=== PATIENT | female | born 1960 | race African-American/Black ===

== ENCOUNTER → 2020-01-21 15:13 | Outpatient (BNVA) | payer OTHER, SELFPAY | PROVIDERS: PCP Nurse Practitioner Family; Referring Provider Nurse Practitioner Family; Visit Provider Student in an Organized Health Care Education/Training Program | DX: M79.7 Fibromyalgia (principal) | CPT/HCPCS: 99214 ==

== ENCOUNTER 2020-01-24 10:21 | Outpatient (REF) | payer OTHER, SELFPAY ==
[2020-01-24 12:37] LABS: Glucose Urine UA NEG (NEG); Leukocyte Esterase Urine NEG (NEG); Nitrite Urine NEG (NEG); PH 5.5 (5.0-8.0); Specific Gravity - Urine >= 1.030 (1.005-1.025); Urine Blood NEG (NEG); Urine Ketones NEG (NEG); Urine Protein NEG (NEG-TRACE)
[2020-01-24 12:41] LABS: Appearance Urine CLEAR; Color Urine YELLOW
[2020-01-24 12:41] LABS: Basophils Absolute Auto 0.1 X10*3/uL (0.0-0.2); Basophils Percent Auto 1.2 % (0-2); Eosinophils Absolute Auto 0.3 X10*3/uL (0.0-0.4); Eosinophils Percent Auto 5.5 % (0-4); Hematocrit 40.7 % (37-47); Hemoglobin 12.7 g/dl (12.0-16.0); Imm Gran Abs Auto 0.02 X10*3/uL (0.00-0.03); Imm Gran Pct Auto 0.3 % (0.0-0.4); Lymphocytes Absolute Auto 2.4 X10*3/uL (1.2-4.9); Lymphocytes Percent Auto 40.9 % (20-40); MANUAL DIFF FLAG NO; Mean Corpuscular HGB Conc 31.2 g/dl (31.0-35.0); Mean Corpuscular Hemoglobin 30.2 pg (27.0-33.0); Mean Corpuscular Volume 96.9 fL (80-98); Mean Platelet Volume 10.4 fL (9.4-12.3); Monocytes Absolute Auto 0.6 X10*3/uL (0.1-1.2); Monocytes Percent Auto 9.6 % (2-11); Neutrophils Absolute Auto 2.5 X10*3/uL (2.0-8.3); Neutrophils Percent Auto 42.5 % (45-73); Platelet Count 292 X10*3/uL (160-400); Red Cell Distribution Width 14.4 % (11.0-16.0); White Blood Count 5.8 X10*3/uL (4.8-10.8)
[2020-01-24 12:57] LABS: RBC Urine 0 /HPF (0); Squamous Epithelial Cell Urine 1+ /LPF; WBC Urine 0-2 /HPF (0-4)
[2020-01-24 13:06] LABS: Creatinine Urine 106.97 mg/dL; Protein/Creatinine Ratio, Ur 0.09 (<0.2); Total Protein Urine Random 10 mg/dL (<12)
[2020-01-24 13:08] LABS: Creatinine Urine 106.56 mg/dL; Microalbum/Creatinine Ratio Ur 23.4 ug/mg cr; Total Protein Urine Random 10 mg/dL (<12)
[2020-01-24 13:41] LABS: Anion Gap 18 (12-20); Blood Urea Nitrogen 19 mg/dL (9-16); Calcium 9.7 mg/dL (8.4-10.2); Carbon Dioxide 25 mmol/L (22-29); Chloride 102 mmol/L (96-108); Estimated Glomerular Filt Rate 60; Magnesium 1.8 mg/dL (1.6-2.6); Phosphorus 3.4 mg/dL (2.7-4.5); Potassium 4.8 mmol/l (3.3-5.1); Sodium 140 mmol/L (135-145)
[2020-01-24 14:03] LABS: Vitamin D 25-OH Total 45.9 ng/mL (>30)
[2020-01-24 14:45] LABS: Renal w Reflex Lab Use Only Order verified
[2020-01-27 14:56] LABS: Complement C3 211 mg/dL (83-193); IgA 252 mg/dL (47-310); IgG 1105 mg/dL (600-1640); IgM 63 mg/dL (50-300)
[2020-01-27 20:21] LABS: Calcium (PTHI) 10.2 mg/dL (8.6-10.4); PTHI 17 pg/mL (14-64)
[2020-01-28 11:22] LABS: Anti Nuclear Antibody Screen NEGATIVE (NEGATIVE)
[2020-01-28 14:53] LABS: ANA Additional Testing NOT INDICATED
== END 2020-01-24 10:22 | disposition home or self-care (01) ==
LOC: HO.LAB 10:21
PROVIDERS: Visit Provider Internal Medicine Nephrology
DX: E11.22 Type 2 diabetes mellitus with diabetic chronic kidney disease (principal); N18.30 Chronic kidney disease, stage 3 unspecified; E78.5 Hyperlipidemia, unspecified; R94.4 Abnormal results of kidney function studies
CPT/HCPCS: 36415; 80051; 81001; 81003; 81015; 82040; 82043; 82306; 82310; 82565; 82784; 83735; 83970; 84100; 84156; 84520; 85025; 86038; 86039; 86160; 86334

== ENCOUNTER 2020-03-10 16:23 | Outpatient (REF) | payer OTHER, SELFPAY ==
[2020-03-10 16:51] LABS: Basophils Absolute Auto 0.1 X10*3/uL (0.0-0.2); Eosinophils Absolute Auto 0.3 X10*3/uL (0.0-0.4); Eosinophils Percent Auto 4.5 % (0-4); Hematocrit 39.3 % (37-47); Hemoglobin 12.2 g/dl (12.0-16.0); Imm Gran Abs Auto 0.07 X10*3/uL (0.00-0.03); Imm Gran Pct Auto 1.1 % (0.0-0.4); Lymphocytes Absolute Auto 2.6 X10*3/uL (1.2-4.9); Lymphocytes Percent Auto 41.7 % (20-40); MANUAL DIFF FLAG NO; Mean Corpuscular Hemoglobin 30.6 pg (27.0-33.0); Mean Corpuscular Volume 98.5 fL (80-98); Mean Platelet Volume 9.6 fL (9.4-12.3); Monocytes Absolute Auto 0.6 X10*3/uL (0.1-1.2); Monocytes Percent Auto 9.1 % (2-11); Neutrophils Absolute Auto 2.7 X10*3/uL (2.0-8.3); Neutrophils Percent Auto 42.6 % (45-73); Platelet Count 262 X10*3/uL (160-400); Red Blood Count 3.99 X10*6/uL (4.20-5.50); Red Cell Distribution Width 13.9 % (11.0-16.0); White Blood Count 6.3 X10*3/uL (4.8-10.8)
[2020-03-10 16:57] LABS: INTERNATIONAL NORM RATIO 1.1 (0.9-1.1)
[2020-03-10 17:22] LABS: Alanine Aminotransferase 28 U/L (0-31); Albumin Level 4.7 g/dL (3.5-5.0); Alkaline Phosphatase 89 U/L (39-117); Anion Gap 15 (12-20); Aspartate Amino Transferase 33 U/L (5-31); Bilirubin Total 0.3 mg/dL (0.0-1.0); Blood Urea Nitrogen 20 mg/dL (9-16); Calcium 9.4 mg/dL (8.4-10.2); Carbon Dioxide 23 mmol/L (22-29); Chloride 105 mmol/L (96-108); Estimated Glomerular Filt Rate > 60; Glucose Random 96 mg/dL (60-115); Iron 103 mcg/dL (30-160); Percent Iron Saturation 18 % (15-50); Potassium 4.8 mmol/l (3.3-5.1); Sodium 138 mmol/L (135-145); Total Iron Binding Capacity 582 mcg/dL (228-428); Total Protein 7.9 g/dL (6.5-8.0); Unsaturated Iron Binding 479 ug/dL
[2020-03-10 17:48] LABS: Ferritin 73 ng/mL (10-250)
== END 2020-03-10 16:24 | disposition home or self-care (01) ==
LOC: HO.LAB 16:23
PROVIDERS: Visit Provider Internal Medicine Gastroenterology
DX: K75.81 Nonalcoholic steatohepatitis (NASH) (principal)
CPT/HCPCS: 36415; 80053; 82728; 83540; 85025; 85610

== ENCOUNTER → 2020-03-12 08:31 | Outpatient (BNVA) | payer OTHER, SELFPAY | PROVIDERS: Visit Provider Internal Medicine Gastroenterology | DX: K21.9 Gastro-esophageal reflux disease without esophagitis (principal); R13.14 Dysphagia, pharyngoesophageal phase; K58.9 Irritable bowel syndrome, unspecified; K75.81 Nonalcoholic steatohepatitis (NASH); F17.210 Nicotine dependence, cigarettes, uncomplicated; Z86.010 Personal history of colon polyps; Z79.899 Other long term (current) drug therapy; Z79.84 Long term (current) use of oral hypoglycemic drugs | CPT/HCPCS: Q3014 ==

== ENCOUNTER 2020-04-20 07:57 | Outpatient (REF) | payer OTHER, SELFPAY ==
--- NOTE | 2020-04-20 | MM_ITS ---
EXAMINATION: MM SCREENING DIGITAL BREAST TOMOSYNTHESIS, BILATERAL CLINICAL INFORMATION: Screening. Asymptomatic. The lifetime risk of breast cancer based on the Tyrer-Cuzick Model is 5%. COMPARISON: Mammography: 11/22/2018, 11/13/2018, 03/01/2012 TECHNIQUE: Digital breast tomosynthesis is performed in both the craniocaudal and mediolateral oblique views along with computer-aided detection (CAD). Synthesized 2D images are generated from the tomosynthesis. FINDINGS: There are scattered areas of fibroglandular density (ACR BI-RADS breast composition Category b). There are no significant masses, abnormal calcifications, or other abnormalities. Parenchymal pattern similar to prior studies. The axilla are unremarkable. MM/MM tomosynthesis screening BI IMPRESSION: No mammographic evidence of malignancy. ASSESSMENT: BI-RADS 1: Negative RECOMMENDATION: Routine annual mammography screening. This patient's information was entered into a reminder system with a target due date for their next mammogram.
== END 2020-04-20 07:58 | disposition home or self-care (01) ==
LOC: HO.MAMMO 07:57
PROVIDERS: Visit Provider Advanced Practice Midwife
DX: Z12.31 Encounter for screening mammogram for malignant neoplasm of breast (principal)
CPT/HCPCS: 77063; 77067

== ENCOUNTER → 2020-05-15 15:47 | Outpatient (BNVA) | payer OTHER, SELFPAY | PROVIDERS: Visit Provider Urology | DX: R39.12 Poor urinary stream (principal); R39.11 Hesitancy of micturition | CPT/HCPCS: 51798; 99202 ==

== ENCOUNTER 2020-05-29 11:20 | Outpatient (REF) | payer OTHER, SELFPAY ==
--- NOTE | ~2020-05-29 | XR_ITS ---
EXAMINATION: XR SHOULDER, RIGHT CLINICAL INFORMATION: Pain COMPARISON: None TECHNIQUE: AP external rotation, Grashey, scapular Y, and axillary views of the right shoulder. FINDINGS: The bones and soft tissues are normal. No fracture. Glenohumeral and acromioclavicular alignment is anatomic with normal joint space. No abnormal soft tissue calcifications. XR/XR shoulder RT min 2V IMPRESSION: Normal right shoulder.
== END 2020-05-29 11:21 | disposition home or self-care (01) ==
LOC: HO.XRAY 11:20
PROVIDERS: PCP Family Medicine; Visit Provider Family Medicine
DX: M25.511 Pain in right shoulder (principal)
CPT/HCPCS: 73030

== ENCOUNTER → 2020-06-25 08:48 | Outpatient (BNVA) | payer OTHER, SELFPAY | PROVIDERS: PCP Family Medicine; Visit Provider Urology | DX: R39.12 Poor urinary stream (principal); R33.9 Retention of urine, unspecified | CPT/HCPCS: 51798; 52000; 81002; 99212 ==

== ENCOUNTER → 2020-07-02 09:11 | Outpatient (BNVA) | payer OTHER, SELFPAY | PROVIDERS: PCP Nurse Practitioner Family; Referring Provider Nurse Practitioner Family; Visit Provider Internal Medicine Gastroenterology | DX: R13.14 Dysphagia, pharyngoesophageal phase (principal); K58.9 Irritable bowel syndrome, unspecified; K21.9 Gastro-esophageal reflux disease without esophagitis; K75.81 Nonalcoholic steatohepatitis (NASH); Z86.010 Personal history of colon polyps; Z79.899 Other long term (current) drug therapy | CPT/HCPCS: 99212 ==

== ENCOUNTER 2020-07-30 09:59 | Outpatient (REF) | payer OTHER, SELFPAY ==
[2020-07-30 11:04] LABS: Blood Urea Nitrogen 30 mg/dL (9-16); C Reactive Protein 0.21 mg/dL (< or = 0.50); Estimated Glomerular Filt Rate 44
[2020-07-30 12:25] LABS: Erythrocyte Sedimentation Rate 9 MM/HR (0-20)
== END 2020-07-30 10:00 | disposition home or self-care (01) ==
LOC: HO.LAB 09:59
PROVIDERS: PCP Family Medicine; Visit Provider Internal Medicine Gastroenterology
DX: K58.9 Irritable bowel syndrome, unspecified (principal)
CPT/HCPCS: 36415; 81479; 82397; 82565; 83520; 84520; 85652; 86140; 88346; 88350

== ENCOUNTER 2020-07-30 11:00 | Outpatient (RCR) | payer OTHER, SELFPAY | END 2020-08-05 17:59 | disposition home or self-care (01) | LOC: HO.PT 11:00 | PROVIDERS: PCP Family Medicine; Visit Provider Family Medicine | DX: M25.511 Pain in right shoulder (principal) | CPT/HCPCS: 97110; 97161 ==

== ENCOUNTER 2020-08-05 16:01 | Outpatient (REF) | payer OTHER, SELFPAY ==
[2020-08-05 16:47] LABS: Leukocytes Stool Qualitative NEGATIVE (NEGATIVE)
[2020-08-12 00:42] LABS: Calprotectin, Fecal 92 mcg/g
== END 2020-08-05 16:02 | disposition home or self-care (01) ==
LOC: HO.LNP 16:01
PROVIDERS: Visit Provider Internal Medicine Gastroenterology
DX: K58.9 Irritable bowel syndrome, unspecified (principal)
CPT/HCPCS: 83993; 89055

== ENCOUNTER 2020-08-06 14:04 | Outpatient (REF) | payer OTHER, SELFPAY ==
--- NOTE | ~2020-08-06 | CT_ITS ---
EXAMINATION: CT ABDOMEN AND PELVIS WITH CONTRAST CLINICAL INFORMATION: Irritable bowel syndrome without diarrhea. COMPARISON: Previous abdominal ultrasound most recent 05/16/2019. TECHNIQUE: Multidetector volumetric images were obtained from the superior aspect of the liver through the pubic symphysis following administration 85 mL of Omnipaque 350 intravenous contrast. Sagittal and coronal reformatted images were obtained on the technologist's workstation. Oral contrast: Yes. This CT examination was performed using dose optimization techniques as appropriate, variously including the following: Automated exposure control. Adjustment of mA and/or kV according to patient size (this includes techniques or standardized protocols for targeted exams where dose is matched to indication/reason for exam; i.e. extremities or head). Use of iterative reconstruction technique. DLP: 524 mGy-cm FINDINGS: LUNG BASES: The visualized lung bases are unremarkable. LIVER, GALLBLADDER, AND BILIARY TREE: The liver is enlarged. The liver is low in attenuation suggestive of fatty infiltration. There is hypertrophy of the left lobe and caudate lobe questionable for mild cirrhotic changes. There is a calcification in the central liver near the junction of the medial segment of the left lobe and anterior segment of the right lobe. No other focal liver lesion is seen. The gallbladder has been removed. There is no biliary duct dilatation. PANCREAS: Unremarkable. SPLEEN: Unremarkable. ADRENAL GLANDS: Unremarkable. KIDNEYS AND URETERS: The kidneys are normal in size, shape, and attenuation. No hydronephrosis, hydroureter, or calculi seen. No perinephric stranding. BLADDER: Not optimally distended. GASTROINTESTINAL TRACT: There is diverticulosis of the colon. There is stool throughout the colon questionable for constipation. Small and large bowel is otherwise unremarkable. The appendix is normal. The stomach is normal. ABDOMINAL WALL: There is diastasis of the rectus muscles and small umbilical and infraumbilical hernia containing fat. LYMPH NODES: Normal. VASCULAR: Unremarkable. PELVIC VISCERA: There are prominent pelvic vessels questionable for pelvic congestion. Uterus and adnexa are otherwise unremarkable. OSSEOUS STRUCTURES: There are degenerative changes of the spine. CT/CT abdomen pelvis w con IMPRESSION: Enlarged fatty liver with changes of mild cirrhosis. Diverticulosis and large amount of stool in the colon suggestive of constipation. Prominent pelvic vessels questionable for pelvic congestion. Abdominal wall hernias.
[2020-08-06] MEDS: iohexoL 350 MG/ML 100 ML INFUS..BTL IV (16:55)
== END 2020-08-06 14:05 | disposition home or self-care (01) ==
LOC: HO.CT 14:04
PROVIDERS: PCP Family Medicine; Visit Provider Internal Medicine Gastroenterology
DX: K58.9 Irritable bowel syndrome, unspecified (principal); K75.81 Nonalcoholic steatohepatitis (NASH)
CPT/HCPCS: 74177; Q9967

== ENCOUNTER → 2020-08-27 11:12 | Outpatient (BNVA) | payer OTHER, SELFPAY | PROVIDERS: PCP Family Medicine; Visit Provider Urology | DX: Z13.89 Encounter for screening for other disorder (principal) | CPT/HCPCS: 99212 ==

== ENCOUNTER → 2020-09-10 12:58 | Outpatient (BNVA) | payer OTHER, SELFPAY | PROVIDERS: PCP Family Medicine; Referring Provider Family Medicine; Visit Provider Internal Medicine Gastroenterology | DX: K58.9 Irritable bowel syndrome, unspecified (principal); K75.81 Nonalcoholic steatohepatitis (NASH); K21.9 Gastro-esophageal reflux disease without esophagitis; R13.14 Dysphagia, pharyngoesophageal phase; Z86.010 Personal history of colon polyps | CPT/HCPCS: 99212 ==

== ENCOUNTER 2020-10-07 13:39 | Emergency (ER) | payer OTHER, SELFPAY ==
--- NOTE | 2020-10-07 | ECG_ITS ---
Test Reason : DIFF BREATHING Blood Pressure : / mmHG Vent. Rate : 127 BPM Atrial Rate : 127 BPM P-R Int : 136 ms QRS Dur : 072 ms QT Int : 308 ms P-R-T Axes : 051 016 033 degrees QTc Int : 447 ms Sinus tachycardia Possible Left atrial enlargement Cannot rule out Anterior infarct , age undetermined Abnormal ECG When compared with ECG of 18-MAY-2019 08:35, Vent. rate has increased BY 72 BPM T wave amplitude has decreased in Lateral leads Referred By: Generic ED Physician Electronically Signed By:LISA JARRETT
--- NOTE | ~2020-10-07 | XR_ITS ---
EXAMINATION: XR CHEST CLINICAL INFORMATION: Shortness of breath COMPARISON: Previous chest x-ray most recent May 2019 TECHNIQUE: 2 views of the chest were obtained. FINDINGS: The cardiac and mediastinal contours are stable. The lungs are clear. There is no pleural effusion or pneumothorax. There is a thoracic scoliosis convex to the left. There are postsurgical changes to the cervical spine. XR/XR chest 2V IMPRESSION: No evidence for acute disease in the chest.
[2020-10-07 13:42] VITALS: BP 183/86; PULSE 135; RESP 24; TEMP 37.7; O2SAT 86; BMI 32.2
--- NOTE | 2020-10-07 13:57 | ED_ITS ---
HPI - SOB/Dyspnea General Chief Complaint: Dyspnea Stated Complaint: DIFF BREATHING Time Seen by Provider: 10/07/20 13:57 Source: patient Mode of arrival: ambulatory Limitations: no limitations History of Present Illness HPI Narrative: Increasing shortness of breath for 3 days, now wheezing getting worse. Patient is a smoker, Never been told that she has COPD. Patient is vaccinated. MD elicited complaint: shortness of breath and cough Onset (ago): day(s) Timing: constant Severity: moderate Exacerbating factors: exertion Relieving factors: rest Associated symptoms: cough and wheezing Related Data Home Medications Medication Instructions Recorded Confirmed atorvastatin 40 mg tablet 40 mg PO DAILY 01/21/20 09/10/20 duloxetine 30 mg capsule,delayed 30 mg PO DAILY 01/21/20 09/10/20 release fenofibrate micronized 134 mg 134 mg PO DAILY 01/21/20 09/10/20 capsule hydroxyzine HCl 25 mg tablet 25 mg PO TID PRN 01/21/20 09/10/20 lisinopril 2.5 mg tablet 2.5 mg PO DAILY 01/21/20 09/10/20 metformin 1,000 mg tablet 1,000 mg PO BID 01/21/20 09/10/20 vitamin E (dl, acetate) 400 unit 400 unit PO DAILY 01/21/20 09/10/20 capsule albuterol sulfate 90 mcg/actuation 2 puff PO Q4-6H PRN 06/25/20 09/10/20 aerosol inhaler blood sugar diagnostic #10 ea 06/25/20 09/10/20 cholecalciferol (vitamin D3) 50 50 mcg PO DAILY 06/25/20 09/10/20 mcg (2,000 unit) capsule diclofenac sodium 1 % topical gel 2 g TOPICAL QID 06/25/20 09/10/20 guaifenesin 600 mg tablet, 600 mg PO Q12H PRN 06/25/20 09/10/20 extended release 12 hr hydroxyzine HCl 50 mg tablet 50 mg PO BID PRN 06/25/20 09/10/20 metformin 500 mg tablet 500 mg PO BID 06/25/20 09/10/20 mirtazapine 45 mg tablet 45 mg PO BEDTIME 06/25/20 09/10/20 nicotine 21 mg/24 hr daily 1 patch TOPICAL DAILY 06/25/20 09/10/20 transdermal patch omeprazole 20 mg capsule,delayed 20 mg PO BID 06/25/20 09/10/20 release tizanidine 2 mg tablet 6 mg PO Q12H PRN 06/25/20 09/10/20 simethicone 125 mg chewable tablet 250 mg PO BID PRN 07/02/20 09/10/20 duloxetine 60 mg capsule,delayed mg PO 08/27/20 09/10/20 release ibuprofen 600 mg tablet 600 mg PO QID PRN 08/27/20 09/10/20 quetiapine 25 mg tablet 25 mg PO BEDTIME 08/27/20 09/10/20 quetiapine 50 mg tablet 50 mg PO BEDTIME 08/27/20 09/10/20 sennosides 8.6 mg tablet 17.2 mg PO BEDTIME PRN 08/27/20 09/10/20 vitamin E (dl, acetate) 45 mg (100 0 mg PO 08/27/20 09/10/20 unit) capsule Previous Rx's Medication Instructions Recorded terazosin 1 mg capsule 1 mg PO BEDTIME 30 Days #30 cap 05/15/20 pregabalin 75 mg capsule 75 mg PO TID #90 cap 07/24/20 sennosides 8.6 mg capsule 17.2 mg PO BID PRN 30 Days #60 cap 08/13/20 ondansetron HCl 8 mg tablet 8 mg PO Q12H 30 Days #60 tab 08/24/20 bethanechol chloride 50 mg tablet 50 mg PO BID 90 Days #180 tab 08/27/20 dicyclomine 20 mg tablet 20 mg PO TID 30 Days #90 tab 09/09/20 hyoscyamine sulfate 0.125 mg 0.25 mg PO TID-QID PRN 30 Days #60 09/10/20 sublingual tablet tab omeprazole magnesium 20 mg 20 mg PO BID 30 Days #60 cap 09/14/20 capsule,delayed release methylcellulose (laxative) 500 mg 1,000 mg PO DAILY 30 Days #60 tab 09/22/20 tablet albuterol sulfate 2 puff INHALATION Q4-6H PRN #8.5 g 10/07/20 prednisone 60 mg PO DAILY #12 tab 10/07/20 Allergies Allergy/AdvReac Type Severity Reaction Status Date / Time oxycodone [Percocet] Allergy Intermediate Itching Verified 10/07/20 13:41 Vicodin Allergy Intermediate itching Uncoded 01/21/20 15:29 Review of Systems Constitutional: Constitutional: Reports no additional constitutional complai nts Eyes: Eyes: Reports no additional eye complaints ENT: Denies dizziness Cardiovascular: Cardiovascular: Reports no additional cardiovascular complaints Respiratory: Respiratory: Reports as per HPI Gastrointestinal: Gastrointestinal: Reports no additional gastrointestinal complaints Genitourinary: Genitourinary: Reports no additional female genitourinary complaints Musculoskeletal: Musculoskeletal: Reports no additional musculoskeletal complaints Integumentary/Breasts: Skin/Breast: Denies rash Neurologic: Reports system reviewed and no additional complaints, except as documented, Denies dizziness and Denies Sensory deficit (Neuro) Psychiatric: Psychiatric: Denies anxiety PMFSH Past Medical History Medical History Depression Diabetes mellitus Fibromyalgia Hx of hereditary disease Surgical History History of colonoscopy Hx of cholecystectomy Hx of endoscopy Hx of total knee replacement Hx of tubal ligation Family History Family History Father History of heart attack Hx of type 1 diabetes mellitus Mother Alive and well Social History Social History Household Members: Spouse Housing: Apartment Alcohol intake: never Cigarettes Per Day: 4 Smoked in Last 30 Days: No Use of substances other than those prescribed or required for medical reasons: No Advance Directives: No Advance Directives Information Provided: No Patient : No Physical Exam Vital Signs: Vital Signs: Last Vital Signs Temp 99.8 F 10/07/20 13:42 Pulse 124 H 10/07/20 15:43 Resp 24 H 10/07/20 13:42 BP 183/86 H 10/07/20 13:42 Pulse Ox 86 L 10/07/20 13:42 Body Mass Index 32.2 Const: Other: short of breath Nutritional Appearance: overweight Orientation/consciousness: oriented to person and patient oriented x3 Limitations: no limitations HENMT: Head: Yes normal to inspection Ears: external ears normal General nose exam: Normal external nose present Mouth: Normal oral and palatal mucosa present and oropharynx normal Throat: Yes posterior oropharynx normal Eyes: General: appearance normal, both eyes and all related structures Neck: Other: supple Neck: Yes normal visual inspection Chest: Chest palpation & inspection: normal inspection of the chest Resp: Other: diffuse wheezing Cardio: Jugular venous distension: no JVD Rate: regular rate Rhythm: regular rhythm Heart sounds: S1 normal heart sound present and S2 normal heart sound present GI: Inspection: Yes normal to inspection Palpation (GI): Soft to palpation, nontender and No hepatosplenomegaly present Auscultation: normal bowel sounds : General: Yes no CVA tenderness Back/Spine/Pelvis: Back: no CVA tenderness Skin: General skin exam: no rashes or lesions noted Neuro: General: oriented to person and patient oriented x3 Cranial nerves: Yes CN's II-XII intact bilaterally Motor exam (neuro): 5/5 motor strength present throughout Sensory Exam: No Sensory deficit (Neuro) Extrem: General: Yes normal to inspection Psych: Appearance: grossly normal Course Reevaluation(s) Reevaluation #1: moving better air but worse wheezing Time: 15:17 Reevaluation #2: no wheeze will dc home Time: 16:13 MDM - SOB/Dyspnea Lab Data Result diagrams: 10/07/20 14:25 10/07/20 14:25 Labs: Lab Results 10/07/20 10/07/20 10/07/20 Range/Units 14:19 14:25 14:25 WBC 10.9 H (4.8-10.8) X10*3/uL RBC 3.93 L (4.20-5.50) X10*6/uL Hgb 11.5 L (12.0-16.0) g/dl Hct 36.3 L (37-47) % MCV 92.4 (80-98) fL MCH 29.3 (27.0-33.0) pg MCHC 31.7 (31.0-35.0) g/dl RDW 13.8 (11.0-16.0) % Plt Count 259 (160-400) X10*3/uL MPV 10.1 (9.4-12.3) fL Immature Gran % (Auto) 0.7 H (0.0-0.4) % Neut % (Auto) 75.7 H (45-73) % Lymph % (Auto) 14.3 L (20-40) % [place] % (Auto) 8.5 (2-11) % Eos % (Auto) 0.5 (0-4) % Baso % (Auto) 0.3 (0-2) % Lymph # (Auto) 1.6 (1.2-4.9) X10*3/uL [place] # (Auto) 0.9 (0.1-1.2) X10*3/uL Eos # (Auto) 0.1 (0.0-0.4) X10*3/uL Baso # (Auto) 0.0 (0.0-0.2) X10*3/uL Abs Immat Gran (auto) 0.08 H (0.00-0.03) X10*3/uL Absolute Neuts (auto) 8.3 (2.0-8.3) X10*3/uL Absolute Nucleated RBC 0.000 (0.0-0.012) X10*3/uL Nucleated RBC % (auto) 0.0 (0.0-0.2) /100WBC Sodium 142 (135-145) mmol/L Potassium 4.4 (3.3-5.1) mmol/L Chloride 110 H (96-108) mmol/L Carbon Dioxide 19 L (22-29) mmol/L Anion Gap 17 (12-20) BUN 23 H (9-16) mg/dL Creatinine 0.86 (0.5-1.4) mg/dL Estim Creat Clear Calc 71.7 Estimated GFR > 60 Random Glucose 128 H (60-115) mg/dL Calcium 9.9 (8.4-10.2) mg/dL Coronavirus (PCR) NEGATIVE (Negative) Influenza Type A (PCR) NEGATIVE (Negative) Influenza Type B (PCR) NEGATIVE (Negative) RSV RNA Qual (PCR) NEGATIVE (Negative) Imaging Data Chest x-ray: Radiologist's impression: IMPRESSION: No evidence for acute disease in the chest Discharge Plan Discharge Clinical Impression: Asthma with exacerbation Qualifiers: Asthma severity: moderate Asthma persistence: persistent Qualified Code(s): J45.41 - Moderate persistent asthma with (acute) exacerbation Patient Disposition: Home, Self-Care Instructions: Asthma (ED) Prescriptions: New albuterol sulfate 90 mcg/actuation HFA aerosol inhaler 2 puff inhalation Q4-6H PRN (Reason: shortness of breath or wheezing) Qty: 8.5 RF: 0 prednisone 20 mg tablet 60 mg PO DAILY Qty: 12 RF: 0 No Action pregabalin 75 mg capsule 75 mg PO TID Qty: 90 RF: 5 senna 8.6 mg capsule 17.2 mg PO BID PRN (Reason: constipation) 30 Days Qty: 60 RF: 3 ondansetron HCl 8 mg tablet 8 mg PO Q12H 30 Days Qty: 60 RF: 2 dicyclomine 20 mg tablet 20 mg PO TID 30 Days Qty: 90 RF: 0 omeprazole magnesium [Acid Experiential Therapist (omeprazole)] 20 mg capsule,delayed release(DR/EC) 20 mg PO BID 30 Days Qty: 60 RF: 4 Fiber Laxative (methylcellulo) 500 mg tablet 1,000 mg PO DAILY 30 Days Qty: 60 RF: 2 simethicone [Gas Relief (simethicone)] 125 mg tablet,chewable 250 mg PO BID PRNRF: 0 sennosides 8.6 mg tablet 17.2 mg PO BEDTIME PRN (Reason: constipation) RF: 0 ibuprofen 600 mg tablet 600 mg PO QID PRN (Reason: pain) RF: 0 quetiapine 50 mg tablet 50 mg PO BEDTIME RF: 0 duloxetine 60 mg capsule,delayed release(DR/EC) PO RF: 0 quetiapine 25 mg tablet 25 mg PO BEDTIME RF: 0 vitamin E (dl, acetate) 45 mg (100 unit) capsule 0 mg PO RF: 0 bethanechol chloride 50 mg tablet 50 mg PO BID 90 Days Qty: 180 RF: 1 hyoscyamine sulfate 0.125 mg tablet, sublingual 0.25 mg PO TID-QID PRN (Reason: dyspepsia) 30 Days Qty: 60 RF: 3 duloxetine 30 mg capsule,delayed release(DR/EC) 30 mg PO DAILY RF: 0 lisinopril 2.5 mg tablet 2.5 mg PO DAILY RF: 0 vitamin E (dl, acetate) 400 unit capsule 400 unit PO DAILY RF: 0 hydroxyzine HCl 25 mg tablet 25 mg PO TID PRNRF: 0 metformin 1,000 mg tablet 1,000 mg PO BID RF: 0 fenofibrate micronized 134 mg capsule 134 mg PO DAILY RF: 0 atorvastatin 40 mg tablet 40 mg PO DAILY RF: 0 terazosin 1 mg capsule 1 mg PO BEDTIME 30 Days Qty: 30 RF: 0 omeprazole 20 mg capsule,delayed release(DR/EC) 20 mg PO BID RF: 0 (DME) FreeStyle Lite Strips Strip See Rx Instructions ea Not Applicable BID Qty: 10 RF: 0 mirtazapine 45 mg tablet 45 mg PO BEDTIME RF: 0 hydroxyzine HCl 50 mg tablet 50 mg PO BID PRN (Reason: anxiety) RF: 0 tizanidine 2 mg tablet 6 mg PO Q12H PRNRF: 0 cholecalciferol (vitamin D3) 50 mcg (2,000 unit) capsule 50 mcg PO DAILY RF: 0 diclofenac sodium 1 % gel 2 g topical QID RF: 0 nicotine 21 mg/24 hr patch 24 hour 1 patch topical DAILY RF: 0 metformin 500 mg tablet 500 mg PO BID RF: 0 albuterol sulfate 90 mcg/actuation HFA aerosol inhaler 2 puff PO Q4-6H PRNRF: 0 guaifenesin 600 mg tablet extended release 12hr 600 mg PO Q12H PRNRF: 0 Referrals: Reina Farmer MD [Primary Care Provider] - 3 days
[2020-10-07] MEDS: Albuterol/Iprat 2.5/0.5MG 3 ML AMPUL.NEB INHALE (14:16)
[2020-10-07 14:20] VITALS: PULSE 128; O2SAT 91
[2020-10-07] MEDS: methylPREDNISolone Sod Succ 125 MG/2 ML VIAL IVPUSH (14:27)
[2020-10-07 14:33] LABS: MANUAL DIFF FLAG NO
[2020-10-07 14:34] LABS: Basophils Percent Auto 0.3 % (0-2); Eosinophils Absolute Auto 0.1 X10*3/uL (0.0-0.4); Eosinophils Percent Auto 0.5 % (0-4); Hematocrit 36.3 % (37-47); Hemoglobin 11.5 g/dl (12.0-16.0); Imm Gran Abs Auto 0.08 X10*3/uL (0.00-0.03); Imm Gran Pct Auto 0.7 % (0.0-0.4); Lymphocytes Absolute Auto 1.6 X10*3/uL (1.2-4.9); Lymphocytes Percent Auto 14.3 % (20-40); Mean Corpuscular HGB Conc 31.7 g/dl (31.0-35.0); Mean Corpuscular Hemoglobin 29.3 pg (27.0-33.0); Mean Corpuscular Volume 92.4 fL (80-98); Mean Platelet Volume 10.1 fL (9.4-12.3); Monocytes Absolute Auto 0.9 X10*3/uL (0.1-1.2); Monocytes Percent Auto 8.5 % (2-11); Neutrophils Absolute Auto 8.3 X10*3/uL (2.0-8.3); Neutrophils Percent Auto 75.7 % (45-73); Platelet Count 259 X10*3/uL (160-400); Red Blood Count 3.93 X10*6/uL (4.20-5.50); Red Cell Distribution Width 13.8 % (11.0-16.0); White Blood Count 10.9 X10*3/uL (4.8-10.8)
[2020-10-07 15:02] LABS: Anion Gap 17 (12-20); Blood Urea Nitrogen 23 mg/dL (9-16); Calcium 9.9 mg/dL (8.4-10.2); Carbon Dioxide 19 mmol/L (22-29); Chloride 110 mmol/L (96-108); Creatinine Clr Calc Pharmacy 71.7; Estimated Glomerular Filt Rate > 60; Glucose Random 128 mg/dL (60-115); Potassium 4.4 mmol/L (3.3-5.1); Sodium 142 mmol/L (135-145)
[2020-10-07 15:16] LABS: Influenza A PCR NEGATIVE (Negative); Influenza B PCR NEGATIVE (Negative); Resp Syncy Virus RNA Qual PCR NEGATIVE (Negative); SARS COV2 PCR INHOUSE NEGATIVE (Negative)
[2020-10-07] MEDS: Albuterol Sulfate (0.083%) 2.5 MG/3 ML VIAL.NEB 10 MG INHALE (15:39)
[2020-10-07 15:43] VITALS: PULSE 124; O2SAT 90
== END 2020-10-07 16:34 | disposition home or self-care (01) ==
PROVIDERS: Emergency Provider Emergency Medicine; PCP Family Medicine
DX: J45.41 Moderate persistent asthma with (acute) exacerbation (principal); R00.0 Tachycardia, unspecified; E11.9 Type 2 diabetes mellitus without complications; Z79.84 Long term (current) use of oral hypoglycemic drugs; Z79.899 Other long term (current) drug therapy; Z20.822 Contact with and (suspected) exposure to COVID-19
CPT/HCPCS: 0241U; 36415; 71046; 80048; 85025; 93005; 94640; 94644; 96374; 99284; J2930

== ENCOUNTER 2020-10-16 16:35 | Inpatient (IN) | payer OTHER, SELFPAY ==
--- NOTE | ~2020-10-16 | CT_ITS ---
EXAMINATION: CT ANGIOGRAM OF THE CHEST WITH AND WITHOUT CONTRAST (CT PULMONARY ANGIOGRAM FOR PE) CLINICAL INFORMATION: Reason for Exam Shortness of breath, no history of asthma. COMPARISON: X-ray of the chest 10/07/2020 TECHNIQUE: Prior to contrast administration, noncontrast localization images were obtained. Subsequently, multidetector volumetric imaging was performed from the thoracic inlet to below the diaphragms following the administration of 65 mL Omnipaque 350 intravenous contrast. No contrast reaction reported Sagittal, coronal, and MIP oblique sagittal reformatted images were obtained on the CT workstation, uploaded to PACS, and reviewed. This CT examination was performed using dose optimization techniques as appropriate, variously including the following: *Automated exposure control *Adjustment of mA and/or kV according to patient size (this includes techniques or standardized protocols for targeted exams where dose is matched to indication/reason for exam; i.e. extremities or head) *Use of iterative reconstruction technique Total exam dose-length product 268 mGy-cm FINDINGS: The exam is limited because of image degraded by motion artifact. . QUALITY OF STUDY/CONTRAST BOLUS: Satisfactory. PULMONARY ARTERIES: No central or segmental pulmonary emboli. THORACIC AORTA: No aneurysm or dissection. LUNG AND PLEURAL SPACES: There is patchy ground-glass opacity in the right upper lobe. There is scattered tree-in-bud opacity noted throughout much of the right lower lobe. There is dense consolidation in the lower portion of the right lower lobe. In the left lung there is some minimal scattered pleural based thickening likely postinflammatory without significance. MEDIASTINUM: Normal heart size. No pericardial effusion. No hilar or mediastinal lymphadenopathy. No evidence of septal bowing or right heart strain. CHEST WALL/AXILLA: No axillary or internal mammary lymphadenopathy. OSSEOUS STRUCTURES: No acute or suspicious osseous abnormality. UPPER ABDOMEN: Small calcification in the right lobe of liver unchanged. CT/CT angio chest PE protocol IMPRESSION: No evidence for pulmonary embolism. Airspace disease in the right lung most likely reflects multi focal pneumonia most evident in the right lower lobe where there is dense consolidation.
[2020-10-16 16:57] VITALS: BP 119/65; PULSE 106; RESP 28; TEMP 39.3; O2SAT 89; BMI 33.8
--- NOTE | 2020-10-16 17:23 | ED.SOB ---
HPI - SOB/Dyspnea General Chief Complaint: Upper Respiratory Symptoms Stated Complaint: SOB dizzy headache Time Seen by Provider: 10/16/20 17:15 Source: patient Mode of arrival: ambulatory Limitations: no limitations History of Present Illness HPI Narrative: Patient's history of sleep apnea no other known lung condition was seen here on 10/07 for shortness of breath after eating popcorn workup was negative diagnosed with bronchitis/asthma started on prednisone and albuterol inhaler patient is not feeling good since then been feeling short of breath all the time was saturating 89% at room air when she arrived patient feels tightness in the chest had chills at home but no fever on arrival patient had temperature of 102.7 degrees. Cough is mostly dry no expected duration Related Data Home Medications Medication Instructions Recorded Confirmed atorvastatin 40 mg tablet 40 mg PO DAILY 01/21/20 09/10/20 duloxetine 30 mg capsule,delayed 30 mg PO DAILY 01/21/20 09/10/20 release fenofibrate micronized 134 mg 134 mg PO DAILY 01/21/20 09/10/20 capsule hydroxyzine HCl 25 mg tablet 25 mg PO TID PRN 01/21/20 09/10/20 lisinopril 2.5 mg tablet 2.5 mg PO DAILY 01/21/20 09/10/20 metformin 1,000 mg tablet 1,000 mg PO BID 01/21/20 09/10/20 vitamin E (dl, acetate) 400 unit 400 unit PO DAILY 01/21/20 09/10/20 capsule albuterol sulfate 90 mcg/actuation 2 puff PO Q4-6H PRN 06/25/20 09/10/20 aerosol inhaler blood sugar diagnostic #10 ea 06/25/20 09/10/20 cholecalciferol (vitamin D3) 50 50 mcg PO DAILY 06/25/20 09/10/20 mcg (2,000 unit) capsule diclofenac sodium 1 % topical gel 2 g TOPICAL QID 06/25/20 09/10/20 guaifenesin 600 mg tablet, 600 mg PO Q12H PRN 06/25/20 09/10/20 extended release 12 hr hydroxyzine HCl 50 mg tablet 50 mg PO BID PRN 06/25/20 09/10/20 metformin 500 mg tablet 500 mg PO BID 06/25/20 09/10/20 mirtazapine 45 mg tablet 45 mg PO BEDTIME 06/25/20 09/10/20 nicotine 21 mg/24 hr daily 1 patch TOPICAL DAILY 06/25/20 09/10/20 transdermal patch omeprazole 20 mg capsule,delayed 20 mg PO BID 06/25/20 09/10/20 release tizanidine 2 mg tablet 6 mg PO Q12H PRN 06/25/20 09/10/20 simethicone 125 mg chewable tablet 250 mg PO BID PRN 07/02/20 09/10/20 duloxetine 60 mg capsule,delayed mg PO 08/27/20 09/10/20 release ibuprofen 600 mg tablet 600 mg PO QID PRN 08/27/20 09/10/20 quetiapine 25 mg tablet 25 mg PO BEDTIME 08/27/20 09/10/20 quetiapine 50 mg tablet 50 mg PO BEDTIME 08/27/20 09/10/20 sennosides 8.6 mg tablet 17.2 mg PO BEDTIME PRN 08/27/20 09/10/20 vitamin E (dl, acetate) 45 mg (100 0 mg PO 08/27/20 09/10/20 unit) capsule Previous Rx's Medication Instructions Recorded terazosin 1 mg capsule 1 mg PO BEDTIME 30 Days #30 cap 05/15/20 pregabalin 75 mg capsule 75 mg PO TID #90 cap 07/24/20 sennosides 8.6 mg capsule 17.2 mg PO BID PRN 30 Days #60 cap 08/13/20 ondansetron HCl 8 mg tablet 8 mg PO Q12H 30 Days #60 tab 08/24/20 bethanechol chloride 50 mg tablet 50 mg PO BID 90 Days #180 tab 08/27/20 hyoscyamine sulfate 0.125 mg 0.25 mg PO TID-QID PRN 30 Days #60 09/10/20 sublingual tablet tab omeprazole magnesium 20 mg 20 mg PO BID 30 Days #60 cap 09/14/20 capsule,delayed release methylcellulose (laxative) 500 mg 1,000 mg PO DAILY 30 Days #60 tab 09/22/20 tablet albuterol sulfate 2 puff INHALATION Q4-6H PRN #8.5 g 10/07/20 prednisone 60 mg PO DAILY #12 tab 10/07/20 dicyclomine 20 mg tablet 20 mg PO TID 30 Days #90 tab 10/13/20 Allergies Allergy/AdvReac Type Severity Reaction Status Date / Time oxycodone [Percocet] Allergy Intermediate Itching Verified 10/16/20 16:57 Vicodin Allergy Intermediate itching Uncoded 01/21/20 15:29 Review of Systems Review of Systems: Constitutional : No Weight loss, No Fever, + Chills ENT/Mouth : No sore throat, No Rhinorrhea Eyes: No Eye Pain, No Swelling Cardiovascular : No Chest Pain, no palpitations Respiratory : ++ Cough, No Sputum, + shortness of breath Gastrointestinal : no Nausea, No Vomiting, No Diarrhea, No abdominal Pain, no black stools Genitourinary : No Dysuria, No Urinary Frequency Musculoskeletal : No joint pain, No Myalgias, No Joint Swelling Skin : No Skin Lesions, No rash Neuro : No Weakness, No Numbness, No Dizziness, No Headache Psych : No Anxiety/Panic, No Depression Heme/Lymph: No Bruising, No Lymphadenopathy Endocrine : No Polyuria, No Polydipsia All other systems reviewed and are negative [facility] Past Medical History Medical History Depression Diabetes mellitus Fibromyalgia Hx of hereditary disease Surgical History History of colonoscopy Hx of cholecystectomy Hx of endoscopy Hx of total knee replacement Hx of tubal ligation Family History Family History Father History of heart attack Hx of type 1 diabetes mellitus Mother Alive and well Social History Social History Household Members: Spouse Housing: Apartment Alcohol intake: never Cigarettes Per Day: 4 Advance Directives: No Advance Directives Information Provided: Yes Patient : No Physical Exam Vital Signs: Vital Signs: Last Vital Signs Temp 102.7 F H 10/16/20 16:57 Pulse 98 10/16/20 17:41 Resp 28 H 10/16/20 16:57 BP 119/65 10/16/20 16:57 Pulse Ox 89 L 10/16/20 16:57 Body Mass Index 33.8 Appearance: Alert. Oriented X3. Mild distress with frequent cough. Febrile to touch Eyes: PERRLA, No Nystagmus ENT: Pharynx normal. Oral Mucosa moist Neck: Normal inspection. Neck supple. CVS: Tachycardic no murmur Pulses normal. Respiratory: No respiratory distress. bilateral wheezing with crackles r>L ,decreased air entry bilaterally Abdomen: Soft and nontender. Bowel sounds are present, no mass palpable, no CVA tenderness Skin: Skin warm and dry. Normal skin color. Normal skin turgor. Extremities: No lower extremity edema. No calf tenderness Neuro: Oriented X 3. No motor deficit. No sensory deficit. MDM - SOB/Dyspnea MDM Narrative Medical decision making narrative: Patient with elevated white counts with tachycardia with fever with CTA negative for PE but showing right-sided multiple infiltrates meeting the criteria for sepsis but not septic shock, will admit patient for multifocal pneumonia likely aspiration with hypoxia will start patient on Zosyn Lab Data Attestation: I reviewed the patient's lab results. Result diagrams: 10/16/20 18:33 10/16/20 18:33 Labs: Lab Results 10/16/20 10/16/20 10/16/20 Range/Units 18:33 18:33 18:33 WBC 19.3 H (4.8-10.8) X10*3/uL RBC 4.03 L (4.20-5.50) X10*6/uL Hgb 11.8 L (12.0-16.0) g/dl Hct 36.6 L (37-47) % MCV 90.8 (80-98) fL MCH 29.3 (27.0-33.0) pg MCHC 32.2 (31.0-35.0) g/dl RDW 14.0 (11.0-16.0) % Plt Count 374 D (160-400) X10*3/uL MPV 9.7 (9.4-12.3) fL Immature Gran % (Auto) 3.3 H (0.0-0.4) % Neut % (Auto) 80.4 H (45-73) % Lymph % (Auto) 11.9 L (20-40) % [place] % (Auto) 3.7 (2-11) % Eos % (Auto) 0.5 (0-4) % Baso % (Auto) 0.2 (0-2) % Lymph # (Auto) 2.3 (1.2-4.9) X10*3/uL [place] # (Auto) 0.7 (0.1-1.2) X10*3/uL Eos # (Auto) 0.1 (0.0-0.4) X10*3/uL Baso # (Auto) 0.0 (0.0-0.2) X10*3/uL Abs Immat Gran (auto) 0.64 H (0.00-0.03) X10*3/uL Absolute Neuts (auto) 15.5 H (2.0-8.3) X10*3/uL Absolute Nucleated RBC 0.000 (0.0-0.012) X10*3/uL Nucleated RBC % (auto) 0.0 (0.0-0.2) /100WBC VBG pH (7.32-7.43) VBG pCO2 mmHg VBG pO2 mmHg VBG HCO3 (22-26) mmol/L VBG O2 Saturation % VBG Base Excess mmol/L Sodium 137 (135-145) mmol/L Potassium 5.3 H D (3.3-5.1) mmol/L Chloride 102 (96-108) mmol/L Carbon Dioxide 21 L (22-29) mmol/L Anion Gap 19 (12-20) BUN 27 H (9-16) mg/dL Creatinine 0.95 (0.5-1.4) mg/dL Estim Creat Clear Calc 66.5 Estimated GFR > 60 Random Glucose 140 H (60-115) mg/dL Lactic Acid (0.5-2.0) mmol/L Calcium 9.8 (8.4-10.2) mg/dL B-Natriuretic Peptide 148 H (<100) pg/mL COVID-19 ([facility]) (Negative) COVID-19 Clin Com 10/16/20 10/16/20 10/16/20 Range/Units 18:33 18:39 20:49 WBC (4.8-10.8) X10*3/uL RBC (4.20-5.50) X10*6/uL Hgb (12.0-16.0) g/dl Hct (37-47) % MCV (80-98) fL MCH (27.0-33.0) pg MCHC (31.0-35.0) g/dl RDW (11.0-16.0) % Plt Count (160-400) X10*3/uL MPV (9.4-12.3) fL Immature Gran % (Auto) (0.0-0.4) % Neut % (Auto) (45-73) % Lymph % (Auto) (20-40) % [place] % (Auto) (2-11) % Eos % (Auto) (0-4) % Baso % (Auto) (0-2) % Lymph # (Auto) (1.2-4.9) X10*3/uL [place] # (Auto) (0.1-1.2) X10*3/uL Eos # (Auto) (0.0-0.4) X10*3/uL Baso # (Auto) (0.0-0.2) X10*3/uL Abs Immat Gran (auto) (0.00-0.03) X10*3/uL Absolute Neuts (auto) (2.0-8.3) X10*3/uL Absolute Nucleated RBC (0.0-0.012) X10*3/uL Nucleated RBC % (auto) (0.0-0.2) /100WBC VBG pH 7.38 (7.32-7.43) VBG pCO2 35 mmHg VBG pO2 36 mmHg VBG HCO3 21 L (22-26) mmol/L VBG O2 Saturation 48.0 % VBG Base Excess -2.9 mmol/L Sodium (135-145) mmol/L Potassium (3.3-5.1) mmol/L Chloride (96-108) mmol/L Carbon Dioxide (22-29) mmol/L Anion Gap (12-20) BUN (9-16) mg/dL Creatinine (0.5-1.4) mg/dL Estim Creat Clear Calc Estimated GFR Random Glucose (60-115) mg/dL Lactic Acid 2.0 (0.5-2.0) mmol/L Calcium (8.4-10.2) mg/dL B-Natriuretic Peptide (<100) pg/mL COVID-19 ([facility]AY) Negative (Negative) COVID-19 Clin Com See Note Discharge Plan Discharge Clinical Impression: Hypoxia Pneumonia Qualifiers: Pneumonia type: aspiration pneumonia Aspiration pneumonia type: unspecified Laterality: right Lung location: lower lobe of lung Qualified Code(s): J69.0 - Pneumonitis due to inhalation of food and vomit Sepsis Qualifiers: Sepsis type: sepsis due to unspecified organism Sepsis acute organ dysfunction status: without acute organ dysfunction Qualified Code(s): A41.9 - Sepsis, unspecified organism Patient Disposition: Admitted As Inpatient
[2020-10-16] MEDS: Albuterol Sulfate (0.083%) 2.5 MG/3 ML VIAL.NEB 7.5 MG INHALE (17:35)
[2020-10-16] MEDS: Albuterol/Iprat 2.5/0.5MG 3 ML AMPUL.NEB INHALE (17:36)
[2020-10-16 17:41] VITALS: PULSE 98; O2SAT 95
[2020-10-16] MEDS: methylPREDNISolone Sod Succ 125 MG/2 ML VIAL IVPUSH (18:39)
[2020-10-16 18:43] LABS: MANUAL DIFF FLAG NO
[2020-10-16 18:44] LABS: Basophils Percent Auto 0.2 % (0-2); Eosinophils Absolute Auto 0.1 X10*3/uL (0.0-0.4); Eosinophils Percent Auto 0.5 % (0-4); Hematocrit 36.6 % (37-47); Hemoglobin 11.8 g/dl (12.0-16.0); Imm Gran Abs Auto 0.64 X10*3/uL (0.00-0.03); Imm Gran Pct Auto 3.3 % (0.0-0.4); Lymphocytes Absolute Auto 2.3 X10*3/uL (1.2-4.9); Lymphocytes Percent Auto 11.9 % (20-40); Mean Corpuscular HGB Conc 32.2 g/dl (31.0-35.0); Mean Corpuscular Hemoglobin 29.3 pg (27.0-33.0); Mean Corpuscular Volume 90.8 fL (80-98); Mean Platelet Volume 9.7 fL (9.4-12.3); Monocytes Absolute Auto 0.7 X10*3/uL (0.1-1.2); Monocytes Percent Auto 3.7 % (2-11); Neutrophils Absolute Auto 15.5 X10*3/uL (2.0-8.3); Neutrophils Percent Auto 80.4 % (45-73); Platelet Count 374 X10*3/uL (160-400); Red Blood Count 4.03 X10*6/uL (4.20-5.50); White Blood Count 19.3 X10*3/uL (4.8-10.8)
[2020-10-16 18:46] LABS: Venous Blood Gas Refer to POC result
[2020-10-16 18:47] LABS: VBG Base Excess -2.9 mmol/L; VBG HCO3 21 mmol/L (22-26); VBG pCO2 35 mmHg; VBG pH 7.38 (7.32-7.43); VBG pO2 36 mmHg
[2020-10-16 19:04] LABS: Anion Gap 19 (12-20); Blood Urea Nitrogen 27 mg/dL (9-16); Calcium 9.8 mg/dL (8.4-10.2); Carbon Dioxide 21 mmol/L (22-29); Chloride 102 mmol/L (96-108); Creatinine Clr Calc Pharmacy 66.5; Estimated Glomerular Filt Rate > 60; Glucose Random 140 mg/dL (60-115); Potassium 5.3 mmol/L (3.3-5.1); Sodium 137 mmol/L (135-145)
[2020-10-16 19:10] LABS: B Type Natriuretic Peptide 148 pg/mL (<100)
[2020-10-16] MEDS: iohexoL 350 MG/ML 100 ML INFUS..BTL 65 ML IV (19:36)
--- NOTE | 2020-10-16 20:28 | PC.NURSE ---
ASSUMED CARE OF PT. PT RESTING IN STRETCHER. PT ALERT, WITH FAMILY AT BEDSIDE. PT AWAITING FOR PENDING CTA. WILL CONTINUE TO MONITOR PT.
[2020-10-16 21:09] LABS: COVID-19 Test Negative (Negative); IDNOW Serial# 9DD0AD1C
[2020-10-16] MEDS: Acetaminophen 325 MG TABLET 650 MG PO (21:19)
[2020-10-16] MEDS: 0.9 % Sodium Chloride 1,000 ML 999 ML IVCONT (21:20)
[2020-10-16] MEDS: Piperacillin Sodium/Tazobactam 3.375 GM in 0.9 % Sodium Chloride 50 ML IV (21:20)
[2020-10-16 22:00] VITALS: BP 120/68; PULSE 80; RESP 16; O2SAT 97
[2020-10-17] VITALS (9 sets, daily range): BP systolic 138–179; BP diastolic 64–87; PULSE 83–100; RESP 18–20; TEMP 36.3–37.1; O2SAT 89–96; BMI 33.8
--- NOTE | 2020-10-17 00:50 | PC.NURSE ---
PT AWAITING FOR ROOM ASSIGNMENT. PT DENIES ANY COMPLAINTS AND REMAINS ALERT, RESPIRATIONS EASY, N/L. SKIN W/D. WILL CONTINUE TO MONITOR PT. PT EATING SANDWICH AND DRINKING FIORELLA AMENA.
[2020-10-17] MEDS: Enoxaparin Sodium 40 MG/0.4 ML SYRINGE SUBCUT (01:38)
[2020-10-17] MEDS: Ampicillin Sodium/Sulbactam Na 3 GM in 0.9 % Sodium Chloride 100 ML IV ×3 (01:39→17:48)
--- NOTE | 2020-10-17 04:16 | PC.NURSE ---
REPORT TO KALEB WALTON.
[2020-10-17 05:58] LABS: MANUAL DIFF FLAG NO
[2020-10-17 06:10] LABS: Basophils Percent Auto 0.1 % (0-2); Hematocrit 35.9 % (37-47); Hemoglobin 11.3 g/dl (12.0-16.0); Imm Gran Abs Auto 0.87 X10*3/uL (0.00-0.03); Imm Gran Pct Auto 4.3 % (0.0-0.4); Lymphocytes Absolute Auto 1.5 X10*3/uL (1.2-4.9); Lymphocytes Percent Auto 7.4 % (20-40); Mean Corpuscular HGB Conc 31.5 g/dl (31.0-35.0); Mean Corpuscular Hemoglobin 28.8 pg (27.0-33.0); Mean Corpuscular Volume 91.6 fL (80-98); Monocytes Absolute Auto 0.4 X10*3/uL (0.1-1.2); Monocytes Percent Auto 1.8 % (2-11); Neutrophils Absolute Auto 17.4 X10*3/uL (2.0-8.3); Neutrophils Percent Auto 86.4 % (45-73); Platelet Count 364 X10*3/uL (160-400); Red Blood Count 3.92 X10*6/uL (4.20-5.50); White Blood Count 20.2 X10*3/uL (4.8-10.8)
[2020-10-17 06:51] LABS: Anion Gap 19 (12-20); Blood Urea Nitrogen 19 mg/dL (9-16); Calcium 9.6 mg/dL (8.4-10.2); Carbon Dioxide 21 mmol/L (22-29); Chloride 103 mmol/L (96-108); Creatinine Clr Calc Pharmacy 63.8; Estimated Glomerular Filt Rate 57; Glucose Random 243 mg/dL (60-115); Potassium 4.9 mmol/L (3.3-5.1); Sodium 138 mmol/L (135-145)
--- NOTE | 2020-10-17 07:12 | PM.IMHP ---
History of Present Illness Date of Service: 10/16/20 Chief Complaint: Persistent Cough This is a 60-year-old female with past medical history of diabetes, fibromyalgia, hypertension, who presents to the hospital with complaints of persistent cough and shortness of breath. Patient reports about 2 weeks ago she had a pop: That went down the wrong way and she started coughing for straight whole day, her symptoms did not resolve and slowly worsened. She was seen in the hospital ago and was started on steroid for presumed COPD although patient denies history of COPD or asthma. Patient went home, took prednisone for about a week, but continued to persistent cough, and shortness of breath. She is a chronic smoker but never been diagnosed with COPD. She denies any fever but has chills, denies any chest pain, no abdominal pain, no nausea or vomiting, no diarrhea constipation, no urinary symptoms and no lower extremity edema. On arrival to the ED patient's vital significant for a fever of 102.7, heart rate of 106, respiratory rate of 28, satting 89% on room air Labs are significant for WBC count of 20.2, hemoglobin of 11.3, BNP of [address] angiograms negative for PE but shows airspace disease in the right lung most likely reflects multifocal pneumonia most evident in the right lower lobe where there is dense consolidation Patient will be admitted for further management Review of Systems Review of Systems: Yes all other systems are reviewed and are negative [facility] Medical History (Updated 10/17/20 @ 07:24 by Margarita Cabrera MD) Depression Diabetes mellitus Dysphagia, pharyngoesophageal phase Fibromyalgia GERD without esophagitis History of colon polyps Hx of hereditary disease IBS (irritable bowel syndrome) Steatohepatitis Urinary retention with incomplete bladder emptying Family History Father History of heart attack Hx of type 1 diabetes mellitus Mother Alive and well Surgical History History of colonoscopy Hx of cholecystectomy Hx of endoscopy Hx of total knee replacement Hx of tubal ligation Social History Household Members: Spouse Housing: House Do you presently have visiting nurse or other home services: Yes ([employer] for 12hrs/week) Alcohol intake: never Patient Tobacco Use Status: Former Tobacco user Tobacco use type: Cigarette Cigarette Packs Per Day: 0.5 Cigarettes Per Day: 10.0 Patient Interested in Nicotine Replacement: Yes Use of substances other than those prescribed or required for medical reasons: No Have you been hit, kicked, punched, or otherwise hurt by someone within the past year? If so, by whom?: No Do you feel safe in your current relationship?: Yes Is there a partner from a previous relationship who is making you feel unsafe now?: No Are you made to feel afraid or neglected: No Advance Directives: No Advance Directives Information Provided: Yes Do you have thoughts of harming others: None Do you have a plan to hurt others: No Plan Recently lost weight without trying: No Nutrition Risks: Difficulty swallowing Patient : No : No Poor oral hygiene: No Meds Allergies Allergy/AdvReac Type Severity Reaction Status Date / Time oxycodone [Percocet] Allergy Intermediate Itching Verified 10/16/20 16:57 Vicodin Allergy Intermediate itching Uncoded 01/21/20 15:29 Active Medications: Current Medications Generic Name Dose Route Start Last Admin Trade Name Freq PRN Reason Stop Dose Admin Acetaminophen 650 mg 10/17/20 00:46 Acetaminophen 325 Mg Tablet PO Q6H PRN Pain, Mild (Pain Scale 1-3) Docusate Sodium 100 mg 10/17/20 00:46 Docusate Sodium 100 Mg Capsule PO DAILY PRN Constipation Enoxaparin Sodium 40 mg 10/17/20 02:00 10/17/20 01:38 Enoxaparin Sodium 40 Mg/0.4 Ml Syringe SUBCUT 40 mg Q24H [facility] Administration Ampicillin Sodium/Sulbactam 100 mls @ 200 mls/hr 10/17/20 02:00 10/17/20 03:23 Sodium 3 gm/ Sodium Chloride IV Infused Q8H [facility] Infusion Ondansetron HCl 4 mg 10/17/20 00:46 Ondansetron Hcl 4 Mg/2 Ml Vial IVPUSH Q8H PRN Nausea and Vomiting Sodium Chloride 3 ml 10/17/20 00:46 10/17/20 01:39 0.9 % Sodium Chloride Flush 3 Ml Syringe IVFLUSH Not Given QSHIFT [facility] Home Medications Medication Instructions Recorded Confirmed Last Taken Type atorvastatin 40 mg tablet 40 mg PO DAILY 01/21/20 10/16/20 Unknown History duloxetine 30 mg capsule,delayed 30 mg PO DAILY 01/21/20 10/16/20 Unknown History release fenofibrate micronized 134 mg 134 mg PO DAILY 01/21/20 09/10/20 Unknown History capsule lisinopril 2.5 mg tablet 2.5 mg PO DAILY 01/21/20 10/16/20 Unknown History vitamin E (dl, acetate) 400 unit 400 unit PO DAILY 01/21/20 10/16/20 Unknown History capsule blood sugar diagnostic #10 ea 06/25/20 09/10/20 Unknown History cholecalciferol (vitamin D3) 50 50 mcg PO DAILY 06/25/20 10/16/20 Unknown History mcg (2,000 unit) capsule diclofenac sodium 1 % topical gel 2 g TOPICAL QID 06/25/20 10/16/20 Unknown History guaifenesin 600 mg tablet, 600 mg PO Q12H PRN 06/25/20 10/16/20 Unknown History extended release 12 hr hydroxyzine HCl 50 mg tablet 50 mg PO BID PRN 06/25/20 10/16/20 Unknown History metformin 500 mg tablet 500 mg PO BID 06/25/20 10/16/20 Unknown History mirtazapine 45 mg tablet 45 mg PO BEDTIME 06/25/20 10/16/20 Unknown History nicotine 21 mg/24 hr daily 1 patch TOPICAL DAILY 06/25/20 10/16/20 Unknown History transdermal patch tizanidine 2 mg tablet 6 mg PO Q12H PRN 06/25/20 10/16/20 Unknown History simethicone 125 mg chewable tablet 250 mg PO BID PRN 07/02/20 10/16/20 Unknown History quetiapine 50 mg tablet 50 mg PO BEDTIME 08/27/20 10/16/20 Unknown History Physical Exam Vital Signs and Narrative: Vital Signs: Last Vital Signs Temp 97.5 F 10/17/20 04:55 Pulse 94 10/17/20 04:55 Resp 10/17/20 04:55 BP 177/71 H 10/17/20 04:55 Pulse Ox 90 L 10/17/20 04:55 Body Mass Index 33.8 Const: General: cooperative and no acute distress Orientation/consciousness: patient oriented x3 Eyes: General: appearance normal, both eyes and all related structures Pupils: Equal, round and reactive pupils present Resp: Other: Coughing, crackles on the lower lobe of the right lung Effort & Inspection: normal respiratory effort and able to speak in complete sentences Cardio: Rate: regular rate Rhythm: regular rhythm GI: Palpation (GI): Soft to palpation Auscultation: normal bowel sounds Skin: General skin exam: no rashes or lesions noted Neuro: General: patient oriented x3 Cranial nerves: Yes Equal, round and reactive pupils present Cognition (Neuro): normal cognition Extrem: General: Yes normal to inspection and Yes no pedal edema Results Labs CBC and Chem 7: 10/17/20 05:20 10/17/20 05:20 Labs: Laboratory Results - last 24 hr 10/16/20 10/16/20 10/16/20 18:33 18:33 18:33 MCV 90.8 MCH 29.3 MCHC 32.2 RDW 14.0 Plt Count 374 D MPV 9.7 Immature Gran % (Auto) 3.3 H Neut % (Auto) 80.4 H Lymph % (Auto) 11.9 L [place] % (Auto) 3.7 Eos % (Auto) 0.5 Baso % (Auto) 0.2 Lymph # (Auto) 2.3 [place] # (Auto) 0.7 Eos # (Auto) 0.1 Baso # (Auto) 0.0 Abs Immat Gran (auto) 0.64 H Absolute Neuts (auto) 15.5 H Absolute Nucleated RBC 0.000 Nucleated RBC % (auto) 0.0 VBG pH VBG pCO2 VBG pO2 VBG HCO3 VBG O2 Saturation VBG Base Excess Anion Gap 19 Estim Creat Clear Calc 66.5 Estimated GFR > 60 Random Glucose 140 H Lactic Acid Calcium 9.8 B-Natriuretic Peptide 148 H COVID-19 ([facility]) COVID-19 Clin Com 10/16/20 10/16/20 10/16/20 18:33 18:39 20:49 MCV MCH MCHC RDW Plt Count MPV Immature Gran % (Auto) Neut % (Auto) Lymph % (Auto) [place] % (Auto) Eos % (Auto) Baso % (Auto) Lymph # (Auto) [place] # (Auto) Eos # (Auto) Baso # (Auto) Abs Immat Gran (auto) Absolute Neuts (auto) Absolute Nucleated RBC Nucleated RBC % (auto) VBG pH 7.38 VBG pCO2 35 VBG pO2 36 VBG HCO3 21 L VBG O2 Saturation 48.0 VBG Base Excess -2.9 Anion Gap Estim Creat Clear Calc Estimated GFR Random Glucose Lactic Acid 2.0 Calcium B-Natriuretic Peptide COVID-19 ([facility]) Negative COVID-19 Clin Com See Note 10/17/20 10/17/20 05:20 05:20 MCV 91.6 MCH 28.8 MCHC 31.5 RDW 14.0 Plt Count 364 MPV 10.0 Immature Gran % (Auto) 4.3 H Neut % (Auto) 86.4 H Lymph % (Auto) 7.4 L [place] % (Auto) 1.8 L Eos % (Auto) 0.0 Baso % (Auto) 0.1 Lymph # (Auto) 1.5 [place] # (Auto) 0.4 Eos # (Auto) 0.0 Baso # (Auto) 0.0 Abs Immat Gran (auto) 0.87 H Absolute Neuts (auto) 17.4 H Absolute Nucleated RBC 0.000 Nucleated RBC % (auto) 0.0 VBG pH VBG pCO2 VBG pO2 VBG HCO3 VBG O2 Saturation VBG Base Excess Anion Gap 19 Estim Creat Clear Calc 63.8 Estimated GFR 57 Random Glucose 243 H D Lactic Acid Calcium 9.6 B-Natriuretic Peptide COVID-19 ([facility]) COVID-19 Clin Com Imaging Radiologist's Impressions: Impressions Chest CTA 10/16/20 17:20 IMPRESSION: No evidence for pulmonary embolism. Airspace disease in the right lung most likely reflects multi focal pneumonia most evident in the right lower lobe where there is dense consolidation. Assessment and Plan (1) Pneumonia: Qualifiers: Aspiration pneumonia type: unspecified Laterality: right Lung location: lower lobe of lung Pneumonia type: aspiration pneumonia Qualified Code(s): J69.0 - Pneumonitis due to inhalation of food and vomit Status: Acute (2) Acute respiratory failure with hypoxia: Status: Acute (3) Sepsis: Qualifiers: Sepsis acute organ dysfunction status: without acute organ dysfunction Sepsis type: sepsis due to unspecified organism Qualified Code(s): A41.9 - Sepsis, unspecified organism Status: Acute This is a 60-year-old female with past medical history of hypertension, fibromyalgia, diabetes who presents to the hospital with persistent cough and shortness breath # sepsis - secondary to aspiration pneumonia - febrile, leukocytosis, - started on IV antibiotics - Follow cultures # acute hypoxic respiratory failure - secondary to pneumonia - found to have an oxygen of 89% on room air - COVID-19 negative - oxygen supplement - treat pneumonia with IV antibiotics - monitor respiratory status # pneumonia - most likely aspiration pneumonia as patient remembers the event that started all of this was choking on popcorn - denies any history of dysphagia or difficulty swallowing - will start her on Unasyn - follow cultures # diabetes - hold metformin - start low-dose sliding scale insulin - diabetic diet # fibromyalgia - continue pregabalin # IBS - continue home medications # depression - continue home medications DVT prophylaxis: Lovenox Quality Stroke Does the patient have a stroke diagnosis?: No VTE Prior VTE?: No VTE Risk Level:: Medical - moderate - high VTE Device Contraindication: Treatment Not Indicated VTE Drug Contraindication: N/A - Med Ordered
[2020-10-17 07:42] LABS: Glucose, Whole Blood 177 mg/dL (60-115)
[2020-10-17] MEDS: Cholecalciferol (Vitamin D3) 25 MCG TABLET 50 MCG PO (08:53)
[2020-10-17] MEDS: Omeprazole 20 MG CAPSULE.DR PO ×2 (08:53→16:25)
[2020-10-17] MEDS: Acetaminophen 325 MG TABLET 650 MG PO (08:54)
[2020-10-17] MEDS: Dicyclomine HCl 10 MG CAPSULE 20 MG PO ×3 (08:54→21:52)
[2020-10-17] MEDS: lisinopriL 2.5 MG TABLET PO (08:55)
[2020-10-17] MEDS: DULoxetine HCl 60 MG CAPSULE.DR PO ×2 (08:56→21:52)
[2020-10-17] MEDS: Pregabalin 75 MG CAPSULE PO ×3 (08:56→21:52)
[2020-10-17] MEDS: Vitamin E (Dl,Tocopheryl Acet) 180 MG (400 UNIT) CAPSULE PO (08:56)
[2020-10-17] MEDS: Insulin Lispro 100 UNIT/ML 3 ML VIAL SUBCUT ×4 (08:56→21:53)
[2020-10-17] MEDS: Nicotine 21 MG PATCH.TD24 TRANSDERMA (09:01)
--- NOTE | 2020-10-17 09:05 | P.PNIM_ITS ---
Subjective Subjective Date of Service: 10/17/20 Interval History: Seen in follow up for CAP, feels better, has persistent cogh, no fever, Review of Systems Gen: no fever Resp: + sob, +cough CV: no chest, no RICHEY, no leg edema GI: No n/v, no abd pain Neuro: No confusion Physical Exam Vital Signs: Vital Signs: Last Vital Signs Temp 97.7 F 10/17/20 07:40 Pulse 83 10/17/20 08:55 Resp 20 10/17/20 07:40 BP 139/70 10/17/20 08:55 Pulse Ox 92 10/17/20 07:40 Body Mass Index 33.8 Const: Other: General: AO X 3, no acute distress Resp: malorie rhonchi CVS: S1,S2,RRR GI: +BS, NT, no distention Skin: No rash Neuro: motor grossly intact Psych: appropriate affect Objective Data Current Medications Generic Name Dose Route Start Last Admin Trade Name Freq PRN Reason Stop Dose Admin Acetaminophen 650 mg 10/17/20 00:46 10/17/20 08:54 Acetaminophen 325 Mg Tablet PO 650 mg Q6H PRN Administration Pain, Mild (Pain Scale 1-3) Albuterol Sulfate 2 puff 10/17/20 07:19 Albuterol Sulfate 90 Mcg 8 Gm Inhaler INHALE Q4H PRN shortness of breath or wheezing Atorvastatin Calcium 80 mg 10/17/20 21:00 Atorvastatin Calcium 80 Mg Tablet PO BEDTIME KIMBERLY Dicyclomine HCl 20 mg 10/17/20 09:00 10/17/20 08:54 Dicyclomine Hcl 10 Mg Capsule PO 20 mg TID KIMBERLY Administration Docusate Sodium 100 mg 10/17/20 00:46 Docusate Sodium 100 Mg Capsule PO DAILY PRN Constipation Doxazosin Mesylate 1 mg 10/17/20 21:00 Doxazosin Mesylate 1 Mg Tablet PO BEDTIME KIMBERLY Duloxetine HCl 60 mg 10/17/20 09:00 10/17/20 08:56 Duloxetine Hcl 60 Mg Capsule.Dr PO 60 mg BID KIMBERLY Administration Enoxaparin Sodium 40 mg 10/17/20 02:00 10/17/20 01:38 Enoxaparin Sodium 40 Mg/0.4 Ml Syringe SUBCUT 40 mg Q24H KIMBERLY Administration Fenofibrate 134 mg 10/17/20 09:15 Fenofibrate,Micronized 134 Mg Capsule PO DAILY [facility] Guaifenesin 600 mg 10/17/20 09:02 Guaifenesin La 600 Mg Tab.Er.12h PO Q12H PRN Cough Hydroxyzine HCl 50 mg 10/17/20 07:19 Hydroxyzine Hcl 50 Mg Tablet PO BID PRN anxiety Ampicillin Sodium/Sulbactam 100 mls @ 200 mls/hr 10/17/20 02:00 10/17/20 03:23 Sodium 3 gm/ Sodium Chloride IV Infused Q8H KIMBERLY Infusion Insulin Human Lispro 0 unit 10/17/20 07:30 10/17/20 08:56 Insulin Lispro 100 Unit/Ml 3 Ml Vial SUBCUT 2 unit QIDACHS [facility] Administration Protocol Lisinopril 2.5 mg 10/17/20 09:00 10/17/20 08:55 Lisinopril 2.5 Mg Tablet PO 2.5 mg DAILY [facility] Administration Protocol Mirtazapine 45 mg 10/17/20 21:00 Mirtazapine 15 Mg Tablet PO BEDTIME KIMBERLY Nicotine 21 mg 10/17/20 09:00 10/17/20 09:01 Nicotine 21 Mg Patch.Td24 TRANSDERMA 21 mg DAILY [facility] Administration Non-Formulary Medication 50 mg 10/17/20 09:00 Bethanechol Chloride PO BID KIMBERLY Non-Formulary Medication 0.25 mg 10/17/20 07:19 Hyoscyamine Sulfate PO TID-QID PRN dyspepsia Non-Formulary Medication 17.2 mg 10/17/20 09:02 Sennosides [Senna] PO BID PRN constipation Omeprazole 20 mg 10/17/20 07:46 10/17/20 08:53 Omeprazole 20 Mg Capsule.Dr PO 20 mg BID@0630,1630 [facility] Administration Ondansetron HCl 4 mg 10/17/20 00:46 Ondansetron Hcl 4 Mg/2 Ml Vial IVPUSH Q8H PRN Nausea and Vomiting Pregabalin 75 mg 10/17/20 09:00 10/17/20 08:56 Pregabalin 75 Mg Capsule PO 75 mg TID KIMBERLY Administration Quetiapine Fumarate 50 mg 10/17/20 21:00 Quetiapine Fumarate 50 Mg Tablet PO BEDTIME KIMBERLY Simethicone 80 mg 10/17/20 07:47 Simethicone 80 Mg Tab.Chew PO BID PRN Gastrointestinal Spasms Or Cramping Sodium Chloride 3 ml 10/17/20 00:46 10/17/20 01:39 0.9 % Sodium Chloride Flush 3 Ml Syringe IVFLUSH Not Given QSHIFT [facility] Tizanidine HCl 6 mg 10/17/20 08:00 Tizanidine Hcl 4 Mg Tablet PO Q12H PRN Muscle Spasm Vitamin D 50 mcg 10/17/20 09:00 10/17/20 08:53 Cholecalciferol (Vitamin D3) 25 Mcg Tablet PO 50 mcg DAILY KIMBERLY Administration Vitamin E 180 mg 10/17/20 09:00 10/17/20 08:56 Vitamin E (Dl,Tocopheryl Acet) 180 Mg (400 Unit) Capsule PO 180 mg DAILY KIMBERLY Administration Labs CBC & Chem 7: 10/17/20 05:20 10/17/20 05:20 Labs: Laboratory Results - last 24 hr 10/16/20 10/16/20 10/16/20 18:33 18:33 18:33 WBC 19.3 H RBC 4.03 L Hgb 11.8 L Hct 36.6 L MCV 90.8 MCH 29.3 MCHC 32.2 RDW 14.0 Plt Count 374 D MPV 9.7 Immature Gran % (Auto) 3.3 H Neut % (Auto) 80.4 H Lymph % (Auto) 11.9 L Miller % (Auto) 3.7 Eos % (Auto) 0.5 Baso % (Auto) 0.2 Lymph # (Auto) 2.3 Miller # (Auto) 0.7 Eos # (Auto) 0.1 Baso # (Auto) 0.0 Abs Immat Gran (auto) 0.64 H Absolute Neuts (auto) 15.5 H Absolute Nucleated RBC 0.000 Nucleated RBC % (auto) 0.0 VBG pH VBG pCO2 VBG pO2 VBG HCO3 VBG O2 Saturation VBG Base Excess Sodium 137 Potassium 5.3 H D Chloride 102 Carbon Dioxide 21 L Anion Gap 19 BUN 27 H Creatinine 0.95 Estim Creat Clear Calc 66.5 Estimated GFR > 60 POC Glucose Random Glucose 140 H Lactic Acid Calcium 9.8 B-Natriuretic Peptide 148 H COVID-19 ([facility]AY) COVID-19 Clin Com 10/16/20 10/16/20 10/16/20 18:33 18:39 20:49 WBC RBC Hgb Hct MCV MCH MCHC RDW Plt Count MPV Immature Gran % (Auto) Neut % (Auto) Lymph % (Auto) Miller % (Auto) Eos % (Auto) Baso % (Auto) Lymph # (Auto) Miller # (Auto) Eos # (Auto) Baso # (Auto) Abs Immat Gran (auto) Absolute Neuts (auto) Absolute Nucleated RBC Nucleated RBC % (auto) VBG pH 7.38 VBG pCO2 35 VBG pO2 36 VBG HCO3 21 L VBG O2 Saturation 48.0 VBG Base Excess -2.9 Sodium Potassium Chloride Carbon Dioxide Anion Gap BUN Creatinine Estim Creat Clear Calc Estimated GFR POC Glucose Random Glucose Lactic Acid 2.0 Calcium B-Natriuretic Peptide COVID-19 ([facility]AY) Negative COVID-19 Clin Com See Note 10/17/20 10/17/20 10/17/20 05:20 05:20 07:38 WBC 20.2 H RBC 3.92 L Hgb 11.3 L Hct 35.9 L MCV 91.6 MCH 28.8 MCHC 31.5 RDW 14.0 Plt Count 364 MPV 10.0 Immature Gran % (Auto) 4.3 H Neut % (Auto) 86.4 H Lymph % (Auto) 7.4 L Miller % (Auto) 1.8 L Eos % (Auto) 0.0 Baso % (Auto) 0.1 Lymph # (Auto) 1.5 Miller # (Auto) 0.4 Eos # (Auto) 0.0 Baso # (Auto) 0.0 Abs Immat Gran (auto) 0.87 H Absolute Neuts (auto) 17.4 H Absolute Nucleated RBC 0.000 Nucleated RBC % (auto) 0.0 VBG pH VBG pCO2 VBG pO2 VBG HCO3 VBG O2 Saturation VBG Base Excess Sodium 138 Potassium 4.9 Chloride 103 Carbon Dioxide 21 L Anion Gap 19 BUN 19 H Creatinine 0.99 Estim Creat Clear Calc 63.8 Estimated GFR 57 POC Glucose 177 H Random Glucose 243 H D Lactic Acid Calcium 9.6 B-Natriuretic Peptide COVID-19 ([facility]AY) COVID-19 Clin Com Quality Stroke Does the patient have a stroke diagnosis?: No VTE Prior VTE?: No VTE Risk Level:: Medical - moderate - high VTE Device Contraindication: Treatment Not Indicated VTE Drug Contraindication: N/A - Med Ordered Assessment and Plan (1) Pneumonia: Status: Acute (2) Acute respiratory failure with hypoxia: Status: Acute (3) Sepsis: Status: Acute Assessment and Plan: 60-year-old female with past medical history of hypertension, fibromyalgia, diabetes who presents to the hospital with persistent cough and shortness breath # sepsis--clinically better - secondary to aspiration pneumonia - febrile, leukocytosis, - started on IV antibiotics - Follow cultures # acute hypoxic respiratory failure - secondary to pneumonia - found to have an oxygen of 89% on room air - COVID-19 negative - oxygen supplement - monitor respiratory status # pneumonia--suspect aspiration type - most likely aspiration pneumonia as patient remembers the event that started all of this was choking on popcorn - denies any history of dysphagia or difficulty swallowing - Continue Unasyn and monitor WBC - follow cultures # diabetes - hold Metformin d/t contrast yesterday - start low-dose sliding scale insulin - diabetic diet # fibromyalgia - continue pregabalin # IBS - continue home medications # depression - continue home medications DVT prophylaxis: Lovenox
[2020-10-17] MEDS: 0.9 % Sodium Chloride Flush 3 ML SYRINGE IVFLUSH ×3 (10:40→21:57)
[2020-10-17 11:47] LABS: Glucose, Whole Blood 194 mg/dL (60-115)
[2020-10-17] MEDS: Fenofibrate,Micronized 134 MG CAPSULE PO (11:54)
[2020-10-17] MEDS: guaiFENesin LA 600 MG TAB.ER.12H PO (15:23)
[2020-10-17 15:56] LABS: Glucose, Whole Blood 242 mg/dL (60-115)
[2020-10-17 19:59] LABS: Glucose, Whole Blood 189 mg/dL (60-115)
[2020-10-17] MEDS: Doxazosin Mesylate 1 MG TABLET PO (21:53)
[2020-10-17] MEDS: Atorvastatin Calcium 80 MG TABLET PO (21:53)
[2020-10-17] MEDS: QUEtiapine Fumarate 50 MG TABLET PO (21:53)
[2020-10-17] MEDS: Mirtazapine 15 MG TABLET 45 MG PO (21:53)
[2020-10-18] VITALS (10 sets, daily range): BP systolic 111–142; BP diastolic 62–80; PULSE 80–117; RESP 18–20; TEMP 36.1–36.7; O2SAT 90–95
[2020-10-18] MEDS: Benzonatate 100 MG CAPSULE 200 MG PO ×2 (00:10→20:30)
[2020-10-18] MEDS: Enoxaparin Sodium 40 MG/0.4 ML SYRINGE SUBCUT (02:26)
[2020-10-18] MEDS: Ampicillin Sodium/Sulbactam Na 3 GM in 0.9 % Sodium Chloride 100 ML IV ×3 (02:26→20:31)
[2020-10-18] MEDS: Omeprazole 20 MG CAPSULE.DR PO ×2 (05:54→16:40)
[2020-10-18 07:23] LABS: Glucose, Whole Blood 164 mg/dL (60-115)
[2020-10-18] MEDS: 0.9 % Sodium Chloride Flush 3 ML SYRINGE IVFLUSH (08:01)
[2020-10-18] MEDS: Fenofibrate,Micronized 134 MG CAPSULE PO (08:02)
[2020-10-18] MEDS: Cholecalciferol (Vitamin D3) 25 MCG TABLET 50 MCG PO (08:02)
[2020-10-18] MEDS: Pregabalin 75 MG CAPSULE PO ×3 (08:02→20:29)
[2020-10-18] MEDS: Vitamin E (Dl,Tocopheryl Acet) 180 MG (400 UNIT) CAPSULE PO (08:03)
[2020-10-18] MEDS: Dicyclomine HCl 10 MG CAPSULE 20 MG PO ×3 (08:03→20:30)
[2020-10-18] MEDS: lisinopriL 2.5 MG TABLET PO (08:03)
[2020-10-18] MEDS: DULoxetine HCl 60 MG CAPSULE.DR PO ×2 (08:03→20:29)
[2020-10-18] MEDS: Insulin Lispro 100 UNIT/ML 3 ML VIAL SUBCUT ×3 (08:04→16:41)
--- NOTE | 2020-10-18 10:40 | HO.PM.IMPN ---
Subjective Subjective Date of Service: 10/18/20 Interval History: Feels better, less shortness of breath and cough no overnight fever chills, not on home oxygen was smoking half pack per day up until several days when started with symptoms of shortness of breath and cough, recently finished course of prednisone. 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 Physical Exam Vital Signs: Vital Signs: Last Vital Signs Temp 97.8 F 10/18/20 07:43 Pulse 113 H 10/18/20 08:03 Resp 20 10/18/20 07:43 BP 114/70 10/18/20 08:03 Pulse Ox 91 L 10/18/20 07:43 Body Mass Index 33.8 General no acute distress. Neck is supple no JVD. CVS regular rate rhythm, Respiratory lungs bilateral expiratory rhonchi , no respiratory distress Gastrointestinal abdomen soft, nontender, bowel sounds audible, no guarding , no rigidity. Extremities no edema. Neuro nonfocal ,speech clear. Skin no rash Objective Data Current Medications Generic Name Dose Route Start Last Admin Trade Name Freq PRN Reason Stop Dose Admin Acetaminophen 650 mg 10/17/20 00:46 10/17/20 08:54 Acetaminophen 325 Mg Tablet PO 650 mg Q6H PRN Administration Pain, Mild (Pain Scale 1-3) Albuterol Sulfate 2 puff 10/17/20 07:19 Albuterol Sulfate 90 Mcg 8 Gm Inhaler INHALE Q4H PRN shortness of breath or wheezing Atorvastatin Calcium 80 mg 10/17/20 21:00 10/17/20 21:53 Atorvastatin Calcium 80 Mg Tablet PO 80 mg BEDTIME KIMBERLY Administration Benzonatate 200 mg 10/17/20 22:26 10/18/20 00:10 Benzonatate 100 Mg Capsule PO 200 mg TID PRN Administration Cough Dicyclomine HCl 20 mg 10/17/20 09:00 10/18/20 08:03 Dicyclomine Hcl 10 Mg Capsule PO 20 mg TID KIMBERLY Administration Docusate Sodium 100 mg 10/17/20 00:46 Docusate Sodium 100 Mg Capsule PO DAILY PRN Constipation Doxazosin Mesylate 1 mg 10/17/20 21:00 10/17/20 21:53 Doxazosin Mesylate 1 Mg Tablet PO 1 mg BEDTIME KIMBERLY Administration Duloxetine HCl 60 mg 10/17/20 09:00 10/18/20 08:03 Duloxetine Hcl 60 Mg Capsule. PO 60 mg BID KIMBERLY Administration Enoxaparin Sodium 40 mg 10/17/20 02:00 10/18/20 02:26 Enoxaparin Sodium 40 Mg/0.4 Ml Syringe SUBCUT 40 mg Q24H KIMBERLY Administration Fenofibrate 134 mg 10/17/20 09:15 10/18/20 08:02 Fenofibrate,Micronized 134 Mg Capsule PO 134 mg DAILY KIMBERLY Administration Guaifenesin 600 mg 10/17/20 09:02 10/17/20 15:23 Guaifenesin La 600 Mg Tab.Er.12h PO 600 mg Q12H PRN Administration Cough Hydroxyzine HCl 50 mg 10/17/20 07:19 Hydroxyzine Hcl 50 Mg Tablet PO BID PRN anxiety Ampicillin Sodium/Sulbactam 100 mls @ 200 mls/hr 10/17/20 02:00 10/18/20 03:10 Sodium 3 gm/ Sodium Chloride IV Infused Q8H KIMBERLY Infusion Insulin Human Lispro 0 unit 10/17/20 07:30 10/18/20 08:04 Insulin Lispro 100 Unit/Ml 3 Ml Vial SUBCUT 2 unit QIDACHS [facility] Administration Protocol Lisinopril 2.5 mg 10/17/20 09:00 10/18/20 08:03 Lisinopril 2.5 Mg Tablet PO 2.5 mg DAILY KIMBERLY Administration Protocol Mirtazapine 45 mg 10/17/20 21:00 10/17/20 21:53 Mirtazapine 15 Mg Tablet PO 45 mg BEDTIME KIMBERLY Administration Nicotine 21 mg 10/17/20 09:00 10/17/20 09:01 Nicotine 21 Mg Patch.Td24 TRANSDERMA 21 mg DAILY KIMBERLY Administration Non-Formulary Medication 50 mg 10/17/20 09:00 Bethanechol Chloride PO BID KIMBERLY Non-Formulary Medication 0.25 mg 10/17/20 07:19 Hyoscyamine Sulfate PO TID-QID PRN dyspepsia Omeprazole 20 mg 10/17/20 07:46 10/18/20 05:54 Omeprazole 20 Mg Capsule. PO 20 mg BID@0630,1630 KIMBERLY Administration Ondansetron HCl 4 mg 10/17/20 00:46 Ondansetron Hcl 4 Mg/2 Ml Vial IVPUSH Q8H PRN Nausea and Vomiting Pregabalin 75 mg 10/17/20 09:00 10/18/20 08:02 Pregabalin 75 Mg Capsule PO 75 mg TID KIMBERLY Administration Quetiapine Fumarate 50 mg 10/17/20 21:00 10/17/20 21:53 Quetiapine Fumarate 50 Mg Tablet PO 50 mg BEDTIME KIMBERLY Administration Senna 17.2 mg 10/17/20 09:08 Sennosides 8.6 Mg Tablet PO BID PRN constipation Simethicone 80 mg 10/17/20 07:47 Simethicone 80 Mg Tab.Chew PO BID PRN Gastrointestinal Spasms Or Cramping Sodium Chloride 3 ml 10/17/20 00:46 10/18/20 08:01 0.9 % Sodium Chloride Flush 3 Ml Syringe IVFLUSH 3 ml QSHIFT KIMBERLY Administration Tizanidine HCl 6 mg 10/17/20 08:00 Tizanidine Hcl 4 Mg Tablet PO Q12H PRN Muscle Spasm Vitamin D 50 mcg 10/17/20 09:00 10/18/20 08:02 Cholecalciferol (Vitamin D3) 25 Mcg Tablet PO 50 mcg DAILY KIMBERLY Administration Vitamin E 180 mg 10/17/20 09:00 10/18/20 08:03 Vitamin E (Dl,Tocopheryl Acet) 180 Mg (400 Unit) Capsule PO 180 mg DAILY KIMBERLY Administration Labs CBC & Chem 7: 10/17/20 05:20 10/17/20 05:20 Labs: Laboratory Results - last 24 hr 10/17/20 10/17/20 10/17/20 11:06 15:50 19:55 POC Glucose 194 H 242 H 189 H 10/18/20 07:14 POC Glucose 164 H Microbiology Microbiology Results: Microbiology 10/16/20 19:35 Blood Culture - Preliminary Blood - Venous No growth after 24 hours. 10/16/20 18:33 Blood Culture - Preliminary Blood - Venous No growth after 24 hours. Quality Stroke Does the patient have a stroke diagnosis?: No VTE Prior VTE?: No VTE Risk Level:: Medical - moderate - high VTE Device Contraindication: Treatment Not Indicated VTE Drug Contraindication: N/A - Med Ordered Assessment and Plan (1) Acute respiratory failure with hypoxia: Status: Acute (2) Pneumonia: Status: Acute (3) Sepsis: Status: Acute Assessment and Plan: 60-year-old female with past medical history of hypertension, fibromyalgia, diabetes who presents to the hospital with persistent cough and shortness breath # sepsis secondary to pneumonia likely aspiration - fever resolved, persistent leukocytosis likely due to steroid, clinically improving - continue IV Unasyn day 2, continue supportive care with oxygen cough medication, follow CBC # acute hypoxic respiratory failure - secondary to pneumonia and undiagnosed COPD, patient not on home oxygen will gradually wean, and obtain home O2 eval if continue to require oxygen - strongly recommended to abstain from smoking , add DuoNeb scheduled and as needed, will recommend pulmonary eval as outpatient - COVID-19 negative # tobacco use disorder continue nicotine patch # diabetes Blood sugars stable,hold Metformin d/t contrast yesterday continue sliding scale insulin and diabetic diet # fibromyalgia - continue pregabalin # IBS - continue home medications # depression - continue home medications DVT prophylaxis: Lovenox
[2020-10-18] MEDS: Nicotine 21 MG PATCH.TD24 TRANSDERMA (11:03)
--- NOTE | 2020-10-18 12:14 | MHC.CM.PN ---
CM MET WITH PT AND HER S/O WHO WAS AT BEDSIDE. 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 PT REPORTS SHE USES ONLY A CPAP FOR DME. PT COMPLETED A HCP TODAY NAMING HER , ELTON ([phone]) HER AGENT. SHE ALSO CONFIRMS THAT HER LISTED PCP, GÓMEZ OCHOA, IS ACCURATE. IMM DELIVERED CURRENT DC PLAN IS HOME WITH RESUMPTION OF [employer] WORK[employer] COMPOSITES. TO TRANSPORT
[2020-10-18 12:44] LABS: Glucose, Whole Blood 378 mg/dL (60-115)
[2020-10-18] MEDS: Acetaminophen 325 MG TABLET 650 MG PO (12:47)
[2020-10-18] MEDS: Albuterol/Iprat 2.5/0.5MG 3 ML AMPUL.NEB INHALE ×2 (13:12→20:01)
[2020-10-18 16:17] LABS: Glucose, Whole Blood 214 mg/dL (60-115)
[2020-10-18 19:55] LABS: Glucose, Whole Blood 112 mg/dL (60-115)
[2020-10-18] MEDS: Mirtazapine 15 MG TABLET 45 MG PO (20:29)
[2020-10-18] MEDS: QUEtiapine Fumarate 50 MG TABLET PO (20:30)
[2020-10-18] MEDS: Doxazosin Mesylate 1 MG TABLET PO (20:30)
[2020-10-18] MEDS: Atorvastatin Calcium 80 MG TABLET PO (20:30)
[2020-10-19] VITALS (7 sets, daily range): BP systolic 96–122; BP diastolic 59–62; PULSE 97–113; RESP 18–20; TEMP 36–37.1; O2SAT 90–94
[2020-10-19] MEDS: 0.9 % Sodium Chloride Flush 3 ML SYRINGE IVFLUSH ×2 (00:29→08:37)
[2020-10-19] MEDS: Enoxaparin Sodium 40 MG/0.4 ML SYRINGE SUBCUT (03:00)
[2020-10-19] MEDS: Ampicillin Sodium/Sulbactam Na 3 GM in 0.9 % Sodium Chloride 100 ML IV ×2 (03:00→08:35)
[2020-10-19] MEDS: Omeprazole 20 MG CAPSULE.DR PO (05:52)
[2020-10-19 06:32] LABS: MANUAL DIFF FLAG NO
[2020-10-19 06:47] LABS: Basophils Percent Auto 0.3 % (0-2); Eosinophils Absolute Auto 0.1 X10*3/uL (0.0-0.4); Eosinophils Percent Auto 0.7 % (0-4); Hematocrit 37.6 % (37-47); Hemoglobin 11.8 g/dl (12.0-16.0); Imm Gran Abs Auto 0.46 X10*3/uL (0.00-0.03); Imm Gran Pct Auto 3.9 % (0.0-0.4); Lymphocytes Absolute Auto 2.5 X10*3/uL (1.2-4.9); Lymphocytes Percent Auto 21.7 % (20-40); Mean Corpuscular HGB Conc 31.4 g/dl (31.0-35.0); Mean Corpuscular Hemoglobin 29.2 pg (27.0-33.0); Mean Corpuscular Volume 93.1 fL (80-98); Mean Platelet Volume 9.7 fL (9.4-12.3); Monocytes Absolute Auto 0.8 X10*3/uL (0.1-1.2); Monocytes Percent Auto 7.1 % (2-11); Neutrophils Absolute Auto 7.8 X10*3/uL (2.0-8.3); Neutrophils Percent Auto 66.3 % (45-73); Platelet Count 363 X10*3/uL (160-400); Red Blood Count 4.04 X10*6/uL (4.20-5.50); Red Cell Distribution Width 14.2 % (11.0-16.0); White Blood Count 11.7 X10*3/uL (4.8-10.8)
[2020-10-19 07:26] LABS: Glucose, Whole Blood 143 mg/dL (60-115)
--- NOTE | 2020-10-19 07:31 | HE.PHANOTE ---
Spoke to Nurse taking care of [id number] about asking patient to bring in their non-formulary medications from home. The nurse said she would ask the patient if they plan on bringing them in and she will call me back with the details. -Sweta Martinez, PharmD [phone]
[2020-10-19] MEDS: Cholecalciferol (Vitamin D3) 25 MCG TABLET 50 MCG PO (08:36)
[2020-10-19] MEDS: Pregabalin 75 MG CAPSULE PO (08:36)
[2020-10-19] MEDS: Dicyclomine HCl 10 MG CAPSULE 20 MG PO (08:36)
[2020-10-19] MEDS: Vitamin E (Dl,Tocopheryl Acet) 180 MG (400 UNIT) CAPSULE PO (08:36)
[2020-10-19] MEDS: Nicotine 21 MG PATCH.TD24 TRANSDERMA (08:36)
[2020-10-19] MEDS: DULoxetine HCl 60 MG CAPSULE.DR PO (08:36)
[2020-10-19] MEDS: Fenofibrate,Micronized 134 MG CAPSULE PO (08:36)
[2020-10-19] MEDS: lisinopriL 2.5 MG TABLET PO (08:38)
[2020-10-19 11:08] LABS: Glucose, Whole Blood 247 mg/dL (60-115)
[2020-10-19] MEDS: Insulin Lispro 100 UNIT/ML 3 ML VIAL SUBCUT (11:20)
[2020-10-19] MEDS: Albuterol/Iprat 2.5/0.5MG 3 ML AMPUL.NEB INHALE (13:39)
--- NOTE | 2020-10-19 13:49 | MHC.CM.PN ---
Per ROUNDS discussion, Patient may be medically cleared for dc today if O2 can be weaned. 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
--- NOTE | 2020-10-19 14:54 | PM.DS ---
DS: Providers Provider Date of Service: 10/19/20 Date of admission: 10/16/20 22:55 Primary care physician: Reina Farmer MD DS: Diagnosis Discharge Diagnosis (1) Acute respiratory failure with hypoxia: Status: Acute (2) Pneumonia: Status: Acute (3) Sepsis: Status: Acute DS: Medications Discharge Medications Home Medications: Home Medications Medication Instructions Recorded Confirmed fenofibrate micronized 134 mg 134 mg PO DAILY 01/21/20 10/17/20 capsule lisinopril 2.5 mg tablet 2.5 mg PO DAILY 01/21/20 10/16/20 vitamin E (dl, acetate) 400 unit 400 unit PO DAILY 01/21/20 10/16/20 capsule blood sugar diagnostic #10 ea 06/25/20 09/10/20 cholecalciferol (vitamin D3) 50 50 mcg PO DAILY 06/25/20 10/16/20 mcg (2,000 unit) capsule diclofenac sodium 1 % topical gel 2 g TOPICAL QID 06/25/20 10/16/20 guaifenesin 600 mg tablet, 600 mg PO Q12H PRN 06/25/20 10/16/20 extended release 12 hr hydroxyzine HCl 50 mg tablet 50 mg PO BID PRN 06/25/20 10/16/20 metformin 500 mg tablet 500 mg PO BID 06/25/20 10/16/20 mirtazapine 45 mg tablet 45 mg PO BEDTIME 06/25/20 10/16/20 nicotine 21 mg/24 hr daily 1 patch TOPICAL DAILY 06/25/20 10/16/20 transdermal patch tizanidine 2 mg tablet 6 mg PO Q12H PRN 06/25/20 10/16/20 simethicone 125 mg chewable tablet 250 mg PO BID PRN 07/02/20 10/16/20 quetiapine 50 mg tablet 50 mg PO BEDTIME 08/27/20 10/16/20 atorvastatin 1 tab PO BEDTIME 10/17/20 10/17/20 duloxetine 1 cap PO BID 10/17/20 10/17/20 Previous Rx's Medication Instructions Recorded terazosin 1 mg capsule 1 mg PO BEDTIME 30 Days #30 cap 05/15/20 pregabalin 75 mg capsule 75 mg PO TID #90 cap 07/24/20 sennosides 8.6 mg capsule 17.2 mg PO BID PRN 30 Days #60 cap 08/13/20 bethanechol chloride 50 mg tablet 50 mg PO BID 90 Days #180 tab 08/27/20 hyoscyamine sulfate 0.125 mg 0.25 mg PO TID-QID PRN 30 Days #60 09/10/20 sublingual tablet tab omeprazole magnesium 20 mg 20 mg PO BID 30 Days #60 cap 09/14/20 capsule,delayed release methylcellulose (laxative) 500 mg 1,000 mg PO DAILY 30 Days #60 tab 09/22/20 tablet albuterol sulfate 2 puff INHALATION Q4-6H PRN #8.5 g 10/07/20 dicyclomine 20 mg tablet 20 mg PO TID 30 Days #90 tab 10/13/20 amoxicillin-pot clavulanate 875 mg PO Q12H #10 tab 10/19/20 benzonatate 200 mg PO TID PRN #20 cap 10/19/20 DS: Summary Hospital Course Hospital Course: 60-year-old female with past medical history of diabetes, fibromyalgia, hypertension, who presents to the hospital with complaints of persistent cough and shortness of breath. Patient reports about 2 weeks ago she had a pop: That went down the wrong way and she started coughing for straight whole day, her symptoms did not resolve and slowly worsened. She was seen in the hospital ago and was started on steroid for presumed COPD although patient denies history of COPD or asthma. Patient went home, took prednisone for about a week, but continued to persistent cough, and shortness of breath. She is a chronic smoker but never been diagnosed with COPD. She denies any fever but has chills, denies any chest pain, no abdominal pain, no nausea or vomiting, no diarrhea constipation, no urinary symptoms and no lower extremity edema. On arrival to the ED patient's vital significant for a fever of 102.7, heart rate of 106, respiratory rate of 28, satting 89% on room air Labs are significant for WBC count of 20.2, hemoglobin of 11.3, BNP of [address] angiograms negative for PE but shows airspace disease in the right lung most likely reflects multifocal pneumonia most evident in the right lower lobe where there is dense consolidation Hospital course 60-year-old female with past medical history of hypertension, fibromyalgia, diabetes who presents to the hospital with cough and shortness breath and diagnosed to have sepsis secondary to pneumonia likely aspiration, patient treated with IV Unasyn, symptoms of fever shortness of breath resolved therefore she is being discharged home on by mouth Augmentin to finish a total 7 day course of antibiotic she has been strongly advised to abstain from smoking, patient was also noted to have hypoxia and diagnosed with acute hypoxic respiratory failure, secondary to pneumonia and undiagnosed COPD, oxygen has been weaned patient oxygen remains stable 91-92%, patient did not qualify for home oxygen she has been recommended to have outpatient follow-up with pulmonology to undergo pulmonary function test, COVID-19 negative. In regard to tobacco use disorder recommend to continue nicotine patch. Time Spent with Patient Time attestation: Total time spent providing and/or coordinating discharge services: Discharge coordination time: Greater than 30 minutes Quality: Stroke Does the patient have a stroke diagnosis?: No Physical Exam Vital Signs: Vital Signs: Last Vital Signs Temp 98.1 F 10/19/20 11:02 Pulse 113 H 10/19/20 11:02 Resp 20 10/19/20 11:02 BP 100/60 10/19/20 11:02 Pulse Ox 91 L 10/19/20 12:05 Body Mass Index 33.8 General no acute distress. Neck is supple no JVD. CVS regular rate rhythm, Respiratory lungs clear to auscultation , no respiratory distress, no wheeze, no rhonchi Gastrointestinal abdomen soft, nontender, bowel sounds audible, no guarding , no rigidity. Extremities no edema. Neuro nonfocal ,speech clear. Skin no rash DS: Data Data Completed and Pending Labs on day of discharge: Laboratory Results - last 24 hr 10/18/20 10/18/20 10/19/20 16:08 19:44 05:51 WBC 11.7 H RBC 4.04 L Hgb 11.8 L Hct 37.6 MCV 93.1 MCH 29.2 MCHC 31.4 RDW 14.2 Plt Count 363 MPV 9.7 Immature Gran % (Auto) 3.9 H Neut % (Auto) 66.3 Lymph % (Auto) 21.7 Faulkner % (Auto) 7.1 Eos % (Auto) 0.7 Baso % (Auto) 0.3 Lymph # (Auto) 2.5 Faulkner # (Auto) 0.8 Eos # (Auto) 0.1 Baso # (Auto) 0.0 Abs Immat Gran (auto) 0.46 H Absolute Neuts (auto) 7.8 Absolute Nucleated RBC 0.000 Nucleated RBC % (auto) 0.0 POC Glucose 214 H 112 10/19/20 10/19/20 07:18 11:04 WBC RBC Hgb Hct MCV MCH MCHC RDW Plt Count MPV Immature Gran % (Auto) Neut % (Auto) Lymph % (Auto) Faulkner % (Auto) Eos % (Auto) Baso % (Auto) Lymph # (Auto) Faulkner # (Auto) Eos # (Auto) Baso # (Auto) Abs Immat Gran (auto) Absolute Neuts (auto) Absolute Nucleated RBC Nucleated RBC % (auto) POC Glucose 143 H 247 H Preliminary micro results at discharge 10/16/20 19:35 Blood Culture - Preliminary Blood - Venous No growth after 48 hours. 10/16/20 18:33 Blood Culture - Preliminary Blood - Venous No growth after 48 hours. Discharge Plan Discharge Patient Disposition: Home, Self-Care Discharge Diagnosis: Acute respiratory failure due to hypoxia Pneumonia Tobacco use disorder Referrals: Reina Farmer MD [Primary Care Provider] - 1 Week Discharge Medications: New benzonatate 100 mg Capsule 200 mg PO TID PRN (Reason: Cough) Qty: 20 RF: 0 amoxicillin-pot clavulanate 875-125 mg Tablet 875 mg PO Q12H Qty: 10 RF: 0 Continued pregabalin 75 mg capsule 75 mg PO TID Qty: 90 RF: 5 senna 8.6 mg capsule 17.2 mg PO BID PRN (Reason: constipation) 30 Days Qty: 60 RF: 3 omeprazole magnesium [Acid Cattle Trader (omeprazole)] 20 mg capsule,delayed release(DR/EC) 20 mg PO BID 30 Days Qty: 60 RF: 4 Fiber Laxative (methylcellulo) 500 mg tablet 1,000 mg PO DAILY 30 Days Qty: 60 RF: 2 dicyclomine 20 mg tablet 20 mg PO TID 30 Days Qty: 90 RF: 3 albuterol sulfate 90 mcg/actuation HFA aerosol inhaler 2 puff inhalation Q4-6H PRN (Reason: shortness of breath or wheezing) Qty: 8.5 RF: 0 atorvastatin 80 mg tablet 1 tab PO BEDTIME RF: 0 duloxetine 60 mg capsule,delayed release(DR/EC) 1 cap PO BID RF: 0 simethicone [Gas Relief (simethicone)] 125 mg tablet,chewable 250 mg PO BID PRN (Reason: Gastrointestinal Spasms Or Cramping) RF: 0 quetiapine 50 mg tablet 50 mg PO BEDTIME RF: 0 bethanechol chloride 50 mg tablet 50 mg PO BID 90 Days Qty: 180 RF: 1 hyoscyamine sulfate 0.125 mg tablet, sublingual 0.25 mg PO TID-QID PRN (Reason: dyspepsia) 30 Days Qty: 60 RF: 3 lisinopril 2.5 mg tablet 2.5 mg PO DAILY RF: 0 vitamin E (dl, acetate) 400 unit capsule 400 unit PO DAILY RF: 0 fenofibrate micronized 134 mg capsule 134 mg PO DAILY RF: 0 terazosin 1 mg capsule 1 mg PO BEDTIME 30 Days Qty: 30 RF: 0 mirtazapine 45 mg tablet 45 mg PO BEDTIME RF: 0 hydroxyzine HCl 50 mg tablet 50 mg PO BID PRN (Reason: anxiety) RF: 0 tizanidine 2 mg tablet 6 mg PO Q12H PRN (Reason: Muscle Spasm) RF: 0 cholecalciferol (vitamin D3) 50 mcg (2,000 unit) capsule 50 mcg PO DAILY RF: 0 diclofenac sodium 1 % gel 2 g topical QID RF: 0 nicotine 21 mg/24 hr patch 24 hour 1 patch topical DAILY RF: 0 metformin 500 mg tablet 500 mg PO BID RF: 0 guaifenesin 600 mg tablet extended release 12hr 600 mg PO Q12H PRN (Reason: Cough) RF: 0 Discontinued ondansetron HCl 8 mg tablet 8 mg PO Q12H 30 Days Qty: 60 RF: 2 No Action (DME) FreeStyle Lite Strips Strip See Rx Instructions ea Not Applicable BID Qty: 10 RF: 0 Discharge Orders: Discharge Order (Routine); Ordered 10/19/20 Ordered By: Noemi Truong Diet: advance to usual diet and low fat, low cholesterol Activity on Discharge: As tolerated Stand Alone Forms: Patient Portal Discharge page Care Plan Goals: You have pneumonia take Augmentin for 5 more days, continue nicotine patch completely abstain from smoking, use cough medication as needed for the next 4-5 days, use albuterol puffer 2 puffs Q 4 hour as needed for shortness of breath Health Concerns: Continue all other medications as before Plan of Treatment: Outpatient follow-up with primary care physician in next 7-10 days Assessment: As above Discharge Date/Time: 10/19/20 16:00
--- NOTE | 2020-10-19 15:03 | MHC.CM.PN ---
Patient has been medically cleared for dc to home today, no services. Last IMM addressed on 10/17/20.
== END 2020-10-19 16:00 | disposition home or self-care (01) | DRG 871 ==
LOC: HO.ED 21:35 → HO.EDOVER 23:14 → HO.IMC 10-17 03:30
PROVIDERS: Internal Medicine; Admitting Provider Internal Medicine; Emergency Provider Internal Medicine; PCP Family Medicine; Visit Provider Hospitalist
DX: A41.9 Sepsis, unspecified organism (principal); J69.0 Pneumonitis due to inhalation of food and vomit; J96.01 Acute respiratory failure with hypoxia; F17.210 Nicotine dependence, cigarettes, uncomplicated; Z71.6 Tobacco abuse counseling; G47.30 Sleep apnea, unspecified; F32.9 Major depressive disorder, single episode, unspecified; E11.9 Type 2 diabetes mellitus without complications; M79.7 Fibromyalgia; K58.9 Irritable bowel syndrome, unspecified; Z20.822 Contact with and (suspected) exposure to COVID-19; Z87.891 Personal history of nicotine dependence; Z79.84 Long term (current) use of oral hypoglycemic drugs; Z79.899 Other long term (current) drug therapy
CPT/HCPCS: 36415; 71275; 80048; 82803; 82947; 83605; 83880; 85025; 87040; 87635; 94640; 94644; 99285; J0295; J1650; J2543; J2930; Q9967

== ENCOUNTER → 2020-12-01 07:51 | Outpatient (BNVA) | payer OTHER, SELFPAY | PROVIDERS: PCP Family Medicine; Visit Provider Student in an Organized Health Care Education/Training Program | CPT/HCPCS: Q3014 ==

== ENCOUNTER → 2020-12-09 09:22 | Outpatient (BNVA) | payer OTHER, SELFPAY | PROVIDERS: PCP Nurse Practitioner; Visit Provider Internal Medicine Pulmonary Disease | DX: J44.9 Chronic obstructive pulmonary disease, unspecified (principal); R06.00 Dyspnea, unspecified | CPT/HCPCS: 99202 ==

== ENCOUNTER 2020-12-18 09:55 | Outpatient (REF) | payer OTHER, SELFPAY ==
--- NOTE | 2020-12-18 16:44 | PFT_ITS ---
FLOWS: FEV1 67% of predicted at 1.66 L. FVC 69% of predicted at 2.16 L. FEV1 to FVC ratio of 0.77. Positive bronchodilator response. LUNG VOLUMES: Total lung capacity 82% of predicted at 4.04 L. Residual volume 97% of predicted at 1.87 L. Slow vital capacity 72% of predicted at 2.17 L. Expiratory reserve volume 21% of predicted at 0.18 L. Diffusion capacity is severely decreased, diffusion capacity adjusts to being moderately decreased after correction for alveolar ventilation. IMPRESSION: Moderate obstructive ventilatory defect with positive bronchodilator response. Decreased expiratory reserve volume suggests extrathoracic restriction likely secondary to abdominal obesity. Decreased diffusion capacity suggests emphysema. MD CASPER Mcgee/MODL / [id number]
== END 2020-12-18 09:56 | disposition home or self-care (01) ==
LOC: HO.RESP 09:55
PROVIDERS: PCP Nurse Practitioner; Visit Provider Internal Medicine Pulmonary Disease
DX: J44.9 Chronic obstructive pulmonary disease, unspecified (principal)
CPT/HCPCS: 94060; 94727; 94729

== ENCOUNTER 2021-01-06 11:59 | Inpatient (IN) | payer OTHER, SELFPAY ==
[2021-01-06] VITALS (7 sets, daily range): BP systolic 120–143; BP diastolic 57–77; PULSE 94–114; RESP 18–28; TEMP 37.1–38.3; O2SAT 86–96; BMI 31.8
--- NOTE | ~2021-01-06 | XR_ITS ---
EXAMINATION: XR CHEST CLINICAL INFORMATION: Shortness of breath. Fever. COMPARISON: Chest radiograph dated 10/07/[address] chest dated 10/16/2020. TECHNIQUE: 2 views of the chest were obtained. FINDINGS: Patchy bilateral airspace opacities, increased within the upper lobes when compared to the prior CT. Decrease in right lower lobe confluent airspace consolidation. No pleural effusion or pneumothorax. Stable cardiomediastinal silhouette. XR/XR chest 2V IMPRESSION: Patchy bilateral airspace opacities, which are increased within the upper lobes. Interval decrease in the previously seen right lower lobe confluent airspace consolidation.
[2021-01-06 13:16] LABS: COVID-19 Test Negative (Negative)
[2021-01-06 14:47] LABS: MANUAL DIFF FLAG NO
[2021-01-06 14:48] LABS: Basophils Percent Auto 0.3 % (0-2); Eosinophils Absolute Auto 0.1 X10*3/uL (0.0-0.4); Eosinophils Percent Auto 0.4 % (0-4); Hematocrit 30.6 % (37-47); Hemoglobin 9.6 g/dl (12.0-16.0); Imm Gran Abs Auto 0.14 X10*3/uL (0.00-0.03); Imm Gran Pct Auto 1.2 % (0.0-0.4); Lymphocytes Absolute Auto 1.3 X10*3/uL (1.2-4.9); Lymphocytes Percent Auto 11.2 % (20-40); Mean Corpuscular HGB Conc 31.4 g/dl (31.0-35.0); Mean Corpuscular Hemoglobin 26.8 pg (27.0-33.0); Mean Corpuscular Volume 85.5 fL (80-98); Mean Platelet Volume 9.4 fL (9.4-12.3); Monocytes Absolute Auto 0.9 X10*3/uL (0.1-1.2); Monocytes Percent Auto 7.3 % (2-11); Neutrophils Absolute Auto 9.3 X10*3/uL (2.0-8.3); Neutrophils Percent Auto 79.6 % (45-73); Platelet Count 444 X10*3/uL (160-400); Red Blood Count 3.58 X10*6/uL (4.20-5.50); Red Cell Distribution Width 15.3 % (11.0-16.0); White Blood Count 11.7 X10*3/uL (4.8-10.8)
[2021-01-06] MEDS: Acetaminophen 325 MG TABLET 650 MG PO ×2 (14:50→21:36)
[2021-01-06 14:57] LABS: Lactic Acid 1.5 mmol/L (0.5-2.0)
[2021-01-06 15:00] LABS: Anion Gap 16 (12-20); Blood Urea Nitrogen 30 mg/dL (9-16); Calcium 9.9 mg/dL (8.4-10.2); Carbon Dioxide 16 mmol/L (22-29); Chloride 108 mmol/L (96-108); Estimated Glomerular Filt Rate 34; Glucose Random 115 mg/dL (60-115); Potassium 4.4 mmol/L (3.3-5.1); Sodium 136 mmol/L (135-145)
[2021-01-06] MEDS: Albuterol Sulfate (0.083%) 2.5 MG/3 ML VIAL.NEB INHALE (18:20)
[2021-01-06] MEDS: Albuterol/Iprat 2.5/0.5MG 3 ML AMPUL.NEB INHALE (18:20)
[2021-01-06] MEDS: Magnesium Sulfate/H2O 2 GM/50 ML PIGGYBACK IV (18:24)
[2021-01-06] MEDS: methylPREDNISolone Sod Succ 125 MG/2 ML VIAL IVPUSH (18:24)
[2021-01-06 18:40] LABS: Alanine Aminotransferase 25 U/L (0-31); Albumin Level 4.3 g/dL (3.5-5.0); Alkaline Phosphatase 100 U/L (39-117); Aspartate Amino Transferase 38 U/L (5-31); Bilirubin Direct 0.3 mg/dL (0.0-0.5); Bilirubin Total 0.4 mg/dL (0.0-1.0); Lipase 28 U/L (8-78); Total Protein 8.1 g/dL (6.5-8.0)
[2021-01-06] MEDS: cefTRIAXone sodium 1 GM in 0.9 % Sodium Chloride 50 ML IV (18:43)
[2021-01-06 18:45] LABS: Troponin-I High Sensitivity 5.3 ng/L (<3.5-17.0)
[2021-01-06] MEDS: Azithromycin 500 MG in 0.9 % Sodium Chloride 250 ML 125 MG IV (19:13)
--- NOTE | 2021-01-06 19:24 | ED_ITS ---
HPI - SOB/Dyspnea General Chief Complaint: Dyspnea Stated Complaint: flu like symptoms Time Seen by Provider: 01/06/21 17:34 Source: patient Mode of arrival: ambulatory Limitations: no limitations History of Present Illness HPI Narrative: 60-year-old female came in for evaluation of shortness of breath, symptoms started about 4 days ago, symptoms have been constant, patient also is complaining of sore throat, body ache, chills, subjective fever, and productive cough with greenish sputum, patient had a history of COPD with acute respiratory failure, patient recently stopped smoking few months ago. Patient had similar symptoms when she had pneumonia. No chest pain, no orthopnea, no paroxysmal nocturnal dyspnea. Related Data Home Medications Medication Instructions Recorded Confirmed fenofibrate micronized 134 mg 134 mg PO DAILY 01/21/20 10/17/20 capsule lisinopril 2.5 mg tablet 2.5 mg PO DAILY 01/21/20 10/16/20 vitamin E (dl, acetate) 180 mg 400 unit PO DAILY 01/21/20 10/16/20 (400 unit) capsule blood sugar diagnostic #10 ea 06/25/20 09/10/20 cholecalciferol (vitamin D3) 50 50 mcg PO DAILY 06/25/20 10/16/20 mcg (2,000 unit) capsule diclofenac sodium 1 % topical gel 2 g TOPICAL QID 06/25/20 10/16/20 guaifenesin 600 mg tablet, 600 mg PO Q12H PRN 06/25/20 10/16/20 extended release 12 hr hydroxyzine HCl 50 mg tablet 50 mg PO BID PRN 06/25/20 10/16/20 metformin 500 mg tablet 500 mg PO BID 06/25/20 10/16/20 mirtazapine 45 mg tablet 45 mg PO BEDTIME 06/25/20 10/16/20 nicotine 21 mg/24 hr daily 1 patch TOPICAL DAILY 06/25/20 10/16/20 transdermal patch tizanidine 2 mg tablet 6 mg PO Q12H PRN 06/25/20 10/16/20 simethicone 125 mg chewable tablet 250 mg PO BID PRN 07/02/20 10/16/20 (Gas Relief (simethicone)) quetiapine 50 mg tablet 50 mg PO BEDTIME 08/27/20 10/16/20 atorvastatin 80 mg tablet 1 tab PO BEDTIME 10/17/20 10/17/20 duloxetine 60 mg capsule,delayed 1 cap PO BID 10/17/20 10/17/20 release Previous Rx's Medication Instructions Recorded terazosin 1 mg capsule 1 mg PO BEDTIME 30 Days #30 cap 05/15/20 pregabalin 75 mg capsule 75 mg PO TID #90 cap 07/24/20 bethanechol chloride 50 mg tablet 50 mg PO BID 90 Days #180 tab 08/27/20 hyoscyamine sulfate 0.125 mg 0.25 mg PO TID-QID PRN 30 Days #60 09/10/20 sublingual tablet tab omeprazole magnesium 20 mg 20 mg PO BID 30 Days #60 cap 09/14/20 capsule,delayed release (Acid Senior Javascript Developer (omeprazole)) methylcellulose (laxative) 500 mg 1,000 mg PO DAILY 30 Days #60 tab 09/22/20 tablet (Fiber Laxative (methylcellulose)) albuterol sulfate 90 mcg/actuation 2 puff INHALATION Q4-6H PRN #8.5 g 10/07/20 aerosol inhaler dicyclomine 20 mg tablet 20 mg PO TID 30 Days #90 tab 10/13/20 amoxicillin 875 mg-potassium 875 mg PO Q12H #10 tab 10/19/20 clavulanate 125 mg tablet benzonatate 100 mg capsule 200 mg PO TID PRN #20 cap 10/19/20 sennosides 8.6 mg capsule (senna) 17.2 mg PO BID PRN 30 Days #60 cap 12/04/20 umeclidinium 62.5 mcg-vilanterol 1 inh INHALATION DAILY 30 Days #1 12/09/20 25 mcg/actuation powdr for ea inhalation (Anoro Ellipta) Allergies Allergy/AdvReac Type Severity Reaction Status Date / Time oxycodone [Percocet] Allergy Intermediate Itching Verified 12/09/20 09:27 Vicodin Allergy Intermediate itching Uncoded 01/21/20 15:29 Review of Systems Review of Systems: All other systems are reviewed and are negative Constitutional: Reports as per HPI and Reports no additional constitutional complaints Eyes: Reports as per HPI and Reports no additional eye complaints Reports system reviewed and no additional complaints, except as documented Cardiovascular: Reports as per HPI and Reports no additional cardiovascular complaints Respiratory: Reports as per HPI and Reports no additional respiratory complaints Gastrointestinal: Reports as per HPI and Reports no additional gastrointestinal complaints Genitourinary: Reports no additional female genitourinary complaints Musculoskeletal: Reports no additional musculoskeletal complaints Skin/Breast: Reports system reviewed and no additional complaints, except as docu Psychiatric: Reports no additional psychiatric complaints Endocrine: Reports no additional endocrine complaints Hematologic/Lymphatic: Reports no additional hematologic/lymphatic complaints Allergic/Immunologic: Reports no additional allergic/immunologic complaints Reports system reviewed and no additional complaints, except as documented and Reports Abnormal speech present [facility] Past Medical History Medical History Depression Diabetes mellitus Dysphagia, pharyngoesophageal phase Fibromyalgia GERD without esophagitis History of colon polyps Hx of hereditary disease IBS (irritable bowel syndrome) Steatohepatitis Urinary retention with incomplete bladder emptying Surgical History History of colonoscopy Hx of cholecystectomy Hx of endoscopy Hx of total knee replacement Hx of tubal ligation Family History Family History Father History of heart attack Hx of type 1 diabetes mellitus Mother Alive and well Social History Social History Household Members: Spouse Housing: House Do you presently have visiting nurse or other home services: Yes ([employer] for 12h rs/week) Alcohol intake: never Patient Tobacco Use Status: Former Tobacco user Tobacco use type: Cigarette Cigarette Packs Per Day: 0.5 Cigarettes Per Day: 10.0 Use of substances other than those prescribed or required for medical reasons: No Advance Directives: No service: No Current occupational status: unemployed Physical Exam Vital Signs: Vital Signs: Last Vital Signs Temp 99.3 F 01/06/21 17:32 Pulse 94 01/06/21 18:21 Resp 20 01/06/21 17:32 BP 120/57 L 01/06/21 17:32 Pulse Ox 96 01/06/21 18:13 Body Mass Index 31.8 Vital signs have been reviewed as appeared to be correct. Blood pressure normal. Heart rate normal. Respiration rate normal. Temperature normal. Oxygen saturation normal. Appearance: Alert. Oriented X3. No acute distress. Head: Normal external exam. Normocephalic. Atraumatic. No Darby signs noted. No raccoon eyes noted Eyes: PERRLA. EOMI. Conjunctiva and sclera normal. Eyelids normal. ENT: TM's Normal. Pharynx normal. Uvula midline. Moist mucous membranes. No trismus noted. No drooling noted. No muffled voice noted. Neck: Normal inspection. Neck supple. FROM. No adenopathy. Thyroid Normal. No meningeal signs. No neck mass noted. CVS: Normal heart rate and rhythm. Heart sound normal. No murmurs noted. Pulses normal throughout. Respiratory: No respiratory distress. Painless inspiration. Bilateral diffuse expiratory wheeze, with prolonged expiratory phase, decreased breathing sounds in the right lower lung field. No accessory muscle usage noted or decreased air movement noted. Abdomen: Soft and nontender. Bowel sounds normal in all 4 quadrants. No distention noted. No organomegaly noted. No visible injury noted. Back: No CVA tenderness. Full range of motion noted. Skin: Skin warm and dry. Normal skin color. Normal skin turgor. No rashes/lesions/lacerations noted. Extremities: No lower extremity edema. Extremities exhibit normal range of motion. Extremities nontender. Neuro: Oriented X 3. Cranial nerve exam: II-XII are grossly intact No motor deficit. No sensory deficit. Reflexes normal. Course Course Course Narrative: Assessment and plan. 60-year-old female with history of COPD and acute respiratory failure in the past, presented with symptoms consistent with COPD exacerbation, patient also has a pneumonia with no criteria for SIRS. Admit/bronchodilator/Solu-Medrol/antibiotic. MDM - SOB/Dyspnea Medical Records Attestation: I reviewed the patient's medical records. Lab Data Attestation: I reviewed the patient's lab results. Result diagrams: 01/06/21 14:33 01/06/21 14:33 Labs: Lab Results 01/06/21 01/06/21 01/06/21 Range/Units 12:42 14:33 14:33 WBC 11.7 H (4.8-10.8) X10*3/uL RBC 3.58 L (4.20-5.50) X10*6/uL Hgb 9.6 L (12.0-16.0) g/dl Hct 30.6 L (37-47) % MCV 85.5 (80-98) fL MCH 26.8 L (27.0-33.0) pg MCHC 31.4 (31.0-35.0) g/dl RDW 15.3 (11.0-16.0) % Plt Count 444 H (160-400) X10*3/uL MPV 9.4 (9.4-12.3) fL Immature Gran % (Auto) 1.2 H (0.0-0.4) % Neut % (Auto) 79.6 H (45-73) % Lymph % (Auto) 11.2 L (20-40) % Chambers % (Auto) 7.3 (2-11) % Eos % (Auto) 0.4 (0-4) % Baso % (Auto) 0.3 (0-2) % Lymph # (Auto) 1.3 (1.2-4.9) X10*3/uL Chambers # (Auto) 0.9 (0.1-1.2) X10*3/uL Eos # (Auto) 0.1 (0.0-0.4) X10*3/uL Baso # (Auto) 0.0 (0.0-0.2) X10*3/uL Abs Immat Gran (auto) 0.14 H (0.00-0.03) X10*3/uL Absolute Neuts (auto) 9.3 H (2.0-8.3) X10*3/uL Absolute Nucleated RBC 0.000 (0.0-0.012) X10*3/uL Nucleated RBC % (auto) 0.0 (0.0-0.2) /100WBC Sodium 136 (135-145) mmol/L Potassium 4.4 (3.3-5.1) mmol/L Chloride 108 (96-108) mmol/L Carbon Dioxide 16 L (22-29) mmol/L Anion Gap 16 (12-20) BUN 30 H D (9-16) mg/dL Creatinine 1.57 H (0.5-1.4) mg/dL Estim Creat Clear Calc 39.0 Estimated GFR 34 Random Glucose 115 (60-115) mg/dL Lactic Acid (0.5-2.0) mmol/L Calcium 9.9 (8.4-10.2) mg/dL Total Bilirubin (0.0-1.0) mg/dL Direct Bilirubin (0.0-0.5) mg/dL AST (5-31) U/L ALT (0-31) U/L Alkaline Phosphatase (39-117) U/L Troponin I High Sens (<3.5-17.0) ng/L Total Protein (6.5-8.0) g/dL Albumin (3.5-5.0) g/dL Lipase (8-78) U/L COVID-19 (SHAY) Negative (Negative) COVID-19 Clin Com See Note 01/06/21 01/06/21 01/06/21 Range/Units 14:33 18:18 18:18 WBC (4.8-10.8) X10*3/uL RBC (4.20-5.50) X10*6/uL Hgb (12.0-16.0) g/dl Hct (37-47) % MCV (80-98) fL MCH (27.0-33.0) pg MCHC (31.0-35.0) g/dl RDW (11.0-16.0) % Plt Count (160-400) X10*3/uL MPV (9.4-12.3) fL Immature Gran % (Auto) (0.0-0.4) % Neut % (Auto) (45-73) % Lymph % (Auto) (20-40) % Chambers % (Auto) (2-11) % Eos % (Auto) (0-4) % Baso % (Auto) (0-2) % Lymph # (Auto) (1.2-4.9) X10*3/uL Chambers # (Auto) (0.1-1.2) X10*3/uL Eos # (Auto) (0.0-0.4) X10*3/uL Baso # (Auto) (0.0-0.2) X10*3/uL Abs Immat Gran (auto) (0.00-0.03) X10*3/uL Absolute Neuts (auto) (2.0-8.3) X10*3/uL Absolute Nucleated RBC (0.0-0.012) X10*3/uL Nucleated RBC % (auto) (0.0-0.2) /100WBC Sodium (135-145) mmol/L Potassium (3.3-5.1) mmol/L Chloride (96-108) mmol/L Carbon Dioxide (22-29) mmol/L Anion Gap (12-20) BUN (9-16) mg/dL Creatinine (0.5-1.4) mg/dL Estim Creat Clear Calc Estimated GFR Random Glucose (60-115) mg/dL Lactic Acid 1.5 (0.5-2.0) mmol/L Calcium (8.4-10.2) mg/dL Total Bilirubin 0.4 (0.0-1.0) mg/dL Direct Bilirubin 0.3 (0.0-0.5) mg/dL AST 38 H (5-31) U/L ALT 25 (0-31) U/L Alkaline Phosphatase 100 (39-117) U/L Troponin I High Sens 5.3 (<3.5-17.0) ng/L Total Protein 8.1 H (6.5-8.0) g/dL Albumin 4.3 (3.5-5.0) g/dL Lipase 28 (8-78) U/L COVID-19 (SHAY) (Negative) COVID-19 Clin Com Imaging Data Chest x-ray: Radiologist's impression: Patchy bilateral airspace opacities, which are increased within the upper lobes. Interval decrease in the previously seen right lower lobe confluent airspace consolidation. Discharge Plan Discharge Clinical Impression: Community acquired pneumonia, Acute exacerbation of chronic obstructive airways disease Patient Disposition: Admitted As Inpatient
--- NOTE | 2021-01-06 20:25 | P.HPHOSP_ITS ---
History of Present Illness Date of Service: 01/06/21 Chief Complaint: SOB 60-year-old female with history of Of COPD, diabetes, GERD, depression, IBS presents to the hospital with complaints of shortness of breath, coughing, increased sputum production, fever, and chills. Patient reports that her symptoms started about 1 week ago worsening over the last few days. She is also having tightness in the chest with coughing and deep inspiration. She denies having any headache or change in vision, no abdominal pain nausea or vomiting, no urinary symptoms and no lower extremity edema. Denies any numbness tingling or weakness. Patient reports that she is supposed to be on oxygen at baseline but has not had her equipment delivered to her and is waiting insurance approval. On arrival to the ED patient found to have a temp of 101?, heart rate of 114, respiratory rate of 18, blood pressure of 143/65, satting 86-90% on room air. Patient currently on 2 L nasal cannula satting 94%. On arrival to the ED labs are significant for WBC count of 11.7, hemoglobin of 9.6, BUN of 30, creatinine of 1.57 with a baseline around 0.99, Chest x-ray showed patchy bilateral service opacities, Airspace opacities increased within the upper lobe, interval decrease in the previously seen right lower lobe confluent airspace consolidation. Patient will be admitted for further management Review of Systems Review of Systems: Yes all other systems are reviewed and are negative [facility] Medical History Depression Diabetes mellitus Dysphagia, pharyngoesophageal phase Fibromyalgia GERD without esophagitis History of colon polyps Hx of hereditary disease IBS (irritable bowel syndrome) Steatohepatitis Urinary retention with incomplete bladder emptying Family History Father History of heart attack Hx of type 1 diabetes mellitus Mother Alive and well Pertinent family history: No pertinent family history Surgical History History of colonoscopy Hx of cholecystectomy Hx of endoscopy Hx of total knee replacement Hx of tubal ligation Social History Household Members: Spouse Housing: House Do you presently have visiting nurse or other home services: Yes (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) Alcohol intake: never Patient Tobacco Use Status: Former Tobacco user Tobacco use type: Cigarette Cigarette Packs Per Day: 0.5 Cigarettes Per Day: 10.0 Use of substances other than those prescribed or required for medical reasons: No Advance Directives: No service: No Current occupational status: unemployed Meds Allergies Allergy/AdvReac Type Severity Reaction Status Date / Time oxycodone [Percocet] Allergy Intermediate Itching Verified 12/09/20 09:27 Vicodin Allergy Intermediate itching Uncoded 01/21/20 15:29 Active Medications: Current Medications Pharmacy Consult (Consult Rx Perform Med Rec) 1 each MISCELLANE ONCE PRN PRN Reason: Consult order Home Medications Medication Instructions Recorded Confirmed Last Taken Type fenofibrate micronized 134 mg 134 mg PO DAILY 01/21/20 01/06/21 01/06/21 History capsule blood sugar diagnostic #10 ea 06/25/20 09/10/20 Unknown History cholecalciferol (vitamin D3) 50 50 mcg PO DAILY 06/25/20 01/06/21 01/06/21 History mcg (2,000 unit) capsule diclofenac sodium 1 % topical gel 2 g TOPICAL QID 06/25/20 01/06/21 01/06/21 History hydroxyzine HCl 50 mg tablet 50 mg PO BID PRN 06/25/20 01/06/21 01/06/21 History mirtazapine 45 mg tablet 45 mg PO BEDTIME 06/25/20 01/06/21 01/05/21 History tizanidine 2 mg tablet 6 mg PO Q12H PRN 06/25/20 01/06/21 01/06/21 History quetiapine 50 mg tablet 50 mg PO BEDTIME 08/27/20 01/06/21 01/05/21 History atorvastatin 80 mg tablet 1 tab PO BEDTIME 10/17/20 01/06/21 01/05/21 History duloxetine 60 mg capsule,delayed 1 cap PO BID 10/17/20 01/06/21 01/06/21 History release empagliflozin 10 mg tablet 1 tab PO DAILY 01/06/21 01/06/21 01/06/21 History (Jardiance) lisinopril 10 1 tab PO DAILY 01/06/21 01/06/21 01/06/21 History mg-hydrochlorothiazide 12.5 mg tablet metformin 500 mg tablet 2 tab PO BID 01/06/21 01/06/21 01/06/21 History Physical Exam Vital Signs and Narrative: Vital Signs: Last Vital Signs Temp 99.3 F 01/06/21 17:32 Pulse 94 01/06/21 18:21 Resp 20 01/06/21 17:32 BP 120/57 L 01/06/21 17:32 Pulse Ox 96 01/06/21 18:13 Body Mass Index 31.8 Const: General: cooperative and no acute distress Orientation/consciousness: patient oriented x3 Eyes: General: appearance normal, both eyes and all related structures Resp: Other: Bilateral crackles Effort & Inspection: normal respiratory effort Cardio: Rate: regular rate Rhythm: regular rhythm GI: Palpation (GI): Soft to palpation Auscultation: normal bowel sounds Skin: General skin exam: no rashes or lesions noted Neuro: General: patient oriented x3 Cognition (Neuro): normal cognition Extrem: General: Yes normal to inspection and Yes no pedal edema Results Labs CBC and Chem 7: 01/06/21 14:33 01/06/21 14:33 Labs: Laboratory Results - last 24 hr 01/06/21 01/06/21 01/06/21 12:42 14:33 14:33 MCV 85.5 MCH 26.8 L MCHC 31.4 RDW 15.3 Plt Count 444 H MPV 9.4 Immature Gran % (Auto) 1.2 H Neut % (Auto) 79.6 H Lymph % (Auto) 11.2 L Baldwin % (Auto) 7.3 Eos % (Auto) 0.4 Baso % (Auto) 0.3 Lymph # (Auto) 1.3 Baldwin # (Auto) 0.9 Eos # (Auto) 0.1 Baso # (Auto) 0.0 Abs Immat Gran (auto) 0.14 H Absolute Neuts (auto) 9.3 H Absolute Nucleated RBC 0.000 Nucleated RBC % (auto) 0.0 Anion Gap 16 Estim Creat Clear Calc 39.0 Estimated GFR 34 Random Glucose 115 Lactic Acid Calcium 9.9 Total Bilirubin Direct Bilirubin AST ALT Alkaline Phosphatase Troponin I High Sens Total Protein Albumin Lipase COVID-19 (SHAY) Negative COVID-19 Clin Com See Note 01/06/21 01/06/21 01/06/21 14:33 18:18 18:18 MCV MCH MCHC RDW Plt Count MPV Immature Gran % (Auto) Neut % (Auto) Lymph % (Auto) Baldwin % (Auto) Eos % (Auto) Baso % (Auto) Lymph # (Auto) Baldwin # (Auto) Eos # (Auto) Baso # (Auto) Abs Immat Gran (auto) Absolute Neuts (auto) Absolute Nucleated RBC Nucleated RBC % (auto) Anion Gap Estim Creat Clear Calc Estimated GFR Random Glucose Lactic Acid 1.5 Calcium Total Bilirubin 0.4 Direct Bilirubin 0.3 AST 38 H ALT 25 Alkaline Phosphatase 100 Troponin I High Sens 5.3 Total Protein 8.1 H Albumin 4.3 Lipase 28 COVID-19 (SHAY) COVID-19 Clin Com Imaging Radiologist's Impressions: Impressions Chest X-Ray 01/06/21 14:54 IMPRESSION: Patchy bilateral airspace opacities, which are increased within the upper lobes. Interval decrease in the previously seen right lower lobe confluent airspace consolidation. Assessment and Plan (1) Community acquired pneumonia: Status: Acute (2) COPD exacerbation: Status: Acute (3) Sepsis: Status: Acute (4) Acute respiratory failure with hypoxia: Status: Acute (5) ELIZABET (acute kidney injury): Status: Acute This is a 60-year-old female with past medical history of COPD, diabetes who presents to the hospital with complaints of shortness of breath cough and increased sputum production found to have pneumonia # sepsis - secondary to pneumonia - findings of bilateral patchy infiltrates on chest x-ray - COVID-19 negative - patient tachycardic, febrile, has leukocytosis - will start on IV antibiotic - blood cultures # community-acquired pneumonia - chest x-ray with bilateral patchy infiltrates - febrile, leukocytosis - started on IV antibiotics - follow cultures - O2 as required # acute hypoxic respiratory failure - patient found to be hypoxic with 86% on room air - secondary to COPD exacerbation as well as pneumonia - unlikely to be secondary to CHF S she has no clinical findings of volume o verload - continue O2 as required - titrate oxygen as tolerated # COPD exacerbation - has dyspnea, cough, decreased sputum production - was started on DuoNeb, Solu-Medrol 40 IV b.i.d. - IV antibiotics as above # ELIZABET - has elevated creatinine of 1.5 with a baseline of 0.9 - will start on IV fluids pending BNP although does not appear to be in volume overload clinically - follow BMP # diabetes - hold oral antihyperglycemics - start low-dose sliding scale insulin - diabetic diet # depression - continue home medication # hypertension -stable - continue home combination pill of lisinopril and hydrochlorothiazide Otherwise will continue home medications DVT prophylaxis: lovenox Quality Stroke Does the patient have a stroke diagnosis?: No VTE Prior VTE?: No VTE Risk Level:: Medical - moderate - high VTE Device Contraindication: Treatment Not Indicated VTE Drug Contraindication: N/A - Med Ordered
[2021-01-06] MEDS: QUEtiapine Fumarate 50 MG TABLET PO (21:36)
[2021-01-06] MEDS: Atorvastatin Calcium 80 MG TABLET PO (21:36)
[2021-01-06] MEDS: DULoxetine HCl 60 MG CAPSULE.DR PO (21:36)
[2021-01-06] MEDS: Mirtazapine 15 MG TABLET 45 MG PO (21:36)
--- NOTE | 2021-01-06 22:35 | MHC.CM.PN ---
CM met with admitted patient with bed assignment pending. IMM reviewed and signed 01/06/2021@2200. HCP on file. HCP/ Aby Salmeron ([phone]). Pt lives with . Daughter is ATMOSPHERIC PHYSICIST-20 hours/week through [facility]. Pt is fully vaccinated with [employer]. Pt tells CM that she is in the process of getting insurance to approve home oxygen. Unable to verify at this time. Pt may need respiratory evaluation prior to discharge. D/C plan is home with continuation of existing services. Transportation by family. CM to follow for d/c needs.
[2021-01-06] MEDS: Enoxaparin Sodium 40 MG/0.4 ML SYRINGE SUBCUT (22:57)
[2021-01-07] VITALS (14 sets, daily range): BP systolic 116–144; BP diastolic 67–81; PULSE 81–106; RESP 16–22; TEMP 36.1–37.1; O2SAT 92–96
[2021-01-07] MEDS: Omeprazole 20 MG CAPSULE.DR PO ×2 (06:47→10:04)
[2021-01-07 06:48] LABS: MANUAL DIFF FLAG NO
[2021-01-07] MEDS: methylPREDNISolone Sod Succ 40 MG/ML VIAL IVPUSH ×2 (06:48→18:40)
[2021-01-07 06:57] LABS: Basophils Percent Auto 0.2 % (0-2); Hematocrit 27.8 % (37-47); Hemoglobin 8.6 g/dl (12.0-16.0); Imm Gran Abs Auto 0.19 X10*3/uL (0.00-0.03); Imm Gran Pct Auto 2.3 % (0.0-0.4); Lymphocytes Absolute Auto 1.3 X10*3/uL (1.2-4.9); Lymphocytes Percent Auto 14.9 % (20-40); Mean Corpuscular HGB Conc 30.9 g/dl (31.0-35.0); Mean Corpuscular Hemoglobin 26.5 pg (27.0-33.0); Mean Corpuscular Volume 85.5 fL (80-98); Mean Platelet Volume 9.7 fL (9.4-12.3); Monocytes Absolute Auto 0.4 X10*3/uL (0.1-1.2); Monocytes Percent Auto 4.8 % (2-11); Neutrophils Absolute Auto 6.5 X10*3/uL (2.0-8.3); Neutrophils Percent Auto 77.8 % (45-73); Platelet Count 414 X10*3/uL (160-400); Red Blood Count 3.25 X10*6/uL (4.20-5.50); Red Cell Distribution Width 15.4 % (11.0-16.0); White Blood Count 8.4 X10*3/uL (4.8-10.8)
[2021-01-07 07:07] LABS: Anion Gap 14 (12-20); Blood Urea Nitrogen 26 mg/dL (9-16); Calcium 9.4 mg/dL (8.4-10.2); Carbon Dioxide 19 mmol/L (22-29); Chloride 112 mmol/L (96-108); Creatinine Clr Calc Pharmacy 55.7; Estimated Glomerular Filt Rate 51; Glucose Random 176 mg/dL (60-115); Potassium 4.4 mmol/L (3.3-5.1); Sodium 141 mmol/L (135-145)
[2021-01-07 07:31] LABS: B Type Natriuretic Peptide 37 pg/mL (<100)
[2021-01-07 08:18] LABS: Iron 20 mcg/dL (30-160)
[2021-01-07 08:29] LABS: Percent Iron Saturation 3 % (15-50); Total Iron Binding Capacity 588 mcg/dL (228-428); Unsaturated Iron Binding 568 ug/dL
[2021-01-07 08:36] LABS: Glucose, Whole Blood 165 mg/dL (60-115)
[2021-01-07 08:41] LABS: Ferritin 52 ng/mL (10-250)
[2021-01-07 09:16] LABS: Folate 14.3 ng/mL (> or = 4.0); Vitamin B12 685 pg/mL (200-900)
[2021-01-07] MEDS: Albuterol/Iprat 2.5/0.5MG 3 ML AMPUL.NEB INHALE ×4 (09:21→19:37)
[2021-01-07] MEDS: Bethanechol Chloride 25 MG TABLET 50 MG PO ×2 (10:04→21:16)
[2021-01-07] MEDS: Fenofibrate,Micronized 134 MG CAPSULE PO (10:04)
[2021-01-07] MEDS: DULoxetine HCl 60 MG CAPSULE.DR PO ×2 (10:04→21:15)
[2021-01-07] MEDS: hydroCHLOROthiazide 12.5 MG TABLET PO (10:05)
[2021-01-07] MEDS: Dicyclomine HCl 10 MG CAPSULE 20 MG PO ×3 (10:05→21:15)
[2021-01-07] MEDS: Insulin Lispro 100 UNIT/ML 3 ML VIAL SUBCUT ×2 (10:05→21:16)
[2021-01-07] MEDS: Cholecalciferol (Vitamin D3) 25 MCG TABLET 50 MCG PO (10:05)
[2021-01-07] MEDS: amLODIPine Besylate 2.5 MG TABLET PO (10:05)
[2021-01-07] MEDS: 0.9 % Sodium Chloride Flush 3 ML SYRINGE IVFLUSH ×3 (10:41→21:16)
--- NOTE | 2021-01-07 12:02 | PC.NURSE ---
took report on this pt at 11am, pt resting in bed, watching TV. continues to await bed assignment. pt reporting 7/10 back pain. will review MAR for pain medication,
[2021-01-07] MEDS: Acetaminophen 325 MG TABLET 650 MG PO (12:11)
[2021-01-07 12:16] LABS: Glucose, Whole Blood 118 mg/dL (60-115)
--- NOTE | 2021-01-07 14:24 | P.PNIM_ITS ---
Subjective Subjective Date of Service: 01/07/21 Interval History: COPD exacerbation, pneumonia. Review of Systems Patient still short of breath, talking in short sentences. Has cough also. She says that she is feeling slightly better than this morning. Denies any fever or chills or abdominal pain or nausea or vomiting. Physical Exam Vital Signs: Vital Signs: Last Vital Signs Temp 98 F 01/07/21 07:44 Pulse 92 01/07/21 12:00 Resp 19 01/07/21 12:00 BP 144/81 H 01/07/21 10:05 Pulse Ox 92 01/07/21 12:00 Body Mass Index 31.8 Appearance: Alert.? Oriented X3.? not in distress.? Eyes: Pupils equal, round and reactive to light.? Sclera nonicteric.? ENT: Pharynx normal.? Moist mucous membranes. cvs: rrr, [id number] , no murmur res: Diminished breath sounds, bilateral wheezing abd: no rebound or guarding ,nt, bs present. ext pulses present , no cyanosis ,Gait well balanced well coordinated. neuro: axo3 , nonfocal. Objective Data Active Medications Acetaminophen (Acetaminophen 325 Mg Tablet) 650 mg PO Q6H PRN PRN Reason: Pain, Mild (Pain Scale 1-3) Last Admin: 01/07/21 12:11 Dose: 650 mg Documented by: FAUSTINA Albuterol/Ipratropium (Albuterol/Iprat 2.5/0.5mg 3 Ml Ampul.Neb) 3 ml INHALE RQ4H WHILE AWAKE [facility] Last Admin: 01/07/21 11:31 Dose: 3 ml Documented by: ALEX Albuterol/Ipratropium (Albuterol/Iprat 2.5/0.5mg 3 Ml Ampul.Neb) 3 ml INHALE Q4H PRN PRN Reason: Shortness of Breath/Wheezing Amlodipine Besylate (Amlodipine Besylate 2.5 Mg Tablet) 2.5 mg PO DAILY [facility]; Protocol Last Admin: 01/07/21 10:05 Dose: 2.5 mg Documented by: SARATH Atorvastatin Calcium (Atorvastatin Calcium 80 Mg Tablet) 80 mg PO BEDTIME [facility] Last Admin: 01/06/21 21:36 Dose: 80 mg Documented by: FAUSTINA Bethanechol Chloride (Bethanechol Chloride 25 Mg Tablet) 50 mg PO BID [facility] Last Admin: 01/07/21 10:04 Dose: 50 mg Documented by: SRAATH Dextrose (Dextrose 50 % 25 Gm/50 Ml Vial) 25 gm IVPUSH Q15M PRN; Protocol PRN Reason: per Hypoglycemia Standing Ord. Dicyclomine HCl (Dicyclomine Hcl 10 Mg Capsule) 20 mg PO TID [facility] Last Admin: 01/07/21 10:05 Dose: 20 mg Documented by: SARATH Docusate Sodium (Docusate Sodium 100 Mg Capsule) 100 mg PO DAILY PRN PRN Reason: Constipation Duloxetine HCl (Duloxetine Hcl 60 Mg Capsule.Dr) 60 mg PO BID [facility] Last Admin: 01/07/21 10:04 Dose: 60 mg Documented by: SARATH Enoxaparin Sodium (Enoxaparin Sodium 40 Mg/0.4 Ml Syringe) 40 mg SUBCUT Q24H [facility] Last Admin: 01/06/21 22:57 Dose: 40 mg Documented by: FAUSTINA Fenofibrate (Fenofibrate,Micronized 134 Mg Capsule) 134 mg PO DAILY [facility] Last Admin: 01/07/21 10:04 Dose: 134 mg Documented by: SARATH Glucose (Glucose Gel 15 Gm Gel..Gram.) 15 gm PO Q15M PRN; Protocol PRN Reason: per Hypoglycemia Standing Ord. Hydrochlorothiazide (Hydrochlorothiazide 12.5 Mg Tablet) 12.5 mg PO DAILY [facility] Last Admin: 01/07/21 10:05 Dose: 12.5 mg Documented by: SARATH Hydroxyzine HCl (Hydroxyzine Hcl 50 Mg Tablet) 50 mg PO BID PRN PRN Reason: anxiety Ceftriaxone Sodium 1 gm/ (Sodium Chloride) 50 mls @ 100 mls/hr IV Q24H [facility] Azithromycin 500 mg/ Sodium (Chloride) 250 mls @ 125 mls/hr IV Q24H [facility] Insulin Human Lispro (Insulin Lispro 100 Unit/Ml 3 Ml Vial) 0 unit SUBCUT QIDACHS [facility]; Protocol Last Admin: 01/07/21 12:12 Dose: Not Given Documented by: FAUSTINA Non-Admin Reason: No Insulin Coverage Methylprednisolone Sodium Succinate (Methylprednisolone Sod Succ 40 Mg/Ml Vial) 40 mg IVPUSH Q12H [facility] Last Admin: 01/07/21 06:48 Dose: 40 mg Documented by: ADELFO Mirtazapine (Mirtazapine 15 Mg Tablet) 45 mg PO BEDTIME [facility] Last Admin: 01/06/21 21:36 Dose: 45 mg Documented by: FAUSTINA Non-Formulary Medication (Diclofenac Sodium) 2 gm TOPICAL QID [facility] Non-Formulary Medication (Umeclidinium-Vilanterol [Anoro Ellipta]) 1 inhalation INHALE DAILY [facility] Omeprazole (Omeprazole 20 Mg Capsule.) 20 mg PO BID@0630,1630 [facility] Last Admin: 01/07/21 10:04 Dose: 20 mg Documented by: SARATH Omeprazole (Omeprazole 20 Mg Capsule.) 20 mg PO BID@0630,1630 [facility] Last Admin: 01/07/21 10:42 Dose: Not Given Documented by: SARATH Non-Admin Reason: Duplicate Order Ondansetron HCl (Ondansetron Hcl 4 Mg/2 Ml Vial) 4 mg IVPUSH Q8H PRN PRN Reason: Nausea and Vomiting Pharmacy Consult (Consult Rx Perform Med Rec) 1 each MISCELLANE ONCE PRN PRN Reason: Consult order Quetiapine Fumarate (Quetiapine Fumarate 50 Mg Tablet) 50 mg PO BEDTIME [facility] Last Admin: 01/06/21 21:36 Dose: 50 mg Documented by: FAUSTINA Senna (Sennosides 8.6 Mg Tablet) 17.2 mg PO BID PRN PRN Reason: constipation Sodium Chloride (0.9 % Sodium Chloride Flush 3 Ml Syringe) 3 ml IVFLUSH QSHIFT [facility] Last Admin: 01/07/21 10:41 Dose: 3 ml Documented by: SARATH Tizanidine HCl (Tizanidine Hcl 4 Mg Tablet) 6 mg PO Q12H PRN PRN Reason: Muscle Spasm Vitamin D (Cholecalciferol (Vitamin D3) 25 Mcg Tablet) 50 mcg PO DAILY [facility] Last Admin: 01/07/21 10:05 Dose: 50 mcg Documented by: SARATH Labs CBC & Chem 7: 01/07/21 06:19 01/07/21 06:19 Labs: Laboratory Results - last 24 hr 01/06/21 01/06/21 01/06/21 14:33 14:33 14:33 MCV 85.5 MCH 26.8 L MCHC 31.4 RDW 15.3 Plt Count 444 H MPV 9.4 Immature Gran % (Auto) 1.2 H Neut % (Auto) 79.6 H Lymph % (Auto) 11.2 L Castro % (Auto) 7.3 Eos % (Auto) 0.4 Baso % (Auto) 0.3 Lymph # (Auto) 1.3 Castro # (Auto) 0.9 Eos # (Auto) 0.1 Baso # (Auto) 0.0 Abs Immat Gran (auto) 0.14 H Absolute Neuts (auto) 9.3 H Absolute Nucleated RBC 0.000 Nucleated RBC % (auto) 0.0 Anion Gap 16 Estim Creat Clear Calc 39.0 Estimated GFR 34 POC Glucose Random Glucose 115 Lactic Acid 1.5 Calcium 9.9 Iron TIBC % Saturation Unsat Iron Binding Ferritin Total Bilirubin Direct Bilirubin AST ALT Alkaline Phosphatase Troponin I High Sens B-Natriuretic Peptide Total Protein Albumin Lipase Vitamin B12 Folate 01/06/21 01/06/21 01/07/21 18:18 18:18 06:16 MCV MCH MCHC RDW Plt Count MPV Immature Gran % (Auto) Neut % (Auto) Lymph % (Auto) Castro % (Auto) Eos % (Auto) Baso % (Auto) Lymph # (Auto) Castro # (Auto) Eos # (Auto) Baso # (Auto) Abs Immat Gran (auto) Absolute Neuts (auto) Absolute Nucleated RBC Nucleated RBC % (auto) Anion Gap Estim Creat Clear Calc Estimated GFR POC Glucose Random Glucose Lactic Acid Calcium Iron TIBC % Saturation Unsat Iron Binding Ferritin Total Bilirubin 0.4 Direct Bilirubin 0.3 AST 38 H ALT 25 Alkaline Phosphatase 100 Troponin I High Sens 5.3 B-Natriuretic Peptide Total Protein 8.1 H Albumin 4.3 Lipase 28 Vitamin B12 685 Folate 14.3 01/07/21 01/07/21 01/07/21 06:19 06:19 06:19 MCV 85.5 MCH 26.5 L MCHC 30.9 L RDW 15.4 Plt Count 414 H MPV 9.7 Immature Gran % (Auto) 2.3 H Neut % (Auto) 77.8 H Lymph % (Auto) 14.9 L Castro % (Auto) 4.8 Eos % (Auto) 0.0 Baso % (Auto) 0.2 Lymph # (Auto) 1.3 Castro # (Auto) 0.4 Eos # (Auto) 0.0 Baso # (Auto) 0.0 Abs Immat Gran (auto) 0.19 H Absolute Neuts (auto) 6.5 Absolute Nucleated RBC 0.000 Nucleated RBC % (auto) 0.0 Anion Gap 14 Estim Creat Clear Calc 55.7 Estimated GFR 51 POC Glucose Random Glucose 176 H Lactic Acid Calcium 9.4 Iron 20 L TIBC 588 H % Saturation 3 L Unsat Iron Binding 568 Ferritin 52 Total Bilirubin Direct Bilirubin AST ALT Alkaline Phosphatase Troponin I High Sens B-Natriuretic Peptide 37 Total Protein Albumin Lipase Vitamin B12 Folate 01/07/21 01/07/21 08:33 12:10 MCV MCH MCHC RDW Plt Count MPV Immature Gran % (Auto) Neut % (Auto) Lymph % (Auto) Castro % (Auto) Eos % (Auto) Baso % (Auto) Lymph # (Auto) Castro # (Auto) Eos # (Auto) Baso # (Auto) Abs Immat Gran (auto) Absolute Neuts (auto) Absolute Nucleated RBC Nucleated RBC % (auto) Anion Gap Estim Creat Clear Calc Estimated GFR POC Glucose 165 H 118 H Random Glucose Lactic Acid Calcium Iron TIBC % Saturation Unsat Iron Binding Ferritin Total Bilirubin Direct Bilirubin AST ALT Alkaline Phosphatase Troponin I High Sens B-Natriuretic Peptide Total Protein Albumin Lipase Vitamin B12 Folate Assessment and Plan (1) ELIZABET (acute kidney injury): Status: Acute (2) Acute respiratory failure with hypoxia: Status: Acute (3) COPD exacerbation: Status: Acute (4) Community acquired pneumonia: Status: Acute Assessment and Plan: 60-year-old female with past medical history of COPD, diabetes who presents to the hospital with complaints of shortness of breath cough and increased sputum production found to have pneumonia 1.sepsis- secondary to pneumonia findings of bilateral patchy infiltrates on chest x-ray,COVID-19 negative Leukocytosis improved, afebrile, tachycardia improving blood cultures pending will start on IV antibiotic-ceftriaxone/azithromycin day 2. 2,acute hypoxic respiratory failure secondary to COPD exacerbation/pneumonia. patient found to be hypoxic with 86% on room air- secondary to COPD exacerbation as well as pneumonia. - continue O2 as required, titrate oxygen as tolerated 3. COPD exacerbation: Slightly improving- has dyspnea, cough, decreased sputum production on DuoNeb, Solu-Medrol 40 IV b.i.d and IV antibiotics as above 4. ELIZABET Improving creatinine is near 1.1 Off IV fluids Encouraged for hydration 5. diabetes: fs 110-170 range - hold oral antihyperglycemics on low-dose sliding scale insulin - diabetic diet 6. depression - continue home medication 7. hypertension -stable hold lisinopril and hydrochlorothiazide due to elizabet , added amlodipine 8. normochromic anemia: Denies any melena or any acute blood loss Iron studies question iron deficiency Occult blood Monitor CBC, will add omeprazole. may need Gi eval. DVT prophylaxis: hold lovenox due to anemia , scd Quality Stroke Does the patient have a stroke diagnosis?: No VTE Prior VTE?: No VTE Risk Level:: Medical - moderate - high VTE Device Contraindication: Treatment Not Indicated VTE Drug Contraindication: N/A - Med Ordered
[2021-01-07 18:12] LABS: Glucose, Whole Blood 145 mg/dL (60-115)
[2021-01-07 18:12] LABS: Glucose, Whole Blood 138 mg/dL (60-115)
[2021-01-07] MEDS: cefTRIAXone sodium 1 GM in 0.9 % Sodium Chloride 50 ML IV (18:40)
[2021-01-07] MEDS: Azithromycin 500 MG in 0.9 % Sodium Chloride 250 ML 125 MG IV (19:22)
[2021-01-07] MEDS: Enoxaparin Sodium 40 MG/0.4 ML SYRINGE SUBCUT (21:15)
[2021-01-07] MEDS: Mirtazapine 15 MG TABLET 45 MG PO (21:15)
[2021-01-07] MEDS: QUEtiapine Fumarate 50 MG TABLET PO (21:15)
[2021-01-07] MEDS: Atorvastatin Calcium 80 MG TABLET PO (21:15)
[2021-01-07 21:29] LABS: Glucose, Whole Blood 244 mg/dL (60-115)
[2021-01-08] VITALS (12 sets, daily range): BP systolic 124–147; BP diastolic 60–75; PULSE 72–115; RESP 15–18; TEMP 36–36.8; O2SAT 94–97
[2021-01-08 05:30] LABS: Hematocrit 28.7 % (37-47); Hemoglobin 8.8 g/dl (12.0-16.0)
[2021-01-08] MEDS: methylPREDNISolone Sod Succ 40 MG/ML VIAL IVPUSH ×2 (05:39→18:25)
[2021-01-08] MEDS: Omeprazole 20 MG CAPSULE.DR PO ×2 (05:39→16:47)
[2021-01-08 07:51] LABS: Glucose, Whole Blood 145 mg/dL (60-115)
[2021-01-08] MEDS: Fenofibrate,Micronized 134 MG CAPSULE PO (08:43)
[2021-01-08] MEDS: Dicyclomine HCl 10 MG CAPSULE 20 MG PO ×3 (08:43→21:32)
[2021-01-08] MEDS: Cholecalciferol (Vitamin D3) 25 MCG TABLET 50 MCG PO (08:43)
[2021-01-08] MEDS: Bethanechol Chloride 25 MG TABLET 50 MG PO ×2 (08:43→21:32)
[2021-01-08] MEDS: hydroCHLOROthiazide 12.5 MG TABLET PO (08:44)
[2021-01-08] MEDS: amLODIPine Besylate 2.5 MG TABLET PO (08:44)
[2021-01-08] MEDS: DULoxetine HCl 60 MG CAPSULE.DR PO ×2 (08:44→21:33)
[2021-01-08] MEDS: 0.9 % Sodium Chloride Flush 3 ML SYRINGE IVFLUSH ×3 (08:49→21:34)
[2021-01-08] MEDS: Albuterol/Iprat 2.5/0.5MG 3 ML AMPUL.NEB INHALE ×4 (08:55→21:21)
--- NOTE | 2021-01-08 10:10 | HO.PM.IMPN ---
Subjective Subjective Date of Service: 01/08/21 Interval History: copd/pna Review of Systems Patient still short of breath, speaking in short sentences do improving since yesterday Has cough No fever chills Physical Exam Vital Signs: Vital Signs: Last Vital Signs Temp 96.8 F 01/08/21 07:54 Pulse 72 01/08/21 08:55 Resp 18 01/08/21 07:54 BP 147/69 H 01/08/21 08:44 Pulse Ox 97 01/08/21 07:54 Body Mass Index 31.8 Appearance:not in distress.? Eyes: Pupils equal, round and reactive to light.? Sclera nonicteric.? ENT: Pharynx normal.? Moist mucous membranes. cvs: rrr, [id number] , no murmur res:? Diminished breath sounds, bilateral wheezing abd: no rebound or guarding ,nt, bs present. ext pulses present , no cyanosis . neuro: axo3 , nonfocal. Objective Data Active Medications Acetaminophen (Acetaminophen 325 Mg Tablet) 650 mg PO Q6H PRN PRN Reason: Pain, Mild (Pain Scale 1-3) Last Admin: 01/07/21 12:11 Dose: 650 mg Documented by: FAUSTINA Albuterol/Ipratropium (Albuterol/Iprat 2.5/0.5mg 3 Ml Ampul.Neb) 3 ml INHALE RQ4H WHILE AWAKE [facility] Last Admin: 01/08/21 08:55 Dose: 3 ml Documented by: BRINA Albuterol/Ipratropium (Albuterol/Iprat 2.5/0.5mg 3 Ml Ampul.Neb) 3 ml INHALE Q4H PRN PRN Reason: Shortness of Breath/Wheezing Amlodipine Besylate (Amlodipine Besylate 2.5 Mg Tablet) 2.5 mg PO DAILY [facility]; Protocol Last Admin: 01/08/21 08:44 Dose: 2.5 mg Documented by: SOFIA Atorvastatin Calcium (Atorvastatin Calcium 80 Mg Tablet) 80 mg PO BEDTIME [facility] Last Admin: 01/07/21 21:15 Dose: 80 mg Documented by: BRIANNE Bethanechol Chloride (Bethanechol Chloride 25 Mg Tablet) 50 mg PO BID [facility] Last Admin: 01/08/21 08:43 Dose: 50 mg Documented by: SOFIA Dextrose (Dextrose 50 % 25 Gm/50 Ml Vial) 25 gm IVPUSH Q15M PRN; Protocol PRN Reason: per Hypoglycemia Standing Ord. Dicyclomine HCl (Dicyclomine Hcl 10 Mg Capsule) 20 mg PO TID [facility] Last Admin: 01/08/21 08:43 Dose: 20 mg Documented by: SOFIA Docusate Sodium (Docusate Sodium 100 Mg Capsule) 100 mg PO DAILY PRN PRN Reason: Constipation Duloxetine HCl (Duloxetine Hcl 60 Mg Capsule.Dr) 60 mg PO BID [facility] Last Admin: 01/08/21 08:44 Dose: 60 mg Documented by: SOFIA Enoxaparin Sodium (Enoxaparin Sodium 40 Mg/0.4 Ml Syringe) 40 mg SUBCUT Q24H [facility] Last Admin: 01/07/21 21:15 Dose: 40 mg Documented by: BRIANNE Fenofibrate (Fenofibrate,Micronized 134 Mg Capsule) 134 mg PO DAILY [facility] Last Admin: 01/08/21 08:43 Dose: 134 mg Documented by: SOFIA Glucose (Glucose Gel 15 Gm Gel..Gram.) 15 gm PO Q15M PRN; Protocol PRN Reason: per Hypoglycemia Standing Ord. Hydrochlorothiazide (Hydrochlorothiazide 12.5 Mg Tablet) 12.5 mg PO DAILY [facility] Last Admin: 01/08/21 08:44 Dose: 12.5 mg Documented by: SOFIA Hydroxyzine HCl (Hydroxyzine Hcl 50 Mg Tablet) 50 mg PO BID PRN PRN Reason: anxiety Ceftriaxone Sodium 1 gm/ (Sodium Chloride) 50 mls @ 100 mls/hr IV Q24H [facility] Last Infusion: 01/07/21 19:27 Dose: 0 mls/hr Documented by: BRIANNE Azithromycin 500 mg/ Sodium (Chloride) 250 mls @ 125 mls/hr IV Q24H [facility] Last Infusion: 01/07/21 21:23 Dose: 0 mls/hr Documented by: BRIANNE Insulin Human Lispro (Insulin Lispro 100 Unit/Ml 3 Ml Vial) 0 unit SUBCUT QIDACHS [facility]; Protocol Last Admin: 01/08/21 08:38 Dose: Not Given Documented by: SOFIA Non-Admin Reason: No Insulin Coverage Methylprednisolone Sodium Succinate (Methylprednisolone Sod Succ 40 Mg/Ml Vial) 40 mg IVPUSH Q12H [facility] Last Admin: 01/08/21 05:39 Dose: 40 mg Documented by: BRIANNE Mirtazapine (Mirtazapine 15 Mg Tablet) 45 mg PO BEDTIME [facility] Last Admin: 01/07/21 21:15 Dose: 45 mg Documented by: BRIANNE Non-Formulary Medication (Diclofenac Sodium) 2 gm TOPICAL QID [facility] Non-Formulary Medication (Umeclidinium-Vilanterol [Anoro Ellipta]) 1 inhalation INHALE DAILY [facility] Omeprazole (Omeprazole 20 Mg Capsule.Dr) 20 mg PO BID@0630,1630 [facility] Last Admin: 01/08/21 05:39 Dose: 20 mg Documented by: BRIANNE Ondansetron HCl (Ondansetron Hcl 4 Mg/2 Ml Vial) 4 mg IVPUSH Q8H PRN PRN Reason: Nausea and Vomiting Pharmacy Consult (Consult Rx Perform Med Rec) 1 each MISCELLANE ONCE PRN PRN Reason: Consult order Quetiapine Fumarate (Quetiapine Fumarate 50 Mg Tablet) 50 mg PO BEDTIME [facility] Last Admin: 01/07/21 21:15 Dose: 50 mg Documented by: BRIANNE Senna (Sennosides 8.6 Mg Tablet) 17.2 mg PO BID PRN PRN Reason: constipation Sodium Chloride (0.9 % Sodium Chloride Flush 3 Ml Syringe) 3 ml IVFLUSH QSHIFT [facility] Last Admin: 01/08/21 08:49 Dose: 3 ml Documented by: SOFIA Tizanidine HCl (Tizanidine Hcl 4 Mg Tablet) 6 mg PO Q12H PRN PRN Reason: Muscle Spasm Vitamin D (Cholecalciferol (Vitamin D3) 25 Mcg Tablet) 50 mcg PO DAILY [facility] Last Admin: 01/08/21 08:43 Dose: 50 mcg Documented by: SOFIA Labs CBC & Chem 7: 01/08/21 05:13 01/07/21 06:19 Labs: Laboratory Results - last 24 hr 01/07/21 01/07/21 01/07/21 12:10 17:41 18:07 POC Glucose 118 H 138 H 145 H 01/07/21 01/08/21 20:43 07:30 POC Glucose 244 H 145 H Microbiology Microbiology Results: Microbiology 01/06/21 14:32 Blood Culture - Preliminary Blood - Venous No growth after 24 hours. 10/06/21 14:32 Blood Culture - Preliminary Blood - Venous No growth after 24 hours. Assessment and Plan (1) Acute respiratory failure with hypoxia: Status: Acute (2) Sepsis: Status: Acute (3) COPD exacerbation: Status: Acute Assessment and Plan: day -3 60-year-old female with past medical history of COPD, diabetes who presents to the hospital with complaints of shortness of breath cough and increased sputum production found to have pneumonia 1.sepsis- secondary to pneumonia findings of bilateral patchy infiltrates on chest x-ray,COVID-19 negative Leukocytosis improved, afebrile, tachycardia improved , sepsis resolved . still sob, has significant cough and soarness ?blood cultures neg@24hrs will start on IV antibiotic-ceftriaxone/azithromycin day 3. 2,acute hypoxic respiratory failure secondary to COPD exacerbation/pneumonia. patient found to be hypoxic with 86% on room air- secondary to COPD exacerbation as well as pneumonia. taper O2 as required, titrate oxygen as tolerated 3. COPD exacerbation: Slightly improving- has dyspnea, cough, decreased sputum production ?on DuoNeb, Solu-Medrol 40 IV b.i.d and IV antibiotics as above 4. ELIZABET Improving creatinine is near 1.1 Off IV fluids Encouraged for hydration 5. diabetes:acceptale fs 140-200 range - hold oral antihyperglycemics on? low-dose sliding scale insulin - diabetic diet 6. depression - continue home medication 7. hypertension -stable hold lisinopril and hydrochlorothiazide due to elizabet , continue amlodipine 8. normochromic? anemia: Denies any melena or any acute blood loss Iron studies question iron deficiency Occult blood need to be sent Monitor CBC, will add omeprazole. may need Gi eval. DVT prophylaxis: hold lovenox due to anemia , scd Quality Stroke Does the patient have a stroke diagnosis?: No VTE Prior VTE?: No VTE Risk Level:: Medical - moderate - high VTE Device Contraindication: Treatment Not Indicated VTE Drug Contraindication: N/A - Med Ordered
[2021-01-08 11:22] LABS: Glucose, Whole Blood 167 mg/dL (60-115)
--- NOTE | 2021-01-08 12:37 | MHC.CM.PN ---
Per ROUNDS discussion, Patient is not yet medically cleared for dc (IV Azithromycin, IV Ceftriaxone, IV Solu Medrol). 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
[2021-01-08] MEDS: Insulin Lispro 100 UNIT/ML 3 ML VIAL SUBCUT ×3 (12:47→21:31)
[2021-01-08 14:27] LABS: OBS Int Ctl Valid YES; OBS1 POSITIVE (NEGATIVE)
[2021-01-08 16:26] LABS: Glucose, Whole Blood 157 mg/dL (60-115)
[2021-01-08] MEDS: cefTRIAXone sodium 1 GM in 0.9 % Sodium Chloride 50 ML IV (18:24)
[2021-01-08] MEDS: guaiFENesin 100 MG/5 ML LIQUID PO (18:42)
[2021-01-08] MEDS: Azithromycin 500 MG in 0.9 % Sodium Chloride 250 ML 125 MG IV (19:29)
[2021-01-08 19:59] LABS: Glucose, Whole Blood 175 mg/dL (60-115)
[2021-01-08] MEDS: Atorvastatin Calcium 80 MG TABLET PO (21:32)
[2021-01-08] MEDS: QUEtiapine Fumarate 50 MG TABLET PO (21:33)
[2021-01-08] MEDS: Mirtazapine 15 MG TABLET 45 MG PO (21:33)
[2021-01-09] VITALS (7 sets, daily range): BP systolic 126–167; BP diastolic 59–77; PULSE 72–110; RESP 17–18; TEMP 36.3–36.7; O2SAT 87–99
[2021-01-09] MEDS: methylPREDNISolone Sod Succ 40 MG/ML VIAL IVPUSH (06:31)
[2021-01-09] MEDS: Omeprazole 20 MG CAPSULE.DR PO ×2 (06:31→15:08)
[2021-01-09 07:40] LABS: Glucose, Whole Blood 138 mg/dL (60-115)
[2021-01-09] MEDS: Albuterol/Iprat 2.5/0.5MG 3 ML AMPUL.NEB INHALE ×2 (08:25→11:30)
[2021-01-09] MEDS: amLODIPine Besylate 2.5 MG TABLET PO (08:42)
[2021-01-09] MEDS: Bethanechol Chloride 25 MG TABLET 50 MG PO (08:42)
[2021-01-09] MEDS: Cholecalciferol (Vitamin D3) 25 MCG TABLET 50 MCG PO (08:42)
[2021-01-09] MEDS: 0.9 % Sodium Chloride Flush 3 ML SYRINGE IVFLUSH ×2 (08:43→14:29)
[2021-01-09] MEDS: Dicyclomine HCl 10 MG CAPSULE 20 MG PO ×2 (08:43→14:29)
[2021-01-09] MEDS: Fenofibrate,Micronized 134 MG CAPSULE PO (08:43)
[2021-01-09] MEDS: DULoxetine HCl 60 MG CAPSULE.DR PO (08:43)
[2021-01-09] MEDS: guaiFENesin 100 MG/5 ML LIQUID PO ×2 (08:53→15:08)
--- NOTE | 2021-01-09 10:24 | PM.DS ---
DS: Providers Provider Date of Service: 01/09/21 Date of admission: 01/06/21 20:43 Date of discharge: 01/09/21 Primary care physician: Micaela Hernandez DS: Diagnosis Discharge Diagnosis (1) Acute respiratory failure with hypoxia: Status: Acute (2) Sepsis: Status: Acute (3) COPD exacerbation: Status: Acute DS: Summary Hospital Course Hospital Course: 60-year-old female with history of Of COPD, diabetes, GERD, depression, IBS presents to the hospital with complaints of shortness of breath, coughing, increased sputum production, fever, and chills.? Patient reports that her symptoms started about 1 week ago worsening over the last few days.? She is also having tightness in the chest with coughing and deep inspiration.? She denies having any headache or change in vision, no abdominal pain nausea or vomiting, no urinary symptoms and no lower extremity edema.? Denies any numbness tingling or weakness. Patient reports that she is supposed to be on oxygen at baseline but has not had her equipment delivered to her and is waiting insurance approval. On arrival to the ED patient found to have a temp of 101?, heart rate of 114, respiratory rate of 18, blood pressure of 143/65, satting 86-90% on room air.? Patient currently on 2 L nasal cannula satting 94%. On arrival to the ED labs are significant for WBC count of 11.7, hemoglobin of 9.6, BUN of 30, creatinine of 1.57 with a baseline around 0.99, Chest x-ray showed patchy bilateral service opacities, Airspace opacities increased within the upper lobe, interval decrease in the previously seen right lower lobe confluent airspace consolidation. hospital course: Patient came with COPD exacerbation and pneumonia: Started on IV antibiotics, steroids and oxygen subsequently patient is seems to be improving. With the tilley seems to be near baseline, antibiotics switched to p.o. as well as steroid switched to p.o. on discharge. Home oxygen evaluation pending. Please repeat chest imaging study outpatient with PCP in 3-4 weeks to see resolution of pneumonia. elizabet: Hydrochlorothiazide and lisinopril was on hold, given gentle hydration. Creatinine improved to 1.1 which is near baseline. Patient is BMP needs to be repeated outpatient with PCP in next few days and start hydrochlorothiazide and lisinopril back. Diclofenac is hold due to the above reason also. Patient is to follow-up with PCP as well as Pulmonary out patiently for further management. Above management discussed with the patient in detail length with net development manager Miss Trevizo - patient understand and in agreement with the above plan, time spent 50 minutes and 50% time spent on counseling. Significant findings: As above. Procedures performed: None. Treatment and response: As above. Complications: None. Time Spent with Patient Time attestation: Total time spent providing and/or coordinating discharge services: Discharge coordination time: Greater than 30 minutes Quality: Stroke Does the patient have a stroke diagnosis?: No Physical Exam Vital Signs: Vital Signs: Last Vital Signs Temp 97.8 F 01/09/21 07:51 Pulse 100 01/09/21 08:42 Resp 18 01/09/21 07:51 BP 126/59 L 01/09/21 08:42 Pulse Ox 93 01/09/21 07:51 Body Mass Index 31.8 Appearance:not in distress.? Eyes: Pupils equal, round and reactive to light.? Sclera nonicteric.? ENT: Pharynx normal.? Moist mucous membranes. cvs: rrr, [id number] , no murmur res:?air entry seems improving , no wheezing or rales . abd: no rebound or guarding ,nt, bs present. ext pulses present , no cyanosis . neuro: axo3 , nonfocal. DS: Data Data Completed and Pending Labs on day of discharge: Laboratory Results - last 24 hr 01/08/21 01/08/21 01/08/21 11:12 13:38 16:20 POC Glucose 167 H 157 H Stool Occult Blood POSITIVE 01/08/21 01/09/21 19:48 07:19 POC Glucose 175 H 138 H Stool Occult Blood Preliminary micro results at discharge 01/06/21 14:32 Blood Culture - Preliminary Blood - Venous No growth after 48 hours. 01/06/21 14:32 Blood Culture - Preliminary Blood - Venous No growth after 48 hours. Additional Comments Additional comments: cxr: IMPRESSION: Patchy bilateral airspace opacities, which are increased within the upper lobes. Interval decrease in the previously seen right lower lobe confluent airspace consolidation. Discharge Plan Discharge Patient Disposition: Home, Self-Care Discharge Diagnosis: Acute hypoxemic respiratory failure secondary to COPD exacerbation/pneumonia. Sepsis secondary to pneumonia, ELIZABET. Referrals: Micaela Hernandez [Primary Care Provider] - 1 Week Discharge Medications: New cefuroxime axetil 500 mg tablet 500 mg PO BID Qty: 10 RF: 0 azithromycin 500 mg tablet 500 mg PO DAILY 5 Days Qty: 5 RF: 0 prednisone 20 mg tablet 20 mg PO BID Qty: 8 RF: 0 budesonide-formoterol 160-4.5 mcg/actuation HFA aerosol inhaler 2 puff inhalation BID Qty: 10.2 RF: 0 Continued pregabalin 75 mg capsule 75 mg PO TID Qty: 90 RF: 5 omeprazole magnesium [Acid Program Coordinator [employer] Education (omeprazole)] 20 mg capsule,delayed release(DR/EC) 20 mg PO BID 30 Days Qty: 60 RF: 4 dicyclomine 20 mg tablet 20 mg PO TID 30 Days Qty: 90 RF: 3 senna 8.6 mg capsule 17.2 mg PO BID PRN (Reason: constipation) 30 Days Qty: 60 RF: 3 albuterol sulfate 90 mcg/actuation HFA aerosol inhaler 2 puff inhalation Q4-6H PRN (Reason: shortness of breath or wheezing) Qty: 8.5 RF: 0 atorvastatin 80 mg tablet 1 tab PO BEDTIME RF: 0 duloxetine 60 mg capsule,delayed release(DR/EC) 1 cap PO BID RF: 0 metformin 500 mg tablet 2 tab PO BID RF: 0 Jardiance 10 mg tablet 1 tab PO DAILY RF: 0 quetiapine 50 mg tablet 50 mg PO BEDTIME RF: 0 bethanechol chloride 50 mg tablet 50 mg PO BID 90 Days Qty: 180 RF: 1 Anoro Ellipta 62.5-25 mcg/actuation blister with device 1 inh inhalation DAILY 30 Days Qty: 1 RF: 6 fenofibrate micronized 134 mg capsule 134 mg PO DAILY RF: 0 (DME) blood sugar diagnostic Strip See Rx Instructions ea Not Applicable BID Qty: 10 RF: 0 mirtazapine 45 mg tablet 45 mg PO BEDTIME RF: 0 hydroxyzine HCl 50 mg tablet 50 mg PO BID PRN (Reason: anxiety) RF: 0 tizanidine 2 mg tablet 6 mg PO Q12H PRN (Reason: Muscle Spasm) RF: 0 cholecalciferol (vitamin D3) 50 mcg (2,000 unit) capsule 50 mcg PO DAILY RF: 0 Held lisinopril-hydrochlorothiazide 10-12.5 mg tablet 1 tab PO DAILY RF: 0 Hold Instructions: Resume on 01/11/21. Please start after repeating BMP with PCP on Monday. diclofenac sodium 1 % gel 2 g topical QID RF: 0 Hold Instructions: Resume on 01/20/21. Discharge Orders: Discharge Order (Routine); Ordered 01/09/21 Ordered By: Royer Ly Diet: advance to usual diet, diabetic diet and low salt diet Activity on Discharge: As tolerated Stand Alone Forms: Patient Portal Discharge page Other Ambulatory Orders: Basic Metabolic Panel Fasting (Routine) Timeframe: 2 Days Facility: [facility] - Location: Laboratory Ordered By: Royer Ly Care Plan Goals: Patient came with COPD exacerbation and pneumonia: Started on IV antibiotics, steroids and oxygen subsequently patient is seems to be improving. With the tilley seems to be near baseline, antibiotics switched to p.o. as well as steroid switched to p.o. on discharge. Home oxygen evaluation pending. Please repeat chest imaging study outpatient with PCP in 3-4 weeks to see resolution of pneumonia. elizabet: Hydrochlorothiazide and lisinopril was on hold, given gentle hydration. Creatinine improved to 1.1 which is near baseline. Patient is BMP needs to be repeated outpatient with PCP in next few days and start hydrochlorothiazide and lisinopril back. Diclofenac is hold due to the above reason also. Health Concerns: as above. Plan of Treatment: As above. Assessment: As above.
--- NOTE | 2021-01-09 11:23 | MHC.CM.PN ---
Addendum entered by Micaela Lacey 01/09/21 14:04: PATIENT IS IN NEED OF HOME O2. 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 HER SPOUSE IS ON THE WAY IN TO PROVIDE TRANSPORTATION HOME. IMM 01/08 IN CHART.
[2021-01-09 11:44] LABS: Glucose, Whole Blood 165 mg/dL (60-115)
[2021-01-09] MEDS: Insulin Lispro 100 UNIT/ML 3 ML VIAL SUBCUT (11:57)
[2021-01-09] MEDS: Azithromycin 500 MG TABLET PO (15:08)
== END 2021-01-09 16:00 | disposition home or self-care (01) | DRG 871 ==
LOC: HO.ED 19:31 → HO.EDOVER 21:53 → HO.S3 01-07 16:41
PROVIDERS: Admitting Provider Internal Medicine; Emergency Provider Emergency Medicine; PCP Nurse Practitioner; Visit Provider Internal Medicine
DX: A41.9 Sepsis, unspecified organism (principal); J18.9 Pneumonia, unspecified organism; J96.01 Acute respiratory failure with hypoxia; N17.9 Acute kidney failure, unspecified; J44.0 Chronic obstructive pulmonary disease with (acute) lower respiratory infection; J44.1 Chronic obstructive pulmonary disease with (acute) exacerbation; K21.9 Gastro-esophageal reflux disease without esophagitis; D64.9 Anemia, unspecified; E11.9 Type 2 diabetes mellitus without complications; F32.9 Major depressive disorder, single episode, unspecified; Z20.822 Contact with and (suspected) exposure to COVID-19; Z87.891 Personal history of nicotine dependence; Z79.84 Long term (current) use of oral hypoglycemic drugs; Z79.899 Other long term (current) drug therapy
CPT/HCPCS: 36415; 71046; 80048; 80076; 82272; 82607; 82728; 82746; 82947; 83540; 83605; 83690; 83880; 84484; 85014; 85018; 85025; 87040; 87635; 94640; 99285; J0456; J0696; J1650; J2920; J2930; J3475

== ENCOUNTER → 2021-01-15 09:25 | Outpatient (REF) | payer OTHER, SELFPAY ==
--- NOTE | 2021-01-15 09:33 | CA_ITS ---
Transthoracic Echocardiogram Patient (Last, First, Middle): Sharri Salmeron, Gender: Female Date of : 1960 Age: 60 Procedure Date: 01/15/2021 Procedure Type: Transthoracic Echocardiogram Location: OP Height: 160.02 cm Weight: 81.65 kg BSA: 1.85 m2 Heart Rate: bpm BP: 136 / 78 mmHg Felt Hat Inspector And Packer: JL Referring MD: Maxi Lam MD Real Estate Investment Analyst: Bonifacio Mckinney MD Symptoms: R06.00 - Dyspnea, unspecified Study Quality: Good ECG Rhythm: Sinus Conclusions: - 1. Normal LV systolic function with mild LVH with impaired relaxation filling pattern 2. Fibrocalcific aortic valve changes noted with mildly increased gradient which may suggest early aortic stenosis 3. Normal RV systolic pressure 4. No pericardial effusion Findings Left Ventricle Normal left ventricular size and systolic function. There is mildly increased left ventricular wall thickness. The visually estimated ejection fraction is between 60-65%. Spectral Doppler is indicative of an impaired relaxation filling pattern. E/E prime ratio is between 8 and 15 consistent with indeterminate filling pressures. Right Ventricle Normal right ventricular cavity size and systolic function. Atria The left atrium is normal in size. Interatrial shunt cannot be excluded. The right atrium was not well visualized. Aortic Valve There is mild calcification of the aortic valve. There is no aortic valve regurgitation. Mitral Valve There is mild anterior and posterior mitral leaflet thickening. There is mild mitral annular calcification. There is trace mitral valve regurgitation. There is no mitral valve stenosis. Pulmonic Valve The pulmonic valve was not well visualized. Tricuspid Valve Likely normal tricuspid valve structure and function. There is trace tricuspid valve regurgitation. The right ventricular systolic pressure is normal. The right ventricular systolic pressure is 22 mmHg. Normal right atrial pressure. There is no evidence of pulmonary hypertension. Great Vessels All visible segments of the aorta are normal in size. The pulmonary artery was not well visualized. Venous The inferior vena cava is normal in size and collapses greater than 50% with inspiration. Pericardium/Pleural There is no evidence of pericardial effusion. Prior Study Comparison Changes noted compared to prior study dated: 01/13/2018. Mildly increased gradient across aortic valve, may suggest early aortic stenosis Measurements 2D Linear Measurements IVSd: 1.30 0.6-0.9/0.6-1.0 cm LVIDd: 3.76 3.9-5.3/4.2-5.9 cm LVIDd Index: 2.03 2.4-3.2/2.2-3.1 cm/m2 LVIDs: 2.35 2.0-3.6 cm LVPWd: 1.37 0.7-1.1 cm Ao Root: 2.90 2.1-3.5 cm LA Diam: 3.10 2.7-3.8/3.0-4.0 cm LAIDs Index: 1.68 1.5-2.3 cm/m2 LV Mass: 221.20 67-162/88-224 g LV Mass Index: 119.57 43-95/49-115 g/m2 LVOT Diam: 1.90 3.0+(-)1.3 cm 2D Systolic Function EF 4C: 60.20 >55% Mitral Valve MV Pk E: 0.74 MV PK A: 0.64 MV Decel Time: 114.00 E/A: 1.20 E'Lateral: 9.36 E'Medial: 5.87 E/E' Med: 12.60 E/E' Lat: 7.90 PHT: 33.00 MVA PHT: 6.67 Decel [place]: 6.48 Aortic Valve AoV Pk Willi: 1.85 AoV Pk Grad: 14.00 LVOT LVOT Pk Willi: 1.26 LVOT Mn Willi: 0.77 LVOT VTI: 0.25 LVOT Pk Grad: 6.00 LVOT Mn Grad: 3.00 LVOT Diam: 1.90 LVOT Area: 2.84 Diastolic Function MV Pk E: 0.74 MV Pk A: 0.64 E/A: 1.20 E'Medial: 5.87 E/E' Med: 12.60 E' Laterial: 9.36 E/E' Lat: 7.90 Right Ventricle TAPSE (mm): 2.07 Tricuspid Valve TR Pk Willi: 2.16 TR Pk Grad: 19.00 RA Press: 3.00 RVSP: 22.00 Great Vessels Aorta Ao Root-2D: 2.90 2.0-3.7 cm Updated in Other Vendor System with Status of Final Bonifacio Mckinney MD electronically signed on 01/16/2021 2:29:40 PM with status of Final
[2021-01-15 10:36] LABS: Anion Gap 14 (12-20); Blood Urea Nitrogen 35 mg/dL (9-16); Calcium 10.5 mg/dL (8.4-10.2); Carbon Dioxide 26 mmol/L (22-29); Chloride 105 mmol/L (96-108); Estimated Glomerular Filt Rate 46; Glucose Fasting 106 mg/dL (60-99); Potassium 4.9 mmol/L (3.3-5.1); Sodium 140 mmol/L (135-145)
== END ==
LOC: HO.CARD 09:25
PROVIDERS: Absent Provider Internal Medicine; PCP Nurse Practitioner; Referring Provider Nurse Practitioner; Visit Provider Internal Medicine Pulmonary Disease
DX: R06.00 Dyspnea, unspecified (principal); N17.9 Acute kidney failure, unspecified
CPT/HCPCS: 36415; 80048; 93306

== ENCOUNTER → 2021-01-18 14:13 | Outpatient (BNVA) | payer OTHER, SELFPAY | PROVIDERS: PCP Nurse Practitioner; Referring Provider Nurse Practitioner; Visit Provider Internal Medicine Gastroenterology | DX: K75.81 Nonalcoholic steatohepatitis (NASH) (principal); K21.9 Gastro-esophageal reflux disease without esophagitis; K58.9 Irritable bowel syndrome, unspecified; D64.9 Anemia, unspecified; R13.14 Dysphagia, pharyngoesophageal phase; Z86.010 Personal history of colon polyps | CPT/HCPCS: 99212 ==

== ENCOUNTER → 2021-01-19 11:16 | Outpatient (BNVA) | payer OTHER, SELFPAY | PROVIDERS: PCP Nurse Practitioner; Visit Provider Internal Medicine Pulmonary Disease | DX: J44.9 Chronic obstructive pulmonary disease, unspecified (principal); R06.00 Dyspnea, unspecified | CPT/HCPCS: 99212 ==

== ENCOUNTER → 2021-03-01 11:05 | Outpatient (BNVA) | payer OTHER, SELFPAY | PROVIDERS: PCP Nurse Practitioner; Visit Provider Internal Medicine Pulmonary Disease | DX: J44.9 Chronic obstructive pulmonary disease, unspecified (principal); R06.00 Dyspnea, unspecified; Z99.81 Dependence on supplemental oxygen | CPT/HCPCS: 99212 ==

== ENCOUNTER → 2021-03-02 10:50 | Outpatient (BNVA) | payer OTHER, SELFPAY | PROVIDERS: PCP Nurse Practitioner; Visit Provider Urology | DX: R33.9 Retention of urine, unspecified (principal); R39.12 Poor urinary stream; R39.11 Hesitancy of micturition; E11.9 Type 2 diabetes mellitus without complications; M79.7 Fibromyalgia; Z87.891 Personal history of nicotine dependence; Z90.49 Acquired absence of other specified parts of digestive tract; Z82.49 Family history of ischemic heart disease and other diseases of the circulatory system; Z83.3 Family history of diabetes mellitus; Z88.6 Allergy status to analgesic agent | CPT/HCPCS: 51798; 99212 ==

== ENCOUNTER → 2021-03-08 10:20 | Outpatient (BNVA) | payer OTHER, SELFPAY | PROVIDERS: PCP Nurse Practitioner; Referring Provider Internal Medicine Pulmonary Disease; Visit Provider Internal Medicine | DX: I35.8 Other nonrheumatic aortic valve disorders (principal); I51.89 Other ill-defined heart diseases; R06.02 Shortness of breath; Z99.81 Dependence on supplemental oxygen | CPT/HCPCS: 93005; 99202 ==

== ENCOUNTER 2021-03-30 09:32 | Day surgery (SDC) | payer OTHER, SELFPAY ==
[2021-03-25 09:20] VITALS: BMI 32.2
[2021-03-30] MEDS: Lactated Ringers 1,000 ML 50 ML IVCONT (10:00)
[2021-03-30 10:20] LABS: Glucose, Whole Blood 115 mg/dL (60-115)
[2021-03-30 10:22] VITALS: BP 95/69; PULSE 59; RESP 18; TEMP 36.1; O2SAT 100
--- NOTE | 2021-03-30 10:28 | HO.ANESPROP2 ---
[facility] Active Problems Active Problems: All Active Problems (Updated 03/08/21 @ 11:15 by Jaxson Wells MD) Weak urinary stream (Acute) Urinary hesitancy (Acute) Pneumonia (Acute) COPD (chronic obstructive pulmonary disease) (Acute) Dyspnea on exertion (Acute) Community acquired pneumonia (Acute) COPD exacerbation (Acute) Sepsis (Acute) Acute respiratory failure with hypoxia (Acute) ELIZABET (acute kidney injury) (Acute) Anemia (Acute) Supplemental oxygen dependent (Acute) Urinary retention with incomplete bladder emptying (Acute) Shortness of breath (Acute) Aortic valve sclerosis (Acute) Diastolic dysfunction (Acute) Steatohepatitis (Acute) Dysphagia, pharyngoesophageal phase (Acute) GERD without esophagitis (Acute) History of colon polyps (Acute) IBS (irritable bowel syndrome) (Acute) Fibromyalgia (Acute) Past Medical History Medical History Acute exacerbation of chronic obstructive airways disease Depression Diabetes mellitus Dysphagia, pharyngoesophageal phase Fibromyalgia GERD without esophagitis History of colon polyps Hx of hereditary disease IBS (irritable bowel syndrome) Steatohepatitis Urinary retention with incomplete bladder emptying Family History Family History Father History of heart attack Hx of type 1 diabetes mellitus Mother Alive and well Surgical History Surgical History History of colonoscopy Hx of cholecystectomy Hx of endoscopy Hx of tubal ligation S/p total knee replacement, bilateral History of Problems with Anesthesia: No Social History Social History Household Members: Family Housing: Apartment Do you presently have visiting nurse or other home services: Yes Alcohol intake: never Patient Tobacco Use Status: Former Tobacco user Quit Date: 12/02/2020 Tobacco use type: Cigarette Cigarette Packs Per Day: 0.5 Cigarettes Per Day: 10.0 Years Smoked: 20 Use of substances other than those prescribed or required for medical reasons: No Are you DNR?: No Advance Directives: No Advance Directives Information Provided: Yes Advance Directives on File: No service: No Current occupational status: unemployed Meds Allergies Allergy/AdvReac Type Severity Reaction Status Date / Time oxycodone [Percocet] Allergy Intermediate Itching Verified 03/08/21 10:34 Vicodin Allergy Intermediate itching Uncoded 03/08/21 10:34 Home Medications Medication Instructions Recorded Confirmed Last Taken Type fenofibrate micronized 134 mg 134 mg PO DAILY 01/21/20 03/25/21 01/06/21 History capsule blood sugar diagnostic #10 ea 06/25/20 03/08/21 Unknown History cholecalciferol (vitamin D3) 50 50 mcg PO DAILY 06/25/20 03/25/21 01/06/21 History mcg (2,000 unit) capsule diclofenac sodium 1 % topical gel 2 g TOPICAL QID 06/25/20 03/25/21 01/06/21 History hydroxyzine HCl 50 mg tablet 50 mg PO BID PRN 06/25/20 03/25/21 01/06/21 History mirtazapine 45 mg tablet 45 mg PO BEDTIME 06/25/20 03/25/21 01/05/21 History tizanidine 2 mg tablet 6 mg PO Q12H PRN 06/25/20 03/25/21 01/06/21 History quetiapine 50 mg tablet 50 mg PO BEDTIME 08/27/20 03/25/21 01/05/21 History atorvastatin 80 mg tablet 1 tab PO BEDTIME 10/17/20 03/25/21 01/05/21 History duloxetine 60 mg capsule,delayed 1 cap PO BID 10/17/20 03/25/21 01/06/21 History release empagliflozin 10 mg tablet 1 tab PO DAILY 01/06/21 03/25/21 01/06/21 History (Jardiance) lisinopril 10 1 tab PO DAILY 01/06/21 03/25/21 01/06/21 History mg-hydrochlorothiazide 12.5 mg tablet metformin 500 mg tablet 2 tab PO BID 01/06/21 03/25/21 01/06/21 History acetaminophen 500 mg tablet 1,000 mg PO Q8H PRN 03/02/21 03/25/21 Unknown History alcohol swabs (Alcohol Prep Pads) 0 pad TOPICAL 03/02/21 03/08/21 Unknown History amlodipine 2.5 mg tablet 2.5 mg PO DAILY 03/02/21 03/25/21 Unknown History blood-glucose meter (FreeStyle #1 ea 03/02/21 03/08/21 Unknown History [place] Lite) dulaglutide 0.75 mg/0.5 mL mg SUBCUT 03/02/21 03/08/21 Unknown History subcutaneous pen injector (Trulicity) inhalational spacing device #1 ea 03/02/21 03/08/21 Unknown History (Compact Space Chamber) lancets 33 gauge (TRUEplus Lancets) #100 ea 03/02/21 03/08/21 Unknown History methylcellulose (laxative) 500 mg 0 mg PO 03/02/21 03/08/21 Unknown History tablet (Fiber Laxative (methylcellulose)) omeprazole 20 mg capsule,delayed 20 mg PO BID 03/02/21 03/25/21 Unknown History release sennosides 8.6 mg tablet (senna) 17.2 mg PO DAILY 03/02/21 03/25/21 Unknown History vitamin E 100 unit capsule 1 cap PO DAILY 03/02/21 03/25/21 Unknown History Exam Exam Date and Time: March 30, 2021 1028 Height,Weight and Vital Signs: Height 5 ft 3 in Weight 82.554 kg Pertinent Lab Results Pertinent Lab Results: Laboratory Tests 03/30/21 10:16 POC Glucose 115 Airway Mallampati Class: II TM Dist: >3cm Neck ROM: Full Loose/Missing/Broken Teeth: Yes, Upper and Lower Heart: RRR Lungs: CTA Assessment and Plan Assessment Anesthesia Assessment: Anesthesia Plan Discussed and Chart Reviewed Final Anesthetic Review History of Problems with Anesthesia: No NPO: Yes ASA Class: III Final Preanesthetic Review: Meds/Allgs Chart Reviewed, Consent Obtained/Reviewed and Anes Risks/Benef Reviewed Patient Risk: Intermediate Procedure Risk: Intermediate Anesthetic Plan Anesthetic Plan: MAC: Disposition: Standard PACU
--- NOTE | 2021-03-30 12:02 | MHC.SHP ---
Pre-Procedural Eval Section A Date of Service: 03/30/21 Section B Chief Complaint: GERD Details of Present Illness: GERD, abd pain, bloating, diarrhea, cirrhosis Relevant Family History (Specify if Yes): No Relevant Social History: Tobacco Use (Former smoker) Present Medications: see Short Stay Collaborative assessment Medical History: Significant History (Acute exacerbation of chronic obstructive airways disease Depression Diabetes mellitus Dysphagia, pharyngoesophageal phase Fibromyalgia GERD without esophagitis History of colon polyps Hx of hereditary disease IBS (irritable bowel syndrome) Steatohepatitis Urinary retention with incomplete bladder e) History of Previous Operations: Relevant previous surgery/procedure and date(s) (History of colonoscopy Hx of cholecystectomy Hx of endoscopy Hx of total knee replacement Hx of tubal ligation) Allergies: Allergies Allergy/AdvReac Type Severity Reaction Status Date / Time oxycodone [Percocet] Allergy Intermediate Itching Verified 03/08/21 10:34 Vicodin Allergy Intermediate itching Uncoded 03/08/21 10:34 Review of Systems Sugical H&P ROS: Negative: Constitution, Cardiovascular and Respiratory and Yes, Specify: Gastrointestinal (GERD) Exam Surgical H&P Exam: Normal: Heart, Normal: Lungs and Normal: Extremities Plan Diagnosis/Plan: Unchanged I have reviewed the history and physical and performed a pertinent physical examination on my patient. No changes have occurred unless specified.
--- NOTE | 2021-03-30 12:04 | PM.OP ---
Brief Operative Note Date of Service: 03/30/21 Pre-op diagnosis: GERD, anemia, abdominal pain and diarrhea Post-op diagnosis: other (GERD, gastritis) Procedure: FLEXIBLE TRANSORAL UPPER GASTROINTESTINAL ENDOSCOPY WITH BIOPSIES Consent: Indications for the procedure and potential complications of bleeding, perforation, reaction to medications and missed diagnosis were discussed with the patient and informed consent was obtained. Instrument: Olympus GIF H 190 mid size upper endoscope Monitoring: Vital signs and clinical assessment, continuous EKG monitoring, Pulse oximetry, Carbon Dioxide monitoring and blood pressure monitoring were done throughout the procedure. Procedure: The patient was placed in the left lateral decubitis position and pre-procedure medications were administered and a bite block was placed. The endoscope was inserted into the mouth and advanced under direct vision to the third part of duodenum. A careful inspection was made as the upper endoscope was withdrawn including a retroflexed examination of the proximal stomach; Findings and interventions are described below. Findings: Larynx: Normal Esophagus: GE junction at 38 cms. No varices, esophagitis or Jackson's. Stomach: Mild gastric erythema with a single 1-2 mm pre-pyloric erosion. Biopsies were obtained. Grade 2 flap valve on retroflexed examination of the cardia. Duodenum: Normal bulb and descending duodenum. Biopsies were obtained from 3rd part of the duodenum to check for celiac sprue Intervention: Biopsies as noted above Intervention: Biopsies as noted above Impression and Post Procedure Diagnosis: Endoscopy Findings: STOMACH: Antral gastritis with a single 1-2 mm pre-pyloric erosion DUODENUM: Normal -biopsied to check for celiac sprue Plan: Await pathology results Patient has an appointment on 05/10/20 in the GI Clinic with Holland Bautista M.D. Above findings were reviewed with the patient and GERD handout was given in the discharge area Surgeon: Holland Bautista MD Anesthesia: MAC (Dr Childers) Was an Dental Front Office Assistant used for this Procedure?: Yes Dental Front Office Assistant: Jaspreet Lamar Estimated blood loss (mL): 0 Pathology: other (A- SMALL BOWEL BXS R/O CELIAC B- GASTRIC BXS R/O H. PYLORI) Condition: stable Disposition: PACU
[2021-03-30 12:25] VITALS: BP 108/59; PULSE 65; RESP 18; TEMP 36.4; O2SAT 100
[2021-03-30 12:48] VITALS: BP 110/68; PULSE 67; RESP 16; TEMP 36.4; O2SAT 100
== END 2021-03-30 13:15 | disposition home or self-care (01) ==
PROVIDERS: PCP Nurse Practitioner; Visit Provider Internal Medicine Gastroenterology
PROC: 0DJ08ZZ Inspection of Upper Intestinal Tract, Via Natural or Artificial Opening Endoscopic (ICD-10-PCS; CPT 43235; principal; 2021-03-30 10:50)
DX: K21.9 Gastro-esophageal reflux disease without esophagitis (principal); D64.9 Anemia, unspecified; K29.50 Unspecified chronic gastritis without bleeding; K74.60 Unspecified cirrhosis of liver; K58.2 Mixed irritable bowel syndrome; K75.81 Nonalcoholic steatohepatitis (NASH); K57.30 Diverticulosis of large intestine without perforation or abscess without bleeding; R13.14 Dysphagia, pharyngoesophageal phase; J44.9 Chronic obstructive pulmonary disease, unspecified; M79.7 Fibromyalgia; F31.9 Bipolar disorder, unspecified; E11.9 Type 2 diabetes mellitus without complications; Z79.84 Long term (current) use of oral hypoglycemic drugs; Z79.52 Long term (current) use of systemic steroids; Z79.899 Other long term (current) drug therapy; Z88.8 Allergy status to other drugs, medicaments and biological substances; Z90.49 Acquired absence of other specified parts of digestive tract
CPT/HCPCS: 43239; 82947; 88305; 88342

== ENCOUNTER → 2021-04-08 10:20 | Outpatient (BNVA) | payer OTHER, SELFPAY | PROVIDERS: PCP Nurse Practitioner; Visit Provider Internal Medicine Pulmonary Disease | DX: J44.9 Chronic obstructive pulmonary disease, unspecified (principal); Z99.81 Dependence on supplemental oxygen | CPT/HCPCS: 94618; 99212 ==

== ENCOUNTER → 2021-05-04 09:47 | Outpatient (BNVA) | payer OTHER, SELFPAY | PROVIDERS: PCP Nurse Practitioner; Visit Provider Internal Medicine Pulmonary Disease | DX: J44.9 Chronic obstructive pulmonary disease, unspecified (principal); Z99.81 Dependence on supplemental oxygen | CPT/HCPCS: 99212 ==

== ENCOUNTER → 2021-06-21 10:07 | Outpatient (BNVA) | payer OTHER, SELFPAY | PROVIDERS: PCP Nurse Practitioner; Referring Provider Nurse Practitioner; Visit Provider Internal Medicine | DX: R06.02 Shortness of breath (principal); I35.8 Other nonrheumatic aortic valve disorders; I51.89 Other ill-defined heart diseases; Z99.81 Dependence on supplemental oxygen | CPT/HCPCS: 99212 ==

== ENCOUNTER → 2021-07-06 10:39 | Outpatient (BNVA) | payer OTHER, SELFPAY | PROVIDERS: PCP Nurse Practitioner; Visit Provider Internal Medicine Pulmonary Disease | DX: M79.7 Fibromyalgia (principal); M54.16 Radiculopathy, lumbar region; M47.816 Spondylosis without myelopathy or radiculopathy, lumbar region; M53.3 Sacrococcygeal disorders, not elsewhere classified; Z99.81 Dependence on supplemental oxygen | CPT/HCPCS: 99202; 99212 ==

== ENCOUNTER → 2021-07-08 12:03 | Outpatient (BNVA) | payer OTHER, SELFPAY | PROVIDERS: PCP Nurse Practitioner; Visit Provider Internal Medicine Gastroenterology | DX: K21.9 Gastro-esophageal reflux disease without esophagitis (principal); K58.9 Irritable bowel syndrome, unspecified; K75.81 Nonalcoholic steatohepatitis (NASH); R13.14 Dysphagia, pharyngoesophageal phase; Z86.010 Personal history of colon polyps | CPT/HCPCS: Q3014 ==

== ENCOUNTER 2021-07-13 12:14 | Outpatient (REF) | payer OTHER, SELFPAY ==
--- NOTE | ~2021-07-13 | XR_ITS ---
EXAMINATION: XR LUMBOSACRAL SPINE WITH OBLIQUES CLINICAL INFORMATION: Radiculopathy with bending views. COMPARISON: None TECHNIQUE: AP, both oblique, and lateral views of the lumbar spine. Lateral view of the lumbosacral junction. FINDINGS: There is normal lumbar lordosis. Grade 1 anterolisthesis L4 over L5 and L5 over S1 is noted. On flexion and extension views there is no significant reduction or worsening of the listhesis at the L4-L5 disc level. There is loss of L4-L5 and L5-S1 disc heights. Rest of the disc heights, all vertebral heights and upper lumbar vertebral alignment is normal. On oblique views no pars defect seen. No lytic or sclerotic process seen. The paravertebral soft tissues are normal. XR/XR lumbar spine 6V w bending IMPRESSION: Grade 1 anterolisthesis L4 over L5 and L5 over S1 with no significant change in the flexion and extension views. Mild degenerative disc changes L4-L5 and L5-S1 disc levels.
== END 2021-07-13 12:15 | disposition home or self-care (01) ==
LOC: HO.XRAY 12:14
PROVIDERS: PCP Nurse Practitioner; Visit Provider Nurse Practitioner Family
DX: M54.16 Radiculopathy, lumbar region (principal); M47.816 Spondylosis without myelopathy or radiculopathy, lumbar region
CPT/HCPCS: 72114

== ENCOUNTER → 2021-07-23 10:56 | Outpatient (BNVA) | payer OTHER, SELFPAY | PROVIDERS: PCP Internal Medicine; Visit Provider Nurse Practitioner Family | DX: M53.3 Sacrococcygeal disorders, not elsewhere classified (principal); M47.26 Other spondylosis with radiculopathy, lumbar region; M79.7 Fibromyalgia; R26.9 Unspecified abnormalities of gait and mobility | CPT/HCPCS: 99212 ==

== ENCOUNTER 2021-07-28 13:00 | Outpatient (RCR) | payer OTHER, SELFPAY | END 2021-09-01 14:52 | disposition home or self-care (01) | LOC: HO.PT 13:00 | PROVIDERS: PCP Nurse Practitioner; Visit Provider Nurse Practitioner | DX: M54.41 Lumbago with sciatica, right side (principal) | CPT/HCPCS: 97110; 97112; 97140; 97161 ==

== ENCOUNTER 2021-08-10 15:23 | Outpatient (REF) | payer OTHER, SELFPAY ==
--- NOTE | ~2021-08-10 | MR_ITS ---
EXAMINATION: MR LUMBAR SPINE WITHOUT CONTRAST CLINICAL INFORMATION: Low back pain radiating to both legs. COMPARISON: X-ray dated 07/13/2021. TECHNIQUE: MRI of the lumbar spine was obtained using routine sequences without contrast. FINDINGS: VERTEBRAL BODIES AND PARASPINAL STRUCTURES: The marrow signal is within normal limits. There are no compression fractures. Mild anterolisthesis noted at the L4-L5 level. The paraspinal soft tissues are unremarkable. There is mild prominence of the basivertebral venous plexus which is nonspecific, more so at the L4 level. CONUS MEDULLARIS AND CAUDA EQUINA: Normal, terminating at the level of L1-L2. No lower cord signal abnormality seen. The cauda equina nerve roots are normal. SPINAL LEVELS: L1-L2: Mild disc bulge without central canal stenosis or foraminal narrowing. L2-L3: Very mild disc bulge with mild right foraminal encroachment and abutment of the exiting right L2 nerve root. L3-L4: Anterior endplate spurring and mild generalized disc bulge without central canal stenosis. Bulging disc mildly encroaches upon the left neural foramen. Right foraminal disc protrusion impinges upon the right L3 nerve root. L4-L5: Anterior subluxation and exuberant facet arthropathy with thickening of the ligamentum flavum and a 6 mm synovial cyst protruding off the anterior left facet joint. Findings result in moderate central canal stenosis at the level of the disc space and severe narrowing of the central canal at the level of the superior endplate of L5 with compression of the thecal sac and the left L5 nerve root in the lateral recess by this synovial cyst. [id number] foraminal narrowing, worse on the left side. L5-S1: Severe facet arthrosis without central canal stenosis or focal disc protrusion. Mild anterolisthesis. Facet spurring distorts the left S1 nerve root in the left lateral recess. Mild right foraminal narrowing. MR/MR lumbar spine wo con IMPRESSION: 1. Right foraminal disc protrusion at the L3-L4 level impinging upon the right L3 nerve root. 2 .Mild anterolisthesis at the L4-L5 level with exuberant facet arthropathy and thickening of the ligamentum flavum resulting in [id number] central canal stenosis, more significant at the level of the L5 superior endplate. Findings result in severe thecal sac distortion. Additional 6 mm synovial cyst protruding off the left facet joint into the lateral recess compressing the left L5 nerve root. 3. Severe facet degeneration at the L5-S1 level with a mild anterior subluxation. Facet spurring distorts the left S1 nerve root in the left lateral recess.
== END 2021-08-10 15:24 | disposition home or self-care (01) ==
LOC: HO.MRI 15:23
PROVIDERS: Visit Provider Nurse Practitioner Family
DX: M54.16 Radiculopathy, lumbar region (principal); M48.16 Ankylosing hyperostosis [Forestier], lumbar region; R29.6 Repeated falls
CPT/HCPCS: 72148

== ENCOUNTER → 2021-08-13 10:31 | Outpatient (BNVA) | payer OTHER, SELFPAY | PROVIDERS: PCP Internal Medicine; Visit Provider Nurse Practitioner Family | DX: M48.061 Spinal stenosis, lumbar region without neurogenic claudication (principal); M54.16 Radiculopathy, lumbar region; M47.816 Spondylosis without myelopathy or radiculopathy, lumbar region; R29.6 Repeated falls | CPT/HCPCS: Q3014 ==

== ENCOUNTER 2021-08-20 09:34 | Outpatient (REF) | payer OTHER, SELFPAY ==
--- NOTE | ~2021-08-20 | MM_ITS ---
EXAMINATION: MM SCREENING DIGITAL BREAST TOMOSYNTHESIS, BILATERAL CLINICAL INFORMATION: Screening. Asymptomatic. The lifetime risk of breast cancer based on the Tyrer-Cuzick Model is 4%. COMPARISON: Mammography: 04/20/2020; outside mammography 11/22/2018, 11/13/2018 ([facility]). TECHNIQUE: Digital breast tomosynthesis is performed in both the craniocaudal and mediolateral oblique views along with computer-aided detection (CAD). Synthesized 2D images are generated from the tomosynthesis. FINDINGS: There are scattered areas of fibroglandular density (ACR BI-RADS breast composition Category b). There are no significant masses, abnormal calcifications, or other abnormalities. There is no developing density or architectural abnormality. The axilla and skin contours are unremarkable. MM/MM tomosynthesis screening BI IMPRESSION: No mammographic evidence of malignancy. ASSESSMENT: BI-RADS 1: Negative RECOMMENDATION: Routine annual mammography screening. This patient's information was entered into a reminder system with a target due date for their next mammogram.
[2021-08-20 10:56] LABS: MANUAL DIFF FLAG NO
[2021-08-20 11:14] LABS: Basophils Absolute Auto 0.1 X10*3/uL (0.0-0.2); Basophils Percent Auto 0.4 % (0-2); Eosinophils Absolute Auto 0.1 X10*3/uL (0.0-0.4); Eosinophils Percent Auto 0.7 % (0-4); Hematocrit 40.2 % (37.0-47.0); Hemoglobin 11.8 g/dl (12.0-16.0); Imm Gran Abs Auto 0.24 X10*3/uL (0.00-0.03); Imm Gran Pct Auto 2.1 % (0.0-0.4); Lymphocytes Absolute Auto 3.5 X10*3/uL (1.2-4.9); Lymphocytes Percent Auto 30.6 % (20-40); Mean Corpuscular HGB Conc 29.4 g/dl (31.0-35.0); Mean Corpuscular Hemoglobin 24.8 pg (27.0-33.0); Mean Corpuscular Volume 84.5 fL (80.0-98.0); Monocytes Absolute Auto 0.9 X10*3/uL (0.1-1.2); Monocytes Percent Auto 7.8 % (2-11); NRBC Pct Auto 0.3 /100WBC (0.0-0.2); Neutrophils Absolute Auto 6.6 x10*3/uL (2.0-8.3); Neutrophils Percent Auto 58.4 % (45-73); Platelet Count 376 X10*3/uL (160-400); Red Blood Count 4.76 X10*6/uL (4.20-5.50); Red Cell Distribution Width 17.6 % (11.0-16.0); White Blood Count 11.4 X10*3/uL (4.8-10.8)
[2021-08-20 11:39] LABS: Appearance Urine CLEAR; Color Urine YELLOW; Glucose Urine UA 500 MG/DL (NEG); Leukocyte Esterase Urine NEG (NEG); Nitrite Urine NEG (NEG); Specific Gravity - Urine 1.025 (1.005-1.025); Urine Blood NEG (NEG); Urine Ketones 5 MG/DL (NEG); Urine Protein TRACE MG/DL (NEG-TRACE)
[2021-08-20 11:41] LABS: Albumin Level 4.8 g/dL (3.5-5.0); Anion Gap 14 (12-20); Blood Urea Nitrogen 28 mg/dL (9-16); Calcium 10.5 mg/dL (8.4-10.2); Carbon Dioxide 25 mmol/L (22-29); Chloride 108 mmol/L (96-108); Estimated Glomerular Filt Rate 59; Magnesium 1.9 mg/dL (1.6-2.6); Phosphorus 3.1 mg/dL (2.7-4.5); Potassium 4.2 mmol/L (3.3-5.1); Sodium 143 mmol/L (135-145)
[2021-08-20 12:03] LABS: Vitamin D 25-OH Total 43.6 ng/mL (>30)
[2021-08-20 12:11] LABS: Microalbum/Creatinine Ratio Ur 41.6 ug/mg cr; Protein/Creatinine Ratio, Ur 0.18 (<0.2); Total Protein Urine Random 25 mg/dL (<12)
[2021-08-24 15:42] LABS: Calcium (PTHI) 10.5 mg/dL (8.6-10.4); PTHI 26 pg/mL (16-77)
== END 2021-08-20 09:35 | disposition home or self-care (01) ==
LOC: HO.MAMMO 09:34
PROVIDERS: Absent Provider Internal Medicine Nephrology; PCP Nurse Practitioner; Visit Provider Nurse Practitioner
DX: Z12.31 Encounter for screening mammogram for malignant neoplasm of breast (principal); E11.22 Type 2 diabetes mellitus with diabetic chronic kidney disease; N18.31 Chronic kidney disease, stage 3a
CPT/HCPCS: 36415; 77063; 77067; 80051; 81003; 82040; 82043; 82306; 82310; 82565; 83735; 83970; 84100; 84156; 84520; 85025; 87086

== ENCOUNTER → 2021-09-02 10:16 | Outpatient (BNVA) | payer OTHER, SELFPAY | PROVIDERS: PCP Nurse Practitioner; Visit Provider Nurse Practitioner Family | DX: M79.7 Fibromyalgia (principal); M48.061 Spinal stenosis, lumbar region without neurogenic claudication; M54.16 Radiculopathy, lumbar region; Z79.899 Other long term (current) drug therapy | CPT/HCPCS: 99212 ==

== ENCOUNTER → 2021-09-06 15:05 | Outpatient (BNVA) | payer OTHER, SELFPAY | PROVIDERS: PCP Nurse Practitioner; Visit Provider Internal Medicine Pulmonary Disease | DX: Z01.811 Encounter for preprocedural respiratory examination (principal); J44.9 Chronic obstructive pulmonary disease, unspecified; Z99.81 Dependence on supplemental oxygen | CPT/HCPCS: 99212 ==

== ENCOUNTER 2021-11-23 19:27 | Emergency (ER) | payer OTHER, SELFPAY ==
[2021-11-23] VITALS (9 sets, daily range): BP systolic 60–103; BP diastolic 34–79; PULSE 95–109; RESP 16–20; TEMP 36.8; O2SAT 96–99; BMI 39.0; BMI 34.9
--- NOTE | ~2021-11-23 | XR_ITS ---
EXAMINATION: XR CHEST CLINICAL INFORMATION: Triple-lumen placement COMPARISON: 01/06/2021 TECHNIQUE: Frontal view of the chest was obtained. FINDINGS: Left IJ central line tip lies in the region of the cavoatrial junction. The lungs appear slightly hypoinflated. No focal consolidation is seen. No evidence of pneumothorax, pleural effusion, or pulmonary edema. The cardiomediastinal contour is unremarkable. No acute osseous findings are seen. XR/XR chest 1V IMPRESSION: Left IJ central line tip in the region of the cavoatrial junction.
--- NOTE | ~2021-11-23 | CT_ITS ---
EXAMINATION: CT ABDOMEN AND PELVIS WITHOUT CONTRAST CLINICAL INFORMATION: Abdominal pain and hypotension. COMPARISON: CT abdomen pelvis 08/06/2020 TECHNIQUE: Multidetector volumetric imaging was performed from the superior aspect of the liver through the pubic symphysis. Sagittal and coronal reformatted images were obtained on the technologist's workstation. This CT examination was performed using dose optimization techniques as appropriate, variously including the following: *Automated exposure control *Adjustment of mA and/or kV according to patient size (this includes techniques or standardized protocols for targeted exams where dose is matched to indication/reason for exam; i.e. extremities or head) *Use of iterative reconstruction technique DLP: 687 mGy-cm FINDINGS: LUNG BASES: Mild dependent bibasilar atelectasis. Trace pericardial fluid. No significant pericardial effusion. LIVER, GALLBLADDER, AND BILIARY TREE: Portal venous gas in the right and left liver lobes. Coarse calcification in the anterior segment right liver lobe. Hepatomegaly with the liver measuring 19.9 cm in length. Enlargement of the caudate lobe. Slightly nodular liver surface contour. No liver lesion. No biliary ductal dilation. Status post cholecystectomy. Surgical clips in the gallbladder fossa. PANCREAS: Unremarkable. SPLEEN: Unremarkable. ADRENAL GLANDS: Unremarkable. KIDNEYS AND URETERS: The kidneys are normal in size, shape, and attenuation. No hydronephrosis, hydroureter, or calculi seen. No perinephric stranding. BLADDER: Slightly thick-walled appearance favored due to limited distention. No focal bladder wall thickening. GASTROINTESTINAL TRACT: Pneumatosis of the rectosigmoid. No significant mural thickening or surrounding inflammatory change. There is a small amount of adjacent pericolonic venous gas. Scattered colonic diverticuli. No evidence of acute diverticulitis. Several mildly dilated loops of small bowel with small air-fluid levels in the abdomen gradually decompressing in the distal ileum. No discrete transition point. Colon is nondilated. Appendix is unremarkable. No intra-abdominal free air. No ascites. ABDOMINAL WALL: Fat-containing umbilical and supraumbilical hernias. LYMPH NODES: Borderline dilated portacaval lymph node measuring 0.9 cm, nonspecific. No other lymphadenopathy. VASCULAR: Normal caliber abdominal aorta. Mild vascular calcifications. PELVIC VISCERA: Gynecologic structures grossly unremarkable limited assessment. OSSEOUS STRUCTURES: No acute fracture or suspicious osseous lesion. L4-L5 interspinous fixation device. Mild multilevel degenerative disc disease. CT/CT abdomen pelvis wo con IMPRESSION: 1. Findings compatible with ischemia of the rectosigmoid colon evidence by pneumatosis, adjacent pericolonic venous gas, and portal venous gas. No intra-abdominal free air is suggest perforation. 2. Multiple mildly dilated small bowel loops throughout the abdomen without discrete transition consistent with ileus. 3. Hepatomegaly and findings suggesting underlying hepatic fibrosis/cirrhosis. This critical result was discussed with Dr. Parra at 9:31 PM on 11/23/2021 and it was ascertained that the content and urgency of the report was understood at the time of direct communication.
--- NOTE | 2021-11-23 19:47 | ECG_ITS ---
Test Reason : HYPOTENSION Blood Pressure : / mmHG Vent. Rate : 095 BPM Atrial Rate : 095 BPM P-R Int : 150 ms QRS Dur : 082 ms QT Int : 422 ms P-R-T Axes : 057 030 060 degrees QTc Int : 530 ms Normal sinus rhythm Prolonged QT Abnormal ECG When compared with ECG of 07-OCT-2020 14:41, Nonspecific T wave abnormality no longer evident in Inferior leads Heart rate has decreased QT has lengthened Referred By: Matthew Saxena Electronically Signed By:DARIA SMILEY
[2021-11-23] MEDS: 0.9 % Sodium Chloride 1,000 ML 999 ML IV ×4 (19:51→22:13)
--- NOTE | 2021-11-23 19:52 | ED.ABDPAIN ---
HPI - Abdominal Pain General Chief Complaint: Altered Mental Status <Matthew Saxena MD - Last Filed: 11/24/21 00:26> Stated Complaint: AMS/ Hypotensive <Matthew Saxena MD - Last Filed: 11/24/21 00:26> Time Seen by Provider: 11/23/21 19:39 <Matthew Saxena MD - Last Filed: 11/24/21 00:26> Source: patient <Matthew Saxena MD - Last Filed: 11/24/21 00:26> Mode of arrival: ambulatory <Matthew Saxena MD - Last Filed: 11/24/21 00:26> Limitations: no limitations <Matthew Saxena MD - Last Filed: 11/24/21 00:26> History of Present Illness HPI narrative: Patient is 61 years old with history of COPD, diabetes, GERD, depression, IBS, been having multiple episodes of vomiting with diarrhea and abdominal distention and pain since 04:00 . noticed to be weak and lethargic with systolic blood pressure in 60s afebrile heart rate 97 beats per minute. Patient says as she did have diffuse abdominal pain for last 1 week not eating and everything got worse since last night. Stool is watery,no blood in the stool no recent use of antibiotics no other family member sick patient was feeling so weak almost fell 3 -4 times was also confused per daughter <Matthwe Saxena MD - Last Filed: 11/24/21 00:26> Related Data Home Medications: Home Medications Medication Instructions Recorded Confirmed fenofibrate micronized 134 mg 134 mg PO DAILY 01/21/20 09/02/21 capsule blood sugar diagnostic #10 ea 06/25/20 09/02/21 cholecalciferol (vitamin D3) 50 50 mcg PO DAILY 06/25/20 09/02/21 mcg (2,000 unit) capsule diclofenac sodium 1 % topical gel 2 g topical QID 06/25/20 09/02/21 hydroxyzine HCl 50 mg tablet 50 mg PO BID PRN anxiety 06/25/20 09/02/21 mirtazapine 45 mg tablet 45 mg PO BEDTIME 06/25/20 09/02/21 atorvastatin 80 mg tablet 1 tab PO BEDTIME 10/17/20 09/02/21 duloxetine 60 mg capsule,delayed 1 cap PO BID 10/17/20 09/02/21 release empagliflozin 10 mg tablet 1 tab PO DAILY diabetes mellitus 01/06/21 09/02/21 (Jardiance) metformin 500 mg tablet 2 tab PO BID 01/06/21 09/02/21 alcohol swabs (Alcohol Prep Pads) 0 pad topical 03/02/21 09/02/21 amlodipine 2.5 mg tablet 2.5 mg PO DAILY 03/02/21 09/02/21 blood-glucose meter (FreeStyle #1 ea 03/02/21 09/02/21 [place] Lite kit) inhalational spacing device #1 ea 03/02/21 09/02/21 (Compact Space Chamber) lancets 33 gauge (TRUEplus Lancets) #100 ea 03/02/21 09/02/21 vitamin E 100 unit capsule 1 cap PO DAILY 03/02/21 09/02/21 dulaglutide 1.5 mg/0.5 mL mg subcut QWEEK diabetes mellitus 08/16/21 09/02/21 subcutaneous pen injector (Trulicity) lisinopril 10 mg tablet 10 mg PO DAILY 08/16/21 09/02/21 quetiapine 100 mg tablet 0 mg PO 08/16/21 09/02/21 tizanidine 2 mg tablet 6 mg PO Q12H PRN 08/16/21 09/02/21 prednisone 20 mg tablet 20 mg PO DAILY PRN pain 09/02/21 09/02/21 Previous Rx's Medication Instructions Recorded albuterol sulfate 90 mcg/actuation 2 puff inhalation Q4-6H PRN 10/07/20 aerosol inhaler shortness of breath or wheezing #8.5 grams fluticasone fur. 200 mcg-umeclid 1 inh inhalation DAILY 30 days #1 01/19/21 62.5 mcg-vilant 25 mcg ea inhalat.powder (Trelegy Ellipta) acetaminophen 500 mg tablet 1,000 mg PO Q8H PRN Pain #180 tabs 07/06/21 linaclotide 145 mcg capsule 145 mcg PO QAM 30 days #30 caps 07/08/21 (Linzess) omeprazole 20 mg capsule,delayed 20 mg PO BID #60 caps 08/27/21 release bethanechol chloride 50 mg tablet 50 mg PO BID 90 days #180 tabs 09/02/21 pregabalin 75 mg capsule 75 mg PO TID #90 caps 09/13/21 sennosides 8.6 mg tablet (senna) 17.2 mg PO BEDTIME PRN 10/12/21 constipation 30 days #60 tabs methylcellulose (laxative) 500 mg 1,000 mg PO DAILY 30 days #60 tabs 10/29/21 tablet (Fiber Laxative (methylcellulose)) dicyclomine 20 mg tablet 20 mg PO TID 30 days #90 tabs 11/04/21 ondansetron HCl 4 mg tablet 4 mg PO Q12H PRN nausea and 11/09/21 vomiting 30 days #30 tabs <Matthew Saxena MD - Last Filed: 11/24/21 00:26> Allergies/Adverse Reactions: Allergies Allergy/AdvReac Type Severity Reaction Status Date / Time oxycodone [Percocet] Allergy Intermediate Itching Verified 09/06/21 15:21 Vicodin Allergy Intermediate itching Uncoded 09/02/21 10:45 <Matthew Saxena MD - Last Filed: 11/24/21 00:26> Review of Systems Review of Systems Yes all other systems are reviewed and are negative <Matthew Saxena MD - Last Filed: 11/24/21 00:26> [facility] Past Medical History Medical History: Medical History Acute exacerbation of chronic obstructive airways disease Depression Diabetes mellitus Dysphagia, pharyngoesophageal phase Fibromyalgia Frequent falls GERD without esophagitis History of colon polyps Hx of hereditary disease IBS (irritable bowel syndrome) Steatohepatitis Urinary retention with incomplete bladder emptying <Matthew Saxena MD - Last Filed: 11/24/21 00:26> Surgical History: Surgical History History of colonoscopy History of esophagogastroduodenoscopy (EGD) Hx of cholecystectomy Hx of endoscopy Hx of tubal ligation S/p total knee replacement, bilateral <Matthew Saxena MD - Last Filed: 11/24/21 00:26> Family History Family History: Family History Father History of heart attack Hx of type 1 diabetes mellitus Mother Alive and well <Matthew Saxena MD - Last Filed: 11/24/21 00:26> Social History Social History: Social History Household Members: Spouse Housing: Apartment Do you presently have visiting nurse or other home services: Yes Alcohol intake: never Patient Tobacco Use Status: Former Tobacco user Quit Date: 12/02/2020 Tobacco use type: Cigarette Cigarette Packs Per Day: 0.5 Cigarettes Per Day: 10.0 Years Smoked: 25 yrs Advance Directives: Yes Advance Directives on File: Yes Advance Directives Date on File: 10/20/20 service: No Current occupational status: unemployed <Matthew Saxena MD - Last Filed: 11/24/21 00:26> Physical Exam ED Vital Signs: Vital Signs - 24 hr 11/23/21 19:29 11/23/21 19:39 11/23/21 19:49 Temperature 98.2 F Pulse Rate 97 Respiratory Rate 20 Blood Pressure 60/34 L 74/40 L Pulse Oximetry 96 Oxygen Delivery Method Nasal Cannula Oxygen Flow Rate 11/23/21 20:21 11/23/21 20:39 11/23/21 21:46 Temperature Pulse Rate 95 Respiratory Rate 16 Blood Pressure 81/47 L 85/47 L 93/42 L Pulse Oximetry 99 Oxygen Delivery Method Nasal Cannula Oxygen Flow Rate 2 11/23/21 22:12 11/23/21 22:49 11/23/21 22:58 Temperature Pulse Rate 106 H 109 H Respiratory Rate 20 Blood Pressure 93/54 L 94/52 L 103/79 Pulse Oximetry 98 Oxygen Delivery Method Nasal Cannula Oxygen Flow Rate 2 BMI result Body Mass Index 34.9 <Matthew Saxena MD - Last Filed: 11/24/21 00:26> Vital Signs - 24 hr 11/23/21 19:29 11/23/21 19:39 11/23/21 19:49 Temperature 98.2 F Pulse Rate 97 Respiratory Rate 20 Blood Pressure 60/34 L 74/40 L Pulse Oximetry 96 Oxygen Delivery Method Nasal Cannula Oxygen Flow Rate 11/23/21 20:21 11/23/21 20:39 11/23/21 21:46 Temperature Pulse Rate 95 Respiratory Rate 16 Blood Pressure 81/47 L 85/47 L 93/42 L Pulse Oximetry 99 Oxygen Delivery Method Nasal Cannula Oxygen Flow Rate 2 11/23/21 22:12 11/23/21 22:49 11/23/21 22:58 Temperature Pulse Rate 106 H 109 H Respiratory Rate 20 Blood Pressure 93/54 L 94/52 L 103/79 Pulse Oximetry 98 Oxygen Delivery Method Nasal Cannula Oxygen Flow Rate 2 BMI result Body Mass Index 34.9 <Jade Pugh MD - Last Filed: 11/23/21 22:52> Appearance: Alert. Oriented X3. Looks sick, cold Eyes: PERRLA, No Nystagmus ENT: Pharynx normal. Oral Mucosa moist Neck: Normal inspection. Neck supple. CVS: Normal heart rate and rhythm. Pulses normal. Respiratory: No respiratory distress. Equal air entry bilateral, no wheezing/rales/rhonchi Abdomen: Soft, diffuse tenderness with guarding no rebound tenderness Bowel sounds are sluggish, no mass palpable, no CVA tenderness Skin: Skin warm and dry. Normal skin color. Normal skin turgor. Extremities: No lower extremity edema. No calf tenderness Neuro: Oriented X 3. No motor deficit. <Matthew Saxena MD - Last Filed: 11/24/21 00:26> Procedures Central Line Placement Right IJ: Time Out Performed: Yes <Jade Pugh MD - Last Filed: 11/23/21 22:52> Patient Placed on Monitor/Pulse Ox: Yes <Jade Pugh MD - Last Filed: 11/23/21 22:52> MD Prep: mask, gown and gloves <Jade Pugh MD - Last Filed: 11/23/21 22:52> Central Line Prep: Chlorhexidine scrub <Jade Pugh MD - Last Filed: 11/23/21 22:52> Local Anesthetic: lidocaine 1% <Jade Pugh MD - Last Filed: 11/23/21 22:52> Amount of anesthesia used (mL): 5 <Jade Pugh MD - Last Filed: 11/23/21 22:52> Ultrasound Used for Placement: Yes <Jade Pugh MD - Last Filed: 11/23/21 22:52> Central Line Lumen Inserted: triple <Jade Pugh MD - Last Filed: 11/23/21 22:52> Post Procedure: sutured in place, good blood return, all ports aspirated, flushed, capped and sterile dressing applied <Jade Pugh MD - Last Filed: 11/23/21 22:52> Post Procedure X-Ray: tip of catheter in good position and no pneumothorax seen <Jade Pugh MD - Last Filed: 11/23/21 22:52> Patient Tolerated Procedure: well <Jade Pugh MD - Last Filed: 11/23/21 22:52> Complications: none <Jade Pugh MD - Last Filed: 11/23/21 22:52> Left IJ: Time Out Performed: Yes <Matthew Saxena MD - Last Filed: 11/24/21 00:26> Patient Placed on Monitor/Pulse Ox: Yes <Matthew Saxena MD - Last Filed: 11/24/21 00:26> MD Prep: mask, gown and gloves <Matthew Saxena MD - Last Filed: 11/24/21 00:26> Central Line Prep: Chlorhexidine scrub <Matthew Saxena MD - Last Filed: 11/24/21 00:26> Local Anesthetic: lidocaine 1% <Matthew Saxena MD - Last Filed: 11/24/21 00:26> Amount of anesthesia used (mL): 2 <Matthew Saxena MD - Last Filed: 11/24/21 00:26> Ultrasound Used for Placement: Yes <Matthew Saxena MD - Last Filed: 11/24/21 00:26> Central Line Lumen Inserted: triple <Matthew Saxena MD - Last Filed: 11/24/21 00:26> Post Procedure: sutured in place, good blood return, all ports aspirated, flushed, capped and sterile dressing applied <Matthew Saxena MD - Last Filed: 11/24/21 00:26> Post Procedure X-Ray: tip of catheter in good position and no pneumothorax seen <Matthew Saxena MD - Last Filed: 11/24/21 00:26> Patient Tolerated Procedure: well <Matthew Saxena MD - Last Filed: 11/24/21 00:26> Complications: none <Matthew Saxena MD - Last Filed: 11/24/21 00:26> Course Reevaluation(s) Reevaluation #1: Patient accepted at [facility] unable to get the transport life line is not flying ground transport not available from [facility] or [facility]. Patient on Levophed drip with blood pressure 103/79 pulse rate 109 on 2 L nasal oxygen saturating 98% case discussed nursing supervisor delivery department unable to get any help at this time patient staying in the ER at [facility] <Matthew Saxena MD - Last Filed: 11/24/21 00:26> Time: 23:36 <Matthew Saxena MD - Last Filed: 11/24/21 00:26> MDM - Abdominal Pain MDM Narrative Medical decision making narrative: 194 Patient hypotensive with significant abdominal tenderness metabolic acidosis lactic acidosis with multiple episodes of vomiting and diarrhea with abdominal tenderness possible bowel ischemia IV fluids ordered broad-spectrum antibiotic ordered 21;30 patient received 3 L of normal saline which is more than 30 cc/kilogram body weight IV Rocephin will give IV Zosyn. CT scan showed ischemia of rectosigmoid colon evidence by pneumatosis adjacent pericolonic venous gas and portal vein nurse gas. Case discussed Dr. Regalado surgeon plan to take patient to OR will be coming to the ER to evaluate the patient patient blood pressure 93/[address] Regalado surgery at the bedside 2230 no ICU bed available at [facility] unable to surgery here. Patient clinically sick will be transferred to [facility] accepted patient under Dr.Sanseverino FISCHER [facility] ER <Matthew Saxena MD - Last Filed: 11/24/21 00:26> Medical Records Attestation: I reviewed the patient's medical records. <Matthew Saxena MD - Last Filed: 11/24/21 00:26> Lab Data Attestation: I reviewed the patient's lab results. <Matthew Saxena MD - Last Filed: 11/24/21 00:26> Result diagrams: : 11/23/21 19:46 11/23/21 19:46 <Matthew Saxena MD - Last Filed: 11/24/21 00:26> Labs: Lab Results 11/23/21 11/23/21 11/23/21 Range/Units 19:46 19:46 19:46 WBC 13.2 H (4.8-10.8) X10*3/uL RBC 4.13 L (4.20-5.50) X10*6/uL Hgb 11.0 L (12.0-16.0) g/dl Hct 37.1 (37.0-47.0) % MCV 89.8 (80.0-98.0) fL MCH 26.6 L (27.0-33.0) pg MCHC 29.6 L (31.0-35.0) g/dl RDW 20.1 H (11.0-16.0) % Plt Count 335 (160-400) X10*3/uL MPV 10.1 (9.4-12.3) fL Immature Gran % (Auto) 1.1 H (0.0-0.4) % Neut % (Auto) 73.8 H (45-73) % Lymph % (Auto) 11.3 L (20-40) % [place] % (Auto) 13.4 H (2-11) % Eos % (Auto) 0.0 (0-4) % Baso % (Auto) 0.4 (0-2) % Lymph # (Auto) 1.5 (1.2-4.9) X10*3/uL [place] # (Auto) 1.8 H (0.1-1.2) X10*3/uL Eos # (Auto) 0.0 (0.0-0.4) X10*3/uL Baso # (Auto) 0.1 (0.0-0.2) X10*3/uL Abs Immat Gran (auto) 0.15 H (0.00-0.03) X10*3/uL Absolute Neuts (auto) 9.7 H (2.0-8.3) x10*3/uL Absolute Nucleated RBC 0.020 H (0.0-0.012) X10*3/uL Nucleated RBC % (auto) 0.2 (0.0-0.2) /100WBC Smear Tech's Comments VERIFIED PT 13.4 H (10.0-13.1) SEC INR 1.2 H (0.9-1.1) VBG pH (7.32-7.43) VBG pCO2 mmHg VBG pO2 mmHg VBG HCO3 (22-26) mmol/L VBG O2 Saturation % VBG Base Excess mmol/L Sodium 141 (135-145) mmol/L Potassium 5.2 H D (3.3-5.1) mmol/L Chloride 112 H (96-108) mmol/L Carbon Dioxide 8 L* D (22-29) mmol/L Anion Gap 26 H (12-20) BUN 54 H D (9-16) mg/dL Creatinine 3.50 H (0.5-1.4) mg/dL Estim Creat Clear Calc 17.1 Estimated GFR 13 Random Glucose 151 H (60-115) mg/dL Lactic Acid (0.5-2.0) mmol/L Calcium 7.6 L D (8.4-10.2) mg/dL Total Bilirubin 0.5 (0.0-1.0) mg/dL Direct Bilirubin 0.2 (0.0-0.5) mg/dL AST 66 H (5-31) U/L ALT 28 (0-31) U/L Alkaline Phosphatase 74 D (39-117) U/L Ammonia (13-55) umol/L Troponin I High Sens (<3.5-17.0) ng/L Total Protein 7.0 (6.5-8.0) g/dL Albumin 3.8 D (3.5-5.0) g/dL Lipase 130 H (8-78) U/L Urine Color Urine Appearance Urine pH (5.0-8.0) Ur Specific [place] (1.005-1.025) Urine Protein (Neg-Trace) mg/dL Urine Glucose (UA) (Negative) mg/dL Urine Ketones (Negative) mg/dL Urine Blood (Negative) Urine Nitrite (Negative) Ur Leukocyte Esterase (Negative) Urine RBC (0-2) /HPF Urine WBC (0-5) /HPF Ur Squamous Epith Cells (0-2) /HPF Calcium Oxalate Crystal Urine Bacteria (None Seen) Hyaline Casts (0-2) /LPF COVID-19 (SHAY) (Negative) COVID-19 Clin Com 11/23/21 11/23/21 11/23/21 Range/Units 19:46 19:46 19:46 WBC (4.8-10.8) X10*3/uL RBC (4.20-5.50) X10*6/uL Hgb (12.0-16.0) g/dl Hct (37.0-47.0) % MCV (80.0-98.0) fL MCH (27.0-33.0) pg MCHC (31.0-35.0) g/dl RDW (11.0-16.0) % Plt Count (160-400) X10*3/uL MPV (9.4-12.3) fL Immature Gran % (Auto) (0.0-0.4) % Neut % (Auto) (45-73) % Lymph % (Auto) (20-40) % [place] % (Auto) (2-11) % Eos % (Auto) (0-4) % Baso % (Auto) (0-2) % Lymph # (Auto) (1.2-4.9) X10*3/uL [place] # (Auto) (0.1-1.2) X10*3/uL Eos # (Auto) (0.0-0.4) X10*3/uL Baso # (Auto) (0.0-0.2) X10*3/uL Abs Immat Gran (auto) (0.00-0.03) X10*3/uL Absolute Neuts (auto) (2.0-8.3) x10*3/uL Absolute Nucleated RBC (0.0-0.012) X10*3/uL Nucleated RBC % (auto) (0.0-0.2) /100WBC Smear Tech's Comments PT (10.0-13.1) SEC INR (0.9-1.1) VBG pH (7.32-7.43) VBG pCO2 mmHg VBG pO2 mmHg VBG HCO3 (22-26) mmol/L VBG O2 Saturation % VBG Base Excess mmol/L Sodium (135-145) mmol/L Potassium (3.3-5.1) mmol/L Chloride (96-108) mmol/L Carbon Dioxide (22-29) mmol/L Anion Gap (12-20) BUN (9-16) mg/dL Creatinine (0.5-1.4) mg/dL Estim Creat Clear Calc Estimated GFR Random Glucose (60-115) mg/dL Lactic Acid 3.5 H* (0.5-2.0) mmol/L Calcium (8.4-10.2) mg/dL Total Bilirubin (0.0-1.0) mg/dL Direct Bilirubin (0.0-0.5) mg/dL AST (5-31) U/L ALT (0-31) U/L Alkaline Phosphatase (39-117) U/L Ammonia 63 H (13-55) umol/L Troponin I High Sens 19.8 H (<3.5-17.0) ng/L Total Protein (6.5-8.0) g/dL Albumin (3.5-5.0) g/dL Lipase (8-78) U/L Urine Color Urine Appearance Urine pH (5.0-8.0) Ur Specific [place] (1.005-1.025) Urine Protein (Neg-Trace) mg/dL Urine Glucose (UA) (Negative) mg/dL Urine Ketones (Negative) mg/dL Urine Blood (Negative) Urine Nitrite (Negative) Ur Leukocyte Esterase (Negative) Urine RBC (0-2) /HPF Urine WBC (0-5) /HPF Ur Squamous Epith Cells (0-2) /HPF Calcium Oxalate Crystal Urine Bacteria (None Seen) Hyaline Casts (0-2) /LPF COVID-19 (SHAY) (Negative) COVID-19 Clin Com 11/23/21 11/23/21 11/23/21 Range/Units 19:46 19:57 21:54 WBC (4.8-10.8) X10*3/uL RBC (4.20-5.50) X10*6/uL Hgb (12.0-16.0) g/dl Hct (37.0-47.0) % MCV (80.0-98.0) fL MCH (27.0-33.0) pg MCHC (31.0-35.0) g/dl RDW (11.0-16.0) % Plt Count (160-400) X10*3/uL MPV (9.4-12.3) fL Immature Gran % (Auto) (0.0-0.4) % Neut % (Auto) (45-73) % Lymph % (Auto) (20-40) % [place] % (Auto) (2-11) % Eos % (Auto) (0-4) % Baso % (Auto) (0-2) % Lymph # (Auto) (1.2-4.9) X10*3/uL [place] # (Auto) (0.1-1.2) X10*3/uL Eos # (Auto) (0.0-0.4) X10*3/uL Baso # (Auto) (0.0-0.2) X10*3/uL Abs Immat Gran (auto) (0.00-0.03) X10*3/uL Absolute Neuts (auto) (2.0-8.3) x10*3/uL Absolute Nucleated RBC (0.0-0.012) X10*3/uL Nucleated RBC % (auto) (0.0-0.2) /100WBC Smear Tech's Comments PT (10.0-13.1) SEC INR (0.9-1.1) VBG pH 7.15 L* (7.32-7.43) VBG pCO2 25 mmHg VBG pO2 97 mmHg VBG HCO3 9 L (22-26) mmol/L VBG O2 Saturation 94.0 % VBG Base Excess -18.0 mmol/L Sodium (135-145) mmol/L Potassium (3.3-5.1) mmol/L Chloride (96-108) mmol/L Carbon Dioxide (22-29) mmol/L Anion Gap (12-20) BUN (9-16) mg/dL Creatinine (0.5-1.4) mg/dL Estim Creat Clear Calc Estimated GFR Random Glucose (60-115) mg/dL Lactic Acid (0.5-2.0) mmol/L Calcium (8.4-10.2) mg/dL Total Bilirubin (0.0-1.0) mg/dL Direct Bilirubin (0.0-0.5) mg/dL AST (5-31) U/L ALT (0-31) U/L Alkaline Phosphatase (39-117) U/L Ammonia (13-55) umol/L Troponin I High Sens (<3.5-17.0) ng/L Total Protein (6.5-8.0) g/dL Albumin (3.5-5.0) g/dL Lipase (8-78) U/L Urine Color Dark Yellow Urine Appearance Cloudy Urine pH 5.5 (5.0-8.0) Ur Specific [place] 1.025 (1.005-1.025) Urine Protein 300 (3+) H (Neg-Trace) mg/dL Urine Glucose (UA) >=1000 H (Negative) mg/dL Urine Ketones Trace (Negative) mg/dL Urine Blood Negative (Negative) Urine Nitrite Negative (Negative) Ur Leukocyte Esterase Small (1+) H (Negative) Urine RBC 3-5 H (0-2) /HPF Urine WBC 21-50 H (0-5) /HPF Ur Squamous Epith Cells 11-20 (0-2) /HPF Calcium Oxalate Crystal Present Urine Bacteria None Seen (None Seen) Hyaline Casts >20 (0-2) /LPF COVID-19 (SHAY) Negative (Negative) COVID-19 Clin Com See Note <Matthew Saxena MD - Last Filed: 11/24/21 00:26> Lab Results 11/23/21 11/23/21 11/23/21 Range/Units 19:46 19:46 19:46 WBC 13.2 H (4.8-10.8) X10*3/uL RBC 4.13 L (4.20-5.50) X10*6/uL Hgb 11.0 L (12.0-16.0) g/dl Hct 37.1 (37.0-47.0) % MCV 89.8 (80.0-98.0) fL MCH 26.6 L (27.0-33.0) pg MCHC 29.6 L (31.0-35.0) g/dl RDW 20.1 H (11.0-16.0) % Plt Count 335 (160-400) X10*3/uL MPV 10.1 (9.4-12.3) fL Immature Gran % (Auto) 1.1 H (0.0-0.4) % Neut % (Auto) 73.8 H (45-73) % Lymph % (Auto) 11.3 L (20-40) % [place] % (Auto) 13.4 H (2-11) % Eos % (Auto) 0.0 (0-4) % Baso % (Auto) 0.4 (0-2) % Lymph # (Auto) 1.5 (1.2-4.9) X10*3/uL [place] # (Auto) 1.8 H (0.1-1.2) X10*3/uL Eos # (Auto) 0.0 (0.0-0.4) X10*3/uL Baso # (Auto) 0.1 (0.0-0.2) X10*3/uL Abs Immat Gran (auto) 0.15 H (0.00-0.03) X10*3/uL Absolute Neuts (auto) 9.7 H (2.0-8.3) x10*3/uL Absolute Nucleated RBC 0.020 H (0.0-0.012) X10*3/uL Nucleated RBC % (auto) 0.2 (0.0-0.2) /100WBC Smear Tech's Comments VERIFIED PT 13.4 H (10.0-13.1) SEC INR 1.2 H (0.9-1.1) VBG pH (7.32-7.43) VBG pCO2 mmHg VBG pO2 mmHg VBG HCO3 (22-26) mmol/L VBG O2 Saturation % VBG Base Excess mmol/L Sodium 141 (135-145) mmol/L Potassium 5.2 H D (3.3-5.1) mmol/L Chloride 112 H (96-108) mmol/L Carbon Dioxide 8 L* D (22-29) mmol/L Anion Gap 26 H (12-20) BUN 54 H D (9-16) mg/dL Creatinine 3.50 H (0.5-1.4) mg/dL Estim Creat Clear Calc 17.1 Estimated GFR 13 Random Glucose 151 H (60-115) mg/dL Lactic Acid (0.5-2.0) mmol/L Calcium 7.6 L D (8.4-10.2) mg/dL Total Bilirubin 0.5 (0.0-1.0) mg/dL Direct Bilirubin 0.2 (0.0-0.5) mg/dL AST 66 H (5-31) U/L ALT 28 (0-31) U/L Alkaline Phosphatase 74 D (39-117) U/L Ammonia (13-55) umol/L Troponin I High Sens (<3.5-17.0) ng/L Total Protein 7.0 (6.5-8.0) g/dL Albumin 3.8 D (3.5-5.0) g/dL Lipase 130 H (8-78) U/L Urine Color Urine Appearance Urine pH (5.0-8.0) Ur Specific [place] (1.005-1.025) Urine Protein (Neg-Trace) mg/dL Urine Glucose (UA) (Negative) mg/dL Urine Ketones (Negative) mg/dL Urine Blood (Negative) Urine Nitrite (Negative) Ur Leukocyte Esterase (Negative) Urine RBC (0-2) /HPF Urine WBC (0-5) /HPF Ur Squamous Epith Cells (0-2) /HPF Calcium Oxalate Crystal Urine Bacteria (None Seen) Hyaline Casts (0-2) /LPF COVID-19 (SHAY) (Negative) COVID-19 Clin Com 11/23/21 11/23/21 11/23/21 Range/Units 19:46 19:46 19:46 WBC (4.8-10.8) X10*3/uL RBC (4.20-5.50) X10*6/uL Hgb (12.0-16.0) g/dl Hct (37.0-47.0) % MCV (80.0-98.0) fL MCH (27.0-33.0) pg MCHC (31.0-35.0) g/dl RDW (11.0-16.0) % Plt Count (160-400) X10*3/uL MPV (9.4-12.3) fL Immature Gran % (Auto) (0.0-0.4) % Neut % (Auto) (45-73) % Lymph % (Auto) (20-40) % [place] % (Auto) (2-11) % Eos % (Auto) (0-4) % Baso % (Auto) (0-2) % Lymph # (Auto) (1.2-4.9) X10*3/uL [place] # (Auto) (0.1-1.2) X10*3/uL Eos # (Auto) (0.0-0.4) X10*3/uL Baso # (Auto) (0.0-0.2) X10*3/uL Abs Immat Gran (auto) (0.00-0.03) X10*3/uL Absolute Neuts (auto) (2.0-8.3) x10*3/uL Absolute Nucleated RBC (0.0-0.012) X10*3/uL Nucleated RBC % (auto) (0.0-0.2) /100WBC Smear Tech's Comments PT (10.0-13.1) SEC INR (0.9-1.1) VBG pH (7.32-7.43) VBG pCO2 mmHg VBG pO2 mmHg VBG HCO3 (22-26) mmol/L VBG O2 Saturation % VBG Base Excess mmol/L Sodium (135-145) mmol/L Potassium (3.3-5.1) mmol/L Chloride (96-108) mmol/L Carbon Dioxide (22-29) mmol/L Anion Gap (12-20) BUN (9-16) mg/dL Creatinine (0.5-1.4) mg/dL Estim Creat Clear Calc Estimated GFR Random Glucose (60-115) mg/dL Lactic Acid 3.5 H* (0.5-2.0) mmol/L Calcium (8.4-10.2) mg/dL Total Bilirubin (0.0-1.0) mg/dL Direct Bilirubin (0.0-0.5) mg/dL AST (5-31) U/L ALT (0-31) U/L Alkaline Phosphatase (39-117) U/L Ammonia 63 H (13-55) umol/L Troponin I High Sens 19.8 H (<3.5-17.0) ng/L Total Protein (6.5-8.0) g/dL Albumin (3.5-5.0) g/dL Lipase (8-78) U/L Urine Color Urine Appearance Urine pH (5.0-8.0) Ur Specific [place] (1.005-1.025) Urine Protein (Neg-Trace) mg/dL Urine Glucose (UA) (Negative) mg/dL Urine Ketones (Negative) mg/dL Urine Blood (Negative) Urine Nitrite (Negative) Ur Leukocyte Esterase (Negative) Urine RBC (0-2) /HPF Urine WBC (0-5) /HPF Ur Squamous Epith Cells (0-2) /HPF Calcium Oxalate Crystal Urine Bacteria (None Seen) Hyaline Casts (0-2) /LPF COVID-19 (SHAY) (Negative) COVID-19 Clin Com 11/23/21 11/23/21 11/23/21 Range/Units 19:46 19:57 21:54 WBC (4.8-10.8) X10*3/uL RBC (4.20-5.50) X10*6/uL Hgb (12.0-16.0) g/dl Hct (37.0-47.0) % MCV (80.0-98.0) fL MCH (27.0-33.0) pg MCHC (31.0-35.0) g/dl RDW (11.0-16.0) % Plt Count (160-400) X10*3/uL MPV (9.4-12.3) fL Immature Gran % (Auto) (0.0-0.4) % Neut % (Auto) (45-73) % Lymph % (Auto) (20-40) % [place] % (Auto) (2-11) % Eos % (Auto) (0-4) % Baso % (Auto) (0-2) % Lymph # (Auto) (1.2-4.9) X10*3/uL [place] # (Auto) (0.1-1.2) X10*3/uL Eos # (Auto) (0.0-0.4) X10*3/uL Baso # (Auto) (0.0-0.2) X10*3/uL Abs Immat Gran (auto) (0.00-0.03) X10*3/uL Absolute Neuts (auto) (2.0-8.3) x10*3/uL Absolute Nucleated RBC (0.0-0.012) X10*3/uL Nucleated RBC % (auto) (0.0-0.2) /100WBC Smear Tech's Comments PT (10.0-13.1) SEC INR (0.9-1.1) VBG pH 7.15 L* (7.32-7.43) VBG pCO2 25 mmHg VBG pO2 97 mmHg VBG HCO3 9 L (22-26) mmol/L VBG O2 Saturation 94.0 % VBG Base Excess -18.0 mmol/L Sodium (135-145) mmol/L Potassium (3.3-5.1) mmol/L Chloride (96-108) mmol/L Carbon Dioxide (22-29) mmol/L Anion Gap (12-20) BUN (9-16) mg/dL Creatinine (0.5-1.4) mg/dL Estim Creat Clear Calc Estimated GFR Random Glucose (60-115) mg/dL Lactic Acid (0.5-2.0) mmol/L Calcium (8.4-10.2) mg/dL Total Bilirubin (0.0-1.0) mg/dL Direct Bilirubin (0.0-0.5) mg/dL AST (5-31) U/L ALT (0-31) U/L Alkaline Phosphatase (39-117) U/L Ammonia (13-55) umol/L Troponin I High Sens (<3.5-17.0) ng/L Total Protein (6.5-8.0) g/dL Albumin (3.5-5.0) g/dL Lipase (8-78) U/L Urine Color Dark Yellow Urine Appearance Cloudy Urine pH 5.5 (5.0-8.0) Ur Specific [place] 1.025 (1.005-1.025) Urine Protein 300 (3+) H (Neg-Trace) mg/dL Urine Glucose (UA) >=1000 H (Negative) mg/dL Urine Ketones Trace (Negative) mg/dL Urine Blood Negative (Negative) Urine Nitrite Negative (Negative) Ur Leukocyte Esterase Small (1+) H (Negative) Urine RBC 3-5 H (0-2) /HPF Urine WBC 21-50 H (0-5) /HPF Ur Squamous Epith Cells 11-20 (0-2) /HPF Calcium Oxalate Crystal Present Urine Bacteria None Seen (None Seen) Hyaline Casts >20 (0-2) /LPF COVID-19 (SHAY) Negative (Negative) COVID-19 Clin Com See Note <Jade Pugh MD - Last Filed: 11/23/21 22:52> Imaging Data CT scan - abdomen: Attestation: I personally reviewed and interpreted this imaging study as follows: <Matthew Saxena MD - Last Filed: 11/24/21 00:26> Radiologist's impression: CT/CT abdomen pelvis wo con IMPRESSION: ? 1. Findings compatible with ischemia of the rectosigmoid colon evidence by pneumatosis, adjacent pericolonic venous gas, and portal venous gas. No intra-abdominal free air is suggest perforation. 2. Multiple mildly dilated small bowel loops throughout the abdomen without discrete transition consistent with ileus. 3. Hepatomegaly and findings suggesting underlying hepatic fibrosis/cirrhosis. ? <Matthew Saxena MD - Last Filed: 11/24/21 00:26> ECG Data Attestation: I personally reviewed and interpreted this ECG as follows: <Matthew Saxena MD - Last Filed: 11/24/21 00:26> Interpretation: Nodes so the heart rate 95 beats per minute acute interval prolonged normal axis no acute ST wave changes no acute ischemic <Matthew Saxena MD - Last Filed: 11/24/21 00:26> Discharge Plan Discharge Clinical Impression: Ischemia, bowel, Metabolic acidosis <Matthew Saxena MD - Last Filed: 11/24/21 00:26> Patient Disposition: Admitted As Inpatient <Matthew Saxena MD - Last Filed: 11/24/21 00:26>
[2021-11-23] MEDS: Hydrocortisone Sod Succ/PF 100 MG VIAL IVPUSH (19:55)
[2021-11-23 20:00] LABS: Basophils Absolute Auto 0.1 X10*3/uL (0.0-0.2); Basophils Percent Auto 0.4 % (0-2); Hematocrit 37.1 % (37.0-47.0); Imm Gran Abs Auto 0.15 X10*3/uL (0.00-0.03); Imm Gran Pct Auto 1.1 % (0.0-0.4); Lymphocytes Absolute Auto 1.5 X10*3/uL (1.2-4.9); Lymphocytes Percent Auto 11.3 % (20-40); MANUAL DIFF FLAG SCAN; Mean Corpuscular HGB Conc 29.6 g/dl (31.0-35.0); Mean Corpuscular Hemoglobin 26.6 pg (27.0-33.0); Mean Corpuscular Volume 89.8 fL (80.0-98.0); Mean Platelet Volume 10.1 fL (9.4-12.3); Monocytes Absolute Auto 1.8 X10*3/uL (0.1-1.2); Monocytes Percent Auto 13.4 % (2-11); NRBC Pct Auto 0.2 /100WBC (0.0-0.2); Neutrophils Absolute Auto 9.7 x10*3/uL (2.0-8.3); Neutrophils Percent Auto 73.8 % (45-73); Platelet Count 335 X10*3/uL (160-400); Red Blood Count 4.13 X10*6/uL (4.20-5.50); Red Cell Distribution Width 20.1 % (11.0-16.0); SCAN SMEAR FLAG 1; White Blood Count 13.2 X10*3/uL (4.8-10.8)
[2021-11-23 20:03] LABS: Venous Blood Gas Refer to POC result
[2021-11-23 20:04] LABS: VBG HCO3 9 mmol/L (22-26); VBG pCO2 25 mmHg; VBG pO2 97 mmHg
[2021-11-23 20:07] LABS: INTERNATIONAL NORM RATIO 1.2 (0.9-1.1); Prothrombin Time 13.4 SEC (10.0-13.1)
[2021-11-23 20:07] LABS: VBG pH 7.15 (7.32-7.43)
[2021-11-23 20:10] LABS: COVID-19 Test Negative (Negative)
[2021-11-23] MEDS: ondansetron HCL 4 MG/2 ML VIAL IVPUSH (20:11)
[2021-11-23] MEDS: Sodium Bicarbonate 8.4% 50 MEQ/50 ML SYRINGE IVPUSH ×2 (20:18→21:58)
[2021-11-23 20:20] LABS: Ammonia 63 umol/L (13-55)
[2021-11-23 20:29] LABS: SLIDE REVIEW VERIFIED; Troponin-I High Sensitivity 19.8 ng/L (<3.5-17.0)
[2021-11-23 20:32] LABS: Lactic Acid 3.5 mmol/L (0.5-2.0)
[2021-11-23 20:33] LABS: Alanine Aminotransferase 28 U/L (0-31); Albumin Level 3.8 g/dL (3.5-5.0); Alkaline Phosphatase 74 U/L (39-117); Anion Gap 26 (12-20); Aspartate Amino Transferase 66 U/L (5-31); Bilirubin Direct 0.2 mg/dL (0.0-0.5); Bilirubin Total 0.5 mg/dL (0.0-1.0); Blood Urea Nitrogen 54 mg/dL (9-16); Calcium 7.6 mg/dL (8.4-10.2); Carbon Dioxide 8 mmol/L (22-29); Chloride 112 mmol/L (96-108); Creatinine Clr Calc Pharmacy 17.1; Estimated Glomerular Filt Rate 13; Glucose Random 151 mg/dL (60-115); Lipase 130 U/L (8-78); Potassium 5.2 mmol/L (3.3-5.1); Sodium 141 mmol/L (135-145)
[2021-11-23] MEDS: Piperacillin Sodium/Tazobactam 3.375 GM in 0.9 % Sodium Chloride 50 ML IV (21:43)
[2021-11-23 21:52] LABS: Reflex Lactate? Lactic Acid Added
[2021-11-23 22:01] LABS: Appearance Urine Cloudy; Color Urine Dark Yellow; Glucose Urine UA >=1000 mg/dL (Negative); Leukocyte Esterase Urine Small (1+) (Negative); Nitrite Urine Negative (Negative); PH 5.5 (5.0-8.0); Specific Gravity - Urine 1.025 (1.005-1.025); Urine Blood Negative (Negative); Urine Ketones Trace mg/dL (Negative); Urine Protein 300 (3+) mg/dL (Neg-Trace)
[2021-11-23] MEDS: 0.9 % Sodium Chloride 1,000 ML 250 ML IVCONT (22:08)
--- NOTE | 2021-11-23 22:12 | PM.HPGS ---
History of Present Illness History of Present Illness Date of Service: 12/02/21 Chief complaint: AMS/ Hypotensive Narrative: Sharri Salmeron is a 61 year old female who was brought in by ambulance for altered mntal status at home. She was actually oriented when she got to the ED. She describes abdominal pain for a week with diarrhea. She says she has not eaten much in a week. According to the , she has been progressively getting weaker. She had vomitted multiple times today as well. She denies blood per rectum Review of Systems Constitutional: Constitutional: Reports chills Cardiovascular: Cardiovascular: Reports Abdominal Distension and Reports dyspnea on exertion Respiratory: Respiratory: Reports cough and Reports dyspnea on exertion Gastrointestinal: Gastrointestinal: Denies hematochezia and Reports diarrhea Genitourinary: Genitourinary: Denies hematuria PMFSH Past Medical History Medical History Acute exacerbation of chronic obstructive airways disease Depression Diabetes mellitus Dysphagia, pharyngoesophageal phase Fibromyalgia Frequent falls GERD without esophagitis History of colon polyps Hx of hereditary disease IBS (irritable bowel syndrome) Steatohepatitis Urinary retention with incomplete bladder emptying Family History Family History Father History of heart attack Hx of type 1 diabetes mellitus Mother Alive and well Surgical History Surgical History History of colonoscopy History of esophagogastroduodenoscopy (EGD) Hx of cholecystectomy Hx of endoscopy Hx of tubal ligation S/p total knee replacement, bilateral Social History Social History Household Members: Spouse Housing: Apartment Do you presently have visiting nurse or other home services: Yes Alcohol intake: never Patient Tobacco Use Status: Former Tobacco user Quit Date: 12/02/2020 Tobacco use type: Cigarette Cigarette Packs Per Day: 0.5 Cigarettes Per Day: 10.0 Years Smoked: 25 yrs Advance Directives: Yes Advance Directives on File: Yes Advance Directives Date on File: 10/20/20 service: No Current occupational status: unemployed Meds Allergies Allergy/AdvReac Type Severity Reaction Status Date / Time oxycodone [Percocet] Allergy Intermediate Itching Verified 09/06/21 15:21 Vicodin Allergy Intermediate itching Uncoded 09/02/21 10:45 Active Medications: Current Medications Sodium Chloride (Ns) 1,000 mls @ 250 mls/hr IVCONT .Q4H KIMBERLY Stop: 11/24/21 01:59 Last Admin: 11/23/21 22:08 Dose: 250 mls/hr Sodium Chloride (Ns) 1,000 mls @ 999 mls/hr IV .Q1H1M ONE Stop: 11/23/21 23:08 Home Medications Medication Instructions Recorded Confirmed Last Taken Type fenofibrate micronized 134 mg 134 mg PO DAILY 01/21/20 09/02/21 01/06/21 History capsule blood sugar diagnostic #10 ea 06/25/20 09/02/21 Unknown History cholecalciferol (vitamin D3) 50 50 mcg PO DAILY 06/25/20 09/02/21 01/06/21 History mcg (2,000 unit) capsule diclofenac sodium 1 % topical gel 2 g topical QID 06/25/20 09/02/21 01/06/21 History hydroxyzine HCl 50 mg tablet 50 mg PO BID PRN anxiety 06/25/20 09/02/21 01/06/21 History mirtazapine 45 mg tablet 45 mg PO BEDTIME 06/25/20 09/02/21 01/05/21 History atorvastatin 80 mg tablet 1 tab PO BEDTIME 10/17/20 09/02/21 01/05/21 History duloxetine 60 mg capsule,delayed 1 cap PO BID 10/17/20 09/02/21 01/06/21 History release empagliflozin 10 mg tablet 1 tab PO DAILY diabetes mellitus 01/06/21 09/02/21 01/06/21 History (Jardiance) metformin 500 mg tablet 2 tab PO BID 01/06/21 09/02/21 01/06/21 History alcohol swabs (Alcohol Prep Pads) 0 pad topical 03/02/21 09/02/21 Unknown History amlodipine 2.5 mg tablet 2.5 mg PO DAILY 03/02/21 09/02/21 Unknown History blood-glucose meter (FreeStyle #1 ea 03/02/21 09/02/21 Unknown History Pleasant Unity Lite kit) inhalational spacing device #1 ea 03/02/21 09/02/21 Unknown History (Compact Space Chamber) lancets 33 gauge (TRUEplus Lancets) #100 ea 03/02/21 09/02/21 Unknown History vitamin E 100 unit capsule 1 cap PO DAILY 03/02/21 09/02/21 Unknown History dulaglutide 1.5 mg/0.5 mL mg subcut QWEEK diabetes mellitus 08/16/21 09/02/21 Unknown History subcutaneous pen injector (Trulicity) lisinopril 10 mg tablet 10 mg PO DAILY 08/16/21 09/02/21 Unknown History quetiapine 100 mg tablet 0 mg PO 08/16/21 09/02/21 Unknown History tizanidine 2 mg tablet 6 mg PO Q12H PRN 08/16/21 09/02/21 Unknown History prednisone 20 mg tablet 20 mg PO DAILY PRN pain 09/02/21 09/02/21 Unknown History Physical Exam Vital Signs: Vital Signs: Last Vital Signs Temp 98.2 F 11/23/21 19:49 Pulse 106 H 11/23/21 22:12 Resp 20 11/23/21 22:12 BP 93/54 L 11/23/21 22:12 Pulse Ox 99 11/23/21 20:21 O2 Del Method 11/23/21 20:21 O2 Flow Rate 2 11/23/21 20:21 Oxygen Flow Rate 2 11/23/21 19:29 BMI result Body Mass Index 39.0 Const: Other: answering questions properly, in some respiratory distress Resp: Effort & Inspection: respiratory distress Cardio: Rate: tachycardic GI: Other: distended, with guarding, tenderness diffusely, mostly lower abdomen Extrem: Other: cool and clammy Results Results Labs: Short CBC 11/23/21 Range/Units 19:46 WBC 13.2 H (4.8-10.8) X10*3/uL Hgb 11.0 L (12.0-16.0) g/dl Hct 37.1 (37.0-47.0) % Plt Count 335 (160-400) X10*3/uL BMP 11/23/21 19:46 Sodium 141 Potassium 5.2 H D Chloride 112 H Carbon Dioxide 8 L* D BUN 54 H D Creatinine 3.50 H Calcium 7.6 L D Liver Function 11/23/21 Range/Units 19:46 Total Bilirubin 0.5 (0.0-1.0) mg/dL Direct Bilirubin 0.2 (0.0-0.5) mg/dL AST 66 H (5-31) U/L ALT 28 (0-31) U/L Alkaline Phosphatase 74 D (39-117) U/L Albumin 3.8 D (3.5-5.0) g/dL Additional studies: Laboratory Results WBC 13.2 X10*3/uL (4.8-10.8) H 11/23/21 19:46 RBC 4.13 X10*6/uL (4.20-5.50) L 11/23/21 19:46 Hgb 11.0 g/dl (12.0-16.0) L 11/23/21 19:46 Hct 37.1 % (37.0-47.0) 11/23/21 19:46 MCV 89.8 fL (80.0-98.0) 11/23/21 19:46 MCH 26.6 pg (27.0-33.0) L 11/23/21 19:46 MCHC 29.6 g/dl (31.0-35.0) L 11/23/21 19:46 RDW 20.1 % (11.0-16.0) H 11/23/21 19:46 Plt Count 335 X10*3/uL (160-400) 11/23/21 19:46 MPV 10.1 fL (9.4-12.3) 11/23/21 19:46 Immature Gran % (Auto) 1.1 % (0.0-0.4) H 11/23/21 19:46 Neut % (Auto) 73.8 % (45-73) H 11/23/21 19:46 Lymph % (Auto) 11.3 % (20-40) L 11/23/21 19:46 [place] % (Auto) 13.4 % (2-11) H 11/23/21 19:46 Eos % (Auto) 0.0 % (0-4) 11/23/21 19:46 Baso % (Auto) 0.4 % (0-2) 11/23/21 19:46 Lymph # (Auto) 1.5 X10*3/uL (1.2-4.9) 11/23/21 19:46 [place] # (Auto) 1.8 X10*3/uL (0.1-1.2) H 11/23/21 19:46 Eos # (Auto) 0.0 X10*3/uL (0.0-0.4) 11/23/21 19:46 Baso # (Auto) 0.1 X10*3/uL (0.0-0.2) 11/23/21 19:46 Abs Immat Gran (auto) 0.15 X10*3/uL (0.00-0.03) H 11/23/21 19:46 Absolute Neuts (auto) 9.7 x10*3/uL (2.0-8.3) H 11/23/21 19:46 Absolute Nucleated RBC 0.020 X10*3/uL (0.0-0.012) H 11/23/21 19:46 Nucleated RBC % (auto) 0.2 /100WBC (0.0-0.2) 11/23/21 19:46 Smear Tech's Comments VERIFIED 11/23/21 19:46 PT 13.4 SEC (10.0-13.1) H 11/23/21 19:46 INR 1.2 (0.9-1.1) H 11/23/21 19:46 VBG pH 7.15 (7.32-7.43) L* 11/23/21 19:57 VBG pCO2 25 mmHg 11/23/21 19:57 VBG pO2 97 mmHg 11/23/21 19:57 VBG HCO3 9 mmol/L (22-26) L 11/23/21 19:57 VBG O2 Saturation 94.0 % 11/23/21 19:57 VBG Base Excess -18.0 mmol/L 11/23/21 19:57 Sodium 141 mmol/L (135-145) 11/23/21 19:46 Potassium 5.2 mmol/L (3.3-5.1) H D 11/23/21 19:46 Chloride 112 mmol/L (96-108) H 11/23/21 19:46 Carbon Dioxide 8 mmol/L (22-29) L* D 11/23/21 19:46 Anion Gap 26 (12-20) H 11/23/21 19:46 BUN 54 mg/dL (9-16) H D 11/23/21 19:46 Creatinine 3.50 mg/dL (0.5-1.4) H 11/23/21 19:46 Estim Creat Clear Calc 17.1 11/23/21 19:46 Estimated GFR 13 11/23/21 19:46 Random Glucose 151 mg/dL (60-115) H 11/23/21 19:46 Lactic Acid 3.5 mmol/L (0.5-2.0) H* 11/23/21 19:46 Calcium 7.6 mg/dL (8.4-10.2) L D 11/23/21 19:46 Total Bilirubin 0.5 mg/dL (0.0-1.0) 11/23/21 19:46 Direct Bilirubin 0.2 mg/dL (0.0-0.5) 11/23/21 19:46 AST 66 U/L (5-31) H 11/23/21 19:46 ALT 28 U/L (0-31) 11/23/21 19:46 Alkaline Phosphatase 74 U/L (39-117) D 11/23/21 19:46 Ammonia 63 umol/L (13-55) H 11/23/21 19:46 Troponin I High Sens 19.8 ng/L (<3.5-17.0) H 11/23/21 19:46 Total Protein 7.0 g/dL (6.5-8.0) 11/23/21 19:46 Albumin 3.8 g/dL (3.5-5.0) D 11/23/21 19:46 Lipase 130 U/L (8-78) H 11/23/21 19:46 Urine Color Dark Yellow 11/23/21 21:54 Urine Appearance Cloudy 11/23/21 21:54 Urine pH 5.5 (5.0-8.0) 11/23/21 21:54 Ur Specific [place] 1.025 (1.005-1.025) 11/23/21 21:54 Urine Protein 300 (3+) mg/dL (Neg-Trace) H 11/23/21 21:54 Urine Glucose (UA) >=1000 mg/dL (Negative) H 11/23/21 21:54 Urine Ketones Trace mg/dL (Negative) 11/23/21 21:54 Urine Blood Negative (Negative) 11/23/21 21:54 Urine Nitrite Negative (Negative) 11/23/21 21:54 Ur Leukocyte Esterase Small (1+) (Negative) H 11/23/21 21:54 COVID-19 (SHAY) Negative (Negative) 11/23/21 19:46 COVID-19 Clin Com See Note 11/23/21 19:46 Impressions Abdomen/Pelvis CT 11/23/21 21:09 IMPRESSION: 1. Findings compatible with ischemia of the rectosigmoid colon evidence by pneumatosis, adjacent pericolonic venous gas, and portal venous gas. No intra-abdominal free air is suggest perforation. 2. Multiple mildly dilated small bowel loops throughout the abdomen without discrete transition consistent with ileus. 3. Hepatomegaly and findings suggesting underlying hepatic fibrosis/cirrhosis. This critical result was discussed with Dr. Parra at 9:31 PM on 11/23/2021 and it was ascertained that the content and urgency of the report was understood at the time of direct communication. Assessment and Plan (1) Ischemia, bowel: Status: Inactive 61F with abdominal pain, hypotension, metabolic acidosis, with a CT scan showing ischemia of the rectosigmoid with pneumatosis, portavenous gas. She needs emergent laparotomy, and resection of the ischemic bowel with a stoma. I have explained this to the patient. I explaind the risks of bleeding, infections, further ischemia, organ failure, stoma complicaions, and even . She states she understands and has given consent. She is being agressively resuscitated with IV fluids at this time. A Becerra cath has been placed. I am uncertain as to the etiology of her ischemia. She does not appear to have signficant cardiac issues. She does state a history of diarrhea for a week now. I explained to her and her family that she is critically ill. She has been hypotensive here in the ED. Quality Stroke Does the patient have a stroke diagnosis?: No VTE Prior VTE?: No VTE Risk Level:: Medical - moderate - high VTE Device Contraindication: N/A - Device Ordered VTE Drug Contraindication: N/A - Med Ordered Procedures Date of Service Date of Service: 11/23/21
--- NOTE | 2021-11-23 22:22 | PC.NURSE ---
called [facility] transfer line at 22:17 spoke with Parris pt was denied no beds available.
--- NOTE | 2021-11-23 22:23 | PC.NURSE ---
called [facility] at 22:20 spoke with Anabelle Saxena took over call , awaiting call back for transfer.
[2021-11-23 22:32] LABS: Bacteria Urine None Seen (None Seen); Calcium Oxalate Crystals Urine Present; Hyaline Casts Urine >20 /LPF (0-2); UACC Culture Trigger YES; WBC Urine 21-50 /HPF (0-5)
--- NOTE | 2021-11-23 22:58 | PC.NURSE ---
called [facility] at 22:30 transport pilot declined due to weather , asked for ground transfer awaiting for [facility] to call back they stated it will be a [address] Saxena.
--- NOTE | 2021-11-23 23:01 | PC.NURSE ---
called [facility] to speak with mine engineering supervisor spoke with Jade she stated that their was no mine engineering supervisor diamond cleaner.
--- NOTE | 2021-11-23 23:20 | PC.NURSE ---
@[phone] Jeremías from [facility] called to cancel transport to [facility], patient is not critical enough for transport.
--- NOTE | 2021-11-24 00:12 | PC.NURSE ---
this [place] called out to multiple ambulance companies regarding ALS transport, spoke to rosa isela from [facility] @[phone] they only have one medic and no water control supervisor propulsion machinery service engineer @[phone] I called [facility] and they are unable to transport patient because the patient does not have [facility] @[phone] Call out to [facility] they are unable to because of distance and no staff @[phone] [facility] to [facility] and they can not until [phone] @[phone] call out to [facility] and they have no units running tonight
--- NOTE | 2021-11-24 00:33 | PC.NURSE ---
call out to [facility] transfer line @[phone]
--- NOTE | 2021-11-24 00:53 | PC.NURSE ---
@[phone] lou from [facility] called with an accepting ambulance ([facility]) [facility] will be here within the hour or two to transport patient
[2021-11-24 01:18] LABS: ~Lactic Acid-LAB USE ONLY 1.8 mmol/L (0.5-2.0)
[2021-11-24 01:48] VITALS: RESP 16
[2021-11-24] MEDS: fentaNYL citrate/PF 100 MCG/2 ML VIAL 50 MCG IVPUSH (01:48)
[2021-11-24 01:53] LABS: Anion Gap 22 (12-20); Blood Urea Nitrogen 51 mg/dL (9-16); Calcium 6.6 mg/dL (8.4-10.2); Carbon Dioxide 12 mmol/L (22-29); Chloride 118 mmol/L (96-108); Estimated Glomerular Filt Rate 15; Glucose Random 144 mg/dL (60-115); Potassium 4.1 mmol/L (3.3-5.1); Sodium 148 mmol/L (135-145)
== END 2021-11-24 02:23 | disposition short-term general hospital (02) ==
PROVIDERS: Emergency Provider Internal Medicine
DX: K55.9 Vascular disorder of intestine, unspecified (principal); E87.2 Acidosis; I95.9 Hypotension, unspecified; R14.0 Abdominal distension (gaseous); J44.9 Chronic obstructive pulmonary disease, unspecified; Z79.899 Other long term (current) drug therapy; Z20.822 Contact with and (suspected) exposure to COVID-19; Z87.891 Personal history of nicotine dependence
CPT/HCPCS: 36415; 36556; 71045; 74176; 80048; 80076; 81001; 81003; 82140; 82803; 83605; 83690; 84484; 85025; 85610; 87040; 87086; 87635; 93005; 96361; 96365; 96367; 96375; 96376; 99285; J0696; J2405; J2543; J3010

== ENCOUNTER 2021-12-31 08:57 | Outpatient (REF) | payer OTHER, SELFPAY ==
--- NOTE | ~2021-12-31 | MR_ITS ---
EXAMINATION: MR LUMBAR SPINE WITHOUT AND WITH CONTRAST CLINICAL INFORMATION: Lumbar stenosis. History of surgery. COMPARISON: Lumbar spine MRI 08/10/2021. TECHNIQUE: Multiplanar MR imaging of the lumbar spine was performed without and with contrast. A total of 7 mL Gadavist was utilized for this examination. FINDINGS: There are chronic postsurgical changes with interspinous hardware at L4-L5. There is grade 1 anterolisthesis of L5 on S1 related to advanced facet degenerative changes at this level. Alignment is otherwise normal. Vertebral heights are preserved. No acute bone marrow signal changes. There is disc desiccation at multiple levels without substantial loss of intervertebral disc height. The tip of the conus medullaris is located at the level of L1-L2. No mass effect on the conus. Visualized distal cord signal intensity is normal. At L1-L2 there is a slightly bulging disc. Bilateral facet degenerative change. No canal stenosis. No mass effect on the traversing or foraminal nerve roots. At L2-L3 there is a slightly bulging disc. Bilateral facet degenerative change. No canal stenosis. No mass effect on the traversing or foraminal nerve roots. At L3-L4 there is a slightly bulging disc. Bilateral facet degenerative change. No canal stenosis. Partial effacement of perineural fat with mild mass effect on the right L3 foraminal nerve root. At L4-L5 there is a diffusely bulging disc. Advanced facet degenerative change. Mild canal stenosis. There are small synovial cyst arising from both L4-L5 articular facet joints the cause subtle displacement of the traversing L5 nerve roots. No foraminal nerve root compression. At L5-S1 there is a pseudodisc bulge. Advanced bilateral facet degenerative change. No canal stenosis. No mass effect on the traversing or foraminal nerve roots. Limited visualization of the retroperitoneal anatomy reveals no abnormal finding. Psoas and paraspinal muscle groups are symmetric. MR/MR lumbar spine wo/w con IMPRESSION: There are chronic postoperative changes at L4-L5. Small synovial cysts arising from both L4-L5 articular facet joints cause subtle medial displacement of both traversing L5 nerve roots. There is also an asymmetrically bulging disc at L3-L4 causing mild mass effect on the right L3 foraminal nerve root. Otherwise no substantial mass effect on the traversing or foraminal nerve roots elsewhere within the lumbar spine. Of note there is grade 1 anterolisthesis of L5 on S1 related to advanced facet degenerative changes at this level.
== END 2021-12-31 08:58 | disposition home or self-care (01) ==
LOC: HO.MRI 08:57
PROVIDERS: Visit Provider Neurological Surgery
DX: M48.061 Spinal stenosis, lumbar region without neurogenic claudication (principal)
CPT/HCPCS: 72158; A9585

== ENCOUNTER → 2022-01-06 10:33 | Outpatient (BNVA) | payer OTHER, SELFPAY | PROVIDERS: PCP Registered Nurse; Visit Provider Internal Medicine Pulmonary Disease | DX: J44.9 Chronic obstructive pulmonary disease, unspecified (principal); Z99.81 Dependence on supplemental oxygen | CPT/HCPCS: 99212 ==

== ENCOUNTER 2022-01-11 08:26 | Outpatient (REF) | payer OTHER, SELFPAY ==
--- NOTE | ~2022-01-11 | US_ITS ---
EXAMINATION: US ABDOMEN COMPLETE CLINICAL INFORMATION: Early cirrhosis on past CT scan. COMPARISON: X-ray abdomen KUB 11/26/2021. X-ray abdomen portable 11/25/2021. CT abdomen and pelvis 11/23/2021 and 08/06/2020. US abdomen complete with liver elastography 05/16/2019. Ultrasound abdomen complete 06/20/2018. TECHNIQUE: Real-time imaging of the abdominal viscera. FINDINGS: PANCREAS: Normal. ABDOMINAL AORTA: The proximal, mid, and distal segments are normal in caliber. INFERIOR VENA CAVA: Visualized portions are normal. LIVER: The liver is normal in size. There is prominence of the left lobe and caudate lobe and slightly irregular contour of the liver suggestive of mild cirrhosis. Parenchymal echogenicity is normal. No focal hepatic lesion. There is no intrahepatic biliary duct dilatation seen. The main portal vein is patent with appropriate hepatopedal flow. GALLBLADDER: Surgically absent. COMMON BILE DUCT: Normal in caliber measuring 0.4 cm in diameter. RIGHT KIDNEY: Normal. No hydronephrosis. No renal calculi or focal parenchymal lesions. The kidney measures 10.7 cm in maximum dimension. LEFT KIDNEY: Normal. No hydronephrosis. No renal calculi or focal parenchymal lesions. The kidney measures 9.5 cm in maximum dimension. SPLEEN: Normal. The spleen measures 10.8 cm in maximum dimension. FREE FLUID: None. US/US abdomen complete IMPRESSION: Cirrhotic-appearing liver. No focal liver lesion or ascites.
== END 2022-01-11 08:27 | disposition home or self-care (01) ==
LOC: HO.US 08:26
PROVIDERS: Visit Provider Internal Medicine Gastroenterology
DX: R06.01 Orthopnea (principal)
CPT/HCPCS: 76700

== ENCOUNTER → 2022-03-31 09:32 | Outpatient (BNVA) | payer OTHER, SELFPAY | PROVIDERS: PCP Registered Nurse; Visit Provider Internal Medicine Gastroenterology | DX: K58.9 Irritable bowel syndrome, unspecified (principal); K21.9 Gastro-esophageal reflux disease without esophagitis; K75.81 Nonalcoholic steatohepatitis (NASH); R13.14 Dysphagia, pharyngoesophageal phase; Z86.010 Personal history of colon polyps | CPT/HCPCS: 99212 ==

== ENCOUNTER → 2022-05-05 10:19 | Outpatient (BNVA) | payer OTHER, SELFPAY | PROVIDERS: PCP Nurse Practitioner; Visit Provider Nurse Practitioner Family | DX: M25.511 Pain in right shoulder (principal); M25.512 Pain in left shoulder; M79.7 Fibromyalgia; J44.1 Chronic obstructive pulmonary disease with (acute) exacerbation; Z96.653 Presence of artificial knee joint, bilateral; Z99.89 Dependence on other enabling machines and devices; Z79.899 Other long term (current) drug therapy | CPT/HCPCS: 99212 ==

== ENCOUNTER 2022-06-15 08:43 | Outpatient (REF) | payer OTHER, SELFPAY ==
--- NOTE | ~2022-06-15 | FL_ITS ---
EXAMINATION: FL BARIUM SWALLOW CLINICAL INFORMATION: R13.14 - Dysphagia, pharyngoesophageal phase. Intermittent dysphagia to solids assess for esophageal motility disorder. COMPARISON: CT abdomen 11/23/2021, CTA chest 10/16/2020 TECHNIQUE: Barium swallow examination is performed using fluoroscopic evaluation in addition to multiple fluoroscopic spot views, including cine images during swallowing. The patient is imaged both upright and prone and using both thick and thin sulfate along with effervescent granules. Barium pill challenge also performed. Fluoroscopy time: 2.3 minutes DAP: 9.275 Gycm2 Images: 29 FINDINGS: Swallowing function is normal and there is no aspiration. There is rapid transit of contrast from the mouth to the upper thoracic esophagus. No cervical web or diverticulum or stricture. The cervical thoracic junction appears normal. No cervical achalasia. There are degenerative changes mid cervical spine and prior fusion hardware. The thoracic esophagus shows normal motility with patient upright but there are some scattered intermittent tertiary contraction with patient prone. The mucosa appears normal. No ulceration. No hiatal hernia or reflux despite provocative maneuvers. Although no stricture is clearly demonstrated, there is delay in transit of the barium pill. Upon swallowing, the barium pill resides at the esophagogastric junction for approximately 3 minutes before passage. Patient noted typical cervical area symptoms at this time. Cursory view upper abdomen shows no gastric outlet obstruction. FL/FL barium swallow IMPRESSION: -Esophageal motility normal with patient upright but with scattered intermittent tertiary contractions with patient prone. -Although no stricture is clearly demonstrated, there is delay in transit of the barium pill. Upon swallowing, the barium pill resides at the esophagogastric junction for approximately 3 minutes before passage. Patient noted typical cervical area symptoms at this time.
== END 2022-06-15 08:44 | disposition home or self-care (01) ==
LOC: HO.XRAY 08:43
PROVIDERS: Visit Provider Internal Medicine Gastroenterology
DX: R13.14 Dysphagia, pharyngoesophageal phase (principal)
CPT/HCPCS: 74220

== ENCOUNTER → 2022-08-10 10:44 | Outpatient (REF) | payer OTHER, SELFPAY | LOC: HO.SL 10:44 | PROVIDERS: PCP Registered Nurse; Visit Provider Internal Medicine Pulmonary Disease | DX: G47.33 Obstructive sleep apnea (adult) (pediatric) (principal) | CPT/HCPCS: 95806 ==

== ENCOUNTER → 2022-09-02 09:53 | Outpatient (BNVA) | payer OTHER, SELFPAY | PROVIDERS: PCP Registered Nurse; Visit Provider Urology | DX: R39.12 Poor urinary stream (principal); R39.11 Hesitancy of micturition | CPT/HCPCS: 51798; 99212 ==

== ENCOUNTER → 2022-09-22 09:31 | Outpatient (BNVA) | payer OTHER, SELFPAY | PROVIDERS: Visit Provider Internal Medicine Gastroenterology | DX: K58.9 Irritable bowel syndrome, unspecified (principal); R13.14 Dysphagia, pharyngoesophageal phase; K21.9 Gastro-esophageal reflux disease without esophagitis; K75.81 Nonalcoholic steatohepatitis (NASH); K74.60 Unspecified cirrhosis of liver; Z86.010 Personal history of colon polyps | CPT/HCPCS: 99212 ==

== ENCOUNTER 2022-10-18 10:55 | Day surgery (SDC) | payer OTHER, SELFPAY ==
--- NOTE | 2022-10-17 12:05 | P.CONAN_ITS ---
Documented by User: Pat Camacho NP 10/17/22 12:08 HPI - Anesthesia Eval Consult details Narrative: 62yo F for Upper Endoscopy and Colonoscopy Early cirrhosis d/t Steatohepatitis PMFSH Active Problems Active Problems: All Active Problems (Updated 10/04/22 @ 18:28 by Holland Bautista MD) Cirrhosis (Acute) NIURKA (obstructive sleep apnea) (Acute) Encounter for preoperative pulmonary examination (Acute) Spinal stenosis at L4-L5 level (Acute) Frequent falls (Acute) Sacroiliac joint dysfunction (Acute) Lumbar radiculopathy (Acute) Lumbar spondylosis (Acute) Pulmonary nodules (Acute) Weak urinary stream (Acute) Urinary hesitancy (Acute) Pneumonia (Acute) COPD (chronic obstructive pulmonary disease) (Acute) Dyspnea on exertion (Acute) Community acquired pneumonia (Acute) COPD exacerbation (Acute) Sepsis (Acute) Acute respiratory failure with hypoxia (Acute) ELIZABET (acute kidney injury) (Acute) Anemia (Acute) Supplemental oxygen dependent (Acute) Urinary retention with incomplete bladder emptying (Acute) Shortness of breath (Acute) Aortic valve sclerosis (Acute) Diastolic dysfunction (Acute) Steatohepatitis (Acute) Dysphagia, pharyngoesophageal phase (Acute) GERD without esophagitis (Acute) History of colon polyps (Acute) IBS (irritable bowel syndrome) (Acute) Fibromyalgia (Acute) Past Medical History Medical History Acute exacerbation of chronic obstructive airways disease Depression Diabetes mellitus Dysphagia, pharyngoesophageal phase Fibromyalgia Frequent falls GERD without esophagitis History of colon polyps Hx of hereditary disease IBS (irritable bowel syndrome) Steatohepatitis Urinary retention with incomplete bladder emptying Family History Family History Father History of heart attack Hx of type 1 diabetes mellitus Mother Alive and well Surgical History Surgical History History of back surgery History of colonoscopy History of esophagogastroduodenoscopy (EGD) Hx of abdominal surgery Hx of cholecystectomy Hx of endoscopy Hx of tubal ligation S/p total knee replacement, bilateral History of Problems with Anesthesia: No Social History Social History Household Members: Spouse Housing: Apartment Do you presently have visiting nurse or other home services: Yes Alcohol intake: never Patient Tobacco Use Status: Former Tobacco user Quit Date: 12/02/2020 Tobacco use type: Cigarette Cigarette Packs Per Day: 0.5 Cigarettes Per Day: 10.0 Years Smoked: 25 yrs Use of substances other than those prescribed or required for medical reasons: No Are you DNR?: No Advance Directives: No Advance Directives Information Provided: Yes Advance Directives Date on File: 10/20/20 service: No Current occupational status: unemployed Meds Allergies Allergy/AdvReac Type Severity Reaction Status Date / Time oxycodone [Percocet] Allergy Intermediate Itching Verified 09/22/22 09:36 Vicodin Allergy Intermediate itching Uncoded 09/02/22 09:56 Home Medications Medication Instructions Recorded Confirmed Last Taken Type fenofibrate micronized 134 mg 134 mg PO DAILY 01/21/20 10/18/22 10/18/22 History capsule blood sugar diagnostic #10 ea 06/25/20 09/22/22 Unknown History cholecalciferol (vitamin D3) 50 50 mcg PO DAILY 06/25/20 10/18/22 10/18/22 History mcg (2,000 unit) capsule diclofenac sodium 1 % topical gel 2 g topical QID 06/25/20 10/18/22 01/06/21 History mirtazapine 45 mg tablet 45 mg PO BEDTIME 06/25/20 10/18/22 01/05/21 History atorvastatin 80 mg tablet 80 mg PO BEDTIME 10/17/20 10/18/22 01/05/21 History duloxetine 60 mg capsule,delayed 1 cap PO BID 10/17/20 10/18/22 01/06/21 History release empagliflozin 10 mg tablet 1 tab PO DAILY diabetes mellitus 01/06/21 10/18/22 10/18/22 History (Jardiance) amlodipine 2.5 mg tablet 2.5 mg PO DAILY 03/02/21 10/18/22 10/18/22 History blood-glucose meter (FreeStyle #1 ea 03/02/21 09/22/22 Unknown History [place] Lite kit) inhalational spacing device #1 ea 03/02/21 09/22/22 Unknown History (Compact Space Chamber) lancets 33 gauge (TRUEplus Lancets) #100 ea 03/02/21 09/22/22 Unknown History vitamin E 100 unit capsule 1 cap PO DAILY 03/02/21 10/18/22 Unknown History dulaglutide 1.5 mg/0.5 mL mg subcut QWEEK diabetes mellitus 08/16/21 09/22/22 Unknown History subcutaneous pen injector (Trulicity) lisinopril 10 mg tablet 10 mg PO DAILY 08/16/21 10/18/22 10/18/22 History hydroxyzine pamoate 50 mg capsule 50 mg PO TID 05/05/22 10/18/22 10/18/22 History quetiapine 200 mg tablet 250 mg PO BEDTIME 05/05/22 10/18/22 Unknown History Exam Exam Date and Time: October 17, 2022 1205 Narrative Narrative: ECHO 2020 Conclusions: - 1. Normal LV systolic function with mild LVH with impaired ? ? relaxation filling pattern ? 2. Fibrocalcific aortic valve changes noted with mildly increased gradient which may suggest early aortic stenosis ? 3. Normal RV systolic pressure ? 4. No pericardial effusion ? Assessment and Plan Assessment Anesthesia Assessment: Chart Reviewed Final Anesthetic Review History of Problems with Anesthesia: No Documented by User: Anabelle Marsh MD 10/18/22 15:00 [facility] Past Medical History Medical History Acute exacerbation of chronic obstructive airways disease Depression Diabetes mellitus Dysphagia, pharyngoesophageal phase Fibromyalgia Frequent falls GERD without esophagitis History of colon polyps Hx of hereditary disease IBS (irritable bowel syndrome) Steatohepatitis Urinary retention with incomplete bladder emptying Family History Family History Father History of heart attack Hx of type 1 diabetes mellitus Mother Alive and well Family history of problems with anesthesia: No Surgical History Surgical History History of back surgery History of colonoscopy History of esophagogastroduodenoscopy (EGD) Hx of abdominal surgery Hx of cholecystectomy Hx of endoscopy Hx of tubal ligation S/p total knee replacement, bilateral Social History Social History Household Members: Spouse Housing: Apartment Do you presently have visiting nurse or other home services: Yes Alcohol intake: never Patient Tobacco Use Status: Former Tobacco user Quit Date: 12/02/2020 Tobacco use type: Cigarette Cigarette Packs Per Day: 0.5 Cigarettes Per Day: 10.0 Years Smoked: 25 yrs Use of substances other than those prescribed or required for medical reasons: No Are you DNR?: No Advance Directives: No Advance Directives Information Provided: Yes Advance Directives Date on File: 10/20/20 service: No Current occupational status: unemployed Meds Allergies Allergy/AdvReac Type Severity Reaction Status Date / Time oxycodone [Percocet] Allergy Intermediate Itching Verified 09/22/22 09:36 Vicodin Allergy Intermediate itching Uncoded 09/02/22 09:56 Home Medications Medication Instructions Recorded Confirmed Last Taken Type fenofibrate micronized 134 mg 134 mg PO DAILY 01/21/20 10/18/22 10/18/22 History capsule blood sugar diagnostic #10 ea 06/25/20 09/22/22 Unknown History cholecalciferol (vitamin D3) 50 50 mcg PO DAILY 06/25/20 10/18/22 10/18/22 History mcg (2,000 unit) capsule diclofenac sodium 1 % topical gel 2 g topical QID 06/25/20 10/18/22 01/06/21 History mirtazapine 45 mg tablet 45 mg PO BEDTIME 06/25/20 10/18/22 01/05/21 History atorvastatin 80 mg tablet 80 mg PO BEDTIME 10/17/20 10/18/22 01/05/21 History duloxetine 60 mg capsule,delayed 1 cap PO BID 10/17/20 10/18/22 01/06/21 History release empagliflozin 10 mg tablet 1 tab PO DAILY diabetes mellitus 01/06/21 10/18/22 10/18/22 History (Jardiance) amlodipine 2.5 mg tablet 2.5 mg PO DAILY 03/02/21 10/18/22 10/18/22 History blood-glucose meter (FreeStyle #1 ea 03/02/21 09/22/22 Unknown History [place] Lite kit) inhalational spacing device #1 ea 03/02/21 09/22/22 Unknown History (Compact Space Chamber) lancets 33 gauge (TRUEplus Lancets) #100 ea 03/02/21 09/22/22 Unknown History vitamin E 100 unit capsule 1 cap PO DAILY 03/02/21 10/18/22 Unknown History dulaglutide 1.5 mg/0.5 mL mg subcut QWEEK diabetes mellitus 08/16/21 09/22/22 Unknown History subcutaneous pen injector (Trulicity) lisinopril 10 mg tablet 10 mg PO DAILY 08/16/21 10/18/22 10/18/22 History hydroxyzine pamoate 50 mg capsule 50 mg PO TID 05/05/22 10/18/22 10/18/22 History quetiapine 200 mg tablet 250 mg PO BEDTIME 05/05/22 10/18/22 Unknown History Exam Airway Mallampati Class: II TM Dist: >3cm Neck ROM: Full Loose/Missing/Broken Teeth: Yes and Upper Heart: rr Lungs: cta Assessment and Plan Assessment Anesthesia Assessment: Anesthesia Plan Discussed Final Anesthetic Review Family History of Problems with Anesthesia: No NPO: Yes ASA Class: III Final Preanesthetic Review: No Changes in Pt Med Stat, Meds/Allgs Chart Reviewed, Consent Obtained/Reviewed and Anes Risks/Benef Reviewed Anesthetic Plan Anesthetic Plan: MAC: Disposition: Standard PACU
[2022-10-18 12:40] VITALS: BMI 32.2
[2022-10-18 12:46] VITALS: BP 108/65; PULSE 77; RESP 16; TEMP 36.4; O2SAT 95
[2022-10-18 13:10] LABS: Glucose, Whole Blood 94 mg/dL (60-115)
[2022-10-18] MEDS: Lactated Ringers 1,000 ML 100 ML IVCONT (13:13)
[2022-10-18 13:14] LABS: Anion Gap 13 (12-20); Blood Urea Nitrogen 19 mg/dL (9-16); Calcium 10.7 mg/dL (8.4-10.2); Carbon Dioxide 26 mmol/L (22-29); Chloride 106 mmol/L (96-108); Creatinine Clr Calc Pharmacy 51.8; Estimated Glomerular Filt Rate 47; Glucose Fasting 87 mg/dL (60-99); Potassium 4.7 mmol/L (3.3-5.1); Sodium 140 mmol/L (135-145)
[2022-10-18 13:57] VITALS: PULSE 77; RESP 16; O2SAT 97
[2022-10-18] MEDS: Albuterol Sulfate (0.083%) 2.5 MG/3 ML VIAL.NEB INHALE (13:57)
--- NOTE | 2022-10-18 14:16 | W.PM.OPN ---
Operative Note Operative Note Date of Service: 10/18/22 Narrative: FLEXIBLE TRANSORAL UPPER GASTROINTESTINAL ENDOSCOPY WITH BIOPSIES AND ESOPHAGEAL BALLOON DILATION AND COLONOSCOPY TILL CECUM WITH SNARE POLYPECTOMY Pre-op diagnosis: Colon cancer screening, history of colon polyps, dysphagia, abnormal barium swallow Post-op diagnosis: GERD, dysphagia, colon polyps, diverticulosis, hemorrhoids Endoscopist:? Holland Bautista MD Anesthesia:?MAC UPPER ENDOSCOPY Consent: Indications for the procedure and potential complications of bleeding, perforation, reaction to medications and missed diagnosis were discussed with the patient and informed consent was obtained. Instrument: Olympus GIF H 190 mid size upper endoscope Monitoring: Vital signs and clinical assessment, continuous EKG monitoring, Pulse oximetry, Carbon Dioxide monitoring and blood pressure monitoring were done throughout the procedure. Procedure: The patient was placed in the left lateral decubitis position and pre-procedure medications were administered and a bite block was placed. The endoscope was inserted into the mouth and advanced under direct vision to the third part of duodenum. A careful inspection was made as the upper endoscope was withdrawn including a retroflexed examination of the proximal stomach; Findings and interventions are described below. Findings: Larynx: Normal Esophagus: Tortuous esophagus with increased tertiary contractions without stricture or ring. GE junction at 38 cms. A 1 cms tongue of possible Jackson's - biopsies were obtained. Esophageal balloon dilation was performed with a 20 mm (60 F) CRE balloon x 60 seconds. Stomach: Mild gastric erythema. Biopsies were obtained. Grade 2 flap valve on retroflexed examination of the cardia. Duodenum: Normal bulb and descending duodenum Intervention: Biopsies and esophageal balloon dilation as noted above COLONOSCOPY PROCEDURE NOTE Consent: Indications for the procedure and potential complications of bleeding, perforation, reaction to medications and missed diagnosis were discussed with the patient and informed consent was obtained. Instrument: Olympus PCF H 190 L variable stiffness pediatric colonoscope Monitoring: Vital signs and clinical assessment, intermittent blood pressure monitoring, continuous EKG monitoring, Pulse oximetry and Carbon Dioxide monitoring were done throughout the procedure. Colon withdrawl time was 20 minutes. Procedure: The patient was placed in the left lateral decubitis position and pre-procedure medications were administered. After a digital rectal examination of the ano-rectum, the video colonoscope was inserted into the rectum and advanced through the colon to the cecum. The colonoscope was slowly withdrawn in a retrograde panoramic fashion and the colon mucosa was carefully examined including a retroflexed view of the rectum. Findings and interventions are described below. Procedure Difficulty: : Without difficulty Findings: Terminal Ileum: Distal 5 cms was examined and appeared normal Cecum: Normal Ascending Colon: A 10-12 mm sessile polyp in the distal AC at 70 cms - removed with hot stiff snare. Scattered moderate diverticulosis throughout the entire colon Transverse Colon: Scattered moderate diverticulosis throughout the entire colon Descending Colon: Scattered moderate diverticulosis throughout the entire colon, left > right Sigmoid Colon: Severe diverticulosis, left > right Rectum: Normal Ano-rectum: Moderate internal hemorrhoids Colon preparation: Good after copious irrigation Impression and Post Procedure Diagnosis: Endoscopy Findings: ESOPHAGUS: Tortuous esophagus with increased tertiary contractions without stricture or ring. GE junction at 38 cms. A 1 cms tongue of possible Jackson's - biopsies were obtained. Esophageal balloon dilation was performed with a 20 mm (60 F) CRE balloon x 60 seconds. STOMACH: Mild gastritis Colonoscopy Findings: One medium sized polyp removed Random biopsies were obtained from right and left colon to check for microscopic colitis Moderate diverticulosis seen in the entire colon, left > right Moderate hemorrhoids on retroflexed exam. Plan: Await pathology results Patient has an appointment on 12/29/22 in the GI [facility] with Holland Bautista M.D. Repeat Colonoscopy interval based on path results - in 3 years if polyps are adenomatous and 10 years if polyps are hyperplastic. Above findings were reviewed with the patient and colon polyps and diverticulosis handouts were given in the discharge area
--- NOTE | 2022-10-18 14:17 | MHC.SHP ---
Pre-Procedural Eval Section A Date of Service: 10/18/22 The patient is an INPATIENT: No Changes since office visit: Yes Patient answered all questions; No Cold of Flu in the past 2 weeks, No New Medical Problems and No Changes in Medication The History & Physical has been completed within 30 days and I have reviewed it.: Yes Section B Chief Complaint: IBS,Personal hx of Colonic Polyps, GERD Allergies: Allergies Allergy/AdvReac Type Severity Reaction Status Date / Time oxycodone [Percocet] Allergy Intermediate Itching Verified 09/22/22 09:36 Vicodin Allergy Intermediate itching Uncoded 09/02/22 09:56 Plan I have reviewed the history and physical and performed a pertinent physical examination on my patient. No changes have occurred unless specified. Time Spent With Patient Time: Total time managing care of this patient today ____ minutes.
[2022-10-18 15:25] VITALS: BP 112/68; PULSE 70; RESP 16; TEMP 36.6; O2SAT 100
[2022-10-18 15:29] LABS: Glucose, Whole Blood 81 mg/dL (60-115)
[2022-10-18 15:40] VITALS: BP 117/73; PULSE 72; RESP 18; TEMP 37.2; O2SAT 97
== END 2022-10-18 15:49 | disposition home or self-care (01) ==
PROVIDERS: Nurse Practitioner; PCP Registered Nurse; Visit Provider Internal Medicine Gastroenterology
PROC: (CPT 45385; principal; 2022-10-18 13:30)
DX: Z12.11 Encounter for screening for malignant neoplasm of colon (principal); Z86.010 Personal history of colon polyps; D12.2 Benign neoplasm of ascending colon; K57.30 Diverticulosis of large intestine without perforation or abscess without bleeding; K64.8 Other hemorrhoids; K58.9 Irritable bowel syndrome, unspecified; K76.0 Fatty (change of) liver, not elsewhere classified; K74.60 Unspecified cirrhosis of liver; K21.9 Gastro-esophageal reflux disease without esophagitis; K22.2 Esophageal obstruction; R13.14 Dysphagia, pharyngoesophageal phase; M79.7 Fibromyalgia; E11.9 Type 2 diabetes mellitus without complications; J44.9 Chronic obstructive pulmonary disease, unspecified; Z79.51 Long term (current) use of inhaled steroids; Z79.85 Long-term (current) use of injectable non-insulin antidiabetic drugs; Z79.84 Long term (current) use of oral hypoglycemic drugs; Z79.899 Other long term (current) drug therapy; Z88.8 Allergy status to other drugs, medicaments and biological substances; Z87.891 Personal history of nicotine dependence
CPT/HCPCS: 45385; 45380; 43249; 43239; 36415; 80048; 82947; 88305; 94640; C1726

== ENCOUNTER → 2022-10-18 10:55 | Outpatient (BNV) | payer OTHER, SELFPAY | PROVIDERS: PCP Registered Nurse; Visit Provider Internal Medicine Gastroenterology | DX: Z12.11 Encounter for screening for malignant neoplasm of colon (principal); Z86.010 Personal history of colon polyps; D12.2 Benign neoplasm of ascending colon; K64.8 Other hemorrhoids; K57.30 Diverticulosis of large intestine without perforation or abscess without bleeding; R13.10 Dysphagia, unspecified; K21.9 Gastro-esophageal reflux disease without esophagitis | CPT/HCPCS: 43249; 45385 ==

== ENCOUNTER 2022-10-25 11:06 | Outpatient (REF) | payer OTHER, SELFPAY ==
[2022-10-25 13:17] LABS: MANUAL DIFF FLAG NO
[2022-10-25 13:26] LABS: Basophils Absolute Auto 0.1 X10*3/uL (0.0-0.2); Eosinophils Absolute Auto 0.1 X10*3/uL (0.0-0.4); Eosinophils Percent Auto 1.8 % (0-4); Hematocrit 40.1 % (37.0-47.0); Hemoglobin 12.4 g/dl (12.0-16.0); Imm Gran Abs Auto 0.08 X10*3/uL (0.00-0.03); Imm Gran Pct Auto 1.6 % (0.0-0.4); Lymphocytes Absolute Auto 1.7 X10*3/uL (1.2-4.9); Lymphocytes Percent Auto 34.5 % (20-40); Mean Corpuscular HGB Conc 30.9 g/dl (31.0-35.0); Mean Corpuscular Hemoglobin 28.7 pg (27.0-33.0); Mean Corpuscular Volume 92.8 fL (80.0-98.0); Monocytes Absolute Auto 0.5 X10*3/uL (0.1-1.2); Monocytes Percent Auto 9.6 % (2-11); Neutrophils Absolute Auto 2.6 x10*3/uL (2.0-8.3); Neutrophils Percent Auto 51.5 % (45-73); Platelet Count 230 X10*3/uL (160-400); Red Blood Count 4.32 X10*6/uL (4.20-5.50); Red Cell Distribution Width 15.8 % (11.0-16.0)
[2022-10-25 14:14] LABS: Cholesterol 146 mg/dL; HDL Cholesterol 39 mg/dL; Iron 108 mcg/dL (30-160); LDL Cholesterol Calculated 64 mg/dl; Percent Iron Saturation 23 % (15-50); TSH reflex Free T4 2.05 uIU/mL (0.32-4.0); Total Iron Binding Capacity 480 mcg/dL (228-428); Triglycerides 216 mg/dL; Unsaturated Iron Binding 372 ug/dL
[2022-10-25 14:52] LABS: Folate 12.9 ng/mL (> or = 4.0); Vitamin B12 549 pg/mL (200-900)
== END 2022-10-25 11:07 | disposition home or self-care (01) ==
LOC: HO.HHCL 11:06
PROVIDERS: Visit Provider Registered Nurse
DX: E11.22 Type 2 diabetes mellitus with diabetic chronic kidney disease (principal); N18.4 Chronic kidney disease, stage 4 (severe); R41.3 Other amnesia
CPT/HCPCS: 36415; 80061; 82607; 82746; 83540; 84443; 85025

== ENCOUNTER 2022-10-27 08:50 | Outpatient (REF) | payer OTHER, SELFPAY ==
--- NOTE | ~2022-10-27 | XR_ITS ---
STUDY: AP pelvis and right hip INDICATION: Right hip pain for 3 to 4 months COMPARISON: None TECHNIQUE: 2 AP views of the pelvis, AP and frog lateral right hip FINDINGS: Surgical hardware and degenerative type changes identified lower lumbar spine. SI joints within normal limits. Bony pelvis is intact. Mild symphysis pubis sclerosis. Bilateral moderate hip joint narrowings. No acute fracture or dislocation. Left hemipelvic phleboliths. XR/XR hip RT min 2V IMPRESSION: Bilateral hip degenerative type changes. Lower lumbar surgical hardware.
--- NOTE | ~2022-10-27 | XR_ITS ---
STUDY: AP pelvis and right hip INDICATION: Right hip pain for 3 to 4 months COMPARISON: None TECHNIQUE: 2 AP views of the pelvis, AP and frog lateral right hip FINDINGS: Surgical hardware and degenerative type changes identified lower lumbar spine. SI joints within normal limits. Bony pelvis is intact. Mild symphysis pubis sclerosis. Bilateral moderate hip joint narrowings. No acute fracture or dislocation. Left hemipelvic phleboliths. XR/XR pelvis 1-2V IMPRESSION: Bilateral hip degenerative type changes. Lower lumbar surgical hardware.
== END 2022-10-27 08:51 | disposition home or self-care (01) ==
LOC: HO.HHCX 08:50
PROVIDERS: Visit Provider Registered Nurse
DX: M25.551 Pain in right hip (principal)
CPT/HCPCS: 72170; 73502

== ENCOUNTER 2022-11-22 09:45 | Outpatient (REF) | payer OTHER, SELFPAY ==
--- NOTE | ~2022-11-22 | US_ITS ---
EXAMINATION: US ABDOMEN COMPLETE CLINICAL INFORMATION: Unspecified cirrhosis of liver. Patient has gained weight and is complaining of abdominal distention. Screening for hepatocellular carcinoma and ascites. Patient states that she had an intestinal procedure a year ago. COMPARISON: Ultrasound abdomen complete 01/11/2022 and 05/16/2019. X-ray abdomen KUB 11/26/2021. X-ray abdomen 11/25/2021. CT abdomen and pelvis 11/23/2021. TECHNIQUE: Real-time imaging of the abdominal viscera. Limited visualization due to bowel gas. FINDINGS: PANCREAS: Limited visualization. ABDOMINAL AORTA: The proximal, mid, and distal segments are normal in caliber. INFERIOR VENA CAVA: Visualized portions are normal. LIVER: Prominent left hepatic lobe and caudate lobe with heterogeneous hepatic echotexture and nodular hepatic contour compatible with stated history of cirrhosis. Hepatomegaly, 19.0 cm. GALLBLADDER: Surgically absent. COMMON BILE DUCT: Normal in caliber measuring 0.5 cm in diameter. RIGHT KIDNEY: Mild fullness right renal pelvis. No renal calculi. Limited visualization. The kidney measures 10.4 cm in maximum dimension. LEFT KIDNEY: No hydronephrosis. No renal calculi. Renal cortical thickness is normal. Limited visualization. The kidney measures 9.7 cm in maximum dimension. SPLEEN: Normal. The spleen measures 11.1 cm in maximum dimension. FREE FLUID: None. ADDITIONAL FINDINGS: Possible small amount of fluid versus prominent bowel adjacent to the gallbladder. US/US abdomen complete IMPRESSION: 1. Prominent left hepatic lobe and caudate lobe with heterogeneous hepatic echotexture and nodular hepatic contour compatible with stated history of cirrhosis. Hepatomegaly, 19.0 cm. 2. Mild fullness right renal pelvis. No renal calculi.
== END 2022-11-22 09:46 | disposition home or self-care (01) ==
LOC: HO.US 09:45
PROVIDERS: PCP Registered Nurse; Visit Provider Internal Medicine Gastroenterology
DX: K74.60 Unspecified cirrhosis of liver (principal); J44.9 Chronic obstructive pulmonary disease, unspecified; F17.210 Nicotine dependence, cigarettes, uncomplicated; G47.33 Obstructive sleep apnea (adult) (pediatric); R91.8 Other nonspecific abnormal finding of lung field; Z99.81 Dependence on supplemental oxygen
CPT/HCPCS: 76700; 99212

== ENCOUNTER 2022-11-22 10:53 | Outpatient (AMB) | payer OTHER, SELFPAY ==
--- NOTE | 2022-11-22 10:55 | A.OFFVIS_ITS ---
Intake Vital Signs 11/22/22 10:56 Height 5 ft 3 in Weight 197 lb 5.019 oz BMI 34.9 BP 90/60 Blood Pressure Location Lt brachial Position Sitting Pulse 79 Pulse Source Pulse Oximeter Pulse Oximetry (%) 96 Oxygen Delivery Method Room Air Intake Visit Reasons: Needs O2 recert - 6MW Allergies oxycodone [Percocet] Allergy (Intermediate, Verified 11/22/22 10:57) Itching Vicodin Allergy (Intermediate, Uncoded 09/02/22 09:56) itching HPI Needs O2 recert - 6MW HPI Details 62-year-old lady, recent 35+ pack-year smoker followed for supplemental oxygen 2 L continuous flow dependent COPD.? She continues to use Trelegy with reasonable control of her underlying dyspnea.? She does have an underlying diastolic dysfunction and is currently under cardiologic care.? She is complaining of an acute COPD exacerbation symptomatic with cough productive of green sputum. Patient also was hospitalized for pneumonia approximately 2 months prior. Her home sleep study did not show underlying obstructive sleep apnea, however she is interested in pursuing an in-lab study. [facility] Medical History Acute exacerbation of chronic obstructive airways disease Depression Diabetes mellitus Dysphagia, pharyngoesophageal phase Fibromyalgia Frequent falls GERD without esophagitis History of colon polyps Hx of hereditary disease IBS (irritable bowel syndrome) Steatohepatitis Urinary retention with incomplete bladder emptying Surgical History History of back surgery History of colonoscopy History of esophagogastroduodenoscopy (EGD) Hx of abdominal surgery Hx of cholecystectomy Hx of endoscopy Hx of tubal ligation S/p total knee replacement, bilateral Family History Father History of heart attack Hx of type 1 diabetes mellitus Mother Alive and well Social History Household Members: Spouse Housing: Apartment Do you presently have visiting nurse or other home services: Yes Alcohol intake: never Patient Tobacco Use Status: Former Tobacco user Quit Date: 12/02/2020 Tobacco use type: Cigarette Cigarette Packs Per Day: 0.5 Cigarettes Per Day: 10.0 Years Smoked: 25 yrs Advance Directives Date on File: 10/20/20 service: No Current occupational status: unemployed Review of Systems Const Reports daytime sleepiness, Denies excessive sweating, Denies fatigue, Denies fever(s), Reports lethargy, Denies malaise, Denies night sweats, Reports snoring and Denies weight loss Eyes Denies blurry vision and Denies itchy eyes ENT Denies nasal congestion, Denies post nasal drip, Denies sinus pain, Denies sinus pressure and Denies other ( Thrush) Card Denies chest pain, Denies pedal edema, Denies dyspnea, Denies orthopnea and Denies paroxysmal nocturnal dyspnea Resp Reports cough, Denies hemoptysis, Reports excessive phlegm production, Denies dyspnea, Reports snoring and Denies wheezing GI Denies abdominal pain and Denies heartburn Musc Denies myalgias, Denies arthralgias and Denies joint swelling Skin/Breast Denies rash Neuro Denies memory loss and Denies seizure-like activity Psych Denies abnormal sleep pattern, Denies anxiety and Denies memory loss Endo Denies excessive sweating, Denies fatigue and Denies heat intolerance Rocky/Lymph Denies easy bruising Aller/Immun Denies itchy eyes, Denies seasonal rhinorrhea and Denies wheezing Physical Exam Vital Signs: Last Vital Signs Pulse 79 11/22/22 10:56 BP 90/60 11/22/22 10:56 Pulse Ox 96 11/22/22 10:56 Oxygen Delivery Method Room Air 11/22/22 10:56 BMI result Body Mass Index 34.9 Const General: no acute distress and alert Nutritional Appearance: not obese Orientation/consciousness: Other orientation findings ( oriented) HEENT Head: Yes atraumatic Eyes General: appearance normal, both eyes and all related structures Sclerae: sclerae normal EOM: EOMs intact bilaterally Neck Neck: Yes supple Lymphatic: no lymphadenopathy noted Resp Effort & Inspection: normal respiratory effort and no use of accessory muscles Auscultation: clear to auscultation bilaterally Cardio Rate: regular rate Rhythm: regular rhythm Heart sounds: no gallops, no murmurs and no rubs Skin General skin exam: other ( warm) Extrem General: No clubbing, No cyanosis and No edema Assessment & Plan Assessment & Plan (1) COPD (chronic obstructive pulmonary disease): Code(s): J44.9 - Chronic obstructive pulmonary disease, unspecified Plan: Baseline controlled on Trelegy and albuterol MDI. Continue current regimen. Now with an acute bronchitic exacerbation, but no wheezing. Will treat with a course of levofloxacin. Will obtain full PFT. (2) NIURKA (obstructive sleep apnea): Code(s): G47.33 - Obstructive sleep apnea (adult) (pediatric) Plan: Previously with a diagnosis of obstructive sleep apnea, however a recent home sleep study unrevealing. Will pursue an in-lab study. (3) Pulmonary nodules: Code(s): R91.8 - Other nonspecific abnormal finding of lung field Plan: Will obtain CT chest for further evaluation. Orders: Orders CT chest wo IV con Today R91.8 - Other nonspecific abnormal finding of lung field PFT pulmonary function test Today J44.9 - Chronic obstructive pulmonary disease, unspecified RT PSG in-lab sleep study Today G47.33 - Obstructive sleep apnea (adult) (pediatric) Medications: New levofloxacin 750 mg PO DAILY 7 tabs 0RF 7 days Coding Level of Care Code Est Pt Level 4 (14998) Diagnoses COPD (chronic obstructive pulmonary disease) J44.9 NIURKA (obstructive sleep apnea) G47.33 Pulmonary nodules R91.8
[2022-11-22 10:56] VITALS: BP 90/60; PULSE 79; O2SAT 96; BMI 34.9
== END 2022-11-22 11:10 | disposition home or self-care (01) ==
PROVIDERS: PCP Registered Nurse; Visit Provider Internal Medicine Pulmonary Disease
DX: J44.9 Chronic obstructive pulmonary disease, unspecified (principal); G47.33 Obstructive sleep apnea (adult) (pediatric); R91.8 Other nonspecific abnormal finding of lung field
CPT/HCPCS: 99214

== ENCOUNTER 2022-11-28 10:51 | Outpatient (AMB) | payer OTHER, SELFPAY ==
--- NOTE | 2022-11-28 10:54 | A.OFFVIS_ITS ---
Intake Vital Signs 11/28/22 11:00 Height 5 ft 3 in Weight 193 lb BMI 34.2 BP 104/60 Blood Pressure Location Rt brachial Position Sitting Respiration 18 Pulse 80 Pulse Source Pulse Oximeter Pulse Oximetry (%) 95 Oxygen Delivery Method Room Air Intake Visit Reasons: Right Hip Pain Intake Note: patient comes in for initial visit was referred by PCP. Allergies oxycodone [Percocet] Allergy (Intermediate, Verified 11/28/22 10:59) Itching Vicodin Allergy (Intermediate, Uncoded 09/02/22 09:56) itching HPI HPI Comments History of Present Illness Details Sharri is very pleasant 62 years old female who presents today in my office with complains on pain in the right hip. She reports that she was suffering from mild pain in the hip for long period of time however in May 2022 her pain started to get significantly worse. She denies any inciting events for pain increase. She reports her pain severe enough and equal to 7/10. She reports that she cannot sleep more normally because of her pain cannot do activities of daily living cannot take care of herself and cannot function normally. She needs walker for ambulation but uses it not all the time. Cold application weather changes and movements aggravate her pain. Heat and cold application decrease her pain. The pain is most severe at night and this severe in the morning. In terms of tissue damage she reports her pain is jumping, flashing, stabbing, sharp, cutting, pinching, cramping, tugging, pulling, ranging, hot burning, searing, tingling, stinging, dull, aching, tiring, exhausting, sickening, fearful, frightful, punishing, killing, spreading, radiating, tight, tearing, cool, freezing. She received x-ray to evaluate her hip. She denies physical therapy chiropractic manipulation massage therapy to help her hip pain. She denies any injections. Her past medical history is very extensive. She has depression COPD type 2 diabetes anemia I aortic while sclerosis acute kidney injury history arthritis liver cirrhosis congestive heart failure a history dysphagia pharyngo esophageal phase fibromyalgia frequent falls hyperkalemia hyperlipidemia irritable bowel syndrome ischemic colitis lumbar radiculopathy obstructive sleep apnea pulmonary nodules sacroiliac joint dysfunction vascular insufficiency of intestine supplemental oxygen dependent steatohepatitis stage 3 chronic kidney disease Past surgical history significant for cervical fusion spine surgery and total knee arthroplasty. Social history she denies smoking cigarettes drinking alcohol or using recreational drugs. [facility] Medical History Acute exacerbation of chronic obstructive airways disease Depression Diabetes mellitus Dysphagia, pharyngoesophageal phase Fibromyalgia Frequent falls GERD without esophagitis History of colon polyps Hx of hereditary disease IBS (irritable bowel syndrome) Steatohepatitis Urinary retention with incomplete bladder emptying Surgical History History of back surgery History of colonoscopy History of esophagogastroduodenoscopy (EGD) Hx of abdominal surgery Hx of cholecystectomy Hx of endoscopy Hx of tubal ligation S/p total knee replacement, bilateral Family History Father History of heart attack Hx of type 1 diabetes mellitus Mother Alive and well Social History Household Members: Spouse Housing: Apartment Do you presently have visiting nurse or other home services: Yes Alcohol intake: never Patient Tobacco Use Status: Former Tobacco user Quit Date: 12/02/2020 Tobacco use type: Cigarette Cigarette Packs Per Day: 0.5 Cigarettes Per Day: 10.0 Years Smoked: 25 yrs Advance Directives Date on File: 10/20/20 service: No Current occupational status: unemployed Review of Systems Const All systems reviewed & are unremarkable except as noted in HPI and below ENT Reports Normal hearing present Neuro Reports Normal hearing present, Denies Abnormal speech present, Denies confusion and Denies Sensory deficit (Neuro) Psych Denies confusion Physical Exam Vital Signs: Last Vital Signs Pulse 80 11/28/22 11:00 Resp 18 11/28/22 11:00 BP 104/60 11/28/22 11:00 Pulse Ox 95 11/28/22 11:00 Oxygen Delivery Method Room Air 11/28/22 11:00 BMI result Body Mass Index 34.2 Const General: no acute distress; No confusion Nutritional Appearance: obese morbidly obese Orientation/consciousness: patient oriented x3 and No confusion Eyes General: appearance normal, both eyes and all related structures Pupils: Equal, round and reactive pupils present EOM: EOMs intact bilaterally Neck Neck: Yes full ROM Chest Chest palpation & inspection: normal inspection of the chest Resp Effort & Inspection: normal respiratory effort, able to speak in complete sentences, normal respiratory pattern, no audible wheezes and no cough Cardio Jugular venous distension: no JVD GI Inspection: Yes normal to inspection Neuro General: patient oriented x3, gait normal and No confusion Cranial nerves: Yes CN's II-XII intact bilaterally, Yes Equal, round and reactive pupils present, Yes Normal hearing present and Yes Ability to bilaterally elevate shoulders present Speech: No Abnormal speech present Gait exam (Neuro): Normal gait present Motor exam (neuro): 5/5 motor strength present throughout Sensory Exam: No Sensory deficit (Neuro) Extrem Other: Lateral and medial rotation of the right hip and right thigh result in pain in the projection of the right trochanter radiating to the groin. General: No pedal edema Psych Speech and movement: Normal speech and movement present Affect: normal affect Attitude: cooperative Thought process: Normal thought process present Thought content: Normal thought content present Insight: Good insight present (Psych) Judgement: Good judgement present (Psych) Results Reviewed Results Reviewed: AP pelvis and right hip INDICATION: Right hip pain for 3 to 4 months COMPARISON: None TECHNIQUE: 2 AP views of the pelvis, AP and frog lateral right hip FINDINGS: Surgical hardware and degenerative type changes identified lower lumbar spine. SI joints within normal limits. Bony pelvis is intact. Mild symphysis pubis sclerosis. Bilateral moderate hip joint narrowings. No acute fracture or dislocation. Left hemipelvic phleboliths. XR/XR hip RT min 2V IMPRESSION: Bilateral hip degenerative type changes. Lower lumbar surgical hardware. Assessment & Plan Assessment & Plan (1) Postlaminectomy syndrome: Code(s): M96.1 - Postlaminectomy syndrome, not elsewhere classified (2) Arthritis of right hip: Code(s): M16.11 - Unilateral primary osteoarthritis, right hip (3) Spinal stenosis at L4-L5 level: Code(s): M48.061 - Spinal stenosis, lumbar region without neurogenic claudication (4) Lumbar spondylosis: Code(s): M47.816 - Spondylosis without myelopathy or radiculopathy, lumbar region (5) Chronic pain syndrome: Code(s): G89.4 - Chronic pain syndrome Plan I will schedule this patient for right intra-articular hip steroid injection. She does not require sedation for the procedure. I will evaluate this patient after the procedure. Coding Level of Care Code New Pt Level 3 (10627) Diagnoses Postlaminectomy syndrome M96.1 Arthritis of right hip M16.11 Spinal stenosis at L4-L5 level M48.061 Lumbar spondylosis M47.816 Chronic pain syndrome G89.4
[2022-11-28 11:00] VITALS: BP 104/60; PULSE 80; RESP 18; O2SAT 95; BMI 34.2
== END 2022-11-28 11:38 | disposition home or self-care (01) ==
PROVIDERS: PCP Registered Nurse; Visit Provider Anesthesiology
DX: M96.1 Postlaminectomy syndrome, not elsewhere classified (principal); M16.11 Unilateral primary osteoarthritis, right hip; M48.061 Spinal stenosis, lumbar region without neurogenic claudication; M47.816 Spondylosis without myelopathy or radiculopathy, lumbar region; G89.4 Chronic pain syndrome
CPT/HCPCS: 99213

== ENCOUNTER → 2022-11-28 10:51 | Outpatient (BNVA) | payer OTHER, SELFPAY | PROVIDERS: PCP Registered Nurse; Visit Provider Anesthesiology ==

== ENCOUNTER 2022-12-13 06:09 | Outpatient (REF) | payer OTHER, SELFPAY ==
--- NOTE | ~2022-12-13 | FL_ITS ---
EXAMINATION: XR FLUOROSCOPY WITH IMAGES CLINICAL INFORMATION: Unilateral primary osteoarthritis, right hip. COMPARISON: None available. TECHNIQUE: Fluoroscopy Supervised By: Dr. Rashaun Bolanos. Fluoroscopy Time: 0.2 minutes. Cumulative Dose: 11.3 mGy. DAP: 1.50 Gycm2. Images: 2. FINDINGS: Images demonstrate needle placement over the right hip joint. FL/FL guidance in treatment room IMPRESSION: Fluoroscopy guidance for pain management procedure.
== END 2022-12-13 06:10 | disposition home or self-care (01) ==
LOC: CF 06:09
PROVIDERS: Visit Provider Anesthesiology
DX: M16.11 Unilateral primary osteoarthritis, right hip (principal); M96.1 Postlaminectomy syndrome, not elsewhere classified; M48.061 Spinal stenosis, lumbar region without neurogenic claudication; M47.816 Spondylosis without myelopathy or radiculopathy, lumbar region; G89.4 Chronic pain syndrome
CPT/HCPCS: 20611; J3301

== ENCOUNTER 2022-12-13 13:37 | Outpatient (AMB) | payer OTHER, SELFPAY ==
--- NOTE | 2022-12-13 13:46 | MHC.OFFVIS ---
Intake Vital Signs 12/13/22 14:31 12/13/22 14:32 Height 5 ft 3 in 5 ft 3 in Weight 193 lb 193 lb BMI 34.2 34.2 BP 136/90 H 130/82 Blood Pressure Location Lt brachial Rt brachial Position Sitting Sitting Respiration 18 18 Pulse 98 92 Pulse Source Pulse Oximeter Pulse Oximeter Pulse Oximetry (%) 95 98 Oxygen Delivery Method Room Air Room Air Comment pre-op post-op Intake Visit Reasons: Right Hip Steroid Inj/LOCAL Allergies oxycodone [Percocet] Allergy (Intermediate, Verified 12/13/22 14:34) Itching Vicodin Allergy (Intermediate, Uncoded 09/02/22 09:56) itching PFSH Medical History Acute exacerbation of chronic obstructive airways disease Depression Diabetes mellitus Dysphagia, pharyngoesophageal phase Fibromyalgia Frequent falls GERD without esophagitis History of colon polyps Hx of hereditary disease IBS (irritable bowel syndrome) Steatohepatitis Urinary retention with incomplete bladder emptying Surgical History History of back surgery History of colonoscopy History of esophagogastroduodenoscopy (EGD) Hx of abdominal surgery Hx of cholecystectomy Hx of endoscopy Hx of tubal ligation S/p total knee replacement, bilateral Family History Father History of heart attack Hx of type 1 diabetes mellitus Mother Alive and well Social History Household Members: Spouse Housing: Apartment Do you presently have visiting nurse or other home services: Yes Alcohol intake: never Patient Tobacco Use Status: Former Tobacco user Quit Date: 12/02/2020 Tobacco use type: Cigarette Cigarette Packs Per Day: 0.5 Cigarettes Per Day: 10.0 Years Smoked: 25 yrs Advance Directives Date on File: 10/20/20 service: No Current occupational status: unemployed Physical Exam Vital Signs: Last Vital Signs Pulse 92 12/13/22 14:32 Resp 18 12/13/22 14:32 BP 130/82 12/13/22 14:32 Pulse Ox 98 12/13/22 14:32 Oxygen Delivery Method Room Air 12/13/22 14:32 BMI result Body Mass Index 34.2 Assessment & Plan Assessment & Plan (1) Postlaminectomy syndrome: Code(s): M96.1 - Postlaminectomy syndrome, not elsewhere classified (2) Arthritis of right hip: Code(s): M16.11 - Unilateral primary osteoarthritis, right hip Plan: Right hip steroid injection. Informed consent was explained to the patient. All questions were explained and answered. The patient was taken inside of the operating room where she was positioned left lateral decubitus on operating table.. Time-out was performed delineating patient's name and date of , correct site, side, the nature of the procedure, patient's allergy, preoperative antibiotic if needed, need for VT prophylaxis.. All operating room staff was participating in OR time-out procedure. Right hip area of the patient was prepped with ChloraPrep and draped with sterile towels. C-arm was brought over the operating field and picture of left and right lateral views of the bilateral hip joints were delineated on the screen. The smaller joint silhouette was chosen as the target. Projection of the right trochanter to the skin was chosen as the initial needle insertion point. After that the skin and subcutaneous tissues was anesthetized with 2% lidocaine 2.5 mL. 22 gauge 5 in long needle was inserted through the skin and started to advance to the joint space under intermittent lateral and anterior posterior views.Greatly enlarged obese abdomen was partially obscuring proper view of the joint. Several calimations were made to achieve the proper images. When needle entered the capsule of the joint small amount of the contrast was injected delineating intra-articular space. After that treatment solution containing ropivacaine 0.5% and 40 mg of Kenalog was injected into the joint. The needle was withdrawn sterile dressing was applied.The patient tolerated procedure well (3) Spinal stenosis at L4-L5 level: Code(s): M48.061 - Spinal stenosis, lumbar region without neurogenic claudication (4) Lumbar spondylosis: Code(s): M47.816 - Spondylosis without myelopathy or radiculopathy, lumbar region (5) Chronic pain syndrome: Code(s): G89.4 - Chronic pain syndrome Plan I will schedule this patient for right intra-articular hip steroid injection. She does not require sedation for the procedure. I will evaluate this patient after the procedure. Orders: Orders FL guidance in treatment room Today M16.11 - Unilateral primary osteoarthritis, right hip Coding Level of Care Code Procedure Only Diagnoses Postlaminectomy syndrome M96.1 Arthritis of right hip M16.11 Spinal stenosis at L4-L5 level M48.061 Lumbar spondylosis M47.816 Chronic pain syndrome G89.4
[2022-12-13 14:31] VITALS: BP 136/90; PULSE 98; RESP 18; O2SAT 95; BMI 34.2
[2022-12-13 14:32] VITALS: BP 130/82; PULSE 92; RESP 18; O2SAT 98; BMI 34.2
== END 2022-12-13 14:17 | disposition home or self-care (01) ==
LOC: HO.PMCPRC 13:38
PROVIDERS: PCP Registered Nurse; Visit Provider Anesthesiology
DX: M96.1 Postlaminectomy syndrome, not elsewhere classified (principal); M16.11 Unilateral primary osteoarthritis, right hip; M48.061 Spinal stenosis, lumbar region without neurogenic claudication; M47.816 Spondylosis without myelopathy or radiculopathy, lumbar region; G89.4 Chronic pain syndrome
CPT/HCPCS: 20611

== ENCOUNTER 2022-12-22 07:14 | Outpatient (REF) | payer OTHER, SELFPAY ==
--- NOTE | ~2022-12-22 | CT_ITS ---
EXAMINATION: CT CHEST WITHOUT CONTRAST CLINICAL INFORMATION: Pulmonary nodules COMPARISON: 10/16/2020 TECHNIQUE: Multidetector volumetric CT imaging of the chest was done. Axial MIP volume rendering provided. Sagittal and coronal reformatted images were obtained. This CT examination was performed using dose optimization techniques as appropriate, variously including the following: *Automated exposure control *Adjustment of mA and/or kV according to patient size (this includes techniques or standardized protocols for targeted exams where dose is matched to indication/reason for exam; i.e. extremities or head) *Use of iterative reconstruction technique DLP: 819 mGy-cm FINDINGS: DATA ENTRY TECHNICIAN: Unremarkable LUNGS: Trachea and bronchi are patent. Mild paraseptal emphysematous changes. Mild mosaic attenuation and dependent atelectasis. MEDIASTINUM: Unremarkable thyroid. Mildly thickened esophagus. Stable 9 mm pretracheal lymph node. No pathologic lymphadenopathy. Nonenlarged heart. No pericardial effusion. Nonaneurysmal aorta with atherosclerotic calcifications. Nonenlarged pulmonary arteries. CORONARY ARTERY CALCIFICATION: Trace PLEURA: There is no pleural effusion. No pleural mass or thickening. AXILLA: No lymphadenopathy. UPPER ABDOMEN: Right hepatic calcification. Enlarged low density liver. Liver contour is lobulated. Status post cholecystectomy. OSSEOUS STRUCTURES: Interval appearance of mild T8 superior endplate compression deformity. CT/CT chest wo IV con IMPRESSION: Atelectasis, mild mosaic attenuation, question small airway disease. No acute intrathoracic pathology 4 suspicious lung nodules. Total resolution of pneumonia seen in 2020. Enlarged lobulated fatty liver, nodularity suggesting cirrhotic change. Fleischner guidelines were followed.
== END 2022-12-22 07:15 | disposition home or self-care (01) ==
LOC: HO.CT 07:14
PROVIDERS: PCP Registered Nurse; Visit Provider Internal Medicine Pulmonary Disease
DX: R91.8 Other nonspecific abnormal finding of lung field (principal)
CPT/HCPCS: 71250

== ENCOUNTER → 2022-12-25 22:30 | Outpatient (REF) | payer OTHER, SELFPAY | LOC: HO.SL 22:30 | PROVIDERS: PCP Registered Nurse; Visit Provider Internal Medicine Pulmonary Disease | DX: G47.33 Obstructive sleep apnea (adult) (pediatric) (principal) | CPT/HCPCS: 95810 ==

== ENCOUNTER → 2022-12-25 22:39 | Outpatient (BNV) | payer OTHER, SELFPAY | PROVIDERS: PCP Registered Nurse; Visit Provider Internal Medicine | DX: G47.33 Obstructive sleep apnea (adult) (pediatric) (principal) | CPT/HCPCS: 95810 ==

== ENCOUNTER 2022-12-29 08:31 | Outpatient (REF) | payer OTHER, SELFPAY ==
--- NOTE | ~2022-12-29 | MR_ITS ---
EXAMINATION: MR BRAIN WITHOUT CONTRAST CLINICAL INFORMATION: Impaired memory COMPARISON: The vocal spine MRI 05/03/2012 TECHNIQUE: MRI of the brain was obtained using routine sequences without contrast. FINDINGS: Some sequences are motion degraded. No acute infarct. No acute intracranial hemorrhage or extra-axial fluid collection. Age-appropriate global cerebral volume loss. No lobar predilection. Asymmetric slight prominence of the right temporal horn. The hippocampi are symmetric. Patchy T2 FLAIR hyperintense foci in the subcortical and periventricular white matter, nonspecific but presumably minimal chronic microangiopathy. No mass lesion, mass effect, or herniation pattern. Normal intracranial arterial and dural venous sinus flow voids. Partially empty sella. The orbits are grossly unremarkable. Trace scattered paranasal sinus mucosal disease. No mastoid effusion. Incompletely imaged postsurgical changes following interval C4-C5 ACDF with the inferior extent of the hardware excluded from [id number]. New prominent periplate osteophyte along the adjacent C3 anterior inferior endplate. Solid interbody arthrodesis at C4-C5 and solid osseous fusion of the left C5-C6 facet joint. Nonspecific bilateral parotid sialosis. MR/MR head/brain wo con IMPRESSION: No acute intracranial process. Mild age-appropriate global cerebral volume loss without lobar predilection. Symmetric appearance of the bilateral hippocampi without disproportionate atrophy. Partially empty sella.
== END 2022-12-29 08:32 | disposition home or self-care (01) ==
LOC: HO.MRI 08:31
PROVIDERS: PCP Registered Nurse; Visit Provider Registered Nurse
DX: R41.3 Other amnesia (principal)
CPT/HCPCS: 70551

== ENCOUNTER 2023-01-11 10:09 | Outpatient (AMB) | payer OTHER, SELFPAY ==
--- NOTE | 2023-01-11 10:12 | MHC.OFFVIS ---
Intake Vital Signs 01/11/23 10:15 Height 5 ft 3 in Weight 192 lb BMI 34.0 BP 108/62 Blood Pressure Location Rt brachial Position Sitting Respiration 16 Pulse 100 Pulse Source Pulse Oximeter Pulse Oximetry (%) 95 Oxygen Delivery Method Room Air Intake Visit Reasons: S/p R Hip Inj 12/13/22 Allergies oxycodone [Percocet] Allergy (Intermediate, Verified 01/11/23 10:16) Itching Vicodin Allergy (Intermediate, Uncoded 09/02/22 09:56) itching HPI HPI Comments History of Present Illness Details Sharri is back in my office after right hip joint injection with steroids. Although the procedure was somewhat difficult I eventually managed to place my needle inside her right hip joint. Steroids were injected. The patient reported no pain improvement whatsoever after the injection. She requests me to send her for orthopedic surgery consult. She wished to consider total hip replacement. I will refer her to Dr. Michelle. Prior: Complains on pain in the right hip. She reports that she was suffering from mild pain in the hip for long period of time however in May 2022 her pain started to get significantly worse. She denies any inciting events for pain increase. She reports her pain severe enough and equal to 7/10. She received x-ray to evaluate her hip. She denies physical therapy chiropractic manipulation massage therapy to help her hip pain. She denies any injections. Her past medical history is very extensive. She has depression COPD type 2 diabetes anemia I aortic while sclerosis acute kidney injury history arthritis liver cirrhosis congestive heart failure a history dysphagia pharyngo esophageal phase fibromyalgia frequent falls hyperkalemia hyperlipidemia irritable bowel syndrome ischemic colitis lumbar radiculopathy obstructive sleep apnea pulmonary nodules sacroiliac joint dysfunction vascular insufficiency of intestine supplemental oxygen dependent steatohepatitis stage 3 chronic kidney disease Past surgical history significant for cervical fusion spine surgery and total knee arthroplasty. [facility] Medical History (Updated 11/28/22 @ 17:39 by Rashaun Bolanos MD) Frequent falls Acute exacerbation of chronic obstructive airways disease Urinary retention with incomplete bladder emptying Steatohepatitis IBS (irritable bowel syndrome) History of colon polyps Dysphagia, pharyngoesophageal phase GERD without esophagitis Hx of hereditary disease Diabetes mellitus Depression Fibromyalgia Surgical History (Updated 12/20/22 @ 11:45 by Marina Jalloh) Hx of abdominal surgery History of back surgery History of esophagogastroduodenoscopy (EGD) S/p total knee replacement, bilateral Hx of tubal ligation Hx of cholecystectomy Hx of endoscopy History of colonoscopy Family History Father History of heart attack Hx of type 1 diabetes mellitus Mother Alive and well Social History Household Members: Spouse Housing: Apartment Do you presently have visiting nurse or other home services: Yes Alcohol intake: never Patient Tobacco Use Status: Former Tobacco user Quit Date: 12/02/2020 Tobacco use type: Cigarette Cigarette Packs Per Day: 0.5 Cigarettes Per Day: 10.0 Years Smoked: 25 yrs Advance Directives Date on File: 10/20/20 service: No Current occupational status: unemployed Review of Systems Const All systems reviewed & are unremarkable except as noted in HPI and below ENT Reports Normal hearing present Neuro Reports Normal hearing present, Denies Abnormal speech present, Denies confusion and Denies Sensory deficit (Neuro) Psych Denies confusion Physical Exam Vital Signs: Last Vital Signs Pulse 100 01/11/23 10:15 Resp 16 01/11/23 10:15 BP 108/62 01/11/23 10:15 Pulse Ox 95 01/11/23 10:15 Oxygen Delivery Method Room Air 01/11/23 10:15 BMI result Body Mass Index 34.0 Const General: no acute distress; No confusion Nutritional Appearance: obese morbidly obese Orientation/consciousness: patient oriented x3 and No confusion Eyes General: appearance normal, both eyes and all related structures Pupils: Equal, round and reactive pupils present EOM: EOMs intact bilaterally Neck Neck: Yes full ROM Chest Chest palpation & inspection: normal inspection of the chest Resp Effort & Inspection: normal respiratory effort, able to speak in complete sentences, normal respiratory pattern, no audible wheezes and no cough Cardio Jugular venous distension: no JVD GI Inspection: Yes normal to inspection Neuro General: patient oriented x3, gait normal and No confusion Cranial nerves: Yes CN's II-XII intact bilaterally, Yes Equal, round and reactive pupils present, Yes Normal hearing present and Yes Ability to bilaterally elevate shoulders present Speech: No Abnormal speech present Gait exam (Neuro): Normal gait present Motor exam (neuro): 5/5 motor strength present throughout Sensory Exam: No Sensory deficit (Neuro) Extrem Other: Lateral and medial rotation of the right hip and right thigh result in pain in the projection of the right trochanter radiating to the groin. General: No pedal edema Psych Speech and movement: Normal speech and movement present Affect: normal affect Attitude: cooperative Thought process: Normal thought process present Thought content: Normal thought content present Insight: Good insight present (Psych) Judgement: Good judgement present (Psych) Assessment & Plan Assessment & Plan (1) Postlaminectomy syndrome: Code(s): M96.1 - Postlaminectomy syndrome, not elsewhere classified (2) Arthritis of right hip: Code(s): M16.11 - Unilateral primary osteoarthritis, right hip (3) Spinal stenosis at L4-L5 level: Code(s): M48.061 - Spinal stenosis, lumbar region without neurogenic claudication (4) Lumbar spondylosis: Code(s): M47.816 - Spondylosis without myelopathy or radiculopathy, lumbar region (5) Chronic pain syndrome: Code(s): G89.4 - Chronic pain syndrome Plan Unfortunately intra-articular right hip steroid injection did not help her pain. Patient is interested in hip arthroplasty. I will refer her to Dr. Michelle. If surgeries contraindicated for the patient she may come back and we will discuss neuromodulation to treat her hip pain. Orders: Referrals Orthopedics Referral M16.11 - Unilateral primary osteoarthritis, right hip, M96.1 - Postlaminectomy syndrome, not elsewhere classified Coding Level of Care Code Est Pt Level 4 (13922) Diagnoses Postlaminectomy syndrome M96.1 Arthritis of right hip M16.11 Spinal stenosis at L4-L5 level M48.061 Lumbar spondylosis M47.816 Chronic pain syndrome G89.4
[2023-01-11 10:15] VITALS: BP 108/62; PULSE 100; RESP 16; O2SAT 95; BMI 34.0
== END 2023-01-11 11:32 | disposition home or self-care (01) ==
PROVIDERS: PCP Registered Nurse; Visit Provider Anesthesiology
DX: M96.1 Postlaminectomy syndrome, not elsewhere classified (principal); M16.11 Unilateral primary osteoarthritis, right hip; M48.061 Spinal stenosis, lumbar region without neurogenic claudication; M47.816 Spondylosis without myelopathy or radiculopathy, lumbar region; G89.4 Chronic pain syndrome
CPT/HCPCS: 99213

== ENCOUNTER → 2023-01-11 10:09 | Outpatient (BNVA) | payer OTHER, SELFPAY | PROVIDERS: PCP Registered Nurse; Visit Provider Anesthesiology | DX: M96.1 Postlaminectomy syndrome, not elsewhere classified (principal); M16.11 Unilateral primary osteoarthritis, right hip; M48.061 Spinal stenosis, lumbar region without neurogenic claudication; M47.816 Spondylosis without myelopathy or radiculopathy, lumbar region; G89.4 Chronic pain syndrome | CPT/HCPCS: 99212 ==

== ENCOUNTER 2023-01-19 13:07 | Outpatient (AMB) | payer OTHER, SELFPAY ==
[2023-01-19 13:09] VITALS: BP 98/62; PULSE 106; O2SAT 94; BMI 33.4
--- NOTE | 2023-01-19 13:09 | A.OFFVIS_ITS ---
Intake Vital Signs 01/19/23 13:09 Height 5 ft 3 in Weight 188 lb 7.924 oz BMI 33.4 BP 98/62 Blood Pressure Location Lt brachial Position Sitting Pulse 106 H Pulse Source Doppler Pulse Oximetry (%) 94 Oxygen Delivery Method Room Air Intake Visit Reasons: Needs O2 recert - 6MW Allergies oxycodone [Percocet] Allergy (Intermediate, Verified 01/19/23 13:13) Itching Vicodin Allergy (Intermediate, Uncoded 09/02/22 09:56) itching HPI Needs O2 recert - 6MW HPI Details 62-year-old lady, recent 35+ pack-year s júnior followed for supplemental oxygen 2 L continuous flow dependent COPD.? She continues to use Trelegy with reasonable control of her underlying dyspnea.? She does have an underlying diastolic dysfunction and is currently under cardiologic care.? After the last office visit patient had an in lab studies that does not show underlying obstructive sleep apnea. She denies recent exacerbations. 2D she needs O2 recertification. [facility] Medical History (Updated 11/28/22 @ 17:39 by Rashaun Bolanos MD) Frequent falls Acute exacerbation of chronic obstructive airways disease Urinary retention with incomplete bladder emptying Steatohepatitis IBS (irritable bowel syndrome) History of colon polyps Dysphagia, pharyngoesophageal phase GERD without esophagitis Hx of hereditary disease Diabetes mellitus Depression Fibromyalgia Surgical History (Updated 12/20/22 @ 11:45 by Marina Jalloh) Hx of abdominal surgery History of back surgery History of esophagogastroduodenoscopy (EGD) S/p total knee replacement, bilateral Hx of tubal ligation Hx of cholecystectomy Hx of endoscopy History of colonoscopy Family History Father History of heart attack Hx of type 1 diabetes mellitus Mother Alive and well Social History Household Members: Spouse Housing: Apartment Do you presently have visiting nurse or other home services: Yes Alcohol intake: never Patient Tobacco Use Status: Former Tobacco user Quit Date: 12/02/2020 Tobacco use type: Cigarette Cigarette Packs Per Day: 0.5 Cigarettes Per Day: 10.0 Years Smoked: 25 yrs Advance Directives Date on File: 10/20/20 service: No Current occupational status: unemployed Review of Systems Const Denies daytime sleepiness, Denies excessive sweating, Denies fatigue, Denies fever(s), Denies lethargy, Denies malaise, Denies night sweats, Denies snoring and Denies weight loss Eyes Denies blurry vision and Denies itchy eyes ENT Denies nasal congestion, Denies post nasal drip, Denies sinus pain, Denies sinus pressure and Denies other ( Thrush) Card Denies chest pain, Denies pedal edema, Denies dyspnea, Denies orthopnea and Denies paroxysmal nocturnal dyspnea Resp Denies cough, Denies hemoptysis, Denies excessive phlegm production, Denies dyspnea, Denies snoring and Denies wheezing GI Denies abdominal pain and Denies heartburn Musc Denies myalgias, Denies arthralgias and Denies joint swelling Skin/Breast Denies rash Neuro Denies memory loss and Denies seizure-like activity Psych Denies abnormal sleep pattern, Denies anxiety and Denies memory loss Endo Denies excessive sweating, Denies fatigue and Denies heat intolerance Rocky/Lymph Denies easy bruising Aller/Immun Denies itchy eyes, Denies seasonal rhinorrhea and Denies wheezing Physical Exam Vital Signs: Last Vital Signs Pulse 106 H 01/19/23 13:09 BP 98/62 01/19/23 13:09 Pulse Ox 94 01/19/23 13:09 Oxygen Delivery Method Room Air 01/19/23 13:09 BMI result Body Mass Index 33.4 Const General: no acute distress and alert Nutritional Appearance: not obese Orientation/consciousness: Other orientation findings ( oriented) HEENT Head: Yes atraumatic Eyes General: appearance normal, both eyes and all related structures Sclerae: sclerae normal EOM: EOMs intact bilaterally Neck Neck: Yes supple Lymphatic: no lymphadenopathy noted Resp Effort & Inspection: normal respiratory effort and no use of accessory muscles Auscultation: clear to auscultation bilaterally Cardio Rate: regular rate Rhythm: regular rhythm Heart sounds: no gallops, no murmurs and no rubs Skin General skin exam: other ( warm) Extrem General: No clubbing, No cyanosis and No edema Assessment & Plan Assessment & Plan (1) COPD (chronic obstructive pulmonary disease): Code(s): J44.9 - Chronic obstructive pulmonary disease, unspecified Plan: Well controlled current regimen of trilogy, duo nebs, and albuterol MDI. Continue current regimen. (2) Supplemental oxygen dependent: Code(s): Z99.81 - Dependence on supplemental oxygen Plan: In office supplemental oxygen evaluation/6 minute walk test performed. Patient continues to require supplemental oxygen at 2 L continuous flow with exertion. (3) NIURKA (obstructive sleep apnea): Code(s): G47.33 - Obstructive sleep apnea (adult) (pediatric) Plan: Results of in lab sleep study reviewed. No evidence of underlying obstructive sleep apnea at this time. Coding Level of Care Code Est Pt Level 4 (87607) Diagnoses COPD (chronic obstructive pulmonary disease) J44.9 Supplemental oxygen dependent Z99.81 NIURKA (obstructive sleep apnea) G47.33
== END 2023-01-19 13:40 | disposition home or self-care (01) ==
PROVIDERS: PCP Registered Nurse; Visit Provider Internal Medicine Pulmonary Disease
DX: J44.9 Chronic obstructive pulmonary disease, unspecified (principal); Z99.81 Dependence on supplemental oxygen; G47.33 Obstructive sleep apnea (adult) (pediatric)
CPT/HCPCS: 99214

== ENCOUNTER → 2023-01-19 13:07 | Outpatient (BNVA) | payer OTHER, SELFPAY | PROVIDERS: PCP Registered Nurse; Visit Provider Internal Medicine Pulmonary Disease | DX: J44.9 Chronic obstructive pulmonary disease, unspecified (principal); G47.33 Obstructive sleep apnea (adult) (pediatric); Z99.81 Dependence on supplemental oxygen | CPT/HCPCS: 99212 ==

== ENCOUNTER 2023-01-26 08:51 | Outpatient (AMB) | payer OTHER, SELFPAY ==
--- NOTE | 2023-01-26 08:55 | A.OFFVIS_ITS ---
Intake Vital Signs 01/26/23 08:56 Height 5 ft 3 in Weight 188 lb BMI 33.3 Intake Visit Reasons: [id number], right hip Intake Note: Sharri is a 62 year old female who presents today as a new patient for evaluation of her right hip. She had an injection done with Dr. Bolanos on the right hip on 12/13/22. This injection was not helpful and she is interested in discussing arthroplasty. Allergies oxycodone [Percocet] Allergy (Intermediate, Verified 01/19/23 13:13) Itching Vicodin Allergy (Intermediate, Uncoded 09/02/22 09:56) itching HPI OI-Vekyilh-monrfrchyvfrct, right hip HPI Details Sharri is a 62 year old Diabetic woman who presents to discuss treatment for her right hip OA. SHe underwent lumbar fusion with Dr Vivi rose years ago and is scheduled to see her again soon., SHe has numbness and tingling and weakness in her legs. She has pain in her lateral , anterior, posterior and medial pelvic girdle. She reports ZERO benefit with an intra-articular hip injection performed recently She has several comorbidities, including: Diabetes, COPD & supplemental oxygen use, Stage 3 CKD, CHF, and Fibromyalgia [facility] Medical History (Updated 01/26/23 @ 09:01 by Rory Ling) Frequent falls Acute exacerbation of chronic obstructive airways disease Urinary retention with incomplete bladder emptying Steatohepatitis IBS (irritable bowel syndrome) History of colon polyps Dysphagia, pharyngoesophageal phase GERD without esophagitis Hx of hereditary disease Diabetes mellitus Depression Fibromyalgia Surgical History Hx of abdominal surgery History of back surgery History of esophagogastroduodenoscopy (EGD) S/p total knee replacement, bilateral Hx of tubal ligation Hx of cholecystectomy Hx of endoscopy History of colonoscopy Family History Father History of heart attack Hx of type 1 diabetes mellitus Mother Alive and well Social History Household Members: Spouse Housing: Apartment Do you presently have visiting nurse or other home services: Yes Alcohol intake: never Patient Tobacco Use Status: Former Tobacco user Quit Date: 12/02/2020 Tobacco use type: Cigarette Cigarette Packs Per Day: 0.5 Cigarettes Per Day: 10.0 Years Smoked: 25 yrs Advance Directives Date on File: 10/20/20 service: No Current occupational status: unemployed Physical Exam Vital Signs: BMI result Body Mass Index 33.3 Extrem Other: minimal pain with FADIR + SLR Results Reviewed Results Reviewed: mild bilateral hip OA Assessment & Plan Assessment & Plan (1) Arthritis of right hip: Code(s): M16.11 - Unilateral primary osteoarthritis, right hip Plan: This is a 62 year old woman with mild right hip OA. She had absolutely no improvement or benefit from an intra-articular injection and given her range of motion and her history of lumbar fusion with instrumentation I do not feel her pain generator is her hip. I discussed this with her and she will see her spine surgeon. (2) Chronic pain syndrome: Code(s): G89.4 - Chronic pain syndrome (3) COPD (chronic obstructive pulmonary disease): Code(s): J44.9 - Chronic obstructive pulmonary disease, unspecified (4) Supplemental oxygen dependent: Code(s): Z99.81 - Dependence on supplemental oxygen (5) Fibromyalgia: Code(s): M79.7 - Fibromyalgia (6) Diabetes mellitus: Code(s): E11.9 - Type 2 diabetes mellitus without complications Coding Level of Care Code New Pt Level 4 (78827) Diagnoses Arthritis of right hip M16.11 Chronic pain syndrome G89.4 COPD (chronic obstructive pulmonary disease) J44.9 Supplemental oxygen dependent Z99.81 Fibromyalgia M79.7 Diabetes mellitus E11.9
[2023-01-26 08:56] VITALS: BMI 33.3
== END 2023-01-26 10:20 | disposition home or self-care (01) ==
PROVIDERS: PCP Registered Nurse; Visit Provider Orthopaedic Surgery
DX: M16.11 Unilateral primary osteoarthritis, right hip (principal); G89.4 Chronic pain syndrome; J44.9 Chronic obstructive pulmonary disease, unspecified; Z99.81 Dependence on supplemental oxygen; M79.7 Fibromyalgia; E11.9 Type 2 diabetes mellitus without complications
CPT/HCPCS: 99203

== ENCOUNTER → 2023-01-26 08:51 | Outpatient (BNVA) | payer OTHER, SELFPAY | PROVIDERS: PCP Registered Nurse; Visit Provider Orthopaedic Surgery | DX: M16.11 Unilateral primary osteoarthritis, right hip (principal); M79.7 Fibromyalgia; J44.9 Chronic obstructive pulmonary disease, unspecified; G89.4 Chronic pain syndrome; E11.9 Type 2 diabetes mellitus without complications; Z99.81 Dependence on supplemental oxygen | CPT/HCPCS: 99202 ==

== ENCOUNTER 2023-02-14 14:06 | Outpatient (REF) | payer OTHER, SELFPAY ==
--- NOTE | ~2023-02-14 | XR_ITS ---
EXAMINATION: XR CHEST 2 VIEW CLINICAL INFORMATION: COPD, cough COMPARISON: 11/23/2021 TECHNIQUE: PA and lateral views of the chest obtained. FINDINGS: The lungs are clear. There are no pleural effusions. The cardiomediastinal silhouette is normal. The aorta is uncoiled. Cervical spinal fusion changes are again noted. XR/XR chest 2V IMPRESSION: No acute cardiopulmonary disease.
== END 2023-02-14 14:07 | disposition home or self-care (01) ==
LOC: HO.HHCX 14:06
PROVIDERS: Visit Provider Internal Medicine
DX: J44.1 Chronic obstructive pulmonary disease with (acute) exacerbation (principal)
CPT/HCPCS: 71046

== ENCOUNTER 2023-02-14 14:22 | Outpatient (REF) | payer OTHER, SELFPAY ==
[2023-02-14 15:56] LABS: MANUAL DIFF FLAG NO
[2023-02-14 16:07] LABS: Basophils Absolute Auto 0.1 X10*3/uL (0.0-0.2); Basophils Percent Auto 1.2 % (0-2); Eosinophils Absolute Auto 0.2 X10*3/uL (0.0-0.4); Eosinophils Percent Auto 2.8 % (0-4); Hematocrit 45.3 % (37.0-47.0); Hemoglobin 14.1 g/dl (12.0-16.0); Imm Gran Pct Auto 1.2 % (0.0-0.4); Lymphocytes Percent Auto 35.8 % (20-40); Mean Corpuscular HGB Conc 31.1 g/dl (31.0-35.0); Mean Corpuscular Hemoglobin 28.7 pg (27.0-33.0); Mean Corpuscular Volume 92.3 fL (80.0-98.0); Mean Platelet Volume 9.9 fL (9.4-12.3); Monocytes Absolute Auto 0.7 X10*3/uL (0.1-1.2); Monocytes Percent Auto 8.6 % (2-11); Neutrophils Absolute Auto 4.3 x10*3/uL (2.0-8.3); Neutrophils Percent Auto 50.4 % (45-73); Platelet Count 316 X10*3/uL (160-400); Red Blood Count 4.91 X10*6/uL (4.20-5.50); Red Cell Distribution Width 16.4 % (11.0-16.0); White Blood Count 8.5 X10*3/uL (4.8-10.8)
[2023-02-14 16:50] LABS: Erythrocyte Sedimentation Rate 21 MM/HR (0-20)
== END 2023-02-14 14:23 | disposition home or self-care (01) ==
LOC: HO.HHCL 14:22
PROVIDERS: Visit Provider Internal Medicine
DX: J44.1 Chronic obstructive pulmonary disease with (acute) exacerbation (principal)
CPT/HCPCS: 36415; 85025; 85652

== ENCOUNTER 2023-03-16 12:34 | Outpatient (REF) | payer OTHER, SELFPAY ==
--- NOTE | 2023-03-16 12:39 | EEG_ITS ---
This is a 16-channel EEG with an EKG lead. The patient is reported awake and alert during the tracing. Background EEG rhythm is 7 to 8 hertz, 5 to 15 microvolt posteriorly and lower amplitude fast anteriorly. Photic stimulation does not produce any significant abnormality. Hyperventilation is not performed. Cardiac lead does not reveal any significant abnormality. No sharp wave spikes or paroxysmal tendency noted. IMPRESSION: No significant abnormality other than mild slowing noted on this EEG. MD JEAN Reyes/OSMANY / [id number]
== END 2023-03-16 12:35 | disposition home or self-care (01) ==
LOC: HO.NEURO 12:34
PROVIDERS: PCP Registered Nurse; Visit Provider Registered Nurse
DX: R56.9 Unspecified convulsions (principal); R41.82 Altered mental status, unspecified
CPT/HCPCS: 95816

== ENCOUNTER 2023-04-19 13:30 | Inpatient (IN) | payer OTHER, SELFPAY ==
--- NOTE | ~2023-04-19 | US_ITS ---
EXAMINATION: US PELVIS COMPLETE CLINICAL INFORMATION: Postmenopausal vaginal bleeding COMPARISON: None TECHNIQUE: Transabdominal and transvaginal imaging was performed. FINDINGS: The uterus is of normal size and echogenicity measuring 6.0 x 3.0 x 2.4 cm. A regular homogeneous endometrium is identified measuring 0.2 cm. Few coarse calcifications noted in the endocervical canal. A 1.1 cm subserosal posterior body myoma. A 5 cm coarse calcification in the posterior body of the uterus possibly a coarsely calcified myoma. The right ovary was not identified sonographically. The left measures 2.6 x 1.6 x 1.3 cm for a volume of 2.8 mL and is unremarkable in appearance. No adnexal mass. There is no pelvic free fluid. US/US pelvic and transvaginal IMPRESSION: 1. Endometrium measures 2 mm in thickness. 2. Few coarse calcifications noted in the endocervical canal. 3. A 1.1 cm subserosal myoma in the posterior body of the uterus. A 5 cm coarse calcification in the posterior body of the uterus possibly a coarsely calcified myoma. 4. The right ovary was not identified sonographically. The left ovary is unremarkable in appearance. No adnexal mass.
--- NOTE | ~2023-04-19 | CT_ITS ---
Examination: CT brain and CT cervical spine without contrast. Clinical indications: Confusion, recent falls. Hematuria, ELIZABET. COMPARISON: CT abdomen and pelvis without contrast 11/23/[address] brain 05/18/2019 TECHNIQUE: 5 mm thin axial and reformatted 2 mm thin sagittal and coronal images of brain were obtained. Subsequently axial 5 mm thin and reformatted 3 mm thin sagittal and coronal images of abdomen and pelvis were obtained. DLP [id number]. This CT examination was performed using dose optimization technique as appropriate, variously including the following: Automated exposure control Adjustment of MA and/or KV according to patient size(this includes techniques or standardized protocols for targeted exams where dose is matched to indication/reason for exam; extremities or head. Use of iterative reconstruction techniques. FINDINGS: Brain: There is no acute intra-axial, extra-axial bleed, masses or midline shift. No acute infarction in evolution or edema. The awad to white matter differentiation is maintained normal. Focal anterior dural calcification is present. Bone windows reveal no calvarial abnormality. There is no scalp soft tissue abnormality. Minimal mucoperiosteal thickening bilateral maxillary sinuses noted. Rest of the paranasal sinuses are clear. The mastoid sinuses are clear. Abdomen and pelvis: Lung bases: The lung bases are clear. Heart size is normal. Liver, ducts and gallbladder: The liver is normal size, contour and density. No focal lesion or intrahepatic ductal dilatation seen. The gallbladder has been surgically removed. Spleen: Unremarkable. Pancreas: Unremarkable. Adrenal glands: Unremarkable. Kidneys: Both kidneys are normal size, shape and position. No radiopaque renal calculi or hydronephrosis seen. No perinephric stranding seen. Lymphovascular structures: The abdominal aorta is of normal caliber.. No retroperitoneal abnormal size lymph nodes seen. Abdominal wall: There is a moderate size umbilical and supraumbilical hernia containing fat. GI tract: The stomach is unremarkable. There is small bowel loops are normal caliber. Suspect a moderate size diverticulum in second segment of the duodenum, similar to previous study 11/23/2021. Appendix is normal caliber There is scattered gas and diverticuli seen in colon with no evidence of mural thickening or pericolic fat stranding. There is no free air, free fluid or pneumatosis. Pelvis: The uterus is anteverted with a punctate calcification in body of the posterior wall. No adnexal mass or free fluid seen. There are several phleboliths. Osseous structures: There is L4-L5 posterior hardware for fusion there is cement augmentation of L2 vertebra for old compression fracture. There is an old T8 compression fracture with wedge deformity and sclerosis of the superior endplate CT/CT abdomen pelvis wo IV con IMPRESSION: No acute intracranial process seen. Colonic diverticulosis without diverticulitis. Suspect diverticulum in the second segment duodenum, unchanged to the last CT exam. No radiographic urolith or hydroureteronephrosis.
[2023-04-19 13:40] VITALS: BP 137/84; PULSE 71; RESP 20; TEMP 36.8; O2SAT 98; BMI 34.7
--- NOTE | 2023-04-19 13:42 | ED.GENADULT ---
HPI - General Adult General Chief complaint: Vaginal Bleeding Stated complaint: Vag Bleed X 2 Days Time Seen by Provider: 04/19/23 16:45 Source: patient and family Mode of arrival: ambulatory Limitations: no limitations History of Present Illness HPI narrative: Patient is a 62-year-old female who presents emergency department with her and daughter for evaluation. Initial triage assessment indicates vaginal bleeding for 2 days. When speaking with patient she insists at this time that it is rather urethral bleeding. She states that she notices it when she is urinating in the bathroom, she did express that she was wearing a pad and changing it throughout the day as she was noticing blood on it however there were no clots. At the time of my examination she has not wearing a pad and states she has not been wearing one since yesterday. No use of anticoagulants. She does also report dysuria. She denies abdominal pain, nausea, vomiting, back pain/flank pain. is at bedside and he expresses concern that she has also been confused, he states over the past 3 days she has intermittent episodes of significant confusion where she becomes very lethargic and does not know who she is or where she is, even provides a video to me on his phone where she does appear in this fashion. At this time she is alert and oriented x3, she does admit that she feels as though she is getting confused at times. states she has also fallen multiple times at at least 4 times over the past few days he denies any head strike or loss consciousness with these falls and he states that he hears them and she is assisted up right away has not had any prolonged down time. Related Data Home Medications Medication Instructions Recorded Confirmed fenofibrate micronized 134 mg 134 mg PO DAILY 01/21/20 04/19/23 capsule blood sugar diagnostic #10 ea 06/25/20 09/22/22 cholecalciferol (vitamin D3) 50 50 mcg PO DAILY 06/25/20 04/19/23 mcg (2,000 unit) capsule diclofenac sodium 1 % topical gel 2 g topical QID 06/25/20 04/19/23 mirtazapine 45 mg tablet 45 mg PO BEDTIME 06/25/20 04/19/23 atorvastatin 80 mg tablet 80 mg PO BEDTIME 10/17/20 04/19/23 duloxetine 60 mg capsule,delayed 1 cap PO BID 10/17/20 04/19/23 release empagliflozin 10 mg tablet 1 tab PO DAILY diabetes mellitus 01/06/21 04/19/23 (Jardiance) blood-glucose meter (FreeStyle #1 ea 03/02/21 09/22/22 Rowley Lite kit) inhalational spacing device #1 ea 03/02/21 09/22/22 (Compact Space Chamber) lancets 33 gauge (TRUEplus Lancets) #100 ea 03/02/21 09/22/22 vitamin E 100 unit capsule 1 cap PO DAILY 03/02/21 04/19/23 dulaglutide 1.5 mg/0.5 mL 1.5 mg subcut QWEEK diabetes 08/16/21 04/19/23 subcutaneous pen injector mellitus (Trulicity) lisinopril 10 mg tablet 10 mg PO DAILY 08/16/21 04/19/23 hydroxyzine pamoate 50 mg capsule 50 mg PO TID PRN Anxiety 05/05/22 04/19/23 bupropion HCl 150 mg 24 hr tablet, 150 mg PO QAM 04/19/23 04/19/23 extended release clonidine HCl 0.1 mg tablet 0.1 mg PO BID 04/19/23 04/19/23 quetiapine 100 mg tablet 100 mg PO BEDTIME 04/19/23 04/19/23 quetiapine 300 mg tablet 300 mg PO BEDTIME 04/19/23 04/19/23 tizanidine 2 mg tablet 2 mg PO DAILY 04/19/23 04/19/23 tizanidine 2 mg tablet 4 mg PO BEDTIME 04/19/23 04/19/23 Previous Rx's Medication Instructions Recorded albuterol sulfate 90 mcg/actuation 2 puff inhalation Q4-6H PRN 10/07/20 aerosol inhaler shortness of breath or wheezing #8.5 grams fluticasone fur. 200 mcg-umeclid 1 inh inhalation DAILY 30 days #1 01/19/21 62.5 mcg-vilant 25 mcg ea inhalat.powder (Trelegy Ellipta) acetaminophen 500 mg tablet 1,000 mg (2 x 500 mg) PO Q8H PRN 07/06/21 Pain #180 tabs methylcellulose (laxative) 500 mg 1,000 mg (2 x 500 mg) PO DAILY 30 02/11/22 tablet (Fiber Laxative days #60 tabs (methylcellulose)) linaclotide 145 mcg capsule 145 mcg PO QAM 30 days #30 caps 09/22/22 (Linzess) bethanechol chloride 50 mg tablet 50 mg PO BID 90 days #180 tabs 11/24/22 pregabalin 75 mg capsule 75 mg PO TID #90 caps 02/20/23 sennosides 8.6 mg tablet (senna) 17.2 mg (2 x 8.6 mg) PO BEDTIME 03/31/23 PRN constipation 30 days #60 tabs ferrous sulfate 325 mg (65 mg 325 mg PO DAILY 90 days #90 tabs 04/06/23 iron) tablet omeprazole 20 mg capsule,delayed 20 mg PO BID #60 caps 04/13/23 release Allergies Allergy/AdvReac Type Severity Reaction Status Date / Time oxycodone [Percocet] Allergy Intermediate Itching Verified 04/19/23 13:46 Vicodin Allergy Intermediate itching Uncoded 09/02/22 09:56 PMFSH Past Medical History Onset Date is defined in the Problem List Problems that require an onset date and time if occurred within 24 hrs of arrival to the ED Aortic Dissection and Rupture; Neurologic impairment; Cardiopulmonary Arrest; Endotracheal Intubation; Insertion or Replacement of Mechanical Circulatory Assist Device Medical History Frequent falls Acute exacerbation of chronic obstructive airways disease Urinary retention with incomplete bladder emptying Steatohepatitis IBS (irritable bowel syndrome) History of colon polyps Dysphagia, pharyngoesophageal phase GERD without esophagitis Hx of hereditary disease Diabetes mellitus Depression Fibromyalgia Surgical History Hx of abdominal surgery History of back surgery History of esophagogastroduodenoscopy (EGD) S/p total knee replacement, bilateral Hx of tubal ligation Hx of cholecystectomy Hx of endoscopy History of colonoscopy Family History Family History Father History of heart attack Hx of type 1 diabetes mellitus Mother Alive and well Social History Social History Household Members: Spouse Housing: Apartment Do you presently have visiting nurse or other home services: Yes Alcohol intake: former Patient Tobacco Use Status: Former Tobacco user Quit Date: 12/02/2020 Tobacco use type: Cigarette Cigarette Packs Per Day: 0.5 Cigarettes Per Day: 10.0 Years Smoked: 25 yrs Smoked in Last 30 Days: No Use of substances other than those prescribed or required for medical reasons: No Advance Directives: Yes Advance Directives on File: Yes Advance Directives Date on File: 10/20/20 Nutrition Risks: No Nutritional Risk Patient : No service: No Current occupational status: unemployed Physical Exam ED Vital Signs: Vital Signs - 24 hr 04/19/23 13:40 04/19/23 16:45 04/19/23 19:52 Temperature 98.2 F 98.2 F Pulse Rate 71 73 83 Respiratory Rate 20 13 16 Blood Pressure 137/84 124/60 108/73 Pulse Oximetry 98 96 97 Oxygen Delivery Method Room Air Room Air Room Air BMI result Body Mass Index 34.7 Course Course Course Narrative: RME:?62 yo female w/ pmhx of NIURKA, COPD, IBS, ischemic bowel, GERD, here with postemopausal vaginal bleeding x2 days. No clots. Using pads, changing them 2-3x day. LMP 10 yrs ago. not on AC. last saw examination proctor 1 yr ago. not sexually active. additionally endorses dysuria x4 days. denies fever, chills, vaginal d/c, abdominal pain/ flank pain. plan for labs, ua, US Full HPI, ROS and PE to be performed by the primary ED provider. Reevaluation(s) Reevaluation #1: EKG reveals normal sinus rhythm, no evidence of hyperkalemic changes; peaked Ts or short QT. urinalysis positive for nitrites and pyuria, will cover with Rocephin, no evidence of sepsis, would defer lactic acid/blood cultures. Time: 17:36 Reevaluation #2: See to the head reveals no acute intracranial abnormalities to suggest etiology for her intermittent confusion. CT of the abdomen and pelvis revealing diverticulosis without diverticulitis, no evidence of hydronephrosis, obstructive calculi, or perinephric stranding to suggest pyelonephritis. Admitted to hospitalist service. Time: 18:56 Medications Administered Generic Name Dose Route Start Last Admin Trade Name Freq PRN Reason Stop Dose Admin Acetaminophen 650 mg 04/19/23 20:25 04/19/23 21:33 Acetaminophen 325 Mg Tablet PO 650 mg Q6H PRN Administration Pain, Mild (Pain Scale 1-3) Insulin Human Lispro 0 unit 04/19/23 21:00 04/19/23 21:28 Insulin Lispro 100 Unit/Ml 3 Ml Vial SUBCUT Not Given QIDAS [facility] Protocol Mirtazapine 45 mg 04/19/23 21:50 04/19/23 22:56 Mirtazapine 15 Mg Tablet PO 45 mg BEDTIME KIMBERLY Administration Quetiapine Fumarate 100 mg 04/19/23 21:50 04/19/23 22:56 Quetiapine Fumarate 100 Mg Tablet PO 100 mg BEDTIME KIMBERLY Administration Quetiapine Fumarate 300 mg 04/19/23 21:45 04/19/23 22:57 Quetiapine Fumarate 300 Mg Tablet PO 300 mg BEDTIME KIMBERLY Administration Sodium Chloride 3 ml 04/20/23 00:00 04/19/23 23:03 0.9 % Sodium Chloride Flush 3 Ml Syringe IVFLUSH 3 ml QSHIFT [facility] Administration Discontinued Medications Generic Name Dose Route Start Last Admin Trade Name Freq PRN Reason Stop Dose Admin Dextrose 25 gm 04/19/23 17:10 04/19/23 18:02 Dextrose 50 % 25 Gm/50 Ml Syringe IVPUSH 04/19/23 17:11 25 gm ONCE ONE Administration Calcium Gluconate 2 gm in 100 mls @ 50 mls/hr 04/19/23 17:10 04/19/23 20:03 Calcium Gluconate IV 04/19/23 19:09 Infused ONCE ONE Infusion Ceftriaxone Sodium 1 gm/ 50 mls @ 100 mls/hr 04/19/23 17:34 04/19/23 20:45 Sodium Chloride IV 04/19/23 18:03 Infused ONCE ONE Infusion Sodium Chloride 1,000 mls @ 999 mls/hr 04/19/23 19:00 04/19/23 21:21 Ns IV 04/19/23 20:00 Infused .Q1H1M KIMBERLY Infusion Insulin Human Regular 5 unit 04/19/23 17:10 04/19/23 18:02 Insulin Regular, Human 100 Unit/Ml 3 Ml Vial IVPUSH 04/19/23 17:11 5 unit ONCE ONE Administration Sodium Zirconium Cyclosilicate 10 gm 04/19/23 17:10 04/19/23 18:03 Sodium Zirconium Cyclosilicate 10 Gm Powd.Pack PO 04/19/23 17:11 10 gm ONCE ONE Administration Medical Decision Making Medical Decision Making MDM Narrative: Patient is a 62-year-old female with past medical history of NIURKA, COPD, IBS, ischemic bowel, GERD, diabetes who presents to the emergency department for evaluation, initial reports of vaginal bleeding versus urethral bleeding. She declines a pelvic examination, she does however let me examine her external genitalia, there is a scant amount of blood at the urethral meatus, vaginal introitus is without any blood, normal external rectal examination. I reviewed labs obtained prior to my assumption of care. CBC is without leukocytosis or anemia or thrombocytopenia. CMP abnormality with hyperkalemia at 6.0 with normal mag, non acidotic, ELIZABET with BUN of 97 and creatinine 3.15. (she has had similar episode of ELIZABET in November 2021 at that time she was treated for an ischemic bowel and transferred to an acute care facility, however she has had normal renal function since then). Ultrasound pelvic was obtained which reveals fibroids in the normal endometrium. Plan at this time to obtain CT of the head to exclude ICH/SDH/intracranial mass/infarct given confusion, in addition will obtain CT of the abdomen and pelvis to evaluate for pyelonephritis, hydronephrosis, obstructive calculi. Plan to add on CPK. EKG is pending, patient to receive treatment for hyperkalemia; dextrose IV, insulin regular 5 units IV, calcium gluconate 2 g IV, Lokelma 10 g p.o. she will require hospital admission she and her family were made aware at this time. Differential Diagnosis Differential Diagnoses: The differential diagnosis associated with the presentation includes (As noted above) Admission/Observation Consideration of admission/observation: Escalation of care including admission/observation considered (As noted above) Consult Healthcare Provider Management of the patient was discussed with: Hospitalist (See course narrative) Lab Data [facility] Lab Attestation statement: I reviewed the patient's lab results. (See narrative above) 04/19/23 13:59 04/19/23 15:09 Labs: Lab Results 04/19/23 04/19/23 04/19/23 Range/Units 13:59 15:09 17:19 WBC 7.2 (4.8-10.8) X10*3/uL RBC 4.95 (4.20-5.50) X10*6/uL Hgb 14.2 (12.0-16.0) g/dl Hct 47.0 (37.0-47.0) % MCV 94.9 (80.0-98.0) fL MCH 28.7 (27.0-33.0) pg MCHC 30.2 L (31.0-35.0) g/dl RDW 14.6 (11.0-16.0) % Plt Count 272 (160-400) X10*3/uL MPV 10.7 (9.4-12.3) fL Immature Gran % (Auto) 0.8 H (0.0-0.4) % Neut % (Auto) 48.8 (45-73) % Lymph % (Auto) 37.5 (20-40) % [place] % (Auto) 10.4 (2-11) % Eos % (Auto) 1.5 (0-4) % Baso % (Auto) 1.0 (0-2) % Lymph # (Auto) 2.7 (1.2-4.9) X10*3/uL [place] # (Auto) 0.8 (0.1-1.2) X10*3/uL Eos # (Auto) 0.1 (0.0-0.4) X10*3/uL Baso # (Auto) 0.1 (0.0-0.2) X10*3/uL Abs Immat Gran (auto) 0.06 H (0.00-0.03) X10*3/uL Absolute Neuts (auto) 3.5 (2.0-8.3) x10*3/uL Absolute Nucleated RBC 0.020 H (0.0-0.012) X10*3/uL Nucleated RBC % (auto) 0.3 H (0.0-0.2) /100WBC Sodium 138 (135-145) mmol/L Potassium 6.0 H* (3.3-5.1) mmol/L Chloride 109 H (96-108) mmol/L Carbon Dioxide 19 L (22-29) mmol/L Anion Gap 16 (12-20) BUN 97 H (9-16) mg/dL Creatinine 3.15 H (0.5-1.4) mg/dL Estim Creat Clear Calc 19.0 Estimated GFR 15 Random Glucose 106 (60-115) mg/dL Calcium 10.8 H (8.4-10.2) mg/dL Magnesium 1.9 (1.6-2.6) mg/dL Total Creatine Kinase 81 (26-140) U/L Urine Color Yellow Urine Appearance Cloudy Urine pH 5.0 (5.0-9.0) Ur Specific [place] 1.020 (1.005-1.025) Urine Protein Trace (Neg-Trace) mg/dL Urine Glucose (UA) 250 H (Negative) mg/dL Urine Ketones Negative (Negative) mg/dL Urine Blood Trace H (Negative) Urine Nitrite Positive H (Negative) Ur Leukocyte Esterase Large (3+) H (Negative) Urine RBC 0-2 (0-2) /HPF Urine WBC 11-20 H (0-5) /HPF Ur Squamous Epith Cells 11-20 (0-2) /HPF Urine Bacteria 4+ (None Seen) Hyaline Casts >20 (0-2) /LPF Independent Interpretation I performed an independent interpretation of an: EKG, Ultrasound and CT Scan Interpretation: Rate: 67 Rhythm:? Normal sinus rhythm Spencer:? Normal Normal P waves.? Normal JESSICA.?? Normal QRS complex.?? ST T wave :??No ST elevation, no ST depression, T-wave inversion, no peaked Ts [id number] The study has been interpreted contemporaneously by me. Radiology Impression Discussion of test interpretation with radiology: I have reviewed the radiologist's reading. Radiologist Impression: US/US pelvic and transvaginal IMPRESSION: 1. Endometrium measures 2 mm in thickness. 2. Few coarse calcifications noted in the endocervical canal. 3. A 1.1 cm subserosal myoma in the posterior body of the uterus. A 5 cm coarse calcification in the posterior body of the uterus possibly a coarsely calcified myoma. 4. The right ovary was not identified sonographically. The left ovary is unremarkable in appearance. No adnexal mass. CT/CT head/brain wo IV con IMPRESSION: No acute intracranial process seen. Colonic diverticulosis without diverticulitis. Suspect diverticulum in the second segment duodenum, unchanged to the last CT exam. No radiographic urolith or hydroureteronephrosis. Independent Historian Clinical information obtained from an independent historian. History obtained from or confirmed by: Spouse (Present who confirms history) Critical Care Time Critical Care Time Critical Care Time: Yes Total Critical Care Time: 40 Attestation: I personally attest to this critical care time spent taking care of the patient exclusive of all other billable procedures was approximately 40 minutes including initial evaluation of patient, ordering tests, x-ray interpretation, EKG interpretation, medical consultation, documentation, re-evaluation. Discharge Plan Discharge Clinical Impression: Acute UTI, ELIZABET (acute kidney injury), Acute metabolic encephalopathy, Acute hyperkalemia Patient Disposition: Admitted As Inpatient
[2023-04-19 14:02] LABS: MANUAL DIFF FLAG NO
[2023-04-19 14:13] LABS: Basophils Absolute Auto 0.1 X10*3/uL (0.0-0.2); Eosinophils Absolute Auto 0.1 X10*3/uL (0.0-0.4); Eosinophils Percent Auto 1.5 % (0-4); Hemoglobin 14.2 g/dl (12.0-16.0); Imm Gran Abs Auto 0.06 X10*3/uL (0.00-0.03); Imm Gran Pct Auto 0.8 % (0.0-0.4); Lymphocytes Absolute Auto 2.7 X10*3/uL (1.2-4.9); Lymphocytes Percent Auto 37.5 % (20-40); Mean Corpuscular HGB Conc 30.2 g/dl (31.0-35.0); Mean Corpuscular Hemoglobin 28.7 pg (27.0-33.0); Mean Corpuscular Volume 94.9 fL (80.0-98.0); Mean Platelet Volume 10.7 fL (9.4-12.3); Monocytes Absolute Auto 0.8 X10*3/uL (0.1-1.2); Monocytes Percent Auto 10.4 % (2-11); NRBC Pct Auto 0.3 /100WBC (0.0-0.2); Neutrophils Absolute Auto 3.5 x10*3/uL (2.0-8.3); Neutrophils Percent Auto 48.8 % (45-73); Platelet Count 272 X10*3/uL (160-400); Red Blood Count 4.95 X10*6/uL (4.20-5.50); Red Cell Distribution Width 14.6 % (11.0-16.0); White Blood Count 7.2 X10*3/uL (4.8-10.8)
[2023-04-19 15:44] LABS: Anion Gap 16 (12-20); Blood Urea Nitrogen 97 mg/dL (9-16); Calcium 10.8 mg/dL (8.4-10.2); Carbon Dioxide 19 mmol/L (22-29); Chloride 109 mmol/L (96-108); Estimated Glomerular Filt Rate 15; Glucose Random 106 mg/dL (60-115); Magnesium 1.9 mg/dL (1.6-2.6); Sodium 138 mmol/L (135-145)
[2023-04-19 16:45] VITALS: BP 124/60; PULSE 73; RESP 13; O2SAT 96
--- NOTE | 2023-04-19 16:51 | ECG_ITS ---
Test Reason : hyperkalemia Blood Pressure : / mmHG Vent. Rate : 067 BPM Atrial Rate : 067 BPM P-R Int : 146 ms QRS Dur : 080 ms QT Int : 390 ms P-R-T Axes : 046 006 045 degrees QTc Int : 412 ms Normal sinus rhythm Normal ECG When compared with ECG of 23-NOV-2021 19:30, QT has shortened Referred By: Brittny Zayas Electronically Signed By:LISA JARRETT
[2023-04-19 17:26] LABS: Appearance Urine Cloudy; Color Urine Yellow; Glucose Urine UA 250 mg/dL (Negative); Leukocyte Esterase Urine Large (3+) (Negative); Nitrite Urine Positive (Negative); UMIC TRIGGER UACC YES; Urine Blood Trace (Negative); Urine Ketones Negative (Negative); Urine Protein Trace mg/dL (Neg-Trace)
[2023-04-19 17:34] LABS: Bacteria Urine 4+ (None Seen); Hyaline Casts Urine >20 /LPF (0-2); RBC Urine 0-2 /HPF (0-2); UACC Culture Trigger YES
[2023-04-19] MEDS: Insulin Regular, Human 100 UNIT/ML 3 ML VIAL IVPUSH (18:02)
[2023-04-19] MEDS: Dextrose 50 % 25 GM/50 ML SYRINGE IVPUSH (18:02)
[2023-04-19] MEDS: Calcium Gluconate/NaCl,Iso-Osm 2 GM/100 ML PLAST..BAG IV (18:03)
[2023-04-19] MEDS: Sodium Zirconium Cyclosilicate 10 GM POWD.PACK PO (18:03)
[2023-04-19 19:52] VITALS: BP 108/73; PULSE 83; RESP 16; TEMP 36.8; O2SAT 97
[2023-04-19] MEDS: cefTRIAXone sodium 1 GM in 0.9 % Sodium Chloride 50 ML IV (20:10)
[2023-04-19] MEDS: 0.9 % Sodium Chloride 1,000 ML 999 ML IV (20:11)
--- NOTE | 2023-04-19 20:26 | PM.IMHP ---
History of Present Illness Date of Service: 04/19/23 Chief Complaint: Confusion, dysuria This is a 62-year-old female with pertinent history of essential hypertension, mixed hyperlipidemia, lmt-zrzjtjr-yuhwdayki diabetes mellitus, urinary incontinence, mood disorder, gastroesophageal reflux disease, NIURKA not on CPAP, COPD not on home oxygen who presents to the emergency department for evaluation of confusion. Patient initially stated that there was concern for vaginal bleeding, but upon further assessment she thinks that it may have been urethral bleeding. who was present earlier stated that the was intermittently confused over the last 3 days. Patient states he has been having dysuria for the last 3 days. Also has been having intermittent fevers and chills. No history of UTI in the past. States she achieved menopause over 10 years ago. Admits nausea and poor p.o. intake. No vomiting, chest discomfort, palpitations, shortness of breath, abdominal pain, changes in bowel habits. Endorses generalized weakness and fatigability. In the emergency department, creatinine found to be elevated and urine concerning for UTI. Review of Systems Constitutional: Constitutional: Reports chills, Reports lethargy, Reports malaise, Reports poor appetite and Reports weakness Cardiovascular: Cardiovascular: Reports no additional cardiovascular complaints Respiratory: Respiratory: Reports no additional respiratory complaints Gastrointestinal: Gastrointestinal: Reports no additional gastrointestinal complaints Genitourinary: Genitourinary: Reports hematuria and Reports dysuria Neurologic: Reports weakness [facility] Medical History Frequent falls Acute exacerbation of chronic obstructive airways disease Urinary retention with incomplete bladder emptying Steatohepatitis IBS (irritable bowel syndrome) History of colon polyps Dysphagia, pharyngoesophageal phase GERD without esophagitis Hx of hereditary disease Diabetes mellitus Depression Fibromyalgia Family History Father History of heart attack Hx of type 1 diabetes mellitus Mother Alive and well Surgical History Hx of abdominal surgery History of back surgery History of esophagogastroduodenoscopy (EGD) S/p total knee replacement, bilateral Hx of tubal ligation Hx of cholecystectomy Hx of endoscopy History of colonoscopy Social History Household Members: Spouse Housing: Apartment Do you presently have visiting nurse or other home services: Yes Alcohol intake: former Patient Tobacco Use Status: Former Tobacco user Quit Date: 12/02/2020 Tobacco use type: Cigarette Cigarette Packs Per Day: 0.5 Cigarettes Per Day: 10.0 Years Smoked: 25 yrs Smoked in Last 30 Days: No Use of substances other than those prescribed or required for medical reasons: No Advance Directives: Yes Advance Directives on File: Yes Advance Directives Date on File: 10/20/20 Nutrition Risks: No Nutritional Risk Patient : No service: No Current occupational status: unemployed Meds Allergies Allergy/AdvReac Type Severity Reaction Status Date / Time oxycodone [Percocet] Allergy Intermediate Itching Verified 04/19/23 13:46 Vicodin Allergy Intermediate itching Uncoded 09/02/22 09:56 Home Medications Medication Instructions Recorded Confirmed Last Taken Type fenofibrate micronized 134 mg 134 mg PO DAILY 01/21/20 04/19/23 04/18/23 History capsule blood sugar diagnostic #10 ea 06/25/20 09/22/22 Unknown History cholecalciferol (vitamin D3) 50 50 mcg PO DAILY 06/25/20 04/19/23 04/18/23 History mcg (2,000 unit) capsule diclofenac sodium 1 % topical gel 2 g topical QID 06/25/20 04/19/23 04/18/23 History mirtazapine 45 mg tablet 45 mg PO BEDTIME 06/25/20 04/19/23 04/18/23 History atorvastatin 80 mg tablet 80 mg PO BEDTIME 10/17/20 04/19/23 04/18/23 History duloxetine 60 mg capsule,delayed 1 cap PO BID 10/17/20 04/19/23 04/18/23 History release empagliflozin 10 mg tablet 1 tab PO DAILY diabetes mellitus 01/06/21 04/19/23 04/18/23 History (Jardiance) blood-glucose meter (FreeStyle #1 ea 03/02/21 09/22/22 Unknown History [place] Lite kit) inhalational spacing device #1 ea 03/02/21 09/22/22 Unknown History (Compact Space Chamber) lancets 33 gauge (TRUEplus Lancets) #100 ea 03/02/21 09/22/22 Unknown History vitamin E 100 unit capsule 1 cap PO DAILY 03/02/21 04/19/23 04/18/23 History dulaglutide 1.5 mg/0.5 mL 1.5 mg subcut QWEEK diabetes 08/16/21 04/19/23 04/18/23 History subcutaneous pen injector mellitus (Trulicity) lisinopril 10 mg tablet 10 mg PO DAILY 08/16/21 04/19/23 04/18/23 History hydroxyzine pamoate 50 mg capsule 50 mg PO TID 05/05/22 04/19/23 04/18/23 History bupropion HCl 150 mg 24 hr tablet, 150 mg PO QAM 04/19/23 04/19/23 04/18/23 History extended release clonidine HCl 0.1 mg tablet 0.1 mg PO BID 04/19/23 04/19/23 04/18/23 History quetiapine 100 mg tablet 100 mg PO BEDTIME 04/19/23 04/19/23 04/18/23 History quetiapine 300 mg tablet 300 mg PO BEDTIME 04/19/23 04/19/23 04/18/23 History tizanidine 2 mg tablet 2 mg PO DAILY 04/19/23 04/19/23 04/18/23 History tizanidine 2 mg tablet 4 mg PO BEDTIME 04/19/23 04/19/23 04/18/23 History Physical Exam Vital Signs and Narrative: Vital Signs: Last Vital Signs Temp 98.2 F 04/19/23 19:52 Pulse 83 04/19/23 19:52 Resp 16 04/19/23 19:52 BP 108/73 04/19/23 19:52 Pulse Ox 97 04/19/23 19:52 O2 Del Method Room Air 04/19/23 19:52 BMI result Body Mass Index 34.7 Middle-aged female lying in bed in no distress Neck supple, no JVD Regular rate and rhythm, S1-S2 heard Regular breath sounds bilaterally, no wheezing or crackles appreciated Abdomen soft nontender, no guarding, no rigidity Patient is awake, alert and oriented to self, place, time and person ; no focal motor deficit Psych: Normal mood No pedal edema Results Labs 04/19/23 13:59 04/19/23 15:09 Labs: Laboratory Results - last 24 hr 04/19/23 04/19/23 04/19/23 13:59 15:09 17:19 MCV 94.9 MCH 28.7 MCHC 30.2 L RDW 14.6 Plt Count 272 MPV 10.7 Immature Gran % (Auto) 0.8 H Neut % (Auto) 48.8 Lymph % (Auto) 37.5 [place] % (Auto) 10.4 Eos % (Auto) 1.5 Baso % (Auto) 1.0 Lymph # (Auto) 2.7 [place] # (Auto) 0.8 Eos # (Auto) 0.1 Baso # (Auto) 0.1 Abs Immat Gran (auto) 0.06 H Absolute Neuts (auto) 3.5 Absolute Nucleated RBC 0.020 H Nucleated RBC % (auto) 0.3 H Anion Gap 16 Estim Creat Clear Calc 19.0 Estimated GFR 15 Random Glucose 106 Calcium 10.8 H Magnesium 1.9 Total Creatine Kinase 81 Urine Color Yellow Urine Appearance Cloudy Urine pH 5.0 Ur Specific [place] 1.020 Urine Protein Trace Urine Glucose (UA) 250 H Urine Ketones Negative Urine Blood Trace H Urine Nitrite Positive H Ur Leukocyte Esterase Large (3+) H Urine RBC 0-2 Urine WBC 11-20 H Ur Squamous Epith Cells 11-20 Urine Bacteria 4+ Hyaline Casts >20 Imaging Radiologist's Impressions: Impressions Pelvic/Transvag US 04/19/23 14:44 IMPRESSION: 1. Endometrium measures 2 mm in thickness. 2. Few coarse calcifications noted in the endocervical canal. 3. A 1.1 cm subserosal myoma in the posterior body of the uterus. A 5 cm coarse calcification in the posterior body of the uterus possibly a coarsely calcified myoma. 4. The right ovary was not identified sonographically. The left ovary is unremarkable in appearance. No adnexal mass. Abdomen/Pelvis CT 04/19/23 17:52 IMPRESSION: No acute intracranial process seen. Colonic diverticulosis without diverticulitis. Suspect diverticulum in the second segment duodenum, unchanged to the last CT exam. No radiographic urolith or hydroureteronephrosis. Head CT 04/19/23 17:52 IMPRESSION: No acute intracranial process seen. Colonic diverticulosis without diverticulitis. Suspect diverticulum in the second segment duodenum, unchanged to the last CT exam. No radiographic urolith or hydroureteronephrosis. Assessment and Plan (1) Acute metabolic encephalopathy: Status: Acute (2) Acute UTI: Status: Acute Plan This is a 62-year-old female with pertinent history of essential hypertension, mixed hyperlipidemia, bjf-hlklmhi-xamapjipd diabetes mellitus, urinary incontinence, mood disorder, gastroesophageal reflux disease, NIURKA not on CPAP, COPD not on home oxygen who presents to the emergency department for evaluation of confusion. #. Acute metabolic encephalopathy due to acute UTI: Will admit patient and initiate empiric IV antibiotics. No sepsis. Monitor mentation with IV antibiotics. Follow urine culture. #. Acute kidney injury, stage III: Follow urine electrolytes. Monitor creatinine, urine output and avoid nephrotoxins. #. Hyperkalemia due to above. Temporizing measures and lokelma given in the ER. #. Ert-swgmqiu-xmbuiurrg diabetes mellitus: Initiating Accu-Cheks with sliding scale insulin #. Mood disorder: Continue home mood stabilizers #. Essential hypertension: Hold lisinopril in the setting of ELIZABET #. Obesity: Counseled regarding diet and exercise #. COPD: No exacerbation during admission. Continue home inhaler DVT prophylaxis: Mechanical Full code Admit as inpatient and will require two night minimum hospital stay for IV antibiotics, monitoring of mentation, monitoring of kidney function (as above), which is not possible in a lesser acute setting. Quality Stroke Does the patient have a stroke diagnosis?: No VTE Prior VTE?: No VTE Risk Level:: Medical - moderate - high VTE Device Contraindication: N/A - Device Ordered VTE Drug Contraindication: Treatment Not Indicated
[2023-04-19] MEDS: Acetaminophen 325 MG TABLET 650 MG PO (21:33)
--- NOTE | 2023-04-19 21:49 | PHA.MEDREC ---
Pharmacy Consult ? Medication Reconciliation Pharmacy has completed the medication reconciliation. Patient confirmed medication through claim history. Patient says she is now taking 400mg Quetiapine. Nusrat Pérez CPhT
[2023-04-19 21:51] LABS: Glucose, Whole Blood 132 mg/dL (60-115)
--- NOTE | 2023-04-19 22:00 | PC.NURSE ---
This program writer assumed care of this Pt at 1900. Pt A&Ox3, unclear about the day, Pt reports 5/10 intermittent aching lower ABD pain also reports burning/pain with urination. Pt medicated per JUN.
[2023-04-19 22:24] VITALS: BP 130/68; PULSE 80; RESP 16; TEMP 36.9; O2SAT 96
--- NOTE | 2023-04-19 22:24 | MHC.EDTECH ---
This tech took over care of patient at 2215, hourly rounds and vitals completed, belonging list completed and copy placed in chart. Patient is resting at this time and call reyes in reach
[2023-04-19] MEDS: Mirtazapine 15 MG TABLET 45 MG PO (22:56)
[2023-04-19] MEDS: QUEtiapine Fumarate 100 MG TABLET PO (22:56)
[2023-04-19] MEDS: QUEtiapine Fumarate 300 MG TABLET PO (22:57)
[2023-04-19] MEDS: 0.9 % Sodium Chloride Flush 3 ML SYRINGE IVFLUSH (23:03)
--- NOTE | 2023-04-19 23:11 | PC.NURSE ---
Pt ambulated to the bathroom independently with steady gait.
[2023-04-20] VITALS: BP 131/72; PULSE 78; RESP 16; TEMP 36; O2SAT 96
--- NOTE | 2023-04-20 00:52 | PC.NURSE ---
Report complete, Pt will be transported to room 344, Pt aware of plan.
[2023-04-20 03:23] VITALS: BP 112/59; PULSE 73; RESP 16; TEMP 36.6; O2SAT 95
[2023-04-20 06:30] LABS: MANUAL DIFF FLAG NO
[2023-04-20 06:36] LABS: Basophils Absolute Auto 0.1 X10*3/uL (0.0-0.2); Basophils Percent Auto 1.2 % (0-2); Eosinophils Absolute Auto 0.1 X10*3/uL (0.0-0.4); Eosinophils Percent Auto 1.7 % (0-4); Hemoglobin 12.4 g/dl (12.0-16.0); Imm Gran Abs Auto 0.04 X10*3/uL (0.00-0.03); Imm Gran Pct Auto 0.7 % (0.0-0.4); Lymphocytes Absolute Auto 2.7 X10*3/uL (1.2-4.9); Lymphocytes Percent Auto 45.4 % (20-40); Mean Corpuscular Hemoglobin 29.6 pg (27.0-33.0); Mean Corpuscular Volume 95.5 fL (80.0-98.0); Mean Platelet Volume 11.2 fL (9.4-12.3); Monocytes Absolute Auto 0.6 X10*3/uL (0.1-1.2); Monocytes Percent Auto 9.3 % (2-11); Neutrophils Absolute Auto 2.5 x10*3/uL (2.0-8.3); Neutrophils Percent Auto 41.7 % (45-73); Platelet Count 196 X10*3/uL (160-400); Red Blood Count 4.19 X10*6/uL (4.20-5.50); Red Cell Distribution Width 14.5 % (11.0-16.0)
[2023-04-20 06:51] LABS: Anion Gap 14 (12-20); Blood Urea Nitrogen 73 mg/dL (9-16); Calcium 10.2 mg/dL (8.4-10.2); Carbon Dioxide 18 mmol/L (22-29); Chloride 116 mmol/L (96-108); Creatinine Clr Calc Pharmacy 34.5; Estimated Glomerular Filt Rate 30; Glucose Random 91 mg/dL (60-115); Potassium 5.3 mmol/L (3.3-5.1); Sodium 143 mmol/L (135-145)
[2023-04-20 07:07] VITALS: BP 125/60; PULSE 82; RESP 16; TEMP 35.7; O2SAT 96
[2023-04-20 07:18] LABS: Glucose, Whole Blood 90 mg/dL (60-115)
[2023-04-20] MEDS: Fluticasone/Umeclidinium/Vilanterol 200/62.5/25 BLST.W.DEV 1 PUFF INHALE (08:18)
[2023-04-20 08:20] VITALS: PULSE 80; RESP 16; O2SAT 99
--- NOTE | 2023-04-20 08:59 | MHC.CM.PN ---
IMM 04/20/23 Pt lives with family, she has HCP on file listing [facility], she said she wants to change this. CM will provide a new HCP form. Pt has [facility] hours through [facility], she said 12 hours a week during the day and 19 hours a week at night. She seemed a little confused about this. For medical equipment she has: a walker, w/c, shower chair, home 02 that she said she uses when she needs it on #2. She has used the [facility] in the past, she has not been to [facility]. Family will transport home. CM to follow and assist with DC planning.
--- NOTE | 2023-04-20 09:03 | P.PNIM_ITS ---
Subjective Subjective Date of Service: 04/20/23 <Micaela Whitehead - Last Filed: 04/20/23 09:21> 04/20/23 <Darrion Patterson MD - Last Filed: 04/20/23 11:15> Interval History: Feeling better today. No fevers, chills, dysuria, or noticeable urethral/vaginal bleeding. No CP, SOB, or palpitations. <Micaela Whitehead - Last Filed: 04/20/23 09:21> Review of Systems Review of Systems: Yes all other systems are reviewed and are negative <Micaela Whitehead - Last Filed: 04/20/23 09:21> Physical Exam 2 Vital Signs: Vital Signs: Last Vital Signs Temp 96.3 F L 04/20/23 07:07 Pulse 80 04/20/23 08:20 Resp 16 04/20/23 08:20 BP 125/60 04/20/23 07:07 Pulse Ox 96 04/20/23 07:07 O2 Del Method Room Air 04/20/23 07:07 BMI result Body Mass Index 34.7 <Micaela Whitehead - Last Filed: 04/20/23 09:21> General: A&Ox3, answering questions appropriately and in no acute distress CVS: Regular rate and rhythm, no murmurs. No peripheral edema. Pulm: Faint crackles in RLL. No rales, wheezes, rhonchi in all other lobes. GI/: Mild suprapubic pain with palpation, no CVA tenderness Neuro: no gross defect Psych: appropriate affect <Micaela Whitehead - Last Filed: 04/20/23 09:21> Objective Data Active Medications Acetaminophen (Acetaminophen 325 Mg Tablet) 650 mg PO Q6H PRN PRN Reason: Pain, Mild (Pain Scale 1-3) Last Admin: 04/19/23 21:33 Dose: 650 mg Documented By: VINAYAK Albuterol Sulfate (Albuterol Sulfate 90 Mcg 8 Gm Inhaler) 2 puff INHALE Q4H PRN PRN Reason: shortness of breath or wheezing Atorvastatin Calcium (Atorvastatin Calcium 80 Mg Tablet) 80 mg PO BEDTIME KIMBERLY Bupropion HCl (Bupropion Hcl Xl 150 Mg Tab.Er.24h) 150 mg PO DAILY KIMBERLY Clonidine HCl (Clonidine Hcl 0.1 Mg Tablet) 0.1 mg PO BID [facility]; Protocol Dextrose (Dextrose 50 % 25 Gm/50 Ml Syringe) 25 gm IVPUSH Q15M PRN; Protocol PRN Reason: per Hypoglycemia Standing Ord. Duloxetine HCl (Duloxetine Hcl 60 Mg Capsule.) 60 mg PO BID [facility] Empagliflozin (Empagliflozin 10 Mg Tablet) 10 mg PO DAILY [facility] Fenofibrate (Fenofibrate,Micronized 134 Mg Capsule) 134 mg PO DAILY [facility] Ferrous Sulfate (Ferrous Sulfate 324 Mg Tablet.) 324 mg PO DAILY [facility] Fluticasone/Umeclidinium/Vilanterol (Fluticasone/Umeclidinium/Vilanterol 200/62.5/25 Blst.W.Dev) 1 puff INHALE RDAILY [facility] Last Admin: 04/20/23 08:18 Dose: 1 puff Documented By: NABIL Glucose (Glucose Gel 15 Gm Gel..Gram.) 15 gm PO Q15M PRN; Protocol PRN Reason: per Hypoglycemia Standing Ord. Hydroxyzine HCl (Hydroxyzine Hcl 50 Mg Tablet) 50 mg PO TID PRN PRN Reason: Anxiety Ceftriaxone Sodium 1 gm/ (Sodium Chloride) 50 mls @ 100 mls/hr IV Q24H [facility] Insulin Human Lispro (Insulin Lispro 100 Unit/Ml 3 Ml Vial) 0 unit SUBCUT QIDACHS [facility]; Protocol Last Admin: 04/20/23 07:47 Dose: Not Given Documented By: BROMartha Non-Admin Reason: No Insulin Coverage Melatonin (Melatonin 3 Mg Tablet) 6 mg PO BEDTIME PRN PRN Reason: Insomnia Mirtazapine (Mirtazapine 15 Mg Tablet) 45 mg PO BEDTIME [facility] Last Admin: 04/19/23 22:56 Dose: 45 mg Documented By: SERRANX Non-Formulary Medication (Bethanechol Chloride) 50 mg PO BID [facility] Non-Formulary Medication (Linaclotide [Linzess]) 145 mcg PO DAILY [facility] Omeprazole (Omeprazole 20 Mg Capsule.) 20 mg PO BID [facility] Ondansetron HCl (Ondansetron Hcl 4 Mg/2 Ml Vial) 4 mg IVPUSH Q8H PRN PRN Reason: Nausea and Vomiting Quetiapine Fumarate (Quetiapine Fumarate 100 Mg Tablet) 100 mg PO BEDTIME [facility] Last Admin: 04/19/23 22:56 Dose: 100 mg Documented By: VINAYAK Quetiapine Fumarate (Quetiapine Fumarate 300 Mg Tablet) 300 mg PO BEDTIME [facility] Last Admin: 04/19/23 22:57 Dose: 300 mg Documented By: VINAYAK Senna (Sennosides 8.6 Mg Tablet) 17.2 mg PO BEDTIME PRN PRN Reason: constipation Sodium Chloride (0.9 % Sodium Chloride Flush 3 Ml Syringe) 3 ml IVFLUSH QSHIFT [facility] Last Admin: 04/19/23 23:03 Dose: 3 ml Documented By: VINAYAK Tizanidine HCl (Tizanidine Hcl 4 Mg Tablet) 2 mg PO DAILY [facility] Tizanidine HCl (Tizanidine Hcl 4 Mg Tablet) 4 mg PO BEDTIME [facility] Vitamin D (Cholecalciferol (Vitamin D3) 25 Mcg Tablet) 50 mcg PO DAILY [facility] Vitamin E (Vitamin E (Dl,Tocopheryl Acet) 180 Mg (400 Unit) Capsule) 180 mg PO DAILY [facility] <Micaela Whitehead - Last Filed: 04/20/23 09:21> Labs CBC & Chem 7: 04/20/23 05:27 04/20/23 05:27 <Micaela Whitehead - Last Filed: 04/20/23 09:21> Labs: Laboratory Results - last 24 hr 04/19/23 04/19/23 04/19/23 13:59 15:09 17:19 MCV 94.9 MCH 28.7 MCHC 30.2 L RDW 14.6 Plt Count 272 MPV 10.7 Immature Gran % (Auto) 0.8 H Neut % (Auto) 48.8 Lymph % (Auto) 37.5 [place] % (Auto) 10.4 Eos % (Auto) 1.5 Baso % (Auto) 1.0 Lymph # (Auto) 2.7 [place] # (Auto) 0.8 Eos # (Auto) 0.1 Baso # (Auto) 0.1 Abs Immat Gran (auto) 0.06 H Absolute Neuts (auto) 3.5 Absolute Nucleated RBC 0.020 H Nucleated RBC % (auto) 0.3 H Anion Gap 16 Estim Creat Clear Calc 19.0 Estimated GFR 15 POC Glucose Random Glucose 106 Calcium 10.8 H Magnesium 1.9 Total Creatine Kinase 81 Urine Color Yellow Urine Appearance Cloudy Urine pH 5.0 Ur Specific [place] 1.020 Urine Protein Trace Urine Glucose (UA) 250 H Urine Ketones Negative Urine Blood Trace H Urine Nitrite Positive H Ur Leukocyte Esterase Large (3+) H Urine RBC 0-2 Urine WBC 11-20 H Ur Squamous Epith Cells 11-20 Urine Bacteria 4+ Hyaline Casts >20 Ur Random Sodium Urine Creatinine 04/19/23 04/19/23 04/20/23 21:26 21:28 05:27 MCV 95.5 MCH 29.6 MCHC 31.0 RDW 14.5 Plt Count 196 D MPV 11.2 Immature Gran % (Auto) 0.7 H Neut % (Auto) 41.7 L Lymph % (Auto) 45.4 H [place] % (Auto) 9.3 Eos % (Auto) 1.7 Baso % (Auto) 1.2 Lymph # (Auto) 2.7 [place] # (Auto) 0.6 Eos # (Auto) 0.1 Baso # (Auto) 0.1 Abs Immat Gran (auto) 0.04 H Absolute Neuts (auto) 2.5 Absolute Nucleated RBC 0.000 Nucleated RBC % (auto) 0.0 Anion Gap 14 Estim Creat Clear Calc 34.5 Estimated GFR 30 POC Glucose 132 H Random Glucose 91 Calcium 10.2 Magnesium Total Creatine Kinase Urine Color Urine Appearance Urine pH Ur Specific [place] Urine Protein Urine Glucose (UA) Urine Ketones Urine Blood Urine Nitrite Ur Leukocyte Esterase Urine RBC Urine WBC Ur Squamous Epith Cells Urine Bacteria Hyaline Casts Ur Random Sodium 54.0 Urine Creatinine 76.90 04/20/23 07:06 MCV MCH MCHC RDW Plt Count MPV Immature Gran % (Auto) Neut % (Auto) Lymph % (Auto) [place] % (Auto) Eos % (Auto) Baso % (Auto) Lymph # (Auto) [place] # (Auto) Eos # (Auto) Baso # (Auto) Abs Immat Gran (auto) Absolute Neuts (auto) Absolute Nucleated RBC Nucleated RBC % (auto) Anion Gap Estim Creat Clear Calc Estimated GFR POC Glucose 90 Random Glucose Calcium Magnesium Total Creatine Kinase Urine Color Urine Appearance Urine pH Ur Specific [place] Urine Protein Urine Glucose (UA) Urine Ketones Urine Blood Urine Nitrite Ur Leukocyte Esterase Urine RBC Urine WBC Ur Squamous Epith Cells Urine Bacteria Hyaline Casts Ur Random Sodium Urine Creatinine <Micaela Dion Whitehead - Last Filed: 04/20/23 09:21> Assessment and Plan (1) Acute hyperkalemia: Status: Acute <Micaela Whitehead - Last Filed: 04/20/23 09:21> (2) Acute UTI: Status: Acute <Micaela Whitehead - Last Filed: 04/20/23 09:21> (3) Acute metabolic encephalopathy: Status: Acute <Micaela Whitehead - Last Filed: 04/20/23 09:21> Assessment and Plan: 62-year-old female with pertinent history of HTN, HLD, DM, urinary incontinence, mood disorder, GERD, NIURKA not on CPAP, COPD not on home oxygen admitted for metabolic encephalopathy secondary to acute UTI. Acute metabolic encephalopathy due to acute UTI: - WBC normal, afebrile, normal mentation today. - Urine culture pending. - Continue ceftriaxone Acute kidney injury, stage III: - Cr 1.74 (previous 3.15) and eGFR 30 (previous 15) - No urine output; continue to monitor Hyperkalemia due to above: - K+ 5.3 (previous 6) - Repeat BMP in AM - Hold lisinopril [id number] diabetes mellitus - Diabetic diet and SSI - Continue Jardiance? Mood disorder: - Continue home mood stabilizers Essential hypertension: - Hold lisinopril and monitor BP (125/60 today) COPD: - Continue home inhalers DVT prophylaxis: Mechanical Full code Need for inpatient: IV antibiotics and renal monitoring which cannot be performed in outpatient setting. <Micaela Whitehead - Last Filed: 04/20/23 09:21> Quality Stroke Does the patient have a stroke diagnosis?: No <Micaela Whitehead - Last Filed: 04/20/23 09:21> VTE Prior VTE?: No <Micaela Whitehead - Last Filed: 04/20/23 09:21> VTE Risk Level:: Medical - moderate - high <Micaela Whitehead - Last Filed: 04/20/23 09:21> VTE Device Contraindication: N/A - Device Ordered <Micaela Whitehead - Last Filed: 04/20/23 09:21> VTE Drug Contraindication: Treatment Not Indicated <Micaela Whitehead - Last Filed: 04/20/23 09:21>
[2023-04-20] MEDS: DULoxetine HCl 60 MG CAPSULE.DR PO ×2 (09:38→20:29)
[2023-04-20] MEDS: TiZANidine HCL 4 MG TABLET 2 MG PO (09:38)
[2023-04-20] MEDS: Omeprazole 20 MG CAPSULE.DR PO ×2 (09:38→20:28)
[2023-04-20] MEDS: buPROPion HCl XL 150 MG TAB.ER.24H PO (09:38)
[2023-04-20] MEDS: Vitamin E (Dl,Tocopheryl Acet) 180 MG (400 UNIT) CAPSULE PO (09:38)
[2023-04-20] MEDS: Cholecalciferol (Vitamin D3) 25 MCG TABLET 50 MCG PO (09:38)
[2023-04-20] MEDS: Empagliflozin 10 MG TABLET PO (09:39)
[2023-04-20] MEDS: Ferrous Sulfate 324 MG TABLET.DR PO (09:39)
[2023-04-20] MEDS: cloNIDine HCL 0.1 MG TABLET PO ×2 (09:39→20:28)
[2023-04-20] MEDS: 0.9 % Sodium Chloride Flush 3 ML SYRINGE IVFLUSH ×2 (09:42→15:25)
[2023-04-20 11:05] LABS: Glucose, Whole Blood 141 mg/dL (60-115)
[2023-04-20 13:45] VITALS: BMI 34.4
[2023-04-20 15:02] VITALS: BP 132/72; PULSE 84; RESP 18; TEMP 36.7; O2SAT 95
[2023-04-20 16:59] LABS: Glucose, Whole Blood 110 mg/dL (60-115)
[2023-04-20 19:06] VITALS: BP 117/64; PULSE 87; RESP 18; TEMP 36.6; O2SAT 95
[2023-04-20 19:56] LABS: Glucose, Whole Blood 133 mg/dL (60-115)
[2023-04-20] MEDS: cefTRIAXone sodium 1 GM in 0.9 % Sodium Chloride 50 ML IV (20:27)
[2023-04-20] MEDS: QUEtiapine Fumarate 300 MG TABLET PO (20:28)
[2023-04-20] MEDS: TiZANidine HCL 4 MG TABLET PO (20:28)
[2023-04-20] MEDS: Atorvastatin Calcium 80 MG TABLET PO (20:28)
[2023-04-20] MEDS: QUEtiapine Fumarate 100 MG TABLET PO (20:28)
[2023-04-20] MEDS: Mirtazapine 15 MG TABLET 45 MG PO (20:28)
[2023-04-21] MEDS: 0.9 % Sodium Chloride Flush 3 ML SYRINGE IVFLUSH ×2 (00:45→08:33)
[2023-04-21 03:42] VITALS: BP 96/55; PULSE 88; RESP 16; TEMP 36.5; O2SAT 93
[2023-04-21 06:22] LABS: Anion Gap 13 (12-20); Blood Urea Nitrogen 43 mg/dL (9-16); Calcium 9.9 mg/dL (8.4-10.2); Carbon Dioxide 19 mmol/L (22-29); Chloride 114 mmol/L (96-108); Creatinine Clr Calc Pharmacy 48.2; Estimated Glomerular Filt Rate 44; Glucose Random 132 mg/dL (60-115); Sodium 141 mmol/L (135-145)
[2023-04-21 07:04] VITALS: BP 106/57; PULSE 84; RESP 16; TEMP 36; O2SAT 94
[2023-04-21 07:14] LABS: Glucose, Whole Blood 124 mg/dL (60-115)
[2023-04-21] MEDS: Fluticasone/Umeclidinium/Vilanterol 200/62.5/25 BLST.W.DEV 1 PUFF INHALE (07:55)
[2023-04-21 07:56] VITALS: PULSE 83; RESP 14; O2SAT 96
[2023-04-21] MEDS: buPROPion HCl XL 150 MG TAB.ER.24H PO (08:29)
[2023-04-21] MEDS: Empagliflozin 10 MG TABLET PO (08:29)
[2023-04-21] MEDS: Vitamin E (Dl,Tocopheryl Acet) 180 MG (400 UNIT) CAPSULE PO (08:29)
[2023-04-21] MEDS: Cholecalciferol (Vitamin D3) 25 MCG TABLET 50 MCG PO (08:29)
[2023-04-21] MEDS: Ferrous Sulfate 324 MG TABLET.DR PO (08:29)
[2023-04-21] MEDS: Omeprazole 20 MG CAPSULE.DR PO (08:29)
[2023-04-21] MEDS: DULoxetine HCl 60 MG CAPSULE.DR PO (08:29)
[2023-04-21] MEDS: cloNIDine HCL 0.1 MG TABLET PO (08:29)
[2023-04-21] MEDS: TiZANidine HCL 4 MG TABLET 2 MG PO (08:29)
--- NOTE | 2023-04-21 08:36 | P.DS_ITS ---
DS: Providers Provider Date of Service: 04/21/23 Date of admission: 04/19/23 20:25 Primary care physician: LENA Donaldson DS: Diagnosis Discharge Diagnosis (1) Acute hyperkalemia: Status: Acute (2) Acute UTI: Status: Acute (3) Acute metabolic encephalopathy: Status: Acute DS: Summary Hospital Course Hospital Course: Hospital Course: This 62 yo F with medical hx of HTN, HLD, DM, urinary incontinence, mood disorder, GERD, NIURKA (without CPAP) and COPD (without home O2) presented to the ED department complaining of vaginal bleeding. Upon further assessment, it was found it may have been urethral bleeding. Additionally, stated that she had been intermittently confused x 3 days. She endorsed dysuria x 3 days with fever, chills, nausea, and poor PO intake. No CP, palpitations, SOB, abdominal pain, or changes in bowel habits. In the ED she was found to have UTI, ELIZABET with BUN of 97 and Cr. of 3.15, potassium of 6.0 with normal magnesium. Pelvic Ultrasound revealed endometrial fibroids. EKG was normal as was CT of the head, abdomen, and pelvis. ELIZABET likely due to dehydration was treated with IVF fluid and has resolved with Creatine 1.24. Hyperkalemia was treated with IV dextrose, regular insulin, calcium gluconate, Lokelma, stopping Lisinopril and has resolved; Potassium now 5. Due ELIZABET and hyperkalemia, Lisinopril is discontinued. UTI was treated with Ceftriaxone, urine culture grew E. coli sensitive to Ceftriaxone. At discharge will transition to Ceftin 250 mg bid for 7 more days. She afebril. Metabolic encephalopathy has completly resolved. She is feeling well and if comfortable going home. Her BP is within normal and at this point doens't need Lisinpril [id number] diabetes mellitus - Diabetic diet and SSI - Continue Jardiance Mood disorder: - Continue home mood stabilizers Essential hypertension: - Hold lisinopril d/t hyperkalemia and renal failure, BP (106/57 today) follow up with PCP for further med adjustment COPD: - Continue home inhalers Status at Discharge Functional status at discharge: independent ambulation Overall status at discharge: patient is back to baseline Time Attestation Discharge coordination time: Greater than 30 minutes Quality: Safe Use of Opioids Does Pt have an Active Cancer Diagnosis on the Problem List?: No Quality: Stroke Does the patient have a stroke diagnosis?: No Physical Exam Vital Signs: Vital Signs: Last Vital Signs Temp 96.8 F 04/21/23 07:04 Pulse 83 04/21/23 07:56 Resp 14 04/21/23 07:56 BP 106/57 L 04/21/23 07:04 Pulse Ox 94 04/21/23 07:04 O2 Del Method Room Air 04/21/23 07:04 BMI result Body Mass Index 34.4 General: A&Ox3, answering questions appropriately and resting comfortably CVS: Regular rate and rhythm, no murmurs. No peripheral edema. Pulm: No rales, wheezes, rhonchi. Regular respiratory effort GI/: No suprapubic pain with palpation, no CVA tenderness Neuro: no gross defect Psych: appropriate affect DS: Data Data Completed and Pending Labs on day of discharge: Laboratory Results - last 24 hr 04/20/23 04/20/23 04/20/23 11:00 16:19 19:43 Hold Purple Top Sodium Potassium Chloride Carbon Dioxide Anion Gap BUN Creatinine Estim Creat Clear Calc Estimated GFR POC Glucose 141 H 110 133 H Random Glucose Calcium 04/21/23 04/21/23 05:03 07:01 Hold Purple Top SEE NOTE Sodium 141 Potassium 5.0 Chloride 114 H Carbon Dioxide 19 L Anion Gap 13 BUN 43 H Creatinine 1.24 Estim Creat Clear Calc 48.2 Estimated GFR 44 POC Glucose 124 H Random Glucose 132 H Calcium 9.9 Discharge Plan Discharge Anticipated Discharge Date/Time: 04/21/23 08:47 Patient Disposition: Home, Self-Care Discharge Diagnosis: Metabolic encephalopathy, UTI, ELIZABET, hyperkalemia Referrals: Ashanti August, [employer]IOR [employer] [Primary Care Provider] - 1 Week Discharge Medications: New cefuroxime axetil 250 mg tablet 250 mg PO BID Qty: 14 0RF Continued Fiber Laxative(methylcellulos) 500 mg tablet 1,000 mg PO DAILY 30 Days Qty: 60 2RF bethanechol chloride 50 mg tablet 50 mg PO BID 90 Days Qty: 180 1RF pregabalin 75 mg capsule 75 mg PO TID Qty: 90 3RF sennosides [senna] 8.6 mg tablet 17.2 mg PO BEDTIME PRN (Reason: constipation) 30 Days Qty: 60 3RF ferrous sulfate 325 mg (65 mg iron) tablet 325 mg PO DAILY 90 Days Qty: 90 1RF omeprazole 20 mg capsule,delayed release(DR/EC) 20 mg PO BID Qty: 60 4RF albuterol sulfate 90 mcg/actuation HFA aerosol inhaler 2 puff inhalation Q4-6H PRN (Reason: shortness of breath or wheezing) Qty: 8.5 0RF atorvastatin 80 mg tablet 80 mg PO BEDTIME duloxetine 60 mg capsule,delayed release(DR/EC) 1 cap PO BID Jardiance 10 mg tablet 1 tab PO DAILY clonidine HCl 0.1 mg tablet 0.1 mg PO BID tizanidine 2 mg tablet 2 mg PO DAILY quetiapine 100 mg tablet 100 mg PO BEDTIME bupropion HCl 150 mg tablet extended release 24 hr 150 mg PO QAM quetiapine 300 mg tablet 300 mg PO BEDTIME tizanidine 2 mg tablet 4 mg PO BEDTIME fenofibrate micronized 134 mg capsule 134 mg PO DAILY (DME) blood sugar diagnostic Strip See Rx Instructions Not Applicable BID Qty: 10 Rx Instructions: As directed mirtazapine 45 mg tablet 45 mg PO BEDTIME cholecalciferol (vitamin D3) 50 mcg (2,000 unit) capsule 50 mcg PO DAILY diclofenac sodium 1 % gel 2 g topical QID Hold Instructions: Resume on 01/20/21. vitamin E 100 unit capsule 1 cap PO DAILY (DME) blood-glucose meter [FreeStyle [place] Lite] Kit See Rx Instructions .ROUTE .MEDSUPPLY Qty: 1 Rx Instructions: As directed (DME) Compact Space Chamber Spacer See Rx Instructions .ROUTE .MEDSUPPLY Qty: 1 Rx Instructions: As directed (DME) lancets [TRUEplus Lancets] 33 gauge misc See Rx Instructions Not Applicable BID Qty: 100 Rx Instructions: As directed Trelegy Ellipta 200-62.5-25 mcg blister with device 1 inh inhalation DAILY 30 Days Qty: 1 6RF Trulicity 1.5 mg/0.5 mL pen injector 1.5 mg subcut QWEEK Linzess 145 mcg capsule 145 mcg PO QAM 30 Days Qty: 30 3RF acetaminophen 500 mg tablet 1,000 mg PO Q8H PRN (Reason: Pain) Qty: 180 0RF hydroxyzine pamoate 50 mg capsule 50 mg PO TID PRN (Reason: Anxiety) Discontinued lisinopril 10 mg tablet 10 mg PO DAILY Discharge Orders: Discharge Order (Routine); Ordered 04/21/23 Ordered By: Darrion Patterson Diet: Diabetic diet Activity on Discharge: As tolerated Stand Alone Forms: Patient Portal Discharge page Care Plan Goals: Recover from UTI and metabolic encephalopath Health Concerns: UTI, DM, Urinary retention, COPD, enceophalopathy resoved Plan of Treatment: Take Cefuroxime 250mg twice daily for 7 days. Follow up with Primary care physician in a week, call for appointment Stop taking Lisinopril as it was making your potassium go up too much Assessment: As above Patient Instructions: Urinary Tract Infection in Older Adults (DC)
--- NOTE | 2023-04-21 09:40 | MHC.CM.PN ---
Pt has been medically cleared for DC, she will go home via family transport, and resume her prior services.
[2023-04-21] MEDS: cefuroxime axetiL 250 MG TABLET PO (09:44)
== END 2023-04-21 10:40 | disposition home or self-care (01) | DRG 689 ==
LOC: HO.ED 17:10 → HO.EDOVER 20:30 → HO.S3 23:55
PROVIDERS: Nurse Practitioner Family; Physician Assistant Medical; Admitting Provider Student in an Organized Health Care Education/Training Program; Emergency Provider Emergency Medicine Emergency Medical Services; PCP Registered Nurse; Visit Provider Internal Medicine
DX: N39.0 Urinary tract infection, site not specified (principal); G93.41 Metabolic encephalopathy; N17.9 Acute kidney failure, unspecified; D25.2 Subserosal leiomyoma of uterus; R32 Unspecified urinary incontinence; B96.20 Unspecified Escherichia coli [E. coli] as the cause of diseases classified elsewhere; E78.2 Mixed hyperlipidemia; E86.0 Dehydration; I10 Essential (primary) hypertension; E87.5 Hyperkalemia; J44.9 Chronic obstructive pulmonary disease, unspecified; E66.9 Obesity, unspecified; Z68.34 Body mass index [BMI] 34.0-34.9, adult; Z87.891 Personal history of nicotine dependence; Z79.85 Long-term (current) use of injectable non-insulin antidiabetic drugs; Z79.899 Other long term (current) drug therapy
CPT/HCPCS: 36415; 70450; 74176; 76830; 76856; 80048; 81001; 82550; 82570; 82947; 83735; 84300; 85025; 87086; 87088; 87186; 93005; 94640; 94664; 99285; J0613; J0696

== ENCOUNTER → 2023-04-19 16:51 | Outpatient (BNV) | payer OTHER, SELFPAY | PROVIDERS: Admitting Provider Student in an Organized Health Care Education/Training Program; Emergency Provider Emergency Medicine Emergency Medical Services; PCP Registered Nurse; Visit Provider Internal Medicine | DX: G93.41 Metabolic encephalopathy (principal) | CPT/HCPCS: 93010 ==

== ENCOUNTER → 2023-04-19 20:25 | Outpatient (BNV) | payer OTHER, SELFPAY | PROVIDERS: Admitting Provider Student in an Organized Health Care Education/Training Program; Emergency Provider Emergency Medicine Emergency Medical Services; PCP Registered Nurse; Visit Provider Student in an Organized Health Care Education/Training Program | DX: E87.5 Hyperkalemia (principal); N39.0 Urinary tract infection, site not specified; G93.41 Metabolic encephalopathy; E11.9 Type 2 diabetes mellitus without complications | CPT/HCPCS: 99222; 99232; 99239 ==

== ENCOUNTER 2023-05-08 11:11 | Outpatient (REF) | payer OTHER, SELFPAY ==
[2023-05-08 13:51] LABS: Alanine Aminotransferase 73 U/L (0-31); Albumin Level 4.7 g/dL (3.5-5.0); Alkaline Phosphatase 133 U/L (39-117); Anion Gap 17 (12-20); Aspartate Amino Transferase 97 U/L (5-31); Bilirubin Total 0.7 mg/dL (0.0-1.0); Blood Urea Nitrogen 21 mg/dL (9-16); Calcium 10.9 mg/dL (8.4-10.2); Carbon Dioxide 26 mmol/L (22-29); Chloride 104 mmol/L (96-108); Cholesterol 230 mg/dL (<200); Estimated Glomerular Filt Rate 47; Glucose Random 113 mg/dL (60-115); HDL Cholesterol 46 mg/dL (>40); LDL Cholesterol Calculated 130 mg/dL (<100); Potassium 4.6 mmol/L (3.3-5.1); Sodium 142 mmol/L (135-145); Triglycerides 274 mg/dL (<150)
== END 2023-05-08 11:12 | disposition home or self-care (01) ==
LOC: HO.HHCL 11:11
PROVIDERS: Visit Provider Registered Nurse
DX: N17.9 Acute kidney failure, unspecified (principal)
CPT/HCPCS: 36415; 80053; 80061

== ENCOUNTER 2023-05-11 13:32 | Outpatient (AMB) | payer OTHER, SELFPAY ==
--- NOTE | 2023-05-11 13:46 | A.OFFVIS_ITS ---
Intake Vital Signs 05/11/23 13:47 Height 5 ft 3 in Weight 189 lb 9.561 oz BMI 33.6 BP 132/78 Blood Pressure Location Rt brachial Position Sitting Pulse 90 Pulse Source Doppler Pulse Oximetry (%) 98 Oxygen Delivery Method Nasal Cannula Oxygen Flow Rate 2 Intake Visit Reasons: COPD Allergies oxycodone [Percocet] Allergy (Intermediate, Verified 05/11/23 13:52) Itching Vicodin Allergy (Intermediate, Uncoded 04/20/23 01:19) itching HPI COPD HPI Details 62-year-old lady, recent 35+ pack-year s moker followed for supplemental oxygen 2 L continuous flow dependent COPD.? She continues to use Trelegy with reasonable control of her underlying dyspnea.? She does have an underlying diastolic dysfunction and is currently under cardiologic care.? Today she complains of worsening orthopnea and lower extremity edema. [facility] Medical History (Updated 05/11/23 @ 15:05 by Maxi Lam MD) Frequent falls Acute exacerbation of chronic obstructive airways disease Urinary retention with incomplete bladder emptying Steatohepatitis IBS (irritable bowel syndrome) History of colon polyps Dysphagia, pharyngoesophageal phase GERD without esophagitis Hx of hereditary disease Diabetes mellitus Depression Fibromyalgia Surgical History Hx of abdominal surgery History of back surgery History of esophagogastroduodenoscopy (EGD) S/p total knee replacement, bilateral Hx of tubal ligation Hx of cholecystectomy Hx of endoscopy History of colonoscopy Family History Father History of heart attack Hx of type 1 diabetes mellitus Mother Alive and well Social History Household Members: Spouse Housing: Apartment Do you presently have visiting nurse or other home services: Yes Alcohol intake: former Patient Tobacco Use Status: Former Tobacco user Quit Date: 12/02/2020 Tobacco use type: Cigarette Cigarette Packs Per Day: 0.5 Cigarettes Per Day: 10.0 Years Smoked: 25 yrs Advance Directives Date on File: 10/20/20 service: No Current occupational status: unemployed Review of Systems Const Denies daytime sleepiness, Denies excessive sweating, Denies fatigue, Denies fever(s), Denies lethargy, Denies malaise, Denies night sweats, Denies snoring and Denies weight loss Eyes Denies blurry vision and Denies itchy eyes ENT Denies nasal congestion, Denies post nasal drip, Denies sinus pain, Denies sinus pressure and Denies other ( Thrush) Card Denies chest pain, Reports pedal edema, Denies dyspnea, Reports orthopnea and Denies paroxysmal nocturnal dyspnea Resp Denies cough, Denies hemoptysis, Denies excessive phlegm production, Denies dyspnea, Denies snoring and Denies wheezing GI Denies abdominal pain and Denies heartburn Musc Denies myalgias, Denies arthralgias and Denies joint swelling Skin/Breast Denies rash Neuro Denies memory loss and Denies seizure-like activity Psych Denies abnormal sleep pattern, Denies anxiety and Denies memory loss Endo Denies excessive sweating, Denies fatigue and Denies heat intolerance Rocky/Lymph Denies easy bruising Aller/Immun Denies itchy eyes, Denies seasonal rhinorrhea and Denies wheezing Physical Exam Vital Signs: Last Vital Signs Pulse 90 05/11/23 13:47 BP 132/78 05/11/23 13:47 Pulse Ox 98 05/11/23 13:47 Oxygen Delivery Method Nasal Cannula 05/11/23 13:47 Oxygen Flow Rate 2 05/11/23 13:47 BMI result Body Mass Index 33.6 Const General: no acute distress and alert Nutritional Appearance: not obese Orientation/consciousness: Other orientation findings ( oriented) HEENT Head: Yes atraumatic Eyes General: appearance normal, both eyes and all related structures Sclerae: sclerae normal EOM: EOMs intact bilaterally Neck Neck: Yes supple Lymphatic: no lymphadenopathy noted Resp Effort & Inspection: normal respiratory effort and no use of accessory muscles Auscultation: clear to auscultation bilaterally Cardio Rate: regular rate Rhythm: regular rhythm Heart sounds: no gallops, no murmurs and no rubs Skin General skin exam: other ( warm) Extrem General: No clubbing, No cyanosis and Yes edema (1+ bilateral) Assessment & Plan Assessment & Plan (1) COPD (chronic obstructive pulmonary disease): Code(s): J44.9 - Chronic obstructive pulmonary disease, unspecified Plan: Well controlled. Continue current regimen of trilogy and albuterol MDI. (2) Supplemental oxygen dependent: Code(s): Z99.81 - Dependence on supplemental oxygen Plan: Continue supplemental oxygen to maintain O2 saturation of 88-92% (3) Personal history of nicotine dependence: Code(s): Z87.891 - Personal history of nicotine dependence Plan: Continue with lung cancer screening CT chest, next in December of 2023. Ordered. (4) Orthopnea: Code(s): R06.01 - Orthopnea Plan: Now worsening orthopnea lower extremity edema. Will start on Lasix 20 mg daily. Orders: Orders CT lung screening 12/10/23 Z87.891 - Personal history of nicotine dependence Medications: New furosemide 20 mg PO DAILY 30 tabs 6RF Coding Level of Care Code Est Pt Level 5 (75835) Diagnoses COPD (chronic obstructive pulmonary disease) J44.9 Supplemental oxygen dependent Z99.81 Personal history of nicotine dependence Z87.891 Orthopnea R06.01
[2023-05-11 13:47] VITALS: BP 132/78; PULSE 90; O2SAT 98; BMI 33.6
== END 2023-05-11 13:56 | disposition home or self-care (01) ==
PROVIDERS: PCP Registered Nurse; Visit Provider Internal Medicine Pulmonary Disease
DX: J44.9 Chronic obstructive pulmonary disease, unspecified (principal); Z99.81 Dependence on supplemental oxygen; Z87.891 Personal history of nicotine dependence; R06.01 Orthopnea
CPT/HCPCS: 99214

== ENCOUNTER → 2023-05-11 13:32 | Outpatient (BNVA) | payer OTHER, SELFPAY | PROVIDERS: PCP Registered Nurse; Visit Provider Internal Medicine Pulmonary Disease | DX: J44.9 Chronic obstructive pulmonary disease, unspecified (principal); R06.01 Orthopnea; Z99.81 Dependence on supplemental oxygen; Z87.891 Personal history of nicotine dependence | CPT/HCPCS: 99212 ==

== ENCOUNTER 2023-05-17 14:25 | Outpatient (REF) | payer OTHER, SELFPAY ==
[2023-05-17 15:55] LABS: MANUAL DIFF FLAG NO
[2023-05-17 16:01] LABS: Basophils Absolute Auto 0.1 X10*3/uL (0.0-0.2); Basophils Percent Auto 1.3 % (0-2); Eosinophils Absolute Auto 0.1 X10*3/uL (0.0-0.4); Eosinophils Percent Auto 1.5 % (0-4); Hematocrit 43.1 % (37.0-47.0); Hemoglobin 13.6 g/dl (12.0-16.0); Imm Gran Abs Auto 0.08 X10*3/uL (0.00-0.03); Imm Gran Pct Auto 1.3 % (0.0-0.4); Lymphocytes Absolute Auto 1.8 X10*3/uL (1.2-4.9); Lymphocytes Percent Auto 30.6 % (20-40); Mean Corpuscular HGB Conc 31.6 g/dl (31.0-35.0); Mean Corpuscular Hemoglobin 29.8 pg (27.0-33.0); Mean Corpuscular Volume 94.3 fL (80.0-98.0); Mean Platelet Volume 10.8 fL (9.4-12.3); Monocytes Absolute Auto 0.5 X10*3/uL (0.1-1.2); Monocytes Percent Auto 8.4 % (2-11); Neutrophils Absolute Auto 3.4 x10*3/uL (2.0-8.3); Neutrophils Percent Auto 56.9 % (45-73); Platelet Count 195 X10*3/uL (160-400); Red Blood Count 4.57 X10*6/uL (4.20-5.50); Red Cell Distribution Width 14.9 % (11.0-16.0)
[2023-05-17 16:20] LABS: Alanine Aminotransferase 44 U/L (0-31); Albumin Level 4.4 g/dL (3.5-5.0); Alkaline Phosphatase 113 U/L (39-117); Anion Gap 15 (12-20); Aspartate Amino Transferase 71 U/L (5-31); Bilirubin Total 0.7 mg/dL (0.0-1.0); Blood Urea Nitrogen 23 mg/dL (9-16); Calcium 10.2 mg/dL (8.4-10.2); Carbon Dioxide 24 mmol/L (22-29); Chloride 107 mmol/L (96-108); Estimated Glomerular Filt Rate 50; Glucose Random 137 mg/dL (60-115); Phosphorus 4.7 mg/dL (2.7-4.5); Potassium 4.7 mmol/L (3.3-5.1); Sodium 141 mmol/L (135-145); Total Protein 8.5 g/dL (6.5-8.0)
[2023-05-17 16:34] LABS: Vitamin D 25-OH Total 51.2 ng/mL (>30)
[2023-05-17 16:38] LABS: Parathyroid Hormone Intact 50.8 pg/mL (8.7-77.1)
== END 2023-05-17 14:26 | disposition home or self-care (01) ==
LOC: HO.HHCL 14:25
PROVIDERS: Visit Provider Registered Nurse
DX: R74.8 Abnormal levels of other serum enzymes (principal); E83.52 Hypercalcemia
CPT/HCPCS: 36415; 80053; 82306; 83970; 84100; 85025

== ENCOUNTER 2023-05-24 09:20 | Emergency (ER) | payer OTHER, SELFPAY ==
--- NOTE | ~2023-05-24 | CT_ITS ---
EXAMINATION: CT HEAD WITHOUT CONTRAST CLINICAL INFORMATION: Head injury confusion COMPARISON: CT head from 04/19/2023 TECHNIQUE: Contiguous axial imaging was performed from the skull base to vertex without intravenous administration of contrast. This CT examination was performed using dose optimization techniques as appropriate, variously including the following: *Automated exposure control *Adjustment of mA and/or kV according to patient size (this includes techniques or standardized protocols for targeted exams where dose is matched to indication/reason for exam; i.e. extremities or head) *Use of iterative reconstruction technique DLP: 912 mGy-cm FINDINGS: There is no evidence of acute intracranial hemorrhage or territorial infarction. No abnormal mass effect or midline shift is seen. Tillman to white matter differentiation is well preserved. No extra-axial fluid collections are identified. The ventricles are normal in size. There is no abnormal attenuation within the brain parenchyma. The osseous structures and soft tissues are normal. The mastoid air cells and visualized portions of the paranasal sinuses are well aerated. Atherosclerotic calcifications are noted. CT/CT cervical spine wo IV con IMPRESSION: No acute intracranial pathology. EXAMINATION: Noncontrast CT scan of the cervical spine. INDICATION: Head injury COMPARISON: None. TECHNIQUE: Helical, multidetector axial images were obtained from the occiput to the upper thorax. Coronal and sagittal reformats of the cervical spine were provided for interpretation. DLP: 912 mGy-cm FINDINGS: No acute fractures or dislocations of the cervical spine are seen. Anterior cervical fusion of C4-C5, grossly intact. Grade 1 anterolisthesis of C7 on T1. Straightening of the normal cervical curvature. Multilevel degenerative changes. Anatomic alignment and positioning of the vertebral bodies and posterior elements is noted. The atlantoaxial joint and craniovertebral articulations are normal without evidence of subluxation. There is no prevertebral soft tissue swelling. Visualized portions of the lungs are unremarkable. IMPRESSION: 1. No acute visible fracture or dislocation. 2. Anterior cervical fusion of C4-C5, grossly intact. 3. Grade 1 anterolisthesis of C7 on T1. 4. Straightening of the normal cervical curvature. 5. Multilevel degenerative changes.
[2023-05-24 09:24] VITALS: BP 142/75; PULSE 107; RESP 16; TEMP 36.7; O2SAT 96; BMI 31.9
[2023-05-24 09:48] LABS: MANUAL DIFF FLAG NO
[2023-05-24 09:49] LABS: Basophils Absolute Auto 0.1 X10*3/uL (0.0-0.2); Basophils Percent Auto 0.9 % (0-2); Eosinophils Absolute Auto 0.1 X10*3/uL (0.0-0.4); Eosinophils Percent Auto 1.2 % (0-4); Hematocrit 42.6 % (37.0-47.0); Hemoglobin 13.2 g/dl (12.0-16.0); Imm Gran Abs Auto 0.05 X10*3/uL (0.00-0.03); Imm Gran Pct Auto 0.9 % (0.0-0.4); Lymphocytes Absolute Auto 1.5 X10*3/uL (1.2-4.9); Mean Corpuscular Hemoglobin 28.9 pg (27.0-33.0); Mean Corpuscular Volume 93.2 fL (80.0-98.0); Mean Platelet Volume 10.1 fL (9.4-12.3); Monocytes Absolute Auto 0.4 X10*3/uL (0.1-1.2); Monocytes Percent Auto 7.1 % (2-11); Neutrophils Absolute Auto 3.6 x10*3/uL (2.0-8.3); Neutrophils Percent Auto 63.9 % (45-73); Platelet Count 184 X10*3/uL (160-400); Red Blood Count 4.57 X10*6/uL (4.20-5.50); Red Cell Distribution Width 14.9 % (11.0-16.0); White Blood Count 5.6 X10*3/uL (4.8-10.8)
[2023-05-24 10:05] LABS: Anion Gap 19 (12-20); Blood Urea Nitrogen 31 mg/dL (9-16); Calcium 9.8 mg/dL (8.4-10.2); Carbon Dioxide 23 mmol/L (22-29); Chloride 106 mmol/L (96-108); Creatinine Clr Calc Pharmacy 44.5; Estimated Glomerular Filt Rate 40; Ethanol < 10 mg/dL; Glucose Random 221 mg/dL (60-115); Potassium 4.6 mmol/L (3.3-5.1); Sodium 143 mmol/L (135-145)
[2023-05-24 10:12] LABS: COVID-19 Test Negative (Negative); IDNOW Serial# 08D9AD1C; IDNOW Serial# 152EDE1D; Influenza A Negative (Negative); Influenza B2 Negative (Negative)
[2023-05-24 11:23] VITALS: BP 147/86; PULSE 104; RESP 16; O2SAT 93
[2023-05-24 11:32] LABS: Appearance Urine Clear; Color Urine Yellow; Glucose Urine UA >=1000 mg/dL (Negative); Leukocyte Esterase Urine Negative (Negative); Nitrite Urine Negative (Negative); Specific Gravity - Urine >= 1.030 (1.005-1.025); UMIC TRIGGER UACC YES; Urine Blood Negative (Negative); Urine Ketones Negative (Negative); Urine Protein Negative (Neg-Trace)
[2023-05-24 11:47] LABS: Bacteria Urine None Seen (None Seen); Hyaline Casts Urine 0-2 /LPF (0-2); RBC Urine 0-2 /HPF (0-2); Squamous Epithelial Cell Urine 0-2 /HPF (0-2); WBC Urine 0-5 /HPF (0-5)
--- NOTE | 2023-05-24 11:49 | ED.GENADULT ---
HPI - General Adult General Chief complaint: Altered Mental Status Stated complaint: confused diff breathing shaking Time Seen by Provider: 05/24/23 11:37 History of Present Illness HPI narrative: The patient is a 62-year-old woman who lives with her . According to the the patient has been somewhat confused over the last couple of days. He says she was very confused like in a panic. Apparently she fell at home going down stairs and may have hit her head. Her then brought her to the hospital for evaluation. The patient's says that the patient has had similar episodes in the past often attributed to UTIs. Been describes the patient has confused but the patient does not feel she is confused. No definite fever. No cough or sputum. No abdominal pain, nausea, vomiting. The patient's last bowel movement was 3 days ago. She denies any black or other discolored stools. Related Data Home Medications Medication Instructions Recorded Confirmed fenofibrate micronized 134 mg 134 mg PO DAILY 01/21/20 04/19/23 capsule blood sugar diagnostic #10 ea 06/25/20 09/22/22 cholecalciferol (vitamin D3) 50 50 mcg PO DAILY 06/25/20 04/19/23 mcg (2,000 unit) capsule diclofenac sodium 1 % topical gel 2 g topical QID 06/25/20 04/19/23 mirtazapine 45 mg tablet 45 mg PO BEDTIME 06/25/20 04/19/23 atorvastatin 80 mg tablet 80 mg PO BEDTIME 10/17/20 04/19/23 duloxetine 60 mg capsule,delayed 1 cap PO BID 10/17/20 04/19/23 release empagliflozin 10 mg tablet 1 tab PO DAILY diabetes mellitus 01/06/21 04/19/23 (Jardiance) blood-glucose meter (FreeStyle #1 ea 03/02/21 09/22/22 Richardson Lite kit) inhalational spacing device #1 ea 03/02/21 09/22/22 (Compact Space Chamber) lancets 33 gauge (TRUEplus Lancets) #100 ea 03/02/21 09/22/22 vitamin E 100 unit capsule 1 cap PO DAILY 03/02/21 04/19/23 dulaglutide 1.5 mg/0.5 mL 1.5 mg subcut QWEEK diabetes 08/16/21 04/19/23 subcutaneous pen injector mellitus (Trulicity) hydroxyzine pamoate 50 mg capsule 50 mg PO TID PRN Anxiety 05/05/22 04/19/23 bupropion HCl 150 mg 24 hr tablet, 150 mg PO QAM 04/19/23 04/19/23 extended release clonidine HCl 0.1 mg tablet 0.1 mg PO BID 04/19/23 04/19/23 quetiapine 100 mg tablet 100 mg PO BEDTIME 04/19/23 04/19/23 quetiapine 300 mg tablet 300 mg PO BEDTIME 04/19/23 04/19/23 tizanidine 2 mg tablet 2 mg PO DAILY 04/19/23 04/19/23 tizanidine 2 mg tablet 4 mg PO BEDTIME 04/19/23 04/19/23 Previous Rx's Medication Instructions Recorded albuterol sulfate 90 mcg/actuation 2 puff inhalation Q4-6H PRN 10/07/20 aerosol inhaler shortness of breath or wheezing #8.5 grams fluticasone fur. 200 mcg-umeclid 1 inh inhalation DAILY 30 days #1 01/19/21 62.5 mcg-vilant 25 mcg ea inhalat.powder (Trelegy Ellipta) acetaminophen 500 mg tablet 1,000 mg (2 x 500 mg) PO Q8H PRN 07/06/21 Pain #180 tabs methylcellulose (laxative) 500 mg 1,000 mg (2 x 500 mg) PO DAILY 30 02/11/22 tablet (Fiber Laxative days #60 tabs (methylcellulose)) linaclotide 145 mcg capsule 145 mcg PO QAM 30 days #30 caps 09/22/22 (Linzess) bethanechol chloride 50 mg tablet 50 mg PO BID 90 days #180 tabs 11/24/22 pregabalin 75 mg capsule 75 mg PO TID #90 caps 02/20/23 sennosides 8.6 mg tablet (senna) 17.2 mg (2 x 8.6 mg) PO BEDTIME 03/31/23 PRN constipation 30 days #60 tabs ferrous sulfate 325 mg (65 mg 325 mg PO DAILY 90 days #90 tabs 04/06/23 iron) tablet omeprazole 20 mg capsule,delayed 20 mg PO BID #60 caps 04/13/23 release cefuroxime axetil 250 mg tablet 250 mg PO BID #14 tabs 04/21/23 furosemide 20 mg tablet 20 mg PO DAILY #30 tabs 05/11/23 Allergies Allergy/AdvReac Type Severity Reaction Status Date / Time oxycodone [Percocet] Allergy Intermediate Itching Verified 05/24/23 09:24 Vicodin Allergy Intermediate itching Uncoded 04/20/23 01:19 Review of Systems Review of Systems: Yes all other systems are reviewed and are negative PMFSH Past Medical History Medical History (Updated 05/24/23 @ 15:28 by Tanmay Alvarado MD) Frequent falls Acute exacerbation of chronic obstructive airways disease Urinary retention with incomplete bladder emptying Steatohepatitis IBS (irritable bowel syndrome) History of colon polyps Dysphagia, pharyngoesophageal phase GERD without esophagitis Hx of hereditary disease Diabetes mellitus Depression Fibromyalgia Surgical History Hx of abdominal surgery History of back surgery History of esophagogastroduodenoscopy (EGD) S/p total knee replacement, bilateral Hx of tubal ligation Hx of cholecystectomy Hx of endoscopy History of colonoscopy Family History Family History Father History of heart attack Hx of type 1 diabetes mellitus Mother Alive and well Social History Social History Household Members: Spouse Housing: Apartment Do you presently have visiting nurse or other home services: Yes Alcohol intake: former Patient Tobacco Use Status: Former Tobacco user Quit Date: 12/02/2020 Tobacco use type: Cigarette Cigarette Packs Per Day: 0.5 Cigarettes Per Day: 10.0 Years Smoked: 25 yrs Advance Directives: Yes Advance Directives on File: Yes Advance Directives Date on File: 10/20/20 service: No Current occupational status: unemployed Physical Exam ED Vital Signs: Vital Signs - 24 hr 05/24/23 09:24 05/24/23 11:23 05/24/23 12:31 Temperature 98.0 F 98.6 F Pulse Rate 107 H 104 H 98 Respiratory Rate 16 16 14 Blood Pressure 142/75 H 147/86 H 148/76 H Pulse Oximetry 96 93 97 Oxygen Delivery Method Room Air Room Air Room Air 05/24/23 16:28 Temperature Pulse Rate 98 Respiratory Rate 16 Blood Pressure 154/92 H Pulse Oximetry 95 Oxygen Delivery Method Room Air BMI result Body Mass Index 31.9 Const Other: Patient is a somewhat chronically ill-appearing 62-year-old who was awake and alert and did not seem in obvious distress. She seemed pleasant and cheerful HENMT Other: The face is symmetrical. No signs of trauma to the head or the face. No raccoon eyes. No meza sign Eyes Other: Pupils are round, equal, and reactive to light, extraocular movements intact, conjunctivae clear Neck Other: No JVD. There was some posterior C-spine tenderness with palpation Resp Effort & Inspection: normal respiratory effort Auscultation: clear to auscultation bilaterally Cardio Rate: regular rate Rhythm: regular rhythm Heart sounds: S1 normal heart sound present and S2 normal heart sound present GI Other: Abdomen is soft and nontender Skin Other: Skin is dry and unremarkable Neuro Other: The patient is awake and alert. She is reasonably well oriented. Speech is clear. Face is symmetrical. Eye movements intact. She moves her extremities symmetrically. She has a nonfocal neurological exam and was ultimately able to walk quite steadily with a walker and get herself in and out of a chair easily Extrem Other: No signs of trauma to the extremities. No pitting edema Medications Administered Discontinued Medications Generic Name Dose Route Start Last Admin Trade Name Freq PRN Reason Stop Dose Admin Sodium Chloride 1,000 mls @ 999 mls/hr 05/24/23 12:00 05/24/23 14:22 Ns IV 05/24/23 13:00 Infused .Q1H1M KIMBERLY Infusion Medical Decision Making Medical Decision Making [facility] Narrative: The patient is a 62-year-old who was brought to the hospital by her after a fall at home. The also implied that he thought the patient seemed confused. On my evaluation the patient does not seem obviously confused in any way. She is reasonably well oriented to the month and her age and location. The patient's 's supposition was that the patient might have a UTI. Her urinalysis does not suggest a UTI. She does not have any findings on her labs to suggest a significant infectious process. Her white count is 5.6 with a normal differential. The patient's basic metabolic panel shows a BUN of 31 which is up from 23 a week ago. Perhaps this represents some dehydration. There is no significant change in her hemoglobin so I doubt this represents a GI bleed. Additionally the patient does not have any symptoms of a GI bleed. The patient was given a L of IV normal saline. She was given a trial of ambulation with a walker and did quite well. She was able to get herself in and out of a chair. My overall impression is that she does not have any process requiring additional investigations or hospitalization. She will be discharged with her to return if worse. She has INSTRUCTOR NURSE help at home. Lab Data 05/24/23 09:36 05/24/23 09:36 Labs: Lab Results 05/24/23 05/24/23 Range/Units 09:36 11:25 WBC 5.6 (4.8-10.8) X10*3/uL RBC 4.57 (4.20-5.50) X10*6/uL Hgb 13.2 (12.0-16.0) g/dl Hct 42.6 (37.0-47.0) % MCV 93.2 (80.0-98.0) fL MCH 28.9 (27.0-33.0) pg MCHC 31.0 (31.0-35.0) g/dl RDW 14.9 (11.0-16.0) % Plt Count 184 (160-400) X10*3/uL MPV 10.1 (9.4-12.3) fL Immature Gran % (Auto) 0.9 H (0.0-0.4) % Neut % (Auto) 63.9 (45-73) % Lymph % (Auto) 26.0 (20-40) % [place] % (Auto) 7.1 (2-11) % Eos % (Auto) 1.2 (0-4) % Baso % (Auto) 0.9 (0-2) % Lymph # (Auto) 1.5 (1.2-4.9) X10*3/uL [place] # (Auto) 0.4 (0.1-1.2) X10*3/uL Eos # (Auto) 0.1 (0.0-0.4) X10*3/uL Baso # (Auto) 0.1 (0.0-0.2) X10*3/uL Abs Immat Gran (auto) 0.05 H (0.00-0.03) X10*3/uL Absolute Neuts (auto) 3.6 (2.0-8.3) x10*3/uL Absolute Nucleated RBC 0.000 (0.0-0.012) X10*3/uL Nucleated RBC % (auto) 0.0 (0.0-0.2) /100WBC Sodium 143 (135-145) mmol/L Potassium 4.6 (3.3-5.1) mmol/L Chloride 106 (96-108) mmol/L Carbon Dioxide 23 (22-29) mmol/L Anion Gap 19 (12-20) BUN 31 H (9-16) mg/dL Creatinine 1.34 (0.5-1.4) mg/dL Estim Creat Clear Calc 44.5 Estimated GFR 40 Random Glucose 221 H (60-115) mg/dL Calcium 9.8 (8.4-10.2) mg/dL Troponin I High Sens < 2.7 (<3.5-17.0) ng/L C-Reactive Protein 0.34 (< or = 0.50) mg/dL Urine Color Yellow Urine Appearance Clear Urine pH 6.0 (5.0-9.0) Ur Specific [place] >= 1.030 H (1.005-1.025) Urine Protein Negative (Neg-Trace) mg/dL Urine Glucose (UA) >=1000 H (Negative) mg/dL Urine Ketones Negative (Negative) mg/dL Urine Blood Negative (Negative) Urine Nitrite Negative (Negative) Ur Leukocyte Esterase Negative (Negative) Urine RBC 0-2 (0-2) /HPF Urine WBC 0-5 (0-5) /HPF Ur Squamous Epith Cells 0-2 (0-2) /HPF Urine Bacteria None Seen (None Seen) Hyaline Casts 0-2 (0-2) /LPF Ethyl Alcohol < 10 mg/dL COVID-19 (SHAY) Negative (Negative) COVID-19 Clin Com See Note Influenza Type A (JHONATHAN) Negative (Negative) Influenza Type B (JHONATHAN) Negative (Negative) Influenza A & B Note See Note Independent Interpretation I performed an independent interpretation of an: EKG Interpretation: EKG at 15:52 shows normal sinus rhythm at 95 beats per minute. No definite acute ischemic changes. No definite change from previous EKG aside from increased heart rate. Discharge Plan Discharge Clinical Impression: Fall, Weakness Patient Disposition: Home, Self-Care Additional Instructions: Your testing in the emergency room today does not show any urinary tract infection or other process. You may be mildly dehydrated. You received 1 liter of IV fluids. Please continue your regular medications. Seeing your fluid intake. It might be good to take at least 2 extra 8 oz glasses of water per day. Please contact your regular doctor's office today to set up a prompt follow-up appointment to discuss how you are doing at greater length. Return to the emergency room if significantly worse Prescriptions: No Action Fiber Laxative(methylcellulos) 500 mg tablet 1,000 mg PO DAILY 30 Days Qty: 60 2RF bethanechol chloride 50 mg tablet 50 mg PO BID 90 Days Qty: 180 1RF pregabalin 75 mg capsule 75 mg PO TID Qty: 90 3RF sennosides [senna] 8.6 mg tablet 17.2 mg PO BEDTIME PRN (Reason: constipation) 30 Days Qty: 60 3RF ferrous sulfate 325 mg (65 mg iron) tablet 325 mg PO DAILY 90 Days Qty: 90 1RF omeprazole 20 mg capsule,delayed release(DR/EC) 20 mg PO BID Qty: 60 4RF albuterol sulfate 90 mcg/actuation HFA aerosol inhaler 2 puff inhalation Q4-6H PRN (Reason: shortness of breath or wheezing) Qty: 8.5 0RF atorvastatin 80 mg tablet 80 mg PO BEDTIME duloxetine 60 mg capsule,delayed release(DR/EC) 1 cap PO BID Jardiance 10 mg tablet 1 tab PO DAILY clonidine HCl 0.1 mg tablet 0.1 mg PO BID tizanidine 2 mg tablet 2 mg PO DAILY quetiapine 100 mg tablet 100 mg PO BEDTIME bupropion HCl 150 mg tablet extended release 24 hr 150 mg PO QAM quetiapine 300 mg tablet 300 mg PO BEDTIME tizanidine 2 mg tablet 4 mg PO BEDTIME cefuroxime axetil 250 mg tablet 250 mg PO BID Qty: 14 0RF fenofibrate micronized 134 mg capsule 134 mg PO DAILY (DME) blood sugar diagnostic Strip See Rx Instructions Not Applicable BID Qty: 10 Rx Instructions: As directed mirtazapine 45 mg tablet 45 mg PO BEDTIME cholecalciferol (vitamin D3) 50 mcg (2,000 unit) capsule 50 mcg PO DAILY diclofenac sodium 1 % gel 2 g topical QID Hold Instructions: Resume on 01/20/21. vitamin E 100 unit capsule 1 cap PO DAILY (DME) blood-glucose meter [FreeStyle Richardson Lite] Kit See Rx Instructions .ROUTE .MEDSUPPLY Qty: 1 Rx Instructions: As directed (DME) Compact Space Chamber Spacer See Rx Instructions .ROUTE .MEDSUPPLY Qty: 1 Rx Instructions: As directed (DME) lancets [TRUEplus Lancets] 33 gauge misc See Rx Instructions Not Applicable BID Qty: 100 Rx Instructions: As directed Trelegy Ellipta 200-62.5-25 mcg blister with device 1 inh inhalation DAILY 30 Days Qty: 1 6RF Trulicity 1.5 mg/0.5 mL pen injector 1.5 mg subcut QWEEK Linzess 145 mcg capsule 145 mcg PO QAM 30 Days Qty: 30 3RF acetaminophen 500 mg tablet 1,000 mg PO Q8H PRN (Reason: Pain) Qty: 180 0RF hydroxyzine pamoate 50 mg capsule 50 mg PO TID PRN (Reason: Anxiety) furosemide 20 mg tablet 20 mg PO DAILY Qty: 30 6RF Referrals: Ashanti August, QUARRYING MANAGER [Primary Care Provider] - (Falls, dehydration) Interventions: ED Discharge Assessment Last Done: 05/24/23 16:28 Discharge Date/Time: 05/24/23 16:29
[2023-05-24 11:55] LABS: C Reactive Protein 0.34 mg/dL (< or = 0.50)
[2023-05-24 12:25] LABS: Troponin-I High Sensitivity < 2.7 ng/L (<3.5-17.0)
[2023-05-24] MEDS: 0.9 % Sodium Chloride 1,000 ML 999 ML IV (12:28)
[2023-05-24 12:31] VITALS: BP 148/76; PULSE 98; RESP 14; TEMP 37; O2SAT 97
--- NOTE | 2023-05-24 12:50 | PC.NURSE ---
20g iv inserted LAC, fluids started as documented, vss. pt's is at her bedside. pt waiting to be taken to ct scan.
--- NOTE | 2023-05-24 15:37 | ECG_ITS ---
Test Reason : WEAKNESS Blood Pressure : / mmHG Vent. Rate : 095 BPM Atrial Rate : 095 BPM P-R Int : 150 ms QRS Dur : 078 ms QT Int : 382 ms P-R-T Axes : 049 -02 048 degrees QTc Int : 480 ms Normal sinus rhythm Possible Left atrial enlargement Possible Anterior infarct , age undetermined Abnormal ECG When compared with ECG of 19-APR-2023 17:16, Borderline criteria for Anterior infarct are now Present QT has lengthened Referred By: Tanmay Alvarado Electronically Signed By:TIMO MORILLO MD
[2023-05-24 16:28] VITALS: BP 154/92; PULSE 98; RESP 16; O2SAT 95
== END 2023-05-24 16:29 | disposition home or self-care (01) ==
PROVIDERS: Emergency Provider Emergency Medicine; PCP Registered Nurse
DX: R53.1 Weakness (principal); R29.6 Repeated falls; Z91.81 History of falling; Z11.52 Encounter for screening for COVID-19; E11.9 Type 2 diabetes mellitus without complications; K74.60 Unspecified cirrhosis of liver; J44.9 Chronic obstructive pulmonary disease, unspecified; Z79.02 Long term (current) use of antithrombotics/antiplatelets; Z79.899 Other long term (current) drug therapy; Z79.85 Long-term (current) use of injectable non-insulin antidiabetic drugs
CPT/HCPCS: 36415; 51798; 70450; 72125; 80048; 80307; 81001; 84484; 85025; 86140; 87502; 87635; 93005; 96360; 96361; 99284; 99285

== ENCOUNTER → 2023-05-24 15:37 | Outpatient (BNV) | payer OTHER, SELFPAY | PROVIDERS: Emergency Provider Emergency Medicine; PCP Registered Nurse; Visit Provider Internal Medicine Cardiovascular Disease | DX: R94.31 Abnormal electrocardiogram [ECG] [EKG] (principal) | CPT/HCPCS: 93010 ==

== ENCOUNTER 2023-07-20 11:54 | Inpatient (IN) | payer OTHER, SELFPAY ==
[2023-07-20] VITALS (7 sets, daily range): BP systolic 91–112; BP diastolic 49–72; PULSE 77–88; RESP 17–18; TEMP 37.3–38; O2SAT 93–96; BMI 31.1
--- NOTE | ~2023-07-20 | CT_ITS ---
EXAMINATION: CT ABDOMEN AND PELVIS WITHOUT CONTRAST CLINICAL INFORMATION: Bacteremia and UTI COMPARISON: CT abdomen pelvis 04/19/2023 TECHNIQUE: Multidetector volumetric imaging was performed from the superior aspect of the liver through the pubic symphysis. Sagittal and coronal reformatted images were obtained on the technologist's workstation. This CT examination was performed using dose optimization techniques as appropriate, variously including the following: *Automated exposure control *Adjustment of mA and/or kV according to patient size (this includes techniques or standardized protocols for targeted exams where dose is matched to indication/reason for exam; i.e. extremities or head) *Use of iterative reconstruction technique DLP: 598 mGy-cm FINDINGS: LUNG BASES: The visualized lung bases are unremarkable. LIVER, GALLBLADDER, AND BILIARY TREE: The liver is enlarged measuring 18.9 cm in greatest cephalocaudad dimension with decreased attenuation consistent with hepatic steatosis. The liver border is slightly nodular. No focal hepatic lesion or biliary ductal dilatation is present. Status post cholecystectomy. PANCREAS: Unremarkable. SPLEEN: Mild splenomegaly measuring 13.3 cm in greatest transverse dimension ADRENAL GLANDS: Unremarkable. KIDNEYS AND URETERS: The kidneys are normal in size, shape, and attenuation. There is minimal fullness of the right intrarenal collecting system. BLADDER: Gas is present in the bladder. GASTROINTESTINAL TRACT: Diverticular are seen scattered throughout the colon. There is no evidence of diverticulitis. The small and large bowel are otherwise unremarkable. The appendix is unremarkable. ABDOMINAL WALL: There are 2 small supraumbilical ventral hernias seen containing only fat (4:431 and 494). There is a small umbilical hernia seen with associated diastases of the rectus muscles. An unobstructed loop of small bowel protrudes into this. LYMPH NODES: No retroperitoneal lymphadenopathy. VASCULAR: Minimal atherosclerotic changes are present in the aorta and iliac vessels. There is no evidence of an abdominal aortic aneurysm. Both ovarian veins are dilated measuring 1.1 cm on the right and 1.0 cm on the left. No large pelvic varices are seen. PELVIC VISCERA: The uterus and adnexa are unremarkable aside from the presence of a coarse calcification in the uterus consistent with the presence of fibroids. OSSEOUS STRUCTURES: There is posterior fixation at L4-L5. There has been prior kyphoplasty at L2 with cement in place. There is a compression fracture of the superior endplate of the T8 vertebral body unchanged when compared to 04/19/2023 CT/CT abdomen pelvis wo IV con IMPRESSION: 1. A underlying cause for the patient's bacteremia and UTI has not been found. Air is seen within the bladder can be associated with infections. Please correlate with UA and culture and 2. Incidental note made of an enlarged fatty liver with mildly nodular border and associated mild splenomegaly, colonic diverticulosis without diverticulitis, small ventral hernias, dilated ovarian veins and other findings described above. Fleischner guidelines were followed.
--- NOTE | ~2023-07-20 | CT_ITS ---
EXAMINATION: CT HEAD WITHOUT CONTRAST CLINICAL INFORMATION: Encephalopathy. COMPARISON: CT dated 05/24/2023. TECHNIQUE: Contiguous axial imaging was performed from the skullbase to vertex without intravenous administration of contrast. This CT examination was performed using dose optimization techniques as appropriate, variously including the following: *Automated exposure control *Adjustment of mA and/or kV according to patient size (this includes techniques or standardized protocols for targeted exams where dose is matched to indication/reason for exam; i.e. extremities or head) *Use of iterative reconstruction technique DLP: 487 mGy-cm. FINDINGS: There is no evidence of acute intracranial hemorrhage or territorial infarction. No abnormal mass effect or midline shift is seen. Tillman to white matter differentiation is well preserved. No extra-axial fluid collections are identified. The ventricles are normal in size. There is no abnormal attenuation within the brain parenchyma. The soft tissues are normal. There are moderate degenerative changes in the left temporomandibular joint. The mastoid air cells and visualized portions of the paranasal sinuses are well aerated. CT/CT head/brain wo IV con IMPRESSION: No acute intracranial pathology.
--- NOTE | 2023-07-20 12:04 | ECG_ITS ---
Test Reason : HYPERKALEMIA Blood Pressure : / mmHG Vent. Rate : 081 BPM Atrial Rate : 081 BPM P-R Int : 146 ms QRS Dur : 080 ms QT Int : 404 ms P-R-T Axes : 057 009 054 degrees QTc Int : 469 ms Normal sinus rhythm Normal ECG When compared with ECG of 24-MAY-2023 15:52, Borderline criteria for Anterior infarct are no longer Present Referred By: Jade Pugh Electronically Signed By:LISA JARRETT
--- NOTE | 2023-07-20 12:55 | ED.GENADULT ---
HPI - General Adult General Chief complaint: General Medical Stated complaint: FTT PER EMS Time Seen by Provider: 07/20/23 11:56 Source: patient and EMS Mode of arrival: EMS Limitations: altered mental status History of Present Illness HPI narrative: patient comes to the emergency room by EMS. According to EMS, the patient's reported that the patient has recently diagnosed with dementia. the reported that the patient has been declining rapidly over the last couple of months. Patient had eating and drinking well. Patient more confused than usual. Patient's states that he can no longer take care of the patient and is requesting placement for the patient. Patient is awake, alert and oriented x2, on aware of time. Patient states that she has no idea why she is here other than her made her come. Patient has no complaints. Also, per EMS, the patient's said that the patient took all of his zolpidem medications couple of days ago, unknown what amount she took. Patient was not taken to the emergency room per EMS. Related Data Home Medications ?Medication ?Instructions ?Recorded ?Confirmed fenofibrate micronized 134 mg 134 mg PO DAILY 01/21/20 04/19/23 capsule blood sugar diagnostic #10 ea 06/25/20 09/22/22 cholecalciferol (vitamin D3) 50 50 mcg PO DAILY 06/25/20 04/19/23 mcg (2,000 unit) capsule diclofenac sodium 1 % topical gel 2 g topical QID 06/25/20 04/19/23 mirtazapine 45 mg tablet 45 mg PO BEDTIME 06/25/20 04/19/23 atorvastatin 80 mg tablet 80 mg PO BEDTIME 10/17/20 04/19/23 duloxetine 60 mg capsule,delayed 1 cap PO BID 10/17/20 04/19/23 release empagliflozin 10 mg tablet 1 tab PO DAILY diabetes mellitus 01/06/21 04/19/23 (Jardiance) blood-glucose meter (FreeStyle #1 ea 03/02/21 09/22/22 Rodessa Lite kit) inhalational spacing device #1 ea 03/02/21 09/22/22 (Compact Space Chamber) lancets 33 gauge (TRUEplus Lancets) #100 ea 03/02/21 09/22/22 vitamin E 100 unit capsule 1 cap PO DAILY 03/02/21 04/19/23 dulaglutide 1.5 mg/0.5 mL 1.5 mg subcut QWEEK diabetes 08/16/21 04/19/23 subcutaneous pen injector mellitus (Trulicity) hydroxyzine pamoate 50 mg capsule 50 mg PO TID PRN Anxiety 05/05/22 04/19/23 bupropion HCl 150 mg 24 hr tablet, 150 mg PO QAM 04/19/23 04/19/23 extended release clonidine HCl 0.1 mg tablet 0.1 mg PO BID 04/19/23 04/19/23 quetiapine 100 mg tablet 100 mg PO BEDTIME 04/19/23 04/19/23 quetiapine 300 mg tablet 300 mg PO BEDTIME 04/19/23 04/19/23 tizanidine 2 mg tablet 2 mg PO DAILY 04/19/23 04/19/23 tizanidine 2 mg tablet 4 mg PO BEDTIME 04/19/23 04/19/23 Previous Rx's ?Medication ?Instructions ?Recorded albuterol sulfate 90 mcg/actuation 2 puff inhalation Q4-6H PRN 10/07/20 aerosol inhaler shortness of breath or wheezing #8.5 grams fluticasone fur. 200 mcg-umeclid 1 inh inhalation DAILY 30 days #1 01/19/21 62.5 mcg-vilant 25 mcg ea inhalat.powder (Trelegy Ellipta) acetaminophen 500 mg tablet 1,000 mg (2 x 500 mg) PO Q8H PRN 07/06/21 Pain #180 tabs methylcellulose (laxative) 500 mg 1,000 mg (2 x 500 mg) PO DAILY 30 02/11/22 tablet (Fiber Laxative days #60 tabs (methylcellulose)) linaclotide 145 mcg capsule 145 mcg PO QAM 30 days #30 caps 09/22/22 (Linzess) bethanechol chloride 50 mg tablet 50 mg PO BID 90 days #180 tabs 11/24/22 sennosides 8.6 mg tablet (senna) 17.2 mg (2 x 8.6 mg) PO BEDTIME 03/31/23 PRN constipation 30 days #60 tabs ferrous sulfate 325 mg (65 mg 325 mg PO DAILY 90 days #90 tabs 04/06/23 iron) tablet omeprazole 20 mg capsule,delayed 20 mg PO BID #60 caps 01/11/24 release cefuroxime axetil 250 mg tablet 250 mg PO BID #14 tabs 04/21/23 furosemide 20 mg tablet 20 mg PO DAILY #30 tabs 05/11/23 pregabalin 75 mg capsule 75 mg PO TID #90 caps 07/07/23 Allergies Allergy/AdvReac Type Severity Reaction Status Date / Time oxycodone [Percocet] Allergy Intermediate Itching Verified 07/20/23 12:13 Vicodin Allergy Intermediate itching Uncoded 07/20/23 12:13 Review of Systems Review of Systems: Constitutional : No Weight loss, No Fever, No Chills, No Night Sweats, No Fatigue, No Malaise ENT/Mouth : No Hearing loss, No Ear Pain, No Nasal Congestion, No Sinus Pain, No Hoarseness, No sore throat, No Rhinorrhea, No Swallowing Difficulty Eyes: No Eye Pain, No Swelling, No Redness, No Foreign Body, No Discharge, No Vision Changes Cardiovascular : No Chest Pain, No SOB, No Dyspnea on Exertion, No Orthopnea, No Edema, No Palpitations Respiratory : No Cough, No Sputum, No Wheezing, No Smoke Exposure, No Dyspnea Gastrointestinal : No Nausea, No Vomiting, No Diarrhea, No Constipation, No abdominal Pain, No Hematochezia, No Melena Genitourinary : no irregular bleeding, No Dysuria, No Urinary Frequency, No Hematuria, No Urinary Incontinence, No Urgency, No Flank Pain, No Urinary Flow Changes, No Hesitancy Musculoskeletal : No joint pain, No Myalgias, No Joint Swelling Skin : No Skin Lesions, No rash Neuro : No Weakness, No Numbness, No Paresthesias, No Loss of Consciousness, No Dizziness, No Headache Psych : No Anxiety/Panic, No Depression, No SI/HI/AH/VH, No Social Issues, Heme/Lymph: No Bruising, No Bleeding,No Lymphadenopathy Endocrine : No Polyuria, No Polydipsia, No Temperature Intolerance FORMERLY [facility], 1928–1983 Past Medical History Medical History Frequent falls Acute exacerbation of chronic obstructive airways disease Urinary retention with incomplete bladder emptying Steatohepatitis IBS (irritable bowel syndrome) History of colon polyps Dysphagia, pharyngoesophageal phase GERD without esophagitis Hx of hereditary disease Diabetes mellitus Depression Fibromyalgia Surgical History Hx of abdominal surgery History of back surgery History of esophagogastroduodenoscopy (EGD) S/p total knee replacement, bilateral Hx of tubal ligation Hx of cholecystectomy Hx of endoscopy History of colonoscopy Family History Family History Father History of heart attack Hx of type 1 diabetes mellitus Mother Alive and well Social History Social History Household Members: Spouse Housing: Apartment Do you presently have visiting nurse or other home services: Yes Alcohol intake: former Patient Tobacco Use Status: Former Tobacco user Quit Date: 12/02/2020 Tobacco use type: Cigarette Cigarette Packs Per Day: 0.5 Cigarettes Per Day: 10.0 Years Smoked: 25 yrs Advance Directives: Yes Advance Directives on File: Yes Advance Directives Date on File: 10/20/20 service: No Current occupational status: unemployed Physical Exam ED Vital Signs: Vital Signs - 24 hr 07/20/23 12:09 07/20/23 14:08 Temperature 99.2 F 100.4 F Pulse Rate 88 85 Respiratory Rate 18 17 Blood Pressure 112/72 106/53 L Pulse Oximetry 96 94 Oxygen Delivery Method Room Air Room Air BMI result Body Mass Index 31.1 Const Other: Appearance: Alert. Oriented X 2 , unaware of time, states year is 1969, No acute distress. Eyes: Pupils equal, round and reactive to light. ENT: Pharynx normal. Neck: Normal inspection. Neck supple. No lymph nodes noted. No crepitus CVS: Normal heart rate and rhythm. Pulses normal. Normal S1 and S2 Respiratory: No respiratory distress. Breath sounds normal. No Wheezing. No rales Abdomen: Soft and nontender. No rigidity. No distention. Skin: Skin warm and dry. Normal skin color. Normal skin turgor. Extremities: No lower extremity edema. No Lacerations. No Rash Neuro: No motor deficit. No sensory deficit. Moving all extremities. No slurred speech. CN 2 through 12 grossly intact Psych: calm, cooperative, normal affect Course Course Course Narrative: - all of patient's labs are pending - I reviewed patient's past medical record, patient has history of UTI encephalopathy. - If there is no reason for medical admission, patient will need PT case management for placement Medications Administered Discontinued Medications Generic Name Dose Route Start Last Admin Trade Name Jonny PRN Reason Stop Dose Admin Sodium Chloride 2,000 mls @ 999 mls/hr 07/20/23 12:02 07/20/23 13:04 Ns IVCONT 07/20/23 14:02 999 mls/hr .Q2H1M ONE Administration Medical Decision Making Medical Decision Making [facility] Narrative: - My interpretation of labs, normal white blood cell count, slightly more anemic than baseline. Patient's creatinine above normal, today 2.13, baseline 1.3. Patient also has a UTI. Also, patient has encephalopathy. - In April of this year, patient was admitted for similar condition, UTI encephalopathy. Differential Diagnosis Differential Diagnoses: The differential diagnosis associated with the presentation includes ( UTI, encephalopathy, dementia) Admission/Observation Consideration of admission/observation: Escalation of care including admission/observation considered Consult Healthcare Provider Management of the patient was discussed with: Hospitalist Lab Data [facility] Lab Attestation statement: I reviewed the patient's lab results. 07/20/23 13:41 07/20/23 13:41 Labs: Lab Results 07/20/23 07/20/23 Range/Units 13:41 13:58 WBC 8.7 (4.8-10.8) X10*3/uL RBC 4.13 L (4.20-5.50) X10*6/uL Hgb 11.3 L (12.0-16.0) g/dl Hct 35.3 L (37.0-47.0) % MCV 85.5 (80.0-98.0) fL MCH 27.4 (27.0-33.0) pg MCHC 32.0 (31.0-35.0) g/dl RDW 14.5 (11.0-16.0) % Plt Count 132 L D (160-400) X10*3/uL MPV 11.3 (9.4-12.3) fL Immature Gran % (Auto) 1.3 H (0.0-0.4) % Neut % (Auto) 71.6 (45-73) % Lymph % (Auto) 15.8 L (20-40) % Mcpherson % (Auto) 11.1 H (2-11) % Eos % (Auto) 0.0 (0-4) % Baso % (Auto) 0.2 (0-2) % Lymph # (Auto) 1.4 (1.2-4.9) X10*3/uL Mcpherson # (Auto) 1.0 (0.1-1.2) X10*3/uL Eos # (Auto) 0.0 (0.0-0.4) X10*3/uL Baso # (Auto) 0.0 (0.0-0.2) X10*3/uL Abs Immat Gran (auto) 0.11 H (0.00-0.03) X10*3/uL Absolute Neuts (auto) 6.2 (2.0-8.3) x10*3/uL Absolute Nucleated RBC 0.000 (0.0-0.012) X10*3/uL Nucleated RBC % (auto) 0.0 (0.0-0.2) /100WBC Sodium 141 (135-145) mmol/L Potassium 3.7 (3.3-5.1) mmol/L Chloride 110 H (96-108) mmol/L Carbon Dioxide 23 (22-29) mmol/L Anion Gap 12 (12-20) BUN 44 H (9-16) mg/dL Creatinine 2.13 H (0.5-1.4) mg/dL Estim Creat Clear Calc 28.7 Estimated GFR 24 Random Glucose 168 H (60-115) mg/dL Lactic Acid 1.5 (0.5-2.0) mmol/L Calcium 8.9 D (8.4-10.2) mg/dL Magnesium 1.9 (1.6-2.6) mg/dL Total Bilirubin 1.4 H (0.0-1.0) mg/dL Direct Bilirubin 0.9 H (0.0-0.5) mg/dL AST 47 H (5-31) U/L ALT 30 (0-31) U/L Alkaline Phosphatase 70 (39-117) U/L Total Protein 7.0 (6.5-8.0) g/dL Albumin 3.6 (3.5-5.0) g/dL Urine Color Dark Yellow Urine Appearance Turbid Urine pH 5.5 (5.0-9.0) Ur Specific Dexter 1.020 (1.005-1.025) Urine Protein 100 (2+) H (Neg-Trace) mg/dL Urine Glucose (UA) >=1000 H (Negative) mg/dL Urine Ketones Negative (Negative) mg/dL Urine Blood Small (1+) H (Negative) Urine Nitrite Negative (Negative) Ur Leukocyte Esterase Moderate (2+) H (Negative) Urine RBC 0-2 (0-2) /HPF Urine WBC >50 H (0-5) /HPF Ur Squamous Epith Cells 0-2 (0-2) /HPF Urine Bacteria 4+ (None Seen) Hyaline Casts 0-2 (0-2) /LPF Urine Opiates Screen Not Detected (Not Detect) Ur Buprenorphine Scrn Not Detected (Not Detect) ng/mL Ur Oxycodone Screen Not Detected (Not Detect) ng/mL Urine Methadone Screen Not Detected (Not Detect) ng/mL Urine Fentanyl Screen Not Detected (Not Detect) Ur Barbiturates Screen Not Detected (Not Detect) Ur Phencyclidine Scrn Not Detected (Not Detect) Ur Amphetamines Screen Not Detected (Not Detect) U Benzodiazepines Scrn Not Detected (Not Detect) Urine Cocaine Screen Not Detected (Not Detect) U Marijuana (THC) Screen Not Detected (Not Detect) Ethyl Alcohol < 10 mg/dL COVID-19 (SHAY) Negative (Negative) COVID-19 Clin Com See Note Critical Care Time Critical Care Time Critical Care Time: Yes Total Critical Care Time: 75 Attestation: I have personally provided critical care time. Time includes review of lab data, radiology results, discussion with consultants, and monitoring for potential decompensation. Intervention performed as documented. Discharge Plan Discharge Clinical Impression: UTI (urinary tract infection), Encephalopathy, ELIZABET (acute kidney injury) Patient Disposition: Admitted As Inpatient Prescriptions: No Action Fiber Laxative(methylcellulos) 500 mg tablet 1,000 mg PO DAILY 30 Days Qty: 60 2RF bethanechol chloride 50 mg tablet 50 mg PO BID 90 Days Qty: 180 1RF sennosides [senna] 8.6 mg tablet 17.2 mg PO BEDTIME PRN (Reason: constipation) 30 Days Qty: 60 3RF ferrous sulfate 325 mg (65 mg iron) tablet 325 mg PO DAILY 90 Days Qty: 90 1RF omeprazole 20 mg capsule,delayed release(DR/EC) 20 mg PO BID Qty: 60 4RF pregabalin 75 mg capsule 75 mg PO TID Qty: 90 0RF albuterol sulfate 90 mcg/actuation HFA aerosol inhaler 2 puff inhalation Q4-6H PRN (Reason: shortness of breath or wheezing) Qty: 8.5 0RF atorvastatin 80 mg tablet 80 mg PO BEDTIME duloxetine 60 mg capsule,delayed release(DR/EC) 1 cap PO BID Jardiance 10 mg tablet 1 tab PO DAILY clonidine HCl 0.1 mg tablet 0.1 mg PO BID tizanidine 2 mg tablet 2 mg PO DAILY quetiapine 100 mg tablet 100 mg PO BEDTIME bupropion HCl 150 mg tablet extended release 24 hr 150 mg PO QAM quetiapine 300 mg tablet 300 mg PO BEDTIME tizanidine 2 mg tablet 4 mg PO BEDTIME cefuroxime axetil 250 mg tablet 250 mg PO BID Qty: 14 0RF fenofibrate micronized 134 mg capsule 134 mg PO DAILY (DME) blood sugar diagnostic Strip See Rx Instructions Not Applicable BID Qty: 10 Rx Instructions: As directed mirtazapine 45 mg tablet 45 mg PO BEDTIME cholecalciferol (vitamin D3) 50 mcg (2,000 unit) capsule 50 mcg PO DAILY diclofenac sodium 1 % gel 2 g topical QID Hold Instructions: Resume on 01/20/21. vitamin E 100 unit capsule 1 cap PO DAILY (DME) blood-glucose meter [FreeStyle Rodessa Lite] Kit See Rx Instructions .ROUTE .MEDSUPPLY Qty: 1 Rx Instructions: As directed (DME) Compact Space Chamber Spacer See Rx Instructions .ROUTE .MEDSUPPLY Qty: 1 Rx Instructions: As directed (DME) lancets [TRUEplus Lancets] 33 gauge misc See Rx Instructions Not Applicable BID Qty: 100 Rx Instructions: As directed Trelegy Ellipta 200-62.5-25 mcg blister with device 1 inh inhalation DAILY 30 Days Qty: 1 6RF Trulicity 1.5 mg/0.5 mL pen injector 1.5 mg subcut QWEEK Linzess 145 mcg capsule 145 mcg PO QAM 30 Days Qty: 30 3RF acetaminophen 500 mg tablet 1,000 mg PO Q8H PRN (Reason: Pain) Qty: 180 0RF hydroxyzine pamoate 50 mg capsule 50 mg PO TID PRN (Reason: Anxiety) furosemide 20 mg tablet 20 mg PO DAILY Qty: 30 6RF Print Language: Malawian
[2023-07-20] MEDS: 0.9 % Sodium Chloride 2,000 ML 999 ML IVCONT (13:04)
[2023-07-20 13:52] LABS: MANUAL DIFF FLAG NO
[2023-07-20 13:55] LABS: Basophils Percent Auto 0.2 % (0-2); Hematocrit 35.3 % (37.0-47.0); Hemoglobin 11.3 g/dl (12.0-16.0); Imm Gran Abs Auto 0.11 X10*3/uL (0.00-0.03); Imm Gran Pct Auto 1.3 % (0.0-0.4); Lymphocytes Absolute Auto 1.4 X10*3/uL (1.2-4.9); Lymphocytes Percent Auto 15.8 % (20-40); Mean Corpuscular Hemoglobin 27.4 pg (27.0-33.0); Mean Corpuscular Volume 85.5 fL (80.0-98.0); Mean Platelet Volume 11.3 fL (9.4-12.3); Monocytes Percent Auto 11.1 % (2-11); Neutrophils Absolute Auto 6.2 x10*3/uL (2.0-8.3); Neutrophils Percent Auto 71.6 % (45-73); Platelet Count 132 X10*3/uL (160-400); Red Blood Count 4.13 X10*6/uL (4.20-5.50); Red Cell Distribution Width 14.5 % (11.0-16.0); White Blood Count 8.7 X10*3/uL (4.8-10.8)
[2023-07-20 14:04] LABS: Lactic Acid 1.5 mmol/L (0.5-2.0)
[2023-07-20 14:09] LABS: Alanine Aminotransferase 30 U/L (0-31); Albumin Level 3.6 g/dL (3.5-5.0); Alkaline Phosphatase 70 U/L (39-117); Anion Gap 12 (12-20); Aspartate Amino Transferase 47 U/L (5-31); Bilirubin Direct 0.9 mg/dL (0.0-0.5); Bilirubin Total 1.4 mg/dL (0.0-1.0); Blood Urea Nitrogen 44 mg/dL (9-16); Calcium 8.9 mg/dL (8.4-10.2); Carbon Dioxide 23 mmol/L (22-29); Chloride 110 mmol/L (96-108); Creatinine Clr Calc Pharmacy 28.7; Estimated Glomerular Filt Rate 24; Glucose Random 168 mg/dL (60-115); Magnesium 1.9 mg/dL (1.6-2.6); Potassium 3.7 mmol/L (3.3-5.1); Sodium 141 mmol/L (135-145)
[2023-07-20 14:11] LABS: Ethanol < 10 mg/dL
[2023-07-20 14:12] LABS: Appearance Urine Turbid; Color Urine Dark Yellow; Glucose Urine UA >=1000 mg/dL (Negative); Leukocyte Esterase Urine Moderate (2+) (Negative); Nitrite Urine Negative (Negative); PH 5.5 (5.0-9.0); UMIC TRIGGER UACC YES; Urine Blood Small (1+) (Negative); Urine Ketones Negative (Negative); Urine Protein 100 (2+) mg/dL (Neg-Trace)
[2023-07-20 14:13] LABS: COVID-19 Test Negative (Negative); IDNOW Serial# 152EDE1D
[2023-07-20 14:23] LABS: Amphetamine Screen Urine Not Detected (Not Detect); Barbiturates, Urine Not Detected (Not Detect); Benzodiazepines Screen Urine Not Detected (Not Detect); Buprenorphine Scr Not Detected (Not Detect); Cannabinoid Screen Urine Not Detected (Not Detect); Cocaine Screen Urine Not Detected (Not Detect); Fentanyl, urine Not Detected (Not Detect); Methadone Screen, Urine Not Detected (Not Detect); Opiate Screen Urine Not Detected (Not Detect); Oxycodone Screen Urine Not Detected (Not Detect); Phencyclidine Screen Urine Not Detected (Not Detect)
[2023-07-20 14:24] LABS: Bacteria Urine 4+ (None Seen); Hyaline Casts Urine 0-2 /LPF (0-2); RBC Urine 0-2 /HPF (0-2); Squamous Epithelial Cell Urine 0-2 /HPF (0-2); UACC Culture Trigger YES; WBC Urine >50 /HPF (0-5)
--- NOTE | 2023-07-20 14:27 | PC.NURSE ---
patient ambulates to bathroom 1 assist with walker
[2023-07-20] MEDS: Acetaminophen 325 MG TABLET 975 MG PO (14:55)
[2023-07-20] MEDS: cefTRIAXone sodium 1 GM in 0.9 % Sodium Chloride 50 ML IV (14:59)
--- NOTE | 2023-07-20 15:25 | PM.IMHP ---
History of Present Illness Date of Service: 07/20/23 Attending physician on admission: Royer Ly Chief Complaint: AMS, hematuria Pt is a 62-year-old female with a PMH significant for?HTN, HLD, qkh-irmhnlo-ubjiumswb type 2 diabetes, GERD, COPD on continuous 2L home O2, and CKD 3 who presents to the ED for evaluation of polyuria, dysuria, hematuria, and increasing confusion for the past few days. Patient is alert and oriented x2 with some underlying confusion, but able to answer most questions appropriately. Family is at bedside to further supplement HPI. Patient has been experiencing polyuria and dysuria for the past few days. This morning patient and family noticed a significant blood in her urine. Family also expresses concerns over pt's increased confusion for the past few days. Report pt has some degree of underlying cognitive dysfunction: Has been forgetful and had difficulty speaking for at least the past year. However, pt has reportedly been more confused the past 2-3 days, seeing people/things that are not there, expressing paranoia about intruders in the house, and being more forgetful/not understanding what is going on. Family also concerned pt has been getting up in the middle of the night and consuming the 's Ambien and Seroquel. Pt states only took one Ambine but reports his month supply is already gone. It is unclear how much medication patient has taken, or for how long, or when last dose was. Possibly has been taking pills for past 3-4 days. also reports pt has been unsteady on her feet and has recent hx of falls at home. Was evaluated in ED on 05/24 for fall at home down the stairs. Unknown if patient has fallen at home more recently than this. In the ED pt with elevated temperature of 100.4 degrees and slightly soft BP of 106/53, vitals otherwise WNL. Labs were significant for H&H 0.3/35.3, creatinine 2.13, and total bilirubin 1.4. UA positive for UTI. Tox screen negative. EKG demonstrated normal sinus rhythm evidence of significant ST elevations. Pt was treated with acetaminophen, ceftriaxone, and IVF. Pt will be admitted to the hospital for treatment and further evaluation acute encephalopathy and ELIZABET in the setting UTI. Review of Systems Review of Systems: Polyuria, dysuria, hematuria, suprapubic pain Increased confusion Weakness, unsteadiness on feet Cough Denies chest pain/pressure, palpitations No shortness of breath Denies fever, chills, nausea, vomiting [facility] Medical History (Updated 07/21/23 @ 16:46 by Tasia Delgado MD) Bacteremia Frequent falls Acute exacerbation of chronic obstructive airways disease Urinary retention with incomplete bladder emptying Steatohepatitis IBS (irritable bowel syndrome) History of colon polyps Dysphagia, pharyngoesophageal phase GERD without esophagitis Hx of hereditary disease Diabetes mellitus Depression Fibromyalgia Family History Father History of heart attack Hx of type 1 diabetes mellitus Mother Alive and well Surgical History Hx of abdominal surgery History of back surgery History of esophagogastroduodenoscopy (EGD) S/p total knee replacement, bilateral Hx of tubal ligation Hx of cholecystectomy Hx of endoscopy History of colonoscopy Social History Household Members: Significant Other Housing: Apartment Do you presently have visiting nurse or other home services: Yes Alcohol intake: former Patient Tobacco Use Status: Former Tobacco user Quit Date: 12/02/2020 Tobacco use type: Cigarette Cigarette Packs Per Day: 0.5 Cigarettes Per Day: 10.0 Years Smoked: 25 yrs Smoked in Last 30 Days: No Patient Interested in Nicotine Replacement: No Patient Given Instructions on How to Stop Smoking: No Second Hand Smoke Exposure: No Use of substances other than those prescribed or required for medical reasons: No Currently Displaying Signs/Symptoms of Drug Intoxication Withdrawal: No Any prior treatment program specific to substance use: No Have you been hit, kicked, punched, or otherwise hurt by someone within the past year? If so, by whom?: No Do you feel safe in your current relationship?: No Current Relationship Is there a partner from a previous relationship who is making you feel unsafe now?: No Are you made to feel afraid or neglected: No Advance Directives: Yes Advance Directives on File: Yes Advance Directives Date on File: 10/20/20 Do you have thoughts of harming others: None Do you have a plan to hurt others: No Plan Recently lost weight without trying: No Eating poorly because of decreased appetite: No Nutrition Risks: No Nutritional Risk Patient : No : No Poor oral hygiene: No service: No Current occupational status: unemployed Meds Allergies Allergy/AdvReac Type Severity Reaction Status Date / Time oxycodone [Percocet] Allergy Intermediate Itching Verified 07/20/23 12:13 Vicodin Allergy Intermediate itching Uncoded 07/20/23 12:13 Active Medications: Current Medications Sodium Chloride (Ns) 1,000 mls @ 999 mls/hr IVCONT .Q1H1M ONE Stop: 07/20/23 15:43 Home Medications ?Medication ?Instructions ?Recorded ?Confirmed ?Last Taken ?Type fenofibrate micronized 134 mg 134 mg PO DAILY 01/21/20 07/20/23 07/20/23 History capsule blood sugar diagnostic #10 ea 06/25/20 09/22/22 Unknown History cholecalciferol (vitamin D3) 50 50 mcg PO DAILY 06/25/20 07/20/23 07/20/23 History mcg (2,000 unit) capsule diclofenac sodium 1 % topical gel 2 g topical QID 06/25/20 07/20/23 07/20/23 History mirtazapine 45 mg tablet 45 mg PO BEDTIME 06/25/20 07/20/23 07/20/23 History atorvastatin 80 mg tablet 80 mg PO BEDTIME 10/17/20 07/20/23 07/20/23 History duloxetine 60 mg capsule,delayed 1 cap PO BID 10/17/20 07/20/23 07/20/23 History release blood-glucose meter (FreeStyle #1 ea 03/02/21 09/22/22 Unknown History [place] Lite kit) inhalational spacing device #1 ea 03/02/21 09/22/22 Unknown History (Compact Space Chamber) lancets 33 gauge (TRUEplus Lancets) #100 ea 03/02/21 09/22/22 Unknown History vitamin E 100 unit capsule 1 cap PO DAILY 03/02/21 07/20/23 07/20/23 History dulaglutide 1.5 mg/0.5 mL 1.5 mg subcut MILLAN diabetes mellitus 08/16/21 07/20/23 07/16/23 [facility] hydroxyzine pamoate 50 mg capsule 50 mg PO TID PRN Anxiety 05/05/22 07/20/23 07/20/23 History bupropion HCl 150 mg 24 hr tablet, 150 mg PO QAM 04/19/23 07/20/23 07/20/23 History extended release clonidine HCl 0.1 mg tablet 0.1 mg PO BID 04/19/23 07/20/23 07/20/23 History tizanidine 2 mg tablet 2 mg PO DAILY 04/19/23 07/20/23 07/20/23 History tizanidine 2 mg tablet 4 mg PO BEDTIME 04/19/23 07/20/23 07/20/23 History amlodipine 5 mg tablet 5 mg PO DAILY 07/20/23 07/20/23 07/20/23 History ascorbic acid (vitamin C) 100 mg 100 mg PO DAILY 07/20/23 07/20/23 07/19/23 History tablet (Vitamin C) empagliflozin 25 mg tablet 25 mg PO DAILY 07/20/23 07/20/23 07/20/23 History (Jardiance) lisinopril 10 mg tablet 10 mg PO QAM 07/20/23 07/20/23 07/20/23 History multivitamin 1 tab PO DAILY 07/20/23 07/20/23 07/19/23 History ondansetron HCl 4 mg tablet 4 mg PO Q12H PRN nausea/vomiting 07/20/23 07/20/23 07/20/23 History quetiapine 400 mg tablet 200 mg PO DAILY 07/20/23 07/20/23 07/20/23 History quetiapine 400 mg tablet 600 mg PO BEDTIME 07/20/23 07/20/23 07/20/23 History Physical Exam Vital Signs and Narrative: Vital Signs: Last Vital Signs Temp 100.4 F 07/20/23 14:08 Pulse 85 07/20/23 14:08 Resp 17 07/20/23 14:08 BP 106/53 L 07/20/23 14:08 Pulse Ox 94 07/20/23 14:08 O2 Del Method Room Air 07/20/23 14:08 BMI result Body Mass Index 31.1 General: AOx2, pleasantly confused, in no acute distress Resp: CTA bilaterally CVS: S1, S2, RRR GI: +BS, no distention, with suprapubic tenderness Skin: Warm, dry Neuro: Cranial nerves II-XII grossly intact bilaterally. Motor grossly intact bilaterally Extremities: No edema Psych: Pleasantly confused Results Labs 07/21/23 04:54 07/21/23 04:54 Labs: Laboratory Results - last 24 hr 07/20/23 07/20/23 13:41 13:58 MCV 85.5 MCH 27.4 MCHC 32.0 RDW 14.5 Plt Count 132 L D MPV 11.3 Immature Gran % (Auto) 1.3 H Neut % (Auto) 71.6 Lymph % (Auto) 15.8 L [place] % (Auto) 11.1 H Eos % (Auto) 0.0 Baso % (Auto) 0.2 Lymph # (Auto) 1.4 [place] # (Auto) 1.0 Eos # (Auto) 0.0 Baso # (Auto) 0.0 Abs Immat Gran (auto) 0.11 H Absolute Neuts (auto) 6.2 Absolute Nucleated RBC 0.000 Nucleated RBC % (auto) 0.0 Anion Gap 12 Estim Creat Clear Calc 28.7 Estimated GFR 24 Random Glucose 168 H Lactic Acid 1.5 Calcium 8.9 D Magnesium 1.9 Total Bilirubin 1.4 H Direct Bilirubin 0.9 H AST 47 H ALT 30 Alkaline Phosphatase 70 Total Protein 7.0 Albumin 3.6 Urine Color Dark Yellow Urine Appearance Turbid Urine pH 5.5 Ur Specific [place] 1.020 Urine Protein 100 (2+) H Urine Glucose (UA) >=1000 H Urine Ketones Negative Urine Blood Small (1+) H Urine Nitrite Negative Ur Leukocyte Esterase Moderate (2+) H Urine RBC 0-2 Urine WBC >50 H Ur Squamous Epith Cells 0-2 Urine Bacteria 4+ Hyaline Casts 0-2 Urine Opiates Screen Not Detected Ur Buprenorphine Scrn Not Detected Ur Oxycodone Screen Not Detected Urine Methadone Screen Not Detected Urine Fentanyl Screen Not Detected Ur Barbiturates Screen Not Detected Ur Phencyclidine Scrn Not Detected Ur Amphetamines Screen Not Detected U Benzodiazepines Scrn Not Detected Urine Cocaine Screen Not Detected U Marijuana (THC) Screen Not Detected Ethyl Alcohol < 10 COVID-19 (SHAY) Negative COVID-19 Clin Com See Note Assessment and Plan (1) ELIZABET (acute kidney injury): Status: Acute (2) UTI (urinary tract infection): Status: Acute (3) Encephalopathy: Status: Acute Plan Pt is a 62-year-old female with a PMH significant for?HTN, HLD, [id number]-zqnaskevo type 2 diabetes, GERD, COPD on continuous 2L home O2, and CKD 3 who presents to the ED for evaluation of polyuria, dysuria, hematuria, and increasing confusion for the past few days. Pt will be admitted to the hospital for treatment and further evaluation acute encephalopathy and ELIZABET in the setting UTI. Acute UTI Pt with polyuria, dysuria, hematuria, and suprapubic tenderness UA positive for UTI Patient does not meet sepsis criteria: No fever, tachycardia, tachypnea, or leukocytosis; lactic acid WNL at 1.5 Will cover with ceftriaxone, started 07/20/2023 Follow CBC Acute encephalopathy Likely multifactorial: UTI, polypharmacy jeanine with overuse of home meds, and underlying degree of dementia Treat as above Will get psych consult for psych med reconciliation Monitor mentation ELIZABET on CKD 3 Creatinine 2.13, up from 1.34 on 05/24/2023 Likely secondary to dehydration from reduced p.o. intake Pt received IVF in the ED Will place on maintenance fluids Follow BMP Generalized weakness/difficulty ambulating Check orthostatics Will get CT of head PT consult Question of underlying dementia Family report cognitive decline over past year OT consult for MoCA Mood disorder Will hold clonidine, hydroxyzine, mirtazapine, and tizanidine Continue quetiapine, duloxetine, buproprion Vgt-ongbjju-khnbyncve type 2 diabetes Continue Jardiance SSI, diabetic diet Will check hemaglobin A1c Full Code Attending:?Dr. Ly DVT Prophylaxis: Lovenox Pt will require a hospitalization of at least two nights for treatment of?acute encephalopathy in the setting acute UTI and ELIZABET. Patient will require hospitalization for administration of IV antibiotics, IV fluid, close monitoring of labs and mental status. Patient will also require consultation with PT/OT and Psychiatry. Quality Stroke Does the patient have a stroke diagnosis?: No VTE Prior VTE?: No VTE Risk Level:: Medical - moderate - high VTE Device Contraindication: Treatment Not Indicated VTE Drug Contraindication: N/A - Med Ordered
[2023-07-20] MEDS: 0.9 % Sodium Chloride 1,000 ML 999 ML IVCONT (15:37)
[2023-07-20] MEDS: 0.9 % Sodium Chloride 1,000 ML 100 ML IVCONT (17:41)
[2023-07-20 17:57] LABS: VBG Base Excess -2.8 mmol/L; VBG HCO3 20 mmol/L (22-26); VBG pCO2 29 mmHg; VBG pH 7.44 (7.32-7.43); VBG pO2 71 mmHg
[2023-07-20 17:58] LABS: Venous Blood Gas Refer to POC result
--- NOTE | 2023-07-20 18:06 | PHA.MEDREC ---
Pharmacy Consult ? Medication Reconciliation Pharmacy has completed the medication reconciliation. Spoke with patient, and daughter all sitting bedside with patient. Patient's provided a med list to the ambulence, but unfortunately lost in transport. Patient suffers from dementia, utlized daughter and to confirm meds. They stated patient is still on bethanechol, however claims history shows a last fill date of 12/08/22. Family confirm Trulicity is taken every Monday, and they apply diclofenac gel to any area of pain (feet, knees, shoulders). Paitent takes tizanidine daily, not PRN. and methylcellulos at bedtime. The wanted me to add metformin to the list, there was no claims history for it. The daughter believes metformin may have been discontinued in her last hospital visits in April and May.
--- NOTE | 2023-07-20 19:09 | PC.NURSE ---
assumed care of the pt at 1900
[2023-07-20 20:06] LABS: Glucose, Whole Blood 139 mg/dL (60-115)
[2023-07-20] MEDS: DULoxetine HCl 60 MG CAPSULE.DR PO (20:11)
[2023-07-20] MEDS: Pregabalin 75 MG CAPSULE PO (20:11)
[2023-07-20] MEDS: buPROPion HCl XL 150 MG TAB.ER.24H PO (20:11)
[2023-07-20] MEDS: Omeprazole 20 MG CAPSULE.DR PO (20:11)
--- NOTE | 2023-07-20 20:14 | PC.NURSE ---
pt moved into room 7, changed into hospital gown, placed on breakfast attendant per MD orders, medicated with bedtime meds per jun. swallows pills whole. A&Ox4, ambulates with walker. offers no current complaints. no insulin bedtime coverage, NS running through iv. plan of care ongoing, call reyes within reach.
--- NOTE | 2023-07-20 20:52 | PM.PSYCN ---
History of Present Illness Date of Service: 07/20/2023 Chief Complaint: Acute encephalopathy, UTI, ?overdose Reason for Consult: confusion/polypharmacy Discussed with referring provider: Yes Sources of Information: patient interviewed, chart reviewed and crisis/core team assessment reviewed HPI Narrative: Mrs. Salmeron is a 62 year-old woman who was brought in by due to increase confusion. Pt appears to be experiencing changes in memory including forgetfulness, impaired orientation for more than one year by now. In the ED, pt found to be febrile. CBC with no leukocitosis, does show normocytic anemia.Elevated BUN 44, Cr 2.31. UA with leukocytosis, blood, protein and glucose suggestive of UTI- started on antibiotic. Head CT shows some mild atrophy and microvascular changes, no acute findings. Pt seen with and daughter by her side. She reports she is here because she has an infection. She is not sure of what type and often looks at family for clarification. it is clear that she has been struggling to retain information regarding why she is here in the hospital and findings of medical results and recommendations. She seems unaware that she has been medically admitted. She reports she feels fine. She is able to tell this chief writer that she is in [place]. She does not know the month or the year. She denies any pain. She reports living with her . reports he is very frustrated as pt often takes his medications. He states he has tried to locked them up but she finds them. It appears she is not looking for a particular medication (to suspect a mediation seeking behavior or addictive behavior) and suspects she may have also taken his cardiac medications in the past. Her daughter reports that over a year pt started to present as more forgetful, calling her and not remembering why she was calling. Then it progress to confusion as to month or situation. Family shared video of pt done few days ago when pt stated it was halloween. She did in that video appear somnolent and sedated. Pt denies SI/HI. Pt's family reports that she has also been stating that there is someone in the house, breaking in and presenting more suspicious and paranoid, on and off again for the past year or so. During my interview with her, she did not appear internally preoccupied nor with over delusional content but it was evident that she is at times comfabulating as not able to retain her information. Family also reports pt has frequent falls and is very unsteady on her feet. Note that family clarify that they were told pt has encephalopathy but they denied that she has been formally diagnosed with dementia. Past Psychiatric History: Inpt: per fam and pt no prior inpt admissions OP: Jeff Gan NP Past medication trials: cymbalta, wellbutrin, remeron, clonidine, seroquel [facility] Medical History (Updated 07/21/23 @ 16:46 by Tasia Delgado MD) Bacteremia Frequent falls Acute exacerbation of chronic obstructive airways disease Urinary retention with incomplete bladder emptying Steatohepatitis IBS (irritable bowel syndrome) History of colon polyps Dysphagia, pharyngoesophageal phase GERD without esophagitis Hx of hereditary disease Diabetes mellitus Depression Fibromyalgia Surgical History Hx of abdominal surgery History of back surgery History of esophagogastroduodenoscopy (EGD) S/p total knee replacement, bilateral Hx of tubal ligation Hx of cholecystectomy Hx of endoscopy History of colonoscopy Diagnostics Vital Signs (24Hr): Vital Signs - 24 hr 07/20/23 12:09 07/20/23 14:08 07/20/23 17:37 Temperature 99.2 F 100.4 F 99.1 F Pulse Rate 88 85 79 Respiratory Rate 18 17 18 Blood Pressure 112/72 106/53 L 91/49 L Pulse Oximetry 96 94 93 Oxygen Delivery Method Room Air Room Air Room Air 07/20/23 19:32 07/20/23 19:33 07/20/23 19:34 Temperature Pulse Rate 77 80 84 Respiratory Rate Blood Pressure 107/63 105/54 L 100/60 Pulse Oximetry Oxygen Delivery Method BMI result Body Mass Index 31.1 Labs 07/21/23 04:54 07/21/23 04:54 Labs: Laboratory Results - last 48 hr 07/20/23 07/20/23 07/20/23 13:41 13:58 17:50 WBC 8.7 RBC 4.13 L Hgb 11.3 L Hct 35.3 L MCV 85.5 MCH 27.4 MCHC 32.0 RDW 14.5 Plt Count 132 L D MPV 11.3 Immature Gran % (Auto) 1.3 H Neut % (Auto) 71.6 Lymph % (Auto) 15.8 L Dundy % (Auto) 11.1 H Eos % (Auto) 0.0 Baso % (Auto) 0.2 Lymph # (Auto) 1.4 Dundy # (Auto) 1.0 Eos # (Auto) 0.0 Baso # (Auto) 0.0 Abs Immat Gran (auto) 0.11 H Absolute Neuts (auto) 6.2 Absolute Nucleated RBC 0.000 Nucleated RBC % (auto) 0.0 VBG pH 7.44 H VBG pCO2 29 VBG pO2 71 VBG HCO3 20 L VBG O2 Saturation 91.0 VBG Base Excess -2.8 Sodium 141 Potassium 3.7 Chloride 110 H Carbon Dioxide 23 Anion Gap 12 BUN 44 H Creatinine 2.13 H Estim Creat Clear Calc 28.7 Estimated GFR 24 POC Glucose Random Glucose 168 H Lactic Acid 1.5 Calcium 8.9 D Magnesium 1.9 Total Bilirubin 1.4 H Direct Bilirubin 0.9 H AST 47 H ALT 30 Alkaline Phosphatase 70 Total Creatine Kinase 581 H Total Protein 7.0 Albumin 3.6 Urine Color Dark Yellow Urine Appearance Turbid Urine pH 5.5 Ur Specific [place] 1.020 Urine Protein 100 (2+) H Urine Glucose (UA) >=1000 H Urine Ketones Negative Urine Blood Small (1+) H Urine Nitrite Negative Ur Leukocyte Esterase Moderate (2+) H Urine RBC 0-2 Urine WBC >50 H Ur Squamous Epith Cells 0-2 Urine Bacteria 4+ Hyaline Casts 0-2 Urine Opiates Screen Not Detected Ur Buprenorphine Scrn Not Detected Ur Oxycodone Screen Not Detected Urine Methadone Screen Not Detected Urine Fentanyl Screen Not Detected Ur Barbiturates Screen Not Detected Ur Phencyclidine Scrn Not Detected Ur Amphetamines Screen Not Detected U Benzodiazepines Scrn Not Detected Urine Cocaine Screen Not Detected U Marijuana (THC) Screen Not Detected Ethyl Alcohol < 10 COVID-19 (SHAY) Negative COVID-19 Clin Com See Note 07/20/23 20:02 WBC RBC Hgb Hct MCV MCH MCHC RDW Plt Count MPV Immature Gran % (Auto) Neut % (Auto) Lymph % (Auto) Dundy % (Auto) Eos % (Auto) Baso % (Auto) Lymph # (Auto) Dundy # (Auto) Eos # (Auto) Baso # (Auto) Abs Immat Gran (auto) Absolute Neuts (auto) Absolute Nucleated RBC Nucleated RBC % (auto) VBG pH VBG pCO2 VBG pO2 VBG HCO3 VBG O2 Saturation VBG Base Excess Sodium Potassium Chloride Carbon Dioxide Anion Gap BUN Creatinine Estim Creat Clear Calc Estimated GFR POC Glucose 139 H Random Glucose Lactic Acid Calcium Magnesium Total Bilirubin Direct Bilirubin AST ALT Alkaline Phosphatase Total Creatine Kinase Total Protein Albumin Urine Color Urine Appearance Urine pH Ur Specific [place] Urine Protein Urine Glucose (UA) Urine Ketones Urine Blood Urine Nitrite Ur Leukocyte Esterase Urine RBC Urine WBC Ur Squamous Epith Cells Urine Bacteria Hyaline Casts Urine Opiates Screen Ur Buprenorphine Scrn Ur Oxycodone Screen Urine Methadone Screen Urine Fentanyl Screen Ur Barbiturates Screen Ur Phencyclidine Scrn Ur Amphetamines Screen U Benzodiazepines Scrn Urine Cocaine Screen U Marijuana (THC) Screen Ethyl Alcohol COVID-19 (SHAY) COVID-19 Clin Com Mental Status Exam Mental Status Exam Narrative: Appearance: wearing hospital gown, fair hygiene, in NAD behavior: pt is pleasant and smiles often Psychomotor: no agitation or retardation noted Speech: mostly clear, some delay in response mostly as she is trying to retrieve information, spontaneous TP: disorganized at times TC: feeling well, and not sure why she is in the hospital Mood: okay Affect: congruent, bright, non labile SI: none HI: none VH/AH: no overt psychosis noted Delusions: no overt delusional content noted during interview. Insight/judgment: impaired x 2. memory/cog: alert, oriented only to person, place but not to situation, month or year. formal testing not completed. Medications Medications Current Medications Acetaminophen (Acetaminophen 325 Mg Tablet) 650 mg PO Q6H PRN PRN Reason: Pain, Mild (Pain Scale 1-3) Albuterol Sulfate (Albuterol Sulfate 90 Mcg 8 Gm Inhaler) 2 puff INHALE RQ4H PRN PRN Reason: shortness of breath or wheezing Ascorbic Acid (Ascorbic Acid 250 Mg Tablet) 125 mg PO DAILY [facility] Benzonatate (Benzonatate 100 Mg Capsule) 100 mg PO TID PRN PRN Reason: Cough Bupropion HCl (Bupropion Hcl Xl 150 Mg Tab.Er.24h) 150 mg PO DAILY [facility] Last Admin: 07/20/23 20:11 Dose: 150 mg Docusate Sodium (Docusate Sodium 100 Mg Capsule) 100 mg PO DAILY PRN PRN Reason: Constipation Duloxetine HCl (Duloxetine Hcl 60 Mg Capsule.Dr) 60 mg PO BID [facility] Last Admin: 07/20/23 20:11 Dose: 60 mg Enoxaparin Sodium (Enoxaparin Sodium 30 Mg/0.3 Ml Syringe) 30 mg SUBCUT Q24H [facility] Last Admin: 07/20/23 17:41 Dose: Not Given Ferrous Sulfate (Ferrous Sulfate 324 Mg Tablet.) 324 mg PO DAILY [facility] Fluticasone/Umeclidinium/Vilanterol (Fluticasone/Umeclidinium/Vilanterol 200/62.5/25 Blst.W.Dev) 1 puff INHALE RDAILY [facility] Glucose (Glucose Gel 15 Gm Gel..Gram.) 15 gm PO Q15M PRN; Protocol PRN Reason: per Hypoglycemia Standing Ord. Sodium Chloride (Ns) 1,000 mls @ 100 mls/hr IVCONT .Q10H [facility] Last Admin: 07/20/23 17:41 Dose: 100 mls/hr Ceftriaxone Sodium 1 gm/ (Sodium Chloride) 50 mls @ 100 mls/hr IV Q24H [facility] Dextrose (D10) 250 mls @ 750 mls/hr IV Q15M PRN; Protocol PRN Reason: per Hypoglycemia Standing Ord. Insulin Human Lispro (Insulin Lispro 100 Unit/Ml 3 Ml Vial) 0 unit SUBCUT QIDACHS [facility]; Protocol Last Admin: 07/20/23 20:05 Dose: Not Given Multivitamins/Vitamin C (Multivitamin Tablet) 1 tab PO DAILY [facility] Non-Formulary Medication (Bethanechol Chloride) 50 mg PO BID [facility] Non-Formulary Medication (Linaclotide [Linzess]) 145 mcg PO DAILY [facility] Omeprazole (Omeprazole 20 Mg Capsule.) 20 mg PO BID@0630,1630 [facility] Last Admin: 07/20/23 20:11 Dose: 20 mg Ondansetron HCl (Ondansetron Hcl 4 Mg/2 Ml Vial) 4 mg IVPUSH Q8H PRN PRN Reason: Nausea and Vomiting Pregabalin (Pregabalin 75 Mg Capsule) 75 mg PO TID [facility] Last Admin: 07/20/23 20:11 Dose: 75 mg Quetiapine Fumarate (Quetiapine Fumarate 200 Mg Tablet) 200 mg PO DAILY [facility] Senna (Sennosides 8.6 Mg Tablet) 17.2 mg PO BEDTIME PRN PRN Reason: constipation Sodium Chloride (0.9 % Sodium Chloride Flush 3 Ml Syringe) 3 ml IVFLUSH QSHIFT [facility] Vitamin D (Cholecalciferol (Vitamin D3) 25 Mcg Tablet) 50 mcg PO DAILY [facility] Allergies Allergies Allergy/AdvReac Type Severity Reaction Status Date / Time oxycodone [Percocet] Allergy Intermediate Itching Verified 07/20/23 12:13 Vicodin Allergy Intermediate itching Uncoded 07/20/23 12:13 Assessment & Plan Assessment & Plan (1) Cognitive impairment: Status: Acute Code(s): R41.89 - Other symptoms and signs involving cognitive functions and awareness Plan Ms. Salmeron is a 62 year-old woman who was brought in by family due to increase in confusion. In the ED, pt found to have ELIZABET and UTI. She is febrile. In terms of mentation, it appears she has been experiencing for the past year or so several cognitive impairments in orientation, confusion, ability to retain information, some paranoia. MRI and head CT do not show acute finding. There is mild atrophy and microvascular changes but these along would not explain degree and pattern of cognitive impairment. Her attention today appears fairly intact. it is also very concerning that despite these impairments, it appears that pt has access to her 's medications and she is randomly taking them. PLAN 1. recommend to simplify medication list to avoid oversedation or causing increase confusion due to polypharmacy- continue cymbalta decrease dose due to current renal function to 60mg po daily. Hold clonidine due to low BP and also check ortho VS. May not need tizanidine but if consider clinicially indicated for muscle relaxant- do not combine with another alpha adrenergic medication like clonidine. lower seroquel dose to 100mg po qhs. d/c mirtazepine. continue wellbutrin 150mg po daily. 2. once pt appears more stable medically, consider OT to complete MOCA- assess cognitive/memory function along with pattern of impairment. 3. check rpr, HIV, lyme as other etiologies of early onset cognitive impairment. Total time managing care of this patient today ____ minutes.
[2023-07-21] VITALS (10 sets, daily range): BP systolic 99–116; BP diastolic 53–78; PULSE 74–89; RESP 15–20; TEMP 36.3–38.1; O2SAT 92–97
--- NOTE | 2023-07-21 01:40 | MHC.EDTECH ---
patient belongings list complete
[2023-07-21] MEDS: 0.9 % Sodium Chloride 1,000 ML 100 ML IVCONT ×2 (05:02→15:25)
[2023-07-21 05:29] LABS: Hematocrit 34.3 % (37.0-47.0); Hemoglobin 10.9 g/dl (12.0-16.0); Mean Corpuscular HGB Conc 31.8 g/dl (31.0-35.0); Mean Corpuscular Hemoglobin 27.4 pg (27.0-33.0); Mean Corpuscular Volume 86.2 fL (80.0-98.0); Mean Platelet Volume 11.5 fL (9.4-12.3); Platelet Count 109 X10*3/uL (160-400); Red Blood Count 3.98 X10*6/uL (4.20-5.50); Red Cell Distribution Width 14.6 % (11.0-16.0); White Blood Count 6.8 X10*3/uL (4.8-10.8)
[2023-07-21 05:44] LABS: Estimated Average Glucose 169 mg/dL; Hemoglobin A1c % 7.5 % (<6.0)
[2023-07-21 05:45] LABS: Anion Gap 14 (12-20); Blood Urea Nitrogen 31 mg/dL (9-16); Calcium 8.3 mg/dL (8.4-10.2); Carbon Dioxide 19 mmol/L (22-29); Chloride 111 mmol/L (96-108); Creatinine Clr Calc Pharmacy 42.5; Estimated Glomerular Filt Rate 37; Glucose Random 122 mg/dL (60-115); Potassium 3.3 mmol/L (3.3-5.1); Sodium 141 mmol/L (135-145)
[2023-07-21 07:26] LABS: Glucose, Whole Blood 99 mg/dL (60-115)
[2023-07-21] MEDS: QUEtiapine Fumarate 200 MG TABLET PO (07:27)
[2023-07-21] MEDS: Cholecalciferol (Vitamin D3) 25 MCG TABLET 50 MCG PO (07:27)
[2023-07-21] MEDS: Omeprazole 20 MG CAPSULE.DR PO ×2 (07:27→15:25)
[2023-07-21] MEDS: 0.9 % Sodium Chloride Flush 3 ML SYRINGE IVFLUSH ×2 (07:30→15:25)
[2023-07-21] MEDS: Pregabalin 75 MG CAPSULE PO ×3 (07:32→21:35)
[2023-07-21] MEDS: DULoxetine HCl 60 MG CAPSULE.DR PO ×2 (07:32→21:35)
[2023-07-21] MEDS: Ascorbic Acid 250 MG TABLET 125 MG PO (07:32)
[2023-07-21] MEDS: Ferrous Sulfate 324 MG TABLET.DR PO (07:33)
[2023-07-21] MEDS: buPROPion HCl XL 150 MG TAB.ER.24H PO (07:33)
[2023-07-21] MEDS: Multivitamin TABLET 1 TAB PO (07:34)
[2023-07-21] MEDS: Fluticasone/Umeclidinium/Vilanterol 200/62.5/25 BLST.W.DEV 1 PUFF INHALE (07:56)
--- NOTE | 2023-07-21 09:46 | MHC.CM.PN ---
Addendum entered by Luciana Hooks RN 07/21/23 09:51: PT'S FAMILY AT BEDSIDE DID ASK CM ABOUT CHANGING RELAY DISPATCHER, PT INSTRUCTED TO CONTACT [facility]. Original Note: IMM 07/21/23, EMR REVIEWED, CM MET W/PT WHO IS A&O, PT REPORTS SHE LIVES W/HER CLYDE, USES A WALKER, WC, SHOWER CHAIR, PRN HOME O2 W/RELIABLE RESPIRATORY, PT HAS [facility] RELAY DISPATCHER 12H/DAY AND 19HR/NIGHT, PT REPORTS HER GOAL IS HOME W/NEW HOME PT HOWEVER MAY BE OPEN TO LOCAL SNF IF RECOMMENDED STR. PT VERIFIES PCP/HCP ON FILE IS CORRECT AND PT IS FULLY COVID VAXED.
[2023-07-21 11:05] LABS: Glucose, Whole Blood 164 mg/dL (60-115)
[2023-07-21 11:05] LABS: Glucose, Whole Blood 107 mg/dL (60-115)
[2023-07-21] MEDS: Enoxaparin Sodium 30 MG/0.3 ML SYRINGE SUBCUT (15:25)
[2023-07-21] MEDS: cefTRIAXone sodium 2 GM in 0.9 % Sodium Chloride 50 ML IV (15:35)
[2023-07-21 16:28] LABS: Thyroid Stimulating Hormone 0.84 uIU/mL (0.32-4.0)
[2023-07-21 16:32] LABS: Glucose, Whole Blood 127 mg/dL (60-115)
--- NOTE | 2023-07-21 16:40 | W.PM.IDCN ---
History of Present Illness Data of Consult Service Date: 07/21/23 Requesting physician: Royer Ly Primary Care Provider: LENA Donaldson HPI Reason for consult: bacteremia,gram negative,prior E coli She presents with dysuria and chills for a day. She has no flank pain. Blood cultures show gram negative rods as does urine. Review of Systems Review of Systems: Yes all other systems are reviewed and are negative PMFSH Past Medical History Medical History (Updated 07/21/23 @ 16:46 by Tasia Delgado MD) Bacteremia Frequent falls Acute exacerbation of chronic obstructive airways disease Urinary retention with incomplete bladder emptying Steatohepatitis IBS (irritable bowel syndrome) History of colon polyps Dysphagia, pharyngoesophageal phase GERD without esophagitis Hx of hereditary disease Diabetes mellitus Depression Fibromyalgia Family History Family History Father History of heart attack Hx of type 1 diabetes mellitus Mother Alive and well Family history: reviewed and not pertinent Surgical History Surgical History Hx of abdominal surgery History of back surgery History of esophagogastroduodenoscopy (EGD) S/p total knee replacement, bilateral Hx of tubal ligation Hx of cholecystectomy Hx of endoscopy History of colonoscopy Social History Social History Household Members: Significant Other Housing: Apartment Do you presently have visiting nurse or other home services: Yes Alcohol intake: former Patient Tobacco Use Status: Former Tobacco user Quit Date: 12/02/2020 Tobacco use type: Cigarette Cigarette Packs Per Day: 0.5 Cigarettes Per Day: 10.0 Years Smoked: 25 yrs Smoked in Last 30 Days: No Patient Interested in Nicotine Replacement: No Patient Given Instructions on How to Stop Smoking: No Second Hand Smoke Exposure: No Use of substances other than those prescribed or required for medical reasons: No Currently Displaying Signs/Symptoms of Drug Intoxication Withdrawal: No Any prior treatment program specific to substance use: No Have you been hit, kicked, punched, or otherwise hurt by someone within the past year? If so, by whom?: No Do you feel safe in your current relationship?: No Current Relationship Is there a partner from a previous relationship who is making you feel unsafe now?: No Are you made to feel afraid or neglected: No Advance Directives: Yes Advance Directives on File: Yes Advance Directives Date on File: 10/20/20 Do you have thoughts of harming others: None Do you have a plan to hurt others: No Plan Recently lost weight without trying: No Eating poorly because of decreased appetite: No Nutrition Risks: No Nutritional Risk Patient : No : No Poor oral hygiene: No service: No Current occupational status: unemployed Meds Allergies Allergy/AdvReac Type Severity Reaction Status Date / Time oxycodone [Percocet] Allergy Intermediate Itching Verified 07/20/23 12:13 Vicodin Allergy Intermediate itching Uncoded 07/20/23 12:13 Active Medications: Current Medications Acetaminophen (Acetaminophen 325 Mg Tablet) 650 mg PO Q6H PRN PRN Reason: Pain, Mild (Pain Scale 1-3) Albuterol Sulfate (Albuterol Sulfate 90 Mcg 8 Gm Inhaler) 2 puff INHALE RQ4H PRN PRN Reason: shortness of breath or wheezing Ascorbic Acid (Ascorbic Acid 250 Mg Tablet) 125 mg PO DAILY [facility] Last Admin: 07/21/23 07:32 Dose: 125 mg Benzonatate (Benzonatate 100 Mg Capsule) 100 mg PO TID PRN PRN Reason: Cough Bupropion HCl (Bupropion Hcl Xl 150 Mg Tab.Er.24h) 150 mg PO DAILY [facility] Last Admin: 07/21/23 07:33 Dose: 150 mg Docusate Sodium (Docusate Sodium 100 Mg Capsule) 100 mg PO DAILY PRN PRN Reason: Constipation Duloxetine HCl (Duloxetine Hcl 60 Mg Capsule.) 60 mg PO BID [facility] Last Admin: 07/21/23 07:32 Dose: 60 mg Enoxaparin Sodium (Enoxaparin Sodium 30 Mg/0.3 Ml Syringe) 30 mg SUBCUT Q24H [facility] Last Admin: 07/21/23 15:25 Dose: 30 mg Ferrous Sulfate (Ferrous Sulfate 324 Mg Tablet.) 324 mg PO DAILY [facility] Last Admin: 07/21/23 07:33 Dose: 324 mg Fluticasone/Umeclidinium/Vilanterol (Fluticasone/Umeclidinium/Vilanterol 200/62.5/25 Blst.W.Dev) 1 puff INHALE RDAILY [facility] Last Admin: 07/21/23 07:56 Dose: 1 puff Glucose (Glucose Gel 15 Gm Gel..Gram.) 15 gm PO Q15M PRN; Protocol PRN Reason: per Hypoglycemia Standing Ord. Sodium Chloride (Ns) 1,000 mls @ 100 mls/hr IVCONT .Q10H [facility] Last Admin: 07/21/23 15:25 Dose: 100 mls/hr Dextrose (D10) 250 mls @ 750 mls/hr IV Q15M PRN; Protocol PRN Reason: per Hypoglycemia Standing Ord. Ceftriaxone Sodium 2 gm/ (Sodium Chloride) 50 mls @ 100 mls/hr IV Q24H [facility] Last Infusion: 07/21/23 16:05 Dose: Infused Insulin Human Lispro (Insulin Lispro 100 Unit/Ml 3 Ml Vial) 0 unit SUBCUT QIDACHS [facility]; Protocol Last Admin: 07/21/23 16:19 Dose: Not Given Multivitamins/Vitamin C (Multivitamin Tablet) 1 tab PO DAILY [facility] Last Admin: 07/21/23 07:34 Dose: 1 tab Non-Formulary Medication (Bethanechol Chloride) 50 mg PO BID [facility] Non-Formulary Medication (Linaclotide [Linzess]) 145 mcg PO DAILY [facility] Omeprazole (Omeprazole 20 Mg Capsule.Dr) 20 mg PO BID@0630,1630 [facility] Last Admin: 07/21/23 15:25 Dose: 20 mg Ondansetron HCl (Ondansetron Hcl 4 Mg/2 Ml Vial) 4 mg IVPUSH Q8H PRN PRN Reason: Nausea and Vomiting Pregabalin (Pregabalin 75 Mg Capsule) 75 mg PO TID [facility] Last Admin: 07/21/23 15:25 Dose: 75 mg Quetiapine Fumarate (Quetiapine Fumarate 200 Mg Tablet) 200 mg PO DAILY [facility] Last Admin: 07/21/23 07:27 Dose: 200 mg Senna (Sennosides 8.6 Mg Tablet) 17.2 mg PO BEDTIME PRN PRN Reason: constipation Sodium Chloride (0.9 % Sodium Chloride Flush 3 Ml Syringe) 3 ml IVFLUSH QSHIFT [facility] Last Admin: 07/21/23 15:25 Dose: 3 ml Vitamin D (Cholecalciferol (Vitamin D3) 25 Mcg Tablet) 50 mcg PO DAILY [facility] Last Admin: 07/21/23 07:27 Dose: 50 mcg Home Medications ?Medication ?Instructions ?Recorded ?Confirmed ?Last Taken ?Type fenofibrate micronized 134 mg 134 mg PO DAILY 01/21/20 07/20/23 07/20/23 History capsule blood sugar diagnostic #10 ea 06/25/20 09/22/22 Unknown History cholecalciferol (vitamin D3) 50 50 mcg PO DAILY 06/25/20 07/20/23 07/20/23 History mcg (2,000 unit) capsule diclofenac sodium 1 % topical gel 2 g topical QID 06/25/20 07/20/23 07/20/23 History mirtazapine 45 mg tablet 45 mg PO BEDTIME 06/25/20 07/20/23 07/20/23 History atorvastatin 80 mg tablet 80 mg PO BEDTIME 10/17/20 07/20/23 07/20/23 History duloxetine 60 mg capsule,delayed 1 cap PO BID 10/17/20 07/20/23 07/20/23 History release blood-glucose meter (FreeStyle #1 ea 03/02/21 09/22/22 Unknown History [place] Lite kit) inhalational spacing device #1 ea 03/02/21 09/22/22 Unknown History (Compact Space Chamber) lancets 33 gauge (TRUEplus Lancets) #100 ea 03/02/21 09/22/22 Unknown History vitamin E 100 unit capsule 1 cap PO DAILY 03/02/21 07/20/23 07/20/23 History dulaglutide 1.5 mg/0.5 mL 1.5 mg subcut MILLAN diabetes mellitus 08/16/21 07/20/23 07/16/23 History subcutaneous pen injector (Trulicity) hydroxyzine pamoate 50 mg capsule 50 mg PO TID PRN Anxiety 05/05/22 07/20/23 07/20/23 History bupropion HCl 150 mg 24 hr tablet, 150 mg PO QAM 04/19/23 07/20/23 07/20/23 History extended release clonidine HCl 0.1 mg tablet 0.1 mg PO BID 04/19/23 07/20/23 07/20/23 History tizanidine 2 mg tablet 2 mg PO DAILY 04/19/23 07/20/23 07/20/23 History tizanidine 2 mg tablet 4 mg PO BEDTIME 04/19/23 07/20/23 07/20/23 History amlodipine 5 mg tablet 5 mg PO DAILY 07/20/23 07/20/23 07/20/23 History ascorbic acid (vitamin C) 100 mg 100 mg PO DAILY 07/20/23 07/20/23 07/19/23 History tablet (Vitamin C) empagliflozin 25 mg tablet 25 mg PO DAILY 07/20/23 07/20/23 07/20/23 History (Jardiance) lisinopril 10 mg tablet 10 mg PO QAM 07/20/23 07/20/23 07/20/23 History multivitamin 1 tab PO DAILY 07/20/23 07/20/23 07/19/23 History ondansetron HCl 4 mg tablet 4 mg PO Q12H PRN nausea/vomiting 07/20/23 07/20/23 07/20/23 History quetiapine 400 mg tablet 200 mg PO DAILY 07/20/23 07/20/23 07/20/23 History quetiapine 400 mg tablet 600 mg PO BEDTIME 07/20/23 07/20/23 07/20/23 History Physical Exam Vital Signs: Vital Signs: Last Vital Signs Temp 98.2 F 07/21/23 16:00 Pulse 81 07/21/23 16:00 Resp 20 07/21/23 16:00 BP 106/56 L 07/21/23 16:00 Pulse Ox 92 07/21/23 16:00 O2 Del Method Room Air 07/21/23 16:00 BMI result Body Mass Index 31.1 Results Labs 07/21/23 04:54 07/21/23 04:54 Labs: Short CBC 07/21/23 Range/Units 04:54 WBC 6.8 (4.8-10.8) X10*3/uL Hgb 10.9 L (12.0-16.0) g/dl Hct 34.3 L (37.0-47.0) % Plt Count 109 L (160-400) X10*3/uL BMP 07/21/23 04:54 Sodium 141 Potassium 3.3 Chloride 111 H Carbon Dioxide 19 L BUN 31 H Creatinine 1.44 H Calcium 8.3 L D Cardiac Enzymes 07/20/23 Range/Units 13:41 Total Creatine Kinase 581 H (26-140) U/L Microbiology Microbiology Results: Microbiology 07/20/23 14:42 Blood - Venous Blood Culture - Preliminary Prelim: GNR Gram Stain only 07/20/23 13:41 Blood - Venous Blood Culture - Preliminary Prelim: GNR Gram Stain only 07/20/23 Unknown Urine clean catch - Urine awad top Urine Culture - Preliminary Gram negative katie Assessment and Plan (1) Encephalopathy: Status: Acute (2) UTI (urinary tract infection): Status: Acute (3) Bacteremia: Status: Acute Plan There is likely E coli infection or Klebsiella or other gram negative infection from urine. There is concern over obstruction with bacteremia. Check CT scan abdomen and pelvis evaluate hydronephrosis/obstruction/nephrolithiasis. Continue Ceftriaxone for now. Repeat blood culture.
--- NOTE | 2023-07-21 16:51 | HO.PM.IMPN ---
Subjective Subjective Date of Service: 07/21/23 Interval History: toxic metabolic Encephalopathy Review of Systems Her mental status somewhat improving Denies any chest pain or shortness of breath or cough or phlegm Urinary symptoms also improving Physical Exam Vital Signs: Vital Signs: Last Vital Signs Temp 98.2 F 07/21/23 16:00 Pulse 81 07/21/23 16:00 Resp 20 07/21/23 16:00 BP 106/56 L 07/21/23 16:00 Pulse Ox 92 07/21/23 16:00 O2 Del Method Room Air 07/21/23 16:00 BMI result Body Mass Index 31.1 Appearance: Alert.? Oriented X2-3 ,improving from yesterday cvs: rrr, [id number] . res: clear to auscultation ,no rhonchii or wheezing abd: no rebound or guarding ,nt, bs present. ext pulses present , no cyanosis neuro: nonfocal. Objective Data Active Medications Acetaminophen (Acetaminophen 325 Mg Tablet) 650 mg PO Q6H PRN PRN Reason: Pain, Mild (Pain Scale 1-3) Albuterol Sulfate (Albuterol Sulfate 90 Mcg 8 Gm Inhaler) 2 puff INHALE RQ4H PRN PRN Reason: shortness of breath or wheezing Ascorbic Acid (Ascorbic Acid 250 Mg Tablet) 125 mg PO DAILY [facility] Last Admin: 07/21/23 07:32 Dose: 125 mg Documented By: JASON Benzonatate (Benzonatate 100 Mg Capsule) 100 mg PO TID PRN PRN Reason: Cough Bupropion HCl (Bupropion Hcl Xl 150 Mg Tab.Er.24h) 150 mg PO DAILY [facility] [place] Last Admin: 07/21/23 07:33 Dose: 150 mg Documented By: JASON Docusate Sodium (Docusate Sodium 100 Mg Capsule) 100 mg PO DAILY PRN PRN Reason: Constipation Duloxetine HCl (Duloxetine Hcl 60 Mg Capsule.) 60 mg PO BID [facility] [place] Last Admin: 07/21/23 07:32 Dose: 60 mg Documented By: JASON Enoxaparin Sodium (Enoxaparin Sodium 30 Mg/0.3 Ml Syringe) 30 mg SUBCUT Q24H [facility] Last Admin: 07/21/23 15:25 Dose: 30 mg Documented By: GREGORY Ferrous Sulfate (Ferrous Sulfate 324 Mg Tablet.) 324 mg PO DAILY [facility] Last Admin: 07/21/23 07:33 Dose: 324 mg Documented By: JASON Fluticasone/Umeclidinium/Vilanterol (Fluticasone/Umeclidinium/Vilanterol 200/62.5/25 Blst.W.Dev) 1 puff INHALE RDAILY [facility] Last Admin: 07/21/23 07:56 Dose: 1 puff Documented By: ZIGGY Glucose (Glucose Gel 15 Gm Gel..Gram.) 15 gm PO Q15M PRN; Protocol PRN Reason: per Hypoglycemia Standing Ord. Sodium Chloride (Ns) 1,000 mls @ 100 mls/hr IVCONT .Q10H [facility] [place] Last Admin: 07/21/23 15:25 Dose: 100 mls/hr Documented By: GREGORY Dextrose (D10) 250 mls @ 750 mls/hr IV Q15M PRN; Protocol PRN Reason: per Hypoglycemia Standing Ord. Ceftriaxone Sodium 2 gm/ (Sodium Chloride) 50 mls @ 100 mls/hr IV Q24H [facility] Last Infusion: 07/21/23 16:05 Dose: Infused Documented By: GREGORY Insulin Human Lispro (Insulin Lispro 100 Unit/Ml 3 Ml Vial) 0 unit SUBCUT QIDACHS [facility] [place]; Protocol Last Admin: 07/21/23 16:19 Dose: Not Given Documented By: GREGORY Non-Admin Reason: poc= 127 Multivitamins/Vitamin C (Multivitamin Tablet) 1 tab PO DAILY [facility] [place] Last Admin: 07/21/23 07:34 Dose: 1 tab Documented By: JASON Non-Formulary Medication (Bethanechol Chloride) 50 mg PO BID [facility] Non-Formulary Medication (Linaclotide [Linzess]) 145 mcg PO DAILY [facility] [place] Omeprazole (Omeprazole 20 Mg Capsule.) 20 mg PO BID@0630,1630 [facility] [place] Last Admin: 07/21/23 15:25 Dose: 20 mg Documented By: GREGORY Ondansetron HCl (Ondansetron Hcl 4 Mg/2 Ml Vial) 4 mg IVPUSH Q8H PRN PRN Reason: Nausea and Vomiting Pregabalin (Pregabalin 75 Mg Capsule) 75 mg PO TID [facility] [place] Last Admin: 07/21/23 15:25 Dose: 75 mg Documented By: GREGORY Quetiapine Fumarate (Quetiapine Fumarate 200 Mg Tablet) 200 mg PO DAILY [facility] Last Admin: 07/21/23 07:27 Dose: 200 mg Documented By: JASON Senna (Sennosides 8.6 Mg Tablet) 17.2 mg PO BEDTIME PRN PRN Reason: constipation Sodium Chloride (0.9 % Sodium Chloride Flush 3 Ml Syringe) 3 ml IVFLUSH QSHIFT [facility] [place] Last Admin: 07/21/23 15:25 Dose: 3 ml Documented By: GREGORY Vitamin D (Cholecalciferol (Vitamin D3) 25 Mcg Tablet) 50 mcg PO DAILY [facility] [place] Last Admin: 07/21/23 07:27 Dose: 50 mcg Documented By: JASON Labs 07/21/23 04:54 07/21/23 04:54 Labs: Laboratory Results - last 24 hr 07/20/23 07/20/23 07/20/23 13:41 17:50 20:02 MCV MCH MCHC RDW Plt Count MPV Absolute Nucleated RBC Nucleated RBC % (auto) VBG pH 7.44 H VBG pCO2 29 VBG pO2 71 VBG HCO3 20 L VBG O2 Saturation 91.0 VBG Base Excess -2.8 Anion Gap Estim Creat Clear Calc Estimated GFR POC Glucose 139 H Random Glucose Estimat Average Glucose 169 Hemoglobin A1c % 7.5 H Calcium Total Creatine Kinase 581 H TSH 07/21/23 07/21/23 07/21/23 04:54 07:21 08:35 MCV 86.2 MCH 27.4 MCHC 31.8 RDW 14.6 Plt Count 109 L MPV 11.5 Absolute Nucleated RBC 0.000 Nucleated RBC % (auto) 0.0 VBG pH VBG pCO2 VBG pO2 VBG HCO3 VBG O2 Saturation VBG Base Excess Anion Gap 14 Estim Creat Clear Calc 42.5 Estimated GFR 37 POC Glucose 99 164 H Random Glucose 122 H Estimat Average Glucose Hemoglobin A1c % Calcium 8.3 L D Total Creatine Kinase TSH 0.84 07/21/23 07/21/23 11:00 16:03 MCV MCH MCHC RDW Plt Count MPV Absolute Nucleated RBC Nucleated RBC % (auto) VBG pH VBG pCO2 VBG pO2 VBG HCO3 VBG O2 Saturation VBG Base Excess Anion Gap Estim Creat Clear Calc Estimated GFR POC Glucose 107 127 H Random Glucose Estimat Average Glucose Hemoglobin A1c % Calcium Total Creatine Kinase TSH Microbiology Microbiology Results: Microbiology 07/20/23 14:42 Blood Culture - Preliminary Blood - Venous Prelim: GNR Gram Stain only 07/20/23 13:41 Blood Culture - Preliminary Blood - Venous Prelim: GNR Gram Stain only 07/20/23 Unknown Urine Culture - Preliminary Urine clean catch - Urine awad top Gram negative katie Assessment and Plan (1) ELIZABET (acute kidney injury): Status: Acute (2) Encephalopathy: Status: Acute Plan 62-year-old female with a PMH significant for?HTN, HLD, alu-utauhil-[id number] type 2 diabetes, GERD, COPD on continuous 2L home O2, and CKD 3 who presents to the ED for evaluation of polyuria, dysuria, hematuria, and increasing confusion for the past few days. Pt will be admitted to the hospital for treatment and further evaluation acute encephalopathy and ELIZABET in the setting UTI. Acute UTI Pt with polyuria, dysuria, hematuria, and suprapubic tenderness UA positive for UTI urine and blood culture -gram neg rods Patient does not meet sepsis criteria: No fever, tachycardia, tachypnea, or leukocytosis; lactic acid WNL at 1.5 continue ceftriaxone, started 07/20/2023 Follow CBC id eval Acute encephalopathy Likely multifactorial: UTI, polypharmacy jeanine with overuse of home meds, and underlying degree of dementia Treat as above Will get psych consult for psych med reconciliation Monitor mentation ELIZABET on CKD 3 Creatinine improving, baseline cr 1.34 on 05/24/2023 Likely secondary to dehydration from reduced p.o. intake Pt received IVF in the ED Will place on maintenance fluids Follow BMP Generalized weakness/difficulty ambulating orthostatics, CT of head PT consult Question of underlying dementia Family report cognitive decline over past year OT consult for MoCA Mood disorder Will hold clonidine, hydroxyzine, mirtazapine, and tizanidine Continue quetiapine, duloxetine, buproprion [id number]-[id number] type 2 diabetes hold Jardiance SSI, diabetic diet hemaglobin A1c 7.5 Full Code DVT Prophylaxis: Lovenox ongoing need hospitalization for treatment of?acute encephalopathy in the setting acute UTI and ELIZABET,grma neg bacteremia- Patient will require hospitalization for administration of IV antibiotics, IV fluid, close monitoring of labs and mental status. Patient will also require consultation with PT/OT and Psychiatry. Quality Stroke Does the patient have a stroke diagnosis?: No VTE Prior VTE?: No VTE Risk Level:: Medical - moderate - high VTE Device Contraindication: Treatment Not Indicated VTE Drug Contraindication: N/A - Med Ordered
[2023-07-21 20:11] LABS: Folate 13.9 ng/mL (> or = 4.0)
[2023-07-21 20:27] LABS: Glucose, Whole Blood 128 mg/dL (60-115)
[2023-07-22] VITALS (8 sets, daily range): BP systolic 112–135; BP diastolic 63–72; PULSE 80–93; RESP 16–20; TEMP 36.5–37.9; O2SAT 92–98
[2023-07-22] MEDS: 0.9 % Sodium Chloride Flush 3 ML SYRINGE IVFLUSH ×4 (02:05→23:31)
[2023-07-22] MEDS: 0.9 % Sodium Chloride 1,000 ML 100 ML IVCONT ×2 (02:05→12:17)
[2023-07-22] MEDS: Omeprazole 20 MG CAPSULE.DR PO ×2 (06:08→16:24)
[2023-07-22 07:11] LABS: Anion Gap 11 (12-20); Blood Urea Nitrogen 16 mg/dL (9-16); Calcium 8.4 mg/dL (8.4-10.2); Carbon Dioxide 20 mmol/L (22-29); Chloride 111 mmol/L (96-108); Creatinine Clr Calc Pharmacy 69.6; Estimated Glomerular Filt Rate > 60; Glucose Random 87 mg/dL (60-115); Potassium 3.8 mmol/L (3.3-5.1); Sodium 138 mmol/L (135-145)
[2023-07-22 07:58] LABS: Glucose, Whole Blood 89 mg/dL (60-115)
[2023-07-22] MEDS: Fluticasone/Umeclidinium/Vilanterol 200/62.5/25 BLST.W.DEV 1 PUFF INHALE (07:58)
[2023-07-22] MEDS: buPROPion HCl XL 150 MG TAB.ER.24H PO (08:38)
[2023-07-22] MEDS: Pregabalin 75 MG CAPSULE PO ×3 (08:38→21:08)
[2023-07-22] MEDS: Multivitamin TABLET 1 TAB PO (08:38)
[2023-07-22] MEDS: Ferrous Sulfate 324 MG TABLET.DR PO (08:38)
[2023-07-22] MEDS: QUEtiapine Fumarate 200 MG TABLET PO (08:38)
[2023-07-22] MEDS: DULoxetine HCl 60 MG CAPSULE.DR PO ×2 (08:38→21:08)
[2023-07-22] MEDS: Cholecalciferol (Vitamin D3) 25 MCG TABLET 50 MCG PO (08:38)
[2023-07-22] MEDS: Bethanechol Chloride 25 MG TABLET 50 MG PO ×2 (08:38→21:08)
[2023-07-22] MEDS: Ascorbic Acid 250 MG TABLET 125 MG PO (08:38)
[2023-07-22 10:23] LABS: Adenovirus PCR Not Detected (Not Detect.); Bordetella parapertussis PCR Not Detected (Not Detect.); Bordetella pertussis PCR Not Detected (Not Detect.); Chlamydia pneumoniae PCR Not Detected (Not Detect.); Coronavirus 229E PCR Not Detected (Not Detect.); Coronavirus HKU1 PCR Not Detected (Not Detect.); Coronavirus NL63 PCR Not Detected (Not Detect.); Coronavirus OC43 PCR Not Detected (Not Detect.); Human metapneumovirus PCR Not Detected (Not Detect.); Influenza A PCR Not Detected (Not Detect.); Influenza B PCR Not Detected (Not Detect.); Mycoplasma pneumoniae PCR Not Detected (Not Detect.); Parainfluenza 1 PCR Not Detected (Not Detect.); Parainfluenza 2 PCR Not Detected (Not Detect.); Parainfluenza 3 PCR Not Detected (Not Detect.); Parainfluenza 4 PCR Not Detected (Not Detect.); RSV PCR Not Detected (Not Detect.); Rhino/Enterovirus PCR Not Detected (Not Detect.)
[2023-07-22 10:29] LABS: SARS-CoV-2 PCR Not Detected (Not Detect.)
[2023-07-22 11:20] LABS: Glucose, Whole Blood 93 mg/dL (60-115)
[2023-07-22] MEDS: Acetaminophen 325 MG TABLET 650 MG PO ×2 (12:16→22:35)
--- NOTE | 2023-07-22 13:48 | P.PNIM_ITS ---
Subjective Subjective Date of Service: 07/22/23 Interval History: encephalopathy ,uti,bacteremia Review of Systems mental status improving no fever or cough Physical Exam 2 Vital Signs: Vital Signs: Last Vital Signs Temp 97.7 F 07/22/23 12:14 Pulse 84 07/22/23 12:14 Resp 20 07/22/23 12:14 BP 128/72 07/22/23 12:14 Pulse Ox 94 07/22/23 12:14 O2 Del Method Room Air 07/22/23 12:14 BMI result Body Mass Index 31.1 Appearance: Alert.? Oriented X2-3 ,improving from yesterday cvs: rrr, [id number] . res: clear to auscultation ,no rhonchii or wheezing abd: no rebound or guarding ,nt, bs present. ext pulses present , no cyanosis neuro: nonfocal. Objective Data Active Medications Acetaminophen (Acetaminophen 325 Mg Tablet) 650 mg PO Q6H PRN PRN Reason: Pain, Mild (Pain Scale 1-3) Last Admin: 07/22/23 12:16 Dose: 650 mg Documented By: LON Albuterol Sulfate (Albuterol Sulfate 90 Mcg 8 Gm Inhaler) 2 puff INHALE RQ4H PRN PRN Reason: shortness of breath or wheezing Ascorbic Acid (Ascorbic Acid 250 Mg Tablet) 125 mg PO DAILY [facility] Last Admin: 07/22/23 08:38 Dose: 125 mg Documented By: GREGORY Benzonatate (Benzonatate 100 Mg Capsule) 100 mg PO TID PRN PRN Reason: Cough Bethanechol Chloride (Bethanechol Chloride 25 Mg Tablet) 50 mg PO BID [facility] Last Admin: 07/22/23 08:38 Dose: 50 mg Documented By: GREGORY Bupropion HCl (Bupropion Hcl Xl 150 Mg Tab.Er.24h) 150 mg PO DAILY [facility] Last Admin: 07/22/23 08:38 Dose: 150 mg Documented By: GREGORY Docusate Sodium (Docusate Sodium 100 Mg Capsule) 100 mg PO DAILY PRN PRN Reason: Constipation Duloxetine HCl (Duloxetine Hcl 60 Mg Capsule.) 60 mg PO BID [facility] Last Admin: 07/22/23 08:38 Dose: 60 mg Documented By: GREGORY Enoxaparin Sodium (Enoxaparin Sodium 30 Mg/0.3 Ml Syringe) 30 mg SUBCUT Q24H [facility] Last Admin: 07/21/23 15:25 Dose: 30 mg Documented By: GREGORY Ferrous Sulfate (Ferrous Sulfate 324 Mg Tablet.) 324 mg PO DAILY [facility] Last Admin: 07/22/23 08:38 Dose: 324 mg Documented By: GREGORY Fluticasone/Umeclidinium/Vilanterol (Fluticasone/Umeclidinium/Vilanterol 200/62.5/25 Blst.W.Dev) 1 puff INHALE RDAILY [facility] Last Admin: 07/22/23 07:58 Dose: 1 puff Documented By: ZIGGY Glucose (Glucose Gel 15 Gm Gel..Gram.) 15 gm PO Q15M PRN; Protocol PRN Reason: per Hypoglycemia Standing Ord. Sodium Chloride (Ns) 1,000 mls @ 100 mls/hr IVCONT .Q10H [facility] Last Admin: 07/22/23 12:17 Dose: 100 mls/hr Documented By: LON Dextrose (D10) 250 mls @ 750 mls/hr IV Q15M PRN; Protocol PRN Reason: per Hypoglycemia Standing Ord. Ceftriaxone Sodium 2 gm/ (Sodium Chloride) 50 mls @ 100 mls/hr IV Q24H [facility] Last Infusion: 07/21/23 16:05 Dose: Infused Documented By: GREGORY Insulin Human Lispro (Insulin Lispro 100 Unit/Ml 3 Ml Vial) 0 unit SUBCUT QIDACHS [facility]; Protocol Last Admin: 07/22/23 11:31 Dose: Not Given Documented By: GREGORY Non-Admin Reason: poc= 93 Multivitamins/Vitamin C (Multivitamin Tablet) 1 tab PO DAILY [facility] Last Admin: 07/22/23 08:38 Dose: 1 tab Documented By: GREGORY Non-Formulary Medication (Linaclotide [Linzess]) 145 mcg PO DAILY [facility] Omeprazole (Omeprazole 20 Mg Capsule.) 20 mg PO BID@0630,1630 [facility] Last Admin: 07/22/23 06:08 Dose: 20 mg Documented By: ANTOIC Ondansetron HCl (Ondansetron Hcl 4 Mg/2 Ml Vial) 4 mg IVPUSH Q8H PRN PRN Reason: Nausea and Vomiting Pregabalin (Pregabalin 75 Mg Capsule) 75 mg PO TID [facility] Last Admin: 07/22/23 08:38 Dose: 75 mg Documented By: GREGORY Quetiapine Fumarate (Quetiapine Fumarate 200 Mg Tablet) 200 mg PO DAILY [facility] Last Admin: 07/22/23 08:38 Dose: 200 mg Documented By: GREGORY Senna (Sennosides 8.6 Mg Tablet) 17.2 mg PO BEDTIME PRN PRN Reason: constipation Sodium Chloride (0.9 % Sodium Chloride Flush 3 Ml Syringe) 3 ml IVFLUSH QSHIFT [facility] Last Admin: 07/22/23 08:39 Dose: 3 ml Documented By: GREGORY Vitamin D (Cholecalciferol (Vitamin D3) 25 Mcg Tablet) 50 mcg PO DAILY [facility] Last Admin: 07/22/23 08:38 Dose: 50 mcg Documented By: GREGORY Labs 07/21/23 04:54 07/22/23 06:24 Labs: Laboratory Results - last 24 hr 07/21/23 07/21/23 07/21/23 04:54 15:49 16:03 Hold Purple Top Anion Gap Estim Creat Clear Calc Estimated GFR POC Glucose 127 H Random Glucose Calcium Folate 13.9 TSH 0.84 Respiratory Panel [place] Adenovirus (Rapid PCR) B.pert (TEM-PCR) B.parapertussis DNA PCR C. pneumoniae DNA (PCR) Coronavirus OC43 (PCR) Coronavirus HKU1 (PCR) Coronavirus 229E (PCR) Coronavirus NL63 (PCR) Human Metapneumovir PCR Influenza A (RT-PCR) Influenza B (RT-PCR) M. pneumoniae (PCR) Parainfluenza 1 (PCR) Parainfluenza 2 (PCR) Parainfluenza 3 (PCR) Parainfluenza 4 (PCR) RSV (PCR) Entero/Rhino (PCR) SARS-CoV-2 RNA (RT-PCR) 07/21/23 07/21/23 07/22/23 16:30 20:21 06:24 Hold Purple Top SEE NOTE Anion Gap 11 L Estim Creat Clear Calc 69.6 Estimated GFR > 60 POC Glucose 128 H Random Glucose 87 Calcium 8.4 Folate TSH Respiratory Panel Dunn See Note Adenovirus (Rapid PCR) Not Detected B.pert (TEM-PCR) Not Detected B.parapertussis DNA PCR Not Detected C. pneumoniae DNA (PCR) Not Detected Coronavirus OC43 (PCR) Not Detected Coronavirus HKU1 (PCR) Not Detected Coronavirus 229E (PCR) Not Detected Coronavirus NL63 (PCR) Not Detected Human Metapneumovir PCR Not Detected Influenza A (RT-PCR) Not Detected Influenza B (RT-PCR) Not Detected M. pneumoniae (PCR) Not Detected Parainfluenza 1 (PCR) Not Detected Parainfluenza 2 (PCR) Not Detected Parainfluenza 3 (PCR) Not Detected Parainfluenza 4 (PCR) Not Detected RSV (PCR) Not Detected Entero/Rhino (PCR) Not Detected SARS-CoV-2 RNA (RT-PCR) Not Detected 07/22/23 07/22/23 07:30 11:08 Hold Purple Top Anion Gap Estim Creat Clear Calc Estimated GFR POC Glucose 89 93 Random Glucose Calcium Folate TSH Respiratory Panel [place] Adenovirus (Rapid PCR) B.pert (TEM-PCR) B.parapertussis DNA PCR C. pneumoniae DNA (PCR) Coronavirus OC43 (PCR) Coronavirus HKU1 (PCR) Coronavirus 229E (PCR) Coronavirus NL63 (PCR) Human Metapneumovir PCR Influenza A (RT-PCR) Influenza B (RT-PCR) M. pneumoniae (PCR) Parainfluenza 1 (PCR) Parainfluenza 2 (PCR) Parainfluenza 3 (PCR) Parainfluenza 4 (PCR) RSV (PCR) Entero/Rhino (PCR) SARS-CoV-2 RNA (RT-PCR) Microbiology Microbiology Results: Microbiology 07/20/23 13:41 Blood Culture - Preliminary Blood - Venous Gram negative katie 07/20/23 Unknown Urine Culture - Final Urine clean catch - Urine awad top Escherichia coli Assessment and Plan (1) ELIZABET (acute kidney injury): Status: Acute (2) Encephalopathy: Status: Acute Plan 62-year-old female with a PMH significant for?HTN, HLD, [id number] type 2 diabetes, GERD, COPD on continuous 2L home O2, and CKD 3 who presents to the ED for evaluation of polyuria, dysuria, hematuria, and increasing confusion for the past few days. Pt will be admitted to the hospital for treatment and further evaluation acute encephalopathy and ELIZABET in the setting UTI. Acute UTI Pt with polyuria, dysuria, hematuria, and suprapubic tenderness UA positive for UTI urine culture -ecoliand blood culture -gram neg rods Patient does not meet sepsis criteria: No fever, tachycardia, tachypnea, or leukocytosis; lactic acid WNL at 1.5 continue ceftriaxone 2 gm iv daily , started 07/20/2023 Follow CBC id eval Acute encephalopathy Likely multifactorial: UTI, polypharmacy jeanine with overuse of home meds, and underlying degree of dementia Treat as above Will get psych consult for psych med reconciliation Monitor mentation ELIZABET on CKD 3 Creatinine improving, baseline cr 1.34 on 05/24/2023 Likely secondary to dehydration from reduced p.o. intake Pt received IVF in the ED Will place on maintenance fluids Follow BMP Generalized weakness/difficulty ambulating orthostatics, CT of head PT consult Question of underlying dementia Family report cognitive decline over past year OT consult for MoCA Mood disorder Will hold clonidine, hydroxyzine, mirtazapine, and tizanidine Continue quetiapine, duloxetine, buproprion [id number]-[id number] type 2 diabetes hold Jardiance SSI, diabetic diet hemaglobin A1c 7.5 Full Code DVT Prophylaxis: Lovenox ongoing need hospitalization for treatment of?acute encephalopathy in the setting acute UTI and ELIZABET,gram neg bacteremia- Patient will require hospitalization for administration of IV antibiotics, IV fluid, close monitoring of labs and mental status. Patient will also require consultation with PT/OT and Psychiatry. Quality Stroke Does the patient have a stroke diagnosis?: No VTE Prior VTE?: No VTE Risk Level:: Medical - moderate - high VTE Device Contraindication: Treatment Not Indicated VTE Drug Contraindication: N/A - Med Ordered
[2023-07-22 16:08] LABS: Glucose, Whole Blood 117 mg/dL (60-115)
[2023-07-22] MEDS: cefTRIAXone sodium 2 GM in 0.9 % Sodium Chloride 50 ML IV (16:23)
[2023-07-22] MEDS: Enoxaparin Sodium 30 MG/0.3 ML SYRINGE SUBCUT (16:28)
[2023-07-22 20:11] LABS: Glucose, Whole Blood 154 mg/dL (60-115)
--- NOTE | 2023-07-22 21:40 | PC.NURSE ---
Patient ambulated to BR with JW Mcmanus,voided without difficulty,bladder scanned for 0 ml
[2023-07-23 00:46] LABS: Vitamin B12 822 pg/mL (200-900)
[2023-07-23 03:08] VITALS: BP 134/76; PULSE 79; RESP 18; TEMP 36.2; O2SAT 96
[2023-07-23] MEDS: Benzonatate 100 MG CAPSULE PO (03:42)
[2023-07-23] MEDS: Omeprazole 20 MG CAPSULE.DR PO ×2 (06:08→15:06)
[2023-07-23 07:28] VITALS: BP 127/78; PULSE 86; RESP 20; TEMP 37.4; O2SAT 95
[2023-07-23 07:31] LABS: Anion Gap 13 (12-20); Blood Urea Nitrogen 16 mg/dL (9-16); Calcium 8.9 mg/dL (8.4-10.2); Carbon Dioxide 18 mmol/L (22-29); Chloride 112 mmol/L (96-108); Creatinine Clr Calc Pharmacy 70.4; Estimated Glomerular Filt Rate > 60; Glucose Random 110 mg/dL (60-115); Potassium 3.7 mmol/L (3.3-5.1); Sodium 139 mmol/L (135-145)
[2023-07-23 07:34] LABS: Glucose, Whole Blood 123 mg/dL (60-115)
[2023-07-23] MEDS: Ascorbic Acid 250 MG TABLET 125 MG PO (09:55)
[2023-07-23] MEDS: Acetaminophen 325 MG TABLET 650 MG PO ×2 (09:55→21:35)
[2023-07-23] MEDS: Bethanechol Chloride 25 MG TABLET 50 MG PO ×2 (09:55→21:35)
[2023-07-23] MEDS: Cholecalciferol (Vitamin D3) 25 MCG TABLET 50 MCG PO (09:55)
[2023-07-23] MEDS: DULoxetine HCl 60 MG CAPSULE.DR PO ×2 (09:55→21:34)
[2023-07-23] MEDS: Multivitamin TABLET 1 TAB PO (09:56)
[2023-07-23] MEDS: QUEtiapine Fumarate 200 MG TABLET PO (09:56)
[2023-07-23] MEDS: 0.9 % Sodium Chloride Flush 3 ML SYRINGE IVFLUSH ×3 (09:56→23:42)
[2023-07-23] MEDS: Pregabalin 75 MG CAPSULE PO ×3 (09:56→21:34)
[2023-07-23] MEDS: buPROPion HCl XL 150 MG TAB.ER.24H PO (09:56)
[2023-07-23] MEDS: Ferrous Sulfate 324 MG TABLET.DR PO (09:56)
[2023-07-23 11:12] LABS: Glucose, Whole Blood 124 mg/dL (60-115)
--- NOTE | 2023-07-23 12:00 | P.PNIM_ITS ---
Subjective Subjective Date of Service: 07/23/23 Interval History: encephalopathy ,uti,bacteremia Review of Systems mental status improving no fever or cough Physical Exam 2 Vital Signs: Vital Signs: Last Vital Signs Temp 99.3 F 07/23/23 07:28 Pulse 86 07/23/23 07:28 Resp 20 07/23/23 07:28 BP 127/78 07/23/23 07:28 Pulse Ox 95 07/23/23 07:28 O2 Del Method Room Air 07/23/23 07:28 BMI result Body Mass Index 31.1 Appearance: Alert.? Oriented X2-3 ,improving from yesterday cvs: rrr, [id number] . res: clear to auscultation ,no rhonchii or wheezing abd: no rebound or guarding ,nt, bs present. ext pulses present , no cyanosis neuro: nonfocal. Objective Data Active Medications Acetaminophen (Acetaminophen 325 Mg Tablet) 650 mg PO Q6H PRN PRN Reason: Pain, Mild (Pain Scale 1-3) Last Admin: 07/23/23 09:55 Dose: 650 mg Documented By: LON Albuterol Sulfate (Albuterol Sulfate 90 Mcg 8 Gm Inhaler) 2 puff INHALE RQ4H PRN PRN Reason: shortness of breath or wheezing Ascorbic Acid (Ascorbic Acid 250 Mg Tablet) 125 mg PO DAILY [facility] Last Admin: 07/23/23 09:55 Dose: 125 mg Documented By: LON Benzonatate (Benzonatate 100 Mg Capsule) 100 mg PO TID PRN PRN Reason: Cough Last Admin: 07/23/23 03:42 Dose: 100 mg Documented By: DIPAK Bethanechol Chloride (Bethanechol Chloride 25 Mg Tablet) 50 mg PO BID [facility] Last Admin: 07/23/23 09:55 Dose: 50 mg Documented By: LON Bupropion HCl (Bupropion Hcl Xl 150 Mg Tab.Er.24h) 150 mg PO DAILY [facility] Last Admin: 07/23/23 09:56 Dose: 150 mg Documented By: LON Docusate Sodium (Docusate Sodium 100 Mg Capsule) 100 mg PO DAILY PRN PRN Reason: Constipation Duloxetine HCl (Duloxetine Hcl 60 Mg Capsule.) 60 mg PO BID [facility] Last Admin: 07/23/23 09:55 Dose: 60 mg Documented By: LON Enoxaparin Sodium (Enoxaparin Sodium 30 Mg/0.3 Ml Syringe) 30 mg SUBCUT Q24H [facility] Last Admin: 07/22/23 16:28 Dose: 30 mg Documented By: NILSON Ferrous Sulfate (Ferrous Sulfate 324 Mg Tablet.) 324 mg PO DAILY [facility] Last Admin: 07/23/23 09:56 Dose: 324 mg Documented By: LON Fluticasone/Umeclidinium/Vilanterol (Fluticasone/Umeclidinium/Vilanterol 200/62.5/25 Blst.W.Dev) 1 puff INHALE RDAILY [facility] Last Admin: 07/23/23 08:02 Dose: Not Given Documented By: TATI Non-Admin Reason: Med Not Available Glucose (Glucose Gel 15 Gm Gel..Gram.) 15 gm PO Q15M PRN; Protocol PRN Reason: per Hypoglycemia Standing Ord. Dextrose (D10) 250 mls @ 750 mls/hr IV Q15M PRN; Protocol PRN Reason: per Hypoglycemia Standing Ord. Ceftriaxone Sodium 2 gm/ (Sodium Chloride) 50 mls @ 100 mls/hr IV Q24H [facility] Last Infusion: 07/22/23 17:12 Dose: Infused Documented By: NILSON Insulin Human Lispro (Insulin Lispro 100 Unit/Ml 3 Ml Vial) 0 unit SUBCUT QIDACHS [facility]; Protocol Last Admin: 07/23/23 11:55 Dose: Not Given Documented By: JE Non-Admin Reason: No Insulin Coverage Multivitamins/Vitamin C (Multivitamin Tablet) 1 tab PO DAILY [facility] Last Admin: 07/23/23 09:56 Dose: 1 tab Documented By: LON Non-Formulary Medication (Linaclotide [Linzess]) 145 mcg PO DAILY [facility] Omeprazole (Omeprazole 20 Mg Capsule.) 20 mg PO BID@0630,1630 [facility] Last Admin: 07/23/23 06:08 Dose: 20 mg Documented By: DIPAK Ondansetron HCl (Ondansetron Hcl 4 Mg/2 Ml Vial) 4 mg IVPUSH Q8H PRN PRN Reason: Nausea and Vomiting Pregabalin (Pregabalin 75 Mg Capsule) 75 mg PO TID [facility] Last Admin: 07/23/23 09:56 Dose: 75 mg Documented By: LON Quetiapine Fumarate (Quetiapine Fumarate 200 Mg Tablet) 200 mg PO DAILY [facility] Last Admin: 07/23/23 09:56 Dose: 200 mg Documented By: LON Senna (Sennosides 8.6 Mg Tablet) 17.2 mg PO BEDTIME PRN PRN Reason: constipation Sodium Chloride (0.9 % Sodium Chloride Flush 3 Ml Syringe) 3 ml IVFLUSH QSHIFT [facility] Last Admin: 07/23/23 09:56 Dose: 3 ml Documented By: LON Vitamin D (Cholecalciferol (Vitamin D3) 25 Mcg Tablet) 50 mcg PO DAILY [facility] Last Admin: 07/23/23 09:55 Dose: 50 mcg Documented By: LON Labs 07/21/23 04:54 07/23/23 05:46 Labs: Laboratory Results - last 24 hr 07/21/23 07/22/23 07/22/23 15:49 15:59 20:06 Hold Purple Top Anion Gap Estim Creat Clear Calc Estimated GFR POC Glucose 117 H 154 H Random Glucose Calcium Vitamin B12 822 07/23/23 07/23/23 07/23/23 05:46 07:24 11:08 Hold Purple Top SEE NOTE Anion Gap 13 Estim Creat Clear Calc 70.4 Estimated GFR > 60 POC Glucose 123 H 124 H Random Glucose 110 Calcium 8.9 Vitamin B12 Microbiology Microbiology Results: Microbiology 07/20/23 14:42 Blood Culture - Final Blood - Venous Escherichia coli 07/20/23 13:41 Blood Culture - Final Blood - Venous Escherichia coli 07/20/23 Unknown Urine Culture - Final Urine clean catch - Urine awad top Escherichia coli Assessment and Plan (1) ELIZABET (acute kidney injury): Status: Acute (2) Encephalopathy: Status: Acute Plan 62-year-old female with a PMH significant for?HTN, HLD, [id number] type 2 diabetes, GERD, COPD on continuous 2L home O2, and CKD 3 who presents to the ED for evaluation of polyuria, dysuria, hematuria, and increasing confusion for the past few days. Pt will be admitted to the hospital for treatment and further evaluation acute encephalopathy and ELIZABET in the setting UTI. Acute UTI Pt with polyuria, dysuria, hematuria, and suprapubic tenderness UA positive for UTI urine culture -ecoliand blood culture -gram neg rods Patient does not meet sepsis criteria: No fever, tachycardia, tachypnea, or leukocytosis; lactic acid WNL at 1.5 continue ceftriaxone 2 gm iv daily , started 07/20/2023 Follow CBC id eval Acute encephalopathy Likely multifactorial: UTI, polypharmacy jeanine with overuse of home meds, and underlying degree of dementia Treat as above Will get psych consult for psych med reconciliation Monitor mentation ELIZABET on CKD 3 Creatinine improving, baseline cr 1.34 on 05/24/2023 Likely secondary to dehydration from reduced p.o. intake Pt received IVF in the ED Will place on maintenance fluids Follow BMP Generalized weakness/difficulty ambulating orthostatics, CT of head PT consult Question of underlying dementia Family report cognitive decline over past year OT consult for MoCA-significant cognitive defect added neuro eval-considering encephalopathy vs cognitive defect(? early onset dementia) Mood disorder Will hold clonidine, hydroxyzine, mirtazapine, and tizanidine Continue quetiapine, duloxetine, buproprion [id number]-jlonmsnrt type 2 diabetes hold Jardiance SSI, diabetic diet hemaglobin A1c 7.5 Full Code DVT Prophylaxis: Lovenox ongoing need hospitalization for treatment of?acute encephalopathy in the setting acute UTI and ELIZABET,gram neg bacteremia- Patient will require hospitalization for administration of IV antibiotics, IV fluid, close monitoring of labs and mental status. Patient will also require consultation with PT/OT and Psychiatry. Quality Stroke Does the patient have a stroke diagnosis?: No VTE Prior VTE?: No VTE Risk Level:: Medical - moderate - high VTE Device Contraindication: Treatment Not Indicated VTE Drug Contraindication: N/A - Med Ordered
[2023-07-23] MEDS: cefTRIAXone sodium 2 GM in 0.9 % Sodium Chloride 50 ML IV (15:05)
[2023-07-23 15:24] VITALS: BP 111/69; PULSE 85; RESP 18; TEMP 36.4; O2SAT 96
[2023-07-23 16:20] LABS: Glucose, Whole Blood 126 mg/dL (60-115)
[2023-07-23 19:16] VITALS: BP 126/65; PULSE 96; RESP 18; TEMP 37; O2SAT 96
[2023-07-23 20:28] LABS: Glucose, Whole Blood 158 mg/dL (60-115)
[2023-07-24 02:55] VITALS: BP 124/59; PULSE 73; RESP 18; TEMP 36.5; O2SAT 96
[2023-07-24 05:43] LABS: Hematocrit 35.3 % (37.0-47.0); Hemoglobin 11.5 g/dl (12.0-16.0)
[2023-07-24 05:58] LABS: Anion Gap 12 (12-20); Blood Urea Nitrogen 13 mg/dL (9-16); Calcium 9.5 mg/dL (8.4-10.2); Carbon Dioxide 22 mmol/L (22-29); Chloride 109 mmol/L (96-108); Creatinine Clr Calc Pharmacy 86.3; Estimated Glomerular Filt Rate > 60; Glucose Random 115 mg/dL (60-115); Potassium 3.4 mmol/L (3.3-5.1); Sodium 140 mmol/L (135-145)
[2023-07-24] MEDS: Omeprazole 20 MG CAPSULE.DR PO ×2 (06:03→15:42)
[2023-07-24 07:01] VITALS: BP 139/77; PULSE 92; RESP 20; TEMP 36.4; O2SAT 95
[2023-07-24 07:26] LABS: Glucose, Whole Blood 130 mg/dL (60-115)
--- NOTE | 2023-07-24 07:34 | PC.RT ---
RT called pharmacy and requested new inhaler. Inhaler not in pt room or pyxis.
[2023-07-24] MEDS: Pregabalin 75 MG CAPSULE PO ×3 (08:20→19:11)
[2023-07-24] MEDS: DULoxetine HCl 60 MG CAPSULE.DR PO ×2 (08:20→19:11)
[2023-07-24] MEDS: 0.9 % Sodium Chloride Flush 3 ML SYRINGE IVFLUSH ×3 (08:20→19:11)
[2023-07-24] MEDS: Cholecalciferol (Vitamin D3) 25 MCG TABLET 50 MCG PO (08:20)
[2023-07-24] MEDS: buPROPion HCl XL 150 MG TAB.ER.24H PO (08:20)
[2023-07-24] MEDS: Multivitamin TABLET 1 TAB PO (08:20)
[2023-07-24] MEDS: Bethanechol Chloride 25 MG TABLET 50 MG PO ×2 (08:20→19:10)
[2023-07-24] MEDS: Ferrous Sulfate 324 MG TABLET.DR PO (08:20)
[2023-07-24] MEDS: QUEtiapine Fumarate 200 MG TABLET PO (08:20)
[2023-07-24] MEDS: Acetaminophen 325 MG TABLET 650 MG PO ×2 (08:21→19:11)
[2023-07-24] MEDS: Ascorbic Acid 250 MG TABLET 125 MG PO (08:21)
--- NOTE | 2023-07-24 10:20 | P.CNNE_ITS ---
History of Present Illness Data of Consult Service Date: 07/24/23 Primary Care Provider: LENA Donaldson HPI Reason for consult: Confusion 62-year-old female with a PMH significant for?HTN, HLD, [id number] type 2 diabetes, GERD, COPD on continuous 2L home O2, and CKD 3 who presents to the ED for evaluation of polyuria, dysuria, hematuria, and increasing confusion for the past few days. She was diagnosed with UTI and was being treated. Initially she was noted to be in confused state. She said that she took a dose of Ambien and probably also Seroquel belonging to her before she came to hospital. Review of Systems 2 Review of Systems: Recent UTI type symptoms PMFSH Past Medical History Medical History (Updated 07/21/23 @ 16:46 by Tasia Delgado MD) Bacteremia Frequent falls Acute exacerbation of chronic obstructive airways disease Urinary retention with incomplete bladder emptying Steatohepatitis IBS (irritable bowel syndrome) History of colon polyps Dysphagia, pharyngoesophageal phase GERD without esophagitis Hx of hereditary disease Diabetes mellitus Depression Fibromyalgia Family History Family History Father History of heart attack Hx of type 1 diabetes mellitus Mother Alive and well Family history: reviewed and not pertinent Surgical History Surgical History Hx of abdominal surgery History of back surgery History of esophagogastroduodenoscopy (EGD) S/p total knee replacement, bilateral Hx of tubal ligation Hx of cholecystectomy Hx of endoscopy History of colonoscopy Social History Social History Household Members: Significant Other Housing: Apartment Do you presently have visiting nurse or other home services: Yes Alcohol intake: former Patient Tobacco Use Status: Former Tobacco user Quit Date: 12/02/2020 Tobacco use type: Cigarette Cigarette Packs Per Day: 0.5 Cigarettes Per Day: 10.0 Years Smoked: 25 yrs Smoked in Last 30 Days: No Patient Interested in Nicotine Replacement: No Patient Given Instructions on How to Stop Smoking: No Second Hand Smoke Exposure: No Use of substances other than those prescribed or required for medical reasons: No Currently Displaying Signs/Symptoms of Drug Intoxication Withdrawal: No Any prior treatment program specific to substance use: No Have you been hit, kicked, punched, or otherwise hurt by someone within the past year? If so, by whom?: No Do you feel safe in your current relationship?: No Current Relationship Is there a partner from a previous relationship who is making you feel unsafe now?: No Are you made to feel afraid or neglected: No Advance Directives: Yes Advance Directives on File: Yes Advance Directives Date on File: 10/20/20 Do you have thoughts of harming others: None Do you have a plan to hurt others: No Plan Recently lost weight without trying: No Eating poorly because of decreased appetite: No Nutrition Risks: No Nutritional Risk Patient : No : No Poor oral hygiene: No service: No Current occupational status: unemployed Meds Allergies Allergy/AdvReac Type Severity Reaction Status Date / Time oxycodone [Percocet] Allergy Intermediate Itching Verified 07/20/23 12:13 Vicodin Allergy Intermediate itching Uncoded 07/20/23 12:13 Active Medications: Current Medications Acetaminophen (Acetaminophen 325 Mg Tablet) 650 mg PO Q6H PRN PRN Reason: Pain, Mild (Pain Scale 1-3) Last Admin: 07/24/23 08:21 Dose: 650 mg Albuterol Sulfate (Albuterol Sulfate 90 Mcg 8 Gm Inhaler) 2 puff INHALE RQ4H PRN PRN Reason: shortness of breath or wheezing Ascorbic Acid (Ascorbic Acid 250 Mg Tablet) 125 mg PO DAILY [facility] Last Admin: 07/24/23 08:21 Dose: 125 mg Benzonatate (Benzonatate 100 Mg Capsule) 100 mg PO TID PRN PRN Reason: Cough Last Admin: 07/23/23 03:42 Dose: 100 mg Bethanechol Chloride (Bethanechol Chloride 25 Mg Tablet) 50 mg PO BID [facility] Last Admin: 07/24/23 08:20 Dose: 50 mg Bupropion HCl (Bupropion Hcl Xl 150 Mg Tab.Er.24h) 150 mg PO DAILY [facility] Last Admin: 07/24/23 08:20 Dose: 150 mg Docusate Sodium (Docusate Sodium 100 Mg Capsule) 100 mg PO DAILY PRN PRN Reason: Constipation Duloxetine HCl (Duloxetine Hcl 60 Mg Capsule.Dr) 60 mg PO BID [facility] Last Admin: 07/24/23 08:20 Dose: 60 mg Ferrous Sulfate (Ferrous Sulfate 324 Mg Tablet.) 324 mg PO DAILY [facility] Last Admin: 07/24/23 08:20 Dose: 324 mg Fluticasone/Umeclidinium/Vilanterol (Fluticasone/Umeclidinium/Vilanterol 200/62.5/25 Blst.W.Dev) 1 puff INHALE RDAILY [facility] Last Admin: 07/23/23 08:02 Dose: Not Given Glucose (Glucose Gel 15 Gm Gel..Gram.) 15 gm PO Q15M PRN; Protocol PRN Reason: per Hypoglycemia Standing Ord. Dextrose (D10) 250 mls @ 750 mls/hr IV Q15M PRN; Protocol PRN Reason: per Hypoglycemia Standing Ord. Ceftriaxone Sodium 2 gm/ (Sodium Chloride) 50 mls @ 100 mls/hr IV Q24H [facility] Last Infusion: 07/23/23 15:49 Dose: Infused Insulin Human Lispro (Insulin Lispro 100 Unit/Ml 3 Ml Vial) 0 unit SUBCUT QIDACHS [facility]; Protocol Last Admin: 07/24/23 07:39 Dose: Not Given Multivitamins/Vitamin C (Multivitamin Tablet) 1 tab PO DAILY [facility] Last Admin: 07/24/23 08:20 Dose: 1 tab Non-Formulary Medication (Linaclotide [Linzess]) 145 mcg PO DAILY [facility] Omeprazole (Omeprazole 20 Mg Capsule.) 20 mg PO BID@0630,1630 [facility] Last Admin: 07/24/23 06:03 Dose: 20 mg Ondansetron HCl (Ondansetron Hcl 4 Mg/2 Ml Vial) 4 mg IVPUSH Q8H PRN PRN Reason: Nausea and Vomiting Pregabalin (Pregabalin 75 Mg Capsule) 75 mg PO TID [facility] Last Admin: 07/24/23 08:20 Dose: 75 mg Quetiapine Fumarate (Quetiapine Fumarate 200 Mg Tablet) 200 mg PO DAILY [facility] Last Admin: 07/24/23 08:20 Dose: 200 mg Senna (Sennosides 8.6 Mg Tablet) 17.2 mg PO BEDTIME PRN PRN Reason: constipation Sodium Chloride (0.9 % Sodium Chloride Flush 3 Ml Syringe) 3 ml IVFLUSH QSHIFT [facility] Last Admin: 07/24/23 08:20 Dose: 3 ml Vitamin D (Cholecalciferol (Vitamin D3) 25 Mcg Tablet) 50 mcg PO DAILY [facility] Last Admin: 07/24/23 08:20 Dose: 50 mcg Home Medications ?Medication ?Instructions ?Recorded ?Confirmed ?Last Taken ?Type fenofibrate micronized 134 mg 134 mg PO DAILY 01/21/20 07/20/23 07/20/23 History capsule blood sugar diagnostic #10 ea 06/25/20 09/22/22 Unknown History cholecalciferol (vitamin D3) 50 50 mcg PO DAILY 06/25/20 07/20/23 07/20/23 History mcg (2,000 unit) capsule diclofenac sodium 1 % topical gel 2 g topical QID 06/25/20 07/20/23 07/20/23 History mirtazapine 45 mg tablet 45 mg PO BEDTIME 06/25/20 07/20/23 07/20/23 History atorvastatin 80 mg tablet 80 mg PO BEDTIME 10/17/20 07/20/23 07/20/23 History duloxetine 60 mg capsule,delayed 1 cap PO BID 10/17/20 07/20/23 07/20/23 History release blood-glucose meter (FreeStyle #1 ea 03/02/21 09/22/22 Unknown History [place] Lite kit) inhalational spacing device #1 ea 03/02/21 09/22/22 Unknown History (Compact Space Chamber) lancets 33 gauge (TRUEplus Lancets) #100 ea 03/02/21 09/22/22 Unknown History vitamin E 100 unit capsule 1 cap PO DAILY 03/02/21 07/20/23 07/20/23 History dulaglutide 1.5 mg/0.5 mL 1.5 mg subcut [facility] diabetes mellitus 08/16/21 07/20/23 07/16/23 History subcutaneous pen injector (Trulicity) hydroxyzine pamoate 50 mg capsule 50 mg PO TID PRN Anxiety 05/05/22 07/20/23 07/20/23 History bupropion HCl 150 mg 24 hr tablet, 150 mg PO QAM 04/19/23 07/20/23 07/20/23 History extended release clonidine HCl 0.1 mg tablet 0.1 mg PO BID 04/19/23 07/20/23 07/20/23 History tizanidine 2 mg tablet 2 mg PO DAILY 04/19/23 07/20/23 07/20/23 History tizanidine 2 mg tablet 4 mg PO BEDTIME 04/19/23 07/20/23 07/20/23 History amlodipine 5 mg tablet 5 mg PO DAILY 07/20/23 07/20/23 07/20/23 History ascorbic acid (vitamin C) 100 mg 100 mg PO DAILY 07/20/23 07/20/23 07/19/23 History tablet (Vitamin C) empagliflozin 25 mg tablet 25 mg PO DAILY 07/20/23 07/20/23 07/20/23 History (Jardiance) lisinopril 10 mg tablet 10 mg PO QAM 07/20/23 07/20/23 07/20/23 History multivitamin 1 tab PO DAILY 07/20/23 07/20/23 07/19/23 History ondansetron HCl 4 mg tablet 4 mg PO Q12H PRN nausea/vomiting 07/20/23 07/20/23 07/20/23 History quetiapine 400 mg tablet 200 mg PO DAILY 07/20/23 07/20/23 07/20/23 History quetiapine 400 mg tablet 600 mg PO BEDTIME 07/20/23 07/20/23 07/20/23 History Physical Exam 2 Vital Signs: Vital Signs: Last Vital Signs Temp 97.5 F 07/24/23 07:01 Pulse 92 07/24/23 07:01 Resp 20 07/24/23 07:01 BP 139/77 07/24/23 07:01 Pulse Ox 95 07/24/23 07:01 O2 Del Method Room Air 07/24/23 07:01 BMI result Body Mass Index 31.1 Neuro: Other: She is alert and awake with normal spontaneity of speech fluency comprehension and affect. There is no sign of confusion at this time. Deep tendon reflexes are trace to 1+ with flexor plantars. Face is symmetrical. Visual delvalle are full. Results Labs 07/24/23 05:02 07/24/23 05:02 Labs: Short CBC 07/24/23 Range/Units 05:02 Hgb 11.5 L (12.0-16.0) g/dl Hct 35.3 L (37.0-47.0) % BMP 07/24/23 05:02 Sodium 140 Potassium 3.4 Chloride 109 H Carbon Dioxide 22 BUN 13 Creatinine 0.71 Calcium 9.[address] revealed mild cerebral atrophy Microbiology Microbiology Results: Microbiology 07/20/23 14:42 Blood - Venous Blood Culture - Final Escherichia coli 07/20/23 13:41 Blood - Venous Blood Culture - Final Escherichia coli 07/20/23 Unknown Urine clean catch - Urine awad top Urine Culture - Final Escherichia coli Assessment and Plan (1) Encephalopathy: Status: Acute Multifactorial encephalopathy specially triggered by Ambien and maybe also Seroquel does on top of infection. At this time confusion was cleared. She was advised to not take any further Ambien or psychotropic medicines not prescribed for her. Procedures Date of Service Date of Service: 07/24/23
--- NOTE | 2023-07-24 10:48 | P.CDIM_ITS ---
PROVIDER RESPONSE TEXT: To clarify, the appropriate diagnosis supported by the clinical indicators: Toxic metabolic QUERY TEXT: PHYSICIAN'S DOCUMENTATION REQUEST Date of Query: 07/24/2023 10:17 AM EDT Patient Name: Sharri Salmeron Admit Date: 07/20/2023 Dear Royer Ly, A review of the medical record indicates additional documentation may be needed. Please review below and update the documentation accordingly. Clinical Indicators: Progress notes under the Plan: Acute encephalopathy likely multifactorial: UTI, polypharmacy jeanine with overuse of home meds, and underlying degree of corrina ntia. Monitor mentation Progress note dated 07/20 - Interval History: toxic metabolic encephalopathy Based on the above, please further specify, in the Progress Notes, the known or suspected type of the documented encephalopathy within the body of the Plan area: Metabolic Toxic Toxic metabolic Other (explain) Clinically unable to determine (explain) Thank you, Liset Cruz, CCS, CDIS Use of terms such as suspected, likely, concern for, or probable (associated with a specific diagnosi s that is being evaluated, monitored, or treated as if it exists) are acceptable and can be coded in the inpatient se tting, when documented at the time of discharge. Please use your independent medical judgment in providing your response. THIS QUERY IS PART OF THE PERMANENT MEDICAL RECORD
--- NOTE | 2023-07-24 10:57 | MHC.CM.PN ---
EMR reviewed. Per MD rounds patient not medically cleared for dc. Awaiting ID consult. CM met with patient, who is a&o at this time. Patient requested to add alternate agent to HCP. Completed. PT rec home w/ services, patient prefers [facility] who has accepted. DP: return home w/ and new [facility]. to provide transportation. CM will continue to follow.
[2023-07-24 11:10] LABS: Glucose, Whole Blood 122 mg/dL (60-115)
[2023-07-24] MEDS: Fluticasone/Umeclidinium/Vilanterol 200/62.5/25 BLST.W.DEV 1 PUFF INHALE (11:22)
[2023-07-24 11:23] VITALS: PULSE 85; RESP 16; O2SAT 96
--- NOTE | 2023-07-24 11:30 | P.PNIM_ITS ---
Subjective Subjective Date of Service: 07/24/23 Interval History: Toxic metabolic encephalopathy, possible ?mild cognitive impairment, bacteremia Review of Systems mental status improved -near baseline no fever or cough Physical Exam 2 Vital Signs: Vital Signs: Last Vital Signs Temp 97.5 F 07/24/23 07:01 Pulse 85 07/24/23 11:23 Resp 16 07/24/23 11:23 BP 139/77 07/24/23 07:01 Pulse Ox 95 07/24/23 07:01 O2 Del Method Room Air 07/24/23 07:01 BMI result Body Mass Index 31.1 Appearance: Alert.? Oriented X2-3 ,improving from yesterday cvs: rrr, [id number] . res: clear to auscultation ,no rhonchii or wheezing abd: no rebound or guarding ,nt, bs present. ext pulses present , no cyanosis neuro: nonfocal Objective Data Active Medications Acetaminophen (Acetaminophen 325 Mg Tablet) 650 mg PO Q6H PRN PRN Reason: Pain, Mild (Pain Scale 1-3) Last Admin: 07/24/23 08:21 Dose: 650 mg Documented By: SAMARA Albuterol Sulfate (Albuterol Sulfate 90 Mcg 8 Gm Inhaler) 2 puff INHALE RQ4H PRN PRN Reason: shortness of breath or wheezing Ascorbic Acid (Ascorbic Acid 250 Mg Tablet) 125 mg PO DAILY [facility] Last Admin: 07/24/23 08:21 Dose: 125 mg Documented By: SAMARA Benzonatate (Benzonatate 100 Mg Capsule) 100 mg PO TID PRN PRN Reason: Cough Last Admin: 07/23/23 03:42 Dose: 100 mg Documented By: DIPAK Bethanechol Chloride (Bethanechol Chloride 25 Mg Tablet) 50 mg PO BID [facility] Last Admin: 07/24/23 08:20 Dose: 50 mg Documented By: SAMARA Bupropion HCl (Bupropion Hcl Xl 150 Mg Tab.Er.24h) 150 mg PO DAILY [facility] Last Admin: 07/24/23 08:20 Dose: 150 mg Documented By: SAMARA Docusate Sodium (Docusate Sodium 100 Mg Capsule) 100 mg PO DAILY PRN PRN Reason: Constipation Duloxetine HCl (Duloxetine Hcl 60 Mg Capsule.Dr) 60 mg PO BID [facility] Last Admin: 07/24/23 08:20 Dose: 60 mg Documented By: SAMARA Ferrous Sulfate (Ferrous Sulfate 324 Mg Tablet.) 324 mg PO DAILY [facility] Last Admin: 07/24/23 08:20 Dose: 324 mg Documented By: SAMARA Fluticasone/Umeclidinium/Vilanterol (Fluticasone/Umeclidinium/Vilanterol 200/62.5/25 Blst.W.Dev) 1 puff INHALE RDAILY [facility] Last Admin: 07/24/23 11:22 Dose: 1 puff Documented By: EMMANUELLE Glucose (Glucose Gel 15 Gm Gel..Gram.) 15 gm PO Q15M PRN; Protocol PRN Reason: per Hypoglycemia Standing Ord. Dextrose (D10) 250 mls @ 750 mls/hr IV Q15M PRN; Protocol PRN Reason: per Hypoglycemia Standing Ord. Ceftriaxone Sodium 2 gm/ (Sodium Chloride) 50 mls @ 100 mls/hr IV Q24H [facility] Last Infusion: 07/23/23 15:49 Dose: Infused Documented By: MATT Insulin Human Lispro (Insulin Lispro 100 Unit/Ml 3 Ml Vial) 0 unit SUBCUT QIDACHS [facility]; Protocol Last Admin: 07/24/23 07:39 Dose: Not Given Documented By: SAMARA Non-Admin Reason: No Insulin Coverage Multivitamins/Vitamin C (Multivitamin Tablet) 1 tab PO DAILY [facility] Last Admin: 07/24/23 08:20 Dose: 1 tab Documented By: SAMARA Non-Formulary Medication (Linaclotide [Linzess]) 145 mcg PO DAILY [facility] Omeprazole (Omeprazole 20 Mg Capsule.) 20 mg PO BID@0630,1630 [facility] Last Admin: 07/24/23 06:03 Dose: 20 mg Documented By: DIPAK Ondansetron HCl (Ondansetron Hcl 4 Mg/2 Ml Vial) 4 mg IVPUSH Q8H PRN PRN Reason: Nausea and Vomiting Pregabalin (Pregabalin 75 Mg Capsule) 75 mg PO TID [facility] Last Admin: 07/24/23 08:20 Dose: 75 mg Documented By: SAMARA Quetiapine Fumarate (Quetiapine Fumarate 200 Mg Tablet) 200 mg PO DAILY [facility] Last Admin: 07/24/23 08:20 Dose: 200 mg Documented By: SAMARA Senna (Sennosides 8.6 Mg Tablet) 17.2 mg PO BEDTIME PRN PRN Reason: constipation Sodium Chloride (0.9 % Sodium Chloride Flush 3 Ml Syringe) 3 ml IVFLUSH QSHIFT [facility] Last Admin: 07/24/23 08:20 Dose: 3 ml Documented By: SAMARA Vitamin D (Cholecalciferol (Vitamin D3) 25 Mcg Tablet) 50 mcg PO DAILY [facility] Last Admin: 07/24/23 08:20 Dose: 50 mcg Documented By: SAMARA Labs 07/24/23 05:02 07/24/23 05:02 Labs: Laboratory Results - last 24 hr 07/23/23 07/23/23 07/24/23 16:08 20:05 05:02 Anion Gap 12 Estim Creat Clear Calc 86.3 Estimated GFR > 60 POC Glucose 126 H 158 H Random Glucose 115 Calcium 9.5 D 07/24/23 07/24/23 07:23 11:05 Anion Gap Estim Creat Clear Calc Estimated GFR POC Glucose 130 H 122 H Random Glucose Calcium Microbiology Microbiology Results: Microbiology 07/20/23 14:42 Blood Culture - Final Blood - Venous Escherichia coli 07/20/23 13:41 Blood Culture - Final Blood - Venous Escherichia coli Assessment and Plan (1) ELIZABET (acute kidney injury): Status: Acute (2) Encephalopathy: Status: Acute Plan 62-year-old female with a PMH significant for?HTN, HLD, [id number] type 2 diabetes, GERD, COPD on continuous 2L home O2, and CKD 3 who presents to the ED for evaluation of polyuria, dysuria, hematuria, and increasing confusion for the past few days. Pt will be admitted to the hospital for treatment and further evaluation acute encephalopathy and ELIZABET in the setting UTI. Acute UTI Pt with polyuria, dysuria, hematuria, and suprapubic tenderness UA positive for UTI urine culture -ecoliand blood culture -ecoli repeat blood culture and ct abd added. Patient does not meet sepsis criteria: No fever, tachycardia, tachypnea, or leukocytosis; lactic acid WNL at 1.5 continue ceftriaxone 2 gm iv daily , started 07/20/2023 Follow CBC id eval Acute encephalopathy Likely multifactorial: UTI, polypharmacy jeanine with overuse of home meds, and underlying degree of dementia Treat as above Will get psych consult for psych med reconciliation Monitor mentation ELIZABET on CKD 3 Creatinine improving, baseline cr 1.34 on 05/24/2023 Likely secondary to dehydration from reduced p.o. intake Pt received IVF in the ED Will place on maintenance fluids Follow BMP Generalized weakness/difficulty ambulating orthostatics, CT of head PT consult Question of underlying dementia Family report cognitive decline over past year OT consult for MoCA-significant cognitive defect added neuro eval-considering encephalopathy vs cognitive defect(? early onset dementia) Mood disorder Will hold clonidine, hydroxyzine, mirtazapine, and tizanidine Continue quetiapine, duloxetine, buproprion Osf-[id number] type 2 diabetes hold Jardiance SSI, diabetic diet hemaglobin A1c 7.5 Full Code DVT Prophylaxis: Lovenox ongoing need hospitalization for treatment of?acute encephalopathy in the setting acute UTI and ELIZABET,gram neg bacteremia- Patient will require hospitalization for administration of IV antibiotics, IV fluid, close monitoring of labs and mental status. Patient will also require consultation with PT/OT and Psychiatry. Quality Stroke Does the patient have a stroke diagnosis?: No VTE Prior VTE?: No VTE Risk Level:: Medical - moderate - high VTE Device Contraindication: Treatment Not Indicated VTE Drug Contraindication: N/A - Med Ordered
[2023-07-24 14:05] VITALS: PULSE 103; O2SAT 93
[2023-07-24 14:59] VITALS: BP 113/71; PULSE 81; RESP 18; TEMP 35.9; O2SAT 96
[2023-07-24] MEDS: cefTRIAXone sodium 2 GM in 0.9 % Sodium Chloride 50 ML IV (15:42)
[2023-07-24 16:09] LABS: Glucose, Whole Blood 148 mg/dL (60-115)
[2023-07-24 19:31] VITALS: BP 112/83; PULSE 79; RESP 18; TEMP 36.8; O2SAT 96
[2023-07-24 19:48] LABS: Glucose, Whole Blood 124 mg/dL (60-115)
[2023-07-25 02:42] VITALS: BP 114/56; PULSE 70; RESP 18; TEMP 36; O2SAT 96
[2023-07-25] MEDS: Acetaminophen 325 MG TABLET 650 MG PO (05:19)
[2023-07-25] MEDS: Omeprazole 20 MG CAPSULE.DR PO (05:20)
[2023-07-25 07:25] LABS: Glucose, Whole Blood 112 mg/dL (60-115)
[2023-07-25 07:33] VITALS: BP 136/72; PULSE 72; RESP 18; TEMP 36.6; O2SAT 95
[2023-07-25] MEDS: Fluticasone/Umeclidinium/Vilanterol 200/62.5/25 BLST.W.DEV 1 PUFF INHALE (07:33)
[2023-07-25 07:34] VITALS: PULSE 91; RESP 16; O2SAT 98
[2023-07-25] MEDS: buPROPion HCl XL 150 MG TAB.ER.24H PO (08:54)
[2023-07-25] MEDS: Multivitamin TABLET 1 TAB PO (08:54)
[2023-07-25] MEDS: Ascorbic Acid 250 MG TABLET 125 MG PO (08:54)
[2023-07-25] MEDS: QUEtiapine Fumarate 100 MG TABLET PO (08:54)
[2023-07-25] MEDS: DULoxetine HCl 60 MG CAPSULE.DR PO (08:54)
[2023-07-25] MEDS: Ferrous Sulfate 324 MG TABLET.DR PO (08:54)
[2023-07-25] MEDS: Pregabalin 75 MG CAPSULE PO (08:54)
[2023-07-25] MEDS: Bethanechol Chloride 25 MG TABLET 50 MG PO (08:54)
[2023-07-25] MEDS: Cholecalciferol (Vitamin D3) 25 MCG TABLET 50 MCG PO (08:54)
[2023-07-25] MEDS: 0.9 % Sodium Chloride Flush 3 ML SYRINGE IVFLUSH (08:55)
[2023-07-25 11:19] LABS: Glucose, Whole Blood 114 mg/dL (60-115)
--- NOTE | 2023-07-25 11:55 | PM.DS ---
DS: Providers Provider Date of Service: 07/25/23 Date of admission: 07/20/23 16:33 Primary care physician: LENA Donaldson Consults: 07/20/23 16:17 Consult to Psychiatry Routine Consulting Provider: Psych Covering Reason for consultation: confusion /uti 07/21/23 14:59 Consult to Infectious Diseases Routine Consulting Provider: [facility] Infectious Disease Reason for consultation: uti/gram neg bacteremia Has provider been notified: No 07/23/23 12:03 Consult to Neurology Routine Consulting Provider: [facility] Reason for consultation: encephalopathy vs severe cognitive defect Has provider been notified: No 07/24/23 12:27 Consult to Wound Care Routine Reason for consultation: Left ear and right forearm. DS: Diagnosis Discharge Diagnosis (1) Bacteremia: Status: Acute (2) ELIZABET (acute kidney injury): Status: Acute (3) Encephalopathy: Status: Acute DS: Summary Hospital Course Hospital Course: HPI: Pt is a 62-year-old female with a PMH significant for?HTN, HLD, [id number] type 2 diabetes, GERD, COPD on continuous 2L home O2, and CKD 3 who presents to the ED for evaluation of polyuria, dysuria, hematuria, and increasing confusion for the past few days. Patient is alert and oriented x2 with some underlying confusion, but able to answer most questions appropriately. Family is at bedside to further supplement HPI. Patient has been experiencing polyuria and dysuria for the past few days. This morning patient and family noticed a significant blood in her urine. Family also expresses concerns over pt's increased confusion for the past few days. Report pt has some degree of underlying cognitive dysfunction: Has been forgetful and had difficulty speaking for at least the past year. However, pt has reportedly been more confused the past 2-3 days, seeing people/things that are not there, expressing paranoia about intruders in the house, and being more forgetful/not understanding what is going on. Family also concerned pt has been getting up in the middle of the night and consuming the 's Ambien and Seroquel. Pt states only took one Ambine but reports his month supply is already gone. It is unclear how much medication patient has taken, or for how long, or when last dose was. Possibly has been taking pills for past 3-4 days. also reports pt has been unsteady on her feet and has recent hx of falls at home. Was evaluated in ED on 05/24 for fall at home down the stairs. Unknown if patient has fallen at home more recently than this. In the ED pt with elevated temperature of 100.4 degrees and slightly soft BP of 106/53, vitals otherwise WNL. Labs were significant for H&H 0.3/35.3, creatinine 2.13, and total bilirubin 1.4. UA positive for UTI. Tox screen negative. EKG demonstrated normal sinus rhythm evidence of significant ST elevations. Pt was treated with acetaminophen, ceftriaxone, and IVF. Pt will be admitted to the hospital for treatment and further evaluation acute encephalopathy and ELIZABET in the setting UTI. Hospital course: Patient was admitted with IV antibiotics. Urine culture and blood culture with E coli. Repeat blood culture 07/23 pending at the time of discharge. Mentation improved with IV antibiotics. Patient was evaluated by Neurology and Psychiatry and mood stabilizing medications adjusted. Creatinine improved prior to discharge with crystalloid resuscitation. Patient is stable to be discharged with psych medication adjustments and p.o. Ceftin to complete 14 day course for Gram-negative bacteremia. Status at Discharge Functional status at discharge: uses cane/walker Overall status at discharge: patient is back to baseline Time Attestation Discharge Coordination Time (in mins): 35 minutes Quality: Safe Use of Opioids Does Pt have an Active Cancer Diagnosis on the Problem List?: No Quality: Stroke Does the patient have a stroke diagnosis?: No Physical Exam Vital Signs: Vital Signs: Last Vital Signs Temp 97.8 F 07/25/23 07:33 Pulse 91 07/25/23 07:34 Resp 16 07/25/23 07:34 BP 136/72 07/25/23 07:33 Pulse Ox 95 07/25/23 07:33 O2 Del Method Room Air 07/25/23 07:33 BMI result Body Mass Index 31.1 Appearance: Alert.? Oriented X2-3 ,improving from yesterday cvs: rrr, [id number] . res: clear to auscultation ,no rhonchii or wheezing abd: no rebound or guarding ,nt, bs present. ext pulses present , no cyanosis neuro: nonfocal DS: Data Data Completed and Pending Labs on day of discharge: Laboratory Results - last 24 hr 07/24/23 07/24/23 07/25/23 16:02 19:33 07:17 POC Glucose 148 H 124 H 112 07/25/23 11:09 POC Glucose 114 Imaging Chest x-ray: Radiologist's impression: ITS Impressions Head CT 07/21/23 17:54 IMPRESSION: No acute intracranial pathology. Abdomen/Pelvis CT 07/24/23 16:18 IMPRESSION: 1. A underlying cause for the patient's bacteremia and UTI has not been found. Air is seen within the bladder can be associated with infections. Please correlate with UA and culture and 2. Incidental note made of an enlarged fatty liver with mildly nodular border and associated mild splenomegaly, colonic diverticulosis without diverticulitis, small ventral hernias, dilated ovarian veins and other findings described above. Fleischner guidelines were followed. Discharge Plan Discharge Anticipated Discharge Date/Time: 07/25/23 12:11 Patient Disposition: Home Health Service Discharge Diagnosis: Acute encephalopathy due to Gram-negative bacteremia in the setting of UTI Acute kidney injury Referrals: Ashanti August, EXTERIOR INTERIOR SPECIALIST [Primary Care Provider] - 1 Week Discharge Medications: New quetiapine 100 mg Tablet 100 mg PO DAILY 30 Days Qty: 30 0RF duloxetine 60 mg Capsule,Delayed Release(Dr/Ec) 60 mg PO DAILY 30 Days Qty: 30 0RF cefuroxime axetil 500 mg tablet 500 mg PO Q12H 10 Days Qty: 20 0RF Continued bethanechol chloride 50 mg tablet 50 mg PO BID 90 Days Qty: 180 1RF sennosides [senna] 8.6 mg tablet 17.2 mg PO BEDTIME PRN (Reason: constipation) 30 Days Qty: 60 3RF ferrous sulfate 325 mg (65 mg iron) tablet 325 mg PO DAILY 90 Days Qty: 90 1RF omeprazole 20 mg capsule,delayed release(DR/EC) 20 mg PO BID Qty: 60 4RF pregabalin 75 mg capsule 75 mg PO TID Qty: 90 0RF albuterol sulfate 90 mcg/actuation HFA aerosol inhaler 2 puff inhalation Q4-6H PRN (Reason: shortness of breath or wheezing) Qty: 8.5 0RF bupropion HCl 150 mg tablet extended release 24 hr 150 mg PO QAM Jardiance 25 mg tablet 25 mg PO DAILY ondansetron HCl 4 mg tablet 4 mg PO Q12H PRN (Reason: nausea/vomiting) multivitamin Tablet 1 tab PO DAILY Vitamin C 100 mg Tablet 100 mg PO DAILY (DME) blood sugar diagnostic Strip See Rx Instructions Not Applicable BID Qty: 10 Rx Instructions: As directed cholecalciferol (vitamin D3) 50 mcg (2,000 unit) capsule 50 mcg PO DAILY diclofenac sodium 1 % gel 2 g topical QID Hold Instructions: Resume on 01/20/21. (DME) blood-glucose meter [FreeStyle Warren Lite] Kit See Rx Instructions .ROUTE .MEDSUPPLY Qty: 1 Rx Instructions: As directed (DME) Compact Space Chamber Spacer See Rx Instructions .ROUTE .MEDSUPPLY Qty: 1 Rx Instructions: As directed (DME) lancets [TRUEplus Lancets] 33 gauge misc See Rx Instructions Not Applicable BID Qty: 100 Rx Instructions: As directed Trelegy Ellipta 200-62.5-25 mcg blister with device 1 inh inhalation DAILY 30 Days Qty: 1 6RF Trulicity 1.5 mg/0.5 mL pen injector 1.5 mg subcut MILLAN Linzess 145 mcg capsule 145 mcg PO QAM 30 Days Qty: 30 3RF acetaminophen 500 mg tablet 1,000 mg PO Q8H PRN (Reason: Pain) Qty: 180 0RF Discontinued Fiber Laxative(methylcellulos) 500 mg tablet 1,000 mg PO DAILY 30 Days Qty: 60 2RF atorvastatin 80 mg tablet 80 mg PO BEDTIME duloxetine 60 mg capsule,delayed release(DR/EC) 1 cap PO BID clonidine HCl 0.1 mg tablet 0.1 mg PO BID tizanidine 2 mg tablet 2 mg PO DAILY tizanidine 2 mg tablet 4 mg PO BEDTIME lisinopril 10 mg tablet 10 mg PO QAM quetiapine 400 mg tablet 600 mg PO BEDTIME quetiapine 400 mg tablet 200 mg PO DAILY amlodipine 5 mg tablet 5 mg PO DAILY fenofibrate micronized 134 mg capsule 134 mg PO DAILY mirtazapine 45 mg tablet 45 mg PO BEDTIME vitamin E 100 unit capsule 1 cap PO DAILY hydroxyzine pamoate 50 mg capsule 50 mg PO TID PRN (Reason: Anxiety) furosemide 20 mg tablet 20 mg PO DAILY Qty: 30 6RF Discharge Orders: Discharge Order (Routine); Ordered 07/25/23 Ordered By: Carmelita Snyder Diet: Diabetic diet Activity on Discharge: As tolerated Stand Alone Forms: Patient Portal Discharge page Print Language: Bahamian Care Plan Goals: Follow-up with PCP within 1 week Health Concerns: E coli bacteremia due to UTI Mild cognitive impairment with underlying mood disorder Plan of Treatment: Medication addition/changes: Cefuroxime 500 mg b.i.d.x 10 days Hold Clonidine Decrease Cymbalta to 60 mg daily Hold mirtazapine Decrease Seroquel to 100 mg at bedtime Hold diuretics and antihypertensives Assessment: As above
--- NOTE | 2023-07-25 12:14 | P.F2F_ITS ---
Service Date Service Date: 07/25/23 Encounter Date of encounter: 07/25/23 Reasons for Services Signs and symptoms assessed: Physical deconditioning Reason for physical therapy: home safety and mobility, therapeutic exercises, restore joint function, gait/transfer training, assess need for DME, ADL training and energy conservation Homebound: Leaving the home is medically contraindicated at this time without the asist of a device and/or another person due th the listed conditions above and below. Reason homebound: unsteady gait / fall risk, cognitively impaired / unsafe and weakness related to hospital stay Certification: Based on the above findings, I certify that this patient is confined to the home and needs intermittent residential care, physical therapy and/or speech therapy, or continues to need occupational therapy. The patient is under my care, and I have initiated the establishment of the plan of care. The patient will be followed by a physician who will periodically review the plan of care. Time Spent With Patient Time: Total time managing care of this patient today ____ minutes.
--- NOTE | 2023-07-25 12:20 | MHC.CM.PN ---
Per MD patient is medically cleared for dc home w/ new [facility]. [facility] aware of dc. at beside to transport home. RN aware. IMM delivered.
== END 2023-07-25 12:33 | disposition home health service (06) | DRG 689 ==
LOC: HO.ED 14:57 → HO.EDOVER 16:35 → HO.IMC 07-21 07:31 → HO.S3 07-22 10:37
PROVIDERS: Internal Medicine; Admitting Provider Student in an Organized Health Care Education/Training Program; Emergency Provider Emergency Medicine; PCP Registered Nurse; Visit Provider Student in an Organized Health Care Education/Training Program
DX: N39.0 Urinary tract infection, site not specified (principal); G92.8 Other toxic encephalopathy; R78.81 Bacteremia; N17.9 Acute kidney failure, unspecified; F03.90 Unspecified dementia, unspecified severity, without behavioral disturbance, psychotic disturbance, mood disturbance, and anxiety; B96.20 Unspecified Escherichia coli [E. coli] as the cause of diseases classified elsewhere; N18.30 Chronic kidney disease, stage 3 unspecified; I12.9 Hypertensive chronic kidney disease with stage 1 through stage 4 chronic kidney disease, or unspecified chronic kidney disease; R31.9 Hematuria, unspecified; D63.1 Anemia in chronic kidney disease; E78.5 Hyperlipidemia, unspecified; E11.22 Type 2 diabetes mellitus with diabetic chronic kidney disease; E86.0 Dehydration; F39 Unspecified mood [affective] disorder; Z99.81 Dependence on supplemental oxygen; Z87.891 Personal history of nicotine dependence; Z79.51 Long term (current) use of inhaled steroids; Z20.822 Contact with and (suspected) exposure to COVID-19; Z79.85 Long-term (current) use of injectable non-insulin antidiabetic drugs; Z79.899 Other long term (current) drug therapy
CPT/HCPCS: 36415; 70450; 74176; 80048; 80076; 80307; 81001; 82550; 82607; 82746; 82803; 82947; 83036; 83605; 83735; 84443; 85014; 85018; 85025; 85027; 87040; 87077; 87086; 87088; 87186; 87205; 87633; 87635; 93005; 94640; 97116; 97161; 97165; 99285; J0696; J1650

== ENCOUNTER → 2023-07-20 12:04 | Outpatient (BNV) | payer OTHER, SELFPAY | PROVIDERS: Admitting Provider Student in an Organized Health Care Education/Training Program; Emergency Provider Emergency Medicine; PCP Registered Nurse; Visit Provider Internal Medicine | DX: G93.41 Metabolic encephalopathy (principal); E87.5 Hyperkalemia | CPT/HCPCS: 93010 ==

== ENCOUNTER → 2023-07-20 16:33 | Outpatient (BNV) | payer OTHER, SELFPAY | PROVIDERS: Admitting Provider Student in an Organized Health Care Education/Training Program; Emergency Provider Emergency Medicine; PCP Registered Nurse; Visit Provider Social Worker | DX: R41.89 Other symptoms and signs involving cognitive functions and awareness (principal) | CPT/HCPCS: 99232 ==

== ENCOUNTER → 2023-07-20 16:33 | Outpatient (BNV) | payer OTHER, SELFPAY | PROVIDERS: Admitting Provider Student in an Organized Health Care Education/Training Program; Emergency Provider Emergency Medicine; PCP Registered Nurse; Visit Provider Student in an Organized Health Care Education/Training Program | DX: R78.81 Bacteremia (principal); N17.9 Acute kidney failure, unspecified; G93.40 Encephalopathy, unspecified | CPT/HCPCS: 99223; 99232; 99239; G0180 ==

== ENCOUNTER → 2023-07-20 16:33 | Outpatient (BNV) | payer OTHER, SELFPAY | PROVIDERS: Admitting Provider Student in an Organized Health Care Education/Training Program; Emergency Provider Emergency Medicine; PCP Registered Nurse; Visit Provider Internal Medicine | DX: G93.40 Encephalopathy, unspecified (principal); N39.0 Urinary tract infection, site not specified; R78.81 Bacteremia | CPT/HCPCS: 99222 ==

== ENCOUNTER → 2023-07-20 16:33 | Outpatient (BNV) | payer OTHER, SELFPAY | PROVIDERS: Admitting Provider Student in an Organized Health Care Education/Training Program; Emergency Provider Emergency Medicine; PCP Registered Nurse; Visit Provider Psychiatry & Neurology Neurology | DX: G93.40 Encephalopathy, unspecified (principal) | CPT/HCPCS: 99222 ==

== ENCOUNTER 2023-08-23 12:17 | Outpatient (REF) | payer OTHER, SELFPAY ==
[2023-08-23 13:13] LABS: MANUAL DIFF FLAG NO
[2023-08-23 13:24] LABS: Basophils Absolute Auto 0.1 X10*3/uL (0.0-0.2); Basophils Percent Auto 1.3 % (0-2); Eosinophils Absolute Auto 0.1 X10*3/uL (0.0-0.4); Eosinophils Percent Auto 2.2 % (0-4); Hematocrit 37.4 % (37.0-47.0); Hemoglobin 11.6 g/dl (12.0-16.0); Imm Gran Abs Auto 0.13 X10*3/uL (0.00-0.03); Imm Gran Pct Auto 2.4 % (0.0-0.4); Lymphocytes Absolute Auto 1.7 X10*3/uL (1.2-4.9); Lymphocytes Percent Auto 30.5 % (20-40); Mean Corpuscular Hemoglobin 27.6 pg (27.0-33.0); Mean Corpuscular Volume 88.8 fL (80.0-98.0); Mean Platelet Volume 11.2 fL (9.4-12.3); Monocytes Absolute Auto 0.5 X10*3/uL (0.1-1.2); Monocytes Percent Auto 9.7 % (2-11); Neutrophils Absolute Auto 2.9 x10*3/uL (2.0-8.3); Neutrophils Percent Auto 53.9 % (45-73); Platelet Count 194 X10*3/uL (160-400); Red Blood Count 4.21 X10*6/uL (4.20-5.50); Red Cell Distribution Width 17.2 % (11.0-16.0); White Blood Count 5.4 X10*3/uL (4.8-10.8)
[2023-08-23 13:57] LABS: Alanine Aminotransferase 23 U/L (0-31); Albumin Level 3.9 g/dL (3.5-5.0); Alkaline Phosphatase 159 U/L (39-117); Anion Gap 15 (12-20); Aspartate Amino Transferase 37 U/L (5-31); Bilirubin Total 0.8 mg/dL (0.0-1.0); Blood Urea Nitrogen 19 mg/dL (9-16); Calcium 9.8 mg/dL (8.4-10.2); Carbon Dioxide 23 mmol/L (22-29); Chloride 108 mmol/L (96-108); Estimated Glomerular Filt Rate > 60; Glucose Random 137 mg/dL (60-115); Sodium 142 mmol/L (135-145); Total Protein 7.7 g/dL (6.5-8.0)
[2023-08-23 14:16] LABS: Thyroid Stimulating Hormone 2.32 uIU/mL (0.32-4.0)
[2023-08-23 14:25] LABS: Folate 7.5 ng/mL (> or = 4.0); Vitamin B12 932 pg/mL (200-900)
== END 2023-08-23 12:18 | disposition home or self-care (01) ==
LOC: HO.HHCL 12:17
PROVIDERS: Visit Provider Registered Nurse
DX: R56.9 Unspecified convulsions (principal); R41.82 Altered mental status, unspecified
CPT/HCPCS: 36415; 80053; 82607; 82746; 84443; 85025

== ENCOUNTER 2023-09-01 07:55 | Outpatient (REF) | payer OTHER, SELFPAY | END 2023-09-01 07:56 | disposition home or self-care (01) | LOC: HO.MAMMO 07:55 | PROVIDERS: PCP Registered Nurse; Visit Provider Registered Nurse | DX: Z12.31 Encounter for screening mammogram for malignant neoplasm of breast (principal) | CPT/HCPCS: 77063; 77067 ==

== ENCOUNTER → 2023-09-01 08:15 | Outpatient (BNV) | payer OTHER, SELFPAY | PROVIDERS: PCP Registered Nurse; Visit Provider Radiology Diagnostic Radiology | DX: Z12.31 Encounter for screening mammogram for malignant neoplasm of breast (principal) | CPT/HCPCS: 77063; 77067 ==

== ENCOUNTER 2023-09-12 14:00 | Outpatient (REF) | payer OTHER, SELFPAY ==
[2023-09-12 16:12] LABS: Hemoglobin 11.8 g/dl (12.0-16.0); Mean Corpuscular HGB Conc 31.9 g/dl (31.0-35.0); Mean Corpuscular Hemoglobin 27.8 pg (27.0-33.0); Mean Corpuscular Volume 87.1 fL (80.0-98.0); Mean Platelet Volume 12.5 fL (9.4-12.3); Platelet Count 285 X10*3/uL (160-400); Red Blood Count 4.25 X10*6/uL (4.20-5.50); Red Cell Distribution Width 17.7 % (11.0-16.0); White Blood Count 5.3 X10*3/uL (4.8-10.8)
[2023-09-12 16:38] LABS: Alanine Aminotransferase 25 U/L (0-31); Albumin Level 4.1 g/dL (3.5-5.0); Alkaline Phosphatase 185 U/L (39-117); Anion Gap 15 (12-20); Aspartate Amino Transferase 44 U/L (5-31); Bilirubin Total 0.7 mg/dL (0.0-1.0); Blood Urea Nitrogen 17 mg/dL (9-16); Calcium 10.1 mg/dL (8.4-10.2); Carbon Dioxide 26 mmol/L (22-29); Chloride 105 mmol/L (96-108); Estimated Glomerular Filt Rate 58; Glucose Random 88 mg/dL (60-115); Potassium 3.5 mmol/L (3.3-5.1); Sodium 142 mmol/L (135-145); Total Protein 8.2 g/dL (6.5-8.0)
[2023-09-12 17:07] LABS: Band Neutrophils Percent 6 % (3-5); Basophils Abs Manual 0.1 X10*3/uL (0.0-0.2); Basophils Percent Manual 1 % (0-2); Lymphocytes Absolute Manual 1.3 X10*3/uL (1.2-4.9); Lymphocytes Percent Manual 25 % (20-40); Metamyelocytes Absolute 0.1 X10*3/uL; Metamyelocytes Percent 2 %; Monocytes Absolute Manual 0.3 X10*3/uL (0.1-1.2); Monocytes Percent Manual 6 % (2-11); Myelocytes Absolute 0.1 X10*/uL; Myelocytes Percent 1 %; Neutrophils Absolute Manual 3.4 X10*3/uL (2.0-8.3); Neutrophils Percent Manual 59 % (45-73)
[2023-09-12 17:08] LABS: Platelet Estimate NORMAL (NORMAL); Platelet Morphology Comment NORMAL; Polychromasia 1+ (0-2) /OIF; RBC Morphology NOTED; Toxic Vacuolation PRESENT
[2023-09-12 17:22] LABS: Appearance Urine Clear; Color Urine Yellow; Glucose Urine UA Negative (Negative); Leukocyte Esterase Urine Moderate (2+) (Negative); Nitrite Urine Negative (Negative); PH 5.5 (5.0-9.0); UMIC TRIGGER UACC YES; Urine Blood Negative (Negative); Urine Ketones Negative (Negative); Urine Protein Negative (Neg-Trace)
[2023-09-12 17:25] LABS: Bacteria Urine Trace (None Seen); Hyaline Casts Urine 0-2 /LPF (0-2); RBC Urine 0-2 /HPF (0-2); UACC Culture Trigger YES
[2023-09-13 09:45] LABS: Iron 64 mcg/dL (30-160); Percent Iron Saturation 23 % (15-50); Total Iron Binding Capacity 283 mcg/dL (228-428); Unsaturated Iron Binding 219 ug/dL
[2023-09-13 09:58] LABS: Ferritin 445 ng/mL (10-250)
== END 2023-09-12 14:01 | disposition home or self-care (01) ==
LOC: HO.HHCL 14:00
PROVIDERS: Visit Provider Student in an Organized Health Care Education/Training Program
DX: R30.9 Painful micturition, unspecified (principal)
CPT/HCPCS: 36415; 80053; 81001; 82728; 83540; 85007; 85027; 87086

== ENCOUNTER 2023-10-13 11:33 | Emergency (ER) | payer OTHER, SELFPAY ==
--- NOTE | ~2023-10-13 | CT_ITS ---
EXAMINATION: CT HEAD WITHOUT CONTRAST CLINICAL INFORMATION: Headache and hypotension. COMPARISON: Head CT dated 07/21/2023. TECHNIQUE: Contiguous axial imaging was performed from the skullbase to vertex without intravenous administration of contrast. This CT examination was performed using dose optimization techniques as appropriate, variously including the following: *Automated exposure control *Adjustment of mA and/or kV according to patient size (this includes techniques or standardized protocols for targeted exams where dose is matched to indication/reason for exam; i.e. extremities or head) *Use of iterative reconstruction technique DLP: 549 mGy-cm. FINDINGS: There is no evidence of acute intracranial hemorrhage or territorial infarction. No abnormal mass effect or midline shift is seen. [place] to white matter differentiation is well preserved. No extra-axial fluid collections are identified. The ventricles are normal in size. Very mild chronic white matter microangiopathic changes are stable. The osseous structures and soft tissues are normal. The mastoid air cells and visualized portions of the paranasal sinuses are well aerated. CT/CT head/brain wo IV con IMPRESSION: No acute intracranial pathology.
--- NOTE | 2023-10-13 11:38 | ECG_ITS ---
Test Reason : DIZZINESS Blood Pressure : / mmHG Vent. Rate : 058 BPM Atrial Rate : 058 BPM P-R Int : 168 ms QRS Dur : 088 ms QT Int : 496 ms P-R-T Axes : 044 006 041 degrees QTc Int : 486 ms Sinus bradycardia Otherwise normal ECG When compared with ECG of 20-JUL-2023 12:17, No significant change was found Referred By: Jessica Sinha Electronically Signed By:Jerome Sloan
[2023-10-13 11:42] VITALS: BP 101/62; BP 88/60; PULSE 59; PULSE 61; RESP 16; TEMP 36.4; O2SAT 95; BMI 31.2
[2023-10-13 11:46] VITALS: BP 101/62; PULSE 59; RESP 16; TEMP 36.4; O2SAT 95
[2023-10-13 11:49] VITALS: BP 101/62; BP 95/56; PULSE 57; PULSE 60
[2023-10-13 11:50] VITALS: BP 94/52; PULSE 64
[2023-10-13 12:15] LABS: Appearance Urine Clear; Color Urine Yellow; Glucose Urine UA Negative (Negative); Leukocyte Esterase Urine Small (1+) (Negative); Nitrite Urine Negative (Negative); Specific Gravity - Urine 1.015 (1.005-1.025); UMIC TRIGGER UACC YES; Urine Blood Negative (Negative); Urine Ketones Negative (Negative); Urine Protein Negative (Neg-Trace)
[2023-10-13 12:20] LABS: MANUAL DIFF FLAG NO
--- NOTE | 2023-10-13 12:21 | ED_ITS ---
HPI - General Adult General Chief complaint: Dizziness Stated complaint: HEADACHE LOW BP Time Seen by Provider: 10/13/23 12:21 Source: patient Mode of arrival: ambulatory Limitations: no limitations History of Present Illness ED Provider: Abhishek JARAMILLO HPI narrative: 63 year old female hx of cognative impairment, cirrhoisis, COPD, dyspnea on exertion, GERD, IBS, fibromyalgia presenting to the emergency department for evaluation of low blood pressure reads at her primary care provider's office she reports she was in her office for a routine follow-up where she was noted to have low blood pressures. She does report she has been having intermittent nausea and lightheadedness over the past few weeks. However this appears to be around her baseline she gets this frequently. She is still eating and drinking. She denies vomiting, abdominal pain, chest pain, shortness of breath, fevers, chills, recent illness, diarrhea, changes in urination. Reports she had a UTI about 3 months ago. Related Data Home Medications ?Medication ?Instructions ?Recorded ?Confirmed blood sugar diagnostic #10 ea 06/25/20 09/22/22 cholecalciferol (vitamin D3) 50 50 mcg PO DAILY 06/25/20 07/20/23 mcg (2,000 unit) capsule diclofenac sodium 1 % topical gel 2 g topical QID 06/25/20 07/20/23 blood-glucose meter (FreeStyle #1 ea 03/02/21 09/22/22 [place] Lite kit) inhalational spacing device #1 ea 03/02/21 09/22/22 (Compact Space Chamber) lancets 33 gauge (TRUEplus Lancets) #100 ea 03/02/21 09/22/22 dulaglutide 1.5 mg/0.5 mL 1.5 mg subcut MILLAN diabetes mellitus 08/16/21 07/20/23 subcutaneous pen injector (Trulicity) bupropion HCl 150 mg 24 hr tablet, 150 mg PO QAM 04/19/23 07/20/23 extended release ascorbic acid (vitamin C) 100 mg 100 mg PO DAILY 07/20/23 07/20/23 tablet (Vitamin C) empagliflozin 25 mg tablet 25 mg PO DAILY 07/20/23 07/20/23 (Jardiance) multivitamin 1 tab PO DAILY 07/20/23 07/20/23 ondansetron HCl 4 mg tablet 4 mg PO Q12H PRN nausea/vomiting 07/20/23 07/20/23 Previous Rx's ?Medication ?Instructions ?Recorded albuterol sulfate 90 mcg/actuation 2 puff inhalation Q4-6H PRN 10/07/20 aerosol inhaler shortness of breath or wheezing #8.5 grams fluticasone fur. 200 mcg-umeclid 1 inh inhalation DAILY 30 days #1 01/19/21 62.5 mcg-vilant 25 mcg ea inhalat.powder (Trelegy Ellipta) acetaminophen 500 mg tablet 1,000 mg (2 x 500 mg) PO Q8H PRN 07/06/21 Pain #180 tabs linaclotide 145 mcg capsule 145 mcg PO QAM 30 days #30 caps 09/22/22 (Linzess) bethanechol chloride 50 mg tablet 50 mg PO BID 90 days #180 tabs 11/24/22 sennosides 8.6 mg tablet (senna) 17.2 mg (2 x 8.6 mg) PO BEDTIME 03/31/23 PRN constipation 30 days #60 tabs ferrous sulfate 325 mg (65 mg 325 mg PO DAILY 90 days #90 tabs 04/06/23 iron) tablet pregabalin 75 mg capsule 75 mg PO TID #90 caps 07/07/23 cefuroxime axetil 500 mg tablet 500 mg PO Q12H 10 days #20 tabs 07/25/23 duloxetine 60 mg capsule,delayed 60 mg PO DAILY 30 days #30 caps 07/25/23 release quetiapine 100 mg tablet 100 mg PO DAILY 30 days #30 tabs 07/25/23 omeprazole 20 mg capsule,delayed 20 mg PO BID #60 caps 08/30/23 release Allergies Allergy/AdvReac Type Severity Reaction Status Date / Time oxycodone [Percocet] Allergy Intermediate Itching Verified 10/13/23 11:44 Vicodin Allergy Intermediate itching Uncoded 10/13/23 11:44 Review of Systems 2 Review of Systems: Yes all other systems are reviewed and are negative PMFSH Past Medical History Attestation statement: The following information was validated with the patient. Source: old records reviewed and nursing notes reviewed Medical History ELIZABET (acute kidney injury) Encephalopathy UTI (urinary tract infection) Bacteremia Frequent falls Acute exacerbation of chronic obstructive airways disease Urinary retention with incomplete bladder emptying Steatohepatitis IBS (irritable bowel syndrome) History of colon polyps Dysphagia, pharyngoesophageal phase GERD without esophagitis Hx of hereditary disease Diabetes mellitus Depression Fibromyalgia Surgical History Hx of abdominal surgery History of back surgery History of esophagogastroduodenoscopy (EGD) S/p total knee replacement, bilateral Hx of tubal ligation Hx of cholecystectomy Hx of endoscopy History of colonoscopy Family History Family History Father History of heart attack Hx of type 1 diabetes mellitus Mother Alive and well Social History Social History Household Members: Significant Other Housing: Apartment Do you presently have visiting nurse or other home services: Yes Alcohol intake: former Patient Tobacco Use Status: Former Tobacco user Tobacco use type: Cigarette Cigarette Packs Per Day: 0.5 Cigarettes Per Day: 10.0 Years Smoked: 25 yrs Second Hand Smoke Exposure: No Advance Directives: Yes Advance Directives on File: Yes Advance Directives Date on File: 10/20/20 Do you have a plan to hurt others: No Plan Patient : No service: No Current occupational status: unemployed Physical Exam ED Vital Signs: Vital Signs - 24 hr 10/13/23 11:42 10/13/23 11:46 10/13/23 11:49 Temperature 97.6 F 97.6 F Pulse Rate 59 59 57 Respiratory Rate 16 16 Blood Pressure 101/62 101/62 101/62 Pulse Oximetry 95 95 Oxygen Delivery Method Room Air Room Air 10/13/23 11:49 10/13/23 11:50 Temperature Pulse Rate 60 64 Respiratory Rate Blood Pressure 95/56 L 94/52 L Pulse Oximetry Oxygen Delivery Method BMI result Body Mass Index 31.2 vss Appearance: Alert.? Oriented X3.? No acute distress.? Head: Normocephalic, atraumatic, no step-offs or deformities Eyes: Pupils equal, round and reactive to light.? CVS: Normal heart rate and rhythm.? Pulses normal.? Respiratory: No respiratory distress.? Breath sounds normal.? Abdomen: Soft and nontender.? Skin: Skin warm and dry.? Normal skin color.? Normal skin turgor.? Extremities: No lower extremity edema.? No calf ttp. 5/5 strength to bilateral upper and lower extremities Neuro: Oriented X 3.? No motor deficit.? No sensory deficit. CN 2-12 intact. Normal finger to nose, heel to liu. NIHSS-0 Course Reevaluation(s) Reevaluation #1: CBC w/ leukopenia. Orthostatic negative but there is a drop in bp with positional changes w/ a/c dizziness. Time: 13:00 Reevaluation #2: CT head no acute intracranial pathology. Patient feeling well. Chemistry no acute findings requiring intervention chronically elevated transaminases. Chronically elevated alk-phos. Troponin negative, EKG nonischemic. UA without infection. Upon reviewing patient's blood pressures from previous visits patient's blood pressure is usually in the low 100s. This is not deviating significantly from her baseline. She does not have associated fever, tachycardia I do not suspect that hypotension is from infection. Likely secondary to poor p.o. intake or dehydration. Educated patient on diagnosis and treatment plan, answered all question, patient verbalizes understanding. At this time patient will be discharged home, advised to return with new or worsening symptoms. Educated on worrisome signs and symptoms and when to return. At this time I feel comfortable discharge home. Time: 13:28 Medications Administered Generic Name Dose Route Start Last Admin Trade Name Freq PRN Reason Stop Dose Admin Sodium Chloride 1,000 mls @ 999 mls/hr 10/13/23 12:30 10/13/23 12:50 Ns IV 10/13/23 13:30 999 mls/hr .Q1H1M [facility] Administration Medical Decision Making Medical Decision Making [facility] Narrative: 1222 63 yo f presents w/ low bp at [facility] office. Reports intermittent dizziness ( room spinning) and nausea for a while. PE benign . NO abd tenderness. NIHSS-0 normal cerebellar function. History and physical exam concerning for orthostatic dizziness versus metabolic derangements versus urinary infection versus dysrhythmia. Unlikely ACS, PE, intracranial hemorrhage, stroke, posterior stroke. Plan- labs, urine, trop, ekg, orthostatic vitals. Differential Diagnosis Differential Diagnoses: The differential diagnosis associated with the presentation includes History and physical exam concerning for orthostatic dizziness versus metabolic derangements versus urinary infection versus dysrhythmia. Unlikely ACS, PE, intracranial hemorrhage, stroke, posterior stroke. Admission/Observation Consideration of admission/observation: Escalation of care including admission/observation considered Lab Data MDM Lab Attestation statement: I reviewed the patient's lab results. 10/13/23 12:01 10/13/23 12:01 Labs: Lab Results 10/13/23 10/13/23 Range/Units 12:01 12:02 WBC 4.5 L (4.8-10.8) X10*3/uL RBC 4.51 (4.20-5.50) X10*6/uL Hgb 13.2 (12.0-16.0) g/dl Hct 41.6 (37.0-47.0) % MCV 92.2 (80.0-98.0) fL MCH 29.3 (27.0-33.0) pg MCHC 31.7 (31.0-35.0) g/dl RDW 17.1 H (11.0-16.0) % Plt Count 198 D (160-400) X10*3/uL MPV 9.8 (9.4-12.3) fL Immature Gran % (Auto) 1.1 H (0.0-0.4) % Neut % (Auto) 47.1 (45-73) % Lymph % (Auto) 37.8 (20-40) % [place] % (Auto) 11.3 H (2-11) % Eos % (Auto) 1.6 (0-4) % Baso % (Auto) 1.1 (0-2) % Lymph # (Auto) 1.7 (1.2-4.9) X10*3/uL [place] # (Auto) 0.5 (0.1-1.2) X10*3/uL Eos # (Auto) 0.1 (0.0-0.4) X10*3/uL Baso # (Auto) 0.1 (0.0-0.2) X10*3/uL Abs Immat Gran (auto) 0.05 H (0.00-0.03) X10*3/uL Absolute Neuts (auto) 2.1 (2.0-8.3) x10*3/uL Absolute Nucleated RBC 0.000 (0.0-0.012) X10*3/uL Nucleated RBC % (auto) 0.0 (0.0-0.2) /100WBC PT 13.3 (11.1-13.3) SEC INR 1.1 (0.9-1.1) Sodium 138 (135-145) mmol/L Potassium 3.5 (3.3-5.1) mmol/L Chloride 100 (96-108) mmol/L Carbon Dioxide 29 (22-29) mmol/L Anion Gap 13 (12-20) BUN 15 (9-16) mg/dL Creatinine 1.04 (0.5-1.4) mg/dL Estim Creat Clear Calc 56.1 Estimated GFR 54 Random Glucose 137 H (60-115) mg/dL Calcium 9.9 (8.4-10.2) mg/dL Magnesium 1.7 (1.6-2.6) mg/dL Total Bilirubin 0.5 (0.0-1.0) mg/dL AST 54 H (5-31) U/L ALT 24 (0-31) U/L Alkaline Phosphatase 155 H (39-117) U/L Troponin I High Sens < 2.7 (<3.5-17.0) ng/L Total Protein 8.2 H (6.5-8.0) g/dL Albumin 4.2 (3.5-5.0) g/dL Urine Color Yellow Urine Appearance Clear Urine pH 6.0 (5.0-9.0) Ur Specific [place] 1.015 (1.005-1.025) Urine Protein Negative (Neg-Trace) mg/dL Urine Glucose (UA) Negative (Negative) mg/dL Urine Ketones Negative (Negative) mg/dL Urine Blood Negative (Negative) Urine Nitrite Negative (Negative) Ur Leukocyte Esterase Small (1+) H (Negative) Urine RBC 0-2 (0-2) /HPF Urine WBC 6-10 H (0-5) /HPF Ur Squamous Epith Cells 0-2 (0-2) /HPF Urine Bacteria None Seen (None Seen) Hyaline Casts 0-2 (0-2) /LPF Independent Interpretation I performed an independent interpretation of an: CT Scan (CT/CT head/brain wo IV con IMPRESSION: No acute intracranial pathology.) Radiology Impression Discussion of test interpretation with radiology: I have reviewed the radiologist's reading. Independent Historian Clinical information obtained from an independent historian. History obtained from or confirmed by: EMS External Record Review External record reviewed: Inpatient record, Office record, Outpatient record, Prior outpatient labs, Prior outpatient radiology, Primary care record and Outside ED record Chronic Conditions Patient?s care impacted by: Other ( cognative impairment, cirrhoisis, COPD, dyspnea on exertion, GERD, IBS, fibromyalgia ) Social Determinants Patient?s care significantly limited by Social Determinants of Health including: Inadequate housing, Low income and Other Social Determinant of Health Discharge Plan Discharge Clinical Impression: Dizziness, Low blood pressure reading Patient Disposition: Home, Self-Care Instructions: Dizziness (ED) Additional Instructions: Take your medications as prescribed. If you were prescribed antibiotics today, it is important that you take your medication to their entirety, do not skip any doses, do not finish them early. Follow-up with your primary care provider this week. Return to the emergency department with new or worsening symptoms. Such as fevers, chills, chest pain, shortness of breath, nausea, vomiting, dizziness, headache, vision changes, lethargy In case of emergency call 911 Prescriptions: No Action bethanechol chloride 50 mg tablet 50 mg PO BID 90 Days Qty: 180 1RF sennosides [senna] 8.6 mg tablet 17.2 mg PO BEDTIME PRN (Reason: constipation) 30 Days Qty: 60 3RF ferrous sulfate 325 mg (65 mg iron) tablet 325 mg PO DAILY 90 Days Qty: 90 1RF pregabalin 75 mg capsule 75 mg PO TID Qty: 90 0RF omeprazole 20 mg capsule,delayed release(DR/EC) 20 mg PO BID Qty: 60 4RF albuterol sulfate 90 mcg/actuation HFA aerosol inhaler 2 puff inhalation Q4-6H PRN (Reason: shortness of breath or wheezing) Qty: 8.5 0RF bupropion HCl 150 mg tablet extended release 24 hr 150 mg PO QAM Jardiance 25 mg tablet 25 mg PO DAILY ondansetron HCl 4 mg tablet 4 mg PO Q12H PRN (Reason: nausea/vomiting) multivitamin Tablet 1 tab PO DAILY Vitamin C 100 mg Tablet 100 mg PO DAILY quetiapine 100 mg Tablet 100 mg PO DAILY 30 Days Qty: 30 0RF duloxetine 60 mg Capsule,Delayed Release(Dr/Ec) 60 mg PO DAILY 30 Days Qty: 30 0RF cefuroxime axetil 500 mg tablet 500 mg PO Q12H 10 Days Qty: 20 0RF (DME) blood sugar diagnostic Strip See Rx Instructions Not Applicable BID Qty: 10 Rx Instructions: As directed cholecalciferol (vitamin D3) 50 mcg (2,000 unit) capsule 50 mcg PO DAILY diclofenac sodium 1 % gel 2 g topical QID Hold Instructions: Resume on 01/20/21. (DME) blood-glucose meter [FreeStyle [place] Lite] Kit See Rx Instructions .ROUTE .MEDSUPPLY Qty: 1 Rx Instructions: As directed (DME) Compact Space Chamber Spacer See Rx Instructions .ROUTE .MEDSUPPLY Qty: 1 Rx Instructions: As directed (DME) lancets [TRUEplus Lancets] 33 gauge misc See Rx Instructions Not Applicable BID Qty: 100 Rx Instructions: As directed Trelegy Ellipta 200-62.5-25 mcg blister with device 1 inh inhalation DAILY 30 Days Qty: 1 6RF Trulicity 1.5 mg/0.5 mL pen injector 1.5 mg subcut MILLAN Linzess 145 mcg capsule 145 mcg PO QAM 30 Days Qty: 30 3RF acetaminophen 500 mg tablet 1,000 mg PO Q8H PRN (Reason: Pain) Qty: 180 0RF Print Language: Marshallese
[2023-10-13 12:23] LABS: Basophils Absolute Auto 0.1 X10*3/uL (0.0-0.2); Basophils Percent Auto 1.1 % (0-2); Eosinophils Absolute Auto 0.1 X10*3/uL (0.0-0.4); Eosinophils Percent Auto 1.6 % (0-4); Hematocrit 41.6 % (37.0-47.0); Hemoglobin 13.2 g/dl (12.0-16.0); Imm Gran Abs Auto 0.05 X10*3/uL (0.00-0.03); Imm Gran Pct Auto 1.1 % (0.0-0.4); Lymphocytes Absolute Auto 1.7 X10*3/uL (1.2-4.9); Lymphocytes Percent Auto 37.8 % (20-40); Mean Corpuscular HGB Conc 31.7 g/dl (31.0-35.0); Mean Corpuscular Hemoglobin 29.3 pg (27.0-33.0); Mean Corpuscular Volume 92.2 fL (80.0-98.0); Mean Platelet Volume 9.8 fL (9.4-12.3); Monocytes Absolute Auto 0.5 X10*3/uL (0.1-1.2); Monocytes Percent Auto 11.3 % (2-11); Neutrophils Absolute Auto 2.1 x10*3/uL (2.0-8.3); Neutrophils Percent Auto 47.1 % (45-73); Platelet Count 198 X10*3/uL (160-400); Red Blood Count 4.51 X10*6/uL (4.20-5.50); Red Cell Distribution Width 17.1 % (11.0-16.0); White Blood Count 4.5 X10*3/uL (4.8-10.8)
[2023-10-13 12:28] LABS: INTERNATIONAL NORM RATIO 1.1 (0.9-1.1); Prothrombin Time 13.3 SEC (11.1-13.3)
[2023-10-13 12:35] LABS: Bacteria Urine None Seen (None Seen); Hyaline Casts Urine 0-2 /LPF (0-2); RBC Urine 0-2 /HPF (0-2); Squamous Epithelial Cell Urine 0-2 /HPF (0-2); UACC Culture Trigger YES
[2023-10-13 12:36] LABS: Alanine Aminotransferase 24 U/L (0-31); Albumin Level 4.2 g/dL (3.5-5.0); Alkaline Phosphatase 155 U/L (39-117); Anion Gap 13 (12-20); Aspartate Amino Transferase 54 U/L (5-31); Bilirubin Total 0.5 mg/dL (0.0-1.0); Blood Urea Nitrogen 15 mg/dL (9-16); Calcium 9.9 mg/dL (8.4-10.2); Carbon Dioxide 29 mmol/L (22-29); Chloride 100 mmol/L (96-108); Creatinine Clr Calc Pharmacy 56.1; Estimated Glomerular Filt Rate 54; Glucose Random 137 mg/dL (60-115); Magnesium 1.7 mg/dL (1.6-2.6); Potassium 3.5 mmol/L (3.3-5.1); Sodium 138 mmol/L (135-145); Total Protein 8.2 g/dL (6.5-8.0)
[2023-10-13 12:44] LABS: Troponin-I High Sensitivity < 2.7 ng/L (<3.5-17.0)
[2023-10-13] MEDS: 0.9 % Sodium Chloride 1,000 ML 999 ML IV (12:50)
[2023-10-13 13:43] VITALS: BP 119/65; PULSE 64; RESP 16; TEMP 36.7; O2SAT 96
[2023-10-13 15:07] LABS: Influenza A PCR NEGATIVE (Negative); Influenza B PCR NEGATIVE (Negative); Resp Syncy Virus RNA Qual PCR NEGATIVE (Negative); SARS COV2 PCR INHOUSE NEGATIVE (Negative)
== END 2023-10-13 14:05 | disposition home or self-care (01) ==
PROVIDERS: Physician Assistant; Emergency Provider Emergency Medicine; PCP Registered Nurse
DX: R42 Dizziness and giddiness (principal); R03.1 Nonspecific low blood-pressure reading; R51.9 Headache, unspecified; R00.1 Bradycardia, unspecified; E11.9 Type 2 diabetes mellitus without complications; R06.09 Other forms of dyspnea; R33.9 Retention of urine, unspecified; J44.9 Chronic obstructive pulmonary disease, unspecified; Z99.81 Dependence on supplemental oxygen; Z03.818 Encounter for observation for suspected exposure to other biological agents ruled out; Z87.891 Personal history of nicotine dependence; Z87.440 Personal history of urinary (tract) infections
CPT/HCPCS: 0241U; 36415; 70450; 80053; 81001; 83735; 84484; 85025; 85610; 87086; 93005; 99284; 99285

== ENCOUNTER → 2023-10-13 11:38 | Outpatient (BNV) | payer OTHER, SELFPAY | PROVIDERS: Emergency Provider Emergency Medicine; PCP Registered Nurse; Visit Provider Internal Medicine Cardiovascular Disease | DX: R42 Dizziness and giddiness (principal); R00.1 Bradycardia, unspecified | CPT/HCPCS: 93010 ==

== ENCOUNTER 2023-11-09 09:15 | Outpatient (REF) | payer OTHER, SELFPAY ==
--- NOTE | ~2023-11-09 | CT_ITS ---
EXAMINATION: CT LOW-DOSE SCREENING CHEST WITHOUT CONTRAST CLINICAL INFORMATION: Personal history of nicotine dependence. Former smoker. The patient has a 25 pack-year history of smoking, having quit 3 years ago. COMPARISON: X-ray chest February 14, [address] chest December 22, 2022. TECHNIQUE: Multidetector volumetric CT imaging of the chest is performed on a Siemens SOMATOM Definition scanner without contrast using low dose technique. Additional 2D coronal and sagittal reformatted images and axial 3D maximum intensity projection (MIP) images are generated on the CT workstation. This CT examination was performed using dose optimization techniques as appropriate, variously including the following: *Automated exposure control *Adjustment of mA and/or kV according to patient size (this includes techniques or standardized protocols for targeted exams where dose is matched to indication/reason for exam; i.e. extremities or head) *Use of iterative reconstruction technique TOTAL EXAM DLP: 50 mGy-cm. CTDIvol: 1.69 mGy. FINDINGS: PULMONARY NODULES: No suspicious pulmonary nodules. Tiny punctate calcified granuloma at the left lung base (5:319). LUNGS: Lungs bilaterally symmetrically expanded. There is mild diffuse emphysema along with mild bronchial thickening. No effusion or pneumothorax. Central airways patent. MEDIASTINUM: No mediastinal, hilar or axillary adenopathy or free fluid collection. CORONARY ARTERY CALCIFICATION: Minimal. THYROID GLAND: Unremarkable to the extent seen. CARDIOVASCULAR STRUCTURES: Aortic and heart size normal. No pericardial effusion. CHEST WALL/AXILLA: Unremarkable. UPPER ABDOMEN: Included portions of the solid organs in the upper abdomen unremarkable on noncontrast imaging aside from the presence of mild hepatic steatosis. OSSEOUS STRUCTURES: No suspicious focal findings. CT/CT lung screening IMPRESSION: No suspicious pulmonary nodules. ASSESSMENT: 1. Lung-RADS Category 1: Negative. There are no nodules or there are definitely benign nodules. N/A 2. Lung-RADS Category S: Negative. There are no clinically significant or potentially clinically significant findings not related to the lungs requiring urgent additional evaluation. RECOMMENDATION: Continued routine annual low-dose CT lung screening in 1 year is recommended. An order for CT CHEST LOW DOSE CANCER SCREENING ([id number]) can be placed. Electronically signed by: Lion Aden MD 12/18/2023 06:43 PM EDT
== END 2023-11-09 09:16 | disposition home or self-care (01) ==
LOC: HO.CT 09:15
PROVIDERS: PCP Family Medicine; Visit Provider Internal Medicine Pulmonary Disease
DX: Z12.2 Encounter for screening for malignant neoplasm of respiratory organs (principal); Z87.891 Personal history of nicotine dependence
CPT/HCPCS: 71271

== ENCOUNTER 2023-12-06 10:05 | Outpatient (AMB) | payer OTHER, SELFPAY ==
[2023-12-06 10:07] VITALS: BP 110/62; PULSE 98; O2SAT 94; BMI 30.7
--- NOTE | 2023-12-06 10:07 | MHC.OFFVIS ---
Vital Signs 12/06/23 10:07 Height 5 ft 3 in Weight 173 lb 1.006 oz BMI 30.7 BP 110/62 Blood Pressure Location Rt brachial Position Sitting Pulse 98 Pulse Source Doppler Pulse Oximetry (%) 94 Oxygen Delivery Method Nasal Cannula Oxygen Flow Rate 2 Intake Visit Reasons: COPD Allergies oxycodone [Percocet] Allergy (Intermediate, Verified 10/13/23 11:44) Itching Vicodin Allergy (Intermediate, Uncoded 10/13/23 11:44) itching HPI HPI COPD: Details: 63-year-old lady, recent 35+ pack-year smoker followed for supplemental oxygen 2 L continuous flow dependent COPD.? She continues to use Trelegy with reasonable control of her underlying dyspnea.? She does have an underlying diastolic dysfunction and is currently under cardiologic care.? She denies acute exacerbations. [facility] Medical History ELIZABET (acute kidney injury) Encephalopathy UTI (urinary tract infection) Bacteremia Frequent falls Acute exacerbation of chronic obstructive airways disease Urinary retention with incomplete bladder emptying Steatohepatitis IBS (irritable bowel syndrome) History of colon polyps Dysphagia, pharyngoesophageal phase GERD without esophagitis Hx of hereditary disease Diabetes mellitus Depression Fibromyalgia Surgical History Hx of abdominal surgery History of back surgery History of esophagogastroduodenoscopy (EGD) S/p total knee replacement, bilateral Hx of tubal ligation Hx of cholecystectomy Hx of endoscopy History of colonoscopy Family History Father History of heart attack Hx of type 1 diabetes mellitus Mother Alive and well Social History Household Members: Significant Other Housing: Apartment Do you presently have visiting nurse or other home services: Yes Alcohol intake: former Patient Tobacco Use Status: Former Tobacco user Tobacco use type: Cigarette Cigarette Packs Per Day: 0.5 Cigarettes Per Day: 10.0 Years Smoked: 25 yrs Second Hand Smoke Exposure: No Advance Directives Date on File: 10/20/20 service: No Current occupational status: unemployed Review of Systems Const Denies daytime sleepiness, Denies excessive sweating, Denies fatigue, Denies fever(s), Denies lethargy, Denies malaise, Denies night sweats, Denies snoring and Denies weight loss Eyes Denies blurry vision and Denies itchy eyes ENT Denies nasal congestion, Denies post nasal drip, Denies sinus pain, Denies sinus pressure and Denies other ( Thrush) Card Denies chest pain, Denies pedal edema, Denies dyspnea, Denies orthopnea and Denies paroxysmal nocturnal dyspnea Resp Denies cough, Denies hemoptysis, Denies excessive phlegm production, Denies dyspnea, Denies snoring and Denies wheezing GI Denies abdominal pain and Denies heartburn Musc Denies myalgias, Denies arthralgias and Denies joint swelling Skin/Breast Denies rash Neuro Denies memory loss and Denies seizure-like activity Psych Denies abnormal sleep pattern, Denies anxiety and Denies memory loss Endo Denies excessive sweating, Denies fatigue and Denies heat intolerance Rocky/Lymph Denies easy bruising Aller/Immun Denies itchy eyes, Denies seasonal rhinorrhea and Denies wheezing Physical Exam Vital Signs: Last Vital Signs Pulse 98 12/06/23 10:07 BP 110/62 12/06/23 10:07 Pulse Ox 94 12/06/23 10:07 Oxygen Delivery Method Nasal Cannula 12/06/23 10:07 Oxygen Flow Rate 2 12/06/23 10:07 BMI result Body Mass Index 30.7 Const General: no acute distress and alert Nutritional Appearance: not obese Orientation/consciousness: Other orientation findings ( oriented) HEENT Head: Yes atraumatic Eyes General: appearance normal, both eyes and all related structures Sclerae: sclerae normal EOM: EOMs intact bilaterally Neck Neck: Yes supple Lymphatic: no lymphadenopathy noted Resp Effort & Inspection: normal respiratory effort and no use of accessory muscles Auscultation: clear to auscultation bilaterally Cardio Rate: regular rate Rhythm: regular rhythm Heart sounds: no gallops, no murmurs and no rubs Skin General skin exam: other ( warm) Extrem General: No clubbing, No cyanosis and No edema Assessment & Plan Assessment & Plan (1) COPD (chronic obstructive pulmonary disease): Code(s): J44.9 - Chronic obstructive pulmonary disease, unspecified Category: Medical Plan: Suboptimal control on Trelegy and albuterol MDI. Will add theophylline. Continue current regimen. (2) Supplemental oxygen dependent: Code(s): Z99.81 - Dependence on supplemental oxygen Category: Medical Plan: Continue supplemental oxygen to maintain O2 saturation of 88-92%. (3) Personal history of nicotine dependence: Code(s): Z87.891 - Personal history of nicotine dependence Category: Medical Plan: Lung cancer screening follow-up CT chest is pending. Coding Level of Care Code Est Pt Level 4 (79659) Diagnoses COPD (chronic obstructive pulmonary disease) J44.9 Supplemental oxygen dependent Z99.81 Personal history of nicotine dependence Z87.891
== END 2023-12-06 10:41 | disposition home or self-care (01) ==
PROVIDERS: PCP Registered Nurse; Visit Provider Internal Medicine Pulmonary Disease
DX: J44.9 Chronic obstructive pulmonary disease, unspecified (principal); Z99.81 Dependence on supplemental oxygen; Z87.891 Personal history of nicotine dependence
CPT/HCPCS: 99214

== ENCOUNTER → 2023-12-06 10:05 | Outpatient (BNVA) | payer OTHER, SELFPAY | PROVIDERS: PCP Registered Nurse; Visit Provider Internal Medicine Pulmonary Disease | DX: J44.9 Chronic obstructive pulmonary disease, unspecified (principal); Z99.81 Dependence on supplemental oxygen; Z87.891 Personal history of nicotine dependence | CPT/HCPCS: 99212 ==

== ENCOUNTER 2024-01-30 13:02 | Outpatient (AMB) | payer OTHER, SELFPAY ==
[2024-01-30 13:14] VITALS: BP 112/60; PULSE 68; BMI 29.7
--- NOTE | 2024-01-30 13:14 | MHC.OFFVIS ---
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 Allergies oxycodone [Percocet] Allergy (Intermediate, Verified 10/13/23 11:44) Itching Vicodin Allergy (Intermediate, Uncoded 10/13/23 11:44) itching Medication List - Last Reconciled 01/30/24 by Jaxson Wells MD albuterol sulfate 90 mcg/actuation 2 puffs inhalation Q4-6H PRN amlodipine 5 mg PO DAILY atorvastatin 80 mg PO DAILY blood sugar diagnostic As directed blood-glucose meter ([employer] [place] Lite kit) As directed bupropion HCl XL 150 mg PO QAM clonidine HCl 0.1 mg PO BID duloxetine 60 mg PO DAILY 30 days nrdiyehuups-eyznpopsa-kvctgdob 200-62.5-25 mcg (Trelegy Ellipta) 1 inh inhalation DAILY 30 days inhalational spacing device (Compact Space Chamber) As directed lancets (TRUEplus Lancets) As directed quetiapine 400 mg PO DAILY risperidone mg PO theophylline ER 400 mg PO DAILY vitamin E (dl, acetate) 45 mg PO DAILY HPI Comments Details: Sharri has been referred back for evaluation. Previously seen in 2021. At that time, it was felt that her symptoms of shortness of breath were mainly pulmonary due to COPD. She had some aortic sclerosis but nothing significant. Currently, she states she is having some palpitations and that happens several times a week. Can last from few seconds to few minutes. No new breathing issues, just about her baseline. No angina. No documented coronary disease myocardial infarction in the past. On polypharmacy. Also has cirrhosis. [facility] Medical History ELIZABET (acute kidney injury) Encephalopathy UTI (urinary tract infection) Bacteremia Frequent falls Acute exacerbation of chronic obstructive airways disease Urinary retention with incomplete bladder emptying Steatohepatitis IBS (irritable bowel syndrome) History of colon polyps Dysphagia, pharyngoesophageal phase GERD without esophagitis Hx of hereditary disease Diabetes mellitus Depression Fibromyalgia Surgical History Hx of abdominal surgery History of back surgery History of esophagogastroduodenoscopy (EGD) S/p total knee replacement, bilateral Hx of tubal ligation Hx of cholecystectomy Hx of endoscopy History of colonoscopy Family History Father History of heart attack Hx of type 1 diabetes mellitus Mother Alive and well Social History Household Members: Significant Other Housing: Apartment Do you presently have visiting nurse or other home services: Yes Alcohol intake: former Patient Tobacco Use Status: Former Tobacco user Tobacco use type: Cigarette Cigarette Packs Per Day: 0.5 Cigarettes Per Day: 10.0 Years Smoked: 25 yrs Second Hand Smoke Exposure: No Advance Directives Date on File: 10/20/20 service: No Current occupational status: unemployed Review of Systems Const Denies weakness ENT Denies dizziness Card Denies chest pain, Denies chest pain with activity, Denies syncope, Denies rapid heart rate, Denies pedal edema, Denies edema, Denies leg edema, Denies lightheadedness, Reports palpitations, Denies dyspnea, Denies dyspnea on exertion and Denies orthopnea Resp Denies cough, Denies dyspnea and Denies dyspnea on exertion GI Denies hematochezia and Denies change in stool character Musc Denies abnormal gait, Denies muscle cramps, Denies muscle weakness, Denies numbness, Denies radiating pain into limb and Denies tingling Neuro Denies abnormal gait, Denies dizziness, Denies syncope, Denies numbness, Denies tingling and Denies weakness Endo Reports palpitations Physical Exam Vital Signs: Last Vital Signs Pulse 68 01/30/24 13:14 BP 112/60 01/30/24 13:14 BMI result Body Mass Index 29.7 Const General: comfortable and no acute distress Orientation/consciousness: patient oriented x3 HEENT Other: Unremarkable Head: Yes normal to inspection Neck Neck: Yes normal visual inspection Chest Chest palpation & inspection: normal inspection of the chest Resp Auscultation: clear to auscultation bilaterally Cardio Palpation: normal PMI Heart sounds: S1 normal heart sound present, S2 normal heart sound present, no gallops, Murmur heart sound present systolic II/ and at the right sternal border and no rubs GI Palpation (GI): Soft to palpation Back/Spine/Pelvis Other: unremarkable Skin General skin exam: no rashes or lesions noted Neuro General: patient oriented x3 Extrem General: Yes normal to inspection Psych Mental Status: mental status grossly normal Assessment & Plan Assessment & Plan (1) Aortic valve sclerosis: Code(s): I35.8 - Other nonrheumatic aortic valve disorders Category: Medical (2) Heart palpitations: Code(s): R00.2 - Palpitations Category: Medical Plan Prior cardiac studies reviewed. EKG from October shows sinus bradycardia at 58/Min; no significant ST-T changes; normal TN and corrected QT. Echocardiogram from 2020- preserved LVEF at 60-65% and mild diastolic dysfunction with indeterminate filling pressures. Aortic valve sclerosis but no significant stenosis. For workup for palpitations, obtain Holter monitor. With regard to the aortic valve sclerosis seen in previous echocardiogram, obtain a follow-up study to evaluate for aortic stenosis. No specific medication changes at this time. Orders: Orders CA echo transthoracic complete Today Jaxson Wells MD I35.0 - Nonrheumatic aortic (valve) stenosis ECG 7 day holter monitor Today Jaxson Wells MD R00.2 - Palpitations Medications: Changed From quetiapine 100 mg PO DAILY 30 tabs 0RF 30 days To quetiapine 400 mg PO DAILY Carmelita Snyder MD Coding Level of Care Code Est Pt Level 3 (57202) Diagnoses Aortic valve sclerosis I35.8 Heart palpitations R00.2
== END 2024-01-30 13:37 | disposition home or self-care (01) ==
PROVIDERS: PCP Registered Nurse; Visit Provider Internal Medicine
DX: I35.8 Other nonrheumatic aortic valve disorders (principal); R00.2 Palpitations
CPT/HCPCS: 99213

== ENCOUNTER → 2024-01-30 13:02 | Outpatient (BNVA) | payer OTHER, SELFPAY | PROVIDERS: PCP Registered Nurse; Visit Provider Internal Medicine | DX: I35.8 Other nonrheumatic aortic valve disorders (principal); R00.2 Palpitations | CPT/HCPCS: 99212 ==

== ENCOUNTER 2024-02-07 15:11 | Emergency (ER) | payer OTHER, SELFPAY ==
--- NOTE | ~2024-02-07 | CT_ITS ---
EXAMINATION: CT ABDOMEN AND PELVIS WITHOUT CONTRAST CLINICAL INFORMATION: Pain, question new ascites COMPARISON: CT abdomen 07/24/2023 TECHNIQUE: Multidetector volumetric imaging was performed from the superior aspect of the liver through the pubic symphysis. Sagittal and coronal reformatted images were obtained on the technologist's workstation. This CT examination was performed using dose optimization techniques as appropriate, variously including the following: *Automated exposure control *Adjustment of mA and/or kV according to patient size (this includes techniques or standardized protocols for targeted exams where dose is matched to indication/reason for exam; i.e. extremities or head) *Use of iterative reconstruction technique DLP: 610 mGy-cm FINDINGS: LUNG BASES: The visualized lung bases are unremarkable. LIVER, GALLBLADDER, AND BILIARY TREE: Hepatomegaly. Right lobe measures 20.3 cm craniocaudal. The liver contour is slightly nodular. Stable small calcification. The liver and spleen attenuation appears similar. No focal hepatic lesion or biliary ductal dilatation is present. Status postcholecystectomy.. PANCREAS: Unremarkable. SPLEEN: Mild splenomegaly measuring 13.2 cm. ADRENAL GLANDS: Unremarkable. KIDNEYS AND URETERS: The kidneys are normal in size, shape, and attenuation. Similar mild fullness of the right renal pelvis. No ureteral calculi seen. BLADDER: Unremarkable. GASTROINTESTINAL TRACT: Stomach is nondistended. No dilated small bowel loops. Diverticuli are scattered throughout the large colon. No findings to suggest diverticulitis are identified. Normal appendix. No significant ascites seen.. No free air. ABDOMINAL WALL: Redemonstrated is an umbilical hernia with diastasis of the rectus abdominis muscles. An unobstructed loop of small bowel protrudes into this. 2 small supraumbilical ventral hernias containing fat are redemonstrated. No inguinal hernia seen. LYMPH NODES: No pathologically enlarged lymph nodes are seen. VASCULAR: No aneurysmal dilatation of the aorta. Scattered atherosclerotic vascular calcification. PELVIC VISCERA: No suspicious findings. Small calcification redemonstrated within the uterus. OSSEOUS STRUCTURES: Redemonstrated posterior spinal fusion at L4-5. Vertebroplasty cement in L2 vertebral body. Depression of the superior endplate of T8 vertebral body, stable from previous. Bilateral hip joint space narrowing. Symphysis pubis degeneration. CT/CT abdomen pelvis wo IV con IMPRESSION: A cause for the patient's pain has not been determined. No significant ascites is seen. Colonic diverticulosis without evidence of diverticulitis. Redemonstrated are multiple findings, which are unchanged as compared to the prior CT of 07/24/2023. This includes hepatomegaly, splenomegaly, as detailed above. Fleischner guidelines were followed. Electronically signed by: Lokesh Colón MD 02/07/2024 10:12 PM [facility] [place]
[2024-02-07 15:16] VITALS: BP 97/65; BP 98/66; PULSE 96; PULSE 97; RESP 18; TEMP 36.5; O2SAT 95; O2SAT 98; BMI 29.4
[2024-02-07 15:44] LABS: MANUAL DIFF FLAG NO
[2024-02-07 15:48] LABS: Basophils Absolute Auto 0.1 X10*3/uL (0.0-0.2); Basophils Percent Auto 0.8 % (0-2); Eosinophils Absolute Auto 0.1 X10*3/uL (0.0-0.4); Eosinophils Percent Auto 1.1 % (0-4); Hematocrit 41.2 % (37.0-47.0); Hemoglobin 13.8 g/dl (12.0-16.0); Imm Gran Abs Auto 0.04 X10*3/uL (0.00-0.03); Imm Gran Pct Auto 0.6 % (0.0-0.4); Lymphocytes Absolute Auto 2.6 X10*3/uL (1.2-4.9); Lymphocytes Percent Auto 36.1 % (20-40); Mean Corpuscular HGB Conc 33.5 g/dl (31.0-35.0); Mean Corpuscular Hemoglobin 29.6 pg (27.0-33.0); Mean Corpuscular Volume 88.2 fL (80.0-98.0); Mean Platelet Volume 9.4 fL (9.4-12.3); Monocytes Absolute Auto 0.6 X10*3/uL (0.1-1.2); Monocytes Percent Auto 8.8 % (2-11); Neutrophils Absolute Auto 3.8 x10*3/uL (2.0-8.3); Neutrophils Percent Auto 52.6 % (45-73); Platelet Count 192 X10*3/uL (160-400); Red Blood Count 4.67 X10*6/uL (4.20-5.50); Red Cell Distribution Width 15.4 % (11.0-16.0); White Blood Count 7.3 X10*3/uL (4.8-10.8)
[2024-02-07 16:03] LABS: Alanine Aminotransferase 22 U/L (0-31); Albumin Level 4.6 g/dL (3.5-5.0); Alkaline Phosphatase 203 U/L (39-117); Anion Gap 18 (12-20); Aspartate Amino Transferase 64 U/L (5-31); Bilirubin Total 1.4 mg/dL (0.0-1.0); Blood Urea Nitrogen 27 mg/dL (9-16); Calcium 10.5 mg/dL (8.4-10.2); Carbon Dioxide 21 mmol/L (22-29); Chloride 102 mmol/L (96-108); Creatinine Clr Calc Pharmacy 22.3; Estimated Glomerular Filt Rate 19; Glucose Random 119 mg/dL (60-115); Potassium 3.5 mmol/L (3.3-5.1); Sodium 137 mmol/L (135-145); Total Protein 8.8 g/dL (6.5-8.0)
--- NOTE | 2024-02-07 16:13 | ED.GENADULT ---
HPI - General Adult General Chief complaint: General Medical Stated complaint: BLADDER/INTESTINAL PAIN PER EMS Time Seen by Provider: 02/07/24 16:08 Source: patient Limitations: no limitations History of Present Illness HPI narrative: Patient is a 63 year old female with a history of frequent UTIs, DM, and CKD who presents today with a suspected UTI. Patient states she has had lower abdominal pain x3 days, nausea, dysuria, urinary frequency, confusion, and chills. She states these symptoms have been worsening since they started. She has become increasingly more confused and her partner states this gets worse at nighttime. He mentions she is often unable to finish her sentence when talking. She has some confusion at baseline that they believe to be dementia, however in the last few days it has become significantly more noticeable. She has been having more trouble urinating and today has been unable to urinate at all. She also mentions increasing weakness that has become significant as of the last two days. Her most recent UTI was a couple of months ago. She denies known fever, SOB, flank pain, hematuria, and sick contacts. Related Data Home Medications ?Medication ?Instructions ?Recorded ?Confirmed blood sugar diagnostic #10 ea 06/25/20 09/22/22 blood-glucose meter (FreeStyle #1 ea 03/02/21 09/22/22 [place] Lite kit) inhalational spacing device #1 ea 03/02/21 09/22/22 (Compact Space Chamber) lancets 33 gauge (TRUEplus Lancets) #100 ea 03/02/21 09/22/22 bupropion HCl 150 mg 24 hr tablet, 150 mg PO QAM 04/19/23 01/30/24 extended release amlodipine 5 mg tablet 5 mg PO DAILY 01/30/24 01/30/24 atorvastatin 80 mg tablet 80 mg PO DAILY 01/30/24 01/30/24 clonidine HCl 0.1 mg tablet 0.1 mg PO BID 01/30/24 01/30/24 quetiapine 100 mg tablet 400 mg PO DAILY 01/30/24 01/30/24 risperidone 0.25 mg tablet mg PO 01/30/24 01/30/24 vitamin E (dl, acetate) 45 mg (100 45 mg PO DAILY 01/30/24 01/30/24 unit) capsule Previous Rx's ?Medication ?Instructions ?Recorded albuterol sulfate 90 mcg/actuation 2 puff inhalation Q4-6H PRN 10/07/20 aerosol inhaler shortness of breath or wheezing #8.5 grams fluticasone fur. 200 mcg-umeclid 1 inh inhalation DAILY 30 days #1 01/19/21 62.5 mcg-vilant 25 mcg ea inhalat.powder (Trelegy Ellipta) duloxetine 60 mg capsule,delayed 60 mg PO DAILY 30 days #30 caps 07/25/23 release theophylline 400 mg 400 mg PO DAILY #30 tabs 12/06/23 tablet,extended release 24 hr Allergies Allergy/AdvReac Type Severity Reaction Status Date / Time oxycodone [Percocet] Allergy Intermediate Itching Verified 02/07/24 15:26 Vicodin Allergy Intermediate itching Uncoded 10/13/23 11:44 Review of Systems Review of Systems: Yes all other systems are reviewed and are negative Constitutional: Constitutional: Reports chills, Reports fatigue, Denies fever(s), Reports frequent falls, Denies headache(s) and Reports weakness Eyes: Eyes: Denies change in vision, Denies diplopia and Denies photophobia ENT: Denies headache(s), Denies post nasal drip, Denies tinnitus and Denies sore throat Cardiovascular: Cardiovascular: Denies Abdominal Distension, Denies chest pain, Denies syncope, Denies edema, Denies leg edema, Denies palpitations and Denies dyspnea Respiratory: Respiratory: Denies cough, Denies dyspnea and Denies wheezing Gastrointestinal: Gastrointestinal: Reports abdominal pain, Denies change in stool character, Denies constipation, Denies diarrhea, Reports nausea and Denies vomiting Genitourinary: Genitourinary: Denies hematuria, Reports difficulty voiding, Reports dysuria, Reports pelvic pain, Denies flank pain, Reports urinary hesitancy, Reports urinary urgency and Denies vaginal discharge Musculoskeletal: Musculoskeletal: Denies arthralgias, Denies joint swelling, Denies numbness, Denies stiffness and Denies tingling Integumentary/Breasts: Skin/Breast: Denies lesions and Denies rash Neurologic: Reports confusion, Denies syncope, Reports frequent falls, Denies headache(s), Reports lack of coordination, Denies numbness, Denies tingling and Reports weakness Psychiatric: Psychiatric: Reports confusion, Denies homicidal ideation and Denies suicidal ideation Endocrine: Endocrine: Reports fatigue and Denies palpitations Allergic/Immunologic: Allergic/Immunologic: Denies wheezing [facility] Past Medical History Attestation statement: The following information was validated with the patient. Medical History ELIZABET (acute kidney injury) Encephalopathy UTI (urinary tract infection) Bacteremia Frequent falls Acute exacerbation of chronic obstructive airways disease Urinary retention with incomplete bladder emptying Steatohepatitis IBS (irritable bowel syndrome) History of colon polyps Dysphagia, pharyngoesophageal phase GERD without esophagitis Hx of hereditary disease Diabetes mellitus Depression Fibromyalgia Surgical History Hx of abdominal surgery History of back surgery History of esophagogastroduodenoscopy (EGD) S/p total knee replacement, bilateral Hx of tubal ligation Hx of cholecystectomy Hx of endoscopy History of colonoscopy Family History Family History Father History of heart attack Hx of type 1 diabetes mellitus Mother Alive and well Social History Social History Household Members: Significant Other Housing: Apartment Do you presently have visiting nurse or other home services: Yes Alcohol intake: former Patient Tobacco Use Status: Former Tobacco user Tobacco use type: Cigarette Cigarette Packs Per Day: 0.5 Cigarettes Per Day: 10.0 Years Smoked: 25 yrs Second Hand Smoke Exposure: No Advance Directives: Yes Advance Directives on File: Yes Advance Directives Date on File: 10/20/20 Do you have a plan to hurt others: No Plan service: No Current occupational status: unemployed Physical Exam ED Vital Signs: Vital Signs - 24 hr 02/07/24 15:16 02/07/24 18:33 02/07/24 22:56 Temperature 97.7 F 97.9 F 98.4 F Pulse Rate 96 93 84 Respiratory Rate 18 17 20 Blood Pressure 97/65 102/67 109/68 Pulse Oximetry 98 99 93 Oxygen Delivery Method Room Air Room Air Room Air BMI result Body Mass Index 29.4 Const General: cooperative, healthy appearing, comfortable, no acute distress, well developed, alert, awake and confusion; No diaphoretic, ill appearing or lethargic Nutritional Appearance: overweight Orientation/consciousness: patient oriented x3, confusion and No lethargic Limitations: no limitations [facility] Head: Yes normal to inspection, Yes normocephalic and Yes atraumatic Eyes General: appearance normal, both eyes and all related structures Visual Stephens: normal visual stephens by confrontation Alignment and Position: alignment normal and position normal Periorbital: periorbital findings normal Eyelids: Yes eyelids normal Conjunctivae: conjunctivae normal Sclerae: sclerae normal Corneas: corneas normal Pupils: Equal, round and reactive pupils present EOM: EOMs intact bilaterally Direct Ophthalmoscopy: No photophobia Neck Neck: Yes full ROM, Yes no lymphadenopathy and Yes no meningeal signs Resp Effort & Inspection: normal respiratory effort, able to speak in complete sentences, no cough, not labored, no nasal flaring and no use of accessory muscles Auscultation: clear to auscultation bilaterally, no rales, no rhonchi and no wheezes Cardio Jugular venous distension: no JVD Rate: regular rate Rhythm: regular rhythm Heart sounds: S1 normal heart sound present and S2 normal heart sound present GI Inspection: Yes normal to inspection, No abdominal wall ecchymosis and No distended Palpation (GI): Soft to palpation, not firm, nontender, no guarding and not rigid General: Yes no CVA tenderness Back/Spine/Pelvis Back: no CVA tenderness, No erythema and No back tenderness Skin Other: warm and dry, no rash General skin exam: no rashes or lesions noted Neuro General: patient oriented x3, no meningeal signs, no focal motor deficits, CN's II-XI intact bilaterally and confusion Cranial nerves: Yes CN's II-XII intact bilaterally, Yes Equal, round and reactive pupils present and Yes Bilaterally intact EOM present Cognition (Neuro): normal cognition Extrem General: Yes normal to inspection, Yes full ROM, Yes capillary refill normal, No clubbing, No cyanosis and No edema Psych Other: calm and cooperative Appearance: grossly normal Mental Status: mental status grossly normal Speech and movement: Normal speech and movement present and Clear speech present Affect: normal affect Attitude: cooperative Thought process: Normal thought process present Thought content: Normal thought content present Insight: Good insight present (Psych) Judgement: Good judgement present (Psych) Medications Administered Discontinued Medications Generic Name Dose Route Start Last Admin Trade Name Freq PRN Reason Stop Dose Admin Sodium Chloride 1,000 mls @ 999 mls/hr 02/07/24 16:30 02/07/24 18:32 Ns IV 02/07/24 17:30 Infused .Q1H1M KIMBERLY Infusion Sodium Chloride 1,000 mls @ 999 mls/hr 02/07/24 18:15 02/07/24 19:45 Ns IV 02/07/24 19:15 Infused .Q1H1M KIMBERLY Infusion Ondansetron HCl 4 mg 02/07/24 18:12 02/07/24 18:32 Ondansetron Hcl 4 Mg/2 Ml Vial IVPUSH 02/07/24 18:13 4 mg ONCE ONE Administration Medical Decision Making Medical Decision Making [facility] Narrative: Fara malhotra PA-C , personally assessed and manage the patient,Zabrina BRIGGS observed and helped to formulate the documentation Patient is a 63 year old female with a history of frequent UTIs, DM, and CKD who presents today with a suspected UTI. Patient states she has had lower abdominal pain x3 days, nausea, dysuria, urinary frequency, confusion, and chills. She states these symptoms have been worsening since they started. She has become increasingly more confused and her partner states this gets worse at nighttime. He mentions she is often unable to finish her sentence when talking. She has some confusion at baseline that they believe to be dementia, however in the last few days it has become significantly more noticeable. She has been having more trouble urinating and today has been unable to urinate at all. She also mentions increasing weakness that has become significant as of the last two days. Her most recent UTI was a couple of months ago. She denies known fever, SOB, flank pain, hematuria, and sick contacts. PMH: frequent UTIs, DM, CKD, fatty liver disease DDx: UTI, pyelonephritis, ELIZABET on CKD, worsening CKD, sepsis Plan: As the patient has a history of UTIs and is have symptoms of dysuria, chills, and abdominal pain, it is possible that she has another UTI. Will assess with UA. It is also possible that she is suffering from pyelonephritis, as she c/o systemic symptoms such as nausea and chills, as well as symptoms. However, she did not have CVA tenderness on exam and is afebrile. Will assess with CBC and UA. Considered sepsis, as she c/o systemic symptoms and a weakened immune system at baseline. Will further assess with CBC and CMP. As the patient already has a diagnosis of CKD, it is possible that she has ELIZABET on CKD or worsening CKD, as she has been unable to pass urine today. However, this would not necessarily explain her systemic symptoms. Will rule out causes of infection first and assess kidney function with CMP. Per Fara Malhotra PA-C Patient here with multiple complaints. She is complaining of lower abdominal pain, concern for urinary tract infection, confusion and weakness. She is not confused she is alert and oriented. Screening labs including a urinalysis have been completed. She does not have a urinary tract infection, her LFTs are elevated, however they are chronically elevated, consistent with her fatty liver. She feels as if her abdomen is bloated, perhaps she is developing ascites, we will obtain a CT scan, my biggest concern is for SBP. If she does have a viable pocket, I will perform a diagnostic tap. I have independently reviewed the following tests: Labs: No leukocytosis, not anemic, creatinine bumped at 2.54, some of the LFTs are chronically elevated, she does have fatty liver, however T bili is 1.[address] abdomen and pelvis: CT/CT abdomen pelvis wo IV con IMPRESSION: A cause for the patient's pain has not been determined. No significant ascites is seen. Colonic diverticulosis without evidence of diverticulitis. Redemonstrated are multiple findings, which are unchanged as compared to the prior CT of 07/24/2023. This includes hepatomegaly, splenomegaly, as detailed above. Fleischner guidelines were followed. Electronically signed by: Lokesh Colón MD 02/07/2024 10:12 PM [facility] No ascites, no acute process, a lot of chronic findings. She feels much improved after the IV fluid. I suggested repeating the creatinine she declines, she will follow up with the primary care provider to make sure her acute kidney injury resolved. Lab Data 02/07/24 15:35 02/07/24 15:35 Labs: Lab Results 02/07/24 02/07/24 Range/Units 15:35 18:14 WBC 7.3 (4.8-10.8) X10*3/uL RBC 4.67 (4.20-5.50) X10*6/uL Hgb 13.8 (12.0-16.0) g/dl Hct 41.2 (37.0-47.0) % MCV 88.2 (80.0-98.0) fL MCH 29.6 (27.0-33.0) pg MCHC 33.5 (31.0-35.0) g/dl RDW 15.4 (11.0-16.0) % Plt Count 192 (160-400) X10*3/uL MPV 9.4 (9.4-12.3) fL Immature Gran % (Auto) 0.6 H (0.0-0.4) % Neut % (Auto) 52.6 (45-73) % Lymph % (Auto) 36.1 (20-40) % [place] % (Auto) 8.8 (2-11) % Eos % (Auto) 1.1 (0-4) % Baso % (Auto) 0.8 (0-2) % Lymph # (Auto) 2.6 (1.2-4.9) X10*3/uL [place] # (Auto) 0.6 (0.1-1.2) X10*3/uL Eos # (Auto) 0.1 (0.0-0.4) X10*3/uL Baso # (Auto) 0.1 (0.0-0.2) X10*3/uL Abs Immat Gran (auto) 0.04 H (0.00-0.03) X10*3/uL Absolute Neuts (auto) 3.8 (2.0-8.3) x10*3/uL Absolute Nucleated RBC 0.000 (0.0-0.012) X10*3/uL Nucleated RBC % (auto) 0.0 (0.0-0.2) /100WBC Sodium 137 (135-145) mmol/L Potassium 3.5 (3.3-5.1) mmol/L Chloride 102 (96-108) mmol/L Carbon Dioxide 21 L (22-29) mmol/L Anion Gap 18 (12-20) BUN 27 H (9-16) mg/dL Creatinine 2.54 H (0.5-1.4) mg/dL Estim Creat Clear Calc 22.3 Estimated GFR 19 Random Glucose 119 H (60-115) mg/dL Calcium 10.5 H D (8.4-10.2) mg/dL Total Bilirubin 1.4 H (0.0-1.0) mg/dL AST 64 H (5-31) U/L ALT 22 (0-31) U/L Alkaline Phosphatase 203 H (39-117) U/L Total Protein 8.8 H (6.5-8.0) g/dL Albumin 4.6 (3.5-5.0) g/dL Urine Color Dark Yellow Urine Appearance Cloudy Urine pH 5.5 (5.0-9.0) Ur Specific [place] 1.015 (1.005-1.025) Urine Protein 30 (1+) H (Neg-Trace) mg/dL Urine Glucose (UA) Negative (Negative) mg/dL Urine Ketones Negative (Negative) mg/dL Urine Blood Negative (Negative) Urine Nitrite Negative (Negative) Ur Leukocyte Esterase Large (3+) H (Negative) Urine RBC 0-2 (0-2) /HPF Urine WBC 6-10 (0-5) /HPF Ur Squamous Epith Cells 3-5 (0-2) /HPF Urine Bacteria None Seen (None Seen) Hyaline Casts 3-5 (0-2) /LPF Discharge Plan Discharge Clinical Impression: Abdominal pain, Dehydration Patient Disposition: Home, Self-Care Instructions: Abdominal Pain (ED), Dehydration (ED) Additional Instructions: You were found to be clinically dehydrated, this could be the cause of your symptoms. You were much improved after receiving IV fluid hydration. You do not have a urinary tract infection, there were no other lab abnormalities other than a rise in your kidney function. You need to follow up with your primary care provider to make sure your kidney function has normalized. There were no acute findings on the CT scan. Prescriptions: No Action albuterol sulfate 90 mcg/actuation HFA aerosol inhaler 2 puff inhalation Q4-6H PRN (Reason: shortness of breath or wheezing) Qty: 8.5 0RF bupropion HCl 150 mg tablet extended release 24 hr 150 mg PO QAM duloxetine 60 mg Capsule,Delayed Release(Dr/Ec) 60 mg PO DAILY 30 Days Qty: 30 0RF (DME) blood sugar diagnostic Strip See Rx Instructions Not Applicable BID Qty: 10 Rx Instructions: As directed (DME) blood-glucose meter [FreeStyle [place] Lite] Kit See Rx Instructions .ROUTE .MEDSUPPLY Qty: 1 Rx Instructions: As directed (DME) Compact Space Chamber Spacer See Rx Instructions .ROUTE .MEDSUPPLY Qty: 1 Rx Instructions: As directed (DME) lancets [TRUEplus Lancets] 33 gauge misc See Rx Instructions Not Applicable BID Qty: 100 Rx Instructions: As directed Trelegy Ellipta 200-62.5-25 mcg blister with device 1 inh inhalation DAILY 30 Days Qty: 1 6RF atorvastatin 80 mg tablet 80 mg PO DAILY clonidine HCl 0.1 mg tablet 0.1 mg PO BID amlodipine 5 mg tablet 5 mg PO DAILY risperidone 0.25 mg tablet PO quetiapine 100 mg tablet 400 mg PO DAILY vitamin E (dl, acetate) 45 mg (100 unit) capsule 45 mg PO DAILY theophylline 400 mg tablet extended release 24 hr 400 mg PO DAILY Qty: 30 6RF Print Language: Ukrainian
[2024-02-07] MEDS: 0.9 % Sodium Chloride 1,000 ML 999 ML IV ×2 (16:42→18:32)
[2024-02-07 18:30] LABS: Appearance Urine Cloudy; Color Urine Dark Yellow; Glucose Urine UA Negative (Negative); Leukocyte Esterase Urine Large (3+) (Negative); Nitrite Urine Negative (Negative); PH 5.5 (5.0-9.0); Specific Gravity - Urine 1.015 (1.005-1.025); UMIC TRIGGER UACC YES; Urine Blood Negative (Negative); Urine Ketones Negative (Negative); Urine Protein 30 (1+) mg/dL (Neg-Trace)
[2024-02-07] MEDS: ondansetron HCL 4 MG/2 ML VIAL IVPUSH (18:32)
[2024-02-07 18:33] VITALS: BP 102/67; PULSE 93; RESP 17; TEMP 36.6; O2SAT 99
[2024-02-07 18:44] LABS: Bacteria Urine None Seen (None Seen); RBC Urine 0-2 /HPF (0-2); UACC Culture Trigger YES
--- NOTE | 2024-02-07 19:30 | PC.NURSE ---
This RN assumed pt care @ 1900. Pt a&ox3, no signs of distress. Pt lying in bed watching TV. Pt reporting 7/10 abd pain. Pts at bedside Plan of care ongoing.
--- NOTE | 2024-02-07 20:58 | PC.NURSE ---
Pt assisted oob, pt ambulates with walker and slow steady gait to restroom. Plan of care ongoing.
[2024-02-07 22:56] VITALS: BP 109/68; PULSE 84; RESP 20; TEMP 36.9; O2SAT 93
[2024-02-07 23:33] VITALS: BP 109/68; PULSE 84; RESP 20; TEMP 36.9; O2SAT 93
== END 2024-02-07 23:35 | disposition home or self-care (01) ==
PROVIDERS: Emergency Provider Emergency Medicine Emergency Medical Services; PCP Registered Nurse
DX: R10.2 Pelvic and perineal pain (principal); E86.0 Dehydration; E11.9 Type 2 diabetes mellitus without complications; Z87.440 Personal history of urinary (tract) infections; Z87.891 Personal history of nicotine dependence; Z79.02 Long term (current) use of antithrombotics/antiplatelets; Z79.899 Other long term (current) drug therapy
CPT/HCPCS: 36415; 74176; 80053; 81001; 85025; 87086; 96361; 96374; 99284; J2405

== ENCOUNTER 2024-02-16 07:50 | Outpatient (AMB) | payer OTHER, SELFPAY ==
--- NOTE | 2024-02-16 07:54 | A.OFFVIS_ITS ---
Vital Signs 02/16/24 07:56 Height 5 ft 3 in Weight 162 lb BMI 28.7 BP 107/63 Blood Pressure Location Lt brachial Position Sitting Pulse 92 Intake Visit Reasons: Cirrhosis Intake Note: Patient yearly follow up for Cirrhosis. Patient cc: nauseas, abdominal pain, acid reflex, some difficulty swallowing and between diarrhea and constipation. 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: No Accompanied by: Self / Same As Patient Allergies oxycodone [Percocet] Allergy (Intermediate, Verified 02/16/24 07:54) Itching Vicodin Allergy (Intermediate, Uncoded 10/13/23 11:44) itching Medication List - Last Reconciled 02/16/24 by Holland Bautista MD albuterol sulfate 90 mcg/actuation 2 puffs inhalation Q4-6H PRN amlodipine 5 mg PO DAILY atorvastatin 80 mg PO DAILY blood sugar diagnostic As directed blood-glucose meter (FreeStyle [place] Lite kit) As directed bupropion HCl XL 150 mg PO QAM clonidine HCl 0.1 mg PO BID duloxetine 60 mg PO DAILY 30 days nclyamxnvur-aonfjyhvo-oztsafst 200-62.5-25 mcg (Trelegy Ellipta) 1 inh inhalation DAILY 30 days inhalational spacing device (Compact Space Chamber) As directed lancets (TRUEplus Lancets) As directed quetiapine 400 mg PO DAILY risperidone mg PO theophylline ER 400 mg PO DAILY vitamin E (dl, acetate) 45 mg PO DAILY HPI HPI Cirrhosis: Details: GI CLINIC VISIT FOR THIS 63-YEAR-OLD FEMALE FOR FOLLOW-UP OF GERD, HEPATIC STEATOSIS COMPICATED BY EARLY CIRRHOSIS AND DIVERTICULOSIS. CHRONIC ILLNESSES: Fibromyalgia, DJD, cervical spondylosis, depression and DM. ? TODAY'S VISIT Patient cc: nauseas, abdominal pain, acid reflex, some difficulty swallowing and between diarrhea and constipation. Complains of intermittent 8/10 lower abdominal pain radiating to the back No change in abd pain after eating or after she has a BM. Has been eating poorly - will take a few spoonfuls and unable to eat and starts gagging - lost 30 lbs since Apr, 2023 Constipation is good - taking Linzess. Intermittent diarrhea. Stopped taking muscle relaxant (tizanidine) PAST VISIT: Continues to have dysphagia and waiting for EGD and Colon appt. Constipation is OK and having a BM every other day to every 2 days Has gained 25 lbs - has ankle edema. 11/[address] [facility] and transferred to [facility] for bowel ischemia: CT scan showed: 1. Findings compatible with ischemia of the rectosigmoid colon evidence by pneumatosis, adjacent pericolonic venous gas, and portal venous gas. No intra-abdominal free air is suggest perforation. 2. Multiple mildly dilated small bowel loops throughout the abdomen without discrete transition consistent with ileus. 3. Hepatomegaly and findings suggesting underlying hepatic fibrosis/cirrhosis. Had a lousy summer - two surgeries on the lower back (cyst on the right side in September and 4 cysts on the right side in Feb) Transferred to [facility] for urgent exploratory lap for bacteria in the intestine - per patient - everything was dying No intestinal resection was performed. Is feeling better and lost some weight. Complains of constipation - BM every 3 days. Continues to have intermittent heartburn and dysphagia to solid food every other day. Hospitalized x 2 in jan and Feb, 2021 - diagnosed with COPD and on Home O2 (2 litres/min) and doing pulmonary rehab. Heartburn and nausea is still making her sick. Doing Ok - continues to have gas, bloating, abdominal pain 4-5 days/week and lasts 1/2 a day. Has diarrhea 4 days per week and constipation 2 days per week Notes more pain when she has diarrhea Denies change in abdominal pain with BM or passage of gas. Started seeing Dr Boone since she has trouble peeing - started on a medication which did not work. Now on a 2nd medication which is helping partially. Lab results were reviewed with the patient Intentional wt loss of 12 lbs followed by improvement in LFTs. Planning to celebrate her Mom's 80th BD this year with sister from [place]. And plans to travel to [place] next year LABS IN [facility]:?05/18/19 reviewed, inr 1.1 ? 12/19 liver fibrosis score was 0.50 and liver fibrosis stage was F2 ? IMAGING STUDIES: 01/22 ABD US SHOWED: LIVER: The liver is normal in size. There is prominence of the left lobe and caudate lobe and slightly irregular contour of the liver suggestive of mild cirrhosis. Parenchymal echogenicity is normal. No focal hepatic lesion. There is no intrahepatic biliary duct dilatation seen. The main portal vein is patent with appropriate hepatopedal flow. GALLBLADDER: Surgically absent. 08/06/[address] SCAN SHOWED: ? Enlarged fatty liver with changes of mild cirrhosis. Diverticulosis and ? large amount of stool in the colon suggestive of constipation. ? Prominent pelvic vessels questionable for pelvic congestion. Abdominal wall hernias. 09/24/19 Gastric Emptying Study showed: ? Retention in the stomach at each time interval was: ? 1 hour 74% (normal 37%-90%) ? 2 hours 32% (normal 30%-60%) ? 3 hours 5% ? 4 hours (Not Obtained) (normal 0%-10%) ?06/19 ABD US SHOWED: ? IMPRESSION: ? 1. There is generalized increase in hepatic echotexture, consistent with fatty infiltration or hepatocellular disease. ? Please correlate clinically. ? No focal hepatic mass or intrahepatic biliary dilatation is seen. ? 2. There is a diminished periportal lymph node, as above. ?ENDOSCOPIC PROCEDURES: 10/18/22 EGD AND COLON SHOWED: ESOPHAGUS: Tortuous esophagus with increased tertiary contractions without stricture or ring. GE junction at 38 cms. A 1 cms tongue of possible Jackson's - biopsies were obtained. Esophageal balloon dilation was performed with a 20 mm (60 F) CRE balloon x 60 seconds. STOMACH: Mild gastritis Colonoscopy Findings: One medium sized polyp removed Random biopsies were obtained from right and left colon to check for microscopic colitis Moderate diverticulosis seen in the entire colon, left > right Moderate hemorrhoids on retroflexed exam. Plan: Patient has an appointment on 12/29/22 in the GI Clinic with Holland Bautista M.D. Repeat Colonoscopy interval based on path results - in 3 years if polyps are adenomatous and 10 years if polyps are hyperplastic BIOPSIES SHOWED: A. Gastroesophageal junction, biopsy: Squamocolumnar mucosa with mild acute and chronic inflammation; negative for intestinal metaplasia and dysplasia. B. Colon, ascending, polyp: Tubular adenoma; negative for high-grade dysplasia and carcinoma. C. Colon, right, biopsy: Colonic mucosa with scattered pigmented lamina propria macrophages suggesting melanosis coli, otherwise no specific change; no evidence of microscopic colitis. D. Colon, left, biopsy: Colonic mucosa with scattered pigmented lamina propria macrophages suggesting melanosis coli, otherwise no specific change; no evidence of microscopic colitis. 03/30/21 EGD SHOWED: STOMACH: Antral gastritis with a single 1-2 mm pre-pyloric erosion DUODENUM: Normal -biopsied to check for celiac sprue biopsies showed: A.? Small bowel, biopsy:? Small intestinal mucosa within normal limits; negative for celiac disease. B.? Stomach, biopsy:? Reactive gastropathy with background chronic active inflammation; no Helicobacter organisms seen. 07/30/19 EGD AND COLONOSCOPY SHOWED: ? ESOPHAGUS: Changes suggestive of esophageal motility disorder ? STOMACH: Gastritis ? Colonoscopy Findings: ? No polyps were detected, random biopsies were obtained from the colon. ? Moderate diverticulosis seen in the entire colon ? Moderate hemorrhoids on retroflexed exam. ? Plan: ? Patient has an appointment on 08/15/19 in the GI Clinic with Holland Bautista M.D. ? Repeat Colonoscopy interval based on path results - in 3 years due to past history of ? multiple adenomatous polyps. ?BIOPSIES SHOWED: ? A. Small bowel, biopsy: Duodenal mucosa with focal mildly increased ? intraepithelial lymphocytes and perserved villous architecture. See comment. ? B. Stomach, antrum, biopsy: Antral-type mucosa with mild chronic inactive ? inflammation; no Helicobacter organisms seen. ? C. Esophagus, proximal, biopsy: Squamous epithelium within normal limits; no ? inflammation seen; diagnostic features of eosinophilic esophagitis not seen. ? D. Colon, random, biopsy: Colonic mucosa within normal limits; [facility] Medical History ELIZABET (acute kidney injury) Encephalopathy UTI (urinary tract infection) Bacteremia Frequent falls Acute exacerbation of chronic obstructive airways disease Urinary retention with incomplete bladder emptying Steatohepatitis IBS (irritable bowel syndrome) History of colon polyps Dysphagia, pharyngoesophageal phase GERD without esophagitis Hx of hereditary disease Diabetes mellitus Depression Fibromyalgia Surgical History Hx of abdominal surgery History of back surgery History of esophagogastroduodenoscopy (EGD) S/p total knee replacement, bilateral Hx of tubal ligation Hx of cholecystectomy Hx of endoscopy History of colonoscopy Family History Father History of heart attack Hx of type 1 diabetes mellitus Mother Alive and well Social History Household Members: Significant Other Housing: Apartment Do you presently have visiting nurse or other home services: Yes Alcohol intake: former Patient Tobacco Use Status: Former Tobacco user Tobacco use type: Cigarette Cigarette Packs Per Day: 0.5 Cigarettes Per Day: 10.0 Years Smoked: 25 yrs Second Hand Smoke Exposure: No Advance Directives Date on File: 10/20/20 service: No Current occupational status: unemployed Review of Systems Const All systems reviewed & are unremarkable except as noted in HPI and below Physical Exam Vital Signs: Last Vital Signs Pulse 92 02/16/24 07:56 BP 107/63 02/16/24 07:56 BMI result Body Mass Index 28.7 Const General: healthy appearing and no acute distress Nutritional Appearance: overweight Orientation/consciousness: patient oriented x3 Limitations: no limitations HEENT Head: Yes normal to inspection Ears: hearing grossly normal bilaterally Eyes Sclerae: sclerae normal Pupils: Equal, round and reactive pupils present Neck Neck: Yes normal visual inspection Chest Chest palpation & inspection: normal inspection of the chest Resp Effort & Inspection: normal respiratory effort Auscultation: clear to auscultation bilaterally Cardio Palpation: normal PMI Rate: regular rate Rhythm: regular rhythm Heart sounds: S1 normal heart sound present, S2 normal heart sound present and no murmurs GI Palpation (GI): Soft to palpation, nontender and No hepatosplenomegaly present Auscultation: normal bowel sounds Rectal Exam - Female: deferred Skin General skin exam: no rashes or lesions noted Neuro General: patient oriented x3, gait normal and moves all extremities Cranial nerves: Yes Equal, round and reactive pupils present Psych Appearance: grossly normal Mental Status: mental status grossly normal Assessment & Plan Assessment & Plan (1) GERD without esophagitis: Code(s): K21.9 - Gastro-esophageal reflux disease without esophagitis Category: Medical (2) Dysphagia, pharyngoesophageal phase: Comment: No stricture or ring noted on EGD - likely due to esophageal motility disorder Code(s): R13.14 - Dysphagia, pharyngoesophageal phase Category: Medical (3) History of colon polyps: Comment: 07/21 Colonoscopy showed moderate diverticulosis in the entire colon and hemorrhoids and no polyps. Repeat colonoscopy in 3 years - due July 2022 Code(s): Z86.010 - Personal history of colon polyps Category: Medical (4) IBS (irritable bowel syndrome): Comment: With diarrhea and constipation Code(s): K58.9 - Irritable bowel syndrome, unspecified Category: Medical (5) Cirrhosis: Code(s): K74.60 - Unspecified cirrhosis of liver Category: Medical (6) Nausea: Code(s): R11.0 - Nausea Category: Medical (7) Abdominal bloating: Code(s): R14.0 - Abdominal distension (gaseous) Category: Medical Plan 63 YF with fibromyalgia, DJD, cervical spondylosis, depression and DM followed in GI for GERD, dysphagia and a history of adenomatous colon polyps. Patient had a fatty liver on past ultrasound. 12/19 liver fibrosis score was 0.50 and liver fibrosis stage was F2. 07/21 EGD showed gastritis and changes suggestive of esophageal motility disorder Colonoscopy showed moderate diverticulosis in the entire colon and hemorrhoids and no polyps 09/2019 A gastric emptying study was normal. Patient was advised to continue omeprazole 20 mg twice daily and dicyclomine 20 mg twice daily. She was advised a trial of gluten free diet for symptoms of IBS with partial improvement in her symptoms. Patient was advised further evaluation with lab and stool tests and an abdominal CT scan to rule out IBD causing abdominal pain and diarrhea. 11/2021 CT scan showed early cirrhosis. Patient was started on linaclotide 145 mcg daily for constipation and advised to stop dicyclomine since it was not helpful REDUCING THE RISK OF LIVER PROGRESSION:??patient was advised to completely avoid use of alcohol and lose weight. Being obese puts her at risk of progressive steatotic liver injury and she needs to try to lose 10% of her body weight. She should restrict the calorie intake, most importantly intake of sugar /sucrose/fructose ?HCC SURVEILLANCE:?? the patient is at risk of developing hepatocellular c arcinoma given the presence of cirrhosis and need 6 monthly imaging surveillance with either abdominal ultrasound (US) or multiphase cross-sectional imaging (CT or MRI).? Last Abd CT SCAN in 02/2024 had shown no focal liver lesions suspicious of HCC.? She will be scheduled for follow-up? liver ultrasound in 6 months for ongoing surveillance.? QUESTION OF LIVER TRANSPLANTATION:?? As pt has never had any hepatic decompensation, and continues to have good hepatic synthetic function with meld score of 9, liver transplantation does not need to be considered at this? 10/18/22 EGD (dysphagia) and colonoscopy was performed and results as noted. Repeat colon advised in 3 yrs (due 10/2025) 02/16/24 Complains of nausea, lower abdominal pain and wt loss Constipation is good - taking Linzess. Intermittent diarrhea. Pt advised trail of simethicone and andansetron FU in 6 weeks Orders: Orders 2 US abdomen limited 02/16/24 K74.60 - Unspecified cirrhosis of liver Comprehensive Met. Panel 02/16/24 K74.60 - Unspecified cirrhosis of liver Liver Fibrosis Pnl 02/16/24 K74.60 - Unspecified cirrhosis of liver Medications: New ondansetron 4 mg PO Q8H PRN 60 tabs 3RF nausea and vomiting 30 days R11.0 - Nausea simethicone (Gas Relief (simethicone)) 125 mg PO BID-QID PRN 90 caps 1RF abdominal distention 30 days R14.0 - Abdominal distension (gaseous) omeprazole 20 mg PO BID 180 tabs 1RF 90 days K21.9 - Gastro-esophageal reflux disease without esophagitis Coding Level of Care Code Est Pt Level 4 (07128) Diagnoses GERD without esophagitis K21.9 Dysphagia, pharyngoesophageal phase R13.14 History of colon polyps Z86.010 IBS (irritable bowel syndrome) K58.9 Cirrhosis K74.60 Nausea R11.0 Abdominal bloating R14.0
[2024-02-16 07:56] VITALS: BP 107/63; PULSE 92; BMI 28.7
== END 2024-02-16 08:42 | disposition home or self-care (01) ==
PROVIDERS: PCP Registered Nurse; Visit Provider Internal Medicine Gastroenterology
DX: K21.9 Gastro-esophageal reflux disease without esophagitis (principal); R13.14 Dysphagia, pharyngoesophageal phase; Z86.0100 Personal history of colon polyps, unspecified; K58.9 Irritable bowel syndrome, unspecified; K74.60 Unspecified cirrhosis of liver; R11.0 Nausea; R14.0 Abdominal distension (gaseous)
CPT/HCPCS: 99214

== ENCOUNTER 2024-02-16 07:50 | Outpatient (REF) | payer OTHER, SELFPAY ==
[2024-02-16 10:12] LABS: Alanine Aminotransferase 22 U/L (0-31); Albumin Level 4.2 g/dL (3.5-5.0); Alkaline Phosphatase 203 U/L (39-117); Anion Gap 11 (12-20); Aspartate Amino Transferase 54 U/L (5-31); Bilirubin Total 0.8 mg/dL (0.0-1.0); Blood Urea Nitrogen 9 mg/dL (9-16); Calcium 9.9 mg/dL (8.4-10.2); Carbon Dioxide 28 mmol/L (22-29); Chloride 102 mmol/L (96-108); Estimated Glomerular Filt Rate > 60; Glucose Random 113 mg/dL (60-115); Potassium 3.4 mmol/L (3.3-5.1); Sodium 138 mmol/L (135-145); Total Protein 8.2 g/dL (6.5-8.0)
[2024-02-23 15:43] LABS: FIB-ALT 17 U/L (6-29); FIB-Alpha-2-Macroglobulin 348 mg/dL (106-279); FIB-Apolipoprotein A1 129 mg/dL (101-198); FIB-GGT 228 U/L (3-65); FIB-Haptoglobin 372 mg/dL (43-212); FIB-Total Bilirubin 0.7 mg/dL (0.2-1.2); Liver Fibrosis Score 0.65; Liver Fibrosis Stage F3; Nec Inflam Act Grade A0; Reference ID 5216074
== END 2024-02-16 07:51 | disposition home or self-care (01) ==
LOC: HO.LAB 07:50
PROVIDERS: PCP Registered Nurse; Visit Provider Internal Medicine Gastroenterology
DX: K74.60 Unspecified cirrhosis of liver (principal); K21.9 Gastro-esophageal reflux disease without esophagitis; R13.14 Dysphagia, pharyngoesophageal phase; Z86.0100 Personal history of colon polyps, unspecified; K58.9 Irritable bowel syndrome, unspecified; R11.0 Nausea; R14.0 Abdominal distension (gaseous)
CPT/HCPCS: 36415; 80053; 81596; 99212

== ENCOUNTER 2024-03-05 09:57 | Outpatient (REF) | payer OTHER, SELFPAY ==
--- NOTE | ~2024-03-05 | MR_ITS ---
EXAMINATION: MR CERVICAL SPINE WITHOUT CONTRAST CLINICAL INFORMATION: Worsening right-sided cervical radiculopathy for 1 month COMPARISON: MRI cervical spine on 08/27/2013 TECHNIQUE: MRI of the cervical spine was obtained using routine sequences without contrast. FINDINGS: The imaged posterior fossa is unremarkable. Straightening of the normal cervical lordosis. Grade 1 anterolisthesis at C3-4 and C7-T1. Sequelae of anterior spinal fusion at C4-5. Otherwise, no acute bone marrow abnormality. The vertebral body heights are preserved. Multilevel disc desiccation and disc height loss, worse and severe at C6-7. The visualized spinal cord is normal in caliber. No abnormal cord signal. C2-3: Bilateral facet arthrosis. No significant spinal canal stenosis. Mild to moderate right neural foraminal narrowing. C3-4: Disc osteophyte complex, bilateral uncovertebral hypertrophy, and bilateral facet arthrosis. Severe right and moderate to severe left neural foraminal narrowing. No since and spinal canal stenosis. C4-5: Postsurgical changes. No significant spinal canal or neural foraminal narrowing. C5-6: No significant spinal canal or neural foraminal narrowing. C6-7: Disc osteophyte complex, bilateral uncovertebral hypertrophy, and bilateral facet arthrosis. Severe right neural foraminal narrowing. Minimal right eccentric spinal canal stenosis. C7-T1: Disc osteophyte complex, bilateral uncovertebral hypertrophy, bilateral facet arthrosis, and ligamentum flavum hypertrophy. Mild to moderate spinal canal stenosis. Severe left and mild right neural foraminal narrowing. T1-2: Diffuse disc bulge. No significant spinal canal or neural foraminal narrowing. The paravertebral soft tissues are unremarkable. The imaged lung apices are clear. MR/MR cervical spine wo con IMPRESSION: 1. Sequelae of anterior spinal fusion at C4-5. 2. Multilevel cervical spondylosis as described above with mild to moderate spinal canal stenosis at C7-T1 and minimal right eccentric spinal canal stenosis at C6-7. 3. Multilevel neural foraminal narrowing which is severe on the right at C3-4, on the right at C6-7, and on the left at C7-T1. Electronically signed by: Vale Flowers MD 03/05/2024 01:42 PM [facility] [place]
== END 2024-03-05 09:58 | disposition home or self-care (01) ==
LOC: HO.MRI 09:57
PROVIDERS: PCP Registered Nurse; Visit Provider Registered Nurse
DX: M54.12 Radiculopathy, cervical region (principal)
CPT/HCPCS: 72141

== ENCOUNTER 2024-04-05 07:12 | Outpatient (AMB) | payer OTHER, SELFPAY ==
--- NOTE | 2024-04-05 07:15 | A.OFFVIS_ITS ---
Vital Signs 04/05/24 07:18 Height 5 ft 3 in Weight 165 lb BMI 29.2 BP 92/50 L Blood Pressure Location Lt brachial Position Sitting Pulse 104 H Intake Visit Reasons: Cirrhosis Intake Note: Patient follow up for Cirrhosis and lab results. Patient cc: nauseas, abdominal pain, acid reflex with burning sensation, between diarrhea and constipation, also central scheduling called pt several times to s/c US with out any respond. Hospital Account Manager Required: No Accompanied by: Self / Same As Patient Allergies oxycodone [Percocet] Allergy (Intermediate, Verified 04/05/24 07:15) Itching Vicodin Allergy (Intermediate, Uncoded 10/13/23 11:44) itching Medication List - Last Reconciled 04/05/24 by Holland Bautista MD albuterol sulfate 90 mcg/actuation 2 puffs inhalation Q4-6H PRN amlodipine 5 mg PO DAILY atorvastatin 80 mg PO DAILY blood sugar diagnostic As directed blood-glucose meter (FreeStyle [place] Lite kit) As directed bupropion HCl XL 150 mg PO QAM clonidine HCl 0.1 mg PO BID duloxetine 60 mg PO DAILY 30 days oygznnphxnx-lhknhwvtf-jfhgylpg 200-62.5-25 mcg (Trelegy Ellipta) 1 inh inhalation DAILY 30 days inhalational spacing device (Compact Space Chamber) As directed lancets (TRUEplus Lancets) As directed omeprazole 20 mg PO BID 90 days ondansetron 4 mg PO Q8H PRN 30 days quetiapine 400 mg PO DAILY risperidone mg PO simethicone (Gas Relief (simethicone)) 125 mg PO BID-QID PRN 30 days theophylline ER 400 mg PO DAILY vitamin E (dl, acetate) 45 mg PO DAILY HPI HPI Cirrhosis: Details: GI CLINIC VISIT FOR THIS 63-YEAR-OLD FEMALE FOR FOLLOW-UP OF GERD, HEPATIC STEATOSIS COMPLICATED BY EARLY CIRRHOSIS AND DIVERTICULOSIS. CHRONIC ILLNESSES: Fibromyalgia, DJD, cervical spondylosis, depression and DM. ? TODAY'S VISIT Patient cc: nauseas, abdominal pain, acid reflex with burning sensation, between diarrhea and constipation, also central scheduling called pt several times to s/c US with out any respond (Pt states her phone is not working properly) Denies any change in symptoms Pt avoids milk products - likely has lactose intolerance Complains of intermittent 8/10 lower abdominal pain radiating to the back No change in abd pain after eating or after she has a BM. Appetite fluctuates depending on the day. Wt has been stable over the past 6 weeks. PAST VISIT: Has been eating poorly - will take a few spoonfuls and unable to eat and starts gagging - lost 30 lbs since Apr, 2023 Constipation is good - taking Linzess. Intermittent diarrhea. Stopped taking muscle relaxant (tizanidine) Continues to have dysphagia and waiting for EGD and Colon appt. Constipation is OK and having a BM every other day to every 2 days Has gained 25 lbs - has ankle edema. 11/2021 Pt seen at [facility] and transferred to [facility] for bowel ischemia: CT scan showed: 1. Findings compatible with ischemia of the rectosigmoid colon evidence by pneumatosis, adjacent pericolonic venous gas, and portal venous gas. No intra-abdominal free air is suggest perforation. 2. Multiple mildly dilated small bowel loops throughout the abdomen without discrete transition consistent with ileus. 3. Hepatomegaly and findings suggesting underlying hepatic fibrosis/cirrhosis. Had a lousy summer - two surgeries on the lower back (cyst on the right side in September and 4 cysts on the right side in Feb) Transferred to [facility] for urgent exploratory lap for bacteria in the intestine - per patient - everything was dying No intestinal resection was performed. Is feeling better and lost some weight. Complains of constipation - BM every 3 days. Continues to have intermittent heartburn and dysphagia to solid food every other day. Hospitalized x 2 in jan and Feb, 2021 - diagnosed with COPD and on Home O2 (2 litres/min) and doing pulmonary rehab. Heartburn and nausea is still making her sick. Doing Ok - continues to have gas, bloating, abdominal pain 4-5 days/week and lasts 1/2 a day. Has diarrhea 4 days per week and constipation 2 days per week Notes more pain when she has diarrhea Denies change in abdominal pain with BM or passage of gas. Started seeing Dr Boone since she has trouble peeing - started on a medication which did not work. Now on a 2nd medication which is helping partially. Lab results were reviewed with the patient Intentional wt loss of 12 lbs followed by improvement in LFTs. Planning to celebrate her Mom's 80th BD this year with sister from [place]. And plans to travel to [place] next year LABS IN HouseCall:?05/18/19 reviewed, inr 1.1 ? 12/19 liver fibrosis score was 0.50 and liver fibrosis stage was F2 ? IMAGING STUDIES: 01/22 ABD US SHOWED: LIVER: The liver is normal in size. There is prominence of the left lobe and caudate lobe and slightly irregular contour of the liver suggestive of mild cirrhosis. Parenchymal echogenicity is normal. No focal hepatic lesion. There is no intrahepatic biliary duct dilatation seen. The main portal vein is patent with appropriate hepatopedal flow. GALLBLADDER: Surgically absent. 08/06/[address] SCAN SHOWED: ? Enlarged fatty liver with changes of mild cirrhosis. Diverticulosis and ? large amount of stool in the colon suggestive of constipation. ? Prominent pelvic vessels questionable for pelvic congestion. Abdominal wall hernias. 09/24/19 Gastric Emptying Study showed: ? Retention in the stomach at each time interval was: ? 1 hour 74% (normal 37%-90%) ? 2 hours 32% (normal 30%-60%) ? 3 hours 5% ? 4 hours (Not Obtained) (normal 0%-10%) ?06/19 ABD US SHOWED: ? IMPRESSION: ? 1. There is generalized increase in hepatic echotexture, consistent with fatty infiltration or hepatocellular disease. ? Please correlate clinically. ? No focal hepatic mass or intrahepatic biliary dilatation is seen. ? 2. There is a diminished periportal lymph node, as above. ?ENDOSCOPIC PROCEDURES: 10/18/22 EGD AND COLON SHOWED: ESOPHAGUS: Tortuous esophagus with increased tertiary contractions without stricture or ring. GE junction at 38 cms. A 1 cms tongue of possible Jackson's - biopsies were obtained. Esophageal balloon dilation was performed with a 20 mm (60 F) CRE balloon x 60 seconds. STOMACH: Mild gastritis Colonoscopy Findings: One medium sized polyp removed Random biopsies were obtained from right and left colon to check for microscopic colitis Moderate diverticulosis seen in the entire colon, left > right Moderate hemorrhoids on retroflexed exam. Plan: Patient has an appointment on 12/29/22 in the GI Clinic with Holland Bautista M.D. Repeat Colonoscopy interval based on path results - in 3 years if polyps are adenomatous and 10 years if polyps are hyperplastic BIOPSIES SHOWED: A. Gastroesophageal junction, biopsy: Squamocolumnar mucosa with mild acute and chronic inflammation; negative for intestinal metaplasia and dysplasia. B. Colon, ascending, polyp: Tubular adenoma; negative for high-grade dysplasia and carcinoma. C. Colon, right, biopsy: Colonic mucosa with scattered pigmented lamina propria macrophages suggesting melanosis coli, otherwise no specific change; no evidence of microscopic colitis. D. Colon, left, biopsy: Colonic mucosa with scattered pigmented lamina propria macrophages suggesting melanosis coli, otherwise no specific change; no evidence of microscopic colitis. 03/30/21 EGD SHOWED: STOMACH: Antral gastritis with a single 1-2 mm pre-pyloric erosion DUODENUM: Normal -biopsied to check for celiac sprue biopsies showed: A.? Small bowel, biopsy:? Small intestinal mucosa within normal limits; negative for celiac disease. B.? Stomach, biopsy:? Reactive gastropathy with background chronic active inflammation; no Helicobacter organisms seen. 07/30/19 EGD AND COLONOSCOPY SHOWED: ? ESOPHAGUS: Changes suggestive of esophageal motility disorder ? STOMACH: Gastritis ? Colonoscopy Findings: ? No polyps were detected, random biopsies were obtained from the colon. ? Moderate diverticulosis seen in the entire colon ? Moderate hemorrhoids on retroflexed exam. ? Plan: ? Patient has an appointment on 08/15/19 in the GI Clinic with Holland Bautista M.D. ? Repeat Colonoscopy interval based on path results - in 3 years due to past history of ? multiple adenomatous polyps. ?BIOPSIES SHOWED: ? A. Small bowel, biopsy: Duodenal mucosa with focal mildly increased ? intraepithelial lymphocytes and perserved villous architecture. See comment. ? B. Stomach, antrum, biopsy: Antral-type mucosa with mild chronic inactive ? inflammation; no Helicobacter organisms seen. ? C. Esophagus, proximal, biopsy: Squamous epithelium within normal limits; no ? inflammation seen; diagnostic features of eosinophilic esophagitis not seen. ? D. Colon, random, biopsy: Colonic mucosa within normal limits [facility] Medical History ELIZABET (acute kidney injury) Encephalopathy UTI (urinary tract infection) Bacteremia Frequent falls Acute exacerbation of chronic obstructive airways disease Urinary retention with incomplete bladder emptying Steatohepatitis IBS (irritable bowel syndrome) History of colon polyps Dysphagia, pharyngoesophageal phase GERD without esophagitis Hx of hereditary disease Diabetes mellitus Depression Fibromyalgia Surgical History Hx of abdominal surgery History of back surgery History of esophagogastroduodenoscopy (EGD) S/p total knee replacement, bilateral Hx of tubal ligation Hx of cholecystectomy Hx of endoscopy History of colonoscopy Family History Father History of heart attack Hx of type 1 diabetes mellitus Mother Alive and well Social History Household Members: Significant Other Housing: Apartment Do you presently have visiting nurse or other home services: Yes Alcohol intake: former Patient Tobacco Use Status: Former Tobacco user Tobacco use type: Cigarette Cigarette Packs Per Day: 0.5 Cigarettes Per Day: 10.0 Years Smoked: 25 yrs Second Hand Smoke Exposure: No Advance Directives Date on File: 10/20/20 service: No Current occupational status: unemployed Review of Systems Const All systems reviewed & are unremarkable except as noted in HPI and below Physical Exam Vital Signs: Last Vital Signs Pulse 104 H 04/05/24 07:18 BP 92/50 L 04/05/24 07:18 BMI result Body Mass Index 29.2 Const General: healthy appearing and no acute distress Nutritional Appearance: overweight Orientation/consciousness: patient oriented x3 Limitations: no limitations HEENT Head: Yes normal to inspection Ears: hearing grossly normal bilaterally Eyes Sclerae: sclerae normal Pupils: Equal, round and reactive pupils present Neck Neck: Yes normal visual inspection Chest Chest palpation & inspection: normal inspection of the chest Resp Effort & Inspection: normal respiratory effort Auscultation: clear to auscultation bilaterally Cardio Palpation: normal PMI Rate: regular rate Rhythm: regular rhythm Heart sounds: S1 normal heart sound present, S2 normal heart sound present and no murmurs GI Palpation (GI): Soft to palpation, nontender and No hepatosplenomegaly present Auscultation: normal bowel sounds Rectal Exam - Female: deferred Skin General skin exam: no rashes or lesions noted Neuro General: patient oriented x3, gait normal and moves all extremities Cranial nerves: Yes Equal, round and reactive pupils present Psych Appearance: grossly normal Mental Status: mental status grossly normal Assessment & Plan Assessment & Plan (1) GERD without esophagitis: Code(s): K21.9 - Gastro-esophageal reflux disease without esophagitis Category: Medical (2) Dysphagia, pharyngoesophageal phase: Comment: No stricture or ring noted on EGD - likely due to esophageal motility disorder Code(s): R13.14 - Dysphagia, pharyngoesophageal phase Category: Medical (3) History of colon polyps: Comment: 07/21 Colonoscopy showed moderate diverticulosis in the entire colon and hemorrhoids and no polyps. Repeat colonoscopy in 3 years - due July 2022 Code(s): Z86.010 - Personal history of colon polyps Category: Medical (4) IBS (irritable bowel syndrome): Comment: With diarrhea and constipation Code(s): K58.9 - Irritable bowel syndrome, unspecified Category: Medical (5) Cirrhosis: Code(s): K74.60 - Unspecified cirrhosis of liver Category: Medical (6) Nausea: Code(s): R11.0 - Nausea Category: Medical (7) Abdominal bloating: Code(s): R14.0 - Abdominal distension (gaseous) Category: Medical Plan 63 YF with fibromyalgia, DJD, cervical spondylosis, depression and DM followed in GI for GERD, dysphagia and a history of adenomatous colon polyps. Patient had a fatty liver on past ultrasound. 12/19 liver fibrosis score was 0.50 and liver fibrosis stage was F2. 07/21 EGD showed gastritis and changes suggestive of esophageal motility disorder Colonoscopy showed moderate diverticulosis in the entire colon and hemorrhoids and no polyps 09/2019 A gastric emptying study was normal. Patient was advised to continue omeprazole 20 mg twice daily and dicyclomine 20 mg twice daily. She was advised a trial of gluten free diet for symptoms of IBS with partial improvement in her symptoms. Patient was advised further evaluation with lab and stool tests and an abdominal CT scan to rule out IBD causing abdominal pain and diarrhea. 11/2021 CT scan showed early cirrhosis. Patient was started on linaclotide 145 mcg daily for constipation and advised to stop dicyclomine since it was not helpful REDUCING THE RISK OF LIVER PROGRESSION:??patient was advised to completely avoid use of alcohol and lose weight. Being obese puts her at risk of progressive steatotic liver injury and she needs to try to lose 10% of her body weight. She should restrict the calorie intake, most importantly intake of sugar /sucrose/fructose ?HCC SURVEILLANCE:?? the patient is at risk of developing hepatocellular carcinoma given the presence of cirrhosis and need 6 monthly imaging surveillance with either abdominal ultrasound (US) or multiphase cross-sectional imaging (CT or MRI).? Last Abd CT SCAN in 02/2024 had shown no focal liver lesions suspicious of HCC.? She will be scheduled for follow-up? liver ultrasound in 6 months for ongoing surveillance.? QUESTION OF LIVER TRANSPLANTATION:?? As pt has never had any hepatic decompensation, and continues to have good hepatic synthetic function with meld score of 9, liver transplantation does not need to be considered at this?time 10/18/22 EGD (dysphagia) and colonoscopy was performed and results as noted. Repeat colon advised in 3 yrs (due 10/2025) 02/16/24 Complains of nausea, lower abdominal pain and wt loss Constipation is good - taking Linzess. Intermittent diarrhea. Pt advised trail of simethicone and ondansetron 04/05/24 Pt advised to check a UA to rule out UTI causing nausea [place] of FODMAP diet for bloating FU in 3 months - scheduled 07/13/23 Orders: Orders UA CC w/rflx Micro + Cult Today R11.0 - Nausea Liver Panel Today K74.60 - Unspecified cirrhosis of liver Hepatitis A IgG Today K74.60 - Unspecified cirrhosis of liver Hepatitis C Antibody Today K74.60 - Unspecified cirrhosis of liver Transglutaminase IgA Today K74.60 - Unspecified cirrhosis of liver C Reactive Protein Today K74.60 - Unspecified cirrhosis of liver Hepatitis B Surface Antibody Today K74.60 - Unspecified cirrhosis of liver Hepatitis B Surface Antigen Today K74.60 - Unspecified cirrhosis of liver Mitochondrial Antibody Today K74.60 - Unspecified cirrhosis of liver Vitamin D 25-OH Total Today K74.60 - Unspecified cirrhosis of liver Zinc Today K74.60 - Unspecified cirrhosis of liver Folate Today K74.60 - Unspecified cirrhosis of liver Coding Level of Care Code Est Pt Level 3 (11996) Diagnoses GERD without esophagitis K21.9 Dysphagia, pharyngoesophageal phase R13.14 History of colon polyps Z86.010 IBS (irritable bowel syndrome) K58.9 Cirrhosis K74.60 Nausea R11.0 Abdominal bloating R14.0 Time Spent (min) 21
[2024-04-05 07:18] VITALS: BP 92/50; PULSE 104; BMI 29.2
== END 2024-04-05 08:06 | disposition home or self-care (01) ==
PROVIDERS: PCP Registered Nurse; Visit Provider Internal Medicine Gastroenterology
DX: K21.9 Gastro-esophageal reflux disease without esophagitis (principal); R13.14 Dysphagia, pharyngoesophageal phase; Z86.0100 Personal history of colon polyps, unspecified; K58.9 Irritable bowel syndrome, unspecified; K74.60 Unspecified cirrhosis of liver; R11.0 Nausea; R14.0 Abdominal distension (gaseous)
CPT/HCPCS: 99213

== ENCOUNTER → 2024-04-05 07:12 | Outpatient (BNVA) | payer OTHER, SELFPAY | PROVIDERS: PCP Registered Nurse; Visit Provider Internal Medicine Gastroenterology | DX: K21.9 Gastro-esophageal reflux disease without esophagitis (principal); K58.9 Irritable bowel syndrome, unspecified; K74.60 Unspecified cirrhosis of liver; R13.14 Dysphagia, pharyngoesophageal phase; R11.0 Nausea; R14.0 Abdominal distension (gaseous); Z86.0100 Personal history of colon polyps, unspecified | CPT/HCPCS: 99212 ==

== ENCOUNTER 2024-04-29 13:22 | Outpatient (REF) | payer OTHER, SELFPAY ==
--- NOTE | ~2024-04-29 | XR_ITS ---
EXAMINATION: XR CERVICAL SPINE CLINICAL INFORMATION: M43.12 - Spondylolisthesis, cervical region COMPARISON: MRI cervical spine 03/05/2024. TECHNIQUE: 6 views of the cervical spine, inclusive of flexion and extension views, were obtained. FINDINGS: There is straightening of cervical lordosis. There is ventral plate and screws at from C4 through C5 or C4-5 disc fusion. There is loss of C4-5, C5-6 and C6-7 disc heights. On flexion and extension views there is no subluxation seen at the fused level or any of the other disc levels. There is moderate ventral spondylosis at C6-7 disc level. No aggressive lytic or sclerotic process seen. The prevertebral and paravertebral soft tissues are normal. XR/XR cervical spine 4V IMPRESSION: Disc fusion C4-C5 disc level with ventral plate and screws. Degenerative disc changes C5-6, C6/7 and C7-T1 disc levels. No subluxation seen on flexion-extension views at the fused level or other cervical disc levels. Electronically signed by: Hemrinio Kellogg MD 04/30/2024 08:43 AM EST
--- OUTSIDE RECORDS SUMMARY | 2024-04-29 18:41 | XMS_ITS | Encounter Summary ---
Author Organization [employer] Address [address] [place] [address] 7 [place] [address] Care Team Providers Care As400 Consultant Name Role Phone Ashanti August [facility] Primary Care Provider [phone] Jeff Villarreal [facility] [employer] [facility] Unavailable Unavailable Encounter Details Date Type Department Care Team (Late st Contact Info) Description 07/22/2022 Orders Only [facility] MED & PEDS [address] [place], [place] [phone] Elizabeth Meadows LPN Social History Tobacco Use Types Packs/Day Years Used Date Smoking Tobacco: Former Cigarettes PHQ-2 Answer Date Recorded Patient Health Questionnaire-2 Score 4 04/19/2022 Comments Unknown Sex and Gender Information Value Date Recorded Sex Assigned at Female 01/31/2022 10:22 AM EDT Legal Sex Female 10:22 AM EDT Gender Identity Female 01/31/2022 10:22 AM EDT Sexual Orientation Choose not to disclose 2021 10:22 AM EDT documented as of this encounter Plan of Treatment Upcoming Encounters Date Type Department Care Team (Late st Contact Info) Description 05/16/2024 9:30 AM EST Procedure Visit [facility]S [address] [place], [place] [phone] Lexi Thomson CNM [address] [place], [place] [phone] documented as of this encounter Visit Diagnoses Not on filedocumented in this encounter Additional Health Concerns Assessment Noted Time PHQ-9 Depression Total Score: 13 023 2:44 PM EST documented as of this encounter Care Teams As400 Consultant Relationship Specialty Start Date End Date Ashanti August FNP [address] [place] [address] PCP - General Family Medicine 11/24/21 Jeff Villarreal FNP [address] [place] [address] Nurse Practitioner Family Medicine 02/20/23 documented as of this encounter
--- OUTSIDE RECORDS SUMMARY | 2024-04-29 18:41 | XMS_ITS | Encounter Summary ---
Author Organization [employer] Address [address] [place] [address] [address] [place] [address] Care Team Providers Care House Carpenter Name Role Phone Ashanti August [facility] Primary Care Provider Jeff Villarreal ONLINE COMMUNICATIONS SPECIALIST Unavailable Unavailable Encounter Details Date Type Department Care Team (Latest Contact Info) Description 04/24/2024 Travel Social History Tobacco Use Types Packs/Day Years Used Date Smoking Tobacco: Former Cigarettes Passive Smoke Exposure: Past Smokeless Tobacco: Never Alcohol Use Standard Drinks/Week Comments Never 0 (1 standard drink = 0.6 oz pur e alcohol) Alcohol Answer Date Recorded Frequency of Alcohol Consumption Not on file 12/20/2023 Average Number of Drinks Not on file 024 Frequency of Binge Drinking Not on file 12/02 Score 0 12/20/2023 Depression Answer Date Recorded Patient Health Questionnaire-9 Score 0 04/24/2024 Patient Health Questionnaire-9 Score 0 04/24/2024 Last PHQ-9: Questionnaire Data Not on file 0 04/24/2024 Housing Stability Answer Date Recorded What is your housing situation today? I have janak palafox 01/19/[address] you li ve. Do you have problems with any of the following? None of the above 01/19/2023 Food Insecurity Answer Date Recorded Within the past 12 months, y ou worried that your food would run out before you got money to buy more: Never True 01/19/2023 Within the past 12 months,th e food you bought just didn't last and you didn't have enough money to get more: Never True Transportation Answer Date Recorded In the past 12 months, has l ack of transportation kept you from medical appts, meetings, work or from getting things needed for daily living? No 01/19/2023 Utilities Answer Date Recorded In the past 12 months, has t he electric, gas, oil or water company threatened to shut off services in your home? No 01/19/2023 Depression Answer Date Recorded Patient Health Questionnaire-2 Score 0 04/24/2024 Internet Access Answer Date Recorded Internet Access Q1 Yes 04/12/2024 Internet Access Q2 Not on file 04/12/2024 Comments Unknown Sex and Gender Information Value [...] Description 05/16/2024 9:30 AM EST Procedure Visit [facility] & [facility]EDS [address] [place] [address] Lexi Thomson CNM [address] [place] [address] documented as of this encounter Visit Diagnoses Not on filedocumented in this encounter Additional Health Concerns Assessment Noted Time PHQ-9 Depression Total Score: 0 04/24/19 25 10:11 AM EST documented as of this encounter Care Teams House Carpenter Relationship Specialty Start Date End Date Ashanti August FNP [address] [place] [id number] PCP - General Family Medicine 11/24/21 Jeff Villarreal FNP [address] [place] [address] Nurse Practitioner Family Medicine 02/20/23 documented as of this encounter
--- OUTSIDE RECORDS SUMMARY | 2024-04-29 18:41 | XMS_ITS | Encounter Summary ---
Author Organization [employer] Address [address] [facility] 7t [place] [address] Care Team Providers Care Document Controller Name Role Phone Ashanti August [facility] Primary Care Provider [phone] Jeff Villarreal [facility] Unavailable Unavailable Encounter Details Date Type Department Care Team (Late st Contact Info) Description 02/21/2023 Orders Only [facility] MED & PEDS [address] [place] [address] Isabel Escalante LPN Social History Tobacco Use Types Packs/Day Years Used Date Smoking Tobacco: Former Cigarettes Passive Smoke Exposure: Past Smokeless Tobacco: Never Alcohol Use Standard Drinks/Week Comments Never 0 (1 standard drink = 0.6 oz pur e alcohol) Depression Answer Date Recorded Patient Health Questionnaire-9 Score 14 01/10/2023 Housing Stability Answer Date Recorded What is [...] Answer Date Recorded Patient Health Questionnaire-2 Score 5 01/10/2023 Comments Unknown Sex and Gender Information Value [...] Description 05/16/2024 9:30 AM EST Procedure Visit [facility] & PEDS [address] [place] [address] Lexi Thomson CNM [address] [place] [address] documented as of this encounter Visit Diagnoses Not on filedocumented in this encounter Additional Health Concerns Assessment Noted Time PHQ-9 Depression Total Score: 14 023 9:52 AM EDT documented as of this encounter Care Teams Document Controller Relationship Specialty Start Date End Date Ashanti August FNP [address] [place] [id number] PCP - General Family Medicine 11/24/21 Jeff Villarreal FNP [address] [place] [address] Nurse Practitioner Family Medicine 02/20/23 documented as of this encounter
--- OUTSIDE RECORDS SUMMARY | 2024-04-29 18:41 | XMS_ITS | Encounter Summary ---
Author Organization [employer] Address [address] [place] [address] 7 [place] [address] Care Team Providers Care Pathology Supervisor Name Role Phone [facility] Primary Care Provider [phone] Jeff Villarreal [facility] Unavailable Unavailable Reason for Visit * Reason Onset Date Comments Nurse Triage 02/07/2024 Encounter Details Date Type Department Care Team (Late st Contact Info) Description 02/07/2024 Telephone [facility] MEDICINE [address] [place] [address] [facility] [address] [place] [address] Nurse Triage Social History Tobacco Use Types Packs/Day Years [...] Date Recorded Patient Health Questionnaire-9 Score 0 12/20/2023 Patient Health Questionnaire-9 Score 0 12/20/2023 Last PHQ-9: Questionnaire Data Not on file 0 12/20/2023 Housing Stability Answer Date Recorded What is [...] Date Recorded Patient Health Questionnaire-2 Score 0 12/20/2023 Comments Unknown Sex and Gender Information Value Date Recorded Sex Assigned at Female 01/31/2022 10:22 AM EDT Legal Sex Female 10:22 AM EDT Gender Identity Female 01/31/2022 10:22 AM EDT Sexual Orientation Choose not to disclose 2021 10:22 AM EDT documented as of this encounter Miscellaneous Notes * Telephone Encounter - Pat Philippe RN - 02/07/2024 11:42 AM EST Triage call Pt reports urinary pain, burning and frequency for the last 3 days. Pt also reports a bit of confusion at times. Pt is advised to come to WIC at the [facility] today for provider to check urine for possible UTI. Pt agrees with this disposition and will come at this time. Insurance is verified as active. Protocol Used: Urination Pain - Female (Adult) Protocol-Based Disposition: See in Office or Video Visit Today Video visit not offered Positive Triage Question: * All other females with painful urination, or patient wants to be seen * All higher-acuity triage questions were negative Care Advice Discussed: * Reassurance and Education - Possible Urine Infection * Drink Extra Fluids * Reasons To Call Back - Fever or back pain occurs - You become worse * Telephone Encounter - Mindy Kim - 02/07/2024 11:16 AM EST Symptoms: Urination Pain, Confusion Outcome: Schedule an urgent appointment (within 1 hour) or talk to a nurse or provider soon Reason: Started within the past 3 days The caller accepted this outcome. Contact pt at [phone] documented in this encounter Plan of Treatment Upcoming Encounters Date Type Department Care Team ([facility] st Contact Info) Description 05/16/2024 9:30 AM EST Procedure Visit [facility] MED & PEDS [address] [place] [address] Lexi Thomson CNM [address] [place] [address] documented as of this encounter Visit Diagnoses Not on filedocumented in this encounter Additional Health Concerns Assessment Noted Time PHQ-9 Depression Total Score: 0 12/20/19 10:36 AM EDT documented as of this encounter Care Teams Pathology Supervisor Relationship Specialty Start Date End Date Ashanti August FNP [address] [place] [address] PCP - General Family Medicine 11/24/21 Jeff Villarreal FNP [address] [place] [address] Nurse Practitioner Family Medicine 02/20/23 documented as of this encounter
--- OUTSIDE RECORDS SUMMARY | 2024-04-29 18:41 | XMS_ITS | Encounter Summary ---
Author Organization [employer] Address [address] [place] [address] [address] [place] [address] Care Team Providers Care Janitor And Cleaner Name Role Phone [facility] Primary Care Provider [phone] Jeff Villarreal [facility] Unavailable Unavailable Reason for Visit * Reason Comments Med Refill Encounter Details Date Type Department Care Team ([facility] st Contact Info) Description 11/01/2023 Refill [facility] MEDICINE [address] [place] [address] [facility] [address] [place], [place] [phone] Chronic obstructive pulmonary disease, unspecified COPD type (CMS/HCC) Social History Tobacco Use Types Packs/Day Years Used Date Smoking Tobacco: Former Cigarettes Passive Smoke Exposure: Past Smokeless Tobacco: Never Alcohol Use Standard Drinks/Week Comments Never 0 (1 standard drink = 0.6 oz pur e alcohol) Depression Answer Date Recorded Patient Health Questionnaire-9 Score 15 10/13/2023 Patient Health Questionnaire-9 Score 15 10/13/2023 Last PHQ-9: Questionnaire Data Not on file 0 10/13/2023 Housing Stability Answer Date Recorded What is [...] Answer Date Recorded Patient Health Questionnaire-2 Score 6 10/13/2023 Comments Unknown Sex and Gender Information Value [...] Description 05/16/2024 9:30 AM EST Procedure Visit [facility] MED & PEDS [address] [place] [address] Lexi Thomson CNM [address] [place] [address] documented as of this encounter Visit Diagnoses Diagnosis Chronic obstructive pulmonary disease, unspecified COPD type (CMS/HCC) documented in this encounter Additional Health Concerns Assessment Noted Time PHQ-9 Depression Total Score: 15 024 10:15 AM EDT documented as of this encounter Care Teams Janitor And Cleaner Relationship Specialty Start Date End Date Ashanti August FNP [address] [place] [address] PCP - General Family Medicine 11/24/21 Jeff Villarreal FNP [address] [place] [phone] Nurse Practitioner Family Medicine 02/20/23 documented as of this encounter
--- OUTSIDE RECORDS SUMMARY | 2024-04-29 18:41 | XMS_ITS | Encounter Summary ---
Author Organization [employer] Address [address] [place] [address] 7 [place] [address] Care Team Providers Care Freight Receiver Name Role Phone [facility] Primary Care Provider [phone] Jeff Villarreal [facility] Unavailable Unavailable Reason for Visit * Reason Onset Date Comments Med Refill 04/04/2023 Encounter Details Date Type Department Care Team (Late st Contact Info) Description 04/04/2023 Telephone [facility] MEDICINE [address] [place], [place] [phone] [facility] [address] [place] [address] Med Refill Social History Tobacco Use Types Packs/Day Years Used Date Smoking Tobacco: Former Cigarettes Passive Smoke Exposure: Past Smokeless Tobacco: Never Alcohol Use Standard Drinks/Week Comments Never 0 (1 standard drink = 0.6 oz pur e alcohol) Depression Answer Date Recorded Patient Health Questionnaire-9 Score 0 03/06/2023 Patient Health Questionnaire-9 Score 0 03/06/2023 Last PHQ-9: Questionnaire Data Not on file 1 05/07/2022 Housing Stability Answer Date Recorded What is [...] Date Recorded Patient Health Questionnaire-2 Score 0 03/06/2023 Comments Unknown Sex and Gender Information Value Date Recorded Sex Assigned at Female 01/31/2022 10:22 AM EDT Legal Sex Female 10:22 AM EDT Gender Identity Female 01/31/2022 10:22 AM EDT Sexual Orientation Choose not to disclose 2021 10:22 AM EDT documented as of this encounter Miscellaneous Notes * Telephone Encounter - Elizabeth Meadows LPN - 04/04/2023 10:33 AM EST Medication pended to PCP. * Telephone Encounter - Dev Mancilla - 04/04/2023 10:21 AM EST TC from pt requesting medication refill. Medications needing refill : tiZANidine (Zanaflex) 2 MG tablet To be sent to: [facility] - [place], [place] - [address] [facility] documented in this encounter Plan of Treatment Upcoming Encounters Date Type Department Care Team (Late st Contact Info) Description 05/16/2024 9:30 AM EST Procedure Visit [facility] MED & PEDS [address] [place], [place] [phone] Lexi Thomson, LISSETTE [address] [place] [address] documented as of this encounter Visit Diagnoses Not on filedocumented in this encounter Additional Health Concerns Assessment Noted Time PHQ-9 Depression Total Score: 0 03/06/20 23 12:04 PM EST documented as of this encounter Care Teams Freight Receiver Relationship Specialty Start Date End Date Ashanti August FNP [address] [place] [address] PCP - General Family Medicine 11/24/21 Jeff Villarreal FNP [address] [place] [address] Nurse Practitioner Family Medicine 02/20/23 documented as of this encounter
--- OUTSIDE RECORDS SUMMARY | 2024-04-29 18:41 | XMS_ITS | Encounter Summary ---
Author Organization [employer] Address [address] [place] [address] 7 [place] [address] Care Team Providers Care Summer Child Caregiver Name Role Phone [facility] Primary Care Provider [phone] Jeff Villarreal [facility] Unavailable Unavailable Reason for Visit * Reason Onset Date Comments chart prep 04/23/2024 Encounter Details Date Type Department Care Team (Late st Contact Info) Description 04/23/2024 Telephone [facility] MEDICINE [address] [place] [address] [facility] [address] [place] [address] chart prep Social History Tobacco Use Types Packs/Day Years [...] encounter Miscellaneous Notes * Telephone Encounter - Krystal Dockery [place] - 04/23/2024 2:27 PM EST Chart Prep Labs: done Images: done Vaccines due: Referrals: last neurology visit 07/24/2023 Screenings: colonoscopy completed need pcp to advise Overdue care gaps: A1C, Glucose, PHQ-9, Oral Health documented in this encounter Plan of Treatment Upcoming Encounters Date Type Department Care Team ([facility] st Contact Info) Description 05/16/2024 9:30 AM EST Procedure Visit [facility] CH[facility] MED & PEDS [address] [place] [address] Lexi Thomson, LISSETTE [address] [place] [address] documented as of this encounter Visit Diagnoses Not on filedocumented in this encounter Additional Health Concerns Assessment Noted Time PHQ-9 Depression Total Score: 0 12/20/19 24 10:36 AM EDT documented as of this encounter Care Teams Summer Child Caregiver Relationship Specialty Start Date End Date Ashanti August FNP [address] [place] [address] PCP - General Family Medicine 11/24/21 Jeff Villarreal FNP [address] [place] [address] Nurse Practitioner Family Medicine 02/20/23 documented as of this encounter
--- OUTSIDE RECORDS SUMMARY | 2024-04-29 18:41 | XMS_ITS | Encounter Summary ---
Author Organization [employer] Address [address] [place] [address] 7 [place] [address] Care Team Providers Care Traffic Analyst Name Role Phone Ashanti August SPECIAL TECHNICAL OPERATIONS OFFICER Primary Care Provider [phone] Jeff Villarreal [employer] TECHNICAL OPERATIONS OFFICER Unavailable Unavailable Encounter Details Date Type Department Care Team (Late Contact Info) Description 11/07/2022 Orders Only [facility] MED & PEDS [address] [place] [address] Elizabeth Meadows LPN Social History Tobacco Use Types Packs/Day Years Used Date Smoking Tobacco: Former Cigarettes Passive Smoke Exposure: Past Smokeless Tobacco: Never Alcohol Use Standard Drinks/Week Comments Never 0 (1 standard drink = 0.6 oz pur e alcohol) PHQ-2 Answer Date Recorded Patient Health Questionnaire-2 Score 6 10/25/2022 Comments Unknown Sex and Gender Information Value Date Recorded Sex Assigned at Female 01/31/2022 10:22 AM EDT Legal Sex Female 10:22 AM EDT Gender Identity Female 01/31/2022 10:22 AM EDT Sexual Orientation Choose not to disclose 2021 10:22 AM EDT documented as of this encounter Plan of Treatment Upcoming Encounters Date Type Department Care Team (Late Contact Info) Description 05/16/2024 9:30 AM EST Procedure Visit [facility] MED & PEDS [address] [place] [address] Lexi Thomson, LISSETTE [address] [place], [place] [phone] documented as of this encounter Visit Diagnoses Not on filedocumented in this encounter Additional Health Concerns Assessment Noted Time PHQ-9 Depression Total Score: 24 023 10:26 AM EDT documented as of this encounter Care Teams Traffic Analyst Relationship Specialty Start Date End Date Ashanti August FNP [address] [place] [address] PCP - General Family Medicine 11/24/21 Jeff Villarreal FNP [address] [place] [address] Nurse Practitioner Family Medicine 02/20/23 documented as of this encounter
--- OUTSIDE RECORDS SUMMARY | 2024-04-29 18:41 | XMS_ITS | Encounter Summary ---
Author Organization [employer] Address [address] [place] [address] 7 [place] [address] Care Team Providers Care Forest Fire Lookout Name Role Phone [facility] Primary Care Provider [phone] Jeff Villarreal [facility] Unavailable Unavailable Reason for Visit * Reason Comments Med Refill Encounter Details Date Type Department Care Team ([facility] st Contact Info) Description 03/29/2024 Refill [facility] MEDICINE [address] [place] [address] [facility] [address] [place], [place] [phone] Primary hypertension Social History Tobacco Use Types Packs/Day Years [...] [facility] [address] [place] [address] Lexi Thomson CNM [address] [place] [address] documented as of this encounter Visit Diagnoses Diagnosis Primary hypertension Unspecified essential hypertension documented in this encounter Additional Health Concerns Assessment Noted Time PHQ-9 Depression Total Score: 0 12/20/19 24 10:36 AM EDT documented as of this encounter Care Teams Forest Fire Lookout Relationship Specialty Start Date End Date Ashanti August FNP [address] [place] [address] PCP - General Family Medicine 11/24/21 Jeff Villarreal FNP [address] [place] [address] Nurse Practitioner Family Medicine 02/20/23 documented as of this encounter
--- OUTSIDE RECORDS SUMMARY | 2024-04-29 18:41 | XMS_ITS | Encounter Summary ---
Author Organization [employer] Address [address] [place] [address] 7 [place] [address] Care Team Providers Care Health Care Administrator Name Role Phone [facility] Primary Care Provider [phone] Jeff Villarreal [facility] Unavailable Unavailable Reason for Visit * Reason Comments Med Refill Encounter Details Date Type Department Care Team ([facility] st Contact Info) Description 03/28/2024 Refill [facility] MEDICINE [address] [place] [address] [facility] 230 [place], [place] [phone] Primary hypertension Social History Tobacco Use Types [...] [facility] MED & PEDS [address] [place] [address] Lexi Thomson CNM [address] [place] [address] documented as of this encounter Visit Diagnoses Diagnosis Primary hypertension Unspecified essential hypertension documented in this encounter Additional Health Concerns Assessment Noted Time PHQ-9 Depression Total Score: 0 12/20/19 24 10:36 AM EDT documented as of this encounter Care Teams Health Care Administrator Relationship Specialty Start Date End Date Ashanti August FNP [address] [place] [address] PCP - General Family Medicine 11/24/21 Jeff Villarreal FNP [address] [place] [address] Nurse Practitioner Family Medicine 02/20/23 documented as of this encounter
--- OUTSIDE RECORDS SUMMARY | 2024-04-29 18:41 | XMS_ITS | Clinical Summary ---
Author Organization [facility] Address [address] [address] Phone Care Team Providers Care Credit Investigator Name Role Phone Unavailable Primary Care Provider [...] ?? Early REAL cirrhosis ?? Followed by [facility] Aortic valve sclerosis 10/25/2022 Anemia 10/25/2022 [...] results. ?? S/p multiple spinal surgeries through [facility] 09/2021 for cyst removal ?? Followed by [facility] pain mngmt Hyperkalemia 10/25/2022 03/07/2023 Obstructive sleep apnea syndrome 10/25/2022 03/07/2023 Multiple nodules of lung 10/25/2022 023 Sacroiliac disorder 10/25/2022 03/07/2023 Recurrent falls 10/25/2022 03/07/2023 Poor stream of urine 10/25/2022 03/07/2023 Overview (03/07/2023): ?? Followed by [facility] ?? [facility] Finding of hand region 09/20/2022 Overview (03/07/2023): Last Assessment & Plan: Due to increased albuterol use, trest of neurological exam is normal. No evidence of other EPS. Vascular insufficiency of intestine 11/24/2021 Ischemic colitis 11/24/2021 Overview (02/21/2022): Added automatically from request for surgery [id number] Congestive heart failure 02/27/2021 023 Overview (03/07/2023): [...] ?? Trelegy ellipta ?? Albuterol PRN ?? [facility] Fibromyalgia 12/08/2020 03/07/2023 Overview (03/07/2023): ?? [...] Visit [facility] [address] [place] [address] Nguyễn Baird [...] Visit [facility] [address] [place] [address] Nguyễn Baird MD [address] [facility] [address] [place] [phone] Health Maintenance Due Date Last Done Comments [...] mmol/L PVNMA 12/17/2019 us Rtama Conversion LAB [id number] LICITED RESULTS Final Result PVNMA from Last 3 Months or Most Recently Relevant to Health Maintenance Insurance [facility] ([id number]) * Guarantor: Sharri Salmeron Account Type Relation to Patient Date of Phone Billing Address Personal/Family Self 1960 [address] [place] [address] [facility] ([id number])
--- OUTSIDE RECORDS SUMMARY | 2024-04-29 18:41 | XMS_ITS | Encounter Summary ---
Author Organization [employer] Address [address] [place] [address] 7 [place] [address] Care Team Providers Care Rn Neurology Name Role Phone [facility] Primary Care Provider [phone] Jeff Villarreal [facility] Unavailable Unavailable Reason for Visit * Reason Comments Follow-up Encounter Details Date Type Department Care Team (Late st Contact Info) Description 04/24/2024 10:00 AM EST Office Visit [facility] MEDICINE [address] [place], [place] [phone] [facility] [address] [place], [place] [phone] Type 2 diabetes mellitus with stage 4 chronic kidney disease, without long-term current use of insulin ([facility]) (Primary Dx); Overweight; Cervical radiculopathy; Dietary counseling; Exercise counseling Social History Tobacco Use Types Packs/Day Years Used Date Smoking Tobacco: Former Cigarettes Passive Smoke Exposure: Past Smokeless Tobacco: Never Tobacco Cessation:Counseling Given: Not Answered Alcohol Use Standard Drinks/Week Comments Never 0 [...] AM EDT documented as of this encounter Last Filed Vital Signs Vital Sign Reading Time Taken Comments Blood Pressure 110/62 04/24/2024 10:39 AM EST Pulse 100 04/24/2024 9:54 AM EST Temperature 36.3 ??C (97.4 ??F) 04/24/2024 9:54 AM ES T Respiratory Rate 20 04/24/2024 9:54 AM EST Oxygen Saturation 98% 04/24/2024 9:54 AM EST Inhaled Oxygen Concentration - - Weight 74.8 kg (164 lb 12.8 oz) 04/24/2024 9:54 AM EST Height 160 cm (5' 3 ) 04/24/2024 9:54 AM EST Body Mass Index 29.19 04/24/2024 9:54 AM EST documented in this encounter Progress Notes * [facility] Er, GROOVER OPERATOR - 04/24/2024 10:00 AM EST SUBJECTIVE: Sharri Salmeron is a 63 y.o. year old female with T2DM, hx of CHF, COPD, CKD, compensated REAL cirrhosis, and hx of ischemic bowel disease who presents for DM follow up . Denies recent illness, injury, or hospitalization. Interim Updates: T2DM- well controlled. Still with occasional episodes of BS <100 with symptoms. Carries glucose tablets with her. Cervical MRI from 03/05/2024 with the following impression. Neurosurgery [facility] consult was placed. Today reports symptoms worsening. Persistent numbness tingling pain radiating down right arm. Using lidocaine patches and Tylenol with no improvement. Did not receive neurosurgery referral info. IMPRESSION: 1. Sequelae of anterior spinal fusion at C4-5. 2. Multilevel cervical spondylosis as described above with mild to moderate spinal canal stenosis at C7-T1 and minimal right eccentric spinal canal stenosis at C6-7. 3. Multilevel neural foraminal narrowing which is severe on the right at C3-4, on the right at C6-7, and on the left at C7-T1. Cirrhosis- GI follow up 04/05/24. EGD showed gastritis and changes suggestive of esophageal motility disorder. Colonoscopy showed moderate diverticulosis in the entire colon and hemorrhoids and no polyps . 09/2019 A gastric emptying study was normal. Repeat EGD and colonoscopy 10/2025 Social History Social History Narrative Tobacco Use: None currently, former ETOH: None Marijuana Use: None Other substance use: None Current living environment: Lives with . Has TIMBER MANAGEMENT ASSISTANT and VNA services Children: Yes Patient Active Problem List Diagnosis Depression Type 2 diabetes mellitus with diabetic chronic kidney disease (CMS/HCC) Tremor of both hands Anemia Aortic valve sclerosis ELIZABET (acute kidney injury) (CMS/HCC) Arthritis Cirrhosis (CMS/HCC) Congestive heart failure (CMS/HCC) Dysphagia, pharyngoesophageal phase Fibromyalgia Frequent falls Hyperkalemia Hyperlipidemia IBS (irritable bowel syndrome) Lumbar radiculopathy NIURKA (obstructive sleep apnea) Pulmonary nodules Supplemental oxygen dependent Steatohepatitis Stage 3 chronic kidney disease (CMS/HCC) Weak urinary stream Hx of ischemic bowel disease Memory impairment Healthcare maintenance Primary hypertension Major depressive disorder, recurrent, severe with psychotic features (CMS/HCC) Witnessed seizure-like activity (CMS/HCC) Chronic obstructive pulmonary disease ([facility]) Past Surgical History: Procedure Laterality Date CERVICAL FUSION SPINE SURGERY lumbar decompression TOTAL KNEE ARTHROPLASTY No family history on file. Review of Systems Constitutional: Negative for fatigue, fever and unexpected weight change. Eyes: Negative for visual disturbance. Respiratory: Negative for apnea, chest tightness and shortness of breath. Cardiovascular: Negative for chest pain, palpitations and leg swelling. Neurological: Negative for dizziness, light-headedness and headaches. OBJECTIVE: Vitals: 04/24/24 0954 04/24/24 1039 BP: (!) 145/83 110/62 BP Location: Right arm Patient Position: Sitting BP Cuff Size: Adult Pulse: 100 Resp: 20 Temp: 97.4 ??F (36.3 ??C) TempSrc: Temporal SpO2: 98% Weight: 164 lb 12.8 oz (74.8 kg) Height: 5' 3 (1.6 m) Physical Exam Constitutional: General: She is not in acute distress. Appearance: Normal appearance. HENT: Head: Normocephalic and atraumatic. Right Ear: External ear normal. Left Ear: External ear normal. Nose: Nose normal. Eyes: Conjunctiva/sclera: Conjunctivae normal. Cardiovascular: Rate and Rhythm: Normal rate and regular rhythm. Heart sounds: Normal heart sounds. Pulmonary: Effort: Pulmonary effort is normal. Breath sounds: Normal breath sounds. Skin: General: Skin is warm and dry. Neurological: General: No focal deficit present. Mental Status: She is alert and oriented to person, place, and time. Psychiatric: Mood and Affect: Mood normal. Behavior: Behavior normal. ASSESSMENT/PLAN 1. Type 2 diabetes mellitus with stage 4 chronic kidney disease, without long- term current use of insulin ([facility]) (Primary) Lab Results Component Value Date HGBA1C 6.8 (A) 04/24/2024 - Continue trulicity 0.75 - CGM for hypoglycemia denied by insurance. Pt denies glucose readings <90. Will continue to monitor. Use glucose tabs as directed Jardiance discontinued d/t recurrent UTI Foot Exam: 08/2023 Risk 0 Eye Exam: 05/2023 Statin: Yes ASA: No CAROL/ARB: Yes Encouraged regular aerobic exercise for improved glycemic control Encouraged daily foot checks Encouraged lean protein snacks and to avoid foods high in sugar and simple carbohydrates - POCT HGB A1C - POCT Glucose 2. Overweight - Encouraged regular aerobic exercise within initial goal of 30 minute walk 3x/week - Encouraged balanced diet with a variety of fruits, vegetables, and lean meats. 3. Cervical radiculopathy -Patient provided with contact contact information for neurology [facility]. - Will trial gabapentin 3 times daily for radicular pain. Okay to titrate evening dose up to 300 mgif needed for symptom relief. [facility] will contact [facility] if she is unable to schedule an appointment with neurosurgery. Reviewed administration, risks, side effects - gabapentin (Neurontin) 100 MG capsule; Take 1 capsule three times daily for chronic. May self increase evening dose up to 3 capsules (300mg) if needed for symptom relief. Dispense: 90 capsule; Refill: 11 . 4. Dietary counseling 5. Exercise counseling Follow Up: 6 month DM, sooner PRN Current Outpatient Medications on File Prior to Visit Medication Sig Dispense Refill albuterol 108 (90 Base) MCG/ACT inhaler Inhale 2 puffs every 6 (six) hours if needed for wheezing. 18 g 1 Alcohol Swabs (Alcohol Prep) 70 % pads USE DIRECTED TWICE DAILY atorvastatin (Lipitor) 80 MG tablet TAKE 1 TABLET BY MOUTH AT BEDTIME 90 tablet 0 buPROPion XL (Wellbutrin XL) 150 MG 24 hr tablet Take 1 tablet (150 mg) by mouth in the morning. Donot crush, chew, or split. 90 tablet 3 Continuous Glucose Check Services Clerk (FreeStyle Zeke 2 [place]) device Use as directed 1 each 0 Continuous Glucose Sensor (FreeStyle Zeke 2 Sensor) misc Use as directed 2 each 3 D3 Super Strength 50 MCG (2000 UT) capsule TAKE 2 CAPSULES BY MOUTH ONCE DAILY IN THE MORNING 180 capsule 3 dulaglutide (Trulicity) 0.75 MG/0.5ML solution pen-injector Inject 0.75 mg under the skin 1 (one) time per week. 4 each 11 DULoxetine (Cymbalta) [address] capsule Take 1 capsule (60 mg) by mouth Once per day. 90 capsule 3 FeroSul 325 (65 Fe) MG tablet TAKE 1 TABLET BY MOUTH EVERY MORNING 90 tablet 0 glucose 4 g chewable tablet Chew 4 tablets (16 g) if needed for low blood sugar. 50 tablet 12 glucose blood (FREESTYLE LITE) test strip USE TO TEST BLOOD SUGAR TWICE DAILY 100 each 11 hydrOXYzine pamoate (Vistaril) 50 MG capsule TAKE 1 CAPSULE BY MOUTH EVERY 8 HOURS NEEDED FOR ANXIETY 90 capsule 5 lidocaine (Lidoderm) 5 % patch Apply 1 patch topically Once per day. Remove & discard patch within 12 hours or as directed by . 30 patch 3 Linzess 145 MCG capsule Take 1 capsule by mouth once daily omeprazole (PriLOSEC) [address] capsule TAKE 1 CAPSULE BY MOUTH TWICE DAILY IN THE MORNING AND AT BEDTIME pregabalin (Lyrica) 75 MG capsule TAKE 1 CAPSULE BY MOUTH THREE TIMES DAILY IN THE MORNING, EVENING, AND BEDTIME QUEtiapine (SEROquel) 400 MG tablet TAKE 1/2 TABLET BY MOUTH EVERY MORNING and TAKE 1 AND 1/2 TABLETS BY MOUTH AT BEDTIME 60 tablet 3 Senna-Time 8.6 MG tablet TAKE 2 TABLETS ORALLY BEDTIME NEEDED FOR CONSTIPATION FOR 30 DAYS Spacer/Aero-Holding Chambers (Pro Comfort Spacer Adult) misc Use qid prn sob/cough with inhaler 1 each 0 traZODone (Desyrel) 100 MG tablet Take 2 tablets (200 mg) by mouth at bedtime. 180 tablet 3 Trelegy Ellipta 200-62.5-25 MCG/ACT aerosol powder INHALE 1 PUFF BY MOUTH EVERY DAY AT THE SAME TIME 60 each 3 TRUEplus Lancets 33G misc USE TO TEST BLOOD SUGAR TWICE DAILY 100 each 11 Vitamin E 45 MG (100 UNIT) capsule Take 1 capsule by mouth Once per day. TAKE 1 CAPSULE BY MOUTH EVERY MORNING 90 capsule 0 No current facility-administered medications on file prior to visit. Greenlandic Translation: Patient is bilingual and declines translation services documented in this encounter Plan of Treatment Upcoming Encounters Date Type Department Care Team (Late st Contact Info) Description 05/16/2024 9:30 AM EST Procedure Visit [facility] MED & PEDS [address] [place] [address] Lexi Thomson CNM [address] [facility] [place] [address] documented as of this encounter Procedures Procedure Name Priority Date/Time Associated Diagnosis Comments POCT GLYCATED HEMOGLOBIN, TOTAL Routine 04/24/2024 10:15 AM EST Type 2 diabetes mellitus with stage 4 chronic kidney disease, without long-term current use of insulin ([facility]) POCT GLUCOSE Routine 04/24/2024 10:15 AM EST Type 2 diabetes mellitus with stage 4 chronic kidney disease, without long-term current use of insulin ([facility]) documented in this encounter Results * POCT Glucose (04/24/2024 10:15 AM EST) Glucose Blood, POC 146 60 - 200 mg/dL Blood Capillary blood specimen / Unknown 04/24/2024 10:15 AM EST [facility] POINT OF CARE TEST ENTER/EDIT ORDERABLES Final Result * (ABNORMAL) POCT HGB A1C (04/24/2024 10:15 AM EST) Hemoglobin A1C 6.8(A) 4.0 - 6.0 % QC Media Lot # [id number] Lot# Expiration Date Blood 04/24/2024 10:1 5 AM EST [facility] POINT OF CARE TEST ENTER/EDIT ORDERABLES Final Result documented in this encounter Visit Diagnoses Diagnosis Type 2 diabetes mellitus with stage 4 chronic kidney disease, without long-term current use of insulin ([facility])- Primary Overweight Cervical radiculopathy Brachial neuritis or radiculitis nos Dietary counseling Dietary surveillance and counseling Exercise counseling documented in this encounter Additional Health Concerns Assessment Noted Time PHQ-9 Depression Total Score: 0 04/24/19 25 10:11 AM EST documented as of this encounter Care Teams Rn Neurology Relationship Specialty Start Date End Date Ashanti Auguts FNP [address] [place] [address] PCP - General Family Medicine 11/24/21 Jeff Villarreal FNP [address] [place] [address] Nurse Practitioner Family Medicine 02/20/23 documented as of this encounter
--- OUTSIDE RECORDS SUMMARY | 2024-04-29 18:41 | XMS_ITS | Encounter Summary ---
Author Organization [employer] Address [address] [place] [address] 7 [place] [address] Care Team Providers Care City Treasurer Name Role Phone [facility] Primary Care Provider Jeff Villarreal [facility] Unavailable Unavailable Reason for Visit * Reason Onset Date Comments Hospital Follow-up 07/28/2023 Encounter Details Date Type Department Care Team (Late st Contact Info) Description 07/28/2023 Telephone [facility] MEDICINE [address] [place], [place] [phone] [facility] [address] [place], [place] [phone] Hospital Follow-up Social History Tobacco Use Types Packs/Day Years Used Date Smoking Tobacco: Former Cigarettes Passive Smoke Exposure: Past Smokeless Tobacco: Never Alcohol Use Standard Drinks/Week Comments Never 0 (1 standard drink = 0.6 oz pur e alcohol) Depression Answer Date Recorded Patient Health Questionnaire-9 Score 9 07/05/2023 Patient Health Questionnaire-9 Score 9 07/05/2023 Last PHQ-9: Questionnaire Data Not on file 0 07/05/2023 Housing Stability Answer Date Recorded What is [...] Answer Date Recorded Patient Health Questionnaire-2 Score 2 07/05/2023 Comments Unknown Sex and Gender Information Value Date Recorded Sex Assigned at Female 01/31/2022 10:22 AM EDT Legal Sex Female 10:22 AM EDT Gender Identity Female 01/31/2022 10:22 AM EDT Sexual Orientation Choose not to disclose 2021 10:22 AM EDT documented as of this encounter Miscellaneous Notes * Telephone Encounter - Brigitte Valadez - 07/28/2023 10:03 AM EDT Tc from pt requesting a HDF appt. [place] [facility] [place]: 07[place]19 Discharge date: 07/25 Diagnosed: Massive UTI documented in this encounter Plan of Treatment Upcoming Encounters Date Type Department Care Team (Late st Contact Info) Description 05/16/2024 9:30 AM EST Procedure Visit [facility] [address] [place] [address] Lexi Thomson CNM [address] [place] [address] documented as of this encounter Visit Diagnoses Not on filedocumented in this encounter Additional Health Concerns Assessment Noted Time PHQ-9 Depression Total Score: 9 07/05/19 24 4:20 PM EDT documented as of this encounter Care Teams City Treasurer Relationship Specialty Start Date End Date Ashanti August FNP [address] [place] [address] PCP - General Family Medicine 11/24/21 Jeff Villarreal FNP [address] [place] [phone] Nurse Practitioner Family Medicine 02/20/23 documented as of this encounter
--- OUTSIDE RECORDS SUMMARY | 2024-04-29 18:41 | XMS_ITS | Encounter Summary ---
Author Organization [employer] Address [address] [place] [address] 7[address] [place] [address] Care Team Providers Care Manager Staffing Name Role Phone Ashanti August [facility] Primary Care Provider [phone] Jeff Villarreal [employer] Unavailable Unavailable Encounter Details Date Type Department Care Team (Late Contact Info) Description 05/03/2022 Orders Only [facility] MED & PEDS [address] [place] [address] Elizabeth Meadows LPN Social History Tobacco Use [...] not to disclose 2021 10:22 AM EDT COVID-19 Exposure Response Date Recorded In the last 10 days, have yo u been in contact with someone who was confirmed or suspected to have Coronavirus/COVID-19? No / Unsure 04/11/2022 1:33 PM EST documented as of this encounter Plan of Treatment Upcoming Encounters Date Type Department Care Team (Late Contact Info) Description 05/16/2024 9:30 AM EST Procedure Visit [facility] [address] [place] [address] Lexi Thomson CNM [address] [place] [address] documented as of this encounter Visit Diagnoses Not on filedocumented in this encounter Additional Health Concerns Assessment Noted Time PHQ-9 Depression Total Score: 13 023 2:44 PM EST documented as of this encounter Care Teams Manager Staffing Relationship Specialty Start Date End Date Ashanti August FNP [address] [place] [id number] PCP - General Family Medicine 11/24/21 Jeff Villarreal FNP [address] [place] [address] Nurse Practitioner Family Medicine 02/20/23 documented as of this encounter
--- OUTSIDE RECORDS SUMMARY | 2024-04-29 18:41 | XMS_ITS | Encounter Summary ---
Author Organization [employer] Address [address] [place] [address] [address] [place] [address] Care Team Providers Care Barrel Charrer Name Role Phone Ashanti August Primary Care Provider [phone] Jeff Villarreal Unavailable Unavailable Reason for Visit * Reason Comments Med Refill Encounter Details Date Type Department Care Team ([facility] Contact Info) Description 10/16/2022 Refill [facility] MEDICINE [address] [place] [address] Jeff Villarreal FNP Depression, unspecified depression type Social History Tobacco Use Types Packs/Day Years Used Date Smoking Tobacco: Former Cigarettes Passive Smoke Exposure: Past Smokeless Tobacco: Never PHQ-2 Answer Date Recorded Patient Health Questionnaire-2 [...] suspected to have Coronavirus/COVID-19? No / Unsure 09/20/2022 11:14 AM EDT documented as of this encounter Plan of Treatment Upcoming Encounters Date Type Department Care Team (Late Contact Info) Description 05/16/2024 9:30 AM EST Procedure Visit [facility] PEDS [address] [place] [address] Lexi Thomson CNM [address] [place] [address] documented as of this encounter Visit Diagnoses Diagnosis Depression, unspecified depression type documented in this encounter Additional Health Concerns Assessment Noted Time PHQ-9 Depression Total Score: 13 023 2:44 PM EST documented as of this encounter Care Teams Barrel Charrer Relationship Specialty Start Date End Date Ashanti August FNP [address] [place] [address] PCP - General Family Medicine 11/24/21 Jeff Villarreal FNP [address] [place] [address] Nurse Practitioner Family Medicine 02/20/23 documented as of this encounter
--- OUTSIDE RECORDS SUMMARY | 2024-04-29 18:41 | XMS_ITS | Clinical Summary ---
Author Organization [facility] Address [address] [place] [address] Care Team Providers Care Buggy Driver Name Role Phone Suri Diamond GABBY Primary [...] Plan of Treatment Not on file Insurance [facility] [employer] Member Subscriber Plan / Payer (Ef fective 2013-Present) Name:Rusty Salmeronlia Relation to Subscriber:Self Name:Rusty Salmeronlia Payer ID:[id number] Group ID:[id number] Type:Medicaid Address: [facility] [address] [place] [address] Care Teams Buggy Driver Relationship Specialty Start Date End Date Suri Diamond NP PCP - General Family Medicine PATIENT MANAGER 12/17/12
--- OUTSIDE RECORDS SUMMARY | 2024-04-29 18:41 | XMS_ITS | Encounter Summary ---
Author Organization [employer] Address [address] [place] [address] [address] [place] [address] Care Team Providers Care Senior Librarian Name Role Phone Ashanti August INDIVIDUAL PENSION ADVISER Primary Care Provider [phone] Jeff Villarreal INDIVIDUAL PENSION ADVISER Unavailable Unavailable Encounter Details Date Type Department Care Team ([facility] Contact Info) Description 09/20/2022 Orders Only [facility]ED[facility] [address] [place] [address] Elizabeth Meadows LPN Social History Tobacco Use [...] 05/16/2024 9:30 AM EST Procedure Visit [facility] [address] [place] [address] Lexi Thomson CNM [address] [place] [address] documented as of this encounter Visit Diagnoses Not on filedocumented in this encounter Additional Health Concerns Assessment Noted Time PHQ-9 Depression Total Score: 13 023 2:44 PM EST documented as of this encounter Care Teams Senior Librarian Relationship Specialty Start Date End Date Ashanti August FNP [address] [place] [phone] PCP - General Family Medicine 11/24/21 Jeff Villarreal FNP [address] [place] [address] Nurse Practitioner Family Medicine 02/20/23 documented as of this encounter
--- OUTSIDE RECORDS SUMMARY | 2024-04-29 18:41 | XMS_ITS | Clinical Summary ---
Author Organization [employer] Address [address] [place] [address] 7 [place] [address] Care Team Providers Care Robotics Testing Technician Name Role Phone Ashanti August [facility] Primary Care Provider [phone] Jeff Villarreal CANDY POLISHER Unavailable Unavailable Allergies Active Allergy Reactions Criticality Noted Date Comments Hydrocodone-Acetaminophen Itching High 12/17/2012 Oxycodone Rash,Itching High 07/13/2016 Other reaction(s): Rash Oxycodone-Acetaminophen Itching 12/17/2012 Zolpidem Rash High 07/13/2016 Medications * This document contains information received from the source organization and may not represent a complete record from that organization. Spacer/Aero-Hold ing Chambers (Pro Comfort Spacer Adult) miscIndications: COPD exacerbation (CMS/HCC) Use qid prn sob/cough with inhaler 1 each 023 Active albuterol 108 (90 Base) MCG/ACT inhalerIndicatio ns:COPD exacerbation (CMS/HCC) Inhale 2 puffs every 6 (six) hours if needed for wheezing. 18 g 1 023 Active FeroSul 325 (65 Fe) MG tabletIndication s:Anemia due to chronic kidney disease, unspecified CKD stage TAKE 1 TABLET BY MOUTH EVERY MORNING 90 tablet 023 Active Alcohol Swabs (Alcohol Prep) 70 % pads USE DIRECTED TWICE DAILY 023 Active Linzess 145 MCG capsule Take 1 capsule by mouth once daily 023 Active omeprazole (PriLOSEC) [address] capsule TAKE 1 CAPSULE BY MOUTH TWICE DAILY IN THE MORNING AND AT BEDTIME 024 Active Senna-Time 8.6 MG tablet TAKE 2 TABLETS ORALLY BEDTIME NEEDED FOR CONSTIPATION FOR 30 DAYS 023 Active Trelegy Ellipta 200-62.5-25 MCG/ACT aerosol powderIndication s:Chronic obstructive pulmonary disease, unspecified COPD type ([facility]) INHALE 1 PUFF BY MOUTH EVERY DAY AT THE SAME TIME 60 each Active glucose blood (FREESTYLE LITE) test stripIndications :Type 2 diabetes mellitus with other specified complication, without long-term current use of insulin ([facility]) USE TO TEST BLOOD SUGAR TWICE DAILY 100 each Active TRUEplus Lancets 33G miscIndications: Type 2 diabetes mellitus with other specified complication, without long-term current use of insulin ([facility]) USE TO TEST BLOOD SUGAR TWICE DAILY 100 each 024 Active buPROPion XL (Wellbutrin XL) 150 MG 24 hr tablet Take 1 tablet (150 mg) by mouth in the morning. Do not crush, chew, or split. 90 tablet 3 024 Active DULoxetine (Cymbalta) [address] capsuleIndicatio ns:Depression, unspecified depression type Take 1 capsule (60 mg) by mouth Once per day. 90 capsule 3 024 Active hydrOXYzine pamoate (Vistaril) 50 MG capsuleIndicatio ns:Depression, unspecified depression type TAKE 1 CAPSULE BY MOUTH EVERY 8 HOURS NEEDED FOR ANXIETY 90 capsule 5 024 Active traZODone (Desyrel) 100 MG tablet Take 2 tablets (200 mg) by mouth at bedtime. 180 tablet 3 024 Active QUEtiapine (SEROquel) 400 MG tablet TAKE 1/2 TABLET BY MOUTH EVERY MORNING and TAKE 1 AND 1/2 TABLETS BY MOUTH AT BEDTIME 60 tablet 3 024 Active dulaglutide (Trulicity) 0.75 MG/0.5ML solution pen-injectorIndi cations:Type 2 diabetes mellitus with stage 4 chronic kidney disease, without long-term current use of insulin ([facility]) Inject 0.75 mg under the skin 1 (one) time per week. 4 each 11 Active D3 Super Strength 50 MCG (2000 UT) capsuleIndicatio ns:Vitamin D deficiency TAKE 2 CAPSULES BY MOUTH ONCE DAILY IN THE MORNING 180 capsule 3 Active glucose 4 g chewable tabletIndication s:Type 2 diabetes mellitus with stage 4 chronic kidney disease, without long-term current use of insulin ([facility]) Chew 4 tablets (16 g) if needed for low blood sugar. 50 tablet 12 024 2024 Active Continuous Glucose Sensor (FreeStyle Zeke 2 Sensor) miscIndications: Type 2 diabetes mellitus with stage 4 chronic kidney disease, without long-term current use of insulin (CMS/HCC),Hypogl ycemia Use as directed 2 each 3 Active Continuous Glucose Instructor Pilot (FreeStyle Zeke 2 [place]) deviceIndication s:Type 2 diabetes mellitus with stage 4 chronic kidney disease, without long-term current use of insulin (CMS/HCC),Hypogl ycemia Use as directed 1 each Active lidocaine (Lidoderm) 5 % patchIndications :Cervical radiculopathy Apply 1 patch topically Once per day. Remove & discard patch within 12 hours or as directed by MD. 30 patch 3 Active atorvastatin (Lipitor) 80 MG tablet TAKE 1 TABLET BY MOUTH AT BEDTIME 90 tablet Active Vitamin E 45 MG (100 UNIT) capsule Take 1 capsule by mouth Once per day. TAKE 1 CAPSULE BY MOUTH EVERY MORNING 90 capsule Active gabapentin (Neurontin) 100 MG capsuleIndicatio ns:Cervical radiculopathy Take 1 capsule three times daily for chronic. May self increase evening dose up to 3 capsules (300mg) if needed for symptom relief. 90 capsule 11 025 Active pregabalin (Lyrica) 75 MG capsule TAKE 1 CAPSULE BY MOUTH THREE TIMES DAILY IN THE MORNING, EVENING, AND BEDTIME 024 2024 Discontinued Active Problems Problem Noted Date Diagnosed Date Chronic obstructive pulmonary disease 01/31/2024 Overview (01/31/2024): Theophylline added to regimen. Continue trelegy. Continue continuous 2l O2.Has lung CT screening [place] [facility] [place] Lam Witnessed seizure-like activity 08/18/2023 Major depressive disorder, r ecurrent, severe with psychotic features 05/25/2023 Assessment & Plan (08/31/2023 3:47 PM EDT): Mood is a little better, hallucinations not fully eradicated (visual hallucinations of a person looking at her, and mild auditory hallucinations). Not sleeping well but no problems with new Trazodone 100. Will now increase to Trazodone 200 mg at bedtime. Continue Seroquel 400mg to take 0.5 tablets (200 mg) in the morning and 1.5 tablets (600 mg) at bedtime, Bupropion XL 150 mg daily in the morning, Clonidine 0.1 mg BID, Duloxetine 60 mg BID, Hydroxyzine 50 mg q8 h prn anxiety. Patient is on significant psychiatric polypharmacy, and numerous chronic conditions with risk for drug- drug and drug-disease interactions. This provider has consulted [facility] clinical pharmacist regarding medication safety. Patient had EKG at ED on 2023 which was normal. She will F/U with therapist at [facility] and has discussed the possibility of referral to their prescriber when this provider leaves the practice. However, since this provider will be retiring, patient will be referred to new psychiatric prescriber from [facility], contracted with [facility]. Reviewed with patient that new provider will be outside the [facility] organization and patient gives verbal consent to share information with provider. Any issues or concerns contact [facility]. All her questions were answered and I have wished her well. She agrees with the plan Assessment & Plan (06/27/2023 11:18 AM EDT): Still not doing well, depressed, with persistent visual hallucinations (of a person looking at her) and mild auditory hallucinations. Very poor sleep (both sleep onset and sleep maintenance problems). Will stop Mirtazapine 45 mg at bedtime. Will start Trazodone 100 mg at bedtime. Continue Seroquel 400mg to take 0.5 tablets (200 mg) in the morning and 1.5 tablets (600 mg) at bedtime. Continue other medications: Bupropion XL 150 mg daily in the morning, Clonidine 0.1 mg BID, Duloxetine 60 mg BID, Hydroxyzine 50 mg q8 h prn anxiety. This provider consulted [facility] clinical pharmacist regarding medication safety. Patient had EKG at ED on 2023 which was normal. Provider will also consult patient's PCP about possibly changing her Atorvastatin 80 mg to alternative lipid med, as Atorvastatin can be associated with nightmares. She has started with new therapist at [facility] and has discussed the possibility of referral to their prescriber when this provider leaves the practice. Meanwhile, F/U with me in 2 months. She agrees with the plan Assessment & Plan (05/25/2023 2:27 PM EST): Still not doing well, depressed, with persistent visual hallucinations (of a person looking at her). Auditory hallucinations improved. Very poor sleep (both sleep onset and sleep maintenance problems). Reviewed sleep hygiene. Will increase to Seroquel 400mg to take 0.5 tablets (200 mg) in the morning and 1.5 tablets (600 mg) at bedtime. Continue other medications: Bupropion XL 150 mg daily in the morning, Clonidine 0.1 mg BID, Duloxetine 60 mg BID, Mirtazapine 45 mg at bedtime, Hydroxyzine 50 mg q8 h prn anxiety. She has started with new therapist at [facility] and has discussed the possibility of referral to their prescriber when this provider leaves the practice. On 01/10/2023 provider informed pt that I would be retiring. Meanwhile, F/U with me in 1 month. She agrees with the plan Primary hypertension 05/15/2023 Overview (01/31/2024): Intolerant of CAROL/ARB (hyperkalemia) all BP meds discontinued at last visit due to hypotension. Evaluated in ED with negative head CT/negative ACS eval. She was referred back to cardiology--has appt in March Assessment & Plan (05/15/2023 4:54 PM EST): ?? START amlodipine 5mg daily. Reviewed administration, risks, side effects ?? Reviewed ED precautions to include chest pain, shortness of breath, severe headache, sudden vision changes or BP >=180/>=120 mmHg. Contact HC if three or more BP readings >140/90. Healthcare maintenance 01/15/2023 Overview (08/18/2023): Mammo: 08/2021-->repeat screening ordered today Pap: 2019-NIL HPV neg-->repeat 2024 C-scope: Followed by [facility] BMD: Routine age 66 Memory impairment 01/02/2023 Overview (08/14/2023): - Increased forgetfulness-names, task recall, forgetting what she is writing - Leaving stove on - Several episodes of feeling lost/disoriented in familiar places - Family members have also shared concerns - MGM with dementia in advanced age - Negative EEG 03/2023. - Labs (CBC, B12/Folate, TSH) all within normal limits 10/2022 - Brain MRI 12/29/22 negative Assessment & Plan (01/15/2023 11:58 AM EDT): ?? Discussed MRI findings with patient ?? Evaluation negative for dementia or MCI thus far, suspect pt report of memory impairment s/t increased stress and chronic health conditions ?? Will continue to monitor sx Hx of ischemic bowel disease 10/28/2022 Anemia 10/25/2022 Aortic valve sclerosis 10/25/2022 ELIZABET (acute kidney injury) 10/25/2022 Overview (05/15/2023): ?? Follow up as scheduled with nephrology ?? Avoid NSAID's and maintain hydration Cirrhosis 10/25/2022 Overview (10/28/2022): ?? Early REAL cirrhosis ?? Followed by [facility] Dysphagia, pharyngoesophageal phase 10/25/2022 Overview (05/15/2023): 07/21 EGD showed gastritis and changes suggestive of esophageal motility disorder Colonoscopy showed moderate diverticulosis in the entire colon and hemorrhoids and no polyps 09/2019 A gastric emptying study was normal. Frequent falls 10/25/2022 Hyperkalemia 10/25/2022 Overview (05/15/2023): ?? Lisinopril discontinued 04/2022 Lumbar radiculopathy 10/25/2022 Overview (10/28/2022): ?? S/p multiple spinal surgeries through [facility] 09/2021 for cyst removal ?? Followed by [facility] pain mngmt NIURKA (obstructive sleep apnea) 10/25/2022 Pulmonary nodules 10/25/2022 Supplemental oxygen dependent 10/25/2022 Weak urinary stream 10/25/2022 Overview (10/28/2022): ?? Followed by [facility] [place] ?? Bethanechol Tremor of both hands 09/20/2022 Assessment & Plan (09/20/2022 11:56 AM EDT): Due to increased albuterol use, trest of neurological exam is normal. No evidence of other EPS. Depression 04/19/2022 Assessment & Plan (04/13/2023 9:37 AM EST): Still not doing well, depressed, auditory and visual hallucinations, poor sleep. Will increase bedtime dose of Seroquel to 400mg. Continue other medications: Seroquel 100 mg in the morning, Bupropion XL 150 mg daily in the morning, Clonidine 0.1 mg BID, Duloxetine 60 mg BID, Mirtazapine 45 mg at bedtime, Hydroxyzine 50 mg q8 h prn anxiety. Unfortunately she no longer has outpatient therapy as her case was closed. Will refer again. On 01/10/2023 provider informed pt that I would be retiring. Meanwhile, F/U with me in 6 weeks. She agrees with the plan Assessment & Plan (02/27/2023 4:13 PM EST): Still not doing well, depressed and irritable, auditory and visual hallucinations. Will increase am dose of Seroquel 100 mg. Continue other medications: Seroquel 300 mg at bedtime, Bupropion XL 150 mg daily in the morningClonidine 0.1 mg BID, Duloxetine 60 mg BID, Hydroxyzine 50 mg q8 h prn anxiety. F/U with therapist as usual. F/U with me in 1 month. Today 01/10/2023 provider informed pt that I would be retiring within the next year or so, suggest she discuss with her therapist getting a referral to agency prescriber. She agrees with the plan Assessment & Plan (01/10/2023 10:36 AM EDT): Still not doing well, depressed and irritable, auditory and visual hallucinations. Wants to stay in bed all day. Will add Bupropion XL 150 mg daily in the morning. Continue Seroquel 50 mg in am, Seroquel 300 mg at bedtime, Clonidine 0.1 mg BID, Duloxetine 60 mg BID, Hydroxyzine 50 mg q8 h prn anxiety. F/U with therapist as usual. F/U with me in 1 month. Today 01/10/2023 provider informed pt that I would be retiring within the next year or so, suggest she discuss with her therapist getting a referral to agency prescriber. She agrees with the plan Assessment & Plan (11/28/2022 12:08 PM EDT): Not doing well, increased anxiety, poor sleep, recurrence of auditory and visual hallucinations. Will add Seroquel 50 mg in am, increase to Seroquel 300 mg at bedtime. Start Clonidine 0.1 mg at bedtime, then BID. Cautioned about dizziness, change position carefully. Continue Duloxetine 60 mg BID, Hydroxyzine 50 mg q8 h prn anxiety. F/U with therapist as usual. F/U with me in 6 weeks. She agrees with the plan. Assessment & Plan (04/19/2022 3:36 PM EST): Worried about her health with recent falls and may need additional back surgery. Not sleeping well r/t pain. Will continue Seroquel 200 mg at bedtime, and have increased quantity of Seroquel 50 mg to take 1 or 2 tabs in addition at bedtime. Continue other medications as usual. F/U 3-4 weeks. She agrees with the plan. Congestive heart failure 02/27/2021 Overview (10/28/2022): Followed by Dr. Saenz, LVEF 60-65% and mild diastolic dysfunction 03/08/21 Type 2 diabetes mellitus wit h diabetic chronic kidney disease 02/15/2021 Overview (01/31/2024): Jardiance discontinued d/t recurrent UTI Trulicity 0.75 Current A1c: Foot Exam: 08/2023 Risk 0 Eye Exam: 05/2023 Statin: Yes ASA: No CAROL/ARB: Yes Encouraged regular aerobic exercise for improved glycemic control Encouraged daily foot checks Encouraged lean protein snacks and to avoid foods high in sugar and simple carbohydrates Treatment Goals: A1c goal: <7% FBG goal: <130 2 hour post prandial goal: <180 Assessment & Plan (05/15/2023 4:53 PM EST): Lab Results Component Value Date HGBA1C 6.4 (A) 01/02/2023 ?? Update labs prior to follow up ?? Continue current regimen Assessment & Plan (03/08/2023 3:05 PM EST): Lab Results Component Value Date HGBA1C 6.4 (A) 01/02/2023 Well controlled Continue current regimen Assessment & Plan (01/15/2023 12:01 PM EDT): Lab Results Component Value Date HGBA1C 6.4 (A) 01/02/2023 ?? Well controlled ?? Continue current regimen Assessment & Plan (10/28/2022 10:33 AM EDT): Lab Results Component Value Date HGBA1C 6.3 (A) 10/25/2022 ?? Well controlled ?? Continue current regimen Assessment & Plan (09/20/2022 11:55 AM EDT): On Jardiance 10mg for now. Schedule an appt with PCP and told her to fu with Dr Maddox (renal). Counseled re more frequent low calorie/carb meals. Check fgstk 2x daily Encouraged physical activity as tolerated. Stage 3 chronic kidney disease 02/11/2021 Overview (10/28/2022): ?? Followed by Dr. Baird, nephrology IBS (irritable bowel syndrome) 01/20/2021 Steatohepatitis 01/20/2021 Fibromyalgia 12/08/2020 Overview (10/28/2022): ?? Lyrica 75mg t.i.d ?? Followed by rheumatology Hyperlipidemia 02/09/2017 Overview (05/15/2023): Atorvastatin 80mg daily Arthritis 06/06/2013 Resolved Problems Problem Noted Date Diagnosed Date Resolved Date Dysuria 09/12/2023 01/31/2024 Assessment & Plan (09/12/2023 7:34 PM EDT): Here orthostatic VS are negative, normal VS , pt has mild dry oral mucosa -Urine dipstick today: LE small ,rest negative -CT abd and pelvis w/o contrast 07/2023 :Air is seen within the bladder can be associated with infections. Incidental note made of an enlarged fatty liver with mildly nodular border and associated mild splenomegaly, colonic diverticulosis without diverticulitis, small ventral hernias, dilated ovarian veins and other findings described above. -08/2023 cr wnl Pt reports Reports Cbgs in fasting 90s to 115s in fasting -UA w reflex cx sent today -start empiric cefuroxime 500 BID for 5 days until results are back -CBC ,chem order today -advised hydration -alarm signs and symptoms discussed w pt in length in case needs to go to ED -f w PCP -Apt w PCP 10/13/2023 Acute respiratory failure with hypoxia 08/18/2023 12/19/2023 COPD with acute exacerbation 02/14/2023 12/19/2023 Assessment & Plan (02/14/2023 1:54 PM EST): O2 sat at RA is normal. Start [...] fu with surgeon and probably with PCP Diastolic dysfunction 10/25/20222022 Low hemoglobin and low hematocrit 10/25/2022 10/28/2022 Sacroiliac joint dysfunction 10/25/2022 01/31/2024 Urinary retention with incom plete bladder emptying 10/25/2022 10/28/2022 Urinary hesitancy 10/25/2022 10/28/2022 COPD exacerbation 09/20/2022 10/28/2022 Assessment & Plan (09/20/2022 11:54 AM EDT): She's clinically stable, no RD Increased Albuterol to quid and use the spacer. Continue Trelegy. I explained that albuterol may increase shakiness , palpitations and a bit of restlessness for few hours while using it. Recommended to increase water intake. Reconsult prn Ischemic colitis 11/24/2021 01/31/2024 Overview (10/28/2022): ?? S/p emergency surgery [place] 11/2021 ?? Now followed by [facility] Vascular insufficiency of intestine 11/24/2021 01/31/2024 Renal function test abnormal 02/11/2021 10/28/2022 Chronic obstructive lung disease 01/17/2021 12/19/2023 Overview (05/15/2023): ?? Trelegy ellipta ?? Albuterol PRN ?? Supplemental 02 ?? 35 pack year smoking hx ?? [facility] pul[facility] History of total knee arthroplasty 02/09/2017 10/28/2022 Depressive disorder 02/20/2013 10/29/19 Assessment & Plan (09/20/2022 12:01 PM EDT): She's doing well, no panic attacks at this time, seems to be dealing well with her son's addiction. FU closely with psycho pharacology clinic. Current smoker 12/17/2012 10/28/2022 Encounters Date Type Department Care Team Description 04/25/2024 Telephone [facility] MEDICINE [address] [place] [phone] Ashanti August FNP Requesting a call back 04/24/2024 10:00 AM EST Office Visit [facility] [address] [facility] [place] [address] Ashanti August FNP Type 2 diabetes mellitus with stage 4 chronic kidney disease, without long-term current use of insulin ([facility]) (Primary Dx); Overweight; Cervical radiculopathy; Dietary counseling; Exercise counseling 04/24/2024 Travel 04/23/2024 Telephone [facility] [address] [facility] [place] [address] [address] [facility] chart prep 04/12/2024 Patient Outreach [facility] [address] [facility] [place] [address] [facility] Pre-visit Planning (SDOH screening negative and tobacco screening negative) 04/02/2024 Telephone [facility] [address] [facility] [place] [address] [facility] Medication Question 03/29/2024 Refill [facility]INE [address] [place] [address] [facility] Primary hypertension 03/29/2024 Telephone [facility] [address] [facility] [place] [address] Heriberto العراقي, PharmD 03/29/2024 Refill [facility] [address] [facility] [place] [address] [facility] Primary hypertension 03/28/2024 Refill [facility] [address] [place] [address] [place] [facility] Primary hypertension 03/28/2024 Refill [facility] [address] [place], [place] [id number] Elizabeth Moss DO 03/22/2024 Travel 03/20/2024 Refill [facility] [address] [place] [address] [facility] Primary hypertension 03/08/2024 Telephone [facility] [address] [place] [address] Brynn Quiñonez, RN Results 03/06/2024 Orders Only [facility] [address] [place] [address] Coffee CreekAshanti FNP Cervical stenosis of spinal canal (Primary Dx) 02/16/2024 Orders Only GENERIC EXTERNAL DATA DEPARTMENT Provider, Generic External Data 02/07/2024 2:20 PM EST Office Visit [facility] [address] [place] [phone] Vaishali Davis MD Urinary tract infection without hematuria, site unspecified (Primary Dx) 02/07/2024 Orders Only GENERIC EXTERNAL DATA DEPARTMENT Provider, Generic External Data 02/07/2024 Telephone [facility] [address] [place] [phone] Coffee CreekAshanti FNP Nurse Triage 01/31/2024 10:15 AM EDT Office Visit [facility] [address] [place] [phone] Coffee CreekAshanti FNP Type 2 diabetes mellitus with stage 4 chronic kidney disease, without long-term current use of insulin ([facility]) (Primary Dx); Hypoglycemia; Cervical radiculopathy; Encounter for immunization; Hypoglycemia unawareness associated with type 2 diabetes mellitus (CMS/HCC) 01/31/2024 Telephone [facility] [address] [place] [phone] Lelo Giang RNhvac/r service technician 01/31/2024 Travel from Last 3 Months Immunizations Name Administration Dates Next Due Influenza Injectable Quadriv alant Preservative Free IIV4 MDCK 12/24/2021,01/10/2019 Influenza injectable quadriv alent IIV4 with preservative 02/09/2017,04/08/2016 Influenza injectable quadriv alent preservative free 01/02/2023,12/22/2020,11/27/2019,2017 Influenza, IIV3, injectable 01/28/2015, 3 Influenza, seasonal, injecta ble, preservative free 12/20/2023,01/04/2017 Pfizer Covid-19 Vaccine 12+ 01/31/2024, 3 Pfizer Covid-19 Vaccine 12+ Bivalent 02/28/2022 Pfizer Covid-19 Vaccine 12+ charla-sucrose ([place] Cap) 09/08/2021 Pneumococcal Conjugate PCV 20 11/17/2021 Tdap 01/17/2019,11/05/2014 Zoster, Recombinant 02/23/2021,12/16/2020 Social History Tobacco Use Types Packs/Day Years [...] not to disclose 2021 10:22 AM EDT Last Filed Vital Signs Vital [...] Mass Index 29.19 04/24/2024 9:54 AM EST Plan of Treatment Upcoming Encounters Date Type Department Care Team (Late st Contact Info) Description 05/16/2024 9:30 AM EST Procedure Visit [facility] [address] [place], [place] [phone] Lexi Thomson, MICHELETM [address] [place], [place] [phone] Health Maintenance Due Date Last Done Comments CT Colonography 1961 FIT DNA/Cologuard 1960 FIT 1961 FOBT 1960 Sigmoidoscopy 1961 Pap Smear 1982 RSV Patients and Patients Aged 60 years or older (1 - Risk 60-74 years 1-dose series) 2021 Lipid Panel 05/08/2024 05/08/2023, 10/02, 03/02/2022, Additional history exists Cervical Cancer Screening 05/16/2024 HPV/Cotest 05/16/2024 05/16/2019, 05/11/2016 Diabetes: Foot Exam 08/13/2024 08/14/2023, 08/14/2023, 08/14/2023, Additional history exists Diabetes: Hemoglobin A1C 10/22/2024 025, 01/31/2024, 10/13/2023, Additional history exists Alcohol/Substance Use Screening 12/19/2024 12/20/2023 SDOH Screening 04/12/2025 04/12/2024 Depression Screening 04/24/2025 04/24/2024, 04/24/19 25 Tobacco Screening 04/24/2025 04/24/2024 Colonoscopy 05/04/2025 07/30/2019 Colorectal Cancer Screening 05/04/2025 Eye Exam 05/11/2025 05/11/2023, 11/2023, 05/11/2023, Additional history exists Mammogram 08/31/2025 09/01/2023, 08/20/2021 DTaP/Tdap/Td Vaccines (3 - Td or Tdap) 01/17/2029 01/17/2019, 11/05/2014 Zoster Vaccines Completed 02/23/2021, 12/16/2020 HIV Screening Completed 09/08/2021 Hepatitis C Screening Completed 09/08/2021 Pneumococcal Vaccine: Pediatrics (0 to 5 Years) and At-Risk Patients (6 to 64 Years) Completed 11/17/2021 Influenza Vaccine Completed 12/20/2023, , 12/24/2021, Additional history exists COVID-19 Vaccine Completed 01/31/2024, , 02/28/2022, Additional history exists HIB Vaccines Aged Out No longer eligi ble based on patient's age to complete this topic HPV Vaccines Aged Out No longer eligi ble based on patient's age to complete this topic Hepatitis A Vaccines Discontinued Hepatitis B Vaccines Discontinued IPV Vaccines Aged Out No longer eligi ble based on patient's age to complete this topic Meningococcal Vaccine Aged Out No liz pascual eligible based on patient's age to complete this topic RSV under 20 months Aged Out No longe r eligible based on patient's age to complete this topic Rotavirus Vaccines Aged Out No longer eligible based on patient's age to complete this topic Procedures Procedure Name Priority Date/Time Associated Diagnosis Comments POCT GLUCOSE Routine 04/24/2024 10:15 AM EST Type 2 diabetes mellitus with stage 4 chronic kidney disease, without long-term current use of insulin ([facility]) POCT GLYCATED HEMOGLOBIN, TOTAL Routine 04/24/2024 10:15 AM EST Type 2 diabetes mellitus with stage 4 chronic kidney disease, without long-term current use of insulin ([facility]) MR CERVICAL SPINE WO CONTRAST Urgent 03/05/2024 10:06 AM EST Cervical radiculopathy LIVER FIBROSIS, FIBROTEST ACTITEST PANEL Routine 02/16/2024 9:18 AM EST COMPREHENSIVE METABOLIC PANEL Routine 02/16/2024 9:[address] ABDOMEN PELVIS WO CONTRAST Routine 02/07/2024 7:11 PM EST URINALYSIS, COMPLETE, WITH REFLEX TO CULTURE Routine 02/07/2024 6:14 PM EST CULTURE, URINE, ROUTINE Routine 02/07/2024 12:00 AM EST POCT GLUCOSE Routine 01/31/2024 9:54 AM EDT Type 2 diabetes mellitus with stage 4 chronic kidney disease, without long-term current use of insulin (CMS/HCC) POCT GLYCATED HEMOGLOBIN, TOTAL Routine 01/31/2024 9:54 AM EDT Type 2 diabetes mellitus with stage 4 chronic kidney disease, without long-term current use of insulin (CMS/HCC) BI MAMMOGRAM SCREENING TOMOSYNTHESIS BILATERAL Routine 09/01/2023 8:16 AM EDT LIPID PANEL, STANDARD Routine 05/08/2023 11:13 AM EST Type 2 diabetes mellitus with stage 3a chronic kidney disease, without long-term current use of insulin (CMS/HCC) ZZZ HISTORICAL HEPATITIS C AB W/REFL TO HCV RNA, QN, PCR Routine 09/08/2021 9:52 AM EDT HIV 1/2 ANTIGEN/ANTIBODY, FOURTH GENERATION W/RFL Routine 09/08/2021 9:52 AM EDT HM COLONOSCOPY Routine 07/30/2019 ZZZ HISTORICAL HPV MRNA E6/E7 Routine 05/16/2019 10:37 AM EST from Last 3 Months or Most Recently Relevant to Health Maintenance Results * (ABNORMAL) POCT HGB A1C (04/24/2024 10:15 AM EST) Only the most recent of2 resultswithin the time period is included. Hemoglobin A1C 6.8(A) 4.0 - 6.0 % QC Media Lot # ,[id number] Lot# Expiration Date Blood 04/24/2024 10:1 5 AM EST [facility] [employer] POINT OF CARE TEST ENTER/EDIT ORDERABLES Final Result * POCT Glucose (04/24/2024 10:15 AM EST) Only the most recent of2 resultswithin the time period is included. Glucose Blood, POC 146 60 - 200 mg/dL Blood Capillary blood specimen / Unknown 04/24/2024 10:15 AM EST [facility] [employer] POINT OF CARE TEST ENTER/EDIT ORDERABLES Final Result * MR Cervical Spine w/o Contrast (03/05/2024 10:06 AM EST) Anatomical Region Laterality Modality Spine, C-spine Magnetic Resonan ce 03/05/2024 10:0 6 AM EST Narrative 03/05/2024 1:45 PM EST ? [facility] ?[address] ?[place] [address] ? Magnetic Resonance Report ? Signed ? Patient: Salmeron,Sharri ?MR#: [id number] ?? 703 ? : 1960 ?Acct:[id number] ? Age/Sex: 63 / F ?ADM Date: 12/03/24 ? Loc: HO.MRI ? Attending Dr: Ashanti PAREDES ? Ordering Physician: Ashanti August ?? Date of Service: 03/05/24 ?? Procedure(s): MR cervical spine wo con ?? Accession Number(s): [id number] ? cc: Ashanti August ? EXAMINATION: ?? MR CERVICAL SPINE WITHOUT CONTRAST ? CLINICAL INFORMATION: ?? Worsening right-sided cervical radiculopathy for 1 month ? COMPARISON: ?? MRI cervical spine on 08/27/2013 ? TECHNIQUE: ?? MRI of the cervical spine was obtained using routine sequences without ?? contrast. ? FINDINGS: ?? The imaged posterior fossa is unremarkable. ? Straightening of the normal cervical lordosis. Grade 1 anterolisthesis ?? at C3-4 and C7-T1. Sequelae of anterior spinal fusion at C4-5. ?? Otherwise, no acute bone marrow abnormality. The vertebral body heights ?? are preserved. Multilevel disc desiccation and disc height loss, worse ?? and severe at C6-7. ? The visualized spinal cord is normal in caliber. No abnormal cord ?? signal. ? C2-3: Bilateral facet arthrosis. No significant spinal canal stenosis. ?? Mild to moderate right neural foraminal narrowing. ? C3-4: Disc osteophyte complex, bilateral uncovertebral hypertrophy, and ?? bilateral facet arthrosis. Severe right and moderate to severe left ?? neural foraminal narrowing. No since and spinal canal stenosis. ? C4-5: Postsurgical changes. No significant spinal canal or neural ?? foraminal narrowing. ? C5-6: No significant spinal canal or neural foraminal narrowing. ? C6-7: Disc osteophyte complex, bilateral uncovertebral hypertrophy, and ?? bilateral facet arthrosis. Severe right neural foraminal narrowing. ?? Minimal right eccentric spinal canal stenosis. ? C7-T1: Disc osteophyte complex, bilateral uncovertebral hypertrophy, ?? bilateral facet arthrosis, and ligamentum flavum hypertrophy. Mild to ?? moderate spinal canal stenosis. Severe left and mild right neural ?? foraminal narrowing. ? T1-2: Diffuse disc bulge. No significant spinal canal or neural ?? foraminal narrowing. ? The paravertebral soft tissues are unremarkable. The imaged lung apices ?? are clear. ? MR/MR cervical spine wo con ?? IMPRESSION: ?? 1. ??Sequelae of anterior spinal fusion at C4-5. ?? 2. ??Multilevel cervical spondylosis as described above with mild to ?? moderate spinal canal stenosis at C7-T1 and minimal right eccentric ?? spinal canal stenosis at C6-7. ?? 3. ??Multilevel neural foraminal narrowing which is severe on the right ?? at C3-4, on the right at C6-7, and on the left at C7-T1. ? Electronically signed by: ??Vale Flowers MD ??03/05/2024 01:42 PM EST RP ? Dictated By: ?Vale Flowers MD ? Signed By: ?<Electronically signed by Vale Flowers MD in OV> ? 03/05/24 1342 ? DD/ 1006 ? TD/TT: 03/05/24 1030 ? Freight Elevator Erector: ? Procedure Note Gerson Carrion - 03/05/2024 [place] [address] Magnetic Resonance Report Signed Patient: Allyson Salmeron#: [id number] 703 : 2Acct:[id number] Age/Sex: 63 / FADM Date: 03/05/24 Loc: HO.MRI Attending Dr: Ashanti PAREDES Ordering Physician: Ashanti August Date of Service: 03/05/24 Procedure(s): MR cervical spine wo con Accession Number(s): [id number] cc: Ashanti August EXAMINATION: MR CERVICAL SPINE WITHOUT CONTRAST CLINICAL INFORMATION: Worsening right-sided cervical radiculopathy for 1 month COMPARISON: MRI cervical spine on 08/27/2013 TECHNIQUE: MRI of the cervical spine was obtained using routine sequences without contrast. FINDINGS: The imaged posterior fossa is unremarkable. Straightening of the normal cervical lordosis. Grade 1 anterolisthesis at C3-4 and C7-T1. Sequelae of anterior spinal fusion at C4-5. Otherwise, no acute bone marrow abnormality. The vertebral body heights are preserved. Multilevel disc desiccation and disc height loss, worse and severe at C6-7. The visualized spinal cord is normal in caliber. No abnormal cord signal. C2-3: Bilateral facet arthrosis. No significant spinal canal stenosis. Mild to moderate right neural foraminal narrowing. C3-4: Disc osteophyte complex, bilateral uncovertebral hypertrophy, and bilateral facet arthrosis. Severe right and moderate to severe left neural foraminal narrowing. No since and spinal canal stenosis. C4-5: Postsurgical changes. No significant spinal canal or neural foraminal narrowing. C5-6: No significant spinal canal or neural foraminal narrowing. C6-7: Disc osteophyte complex, bilateral uncovertebral hypertrophy, and bilateral facet arthrosis. Severe right neural foraminal narrowing. Minimal right eccentric spinal canal stenosis. C7-T1: Disc osteophyte complex, bilateral uncovertebral hypertrophy, bilateral facet arthrosis, and ligamentum flavum hypertrophy. Mild to moderate spinal canal stenosis. Severe left and mild right neural foraminal narrowing. T1-2: Diffuse disc bulge. No significant spinal canal or neural foraminal narrowing. The paravertebral soft tissues are unremarkable. The imaged lung apices are clear. MR/MR cervical spine wo con IMPRESSION: 1. Sequelae of anterior spinal fusion at C4-5. 2. Multilevel cervical spondylosis as described above with mild to moderate spinal canal stenosis at C7-T1 and minimal right eccentric spinal canal stenosis at C6-7. 3. Multilevel neural foraminal narrowing which is severe on the right at C3-4, on the right at C6-7, and on the left at C7-T1. Electronically signed by: Vale Flowers MD 03/05/2024 01:42 PM EST RP Dictated By: Vale Flowers MD Signed By: <Electronically signed by Vale Flowers MD in OV> 03/05/24 1342 DD/ 1006 TD/TT: 03/05/24 1030 Freight Elevator Erector: [facility] [employer] IMG MRI PROCEDURES Final Resu lt * (ABNORMAL) Liver Fibrosis (HCV), FibroTest-ActiTest Panel (02/16/2024 9:18 AM EST) Liver Fibrosis Score 0.65 [facility] Liver Fibrosis Stage F3 [facility] Liver Fibrosis Interpretation SEE NOTE [facility] Comment:advanced fibrosisFib ro Test Score (f) Metavir Score f>=0 and f<=0.21 : F0 (no fibrosis)f>0.21 and f<=0.27 : F0-F1 (no fibrosis)f>0.27 and f<=0.31 : F1 (minimal fibrosis)f>0.31 and f<=0.48 : F1-F2 (minimal fibrosis)f>0.48 and f<=0.58 : F2 (moderate fibrosis)f>0.58 and f<=0.72 : F3 (advanced fibrosis)f>0.72 and f<=0.74 : F3-F4 (advanced fibrosis)f>0.74 and f<=1.00 : F4 (severe fibrosis) Nec Inflam Act Score 0.10 [facility] Nec Inflam Act Grade A0 [facility] Nec Inflam Act Interpretation SEE NOTE [facility] Comment:no activityActiTest Score (a) Metavir Score a>=0 and a<=0.17 : A0 (no activity)a>0.17 and a<=0.29 : A0-A1 (no activity)a>0.29 and a<=0.36 : A1 (minimal activity)a>0.36 and a<=0.52 : A1-A2 (minimal activity)a>0.52 and a<=0.60 : A2 (significant activity)a>0.60 and a<=0.62 : A2-A3 (significant activity)a>0.62 and a<=1.00 : A3 (severe activity) JND-Yaenh-3-Macroglo bulin 348(A) 106 - 279 mg/dL [facility] FIB-Haptoglobin 372(A) 43 - 212 mg/dL [facility] Comment:This value is highly elevated over the 99 percentile. Checkthe value and the absence of sepsis. Usual maximum value is320.0 mg/dl. FIB-Apolipoprotein A1 129 101 - 198 mg/dL [facility] FIB-Total Bilirubin 0.7 0.2 - 1.2 mg/dL [facility] FIB-GGT 228(A) 3 - 65 U/L [facility] FIB-ALT 17 6 - 29 U/L [facility] Reference ID [id number] [facility] Footnote SEE NOTE [facility] Comment: The reliability of results is dependent on compliance withthe preanalytical and analytical conditions recommended byBio[employer]ictive. The tests have to be deferred for: acutehemolysis, acute hepatitis, acute inflammation, extrahepatic cholestasis. The advice of a specialist should besought for interpretation in chronic hemolysis and Gilbert'ssyndrome. The test interpretation is not validated in livertransplant patients. Isolated extreme values of one of thecomponents should lead to caution in interpreting theresults. In case of discordance between a biopsy result miranda test, it is recommended to seek the advice of aspecialist. The causes of these discordances could be due toa flaw of the test or to a flaw in the biopsy: i.e. a liverbiopsy has a 33% variability rate for one fibrosis stage.FibroTest is interpretable for chronic hepatitis B and C,alcoholic and non alcoholic steatosis. ActiTest isinterpretable for chronic hepatitis B and C.The performance characteristics have been determined by[facility]. Ithas not been cleared or approved by the U.S. Food and DrugAdministration. Performance characteristics refer to theanalytical performance of the test.[employer], the associated logo, [employer] and all associated [employer] edwards are theregistered trademarks of [employer]. All third partymarks - (R) and (TM) - are the property of their respectiveowners. (C) 3449-1732 [employer]. Allrights reserved.THIS TEST WAS PERFORMED AT:[employer] [id number] [place], [place] ??[id number] JACKSON MD,PHD,CONNER 02/16/2024 9:18 AM EST 02/16/2024 9:18 AM EST us Generic External Data Provider LAB BLOOD ORDERAB LES Final Result [facility] [address] [place] [phone] * (ABNORMAL) Comprehensive Metabolic Panel (02/16/2024 9:18 AM EST) Sodium 138 135 - 145 mmol/L [facility] Potassium 3.4 3.3 - 5.1 mmol/L [facility] Chloride 102 96 - 108 mmol/L [facility] Carbon Dioxide 28 22 - 29 mmol/L [facility] Anion Gap 11(L) 12 - 20 [facility] Urea Nitrogen (BUN) 9 9 - 16 mg/dL [facility] Creatinine, Serum 0.89 0.5 - 1.4 mg/dL [facility] Estimated Glomerular Filt Rate >60 [facility] Comment:Chronic Kidney Disea se: Estimated GFR < 60 mL/min/1.58f7Uarpxw Kidney Disease: Estimated GFR < 15 mL/min/1.73m2 Glucose 113 60 - 115 mg/dL [facility] Calcium 9.9 8.4 - 10.2 mg/dL [facility] Bilirubin, Total 0.8 0.0 - 1.0 mg/dL [facility] Aspartate Amino Transferase 54(H) 5 - 31 U/L [facility] Alanine Aminotransferase 22 0 - 31 U/L [facility] Total Protein 8.2(H) 6.5 - 8.0 g/dL [facility] Albumin Level 4.2 3.5 - 5.0 g/dL [facility] Alkaline Phosphatase 203(H) 39 - 117 U/L [facility] 02/16/2024 9:18 AM EST 02/16/2024 9:18 AM EST us Generic External Data Provider LAB BLOOD ORDERAB LES Final Result Performing Organization Address City/State/[facility] Co de Phone Number [facility] [address] [place] [phone] * CT Abdomen Pelvis w/o Contrast (02/07/2024 7:11 PM EST) Anatomical Region Laterality Modality Body, Pelvis, Abdomen Computed T omography 02/07/2024 7:11 PM EST Narrative 02/07/2024 10:15 PM EST ? [facility] ?[address] ?[place] [address] ? CT Scan Report ? Signed ? Patient: Salmeron,Sharri ?MR#: [id number] ?? 703 ? : 1960 ?Acct:[id number] ? Age/Sex: 63 / F ?ADM Date: 02/07/24 ? Loc: HO.ED ? Attending Dr: ? Ordering Physician: Fara Malhotra ?? Date of Service: 02/07/24 ?? Procedure(s): CT abdomen pelvis wo IV con ?? Accession Number(s): [id number] ? cc: Fara Malhotra; Ashanti August ? EXAMINATION: ?? CT ABDOMEN AND PELVIS WITHOUT CONTRAST ? CLINICAL INFORMATION: ?? Pain, question new ascites ? COMPARISON: ?? CT abdomen 07/24/2023 ? TECHNIQUE: ?? Multidetector volumetric imaging was performed from the superior aspect ?? of the liver through the pubic symphysis. Sagittal and coronal ?? reformatted images were obtained on the technologist's workstation. ? This CT examination was performed using dose optimization techniques as ?? appropriate, variously including the following: ?? *Automated exposure control ?? *Adjustment of mA and/or kV according to patient size (this includes ?? techniques or standardized protocols for targeted exams where dose is ?? matched to indication/reason for exam; i.e. extremities or head) ?? *Use of iterative reconstruction technique ? DLP: ?? 610 mGy-cm ? FINDINGS: ?? LUNG BASES: The visualized lung bases are unremarkable. ? LIVER, GALLBLADDER, AND BILIARY TREE: Hepatomegaly. Right lobe measures ?? 20.3 cm craniocaudal. The liver contour is slightly nodular. Stable ?? small calcification. The liver and spleen attenuation appears similar. ?? No focal hepatic lesion or biliary ductal dilatation is present. Status ?? postcholecystectomy.. ? PANCREAS: Unremarkable. ? SPLEEN: Mild splenomegaly measuring 13.2 cm. ? ADRENAL GLANDS: Unremarkable. ? KIDNEYS AND URETERS: The kidneys are normal in size, shape, and ?? attenuation. Similar mild fullness of the right renal pelvis. No ?? ureteral calculi seen. ? BLADDER: Unremarkable. ? GASTROINTESTINAL TRACT: Stomach is nondistended. No dilated small bowel ?? loops. ??Diverticuli are scattered throughout the large colon. No ?? findings to suggest diverticulitis are identified. Normal appendix. No ?? significant ascites seen.. No free air. ? ABDOMINAL WALL: Redemonstrated is an umbilical hernia with diastasis of ?? the rectus abdominis muscles. An unobstructed loop of small bowel ?? protrudes into this. 2 small supraumbilical ventral hernias containing ?? fat are redemonstrated. No inguinal hernia seen. ? LYMPH NODES: No pathologically enlarged lymph nodes are seen. ? VASCULAR: No aneurysmal dilatation of the aorta. Scattered ?? atherosclerotic vascular calcification. ? PELVIC VISCERA: No suspicious findings. Small calcification ?? redemonstrated within the uterus. ? OSSEOUS STRUCTURES: Redemonstrated posterior spinal fusion at L4-5. ?? Vertebroplasty cement in L2 vertebral body. ??Depression of the superior ?? endplate of T8 vertebral body, stable from previous. Bilateral hip ?? joint space narrowing. Symphysis pubis degeneration. ? CT/CT abdomen pelvis wo IV con ?? IMPRESSION: ?? A cause for the patient's pain has not been determined. No significant ?? ascites is seen. ? Colonic diverticulosis without evidence of diverticulitis. ? Redemonstrated are multiple findings, which are unchanged as compared ?? to the prior CT of 07/24/2023. This includes hepatomegaly, splenomegaly, ?? as detailed above. ? Fleischner guidelines were followed. ? Electronically signed by: ??Lokesh Colón MD ??02/07/2024 10:12 PM EST ?? RP ? Dictated By: ?Lokesh Colón MD ? Signed By: ?<Electronically signed by Lokesh Colón MD in OV> ?02/07/242211 ? DD/ 10 ? TD/TT: 02/07/241910 ? Freight Elevator Erector: HB ? Procedure Note Gerson Carrion - 02/07/[address] [address] [address] Scan Report Signed Patient: Allyson Salmeron#: [id number] 703 : 2Acct:[id number] Age/Sex: 63 / FADM Date: 02/07/24 Loc: HO.ED Attending Dr: Ordering Physician: Fara Malhotra Date of Service: 02/07/24 Procedure(s): CT abdomen pelvis wo IV con Accession Number(s): [id number] cc: Fara Malhotra; [facility] EXAMINATION: CT ABDOMEN AND PELVIS WITHOUT CONTRAST CLINICAL INFORMATION: Pain, question new ascites COMPARISON: CT abdomen 07/24/2023 TECHNIQUE: Multidetector volumetric imaging was performed from the superior aspect of the liver through the pubic symphysis. Sagittal and coronal reformatted images were obtained on the technologist's workstation. This CT examination was performed using dose optimization techniques as appropriate, variously including the following: *Automated exposure control *Adjustment of mA and/or kV according to patient size (this includes techniques or standardized protocols for targeted exams where dose is matched to indication/reason for exam; i.e. extremities or head) *Use of iterative reconstruction technique DLP: 610 mGy-cm FINDINGS: LUNG BASES: The visualized lung bases are unremarkable. LIVER, GALLBLADDER, AND BILIARY TREE: Hepatomegaly. Right lobe measures 20.3 cm craniocaudal. The liver contour is slightly nodular. Stable small calcification. The liver and spleen attenuation appears similar. No focal hepatic lesion or biliary ductal dilatation is present. Status postcholecystectomy.. PANCREAS: Unremarkable. SPLEEN: Mild splenomegaly measuring 13.2 cm. ADRENAL GLANDS: Unremarkable. KIDNEYS AND URETERS: The kidneys are normal in size, shape, and attenuation. Similar mild fullness of the right renal pelvis. No ureteral calculi seen. BLADDER: Unremarkable. GASTROINTESTINAL TRACT: Stomach is nondistended. No dilated small bowel loops. Diverticuli are scattered throughout the large colon. No findings to suggest diverticulitis are identified. Normal appendix. No significant ascites seen.. No free air. ABDOMINAL WALL: Redemonstrated is an umbilical hernia with diastasis of the rectus abdominis muscles. An unobstructed loop of small bowel protrudes into this. 2 small supraumbilical ventral hernias containing fat are redemonstrated. No inguinal hernia seen. LYMPH NODES: No pathologically enlarged lymph nodes are seen. VASCULAR: No aneurysmal dilatation of the aorta. Scattered atherosclerotic vascular calcification. PELVIC VISCERA: No suspicious findings. Small calcification redemonstrated within the uterus. OSSEOUS STRUCTURES: Redemonstrated posterior spinal fusion at L4-5. Vertebroplasty cement in L2 vertebral body. Depression of the superior endplate of T8 vertebral body, stable from previous. Bilateral hip joint space narrowing. Symphysis pubis degeneration. CT/CT abdomen pelvis wo IV con IMPRESSION: A cause for the patient's pain has not been determined. No significant ascites is seen. Colonic diverticulosis without evidence of diverticulitis. Redemonstrated are multiple findings, which are unchanged as compared to the prior CT of 07/24/2023. This includes hepatomegaly, splenomegaly, as detailed above. Fleischner guidelines were followed. Electronically signed by: Lokesh Colón MD 02/07/2024 10:12 PM EST Dictated By: Lokesh Colón MD Signed By: <Electronically signed by Lokesh Colón MD in OV> 02/07/242211 DD/ 10 TD/TT: 02/07/241910 Freight Elevator Erector: [facility] External Provider IMG CT PROCEDURES Edited Result - Final * (ABNORMAL) Urinalysis, Complete, with Reflex to Culture (02/07/2024 6:14 PM EST) Color Urine Dark Yellow [facility] Appearance Urine Cloudy [facility] PH 5.5 5.0 - 9.0 [facility] Glucose Urine UA Negative Negative mg/dL [facility] Urine Blood Negative Negative [facility] Specific [place] - Urine 1.015 1.005 - 1.025 [facility] Urine Protein 30 (1+)(A) Neg-Trace mg/dL [facility] Urine Ketones Negative Negative mg/dL [facility] Nitrite Urine Negative Negative [facility] Leukocyte Esterase Urine Large (3+)(A) Negative [facility] RBC Urine 0-2 0 - 2 /HPF [facility] Urine WBC 6-10 0 - 5 /HPF [facility] Urine Squamous Epithelial Cell 3-5 0 - 2 /HPF [facility] Urine Bacteria None Seen None Seen [facility] Hyaline Casts, Urine 3-5 0 - 2 /LPF [facility] 02/07/2024 6:14 PM EST 02/07/2024 6:20 PM EST Narrative [facility] - 02/07/2024 6:44 PM EST [id number], Clean Catch Generic External Data Provider LAB URINE ORDERAB LES Final Result Performing Organization Address [facility] Co de Phone Number [facility] [address] [place] [address] [phone] * Culture, Urine, Routine (02/07/2024 12:00 AM EST) Urine Urine specimen obtained by clean catch procedure / Unknown 02/07/2024 02/07/2024 Comment:[facility] Narrative [facility] - 02/09/2024 10:26 AM EST Urine Culture Report Result Urine Culture < 10,000 cfu/ml Specimen Source: Urine clean catch Generic External Data Provider LAB MICROBIOLOGY - GENERAL ORDERABLES Final Result Performing Organization Address [facility] de Phone Number [facility] [address] [place] [phone] * BI Mammogram Screening Tomosynthesis Bilateral (09/01/2023 8:16 AM EDT) Anatomical Region Laterality Modality Breast Bilateral Mammography 09/01/2023 8:16 AM EDT Narrative 09/26/2023 4:37 PM EDT ? [facility] ? [address] ?[place] [address] ? Mammography Report ? Signed ? Patient: Salmeron,Sharri ?MR#: [id number] ?? [id number] ? : 1960 ?Acct:[id number] ? Age/Sex: 63 / F ?ADM Date: 05/31/24 ? Loc: HO.MAMMO ? Attending Dr: Ashanti August CANDY POLISHER ? Ordering Physician: Ashanti August CANDY POLISHER ?Results: 1Nega ?? tive ? Date of Service: 09/01/23 ?Follow Up: 1 Year From Orig ?? inal Mammogram ? Procedure(s): MM tomosynthesis screening BI ?? Accession Number(s): [id number] ? cc: Ashanti August CANDY POLISHER ? EXAMINATION: ?? MM SCREENING DIGITAL BREAST TOMOSYNTHESIS, BILATERAL ? CLINICAL INFORMATION: ? Screening. Asymptomatic. ? COMPARISON: ?? Mammography: This study is compared with prior exams dating back to ?? 2019. ? TECHNIQUE: ?? Digital breast tomosynthesis is performed in both the craniocaudal and ?? mediolateral oblique views along with computer-aided detection (CAD). ?? Synthesized 2D images are generated from the tomosynthesis. ? FINDINGS: ?? There are scattered areas of fibroglandular density (ACR BI-RADS breast ?? composition Category b). ? There are no significant masses, abnormal calcifications, or other ?? abnormalities. ? MM/MM tomosynthesis screening BI ?? IMPRESSION: ?? No mammographic evidence of malignancy. ? ASSESSMENT: ? BI-RADS BI-RADS 1 - Negative ? RECOMMENDATION: ?? Routine annual mammography screening. ? 1 year F/U ? This examination should not preclude the clinical evaluation of a ?? suspicious palpable abnormality. ? This patient's information was entered into a reminder system with a ?? target due date for their next mammogram. ? Dictated By: ?Jihan Ritchie MD ? Signed By: ?<Electronically signed by Jihan Ritchie MD in OV> ? 09/26/23 1634 ? DD/ 5 ? TD/TT: ? Freight Elevator Erector: ? Procedure Note Donfelixinterpreter, Image - 09/26/2023 [place] [facility] [address] [place] [address] Mammography Report Signed Patient: Allyson Salmeron#: [id number] : 2Acct:[id number] Age/Sex: 63 / FADM Date: 09/01/23 Loc: [facility] Attending Dr: Ashanti August CANDY POLISHER Ordering Physician: Ashanti August FNPResults: 1Nega tive Date of Service: 09/01/23Follow Up: 1 Year From Orig inal Mammogram Procedure(s): MM tomosynthesis screening BI Accession Number(s): [id number] cc: Ashanti August CANDY POLISHER EXAMINATION: MM SCREENING DIGITAL BREAST TOMOSYNTHESIS, BILATERAL CLINICAL INFORMATION: Screening. Asymptomatic. COMPARISON: Mammography: This study is compared with prior exams dating back to 2019. TECHNIQUE: Digital breast tomosynthesis is performed in both the craniocaudal and mediolateral oblique views along with computer-aided detection (CAD). Synthesized 2D images are generated from the tomosynthesis. FINDINGS: There are scattered areas of fibroglandular density (ACR BI-RADS breast composition Category b). There are no significant masses, abnormal calcifications, or other abnormalities. MM/MM tomosynthesis screening BI IMPRESSION: No mammographic evidence of malignancy. ASSESSMENT: BI-RADS BI-RADS 1 - Negative RECOMMENDATION: Routine annual mammography screening. 1 year F/U This examination should not preclude the clinical evaluation of a suspicious palpable abnormality. This patient's information was entered into a reminder system with a target due date for their next mammogram. Dictated By: Jihan Ritchie MD Signed By: <Electronically signed by Jihan Ritchie MD in OV> 09/26/23 1634 DD/ 0816 TD/TT: Freight Elevator Erector: [facility] IMG BI PROCEDURES Final Resul t * (ABNORMAL) Lipid Panel, Standard (05/08/2023 11:13 AM EST) Triglycerides 274(H) <150 mg/dL [facility] Comment:Desirable Triglyceri de: less than 150 mg/dLBorderline High Triglyceride 150-199 mg/dLHigh Triglyceride: 200-499 mg/dLVery High Triglyceride: greater than or equal to 5OO mg/dL Cholesterol 230(H) <200 mg/dL [facility] Comment:Desirable Cholestero l: less than 200 mg/dLBorderline High Cholesterol: 200-239 mg/dLHigh Cholesterol: greater than 239 mg/dL LDL Cholesterol Calculated 130(H) <100 mg/dL [facility] Comment:Desirable LDL: less than 100 mg/dLNear Optimal/Above Optimal LDL: 110- 129 mg/dLBorderline High LDL: 130-159 mg/dLHigh LDL: 160-189 mg/dLVery High LDL: greater than or equal to 190 mg/dL HDL Cholesterol 46 >40 mg/dL [facility] Comment:Desirable HDL: great er than 40 mg/dL Note: This HDL assay may give artificially low results in patients with liver disease. Blood Venous blood specimen / Unknown 05/08/2023 11:13 AM EST 05/08/2023 1:10 PM EST [facility] LAB BLOOD ORDERABLES Final Re sult [facility] [address] [place] [address] [phone] * HEPATITIS C AB W/REFL TO HCV RNA, QN, PCR (09/08/2021 9:52 AM EDT) HEPATITIS C ANTIBODY NON-REACT [place] NON-REACT [place] [facility] INDEX 0.04 <1.00 [facility] Comment: ?? HCV antibody was non-reactive. There is no laboratory ?? evidence of HCV infection. ?? In most cases, no further action is required. However, if recent HCV exposure is suspected, a test for HCV RNA (test code 48993) is suggested. ?? For additional information please refer to http://ETARGET.Urban Gentleman/faq/HMI19f7 (This link is being provided for informational/ educational purposes only.) ?? 09/08/2021 9:52 AM EDT us Micaela Hernandez NP HISTORICAL/NON ORDERABLE LABS F inal Result Performing Organization Address [facility] de Phone Number [facility] [address] [place] [address], * HIV 1/2 ANTIGEN/ANTIBODY,FOURTH GENERATION W/RFL (09/08/2021 9:52 AM EDT) HIV-1/2 ANTIGEN AND ANTIBODIES, 4TH GENERATION W/ REFLEX NON-REACT [place] NON-REACT CLINTON [facility] Comment: HIV-1 antigen and HIV-1/HIV-2 antibodies were not detected. There is no laboratory evidence of HIV infection. ?? PLEASE NOTE: This information has been disclosed to you from records whose confidentiality may be protected by state law. ??If your state requires such protection, then the state law prohibits you from making any further disclosure of the information without the specific written consent of the person to whom it pertains, or as otherwise permitted by law. A general authorization for the release of medical or other information is NOT sufficient for this purpose. ? For additional information please refer to http://education.Urban Gentleman/faq/OIB876 (This link is being provided for informational/ educational purposes only.) ? The performance of this assay has not been clinically validated in patients less than 2 years old. ?? 09/08/2021 9:52 AM EDT us Micaela Hernandez NP LAB BLOOD ORDERABLES Final Resu lt Performing Organization Address [facility] Co de Phone Number [facility] [address] [place] [address], [place] * Hm Colonoscopy (07/30/2019) Colonoscopy Normal Normal Narrative Marta Adam - 07/30/2019 Repeat in 3 years us Historical Provider MD HEALTH MAINTENANCE Final Result * HPV mRNA E6/E7 (05/16/2019 10:37 AM EST) HPV mRNA E6/E7 Not Detected NOT DETECTED [facility] Comment: This test was performed using the APTIMA(R) HPV Assay ([employer] This assay detects E6/E7 viral messenger RNA (mRNA) from 14 high-risk HPV types (16,18,31,33,35,39,45,51, 52,56,58,59,66,68). For additional information please refer to: http://education.Urban Gentleman/faq/SLD840a7 (This link is being provided for informational/ educational purposes only.) The analytical performance characteristics of this assay have been determined by [employer] [place], [place]. The modifications have not been cleared or approved by the FDA. This assay has been validated pursuant to the CLIA regulations and is used for clinical purposes. Test Performed by [facility], [employer] [facility], [address] [place] [address] Bird Barber M.D., Ph.D., Director of Laboratories , CLIA [id number] Please note: ??Effective 12/14/2015, HPV testing will be performed using [employer]'s APTIMA test which targets mRNA. Detecting mRNA instead of DNA, as in older methods, offers significant improvements in specificity. 05/16/2019 10:3 7 AM EST Lexi Thomson CNM HISTORICAL/NON ORDERABLE LABS Final Result [facility] [address] [place] [address], from Last 3 Months or Most Recently Relevant to Health Maintenance Insurance [facility] Care Teams Robotics Testing Technician Relationship Specialty Start Date End Date Ashanti August FNP [address] [place] [address] PCP - General Family Medicine 11/24/21 Jeff Villarreal FNP [address] [place] [address] Nurse Practitioner Family Medicine 02/20/23
--- OUTSIDE RECORDS SUMMARY | 2024-04-29 18:41 | XMS_ITS | Encounter Summary ---
Author Organization [employer] Address [address] [place] [address] 7 [place] [address] Care Team Providers Care Medical Economics Consultant Name Role Phone Ashanti August [facility] Primary Care Provider [phone] Jeff Villarreal [facility] Unavailable Unavailable Encounter Details Date Type Department Care Team (Late st Contact Info) Description 05/24/2022 Orders Only [facility] MEDICINE [address] [place], [place] [phone] Isabel Escalante LPN Social History Tobacco Use [...] Description 05/16/2024 9:30 AM EST Procedure Visit [facility]S [address] [place], [place] [phone] Lexi Thomson CNM [address] [place], [place] [phone] documented as of this encounter Visit Diagnoses Not on filedocumented in this encounter Additional Health Concerns Assessment Noted Time PHQ-9 Depression Total Score: 13 023 2:44 PM EST documented as of this encounter Care Teams Medical Economics Consultant Relationship Specialty Start Date End Date Ashanti August FNP [address] [place] [address] PCP - General Family Medicine 11/24/21 Jeff Villarreal FNP [address] [place] [address] Nurse Practitioner Family Medicine 02/20/23 documented as of this encounter
--- OUTSIDE RECORDS SUMMARY | 2024-04-29 18:41 | XMS_ITS | Clinical Summary ---
[facility] Organization [facility] Address [address] [place] [address] Care Team Providers Care Application Development Director Name Role Phone Mata Ashanti Primary Care Provider Surgical History Surgery Date Site/Laterality Comments TOTAL KNEE ARTHROPLASTY Bilateral PROCEDURE: WI ARTHRP KNE CONDYLE&PLATU MEDIAL&LAT COMPARTMENTS BLADDER SURGERY PROCEDURE: HISTORICAL BLADDER SURGERY OTHER SURGICAL HISTORY 09/21/2021 PROCEDURE: WI PATRICIO FACETECTOMY & FORAMOTOMY 1 VRT SGM LUMBAR; COMMENT: L4-5 decompression, resection of left synovial cyst, placement of Coflex device, Dr. Trinidad CHOLECYSTECTOMY PROCEDURE: HISTORICAL CHOLECYSTECTOMY TUBAL LIGATION PROCEDURE: HISTORICAL TUBAL LIGATION OTHER SURGICAL HISTORY 01/24/2022 PROCEDURE: WI ARTHRODESIS POSTERIOR INTERBODY 1 NTRSPC LUMBAR; COMMENT: Removal of Coflex device L4-5, L4-5 resection of bilateral synovial cysts and fusion, Dr. Trinidad OTHER SURGICAL HISTORY 02/20/2023 PROCEDURE: WI PERQ VERT AGMNTJ CAVITY CRTJ UNI/BI CANNULJ LMBR; COMMENT: L2 kyphoplasty, Dr. Trinidad Medical History Medical History Date Comments Bronchitis DX:Bronchitis Diabetes mellitus type 2, co ntrolled, with complications (CMS/HCC) DX:Diabetes mellitus type 2, controlled, with complications ([facility]) Fibromyalgia DX:Fibromyalgia Hx of neck surgery DX:Hx [...] Documents on File Type Date Recorded Patient Voice Intercept Technician Expl anation Health Care Decision (hx) 10/02/2021 AD EMERY DIRECTIVE Health Care Decision (hx) 10/02/2021 AD EMERY DIRECTIVE Health Care Decision (hx) 10/02/2021 AD EMERY DIRECTIVE Health Care Decision (hx) 10/02/2021 AD EMERY DIRECTIVE Health Care Decision (hx) 10/02/2021 AD EMERY DIRECTIVE Health Care Decision (hx) 10/02/2021 AD EMERY DIRECTIVE Care Teams Application Development Director Relationship Specialty Start Date End Date [facility] [address] [place] [phone] PCP - General 10/06/23
--- OUTSIDE RECORDS SUMMARY | 2024-04-29 18:41 | XMS_ITS | Encounter Summary ---
Author Organization [employer] Address [address] [place] [address] 7 [place] [address] Care Team Providers Care Contact Center Agent Name Role Phone [facility] Primary Care Provider [phone] eJff Villarreal [facility] Unavailable Unavailable Reason for Visit * Reason Comments Med Refill Encounter Details Date Type Department Care Team ([facility] st Contact Info) Description 03/29/2024 Refill [facility]INE [address] [place] [address] [facility] [address] [place], [place] [phone] Primary hypertension Social History Tobacco Use Types [...] Description 05/16/2024 9:30 AM EST Procedure Visit [facility] MED & PEDS [address] [place] [address] Lexi Thomson CNM [address] [place] [address] documented as of this encounter Visit Diagnoses Diagnosis Primary hypertension Unspecified essential hypertension documented in this encounter Additional Health Concerns Assessment Noted Time PHQ-9 Depression Total Score: 0 12/20/19 24 10:36 AM EDT documented as of this encounter Care Teams Contact Center Agent Relationship Specialty Start Date End Date Ashanti August FNP [address] [place] [address] PCP - General Family Medicine 11/24/21 Jeff Villarreal FNP [address] [place] [address] Nurse Practitioner Family Medicine 02/20/23 documented as of this encounter
--- OUTSIDE RECORDS SUMMARY | 2024-04-29 18:41 | XMS_ITS | Encounter Summary ---
Author Organization [employer] Address [address] [place] [address] [address] [place] [address] Care Team Providers Care Liquid Waste Treatment Plant Operator Name Role Phone [facility] Primary Care Provider [phone] Jeff Villarreal [facility] Unavailable Unavailable Reason for Visit * Reason Comments Pre-visit Planning SDOH screening negat rufus and tobacco screening negative Encounter Details Date Type Department Care Team (Late st Contact Info) Description 04/12/2024 Patient Outreach [facility] MEDICINE [address] [place] [address] [facility] [address] [place] [address] Pre-visit Planning (SDOH screening negative and tobacco screening negative) Social History Tobacco Use Types Packs/Day Years [...] Recorded Patient Health Questionnaire-2 Score 0 12/20/2023 Internet Access Answer Date Recorded Internet Access Q1 Yes 04/12/2024 Internet Access Q2 Not on file 04/12/2024 Comments Unknown Sex and Gender Information Value Date Recorded Sex Assigned at Female 01/31/2022 10:22 AM EDT Legal Sex Female 10:22 AM EDT Gender Identity Female 01/31/2022 10:22 AM EDT Sexual Orientation Choose not to disclose 2021 10:22 AM EDT documented as of this encounter Progress Notes * [facility] - 04/12/2024 11:25 AM EST CC [facility] placed successful outbound call to patient for pre-visit planning. Patient name and confirmed. Patient confirms appointment date and time, and has transportation arrangements. Biggest concern for appointment at this time is none Appropriate screenings completed in anticipation of appointment. documented in this encounter Plan of Treatment Upcoming Encounters Date Type Department Care Team ([facility] st Contact Info) Description 05/16/2024 9:30 AM EST Procedure Visit [facility] MED & [facility]EDS [address] [place], [place] [phone] Lexi Thomson CNM [address] [facility] [place], [place] [phone] documented as of this encounter Visit Diagnoses Not on filedocumented in this encounter Additional Health Concerns Assessment Noted Time PHQ-9 Depression Total Score: 0 12/20/19 24 10:36 AM EDT documented as of this encounter Care Teams Liquid Waste Treatment Plant Operator Relationship Specialty Start Date End Date Ashanti August FNP [address] [place] [address] PCP - General Family Medicine 11/24/21 Jeff Villarreal FNP [address] [place] [address] Nurse Practitioner Family Medicine 02/20/23 documented as of this encounter
--- OUTSIDE RECORDS SUMMARY | 2024-04-29 18:41 | XMS_ITS | Encounter Summary ---
Author Organization [employer] Address [address] [place] [address] 7 [place] [address] Care Team Providers Care Scale Expert Name Role Phone Ashanti August [employer] Primary Care Provider [phone] Jeff Villarreal Unavailable Unavailable Reason for Visit * Reason Comments Med Refill Encounter Details Date Type Department Care Team (Late st Contact Info) Description 07/30/2023 Refill [facility] MEDICINE [address] [place] [address] Jeff Villarreal FNP Depression, unspecified depression type [...] Procedure Visit [facility] & PEDS [address] [place] [address] Lexi Thomson CNM [address] [place] [address] documented as of this encounter Visit Diagnoses Diagnosis Depression, unspecified depression type documented in this encounter Additional Health Concerns Assessment Noted Time PHQ-9 Depression Total Score: 9 07/05/19 24 4:20 PM EDT documented as of this encounter Care Teams Scale Expert Relationship Specialty Start Date End Date Ashanti August FNP [address] [place] [address] PCP - General Family Medicine 11/24/21 Jeff Villarreal FNP [address] [place] [address] Nurse Practitioner Family Medicine 02/20/23 documented as of this encounter
--- OUTSIDE RECORDS SUMMARY | 2024-04-29 18:41 | XMS_ITS | Encounter Summary ---
Author Organization [employer] Address [address] [place] [address] [address] [place] [address] Care Team Providers Care [employer] Assistant Manager Name Role Phone [facility] Primary Care Provider [phone] Jeff Villarreal [facility] Unavailable Unavailable Reason for Visit * Reason Comments Med Refill Encounter Details Date Type Department Care Team ([facility] st Contact Info) Description 03/20/2024 Refill [facility] [address] [place] [address] [facility] [address] [place], [place] [phone] Primary hypertension Social History Tobacco Use Types [...] 9:30 AM EST Procedure Visit [facility] MED & PEDS [address] [place] [address] Lexi Thomson CNM [address] [place] [address] documented as of this encounter Visit Diagnoses Diagnosis Primary hypertension Unspecified essential hypertension documented in this encounter Additional Health Concerns Assessment Noted Time PHQ-9 Depression Total Score: 0 12/20/19 24 10:36 AM EDT documented as of this encounter Care Teams [employer] Assistant Manager Relationship Specialty Start Date End Date Ashanti August FNP [address] [place] [address] PCP - General Family Medicine 11/24/21 Jeff Villarreal FNP [address] [place] [address] Nurse Practitioner Family Medicine 02/20/23 documented as of this encounter
--- OUTSIDE RECORDS SUMMARY | 2024-04-29 18:41 | XMS_ITS | Clinical Summary ---
Author Organization [facility] Address [address] [place] [address] Care Team Providers Care Philosophy Lecturer Name Role Phone Pcp, No Primary Care [...] (11/24/2021): Added automatically from request for surgery [id number] Ischemic bowel disease 11/24/2021 Social History Tobacco [...] Nonreactive Nonreactive S/CO 11/24/2021 11:21 AM EDT [facility] Hepatitis B Core Antibody IgM Nonreactive Nonreactive 11/24/2021 11:21 AM EDT [facility] Hepatitis B Surface Ag Screen Nonreactive Nonreactive 11/24/2021 11:21 AM EDT [facility] Hepatitis C Antibody 0.54 0.00 - 0.79 S/CO ratio 11/24/2021 11:21 AM EDT [employer] Hepatitis C Antibody Interpretation Nonreactive Nonreactive 11/24/2021 11:21 AM EDT [facility] Hepatitis Interpretation: Results inconsistent with acute Hepatitis A, B or C Virus infection. 11/24/2021 11:21 AM EDT [facility] Blood specimen (specimen) Serum specimen / Unknown 11/24/2021 6:13 AM EDT 11/24/2021 6:40 AM EDT Mary Grace Huerta RECRUITING ASSISTANT LAB BLOOD ORDERABLES [facility] [address] [place] [address] from Last 3 Months or Most Recently Relevant to Health Maintenance Advance Directives * Full Code (Latest Code Status on File) Date Activated Date Inactivated Comments 11/24/2021 3:35 AM 12/15/2021 3:20 PM Care Teams Philosophy Lecturer Relationship Specialty Start Date End Date Pcp, No PCP - General General Medicine 11/28/21
--- OUTSIDE RECORDS SUMMARY | 2024-04-29 18:41 | XMS_ITS | Encounter Summary ---
Author Organization [employer] Address [address] [place] [address] 7 [place] [address] Care Team Providers Care Line Rider Name Role Phone [facility] Primary Care Provider [phone] Jeff Villarreal [facility] Unavailable Unavailable Reason for Visit * Reason Onset Date Comments Requesting a call back 04/25/2024 Encounter Details Date Type Department Care Team (Late st Contact Info) Description 04/25/2024 Telephone [facility] MEDICINE [address] [place], [place] [phone] [facility] 230 [place] [address] Requesting a call back Social History Tobacco Use Types Packs/Day Years [...] encounter Miscellaneous Notes * Telephone Encounter - Brynn Quiñonez RN - 04/25/2024 10:40 AM EST TC placed to patient [phone] to clarify below message. Patient informed she was referred to a neurologist on 12/22/23 for witnessed seizure-like activity and memory impairment and also a neurosurgeon on 03/06/24 for her cervical stenosis of spinal cord. Patient verbalized understanding and inquiring on status of neurosurgery referral. Patient advised RN will send message to referral team to inquire on status. Patient verbalized understanding. Patient to f/u PRN. * Telephone Encounter - Radha Jermaine - 04/25/2024 9:55 AM EST Tc from pt stated she contact Dr Lobo (Neurosurgeon office) they advice pt they are not a neurosurgeon office pt is confused and is requesting a call back to clarify. Please contact pt at [phone] documented in this encounter Plan of Treatment Upcoming Encounters Date Type Department Care Team (Late st Contact Info) Description 05/16/2024 9:30 AM EST Procedure Visit [facility] [address] [place] [address] Lexi Thomson CNM 230 [place] [address] documented as of this encounter Visit Diagnoses Not on filedocumented in this encounter Additional Health Concerns Assessment Noted Time PHQ-9 Depression Total Score: 0 04/24/19 25 10:11 AM EST documented as of this encounter Care Teams Line Rider Relationship Specialty Start Date End Date Ashanti August FNP [address] [place] [address] PCP - General Family Medicine 11/24/21 Jeff Villarreal FNP [address] [place] [address] Nurse Practitioner Family Medicine 02/20/23 documented as of this encounter
--- OUTSIDE RECORDS SUMMARY | 2024-04-29 18:41 | XMS_ITS | Encounter Summary ---
Author Organization [employer] Address [address] [place] [address] 7 [place] [address] Care Team Providers Care Box Printing Machine Operator Name Role Phone Ashanti August [facility] Primary Care Provider [phone] Jeff Villarreal Unavailable Unavailable Reason for Visit * Reason Comments Med Refill Encounter Details Date Type Department Care Team ([facility] st Contact Info) Description 04/28/2023 Refill [facility] MEDICINE [address] [place] [address] Jeff Villarreal FNP Social History Tobacco Use Types Packs/Day Years Used Date Smoking Tobacco: Former Cigarettes Passive Smoke Exposure: Past Smokeless Tobacco: Never Alcohol Use Standard Drinks/Week Comments Never 0 (1 standard drink = 0.6 oz pur e alcohol) Depression Answer Date Recorded Patient Health Questionnaire-9 Score 7 04/13/2023 Patient Health Questionnaire-9 Score 7 04/13/2023 Last PHQ-9: Questionnaire Data Not on file 0 04/13/2023 Housing Stability Answer Date Recorded What is [...] Answer Date Recorded Patient Health Questionnaire-2 Score 1 04/13/2023 Comments Unknown Sex and Gender Information Value [...] AM EST Procedure Visit [facility] [address] [place] [address] Lexi Thomson CNM 230 [place] [address] documented as of this encounter Visit Diagnoses Not on filedocumented in this encounter Additional Health Concerns Assessment Noted Time PHQ-9 Depression Total Score: 7 04/13/19 24 8:57 AM EST documented as of this encounter Care Teams Box Printing Machine Operator Relationship Specialty Start Date End Date Ashanti August FNP [address] [place] [address] PCP - General Family Medicine 11/24/21 Jeff Villarreal FNP [address] [place] [address] Nurse Practitioner Family Medicine 02/20/23 documented as of this encounter
--- OUTSIDE RECORDS SUMMARY | 2024-04-29 18:41 | XMS_ITS | Encounter Summary ---
Author Organization [employer] Address [address] [place] [address] 7 [place] [address] Care Team Providers Care Loan Supervisor Name Role Phone [facility] Primary Care Provider [phone] Jeff Villarreal [facility] Unavailable Unavailable Reason for Visit * Reason Onset Date Comments ER Follow-up 04/25/2023 Encounter Details Date Type Department Care Team (Late st Contact Info) Description 04/25/2023 Telephone [facility] MEDICINE [address] [place], [place] [phone] [facility] [address] [place], [place] [phone] ER Follow-up Social History Tobacco Use Types Packs/Day [...] encounter Miscellaneous Notes * Telephone Encounter - Kenisha Up RN - 04/25/2023 9:39 AM EST Pt. Admitted to [facility] 04/19-04/21 for acute hyperkalemia, UTI and metabolic encephalopathy. Please contact for HDF, thank you! * Telephone Encounter - Kem Carrillo - 04/25/2023 9:24 AM EST Patient calling to report ED visit on : Date: 04/19/23 Hospital: [facility] Seen for: UTI Patient advised will forward to team nurse for follow up documented in this encounter Plan of Treatment Upcoming Encounters Date Type Department Care Team (Late st Contact Info) Description 05/16/2024 9:30 AM EST Procedure Visit [facility] MED & PEDS [address] [place] [address] Lexi Thomson, MICHELETM [address] [place] [address] documented as of this encounter Visit Diagnoses Not on filedocumented in this encounter Additional Health Concerns Assessment Noted Time PHQ-9 Depression Total Score: 7 04/13/19 8:57 AM EST documented as of this encounter Care Teams Loan Supervisor Relationship Specialty Start Date End Date Ashanti August FNP [address] [place] [address] PCP - General Family Medicine 11/24/21 Jeff Villarreal FNP [address] [place] [address] Nurse Practitioner Family Medicine 02/20/23 documented as of this encounter
--- OUTSIDE RECORDS SUMMARY | 2024-04-29 18:41 | XMS_ITS | Encounter Summary ---
Author Organization [employer] Address [address] [place] [address] 7 [place] [address] Care Team Providers Care Harvesting Contractor Name Role Phone [facility] Primary Care Provider [phone] Jeff Villarreal [facility] Unavailable Unavailable Reason for Visit * Reason Onset Date Comments Medication Question 04/02/2024 Encounter Details Date Type Department Care Team ([facility] st Contact Info) Description 04/02/2024 Telephone [facility] MEDICINE [address] [place] [address] [facility] [address] [place] [address] Medication Question Social History Tobacco Use Types Packs/Day Years [...] Telephone Encounter - Brynn Quiñonez RN - 04/04/2024 9:08 AM EST TC returned to physician (Ethan Haywood) in regards to below message. No answer, RN left requesting CB to red team nurses. Physician to f/u PRN. * Telephone Encounter - Chato Talavera - 04/02/2024 12:36 PM EST Tc from physician requesting to speak with pt PCP in regards to Continuous Glucose Car Body Inspector (FreeStyle Zeke 2 [place]) device Continuous Glucose Sensor (FreeStyle Zeke 2 Sensor) [facility] Has a few questions and concerns about these prescriptions. Please contact physician at :[phone] documented in this encounter Plan of Treatment Upcoming Encounters Date Type Department Care Team (Late st Contact Info) Description 05/16/2024 9:30 AM EST Procedure Visit [facility] & PEDS [address] [place] [address] Lexi Thomson CNM [address] [place] [address] documented as of this encounter Visit Diagnoses Not on filedocumented in this encounter Additional Health Concerns Assessment Noted Time PHQ-9 Depression Total Score: 0 12/20/19 10:36 AM EDT documented as of this encounter Care Teams Harvesting Contractor Relationship Specialty Start Date End Date Ashanti August FNP [address] [place] [address] PCP - General Family Medicine 11/24/21 Jeff Villarreal FNP [address] [place] [address] Nurse Practitioner Family Medicine 02/20/23 documented as of this encounter
--- OUTSIDE RECORDS SUMMARY | 2024-04-29 18:41 | XMS_ITS | Encounter Summary ---
Author Organization [employer] Address [address] [place] [address] 7t [place] [address] Care Team Providers Care Deburr Technician Name Role Phone Ashanti August [facility] Primary Care Provider [phone] Jeff Villarreal [facility] Unavailable Unavailable Encounter Details Date Type Department Care Team (Late st Contact Info) Description 02/16/2023 Abstract [facility] MEDICINE [address] [place] [address] Marta Adam Social History Tobacco Use Types Packs/Day Years [...] Description 05/16/2024 9:30 AM EST Procedure Visit [facility] MED & PEDS [address] [place], [place] [phone] Lexi Thomson CNM [address] [place] [address] documented as of this encounter Procedures Procedure Name Priority Date/Time Associated Diagnosis Comments COLONOSCOPY Routine 07/30/2019 documented in this encounter Results * Hm Colonoscopy (07/30/2019) Colonoscopy Normal Normal Narrative Marta Adam - 07/30/2019 Repeat in 3 years us Historical Provider HEALTH MAINTENANCE Final Result documented in this encounter Visit Diagnoses Not on filedocumented in this encounter Additional Health Concerns Assessment Noted Time PHQ-9 Depression Total Score: 14 023 9:52 AM EDT documented as of this encounter Care Teams Deburr Technician Relationship Specialty Start Date End Date Ashanti August FNP [address] [place] [address] PCP - General Family Medicine 11/24/21 Jeff Villarreal FNP [address] [place] [address] Nurse Practitioner Family Medicine 02/20/23 documented as of this encounter
--- OUTSIDE RECORDS SUMMARY | 2024-04-29 18:41 | XMS_ITS | Encounter Summary ---
Author Organization [employer] Address [address] [place] [address] 7t [place] [address] Care Team Providers Care Baking Assistant Name Role Phone Ashanti August [facility] Primary Care Provider [phone] Jeff Villarreal COMMUN[facility] MARKET[facility] COORDINATOR Unavailable Unavailable Encounter Details Date Type Department Care Team (Late st Contact Info) Description 03/29/2024 Telephone [facility] MEDICINE [address] [place] [address] Heriberto العراقي, KeithD Social History Tobacco Use Types Packs/Day Years [...] Description 05/16/2024 9:30 AM EST Procedure Visit [facility] PED[facility] [address] [place] [address] Lexi Thomson CNM [address] [place] [address] documented as of this encounter Visit Diagnoses Not on filedocumented in this encounter Additional Health Concerns Assessment Noted Time PHQ-9 Depression Total Score: 0 12/20/19 24 10:36 AM EDT documented as of this encounter Care Teams Baking Assistant Relationship Specialty Start Date End Date Ashanti August FNP [address] [place] [address] PCP - General Family Medicine 11/24/21 Jeff Villarreal FNP [address] [place] [address] Nurse Practitioner Family Medicine 02/20/23 documented as of this encounter
--- OUTSIDE RECORDS SUMMARY | 2024-04-29 18:41 | XMS_ITS | Encounter Summary ---
Author Organization [employer] Address [address] [place] [address] 7 [place] [address] Care Team Providers Care Project Executive Name Role Phone [facility] Primary Care Provider [phone] Jeff Villarreal [facility] Unavailable Unavailable Reason for Visit * Reason Onset Date Comments Durable Medical Equipment 06/23/2022 Encounter Details Date Type Department Care Team (Late st Contact Info) Description 06/23/[address] [facility] MEDICINE [address] [place], [place] [phone] [facility] 230 [place] [address] Durable Medical Equipment Social History Tobacco Use Types Packs/Day Years Used Date Smoking Tobacco: Former Cigarettes Alcohol Answer Date Recorded Frequency of Alcohol [...] encounter Miscellaneous Notes * Telephone Encounter - Yaneth Dominguez - 06/24/2022 10:35 AM EDT Scripts for shower chair and scooter generated for signature * Telephone Encounter - Ana Jiménez - 06/23/2022 11:29 AM EDT Tc from [facility]GL[facility] requesting a shower chair and a electrical scooter. Please contact at [phone] documented in this encounter Plan of Treatment Upcoming Encounters Date Type Department Care Team (Late st Contact Info) Description 05/16/2024 9:30 AM EST Procedure Visit [facility] MED & PEDS [address] [place] [address] Lexi Thomson CNM [address] [place] [address] documented as of this encounter Visit Diagnoses Not on filedocumented in this encounter Additional Health Concerns Assessment Noted Time PHQ-9 Depression Total Score: 13 023 2:44 PM EST documented as of this encounter Care Teams Project Executive Relationship Specialty Start Date End Date Ashanti August FNP [address] [place] [address] PCP - General Family Medicine 11/24/21 Jeff Villarreal FNP [address] [place] [address] Nurse Practitioner Family Medicine 02/20/23 documented as of this encounter
--- OUTSIDE RECORDS SUMMARY | 2024-04-29 18:41 | XMS_ITS | Encounter Summary ---
Author Organization [employer] Address [address] [place] [address] 7 [place] [address] Care Team Providers Care Manager Of Pmo Name Role Phone Mata Ashanti [facility] Primary Care Provider [phone] Jeff Villarreal Unavailable Unavailable Encounter Details Date Type Department Care Team (Late Contact Info) Description 03/24/2022 Orders Only [facility] [address] [place], [place] [phone] Isabel Escalante LPN Social History Tobacco Use Types Packs/Day Years Used Date Smoking Tobacco: Never Assessed Comments Unknown Sex and Gender Information Value [...] Description 05/16/2024 9:30 AM EST Procedure Visit [facility] MED & PEDS [address] [place], [place] [phone] Lexi Thomson CNM [address] [place] [address] documented as of this encounter Visit Diagnoses Not on filedocumented in this encounter Care Teams Manager Of Pmo Relationship Specialty Start Date End Date Ashanti August FNP [address] [place] [address] PCP - General Family Medicine 11/24/21 Jeff Villarreal FNP [address] [place] [address] Nurse Practitioner Family Medicine 02/20/23 documented as of this encounter
--- OUTSIDE RECORDS SUMMARY | 2024-04-29 18:41 | XMS_ITS | Encounter Summary ---
Author Organization [employer] Address [address] [place] [address] 7 [place] [address] Care Team Providers Care Financial Analyst Name Role Phone [facility] Primary Care Provider [phone] Jeff Villarreal [facility] Unavailable Unavailable Encounter Details Date Type Department Care Team (Late st Contact Info) Description 05/24/2023 Orders Only [facility] [address] [place] [address] [facility] [address] [place] [address] Social History Tobacco Use Types Packs/Day Years Used Date Smoking Tobacco: Former Cigarettes Passive Smoke Exposure: Past Smokeless Tobacco: Never Alcohol Use Standard Drinks/Week Comments Never 0 (1 standard drink = 0.6 oz pur e alcohol) Depression Answer Date Recorded Patient Health Questionnaire-9 Score 13 05/25/2023 Patient Health Questionnaire-9 Score 13 05/25/2023 Last PHQ-9: Questionnaire Data Not on file 0 05/25/2023 Housing Stability Answer Date Recorded What is [...] Answer Date Recorded Patient Health Questionnaire-2 Score 3 05/25/2023 Comments Unknown Sex and Gender Information Value [...] 9:30 AM EST Procedure Visit [facility] [address] [place] [address] Lexi Thomson, CNM [address] [place] [address] documented as of this encounter Procedures Procedure Name Priority Date/Time Associated Diagnosis Comments CT CERVICAL SPINE WO CONTRAST Routine 05/24/2023 1:[address] HEAD WO CONTRAST Routine 05/24/2023 1 :31 PM EST documented in this encounter Results * CT Cervical Spine w/o Contrast (05/24/2023 1:31 PM EST) Anatomical Region Laterality Modality Spine, C-spine Computed Tomogra phy 05/24/2023 1:31 PM EST Narrative 05/24/2023 2:51 PM EST ? [facility] ?[address] ?[place] [address] ? CT Scan Report ? Signed ? Patient: Salmeron,Sharri ?MR#: [id number] ?? 703 ? : 1960 ?Acct:[id number] ? Age/Sex: 62 / F ?ADM Date: 02/21/24 ? Loc: HO.ED ? Attending Dr: ? Ordering Physician: Tanmay Alvarado MD ?? Date of Service: 05/24/23 ?? Procedure(s): CT cervical spine wo IV con ?? Accession Number(s): [id number] ? cc: Tanmay Alvarado MD; Ashanti August ? EXAMINATION: ?? CT HEAD WITHOUT CONTRAST ? CLINICAL INFORMATION: ?? Head injury confusion ? COMPARISON: ?? CT head from 04/19/2023 ? TECHNIQUE: ?? Contiguous axial imaging was performed from the skull base to vertex ?? without intravenous administration of contrast. ? This CT examination was performed using dose optimization techniques as ?? appropriate, variously including the following: ? *Automated exposure control ? *Adjustment of mA and/or kV according to patient size (this includes ?? techniques or standardized protocols for targeted exams where dose is ?? matched to indication/reason for exam; i.e. extremities or head) ? *Use of iterative reconstruction technique ? DLP: ?? 912 mGy-cm ? FINDINGS: ?? There is no evidence of acute intracranial hemorrhage or territorial ?? infarction. No abnormal mass effect or midline shift is seen. Tillman to ?? white matter differentiation is well preserved. No extra-axial fluid ?? collections are identified. ? The ventricles are normal in size. There is no abnormal attenuation ?? within the brain parenchyma. The osseous structures and soft tissues ?? are normal. The mastoid air cells and visualized portions of the ?? paranasal sinuses are well aerated. Atherosclerotic calcifications are ?? noted. ? CT/CT cervical spine wo IV con ?? IMPRESSION: ?? No acute intracranial pathology. ? EXAMINATION: Noncontrast CT scan of the cervical spine. ? INDICATION: Head injury ? COMPARISON: None. ? TECHNIQUE: ??Helical, multidetector axial images were obtained from the ?? occiput to the upper thorax. Coronal and sagittal reformats of the ?? cervical spine were provided for interpretation. ? DLP: 912 mGy-cm ? FINDINGS: ?? No acute fractures or dislocations of the cervical spine are seen. ?? Anterior cervical fusion of C4-C5, grossly intact. Grade 1 ?? anterolisthesis of C7 on T1. Straightening of the normal cervical ?? curvature. Multilevel degenerative changes. Anatomic alignment and ?? positioning of the vertebral bodies and posterior elements is noted. ?? The atlantoaxial joint and craniovertebral articulations are normal ?? without evidence of subluxation. There is no prevertebral soft tissue ?? swelling. ? Visualized portions of the lungs are unremarkable. ? IMPRESSION: ?? 1. ??No acute visible fracture or dislocation. ?? 2. ??Anterior cervical fusion of C4-C5, grossly intact. ?? 3. ??Grade 1 anterolisthesis of C7 on T1. ?? 4. ??Straightening of the normal cervical curvature. ?? 5. ??Multilevel degenerative changes. ? Dictated By: ?Price Schilling MD ? Signed By: ?<Electronically signed by Price Schilling MD in OV> ? 05/24/23 1447 ? DD/ 1331 ? TD/TT: ? Hardware Technician: ? Procedure Note Gerson Carrion - 05/24/[address] [place] [address] [address] Scan Report Signed Patient: Allyson Salmeron#: [id number] 703 : 2Acct:[id number] Age/Sex: 62 / FADM Date: 05/24/23 Loc: HO.ED Attending Dr: Ordering Physician: Tanmay Alvarado MD Date of Service: 05/24/23 Procedure(s): CT cervical spine wo IV con Accession Number(s): [id number] cc: Tanmay Alvarado MD; Ashanti August HOUSE PAINTER EXAMINATION: CT HEAD WITHOUT CONTRAST CLINICAL INFORMATION: Head injury confusion COMPARISON: CT head from 04/19/2023 TECHNIQUE: Contiguous axial imaging was performed from the skull base to vertex without intravenous administration of contrast. This CT examination was performed using dose optimization techniques as appropriate, variously including the following: *Automated exposure control *Adjustment of mA and/or kV according to patient size (this includes techniques or standardized protocols for targeted exams where dose is matched to indication/reason for exam; i.e. extremities or head) *Use of iterative reconstruction technique DLP: 912 mGy-cm FINDINGS: There is no evidence of acute intracranial hemorrhage or territorial infarction. No abnormal mass effect or midline shift is seen. Tillman to white matter differentiation is well preserved. No extra-axial fluid collections are identified. The ventricles are normal in size. There is no abnormal attenuation within the brain parenchyma. The osseous structures and soft tissues are normal. The mastoid air cells and visualized portions of the paranasal sinuses are well aerated. Atherosclerotic calcifications are noted. CT/CT cervical spine wo IV con IMPRESSION: No acute intracranial pathology. EXAMINATION: Noncontrast CT scan of the cervical spine. INDICATION: Head injury COMPARISON: None. TECHNIQUE: Helical, multidetector axial images were obtained from the occiput to the upper thorax. Coronal and sagittal reformats of the cervical spine were provided for interpretation. DLP: 912 mGy-cm FINDINGS: No acute fractures or dislocations of the cervical spine are seen. Anterior cervical fusion of C4-C5, grossly intact. Grade 1 anterolisthesis of C7 on T1. Straightening of the normal cervical curvature. Multilevel degenerative changes. Anatomic alignment and positioning of the vertebral bodies and posterior elements is noted. The atlantoaxial joint and craniovertebral articulations are normal without evidence of subluxation. There is no prevertebral soft tissue swelling. Visualized portions of the lungs are unremarkable. IMPRESSION: 1. No acute visible fracture or dislocation. 2. Anterior cervical fusion of C4-C5, grossly intact. 3. Grade 1 anterolisthesis of C7 on T1. 4. Straightening of the normal cervical curvature. 5. Multilevel degenerative changes. Dictated By: Price Schilling MD Signed By: <Electronically signed by Price Schilling MD in OV> 05/24/23 1447 DD/ 1331 TD/TT: Hardware Technician: [facility] External Provider IM CT PROCEDURES Final Result * CT Head w/o Contrast (05/24/2023 1:31 PM EST) Anatomical Region Laterality Modality Head, Neck Computed Tomogra phy 05/24/2023 1:31 PM EST Narrative 05/24/2023 2:51 PM EST ? [facility] ?[address] ?[place] [address] ? CT Scan Report ? Signed ? Patient: Salmeron,Sharri ?MR#: [id number] ?? 703 ? : 1960 ?Acct:[id number] ? Age/Sex: 62 / F ?ADM Date: 05/24/23 ? Loc: HO.ED ? Attending Dr: ? Ordering Physician: Tanmay Alvarado MD ?? Date of Service: 05/24/23 ?? Procedure(s): CT head/brain wo IV con ?? Accession Number(s): [id number] ? cc: Tanmay Alvarado MD; Ashanti August ? EXAMINATION: ?? CT HEAD WITHOUT CONTRAST ? CLINICAL INFORMATION: ?? Head injury confusion ? COMPARISON: ?? CT head from 04/19/2023 ? TECHNIQUE: ?? Contiguous axial imaging was performed from the skull base to vertex ?? without intravenous administration of contrast. ? This CT examination was performed using dose optimization techniques as ?? appropriate, variously including the following: ? *Automated exposure control ? *Adjustment of mA and/or kV according to patient size (this includes ?? techniques or standardized protocols for targeted exams where dose is ?? matched to indication/reason for exam; i.e. extremities or head) ? *Use of iterative reconstruction technique ? DLP: ?? 912 mGy-cm ? FINDINGS: ?? There is no evidence of acute intracranial hemorrhage or territorial ?? infarction. No abnormal mass effect or midline shift is seen. Tillman to ?? white matter differentiation is well preserved. No extra-axial fluid ?? collections are identified. ? The ventricles are normal in size. There is no abnormal attenuation ?? within the brain parenchyma. The osseous structures and soft tissues ?? are normal. The mastoid air cells and visualized portions of the ?? paranasal sinuses are well aerated. Atherosclerotic calcifications are ?? noted. ? CT/CT head/brain wo IV con ?? IMPRESSION: ?? No acute intracranial pathology. ? EXAMINATION: Noncontrast CT scan of the cervical spine. ? INDICATION: Head injury ? COMPARISON: None. ? TECHNIQUE: ??Helical, multidetector axial images were obtained from the ?? occiput to the upper thorax. Coronal and sagittal reformats of the ?? cervical spine were provided for interpretation. ? DLP: 912 mGy-cm ? FINDINGS: ?? No acute fractures or dislocations of the cervical spine are seen. ?? Anterior cervical fusion of C4-C5, grossly intact. Grade 1 ?? anterolisthesis of C7 on T1. Straightening of the normal cervical ?? curvature. Multilevel degenerative changes. Anatomic alignment and ?? positioning of the vertebral bodies and posterior elements is noted. ?? The atlantoaxial joint and craniovertebral articulations are normal ?? without evidence of subluxation. There is no prevertebral soft tissue ?? swelling. ? Visualized portions of the lungs are unremarkable. ? IMPRESSION: ?? 1. ??No acute visible fracture or dislocation. ?? 2. ??Anterior cervical fusion of C4-C5, grossly intact. ?? 3. ??Grade 1 anterolisthesis of C7 on T1. ?? 4. ??Straightening of the normal cervical curvature. ?? 5. ??Multilevel degenerative changes. ? Dictated By: ?Price Schilling MD ? Signed By: ?<Electronically signed by Price Schilling MD in OV> ? 05/24/23 1447 ? DD/ 1331 ? TD/TT: ? Hardware Technician: ? Procedure Note Gerson Carrion - 05/24/[address] [address] [address] Scan Report Signed Patient: Allyson Salmeron#: [id number] 703 : 2Acct:[id number] Age/Sex: 62 / FADM Date: 05/24/23 Loc: HO.ED Attending Dr: Ordering Physician: Tanmay Alvarado MD Date of Service: 05/24/23 Procedure(s): CT head/brain wo IV con Accession Number(s): [id number] cc: Tanmay Alvarado MD; [facility] EXAMINATION: CT HEAD WITHOUT CONTRAST CLINICAL INFORMATION: Head injury confusion COMPARISON: CT head from 04/19/2023 TECHNIQUE: Contiguous axial imaging was performed from the skull base to vertex without intravenous administration of contrast. This CT examination was performed using dose optimization techniques as appropriate, variously including the following: *Automated exposure control *Adjustment of mA and/or kV according to patient size (this includes techniques or standardized protocols for targeted exams where dose is matched to indication/reason for exam; i.e. extremities or head) *Use of iterative reconstruction technique DLP: 912 mGy-cm FINDINGS: There is no evidence of acute intracranial hemorrhage or territorial infarction. No abnormal mass effect or midline shift is seen. Tillman to white matter differentiation is well preserved. No extra-axial fluid collections are identified. The ventricles are normal in size. There is no abnormal attenuation within the brain parenchyma. The osseous structures and soft tissues are normal. The mastoid air cells and visualized portions of the paranasal sinuses are well aerated. Atherosclerotic calcifications are noted. CT/CT head/brain wo IV con IMPRESSION: No acute intracranial pathology. EXAMINATION: Noncontrast CT scan of the cervical spine. INDICATION: Head injury COMPARISON: None. TECHNIQUE: Helical, multidetector axial images were obtained from the occiput to the upper thorax. Coronal and sagittal reformats of the cervical spine were provided for interpretation. DLP: 912 mGy-cm FINDINGS: No acute fractures or dislocations of the cervical spine are seen. Anterior cervical fusion of C4-C5, grossly intact. Grade 1 anterolisthesis of C7 on T1. Straightening of the normal cervical curvature. Multilevel degenerative changes. Anatomic alignment and positioning of the vertebral bodies and posterior elements is noted. The atlantoaxial joint and craniovertebral articulations are normal without evidence of subluxation. There is no prevertebral soft tissue swelling. Visualized portions of the lungs are unremarkable. IMPRESSION: 1. No acute visible fracture or dislocation. 2. Anterior cervical fusion of C4-C5, grossly intact. 3. Grade 1 anterolisthesis of C7 on T1. 4. Straightening of the normal cervical curvature. 5. Multilevel degenerative changes. Dictated By: Price Schilling MD Signed By: <Electronically signed by Price Schilling MD in OV> 05/24/23 1447 DD/ 1331 TD/TT: Hardware Technician: [facility] External Provider IMG CT PROCEDURES Final Result documented in this encounter Visit Diagnoses Not on filedocumented in this encounter Additional Health Concerns Assessment Noted Time PHQ-9 Depression Total Score: 7 04/13/19 8:57 AM EST documented as of this encounter Care Teams Financial Analyst Relationship Specialty Start Date End Date Ashanti August FNP [address] [place] [id number] PCP - General Family Medicine 11/24/21 Jeff Villarreal FNP [address] [place] [id number] Nurse Practitioner Family Medicine 02/20/23 documented as of this encounter
== END 2024-04-29 13:23 | disposition home or self-care (01) ==
LOC: HO.HOSX 13:22
PROVIDERS: PCP Registered Nurse; Referring Provider Registered Nurse; Visit Provider Physician Assistant
DX: M43.12 Spondylolisthesis, cervical region (principal)
CPT/HCPCS: 72050; 99202

== ENCOUNTER 2024-04-29 13:22 | Outpatient (AMB) | payer OTHER, SELFPAY ==
--- NOTE | 2024-04-29 13:31 | A.SPINEOV_ITS ---
Vital Signs 04/29/24 13:32 Height 5 ft 3 in Weight 162 lb BMI 28.7 Intake Visit Reasons: Neck pain Intake Note: Ms. Salmeron is here today c/o neck pain. Facility Planner Required: No Allergies oxycodone [Percocet] Allergy (Intermediate, Verified 04/29/24 13:32) Itching Vicodin Allergy (Intermediate, Uncoded 10/13/23 11:44) itching Physical Exam Vital Signs: BMI result Body Mass Index 28.7 Assessment & Plan Assessment & Plan (1) Spondylolisthesis, cervical region: Code(s): M43.12 - Spondylolisthesis, cervical region Category: Medical Plan Dear GABBY Pray, Thank you for referring Sharri to our office today. She is a pleasant 63-year-old female who comes in today with a chief complaint of neck pain with shooting pains into her bilateral upper extremities, right worse than left. When describing the shooting pain she runs her hand over the dorsal surface of her right forearm terminating near the right 4/5 digits. In addition to this she reports progressive numbness, tingling, and weakness for the past 1 year, alongside dexterity issues and difficulties with dropping objects out of her hands. She is unable to button buttons properly, or zip up her zipper on her own. The patient has a pertinent past medical history of previous ACDF at C4-5, C5-6. She reports that these were done at [facility]. She reports that after her previous neck surgeries her pain was relieved and she felt fantastic with no residual symptoms. Unfortunately about 1 year ago she began feeling severe neck pain and shooting pains into her bilateral upper extremities, alongside the associated numbness and weakness. Since then she has attempted a full course of physical therapy, has tried to utilize [id number] remedies such as Tylenol and pain creams/gels but is unable to tolerate NSAIDs due to her history of kidney disease. She is currently taking prescribed gabapentin an effort to help mitigate the pain. PMH: Fibromyalgia, obesity, COPD, congestive heart failure, fatty liver disease, kidney disease, hyperlipidemia, hypertension, diabetes, aortic valve stenosis, irritable bowel syndrome. Social hx: The patient does not smoke, reports no substance use. Medications: See [place] list. Allergies: Percocet, Vicodin. Physical exam: The patient has 4/5 strength with bilateral iliopsoas and deltoid/biceps testing. The rest of her strength is 5/5 intact. She ambulates well without a spastic gait. She reports hypoesthesia over the dorsal surface of her right forearm on examination. The remainder of her sensation is intact. Her reflexes are 3+ hyperactive bilaterally in the patella. They are 2+ normal elsewhere. She has 2 beats of clonus bilaterally. (-) 's bilaterally, (-) Babinski's, (-) bilateral straight leg raise. Imaging review: MRI of the cervical spine completed here at [facility] shows evidence of previous ACDF at C4-5, C5-6. There is moderate-severe right-sided foraminal stenosis at C3-4, and there is a grade 1 spondylolisthesis at C7-T1, causing severe effacement of the spinal cord at this level. No evidence of T2 signal change or myelomalacia. Impression: Sharri is a pleasant 63-year-old female who comes in today with a chief complaint of progressive neck pain, shooting pains into her bilateral upper extremities right worse than left, progressive numbness and weakness, and progressive issues with dexterity. On MRI imaging there appears to be a grade 1 spondylolisthesis at C7-T1. This is causing severe central canal stenosis and compression of the spinal cord. I believe this is the likely cause of her symptoms. Given that, the above segment is a transitional segment between the listhesis and the previous fusion. Typically, and situation such as this Dr. Dsouza would treat this with the extension of ACDF to C6-7, and C7-T1 accompanied by anterior plating to correct the listhesis. However, the patient has a fairly complex medical history. I would like to obtain a most recent A1c for her, and have her obtain a set of flexion/extension x-rays to see if the listhesis accentuates all with dynamic spine x-rays. I will review her MRI and x-ray imaging with the attending neurosurgeon Dr. Dsouza, and update this note with his plan. Thank you for allowing us to care for your patient. The total time spent with this visit with this patient was 45 minutes reviewing history, physical exam, MRI imaging review, and implementation of treatment plan or further diagnostic testing Serge Dsouza MD,PhD [facility] Orders: Orders XR cervical spine 4V Today M43.12 - Spondylolisthesis, cervical region Coding Level of Care Code New Pt Level 4 (23578) Diagnoses Spondylolisthesis, cervical region M43.12
[2024-04-29 13:32] VITALS: BMI 28.7
--- OUTSIDE RECORDS SUMMARY | 2024-04-29 18:04 | XMS_ITS | Clinical Summary ---
Author Organization [facility] Address [address] [place] [address] Care Team Providers Care Guidance Counselor Name Role Phone Suri Diamond GABBY Primary Care Provider Source Comments PLEASE NOTE, if this patient is a minor, it may be UNLAWFUL to discuss sensitive information that is contained in these records (such as FAMILY PLANNING, MENTAL HEALTH or SUBSTANCE ABUSE) with the minor patient's parent or other person without the patient's specific authorization.[facility] Allergies Active Allergy Reactions Criticality Noted Date Comments Hydrocodone-Acetaminophen Itching 12/17/2012 Oxycodone-Acetaminophen Itching 12/17/2012 Medications simvastatin (ZOCOR) 20 mg tabletIndicati ons:Dyslipidem ia Take 1 Tab by mouth nightly at bedtime. 30 Tab 2 3 Active ergocalciferol , vitamin D2, (VITAMIN D2) 50,000 unit capsuleIndicat ions:Vitamin D deficiency Take 1 Cap by mouth once a week. 4 Cap 2 3 Active nicotine polacrilex (NICORETTE) 4 mg gumIndications :Smoking addiction Take 1 Each by mouth as needed for smoking cessation. Do not eat or drink for 15 minutes before or while chewing gum. 380 Each 6 3 Active amoxicillin-cl avulanate (AUGMENTIN) 875-125 mg per tabletIndicati ons:Cellulitis and abscess of finger Take 1 Tab by mouth 2 (two) times daily. 20 Tab 0 3 Active diclofenac (VOLTAREN) 1 % gelIndications :Osteoarthriti s Apply topically 2 (two) times daily. Apply to most painful area. 100 g 2 3 Active buPROPion (WELLBUTRIN) 100 mg tabletIndicati ons:Smoking addiction,Depr ession Take 1 Tab by mouth 3 (three) times daily. 90 Tab 2 3 Active miconazole (MICOTIN) 200 mg vaginal suppositoryInd ications:Yeast vaginitis Place 1 Suppository vaginally nightly at bedtime. 3 Suppository 0 4 Active indomethacin (INDOCIN) 25 mg capsuleIndicat ions:Arthritis Take 1 Cap by mouth 3 (three) times daily with meals. 90 Cap 3 4 Active ice bagIndications :Arthritis Apply ice compress to the left knee for pain when needed 5 Each 5 4 Active nabumetone (RELAFEN) 750 mg tabletIndicati ons:Knee pain, left Take 1 Tab by mouth 2 (two) times daily. 60 Tab 2 4 Active Active Problems Problem Noted Date Diagnosed Date Knee pain, left 07/18/2013 Hand pain, right 07/03/2013 Arthritis 06/06/2013 Routine gynecological examination 05/22/2013 Smoking addiction 02/20/2013 Depression 02/20/2013 Cellulitis and abscess of finger 02/20/2013 Smoking 12/17/2012 Preventive measure 12/17/2012 Routine health maintenance 12/17/2012 Osteoarthritis 12/17/2012 Lumbar pain with radiation down both legs 2012 Resolved Problems Problem Noted Date Diagnosed Date Resolved Date Yeast vaginitis 05/22/2013 11/20/2020 Immunizations Name Administration Dates Next Due INFLUENZA, SEASONAL, INJECTABLE 12/17/2012 Family History Medical History Relation Name Comments Diabetes Father High Cholesterol Maternal Aunt High Cholesterol Maternal Grandmother Hypertension Maternal Grandmother Asthma Mother Asthma Sister Hypertension Sister Relation Name Status Comments Father Maternal Aunt Maternal Grandmother Mother Sister Social History Tobacco Use Types Packs/Day Years Used Date Smoking Tobacco: Every Day Cigarettes 0.2 20 Smokeless Tobacco: Never Tobacco Cessation:Ready to Q uit: Yes; Counseling Given: Yes Comments:1 cigarettes other day Quit:05/17 Alcohol Use Standard Drinks/Week Comments Yes 1.7 (1 standard drink = 0.6 oz p ure alcohol) ocassionally Comments No Sex and Gender Information Value Date Recorded Sex Assigned at Not on file Legal Sex Female 6:13 AM PDT Gender Identity Not on file Sexual Orientation Not on file Last Filed Vital Signs Vital Sign Reading Time Taken Comments Blood Pressure 154/84 07/18/2013 9:23 AM EDT Pulse 90 07/18/2013 9:23 AM EDT Temperature 36.7 ??C (98 ??F) 07/18/2013 9:23 AM EDT Respiratory Rate 16 07/18/2013 9:23 AM EDT Oxygen Saturation - - Inhaled Oxygen Concentration - - Weight 85.7 kg (188 lb 14.4 oz) 07/18/2013 9:23 AM EDT Height 154.9 cm (5' 1 ) 07/18/2013 9:23 AM EDT Body Mass Index 35.69 07/18/2013 9:23 AM EDT Plan of Treatment Not on file Insurance [facility] [employer] PLAN Member Subscriber Plan / Payer (Ef fective 2013-Present) Name:Rusty Salmeronlia Relation to Subscriber:Self Name:Rusty Salmeronlia Payer ID:[id number] Group ID:[id number] Type:Medicaid Address: [facility] [address] [place] [address] Care Teams Guidance Counselor Relationship Specialty Start Date End Date Suri Diamond NP PCP - General Family Medicine DELPHI DEVELOPER 12/17/12
--- OUTSIDE RECORDS SUMMARY | 2024-04-29 18:04 | XMS_ITS | Clinical Summary ---
Author Organization [facility] Address [address] [place] [address] Care Team Providers Care Arch Pad Cementer Name Role Phone Pcp, No Primary Care Provider Unavailabl e Allergies Active Allergy Reactions Criticality Noted Date Comments Hydrocodone-Acetaminophen Itching Low 12/17/2012 Oxycodone Rash/Dermatitis High 02/11/2021 Zolpidem Rash/Dermatitis High 02/11/2021 Medications Medication Sig Dispensed Refills Start Date End Date Status acetaminophen (TYLENOL) 325 MG tabletIndications:I schemic colitis Take 2 tablets (650 mg total) by mouth 4 times daily (every 6 hours) as needed for mild pain. 240 tablet 11/28/2021 Active HYDROmorphone (DILAUDID) 2 MG tabletIndications:I schemic colitis Take 1 tablet (2 mg total) by mouth every 4 (four) hours as needed for severe pain. Max Daily Amount: 12 mg 20 tablet 11/28/2021 Active docusate sodium (COLACE) 100 MG capsuleIndications: Ischemic colitis Take 1 capsule (100 mg total) by mouth 2 (two) times a day as needed for constipation. Take for prevention of narcotic induced constipation, hold for loose stools. 60 capsule 11/28/2021 Active Active Problems Problem Noted Date Diagnosed Date Ischemic colitis 11/24/2021 Overview (11/24/2021): Added automatically from request for surgery [id number] Ischemic bowel disease 11/24/2021 Social History Tobacco Use Types Packs/Day Years Used Date Smoking Tobacco: Never Assessed Tobacco Cessation:Counseling Given: No Sex and Gender Information Value Date Recorded Sex Assigned at Female 11/28/2021 11:10 AM EDT Gender Identity Female 11/28/2021 11:10 AM EDT Sexual Orientation Heterosexual (straight) 11/28 11:10 AM EDT Last Filed Vital Signs Vital Sign Reading Time Taken Comments Blood Pressure 98/62 12/15/2021 3:45 PM EDT Pulse 79 12/15/2021 3:45 PM EDT Temperature 35.5 ??C (95.9 ??F) 12/15/2021 3:45 PM ED T Respiratory Rate 16 12/15/2021 3:45 PM EDT Oxygen Saturation 100% 12/15/2021 3:45 PM EDT Inhaled Oxygen Concentration - - Weight 83.6 kg (184 lb 4.9 oz) 11/24/2021 7:00 A M EDT Height - - Body Mass Index - - Plan of Treatment Health Maintenance Due Date Last Done Comments HIV Screening 1974 DTaP/Tdap/Td Vaccines (1 - Tdap) 1980 Pap Smear (Ages 21-65) 1982 Mammogram 2001 Colonoscopy 2006 Pneumococcal Vaccines 50+ (1 of 1 - PCV) 08/24/2011 Zoster (Shingles) Vaccine (1 of 2) 08/24/2011 Influenza Vaccine 11/02/2023 12/17/2012 COVID-19 Vaccine ( - 2023-2 5 season) 2023 RSV Vaccine 60 years and old er and Patients (1 - 1-dose 75+ series) 2036 Hepatitis C Virus Screening Completed 11/24/2021 Hepatitis B Vaccines Aged Out No long er eligible based on patient's age to complete this topic Pneumococcal Vaccine: Pediat patrice (0-5 Years) and At-Risk Patients (6 to 49 Years) Aged Out No longer eligible b ased on patient's age to complete this topic Procedures Procedure Name Priority Date/Time Associated Diagnosis Comments HEPATITIS PANEL, ACUTE Routine 11/24/2021 6:13 AM EDT from Last 3 Months or Most Recently Relevant to Health Maintenance Results * Hepatitis Panel, Acute (11/24/2021 6:13 AM EDT) Hepatitis A Antibody IgM Nonreactive Nonreactive S/CO 11/24/2021 11:21 AM EDT [facility] Hepatitis B Core Antibody IgM Nonreactive Nonreactive 11/24/2021 11:21 AM EDT [facility] Hepatitis B Surface Ag Screen Nonreactive Nonreactive 11/24/2021 11:21 AM EDT [facility] Hepatitis C Antibody 0.54 0.00 - 0.79 S/CO ratio 11/24/2021 11:21 AM EDT [employer] Hepatitis C Antibody Interpretation Nonreactive Nonreactive 11/24/2021 11:21 AM EDT [facility] Hepatitis Interpretation: Results inconsistent with acute Hepatitis A, B or C Virus infection. 11/24/2021 11:21 AM EDT [facility] Blood specimen (specimen) Serum specimen / Unknown 11/24/2021 6:13 AM EDT 11/24/2021 6:40 AM EDT [facility] [employer] [facility] [address] [place] [address] from Last 3 Months or Most Recently Relevant to Health Maintenance Advance Directives * Full Code (Latest Code Status on File) Date Activated Date Inactivated Comments 11/24/2021 3:35 AM 12/15/2021 3:20 PM Care Teams Arch Pad Cementer Relationship Specialty Start Date End Date Pcp, No PCP - General General Medicine 11/28/21
--- OUTSIDE RECORDS SUMMARY | 2024-04-29 18:05 | XMS_ITS ---
Author Name [facility] Organization Unknown Problems Problem Status Onset Date Problem Type Date of Resoluti on Source Ischemic colitis active 2021-11-24 ProblemAct [facility]
--- OUTSIDE RECORDS SUMMARY | 2024-04-29 18:05 | XMS_ITS | Clinical Summary ---
[facility] Address [address] [place] [address] Care Team Providers Care Training Intern Name Role Phone Mata Ashanti Primary Care Provider [phone] Surgical History Surgery Date Site/Laterality Comments TOTAL KNEE ARTHROPLASTY Bilateral PROCEDURE: CO ARTHRP KNE CONDYLE&PLATU MEDIAL&LAT COMPARTMENTS BLADDER SURGERY PROCEDURE: HISTORICAL BLADDER SURGERY OTHER SURGICAL HISTORY 09/21/2021 PROCEDURE: CO PATRICIO FACETECTOMY & FORAMOTOMY 1 VRT SGM LUMBAR; COMMENT: L4-5 decompression, resection of left synovial cyst, placement of Coflex device, Dr. Trinidad CHOLECYSTECTOMY PROCEDURE: HISTORICAL CHOLECYSTECTOMY TUBAL LIGATION PROCEDURE: HISTORICAL TUBAL LIGATION OTHER SURGICAL HISTORY 01/24/2022 PROCEDURE: CO ARTHRODESIS POSTERIOR INTERBODY 1 NTRSPC LUMBAR; COMMENT: Removal of Coflex device L4-5, L4-5 resection of bilateral synovial cysts and fusion, Dr. Trinidad OTHER SURGICAL HISTORY 02/20/2023 PROCEDURE: CO PERQ VERT AGMNTJ CAVITY CRTJ UNI/BI CANNULJ LMBR; COMMENT: L2 kyphoplasty, Dr. Trinidad Medical History Medical History Date Comments Bronchitis DX:Bronchitis Diabetes mellitus type 2, co ntrolled, with complications (CMS/HCC) DX:Diabetes mellitus type 2, controlled, with complications ([facility]) Fibromyalgia DX:Fibromyalgia Hx of neck surgery DX:Hx of neck surgery; COMMENT: x 3 COPD (chronic obstructive pu lmonary disease) (CMS/HCC) DX:COPD (chronic obstructive pulmonary disease) (HCC) GERD (gastroesophageal reflux disease) DX:GERD (gastroesophageal reflux disease) Steatohepatitis DX:Steatohepatit is Essential (primary) hypertension DX:Essential (primary) hypertension Mixed hyperlipidemia DX:Mixed hy perlipidemia Depression with anxiety DX:Depre ssion with anxiety Peripheral neuropathy DX:Periphe ral neuropathy Social History Tobacco Use Types Packs/Day Years Used Date Smoking Tobacco: Former Cigarettes Q uit: 04/03/2011 Smokeless Tobacco: Never Alcohol Use Standard Drinks/Week Comments Not Asked 0 (1 standard drink = 0.6 oz pur e alcohol) Sex and Gender Information Value Date Recorded Sex Assigned at Not on file Gender Identity Not on file Sexual Orientation Not on file Obstetrics History Last Filed Vital Signs Vital Sign Reading Time Taken Comments Blood Pressure - - Pulse - - Temperature - - Respiratory Rate - - Oxygen Saturation - - Inhaled Oxygen Concentration - - Weight 68.5 kg (151 lb) 03/18/2022 10:48 AM EST Height 160 cm (5' 3 ) 03/02/2023 10:11 AM EST Body Mass Index 26.75 03/18/2022 10:48 AM EST Plan of Treatment Health Maintenance Due Date Last Done Comments Breast Cancer Screening 1961 Cervical Cancer Screening: Pap Smear 1982 Colorectal Cancer Screening: Colonoscopy 03/13/2022 Depression Screening 03/13/2022 HIV Screening 03/13/2022 Hepatitis C Screening 03/13/2022 Social Influencers of Health Screening 03/13/2022 COVID-19 Vaccine ( - 2023- season) 2023 02/23/2021, 07/08/2020, 06/10/2020 Influenza Vaccine (#1) 2023 , 11/27/2019, 01/10/2019, Additional history exists DTaP,Tdap,and Td Vaccines (2 - Td or Tdap) 01/17/2029 01/17/2019 RSV Immunization Patients 60+ Years Old (1 - 1-dose 75+ series) 2036 Zoster Vaccines Completed 02/23/2021, 12/16/2020 HIB Vaccines Aged Out No longer eligi ble based on patient's age to complete this topic HPV Vaccines Aged Out No longer eligi ble based on patient's age to complete this topic Hepatitis A Vaccines Aged Out No long er eligible based on patient's age to complete this topic Hepatitis B Vaccines Aged Out No long er eligible based on patient's age to complete this topic IPV Vaccines Aged Out No longer eligi ble based on patient's age to complete this topic MMR Vaccines Aged Out No longer eligi ble based on patient's age to complete this topic Meningococcal ACWY Vaccine Aged Out N o longer eligible based on patient's age to complete this topic Pneumococcal Vaccine: Pediatrics (0 to 5 Years) and At-Risk Patients (6 to 64 Years) Aged Out No longer eligible based on patient's age to complete this topic RSV Immunization Patients Under 20 months Aged Out No longer eligible based on patient's age to complete this topic Varicella Vaccines Aged Out No longer eligible based on patient's age to complete this topic Advance Directives Documents on File Type Date Recorded Patient Therapy Site Coordinator Expl anation Health Care Decision (hx) 10/02/2021 AD EMERY DIRECTIVE Health Care Decision (hx) 10/02/2021 AD EMERY DIRECTIVE Health Care Decision (hx) 10/02/2021 AD EMERY DIRECTIVE Health Care Decision (hx) 10/02/2021 AD EMERY DIRECTIVE Health Care Decision (hx) 10/02/2021 AD EMERY DIRECTIVE Health Care Decision (hx) 10/02/2021 AD EMERY DIRECTIVE Care Teams Training Intern Relationship Specialty Start Date End Date [facility] [address] [place] [id number] PCP - General 10/06/23
--- OUTSIDE RECORDS SUMMARY | 2024-04-29 18:05 | XMS_ITS | Clinical Summary ---
Author Organization [facility]. Address [address] [address] Phone Care Team Providers Care Automatic Buffer Name Role Phone Unavailable Primary Care Provider Unavailabl e Allergies Active Allergy Reactions Criticality Noted Date Comments Hydrocodone-Acetaminophen Itching 12/17/2012 Oxycodone Rash High 02/11/2021 Oxycodone-Acetaminophen Itching 12/17/2012 Zolpidem Rash High 02/11/2021 Medications alpha tocopherol (VITAMIN E) 100 units capsule Take 1 capsule by mouth 1 (one) time each day Active tiZANidine (ZANAFLEX) 2 MG tablet Take 3 tablets by mouth 2 (two) times a day Active simethicone (MYLICON) 125 MG chewable tablet Chew 1 tablet 3 (three) times a day Active pregabalin (LYRICA) 75 MG capsule Take 1 capsule by mouth 1 (one) time each day Active mirtazapine (REMERON) 15 MG tablet Take 1 tablet by mouth at bed time Active metFORMIN (GLUCOPHAGE) 500 MG tablet Take 1 tablet by mouth 2 (two) times a day Active lisinopril 2.5 MG tablet Take 1 tablet by mouth 1 (one) time each day Active hydrOXYzine (ATARAX) 25 MG tablet Take 3 tablets by mouth at bed time Active fenofibrate micronized (LOFIBRA) 134 MG capsule Take 1 capsule by mouth 1 (one) time each day Active DULoxetine (CYMBALTA) [address] capsule Take 2 capsules by mouth 1 (one) time each day Active dicyclomine (BENTYL) 20 MG tablet Take 1 tablet by mouth 3 (three) times a day Active cholecalcifero l (VITAMIN D-3 SUPER STRENGTH) 50 MCG (2000 UT) tablet Take 1 tablet by mouth 1 (one) time each day Active atorvastatin (LIPITOR) 40 MG tablet Take 1 tablet by mouth 1 (one) time each day Active Probiotic Product (PROBIOTIC-10 PO) Take 1 tablet by mouth 1 (one) time each day Active Trulicity 1.5 MG/0.5ML solution pen-injector INJECT ONE PEN (=1.5MG) SUBCUTANEOUSLY ONCE A WEEK DIRECTED (for diabetes) 2 Active Active Problems Problem Noted Date Diagnosed Date Cervical disc prolapse with radiculopathy 202203/07/2023 Fibromyositis 03/07/2023 03/07/2023 Hiatal hernia 03/07/2023 03/07/2023 Ligation of fallopian tube 03/07/202303/07 Reflux esophagitis 03/07/2023 03/07/2023 Compression fracture of L2 03/02/202303/07 Overview (03/07/2023): Last Assessment & Plan: Patient is 10 days s/p L2 kyphoplasty, path: Negative for malignancy. Patient states her back pain went from 10+/10 preop to a 4/10 postop. She has residual back pain if she is rolling over in bed, standing for a long time. She denies any leg symptoms. She was discharged postop with tramadol, has been taking about 3 pills a day, has 5 left. Ms. Salmeron is doing well postop, hopefully will note some continued improvements with time. We talked about making sure she is walking and stretching daily, she did not want physical therapy at this time. We talked about trying Tylenol or Motrin for pain, instead of tramadol. All postop questions answered. She will call with any concerns or questions. Memory impairment 01/02/2023 03/07/2023 Overview (03/07/2023): - Increased forgetfulness-names, task recall, forgetting what she is writing - Leaving stove on - Several episodes of feeling lost/disoriented in familiar places - Family members have also shared concerns - MGM with dementia in advanced age - Labs (CBC, B12/Folate, TSH) all within normal limits 10/2022 - Brain MRI 12/29/22 negative Last Assessment & Plan: ?? Discussed MRI findings with patient ?? Evaluation negative for dementia or MCI thus far, suspect pt report of memory impairment s/t increased stress and chronic health conditions ?? Will continue to monitor sx H/O: gastrointestinal disease 10/28/2022 Cirrhosis 10/25/2022 03/07/2023 Overview (03/07/2023): ?? Early REAL cirrhosis ?? Followed by [facility] Aortic valve sclerosis 10/25/2022 Anemia 10/25/2022 03/07/2023 Dependence on supplemental oxygen 10/25/2022 03/07/2023 Dysphagia, pharyngoesophageal phase 10/25/2022 03/07/2023 Lumbar radiculopathy 10/25/2022 03/07/2023 Overview (03/07/2023): Last Assessment & Plan: Ms. Salmeron is here for 1 year follow-up since revision surgery on 01/24/2022. She had removal of a Coflex device, resection of synovial cyst then pedicle screw fixation and fusion. She states she has not been feeling well for a while though she cannot pinpoint a specific illness. She seems to hurt all over. On exam, she is tender along the lumbar spine though there is no swelling. Seated SLR is positive bilaterally at 90 degrees, strength 5/5, sensation light touch intact, gait is slow with a quad cane. She will go for her lumbar spine CT to assess the fusion and I will contact her with the results. ?? S/p multiple spinal surgeries through [facility] 09/2021 for cyst removal ?? Followed by [facility] mngmt Hyperkalemia 10/25/2022 03/07/2023 Obstructive sleep apnea syndrome 10/25/2022 03/07/2023 Multiple nodules of lung 10/25/2022 023 Sacroiliac disorder 10/25/2022 03/07/2023 Recurrent falls 10/25/2022 03/07/2023 Poor stream of urine 10/25/2022 03/07/2023 Overview (03/07/2023): ?? Followed by [facility] ?? [facility] Finding of hand region 09/20/2022 Overview (03/07/2023): Last Assessment & Plan: Due to increased albuterol use, trest of neurological exam is normal. No evidence of other EPS. Vascular insufficiency of intestine 11/24/2021 Ischemic colitis 11/24/2021 Overview (02/21/2022): Added automatically from request for surgery [id number] Congestive heart failure 02/27/2021 023 Overview (03/07/2023): Followed by Dr. Saenz, LVEF 60-65% and mild diastolic dysfunction 03/08/21 Stage 3a chronic kidney disease 02/15/2021 Type 2 diabetes mellitus wit h diabetic chronic kidney disease 02/15/2021 Chronic kidney disease stage 3 02/11/2021 Hyperlipidemia 02/11/2021 Type 2 diabetes mellitus 02/11/2021 Renal function tests outside reference range 02/2021 Irritable bowel syndrome 01/20/2021 023 Steatohepatitis 01/20/2021 03/07/2023 Chronic obstructive pulmonary disease 01/17/2021 03/07/2023 Overview (03/07/2023): Last Assessment & Plan: O2 sat at RA is normal. Start medrol pack only, use albuterol inh with spacer q4h x 3d, then q6h until she completes PRD. CXR, BNP and CBC to ro pneumonia vs CHF. Counseled to use O2 at home. I told her that if sxs are completely resolved by 02/18, she could have spine surgery, otherwise,needs to fu with surgeon and probably with PCP ?? Trelegy ellipta ?? Albuterol PRN ?? [facility] Fibromyalgia 12/08/2020 03/07/2023 Overview (03/07/2023): ?? Lyrica 75mg t.i.d ?? Followed by rheumatology Pain in left knee 07/18/2013 Pain in right hand 07/03/2013 Arthritis 06/06/2013 Candidiasis of vagina 05/22/2013 Routine gynecological examination 05/22/2013 Cellulitis and abscess of finger 02/20/2013 Depressive disorder 02/20/2013 Low back pain 12/17/2012 Osteoarthritis 12/17/2012 Patient encounter status 12/17/2012 Smoker 12/17/2012 Patient encounter status 12/17/2012 Encounters Date Type Department Care Team Description 03/28/2024 4:15 PM EST Office [facility] [address] [place] [address] Nguyễn Baird MD Type 2 diabetes mellitus with diabetic chronic kidney disease (HCC) (Primary Dx); Stage 3a chronic kidney disease (HCC) from Last 3 Months Immunizations Name Administration Dates Next Due Influenza (IM) Preservative Free 01/04/2017 Influenza TIV (IM) 12/17/2012 Influenza, MDCK, PF, Quadrivalent 12/24/2021,01/2019 Influenza, Quadrivalent, Pre servative Free 01/02/2023,12/22/2020,11/27/2019,2017 Influenza, Quadrivalent, Wit h Preservative 02/09/2017,04/08/2016 Moderna SARS-COV-2 02/23/2021,07/08/2020, 021 Pneumococcal Conjugate Pcv 20 11/17/2021 Shingrix 02/23/2021,12/16/2020 Tdap 01/17/2019,11/05/2014 Family History Medical History Relation Comments Diabetes Father Cancer Mother colon Diabetes Sibling Relation Status Comments Father Mother Alive Sibling Social History Tobacco Use Types Packs/Day Years Used Date Smoking Tobacco: Former Cigarettes 0.3 0 1 - 01/27/2020 Comments:Smoking History Inf o:Every day Alcohol Use Standard Drinks/Week Comments No 0 (1 standard drink = 0.6 oz pur e alcohol) Comments Unknown Sex and Gender Information Value Date Recorded Sex Assigned at Not on file Legal Sex Female 4:58 PM EST Gender Identity Not on file Sexual Orientation Not on file Last Filed Vital Signs Vital Sign Reading Time Taken Comments Blood Pressure 114/70 03/28/2024 4:04 PM EST Pulse 110 03/07/2023 10:48 AM EST Temperature - - Respiratory Rate - - Oxygen Saturation 96% 03/07/2023 10:48 AM EST Inhaled Oxygen Concentration - - Weight 74.9 kg (165 lb 3.2 oz) 03/28/2024 4:04 P M EST Height 160 cm (5' 3 ) 02/10/2020 12:00 PM EST Body Mass Index 29.26 02/10/2020 12:00 PM EST Plan of Treatment Upcoming Encounters Date Type Department Care Team (Late st Contact Info) Description 03/31/2025 2:00 PM EST Office [facility] [address] [place] [address] Nguyễn Baird MD [address] [facility] [address] [place] [phone] Health Maintenance Due Date Last Done Comments Breast Cancer Screening 1960 Colorectal Cancer Screening: Annual FOBT 2010 Colorectal Cancer Screening: Colonoscopy 2010 Colorectal Cancer Screening: Sigmoidoscopy 2010 Diabetes: Ophthalmology Exam 05/03/2020 Diabetes: Pedal Pulse Checked 05/03/2020 Diabetes: Sensory Foot Exam 05/03/2020 Diabetes: Visual Foot Exam 05/03/2020 Hepatitis B Vaccine (1 of 3 - Risk 3-dose series) 2021 Diabetes: Hemoglobin A1C 05/02/2024 024, 01/02/2023, 11/24/2021, Additional history exists Pneumococcal Vaccine: Pediat rics (0 to 5 Years) and At-Risk Patients (6 to 64 Years) Completed 11/17/2021 Influenza Vaccine Completed 12/20/2023, , 12/24/2021, Additional history exists Procedures Procedure Name Priority Date/Time Associated Diagnosis Comments BLOOD PANEL (HC) Routine 12/17/2019 12:0 0 AM EDT from Last 3 Months or Most Recently Relevant to Health Maintenance Results * (ABNORMAL) Blood Panel (12/17/2019 12:00 AM EDT) Potassium 5.4(H) 3.5 - 5.1 mmol/L [facility] Creatinine 1.23 0.70 - 1.30 mg/dl [facility] Vitamin D, 25-OH, Total 45.3 20 - 100 ng/ml [facility] eGFR Non- 45(L) >60 ml/min [facility] Cholesterol 168 <200 mg/dl [facility] HDL 41 >40 mg/dl [facility] Triglycerides 215(H) <150 mg/dl [facility] LDL,Direct 84 <130 mg/dl [facility] Platelets 313 140 - 440 k/uL [facility] BUN 29(H) 9 - 20 mg/dl [facility] Calcium 10.2 8.4 - 10.2 mg/dl [facility] Hgb 13.0 13.0 - 16.5 g/dl [facility] Hematocrit 41.7 38 - 50 % [facility] Hemoglobin A1C 6.0(H) <5 % [facility] Sodium 141 137 - 145 mmol/L [facility] Carbon Dioxide (CO2) 23 22 - 30 mmol/L [facility] 12/17/2019 us [facility] [id number] LICITED RESULTS Final Result [facility] from Last 3 Months or Most Recently Relevant to Health Maintenance Insurance [facility] ([id number]) * Guarantor: Sharri Salmeron Account Type Relation to Patient Date of Phone Billing Address Personal/Family Self 1960 [address] [place] [address] [place] [address] [facility] ([id number])
== END 2024-04-29 14:31 | disposition home or self-care (01) ==
PROVIDERS: PCP Registered Nurse; Referring Provider Registered Nurse; Visit Provider Physician Assistant
DX: M43.12 Spondylolisthesis, cervical region (principal)
CPT/HCPCS: 99204

== ENCOUNTER → 2024-04-29 14:13 | Outpatient (BNV) | payer OTHER, SELFPAY | PROVIDERS: PCP Registered Nurse; Referring Provider Registered Nurse; Visit Provider Radiology Diagnostic Radiology | DX: M50.322 Other cervical disc degeneration at C5-C6 level (principal); M50.323 Other cervical disc degeneration at C6-C7 level; M50.33 Other cervical disc degeneration, cervicothoracic region | CPT/HCPCS: 72050 ==

== ENCOUNTER 2024-05-01 13:44 | Outpatient (AMB) | payer OTHER, SELFPAY ==
[2024-05-01 13:51] VITALS: BP 136/76; PULSE 95; RESP 16; O2SAT 95; BMI 28.3
--- NOTE | 2024-05-01 13:51 | MHC.OFFVIS ---
Vital Signs 05/01/24 13:51 Height 5 ft 3 in Weight 160 lb BMI 28.3 BP 136/76 Blood Pressure Location Lt brachial Position Sitting Respiration 16 Pulse 95 Pulse Source Pulse Oximeter Pulse Oximetry (%) 95 Oxygen Delivery Method Room Air Intake Visit Reasons: COPD Mechanical Applications Engineer Required: No Allergies oxycodone [Percocet] Allergy (Intermediate, Verified 05/01/24 13:53) Itching Vicodin Allergy (Intermediate, Uncoded 05/01/24 13:53) itching Medication List - Last Reconciled 05/01/24 by Sadie Pop LPN albuterol sulfate 90 mcg/actuation 2 puffs inhalation Q4-6H PRN amlodipine 5 mg PO DAILY atorvastatin 80 mg PO DAILY blood sugar diagnostic As directed blood-glucose meter (OptimitiveStQewz [place] Lite kit) As directed bupropion HCl XL 150 mg PO QAM clonidine HCl 0.1 mg PO BID dulaglutide (Trulicity) mg subcut duloxetine 60 mg PO DAILY 30 days cprnpohjzvb-vyfqwlilc-dladeifa 200-62.5-25 mcg (Trelegy Ellipta) 1 inh inhalation DAILY 30 days gabapentin 100 mg PO TID inhalational spacing device (Compact Space Chamber) As directed lancets (TRUEplus Lancets) As directed omeprazole 20 mg PO BID 90 days ondansetron 4 mg PO Q8H PRN 30 days pregabalin 75 mg PO TID quetiapine 400 mg PO DAILY risperidone mg PO simethicone (Gas Relief (simethicone)) 125 mg PO BID-QID PRN 30 days theophylline ER 400 mg PO DAILY vitamin E (dl, acetate) 45 mg PO DAILY HPI HPI COPD: Details: 63-year-old lady, recent 35+ pack-year smoker followed for supplemental oxygen 2 L continuous flow dependent COPD.? She continues to use Trelegy with reasonable control of her underlying dyspnea.? She does have an underlying diastolic dysfunction and is currently under cardiologic care.? She denies acute exacerbations. Patient does complain of left-sided neck pain secondary to cervical disc issue for which she is undergoing neurosurgical evaluation. She was tried on theophylline with no significant response. Patient is interested in pulmonary rehab. [facility] Medical History ELIZABET (acute kidney injury) Encephalopathy UTI (urinary tract infection) Bacteremia Frequent falls Acute exacerbation of chronic obstructive airways disease Urinary retention with incomplete bladder emptying Steatohepatitis IBS (irritable bowel syndrome) History of colon polyps Dysphagia, pharyngoesophageal phase GERD without esophagitis Hx of hereditary disease Diabetes mellitus Depression Fibromyalgia Surgical History Hx of abdominal surgery History of back surgery History of esophagogastroduodenoscopy (EGD) S/p total knee replacement, bilateral Hx of tubal ligation Hx of cholecystectomy Hx of endoscopy History of colonoscopy Family History Father History of heart attack Hx of type 1 diabetes mellitus Mother Alive and well Social History Household Members: Significant Other Housing: Apartment Do you presently have visiting nurse or other home services: Yes Alcohol intake: former Patient Tobacco Use Status: Former Tobacco user Tobacco use type: Cigarette Cigarette Packs Per Day: 0.5 Cigarettes Per Day: 10.0 Years Smoked: 25 yrs Second Hand Smoke Exposure: No Advance Directives Date on File: 10/20/20 service: No Current occupational status: unemployed Review of Systems Const Denies daytime sleepiness, Denies excessive sweating, Denies fatigue, Denies fever(s), Denies lethargy, Denies malaise, Denies night sweats, Denies snoring and Denies weight loss Eyes Denies blurry vision and Denies itchy eyes ENT Denies nasal congestion, Denies post nasal drip, Denies sinus pain, Denies sinus pressure and Denies other ( Thrush) Card Denies chest pain, Denies pedal edema, Denies dyspnea, Denies orthopnea and Denies paroxysmal nocturnal dyspnea Resp Denies cough, Denies hemoptysis, Denies excessive phlegm production, Denies dyspnea, Denies snoring and Denies wheezing GI Denies abdominal pain and Denies heartburn Musc Denies myalgias, Denies arthralgias and Denies joint swelling Skin/Breast Denies rash Neuro Denies memory loss and Denies seizure-like activity Psych Denies abnormal sleep pattern, Denies anxiety and Denies memory loss Endo Denies excessive sweating, Denies fatigue and Denies heat intolerance Rocky/Lymph Denies easy bruising Aller/Immun Denies itchy eyes, Denies seasonal rhinorrhea and Denies wheezing Physical Exam Vital Signs: Last Vital Signs Pulse 95 05/01/24 13:51 Resp 16 05/01/24 13:51 BP 136/76 05/01/24 13:51 Pulse Ox 95 05/01/24 13:51 Oxygen Delivery Method Room Air 05/01/24 13:51 BMI result Body Mass Index 28.3 Const General: no acute distress and alert Nutritional Appearance: not obese Orientation/consciousness: Other orientation findings ( oriented) HEENT Head: Yes atraumatic Eyes General: appearance normal, both eyes and all related structures Sclerae: sclerae normal EOM: EOMs intact bilaterally Neck Neck: Yes supple Lymphatic: no lymphadenopathy noted Resp Effort & Inspection: normal respiratory effort and no use of accessory muscles Auscultation: clear to auscultation bilaterally Cardio Rate: regular rate Rhythm: regular rhythm Heart sounds: no gallops, no murmurs and no rubs Skin General skin exam: other ( warm) Extrem General: No clubbing, No cyanosis and No edema Assessment & Plan Assessment & Plan (1) COPD (chronic obstructive pulmonary disease): Code(s): J44.9 - Chronic obstructive pulmonary disease, unspecified Category: Medical Plan: Reasonable control on current regimen of Trelegy and albuterol MDI. No symptomatic improvement with theophylline, will discontinue. Will refer to Pulmonary rehab. (2) Supplemental oxygen dependent: Code(s): Z99.81 - Dependence on supplemental oxygen Category: Medical Plan: Continue supplemental oxygen to maintain O2 saturation of 89-92%. Orders: Orders Pulmonary Rehab Today J44.9 - Chronic obstructive pulmonary disease, unspecified Medications: Discontinued theophylline ER Discontinued Reason: Doctor's Order 400 mg PO DAILY 30 tabs 6RF Coding Level of Care Code Est Pt Level 4 (10454) Diagnoses COPD (chronic obstructive pulmonary disease) J44.9 Supplemental oxygen dependent Z99.81
--- OUTSIDE RECORDS SUMMARY | 2024-05-01 15:58 | XMS_ITS | Encounter Summary ---
Author Organization [email or web address] Address [address] [place] [address] 7 [place] [address] Care Team Providers Care Caustics Loader Name Role Phone Ashanti August COMBINED RAIL OPERATOR Primary Care Provider Jeff Villarreal COMBINED RAIL OPERATOR Unavailable Unavailable Encounter Details Date Type Department Care Team (Late st Contact Info) Description 07/22/2022 Orders Only [facility] MED & PEDS [address], [place] [phone] Elizabeth Meadows LPN Social History Tobacco Use [...] Description 05/16/2024 9:30 AM EST Procedure Visit [facility] [address], [place] [phone] Lexi Thomson CNM [address] [place], [place] [phone] documented as of this encounter Visit Diagnoses Not on filedocumented in this encounter Additional Health Concerns Assessment Noted Time PHQ-9 Depression Total Score: 13 023 2:44 PM EST documented as of this encounter Care Teams Caustics Loader Relationship Specialty Start Date End Date Ashanti August FNP [address] [place] [address] PCP - General Family Medicine 11/24/21 Jeff Villarreal FNP [address] [place] [address] Nurse Practitioner Family Medicine 02/20/23 documented as of this encounter
--- OUTSIDE RECORDS SUMMARY | 2024-05-01 15:58 | XMS_ITS | Clinical Summary ---
Author Organization [facility] Address [address] [place] [address] Care Team Providers Care Refinery Process Engineer Name Role Phone Mata Ashanti Primary Care Provider [phone] Surgical History Surgery Date Site/Laterality Comments TOTAL KNEE ARTHROPLASTY Bilateral PROCEDURE: AK ARTHRP KNE CONDYLE&PLATU MEDIAL&LAT COMPARTMENTS BLADDER SURGERY PROCEDURE: HISTORICAL BLADDER SURGERY OTHER SURGICAL HISTORY 09/21/2021 PROCEDURE: AK PATRICIO FACETECTOMY & FORAMOTOMY 1 VRT SGM LUMBAR; COMMENT: L4-5 decompression, resection of left synovial cyst, placement of Coflex device, Dr. Trinidad CHOLECYSTECTOMY PROCEDURE: HISTORICAL CHOLECYSTECTOMY TUBAL LIGATION PROCEDURE: HISTORICAL TUBAL LIGATION OTHER SURGICAL HISTORY 01/24/2022 PROCEDURE: AK ARTHRODESIS POSTERIOR INTERBODY 1 NTRSPC LUMBAR; COMMENT: Removal of Coflex device L4-5, L4-5 resection of bilateral synovial cysts and fusion, Dr. Trinidad OTHER SURGICAL HISTORY 02/20/2023 PROCEDURE: AK PERQ VERT AGMNTJ CAVITY CRTJ UNI/BI CANNULJ LMBR; COMMENT: L2 kyphoplasty, Dr. Trinidad Medical History Medical History Date Comments Bronchitis DX:Bronchitis Diabetes mellitus type 2, co ntrolled, with complications (CMS/HCC) DX:Diabetes mellitus type 2, controlled, with complications ([facility]) Fibromyalgia DX:Fibromyalgia Hx of neck surgery DX:Hx [...] Documents on File Type Date Recorded Patient Laceworker Expl anation Health Care Decision (hx) 10/02/2021 AD EMERY DIRECTIVE Health Care Decision (hx) 10/02/2021 AD EMERY DIRECTIVE Health Care Decision (hx) 10/02/2021 AD EMERY DIRECTIVE Health Care Decision (hx) 10/02/2021 AD EMERY DIRECTIVE Health Care Decision (hx) 10/02/2021 AD EMERY DIRECTIVE Health Care Decision (hx) 10/02/2021 AD EMERY DIRECTIVE Care Teams Refinery Process Engineer Relationship Specialty Start Date End Date [facility] [address] [place] [id number] PCP - General 10/06/23
--- OUTSIDE RECORDS SUMMARY | 2024-05-01 15:58 | XMS_ITS | Encounter Summary ---
Author Organization [employer] Address [address] [place] [address] 7 [place] [address] Care Team Providers Care Diagnostic Tech Name Role Phone Ashanti August CLIENT SERVICES COORDINATOR Primary Care Provider [phone] Jeff Villarreal CLIENT SERVICES COORDINATOR Unavailable Unavailable Encounter Details Date Type Department Care Team (Late st Contact Info) Description 05/24/2022 Orders Only [facility] MEDICINE [address] [place], [place] [phone] Isabel Escalante LPN Social History Tobacco Use [...] Description 05/16/2024 9:30 AM EST Procedure Visit [facility]EDS [address] [place], [place] [phone] Lexi Thomson CNM [address] [place], [place] [phone] documented as of this encounter Visit Diagnoses Not on filedocumented in this encounter Additional Health Concerns Assessment Noted Time PHQ-9 Depression Total Score: 13 023 2:44 PM EST documented as of this encounter Care Teams Diagnostic Tech Relationship Specialty Start Date End Date Ashanti August FNP [address] [place] [address] PCP - General Family Medicine 11/24/21 Jeff Villarreal FNP [address] [place] [address] Nurse Practitioner Family Medicine 02/20/23 documented as of this encounter
--- OUTSIDE RECORDS SUMMARY | 2024-05-01 15:58 | XMS_ITS | Encounter Summary ---
Author Organization [employer] Address [address] [place] [address] 7t [place] [address] Care Team Providers Care Maintenance Truck Driver Name Role Phone Ashanti August [facility] Primary Care Provider [phone] Jeff Villarreal ASSISTANT SALES CENTER MANAGER Unavailable Unavailable Encounter Details Date Type Department Care Team (Late Contact Info) Description 05/03/2022 Orders Only [facility] MED & PEDS [address] [place] [address] Elizabeth Meadows LPN Social History Tobacco Use [...] Description 05/16/2024 9:30 AM EST Procedure Visit [facility] MED & PEDS [address] [place] [address] Lexi Thomson CNM [address] [place] [address] documented as of this encounter Visit Diagnoses Not on filedocumented in this encounter Additional Health Concerns Assessment Noted Time PHQ-9 Depression Total Score: 13 023 2:44 PM EST documented as of this encounter Care Teams Maintenance Truck Driver Relationship Specialty Start Date End Date Ashanti August FNP [address] [place] [address] PCP - General Family Medicine 11/24/21 Jeff Villarreal FNP [address] [place] [address] Nurse Practitioner Family Medicine 02/20/23 documented as of this encounter
--- OUTSIDE RECORDS SUMMARY | 2024-05-01 15:58 | XMS_ITS | Encounter Summary ---
Author Organization [employer] Address [address] [place] [address] 7 [place] [address] Care Team Providers Care Wholesale Agronomist Name Role Phone [facility] Primary Care Provider [phone] Jeff Villarreal [facility] Unavailable Unavailable Reason for Visit * Reason Onset Date Comments Requesting a call back 04/25/2024 Encounter Details Date Type Department Care Team (Late st Contact Info) Description 04/25/2024 Telephone [facility] MEDICINE [address] [place], [place] [phone] [facility] [address] [place] [address] Requesting a call back Social History Tobacco [...] 10:40 AM EST TC placed to patient [phone] to clarify below message. Patient informed she [...] back to clarify. Please contact pt at [phone] documented in this encounter Plan of Treatment Upcoming Encounters Date Type Department Care Team (Late st Contact Info) Description 05/16/2024 9:30 AM EST Procedure Visit [facility] MED & PEDS [address] [place] [address] Lexi Thomson CNM [address] [place] [address] documented as of this encounter Visit Diagnoses Not on filedocumented in this encounter Additional Health Concerns Assessment Noted Time PHQ-9 Depression Total Score: 0 04/24/19 25 10:11 AM EST documented as of this encounter Care Teams Wholesale Agronomist Relationship Specialty Start Date End Date Ashanti August FNP [address] [place] [address] PCP - General Family Medicine 11/24/21 Jeff Villarreal FNP [address] [place] [address] Nurse Practitioner Family Medicine 02/20/23 documented as of this encounter
--- OUTSIDE RECORDS SUMMARY | 2024-05-01 15:58 | XMS_ITS | Encounter Summary ---
Author Organization [employer] Address [address] [place] [address] 7 [place] [address] Care Team Providers Care Is Consultant Name Role Phone [facility] Primary Care Provider [phone] [facility] Unavailable Unavailable Reason for Visit * Reason Onset Date Comments chart prep 04/23/2024 Encounter Details Date Type Department Care Team (Late st Contact Info) Description 04/23/2024 Telephone [facility] MEDICINE [address] [place] [address] [facility] [address] [place] [address] chart prep Social History Tobacco Use Types [...] Upcoming Encounters Date Type Department Care Team ([facility] st Contact Info) Description 05/16/2024 9:30 AM EST Procedure Visit [facility] MED & PEDS [address] [place] [address] Lexi Thomson, [place] [address] [place] [address] documented as of this encounter Visit Diagnoses Not on filedocumented in this encounter Additional Health Concerns Assessment Noted Time PHQ-9 Depression Total Score: 0 12/20/19 24 10:36 AM EDT documented as of this encounter Care Teams Is Consultant Relationship Specialty Start Date End Date Ashanti August FNP [address] [place] [address] PCP - General Family Medicine 11/24/21 Jeff Villarreal FNP [address] [place] [address] Nurse Practitioner Family Medicine 02/20/23 documented as of this encounter
--- OUTSIDE RECORDS SUMMARY | 2024-05-01 15:58 | XMS_ITS | Encounter Summary ---
Author Organization [employer] Address [address] [place] [address] 7 [place] [address] Care Team Providers Care Reading Coach Name Role Phone Mata Ashanti [facility] Primary Care Provider [phone] Jeff Villarreal Unavailable Unavailable Encounter Details Date Type Department Care Team (Late Contact Info) Description 03/24/2022 Orders Only [facility] [address] [place], [place] [phone] Isabel Escalante LPN Social History Tobacco Use [...] Description 05/16/2024 9:30 AM EST Procedure Visit [facility] MED & PEDS [address] [place], [place] [phone] Lexi Thomson CNM [address] [place] [address] documented as of this encounter Visit Diagnoses Not on filedocumented in this encounter Care Teams Reading Coach Relationship Specialty Start Date End Date Ashanti August FNP [address] [place] [address] PCP - General Family Medicine 11/24/21 Jeff Villarreal FNP [address] [place] [address] Nurse Practitioner Family Medicine 02/20/23 documented as of this encounter
--- OUTSIDE RECORDS SUMMARY | 2024-05-01 15:58 | XMS_ITS | Clinical Summary ---
Author Organization [facility] Address [address] [place] [address] Care Team Providers Care Imaging Technician Name Role Phone Suri Diamond GABBY Primary [...] Plan of Treatment Not on file Insurance [facility] Mast[employer] C PLAN Member Subscriber Plan / Payer (Ef fective 2013-Present) Name:Rusty Salmeronlia Relation to Subscriber:Self Name:Rusty Salmeronlia Payer ID:[id number] Group ID:[id number] Type:Medicaid Address: [facility] [address] [place] [address] Care Teams Imaging Technician Relationship Specialty Start Date End Date Suri Diamond NP PCP - General Family Medicine KNOWLEDGE ENGINEER 12/17/12
--- OUTSIDE RECORDS SUMMARY | 2024-05-01 15:58 | XMS_ITS | Encounter Summary ---
Author Organization [employer] Address [address] [place] [address] 7 [place] [address] Care Team Providers Care Creche Attendant Name Role Phone [facility] Primary Care Provider [phone] Jeff Villarreal [facility] Unavailable Unavailable Reason for Visit * Reason Comments Follow-up Encounter Details Date Type Department Care Team (Late st Contact Info) Description 04/24/2024 10:00 AM EST Office Visit [facility] MEDICINE [address] [place], [place] [phone] [facility] [address] [place], [place] [phone] Type 2 diabetes mellitus with stage 4 chronic kidney disease, without long-term current use of insulin ([facility]) (Primary Dx); Overweight; Cervical radiculopathy; Dietary counseling; [...] documented in this encounter Progress Notes * [facility], CROSS CUT SAW OPERATOR - 04/24/2024 10:00 AM EST SUBJECTIVE: [...] from 03/05/2024 with the following impression. Neurosurgery [facility] consult was placed. Today reports symptoms worsening. [...] Current living environment: Lives with . Has STEVEDORING SUPERVISOR and VNA services Children: Yes Patient Active [...] seizure-like activity (CMS/HCC) Chronic obstructive pulmonary disease ([facility]) Past Surgical History: Procedure Laterality Date CERVICAL [...] without long- term current use of insulin ([facility]) (Primary) Lab Results Component Value Date HGBA1C [...] contact contact information for neurology [facility]. - Will trial gabapentin 3 times daily [...] or split. 90 tablet 3 Continuous Glucose Log Cooker (FreeStyle Zeke [address] [place]) device Use as directed 1 each 0 [...] facility-administered medications on file prior to visit. Faroese Translation: Patient is bilingual and declines translation services documented in this encounter Plan of Treatment Upcoming Encounters Date Type Department Care Team (Late st Contact Info) Description 05/16/2024 9:30 AM EST Procedure Visit [facility] PEDS [address] [place] [address] Lexi Thomson CNM [address] [facility] [place] [address] documented as of this encounter Procedures Procedure Name Priority Date/Time Associated Diagnosis Comments POCT GLYCATED HEMOGLOBIN, TOTAL Routine 04/24/2024 10:15 AM EST Type 2 diabetes mellitus with stage 4 chronic kidney disease, without long-term current use of insulin ([facility]) POCT GLUCOSE Routine 04/24/2024 10:15 AM EST Type 2 diabetes mellitus with stage 4 chronic kidney disease, without long-term current use of insulin ([facility]) documented in this encounter Results * POCT Glucose (04/24/2024 10:15 AM EST) Glucose Blood, POC 146 60 - 200 mg/dL Blood Capillary blood specimen / Unknown 04/24/2024 10:15 AM EST [facility] POINT OF CARE TEST ENTER/EDIT ORDERABLES Final Result * (ABNORMAL) POCT HGB A1C (04/24/2024 10:15 AM EST) Hemoglobin A1C 6.8(A) 4.0 - 6.0 % QC Media Lot # [id number] Lot# Expiration Date Blood 04/24/2024 10:1 5 AM EST [facility] POINT OF CARE TEST ENTER/EDIT ORDERABLES Final Result documented in this encounter Visit Diagnoses Diagnosis Type 2 diabetes mellitus with stage 4 chronic kidney disease, without long-term current use of insulin ([facility])- Primary Overweight Cervical radiculopathy Brachial neuritis or radiculitis nos Dietary counseling Dietary surveillance and counseling Exercise counseling documented in this encounter Additional Health Concerns Assessment Noted Time PHQ-9 Depression Total Score: 0 04/24/19 25 10:11 AM EST documented as of this encounter Care Teams Creche Attendant Relationship Specialty Start Date End Date Ashanti August FNP [address] [place] [address] PCP - General Family Medicine 11/24/21 Jeff Villarreal FNP [address] [place] [address] Nurse Practitioner Family Medicine 02/20/23 documented as of this encounter
--- OUTSIDE RECORDS SUMMARY | 2024-05-01 15:58 | XMS_ITS | Encounter Summary ---
Author Organization [employer] Address [address] [place] [address] 7t [place] [address] Care Team Providers Care Cigarette Filter Inspector Name Role Phone Ashanti August SPEED BELT SANDER Primary Care Provider [phone] Jeff Villarreal SPEED BELT SANDER Unavailable Unavailable Encounter Details Date Type Department Care Team ([facility] Contact Info) Description 09/20/2022 Orders Only [facility] MED & PEDS [address] [place] [address] Elizabeth Meadows LPN Social History Tobacco Use [...] [facility]ED[facility] [address] [place] [address] Lexi Thomson CNM [address] [place] [address] documented as of this encounter Visit Diagnoses Not on filedocumented in this encounter Additional Health Concerns Assessment Noted Time PHQ-9 Depression Total Score: 13 023 2:44 PM EST documented as of this encounter Care Teams Cigarette Filter Inspector Relationship Specialty Start Date End Date Ashanti August FNP [address] [place] [address] PCP - General Family Medicine 11/24/21 Jeff Villarreal FNP [address] [place] [address] Nurse Practitioner Family Medicine 02/20/23 documented as of this encounter
--- OUTSIDE RECORDS SUMMARY | 2024-05-01 15:58 | XMS_ITS | Encounter Summary ---
Author Organization [employer] Address [address] [place] [address] 7t [place] [address] Care Team Providers Care Vp Securities Name Role Phone Ashanti August [facility] Primary Care Provider [phone] Jeff Villarreal [facility] Unavailable Unavailable Encounter Details Date Type Department [...] Description 05/16/2024 9:30 AM EST Procedure Visit [facility] MED & PEDS [address] [place] [address] Lexi Thomson CNM [address] [place] [address] documented as of this encounter Visit Diagnoses Not on filedocumented in this encounter Additional Health Concerns Assessment Noted Time PHQ-9 Depression Total Score: 0 04/24/19 25 10:11 AM EST documented as of this encounter Care Teams Vp Securities Relationship Specialty Start Date End Date Ashanti August FNP [address] [place] [address] PCP - General Family Medicine 11/24/21 Jeff Villarreal FNP [address] [place] [address] Nurse Practitioner Family Medicine 02/20/23 documented as of this encounter
--- OUTSIDE RECORDS SUMMARY | 2024-05-01 15:58 | XMS_ITS | Encounter Summary ---
Author Organization [employer] Address [address] [place] [address] 7 [place] [address] Care Team Providers Care Maintainer Sewer And Waterworks Name Role Phone [facility] Primary Care Provider [phone] Jeff Villarreal [facility] Unavailable Unavailable Reason for Visit * Reason Onset Date Comments Durable Medical Equipment 06/23/2022 Encounter Details Date Type Department Care Team (Late st Contact Info) Description 06/23/2022 Telephone [facility] MEDICINE [address] [place], [place] [phone] [facility] [address] [place] [address] Durable Medical Equipment Social History Tobacco Use [...] and a electrical scooter. Please contact at [phone] documented in this encounter Plan of Treatment Upcoming Encounters Date Type Department Care Team (Late st Contact Info) Description 05/16/2024 9:30 AM EST Procedure Visit [facility] PEDS [address] [place] [address] Lexi Thomson CNM [address] [place] [address] documented as of this encounter Visit Diagnoses Not on filedocumented in this encounter Additional Health Concerns Assessment Noted Time PHQ-9 Depression Total Score: 13 023 2:44 PM EST documented as of this encounter Care Teams Maintainer Sewer And Waterworks Relationship Specialty Start Date End Date Ashanti August FNP [address] [place] [address] PCP - General Family Medicine 11/24/21 Jeff Villarreal FNP [address] [place] [address] Nurse Practitioner Family Medicine 02/20/23 documented as of this encounter
--- OUTSIDE RECORDS SUMMARY | 2024-05-01 15:59 | XMS_ITS | Clinical Summary ---
Author Organization [employer] Address [address] [place] [address] 7 [place] [address] Care Team Providers Care Butcher Apprentice Name Role Phone Ashanti August [facility] Primary Care Provider Jeff Villarreal IRONING WORKER Unavailable Unavailable Allergies Active Allergy Reactions Criticality [...] s:Chronic obstructive pulmonary disease, unspecified COPD type ([facility]) INHALE 1 PUFF BY MOUTH EVERY DAY AT THE SAME TIME 60 each Active glucose blood (FREESTYLE LITE) test stripIndications :Type 2 diabetes mellitus with other specified complication, without long-term current use of insulin ([facility]) USE TO TEST BLOOD SUGAR TWICE DAILY 100 each Active TRUEplus Lancets 33G miscIndications: Type 2 diabetes mellitus with other specified complication, without long-term current use of insulin ([facility]) USE TO TEST BLOOD SUGAR TWICE DAILY [...] disease, without long-term current use of insulin ([facility]) Inject 0.75 mg under the skin 1 (one) time per week. 4 each 11 Active D3 Super Strength 50 MCG (2000 UT) capsuleIndicatio ns:Vitamin D deficiency TAKE 2 CAPSULES BY MOUTH ONCE DAILY IN THE MORNING 180 capsule 3 Active glucose 4 g chewable tabletIndication s:Type 2 diabetes mellitus with stage 4 chronic kidney disease, without long-term current use of insulin (CMS/[facility]) Chew 4 tablets (16 g) if needed for low blood sugar. 50 tablet 12 024 2024 Active Continuous Glucose Sensor (FreeStyle Zeke 2 Sensor) miscIndications: Type 2 diabetes mellitus with stage 4 chronic kidney disease, without long-term current use of insulin (CMS/HCC),Hypogl ycemia Use as directed 2 each 3 Active Continuous Glucose Gold Letterer (FreeStyle Zeke 2 Dardanelle) deviceIndication s:Type 2 diabetes mellitus with stage [...] continuous 2l O2.Has lung CT screening pending [facility] Pulm Dr. Lam Witnessed seizure-like activity 08/18/2023 [...] and drug-disease interactions. This provider has consulted [facility] clinical pharmacist regarding medication safety. Patient had EKG at ED on 2023 which was normal. She will F/U with therapist at [facility] and has discussed the possibility of referral to their prescriber when this provider leaves the practice. However, since this provider will be retiring, patient will be referred to new psychiatric prescriber from [facility], contracted with [facility]. Reviewed with patient that new provider will be outside the [facility] organization and patient gives verbal consent to share information with provider. Any issues or concerns contact [facility]. All her questions were answered and I [...] q8 h prn anxiety. This provider consulted [facility] clinical pharmacist regarding medication safety. Patient had EKG at ED on 2023 which was normal. Provider will also consult patient's PCP about possibly changing her Atorvastatin 80 mg to alternative lipid med, as Atorvastatin can be associated with nightmares. She has started with new therapist at [facility] and has discussed the possibility of referral [...] She has started with new therapist at [facility] and has discussed the possibility of referral [...] 2019-NIL HPV neg-->repeat 2024 C-scope: Followed by [facility] GI BMD: Routine age 66 Memory impairment [...] ?? Early REAL cirrhosis ?? Followed by [facility] GI Dysphagia, pharyngoesophageal phase 10/25/2022 Overview (05/15/2023): 07/21 EGD showed gastritis and changes suggestive of esophageal motility disorder Colonoscopy showed moderate diverticulosis in the entire colon and hemorrhoids and no polyps 09/2019 A gastric emptying study was normal. Frequent falls 10/25/2022 Hyperkalemia 10/25/2022 Overview (05/15/2023): ?? Lisinopril discontinued 04/2022 Lumbar radiculopathy 10/25/2022 Overview (10/28/2022): ?? S/p multiple spinal surgeries through [facility] 09/2021 for cyst removal ?? Followed by [facility] pain mngmt NIURKA (obstructive sleep apnea) 10/25/2022 Pulmonary nodules 10/25/2022 Supplemental oxygen dependent 10/25/2022 Weak urinary stream 10/25/2022 Overview (10/28/2022): ?? Followed by [facility] urology ?? Bethanechol Tremor of both hands [...] 01/31/2024 Overview (10/28/2022): ?? S/p emergency surgery Neal 11/2021 ?? Now followed by [facility] GI Vascular insufficiency of intestine 11/24/2021 01/31/2024 Renal function test abnormal 02/11/2021 10/28/2022 Chronic obstructive lung disease 01/17/2021 12/19/2023 Overview (05/15/2023): ?? Trelegy ellipta ?? Albuterol PRN ?? Supplemental 02 ?? 35 pack year smoking hx ?? [facility] pulmonology History of total knee arthroplasty 02/09/2017 10/28/2022 Depressive disorder 02/20/2013 10/29/19 Assessment & Plan (09/20/2022 12:01 PM EDT): She's doing well, no panic attacks at this time, seems to be dealing well with her son's addiction. FU closely with psycho pharacology clinic. Current smoker 12/17/2012 10/28/2022 Encounters Date Type Department Care Team Description 04/29/2024 Orders Only [facility] External Provider, [facility] 04/25/2024 Telephone [facility] MEDICINE [address] [place] [address] Ashanti August FNP Requesting a call back 04/24/2024 10:00 AM EST Office Visit [facility] MEDICINE [address] [place] [address] Ashanti August FNP Type 2 diabetes mellitus with stage 4 chronic kidney disease, without long-term current use of insulin ([facility]) (Primary Dx); Overweight; Cervical radiculopathy; Dietary counseling; Exercise counseling 04/24/2024 Travel 04/23/2024 Telephone [facility] MEDICINE [address] [place] [address] Ashanti August FNP chart prep 04/12/2024 Patient Outreach [facility] MEDICINE [address] [place] [address] MataAshanti garcia FNP Pre-visit Planning (SDOH screening negative and tobacco screening negative) 04/02/2024 Telephone [facility] MEDICINE [address] [place] [address] MataAshanti garcia [facility] Medication Question 03/29/2024 Refill [facility] MEDICINE [address] [place] [address] [facility] hypertension 03/29/2024 Telephone [facility] MEDICINE [address] [place] [address] Heriberto العراقي, PharmD 03/29/2024 Refill [facility] MEDICINE [address] [place] [address] [facility] Primary hypertension 03/28/2024 Refill [facility] MEDICINE [address] [place] [address] [facility] Primary hypertension 03/28/2024 Refill [facility] MED & PEDS [address] [place] [address] Elizabeth Moss DO 03/22/2024 Travel 03/20/2024 Refill [facility] MEDICINE [address] [place] [address] [facility] Primary hypertension 03/08/2024 Telephone [facility] MEDICINE [address] [place] [place] [address] Brynn Quiñonez, RN Results 03/06/2024 Orders Only [facility] WALK-IN CENTER [address] [place] [address] DunnellAshanti [facility] Cervical stenosis of spinal canal (Primary Dx) 02/16/2024 Orders Only GENERIC EXTERNAL DATA DEPARTMENT Provider, Generic External Data 02/07/2024 2:20 PM EST Office Visit [facility] WALK-IN [address] [address] Vaishali Davis MD Urinary tract infection without hematuria, site unspecified (Primary Dx) 02/07/2024 Orders Only GENERIC EXTERNAL DATA DEPARTMENT Provider, Generic External Data 02/07/2024 Telephone [facility] MEDICINE [address] [place] [phone] DunnellAshanti [facility] Nurse Triage 01/31/2024 10:15 AM EDT Office Visit [address] [address] DunnellAshanti [facility] Type 2 diabetes mellitus with stage 4 chronic kidney disease, without long-term current use of insulin ([facility]) (Primary Dx); Hypoglycemia; Cervical radiculopathy; Encounter for immunization; Hypoglycemia unawareness associated with type 2 diabetes mellitus ([facility]) 01/31/2024 Telephone [facility] MEDICINE [address] [place] [phone] Lelo Giang RNparty planner 01/31/2024 Travel from Last 3 Months Immunizations [...] 9:30 AM EST Procedure Visit [facility] MED & PEDS [address] [place] [address] Lexi Thomson, CNM [address] [place] [address] Health Maintenance Due Date Last Done Comments [...] 5 Years) and At-Risk Patients (6 to 49) Years) Completed 11/17/2021 Influenza Vaccine Completed 12/20/2023, [...] Procedure Name Priority Date/Time Associated Diagnosis Comments XR CERVICAL SPINE 4V Routine 04/29/2024 2:13 PM EST POCT GLUCOSE Routine 04/24/2024 10:15 AM EST Type 2 diabetes mellitus with stage 4 chronic kidney disease, without long-term current use of insulin ([facility]) POCT GLYCATED HEMOGLOBIN, TOTAL Routine 04/24/2024 10:15 AM EST Type 2 diabetes mellitus with stage 4 chronic kidney disease, without long-term current use of insulin (CMS/HCC) MR CERVICAL SPINE WO CONTRAST Urgent 03/05/2024 [...] Recently Relevant to Health Maintenance Results * XR CERVICAL SPINE 4V (04/29/2024 2:13 PM EST) Anatomical Region Laterality Modality Abdomen Radiographic Miranda ging 04/29/2024 2:13 PM EST Narrative 04/30/2024 8:46 AM EST ? [facility] ? [address] ?[place] [address] ?XRay Report ? Signed ? Patient: Salmeron,Sharri ?MR#: [id number] ?? 703 ? : 1960 ?Acct:[id number] ? Age/Sex: 63 / F ?ADM Date: 04/29/24 ? Loc: HO.HOSX ? Attending Dr: Serge VILLAGOMEZ ? Ordering Physician: Serge Mckeon ?? Date of Service: 04/29/24 ?? Procedure(s): XR cervical spine 4V ?? Accession Number(s): [id number] ? cc: Serge Mckeon; [facility] ? EXAMINATION: ?? XR CERVICAL SPINE ? CLINICAL INFORMATION: ?? M43.12 - Spondylolisthesis, cervical region ? COMPARISON: ?? MRI cervical spine 03/05/2024. ? TECHNIQUE: ?? 6 views of the cervical spine, inclusive of flexion and extension ?? views, were obtained. ? FINDINGS: ?? There is straightening of cervical lordosis. There is ventral plate and ?? screws at from C4 through C5 or C4-5 disc fusion. There is loss of ?? C4-5, C5-6 and C6-7 disc heights. On flexion and extension views there ?? is no subluxation seen at the fused level or any of the other disc ?? levels. There is moderate ventral spondylosis at C6-7 disc level. No ?? aggressive lytic or sclerotic process seen. The prevertebral and ?? paravertebral soft tissues are normal. ? XR/XR cervical spine 4V ?? IMPRESSION: ?? Disc fusion C4-C5 disc level with ventral plate and screws. ? Degenerative disc changes C5-6, C6/7 and C7-T1 disc levels. ? No subluxation seen on flexion-extension views at the fused level or ?? other cervical disc levels. ? Electronically signed by: ??Herminio Kellogg MD ??04/30/2024 08:43 AM EST RP ? Dictated By: ?Herminio Kellogg MD ? Signed By: ?<Electronically signed by Herminio Kellogg MD in OV> ?04/30/24 0843 ? DD/ 1413 ? TD/TT: 04/29/24 1415 ? Metal Window Frame Maker: MSM ? Procedure Note Donjanet, Image - 04/30/2024 [facility] [address] [place] [address] [address] [place] [address] XRay Report Signed Patient: Allyson Salmeron#: [id number] 703 : 1960cct:[id number] Age/Sex: 63 / FADM Date: 04/29/24 Loc: MAGALY Attending Dr: Serge VILLAGOMEZ Ordering Physician: Serge Mckeon Date of Service: 04/29/24 Procedure(s): XR cervical spine 4V Accession Number(s): [id number] cc: Serge Mckeon; [facility] EXAMINATION: XR CERVICAL SPINE CLINICAL INFORMATION: M43.12 - Spondylolisthesis, cervical region COMPARISON: MRI cervical spine 03/05/2024. TECHNIQUE: 6 views of the cervical spine, inclusive of flexion and extension views, were obtained. FINDINGS: There is straightening of cervical lordosis. There is ventral plate and screws at from C4 through C5 or C4-5 disc fusion. There is loss of C4-5, C5-6 and C6-7 disc heights. On flexion and extension views there is no subluxation seen at the fused level or any of the other disc levels. There is moderate ventral spondylosis at C6-7 disc level. No aggressive lytic or sclerotic process seen. The prevertebral and paravertebral soft tissues are normal. XR/XR cervical spine 4V IMPRESSION: Disc fusion C4-C5 disc level with ventral plate and screws. Degenerative disc changes C5-6, C6/7 and C7-T1 disc levels. No subluxation seen on flexion-extension views at the fused level or other cervical disc levels. Electronically signed by: Herminio Kellogg MD 04/30/2024 08:43 AM EST RP Dictated By: Herminio Kellogg MD Signed By: <Electronically signed by Herminio Kellogg MD in OV> 04/30/24 0843 DD/ 1413 TD/TT: 04/29/24 1415 Metal Window Frame Maker: [facility] External Provider IMG XR PROCEDURES Final Result * (ABNORMAL) POCT HGB A1C (04/24/2024 10:15 AM EST) Only the most recent of2 resultswithin the time period is included. Hemoglobin A1C 6.8(A) 4.0 - 6.0 % QC Media Lot # [id number] Lot# Expiration Date ,173 Blood 04/24/2024 10:1 5 AM EST [facility] POINT OF CARE TEST ENTER/EDIT ORDERABLES Final Result * POCT Glucose (04/24/2024 10:15 AM EST) Only the most recent of2 resultswithin the time period is included. Glucose Blood, POC 146 60 - 200 mg/dL Blood Capillary blood specimen / Unknown 04/24/2024 10:15 AM EST [facility] IRONING WORKER POINT OF CARE TEST ENTER/EDIT ORDERABLES Final Result * MR Cervical Spine w/o Contrast (03/05/2024 10:06 AM EST) Anatomical Region Laterality Modality Spine, C-spine Magnetic Resonan ce 03/05/2024 10:0 6 AM EST Narrative 03/05/2024 1:45 PM EST ? [facility] ?[address] ?[place] [address] ? Magnetic Resonance Report ? Signed ? Patient: Salmeron,Sharri ?MR#: [id number] ?? 703 ? : 1960 ?Acct:[id number] ? Age/Sex: 63 / F ?ADM Date: 03/05/24 ? Loc: HO.MRI ? Attending Dr: Ashanti PAREDES ? Ordering Physician: Ashanti August ?? Date of Service: 03/05/24 ?? Procedure(s): MR cervical spine wo con ?? Accession Number(s): [id number] ? cc: Ashanti August ? EXAMINATION: ?? [...] DD/ 1006 ? TD/TT: 03/05/24 1030 ? Metal Window Frame Maker: ? Procedure Note Gerson Carrion - 03/05/2024 [place] [address] Magnetic Resonance Report Signed Patient: Allyson Salmeron#: [id number] 703 : 1960cct:[id number] Age/Sex: 63 / FADM Date: 03/05/24 Loc: HO.MRI Attending Dr: Ashanti August IRONING WORKER Ordering Physician: Ashanti August Date of Service: 03/05/24 Procedure(s): MR cervical spine wo con Accession Number(s): [id number] cc: Ashanti August EXAMINATION: MR CERVICAL SPINE [...] by: Vale Flowers MD 03/05/2024 01:42 PM [facility] Dictated By: Vale Flowers MD Signed By: <Electronically signed by Vale Flowers MD in OV> 03/05/24 1342 DD/ 1006 TD/TT: 03/05/24 1030 Metal Window Frame Maker: [facility] IMG MRI PROCEDURES Final Resu lt * (ABNORMAL) Liver Fibrosis (HCV), FibroTest-ActiTest Panel (02/16/2024 9:18 AM EST) Liver Fibrosis Score 0.65 [facility] Liver Fibrosis Stage F3 [facility] Liver Fibrosis Interpretation SEE NOTE [facility] Comment:advanced fibrosisFib ro Test Score (f) Metavir Score f>=0 and f<=0.21 : F0 (no fibrosis)f>0.21 and f<=0.27 : F0-F1 (no fibrosis)f>0.27 and f<=0.31 : F1 (minimal fibrosis)f>0.31 and f<=0.48 : F1-F2 (minimal fibrosis)f>0.48 and f<=0.58 : F2 (moderate fibrosis)f>0.58 and f<=0.72 : F3 (advanced fibrosis)f>0.72 and f<=0.74 : F3-F4 (advanced fibrosis)f>0.74 and f<=1.00 : F4 (severe fibrosis) Nec Inflam Act Score 0.10 [facility] Nec Inflam Act Grade A0 [facility] Nec Inflam Act Interpretation SEE NOTE [facility] Comment:no activityActiTest Score (a) Metavir Score a>=0 and a<=0.17 : A0 (no activity)a>0.17 and a<=0.29 : A0-A1 (no activity)a>0.29 and a<=0.36 : A1 (minimal activity)a>0.36 and a<=0.52 : A1-A2 (minimal activity)a>0.52 and a<=0.60 : A2 (significant activity)a>0.60 and a<=0.62 : A2-A3 (significant activity)a>0.62 and a<=1.00 : A3 (severe activity) KSU-Ctmzi-6-Macroglo bulin 348(A) 106 - 279 mg/dL [facility] FIB-Haptoglobin 372(A) 43 - 212 mg/dL [facility] Comment:This value is highly elevated over the 99 percentile. Checkthe value and the absence of sepsis. Usual maximum value is320.0 mg/dl. FIB-Apolipoprotein A1 129 101 - 198 mg/dL [facility] FIB-Total Bilirubin 0.7 0.2 - 1.2 mg/dL [facility] FIB-GGT 228(A) 3 - 65 U/L [facility] FIB-ALT 17 6 - 29 U/L [facility] Reference ID [id number] [facility] Footnote SEE NOTE [facility] Comment: The reliability of results is [...] and C.The performance characteristics have been determined by[employer] [facility]. Ithas not been cleared or approved by the U.S. Food and DrugAdministration. Performance characteristics refer to theanalytical performance of the test.TRData, the associated logo, [employer] and all associated [employer] edwards are theregistered trademarks of [employer]. All third partymarks - (R) and (TM) - are the property of their respectiveowners. (C) [id number] [employer]. Allrights reserved.THIS TEST WAS PERFORMED AT:[employer] [id number] [facility] [place] [place] ??[id number] JACKSON MD,PHD,CONNER 02/16/2024 9:18 AM EST 02/16/2024 9:18 AM EST us Generic External Data Provider LAB BLOOD ORDERAB LES Final Result Performing Organization Address City/[facility]/ZIP Co de Phone Number [facility] [address] [place] [phone] [phone] * (ABNORMAL) Comprehensive Metabolic Panel (02/16/2024 9:18 AM EST) Sodium 138 135 - 145 mmol/L [facility] Potassium 3.4 3.3 - 5.1 mmol/L [facility] Chloride 102 96 - 108 mmol/L [facility] Carbon Dioxide 28 22 - 29 mmol/L [facility] Anion Gap 11(L) 12 - 20 [facility] Urea Nitrogen (BUN) 9 9 - 16 mg/dL [facility] Creatinine, Serum 0.89 0.5 - 1.4 mg/dL [facility] Estimated Glomerular Filt Rate >60 [facility] Comment:Chronic Kidney Disea se: Estimated GFR < 60 mL/min/1.87b6Qklrza Kidney Disease: Estimated GFR < 15 mL/min/1.73m2 Glucose 113 60 - 115 mg/dL [facility] Calcium 9.9 8.4 - 10.2 mg/dL [facility] Bilirubin, Total 0.8 0.0 - 1.0 mg/dL [facility] Aspartate Amino Transferase 54(H) 5 - 31 U/L [facility] Alanine Aminotransferase 22 0 - 31 U/L [facility] Total Protein 8.2(H) 6.5 - 8.0 g/dL [facility] Albumin Level 4.2 3.5 - 5.0 g/dL [facility] Alkaline Phosphatase 203(H) 39 - 117 U/L [facility] 02/16/2024 9:18 AM EST 02/16/2024 9:18 AM EST us Generic External Data Provider LAB BLOOD ORDERAB LES Final Result [facility] [address] [place] [address] [phone] * CT Abdomen Pelvis w/o Contrast (02/07/2024 7:11 PM EST) Anatomical Region Laterality Modality Body, Pelvis, Abdomen Computed T omography 02/07/2024 7:11 PM EST Narrative 02/07/2024 10:15 PM EST ? [facility] ?[address] ?[place] [address] ? CT Scan Report ? Signed ? Patient: Salmeron,Sharri ?MR#: [id number] ?? 703 ? : 1960 ?Acct:[id number] ? Age/Sex: 63 / F ?ADM Date: 02/07/24 ? Loc: HO.ED ? Attending Dr: ? Ordering Physician: Fara Malhotra ?? Date of Service: 02/07/24 ?? Procedure(s): CT abdomen pelvis wo IV con ?? Accession Number(s): [id number] ? cc: Fara Malhotra; Ashanti August ? [...] Colón MD in OV> ?02/07/242211 ? DD/ 1911 ? TD/TT: 02/07/24 1911 ? Metal Window Frame Maker: HB ? Procedure Note Donotuseinterpreter, Image - 02/07/[address] [address] [address] Scan Report Signed Patient: Allyson Salmeron#: [id number] 703 : 1960cct:[id number] Age/Sex: 63 / FADM Date: 02/07/24 Loc: HO.ED Attending Dr: Ordering Physician: Fara Malhotra Date of Service: 02/07/24 Procedure(s): CT abdomen pelvis wo IV con Accession Number(s): [id number] cc: Fara Malhotra; [facility] IRONING WORKER EXAMINATION: CT ABDOMEN AND PELVIS WITHOUT CONTRAST [...] in OV> 02/07/242211 DD/ 10 TD/TT: 02/07/241910 Metal Window Frame Maker: [facility] External Provider IMG CT PROCEDURES Edited Result - Final * (ABNORMAL) Urinalysis, Complete, with Reflex to Culture (02/07/2024 6:14 PM EST) Color Urine Dark Yellow [facility] Appearance Urine Cloudy [facility] PH 5.5 5.0 - 9.0 [facility] Glucose Urine UA Negative Negative mg/dL [facility] Urine Blood Negative Negative [facility] Specific Walling - Urine 1.015 1.005 - 1.025 [facility] Urine Protein 30 (1+)(A) Neg-Trace mg/dL [facility] Urine Ketones Negative Negative mg/dL [facility] Nitrite Urine Negative Negative [facility] Leukocyte Esterase Urine Large (3+)(A) Negative [facility] RBC Urine 0-2 0 - 2 /HPF [facility] Urine WBC 6-10 0 - 5 /HPF [facility] Urine Squamous Epithelial Cell 3-5 0 - 2 /HPF [facility] Urine Bacteria None Seen None Seen [facility] Hyaline Casts, Urine 3-5 0 - 2 /LPF [facility] 02/07/2024 6:14 PM EST 02/07/2024 6:20 PM EST Narrative [facility] - 02/07/2024 6:44 PM EST [id number], Clean Catch Generic External Data Provider LAB URINE ORDERAB LES Final Result Performing Organization Address City/[facility]/ZIP Co de Phone Number [facility] [address] [place] [phone] * Culture, Urine, Routine (02/07/2024 12:00 AM EST) Urine Urine specimen obtained by clean catch procedure / Unknown 02/07/2024 02/07/2024 Comment:[facility] Narrative [facility] - 02/09/2024 10:26 AM EST Urine Culture Report Result Urine Culture < 10,000 cfu/ml Specimen Source: Urine clean catch Generic External Data Provider LAB MICROBIOLOGY - GENERAL ORDERABLES Final Result Performing Organization Address City/[facility]/ZIP Co de Phone Number [facility] [address] [place] [phone] * BI Mammogram Screening Tomosynthesis Bilateral (09/01/2023 8:16 AM EDT) Anatomical Region Laterality Modality Breast Bilateral Mammography 09/01/2023 8:16 AM EDT Narrative 09/26/2023 4:37 PM EDT ? [facility] ? [address] ?[place] [address] ? Mammography Report ? Signed ? Patient: Salmeron,Sharri ?MR#: [id number] ?? 703 ? : 1960 ?Acct:[id number] ? Age/Sex: 63 / F ?ADM Date: 09/01/23 ? Loc: HO.MAMMO ? Attending Dr: Ashanti August IRONING WORKER ? Ordering Physician: Ashanti August IRONING WORKER ?Results: 1Nega ?? tive ? Date of Service: 09/01/23 ?Follow Up: 1 Year From Orig ?? inal Mammogram ? Procedure(s): MM tomosynthesis screening BI ?? Accession Number(s): [id number] ? cc: Ashanti August IRONING WORKER ? EXAMINATION: ?? MM SCREENING DIGITAL BREAST [...] in OV> ? 09/26/23 1634 ? DD/ 0816 ? TD/TT: ? Metal Window Frame Maker: ? Procedure Note Sheyla, Image - 09/26/2023 [place] [facility] [address] [place] [address] Mammography Report Signed Patient: Allyson Salmeron#: [id number] 703 : 2Acct:[id number] Age/Sex: 63 / FADM Date: 09/01/23 Loc: HO.MAMMO Attending Dr: Ashanti August IRONING WORKER Ordering Physician: Ashanti August FNPResults: 1Nega tive Date of Service: 09/01/23Follow Up: 1 Year From Orig inal Mammogram Procedure(s): MM tomosynthesis screening BI Accession Number(s): [id number] cc: Ashanti August IRONING WORKER EXAMINATION: MM SCREENING DIGITAL BREAST TOMOSYNTHESIS, BILATERAL [...] in OV> 09/26/23 1634 DD/ 0816 TD/TT: Metal Window Frame Maker: [facility] IRONING WORKER IMG BI PROCEDURES Final Resul t * (ABNORMAL) Lipid Panel, Standard (05/08/2023 11:13 AM EST) Triglycerides 274(H) <150 mg/dL [facility] Comment:Desirable Triglyceri de: less than 150 mg/dLBorderline High Triglyceride 150-199 mg/dLHigh Triglyceride: 200-499 mg/dLVery High Triglyceride: greater than or equal to 5OO mg/dL Cholesterol 230(H) <200 mg/dL [facility] Comment:Desirable Cholestero l: less than 200 mg/dLBorderline High Cholesterol: 200-239 mg/dLHigh Cholesterol: greater than 239 mg/dL LDL Cholesterol Calculated 130(H) <100 mg/dL [facility] Comment:Desirable LDL: less than 100 mg/dLNear Optimal/Above Optimal LDL: 110- 129 mg/dLBorderline High LDL: 130-159 mg/dLHigh LDL: 160-189 mg/dLVery High LDL: greater than or equal to 190 mg/dL HDL Cholesterol 46 >40 mg/dL [facility] Comment:Desirable HDL: great er than 40 mg/dL Note: This HDL assay may give artificially low results in patients with liver disease. Blood Venous blood specimen / Unknown 05/08/2023 11:13 AM EST 05/08/2023 1:10 PM EST [facility] IRONING WORKER LAB BLOOD ORDERABLES Final Re sult [facility] [address] [place] [address] [phone] * HEPATITIS C AB W/REFL TO HCV RNA, QN, PCR (09/08/2021 9:52 AM EDT) HEPATITIS C ANTIBODY NON-REACT [place] NON-REACT [place] [facility] INDEX 0.04 <1.00 [facility] Comment: ?? HCV antibody was non-reactive. There is no laboratory ?? evidence of HCV infection. ?? In most cases, no further action is required. However, if recent HCV exposure is suspected, a test for HCV RNA (test code 07215) is suggested. ?? For additional information please refer to http://Moreboats.dotHIV/faq/KZJ02t8 (This link is being provided for informational/ educational purposes only.) ?? 09/08/2021 9:52 AM EDT Micaela Hernandez AIRCRAFT ENGINE SPECIALIST HISTORICAL/NON ORDERABLE LABS F inal Result [facility] [address] * HIV 1/2 ANTIGEN/ANTIBODY,FOURTH GENERATION W/RFL (09/08/2021 9:52 AM EDT) HIV-1/2 ANTIGEN AND ANTIBODIES, 4TH GENERATION W/ REFLEX NON-REACT [place] NON-REACT [place] [facility] Comment: HIV-1 antigen and HIV-1/HIV-2 [...] ? For additional information please refer to http://Moreboats.dotHIV/faq/ADO222 (This link is being provided for informational/ educational purposes only.) ? The performance of this assay has not been clinically validated in patients less than 2 years old. ?? 09/08/2021 9:52 AM EDT Micaela Hernandez AIRCRAFT ENGINE SPECIALIST LAB BLOOD ORDERABLES Final Resu lt [facility] [address] [place] [address], * Hm Colonoscopy (07/30/2019) Colonoscopy Normal Normal Narrative Marta Adam - 07/30/2019 Repeat in 3 years Historical Provider MD HEALTH MAINTENANCE Final Result * HPV mRNA E6/E7 (05/16/2019 10:37 AM EST) HPV mRNA E6/E7 Not Detected NOT DETECTED [facility] Comment: This test was performed using the APTIMA(R) HPV Assay ([employer] This assay detects E6/E7 viral messenger RNA (mRNA) from 14 high-risk HPV types (16,18,31,33,35,39,45,51, 52,56,58,59,66,68). For additional information please refer to: http://Moreboats.[employer] (Inspect Manager).Cyrba/faq/QCU386o7 (This link is being provided for informational/ educational purposes only.) The analytical performance characteristics of this assay have been determined by [employer] [place], [place]. The modifications have not been cleared or approved by the FDA. This assay has been validated pursuant to the CLIA regulations and is used for clinical purposes. Test Performed by [employer], [employer], [address] [place] [address] Bird Barber M.D., Ph.D., Director of Laboratories , CLIA [id number] Please note: ??Effective 12/14/2015, HPV testing will be performed using [employer]'s APTIMA test which targets mRNA. Detecting mRNA instead of DNA, as in older methods, offers significant improvements in specificity. 05/16/2019 10:3 7 AM EST us Lexi Thomson CNM HISTORICAL/NON ORDERABLE LABS Final Result [facility] [address] from Last 3 Months or Most Recently Relevant to Health Maintenance Insurance [facility] Care Teams Butcher Apprentice Relationship Specialty Start Date End Date Ashanti August FNP [address] [place] [address] PCP - General Family Medicine 11/24/21 Jeff Villarreal FNP [address] [place] [address] Nurse Practitioner Family Medicine 02/20/23
--- OUTSIDE RECORDS SUMMARY | 2024-05-01 15:59 | XMS_ITS | Encounter Summary ---
Author Organization [employer] Address [address] [place] [address] 7 [place] [address] Care Team Providers Care Residential Building Inspector Name Role Phone [facility] Primary Care Provider [phone] Jeff Villarreal [facility] Unavailable Unavailable Reason for Visit * Reason Comments Med Refill Encounter Details Date Type Department Care Team ([facility] st Contact Info) Description 03/28/2024 Refill [facility] [address] [place] [address] [facility] [address] [place], [place] [phone] Primary hypertension Social History Tobacco Use Types [...] 9:30 AM EST Procedure Visit [facility] [address] [place] [address] Lexi Thomson CNM [address] [place] [address] documented as of this encounter Visit Diagnoses Diagnosis Primary hypertension Unspecified essential hypertension documented in this encounter Additional Health Concerns Assessment Noted Time PHQ-9 Depression Total Score: 0 12/20/19 24 10:36 AM EDT documented as of this encounter Care Teams Residential Building Inspector Relationship Specialty Start Date End Date Ashanti August FNP [address] [place] [address] PCP - General Family Medicine 11/24/21 Jeff Villarreal FNP [address] [place] [address] Nurse Practitioner Family Medicine 02/20/23 documented as of this encounter
--- OUTSIDE RECORDS SUMMARY | 2024-05-01 15:59 | XMS_ITS | Encounter Summary ---
Author Organization [employer] Address [address] [place] [address] 7 [place] [address] Care Team Providers Care Business Intelligence Architect Name Role Phone [facility] Primary Care Provider [phone] Jeff Villarreal [facility] Unavailable Unavailable Reason for Visit * Reason Onset Date Comments Nurse Triage 02/07/2024 Encounter Details Date Type Department Care Team (Late st Contact Info) Description 02/07/2024 Telephone [facility] MEDICINE [address] [place] [address] [facility] [address] [place] [address] Nurse Triage Social History Tobacco Use Types [...] advised to come to WIC at the [facility] today for provider to check urine for [...] caller accepted this outcome. Contact pt at [phone] documented in this encounter Plan of Treatment Upcoming Encounters Date Type Department Care Team ([facility] st Contact Info) Description 05/16/2024 9:30 AM EST Procedure Visit [facility] [address] [place] [address] Lexi Thomson CNM [address] [place] [address] documented as of this encounter Visit Diagnoses Not on filedocumented in this encounter Additional Health Concerns Assessment Noted Time PHQ-9 Depression Total Score: 0 12/20/19 10:36 AM EDT documented as of this encounter Care Teams Business Intelligence Architect Relationship Specialty Start Date End Date Ashanti August FNP [address] [place] [address] PCP - General Family Medicine 11/24/21 Jeff Villarreal FNP [address] [place] [address] Nurse Practitioner Family Medicine 02/20/23 documented as of this encounter
--- OUTSIDE RECORDS SUMMARY | 2024-05-01 15:59 | XMS_ITS | Encounter Summary ---
Author Organization [employer] Address [address] [place] [address] 7 [place] [address] Care Team Providers Care Vp Analysis Name Role Phone [facility] Primary Care Provider [phone] Jeff Villarreal [facility] Unavailable Unavailable Reason for Visit * Reason Comments Med Refill Encounter Details Date Type Department Care Team ([facility] st Contact Info) Description 03/29/2024 Refill [facility] MEDICINE [address] [place] [address] [facility] [address] [place], [place] [phone] Primary hypertension Social History Tobacco Use Types [...] [facility] [address] [place] [address] Lexi Thomson CNM [address] [place] [address] documented as of this encounter Visit Diagnoses Diagnosis Primary hypertension Unspecified essential hypertension documented in this encounter Additional Health Concerns Assessment Noted Time PHQ-9 Depression Total Score: 0 12/20/19 24 10:36 AM EDT documented as of this encounter Care Teams Vp Analysis Relationship Specialty Start Date End Date Ashanti August FNP [address] [place] [address] PCP - General Family Medicine 11/24/21 Jeff Villarreal FNP [address] [place] [address] Nurse Practitioner Family Medicine 02/20/23 documented as of this encounter
--- OUTSIDE RECORDS SUMMARY | 2024-05-01 15:59 | XMS_ITS | Encounter Summary ---
Author Organization [employer] Address [address] [place] [address] 7t [place] [address] Care Team Providers Care Engineering Officer Name Role Phone Ashanti August COLD STORAGE SUPERVISOR Primary Care Provider [phone] Jeff Villarreal COLD STORAGE SUPERVISOR Unavailable Unavailable Encounter Details Date Type Department Care Team (Late st Contact Info) Description 02/16/2023 Abstract [facility] MED[facility] [address] [place] [address] Marta Adam Social History Tobacco Use Types [...] 9:30 AM EST Procedure Visit [facility] [address] [place], [place] [phone] Lexi Thomson CNM [address] [place] [address] documented as of this encounter Procedures Procedure [...] documented as of this encounter Care Teams Engineering Officer Relationship Specialty Start Date End Date Ashanti August FNP [address] [place] [address] PCP - General Family Medicine 11/24/21 Jeff Villarreal FNP [address] [place] [address] Nurse Practitioner Family Medicine 02/20/23 documented as of this encounter
--- OUTSIDE RECORDS SUMMARY | 2024-05-01 15:59 | XMS_ITS | Encounter Summary ---
Author Organization [employer] Address [address] [facility] 7t [place] [address] Care Team Providers Care Radar Systems Engineer Name Role Phone Ashanti August QA MANAGER Primary Care Provider [phone] Jeff Villarreal QA MANAGER Unavailable Unavailable Encounter Details Date Type Department Care Team (Late st Contact Info) Description 02/21/2023 Orders Only [facility] [address] [place] [address] Isabel Escalante LPN Social History Tobacco Use [...] Description 05/16/2024 9:30 AM EST Procedure Visit [facility] [address] [place] [address] Lexi Thomson CNM [address] [place] [address] documented as of this encounter Visit Diagnoses Not on filedocumented in this encounter Additional Health Concerns Assessment Noted Time PHQ-9 Depression Total Score: 14 023 9:52 AM EDT documented as of this encounter Care Teams Radar Systems Engineer Relationship Specialty Start Date End Date Ashanti August FNP [address] [place] [address] PCP - General Family Medicine 11/24/21 Jeff Villarreal FNP [address] [place] [address] Nurse Practitioner Family Medicine 02/20/23 documented as of this encounter
--- OUTSIDE RECORDS SUMMARY | 2024-05-01 15:59 | XMS_ITS | Encounter Summary ---
Author Organization [employer] Address [address] [place] [address] 7 [place] [address] Care Team Providers Care Lehr Loader Name Role Phone [facility] Primary Care Provider [phone] Jeff Villarreal [facility] Unavailable Unavailable Encounter Details Date Type Department Care Team (Late st Contact Info) Description 05/24/2023 Orders Only [facility] MEDICINE [address] [place] [address] [facility] [address] [place] [address] Social History Tobacco Use Types Packs/Day Years [...] 9:30 AM EST Procedure Visit [facility] P[facility] [address] [place] [address] Lexi Thomson, CNM [address] [place] [address] documented as of this encounter Procedures Procedure [...] EST Narrative 05/24/2023 2:51 PM EST ? [facility] ?[address] ?[place] [address] ? CT Scan Report ? Signed ? Patient: Salmeron,Sharri ?MR#: [id number] ?? 703 ? : 1960 ?Acct:[id number] ? Age/Sex: 62 / F ?ADM Date: 02/21/24 ? Loc: HO.ED ? Attending Dr: ? Ordering Physician: Tanmay Alvarado MD ?? Date of Service: 05/24/23 ?? Procedure(s): CT cervical spine wo IV con ?? Accession Number(s): [id number] ? cc: Tanmay Alvarado MD; Ashanti August [...] 1447 ? DD/ 1331 ? TD/TT: ? Postal Service Clerk: ? Procedure Note Gerson Carrion - 05/24/[address] [place] [address] [address] Scan Report Signed Patient: Allyson Salmeron#: [id number] 703 : 2Acct:[id number] Age/Sex: 62 / FADM Date: 05/24/23 Loc: HO.ED Attending Dr: Ordering Physician: Tanmay Alvarado MD Date of Service: 05/24/23 Procedure(s): CT cervical spine wo IV con Accession Number(s): [id number] cc: Tanmay Alvarado MD; Ashanti August CAUSTIC ROOM ATTENDANT EXAMINATION: CT HEAD WITHOUT CONTRAST CLINICAL INFORMATION: [...] in OV> 05/24/23 1447 DD/ 1331 TD/TT: Postal Service Clerk: [facility] External Provider IM CT PROCEDURES Final Result * CT Head w/o Contrast (05/24/2023 1:31 PM EST) Anatomical Region Laterality Modality Head, Neck Computed Tomogra phy 05/24/2023 1:31 PM EST Narrative 05/24/2023 2:51 PM EST ? [facility] ?[address] ?[place] [address] ? CT Scan Report ? Signed ? Patient: Salmeron,Sharri ?MR#: [id number] ?? 703 ? : 1960 ?Acct:[id number] ? Age/Sex: 62 / F ?ADM Date: 05/24/23 ? Loc: HO.ED ? Attending Dr: ? Ordering Physician: Tanmay Alvarado MD ?? Date of Service: 05/24/23 ?? Procedure(s): CT head/brain wo IV con ?? Accession Number(s): [id number] ? cc: Tanmay Alvarado MD; Ashanti August [...] 1447 ? DD/ 1331 ? TD/TT: ? Postal Service Clerk: ? Procedure Note Gerson Carrion - 05/24/[address] [address] [address] Scan Report Signed Patient: Allyson Salmeron#: [id number] 703 : 2Acct:[id number] Age/Sex: 62 / FADM Date: 05/24/23 Loc: HO.ED Attending Dr: Ordering Physician: Tanmay Alvarado MD Date of Service: 05/24/23 Procedure(s): CT head/brain wo IV con Accession Number(s): [id number] cc: Tanmay Alvarado MD; [facility] EXAMINATION: CT HEAD WITHOUT CONTRAST CLINICAL INFORMATION: [...] in OV> 05/24/23 1447 DD/ 1331 TD/TT: Postal Service Clerk: [facility] [employer] External Provider IMG CT PROCEDURES Final Result documented in this encounter Visit Diagnoses Not on filedocumented in this encounter Additional Health Concerns Assessment Noted Time PHQ-9 Depression Total Score: 7 04/13/19 8:57 AM EST documented as of this encounter Care Teams Lehr Loader Relationship Specialty Start Date End Date Ashanti August FNP [address] [place] [address] PCP - General Family Medicine 11/24/21 Jeff Villarreal FNP [address] [place] [address] Nurse Practitioner Family Medicine 02/20/23 documented as of this encounter
--- OUTSIDE RECORDS SUMMARY | 2024-05-01 15:59 | XMS_ITS | Encounter Summary ---
Author Organization [employer] Address [address] [place] [address] 7t [place] [address] Care Team Providers Care Rn Mobile Name Role Phone Ashanti August [facility] Primary Care Provider [phone] Jeff Villarreal CENTERLESS GRINDER TENDER Unavailable Unavailable Encounter Details Date Type Department Care Team (Late st Contact Info) Description 03/29/2024 Telephone [facility] MEDICINE [address] [place] [address] Heriberto العراقي, KeithD Social History Tobacco Use [...] Description 05/16/2024 9:30 AM EST Procedure Visit [facility] MED [facility] PEDS [address] [place] [address] Lexi Thomson CNM [address] [place] [address] documented as of this encounter Visit Diagnoses Not on filedocumented in this encounter Additional Health Concerns Assessment Noted Time PHQ-9 Depression Total Score: 0 12/20/19 24 10:36 AM EDT documented as of this encounter Care Teams Rn Mobile Relationship Specialty Start Date End Date Ashanti August FNP [address] [place] [address] PCP - General Family Medicine 11/24/21 Jeff Villarreal FNP [address] [place] [address] Nurse Practitioner Family Medicine 02/20/23 documented as of this encounter
--- OUTSIDE RECORDS SUMMARY | 2024-05-01 15:59 | XMS_ITS | Encounter Summary ---
Author Organization [employer] Address [address] [place] [address] 7 [place] [address] Care Team Providers Care Print Developer Name Role Phone [facility] Primary Care Provider [phone] Jeff Villarreal [facility] Unavailable Unavailable Reason for Visit * Reason Comments Pre-visit Planning SDOH screening negat rufus and tobacco screening negative Encounter Details Date Type Department Care Team (Late st Contact Info) Description 04/12/2024 Patient Outreach [facility] MEDICINE [address] [place] [address] [facility] [address] [place] [address] Pre-visit Planning (SDOH screening negative and tobacco [...] Upcoming Encounters Date Type Department Care Team ([facility] st Contact Info) Description 05/16/2024 9:30 AM EST Procedure Visit [facility] [address] [place], [place] [phone] Lexi Thomson CNM 230 [facility] [place], [place] [phone] documented as of this encounter Visit Diagnoses Not on filedocumented in this encounter Additional Health Concerns Assessment Noted Time PHQ-9 Depression Total Score: 0 12/20/19 24 10:36 AM EDT documented as of this encounter Care Teams Print Developer Relationship Specialty Start Date End Date Ashanti August FNP [address] [place] [address] PCP - General Family Medicine 11/24/21 Jeff Villarreal FNP [address] [place] [address] Nurse Practitioner Family Medicine 02/20/23 documented as of this encounter
--- OUTSIDE RECORDS SUMMARY | 2024-05-01 15:59 | XMS_ITS | Encounter Summary ---
Author Organization [employer] Address [address] [place] [address] 7 [place] [address] Care Team Providers Care Matcher Leather Parts Name Role Phone [facility] Primary Care Provider [phone] Jeff Villarreal [facility] Unavailable Unavailable Reason for Visit * Reason Onset Date Comments Medication Question 04/02/2024 Encounter Details Date Type Department Care Team ([facility] st Contact Info) Description 04/02/2024 Telephone [facility] MEDICINE [address] [place] [address] [facility] [address] [place] [address] Medication Question Social History Tobacco Use Types [...] pt PCP in regards to Continuous Glucose Small Engine Mechanic (FreeStyle Zeke 2 [place]) device Continuous Glucose Sensor (FreeStyle Zeke 2 Sensor) [facility] Has a few questions and concerns about these prescriptions. Please contact physician at :[phone] documented in this encounter Plan of Treatment Upcoming Encounters Date Type Department Care Team (Late st Contact Info) Description 05/16/2024 9:30 AM EST Procedure Visit [facility] [address] [place] [address] Lexi Thomson CNM [address] [place] [address] documented as of this encounter Visit Diagnoses Not on filedocumented in this encounter Additional Health Concerns Assessment Noted Time PHQ-9 Depression Total Score: 0 12/20/19 10:36 AM EDT documented as of this encounter Care Teams Matcher Leather Parts Relationship Specialty Start Date End Date Ashanti August FNP [address] [place] [address] PCP - General Family Medicine 11/24/21 Jeff Villarreal FNP [address] [place] [address] Nurse Practitioner Family Medicine 02/20/23 documented as of this encounter
--- OUTSIDE RECORDS SUMMARY | 2024-05-01 15:59 | XMS_ITS | Encounter Summary ---
Author Organization [employer] Address [address] [place] [address] 7 [place] [address] Care Team Providers Care Puzzle Assembler Name Role Phone [facility] [place] Primary Care Provider [phone] Jeff Villarreal EXTENSION EDUCATOR Unavailable Unavailable Encounter Details Date Type Department Care Team (Late st Contact Info) Description 04/29/2024 Orders Only External Provider, [facility] Social History Tobacco Use Types Packs/Day Years [...] Description 05/16/2024 9:30 AM EST Procedure Visit [facility] [address] [place] [address] Lexi Thomson, LISSETTE [address] [place] [address] documented as of this encounter Procedures Procedure Name Priority Date/Time Associated Diagnosis Comments XR CERVICAL SPINE 4V Routine 04/29/2024 2:13 PM EST documented in this encounter Results * XR CERVICAL SPINE 4V (04/29/2024 2:13 PM EST) Anatomical Region Laterality Modality Abdomen Radiographic Miranda ging 04/29/2024 2:13 PM EST Narrative 04/30/2024 8:46 AM EST ? [facility] ? [address] ?[place] [address] ?XRay Report ? Signed ? Patient: Salmeron,Sharri ?MR#: [id number] ?? [id number] ? : 1960 ?Acct:[id number] ? Age/Sex: 63 / F ?ADM Date: 01/27/25 ? Loc: HO.HOSX ? Attending Dr: Serge VILLAGOMEZ ? Ordering Physician: Serge Mckeon ?? Date of Service: 04/29/24 ?? Procedure(s): XR cervical spine 4V ?? Accession Number(s): [id number] ? cc: Serge Mckeon; [facility] ? EXAMINATION: ?? XR CERVICAL SPINE [...] 08:43 AM EST RP ? Dictated By: ?Bess,Herminio S MD ? Signed By: ?<Electronically signed by Herminio S Bess, MD in OV> ?04/30/24 0843 ? DD/ 1413 ? TD/TT: 04/29/24 1415 ? Channel Marketing Specialist: MSM ? Procedure Note Hoseajanet, Image - 04/30/2024 [facility] [address] [place] [address] [address] [place] [address] XRay Report Signed Patient: Erlinda SalmeronLeslee#: [id number] : 2Acct:[id number] Age/Sex: 63 / FADM Date: 04/29/24 Loc: HO.HOSX Attending Dr: Serge VILLAGOMEZ Ordering Physician: Serge Mckeon Date of Service: 04/29/24 Procedure(s): XR cervical spine 4V Accession Number(s): [id number] cc: Serge Mckeon; [facility] EXTENSION EDUCATOR EXAMINATION: XR CERVICAL SPINE CLINICAL INFORMATION: M43.12 [...] Herminio Kellogg MD 04/30/2024 08:43 AM EST Dictated By: Herminio Kellogg MD Signed By: <Electronically signed by Herminio Kellogg MD in OV> 04/30/24 0843 DD/ 1413 TD/TT: 04/29/24 1415 Channel Marketing Specialist: [place] [facility] External Provider IMG XR PROCEDURES Final Result documented in this encounter Visit Diagnoses Not on filedocumented in this encounter Additional Health Concerns Assessment Noted Time PHQ-9 Depression Total Score: 0 04/24/19 10:11 AM EST documented as of this encounter Care Teams Puzzle Assembler Relationship Specialty Start Date End Date Ashanti August FNP [address] [place] [address] PCP - General Family Medicine 11/24/21 Jeff Villarreal FNP [address] [place] [address] Nurse Practitioner Family Medicine 02/20/23 documented as of this encounter
--- OUTSIDE RECORDS SUMMARY | 2024-05-01 15:59 | XMS_ITS | Clinical Summary ---
Author Organization [facility] Address [address] [address] Phone Care Team Providers Care Harbormaster Name Role Phone Unavailable Primary Care Provider [...] ?? Early REAL cirrhosis ?? Followed by [facility] Aortic valve sclerosis 10/25/2022 Anemia 10/25/2022 [...] results. ?? S/p multiple spinal surgeries through [facility] 09/2021 for cyst removal ?? 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 Followed by [facility] ?? Bethanechol Finding of hand region 09/20/2022 Overview (03/07/2023): Last Assessment & Plan: Due to increased albuterol use, trest of neurological exam is normal. No evidence of other EPS. Vascular insufficiency of intestine 11/24/2021 Ischemic colitis 11/24/2021 Overview (02/21/2022): Added automatically from request for surgery [id number] Congestive heart failure 02/27/2021 023 Overview (03/07/2023): [...] ?? Trelegy ellipta ?? Albuterol PRN ?? [facility] pulmon[facility] Fibromyalgia 12/08/2020 03/07/2023 Overview (03/07/2023): ?? [...] Visit [facility] [address] [place], [place] [address] Nguyễn Baird [...] Visit [facility] [address] [place] [address] Nguyễn Baird MD [address] [facility] [address] [place] [phone] Health Maintenance Due Date Last Done Comments [...] mmol/L PVNMA 12/17/2019 us [facility] [id number] LICITED RESULTS Final Result PVNMA from Last 3 Months or Most Recently Relevant to Health Maintenance Insurance [facility] ([id number]) * Guarantor: Sharri Salmeron Account Type Relation to Patient Date of Phone Billing Address Personal/Family Self 1960 [address] [place] [address] [place] [address] [facility] ([id number])
--- OUTSIDE RECORDS SUMMARY | 2024-05-01 15:59 | XMS_ITS | Encounter Summary ---
Author Organization [employer] Address [address] [place] [address] 7 [place] [address] Care Team Providers Care Executive Administrator Name Role Phone [facility] Primary Care Provider [phone] Jeff Villarreal [facility] Unavailable Unavailable Reason for Visit * Reason Comments Med Refill Encounter Details Date Type Department Care Team ([facility] st Contact Info) Description 03/29/2024 Refill [facility] MEDICINE [address] [place] [address] [facility] [address] [place], [place] [phone] Primary hypertension Social History Tobacco Use Types [...] [facility] [address] [place] [address] Lexi Thomson CNM [address] [place] [address] documented as of this encounter Visit Diagnoses Diagnosis Primary hypertension Unspecified essential hypertension documented in this encounter Additional Health Concerns Assessment Noted Time PHQ-9 Depression Total Score: 0 12/20/19 24 10:36 AM EDT documented as of this encounter Care Teams Executive Administrator Relationship Specialty Start Date End Date Ashanti August FNP [address] [place] [address] PCP - General Family Medicine 11/24/21 Jeff Villarreal FNP [address] [place] [address] Nurse Practitioner Family Medicine 02/20/23 documented as of this encounter
--- OUTSIDE RECORDS SUMMARY | 2024-05-01 15:59 | XMS_ITS | Clinical Summary ---
Author Organization [facility] Address [address] [place] [address] Care Team Providers Care Patrol Commander Name Role Phone Pcp, No Primary Care [...] (11/24/2021): Added automatically from request for surgery [id number] Ischemic bowel disease 11/24/2021 Social History Tobacco [...] Nonreactive Nonreactive S/CO 11/24/2021 11:21 AM EDT [employer] [facility] Hepatitis B Core Antibody IgM Nonreactive Nonreactive 11/24/2021 11:21 AM EDT [employer] [facility] Hepatitis B Surface Ag Screen Nonreactive Nonreactive 11/24/2021 11:21 AM EDT [employer] [facility] Hepatitis C Antibody 0.54 0.00 - 0.79 S/CO ratio 11/24/2021 11:21 AM EDT [employer] Hepatitis C Antibody Interpretation Nonreactive Nonreactive 11/24/2021 11:21 AM EDT [employer] [facility] Hepatitis Interpretation: Results inconsistent with acute Hepatitis A, B or C Virus infection. 11/24/2021 11:21 AM EDT [employer] [facility] Blood specimen (specimen) Serum specimen / Unknown 11/24/2021 6:13 AM EDT 11/24/2021 6:40 AM EDT Mary Grace Huerta [employer] [facility]LOOD [facility] [employer] [facility] [address] [place] [address] from Last 3 Months or Most Recently Relevant to Health Maintenance Advance Directives * Full Code (Latest Code Status on File) Date Activated Date Inactivated Comments 11/24/2021 3:35 AM 12/15/2021 3:20 PM Care Teams Patrol Commander Relationship Specialty Start Date End Date Pcp, No PCP - General General Medicine 11/28/21
--- OUTSIDE RECORDS SUMMARY | 2024-05-01 15:59 | XMS_ITS | Encounter Summary ---
Author Organization [employer] Address [address] [place] [address] 7 [place] [address] Care Team Providers Care Senior Sales Executive Name Role Phone [facility] Primary Care Provider [phone] Jeff Villarreal [facility] Unavailable Unavailable Reason for Visit * Reason Comments Med Refill Encounter Details Date Type Department Care Team ([facility] st Contact Info) Description 03/20/2024 Refill [facility] MEDICINE [address] [place] [address] [facility] [address] [place], [place] [phone] Primary hypertension Social History Tobacco Use Types [...] Description 05/16/2024 9:30 AM EST Procedure Visit [facility]ED[facility] [address] [place] [address] Lexi Thomson CNM [address] [place] [address] documented as of this encounter Visit Diagnoses Diagnosis Primary hypertension Unspecified essential hypertension documented in this encounter Additional Health Concerns Assessment Noted Time PHQ-9 Depression Total Score: 0 12/20/19 24 10:36 AM EDT documented as of this encounter Care Teams Senior Sales Executive Relationship Specialty Start Date End Date Ashanti August FNP [address] [place] [address] PCP - General Family Medicine 11/24/21 Jeff Villarreal FNP [address] [place] [address] Nurse Practitioner Family Medicine 02/20/23 documented as of this encounter
--- OUTSIDE RECORDS SUMMARY | 2024-05-01 16:00 | XMS_ITS | Encounter Summary ---
Author Organization [employer] Address [address] [place] [address] 7 [place] [address] Care Team Providers Care Training Director Name Role Phone Ashanti August [facility] Primary Care Provider [phone] Jeff Villarreal Unavailable Unavailable Reason for Visit * Reason Comments Med Refill Encounter Details Date Type Department Care Team ([facility] st Contact Info) Description 04/28/2023 Refill [facility] MEDICINE [address] [place] [address] Jeff Villarreal FNP Social History Tobacco Use [...] Description 05/16/2024 9:30 AM EST Procedure Visit [facility] MED [facility] PEDS [address] [place] [address] Lexi Thomson CNM [address] [place] [address] documented as of this encounter Visit Diagnoses Not on filedocumented in this encounter Additional Health Concerns Assessment Noted Time PHQ-9 Depression Total Score: 7 04/13/19 24 8:57 AM EST documented as of this encounter Care Teams Training Director Relationship Specialty Start Date End Date Ashanti August FNP [address] [place] [address] PCP - General Family Medicine 11/24/21 Jeff Villarreal FNP [address] [place] [address] Nurse Practitioner Family Medicine 02/20/23 documented as of this encounter
--- OUTSIDE RECORDS SUMMARY | 2024-05-01 16:00 | XMS_ITS | Encounter Summary ---
Author Organization [employer] Address [address] [place] [address] 7 [place] [address] Care Team Providers Care Induction Heat Treater Name Role Phone Ashanti August CONDUCTOR/BRAKEMAN Primary Care Provider [phone] Jeff Villarreal CONDUCTOR/BRAKEMAN Unavailable Unavailable Encounter Details Date Type Department Care Team (Late Contact Info) Description 11/07/2022 Orders Only [facility] MED & PEDS [address] [place] [address] Elizabeth Meadows LPN Social History Tobacco Use [...] 9:30 AM EST Procedure Visit [facility] PED[facility] [address] [place] [address] Lexi Thomson, LISSETTE [address] [place], [place] [phone] documented as of this encounter Visit Diagnoses Not on filedocumented in this encounter Additional Health Concerns Assessment Noted Time PHQ-9 Depression Total Score: 24 023 10:26 AM EDT documented as of this encounter Care Teams Induction Heat Treater Relationship Specialty Start Date End Date Ashanti August FNP [address] [place] [address] PCP - General Family Medicine 11/24/21 Jeff Villarreal FNP [address] [place] [address] Nurse Practitioner Family Medicine 02/20/23 documented as of this encounter
--- OUTSIDE RECORDS SUMMARY | 2024-05-01 16:00 | XMS_ITS | Encounter Summary ---
Author Organization [employer] Address [address] [place] [address] 7 [place] [address] Care Team Providers Care Addictions Counselor Name Role Phone [facility] Primary Care Provider [phone] Jeff Villarreal [facility] Unavailable Unavailable Reason for Visit * Reason Onset Date Comments ER Follow-up 04/25/2023 Encounter Details Date Type Department Care Team (Late st Contact Info) Description 04/25/2023 Telephone [facility] MEDICINE [address] [place], [place] [phone] [facility] [address] [place], [place] [phone] ER Follow-up Social History Tobacco Use Types [...] 04/25/2023 9:39 AM EST Pt. Admitted to [facility] 04/19-04/21 for acute hyperkalemia, UTI and metabolic encephalopathy. Please contact for HDF, thank you! * Telephone Encounter - Kem Carrillo - 04/25/2023 9:24 AM EST Patient calling to report ED visit on : Date: 04/19/23 Hospital: [facility] Seen for: UTI Patient advised will forward to team nurse for follow up documented in this encounter Plan of Treatment Upcoming Encounters Date Type Department Care Team (Late st Contact Info) Description 05/16/2024 9:30 AM EST Procedure Visit [facility] PEDS [address] [place] [address] Lexi Thomson, MICHELETM [address] [place] [address] documented as of this encounter Visit Diagnoses Not on filedocumented in this encounter Additional Health Concerns Assessment Noted Time PHQ-9 Depression Total Score: 7 04/13/19 8:57 AM EST documented as of this encounter Care Teams Addictions Counselor Relationship Specialty Start Date End Date Ashanti August FNP [address] [place] [address] PCP - General Family Medicine 11/24/21 Jeff Villarreal FNP [address] [place] [address] Nurse Practitioner Family Medicine 02/20/23 documented as of this encounter
--- OUTSIDE RECORDS SUMMARY | 2024-05-01 16:00 | XMS_ITS | Encounter Summary ---
Author Organization [employer] Address [address] [place] [address] 7 [place] [address] Care Team Providers Care Cupola Patcher Helper Name Role Phone [facility] Primary Care Provider [phone] Jeff Villarreal [facility] Unavailable Unavailable Reason for Visit * Reason Comments Med Refill Encounter Details Date Type Department Care Team ([facility] st Contact Info) Description 11/01/[address] [facility] MEDICINE [address] [place] [address] [facility] [address] [place], [place] [phone] Chronic obstructive pulmonary disease, unspecified COPD type [...] [facility]EDS [address] [place] [address] Lexi Thomson CNM [address] [place] [address] documented as of this encounter Visit Diagnoses Diagnosis Chronic obstructive pulmonary disease, unspecified COPD type (CMS/HCC) documented in this encounter Additional Health Concerns Assessment Noted Time PHQ-9 Depression Total Score: 15 024 10:15 AM EDT documented as of this encounter Care Teams Cupola Patcher Helper Relationship Specialty Start Date End Date Ashanti August FNP [address] [place] [address] PCP - General Family Medicine 11/24/21 Jeff Villarreal FNP [address] [place] [address] Nurse Practitioner Family Medicine 02/20/23 documented as of this encounter
--- OUTSIDE RECORDS SUMMARY | 2024-05-01 16:00 | XMS_ITS | Encounter Summary ---
Author Organization [employer] Address [address] [place] [address] 7t [place] [address] Care Team Providers Care Head Of It Name Role Phone Ashanti August Primary Care Provider [phone] Jfef Villarreal Unavailable Unavailable Reason for Visit * Reason Comments Med Refill Encounter Details Date Type Department Care Team ([facility] Contact Info) Description 10/16/2022 Refill [facility] MEDICINE [address] [place] [address] Jeff Villarreal FNP Depression, unspecified depression type [...] 9:30 AM EST Procedure Visit [facility] MED [facility] PEDS [address] [place] [address] Lexi Thomson CNM [address] [place] [address] documented as of this encounter Visit Diagnoses Diagnosis Depression, unspecified depression type documented in this encounter Additional Health Concerns Assessment Noted Time PHQ-9 Depression Total Score: 13 023 2:44 PM EST documented as of this encounter Care Teams Head Of It Relationship Specialty Start Date End Date Ashanti August FNP [address] [place] [address] PCP - General Family Medicine 11/24/21 Jeff Villarreal FNP [address] [place] [address] Nurse Practitioner Family Medicine 02/20/23 documented as of this encounter
--- OUTSIDE RECORDS SUMMARY | 2024-05-01 16:00 | XMS_ITS | Encounter Summary ---
Author Organization [employer] Address [address] [place] [address] 7 [place] [address] Care Team Providers Care Backhaul Driver Name Role Phone [facility] Primary Care Provider [phone] Jeff Villarreal [facility] Unavailable Unavailable Reason for Visit * Reason Onset Date Comments Med Refill 04/04/2023 Encounter Details Date Type Department Care Team (Late st Contact Info) Description 04/04/2023 Telephone [facility] MEDICINE [address] [place], [place] [phone] [facility] [address] [place] [address] Med Refill Social History Tobacco Use Types [...] 2 MG tablet To be sent to: [facility] [place], [place] - [address] [facility] documented in this encounter Plan of Treatment Upcoming Encounters Date Type Department Care Team (Late st Contact Info) Description 05/16/2024 9:30 AM EST Procedure Visit [facility] MED & PEDS [address] [place], [place] [phone] Lexi Thomson, LISSETTE [address] [place] [address] documented as of this encounter Visit Diagnoses Not on filedocumented in this encounter Additional Health Concerns Assessment Noted Time PHQ-9 Depression Total Score: 0 03/06/20 23 12:04 PM EST documented as of this encounter Care Teams Backhaul Driver Relationship Specialty Start Date End Date Ashanti August FNP [address] [place] [address] PCP - General Family Medicine 11/24/21 Jeff Villarreal FNP [address] [place] [address] Nurse Practitioner Family Medicine 02/20/23 documented as of this encounter
--- OUTSIDE RECORDS SUMMARY | 2024-05-01 16:00 | XMS_ITS | Encounter Summary ---
Author Organization [employer] Address [address] [place] [address] 7 [place] [address] Care Team Providers Care Willow Machine Tender Name Role Phone Ashanti August CONCRETE POINTER Primary Care Provider [phone] Jeff Villarreal Unavailable Unavailable Reason for Visit * Reason Comments Med Refill Encounter Details Date Type Department Care Team (Late st Contact Info) Description 07/30/2023 Refill [facility] MEDICINE [address] [place] [address] Jeff Villarreal FNP Depression, unspecified depression type [...] - [facility] [address] [place] [address] Lexi Thomson CNM [address] [place] [address] documented as of this encounter Visit Diagnoses Diagnosis Depression, unspecified depression type documented in this encounter Additional Health Concerns Assessment Noted Time PHQ-9 Depression Total Score: 9 07/05/19 24 4:20 PM EDT documented as of this encounter Care Teams Willow Machine Tender Relationship Specialty Start Date End Date Ashanti August FNP [address] [place] [address] PCP - General Family Medicine 11/24/21 Jeff Villarreal FNP [address] [place] [address] Nurse Practitioner Family Medicine 02/20/23 documented as of this encounter
--- OUTSIDE RECORDS SUMMARY | 2024-05-01 16:00 | XMS_ITS | Encounter Summary ---
Author Organization [employer] Address [address] [place] [address] 7 [place] [address] Care Team Providers Care Wood And Wood Products Factory Worker Name Role Phone [facility] Primary Care Provider [phone] Jeff Villarreal [facility] Unavailable Unavailable Reason for Visit * Reason Onset Date Comments Hospital Follow-up 07/28/2023 Encounter Details Date Type Department Care Team (Late st Contact Info) Description 07/28/2023 Telephone [facility] MEDICINE [address] [place], [place] [phone] [facility] [address] [place], [place] [phone] Hospital Follow-up Social History Tobacco Use Types [...] from pt requesting a HDF appt. [facility] Date of admission: 07/19 Discharge date: 07/25 Diagnosed: Massive UTI documented in this encounter Plan of Treatment Upcoming Encounters Date Type Department Care Team (Late st Contact Info) Description 05/16/2024 9:30 AM EST Procedure Visit [facility] MED & PEDS [address] [place] [address] Lexi Thomson CNM [address] [place] [address] documented as of this encounter Visit Diagnoses Not on filedocumented in this encounter Additional Health Concerns Assessment Noted Time PHQ-9 Depression Total Score: 9 07/05/19 24 4:20 PM EDT documented as of this encounter Care Teams Wood [employer] Factory Worker Relationship Specialty Start Date End Date Ashanti August FNP [address] [place] [address] PCP - General Family Medicine 11/24/21 Jeff Villarreal FNP [address] [place] [address] Nurse Practitioner Family Medicine 02/20/23 documented as of this encounter
== END 2024-05-01 14:12 | disposition home or self-care (01) ==
PROVIDERS: PCP Registered Nurse; Visit Provider Internal Medicine Pulmonary Disease
DX: J44.9 Chronic obstructive pulmonary disease, unspecified (principal); Z99.81 Dependence on supplemental oxygen
CPT/HCPCS: 99214

== ENCOUNTER → 2024-05-01 13:44 | Outpatient (BNVA) | payer OTHER, SELFPAY | PROVIDERS: PCP Registered Nurse; Visit Provider Internal Medicine Pulmonary Disease | DX: J44.9 Chronic obstructive pulmonary disease, unspecified (principal); Z99.81 Dependence on supplemental oxygen | CPT/HCPCS: 99212 ==

== ENCOUNTER → 2024-05-24 12:40 | Outpatient (REF) | payer OTHER, SELFPAY ==
--- NOTE | 2024-05-24 12:50 | CA_ITS ---
Transthoracic Echocardiogram Patient (Last, First, Middle): Sharri Salmeron, Gender: Female Date of : 1960 Age: 63 Procedure Date: 05/24/2024 Procedure Type: Transthoracic Echocardiogram Location: OP Height: 160. cm Weight: 73.94 kg BSA: 1.77 m2 Heart Rate: bpm BP: 148 / 75 mmHg Public Health Engineer: DALE Referring MD: Jaxson Wells MD Symptoms: I35.0 - Nonrheumatic aortic (valve) stenosis Study Quality: Adequate ECG Rhythm: Sinus Conclusions: - The left ventricular systolic function is hyperdynamic. The visually estimated ejection fraction is >70%. - There is mild calcification of the aortic valve. - There is mild mitral annular calcification. Findings Left Ventricle Normal left ventricular cavity size. The left ventricular systolic function is hyperdynamic. The visually estimated ejection fraction is >70%. There is no evidence of regional wall motion abnormalities. Diastolic function is normal for age. There is mild septal asymmetric hypertrophy. Right Ventricle Normal right ventricular cavity size and systolic function. Atria Both atria are normal in size. Aortic Valve There is mild calcification of the aortic valve. There is no aortic valve stenosis. There is no aortic valve regurgitation. Mitral Valve There is mild mitral annular calcification. There is trace mitral valve regurgitation. There is no mitral valve stenosis. Pulmonic Valve The pulmonic valve is likely normal. Tricuspid Valve There is trace tricuspid valve regurgitation. There is no evidence of pulmonary hypertension. Great Vessels The asc aorta is normal in size. Venous The inferior vena cava is normal in size and collapses greater than 50% with inspiration. Pericardium/Pleural There is no evidence of pericardial effusion. Prior Study Comparison No significant change compared to prior study dated: 01/15/2021. Measurements 2D Linear Measurements IVSd: 1.01 0.6-0.9/0.6-1.0 cm LVIDd: 4.00 3.9-5.3/4.2-5.9 cm LVIDd Index: 2.26 2.4-3.2/2.2-3.1 cm/m2 LVIDs: 2.14 2.0-3.6 cm LVPWd: 0.99 0.7-1.1 cm LA Diam: 3.10 2.7-3.8/3.0-4.0 cm LAIDs Index: 1.75 1.5-2.3 cm/m2 LV Mass: 157.52 67-162/88-224 g LV Mass Index: 88.99 43-95/49-115 g/m2 LVOT Diam: 2.00 3.0+(-)1.3 cm 2D Systolic Function EF 4C: 71.40 >55% EF 2C: 74.90 >55% EF BiP: 72.10 >55% Mitral Valve MV Pk E: 0.61 MV PK A: 0.86 MV Decel Time: 381.00 E/A: 0.70 E'Lateral: 7.83 E'Medial: 4.13 E/E' Med: 14.80 E/E' Lat: 7.80 PHT: 112.00 MVA PHT: 1.96 Decel Webster: 1.60 Aortic Valve AoV Pk Willi: 1.80 AoV Mn Willi: 1.22 AoV VTI: 0.35 AoV Pk Grad: 13.00 Aov Mn Grad: 7.00 MEVLA Cont.VTI: 2.21 LVOT LVOT Pk Willi: 1.16 LVOT Mn Willi: 0.83 LVOT VTI: 0.25 LVOT Pk Grad: 5.00 LVOT Mn Grad: 3.00 LVOT Diam: 2.00 LVOT Area: 3.14 Diastolic Function MV Pk E: 0.61 MV Pk A: 0.86 E/A: 0.70 E'Medial: 4.13 E/E' Med: 14.80 E' Laterial: 7.83 E/E' Lat: 7.80 Right Ventricle TAPSE (mm): 19.70 TVS' Willi: 14.70 Tricuspid Valve TR Pk Willi: 1.56 TR Pk Grad: 10.00 RA Press: 3.00 RVSP: 13.00 Great Vessels Aorta Sinus of Valsalva: 2.90 2.0-3.5 cm Ao Asc: 2.90 2.1-3.4 cm Pulmonary Valve PV Pk Willi: 1.40 Peak PV Grad: 8.00 Updated in Other Vendor System with Status of Final Jaxson Wells MD electronically signed on 05/25/2024 2:59:50 PM with status of Final
--- OUTSIDE RECORDS SUMMARY | 2024-05-24 13:10 | XMS_ITS | Encounter Summary ---
Author Organization [employer] Address [address] [place] [address] 7t [place] [address] Care Team Providers Care Business Intelligence Architect Name Role Phone Ashanti August [facility] LANDSCAPE ARCHITECT Primary Care Provider [phone] [employer]ANDSCAPE ARCHITECT Unavailable Unavailable Encounter Details Date Type Department Care Team ([facility] Contact Info) Description 05/03/2022 Orders Only [facility] CHC MED & PEDS [address] [place], [place] [phone] Elizabeth Meadows LPN Social History Tobacco Use [...] Department Care Team (Late Contact Info) Description 05/28/2024 3:30 PM EST Office Visit [facility] MEDICINE [address] [place], [place] [phone] Anu Romero NP [address] [place] [address] documented as of this encounter Visit Diagnoses Not on filedocumented in this encounter Additional Health Concerns Assessment Noted Time PHQ-9 Depression Total Score: 13 023 2:44 PM EST documented as of this encounter Care Teams Business Intelligence Architect Relationship Specialty Start Date End Date Ashanti August FNP [address] [place] [address] PCP - General Family Medicine 11/24/21 Jeff Villarreal FNP [address] [place] [address] Nurse Practitioner Family Medicine 02/20/23 documented as of this encounter
--- OUTSIDE RECORDS SUMMARY | 2024-05-24 13:10 | XMS_ITS | Encounter Summary ---
Author Organization [employer] Address [address] [place] [address] 7t [place] [address] Care Team Providers Care Scallop Shucker Name Role Phone Ashanti August AGENT Primary Care Provider [phone] Jeff Villarreal AGENT Unavailable Unavailable Encounter Details Date Type Department Care Team ([facility] Contact Info) Description 09/20/2022 Orders Only [facility] CHC MED & PEDS [address] [place], [place] [phone] Elizabeth Meadows LPN Social History Tobacco Use [...] Description 05/28/2024 3:30 PM EST Office Visit [facility] MEDICINE [address] [place] [address] Anu Romero NP [address] [place] [address] documented as of this encounter Visit Diagnoses Not on filedocumented in this encounter Additional Health Concerns Assessment Noted Time PHQ-9 Depression Total Score: 13 023 2:44 PM EST documented as of this encounter Care Teams Scallop Shucker Relationship Specialty Start Date End Date Ashanti August FNP [address] [place] [address] PCP - General Family Medicine 11/24/21 Jeff Villarreal FNP [address] [place] [address] Nurse Practitioner Family Medicine 02/20/23 documented as of this encounter
--- OUTSIDE RECORDS SUMMARY | 2024-05-24 13:10 | XMS_ITS | Encounter Summary ---
Author Organization [employer] Address [address] [place] [address] 7 [place] [address] Care Team Providers Care Consultant Nurse Name Role Phone Ashanti August MANAGER CASINO Primary Care Provider [phone] Jeff Villarreal MANAGER CASINO Unavailable Unavailable Encounter Details Date Type Department Care Team (Late st Contact Info) Description 05/24/2022 Orders Only [facility] MEDICINE [address] [place] [phone] Isabel Escalante LPN Social History Tobacco Use [...] Care Team (Late st Contact Info) Description 05/28/2024 3:30 PM EST Office Visit [facility] MEDICINE [address] [place] [phone] Anu Romero NP [address] [place], [place] [phone] documented as of this encounter Visit Diagnoses Not on filedocumented in this encounter Additional Health Concerns Assessment Noted Time PHQ-9 Depression Total Score: 13 023 2:44 PM EST documented as of this encounter Care Teams Consultant Nurse Relationship Specialty Start Date End Date Ashanti August FNP [address] [place] [address] PCP - General Family Medicine 11/24/21 Jeff Villarreal FNP [address] [place] [address] Nurse Practitioner Family Medicine 02/20/23 documented as of this encounter
--- OUTSIDE RECORDS SUMMARY | 2024-05-24 13:10 | XMS_ITS | Encounter Summary ---
Author Organization [employer] Address [address] [place] [address] 7 [place] [address] Care Team Providers Care Business Economist Name Role Phone [facility] Primary Care Provider [phone] Jeff Villarreal [facility] Unavailable Unavailable Reason for Visit * Reason Comments Follow-up Encounter Details Date Type Department Care Team (Late st Contact Info) Description 04/24/2024 10:00 AM EST Office Visit [facility] MEDICINE [address] [place], [place] [phone] [facility] [address] [place], [place] [phone] Type 2 diabetes mellitus with stage 4 chronic kidney disease, without long-term current use of insulin ([facility]) (Primary Dx); Overweight; Cervical radiculopathy; Dietary [...] this encounter Progress Notes * [facility], ILLUSIONIST - 04/24/2024 10:00 AM EST SUBJECTIVE: Sharri [...] from 03/05/2024 with the following impression. Neurosurgery [facility] consult was placed. Today reports symptoms worsening. [...] Current living environment: Lives with . Has [facility] [employer] and VNA services Children: Yes Patient Active [...] seizure-like activity (CMS/HCC) Chronic obstructive pulmonary disease ([facility]) Past Surgical History: Procedure Laterality Date CERVICAL [...] without long- term current use of insulin ([facility]) (Primary) Lab Results Component Value Date HGBA1C [...] contact contact information for neurology [facility]. - Will trial gabapentin 3 times daily [...] or split. 90 tablet 3 Continuous Glucose Legal Intern (FreeStyle Zeke 2 [place]) device Use as directed 1 each 0 [...] facility-administered medications on file prior to visit. Libyan Translation: Patient is bilingual and declines translation services documented in this encounter Plan of Treatment Upcoming Encounters Date Type Department Care Team (Late st Contact Info) Description 05/28/2024 3:30 PM EST Office Visit [facility] MEDICINE [address] [place] [address] Anu Romero NP [address] [place] [address] documented as of this encounter Procedures Procedure Name Priority Date/Time Associated Diagnosis Comments POCT GLYCATED HEMOGLOBIN, TOTAL Routine 04/24/2024 10:15 AM EST Type 2 diabetes mellitus with stage 4 chronic kidney disease, without long-term current use of insulin ([facility]) POCT GLUCOSE Routine 04/24/2024 10:15 AM EST Type 2 diabetes mellitus with stage 4 chronic kidney disease, without long-term current use of insulin ([facility]) documented in this encounter Results * POCT [...] disease, without long-term current use of insulin ([facility])- Primary Overweight Cervical radiculopathy Brachial neuritis or radiculitis nos Dietary counseling Dietary surveillance and counseling Exercise counseling documented in this encounter Additional Health Concerns Assessment Noted Time PHQ-9 Depression Total Score: 0 04/24/19 25 10:11 AM EST documented as of this encounter Care Teams Business Economist Relationship Specialty Start Date End Date Ashanti August FNP [address] [place] [address] PCP - General Family Medicine 11/24/21 Jeff Villarreal FNP [address] [place] [address] Nurse Practitioner Family Medicine 02/20/23 documented as of this encounter
--- OUTSIDE RECORDS SUMMARY | 2024-05-24 13:10 | XMS_ITS | Encounter Summary ---
Author Organization [employer] Address [address] [place] [address] 7t [place] [address] Care Team Providers Care Sample Driller Name Role Phone Ashanti August [facility] Primary Care Provider [phone] Jeff Villarreal NURSING PROGRAM MANAGER Unavailable Unavailable Encounter Details Date Type [...] Description 05/28/2024 3:30 PM EST Office Visit [facility] MEDICINE [address] [place] [address] Anu Romero NP [address] [place] [address] documented as of this encounter Visit Diagnoses Not on filedocumented in this encounter Additional Health Concerns Assessment Noted Time PHQ-9 Depression Total Score: 0 04/24/19 25 10:11 AM EST documented as of this encounter Care Teams Sample Driller Relationship Specialty Start Date End Date Ashanti August FNP [address] [place] [address] PCP - General Family Medicine 11/24/21 Jeff Villarreal FNP [address] [place] [address] Nurse Practitioner Family Medicine 02/20/23 documented as of this encounter
--- OUTSIDE RECORDS SUMMARY | 2024-05-24 13:10 | XMS_ITS | Encounter Summary ---
Author Organization [employer] Address [address] [place] [address] 7 [place] [address] Care Team Providers Care Php Software Engineer Name Role Phone [facility] Primary Care Provider [phone] Jeff Villarreal [facility] Unavailable Unavailable Reason for Visit * Reason Onset Date Comments Durable Medical Equipment 06/23/2022 Encounter Details Date Type Department Care Team (Late st Contact Info) Description 06/23/2022 Telephone [facility] MEDICINE [address] [place], [place] [phone] [facility] [address] [place] [address] Durable Medical Equipment Social History Tobacco Use [...] is your housing situation today? I have ajnak palafox 01/19/[address] you [...] and a electrical scooter. Please contact at [phone] documented in this encounter Plan of Treatment Upcoming Encounters Date Type Department Care Team (Late st Contact Info) Description 05/28/2024 3:30 PM EST Office Visit [facility] MEDICINE [address] [place] [address] Anu Romero NP [address] [place] [address] documented as of this encounter Visit Diagnoses Not on filedocumented in this encounter Additional Health Concerns Assessment Noted Time PHQ-9 Depression Total Score: 13 023 2:44 PM EST documented as of this encounter Care Teams Php Software Engineer Relationship Specialty Start Date End Date Ashanti August FNP [address] [place] [address] PCP - General Family Medicine 11/24/21 Jeff Villarreal FNP [address] [place] [address] Nurse Practitioner Family Medicine 02/20/23 documented as of this encounter
--- OUTSIDE RECORDS SUMMARY | 2024-05-24 13:10 | XMS_ITS | Encounter Summary ---
Author Organization [employer] Address [address] [place] [address] 7 [place] [address] Care Team Providers Care Anesthesiologist And Critical Care Name Role Phone [facility] Primary Care Provider [phone] [facility] Unavailable Unavailable Encounter Details Date Type Department Care Team (Late st Contact Info) Description 05/24/2023 Orders Only [facility] MEDICINE [address] [place] [address] [facility] [address] [place] [address] Social History Tobacco Use Types Packs/Day Years [...] Description 05/28/2024 3:30 PM EST Office Visit [facility] MEDICINE [address] [place] [address] Anu Romero NP [address] [place] [address] documented as of this encounter Procedures Procedure [...] EST Narrative 05/24/2023 2:51 PM EST ? [facility] ?[address] ?[place] [address] ? CT Scan Report ? Signed ? Patient: Salmeron,Sharri ?MR#: [id number] ?? 703 ? : 1960 ?Acct:[id number] ? Age/Sex: 62 / F ?ADM Date: 02/21/24 ? Loc: HO.ED ? Attending Dr: ? Ordering Physician: Tanmay Alvarado MD ?? Date of Service: 05/24/23 ?? Procedure(s): CT cervical spine wo IV con ?? Accession Number(s): [id number] ? cc: Tanmay Alvarado MD; Ashanti August [...] 1447 ? DD/ 1331 ? TD/TT: ? Respiratory Therapy Aide: ? Procedure Note Gerson Carrion - 05/24/[address] [place] [address] [address] Scan Report Signed Patient: Allyson Salmeron#: [id number] 703 : 2Acct:[id number] Age/Sex: 62 / FADM Date: 05/24/23 Loc: HO.ED Attending Dr: Ordering Physician: Tanmay Alvarado MD Date of Service: 05/24/23 Procedure(s): CT cervical spine wo IV con Accession Number(s): [id number] cc: Tanmay Alvarado MD; [facility] CT HEAD WITHOUT CONTRAST CLINICAL INFORMATION: [...] in OV> 05/24/23 1447 DD/ 1331 TD/TT: Respiratory Therapy Aide: [facility] External Provider IMG CT PROCEDURES Final Result * CT Head w/o Contrast (05/24/2023 1:31 PM EST) Anatomical Region Laterality Modality Head, Neck Computed Tomogra phy 05/24/2023 1:31 PM EST Narrative 05/24/2023 2:51 PM EST ? [facility] ?[address] ?[place] [address] ? CT Scan Report ? Signed ? Patient: Salmeron,Sharri ?MR#: [id number] ?? 703 ? : 1960 ?Acct:[id number] ? Age/Sex: 62 / F ?ADM Date: 05/24/23 ? Loc: HO.ED ? Attending Dr: ? Ordering Physician: Tanmay Alvarado MD ?? Date of Service: 05/24/23 ?? Procedure(s): CT head/brain wo IV con ?? Accession Number(s): [id number] ? cc: Tanmay Alvarado MD; Ashanti August [...] 1447 ? DD/ 1331 ? TD/TT: ? Respiratory Therapy Aide: ? Procedure Note Sheyla, Image - 05/24/[address] [address] [address] Scan Report Signed Patient: Allyson Salmeron#: [id number] 703 : 2Acct:[id number] Age/Sex: 62 / FADM Date: 05/24/23 Loc: HO.ED Attending Dr: Ordering Physician: Tanmay Alvarado MD Date of Service: 05/24/23 Procedure(s): CT head/brain wo IV con Accession Number(s): [id number] cc: Tanmay Alvarado MD; [facility] EXAMINATION: CT HEAD WITHOUT CONTRAST CLINICAL INFORMATION: [...] in OV> 05/24/23 1447 DD/ 1331 TD/TT: Respiratory Therapy Aide: [facility] External Provider IMG CT PROCEDURES Final Result documented in this encounter Visit Diagnoses Not on filedocumented in this encounter Additional Health Concerns Assessment Noted Time PHQ-9 Depression Total Score: 7 04/13/19 8:57 AM EST documented as of this encounter Care Teams Anesthesiologist And Critical Care Relationship Specialty Start Date End Date Ashanti August FNP [address] [place] [address] PCP - General Family Medicine 11/24/21 Jeff Villarreal FNP [address] [place] [address] Nurse Practitioner Family Medicine 02/20/23 documented as of this encounter
--- OUTSIDE RECORDS SUMMARY | 2024-05-24 13:10 | XMS_ITS | Encounter Summary ---
Author Organization [employer] Address [address] [place] [address] 7 [place] [address] Care Team Providers Care Director Of Assessing Name Role Phone [facility] Primary Care Provider [phone] Jeff Villarrael [facility] Unavailable Unavailable Reason for Visit * Reason Onset Date Comments fyi 05/23/2024 Encounter Details Date Type Department Care Team (Late st Contact Info) Description 05/23/2024 Telephone [facility] MEDICINE [address] [place], [place] [phone] [facility] [address] [place] [address] Social History Tobacco Use Types Packs/Day Years [...] Telephone Encounter - Brynn Quiñonez RN - 05/23/2024 1:34 PM EST TC returned to Yajaira [phone] in regards to below message. Yajaira is requesting an addendum to OV note dated 04/24/24 stating patient is cleared for surgery. RN advised OV from 04/24/24 was NOT a pre-op, it was f/u appointment. RN advised [facility] spine center that RN called on 05/10/24 to obtain surgery details and RN was informed certified surgical technologist was not in however certified surgical technologist would returncall to [facility] or fax pre-op information. It appears information was faxed however cover sheet did NOTmention need for pre-op therefore document was scanned into chart and pre-op was never scheduled. Yajaira informed RN can schedule patient for pre-op on 05/28/24 however it is the ONLY available appointment for pre-op and if patient cannot attend appointment then surgery will need to be r/s. Yajaira reports she will call the patient and notify of the pre-op appointment date and time. Yajaira to f/u PRN. Facility: [facility] Surgery: 05/30/24 Procedure: Anterior Cervical Discectomy with plate (C6-7 C7-T1) Anesthesia: General Surgeon: Dr. Dsouza Labs:NO EKG: YES * Telephone Encounter - Jose Ramon Dominguez - 05/23/2024 10:43 AM EST Tc from Yajaira with [facility] requesting addendum note from PCP stating pt is clear for surgery. Yajaira will like notes to be sent via FAX to [phone]. If any question feel free to contact Yajaira at [phone] documented in this encounter Plan of Treatment Upcoming Encounters Date Type Department Care Team ([facility] st Contact Info) Description 05/28/2024 3:30 PM EST Office Visit [facility] MEDICINE [address] [place] [address] Anu Romero NP [address] [place] [address] documented as of this encounter Visit Diagnoses Not on filedocumented in this encounter Additional Health Concerns Assessment Noted Time PHQ-9 Depression Total Score: 0 04/24/19 10:11 AM EST documented as of this encounter Care Teams Director Of Assessing Relationship Specialty Start Date End Date Ashanti August FNP [address] [place] [address] PCP - General Family Medicine 11/24/21 Jeff Villarreal FNP [address] [place] [address] Nurse Practitioner Family Medicine 02/20/23 documented as of this encounter
--- OUTSIDE RECORDS SUMMARY | 2024-05-24 13:10 | XMS_ITS | Clinical Summary ---
Author Organization [facility] Address [address] [place] [address] Care Team Providers Care Manager Of Applications Development Name Role Phone Suri Diamond GABBY Primary [...] Plan of Treatment Not on file Insurance [facility] [employer] PLAN Member Subscriber Plan / Payer (Ef fective 2013-Present) Name:Rusty Salmeronlia Relation to Subscriber:Self Name:Rusty Salmeronlia Payer ID:[id number] Group ID:[id number] Type:Medicaid Address: [facility] [address] [place] [address] Care Teams Manager Of Applications Development Relationship Specialty Start Date End Date Suri Diamond NP PCP - General Family Medicine COMMISSIONED FIRE OFFICER 12/17/12
--- OUTSIDE RECORDS SUMMARY | 2024-05-24 13:10 | XMS_ITS | Clinical Summary ---
[facility] Organization [facility] Address [address] [place] [address] Care Team Providers Care Meat Passer Name Role Phone Mata Ashanti Primary Care Provider [phone] Surgical History Surgery Date Site/Laterality Comments TOTAL KNEE ARTHROPLASTY Bilateral PROCEDURE: PA ARTHRP KNE CONDYLE&PLATU MEDIAL&LAT COMPARTMENTS BLADDER SURGERY PROCEDURE: HISTORICAL BLADDER SURGERY OTHER SURGICAL HISTORY 09/21/2021 PROCEDURE: PA PATRICIO FACETECTOMY & FORAMOTOMY 1 VRT SGM LUMBAR; COMMENT: L4-5 decompression, resection of left synovial cyst, placement of Coflex device, Dr. Trinidad CHOLECYSTECTOMY PROCEDURE: HISTORICAL CHOLECYSTECTOMY TUBAL LIGATION PROCEDURE: HISTORICAL TUBAL LIGATION OTHER SURGICAL HISTORY 01/24/2022 PROCEDURE: PA ARTHRODESIS POSTERIOR INTERBODY 1 NTRSPC LUMBAR; COMMENT: Removal of Coflex device L4-5, L4-5 resection of bilateral synovial cysts and fusion, Dr. Trinidad OTHER SURGICAL HISTORY 02/20/2023 PROCEDURE: PA PERQ VERT AGMNTJ CAVITY CRTJ UNI/BI CANNULJ LMBR; COMMENT: L2 kyphoplasty, Dr. Trinidad Medical History Medical History Date Comments Bronchitis DX:Bronchitis Diabetes mellitus type 2, co ntrolled, with complications (CMS/HCC) DX:Diabetes mellitus type 2, controlled, with complications ([facility]) Fibromyalgia DX:Fibromyalgia Hx of neck [...] at Not on file Legal Sex Female 2:13 PM EST Gender Identity Not on file [...] 1960 Cervical Cancer Screening: Pap Smear 1982 Pneumococcal Vaccine: 50+ Years (1 of 1 - PCV) 08/24/2011 Colorectal Cancer Screening: Colonoscopy 03/13/2022 Depression Screening 03/13/2022 HIV Screening 03/13/2022 Hepatitis C Screening 03/13/2022 Social Influencers of Health Screening 03/13/2022 COVID-19 Vaccine ( season) 2023 02/23/2021, 07/08/2020, 06/10/2020 Influenza Vaccine [...] patient's age to complete this topic Meningococcal B Vacine Aged Out No lo nger eligible based on patient's age to complete [...] Documents on File Type Date Recorded Patient Boom Conveyor Operator Expl anation Health Care Decision (hx) 10/02/2021 AD EMERY DIRECTIVE Health Care Decision (hx) 10/02/2021 AD EMERY DIRECTIVE Health Care Decision (hx) 10/02/2021 AD EMERY DIRECTIVE Health Care Decision (hx) 10/02/2021 AD EMERY DIRECTIVE Health Care Decision (hx) 10/02/2021 AD EMERY DIRECTIVE Health Care Decision (hx) 10/02/2021 AD EMERY DIRECTIVE Care Teams Meat Passer Relationship Specialty Start Date End Date [facility] [address] [place] [phone] PCP - General 10/06/23
--- OUTSIDE RECORDS SUMMARY | 2024-05-24 13:10 | XMS_ITS | Encounter Summary ---
Author Organization [employer] Address [address] [place] [address] 7 [place] [address] Care Team Providers Care Wool Shearing Supervisor Name Role Phone [facility] Primary Care Provider [phone] Jeff Villarreal [facility] Unavailable Unavailable Reason for Visit * Reason Onset Date Comments appointment cx 05/16/2024 Encounter Details Date Type Department Care Team ([facility] st Contact Info) Description 05/16/2024 Telephone [facility] MED & PEDS [address] [place] [address] [facility] [address] [facility] [place] [address] appointment cx Social History Tobacco Use Types Packs/Day Years [...] encounter Miscellaneous Notes * Telephone Encounter - Louisa Arguelles - 05/16/2024 9:02 AM EST LVM for pt that appt elma infante 05/16/23 was cx called out, pt to call back to [facility] to book documented in this encounter Plan of Treatment Upcoming Encounters Date Type Department Care Team (Late st Contact Info) Description 05/28/2024 3:30 PM EST Office Visit [facility] MEDICINE [address] [place], [place] [phone] Anu Romero NP [address] [place], [place] [phone] documented as of this encounter Visit Diagnoses Not on filedocumented in this encounter Additional Health Concerns Assessment Noted Time PHQ-9 Depression Total Score: 0 04/24/19 25 10:11 AM EST documented as of this encounter Care Teams Wool Shearing Supervisor Relationship Specialty Start Date End Date Ashanti August FNP [address] [place] [address] PCP - General Family Medicine 11/24/21 Jeff Villarreal FNP [address] [place] [address] Nurse Practitioner Family Medicine 02/20/23 documented as of this encounter
--- OUTSIDE RECORDS SUMMARY | 2024-05-24 13:10 | XMS_ITS | Encounter Summary ---
Author Organization [employer] Address [address] [place] [address] 7 [place] [address] Care Team Providers Care Cephalometric Analyst Name Role Phone [facility] Primary Care Provider [phone] Jeff Villarreal [facility] Unavailable Unavailable Reason for Visit * Reason Onset Date Comments Requesting a call back 04/25/2024 Encounter Details Date Type Department Care Team (Late st Contact Info) Description 04/25/2024 Telephone [facility] MEDICINE [address] [place], [place] [phone] [facility] [address] [place] [address] Requesting a call back Social History Tobacco [...] 10:40 AM EST TC placed to patient [phone] to clarify below message. Patient informed she [...] back to clarify. Please contact pt at [phone] documented in this encounter Plan of Treatment Upcoming Encounters Date Type Department Care Team (Late st Contact Info) Description 05/28/2024 3:30 PM EST Office Visit [facility] MEDICINE [address] [place] [address] Anu Romero NP 230 [place] [address] documented as of this encounter Visit Diagnoses Not on filedocumented in this encounter Additional Health Concerns Assessment Noted Time PHQ-9 Depression Total Score: 0 04/24/19 25 10:11 AM EST documented as of this encounter Care Teams Cephalometric Analyst Relationship Specialty Start Date End Date Ashanti August FNP [address] [place] [address] PCP - General Family Medicine 11/24/21 Jeff Villarreal FNP [address] [place] [address] Nurse Practitioner Family Medicine 02/20/23 documented as of this encounter
--- OUTSIDE RECORDS SUMMARY | 2024-05-24 13:10 | XMS_ITS | Encounter Summary ---
Author Organization [employer] Address [address] [place] [address] 7 [place] [address] Care Team Providers Care Parking Patroller Name Role Phone Ashanti August [employer] Primary Care Provider [phone] Jeff Villarreal [facility] [employer] Unavailable Unavailable Reason for Visit * Reason Onset Date Comments Prior Authorization 01/31/2024 Encounter Details Date Type Department Care Team (Late st Contact Info) Description 01/31/2024 Telephone [facility] MEDICINE [address] [place] [address] Lelo Giang RNopen hearth door liner Social History Tobacco Use Types Packs/Day Years [...] the past 12 months, has t he [employer] gas, oil or water [employer] threatened to shut off services in your [...] Telephone Encounter - Brynn Quiñonez RN - 05/02/2024 11:10 AM EST RN received PA again for CGM reader. PA was previously denied however provider did attempt to appeal which also was denied (see appeal denial notice in social media content specialist on 04/04/24). RN has notified pharmacy. PCP is also aware as it is noted on last OV note that CGM was denied. * Telephone Encounter - Brynn Quiñonez RN - 03/06/2024 11:59 AM EST Noted. RN has printed last addended OV note and faxed to [phone] with appeal number [id number].Confirmation page received. * Telephone Encounter - Lelo Giang RN - 02/20/2024 10:07 AM EST TC placed to [facility] in regards to below message. Tamiko reports that the appeal process is that PCP needsto update office visit note and explain why pt needs CGM due to pt not being on insulin. OV note then needs to be faxed to [phone]. This is the appeal number. RN to send message to PCP to let RNknow when OV notes are updated. * Telephone Encounter - Lelo Giang RN - 02/15/2024 9:17 AM EST TC placed to pharmacy inquring on PA status. Marlena in the pharmacy reports the prescriptions states it is still awaiting a PA. TC placed to [facility], RN spoke with Betzy who reports the PA was denied due to pt not being on insulin. Betzy faxed denial over to KALEB MANUEL placed in scan bin and will inform PCP as an FYI. * Telephone Encounter - Lelo Giang RN - 02/01/2024 8:53 AM EDT Continuous Glucose Monitor Prior Authorization Documentation: CGM PA initiated for: CGM DEVICE: [employer] Insurance: [facility] PA form completed and faxed to [phone]. Patient's preferred pharmacy: [facility] - [place], [place] - [address] [facility] [address] [phone] [id number] - [place], [place] - [address] [facility] [address] [facility] [address] CGM PA should be approved by: Sharri Salmeron will be scheduled for CGM placement/teaching once pharmacy receives approval. Postponing message 2 weeks. * Telephone Encounter - Lelo Giang RN - 01/31/2024 10:53 AM EDT Noted PA for CGM started, awaiting on PCP to finish last office visit note to fax PA to [facility]. ----- Message from [facility] sent at 01/31/2024 10:24 AM EDT ----- Please start PA for CGM. Patient is not on insulin however has had mulitple episodes of hypoglycemia and hx of frequent falls. Thank you! documented in this encounter Plan of Treatment Upcoming Encounters Date Type Department Care Team (Late st Contact Info) Description 05/28/2024 3:30 PM EST Office Visit [facility] MEDICINE [address] [place] [address] Anu Romero NP [address] [place] [address] documented as of this encounter Visit Diagnoses Not on filedocumented in this encounter Additional Health Concerns Assessment Noted Time PHQ-9 Depression Total Score: 0 12/20/19 10:36 AM EDT documented as of this encounter Care Teams Parking Patroller Relationship Specialty Start Date End Date Ashanti August FNP [address] [place] [address] PCP - General Family Medicine 11/24/21 Jeff Villarreal FNP [address] [place] [address] Nurse Practitioner Family Medicine 02/20/23 documented as of this encounter
--- OUTSIDE RECORDS SUMMARY | 2024-05-24 13:10 | XMS_ITS | Encounter Summary ---
Author Organization [employer] Address [address] [place] [address] 7 [place] [address] Care Team Providers Care Rn Neonatal Icu Name Role Phone Ashanti August [employer] Primary Care Provider [phone] Jeff Villarreal [employer] Unavailable Unavailable Reason for Visit * Reason Onset Date Comments Care Coordination 05/10/2024 Encounter Details Date Type Department Care Team (Late st Contact Info) Description 05/10/2024 Telephone [facility] MEDICINE [address] [place] [address] Brynn Quiñonez, KALEB [address] [place] [address] Care Coordination Social History Tobacco Use Types Packs/Day Years [...] Telephone Encounter - Brynn Quiñonez RN - 05/10/2024 10:17 AM EST Images from the original note were not included. TC placed to [facility] spine center [phone] in regards to below message. RN was informed the surgical services manager is not in today to provider RN with required information to schedule pre-op appointment. RN was informed neurosurgical nurse practitioner will return call to [facility] upon her return or [facility] spine [place] will fax pre-op appointment request form to [facility]. [facility] spine [place] to f[facility] Red Team Nurses Patient needs preop scheduled before surgery at the end of the month documented in this encounter Plan of Treatment Upcoming Encounters Date Type Department Care Team ([facility] st Contact Info) Description 05/28/2024 3:30 PM EST Office Visit [facility] MEDICINE [address] [place] [address] Anu Romero NP [address] [place] [address] documented as of this encounter Visit Diagnoses Not on filedocumented in this encounter Additional Health Concerns Assessment Noted Time PHQ-9 Depression Total Score: 0 04/24/19 25 10:11 AM EST documented as of this encounter Care Teams Rn Neonatal Icu Relationship Specialty Start Date End Date Ashanti August FNP [address] [place] [address] PCP - General Family Medicine 11/24/21 Jeff Villarreal FNP [address] [place] [address] Nurse Practitioner Family Medicine 02/20/23 documented as of this encounter
--- OUTSIDE RECORDS SUMMARY | 2024-05-24 13:10 | XMS_ITS | Encounter Summary ---
Author Organization [employer] Address [address] [place] [address] 7 [place] [address] Care Team Providers Care Pharmacist Manager Name Role Phone [facility] Primary Care Provider [phone] Jeff Villarreal [facility] Unavailable Unavailable Reason for Visit * Reason Comments Med Refill Encounter Details Date Type Department Care Team ([facility] st Contact Info) Description 03/29/2024 Refill [facility] MEDICINE [address] [place] [address] [facility] [address] [place], [place] [phone] Primary hypertension Social History Tobacco Use Types [...] Description 05/28/2024 3:30 PM EST Office Visit [facility] MEDICINE [address] [place] [address] Anu Romero NP [address] [place] [address] documented as of this encounter Visit Diagnoses Diagnosis Primary hypertension Unspecified essential hypertension documented in this encounter Additional Health Concerns Assessment Noted Time PHQ-9 Depression Total Score: 0 12/20/19 10:36 AM EDT documented as of this encounter Care Teams Pharmacist Manager Relationship Specialty Start Date End Date Ashanti August FNP [address] [place] [address] PCP - General Family Medicine 11/24/21 Jeff Villarreal FNP [address] [place] [address] Nurse Practitioner Family Medicine 02/20/23 documented as of this encounter
--- OUTSIDE RECORDS SUMMARY | 2024-05-24 13:10 | XMS_ITS | Encounter Summary ---
Author Organization [employer] Address [address] [place] [address] [address] [place] [address] Care Team Providers Care Auto Research Engineer Name Role Phone Mata Ashanti RESERVATIONS MANAGER Primary Care Provider [phone] Jeff Villarreal RESERVATIONS MANAGER Unavailable Unavailable Encounter Details Date Type Department Care Team (Late st Contact Info) Description 07/22/2022 Orders Only [facility] MED & PEDS [address] [place], [place] [phone] Elizabeth Meadows LPN Social History Tobacco Use [...] Description 05/28/2024 3:30 PM EST Office Visit [facility] MEDICINE 230 [place], [place] [phone] Anu Romero NP [address] [place], [place] [phone] documented as of this encounter Visit Diagnoses Not on filedocumented in this encounter Additional Health Concerns Assessment Noted Time PHQ-9 Depression Total Score: 13 023 2:44 PM EST documented as of this encounter Care Teams Auto Research Engineer Relationship Specialty Start Date End Date Ashanti August FNP [address] [place] [address] PCP - General Family Medicine 11/24/21 Jeff Villarreal FNP [address] [place] [address] Nurse Practitioner Family Medicine 02/20/23 documented as of this encounter
--- OUTSIDE RECORDS SUMMARY | 2024-05-24 13:10 | XMS_ITS | Encounter Summary ---
Author Organization [employer] Address [address] [place] [address] 7 [place] [address] Care Team Providers Care Cardiovascular Operating Room Nurse Name Role Phone [facility] Primary Care Provider Jeff Villarreal [facility] Unavailable Unavailable Reason for Visit * Reason Onset Date Comments Nurse Triage 02/07/2024 Encounter Details Date Type Department Care Team (Late st Contact Info) Description 02/07/[address] [facility] MEDICINE [address] [place] [address] [facility] 230 [place] [address] Nurse Triage Social History Tobacco Use Types [...] advised to come to WIC at the [facility] today for provider to check urine for [...] caller accepted this outcome. Contact pt at [phone] documented in this encounter Plan of Treatment Upcoming Encounters Date Type Department Care Team (Late st Contact Info) Description 05/28/2024 3:30 PM EST Office Visit [facility] MEDICINE [address] [place] [address] Anu Romero, GABBY 230 [place] [address] documented as of this encounter Visit Diagnoses Not on filedocumented in this encounter Additional Health Concerns Assessment Noted Time PHQ-9 Depression Total Score: 0 12/20/19 10:36 AM EDT documented as of this encounter Care Teams Cardiovascular Operating Room Nurse Relationship Specialty Start Date End Date Ashanti August FNP [address] [place] [address] PCP - General Family Medicine 11/24/21 Jeff Villarreal FNP [address] [place] [address] Nurse Practitioner Family Medicine 02/20/23 documented as of this encounter
--- OUTSIDE RECORDS SUMMARY | 2024-05-24 13:10 | XMS_ITS | Clinical Summary ---
Author Organization [employer] Address [address] [place] [address] 7 [place] [address] Care Team Providers Care Skid Road Man Name Role Phone Ashanti August [facility] Primary Care Provider [phone] Jeff Villarreal CARE PROGRAM RESIDENT Unavailable Unavailable Allergies Active Allergy Reactions Criticality Noted Date Comments Hydrocodone-Acetaminophen Itching High 12/17/2012 Oxycodone Rash,Itching High 07/13/2016 Other reaction(s): Rash Oxycodone-Acetaminophen Itching 12/17/2012 Zolpidem Rash High 07/13/2016 Medications * This document contains information received from the source organization and may not represent a complete record from that organization. Spacer/Aero-Holdi ng Chambers (Pro Comfort Spacer Adult) miscIndications:C OPD exacerbation ([facility]) Use qid prn sob/cough with inhaler 1 each 09/21/19 23 Active albuterol 108 (90 Base) MCG/ACT inhalerIndication s:COPD exacerbation ([facility]) Inhale 2 puffs every 6 (six) hours if needed for wheezing. 18 g 1 09/21/19 23 Active FeroSul 325 (65 Fe) MG tabletIndications :Anemia due to chronic kidney disease, unspecified CKD stage TAKE 1 TABLET BY MOUTH EVERY MORNING 90 tablet 10/14/19 23 Active Alcohol Swabs (Alcohol Prep) 70 % pads USE DIRECTED TWICE DAILY 12/31/19 23 Active Linzess 145 MCG capsule Take 1 capsule by mouth once daily 03/20/20 23 Active omeprazole (PriLOSEC) [address] capsule TAKE 1 CAPSULE BY MOUTH TWICE DAILY IN THE MORNING AND AT BEDTIME 04/20/19 24 Active Senna-Time 8.6 MG tablet TAKE 2 TABLETS ORALLY BEDTIME NEEDED FOR CONSTIPATION FOR 30 DAYS 03/31/20 23 Active Trelegy Ellipta 200-62.5-25 MCG/ACT aerosol powderIndications :Chronic obstructive pulmonary disease, unspecified COPD type ([facility]) INHALE 1 PUFF BY MOUTH EVERY DAY AT THE SAME TIME 60 each 08/09/19 24 Active glucose blood (FREESTYLE LITE) test stripIndications: Type 2 diabetes mellitus with other specified complication, without long-term current use of insulin ([facility]) USE TO TEST BLOOD SUGAR TWICE DAILY 100 each 08/11/19 24 Active TRUEplus Lancets 33G miscIndications:T ype 2 diabetes mellitus with other specified complication, without long-term current use of insulin ([facility]) USE TO TEST BLOOD SUGAR TWICE DAILY 100 each 08/11/19 24 Active buPROPion XL (Wellbutrin XL) 150 MG 24 hr tablet Take 1 tablet (150 mg) by mouth in the morning. Do not crush, chew, or split. 90 tablet 08/31/19 24 Active DULoxetine (Cymbalta) [address] capsuleIndication s:Depression, unspecified depression type Take 1 capsule (60 mg) by mouth Once per day. 90 capsule 08/31/19 24 Active hydrOXYzine pamoate (Vistaril) 50 MG capsuleIndication s:Depression, unspecified depression type TAKE 1 CAPSULE BY MOUTH EVERY 8 HOURS NEEDED FOR ANXIETY 90 capsule 08/31/19 24 Active traZODone (Desyrel) 100 MG tablet Take 2 tablets (200 mg) by mouth at bedtime. 180 tablet 08/31/19 24 Active QUEtiapine (SEROquel) 400 MG tablet TAKE 1/2 TABLET BY MOUTH EVERY MORNING and TAKE 1 AND 1/2 TABLETS BY MOUTH AT BEDTIME 60 tablet 3 12/13/19 24 Active dulaglutide (Trulicity) 0.75 MG/0.5ML solution pen-injectorIndic ations:Type 2 diabetes mellitus with stage 4 chronic kidney disease, without long-term current use of insulin ([facility]) Inject 0.75 mg under the skin 1 (one) time per week. 4 each 11 12/20/19 24 Active D3 Super Strength 50 MCG (2000 UT) capsuleIndication s:Vitamin D deficiency TAKE 2 CAPSULES BY MOUTH ONCE DAILY IN THE MORNING 180 capsule 3 01/17/20 24 Active glucose 4 g chewable tabletIndications :Type 2 diabetes mellitus with stage 4 chronic kidney disease, without long-term current use of insulin (CMS/HCC) Chew 4 tablets (16 g) if needed for low blood sugar. 50 tablet 12 01/31/20 24 025 Active Continuous Glucose Sensor (FreeStyle Zeke 2 Sensor) miscIndications:T ype 2 diabetes mellitus with stage 4 chronic kidney disease, without long-term current use of insulin (CMS/HCC),Hypogly cemia Use as directed 2 each 3 01/31/20 24 Active Continuous Glucose Lead Portfolio Manager (FreeStyle Zeke 2 Driscoll) deviceIndications :Type 2 diabetes mellitus with stage 4 chronic kidney disease, without long-term current use of insulin (CMS/HCC),Hypogly cemia Use as directed 1 each 01/31/20 24 Active lidocaine (Lidoderm) 5 % patchIndications: Cervical radiculopathy Apply 1 patch topically Once per day. Remove & discard patch within 12 hours or as directed by MD. 30 patch 3 01/31/20 24 Active atorvastatin (Lipitor) 80 MG tablet TAKE 1 TABLET BY MOUTH AT BEDTIME 90 tablet 03/28/20 24 Active Vitamin E 45 MG (100 UNIT) capsule Take 1 capsule by mouth Once per day. TAKE 1 CAPSULE BY MOUTH EVERY MORNING 90 capsule 03/28/20 24 Active gabapentin (Neurontin) 100 MG capsuleIndication s:Cervical radiculopathy Take 1 capsule three times daily for chronic. May self increase evening dose up to 3 capsules (300mg) if needed for symptom relief. 90 capsule 11 04/24/19 25 Active Active Problems Problem Noted Date Diagnosed Date Chronic obstructive pulmonary disease 01/31/2024 Overview (01/31/2024): Theophylline added to regimen. Continue trelegy. Continue continuous 2l O2.Has lung CT screening pending [facility] [place] Lam Witnessed seizure-like activity 08/18/2023 [...] and drug-disease interactions. This provider has consulted [facility] clinical pharmacist regarding medication safety. Patient had EKG at ED on 2023 which was normal. She will F/U with therapist at [facility] and has discussed the possibility of referral to their prescriber when this provider leaves the practice. However, since this provider will be retiring, patient will be referred to new psychiatric prescriber from [facility], contracted with [facility]. Reviewed with patient that new provider will be outside the [facility] organization and patient gives verbal consent to share information with provider. Any issues or concerns contact [facility]. All her questions were answered and I [...] q8 h prn anxiety. This provider consulted [facility] clinical pharmacist regarding medication safety. Patient had EKG at ED on 2023 which was normal. Provider will also consult patient's PCP about possibly changing her Atorvastatin 80 mg to alternative lipid med, as Atorvastatin can be associated with nightmares. She has started with new therapist at [facility] and has discussed the possibility of referral [...] She has started with new therapist at [facility] and has discussed the possibility of referral [...] 2019-NIL HPV neg-->repeat 2024 C-scope: Followed by [facility] [place] BMD: Routine age 66 Memory impairment [...] ?? Early REAL cirrhosis ?? Followed by [facility] Dysphagia, pharyngoesophageal phase 10/25/2022 Overview (05/15/2023): 07/21 EGD showed gastritis and changes suggestive of esophageal motility disorder Colonoscopy showed moderate diverticulosis in the entire colon and hemorrhoids and no polyps 09/2019 A gastric emptying study was normal. Frequent falls 10/25/2022 Hyperkalemia 10/25/2022 Overview (05/15/2023): ?? Lisinopril discontinued 04/2022 Lumbar radiculopathy 10/25/2022 Overview (10/28/2022): ?? S/p multiple spinal surgeries through [facility] 09/2021 for cyst removal ?? Followed by [facility] pain mngmt NIURKA (obstructive sleep apnea) 10/25/2022 Pulmonary nodules 10/25/2022 Supplemental oxygen dependent 10/25/2022 Weak urinary stream 10/25/2022 Overview (10/28/2022): ?? Followed by [facility] [place]rology ?? Bethanechol Tremor of both hands [...] 01/31/2024 Overview (10/28/2022): ?? S/p emergency surgery [place] 11/2021 ?? Now followed by [facility] Vascular insufficiency of intestine 11/24/2021 01/31/2024 Renal function test abnormal 02/11/2021 10/28/2022 Chronic obstructive lung disease 01/17/2021 12/19/2023 Overview (05/15/2023): ?? Trelegy ellipta ?? Albuterol PRN ?? Supplemental 02 ?? 35 pack year smoking hx ?? [facility] pul[place] History of total knee arthroplasty 02/09/2017 10/28/2022 Depressive disorder 02/20/2013 10/29/19 Assessment & Plan (09/20/2022 12:01 PM EDT): She's doing well, no panic attacks at this time, seems to be dealing well with her son's addiction. FU closely with psycho pharacology clinic. Current smoker 12/17/2012 10/28/2022 Encounters Date Type Department Care Team Description 05/23/2024 Telephone [facility] MEDICINE [address] [place] [address] Ashanti August FNP fyi 05/16/2024 Telephone [facility] MED & PEDS [address] [place], [place] [phone] Ashanti August FNP appointment cx 05/10/2024 Telephone [facility] MEDICINE [address] [place] [address] Brynn Quiñonez, RN Care Coordination 04/29/2024 Orders Only [facility] External Provider, [facility] 04/25/2024 Telephone [facility] [address] [facility] [place] [place] [address] Ashanti August FNP Requesting a call back 04/24/2024 10:00 AM EST Office Visit [facility] [address] [place] [address] Ashanti August FNP Type 2 diabetes mellitus with stage 4 chronic kidney disease, without long-term current use of insulin ([facility]) (Primary Dx); Overweight; Cervical radiculopathy; Dietary counseling; Exercise counseling 04/24/2024 Travel 04/23/2024 Telephone [facility] MED[facility] [address] [facility] [place] [place] [address] Ashanti August FNP chart prep 04/12/2024 Patient Outreach [facility] [address] [place] [address] Ashanti August FNP Pre-visit Planning (SDOH screening negative and tobacco screening negative) 04/02/2024 Telephone [facility] [address] [place] [address] Ashanti August FNP Medication Question 03/29/2024 Refill [facility] [address] [place] [address] Ashanti August FNP Primary hypertension 03/29/2024 Telephone [facility] MED[facility]INE [address] [place], [place] [phone] Heriberto العراقي, PharmD 03/29/2024 Refill [facility] [address] [place] [address] Ashanti August FNP Primary hypertension 03/28/2024 Refill [facility] MED[facility] [address] [place] [address] MataAshanti garcia FNP Primary hypertension 03/28/2024 Refill [facility] [address] [place], [place] [phone] Elizabeth Moss DO 03/22/2024 Travel 03/20/2024 Refill [facility] MED[facility]INE [address] [place] [address] [place], [facility] Primary hypertension 03/08/2024 Telephone [facility] MEDICINE [address] [place] [address] Brynn Quiñonez, RN Results 03/06/2024 Orders Only [facility] [address] [place] [address] [place], [facility] Cervical stenosis of spinal canal (Primary Dx) from Last 3 Months Immunizations Name Administration [...] 05/28/2024 3:30 PM EST Office Visit [facility] [address] [place] [address] Anu Romero NP [address] [place], [place] [phone] Health Maintenance Due Date Last Done Comments [...] 04/12/2025 04/12/2024 Depression Screening 04/24/2025 04/24/2024, 04/24/19 Tobacco Screening 04/24/2025 04/24/2024 Colonoscopy 05/04/2025 07/30/2019 Colorectal Cancer Screening 05/04/2025 Eye Exam 05/11/2025 05/11/2023, 02/0 11/2023, 05/11/2023, Additional history exists Mammogram 08/31/2025 09/01/2023, 08/20/2021 DTaP/Tdap/Td Vaccines (3 - Td or Tdap) 01/17/2029 01/17/2019, 11/05/2014 Zoster Vaccines Completed 02/23/2021, 12/16/2020 HIV Screening Completed 09/08/2021 Hepatitis C Screening Completed 09/08/2021 Pneumococcal Vaccine: 50+ Years Completed 11/17/2021 Influenza Vaccine Completed 12/20/2023, , [...] topic Meningococcal Vaccine Aged Out No liz psacual eligible based on patient's age to complete [...] insulin (CMS/HCC) POCT GLYCATED HEMOGLOBIN, TOTAL Routine 04/24/2024 10:15 AM EST Type 2 diabetes mellitus with stage 4 chronic kidney disease, without long-term current use of insulin (CMS/HCC) MR CERVICAL SPINE WO CONTRAST Urgent 03/05/2024 10:06 AM EST Cervical radiculopathy BI MAMMOGRAM SCREENING TOMOSYNTHESIS BILATERAL Routine 09/01/2023 [...] 9:52 AM EDT HM COLONOSCOPY Routine 07/30/2019 [facility] HISTORICAL HPV MRNA E6/E7 Routine 05/16/2019 10:37 AM EST from Last 3 Months or Most Recently Relevant to Health Maintenance Results * XR CERVICAL SPINE 4V (04/29/2024 2:13 PM EST) Anatomical Region Laterality Modality Abdomen Radiographic Miranda ging 04/29/2024 2:13 PM EST Narrative 04/30/2024 8:46 AM EST ? [facility] ? [address] ?[place] [address] ?XRay Report ? Signed ? Patient: Salmeron,Sharri ?MR#: [id number] ?? 703 ? : 1960 ?Acct:[id number] ? Age/Sex: 63 / F ?ADM Date: 04/29/24 ? Loc: HO.HOSX ? Attending Dr: Serge VILLAGOMEZ ? Ordering Physician: Serge Mckeon ?? Date of Service: 04/29/24 ?? Procedure(s): XR cervical spine 4V ?? Accession Number(s): [id number] ? cc: Serge Mckeon; Ashanti August [facility] ? EXAMINATION: ?? XR CERVICAL SPINE ? [...] DD/ 1413 ? TD/TT: 04/29/24 1415 ? Transaction Manager: MSM ? Procedure Note Donotgarrickinterpreter, Image - 04/30/2024 [facility] [address] [place] [address] [address] [place] [address] XRay Report Signed Patient: Allyson Salmeron#: [id number] 703 : 2Acct:[id number] Age/Sex: 63 / FADM Date: 04/29/24 Loc: HO.HOSX Attending Dr: Serge VILLAGOMEZ Ordering Physician: eSrge Mckeon Date of Service: 04/29/24 Procedure(s): XR cervical spine 4V Accession Number(s): [id number] cc: Serge Mckeon; [facility] EXAMINATION: XR CERVICAL SPINE CLINICAL INFORMATION: [...] OV> 04/30/24 0843 DD/ 1413 TD/TT: 04/29/24 141 Transaction Manager: [facility] External Provider IMG XR PROCEDURES Final Result * (ABNORMAL) POCT HGB A1C (04/24/2024 10:15 AM EST) Hemoglobin A1C 6.8(A) 4.0 - 6.0 % [employer] Lot # [id number] Lot# Expiration Date ,984 Blood 04/24/2024 10:1 5 AM EST [facility] POINT OF CARE TEST ENTER/EDIT ORDERABLES Final Result * POCT Glucose (04/24/2024 10:15 AM EST) Glucose Blood, POC 146 60 - 200 mg/dL Blood Capillary blood specimen / Unknown 04/24/2024 10:15 AM EST [facility] POINT OF CARE TEST ENTER/EDIT ORDERABLES Final Result * MR Cervical Spine w/o Contrast (03/05/2024 10:06 AM EST) Anatomical Region Laterality Modality Spine, C-spine Magnetic Resonan ce 03/05/2024 10:0 6 AM EST Narrative 03/05/2024 1:45 PM EST ? [facility] ?[address] ?[place] [address] ? Magnetic Resonance Report ? Signed ? Patient: Salmeron,Sharri ?MR#: [id number] ?? 703 ? : 1960 ?Acct:[id number] ? Age/Sex: 63 / F ?ADM Date: 03/05/24 ? Loc: HO.MRI ? Attending Dr: Ashanti PAREDES ? Ordering Physician: Ashanti August ?? Date of Service: 03/05/24 ?? Procedure(s): MR cervical spine wo con ?? Accession Number(s): [id number] ? cc: Ashanti August ? EXAMINATION: ?? [...] DD/ 1006 ? TD/TT: 03/05/24 1030 ? Transaction Manager: ? Procedure Note Gerson Carrion - 03/05/2024 [place] [address] Magnetic Resonance Report Signed Patient: Allyson Salmeron#: [id number] 703 : 2Acct:[id number] Age/Sex: 63 / FADM Date: 03/05/24 Loc: HO.MRI Attending Dr: Ashanti PAREDES Ordering Physician: Ashanti August Date of Service: 03/05/24 Procedure(s): MR cervical spine wo con Accession Number(s): [id number] cc: Ashanti August EXAMINATION: MR CERVICAL SPINE [...] 03/05/2024 01:42 PM [facility] Dictated By: Vale Flowers MD Signed By: <Electronically signed by Vale Flowers MD in OV> 03/05/24 1342 DD/ 1006 TD/TT: 03/05/24 1030 Transaction Manager: [facility] CARE PROGRAM RESIDENT IMG MRI PROCEDURES Final Resu lt * BI Mammogram Screening Tomosynthesis Bilateral (09/01/2023 8:16 AM EDT) Anatomical Region Laterality Modality Breast Bilateral Mammography 09/01/2023 8:16 AM EDT Narrative 09/26/2023 4:37 PM EDT ? [facility] ? [address] ?[place] [address] ? Mammography Report ? Signed ? Patient: Salmeron,Sharri ?MR#: [id number] ?? 703 ? : 1960 ?Acct:[id number] ? Age/Sex: 63 / F ?ADM Date: 09/01/23 ? Loc: HO.MAMMO ? Attending Dr: Ashanti August CARE PROGRAM RESIDENT ? Ordering Physician: Ashanti August CARE PROGRAM RESIDENT ?Results: 1Nega ?? tive ? Date of Service: 09/01/23 ?Follow Up: 1 Year From Orig ?? inal Mammogram ? Procedure(s): MM tomosynthesis screening BI ?? Accession Number(s): [id number] ? cc: Ashanti August CARE PROGRAM RESIDENT ? EXAMINATION: ?? MM SCREENING DIGITAL BREAST [...] 1634 ? DD/ 0816 ? TD/TT: ? Transaction Manager: ? Procedure Note Sheyla, Image - 09/26/2023 [facility] [address] [place] [address] Mammography Report Signed Patient: Allyson Salmeron#: [id number] 703 : 2Acct:[id number] Age/Sex: 63 / FADM Date: 09/01/23 Loc: [facility] Attending Dr: Ashanti August CARE PROGRAM RESIDENT Ordering Physician: Ashanti August FNPResults: 1Nega tive Date of Service: 09/01/23Follow Up: 1 Year From Orig inal Mammogram Procedure(s): MM tomosynthesis screening BI Accession Number(s): [id number] cc: Ashanti August CARE PROGRAM RESIDENT EXAMINATION: MM SCREENING DIGITAL BREAST TOMOSYNTHESIS, BILATERAL [...] in OV> 09/26/23 1634 DD/ 0816 TD/TT: Transaction Manager: [facility] CARE PROGRAM RESIDENT IMG BI PROCEDURES Final Resul t * (ABNORMAL) Lipid Panel, Standard (05/08/2023 11:13 AM EST) Triglycerides 274(H) <150 mg/dL [facility] Comment:Desirable Triglyceri de: less than 150 mg/dLBorderline High Triglyceride 150-199 mg/dLHigh Triglyceride: 200-499 mg/dLVery High Triglyceride: greater than or equal to 5OO mg/dL Cholesterol 230(H) <200 mg/dL [facility] Comment:Desirable Cholestero l: less than 200 mg/dLBorderline High Cholesterol: 200-239 mg/dLHigh Cholesterol: greater than 239 mg/dL LDL Cholesterol Calculated 130(H) <100 mg/dL [facility] Comment:Desirable LDL: less than 100 mg/dLNear Optimal/Above Optimal LDL: 110- 129 mg/dLBorderline High LDL: 130-159 mg/dLHigh LDL: 160-189 mg/dLVery High LDL: greater than or equal to 190 mg/dL HDL Cholesterol 46 >40 mg/dL [facility] Comment:Desirable HDL: great er than 40 mg/dL Note: This HDL assay may give artificially low results in patients with liver disease. Blood Venous blood specimen / Unknown 05/08/2023 11:13 AM EST 05/08/2023 1:10 PM EST [facility] CARE PROGRAM RESIDENT LAB BLOOD ORDERABLES Final Re sult [facility] [address] [place] [address] [phone] * HEPATITIS C AB W/REFL TO HCV RNA, QN, PCR (09/08/2021 9:52 AM EDT) HEPATITIS C ANTIBODY NON-REACT [place] NON-REACT [place] [facility] INDEX 0.04 <1.00 [facility] Comment: ?? HCV antibody was non-reactive. There is no laboratory ?? evidence of HCV infection. ?? In most cases, no further action is required. However, if recent HCV exposure is suspected, a test for HCV RNA (test code 23785) is suggested. ?? For additional information please refer to http://Xuehuile.Moat/faq/COA96f6 (This link is being provided for informational/ educational purposes only.) ?? 09/08/2021 9:52 AM EDT Micaela Hernandez NP HISTORICAL/NON ORDERABLE LABS F inal Result [facility] [address] * HIV 1/2 ANTIGEN/ANTIBODY,FOURTH GENERATION W/RFL (09/08/2021 9:52 AM EDT) HIV-1/2 ANTIGEN AND ANTIBODIES, 4TH GENERATION W/ REFLEX NON-REACT [place] NON-REACT [place] [facility] Comment: HIV-1 antigen and HIV-1/HIV-2 [...] ? For additional information please refer to http://Xuehuile.Moat/faq/WSB155 (This link is being provided for informational/ educational purposes only.) ? The performance of this assay has not been clinically validated in patients less than 2 years old. ?? 09/08/2021 9:52 AM EDT Micaela Hernandez STITCH BONDER MACHINE OPERATOR HELPER LAB BLOOD ORDERABLES Final Resu lt [facility] [address] [place] [address], * Hm Colonoscopy (07/30/2019) Colonoscopy Normal Normal Narrative Marta Adam - 07/30/2019 Repeat in 3 years Historical Provider MD HEALTH MAINTENANCE Final Result * HPV mRNA E6/E7 (05/16/2019 10:37 AM EST) HPV mRNA E6/E7 Not Detected NOT DETECTED [facility] Comment: This test was performed using the APTIMA(R) HPV Assay ([employer] This assay detects E6/E7 viral messenger RNA (mRNA) from 14 high-risk HPV types (16,18,31,33,35,39,45,51, 52,56,58,59,66,68). For additional information please refer to: http://Xuehuile.Moat/faq/LSW374j3 (This link is being provided for informational/ educational purposes only.) The analytical performance characteristics of this assay have been determined by [employer] [place], [place]. The modifications have not been cleared or approved by the FDA. This assay has been validated pursuant to the CLIA regulations and is used for clinical purposes. Test Performed by [employer], [employer], [address] [place] [address] Bird Barber M.D., Ph.D., Director of [employer] , CLIA [id number] Please note: ??Effective 12/14/2015, HPV testing will be performed using [employer] APTIMA test which targets mRNA. Detecting mRNA instead of DNA, as in older methods, offers significant improvements in specificity. 05/16/2019 10:3 7 AM EST us [facility]i [facility] HISTORICAL/NON ORDERABLE LABS Final Result [facility] [address] from Last 3 Months or Most Recently Relevant to Health Maintenance Insurance [facility] Care Teams Skid [address] Man Relationship Specialty Start Date End Date Ashanti August FNP [address] [place] [phone] PCP - General Family Medicine 11/24/21 Jeff Villarreal FNP [address] [place] [phone] Nurse Practitioner Family Medicine 02/20/23
--- OUTSIDE RECORDS SUMMARY | 2024-05-24 13:10 | XMS_ITS | Encounter Summary ---
Author Organization [employer] Address [address] [place] [address] [address] [place] [address] Care Team Providers Care Glazier Supervisor Name Role Phone Mata Ashanti TARIFF SUPERVISOR Primary Care Provider [phone] Jeff Villarreal Unavailable Unavailable Encounter Details Date Type Department Care Team (Late Contact Info) Description 03/24/2022 Orders Only [facility] [address] [place] [address] Isabel Escalante LPN Social History Tobacco Use [...] Description 05/28/2024 3:30 PM EST Office Visit [facility] [address] [place] [address] Anu Romero NP [address] [place] [address] documented as of this encounter Visit Diagnoses Not on filedocumented in this encounter Care Teams Glazier Supervisor Relationship Specialty Start Date End Date Ashanti August FNP [address] [place] [address] PCP - General Family Medicine 11/24/21 Jeff Villarreal FNP [address] [place] [address] [place] [address] Nurse Practitioner Family Medicine 02/20/23 documented as of this encounter
--- OUTSIDE RECORDS SUMMARY | 2024-05-24 13:11 | XMS_ITS | Encounter Summary ---
Author Organization [employer] Address [address] [place] [address] 7 [place] [address] Care Team Providers Care Lining Sewer Name Role Phone [facility] Primary Care Provider [phone] Jeff Villarreal [facility] Unavailable Unavailable Reason for Visit * Reason Comments Med Refill Encounter Details Date Type Department Care Team ([facility] st Contact Info) Description 03/28/[address] [facility] [address] [place] [address] [facility] 230 [place], [place] [phone] Primary hypertension Social History Tobacco Use Types [...] 05/28/2024 3:30 PM EST Office [facility] 230 [place] [address] Anu Romero NP 230 [place] [address] documented as of this encounter Visit Diagnoses Diagnosis Primary hypertension Unspecified essential hypertension documented in this encounter Additional Health Concerns Assessment Noted Time PHQ-9 Depression Total Score: 0 12/20/19 10:36 AM EDT documented as of this encounter Care Teams Lining Sewer Relationship Specialty Start Date End Date Ashanti August FNP 230 [place] [address] PCP - General Family Medicine 11/24/21 Jeff Villarreal FNP 230 [place] [address] Nurse Practitioner Family Medicine 02/20/23 documented as of this encounter
--- OUTSIDE RECORDS SUMMARY | 2024-05-24 13:11 | XMS_ITS | Encounter Summary ---
Author Organization [employer] Address [address] [place] [address] 7 [place] [address] Care Team Providers Care Upper Lining Cementer Name Role Phone [facility] Primary Care Provider [phone] Jeff Villarreal [facility] Unavailable Unavailable Reason for Visit * Reason Onset Date Comments Hospital Follow-up 07/28/2023 Encounter Details Date Type Department Care Team (Late st Contact Info) Description 07/28/2023 Telephone [facility] 230 [place], [place] [phone] [facility] 230 [place], [place] [phone] Hospital Follow-up Social History Tobacco Use Types [...] from pt requesting a HDF appt. Hospital: [facility] Date of admission: 07/19 Discharge date: 07/25 Diagnosed: Massive UTI documented in this encounter Plan of Treatment Upcoming Encounters Date Type Department Care Team (Late st Contact Info) Description 05/28/2024 3:30 PM EST Office Visit [facility] 230 [place] [address] Anu Romero NP 230 [place] [address] documented as of this encounter Visit Diagnoses Not on filedocumented in this encounter Additional Health Concerns Assessment Noted Time PHQ-9 Depression Total Score: 9 07/05/19 24 4:20 PM EDT documented as of this encounter Care Teams Upper Lining Cementer Relationship Specialty Start Date End Date Ashanti August FNP [address] [place] [address] PCP - General Family Medicine 8/24/22 Jeff Villarreal FNP [address] [place] [address] Nurse Practitioner Family Medicine 02/20/23 documented as of this encounter
--- OUTSIDE RECORDS SUMMARY | 2024-05-24 13:11 | XMS_ITS | Encounter Summary ---
Author Organization [employer] Address [address] [place] [address] 7 [place] [address] Care Team Providers Care Sheet Metal Work Furnace Installer Name Role Phone Ashanti August BACTERIOLOGIST [employer] Primary Care Provider [phone] Jeff Villarreal Unavailable Unavailable Reason for Visit * Reason Comments Med Refill Encounter Details Date Type Department Care Team (Late st Contact Info) Description 07/30/2023 Refill [facility] [address] [place] [address] Jeff Villarreal FNP Depression, unspecified depression type [...] 3:30 PM EST Office Visit [facility] [address] [place] [address] Anu Romero NP 230 [place] [address] documented as of this encounter Visit Diagnoses Diagnosis Depression, unspecified depression type documented in this encounter Additional Health Concerns Assessment Noted Time PHQ-9 Depression Total Score: 9 07/05/19 24 4:20 PM EDT documented as of this encounter Care Teams Sheet Metal Work Furnace Installer Relationship Specialty Start Date End Date Ashanti August FNP 230 [place] [address] PCP - General Family Medicine 11/24/21 Jeff Villarreal FNP [address] [place] [address] Nurse Practitioner Family Medicine 02/20/23 documented as of this encounter
--- OUTSIDE RECORDS SUMMARY | 2024-05-24 13:11 | XMS_ITS | Clinical Summary ---
Author Organization [facility] Address [address] [address] Phone Care Team Providers Care Paradichlorobenzene Machine Operator Name Role Phone Unavailable Primary Care Provider [...] cirrhosis ?? Followed by [facility] GI Aortic valve sclerosis 10/25/2022 Anemia 10/25/2022 [...] results. ?? S/p multiple spinal surgeries through [facility] 09/2021 for cyst removal ?? 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 Followed by [facility] urology ?? Bethanechol Finding of hand region 09/20/2022 Overview (03/07/2023): Last Assessment & Plan: Due to increased albuterol use, trest of neurological exam is normal. No evidence of other EPS. Vascular insufficiency of intestine 11/24/2021 Ischemic colitis 11/24/2021 Overview (02/21/2022): Added automatically from request for surgery [id number] Congestive heart failure 02/27/2021 023 Overview (03/07/2023): [...] ?? Trelegy ellipta ?? Albuterol PRN ?? [facility] pulmonology Fibromyalgia 12/08/2020 03/07/2023 Overview (03/07/2023): ?? [...] Visit [facility] [address] [place] [address] Nguyễn Baird [...] Visit [facility] [address] [place] [address] [place] [address] Nguyễn Baird MD [address] [facility] [address] [place] [phone] Health Maintenance Due Date Last Done Comments Breast Cancer Screening 1960 Colorectal Cancer Screening: Annual FOBT 2010 Colorectal Cancer Screening: Colonoscopy 2010 Colorectal Cancer Screening: Sigmoidoscopy 2010 Diabetes: Ophthalmology Exam 05/03/2020 Diabetes: Pedal Pulse Checked 05/03/2020 Diabetes: Sensory Foot Exam 05/03/2020 Diabetes: Visual Foot Exam 05/03/2020 Hepatitis B Vaccine (1 of 3 - Risk 3-dose series) 2021 Diabetes: Hemoglobin A1C 07/23/2024 025, 01/31/2024, 01/02/2023, Additional history exists Pneumococcal Vaccine: Pediat rics [...] mmol/L PVNMA 12/17/2019 us [facility] [id number] LICITED RESULTS Final Result PVNMA from Last 3 Months or Most Recently Relevant to Health Maintenance Insurance [facility] ([id number]) * Guarantor: Sharri Salmeron Account Type Relation to Patient Date of Phone Billing Address Personal/Family Self 1960 [address] [place] [address] [place] [address] [facility] ([id number])
--- OUTSIDE RECORDS SUMMARY | 2024-05-24 13:11 | XMS_ITS | Encounter Summary ---
Author Organization [employer] Address [address] [facility] 7t [place] [address] Care Team Providers Care Radiation Oncology Therapist Name Role Phone Ashanti August PSYCHOLOGIST INDUSTRIAL ORGANIZATIONAL Primary Care Provider [phone] Jeff Villarreal [employer]CHOLOG[employer] Unavailable Unavailable Encounter Details Date Type Department Care Team (Late st Contact Info) Description 02/21/2023 Orders Only [facility] [address] [place] [address] Isabel Escalante LPN Social History Tobacco Use [...] Description 05/28/2024 3:30 PM EST Office Visit [facility] 230 [place] [address] Anu Romero NP 230 [place] [address] documented as of this encounter Visit Diagnoses Not on filedocumented in this encounter Additional Health Concerns Assessment Noted Time PHQ-9 Depression Total Score: 14 023 9:52 AM EDT documented as of this encounter Care Teams Radiation Oncology Therapist Relationship Specialty Start Date End Date Ashanti August FNP [address] [place] [address] PCP - General Family Medicine 11/24/21 Jeff Villarreal FNP [address] [place] [address] Nurse Practitioner Family Medicine 02/20/23 documented as of this encounter
--- OUTSIDE RECORDS SUMMARY | 2024-05-24 13:11 | XMS_ITS | Encounter Summary ---
Author Organization [employer] Address [address] [place] [address] 7 [place] [address] Care Team Providers Care Etl Database Developer Name Role Phone Ashanti August BRAND DIRECTOR Primary Care Provider [phone] Jeff Villarreal Unavailable Unavailable Reason for Visit * Reason Comments Med Refill Encounter Details Date Type Department Care Team ([facility] st Contact Info) Description 04/28/2023 Refill [facility] 230 [place] [address] Jeff Villarreal FNP Social History Tobacco Use [...] Description 05/28/2024 3:30 PM EST Office Visit [facility] MED[facility]INE [address] [place] [address] Anu Romero NP 230 [place] [address] documented as of this encounter Visit Diagnoses Not on filedocumented in this encounter Additional Health Concerns Assessment Noted Time PHQ-9 Depression Total Score: 7 04/13/19 24 8:57 AM EST documented as of this encounter Care Teams Etl Database Developer Relationship Specialty Start Date End Date Ashanti August FNP [address] [place] [address] PCP - General Family Medicine 11/24/21 Jeff Villarreal FNP [address] [place] [address] Nurse Practitioner Family Medicine 02/20/23 documented as of this encounter
--- OUTSIDE RECORDS SUMMARY | 2024-05-24 13:11 | XMS_ITS | Encounter Summary ---
Author Organization [employer] Address [address] [place] [address] 7 [place] [address] Care Team Providers Care Deputy Clerk Name Role Phone [facility] Primary Care Provider [phone] Jeff Villarreal [facility] Unavailable Unavailable Reason for Visit * Reason Comments Med Refill Encounter Details Date Type Department Care Team ([facility] st Contact Info) Description 03/29/2024 Refill [facility] MED[facility]INE [address] [place] [address] [facility] 230 [place], [place] [phone] Primary hypertension Social History Tobacco Use Types [...] Description 05/28/2024 3:30 PM EST Office Visit [facility] MED[facility]INE 230 [place] [address] Anu Romero NP 230 [place] [address] documented as of this encounter Visit Diagnoses Diagnosis Primary hypertension Unspecified essential hypertension documented in this encounter Additional Health Concerns Assessment Noted Time PHQ-9 Depression Total Score: 0 12/20/19 10:36 AM EDT documented as of this encounter Care Teams Deputy Clerk Relationship Specialty Start Date End Date Ashanti August FNP 230 [place] [address] PCP - General Family Medicine 11/24/21 Jeff Villarreal FNP [address] [place] [address] Nurse Practitioner Family Medicine 02/20/23 documented as of this encounter
--- OUTSIDE RECORDS SUMMARY | 2024-05-24 13:11 | XMS_ITS | Encounter Summary ---
Author Organization [employer] Address [address] [place] [address] 7 [place] [address] Care Team Providers Care School Physical Therapist Name Role Phone [facility] Primary Care Provider Jeff Villarreal [facility] Unavailable Unavailable Reason for Visit * Reason Comments Med Refill Encounter Details Date Type Department Care Team ([facility] st Contact Info) Description 11/01/2023 Refill [facility] 230 [place] [address] [facility] [address] [place], [place] [phone] Chronic obstructive pulmonary disease, unspecified COPD type [...] Description 05/28/2024 3:30 PM EST Office Visit [facility] 230 [place] [address] Anu Romero NP 230 [place] [address] documented as of this encounter Visit Diagnoses Diagnosis Chronic obstructive pulmonary disease, unspecified COPD type (CMS/HCC) documented in this encounter Additional Health Concerns Assessment Noted Time PHQ-9 Depression Total Score: 15 024 10:15 AM EDT documented as of this encounter Care Teams School Physical Therapist Relationship Specialty Start Date End Date Ashanti August FNP 230 [place] [address] PCP - General Family Medicine 11/24/21 Jeff Villarreal FNP [address] [place] [address] Nurse Practitioner Family Medicine 02/20/23 documented as of this encounter
--- OUTSIDE RECORDS SUMMARY | 2024-05-24 13:11 | XMS_ITS | Encounter Summary ---
Author Organization [employer] Address [address] [place] [address] 7 [place] [address] Care Team Providers Care Truck Driver Instructor Name Role Phone [facility] Primary Care Provider [phone] Jeff Villarreal [facility] Unavailable Unavailable Reason for Visit * Reason Onset Date Comments ER Follow-up 04/25/2023 Encounter Details Date Type Department Care Team (Late st Contact Info) Description 04/25/2023 Telephone [facility] MED[facility]INE [address] [place], [place] [phone] [facility] [address] [place], [place] [phone] ER Follow-up Social History Tobacco Use Types [...] 04/25/2023 9:39 AM EST Pt. Admitted to [facility] 04/19-04/21 for acute hyperkalemia, UTI and metabolic encephalopathy. Please contact for HDF, thank you! * Telephone Encounter - Kem Carrillo - 04/25/2023 9:24 AM EST Patient calling to report ED visit on : Date: 04/19/23 Hospital: [facility] Seen for: UTI Patient advised will forward to team nurse for follow up documented in this encounter Plan of Treatment Upcoming Encounters Date Type Department Care Team (Late st Contact Info) Description 05/28/2024 3:30 PM EST Office Visit [facility] [address] [place] [address] Anu Romero NP 230 [place] [address] documented as of this encounter Visit Diagnoses Not on filedocumented in this encounter Additional Health Concerns Assessment Noted Time PHQ-9 Depression Total Score: 7 04/13/19 24 8:57 AM EST documented as of this encounter Care Teams Truck Driver Instructor Relationship Specialty Start Date End Date Ashanti August FNP [address] [place] [address] PCP - General Family Medicine 11/24/21 Jeff Villarreal FNP [address] [place] [address] Nurse Practitioner Family Medicine 02/20/23 documented as of this encounter
--- OUTSIDE RECORDS SUMMARY | 2024-05-24 13:11 | XMS_ITS | Encounter Summary ---
Author Organization [employer] Address [address] [place] [address] 7t [place] [address] Care Team Providers Care Base Filler Name Role Phone Ashanti August [facility] Primary Care Provider [phone] Jeff Villarreal TANGLED YARN WORKER Unavailable Unavailable Encounter Details Date Type Department Care Team (Late st Contact Info) Description 03/29/2024 Telephone [facility] [address] [place] [address] Heriberto العراقي, KeithD Social History Tobacco Use [...] 05/28/2024 3:30 PM EST Office Visit [facility] 230 [place] [address] Anu Romero NP 230 [place] [address] documented as of this encounter Visit Diagnoses Not on filedocumented in this encounter Additional Health Concerns Assessment Noted Time PHQ-9 Depression Total Score: 0 12/20/19 24 10:36 AM EDT documented as of this encounter Care Teams Base Filler Relationship Specialty Start Date End Date Ashanti August FNP [address] [place] [address] PCP - General Family Medicine 11/24/21 Jeff Villarreal FNP 230 [place] [address] Nurse Practitioner Family Medicine 02/20/23 documented as of this encounter
--- OUTSIDE RECORDS SUMMARY | 2024-05-24 13:11 | XMS_ITS | Encounter Summary ---
Author Organization [employer] Address [address] [place] [address] 7t [place] [address] Care Team Providers Care Flood Control Engineer Name Role Phone Ashanti August BELT AND LINK SHOP SUPERVISOR Primary Care Provider [phone] Jeff Villarreal [employer] SH[employer] SUPERVISOR Unavailable Unavailable Encounter Details Date Type Department Care Team (Late st Contact Info) Description 02/16/2023 Abstract [facility]INE [address] [place] [address] Marta Adam Social History Tobacco Use Types [...] 3:30 PM EST Office Visit [facility] MED[facility]INE [address] [place], [place] [phone] Anu Romero NP [address] [place] [address] documented as of this encounter Procedures Procedure [...] documented as of this encounter Care Teams Flood Control Engineer Relationship Specialty Start Date End Date Ashanti August FNP [address] [place] [address] PCP - General Family Medicine 11/24/21 Jeff Villarreal FNP [address] [place] [address] Nurse Practitioner Family Medicine 02/20/23 documented as of this encounter
--- OUTSIDE RECORDS SUMMARY | 2024-05-24 13:11 | XMS_ITS | Encounter Summary ---
Author Organization [employer] Address [address] [place] [address] 7 [place] [address] Care Team Providers Care Stenciling Machine Tender Name Role Phone [facility] Primary Care Provider [phone] Jeff Villarreal IRRIGATION TEACHER Unavailable Unavailable Encounter Details Date Type Department Care Team (Late st Contact Info) Description 04/29/2024 Orders Only [facility] External Provider, [facility] Social History Tobacco Use Types Packs/Day Years [...] 3:30 PM EST Office Visit [facility] MED[facility]INE 230 [place] [address] Anu Romero NP 230 [place] [address] documented as of this encounter Procedures Procedure Name Priority Date/Time Associated Diagnosis Comments XR CERVICAL SPINE 4V Routine 04/29/2024 2:13 PM EST documented in this encounter Results * XR CERVICAL SPINE 4V (04/29/2024 2:13 PM EST) Anatomical Region Laterality Modality Abdomen Radiographic Miranda ging 04/29/2024 2:13 PM EST Narrative 04/30/2024 8:46 AM EST ? [facility] ? [address] ?[place] [address] ?XRay Report ? Signed ? Patient: Salmeron,Sharri ?MR#: [id number] ?? [id number] ? : 1960 ?Acct:[id number] ? Age/Sex: 63 / F ?ADM Date: 01/27/25 ? Loc: HO.HOSX ? Attending Dr: Serge VILLAGOMEZ ? Ordering Physician: Serge Mckeon ?? Date of Service: 04/29/24 ?? Procedure(s): XR cervical spine 4V ?? Accession Number(s): [id number] ? cc: Serge Mckeon; [facility] ? EXAMINATION: ?? XR CERVICAL SPINE [...] DD/ 1413 ? TD/TT: 04/29/24 1415 ? Sales Representative Sales Manager: MSM ? Procedure Note Sheyla, Image - 04/30/2024 [facility] [address] [place] [address] [address] [place] [address] XRay Report Signed Patient: Allyson Salmeron#: [id number] : 2Acct:[id number] Age/Sex: 63 / FADM Date: 04/29/24 Loc: HO.HOSX Attending Dr: Serge VILLAGOMEZ Ordering Physician: Serge Mckeon Date of Service: 04/29/24 Procedure(s): XR cervical spine 4V Accession Number(s): [id number] cc: Serge Mckeon; Ashanti August IRRIGATION TEACHER EXAMINATION: XR CERVICAL SPINE CLINICAL INFORMATION: M43.12 [...] 04/30/24 0843 DD/ 1413 TD/TT: 04/29/24 1415 Sales Representative Sales Manager: [facility] External Provider IMG XR PROCEDURES Final Result documented in this encounter Visit Diagnoses Not on filedocumented in this encounter Additional Health Concerns Assessment Noted Time PHQ-9 Depression Total Score: 0 04/24/19 10:11 AM EST documented as of this encounter Care Teams Stenciling Machine Tender Relationship Specialty Start Date End Date Ashanti August FNP [address] [place] [address] PCP - General Family Medicine 11/24/21 Jeff Villarreal FNP [address] [place] [address] Nurse Practitioner Family Medicine 02/20/23 documented as of this encounter
--- OUTSIDE RECORDS SUMMARY | 2024-05-24 13:11 | XMS_ITS | Encounter Summary ---
Author Organization [employer] Address [address] [place] [address] 7 [place] [address] Care Team Providers Care Orthopedic Assistant Name Role Phone Ashanti August Primary Care Provider [phone] Jeff Villarreal Unavailable Unavailable Reason for Visit * Reason Comments Med Refill Encounter Details Date Type Department Care Team ([facility] Contact Info) Description 10/16/2022 Refill [facility] MEDICINE [address] [place], [place] [phone] Jeff Villarreal FNP Depression, unspecified depression type [...] Office Visit [facility]INE [address] [place] [address] Anu Romero, GABBY 230 [place] [address] documented as of this encounter Visit Diagnoses Diagnosis Depression, unspecified depression type documented in this encounter Additional Health Concerns Assessment Noted Time PHQ-9 Depression Total Score: 13 023 2:44 PM EST documented as of this encounter Care Teams Orthopedic Assistant Relationship Specialty Start Date End Date Ashanti August FNP 230 [place] [address] PCP - General Family Medicine 11/24/21 Jeff Villarreal FNP [address] [place] [address] Nurse Practitioner Family Medicine 02/20/23 documented as of this encounter
--- OUTSIDE RECORDS SUMMARY | 2024-05-24 13:11 | XMS_ITS | Encounter Summary ---
Author Organization [employer] Address [address] [place] [address] 7t [place] [address] Care Team Providers Care Fiberglass Boat Finisher Name Role Phone Ashanti August TAPPER SUPERVISOR Primary Care Provider [phone] Jeff Villarreal TAPPER SUPERVISOR Unavailable Unavailable Encounter Details Date Type Department Care Team (Late Contact Info) Description 11/07/2022 Orders Only [facility]S [address] [place], [place] [phone] Elizabeth Meadows LPN Social History Tobacco Use [...] Visit [facility] MEDICINE 230 [place], [place] [phone] Anu Romero NP 230 [place], [place] [phone] documented as of this encounter Visit Diagnoses Not on filedocumented in this encounter Additional Health Concerns Assessment Noted Time PHQ-9 Depression Total Score: 24 023 10:26 AM EDT documented as of this encounter Care Teams Fiberglass Boat Finisher Relationship Specialty Start Date End Date Ashanti August FNP 230 [place] [address] PCP - General Family Medicine 11/24/21 Jeff Villarreal FNP [address] [place] [address] Nurse Practitioner Family Medicine 02/20/23 documented as of this encounter
--- OUTSIDE RECORDS SUMMARY | 2024-05-24 13:11 | XMS_ITS | Encounter Summary ---
Author Organization [employer] Address [address] [place] [address] 7 [place] [address] Care Team Providers Care Alum Plant Supervisor Name Role Phone [facility] Primary Care Provider [phone] Jeff Villarreal [facility] Unavailable Unavailable Reason for Visit * Reason Comments Med Refill Encounter Details Date Type Department Care Team ([facility] st Contact Info) Description 03/20/[address] [facility] [address] [place] [address] [facility] [address] [place], [place] [phone] Primary hypertension Social History Tobacco Use Types [...] 3:30 PM EST Office Visit [facility] [address] [place] [address] Anu Romero NP [address] [place] [address] documented as of this encounter Visit Diagnoses Diagnosis Primary hypertension Unspecified essential hypertension documented in this encounter Additional Health Concerns Assessment Noted Time PHQ-9 Depression Total Score: 0 12/20/19 10:36 AM EDT documented as of this encounter Care Teams Alum Plant Supervisor Relationship Specialty Start Date End Date Ashanti August FNP [address] [place] [address] PCP - General Family Medicine 11/24/21 Jeff Villarreal FNP [address] [place] [address] Nurse Practitioner Family Medicine 02/20/23 documented as of this encounter
--- OUTSIDE RECORDS SUMMARY | 2024-05-24 13:11 | XMS_ITS | Clinical Summary ---
Author Organization [facility] Address [address] [place] [address] Care Team Providers Care Air Intelligence Officer Name Role Phone Pcp, No Primary Care [...] (11/24/2021): Added automatically from request for surgery [id number] Ischemic bowel disease 11/24/2021 Social History Tobacco [...] Nonreactive Nonreactive S/CO 11/24/2021 11:21 AM EDT [employer] [facility] Hepatitis B Core Antibody IgM Nonreactive Nonreactive 11/24/2021 11:21 AM EDT [employer] [facility] Hepatitis B Surface Ag Screen Nonreactive Nonreactive 11/24/2021 11:21 AM EDT [employer] [facility] Hepatitis C Antibody 0.54 0.00 - 0.79 S/CO ratio 11/24/2021 11:21 AM EDT [facility] Hepatitis C Antibody Interpretation Nonreactive Nonreactive 11/24/2021 11:21 AM EDT [employer] [facility] Hepatitis Interpretation: Results inconsistent with acute Hepatitis A, B or C Virus infection. 11/24/2021 11:21 AM EDT [employer] [facility] Blood specimen (specimen) Serum specimen / Unknown 11/24/2021 6:13 AM EDT 11/24/2021 6:40 AM EDT Mary Grace Huerta PHYSICS INSTRUCTOR LAB BLOOD ORDERABLES [facility] N[facility] [address] [place] [address] from Last 3 Months or Most Recently Relevant to Health Maintenance Advance Directives * Full Code (Latest Code Status on File) Date Activated Date Inactivated Comments 11/24/2021 3:35 AM 12/15/2021 3:20 PM Care Teams Air Intelligence Officer Relationship Specialty Start Date End Date Pcp, No PCP - General General Medicine 11/28/21
--- OUTSIDE RECORDS SUMMARY | 2024-05-24 13:11 | XMS_ITS | Encounter Summary ---
Author Organization [employer] Address [address] [place] [address] 7 [place] [address] Care Team Providers Care Blending Operator Name Role Phone [facility] Primary Care Provider [phone] Jeff Villarreal [facility] Unavailable Unavailable Reason for Visit * Reason Onset Date Comments Med Refill 04/04/2023 Encounter Details Date Type Department Care Team (Late st Contact Info) Description 04/04/[address] [facility] [address] [place], [place] [phone] [facility] [address] [place] [address] Med Refill Social History Tobacco Use Types [...] 2 MG tablet To be sent to: [facility] - [place], [place] - [address] [facility] documented in this encounter Plan of Treatment Upcoming Encounters Date Type Department Care Team (Late st Contact Info) Description 05/28/2024 3:30 PM EST Office Visit [facility] [address] [place] [address] Anu Romero NP [address] [place] [address] documented as of this encounter Visit Diagnoses Not on filedocumented in this encounter Additional Health Concerns Assessment Noted Time PHQ-9 Depression Total Score: 0 12/04/20 23 12:04 PM EST documented as of this encounter Care Teams Blending Operator Relationship Specialty Start Date End Date Ashanti August FNP [address] [place] [address] PCP - General Family Medicine 11/24/21 Jeff Villarreal FNP [address] [place] [address] Nurse Practitioner Family Medicine 02/20/23 documented as of this encounter
== END ==
LOC: HO.CARD 12:40
PROVIDERS: PCP Registered Nurse; Visit Provider Internal Medicine
DX: I35.0 Nonrheumatic aortic (valve) stenosis (principal)
CPT/HCPCS: 93306

== ENCOUNTER → 2024-05-24 12:50 | Outpatient (BNV) | payer OTHER, SELFPAY | PROVIDERS: PCP Registered Nurse; Visit Provider Internal Medicine | DX: I35.8 Other nonrheumatic aortic valve disorders (principal); I34.81 Nonrheumatic mitral (valve) annulus calcification; I42.2 Other hypertrophic cardiomyopathy | CPT/HCPCS: 93306 ==

== ENCOUNTER → 2024-05-30 09:32 | Day surgery (SDC) | payer OTHER, SELFPAY ==
[2024-05-23 10:32] VITALS: BP 137/87; PULSE 80; RESP 16; O2SAT 97; BMI 28.9
--- NOTE | 2024-05-27 14:24 | HO.ANESPROP2 ---
HPI - Anesthesia Eval Consult details Narrative: 63yo F for C6-7,C7-T1 Ant Cerv Discectomy w/ fusion with PLATE, 05/30/24 Pt eval in PAT 05/23/[address] Nuñez - ECHO done and ok to proceed per Dr Wells Anesthesia Pre-Procedure Meds Is the patient on any of the following meds?: GLP1/DPP4 PMFSH Active Problems Active Problems: All Active Problems Spondylolisthesis, cervical region (Acute) Abdominal bloating (Acute) Nausea (Acute) Heart palpitations (Acute) Cognitive impairment (Acute) Orthopnea (Acute) Personal history of nicotine dependence (Acute) Acute UTI (Acute) Chronic pain syndrome (Acute) Arthritis of right hip (Acute) Postlaminectomy syndrome (Acute) Cirrhosis (Acute) Encounter for preoperative pulmonary examination (Acute) Spinal stenosis at L4-L5 level (Acute) Sacroiliac joint dysfunction (Acute) Lumbar radiculopathy (Acute) Lumbar spondylosis (Acute) Pulmonary nodules (Acute) Diastolic dysfunction (Acute) Aortic valve sclerosis (Acute) Shortness of breath (Acute) Urinary retention with incomplete bladder emptying (Acute) Supplemental oxygen dependent (Acute) Anemia (Acute) Acute respiratory failure with hypoxia (Acute) Sepsis (Acute) COPD exacerbation (Acute) Community acquired pneumonia (Acute) Dyspnea on exertion (Acute) COPD (chronic obstructive pulmonary disease) (Acute) Pneumonia (Acute) Urinary hesitancy (Acute) Weak urinary stream (Acute) Bacteremia (Acute) Diabetes mellitus (Acute) Frequent falls (Acute) Steatohepatitis (Acute) Dysphagia, pharyngoesophageal phase (Acute) GERD without esophagitis (Acute) History of colon polyps (Acute) IBS (irritable bowel syndrome) (Acute) Fibromyalgia (Acute) Past Medical History Medical History (Updated 05/23/24 @ 10:28 by Sweta Barnes RN) Cervical cancer Back pain GERD (gastroesophageal reflux disease) Seizures Oxygen dependent Murmur HTN (hypertension) Witnessed seizure-like activity Dysuria Memory impairment Sleep apnea Ischemic colitis Hyperkalemia Frequent falls Dysphagia Arthritis Tremor of both hands Aortic valve stenosis Kidney disease Hyperlipidemia Fatty liver CHF (congestive heart failure) Obesity Bacteremia ELIZABET (acute kidney injury) Encephalopathy UTI (urinary tract infection) Frequent falls Acute exacerbation of chronic obstructive airways disease Urinary retention with incomplete bladder emptying Steatohepatitis IBS (irritable bowel syndrome) History of colon polyps Dysphagia, pharyngoesophageal phase GERD without esophagitis Hx of hereditary disease Diabetes mellitus Depression Fibromyalgia Family History Family History Father History of heart attack Hx of type 1 diabetes mellitus Mother Alive and well Family history of problems with anesthesia: No Surgical History Surgical History (Updated 05/23/24 @ 10:20 by Sweta Barnes RN) Hx of fusion of cervical spine Hx of abdominal surgery History of back surgery History of esophagogastroduodenoscopy (EGD) S/p total knee replacement, bilateral Hx of tubal ligation Hx of cholecystectomy Hx of endoscopy History of colonoscopy History of Problems with Anesthesia: No Social History Social History Household Members: Significant Other Housing: Apartment Are you a primary home care provider to a significant other at home: No Do you presently have 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 If so, by whom?: No Are you DNR?: No Advance Directives: Yes Advance Directives Information Provided: No Advance Directives on File: Yes Advance Directives Date on File: 10/20/20 Recently lost weight without trying: No Eating poorly because of decreased appetite: No Nutrition Risks: No Nutritional Risk Patient : No : No Poor oral hygiene: Yes (missing teeth on the upper) service: No Current occupational status: unemployed Meds Allergies Allergy/AdvReac Type Severity Reaction Status Date / Time oxycodone [Percocet] Allergy Intermediate Itching Verified 05/01/24 13:53 Vicodin Allergy Intermediate itching Uncoded 05/01/24 13:53 Home Medications ?Medication ?Instructions ?Recorded ?Confirmed ?Last Taken ?Type blood sugar diagnostic #10 ea 06/25/20 04/05/24 Unknown History blood-glucose meter (FreeStyle #1 ea 03/02/21 04/05/24 Unknown History [place] Lite kit) inhalational spacing device #1 ea 03/02/21 04/05/24 Unknown History (Compact Space Chamber) lancets 33 gauge (TRUEplus Lancets) #100 ea 03/02/21 04/05/24 Unknown History bupropion HCl 150 mg 24 hr tablet, 150 mg PO QAM 04/19/23 05/23/24 07/20/23 History extended release atorvastatin 80 mg tablet 80 mg PO BEDTIME 01/30/24 05/23/24 Unknown History clonidine HCl 0.1 mg tablet 0.1 mg PO BID 01/30/24 05/23/24 Unknown History quetiapine 100 mg tablet 100 mg PO BEDTIME 01/30/24 05/23/24 Unknown History risperidone 0.25 mg tablet 1 mg PO BEDTIME 01/30/24 05/23/24 Unknown History vitamin E (dl, acetate) 45 mg (100 45 mg PO DAILY 01/30/24 05/23/24 Unknown History unit) capsule dulaglutide 0.75 mg/0.5 mL 0.75 mg subcut QWEEK 05/01/24 05/23/24 Unknown History subcutaneous pen injector (Trulicity) cholecalciferol (vitamin D3) 50 50 mcg PO DAILY 05/23/24 05/23/24 Unknown History mcg (2,000 unit) capsule (Vitamin D3) hydroxyzine HCl 10 mg tablet 10 mg PO TID PRN Anxiety 05/23/24 05/23/24 Unknown History Exam Height,Weight and Vital Signs: Height 5 ft 3 in Weight 73.936 kg Last Vital Signs Pulse 80 05/23/24 10:32 Resp 16 05/23/24 10:32 BP 137/87 05/23/24 10:32 Pulse Ox 97 05/23/24 10:32 O2 Del Method Room Air 05/23/24 10:32 Pertinent Lab Results Pertinent Lab Results: Laboratory Tests 02/07/24 02/16/24 15:35 09:18 WBC 7.3 Hgb 13.8 Hct 41.2 Plt Count 192 Sodium 138 Potassium 3.4 Chloride 102 Carbon Dioxide 28 BUN 9 Creatinine 0.89 Narrative Narrative: ECHO 2024 Conclusions: - The left ventricular systolic function is hyperdynamic. The visually estimated ejection fraction is >70%. - There is mild calcification of the aortic valve. - There is mild mitral annular calcification. EKG 10/2023 Vent. Rate : 058 BPM Atrial Rate : 058 BPM P-R Int : 168 ms QRS Dur : 088 ms QT Int : 496 ms P-R-T Axes : 044 006 041 degrees QTc Int : 486 ms Sinus bradycardia Otherwise normal ECG When compared with ECG of 20-JUL-2023 12:17, No significant change was found Assessment and Plan Assessment Anesthesia Assessment: Chart Reviewed Final Anesthetic Review Family History of Problems with Anesthesia: No History of Problems with Anesthesia: No
--- NOTE | 2024-05-30 11:57 | PC.NURSE ---
DAHLIA Ferrara out to waiting room to speak with pt. Procedure cxd today and rescheduled for monday. patient aware and agreeable to plan.
== END ==
LOC: HO.SSS 09:32
PROVIDERS: PCP Registered Nurse; Visit Provider Neurological Surgery
DX: M43.12 Spondylolisthesis, cervical region (principal); Z53.8 Procedure and treatment not carried out for other reasons

== ENCOUNTER 2024-06-04 05:38 | Day surgery (SDC) | payer OTHER, SELFPAY ==
--- OUTSIDE RECORDS SUMMARY | 2024-05-30 15:56 | XMS_ITS | Clinical Summary ---
Author Organization [facility] Address [address] [phone] Phone Care Team Providers Care Acct Exec Name Role Phone Unavailable Primary Care Provider [...] ?? Early REAL cirrhosis ?? Followed by [facility] GI Aortic valve sclerosis 10/25/2022 Anemia 10/25/2022 [...] results. ?? S/p multiple spinal surgeries through [facility] 09/2021 for cyst removal ?? Followed by [facility] pain mngmt Hyperkalemia 10/25/2022 03/07/2023 Obstructive sleep apnea syndrome 10/25/2022 03/07/2023 Multiple nodules of lung 10/25/2022 023 Sacroiliac disorder 10/25/2022 03/07/2023 Recurrent falls 10/25/2022 03/07/2023 Poor stream of urine 10/25/2022 03/07/2023 Overview (03/07/2023): ?? Followed by [facility] urology ?? Bethanechol Finding of hand region 09/20/2022 Overview (03/07/2023): Last Assessment & Plan: Due to increased albuterol use, trest of neurological exam is normal. No evidence of other EPS. Vascular insufficiency of intestine 11/24/2021 Ischemic colitis 11/24/2021 Overview (02/21/2022): Added automatically from request for surgery [id number] Congestive heart failure 02/27/2021 023 Overview (03/07/2023): [...] ?? Trelegy ellipta ?? Albuterol PRN ?? [facility] pulmonology Fibromyalgia 12/08/2020 03/07/2023 Overview (03/07/2023): ?? [...] Visit [facility] [address] [place], [place] [address] Nguyễn Baird [...] Visit [facility] [address] [place] [address] Nguyễn Baird MD [address] [facility] [address] [place] [phone] Health Maintenance Due Date Last Done Comments [...] mmol/L PVNMA 12/17/2019 us [facility]version LAB [id number] LICITED RESULTS Final Result PVNMA from Last 3 Months or Most Recently Relevant to Health Maintenance Insurance [facility] [facility] ([id number]) * Guarantor: Sharri Salmeron Account Type Relation to Patient Date of Phone Billing Address Personal/Family Self 1960 [address] [place] [address] [place] [address] [facility] [facility] ([id number])
--- OUTSIDE RECORDS SUMMARY | 2024-05-30 15:56 | XMS_ITS | Clinical Summary ---
Author Organization [facility] Address [address] [place] [address] Care Team Providers Care Manager Sports Name Role Phone Mata Ashanti Primary Care Provider [phone] Surgical History Surgery Date Site/Laterality Comments TOTAL KNEE ARTHROPLASTY Bilateral PROCEDURE: [place] ARTHRP KNE CONDYLE&PLATU MEDIAL&LAT COMPARTMENTS BLADDER SURGERY PROCEDURE: HISTORICAL BLADDER SURGERY OTHER SURGICAL HISTORY 09/21/2021 PROCEDURE: [place] PATRICIO FACETECTOMY & FORAMOTOMY 1 VRT SGM LUMBAR; COMMENT: L4-5 decompression, resection of left synovial cyst, placement of Coflex device, Dr. Trinidad CHOLECYSTECTOMY PROCEDURE: HISTORICAL CHOLECYSTECTOMY TUBAL LIGATION PROCEDURE: HISTORICAL TUBAL LIGATION OTHER SURGICAL HISTORY 01/24/2022 PROCEDURE: [place] ARTHRODESIS POSTERIOR INTERBODY 1 NTRSPC LUMBAR; COMMENT: Removal of Coflex device L4-5, L4-5 resection of bilateral synovial cysts and fusion, Dr. Trinidad OTHER SURGICAL HISTORY 02/20/2023 PROCEDURE: [place] PERQ VERT AGMNTJ CAVITY CRTJ UNI/BI CANNULJ LMBR; COMMENT: L2 kyphoplasty, Dr. Trinidad Medical History Medical History Date Comments Bronchitis DX:Bronchitis Diabetes mellitus type 2, co ntrolled, with complications (CMS/HCC) DX:Diabetes mellitus type 2, controlled, with complications ([facility]) Fibromyalgia DX:Fibromyalgia Hx of neck surgery [...] Documents on File Type Date Recorded Patient Campus Recruiting Intern Expl anation Health Care Decision (hx) 10/02/2021 AD EMERY DIRECTIVE Health Care Decision (hx) 10/02/2021 AD EMERY DIRECTIVE Health Care Decision (hx) 10/02/2021 AD EMERY DIRECTIVE Health Care Decision (hx) 10/02/2021 AD EMERY DIRECTIVE Health Care Decision (hx) 10/02/2021 AD EMERY DIRECTIVE Health Care Decision (hx) 10/02/2021 AD EMERY DIRECTIVE Care Teams Manager Sports Relationship Specialty Start Date End Date [facility] [address] [place] [phone] PCP - General 10/06/23
--- OUTSIDE RECORDS SUMMARY | 2024-05-30 15:56 | XMS_ITS | Clinical Summary ---
Author Organization [facility] Address [address] [place] [address] Care Team Providers Care Motor Winder Name Role Phone Pcp, No Primary Care [...] (11/24/2021): Added automatically from request for surgery [id number] Ischemic bowel disease 11/24/2021 Social History Tobacco [...] Nonreactive Nonreactive S/CO 11/24/2021 11:21 AM EDT [employer] [facility] Hepatitis B Core Antibody IgM Nonreactive Nonreactive 11/24/2021 11:21 AM EDT [employer] [facility] Hepatitis B Surface Ag Screen Nonreactive Nonreactive 11/24/2021 11:21 AM EDT [employer] [facility] Hepatitis C Antibody 0.54 0.00 - 0.79 S/CO ratio 11/24/2021 11:21 AM EDT [facility] Hepatitis C Antibody Interpretation Nonreactive Nonreactive 11/24/2021 11:21 AM EDT [employer] [facility] Hepatitis Interpretation: Results inconsistent with acute Hepatitis A, B or C Virus infection. 11/24/2021 11:21 AM EDT [employer] [facility] Blood specimen (specimen) Serum specimen / Unknown 11/24/2021 6:13 AM EDT 11/24/2021 6:40 AM EDT Mary Grace Huerta SPINNING FRAME CHANGER LAB BLOOD ORDERABLES [facility]PITAL LAB NIDIASyndicateRoom [facility] [address] [place] [address] from Last 3 Months or Most Recently Relevant to Health Maintenance Advance Directives * Full Code (Latest Code Status on File) Date Activated Date Inactivated Comments 11/24/2021 3:35 AM 12/15/2021 3:20 PM Care Teams Motor Winder Relationship Specialty Start Date End Date Pcp, No PCP - General General Medicine 11/28/21
--- OUTSIDE RECORDS SUMMARY | 2024-05-30 15:56 | XMS_ITS | Clinical Summary ---
Author Organization [facility] Address [address] [place] [address] Care Team Providers Care Welder Oxyhydrogen Name Role Phone Suri Diamond GABBY Primary Care Provider [phone] Source Comments PLEASE NOTE, if this patient [...] Plan of Treatment Not on file Insurance [facility] [employer] PL[employer] Member Subscriber Plan / Payer (Ef fective 2013-Present) Name:Rusty Salmeronlia Relation to Subscriber:Self Name:Rusty Salmeronlia Payer ID:[id number] Group ID:[id number] Type:Medicaid Address: [facility] [address] [place] [address] Care Teams Welder Oxyhydrogen Relationship Specialty Start Date End Date Suri Diamond NP PCP - General Family Medicine MASTER CONTROL TECHNICIAN 12/17/12
[2024-06-04] VITALS (10 sets, daily range): BP systolic 95–140; BP diastolic 52–77; PULSE 80–91; RESP 14–16; TEMP 36.4–36.6; O2SAT 91–96; BMI 29.2
--- NOTE | ~2024-06-04 | FL_ITS ---
EXAMINATION: FL GUIDANCE ONLY HISTORY: C6-C7, C7-T1 ACDF COMPARISON: Correlation is made with plain films of the cervical spine dated 04/29/2024. TECHNIQUE: Fluoroscopy time: 11.8 seconds. Cumulative Dose: 2.9946 mGy. DAP: 0.6778 mGym2 Images: 2. FINDINGS: Images demonstrate new anterior cervical disc fusion at C7-T1 and prior anterior cervical disc fusion at C4-5. FL/FL guidance in OR IMPRESSION: Fluoroscopy during procedure. Please see procedure report for additional information. Electronically signed by: Neville Waters MD 06/07/2024 09:02 AM [facility] [place]
[2024-06-04] MEDS: methocarbamoL 750 MG TABLET PO (06:35)
[2024-06-04] MEDS: Gabapentin 300 MG CAPSULE PO (06:35)
[2024-06-04] MEDS: Lactated Ringers 1,000 ML 100 ML IVCONT (06:50)
[2024-06-04 06:52] LABS: Glucose, Whole Blood 154 mg/dL (60-115)
--- NOTE | 2024-06-04 07:03 | P.HPSUR_ITS ---
Pre-Procedural Eval Section A - 24 Hr Update-Section A only Date of Service: 06/04/24 The patient is an INPATIENT: No Changes since office visit: No Cold of Flu in the past 2 weeks, No New Medical Problems, No Changes in Medication and No Patient answered all questions The patient has been examined within 24 hours of the surgical procedure. The History & Physical has been completed within 30 days and I have reviewed it.: No Section B - Complete if H&P > 30 days Chief Complaint: Spondylolisthesis, cervical region Allergies: Allergies Allergy/AdvReac Type Severity Reaction Status Date / Time oxycodone [Percocet] Allergy Intermediate Itching Verified 05/01/24 13:53 Vicodin Allergy Intermediate itching Uncoded 05/01/24 13:53 Review of Systems Sugical H&P ROS: Negative: Constitution, Cardiovascular, Respiratory, Neurological, Psychiatric, Hem-Onc, Allergic/Immunologic, Gastrointestinal, Genitourinary, Musculoskeletal, Integumentary, Endocrine and Eyes/Ears/Nose/Throat Exam Surgical H&P Exam: Normal: HEENT, Normal: Heart, Normal: Lungs, Normal: Ext remities, Normal: Abdomen, Normal: Skin and Normal: Neurological (awake, alert,oriented x 3 ) Plan Diagnosis/Plan: Unchanged C6-7, C7-T1 anterior cervical diskectomy and fusion Time Spent With Patient Time: Total time managing care of this patient today __5__ minutes.
--- NOTE | 2024-06-04 07:06 | P.DS_ITS ---
DS: Providers Provider Date of Service: 06/04/24 Date of discharge: 06/04/24 Primary care physician: LENA Donaldson Admitting clinician: Regulo Dsouza DS: Diagnosis Discharge Diagnosis (1) Spondylolisthesis, cervical region: Status: Acute DS: Summary Time Attestation Discharge Coordination Time (in mins): 5 Quality: Safe Use of Opioids Does Pt have an Active Cancer Diagnosis on the Problem List?: No Quality: Stroke Does the patient have a stroke diagnosis?: No Physical Exam Vital Signs: Vital Signs: Last Vital Signs Temp 97.9 F 06/04/24 06:51 Pulse 80 06/04/24 06:51 Resp 16 06/04/24 06:51 BP 99/65 06/04/24 06:51 Pulse Ox 94 06/04/24 06:51 O2 Del Method Room Air 06/04/24 06:51 BMI result Body Mass Index 29.2 DS: Data Data Completed and Pending Labs on day of discharge: Laboratory Results - last 24 hr 06/04/24 06:48 POC Glucose 154 H Discharge Plan Discharge Patient Disposition: Home, Self-Care Referrals: Ashanti August FNP [Primary Care Provider] - 1 Week Discharge Medications: New docusate sodium [Colace] 100 mg capsule 100 mg PO BID Qty: 20 0RF hydromorphone [Dilaudid] 4 mg tablet See Rx Instructions .ROUTE .COMPLEX PRN (Reason: pain) Qty: 20 0RF Rx Instructions: 1/2 tablet po q4 hours prn pain; Partial Fill upon patient request. Continued albuterol sulfate 90 mcg/actuation HFA aerosol inhaler 2 puff inhalation Q4-6H PRN (Reason: shortness of breath or wheezing) Qty: 8.5 0RF cholecalciferol (vitamin D3) [Vitamin D3] 50 mcg (2,000 unit) Capsule 50 mcg PO DAILY hydroxyzine HCl 10 mg Tablet 10 mg PO TID PRN (Reason: Anxiety) bupropion HCl 150 mg tablet extended release 24 hr 150 mg PO QAM duloxetine 60 mg Capsule,Delayed Release(Dr/Ec) 60 mg PO DAILY 30 Days Qty: 30 0RF (DME) blood sugar diagnostic Strip See Rx Instructions Not Applicable BID Qty: 10 Rx Instructions: As directed (DME) blood-glucose meter [FreeStyle [place] Lite] Kit See Rx Instructions .ROUTE .MEDSUPPLY Qty: 1 Rx Instructions: As directed (DME) Compact Space Chamber Spacer See Rx Instructions .ROUTE .MEDSUPPLY Qty: 1 Rx Instructions: As directed (DME) lancets [TRUEplus Lancets] 33 gauge misc See Rx Instructions Not Applicable BID Qty: 100 Rx Instructions: As directed [place] Ellipta 200-62.5-25 mcg blister with device 1 inh inhalation DAILY 30 Days Qty: 1 6RF atorvastatin 80 mg tablet 80 mg PO BEDTIME clonidine HCl 0.1 mg tablet 0.1 mg PO BID risperidone 0.25 mg tablet 1 mg PO BEDTIME quetiapine 100 mg tablet 100 mg PO BEDTIME vitamin E (dl, acetate) 45 mg (100 unit) capsule 45 mg PO DAILY omeprazole 20 mg tablet,delayed release (DR/EC) 20 mg PO BID 90 Days Qty: 180 1RF ondansetron 4 mg tablet,disintegrating 4 mg PO Q8H PRN (Reason: nausea and vomiting) 30 Days Qty: 60 3RF simethicone [Gas Relief (simethicone)] 125 mg capsule 125 mg PO BID-QID PRN (Reason: abdominal distention) 30 Days Qty: 90 1RF Trulicity 0.75 mg/0.5 mL pen injector 0.75 mg subcut QWEEK Patient Comments: patient takes on Sundays Discharge Orders: Discharge Order (Routine); Ordered 06/04/24 Ordered By: Keyshawn Durbin Diet: Advance to usual diet Activity on Discharge: As tolerated Activity Restrictions/Additional Instructions: After your spinal surgery we ask you to observe the following restrictions/guidelines: Activity: It is normal to feel some discomfort as you increase your activity, but that will improve with time. We ask you avoid heavy lifting or acitivities that cause pain. As a general rule, 8lbs is a safe limit for lifting right after surgery. Walk as much as you feel comfortable but not to exhaustion. You will feel extra tired the first few days after surgery. Stay well hydrated. It is OK to walk up and down stairs You may return to driving when you are off narcotics (such as vicodin, oxycodone, dilaudid, etc), and you are back to normal functional capacity. If you have any concerns please check with office before driving. Return to work is specific to each patient and each surgery, so please speak with your doctor/PA at first follow up. Please bring paperwork such as FMLA at that time if you need it filled out. Medications: For optimum pain control, it is best to start with a combination of 500 mg of Tylenol every 4 hours with 600 mg of Motrin every 8 hours, and use narcotics as needed in between for breakthrough pain. We will give you a short supply of narcotics after surgery (usually one weeks worth). If you need more please call the office but do not use more than prescribed. You will need to give our office 48 hours notice if you need narcotics refilled and we do not fill narcotics on weekends or evenings. If you are on a narcotic, it is a good idea to take a stool softener such as colace or senna to avoid constipation If you take blood thinner such as aspirin, Plavix, Coumadin, Effient, Eliquis etc for conditions such as Afib, DVT, Pulmonary embolus, coronary disease, stents etc please speak with your surgeon about specific details as to when you can resume these medications. You can resume NSAIDs on post op day 1 (eg: Motrin, Naproxen, etc). Follow up: Please call the office, , after surgery to arrange a 3 week follow up for wound check. Wound Care: You may remove your dressing on the first day after surgery. ?You may ?leave open to air. Please do not remove the steri strips underneath. they will fall off on their own in one week. IT IS NORMAL FOR THE WOUND TO OOZE OR BE BLOODY FOR A FEW DAYS AFTER SURGERY. ?IF THIS HAPPENS JUST PLACE NEW DRESSING OVER IT TO AVOID STAINING CLOTHES. You may shower on post op day # 1 We ask that you do not let the water soak the wound. If it does get wet, just towel dry lightly. Please do not scrub your incision or place any type of chemical/ointment on the wound. No tub baths, pools or jacuzzis for one month. If you have any leaking or redness from your wound, or fevers, please call office Print Language: Greenlandic
--- NOTE | 2024-06-04 07:24 | HO.ANESPROP2 ---
Documented by User: Pat Camacho NP 06/03/24 10:41 HPI - Anesthesia Eval Consult details Narrative: 63yo F for C6-7,C7-T1 Ant Cerv Discectomy w/ fusion with PLATE PAT 05/23/[address] Nuñez - requested ECHO preop, done and OK per Dr Russell FLORES Active Problems Active Problems: All Active Problems Spondylolisthesis, cervical region (Acute) Abdominal bloating (Acute) Nausea (Acute) Heart palpitations (Acute) Cognitive impairment (Acute) Orthopnea (Acute) Personal history of nicotine dependence (Acute) Acute UTI (Acute) Chronic pain syndrome (Acute) Arthritis of right hip (Acute) Postlaminectomy syndrome (Acute) Cirrhosis (Acute) Encounter for preoperative pulmonary examination (Acute) Spinal stenosis at L4-L5 level (Acute) Sacroiliac joint dysfunction (Acute) Lumbar radiculopathy (Acute) Lumbar spondylosis (Acute) Pulmonary nodules (Acute) Diastolic dysfunction (Acute) Aortic valve sclerosis (Acute) Shortness of breath (Acute) Urinary retention with incomplete bladder emptying (Acute) Supplemental oxygen dependent (Acute) Anemia (Acute) Acute respiratory failure with hypoxia (Acute) Sepsis (Acute) COPD exacerbation (Acute) Community acquired pneumonia (Acute) Dyspnea on exertion (Acute) COPD (chronic obstructive pulmonary disease) (Acute) Pneumonia (Acute) Urinary hesitancy (Acute) Weak urinary stream (Acute) Bacteremia (Acute) Diabetes mellitus (Acute) Frequent falls (Acute) Steatohepatitis (Acute) Dysphagia, pharyngoesophageal phase (Acute) GERD without esophagitis (Acute) History of colon polyps (Acute) IBS (irritable bowel syndrome) (Acute) Fibromyalgia (Acute) Past Medical History Medical History (Updated 05/23/24 @ 10:28 by Sweta Barnes RN) Cervical cancer Back pain GERD (gastroesophageal reflux disease) Seizures Oxygen dependent Murmur HTN (hypertension) Witnessed seizure-like activity Dysuria Memory impairment Sleep apnea Ischemic colitis Hyperkalemia Frequent falls Dysphagia Arthritis Tremor of both hands Aortic valve stenosis Kidney disease Hyperlipidemia Fatty liver CHF (congestive heart failure) Obesity Bacteremia ELIZABET (acute kidney injury) Encephalopathy UTI (urinary tract infection) Frequent falls Acute exacerbation of chronic obstructive airways disease Urinary retention with incomplete bladder emptying Steatohepatitis IBS (irritable bowel syndrome) History of colon polyps Dysphagia, pharyngoesophageal phase GERD without esophagitis Hx of hereditary disease Diabetes mellitus Depression Fibromyalgia Family History Family History Father History of heart attack Hx of type 1 diabetes mellitus Mother Alive and well Family history of problems with anesthesia: No Surgical History Surgical History (Updated 05/23/24 @ 10:20 by Sweta Barnes RN) Hx of fusion of cervical spine Hx of abdominal surgery History of back surgery History of esophagogastroduodenoscopy (EGD) S/p total knee replacement, bilateral Hx of tubal ligation Hx of cholecystectomy Hx of endoscopy History of colonoscopy History of Problems with Anesthesia: No Social History Social History Household Members: Significant Other Housing: Apartment Are you a primary patient care technician to a significant other at home: No Do you presently have visiting nurse or other home services: Yes ([employer]) Alcohol intake: former Patient Tobacco Use Status: Former Tobacco user Tobacco use type: Cigarette Cigarette Packs Per Day: 0.5 Cigarettes Per Day: 10.0 Years Smoked: 25 yrs Second Hand Smoke Exposure: No Use of substances other than those prescribed or required for medical reasons: No Have you been hit, kicked, punched, or otherwise hurt by someone within the past year? If so, by whom?: No Are you DNR?: No Advance Directives: No Advance Directives Information Provided: Yes Advance Directives on File: No Advance Directives Date on File: 10/20/20 Recently lost weight without trying: No Eating poorly because of decreased appetite: No Nutrition Risks: No Nutritional Risk Patient : No : No Poor oral hygiene: No service: No Current occupational status: unemployed Meds Allergies Allergy/AdvReac Type Severity Reaction Status Date / Time oxycodone [Percocet] Allergy Intermediate Itching Verified 05/01/24 13:53 Vicodin Allergy Intermediate itching Uncoded 05/01/24 13:53 Home Medications ?Medication ?Instructions ?Recorded ?Confirmed ?Last Taken ?Type blood sugar diagnostic #10 ea 06/25/20 06/04/24 Unknown History blood-glucose meter (FreeStyle #1 ea 03/02/21 06/04/24 Unknown History Adams Lite kit) inhalational spacing device #1 ea 03/02/21 06/04/24 Unknown History (Compact Space Chamber) lancets 33 gauge (TRUEplus Lancets) #100 ea 03/02/21 06/04/24 Unknown History bupropion HCl 150 mg 24 hr tablet, 150 mg PO QAM 04/19/23 06/04/24 06/04/24 History extended release atorvastatin 80 mg tablet 80 mg PO BEDTIME 01/30/24 06/04/24 06/03/24 History clonidine HCl 0.1 mg tablet 0.1 mg PO BID 01/30/24 06/04/24 06/04/24 History quetiapine 100 mg tablet 100 mg PO BEDTIME 01/30/24 06/04/24 06/03/24 History risperidone 0.25 mg tablet 1 mg PO BEDTIME 01/30/24 06/04/24 06/03/24 History vitamin E (dl, acetate) 45 mg (100 45 mg PO DAILY 01/30/24 06/04/24 06/03/24 History unit) capsule dulaglutide 0.75 mg/0.5 mL 0.75 mg subcut QWEEK 05/01/24 06/04/24 05/26/24 History subcutaneous pen injector (Trulicity) cholecalciferol (vitamin D3) 50 50 mcg PO DAILY 05/23/24 06/04/24 06/03/24 History mcg (2,000 unit) capsule (Vitamin D3) hydroxyzine HCl 10 mg tablet 10 mg PO TID PRN Anxiety 05/23/24 06/04/24 06/03/24 History Exam Pertinent Lab Results Pertinent Lab Results: Laboratory Tests 02/07/24 02/16/24 15:35 09:18 WBC 7.3 Hgb 13.8 Hct 41.2 Plt Count 192 Sodium 138 Potassium 3.4 Chloride 102 Carbon Dioxide 28 BUN 9 Creatinine 0.89 Narrative Narrative: EKG 2023 Vent. Rate : 058 BPM Atrial Rate : 058 BPM P-R Int : 168 ms QRS Dur : 088 ms QT Int : 496 ms P-R-T Axes : 044 006 041 degrees QTc Int : 486 ms Sinus bradycardia Otherwise normal ECG When compared with ECG of 20-JUL-2023 12:17, No significant change was found ECHO 05/2024 Conclusions: - The left ventricular systolic function is hyperdynamic. The visually estimated ejection fraction is >70%. - There is mild calcification of the aortic valve. - There is mild mitral annular calcification. Assessment and Plan Assessment Anesthesia Assessment: Chart Reviewed Final Anesthetic Review Family History of Problems with Anesthesia: No History of Problems with Anesthesia: No Documented by User: Rubia Ibarra DO 06/04/24 07:27 HPI - Anesthesia Eval Consult details Narrative: 63yo F for C6-7,C7-T1 Ant Cerv Discectomy w/ fusion with PLATE Supplemental O2: 2L PRN PMFSH Past Medical History Medical History (Updated 05/23/24 @ 10:28 by Sweta Barnes, KALEB) Cervical cancer Back pain GERD (gastroesophageal reflux disease) Seizures Oxygen dependent Murmur HTN (hypertension) Witnessed seizure-like activity Dysuria Memory impairment Sleep apnea Ischemic colitis Hyperkalemia Frequent falls Dysphagia Arthritis Tremor of both hands Aortic valve stenosis Kidney disease Hyperlipidemia Fatty liver CHF (congestive heart failure) Obesity Bacteremia ELIZABET (acute kidney injury) Encephalopathy UTI (urinary tract infection) Frequent falls Acute exacerbation of chronic obstructive airways disease Urinary retention with incomplete bladder emptying Steatohepatitis IBS (irritable bowel syndrome) History of colon polyps Dysphagia, pharyngoesophageal phase GERD without esophagitis Hx of hereditary disease Diabetes mellitus Depression Fibromyalgia Family History Family History Father History of heart attack Hx of type 1 diabetes mellitus Mother Alive and well Family history of problems with anesthesia: No Surgical History Surgical History (Updated 05/23/24 @ 10:20 by Sweta Barnes RN) Hx of fusion of cervical spine Hx of abdominal surgery History of back surgery History of esophagogastroduodenoscopy (EGD) S/p total knee replacement, bilateral Hx of tubal ligation Hx of cholecystectomy Hx of endoscopy History of colonoscopy History of Problems with Anesthesia: No Social History Social History Household Members: Significant Other Housing: Apartment Are you a primary patient care technician to a significant other at home: No Do you presently have visiting nurse or other home services: Yes ([employer]) Alcohol intake: former Patient Tobacco Use Status: Former Tobacco user Tobacco use type: Cigarette Cigarette Packs Per Day: 0.5 Cigarettes Per Day: 10.0 Years Smoked: 25 yrs Second Hand Smoke Exposure: No Use of substances other than those prescribed or required for medical reasons: No Have you been hit, kicked, punched, or otherwise hurt by someone within the past year? If so, by whom?: No Are you DNR?: No Advance Directives: No Advance Directives Information Provided: Yes Advance Directives on File: No Advance Directives Date on File: 10/20/20 Recently lost weight without trying: No Eating poorly because of decreased appetite: No Nutrition Risks: No Nutritional Risk Patient : No : No Poor oral hygiene: No service: No Current occupational status: unemployed Meds Allergies Allergy/AdvReac Type Severity Reaction Status Date / Time oxycodone [Percocet] Allergy Intermediate Itching Verified 05/01/24 13:53 Vicodin Allergy Intermediate itching Uncoded 05/01/24 13:53 Home Medications ?Medication ?Instructions ?Recorded ?Confirmed ?Last Taken ?Type blood sugar diagnostic #10 ea 06/25/20 06/04/24 Unknown History blood-glucose meter (FreeStyle #1 ea 03/02/21 06/04/24 Unknown History [place] Lite kit) inhalational spacing device #1 ea 03/02/21 06/04/24 Unknown History (Compact Space Chamber) lancets 33 gauge (TRUEplus Lancets) #100 ea 03/02/21 06/04/24 Unknown History bupropion HCl 150 mg 24 hr tablet, 150 mg PO QAM 04/19/23 06/04/24 06/04/24 History extended release atorvastatin 80 mg tablet 80 mg PO BEDTIME 01/30/24 06/04/24 06/03/24 History clonidine HCl 0.1 mg tablet 0.1 mg PO BID 01/30/24 06/04/24 06/04/24 History quetiapine 100 mg tablet 100 mg PO BEDTIME 01/30/24 06/04/24 06/03/24 History risperidone 0.25 mg tablet 1 mg PO BEDTIME 01/30/24 06/04/24 06/03/24 History vitamin E (dl, acetate) 45 mg (100 45 mg PO DAILY 01/30/24 06/04/24 06/03/24 History unit) capsule dulaglutide 0.75 mg/0.5 mL 0.75 mg subcut QWEEK 05/01/24 06/04/24 05/26/24 History subcutaneous pen injector (Trulicity) cholecalciferol (vitamin D3) 50 50 mcg PO DAILY 05/23/24 06/04/24 06/03/24 History mcg (2,000 unit) capsule (Vitamin D3) hydroxyzine HCl 10 mg tablet 10 mg PO TID PRN Anxiety 05/23/24 06/04/24 06/03/24 History Exam Exam Date and Time: 06/04/24 0722 Height,Weight and Vital Signs: Height 5 ft 3 in Weight 74.8 kg Vital Signs Temperature 97.9 F 06/04/24 06:51 Pulse Rate 80 06/04/24 06:51 Respiratory Rate 16 06/04/24 06:51 Blood Pressure 99/65 06/04/24 06:51 Pulse Oximetry 94 06/04/24 06:51 Oxygen Delivery Method Room Air 06/04/24 06:51 Temperature 97.9 F 06/04/24 06:51 Pulse Rate 80 06/04/24 06:51 Respiratory Rate 16 06/04/24 06:51 Blood Pressure 99/65 06/04/24 06:51 Pulse Oximetry 94 06/04/24 06:51 Oxygen Delivery Method Room Air 06/04/24 06:51 Airway Mallampati Class: I TM Dist: >3cm Neck ROM: Limited Loose/Missing/Broken Teeth: Yes (edentulous top jaw, multiple missing teeth bottom jaw) Heart: S1S2 Lungs: CTAB Assessment and Plan Assessment Anesthesia Assessment: Anesthesia Plan Discussed and Chart Reviewed Final Anesthetic Review Family History of Problems with Anesthesia: No History of Problems with Anesthesia: No NPO: Yes ASA Class: III Final Preanesthetic Review: No Changes in Pt Med Stat, Meds/Allgs Chart Reviewed, Consent Obtained/Reviewed and Anes Risks/Benef Reviewed Patient Risk: Intermediate Procedure Risk: Intermediate Anesthetic Plan Anesthetic Plan: GA and Agree w/ Assess. and Plan Disposition: Standard PACU
[2024-06-04] MEDS: ceFAZolin Sodium/Dextrose,Iso 2 GM/50 ML PIGGYBACK IV (07:45)
--- NOTE | 2024-06-04 09:21 | W.PM.OPN ---
Operative Note Operative Note Date of Service: 06/04/24 Narrative: Preoperative Diagnosis: Cervical myelopathy due to C7-T1 anterolisthesis and spinal cord compression Postoperative diagnosis: Same Procedure: C7-T1 Anterior discectomy, arthrodesis and implantation cage ; C7-T1 anterior instrumentation ; local autograft; microscope Informed Consent was obtained for this operation. I have explained the nature, purpose and benefits of the operation. I have discussed the risks and benefit of the operation including possible complications or adverse events with patient/family. Alternative(s) were discussed with the patient with their relative benefits and risks as well as the consequences of not accepting the operation were included in obtaining consent. Surgeon: ROSELIA SPANN MD, PHD Procedure Assisted By: shon Ferrara Description of Procedure: This patient is suffering from progressive cervical myelopathy due to anterolisthesis C7-T1. She had a previous fusion done at C5-C6 and an uncal vertebrectomy C6-7 on the left in another institution. Initially the plan was to fuse C7-T1 and C6-7 but after reviewing a CT scan of the cervical spine that shows fusion of C6-7 it is decided that only C7-T1 is required. The procedure complications were explained. The patient was consented. The patient was brought to the operating room and endotracheally intubated. The patient was put in supine position with slight extension of the neck. Prep and drape was done followed by timeout. A mid cervical incision was made followed by opening of the platysma. The prevertebral fascia was reached following the natural planes while the physician aquatics assistant department head provided manual retraction. The prevertebral fascia was opened to expose the disc space. A spinal needle was placed in the disk space to confirm the correct level with xray. The longus colli muscles were released bilaterally and a self retaining retractor was inserted. Two [place] pins were placed in the C7 and T1 vertebral bodies and distraction was give over the interspace. The discectomy was completed toward the posterior annulus of the disc. The microscope was brought in. The remainder of the discectomy was completed. The posterior ligament was opened and resected to expose the underlying dura. Osteophytes were resected from the body of C7 and T1 and saved for autograft. Bilateral foraminotomies were done. The endplates were prepared after which a 6 mm cage filled with autograft was inserted into the disc space. A 12 mm Astura anterior plate was locked down with 4 x 14 mm screws as anterior instrumentation. Final x-rays in AP and lateral projection showed a satisfactory position of the implant and anterior instrumentation. The physician aquatics assistant department head took over. The [place] pin was removed. Hemostasis was done. He closed the incision in 2 layers with a 3-0 Vicryl. Steri-Strips used to approximate incision. An OpSite with Tegaderm was used to cover the incision. All sponge and needle counts were correct. Patient was extubated and transported in stable is to recovery room. Anesthesia: General Estimated Blood Loss (ml): 25 mL Duration of Surgery: 90 minutes Postoperative Plan: Discharge home Complications: None
== END 2024-06-04 12:03 | disposition home or self-care (01) ==
PROVIDERS: PCP Registered Nurse; Visit Provider Neurological Surgery
PROC: (CPT 22551; principal; 2024-06-04 07:30)
DX: M43.12 Spondylolisthesis, cervical region (principal); M54.2 Cervicalgia; M79.7 Fibromyalgia; R20.0 Anesthesia of skin; R20.2 Paresthesia of skin; I11.0 Hypertensive heart disease with heart failure; I50.9 Heart failure, unspecified; I35.0 Nonrheumatic aortic (valve) stenosis; N28.9 Disorder of kidney and ureter, unspecified; E78.5 Hyperlipidemia, unspecified; E11.9 Type 2 diabetes mellitus without complications; E66.9 Obesity, unspecified; J44.9 Chronic obstructive pulmonary disease, unspecified; Z79.899 Other long term (current) drug therapy; Z87.891 Personal history of nicotine dependence; Z79.85 Long-term (current) use of injectable non-insulin antidiabetic drugs; Z79.51 Long term (current) use of inhaled steroids; Z88.5 Allergy status to narcotic agent
CPT/HCPCS: 22551; 22853; 20936; 22845; 82947; C1713; C1889; J0131; J0690; J1100; J1171; J2003; J2250; J2371; J2405; J2704; J3010

== ENCOUNTER → 2024-06-04 05:38 | Outpatient (BNV) | payer OTHER, SELFPAY | PROVIDERS: PCP Registered Nurse; Visit Provider Neurological Surgery | DX: M50.03 Cervical disc disorder with myelopathy, cervicothoracic region (principal); M43.12 Spondylolisthesis, cervical region | CPT/HCPCS: 20936; 22551; 22845; 22853; 99499 ==

== ENCOUNTER 2024-06-09 11:10 | Emergency (ER) | payer OTHER, SELFPAY ==
--- NOTE | ~2024-06-09 | CT_ITS ---
CLINICAL HISTORY: sob, neck pain sp surgery CT chest with contrast Comparison: CT/SR - CT CHEST WO IV CON - 12/22/22 07:32 EDT Findings: The heart size is normal. There is a large posterior mediastinal mass, Most likely a complex fluid collection, extending from the neck the diaphragm with mass effect on the trachea and esophagus. This measures up to 4 x 3 cm in transverse dimension. Mild associated narrowing of the trachea. No consolidation or pleural effusion. The visualized upper abdomen is unremarkable. Status post anterior metallic fusion at C7-T1. Appropriate alignment. No evidence of hardware failure. There is a moderate compression fracture at T8 with interval worsening, likely chronic. IMPRESSION: There is a large and extensive posterior mediastinal mass, most likely a complex fluid collection. This could represent a simple postoperative collection, hematoma or abscess. There is associated mass effect on the trachea and esophagus. This document has been electronically signed by: Anabelle Hurst MD on 06/09/2024 13:49:23
--- NOTE | ~2024-06-09 | CT_ITS ---
CLINICAL HISTORY: post op neck pain CT soft tissue neck with contrast Comparison: None Findings: The visualized intracranial contents are unremarkable. No prevertebral fluid. Epiglottis is within normal limits. Pharyngeal mucosal space and parapharyngeal fat are normal. Salivary glands are unremarkable. No sialoliths. No suspicious thyroid nodules. No consolidation at the lung apices. No acute fracture or dislocation. Status post anterior metallic and interbody fusion at C7-T1. Prior anterior metallic and interbody fusion at C4-C5. No evidence of hardware failure. There is a posterior mediastinal fluid collection measuring up to 3.4 cm in diameter with mass effect on the trachea and esophagus. This could represent a simple postoperative collection, hematoma or abscess. Mild extension of fluid into the bilateral carotid spaces. No extravasation of contrast to suggest active bleeding. IMPRESSION: There is a posterior mediastinal fluid collection measuring up to 3.4 cm in diameter with mass effect on the trachea and esophagus. This could represent a simple postoperative collection, hematoma or abscess. This document has been electronically signed by: Anabelle Hurst MD on 06/09/2024 13:53:46
[2024-06-09 11:12] VITALS: BP 127/89; PULSE 116; RESP 20; TEMP 36.8; O2SAT 92; BMI 28.9
--- NOTE | 2024-06-09 11:19 | ECG_ITS ---
Test Reason : sob Blood Pressure : */* mmHG Vent. Rate : 114 BPM Atrial Rate : 114 BPM P-R Int : 130 ms QRS Dur : 82 ms QT Int : 348 ms P-R-T Axes : 38 -11 41 degrees QTcB Int : 479 ms Sinus tachycardia Minimal voltage criteria for LVH, may be normal variant ( [place] product ) Nonspecific ST abnormality Abnormal ECG When compared with ECG of 13-Oct-2023 12:02, Vent. rate has increased by [address] now depressed in Lateral leads Referred By: Polo Rosario Electronically Signed By: LISA JARRETT
--- NOTE | 2024-06-09 11:21 | ED.GENADULT ---
HPI - General Adult General Chief complaint: Dyspnea Stated complaint: diff breathing Time Seen by Provider: 06/09/24 11:47 Source: patient Mode of arrival: ambulatory Limitations: no limitations History of Present Illness ED Provider: DAHLIA Gore HPI narrative: This is a 63-year-old female recent neck surgery, chronic pain syndrome, diastolic dysfunction, COPD, cirrhosis, renal faliure, diabetes, fibromyalgia, GERD, anemia presents to the emergency department with neck pain, difficulty swallowing and shortness of breath with cough status post surgical procedure on 06/04/2024. Patient underwent a C7-T1 Anterior discectomy, arthrodesis and implantation cage ; C7-T1 anterior instrumentation ; due to Cervical myelopathy due to C7-T1 anterolisthesis and spinal cord compression. Since then has been having these symptoms. No a/c cp. Denies fevers, chills, headache, vision changes, dizziness, weakness, nausea, vomiting, abdominal pain. Not on blood thinners at this time but is usually on Coumadin she stopped it prior to surgery and has not restarted it. Related Data Home Medications ?Medication ?Instructions ?Recorded ?Confirmed blood sugar diagnostic #10 ea 06/25/20 06/04/24 blood-glucose meter (FreeStyle #1 ea 03/02/21 06/04/24 Steuben Lite kit) inhalational spacing device #1 ea 03/02/21 06/04/24 (Compact Space Chamber) lancets 33 gauge (TRUEplus Lancets) #100 ea 03/02/21 06/04/24 bupropion HCl 150 mg 24 hr tablet, 150 mg PO QAM 04/19/23 06/04/24 extended release atorvastatin 80 mg tablet 80 mg PO BEDTIME 01/30/24 06/04/24 clonidine HCl 0.1 mg tablet 0.1 mg PO BID 01/30/24 06/04/24 quetiapine 100 mg tablet 100 mg PO BEDTIME 01/30/24 06/04/24 risperidone 0.25 mg tablet 1 mg PO BEDTIME 01/30/24 06/04/24 vitamin E (dl, acetate) 45 mg (100 45 mg PO DAILY 01/30/24 06/04/24 unit) capsule dulaglutide 0.75 mg/0.5 mL 0.75 mg subcut QWEEK 05/01/24 06/04/24 subcutaneous pen injector (Trulicity) cholecalciferol (vitamin D3) 50 50 mcg PO DAILY 05/23/24 06/04/24 mcg (2,000 unit) capsule (Vitamin D3) hydroxyzine HCl 10 mg tablet 10 mg PO TID PRN Anxiety 05/23/24 06/04/24 Previous Rx's ?Medication ?Instructions ?Recorded albuterol sulfate 90 mcg/actuation 2 puff inhalation Q4-6H PRN 10/07/20 aerosol inhaler shortness of breath or wheezing #8.5 grams fluticasone fur. 200 mcg-umeclid 1 inh inhalation DAILY 30 days #1 01/19/21 62.5 mcg-vilant 25 mcg ea inhalat.powder (Trelegy Ellipta) duloxetine 60 mg capsule,delayed 60 mg PO DAILY 30 days #30 caps 07/25/23 release omeprazole 20 mg tablet,delayed 20 mg PO BID 90 days #180 tabs 02/16/24 release ondansetron 4 mg disintegrating 4 mg PO Q8H PRN nausea and 02/16/24 tablet vomiting 30 days #60 tabs simethicone 125 mg capsule (Gas 125 mg PO BID-QID PRN abdominal 02/16/24 Relief (simethicone)) distention 30 days #90 caps docusate sodium 100 mg capsule 100 mg PO BID #20 caps 06/04/24 (Colace) hydromorphone 4 mg tablet See Rx Instructions .Route 06/04/24 (Dilaudid) .COMPLEX PRN pain #20 tabs Allergies Allergy/AdvReac Type Severity Reaction Status Date / Time oxycodone [Percocet] Allergy Intermediate Itching Verified 06/09/24 11:16 Vicodin Allergy Intermediate itching Uncoded 05/01/24 13:53 Review of Systems Review of Systems: Yes all other systems are reviewed and are negative PMFSH Past Medical History Attestation statement: The following information was validated with the patient. Source: old records reviewed and nursing notes reviewed Medical History Cervical cancer Back pain GERD (gastroesophageal reflux disease) Seizures Oxygen dependent Murmur HTN (hypertension) Witnessed seizure-like activity Dysuria Memory impairment Sleep apnea Ischemic colitis Hyperkalemia Frequent falls Dysphagia Arthritis Tremor of both hands Aortic valve stenosis Kidney disease Hyperlipidemia Fatty liver CHF (congestive heart failure) Obesity Bacteremia ELIZABET (acute kidney injury) Encephalopathy UTI (urinary tract infection) Frequent falls Acute exacerbation of chronic obstructive airways disease Urinary retention with incomplete bladder emptying Steatohepatitis IBS (irritable bowel syndrome) History of colon polyps Dysphagia, pharyngoesophageal phase GERD without esophagitis Hx of hereditary disease Diabetes mellitus Depression Fibromyalgia Surgical History Hx of fusion of cervical spine Hx of abdominal surgery History of back surgery History of esophagogastroduodenoscopy (EGD) S/p total knee replacement, bilateral Hx of tubal ligation Hx of cholecystectomy Hx of endoscopy History of colonoscopy Family History Family History Father History of heart attack Hx of type 1 diabetes mellitus Mother Alive and well Social History Social History Household Members: Significant Other Housing: Apartment Are you a primary career technology teacher to a significant other at home: No Do you presently have visiting nurse or other home services: Yes ([employer]) Alcohol intake: former Patient Tobacco Use Status: Former Tobacco user Tobacco use type: Cigarette Cigarette Packs Per Day: 0.5 Cigarettes Per Day: 10.0 Years Smoked: 25 yrs Smoked in Last 30 Days: No Second Hand Smoke Exposure: No Use of substances other than those prescribed or required for medical reasons: No Advance Directives: Yes Advance Directives on File: Yes Advance Directives Date on File: 10/20/20 Do you have a plan to hurt others: No Plan service: No Current occupational status: unemployed Physical Exam ED Vital Signs: Vital Signs - 24 hr 06/09/24 11:12 06/09/24 13:00 06/09/24 14:43 Temperature 98.2 F 97.6 F Pulse Rate 116 H 106 H 105 H Respiratory Rate 20 20 20 Blood Pressure 127/89 116/67 120/72 Pulse Oximetry 92 96 95 Oxygen Delivery Method Room Air Nasal Cannula Nasal Cannula Oxygen Flow Rate 4 4 06/09/24 15:08 06/09/24 16:21 Temperature 97.6 F 97.6 F Pulse Rate 101 H 101 H Respiratory Rate 20 20 Blood Pressure 137/67 137/67 Pulse Oximetry 97 97 Oxygen Delivery Method Nasal Cannula Nasal Cannula Oxygen Flow Rate 4 4 BMI result Body Mass Index 28.9 vss Appearance: Alert.? Oriented X3.?+ mild resp distress. + Hoarse voice Head: Normocephalic, atraumatic, no step-offs or deformities Eyes: Pupils equal, round and reactive to light.? Neck: Normal inspection.? Neck supple.? CVS: Normal heart rate and rhythm.? Pulses normal.? Respiratory: + mild respiratory distress.? Breath sounds normal.? Abdomen: Soft and nontender.? Skin: Skin warm and dry.? Normal skin color.? Normal skin turgor.? + swelling to anterior neck R>L Extremities: No lower extremity edema.? No calf ttp. 5/5 strength to bilateral upper and lower extremities Neuro: Oriented X 3.? No motor deficit.? No sensory deficit. CN 2-12 intact Course Course Course Narrative: RME: 63 yold female presents to the ED for mid back pain with SOB. Status post cervical spine surgery last Monday and then for the past couple in his total has shortness of breath cough with upper back pain. Patient denies any fever chills. Patient denies any leg swelling calf pain. Patient is on blood thinners. Physical exam lungs are clear negative for any leg swelling or pitting edema or calf tenderness. 92% on room air. EKG labs chest x-ray ordered. Patient to be brought back to the ED Reevaluation(s) Reevaluation #1: CBC with leukocytosis no left shift. Chemistry with elevated T bili 2.8 no abdominal complaints. Lactic acid normal 1.4. Troponin negative, BNP negative. CRP and ESR were added for completion. Time: 12:40 Reevaluation #2: Decadron 4mg Q6H per Dr. Phillip. I did review CT scan with him. Will wait for final reading Time: 12:51 Reevaluation #3: CT scan showing a large and extensive posterior mediastinal mass ( 4 x 3 cm in transverse dimension) most likely complex fluid collection which could represent post op collection, hematoma or abscess. Mass effect on trachea and esophagus. Discuss this case with Dr. Dsouza it is safest for patient to be transferred to a tertiary facility where neurosurgery is available and where patient has an ICU bed and monitoring. We do not have either of those things here ICU is at capacity and neurosurgery is not here all the time in case there becomes an issue with expanding hematoma. Time: 13:55 Additional Reevaluation(s): 1358 [facility] at capacity and closed to transfers. Call out to [facility] 1405 Spoke to [facility] pending call back [phone] [facility] ED -ED Dr. Bell 1426 Patient agreeable to transfer to [facility] transfer 1510 EMS arrived however there were some concerns that in case patient condition worsens they do not have adequate resources to perform rapid sequence intubation. Therefore [facility] flight team was called they accepted transfer. Estimated time of arrival 3:30-3:40 Medications Administered Discontinued Medications Generic Name Dose Route Start Last Admin Trade Name Freq PRN Reason Stop Dose Admin Dexamethasone Sodium Phosphate 10 mg 06/09/24 11:59 06/09/24 12:10 Dexamethasone Sod Phosphate 10 Mg/Ml Vial IVPUSH 06/09/24 12:00 10 mg ONCE ONE Administration Fentanyl 50 mcg 06/09/24 13:13 06/09/24 13:34 Fentanyl Citrate/Pf 100 Mcg/2 Ml Vial IVPUSH 06/09/24 13:14 50 mcg ONCE ONE Administration Protocol Piperacillin Sod/Tazobactam 50 mls @ 100 mls/hr 06/09/24 12:24 06/09/24 13:01 Sod 3.375 gm/ Sodium Chloride IV 06/09/24 12:53 Infused ONCE ONE Infusion Iohexol 100 ml 06/09/24 12:31 06/09/24 12:32 Iohexol 350 Mg/Ml 100 Ml Infus..Btl IV 06/09/24 12:32 65 ml ONCE ONE Administration Medical Decision Making Medical Decision Making MDM Narrative: 63-year-old female status post C7-T1 anterior diskectomy on 06/04/[address] Phillip presents for neck pain and shortness of breath since the procedure that has been progressively worsening. Physical exam patient has significant anterior neck swelling. Incision appears well approximated. History and physical exam concerning for hematoma and possibly expanding hematoma. Patient is short of breath there is some concerns for airway however at this time she is handling her secretions and maintaining her own airway. Since patient is postoperative there is also concerned for abscess will cover with antibiotics. Plan labs, imaging. Will reach out to minimally invasive spine here Differential Diagnosis Differential Diagnoses: The differential diagnosis associated with the presentation includes (History and physical exam concerning for hematoma and possibly expanding hematoma. Patient is short of breath there is some concerns for airway however at this time she is handling her secretions and maintaining her own airway. Since patient is postoperative there is also concerned for abscess lisseth) Admission/Observation Consideration of admission/observation: Escalation of care including admission/observation considered Lab Data MDM Lab Attestation statement: I reviewed the patient's lab results. 06/09/24 11:42 06/09/24 11:42 Labs: Lab Results 06/09/24 06/09/24 06/09/24 Range/Units 11:42 12:36 15:16 WBC 14.7 H (4.8-10.8) X10*3/uL RBC 5.03 (4.20-5.50) X10*6/uL Hgb 14.2 (12.0-16.0) g/dl Hct 43.8 (37.0-47.0) % MCV 87.1 (80.0-98.0) fL MCH 28.2 (27.0-33.0) pg MCHC 32.4 (31.0-35.0) g/dl RDW 16.3 H (11.0-16.0) % Plt Count 275 D (160-400) X10*3/uL MPV 9.4 (9.4-12.3) fL Immature Gran % (Auto) 0.7 H (0.0-0.4) % Neut % (Auto) 68.4 (45-73) % Lymph % (Auto) 19.0 L (20-40) % Dickson % (Auto) 11.3 H (2-11) % Eos % (Auto) 0.1 (0-4) % Baso % (Auto) 0.5 (0-2) % Lymph # (Auto) 2.8 (1.2-4.9) X10*3/uL Dickson # (Auto) 1.7 H (0.1-1.2) X10*3/uL Eos # (Auto) 0.0 (0.0-0.4) X10*3/uL Baso # (Auto) 0.1 (0.0-0.2) X10*3/uL Abs Immat Gran (auto) 0.10 H (0.00-0.03) X10*3/uL Absolute Neuts (auto) 10.0 H (2.0-8.3) x10*3/uL Absolute Nucleated RBC 0.000 (0.0-0.012) X10*3/uL Nucleated RBC % (auto) 0.0 (0.0-0.2) /100WBC Smear Tech's Comments VERIFIED ESR 59 H (0-20) MM/HR PT 15.4 H 15.6 H (10.9-12.4) SEC INR 1.3 H 1.3 H (0.9-1.1) APTT 34.1 (26.0-36.8) SEC Sodium 141 (135-145) mmol/L Potassium 4.0 (3.3-5.1) mmol/L Chloride 101 (96-108) mmol/L Carbon Dioxide 25 (22-29) mmol/L Anion Gap 19 (12-20) BUN 19 H (9-16) mg/dL Creatinine 0.81 (0.5-1.4) mg/dL Estim Creat Clear Calc 69.4 Estimated GFR > 60 Random Glucose 148 H (60-115) mg/dL Lactic Acid 1.4 (0.5-2.0) mmol/L Calcium 10.5 H D (8.4-10.2) mg/dL Total Bilirubin 2.8 H (0.0-1.0) mg/dL AST 39 H (5-31) U/L ALT 31 (0-31) U/L Alkaline Phosphatase 216 H (39-117) U/L Troponin I High Sens < 2.7 (<3.5-17.0) ng/L C-Reactive Protein 8.97 H (< or = 0.50) mg/dL B-Natriuretic Peptide < 10 (<100) pg/mL Total Protein 9.3 H (6.5-8.0) g/dL Albumin 4.5 (3.5-5.0) g/dL Influenza Type A (PCR) NEGATIVE (Negative) Influenza Type B (PCR) NEGATIVE (Negative) RSV RNA Qual (PCR) NEGATIVE (Negative) SARS-CoV-2 RNA (RT-PCR) NEGATIVE (Negative) Blood Type O Positive Antibody Screen NEGATIVE Independent Interpretation I performed an independent interpretation of an: CT Scan (see course ) Interpretation: Findings: The visualized intracranial contents are unremarkable. No prevertebral fluid. Epiglottis is within normal limits. Pharyngeal mucosal space and parapharyngeal fat are normal. Salivary glands are unremarkable. No sialoliths. No suspicious thyroid nodules. No consolidation at the lung apices. No acute fracture or dislocation. Status post anterior metallic and interbody fusion at C7-T1. Prior anterior metallic and interbody fusion at C4-C5. No evidence of hardware failure. There is a posterior mediastinal fluid collection measuring up to 3.4 cm in diameter with mass effect on the trachea and esophagus. This could represent a simple postoperative collection, hematoma or abscess. Mild extension of fluid into the bilateral carotid spaces. No extravasation of contrast to suggest active bleeding. IMPRESSION: There is a posterior mediastinal fluid collection measuring up to 3.4 cm in diameter with mass effect on the trachea and esophagus. This could represent a simple postoperative collection, hematoma or abscess. Findings: The heart size is normal. There is a large posterior mediastinal mass, Most likely a complex fluid collection, extending from the neck the diaphragm with mass effect on the trachea and esophagus. This measures up to 4 x 3 cm in transverse dimension. Mild associated narrowing of the trachea. No consolidation or pleural effusion. The visualized upper abdomen is unremarkable. Status post anterior metallic fusion at C7-T1. Appropriate alignment. No evidence of hardware failure. There is a moderate compression fracture at T8 with interval worsening, likely chronic. IMPRESSION: There is a large and extensive posterior mediastinal mass, most likely a complex fluid collection. This could represent a simple postoperative collection, hematoma or abscess. There is associated mass effect on the trachea and esophagus. Radiology Impression Discussion of test interpretation with radiology: I have reviewed the radiologist's reading. External Record Review External record reviewed: Inpatient record, Office record, Outpatient record, Prior outpatient labs, Prior outpatient radiology, Primary care record and Outside ED record Chronic Conditions Patient?s care impacted by: Other (see hpi ) Social Determinants Patient?s care significantly limited by Social Determinants of Health including: Other Social Determinant of Health Critical Care Time Critical Care Time Critical Care Time: Yes Total Critical Care Time: 45 Attestation: I attest to this time spent taking care of the patient, obtaining history, physical, reviewing labs, imaging, treatment of patients condition +/- specialist/hospitalist consult Discharge Plan Discharge Clinical Impression: Mediastinal mass, Shortness of breath, Hematoma, Difficulty swallowing Patient Disposition: [facility] Transfer Details: [facility] ED -ED Dr. Bell Prescriptions: No Action albuterol sulfate 90 mcg/actuation HFA aerosol inhaler 2 puff inhalation Q4-6H PRN (Reason: shortness of breath or wheezing) Qty: 8.5 0RF cholecalciferol (vitamin D3) [Vitamin D3] 50 mcg (2,000 unit) Capsule 50 mcg PO DAILY hydroxyzine HCl 10 mg Tablet 10 mg PO TID PRN (Reason: Anxiety) docusate sodium [Colace] 100 mg capsule 100 mg PO BID Qty: 20 0RF hydromorphone [Dilaudid] 4 mg tablet See Rx Instructions .ROUTE .COMPLEX PRN (Reason: pain) Qty: 20 0RF Rx Instructions: 1/2 tablet po q4 hours prn pain; Partial Fill upon patient request. bupropion HCl 150 mg tablet extended release 24 hr 150 mg PO QAM duloxetine 60 mg Capsule,Delayed Release(Dr/Ec) 60 mg PO DAILY 30 Days Qty: 30 0RF (DME) blood sugar diagnostic Strip See Rx Instructions Not Applicable BID Qty: 10 Rx Instructions: As directed (DME) blood-glucose meter [FreeStyle Steuben Lite] Kit See Rx Instructions .ROUTE .MEDSUPPLY Qty: 1 Rx Instructions: As directed (DME) Compact Space Chamber Spacer See Rx Instructions .ROUTE .MEDSUPPLY Qty: 1 Rx Instructions: As directed (DME) lancets [TRUEplus Lancets] 33 gauge misc See Rx Instructions Not Applicable BID Qty: 100 Rx Instructions: As directed Trelegy Ellipta 200-62.5-25 mcg blister with device 1 inh inhalation DAILY 30 Days Qty: 1 6RF atorvastatin 80 mg tablet 80 mg PO BEDTIME clonidine HCl 0.1 mg tablet 0.1 mg PO BID risperidone 0.25 mg tablet 1 mg PO BEDTIME quetiapine 100 mg tablet 100 mg PO BEDTIME vitamin E (dl, acetate) 45 mg (100 unit) capsule 45 mg PO DAILY omeprazole 20 mg tablet,delayed release (DR/EC) 20 mg PO BID 90 Days Qty: 180 1RF ondansetron 4 mg tablet,disintegrating 4 mg PO Q8H PRN (Reason: nausea and vomiting) 30 Days Qty: 60 3RF simethicone [Gas Relief (simethicone)] 125 mg capsule 125 mg PO BID-QID PRN (Reason: abdominal distention) 30 Days Qty: 90 1RF Trulicity 0.75 mg/0.5 mL pen injector 0.75 mg subcut QWEEK Patient Comments: patient takes on Sundays Interventions: Acute Care Transfer Worksheet (ED) Last Done: 06/09/24 16:21 Discharge Date/Time: 06/09/24 16:22 Print Language: Khmer
[2024-06-09 11:54] LABS: Basophils Absolute Auto 0.1 X10*3/uL (0.0-0.2); Basophils Percent Auto 0.5 % (0-2); Eosinophils Percent Auto 0.1 % (0-4); Hematocrit 43.8 % (37.0-47.0); Hemoglobin 14.2 g/dl (12.0-16.0); Imm Gran Pct Auto 0.7 % (0.0-0.4); Lymphocytes Absolute Auto 2.8 X10*3/uL (1.2-4.9); MANUAL DIFF FLAG SCAN; Mean Corpuscular HGB Conc 32.4 g/dl (31.0-35.0); Mean Corpuscular Hemoglobin 28.2 pg (27.0-33.0); Mean Corpuscular Volume 87.1 fL (80.0-98.0); Mean Platelet Volume 9.4 fL (9.4-12.3); Monocytes Absolute Auto 1.7 X10*3/uL (0.1-1.2); Monocytes Percent Auto 11.3 % (2-11); Neutrophils Percent Auto 68.4 % (45-73); Platelet Count 275 X10*3/uL (160-400); Red Blood Count 5.03 X10*6/uL (4.20-5.50); Red Cell Distribution Width 16.3 % (11.0-16.0); SCAN SMEAR FLAG 1; White Blood Count 14.7 X10*3/uL (4.8-10.8)
[2024-06-09 11:59] LABS: INTERNATIONAL NORM RATIO 1.3 (0.9-1.1); Prothrombin Time 15.4 SEC (10.9-12.4)
[2024-06-09 12:01] LABS: Partial Thromboplastin Time 34.1 SEC (26.0-36.8)
[2024-06-09] MEDS: dexAMETHasone sod phosphate 10 MG/ML VIAL IVPUSH (12:10)
[2024-06-09 12:12] LABS: Alanine Aminotransferase 31 U/L (0-31); Albumin Level 4.5 g/dL (3.5-5.0); Alkaline Phosphatase 216 U/L (39-117); Anion Gap 19 (12-20); Aspartate Amino Transferase 39 U/L (5-31); B Type Natriuretic Peptide < 10 pg/mL (<100); Bilirubin Total 2.8 mg/dL (0.0-1.0); Blood Urea Nitrogen 19 mg/dL (9-16); Calcium 10.5 mg/dL (8.4-10.2); Carbon Dioxide 25 mmol/L (22-29); Chloride 101 mmol/L (96-108); Creatinine Clr Calc Pharmacy 69.4; Estimated Glomerular Filt Rate > 60; Glucose Random 148 mg/dL (60-115); Sodium 141 mmol/L (135-145); Total Protein 9.3 g/dL (6.5-8.0)
[2024-06-09 12:16] LABS: SLIDE REVIEW VERIFIED
[2024-06-09 12:21] LABS: Troponin-I High Sensitivity < 2.7 ng/L (<3.5-17.0)
[2024-06-09 12:26] LABS: Influenza A PCR NEGATIVE (Negative); Influenza B PCR NEGATIVE (Negative); Resp Syncy Virus RNA Qual PCR NEGATIVE (Negative); SARS COV2 PCR INHOUSE NEGATIVE (Negative)
[2024-06-09] MEDS: iohexoL 350 MG/ML 100 ML INFUS..BTL IV (12:32)
[2024-06-09] MEDS: Piperacillin Sodium/Tazobactam 3.375 GM in 0.9 % Sodium Chloride 50 ML IV (12:37)
[2024-06-09 12:59] LABS: Lactic Acid 1.4 mmol/L (0.5-2.0)
[2024-06-09 12:59] LABS: Erythrocyte Sedimentation Rate 59 MM/HR (0-20)
[2024-06-09 13:00] VITALS: BP 116/67; PULSE 106; RESP 20; TEMP 36.4; O2SAT 96
--- NOTE | 2024-06-09 13:02 | PC.NURSE ---
Patient titrated up to 4L NC, intermittent cough w/ audible stridor noted. Provider aware.
[2024-06-09] MEDS: fentaNYL citrate/PF 100 MCG/2 ML VIAL 50 MCG IVPUSH (13:34)
[2024-06-09 13:41] LABS: C Reactive Protein 8.97 mg/dL (< or = 0.50)
--- NOTE | 2024-06-09 14:42 | PC.NURSE ---
Called shannon, spoke to Mai MANUEL for RN to RN report, all questions answered, patient to be transferred over via ALS when transport available.
[2024-06-09 14:43] VITALS: BP 120/72; PULSE 105; RESP 20; O2SAT 95
[2024-06-09 15:08] VITALS: BP 137/67; PULSE 101; RESP 20; TEMP 36.4; O2SAT 97
--- NOTE | 2024-06-09 15:09 | PC.NURSE ---
EMS concerned about potential of airway compromise during transport, patient to be flown to [facility] awaiting flight team arrival.
[2024-06-09 15:35] LABS: INTERNATIONAL NORM RATIO 1.3 (0.9-1.1); Prothrombin Time 15.6 SEC (10.9-12.4)
[2024-06-09 16:21] VITALS: BP 137/67; PULSE 101; RESP 20; TEMP 36.4; O2SAT 97
== END 2024-06-09 16:22 | disposition short-term general hospital (02) ==
PROVIDERS: Physician Assistant; Emergency Provider Emergency Medicine; PCP Registered Nurse
DX: R06.02 Shortness of breath (principal); R13.10 Dysphagia, unspecified; R05.9 Cough, unspecified; M54.2 Cervicalgia; R00.0 Tachycardia, unspecified; Z03.818 Encounter for observation for suspected exposure to other biological agents ruled out; Z87.891 Personal history of nicotine dependence; Z79.899 Other long term (current) drug therapy
CPT/HCPCS: 0241U; 36415; 70491; 71260; 80053; 83605; 83880; 84484; 85025; 85610; 85652; 85730; 86140; 86850; 86900; 86901; 87040; 93005; 96365; 96375; 99285; J1100; J2543; J3010; Q9967

== ENCOUNTER → 2024-06-09 11:19 | Outpatient (BNV) | payer OTHER, SELFPAY | PROVIDERS: Emergency Provider Emergency Medicine; PCP Registered Nurse; Visit Provider Internal Medicine | DX: R06.02 Shortness of breath (principal); R00.0 Tachycardia, unspecified; R94.31 Abnormal electrocardiogram [ECG] [EKG] | CPT/HCPCS: 93010 ==

== ENCOUNTER → 2024-06-09 11:59 | Outpatient (BNV) | payer OTHER, SELFPAY | PROVIDERS: Emergency Provider Emergency Medicine; PCP Registered Nurse; Visit Provider Radiology Diagnostic Radiology | DX: M54.2 Cervicalgia (principal); J39.8 Other specified diseases of upper respiratory tract | CPT/HCPCS: 70491; 71260 ==

== ENCOUNTER 2024-07-12 07:10 | Outpatient (AMB) | payer OTHER, SELFPAY ==
--- OUTSIDE RECORDS SUMMARY | 2024-07-12 07:14 | XMS_ITS | Encounter Summary ---
Author Organization [email or web address] Address [address] [place] [address] [address] [place] [address] Care Team Providers Care Coat Feller Name Role Phone [facility] Primary Care Provider [phone] [facility] Unavailable Unavailable Reason for Visit * Reason Comments Med Refill Encounter Details Date Type Department Care Team ([facility] st Contact Info) Description 03/28/2024 Refill [facility] MEDICINE [address] [place] [address] [facility] [address] [place], [place] [id number] Primary hypertension Social History Tobacco Use Types [...] Care Team (Late st Contact Info) Description 09/20/2024 1:15 PM EDT Office Visit [facility] MEDICINE [address] [place] [address] Ashanti August FNP [address] [place] [address] documented as of this encounter Visit Diagnoses Diagnosis Primary hypertension Unspecified essential hypertension documented in this encounter Additional Health Concerns Assessment Noted Time PHQ-9 Depression Total Score: 0 12/20/19 10:36 AM EDT documented as of this encounter Care Teams Coat Feller Relationship Specialty Start Date End Date Ashanti August FNP [address] [id number] PCP - General Family Medicine 11/24/21 Jeff Villarreal FNP [address] [id number] Nurse Practitioner Family Medicine 02/20/23 documented as of this encounter
--- OUTSIDE RECORDS SUMMARY | 2024-07-12 07:14 | XMS_ITS | Encounter Summary ---
Author Organization [employer] Address [address] [place] [address] [address] [place] [address] Care Team Providers Care Excavator Backhoe Operator Name Role Phone Ashanti August [facility] Primary Care Provider [phone] Jeff Villarreal [facility] Unavailable Unavailable Encounter Details Date Type Department Care Team (Late st Contact Info) Description 03/29/2024 Telephone [facility] [address] [place] [address] Heriberto العراقي, KeithD Social History Tobacco Use [...] Description 09/20/2024 1:15 PM EDT Office Visit [facility] [address] [place] [address] Ashanti August FNP [address] [place] [address] documented as of this encounter Visit Diagnoses Not on filedocumented in this encounter Additional Health Concerns Assessment Noted Time PHQ-9 Depression Total Score: 0 12/20/19 24 10:36 AM EDT documented as of this encounter Care Teams Excavator Backhoe Operator Relationship Specialty Start Date End Date Ashanti August FNP [address] [place] [id number] PCP - General Family Medicine 11/24/21 Jeff Villarreal FNP [address] [place] [id number] Nurse Practitioner Family Medicine 02/20/23 documented as of this encounter
--- OUTSIDE RECORDS SUMMARY | 2024-07-12 07:14 | XMS_ITS | Encounter Summary ---
Author Organization [employer] Address [address] [place] [address] 7 [place] [address] Care Team Providers Care Men'S Golf Coach Name Role Phone Mata [facility] Primary Care Provider [phone] Jeff Villarreal Unavailable Unavailable Encounter Details Date Type Department Care Team (Late st Contact Info) Description 05/24/2022 Orders Only [facility] [address] [place] [phone] Isabel Escalante LPN Social History Tobacco Use [...] Description 09/20/2024 1:15 PM EDT Office Visit [facility] [address] [place] [address] [phone] Ashanti August FNP [address] [place], [place] [phone] documented as of this encounter Visit Diagnoses Not on filedocumented in this encounter Additional Health Concerns Assessment Noted Time PHQ-9 Depression Total Score: 13 023 2:44 PM EST documented as of this encounter Care Teams Men'S Golf Coach Relationship Specialty Start Date End Date Ashanti August FNP [address] [place] [address] PCP - General Family Medicine 11/24/21 Jeff Villarreal FNP [address] [place] [address] Nurse Practitioner Family Medicine 02/20/23 documented as of this encounter
--- OUTSIDE RECORDS SUMMARY | 2024-07-12 07:14 | XMS_ITS | Encounter Summary ---
Author Organization [employer] Address [address] [place] [address] 7 [place] [address] Care Team Providers Care Director Medical Safety Name Role Phone [facility] Primary Care Provider [phone] [facility] Unavailable Unavailable Reason for Visit * Reason Onset Date Comments ER Follow-up 04/25/2023 Encounter Details Date Type Department Care Team (Late st Contact Info) Description 04/25/2023 Telephone [facility] [address] [place], [place] [phone] [facility] [address] [place], [place] [phone] ER Follow-up Social History Tobacco Use Types [...] 04/25/2023 9:39 AM EST Pt. Admitted to [facility] 04/19-04/21 for acute hyperkalemia, UTI and metabolic encephalopathy. Please contact for HDF, thank you! * Telephone Encounter - Kem Carrillo - 04/25/2023 9:24 AM EST Patient calling to report ED visit on : Date: 04/19/23 Hospital: [facility] Seen for: UTI Patient advised will forward to team nurse for follow up documented in this encounter Plan of Treatment Upcoming Encounters Date Type Department Care Team (Late st Contact Info) Description 09/20/2024 1:15 PM EDT Office Visit [facility] [address] [place] [address] [place], [place], [facility] [address] [place] [address] documented as of this encounter Visit Diagnoses Not on filedocumented in this encounter Additional Health Concerns Assessment Noted Time PHQ-9 Depression Total Score: 7 04/13/19 8:57 AM EST documented as of this encounter Care Teams Director Medical Safety Relationship Specialty Start Date End Date Ashanti August FNP [address] [place] [address] PCP - General Family Medicine 11/24/21 Jeff Villarreal FNP [address] [place] [address] Nurse Practitioner Family Medicine 02/20/23 documented as of this encounter
--- OUTSIDE RECORDS SUMMARY | 2024-07-12 07:14 | XMS_ITS | Encounter Summary ---
Author Organization [employer] Address [address] [place] [address] 7 [place] [address] Care Team Providers Care Desk Manager Name Role Phone [facility] Primary Care Provider [phone] Jeff Villarreal [facility] Unavailable Unavailable Reason for Visit * Reason Comments Med Refill Encounter Details Date Type Department Care Team ([facility] st Contact Info) Description 03/20/2024 Refill [facility] [address] [place] [address] [facility] [address] [place], [place] [phone] Primary hypertension Social History Tobacco Use Types [...] Description 09/20/2024 1:15 PM EDT Office Visit [facility] [address] [place] [address] Ashanti August FNP [address] [place] [address] documented as of this encounter Visit Diagnoses Diagnosis Primary hypertension Unspecified essential hypertension documented in this encounter Additional Health Concerns Assessment Noted Time PHQ-9 Depression Total Score: 0 12/20/19 10:36 AM EDT documented as of this encounter Care Teams Desk Manager Relationship Specialty Start Date End Date Ashanti August FNP [address] [place] [address] PCP - General Family Medicine 11/24/21 Jeff Villarreal FNP [address] [place] [address] Nurse Practitioner Family Medicine 02/20/23 documented as of this encounter
--- OUTSIDE RECORDS SUMMARY | 2024-07-12 07:14 | XMS_ITS | Encounter Summary ---
Author Organization [employer] Address [address] [place] [address] 7t [place] [address] Care Team Providers Care Vault Installer Name Role Phone Ashanti August [facility] Primary Care Provider [phone] Jeff Villarreal [facility] Unavailable Unavailable Encounter Details Date Type Department Care Team (Late st Contact Info) Description 02/16/2023 Abstract [facility] [address] [place] [address] Marta Adam Social History Tobacco Use Types [...] Description 09/20/2024 1:15 PM EDT Office Visit [facility] [address] [place] [address] Ashanti August FNP [address] [place] [address] documented as of this encounter Procedures Procedure Name Priority Date/Time Associated Diagnosis Comments COLONOSCOPY Routine 07/30/2019 documented in this encounter Results * Colonoscopy (07/30/2019) Colonoscopy Normal Normal Narrative Marta Adam - 07/30/2019 Repeat in 3 years Historical Provider HEALTH MAINTENANCE Final Result documented in this encounter Visit Diagnoses Not on filedocumented in this encounter Additional Health Concerns Assessment Noted Time PHQ-9 Depression Total Score: 14 023 9:52 AM EDT documented as of this encounter Care Teams Vault Installer Relationship Specialty Start Date End Date Ashanti August FNP [address] [place] [address] PCP - General Family Medicine 11/24/21 Jeff Villarreal FNP [address] [place] [address] Nurse Practitioner Family Medicine 02/20/23 documented as of this encounter
--- OUTSIDE RECORDS SUMMARY | 2024-07-12 07:14 | XMS_ITS | Encounter Summary ---
Author Organization [employer] Address [address] [place] [address] 7 [place] [address] Care Team Providers Care Hanger Name Role Phone Ashanti August [facility] Primary Care Provider [phone] Jeff Villarreal Unavailable Unavailable Reason for Visit * Reason Comments Med Refill Encounter Details Date Type Department Care Team ([facility] st Contact Info) Description 04/28/2023 Refill [facility] [address] [place] [address] Jeff Villarreal FNP Social History Tobacco Use [...] Description 09/20/2024 1:15 PM EDT Office Visit [facility] [address] [place] [address] Ashanti August FNP [address] [place] [address] documented as of this encounter Visit Diagnoses Not on filedocumented in this encounter Additional Health Concerns Assessment Noted Time PHQ-9 Depression Total Score: 7 04/13/19 24 8:57 AM EST documented as of this encounter Care Teams Hanger Relationship Specialty Start Date End Date Ashanti August FNP [address] [place] [address] PCP - General Family Medicine 11/24/21 Jeff Villarreal FNP [address] [place] [address] Nurse Practitioner Family Medicine 02/20/23 documented as of this encounter
--- OUTSIDE RECORDS SUMMARY | 2024-07-12 07:14 | XMS_ITS | Encounter Summary ---
Author Organization [employer] Address [address] [place] [address] 7 [place] [address] Care Team Providers Care Rim Turning Finisher Name Role Phone [facility] Primary Care Provider [phone] Jeff Villarreal [facility] Unavailable Unavailable Reason for Visit * Reason Comments Med Refill Encounter Details Date Type Department Care Team ([facility] st Contact Info) Description 03/29/[address] [facility] [address] [place] [address] [facility] [address] [place], [place] [phone] Primary hypertension Social History Tobacco Use Types [...] Description 09/20/2024 1:15 PM EDT Office Visit [facility] [address] [place] [address] Ashanti August FNP [address] [place] [address] documented as of this encounter Visit Diagnoses Diagnosis Primary hypertension Unspecified essential hypertension documented in this encounter Additional Health Concerns Assessment Noted Time PHQ-9 Depression Total Score: 0 12/20/19 10:36 AM EDT documented as of this encounter Care Teams Rim Turning Finisher Relationship Specialty Start Date End Date Ashanti August FNP [address] [place] [address] PCP - General Family Medicine 11/24/21 Jeff Villarreal FNP [address] [place] [address] Nurse Practitioner Family Medicine 02/20/23 documented as of this encounter
--- OUTSIDE RECORDS SUMMARY | 2024-07-12 07:14 | XMS_ITS | Encounter Summary ---
Author Organization [employer] Address [address] [place] [address] 7 [place] [address] Care Team Providers Care Roofing Plant Supervisor Name Role Phone [facility] Primary Care Provider [phone] Jeff Villarreal NEUROSURGERY PHYSICIAN Unavailable Unavailable Encounter Details Date Type Department Care Team (Late st Contact Info) Description 07/22/2022 Orders Only [facility] [address] [place], [place] [phone] Elizabeth Meadows LPN Social History Tobacco Use [...] Description 09/20/2024 1:15 PM EDT Office Visit [facility] 230 [place], [place] [phone] [facility], NEUROSURGERY PHYSICIAN [address] [place], [place] [phone] documented as of this encounter Visit Diagnoses Not on filedocumented in this encounter Additional Health Concerns Assessment Noted Time PHQ-9 Depression Total Score: 13 023 2:44 PM EST documented as of this encounter Care Teams Roofing Plant Supervisor Relationship Specialty Start Date End Date Ashanti August FNP [address] [place] [address] PCP - General Family Medicine 11/24/21 Jeff Villarreal FNP [address] [place] [address] Nurse Practitioner Family Medicine 02/20/23 documented as of this encounter
--- OUTSIDE RECORDS SUMMARY | 2024-07-12 07:14 | XMS_ITS | Encounter Summary ---
Author Organization [employer] Address [address] [place] [address] 7 [place] [address] Care Team Providers Care Brain Wave Technician Name Role Phone [facility] Primary Care Provider [phone] Jeff Villarreal [facility] Unavailable Unavailable Reason for Visit * Reason Comments Med Refill Encounter Details Date Type Department Care Team ([facility] st Contact Info) Description 11/01/2023 Refill [facility] [address] [place] [address] [facility] [address] [place], [place] [phone] Chronic obstructive pulmonary disease, unspecified COPD type [...] Description 09/20/2024 1:15 PM EDT Office Visit [facility] [address] [place] [address] [place] Ashanti [facility] [address] [place] [address] documented as of this encounter Visit Diagnoses Diagnosis Chronic obstructive pulmonary disease, unspecified COPD type (CMS/HCC) documented in this encounter Additional Health Concerns Assessment Noted Time PHQ-9 Depression Total Score: 15 024 10:15 AM EDT documented as of this encounter Care Teams Brain Wave Technician Relationship Specialty Start Date End Date HoustonAshanti FNP [address] [place] [address] PCP - General Family Medicine 11/24/21 Jeff Villarreal FNP [address] [place] [address] Nurse Practitioner Family Medicine 02/20/23 documented as of this encounter
--- OUTSIDE RECORDS SUMMARY | 2024-07-12 07:14 | XMS_ITS | Clinical Summary ---
Author Organization [facility] Address [address] [place] [address] Care Team Providers Care Shaving Machine Operator Name Role Phone Ashanti August Primary Care Provider [phone] Surgical History Surgery Date Site/Laterality Comments TOTAL KNEE ARTHROPLASTY Bilateral PROCEDURE: OK ARTHRP KNE CONDYLE&PLATU MEDIAL&LAT COMPARTMENTS BLADDER SURGERY PROCEDURE: HISTORICAL BLADDER SURGERY OTHER SURGICAL HISTORY 09/21/2021 PROCEDURE: OK PATRICIO FACETECTOMY & FORAMOTOMY 1 VRT SGM LUMBAR; COMMENT: L4-5 decompression, resection of left synovial cyst, placement of Coflex device, Dr. Trinidad CHOLECYSTECTOMY PROCEDURE: HISTORICAL CHOLECYSTECTOMY TUBAL LIGATION PROCEDURE: HISTORICAL TUBAL LIGATION OTHER SURGICAL HISTORY 01/24/2022 PROCEDURE: OK ARTHRODESIS POSTERIOR INTERBODY 1 NTRSPC LUMBAR; COMMENT: Removal of Coflex device L4-5, L4-5 resection of bilateral synovial cysts and fusion, Dr. Trinidad OTHER SURGICAL HISTORY 02/20/2023 PROCEDURE: OK PERQ VERT AGMNTJ CAVITY CRTJ UNI/BI CANNULJ LMBR; COMMENT: L2 kyphoplasty, Dr. Trinidad Medical History Medical History Date Comments Bronchitis DX:Bronchitis Diabetes mellitus type 2, co ntrolled, with complications ([facility] V24, [facility] V28) DX:Diabetes mellitus type 2, controlled, with complications ([facility]) Fibromyalgia DX:Fibromyalgia Hx of neck surgery DX:Hx of neck surgery; COMMENT: x 3 COPD (chronic obstructive pu lmonary disease) ([facility] V24, [facility] V28) DX:COPD (chronic o bstructive pulmonary disease) ([facility]) GERD (gastroesophageal reflux disease) DX:GERD (gastroesophageal reflux [...] season) 2023 02/23/2021, 07/08/2020, 06/10/2020 Influenza Vaccine (Season Ended) 2024 12/22/2020, 11/27/2019, 01/10/2019, Additional history exists DTaP,Tdap,and Td Vaccines (2 - Td or Tdap) 01/17/2029 01/17/2019 RSV Immunization Adult Patients (1 - 1-dose 75+ series) 2036 Zoster [...] age to complete this topic Meningococcal B Vaccine Aged Out No l onger eligible based on patient's age to complete [...] Documents on File Type Date Recorded Patient Senior Ui Software Engineer Expl anation Health Care Decision (hx) 10/02/2021 AD EMERY DIRECTIVE Health Care Decision (hx) 10/02/2021 AD EMERY DIRECTIVE Health Care Decision (hx) 10/02/2021 AD EMERY DIRECTIVE Health Care Decision (hx) 10/02/2021 AD EMERY DIRECTIVE Health Care Decision (hx) 10/02/2021 AD EMERY DIRECTIVE Health Care Decision (hx) 10/02/2021 AD EMERY DIRECTIVE Care Teams Shaving Machine Operator Relationship Specialty Start Date End Date [facility] [address] [place] [phone] PCP - General 10/06/23
--- OUTSIDE RECORDS SUMMARY | 2024-07-12 07:14 | XMS_ITS | Encounter Summary ---
Author Organization [employer] Address [address] [place] [address] 7t [place] [address] Care Team Providers Care Studio Manager Name Role Phone [facility] Primary Care Provider [phone] Jeff Villarreal Unavailable Unavailable Encounter Details Date Type Department Care Team ([facility] Contact Info) Description 05/03/2022 Orders Only [facility] [address] [place], [place] [phone] Elizabeth Meadows LPN Social History Tobacco Use [...] Department Care Team (Late Contact Info) Description 09/20/2024 1:15 PM EDT Office Visit [facility] 230 [place], [place] [phone] [place] Ashanti [facility] [address] [place] [address] documented as of this encounter Visit Diagnoses Not on filedocumented in this encounter Additional Health Concerns Assessment Noted Time PHQ-9 Depression Total Score: 13 023 2:44 PM EST documented as of this encounter Care Teams Studio Manager Relationship Specialty Start Date End Date Ashanti August FNP [address] [place] [address] PCP - General Family Medicine 11/24/21 Jeff Villarreal FNP [address] [place] [address] Nurse Practitioner Family Medicine 02/20/23 documented as of this encounter
--- OUTSIDE RECORDS SUMMARY | 2024-07-12 07:14 | XMS_ITS | Encounter Summary ---
Author Organization [employer] Address [address] [facility] 7t [place] [address] Care Team Providers Care Security Field Supervisor Name Role Phone Ashanti August CLINICAL IMMUNOLOGIST Primary Care Provider [phone] Jeff Villarreal CLINICAL IMMUNOLOGIST Unavailable Unavailable Encounter Details Date Type Department Care Team (Late st Contact Info) Description 02/21/2023 Orders Only [facility] [address] [place] [address] Isabel Escalante LPN Social History Tobacco Use [...] Description 09/20/2024 1:15 PM EDT Office Visit [facility] 230 [place] [address] Ashanti August FNP [address] [place] [address] documented as of this encounter Visit Diagnoses Not on filedocumented in this encounter Additional Health Concerns Assessment Noted Time PHQ-9 Depression Total Score: 14 023 9:52 AM EDT documented as of this encounter Care Teams Security Field Supervisor Relationship Specialty Start Date End Date Ashanti August FNP [address] [place] [address] PCP - General Family Medicine 11/24/21 Jeff Villarreal FNP [address] [place] [address] Nurse Practitioner Family Medicine 02/20/23 documented as of this encounter
--- OUTSIDE RECORDS SUMMARY | 2024-07-12 07:14 | XMS_ITS | Encounter Summary ---
Author Organization [employer] Address [address] [place] [address] 7 [place] [address] Care Team Providers Care Health Physics Technician Name Role Phone [facility] Primary Care Provider [phone] Jeff Villarreal [facility] Unavailable Unavailable Reason for Visit * Reason Onset Date Comments Nurse Triage 02/07/2024 Encounter Details Date Type Department Care Team (Late st Contact Info) Description 02/07/2024 Telephone [facility] [address] [place] [address] [facility] [address] [place] [address] Nurse Triage Social History Tobacco Use Types [...] advised to come to WIC at the [facility] today for provider to check urine for [...] caller accepted this outcome. Contact pt at [phone] documented in this encounter Plan of Treatment Upcoming Encounters Date Type Department Care Team ([facility] st Contact Info) Description 09/20/2024 1:15 PM EDT Office Visit [facility] [address] [place] [address] Ashanti August FNP [address] [place] [address] documented as of this encounter Visit Diagnoses Not on filedocumented in this encounter Additional Health Concerns Assessment Noted Time PHQ-9 Depression Total Score: 0 12/20/19 10:36 AM EDT documented as of this encounter Care Teams Health Physics Technician Relationship Specialty Start Date End Date Ashanti August FNP [address] [place] [address] PCP - General Family Medicine 11/24/21 Jeff Villarreal FNP [address] [place] [address] Nurse Practitioner Family Medicine 02/20/23 documented as of this encounter
--- OUTSIDE RECORDS SUMMARY | 2024-07-12 07:14 | XMS_ITS | Clinical Summary ---
Author Organization [facility] Address [address] [place] [address] Care Team Providers Care Electrician'S Helper Name Role Phone Pcp, No Primary Care [...] (11/24/2021): Added automatically from request for surgery [id number] Ischemic bowel disease 11/24/2021 Social History Tobacco [...] Nonreactive Nonreactive S/CO 11/24/2021 11:21 AM EDT [employer] [facility] Hepatitis B Core Antibody IgM Nonreactive Nonreactive 11/24/2021 11:21 AM EDT [employer] [facility] Hepatitis B Surface Ag Screen Nonreactive Nonreactive 11/24/2021 11:21 AM EDT [employer] [facility] Hepatitis C Antibody 0.54 0.00 - 0.79 S/CO ratio 11/24/2021 11:21 AM EDT [employer] Hepatitis C Antibody Interpretation Nonreactive Nonreactive 11/24/2021 11:21 AM EDT [employer] [facility] Hepatitis Interpretation: Results inconsistent with acute Hepatitis A, B or C Virus infection. 11/24/2021 11:21 AM EDT [employer] [facility] Blood specimen (specimen) Serum specimen / Unknown 11/24/2021 6:13 AM EDT 11/24/2021 6:40 AM EDT [facility] [employer] [facility] [address] [place] [place] [address] from Last 3 Months or Most Recently Relevant to Health Maintenance Advance Directives * Full Code (Latest Code Status on File) Date Activated Date Inactivated Comments 11/24/2021 3:35 AM 12/15/2021 3:20 PM Care Teams Electrician'S Helper Relationship Specialty Start Date End Date Pcp, No PCP - General General Medicine 11/28/21
--- OUTSIDE RECORDS SUMMARY | 2024-07-12 07:14 | XMS_ITS | Encounter Summary ---
Author Organization [employer] Address [address] [place] [address] 7 [place] [address] Care Team Providers Care Clinical Research Management Associate Name Role Phone [facility] Primary Care Provider [phone] Jeff Villarreal [facility] Unavailable Unavailable Encounter Details Date Type Department Care Team (Late st Contact Info) Description 05/24/2023 Orders Only [facility] [address] [place] [address] [facility] [address] [place] [address] Social History Tobacco Use Types Packs/Day Years [...] is your housing situation today? I have janakheidi palafox 01/19/[address] you [...] Office Visit [facility] [address] [place] [address] [facility] [address] [place] [address] documented as of this encounter Procedures Procedure [...] EST Narrative 05/24/2023 2:51 PM EST ? [facility] ?[address] ?[place] [address] ? CT Scan Report ? Signed ? Patient: Salmeron,Sharri ?MR#: [id number] ?? 703 ? : 1960 ?Acct:[id number] ? Age/Sex: 62 / F ?ADM Date: 02/21/24 ? Loc: HO.ED ? Attending Dr: ? Ordering Physician: Tanmay Alvarado MD ?? Date of Service: 05/24/23 ?? Procedure(s): CT cervical spine wo IV con ?? Accession Number(s): [id number] ? cc: Tanmay Alvarado MD; Ashanti August [...] 1447 ? DD/ 1331 ? TD/TT: ? Cleaning Technician: ? Procedure Note Gerson Carrion - 05/24/[address] [place] [address] [address] Scan Report Signed Patient: Allyson Salmeron#: [id number] 703 : 2Acct:[id number] Age/Sex: 62 / FADM Date: 05/24/23 Loc: HO.ED Attending Dr: Ordering Physician: Tanmay Alvarado MD Date of Service: 05/24/23 Procedure(s): CT cervical spine wo IV con Accession Number(s): [id number] cc: Tanmay Alvarado MD; Ashanti August [facility] EXAMINATION: CT HEAD WITHOUT CONTRAST CLINICAL INFORMATION: [...] in OV> 05/24/23 1447 DD/ 1331 TD/TT: Cleaning Technician: [facility] External Provider IM CT PROCEDURES Final Result * CT Head w/o Contrast (05/24/2023 1:31 PM EST) Anatomical Region Laterality Modality Head, Neck Computed Tomogra phy 05/24/2023 1:31 PM EST Narrative 05/24/2023 2:51 PM EST ? [facility] ?[address] ?[place] [address] ? CT Scan Report ? Signed ? Patient: Salmeron,Sharri ?MR#: [id number] ?? 703 ? : 1960 ?Acct:[id number] ? Age/Sex: 62 / F ?ADM Date: 05/24/23 ? Loc: HO.ED ? Attending Dr: ? Ordering Physician: Tanmay Alvarado MD ?? Date of Service: 05/24/23 ?? Procedure(s): CT head/brain wo IV con ?? Accession Number(s): [id number] ? cc: Tanmay Alvarado MD; Ashanti August [...] 1447 ? DD/ 1331 ? TD/TT: ? Cleaning Technician: ? Procedure Note Sheyla, Image - 05/24/[address] [address] [address] Scan Report Signed Patient: Allyson Salmeron#: [id number] 703 : 2Acct:[id number] Age/Sex: 62 / FADM Date: 02/21/24 Loc: HO.ED Attending Dr: Ordering Physician: Tanmay Alvarado MD Date of Service: 05/24/23 Procedure(s): CT head/brain wo IV con Accession Number(s): [id number] cc: Tanmay Alvarado MD; [facility]: CT HEAD WITHOUT CONTRAST CLINICAL INFORMATION: [...] in OV> 05/24/23 1447 DD/ 1331 TD/TT: Cleaning Technician: [facility] External Provider IMG CT PROCEDURES Final Result documented in this encounter Visit Diagnoses Not on filedocumented in this encounter Additional Health Concerns Assessment Noted Time PHQ-9 Depression Total Score: 7 04/13/19 8:57 AM EST documented as of this encounter Care Teams Clinical Research Management Associate Relationship Specialty Start Date End Date Ashanti August FNP [address] [place] [address] PCP - General Family Medicine 11/24/21 Jeff Villarreal FNP [address] [place] [address] Nurse Practitioner Family Medicine 02/20/23 documented as of this encounter
--- OUTSIDE RECORDS SUMMARY | 2024-07-12 07:14 | XMS_ITS | Encounter Summary ---
Author Organization [employer] Address [address] [place] [address] 7 [place] [address] Care Team Providers Care Supervisor Photocomposition Name Role Phone [facility] Primary Care Provider [phone] Jeff Villarreal [facility] Unavailable Unavailable Reason for Visit * Reason Comments Med Refill Encounter Details Date Type Department Care Team ([facility] st Contact Info) Description 03/29/2024 Refill [facility] [address] [place] [address] [facility] [address] [place], [place] [phone] Primary hypertension Social History Tobacco Use Types [...] PM EDT Office Visit [facility] [address] [place] [address] Ashanti August FNP [address] [place] [address] documented as of this encounter Visit Diagnoses Diagnosis Primary hypertension Unspecified essential hypertension documented in this encounter Additional Health Concerns Assessment Noted Time PHQ-9 Depression Total Score: 0 12/20/19 10:36 AM EDT documented as of this encounter Care Teams Supervisor Photocomposition Relationship Specialty Start Date End Date Ashanti August FNP [address] [place] [address] PCP - General Family Medicine 11/24/21 Jeff Villarreal FNP [address] [place] [address] Nurse Practitioner Family Medicine 02/20/23 documented as of this encounter
--- OUTSIDE RECORDS SUMMARY | 2024-07-12 07:14 | XMS_ITS | Clinical Summary ---
Author Organization [facility] Address [address] [place] [address] Care Team Providers Care Diet Counselor Name Role Phone Suri Diamond GABBY [...] Resolved Date Yeast vaginitis 05/22/2013 11/20/2020 Immunizations Immunization Administration Dates Next Due INFLUENZA, SEASONAL, INJECTABLE [...] Plan of Treatment Not on file Insurance [facility] [employer] Member Subscriber Plan / Payer (Ef fective 2013-Present) Name:Rusty Salmeronlia Relation to Subscriber:Self Name:Rusty Salmeronlia Payer ID:[id number] Group ID:[id number] Type:Medicaid Address: [facility] [address] [place] [address] Care Teams Diet Counselor Relationship Specialty Start Date End Date Suri Diamond NP PCP - General Family Medicine TRIMMER OPERATOR 12/17/12
--- OUTSIDE RECORDS SUMMARY | 2024-07-12 07:14 | XMS_ITS | Encounter Summary ---
Author Organization [employer] Address [address] [place] [address] 7 [place] [address] Care Team Providers Care Custodial Officer Name Role Phone [facility] Primary Care Provider [phone] Jeff Villarreal [facility] Unavailable Unavailable Reason for Visit * Reason Onset Date Comments Med Refill 04/04/2023 Encounter Details Date Type Department Care Team (Late st Contact Info) Description 04/04/2023 Telephone [facility] [address] [place], [place] [phone] [facility] [address] [place] [address] Med Refill Social History Tobacco Use Types [...] 2 MG tablet To be sent to: [facility] - [place], [place] - [address] [facility] documented in this encounter Plan of Treatment Upcoming Encounters Date Type Department Care Team (Late st Contact Info) Description 09/20/2024 1:15 PM EDT Office Visit [facility] [address] [place] [address] MataAshanti FNP [address] [place] [address] documented as of this encounter Visit Diagnoses Not on filedocumented in this encounter Additional Health Concerns Assessment Noted Time PHQ-9 Depression Total Score: 0 03/06/20 12:04 PM EST documented as of this encounter Care Teams Custodial Officer Relationship Specialty Start Date End Date Ashanti August FNP [address] [place] [address] PCP - General Family Medicine 11/24/21 Jeff Villarreal FNP [address] [place] [address] Nurse Practitioner Family Medicine 02/20/23 documented as of this encounter
--- OUTSIDE RECORDS SUMMARY | 2024-07-12 07:14 | XMS_ITS | Encounter Summary ---
Author Organization [employer] Address [address] [place] [address] 7 [place] [address] Care Team Providers Care Acute Coordinator Name Role Phone Ashanti August Primary Care Provider [phone] Jeff Villarreal Unavailable Unavailable Encounter Details Date Type Department Care Team (Late Contact Info) Description 03/24/2022 Orders Only [facility] [address] [place], [place] [phone] Isabel Escalante LPN Social History Tobacco Use [...] Description 09/20/2024 1:15 PM EDT Office Visit [facility] [address] [place], [place] [phone] Ashanti August FNP [address] [place] [address] documented as of this encounter Visit Diagnoses Not on filedocumented in this encounter Care Teams Acute Coordinator Relationship Specialty Start Date End Date Ashanti August FNP [address] [place] [address] PCP - General Family Medicine 11/24/21 Jeff Villarreal FNP [address] [place] [address] Nurse Practitioner Family Medicine 02/20/23 documented as of this encounter
--- OUTSIDE RECORDS SUMMARY | 2024-07-12 07:14 | XMS_ITS | Clinical Summary ---
Author Organization [facility] Address [address] [phone] Phone Care Team Providers Care Deportation Officer Name Role Phone Unavailable Primary Care Provider [...] REAL cirrhosis ?? Followed by [facility] Aortic valve sclerosis 10/25/2022 Anemia 10/25/2022 [...] results. ?? S/p multiple spinal surgeries through [facility] 09/2021 for cyst removal ?? 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 Followed by [facility] urology ?? Bethanechol Finding of hand region 09/20/2022 Overview (03/07/2023): Last Assessment & Plan: Due to increased albuterol use, trest of neurological exam is normal. No evidence of other EPS. Vascular insufficiency of intestine 11/24/2021 Ischemic colitis 11/24/2021 Overview (02/21/2022): Added automatically from request for surgery [id number] Congestive heart failure 02/27/2021 023 Overview (03/07/2023): [...] ?? Trelegy ellipta ?? Albuterol PRN ?? [facility] pulmonology Fibromyalgia 12/08/2020 03/07/2023 Overview (03/07/2023): ?? Lyrica 75mg t.i.d ?? Followed by rheumatology Pain in left knee 07/18/2013 Pain in right hand 07/03/2013 Arthritis 06/06/2013 Candidiasis of vagina 05/22/2013 Routine gynecological examination 05/22/2013 Cellulitis and abscess of finger 02/20/2013 Depressive disorder 02/20/2013 Low back pain 12/17/2012 Osteoarthritis 12/17/2012 Patient encounter status 12/17/2012 Smoker 12/17/2012 Patient encounter status 12/17/2012 Immunizations Immunization Administration Dates Next Due Influenza (IM) Preservative [...] Visit [facility] [address] [place] [address] Nguyễn Baird MD [address] [facility] [address] [place] [address] Health Maintenance Due Date Last Done Comments [...] 01/31/2024, 01/02/2023, Additional history exists Pneumococcal Vaccine: Peds ( 0 to 5 Years) and At-Risk Patients (6 to 49 Years) Completed 11/17/2021 Influenza Vaccine Completed 12/20/2023, [...] mmol/L PVNMA 12/17/2019 us [facility] Conversion LAB [id number] LICITED RESULTS Final Result PVNMA from Last 3 Months or Most Recently Relevant to Health Maintenance Insurance [facility] ([id number]) [facility] ([id number])
--- OUTSIDE RECORDS SUMMARY | 2024-07-12 07:14 | XMS_ITS | Clinical Summary ---
Author Organization [employer] Address [address] [place] [address] [address] [place] [address] Care Team Providers Care Reconciliation Clerk Name Role Phone Ashanti August [facility] Primary Care Provider [phone] Jeff Villarreal INTERLOCKING AND SIGNAL MECHANIC Unavailable Unavailable Allergies Active Allergy Reactions Criticality [...] for wheezing. 18 g 1 023 Active Alcohol Swabs (Alcohol Prep) 70 % pads USE DIRECTED TWICE DAILY 023 Active omeprazole (PriLOSEC) [address] capsule TAKE 1 CAPSULE BY MOUTH TWICE DAILY IN THE MORNING AND AT BEDTIME 024 Active Senna-Time 8.6 MG tablet Take 1 tablet by mouth Once per day. 023 Active glucose blood (FREESTYLE LITE) test stripIndications :Type 2 diabetes mellitus with other specified complication, without long-term current use of insulin ([facility]) USE TO TEST BLOOD SUGAR TWICE DAILY 100 each Active TRUEplus Lancets 33G miscIndications: Type 2 diabetes mellitus with other specified complication, without long-term current use of insulin ([facility]) USE TO TEST BLOOD SUGAR TWICE DAILY 100 each 11 Active buPROPion XL (Wellbutrin XL) 150 MG 24 hr tablet Take 1 tablet (150 mg) by mouth in the morning. Do not crush, chew, or split. 90 tablet 3 Active DULoxetine (Cymbalta) [address] capsuleIndicatio ns:Depression, unspecified depression type Take 1 capsule (60 mg) by mouth Once per day. 90 capsule 3 Active traZODone (Desyrel) 100 MG tablet Take 2 tablets (200 mg) by mouth at bedtime. 180 tablet 3 Active D3 Super Strength 50 MCG (2000 UT) capsuleIndicatio ns:Vitamin D deficiency TAKE 2 CAPSULES BY MOUTH ONCE DAILY IN THE MORNING 180 capsule 3 Active glucose 4 g chewable tabletIndication s:Type 2 diabetes mellitus with stage 4 chronic kidney disease, without long-term current use of insulin ([facility]) Chew 4 tablets (16 g) if needed for low blood sugar. 50 tablet 12 2024 Active lidocaine (Lidoderm) 5 % patchIndications :Cervical radiculopathy Apply 1 patch topically Once per day. Remove & discard patch within 12 hours or as directed by MD. 30 patch 3 Active gabapentin (Neurontin) 100 MG capsuleIndicatio ns:Cervical radiculopathy Take 1 capsule three times daily for chronic. May self increase evening dose up to 3 capsules (300mg) if needed for symptom relief. 90 capsule 11 Active cloNIDine (Catapres) 0.1 MG tablet Take 0.1 mg by mouth 2 times daily. Active Docusate Sodium (DSS) 100 MG capsule Take 100 mg by mouth if needed in the morning and at bedtime (constipation). 2024 Active hydrOXYzine HCl (Atarax) 50 MG tablet Take 1 tablet by mouth Once per day. Active ipratropium-albu terol (Duo-Neb) 0.5-2.5 mg/3 mL nebulizer solution Inhale 3 mL every 4 (four) hours if needed. Active methocarbamol (Robaxin) 500 MG tablet Take 1 tablet by mouth 4 times daily. Active QUEtiapine (SEROquel) 100 MG tablet Take 1 tablet by mouth at bedtime. Active risperiDONE (RisperDAL) 0.5 MG tablet Take 1 tablet by mouth Once per day. Active atorvastatin (Lipitor) 80 MG tablet TAKE 1 TABLET BY MOUTH AT BEDTIME 90 tablet Active Vitamin E 45 MG (100 UNIT) capsule TAKE 1 CAPSULE BY MOUTH EVERY MORNING 90 capsule Active Dulaglutide (Trulicity) 1.5 MG/0.5ML solution auto-injectorInd ications:Type 2 diabetes mellitus with stage 3a chronic kidney disease, without long-term current use of insulin ([facility]) Inject 1.5 mg under the skin 1 (one) time per week. 2 mL 3 Active aspirin 81 MG chewable tabletIndication s:Type 2 diabetes mellitus with stage 3a chronic kidney disease, without long-term current use of insulin ([facility]) Chew 1 tablet (81 mg) Once per day. 30 tablet 11 025 2025 Active FeroSul 325 (65 Fe) MG tabletIndication s:Anemia due to chronic kidney disease, unspecified CKD stage TAKE 1 TABLET BY MOUTH EVERY MORNING 90 tablet 023 2024 Discontinued(M ed list cleanup (will not trigger notification to Pharmacy)) Linzess 145 MCG capsule Take 1 capsule by mouth once daily 023 2024 Discontinued(M ed list cleanup (will not trigger notification to Pharmacy)) Trelegy Ellipta 200-62.5-25 MCG/ACT aerosol powderIndication s:Chronic obstructive pulmonary disease, unspecified COPD type ([facility]) INHALE 1 PUFF BY MOUTH EVERY DAY AT THE SAME TIME 60 each 3 024 2024 Discontinued(M ed list cleanup (will not trigger notification to Pharmacy)) hydrOXYzine pamoate (Vistaril) 50 MG capsuleIndicatio ns:Depression, unspecified depression type TAKE 1 CAPSULE BY MOUTH EVERY 8 HOURS NEEDED FOR ANXIETY 90 capsule 5 024 2024 Discontinued(M ed list cleanup (will not trigger notification to Pharmacy)) QUEtiapine (SEROquel) 400 MG tablet TAKE 1/2 TABLET BY MOUTH EVERY MORNING and TAKE 1 AND 1/2 TABLETS BY MOUTH AT BEDTIME 60 tablet 3 024 2024 Discontinued(M ed list cleanup (will not trigger notification to Pharmacy)) dulaglutide (Trulicity) 0.75 MG/0.5ML solution pen-injectorIndi cations:Type 2 diabetes mellitus with stage 4 chronic kidney disease, without long-term current use of insulin ([facility]) Inject 0.75 mg under the skin 1 (one) time per week. 4 each 11 024 2024 Discontinued(M ed list cleanup (will not trigger notification to Pharmacy)) Continuous Glucose Sensor (FreeStyle Zeke 2 Sensor) miscIndications: Type 2 diabetes mellitus with stage 4 chronic kidney disease, without long-term current use of insulin (CMS/HCC),Hypogl ycemia Use as directed 2 each 3 2024 Discontinued(M ed list cleanup (will not trigger notification to Pharmacy)) Continuous Glucose Seat Cover Cutter (FreeStyle Zeke 2 Puryear) deviceIndication s:Type 2 diabetes mellitus with stage 4 chronic kidney disease, without long-term current use of insulin ([facility]),Hypogl ycemia Use as directed 1 each 2024 Discontinued(M ed list cleanup (will not trigger notification to Pharmacy)) atorvastatin (Lipitor) 80 MG tablet TAKE 1 TABLET BY MOUTH AT BEDTIME 90 tablet 2024 Discontinued Vitamin E 45 MG (100 UNIT) capsule Take 1 capsule by mouth Once per day. TAKE 1 CAPSULE BY MOUTH EVERY MORNING 90 capsule 024 2024 Discontinued Trulicity 0.75 MG/0.5ML solution auto-injector INJECT ONE PEN (=0.75MG) SUBCUTANEOUSLY ONCE A WEEK DIRECTED 025 2024 Discontinued oxyCODONE (Roxicodone) 5 MG immediate release tablet Take 5 mg by mouth every 6 (six) hours if needed (breakthrough pain). 025 2024 Discontinued Active Problems Problem Noted Date Diagnosed Date Preop examination 05/28/2024 Assessment & Plan (05/29/2024 9:34 AM EST): EKG 05/29/24, no change from prior of note mildly prolonged QT, likely attributed to current medication regimen. Pt risk is acceptable for cervical discectomy and fusion scheduled for 05/30/24. Cervical radiculopathy 05/28/2024 Chronic obstructive pulmonary disease 01/31/2024 Overview (01/31/2024): Theophylline added to regimen. Continue trelegy. Continue continuous 2l O2.Has lung CT screening pending [facility] Lam Assessment & Plan (05/29/2024 9:29 AM EST): Stable, prn supplemental o2. Witnessed seizure-like activity 08/18/2023 Major depressive disorder, [...] and drug-disease interactions. This provider has consulted [facility] clinical pharmacist regarding medication safety. Patient had EKG at ED on 2023 which was normal. She will F/U with therapist at [facility] and has discussed the possibility of referral to their prescriber when this provider leaves the practice. However, since this provider will be retiring, patient will be referred to new psychiatric prescriber from [facility], contracted with [facility]. Reviewed with patient that new provider will be outside the [facility] organization and patient gives verbal consent to share information with provider. Any issues or concerns contact [facility]. All her questions were answered and [...] q8 h prn anxiety. This provider consulted [facility] clinical pharmacist regarding medication safety. Patient had EKG at ED on 2023 which was normal. Provider will also consult patient's PCP about possibly changing her Atorvastatin 80 mg to alternative lipid med, as Atorvastatin can be associated with nightmares. She has started with new therapist at [facility] and has discussed the possibility of referral [...] She has started with new therapist at [facility] and has discussed the possibility of referral [...] 2019-NIL HPV neg-->repeat 2024 C-scope: Followed by [facility] BMD: Routine age 66 Memory impairment [...] nephrology ?? Avoid NSAID's and maintain hydration Assessment & Plan (05/29/2024 9:30 AM EST): Hx of, recent labs: Lab Results Component Value Date GLUCOSE 113 02/16/2024 NA 138 02/16/2024 K 3.4 02/16/2024 CO2 28 02/16/2024 CL 102 02/16/2024 BUN 9 02/16/2024 CREATININE 0.89 02/16/2024 Cirrhosis 10/25/2022 Overview (06/24/2024): Early REAL cirrhosis Followed by [facility] GI follow up 04/05/24. EGD showed gastritis and changes suggestive of esophageal motility disorder. Colonoscopy showed moderate diverticulosis in the entire colon and hemorrhoids and no polyps . 09/2019 A gastric emptying study was normal. Repeat EGD and colonoscopy 10/2025 Dysphagia, pharyngoesophageal phase 10/25/2022 Overview (05/15/2023): 07/21 EGD showed gastritis and changes suggestive of esophageal motility disorder Colonoscopy showed moderate diverticulosis in the entire colon and hemorrhoids and no polyps 09/2019 A gastric emptying study was normal. Frequent falls 10/25/2022 Hyperkalemia 10/25/2022 Overview (05/15/2023): ?? Lisinopril discontinued 04/2022 Lumbar radiculopathy 10/25/2022 Overview (10/28/2022): ?? S/p multiple spinal surgeries through [facility] 09/2021 for cyst removal ?? Followed by [facility] pain mngmt NIURKA (obstructive sleep apnea) 10/25/2022 Assessment & Plan (05/29/2024 9:29 AM EST): Resolved, in care with pulmonary, Supplemental oxygen prn at night Former smoker Pulmonary nodules 10/25/2022 Supplemental oxygen dependent 10/25/2022 Weak urinary stream 10/25/2022 Overview (10/28/2022): ?? Followed by [facility] urology ?? [facility] Tremor of both hands [...] LVEF 60-65% and mild diastolic dysfunction 03/08/21 Assessment & Plan (05/29/2024 9:30 AM EST): Stable, bp at goal. METS 4-8 No orthopnea, edema Type 2 diabetes mellitus wit h diabetic [...] post prandial goal: <180 Assessment & Plan (05/29/2024 9:31 AM EST): Well controlled, no hypoglycemic episodes. Assessment & Plan (05/15/2023 4:53 PM EST): [...] 01/31/2024 Overview (10/28/2022): ?? S/p emergency surgery [place] 11/2021 ?? Now followed by [facility] Vascular insufficiency of intestine 11/24/2021 01/31/2024 Renal function test abnormal 02/11/2021 10/28/2022 Chronic obstructive lung disease 01/17/2021 12/19/2023 Overview (05/15/2023): ?? Trelegy ellipta ?? Albuterol PRN ?? Supplemental 02 ?? 35 pack year smoking hx ?? [facility] pulmonology History of total knee arthroplasty 02/09/2017 10/28/2022 Depressive disorder 02/20/2013 10/29/19 Assessment & Plan (09/20/2022 12:01 PM EDT): She's doing well, no panic attacks at this time, seems to be dealing well with her son's addiction. FU closely with psycho pharacology clinic. Current smoker 12/17/2012 10/28/2022 Encounters Date Type Department Care Team Description 07/05/[address] [address] [facility] 06/25/2024 Telephone [facility] [place] [address] [facility] PCP's message 06/21/2024 1:30 PM EDT Office Visit [address] [address] [facility] Postoperative hematoma involving circulatory system following non-circulatory system procedure (Primary Dx); Memory impairment; Type 2 diabetes mellitus with stage 3a chronic kidney disease, without long-term current use of insulin ([facility]); Primary hypertension 06/21/2024 Travel 06/19/2024 Refill [facility] [address] [place], [place] [phone] Kirsten Page MD 06/14/2024 Patient Outreach [address] [address] [facility] Transition Of Care (Tcm) (HDF unscheduled) 06/14/[address] [address] [facility] Hospital Follow-up 06/09/2024 Orders Only GENERIC EXTERNAL DATA DEPARTMENT Provider, Generic External Data 06/04/2024 Orders Only GENERIC EXTERNAL DATA DEPARTMENT Provider, Generic External Data 05/29/[address] [address] Fátima Jimenes [place] Fax 05/28/2024 3:30 PM EST Office Visit [address] [address] Anu Romero NP Preop examination (Primary Dx); Cervical radiculopathy; NIURKA (obstructive sleep apnea); Supplemental oxygen dependent; Chronic obstructive pulmonary disease, unspecified COPD type (CMS/HCC); Aortic valve sclerosis; Congestive heart failure, unspecified HF chronicity, unspecified heart failure type (CMS/HCC); Primary hypertension; Cirrhosis of liver without ascites, unspecified hepatic cirrhosis type (CMS/HCC); Stage 3b chronic kidney disease (CMS/HCC); Type 2 diabetes mellitus with stage 3a chronic kidney disease, without long-term current use of insulin ([facility]); ELIZABET (acute kidney injury) ([facility]) 05/28/2024 Travel 05/23/2024 Telephone [facility] [address] [place] [address] Ashanti August FNP fyi 05/16/2024 Telephone [facility] [address] [place], [place] [phone] Ashanti August FNP appointment cx 05/10/2024 Telephone [facility] [address] [place] [address] Brynn Quiñonez, RN Care Coordination 04/29/2024 Orders Only [facility] External Provider, [facility] 04/25/2024 Telephone [facility] [address] [place] [address] Ashanti August FNP Requesting a call back 04/24/2024 10:00 AM EST Office Visit [facility] [address] [place] [address] Ashanti August FNP Type 2 diabetes mellitus with stage 4 chronic kidney disease, without long-term current use of insulin ([facility]) (Primary Dx); Overweight; Cervical radiculopathy; Dietary counseling; Exercise counseling 04/24/2024 Travel 04/23/2024 Telephone [facility] [address] [place], [place] [phone] Ashanti August FNP chart prep from Last 3 Months Immunizations Name Administration Dates Next Due Influenza Injectable Quadriv alant Preservative Free IIV4 MDCK 12/24/2021,01/10/2019 Influenza injectable quadriv alent IIV4 with preservative 02/09/2017,04/08/2016 Influenza injectable quadriv alent preservative free 01/02/2023,12/22/2020,11/27/2019,2017 Influenza, IIV3, injectable 12/22/2020,0 11/27/2019,03/22/2018,2016,04/08/2016,01/28/2015,12/17/2012 Influenza, seasonal, injecta ble, preservative free 12/20/2023,01/04/2017 Pfizer Covid-19 Vaccine 12+ 01/31/2024, Pfizer Covid-19 Vaccine 12+ Bivalent 02/28/2022 Pfizer Covid-19 Vaccine 12+ charla-sucrose (Tillman Cap) 09/08/2021 Pneumococcal Conjugate PCV 20 11/17/2021 RSV Bivalent 07/02/2024 Tdap 01/17/2019,11/05/2014 Zoster, Recombinant 02/23/2021,12/16/2020 Social History [...] Sign Reading Time Taken Comments Blood Pressure 138/88 06/21/2024 1:58 PM EDT Pulse 92 06/21/2024 1:22 PM EDT Temperature 36.4 ??C (97.5 ??F) 06/21/2024 1:22 PM ED T Respiratory Rate 16 06/21/2024 1:22 PM EDT Oxygen Saturation 96% 06/21/2024 1:22 PM EDT Inhaled Oxygen Concentration - - Weight 75.4 kg (166 lb 3.2 oz) 06/21/2024 1:22 P M EDT Height 160 cm (5' 3 ) 06/21/2024 1:22 PM EDT Body Mass Index 29.44 06/21/2024 1:22 PM EDT Plan of Treatment Upcoming Encounters Date Type Department Care Team (Late st Contact Info) Description 09/20/2024 1:15 PM EDT Office Visit [facility] [address] [place] [address] [facility] [address] [place] [address] Health Maintenance Due Date Last Done Comments CT Colonography 1960 FIT DNA/Cologuard 1960 FIT 1960 FOBT 1960 Sigmoidoscopy 1960 Lipid Panel 05/08/2024 05/08/2023, 07/2 08/2022, 03/02/2022, Additional history exists Cervical Cancer Screening 05/16/2024 HPV/Cotest 05/16/2024 05/16/2019, 05/11/2016 Pap Smear 05/16/2024 Diabetes: Foot Exam 08/13/2024 08/14/2023, 08/14/2023, 08/14/2023, Additional history exists Alcohol/Substance Use Screening 12/19/2024 12/20/2023 Diabetes: Hemoglobin A1C 12/22/2024 025, 04/24/2024, 01/31/2024, Additional history exists SDOH Screening 04/12/2025 04/12/2024 Depression Screening 04/24/2025 04/24/2024, 04/24/19 25 Colonoscopy 05/04/2025 07/30/2019 Colorectal Cancer Screening 05/04/2025 Eye Exam 05/11/2025 05/11/2023, 02/0 11/2023, 05/11/2023, Additional history exists Tobacco Screening 06/24/2025 06/24/2024 Mammogram 08/31/2025 09/01/2023, 08/20/2021 DTaP/Tdap/Td Vaccines (3 - Td or Tdap) 01/17/2029 01/17/2019, 11/05/2014 Zoster Vaccines Completed 02/23/2021, 12/16/2020 HIV Screening Completed 09/08/2021 Hepatitis C Screening Completed 09/08/2021 Pneumococcal Vaccine: 50+ Years Completed 11/17/2021 Influenza Vaccine Completed 12/20/2023, , 12/24/2021, Additional history exists COVID-19 Vaccine Completed 01/31/2024, , 02/28/2022, Additional history exists RSV Patients and Patients Aged 60 years or older Completed 07/02/2024 HIB Vaccines Aged Out No longer eligi [...] Diagnosis Comments POCT GLYCATED HEMOGLOBIN, TOTAL Routine 06/21/2024 1:43 PM EDT Type 2 diabetes mellitus with stage 3a chronic kidney disease, without long-term current use of insulin ([facility]) POCT GLUCOSE Routine 06/21/2024 1:43 PM EDT Type 2 diabetes mellitus with stage 3a chronic kidney disease, without long-term current use of insulin ([facility]) TYPE AND SCREEN Routine 06/09/2024 3:16 PM EDT PROTHROMBIN TIME-INR Routine 06/09/2024 3:[address] SOFT TISSUE NECK W CONTRAST Routine 06/09/2024 1:[address] CHEST W CONTRAST Routine 06/09/2024 1 :49 PM EDT LACTIC ACID Routine 06/09/2024 12:36 PM EDT BLOOD CULTURE (SECOND) Routine 12:36 PM EDT BLOOD CULTURE (FIRST) Routine 06/09/2024 12:36 PM EDT C-REACTIVE PROTEIN Routine 06/09/2024 11 :42 AM EDT SED RATE BY MODIFIED WESTERGREN Routine 06/09/2024 11:42 AM EDT HIGH SENSITIVITY TROPONIN I Routine 06/09/2024 11:42 AM EDT SLIDE REVIEW Routine 06/09/2024 11:42 AM EDT CBC WITH AUTO DIFFERENTIAL Routine 06/09/2024 11:42 AM EDT COMPREHENSIVE METABOLIC PANEL Routine 06/09/2024 11:42 AM EDT B TYPE NATRIURETIC PEPTIDE (BNP) Routine 06/09/2024 11:42 AM EDT APTT Routine 06/09/2024 11:42 AM EDT PROTHROMBIN TIME-INR Routine 06/09/2024 11:42 AM EDT SARS COV2/INFLUENZA A/B AND RSV RNA QL NAAT Routine 06/09/2024 11:42 AM EDT FL GUIDANCE IN OR Routine 06/04/2024 7:3 9 AM EST GLUCOSE, WHOLE BLOOD Routine 06/04/2024 6:48 AM EST ECG 12-LEAD Routine 05/29/2024 9:28 AM EST Preop examination XR CERVICAL SPINE 4V Routine 04/29/2024 2:13 [...] Maintenance Results * (ABNORMAL) POCT HGB A1C (06/21/2024 1:43 PM EDT) Only the most recent of2 resultswithin the time period is included. Hemoglobin A1C 6.9(A) 4.0 - 6.0 % Blood 06/21/2024 1:43 PM EDT [facility] INTERLOCKING AND SIGNAL MECHANIC POINT OF CARE TEST ENTER/EDIT ORDERABLES Final Result * (ABNORMAL) POCT Glucose (06/21/2024 1:43 PM EDT) Only the most recent of2 resultswithin the time period is included. Glucose Blood, POC 232(A) 60 - 200 mg/dL Blood Capillary blood specimen / Unknown 06/21/2024 1:43 PM EDT [facility] POINT OF CARE TEST ENTER/EDIT ORDERABLES Final Result * (ABNORMAL) Prothrombin Time-INR (06/09/2024 3:16 PM EDT) Only the most recent of2 resultswithin the time period is included. Prothrombin Time 15.6(H) 10.9 - 12.4 SEC [facility] INTERNATIONAL NORM RATIO 1.3(H) 0.9 - 1.1 [facility] Comment:INTERNATIONAL NORMAL IZED RATIO (INR) REFERENCE RANGES Reference RangeFor patients not on anticoagulant therapy: 0.9 - 1.1INR ranges for oral anticoagulanttherapy:For prevention and treatment of venous thrombosis and pulmonary embolism: 2.0 - 3.0For acute myocardial infarction with aspirin therapy: 2.0 - 3.0For acute myocardial infarction without aspirin therapy: 3.0 - 4.0For patients with mechanical prosthetic heart valves: 2.5 - 3.5 06/09/2024 3:16 PM EDT 06/09/2024 3:22 PM EDT us Generic External Data Provider LAB BLOOD ORDERAB LES Final Result Performing Organization Address [facility] Co de Phone Number [facility] [address] [place] [address] [phone] * Type and screen (06/09/2024 3:16 PM EDT) Blood Type OP [facility] Antibody Screen NEGATIVE [facility] 06/09/2024 3:16 PM EDT 06/09/2024 3:23 PM EDT Generic External Data Provider LAB BLOOD BANK TE ST ORDERABLES Final Result Performing Organization Address [facility] de Phone Number [facility] [address] [place] [address] [phone] * CT Soft Tissue Neck w/ Contrast (06/09/2024 1:53 PM EDT) Anatomical Region Laterality Modality Head, Neck Computed Tomogra phy 06/09/2024 1:53 PM EDT Narrative 06/09/2024 1:54 PM EDT ? [facility] ?[address] ?[place] [address] ? CT Scan Report ? Signed ? Patient: Salmeron,Sharri ?MR#: [id number] ?? [id number] ? : 1960 ?Acct:[id number] ? Age/Sex: 63 / F ?ADM Date: 06/09/24 ? Loc: HO.ED ? Attending Dr: ? Ordering Physician: Jessica Gore ?? Date of Service: 06/09/24 ?? Procedure(s): CT soft tissue neck w IV con ?? Accession Number(s): [id number] ? cc: Jessica Gore; Ashanti August INTERLOCKING AND SIGNAL MECHANIC ? Report Number: ?? [id number]: Total DLP = ??461.00 mGy-cm ? CLINICAL HISTORY: post op neck pain ? CT soft tissue neck with contrast ? Comparison: None ? Findings: ?? The visualized intracranial contents are unremarkable. ?? No prevertebral fluid. Epiglottis is within normal limits. Pharyngeal ?? mucosal space and parapharyngeal fat are normal. ?? Salivary glands are unremarkable. No sialoliths. ?? No suspicious thyroid nodules. ? No consolidation at the lung apices. ?? No acute fracture or dislocation. Status post anterior metallic and ?? interbody fusion at C7-T1. Prior anterior metallic and interbody fusion at ?? C4-C5. No evidence of hardware failure. ? There is a posterior mediastinal fluid collection measuring up to 3.4 cm ?? in diameter with mass effect on the trachea and esophagus. This could ?? represent a simple postoperative collection, hematoma or abscess. Mild ?? extension of fluid into the bilateral carotid spaces. No extravasation of ?? contrast to suggest active bleeding. ? IMPRESSION: ?? There is a posterior mediastinal fluid collection measuring up to 3.4 cm ?? in diameter with mass effect on the trachea and esophagus. This could ?? represent a simple postoperative collection, hematoma or abscess. ? This document has been electronically signed by: Anabelle Hurst MD on ?? 06/09/2024 13:53:46 ? Dictated By: ?Anabelle Hurst MD ? Signed By: ?<Electronically signed by Anabelle Hurst MD in OV> ? 06/09/24 1354 ? DD/ 1353 ? TD/TT: 06/09/24 1353 ? Corporation Lawyer: ? Procedure Note Mickeyjaquan, Image - 06/09/[address] [place] [address] [address] Scan Report Signed Patient: Allyson Salmeron#: [id number] : 2Acct:[id number] Age/Sex: 63 / FADM Date: 06/09/24 Loc: HO.ED Attending Dr: Ordering Physician: Jessica Gore Date of Service: 06/09/24 Procedure(s): CT soft tissue neck w IV con Accession Number(s): [id number] cc: Jessica Gore; Ashanti August INTERLOCKING AND SIGNAL MECHANIC Report Number: [id number]: Total DLP = 461.00 mGy-cm CLINICAL HISTORY: post op neck pain CT soft tissue neck with contrast Comparison: None Findings: The visualized intracranial contents are unremarkable. No prevertebral fluid. Epiglottis is within normal limits. Pharyngeal mucosal space and parapharyngeal fat are normal. Salivary glands are unremarkable. No sialoliths. No suspicious thyroid nodules. No consolidation at the lung apices. No acute fracture or dislocation. Status post anterior metallic and interbody fusion at C7-T1. Prior anterior metallic and interbody fusion at C4-C5. No evidence of hardware failure. There is a posterior mediastinal fluid collection measuring up to 3.4 cm in diameter with mass effect on the trachea and esophagus. This could represent a simple postoperative collection, hematoma or abscess. Mild extension of fluid into the bilateral carotid spaces. No extravasation of contrast to suggest active bleeding. IMPRESSION: There is a posterior mediastinal fluid collection measuring up to 3.4 cm in diameter with mass effect on the trachea and esophagus. This could represent a simple postoperative collection, hematoma or abscess. This document has been electronically signed by: Anabelle Hurst MD on 06/09/2024 13:53:46 Dictated By: Anabelle Hurst MD Signed By: <Electronically signed by Anabelle Hurst MD in OV> 06/09/24 1354 DD/ 1353 TD/TT: 06/09/24 1353 Corporation Lawyer: [facility] External Provider IMG CT PROCEDURES Edited Result - Final * CT Chest w/ Contrast (06/09/2024 1:49 PM EDT) Anatomical Region Laterality Modality Body, Chest Computed Tomogra phy 06/09/2024 1:49 PM EDT Narrative 06/09/2024 1:51 PM EDT ? [facility] ?[address] ?[place] [address] ? CT Scan Report ? Signed with Addenda ? Patient: Salmeron,Sharri ?MR#: [id number] ?? 703 ? : 1960 ?Acct:[id number] ? Age/Sex: 63 / F ?ADM Date: 03/09/25 ? Loc: HO.ED ? Attending Dr: ? Ordering Physician: Jessica Gore ?? Date of Service: 06/09/24 ?? Procedure(s): CT chest w IV con ?? Accession Number(s): [id number] ? cc: Jessica Gore; Ashanti August INTERLOCKING AND SIGNAL MECHANIC ? Report Number: ?? [id number]: Total DLP = ??462.93 mGy-cm ?ADDENDUM ?? This document has been electronically signed by: Anabelle Hurst MD on ?? 06/09/2024 13:49:23 ? ADDENDUM: ?? This report was discussed with DHALIA Wolfe on Jun 09, 2024 ?? 13:52:00 EDT. ? This document has been electronically signed by: Tasia Alexandra on ?? 06/09/2024 13:53:05 ? Addendum Dictated By: ?Anabelle Hurst MD ? Addendum Signed By: ? <Electronically signed by Anabelle Hurst MD in OV> ? 06/09/24 1354 ?? Addendum Cosigned By: ? DD/ /26/1348 ? TD/TT: 06/09/2412/26/1352 ? CLINICAL HISTORY: sob, neck pain sp surgery ? CT chest with contrast ? Comparison: CT/SR - CT CHEST WO IV CON - 12/22/22 07:32 EDT ? Findings: ?? The heart size is normal. ?? There is a large posterior mediastinal mass, Most likely a complex fluid ?? collection, extending from the neck the diaphragm with mass effect on the ?? trachea and esophagus. This measures up to 4 x 3 cm in transverse ?? dimension. Mild associated narrowing of the trachea. ? No consolidation or pleural effusion. ? The visualized upper abdomen is unremarkable. ?? Status post anterior metallic fusion at C7-T1. Appropriate alignment. No ?? evidence of hardware failure. ?? There is a moderate compression fracture at T8 with interval worsening, ?? likely chronic. ? IMPRESSION: ?? There is a large and extensive posterior mediastinal mass, most likely a ?? complex fluid collection. This could represent a simple postoperative ?? collection, hematoma or abscess. There is associated mass effect on the ?? trachea and esophagus. ? This document has been electronically signed by: Anabelle Hurst MD on ?? 06/09/2024 13:49:23 ? Dictated By: ?Anabelle Hurst MD ? Signed By: ?<Electronically signed by Anabelle Hurst MD in OV> ? 06/09/24 1351 ? DD/ 1349 ? TD/TT: 06/09/24 1349 ? Corporation Lawyer: ? Procedure Note Sheyla, Image - 06/09/2024 [facility] [address] [place] [address] CT Scan Report Signed with Addenda Patient: Rusty SalmeronBi#: [id number] 703 : 1960cct:[id number] Age/Sex: 63 / FADM Date: 06/09/24 Loc: HO.ED Attending Dr: Ordering Physician: Jessica Gore Date of Service: 06/09/24 Procedure(s): CT chest w IV con Accession Number(s): [id number] cc: Jessica Gore; [facility] Report Number: [id number]: Total DLP = 462.93 mGy-cm ADDENDUM This document has been electronically signed by: Anabelle Hurst MD on 06/09/2024 13:49:23 ADDENDUM: This report was discussed with DAHLIA Wolfe on Jun 09, 2024 13:52:00 EDT. This document has been electronically signed by: Tasia Alexandra on 06/09/2024 13:53:05 Addendum Dictated By: Anabelle Hurst MD Addendum Signed By: <Electronically signed by MD Norman in OV> 06/09/24 1354 Addendum Cosigned By: DD/ /26/1348 TD/TT: 06/09/2412/26/1352 CLINICAL HISTORY: sob, neck pain sp surgery CT chest with contrast Comparison: CT/SR - CT CHEST WO IV CON - 12/22/22 07:32 EDT Findings: The heart size is normal. There is a large posterior mediastinal mass, Most likely a complex fluid collection, extending from the neck the diaphragm with mass effect on the trachea and esophagus. This measures up to 4 x 3 cm in transverse dimension. Mild associated narrowing of the trachea. No consolidation or pleural effusion. The visualized upper abdomen is unremarkable. Status post anterior metallic fusion at C7-T1. Appropriate alignment. No evidence of hardware failure. There is a moderate compression fracture at T8 with interval worsening, likely chronic. IMPRESSION: There is a large and extensive posterior mediastinal mass, most likely a complex fluid collection. This could represent a simple postoperative collection, hematoma or abscess. There is associated mass effect on the trachea and esophagus. This document has been electronically signed by: Anabelle Hurst MD on 06/09/2024 13:49:23 Dictated By: Anabelle Hurst MD Signed By: <Electronically signed by Anabelle Hurst MD in OV> 06/09/24 1351 DD/ 1349 TD/TT: 06/09/24 1349 Corporation Lawyer: [facility] External Provider IMG CT PROCEDURES Edited Result - Final * Blood Culture (First) (06/09/2024 12:36 PM EDT) Blood Venous blood specimen / Unknown 06/09/2024 12:36 PM EDT 06/09/2024 12:41 PM EDT Comment:Blood Narrative [facility] - 06/14/2024 2:41 PM EDT Blood Culture (First) No growth after 5 days. Specimen Source: Blood Generic External Data Provider LAB MICROBIOLOGY - GENERAL ORDERABLES Final Result Performing Organization Address [facility] de Phone Number [facility] [address] [place] [address] [phone] * Blood Culture (Second) (06/09/2024 12:36 PM EDT) Blood Venous blood specimen / Unknown 06/09/2024 12:36 PM EDT 06/09/2024 12:41 PM EDT Comment:Blood Narrative [facility] - 06/14/2024 2:41 PM EDT Blood Culture (Second) No growth after 5 days. Specimen Source: Blood Generic External Data Provider LAB MICROBIOLOGY - GENERAL ORDERABLES Final Result Performing Organization Address [facility] Co de Phone Number [facility] [address] [place] [address] [phone] * Lactic Acid (06/09/2024 12:36 PM EDT) Lactic Acid 1.4 0.5 - 2.0 mmol/L [facility] 06/09/2024 12:3 6 PM EDT 06/09/2024 12:41 PM EDT Generic External Data Provider LAB BLOOD ORDERAB LES Final Result Performing Organization Address [facility] Co de Phone Number [facility] [address] [place] [address] [phone] * Slide Review (06/09/2024 11:42 AM EDT) Pathologist [facility] Slide Review VERIFIED [facility] 06/09/2024 11:4 2 AM EDT 06/09/2024 11:48 AM EDT Generic External Data Provider LAB BLOOD ORDERAB LES Final Result Performing Organization Address [facility] de Phone Number [facility] [address] [place] [address] [phone] * High Sensitivity Troponin I (06/09/2024 11:42 AM EDT) [facility] TROPONIN I HIGH SENSITIVITY <2.7 <3.5 - 17.0 ng/L [facility] Comment:The Dawson high sens itivity Troponin-I results should beused in conjunction with other diagnostic information suchas ECG, clinical observations and information, and patientsymptoms to aid in the diagnosis of ME. 06/09/2024 11:4 2 AM EDT 06/09/2024 11:48 AM EDT Generic External Data Provider LAB BLOOD ORDERAB LES Final Result Performing Organization Address [facility] Co de Phone Number [facility] [address] [place] [address] [phone] * SARS-CoV-2 RNA, Influenza A/B, and RSV RNA, Ql NAAT (06/09/2024 11:42 AM EDT) [facility] Influenza A PCR NEGATIVE Negative [facility] Influenza B PCR NEGATIVE Negative [facility] Resp Syncy Virus RNA Qual PCR NEGATIVE Negative [facility] SARS COV2 PCR NEGATIVE Negative [facility] Comment:All test results mus t be correlated with clinical findings.Negative results do not preclude SARS-CoV2, influenza Avirus, influenza B virus and/or RSV infectionand should not be used as the sole basis for treatment orother patient management decisions. Negative results must becombined with clinical observations, patient history, andepidemiological information.This test has not been evaluated for monitoring treatment ofinfection.This test has been authorized by the FDA under an EmergencyUse Authorization (EUA) for use by authorized laboratories.Testing performed on the [employer] GeneXpert utilizingreal-time RT-PCR.All SARS CoV2 and positive influenza A/B results arereported to [facility]. 06/09/2024 11:4 2 AM EDT 06/09/2024 11:47 AM EDT us Generic External Data Provider LAB MICROBIOLOGY - GENERAL ORDERABLES Final Result [facility] [address] [place] [address] [phone] * (ABNORMAL) CBC auto differential (06/09/2024 11:42 AM EDT) White Blood Count 14.7(H) 4.8 - 10.8 X10*3/uL [facility] Red Blood Count 5.03 4.20 - 5.50 X10*6/uL [facility] Hemoglobin 14.2 12.0 - 16.0 g/dl [facility] Hematocrit 43.8 37.0 - 47.0 % [facility] Mean Corpuscular Volume 87.1 80.0 - 98.0 fL [facility] Mean Corpuscular Hemoglobin 28.2 27.0 - 33.0 pg [facility] Mean Corpuscular HGB Conc 32.4 31.0 - 35.0 g/dl [facility] Red Cell Distribution Width 16.3(H) 11.0 - 16.0 % [facility] Platelet Count 275 160 - 400 X10*3/uL [facility] Mean Platelet Volume 9.4 9.4 - 12.3 fL [facility] Neutrophils Percent Auto 68.4 45 - 73 % [facility] Imm Gran Pct Auto 0.7(H) 0.0 - 0.4 % [facility] Lymphocytes Percent Auto 19.0(L) 20 - 40 % [facility] Monocytes Percent Auto 11.3(H) 2 - 11 % [facility] Eosinophils Percent Auto 0.1 0 - 4 % [facility] Basophils Percent Auto 0.5 0 - 2 % [facility] NRBC Pct Auto 0.0 0.0 - 0.2 /100WBC [facility] Neutrophils Absolute Auto 10.0(H) 2.0 - 8.3 x10*3/uL [facility] Imm Gran Abs Auto 0.10(H) 0.00 - 0.03 X10*3/uL [facility] Lymphocytes Absolute Auto 2.8 1.2 - 4.9 X10*3/uL [facility] Monocytes Absolute Auto 1.7(H) 0.1 - 1.2 X10*3/uL [facility] Eosinophils Absolute Auto 0.0 0.0 - 0.4 X10*3/uL [facility] Basophils Absolute Auto 0.1 0.0 - 0.2 X10*3/uL [facility] NRBC Abs Auto 0.000 0.0 - 0.012 X10*3/uL [facility] 06/09/2024 11:4 2 AM EDT 06/09/2024 11:48 AM EDT us Generic External Data Provider LAB BLOOD ORDERAB LES Edited Result - Final [facility] [address] [place] [phone] * Partial Thromboplastin Time, Activated (APTT) (06/09/2024 11:42 AM EDT) Partial Thromboplastin Time 34.1 26.0 - 36.8 SEC [facility] Comment:For information rega rding the monitoring of direct thrombininhibitors, please refer to Pharmacy. 06/09/2024 11:4 2 AM EDT 06/09/2024 11:48 AM EDT us Generic External Data Provider LAB BLOOD ORDERAB LES Final Result Performing Organization Address [facility] Co de Phone Number [facility] [address] [place] [address] [phone] * (ABNORMAL) Sed Rate by Modified Westergren (06/09/2024 11:42 AM EDT) Erythrocyte Sedimentation Rate 59(H) 0 - 20 MM/HR [facility] Comment:Patients with polycy themia and many hemoglobin abnormalitiesmay have depressed sed rates whereas patients with anemiamay have elevated sed rates. 06/09/2024 11:4 2 AM EDT 06/09/2024 12:20 PM EDT us Generic External Data Provider LAB BLOOD ORDERAB LES Final Result Performing Organization Address [facility] Co de Phone Number [facility] [address] [place] [address] [phone] * (ABNORMAL) C-reactive Protein (06/09/2024 11:42 AM EDT) Pathologist [facility] C Reactive Protein 8.97(H) < or = 0.50 mg/dL [facility] 06/09/2024 11:4 2 AM EDT 06/09/2024 11:48 AM EDT us Generic External Data Provider LAB BLOOD ORDERAB LES Final Result Performing Organization Address [facility] Co de Phone Number [facility] [address] [place] [address] [phone] * B Type Natriuretic Peptide (BNP) (06/09/2024 11:42 AM EDT) B Type Natriuretic Peptide <10 <100 pg/mL [facility] Comment:For those patients w ho are being treated with Natrecor(nesiritide, recombinant BNP), BNP testing should beperformed at least two hours post treatment in order toensure that only endogenous levels of BNP are detected. 06/09/2024 11:4 2 AM EDT 06/09/2024 11:48 AM EDT us Generic External Data Provider LAB BLOOD ORDERAB LES Final Result [facility] [address] [place] [phone] * (ABNORMAL) Comprehensive Metabolic Panel (06/09/2024 11:42 AM EDT) Sodium 141 135 - 145 mmol/L [facility] Potassium 4.0 3.3 - 5.1 mmol/L [facility] Chloride 101 96 - 108 mmol/L [facility] Carbon Dioxide 25 22 - 29 mmol/L [facility] Anion Gap 19 12 - 20 [facility] Urea Nitrogen (BUN) 19(H) 9 - 16 mg/dL [facility] Creatinine, Serum 0.81 0.5 - 1.4 mg/dL [facility] Creatinine Clr Calc Pharmacy 69.4 [facility] Comment:Provided height and weight: 160.02 cm,73.936 kg.eGFR (calculated from the MDRD study equation) and eCrCl(calculated from the Cockcroft-Gault equation) are based ondifferent parameters and may not yield comparable results.If eCrCl result is absurd, please check patient'sheight/weight. Estimated Glomerular Filt Rate >60 [facility] Comment:Chronic Kidney Disea se: Estimated GFR < 60 mL/min/1.17p9Rnroeu Kidney Disease: Estimated GFR < 15 mL/min/1.73m2 Glucose 148(H) 60 - 115 mg/dL [facility] Calcium 10.5(H) 8.4 - 10.2 mg/dL [facility] Bilirubin, Total 2.8(H) 0.0 - 1.0 mg/dL [facility] Comment:Slight Icterus. Aspartate Amino Transferase 39(H) 5 - 31 U/L [facility] Alanine Aminotransferase 31 0 - 31 U/L [facility] Total Protein 9.3(H) 6.5 - 8.0 g/dL [facility] Albumin Level 4.5 3.5 - 5.0 g/dL [facility] Alkaline Phosphatase 216(H) 39 - 117 U/L [facility] 06/09/2024 11:4 2 AM EDT 06/09/2024 11:48 AM EDT us Generic External Data Provider LAB BLOOD ORDERAB LES Final Result [facility] [address] [place] [phone] * FL Guidance in OR (06/04/2024 7:39 AM EST) Anatomical Region Laterality Modality X-Ray Angiograph y 06/04/2024 7:39 AM EST Narrative 06/07/2024 9:06 AM EST ? [facility] ?[address] ?[place] [address] ? Fluoroscopy Report ? Signed ? Patient: Salmeron,Sharri ?MR#: [id number] ?? 703 ? : 1960 ?Acct:[id number] ? Age/Sex: 63 / F ?ADM Date: 06/04/24 ? Loc: HO.SSS ? Attending Dr: Regulo Dsouza MD, PhD ? Ordering Physician: Regulo Dsouza MD, PhD ?? Date of Service: 06/04/24 ?? Procedure(s): FL guidance in OR ?? Accession Number(s): [id number] ? cc: Regulo Dsouza MD, PhD; Ashanti August INTERLOCKING AND SIGNAL MECHANIC ? EXAMINATION: ??FL GUIDANCE ONLY ? HISTORY: C6-C7, C7-T1 ACDF ? COMPARISON: ?? Correlation is made with plain films of the cervical spine dated ?? 04/29/2024. ? TECHNIQUE: ?? Fluoroscopy time: 11.8 seconds. ?? Cumulative Dose: 2.9946 mGy. ?? DAP: 0.6778 mGym2 ?? Images: 2. ? FINDINGS: ?? Images demonstrate new anterior cervical disc fusion at C7-T1 and prior ?? anterior cervical disc fusion at C4-5. ? FL/FL guidance in OR ?? IMPRESSION: ?? Fluoroscopy during procedure. Please see procedure report for ?? additional information. ? Electronically signed by: ??Neville Waters MD ??06/07/2024 09:02 AM EST ? Dictated By: ?Neville Waters MD ? Signed By: ?<Electronically signed by Neville Waters MD in OV> ?06/07/24 09 ? DD/ ? TD/TT: 06/04/24 0938 ? Corporation Lawyer: ? Procedure Note Sheyla, Image - 06/07/2024 [place] [address] Fluoroscopy Report Signed Patient: Allyson Salmeron#: [id number] 703 : 1960cct:[id number] Age/Sex: 63 / FADM Date: 06/04/24 Loc: HO[facility] Attending Dr: Regulo Dsouza MD, PhD Ordering Physician: Regulo Dsouza MD, PhD Date of Service: 06/04/24 Procedure(s): FL guidance in OR Accession Number(s): [id number] cc: Regulo Dsouza MD, PhD; [facility] EXAMINATION: FL GUIDANCE ONLY HISTORY: C6-C7, C7-T1 ACDF COMPARISON: Correlation is made with plain films of the cervical spine dated 04/29/2024. TECHNIQUE: Fluoroscopy time: 11.8 seconds. Cumulative Dose: 2.9946 mGy. DAP: 0.6778 mGym2 Images: 2. FINDINGS: Images demonstrate new anterior cervical disc fusion at C7-T1 and prior anterior cervical disc fusion at C4-5. FL/FL guidance in OR IMPRESSION: Fluoroscopy during procedure. Please see procedure report for additional information. Electronically signed by: Neville Waters MD 06/07/2024 09:02 AM EST Dictated By: Neville Waters MD Signed By: <Electronically signed by Neville Waters MD in OV> 06/07/24901 DD/ 8 TD/TT: 06/04/24 09 Corporation Lawyer: [facility] External Provider IMG IR PROCEDURES Final Result * (ABNORMAL) Glucose, Whole Blood (06/04/2024 6:48 AM EST) Glucose, Whole Blood 154(H) 60 - 115 mg/dL [facility] Comment:METER #: [id number] 06/04/2024 6:4 8 AM EST 06/04/2024 6:51 AM EST Generic External Data Provider LAB BLOOD ORDERAB LES Final Result Performing Organization Address City/State/[facility] Co de Phone Number [facility] [address] [place] [address] [phone] * ECG 12 lead (05/29/2024 9:28 AM EST) Narrative Anu Romero NP - 05/29/2024 9:28 AM EST 68 bpm Qt/qtc 456/[address] elevation Anu Romero NP ECG ORDERABLES Final Result * XR CERVICAL SPINE 4V (04/29/2024 2:13 PM EST) Anatomical Region Laterality Modality Abdomen Radiographic Imranda ging 04/29/2024 2:13 PM EST Narrative 04/30/2024 8:46 AM EST ? [facility] ? [address] ?[place] [address] ?XRay Report ? Signed ? Patient: Salmeron,Sharri ?MR#: [id number] ?? 703 ? : 1960 ?Acct:[id number] ? Age/Sex: 63 / F ?ADM Date: 01/27/25 ? Loc: HO.HOSX ? Attending Dr: Serge VILLAGOMEZ ? Ordering Physician: Serge Mckeon ?? Date of Service: 04/29/24 ?? Procedure(s): XR cervical spine 4V ?? Accession Number(s): [id number] ? cc: Serge Mckeon; [facility] INTERLOCKING AND SIGNAL MECHANIC ? EXAMINATION: ?? XR CERVICAL SPINE ? [...] DD/ 1413 ? TD/TT: 04/29/24 1415 ? Corporation Lawyer: MSM ? Procedure Note Sheyla, Image - 04/30/2024 [facility] [address] [place] [address] [address] [place] [address] XRay Report Signed Patient: Allyson Salmeron#: [id number] 703 : 2Acct:[id number] Age/Sex: 63 / FADM Date: 04/29/24 Loc: [facility] Attending Dr: Serge VILLAGOMEZ Ordering Physician: Serge Mckeon Date of Service: 04/29/24 Procedure(s): XR cervical spine 4V Accession Number(s): [id number] cc: Serge Mckeon; [facility] EXAMINATION: XR CERVICAL SPINE CLINICAL INFORMATION: M43.12 [...] 04/30/24 0843 DD/ 1413 TD/TT: 04/29/24 1415 Corporation Lawyer: [place] [facility] External Provider IMG XR PROCEDURES Final Result * BI Mammogram Screening Tomosynthesis Bilateral (09/01/2023 8:16 AM EDT) Anatomical Region Laterality Modality Breast Bilateral Mammography 09/01/2023 8:16 AM EDT Narrative 09/26/2023 4:37 PM EDT ? [facility] [place] [facility] ? [address] ?[place] [address] ? Mammography Report ? Signed ? Patient: Salmeron,Sharri ?MR#: [id number] ?? 703 ? : 1960 ?Acct:[id number] ? Age/Sex: 63 / F ?ADM Date: 09/01/23 ? Loc: HO.MAMMO ? Attending Dr: Ashanti August INTERLOCKING AND SIGNAL MECHANIC ? Ordering Physician: Ashanti August INTERLOCKING AND SIGNAL MECHANIC ?Results: 1Nega ?? tive ? Date of Service: 09/01/23 ?Follow Up: 1 Year From Orig ?? inal Mammogram ? Procedure(s): MM tomosynthesis screening BI ?? Accession Number(s): [id number] ? cc: Ashanti August INTERLOCKING AND SIGNAL MECHANIC ? EXAMINATION: ?? MM SCREENING DIGITAL BREAST [...] 1634 ? DD/ 0816 ? TD/TT: ? Corporation Lawyer: ? Procedure Note Donjanet, Gerson - 09/26/2023 [facility] [address] [place], [place] [address] Mammography Report Signed Patient: Allyson Salmeron#: [id number] 703 : 2Acct:[id number] Age/Sex: 63 / FADM Date: 09/01/23 Loc: HO.MAMMO Attending Dr: Ashanti August INTERLOCKING AND SIGNAL MECHANIC Ordering Physician: Ashanti August FNPResults: 1Nega tive Date of Service: 09/01/23Follow Up: 1 Year From Orig inal Mammogram Procedure(s): MM tomosynthesis screening BI Accession Number(s): [id number] cc: Ashanti August INTERLOCKING AND SIGNAL MECHANIC EXAMINATION: MM SCREENING DIGITAL BREAST TOMOSYNTHESIS, BILATERAL [...] in OV> 09/26/23 1634 DD/ 0816 TD/TT: Corporation Lawyer: [facility] IMG BI PROCEDURES Final Resul t * (ABNORMAL) Lipid Panel, Standard (05/08/2023 11:13 AM EST) Triglycerides 274(H) <150 mg/dL [facility] Comment:Desirable Triglyceri de: less than 150 mg/dLBorderline High Triglyceride 150-199 mg/dLHigh Triglyceride: 200-499 mg/dLVery High Triglyceride: greater than or equal to 5OO mg/dL Cholesterol 230(H) <200 mg/dL [facility] Comment:Desirable Cholestero l: less than 200 mg/dLBorderline High Cholesterol: 200-239 mg/dLHigh Cholesterol: greater than 239 mg/dL LDL Cholesterol Calculated 130(H) <100 mg/dL [facility] Comment:Desirable LDL: less than 100 mg/dLNear Optimal/Above Optimal LDL: 110- 129 mg/dLBorderline High LDL: 130-159 mg/dLHigh LDL: 160-189 mg/dLVery High LDL: greater than or equal to 190 mg/dL HDL Cholesterol 46 >40 mg/dL [facility] Comment:Desirable HDL: great er than 40 mg/dL Note: This HDL assay may give artificially low results in patients with liver disease. Blood Venous blood specimen / Unknown 05/08/2023 11:13 AM EST 05/08/2023 1:10 PM EST [facility] LAB BLOOD ORDERABLES Final Re sult [facility] [address] [place] [address] [phone] * HEPATITIS C AB W/REFL TO HCV RNA, QN, PCR (09/08/2021 9:52 AM EDT) HEPATITIS C ANTIBODY NON-REACT [place] NON-REACT [place] [facility] INDEX 0.04 <1.00 [facility] Comment: ?? HCV antibody was non-reactive. There is no laboratory ?? evidence of HCV infection. ?? In most cases, no further action is required. However, if recent HCV exposure is suspected, a test for HCV RNA (test code 53971) is suggested. ?? For additional information please refer to http://[employer]/faq/HPC25m0 (This link is being provided for informational/ educational purposes only.) ?? 09/08/2021 9:52 AM EDT us Micaela Hernandez NP HISTORICAL/NON ORDERABLE LABS F inal Result [facility] [address] * HIV 1/2 ANTIGEN/ANTIBODY,FOURTH GENERATION W/RFL (09/08/2021 9:52 AM EDT) HIV-1/2 ANTIGEN AND ANTIBODIES, 4TH GENERATION W/ REFLEX NON-REACT [place] NON-REACT [place] [facility] Comment: HIV-1 antigen and HIV-1/HIV-2 [...] ? For additional information please refer to http://[employer]/faq/XWL299 (This link is being provided for informational/ educational purposes only.) ? The performance of this assay has not been clinically validated in patients less than 2 years old. ?? 09/08/2021 9:52 AM EDT Micaela David CYTOTECHNOLOGIST LAB BLOOD ORDERABLES Final Resu lt [facility] [address] [place] [address], * Colonoscopy (07/30/2019) Colonoscopy Normal Normal Narrative Marta Adam - 07/30/2019 Repeat in 3 years Historical Provider MD HEALTH MAINTENANCE Final Result * HPV mRNA E6/E7 (05/16/2019 10:37 AM EST) HPV mRNA E6/E7 Not Detected NOT DETECTED [facility] Comment: This test was performed using the APTIMA(R) HPV Assay ([employer] This assay detects E6/E7 viral messenger RNA (mRNA) from 14 high-risk HPV types (16,18,31,33,35,39,45,51, 52,56,58,59,66,68). For additional information please refer to: http://education.[facility]/faq/KOK365k4 (This link is being provided for informational/ educational purposes only.) The analytical performance characteristics of this assay have been determined by [employer] [place], [place]. The modifications have not been cleared or approved by the FDA. This assay has been validated pursuant to the CLIA regulations and is used for clinical purposes. Test Performed by [facility], [employer] [facility], [address] [place] [address] Bird Barber M.D., Ph.D., Director of Laboratories , CLIA [id number] Please note: ??Effective 12/14/2015, HPV testing will be performed using [employer] APTIMA test which targets mRNA. Detecting mRNA instead of DNA, as in older methods, offers significant improvements in specificity. 05/16/2019 10:3 7 AM EST Lexi Thomson CNM HISTORICAL/NON ORDERABLE LABS Final Result [facility] [address] from Last 3 Months or Most Recently Relevant to Health Maintenance Insurance [facility] Care Teams Reconciliation Clerk Relationship Specialty Start Date End Date Ashanti August FNP [address] [place] [phone] PCP - General Family Medicine 11/24/21 Jeff Villarreal FNP [address] [place] [address] Nurse Practitioner Family Medicine 02/20/23
--- OUTSIDE RECORDS SUMMARY | 2024-07-12 07:14 | XMS_ITS | Encounter Summary ---
Author Organization [employer] Address [address] [place] [address] [address] [place] [address] Care Team Providers Care Mail Handler Name Role Phone [facility] Primary Care Provider [phone] Jeff Villarreal Unavailable Unavailable Encounter Details Date Type Department Care Team ([facility] Contact Info) Description 09/20/2022 Orders Only [facility] [address] [place], [place] [phone] Elizabeth Meadows LPN Social History Tobacco Use [...] Description 09/20/2024 1:15 PM EDT Office Visit [facility] [address] [place] [address] Ashanti August FNP [address] [place] [address] documented as of this encounter Visit Diagnoses Not on filedocumented in this encounter Additional Health Concerns Assessment Noted Time PHQ-9 Depression Total Score: 13 023 2:44 PM EST documented as of this encounter Care Teams Mail Handler Relationship Specialty Start Date End Date Ashanti August FNP [address] [place] [phone] PCP - General Family Medicine 11/24/21 Jeff Villarreal FNP [address] [place] [phone] Nurse Practitioner Family Medicine 02/20/23 documented as of this encounter
--- OUTSIDE RECORDS SUMMARY | 2024-07-12 07:14 | XMS_ITS | Encounter Summary ---
Author Organization [employer] Address [address] [place] [address] [address] [place] [address] Care Team Providers Care Archivist [employer] Name Role Phone [facility] Primary Care Provider [phone] Jeff Villarreal [facility] Unavailable Unavailable Reason for Visit * Reason Onset Date Comments Hospital Follow-up 06/14/2024 Encounter Details Date Type Department Care Team (Late st Contact Info) Description 06/14/2024 Telephone [facility] [address] [place], [place] [phone] [facility] [address] [place], [place] [phone] Hospital Follow-up Social History Tobacco Use Types [...] encounter Miscellaneous Notes * Telephone Encounter - Ralf Felix - 06/14/2024 10:43 AM EDT Tc from pt requesting a HDF appt. Hospital: [facility] Date of admission: 06/09/24 Discharge date: 06/13/24 Diagnosed: Hemotma *Send message to [facility] Clinical Care Coordinators documented in this encounter Plan of Treatment Upcoming Encounters Date Type Department Care Team (Late st Contact Info) Description 09/20/2024 1:15 PM EDT Office Visit [facility] [address] [place] [address] Page, Ashanti, [employer]HE[employer] [address] [place], [place] [phone] documented as of this encounter Visit Diagnoses Not on filedocumented in this encounter Additional Health Concerns Assessment Noted Time PHQ-9 Depression Total Score: 0 04/24/19 25 10:11 AM EST documented as of this encounter Care Teams Archivist [employer] Relationship Specialty Start Date End Date Ashanti August FNP [address] [place] [phone] PCP - General Family Medicine 11/24/21 Jeff Villarreal FNP [address] [place] [address] Nurse Practitioner Family Medicine 02/20/23 documented as of this encounter
--- OUTSIDE RECORDS SUMMARY | 2024-07-12 07:15 | XMS_ITS | Referral Summary ---
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 Role Phone Ashanti August Primary Care Provider [phone] Encounters Date Type Department Care Team Description 06/09/2024 4:50 PM EDT - 06/13/2024 2:26 PM EDT Hospital Encounter [facility] [address] [place] [address] Arie Fernandez MD Sungarian, Arno S, MD Faris, Khaldoun, MD Disorder of mediastinum (Primary Dx) Discharge Disposition: Home or Self Care (01) 06/09/2024 Orders Only [facility] - External Imaging [address] [place] [address] Radiology, External 06/09/2024 Orders Only [facility] - External Imaging [address] [place] [address] Radiology, External 06/09/2024 7:19 PM EDT Anesthesia Event [facility] Operating Room [address] [place] [address] Shannen Mejia MD Altadonna, Antonino V., 06/09/2024 7:00 PM EDT - 06/09/2024 8:24 PM EDT Surgery [facility] Operating Room [address] [place] [address] Kofi Gaytan MD INCISION AND DRAINAGE OF INFECTED POSTOPERATIVE WOUND, COMPLEX [87302 (CPT??)] from Last 3 Months Allergies Active Allergy Reactions Criticality Noted Date Comments Codeine Unknown 06/09/2024 Medications acetaminophen (TYLENOL) 325 mg tablet Take 2 tablets (650 mg total) by mouth every 6 hours as needed for pain. 240 tablet 06/14/19 1:54 PM EDT Active atorvastatin (LIPITOR) 80 mg tablet Take 1 tablet (80 mg total) by mouth once a day. 30 tablet 06/14/19 25 1:54 PM EDT Active buPROPion XL (WELLBUTRIN XL) 150 mg tablet Take 1 tablet (150 mg total) by mouth once a day. 30 tablet Active cloNIDine (CATAPRES) 0.1 mg tablet Take 1 tablet (0.1 mg total) by mouth 2 times a day. 60 tablet Active docusate sodium (COLACE) 100 mg capsule Take 1 capsule (100 mg total) by mouth 2 times a day as needed (Constipation from Opioid). 60 capsule 06/14/19 1:54 PM EDT [address] (CYMBALTA) 60 mg capsule Take 1 capsule (60 mg total) by mouth once a day. 30 capsule 025 2024 Active gabapentin (NEURONTIN) 100 mg capsule Take 1 capsule (100 mg total) by mouth every 8 hours. 90 capsule Active hydrOXYzine (ATARAX) 50 mg tablet Take 1 tablet (50 mg total) by mouth once a day. 30 tablet 06/14/19 1:54 PM EDT 025 Active traZODone (DESYREL) 100 mg tablet Take 2 tablets (200 mg total) by mouth nightly. 60 tablet 06/14/19 1:54 PM EDT 025 Active senna (SENOKOT) 8.6 mg tablet Take 1 tablet (8.6 mg total) by mouth once a day. 30 tablet 06/14/19 1:54 PM EDT 025 Active QUEtiapine (SEROquel) 100 mg tablet Take 1 tablet (100 mg total) by mouth nightly. 30 tablet 025 2024 Active polyethylene glycol 3350 (MIRALAX) 17 gram packet Take 1 packet (17 g total) by mouth daily as needed for constipation. Mix powder in 4 to 8 oz of water, juice, coffee, or tea prior to administration. 30 packet 06/14/19 1:54 PM EDT 025 2024 Active methocarbamoL (ROBAXIN) 500 mg tablet Take 1 tablet (500 mg total) by mouth 4 times a day. 120 tablet 06/14/19 1:54 PM EDT Active ipratropium-albut Miguel (DUO-NEB) 0.5-2.5 mg/3 mL nebulizer solution Inhale 1 vial (3 mL) via nebulizer every 4 hours as needed for wheezing or shortness of breath. 180 mL 06/14/19 1:54 PM EDT Active risperiDONE (RisperDAL) 0.5 mg tablet Take 1 tablet (0.5 mg total) by mouth once a day. 30 tablet 06/14/19 1:54 PM EDT Active risperiDONE (RisperDAL M-TAB) 0.5 mg disintegrating tablet Dissolve 1 tablet (0.5 mg total) in the mouth once a day. 30 tablet 025 2024 Discontinued(S top Taking at Discharge) oxyCODONE IR (ROXICODONE) 10 mg tablet Take 0.5 tablets (5 mg total) by mouth every 6 hours as needed for breakthrough pain for up to 7 days. Max Daily Amount: 20 mg 14 tablet 025 2024 Discontinued(S top Taking at Discharge) oxyCODONE IR (ROXICODONE) 5 mg tablet Take 1 tablet (5 mg total) by mouth every 6 hours as needed for breakthrough pain for up to 7 days. Max Daily Amount: 20 mg 28 tablet 025 2024 Discontinued oxyCODONE IR (ROXICODONE) 5 mg tablet Take 1 tablet (5 mg total) by mouth every 6 hours as needed for breakthrough pain for up to 7 days. Max Daily Amount: 20 mg / 4 tablets 28 tablet 06/14/19 1:54 PM EDT 025 2024 Active Problems Problem Noted Date Diagnosed Date Impaired mobility 06/11/2024 Decreased activities of daily living (ADL) 06/11 Major depressive disorder 06/10/2024 Cervical radiculopathy 06/10/2024 Lumbar radiculopathy 06/10/2024 S/P cervical discectomy 06/10/2024 COPD (chronic obstructive pulmonary disease) 01/2025 NIURKA (obstructive sleep apnea) 06/10/2024 Hypertension 06/10/2024 Stage 3 chronic kidney disease 06/10/2024 Type 2 diabetes mellitus 06/10/2024 Difficult intubation 06/09/2024 Hematoma of neck 06/09/2024 Acute post-operative pain 06/09/2024 At risk for hyperglycemia 06/09/2024 Leukocytosis 06/09/2024 Resolved Problems Problem Noted Date Diagnosed Date Resolved Date Bradycardia 06/10/2024 06/13/2024 Disorder of mediastinum 06/09/202406/01 Social History Tobacco Use Types Packs/Day Years Used Date Smoking Tobacco: Former Cigarettes Smokeless Tobacco: Never Tobacco Cessation:Counseling Given: Not Answered Comments:Quit smoking 2018 Alcohol Use Standard Drinks/Week Comments Not Currently 0 (1 standard drink = 0.6 oz pur e alcohol) Comments No Sex and Gender Information Value Date Recorded Sex Assigned at Female 06/09/2024 4:53 PM EDT Legal Sex Female 10:49 PM EDT Gender Identity Not on file Sexual Orientation Not on file Last Filed Vital Signs Vital Sign Reading Time Taken Comments Blood Pressure 107/68 06/13/2024 11:54 AM EDT Pulse 69 06/13/2024 11:54 AM EDT Temperature 36.7 ??C (98.1 ??F) 06/13/2024 11:54 AM E DT Respiratory Rate 18 06/13/2024 11:54 AM EDT Oxygen Saturation 100% 06/13/2024 11:54 AM EDT Inhaled Oxygen Concentration - - Weight 77.8 kg (171 lb 8.3 oz) 06/13/2024 6:00 A M EDT Height 157.5 cm (5' 2 ) 06/11/2024 9:00 AM EDT Body Mass Index 31.37 06/11/2024 9:00 AM EDT Plan of Treatment Not on file Procedures * Due to [place] state law, this organization might not be sharing negative HIV tests. Procedure Name Priority Date/Time Associated Diagnosis Comments POCT GLUCOSE Routine 06/13/2024 12:41 PM EDT POCT GLUCOSE Routine 06/13/2024 7:57 AM EDT POCT GLUCOSE Routine 06/12/2024 9:04 PM EDT POCT GLUCOSE Routine 06/12/2024 5:12 PM EDT POCT GLUCOSE Routine 06/12/2024 11:30 AM EDT POCT GLUCOSE Routine 06/12/2024 7:54 AM EDT SMEAR REVIEW STAT 06/12/2024 3:36 AM EDT CBC AUTO DIFFERENTIAL STAT 06/12/2024 3:36 AM EDT PHOSPHORUS Routine 06/12/2024 3:36 AM EDT MAGNESIUM Routine 06/12/2024 3:36 AM EDT BASIC METABOLIC PANEL Routine 06/12/2024 3:36 AM EDT POCT GLUCOSE Routine 06/11/2024 9:04 PM EDT VANCOMYCIN, TROUGH Timed 06/11/2024 8: 10 PM EDT POCT GLUCOSE Routine 06/11/2024 4:41 PM EDT POCT GLUCOSE Routine 06/11/2024 12:17 PM EDT TRANSTHORACIC ECHO (TTE) COMPLETE Routine 06/11/2024 9:35 AM EDT POCT GLUCOSE Routine 06/11/2024 8:01 AM EDT PHOSPHORUS Routine 06/11/2024 3:54 AM EDT MAGNESIUM Routine 06/11/2024 3:54 AM EDT BASIC METABOLIC PANEL Routine 06/11/2024 3:54 AM EDT CBC AUTO DIFFERENTIAL Routine 06/11/2024 3:54 AM EDT POCT GLUCOSE Routine 06/10/2024 9:[address] CERVICAL SPINE WO CONTRAST STAT 06/10/2024 6:13 PM EDT POCT GLUCOSE Routine 06/10/2024 4:43 PM EDT EXTUBATE PATIENT Routine 06/10/2024 11:1 8 AM EDT POCT GLUCOSE Routine 06/10/2024 10:13 AM EDT POCT GLUCOSE Routine 06/10/2024 7:48 AM EDT POCT GLUCOSE Routine 06/10/2024 5:50 AM EDT POCT GLUCOSE Routine 06/10/2024 3:06 AM EDT PHOSPHORUS Routine 06/10/2024 3:00 AM EDT MAGNESIUM Routine 06/10/2024 3:00 AM EDT CBC AUTO DIFFERENTIAL Routine 06/10/2024 3:00 AM EDT BASIC METABOLIC PANEL Routine 06/10/2024 3:00 AM EDT MRSA/S AUREUS PCR, NASAL Routine 06/10/2024 3:00 AM EDT ECG 12-LEAD Routine 06/10/2024 2:15 AM EDT POCT GLUCOSE Routine 06/10/2024 1:56 AM EDT XR CHEST 1 VW STAT 06/09/2024 9:40 PM EDT TISSUE EXAM Routine 06/09/2024 8:09 PM EDT Disorder of mediastinum [place] COMPLEX DRAINAGE, WOUND 06/09/2024 7:14 PM EDT Disorder of mediastinum TYPE AND SCREEN STAT 06/09/2024 6:16 PM EDT CONCEPCION TOP Routine 06/09/2024 5:17 PM EDT EXTRA TUBES Routine 06/09/2024 5:17 PM EDT MAGNESIUM STAT 06/09/2024 5:17 PM EDT BASIC METABOLIC PANEL STAT 06/09/2024 5:17 PM EDT PROTIME-INR STAT 06/09/2024 5:17 PM EDT CBC AUTO DIFFERENTIAL STAT 06/09/2024 5:17 PM EDT ECG 12-LEAD Routine 06/09/2024 4:52 PM EDT HEART & VASCULAR - SCANNED 06/09/2024 from Last 3 Months Results * Due to [place] state law, this organization might not be sharing negative HIV tests. * (ABNORMAL) POCT Glucose, interfaced (06/13/2024 12:41 PM EDT) Only the most recent of17 resultswithin the time period is included. [facility] Signature Glucose, POCT 148(H) 70 - 99 mg/dL 06/13/2024 12:42 PM EDT [facility] Comment: The classics teacher has not determined the efficacy of this test in Critically ill patients. ??[facility] defines Critically ill patients for the purpose of blood glucose monitoring (BGM) by glucometer, as patients meeting one or more of the following criteria: Hypotension- non-ICU patients (systolic blood pressure Less than 90 mmHg) due to shock Hypotension -ICU patients ??(Mean Arterial Pressure (MAP) <60 mmHg or systolic blood pressure < 90 mmHg due to shock Patients receiving Vasopressors (phenylephrine, vasopressin or norepinephrine) Anasarca In all locations, BGM test results should not be relied upon in the above situations, unless these results confirmed with lab-based glucose values. Blood 06/13/2024 12:4 1 PM EDT 06/13/2024 12:42 PM EDT us Kofi Gaytan MD LAB POCT ORDERABLES - DEVICE Final Result Performing Organization Address [facility] Co de Phone Number [facility] [address] [place] [address], * (ABNORMAL) Smear Review (06/12/2024 3:36 AM EDT) Platelet Estimate Adequate Adequate 06/12/2024 4:12 AM EDT [facility] RBC Morphology Present(A) Normal, No clinically significant RBC morphology present (ICSH guidelines, 2015). 06/12/2024 4:12 AM EDT [facility] Anisocytosis 2+(A) Not Present 06/12/2024 4:12 AM EDT [facility] Hypochromia 2+(A) Not Present 06/12/2024 4:12 AM EDT [facility] Ovalocytes 2+(A) Not Present 06/12/2024 4:12 AM EDT [facility] Blood Structure of peripheral vein / Unknown Venipuncture / Unknown 06/12/2024 3:36 AM EDT 06/12/2024 3:42 AM EDT us Samreen VILLAGOMEZ LAB BLOOD ORDERABLES Fi nal Result [facility] [place] [facility] [address] [place] [address], [place] * (ABNORMAL) CBC Auto Differential (06/12/2024 3:36 AM EDT) Only the most recent of4 resultswithin the time period is included. WBC 7.2 3.8 - 10.8 10*3/uL 06/12/2024 4:12 AM EDT [facility] [place] [facility] RBC 4.29 3.80 - 5.10 10*6/uL 06/12/2024 4:12 AM EDT [facility] [place] [facility] Hemoglobin 11.9 11.7 - 15.5 g/dL 06/12/2024 4:12 AM EDT [facility] [place] [facility] Hematocrit 38.3 35.0 - 45.0 % 06/12/2024 4:12 AM EDT [facility] [place] [facility] MCV 89.3 80.0 - 100.0 fL 06/12/2024 4:12 AM EDT [facility] MCH 27.7 27.0 - 33.0 pg 06/12/2024 4:12 AM EDT [facility] [place] [facility] MCHC 31.1(L) 32.0 - 36.0 g/dL 06/12/2024 4:12 AM EDT [facility] [place] [facility] RDW 16.0(H) 11.0 - 15.0 % 06/12/2024 4:12 AM EDT [facility] Platelets 200 140 - 400 10*3/uL 06/12/2024 4:12 AM EDT [facility] MPV 9.9 7.5 - 12.5 fL 06/12/2024 4:12 AM EDT [facility] Neutrophil % 58.2 % 06/12/2024 4:12 AM EDT [facility] Immature Grans % 0.6 0.0 - 0.9 % 06/12/2024 4:12 AM EDT [facility] Lymphocyte % 31.6 % 06/12/2024 4:12 AM EDT [facility] Monocyte % 9.5 % 06/12/2024 4:12 AM EDT [facility] Eosinophil % 0.0 % 06/12/2024 4:12 AM EDT [facility] Basophil % 0.1 % 06/12/2024 4:12 AM EDT [facility] Neutrophil # 4.19 1.50 - 7.80 10*3/uL 06/12/2024 4:12 AM EDT [facility] Immature Grans # 0.04(H) <=0.03 10*3/uL 06/12/2024 4:12 AM EDT [facility] Lymphocyte # 2.30 0.85 - 3.90 10*3/uL 06/12/2024 4:12 AM EDT [facility] Monocyte # 0.70 0.20 - 0.95 10*3/uL 06/12/2024 4:12 AM EDT [facility] Eosinophil # <0.03 0.02 - 0.50 10*3/uL 06/12/2024 4:12 AM EDT [facility] Basophil # <0.03 0.00 - 0.20 10*3/uL 06/12/2024 4:12 AM EDT [facility] nRBC % 0.0 /100 WBCs 06/12/2024 4:12 AM EDT [facility] nRBC # <0.01 <0.01 10*3/uL 06/12/2024 4:12 AM EDT [facility] Blood Structure of peripheral vein / Unknown Venipuncture / Unknown 06/12/2024 3:36 AM EDT 06/12/2024 3:42 AM EDT Samreen VILLAGOMEZ LAB BLOOD ORDERABLES Fi nal Result Performing Organization Address City/[facility]/ZIP Co de Phone Number [facility] [address] [place] [address], * Phosphorus (06/12/2024 3:36 AM EDT) Only the most recent of3 resultswithin the time period is included. Phosphorus 2.6 2.5 - 4.5 mg/dL 06/12/2024 4:11 AM EDT [facility] Blood Structure of peripheral vein / Unknown Venipuncture / Unknown 06/12/2024 3:36 AM EDT 06/12/2024 3:44 AM EDT Diamond Jerome MD LAB BLOOD ORDERABLES Final Res ult Performing Organization Address [facility] de Phone Number [facility] [address] [place] [address], [place] * Magnesium (06/12/2024 3:36 AM EDT) Only the most recent of4 resultswithin the time period is included. MG 2.0 1.6 - 2.4 mg/dL 06/12/2024 4:11 AM EDT [facility] Blood Structure of peripheral vein / Unknown Venipuncture / Unknown 06/12/2024 3:36 AM EDT 06/12/2024 3:44 AM EDT Diamond Jerome MD LAB BLOOD ORDERABLES Final Res ult Performing Organization Address City/[facility]/ZIP Co de Phone Number [facility] [address] [place] [address], * (ABNORMAL) Basic metabolic panel (06/12/2024 3:36 AM EDT) Only the most recent of4 resultswithin the time period is included. NA 141 135 - 145 mmol/L 06/12/2024 4:11 AM EDT [facility] K 4.0 3.5 - 5.3 mmol/L 06/12/2024 4:11 AM EDT [facility] Cl 107 98 - 107 mmol/L 06/12/2024 4:11 AM EDT [facility] CO2 24 22 - 32 mmol/L 06/12/2024 4:11 AM EDT [facility] BUN 15 7 - 23 mg/dL 06/12/2024 4:11 AM EDT [facility] Creatinine 0.71 0.50 - 1.20 mg/dL 06/12/2024 4:11 AM ED [facility] Glucose 140(H) 65 - 99 mg/dL 06/12/2024 4:11 AM EDT [facility] Calcium 9.1 8.6 - 10.5 mg/dL 06/12/2024 4:11 AM EDT [facility] Anion Gap 10 5 - 15 06/12/2024 4:11 AM EDT [facility] eGFR >90 >=60 mL/min/1. 73m2 06/12/2024 4:11 AM ED [facility] Comment:The estimated glomer ular filtration rate (eGFR) is calculated using a new formula developed by the NKF-ASN task force to eliminate race-based correction factors. The new formula uses serum/plasma creatinine, age, and gender to determine eGFR. A value below 60mls/min might indicate kidney disease and will be flagged. For additional information, see Damico et al, Am J Kidney Dis. 2021;79(2):268- 288, A Unifying Approach for GFR estimation: Recommendations of the NKF-ASN Task Force on Reassessing the Inclusion of Race in Diagnosing Kidney Disease . Blood Structure of peripheral vein / Unknown Venipuncture / Unknown 06/12/2024 3:36 AM EDT 06/12/2024 3:44 AM EDT Diamond Jerome MD LAB BLOOD ORDERABLES Final Res ult Performing Organization Address [facility] Co de Phone Number [facility] [address] [place] [address], * Vancomycin, Trough (06/11/2024 8:10 PM EDT) Vancomycin Trough 12.5 10.0 - 20.0 ug/mL 06/11/2024 8:44 PM EDT [facility] Comment: Before interpreting a drug level, check the time the dose was given in the MAR to ensure the level was drawn appropriately. 10-15 ug/mL: Empiric/Mild infections 15-20 ug/mL: Severe MRSA infection (pneumonia, meningitis, endocarditis) Blood Structure of peripheral vein / Unknown Venipuncture / Unknown 06/11/2024 8:10 PM EDT 06/11/2024 8:16 PM EDT Diamond Jerome MD LAB BLOOD ORDERABLES Final Res ult Performing Organization Address [facility] Co de Phone Number [facility] [address] [place] [address], * TRANSTHORACIC ECHO (TTE) COMPLETE (06/11/2024 9:35 AM EDT) BSA 1.82 m2 LVIDD 3.9 cm LVIDS 2.1 cm IVS 1.0 cm LVOT diameter 1.9 cm LVOT area 2.83 cm2 Relative Wall Thickness 0.50 PW 1.0 cm LV Mass Index 65 g/m2 MV Peak E Willi 1.03 m/s MV avg E/e' 10.68 MV Peak A Willi 0.69 m/s TR pk willi 2.1 m/s E/A ratio 1.50 Lateral e' 0.11 m/s E wave deceleration time 201.0 msec Septal e' 0.08 m/s MV E/E' Tissue Velocity Lateral 9.45 MV E/e' septal 12.28 LVOT peak willi 1.18 m/s LVOT stroke volume 85 cm3 LV stroke vol index 47.4 mL/m2 LA size 3.6 cm AV mean gradient 7 mmHg AV peak gradient 13 mmHg Ao peak willi 1.8 m/s Ao VTI 44.10 cm LVOT peak VTI 30.00 cm AV VALVE AREA INDEX 1.10 cm2/m2 AV valve area 1.90 cm2 AV area pk willi 1.9 cm2 AV Doppler willi index pk willi 0.66 AV Velocity Ratio 0.68 TR PEAK GRAD 18.0 mmHg PV pk willi 1.0 cm/s PV peak gradient 4.0 mmHg LV ED Post Wall 1.00 LV ES Dimension 2.10 LV ED Dimension 3.90 Aortic Valve Diam 1.9 cm LA Volume Index 26 mL/m2 LA volume 46 mL EF 2D 64 % Echo EF Estimated 63 % LV Systolic Volume 28 mL LV Systolic Volume Index 16 mL/m2 LV Diastolic Volume 78 mL LV Diastolic Volume Index 44 mL/m2 LV mass 116 EF 77 Anatomical Region Laterality Modality Heart Echocardiography Narrative 06/11/2024 12:45 PM EDT ?Normal biventricular size and systolic. ??Estimated LVEF 65%. ?No significant valvular dysfunction. Left Ventricle The left ventricle size is normal. Mild interventricular septal thickening. There is increased relative wall thickness and normal left ventricular mass index, consistent with concentric remodeling. Normal left ventricular wall motion. Normal left ventricular systolic function. Left ventricular ejection fraction is in the normal range with visually estimated LVEF 65%. Left ventricular global longitudinal strain is normal. Estimated left ventricular filling pressure is normal. Right Ventricle Right ventricle size is normal. Normal right ventricular systolic function. Left Atrium Left atrium size is normal. Right Atrium Right atrium is normal in size. IVC/SVC IVC was not well visualized. Mitral Valve Mild mitral annular calcification. Trace mitral regurgitation. No mitral stenosis. Tricuspid Valve Tricuspid valve structure is normal. Mild tricuspid regurgitation. No tricuspid stenosis. Aortic Valve There is a trileaflet aortic valve. Mild aortic valve calcification. No restricted aortic motion. No aortic regurgitation. Sclerosis without aortic stenosis. Pulmonic Valve Pulmonic valve not well visualized. Trace pulmonic regurgitation. No pulmonic stenosis. Pericardium No pericardial effusion. Pulmonary Artery The estimated pulmonary artery systolic pressure is 18.0 mmHg plus the right atrial pressure.Pulmonary artery systolic hypertension is likely absent. Atrial Septum No interatrial shunt detected by color flow Doppler. Ventricular Septum Normal septal motion. Study Details A complete echo was performed using 2D imaging, color flow Doppler and complete spectral Doppler. During the study the apical, parasternal and subcostal view was captured. Overall the study quality was adequate. Prior Study No prior study available for comparison. STRESS ECHO OVERALL FINDINGS Normal RV size and systolic function. No prior echocardiogram available for direct comparison. No significant valvular disease identified. Wall Scoring Baseline Score Index: 1.00 The left ventricular wall motion is normal. us Diamond Jerome MD CV ECHO PROCEDURES Final Resul t * CT Cervical Spine without Contrast (06/10/2024 6:13 PM EDT) Anatomical Region Laterality Modality Spine, C-spine Computed Tomogra phy 06/10/2024 7:17 PM EDT Impressions 06/10/2024 7:17 PM EDT 1. ??Chronic C4-5 ACDF postsurgical changes with intact anteriorly instrumented plate and screw hardware. ??Complete incorporation of the C4-5 intradiscal allograft and ankylosis of the C4-5 disc. 2. ??Recent C7-T1 ACDF perioperative changes with intact anteriorly instrumented plate and screw hardware and intradiscal fusion device of the intervening C7-T1 disc. ??Minimal degenerative/postsurgical anterolisthesis of C7 on T1 and retrolisthesis of C6 on C7. ??No perihardware loosening or hardware complication involving the ACDF levels is seen. ?? 3. Prevertebral soft tissue swelling C7-T4 likely representing residual postoperative hematoma or fluid collection which is less prominent when directly compared with the prior outside CT study of 06/09. ?? 4. Although no limiting CT evidence of central canal stenosis or cord compression is seen, I would recommend follow-up MRI if there are persistent or progressive clinical symptoms or signs to further assess the spinal canal and intradural contents. If this radiology report contains a blank impression section, it is an incomplete radiology report. ??Please contact the interpreting radiologist or applicable radiology division as soon as possible to obtain the completed interpretation. ? Workstation ID: [id number] Up-to-date CT equipment and radiation dose reduction techniques were employed. CTDIvol: 21.4 mGy. DLP: 541 mGy-cm. Narrative 06/10/2024 7:17 PM EDT EXAMINATION: CT of cervical spine without contrast TECHNIQUE: Helical volumetric CT acquisition of the cervical spine was performed without IV contrast. ??Multiplanar sagittal and coronal reformats performed on the acquisition console.. CLINICAL INFORMATION: 63 year old female reassess posterior mediastinal hematoma. ??Status post 06/04/24 ??C7-T1 anterior discectomy, arthrodesis, and implantation cage at [facility]. 06/09/24 wash out of post op hematom COMPARISON: Outside CT chest and neck soft tissue studies of 06/09/2024. FINDINGS: There is straightening of the cervical lordosis . ??There are chronic ACDF postsurgical changes with intact anteriorly instrumented plate and screw hardware at the C4-5 levels with complete incorporation of the C4-5 intradiscal allograft and ankylosis of the C4-5 disc. There are recent perioperative changes status post C7-T1 ACDF with intact anteriorly instrumented plate and screw hardware and intradiscal fusion device of the intervening C7-T1 disc. ??There is minimal degenerative/postsurgical anterolisthesis of C7 on T1 and retrolisthesis of C6 on C7. ??No perihardware loosening or hardware complication involving the ACDF levels is seen. ?? There is prevertebral soft tissue swelling C7-T4 likely representing residual postoperative hematoma or fluid collection which is less prominent when compared prior CT study of 06/09 (compare current sagittal 6:45 with prior study 13:46). No epidural or dorsal paraspinal soft tissue mass or fluid collection is identified. ??I would recommend follow-up MRI if there are persistent or progressive clinical symptoms or signs to further assess the spinal canal and intradural contents. C2-3: Moderate facet arthropathy, right greater than left. ??Mild narrowing of the right C3 neural foramen. C3-4: Moderate facet arthropathy, right greater than left. ??Intraforaminal discovertebral/uncovertebral hypertrophic changes mildly narrowing the right C4 neural foramen. C4-5: ACDF postsurgical changes. ??Mild underlying facet arthropathy/arthrodesis. ??Mild narrowing of the C5 neural foramina, left greater than right. C6-7: Advanced discogenic degenerative changes with broad-based right paracentral discovertebral hypertrophic changes mildly narrowing the central spinal canal. ??Moderate narrowing of the right C7 neural foramen. C7-T1 no limiting central canal stenosis. ??Moderate-marked narrowing and loss of height of the left C8 neural foramen (6:41). Resulting Agency Comment [id number] Procedure Note Milo Carrillo MD - 06/10/2024 EXAMINATION: CT of cervical spine without contrast TECHNIQUE: Helical volumetric CT acquisition of the cervical spine was performedwithout IV contrast. Multiplanar sagittal and coronal reformats performedon the acquisition console.. CLINICAL INFORMATION: 63 year old female reassess posterior mediastinalhematoma. Status post 06/04/24 C7-T1 anterior discectomy, arthrodesis, andimplantation cage [facility]. 06/09/24 wash out of post ophematom COMPARISON: Outside CT chest and neck soft tissue studies of 06/09/2024. FINDINGS: There is straightening of the cervical lordosis . There are chronic ACDFpostsurgical changes with intact anteriorly instrumented plate and screwhardware at the C4-5 levels with complete incorporation of the C4-5intradiscal allograft and ankylosis of the C4-5 disc. There are recent perioperative changes status post C7-T1 ACDF with intactanteriorly instrumented plate and screw hardware and intradiscal fusiondevice of the intervening C7-T1 disc. There is minimaldegenerative/postsurgical anterolisthesis of C7 on T1 and retrolisthesisof C6 on C7. No perihardware loosening or hardware complication involvingthe ACDF levels is seen. There is prevertebral soft tissue swelling C7-T4 likely representingresidual postoperative hematoma or fluid collection which is lessprominent when compared prior CT study of 06/09 (compare current sagittal6:45 with prior study 13:46). No epidural or dorsal paraspinal soft tissue mass or fluid collection isidentified. I would recommend follow-up MRI if there are persistent orprogressive clinical symptoms or signs to further assess the spinal [place] intradural contents. C2-3: Moderate facet arthropathy, right greater than left. Mild narrowingof the right C3 neural foramen. C3-4: Moderate facet arthropathy, right greater than left. Intraforaminaldiscovertebral/uncovertebral hypertrophic changes mildly narrowing theright C4 neural foramen. C4-5: ACDF postsurgical changes. Mild underlying facetarthropathy/arthrodesis. Mild narrowing of the C5 neural foramina, leftgreater than right. C6-7: Advanced discogenic degenerative changes with broad-based rightparacentral discovertebral hypertrophic changes mildly narrowing thecentral spinal canal. Moderate narrowing of the right C7 neuralforamen. C7-T1 no limiting central canal stenosis. Moderate-marked narrowing andloss of height of the left C8 neural foramen (6:41). IMPRESSION: 1. Chronic C4-5 ACDF postsurgical changes with intact anteriorlyinstrumented plate and screw hardware. Complete incorporation of the C4-5intradiscal allograft and ankylosis of the C4-5 disc. 2. Recent C7-T1 ACDF perioperative changes with intact anteriorlyinstrumented plate and screw hardware and intradiscal fusion device of theintervening C7-T1 disc. Minimal degenerative/postsurgical anterolisthesisof C7 on T1 and retrolisthesis of C6 on C7. No perihardware loosening orhardware complication involving the ACDF levels is seen. 3. Prevertebral soft tissue swelling C7-T4 likely representing residualpostoperative hematoma or fluid collection which is less prominent whendirectly compared with the prior outside CT study of 06/09. 4. Although no limiting CT evidence of central canal stenosis or cordcompression is seen, I would recommend follow-up MRI if there arepersistent or progressive clinical symptoms or signs to further assess thespinal canal and intradural contents. If this radiology report contains a blank impression section, it is anincomplete radiology report. Please contact the interpreting radiologistor applicable radiology division as soon as possible to obtain thecompleted interpretation. Workstation ID: [id number] Up-to-date CT equipment and radiation dose reduction techniques wereemployed. CTDIvol: 21.4 mGy. DLP: 541 mGy-cm. Diamond Jerome MD [facility] CT PROCEDURES Final Result * MRSA/S aureus PCR, Nasal (06/10/2024 3:00 AM EDT) Pathologist [facility] MRSA PCR, Nasal NOT DETECTED NOT DETECTED 06/10/2024 3:58 PM EDT [employer] [facility] S. aureus PCR, Nasal NOT DETECTED NOT DETECTED 06/10/2024 3:58 PM EDT [employer] [facility] Swab Nasal structure / Unknown Non-Blood Collection / Unknown 06/10/2024 3:00 AM EDT 06/10/2024 3:11 AM EDT Narrative [facility] - 06/10/2024 3:58 PM EDT [facility] Received Date:[id number] Alla Bernard AMBULANCE ASSISTANT LAB BODY FLUIDS AND STOOLS O RDERABLES Final Result [facility] [address], [place] [address], [employer] [facility] [address], [place] [address], * ECG 12 lead (06/10/2024 2:15 AM EDT) Only the most recent of2 resultswithin the time period is included. Ventricular Rate EKG 44 BPM MUSE EKG Atrial Rate 44 BPM MUSE EKG [place] Interval 134 ms MUSE EKG QRS Interval 84 ms MUSE EKG QT Interval 534 ms MUSE EKG QTC Interval 456 ms MUSE EKG P [place] 47 degrees MUSE EKG R [place] 19 degrees MUSE EKG T Wave [place] 39 degrees MUSE EKG 06/10/2024 2:15 AM EDT 06/18/2024 11:39 AM EDT Impressions MUSE EKG - 06/18/2024 11:39 AM EDT MARKED SINUS BRADYCARDIA ABNORMAL ECG WHEN COMPARED WITH ECG OF 09-JUN-2024 16:52, (UNCONFIRMED) VENT. RATE HAS DECREASED BY ??54 BPM Confirmed by Hira Garcia ([id number]) on 06/18/2024 11:39:10 AM Quality Lab Technician Dali FISCEHR ECG ORDERABLES Final Resu lt Performing Organization Address City/[facility]/ZIP Co de Phone Number MUSE EKG * X-Ray Chest 1 View (06/09/2024 9:40 PM EDT) Anatomical Region Laterality Modality Body Computed Radiogr aphy 06/10/2024 9:04 AM EDT Impressions 06/10/2024 9:05 AM EDT ET in place 1.5 cm above the esdras. Heart mildly enlarged with underaeration/atelectasis LLL. Lungs otherwise clear. Neural spaces and bones unremarkable. Cervical spine fusion hardware in place. If this radiology report contains a blank impression section, it is an incomplete radiology report. ??Please contact the interpreting radiologist or applicable radiology division as soon as possible to obtain the completed interpretation. ? Workstation ID: [id number] Narrative 06/10/2024 9:05 AM EDT COMPARISON: ??None FINDINGS AND Resulting Agency Comment [id number] Procedure Note Heriberto Johnston MD - 06/10/2024 COMPARISON: None FINDINGS AND IMPRESSION: ET in place 1.5 cm above the esdras. Heart mildly enlarged withunderaeration/atelectasis LLL. Lungs otherwise clear. Neural spaces andbones unremarkable. Cervical spine fusion hardware in place. If this radiology report contains a blank impression section, it is anincomplete radiology report. Please contact the interpreting radiologistor applicable radiology division as soon as possible to obtain thecompleted interpretation. Workstation ID: [id number] us Alla Bernard AMBULANCE ASSISTANT IMG XR PROCEDURES Final Resu lt * Tissue Exam (06/09/2024 8:09 PM EDT) Final Diagnosis Post Surgical Hematoma: - Organizing hemorrhage, consistent with clot. 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 Other Received in formalin, labeled the patient's name, MRN, date of , and postsurgical hematoma , are multiple pink-red, irregular soft tissue fragments (5.0 x 4.5 x 1.5 cm in aggregate). The specimen is serially section, revealing a dark red, congealed cut surface, consistent with congealed blood clot. Airplane Designer sections are submitted in cassette 1A. [facility] MANUAL 06/12/2024 9:18 AM [facility] ANATOMIC PATHOLOGY LABORATORY Gross Description User Grossing complete by Mayte Alas on 06/10/2024 10:01 AM [facility] MANUAL 06/12/2024 9:18 AM [facility] ANATOMIC PATHOLOGY LABORATORY Embedded Images [facility]24 [facility] Resulting Agency Case was signed out at [facility], Department of Pathology, [employer] 3 CLIA [id number] [facility] MANUAL 06/12/2024 9:18 AM [facility] Report Header Surgical Pathology Report ? Case: [id number] ? Authorizing Provider: ??Kofi Gaytan MD ? Collected: ? 06/09/20242008 ? Ordering Location: ? [facility] ? Received: ?06/10/2024914 ? [place] ? Operating Room ? Pathologist: ? Kerry Rizvi MD ? Specimen: ?Other, Post surgical hematoma, Neck ? 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] us Kofi Gaytan MD LAB PATHOLOGY/CYTOLOGY ORDER LOULOU Final Result [facility] [address] [place] [address] ANATOMIC PATHOLOGY LABORATORY [address] [place] [address] * Type and Screen (06/09/2024 6:16 PM EDT) ABO Blood Type O 06/09/2024 7:02 PM EDT [facility] RH Type Positive 06/09/2024 7:02 PM EDT [facility] Expiration Date/Time 2024-06-12 23:59 06/09/2024 7:02 PM EDT [facility] Antibody Screen Negative 06/09/2024 7:02 PM EDT [facility] Blood Structure of peripheral vein / Unknown Venipuncture / Unknown 06/09/2024 6:16 PM EDT 06/09/2024 6:16 PM EDT Arie Fernandez MD LAB BLOOD BANK TEST ORDERABLES Edited Result - Final BLOOD BANK INFCE [address] [place] [address], * Concepcion Top (06/09/2024 5:17 PM EDT) Extra Tube Hold for add-ons. 06/09/2024 10:05 PM EDT [facility] Comment:Auto resulted. Blood Structure of peripheral vein / Unknown 06/09/2024 5:17 PM EDT 06/09/2024 5:17 PM EDT Protocol Unv Adult Treatment LAB BLOOD ORDERA BLES Final Result Performing Organization Address [facility] Co de Phone Number [facility] [address] [place] [address], [place] * Protime-INR (06/09/2024 5:17 PM EDT) PT 12.3 9.6 - 12.4 Seconds 06/09/2024 5:57 PM EDT [facility] INR 1.2 0.9 - 1.1 06/09/2024 5:57 PM EDT [facility] Comment:The optimal therapeu tic INR range for patients treated with Vitamin K antagonists (VKAS, e.g., Warfarin) is 2.0 to 3.5. Discuss the desired range with your doctor/care team. 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
--- OUTSIDE RECORDS SUMMARY | 2024-07-12 07:15 | XMS_ITS | Encounter Summary ---
Author Organization [employer] Address [address] [place] [address] 7 [place] [address] Care Team Providers Care Roll Forming Supervisor Name Role Phone Ashanti August Primary Care Provider [phone] Jeff Villarreal Unavailable Unavailable Reason for Visit * Reason Comments Med Refill Encounter Details Date Type Department Care Team ([facility] Contact Info) Description 10/16/[address] [facility] MEDICINE [address] [place] [address] Jeff Villarreal FNP Depression, unspecified depression type [...] Upcoming Encounters Date Type Department Care Team ([facility] Contact Info) Description 09/20/2024 1:15 PM EDT Office Visit [facility] MEDICINE [address] [place] [address] [place] [address] [place] [address] documented as of this encounter Visit Diagnoses Diagnosis Depression, unspecified depression type documented in this encounter Additional Health Concerns Assessment Noted Time PHQ-9 Depression Total Score: 13 023 2:44 PM EST documented as of this encounter Care Teams Roll Forming Supervisor Relationship Specialty Start Date End Date Ashanti August FNP [address] [place] [address] PCP - General Family Medicine 11/24/21 Jeff Villarreal FNP [address] [place] [address] Nurse Practitioner Family Medicine 02/20/23 documented as of this encounter
--- OUTSIDE RECORDS SUMMARY | 2024-07-12 07:15 | XMS_ITS | Encounter Summary ---
Author Organization [employer] Address [address] [place] [address] 7 [place] [address] Care Team Providers Care Pet Store Merchandiser Name Role Phone Ashanti August [employer] Primary Care Provider [phone] Jeff Villarreal Unavailable Unavailable Reason for Visit * Reason Comments Med Refill Encounter Details Date Type Department Care Team (Late st Contact Info) Description 07/30/2023 Refill [facility] MEDICINE [address] [place] [address] Jeff Villarreal FNP Depression, unspecified depression type [...] Visit [facility] MEDICINE [address] [place] [address] Ashanti August FNP [address] [place] [address] documented as of this encounter Visit Diagnoses Diagnosis Depression, unspecified depression type documented in this encounter Additional Health Concerns Assessment Noted Time PHQ-9 Depression Total Score: 9 07/05/19 24 4:20 PM EDT documented as of this encounter Care Teams Pet Store Merchandiser Relationship Specialty Start Date End Date Ashanti August FNP [address] [place] [address] PCP - General Family Medicine 11/24/21 Jeff Villarreal FNP [address] [place] [address] Nurse Practitioner Family Medicine 02/20/23 documented as of this encounter
--- OUTSIDE RECORDS SUMMARY | 2024-07-12 07:15 | XMS_ITS | Encounter Summary ---
Author Organization [facility] Address [address] [place] [address] 7 [place] [address] Care Team Providers Care Tile Roofer Name Role Phone [facility] Primary Care Provider [phone] Jeff Villarreal [facility] Unavailable Unavailable Reason for Visit * Reason Onset Date Comments Hospital Follow-up 07/28/2023 Encounter Details Date Type Department Care Team (Late st Contact Info) Description 07/28/2023 Telephone [facility] MEDICINE [address] [place], [place] [phone] [facility] [address] [place], [place] [phone] Hospital Follow-up Social History Tobacco Use Types [...] from pt requesting a HDF appt. Hospital: [facility] Date of admission: 07/19 Discharge date: 07/25 Diagnosed: Massive UTI documented in this encounter Plan of Treatment Upcoming Encounters Date Type Department Care Team (Late st Contact Info) Description 09/20/2024 1:15 PM EDT Office Visit [facility] MEDICINE [address] [place] [address] Ashanti August FNP [address] [place] [address] documented as of this encounter Visit Diagnoses Not on filedocumented in this encounter Additional Health Concerns Assessment Noted Time PHQ-9 Depression Total Score: 9 07/05/19 4:20 PM EDT documented as of this encounter Care Teams Tile Roofer Relationship Specialty Start Date End Date Ashanti August FNP [address] [place] [address] PCP - General Family Medicine 11/24/21 Jeff Villarreal FNP [address] [place] [address] Nurse Practitioner Family Medicine 02/20/23 documented as of this encounter
--- OUTSIDE RECORDS SUMMARY | 2024-07-12 07:15 | XMS_ITS | Encounter Summary ---
Author Organization [employer] Address [address] [place] [address] [address] [place] [address] Care Team Providers Care Card Sorter Name Role Phone [facility] Primary Care Provider [phone] Jeff Villarreal [employer] OPER[employer] SPECIALIST Unavailable Unavailable Encounter Details Date Type Department Care Team (Late Contact Info) Description 11/07/2022 Orders Only [facility] [address] [place], [place] [phone] Elizabeth Meadows LPN Social History Tobacco Use [...] Description 09/20/2024 1:15 PM EDT Office Visit [facility] MEDICINE [address] [place], [place] [phone] [facility] [address] [place], [place] [phone] documented as of this encounter Visit Diagnoses Not on filedocumented in this encounter Additional Health Concerns Assessment Noted Time PHQ-9 Depression Total Score: 24 023 10:26 AM EDT documented as of this encounter Care Teams Card Sorter Relationship Specialty Start Date End Date Ashanti August FNP [address] [place] [address] PCP - General Family Medicine 11/24/21 Jeff Villarreal FNP [address] [place] [address] Nurse Practitioner Family Medicine 02/20/23 documented as of this encounter
--- OUTSIDE RECORDS SUMMARY | 2024-07-12 07:15 | XMS_ITS | Clinical Summary ---
Author Organization [facility] Address [address] [place] [address] Care Team Providers Care Acid Correction Hand Name Role Phone [facility] Primary Care Provider [phone] Allergies Active Allergy Reactions Criticality Noted Date Comments Codeine Unknown 06/09/2024 Medications acetaminophen (TYLENOL) 325 mg tablet Take 2 tablets (650 mg total) by mouth every 6 hours as needed for pain. 240 tablet 06/14/19 25 1:54 PM EDT Active atorvastatin (LIPITOR) 80 mg tablet Take 1 tablet (80 mg total) by mouth once a day. 30 tablet 06/14/19 25 1:54 PM EDT 025 Active buPROPion XL (WELLBUTRIN XL) 150 mg tablet Take 1 tablet (150 mg total) by mouth once a day. 30 tablet 025 Active cloNIDine (CATAPRES) 0.1 mg tablet Take 1 tablet (0.1 mg total) by mouth 2 times a day. 60 tablet Active docusate sodium (COLACE) 100 mg capsule Take 1 capsule (100 mg total) by mouth 2 times a day as needed (Constipation from Opioid). 60 capsule 06/14/19 25 1:54 PM EDT 025 2024 Active DULoxetine [...] 30 tablet 06/14/19 1:54 PM EDT Active traZODone (DESYREL) 100 mg tablet Take 2 tablets (200 mg total) by mouth nightly. 60 tablet 06/14/19 1:54 PM EDT Active senna (SENOKOT) 8.6 mg tablet Take 1 tablet (8.6 mg total) by mouth once a day. 30 tablet 06/14/19 1:54 PM EDT Active QUEtiapine (SEROquel) 100 mg tablet Take 1 tablet (100 mg total) by mouth nightly. 30 tablet 2024 Active polyethylene glycol 3350 (MIRALAX) 17 [...] the mouth once a day. 30 tablet 2024 Discontinued(S top Taking at Discharge) oxyCODONE [...] mg / 4 tablets 28 tablet 06/14/19 25 1:54 PM EDT 025 2024 Active Problems [...] Bradycardia 06/10/2024 06/13/2024 Disorder of mediastinum 06/09/202406/01 Encounters Date Type Department Care Team Description 06/09/2024 7:19 PM EDT Anesthesia Event [facility] [address] [place] [id number] Shannen Mejia MD Altadonna, Antonino V., DO 06/09/2024 7:00 PM EDT - 06/09/2024 8:24 PM EDT Surgery [facility] [address] [place] [address] Kofi Gaytan MD INCISION AND DRAINAGE OF INFECTED POSTOPERATIVE WOUND, COMPLEX [77303 (CPT??)] 06/09/2024 4:50 PM EDT - 06/13/2024 2:26 PM EDT Hospital Encounter [facility] [address] [place] [address] Arie Fernandez MD Sungarian, Arno S, MD Faris, Khaldoun, MD Disorder of mediastinum (Primary Dx) Discharge Disposition: Home or Self Care () 06/09/2024 Orders Only [facility] - External Imaging [address] [id number] Radiology, External 06/09/2024 Orders Only [facility] - External Imaging [address] [place] [address] Radiology, External from Last 3 Months Social History Tobacco Use Types Packs/Day Years [...] 06/11/2024 9:00 AM EDT Plan of Treatment Health Maintenance Due Date Last Done Comments Cervical Cancer Screening 1961 Cologuard 1961 Colon Cancer Screening 1961 Colonoscopy 1961 FOBT / Fit Test 1961 HPV and Pap Smear 1961 Pap Smear 1961 Sigmoidoscopy 1961 Ophthalmology Exam 08/24/1971 Urine Microalbumin 08/24/1971 Mammogram 2001 Hepatitis B Vaccines (1 of 3 - Risk 3-dose series) 2021 RSV Vaccine (60+ years old a nd patients) (1 - Risk 60-74 years 1-dose series) 2021 Alcohol/Substance Use Screening 04/03/2024 Depression Screening and Follow-Up 04/03/2024 Social Drivers of Health April ual Screening 04/03/2024 Hemoglobin A1C 10/22/2024 04/24/2024 CT Lung Cancer Screening (Baseline) 06/09/2025 06/09/2024 Basic Metabolic Panel 06/12/2025 06/12/2024 , 06/11/2024, 06/10/2024, Additional history exists DTaP,Tdap,and Td Vaccines (3 - Td or Tdap) 01/17/2029 01/17/2019, 11/05/2014 Zoster Vaccines Completed 02/23/2021, 12/16/2020 HIV Screening Completed 09/08/2021, 09/08/2021 Pneumococcal Vaccine: 50+ Years Completed Hepatitis C Screening Completed 11/24/2021 Influenza Vaccine Completed 12/20/2023, , 12/24/2021, Additional history exists COVID-19 Vaccine Completed 01/31/2024, , 02/28/2022, Additional history exists Procedures * Due to [place] state law, [...] 06/09/2024 8:09 PM EDT Disorder of mediastinum [place] COMPLEX DRAINAGE, WOUND 06/09/2024 7:14 PM EDT [...] of17 resultswithin the time period is included. [facility] Signature Glucose, POCT 148(H) 70 - 99 mg/dL 06/13/2024 12:42 PM EDT [facility] Comment: The carpet installation specialist has not determined the efficacy of this test in Critically ill patients. ??[facility] defines Critically ill patients for the purpose [...] - DEVICE Final Result Performing Organization Address City/[facility] Co de Phone Number [facility] [address] [place] [address], [place] * (ABNORMAL) Smear Review (06/12/2024 3:36 AM EDT) Platelet Estimate Adequate Adequate 06/12/2024 4:12 AM EDT [facility] RBC Morphology Present(A) Normal, No clinically significant RBC morphology present ([facility] guidelines, 2015). 06/12/2024 4:12 AM EDT [facility] Anisocytosis 2+(A) Not Present 06/12/2024 4:12 AM EDT [facility] Hypochromia 2+(A) Not Present 06/12/2024 4:12 AM EDT [facility] Ovalocytes 2+(A) Not Present 06/12/2024 4:12 AM EDT [facility] Blood Structure of peripheral vein / Unknown Venipuncture / Unknown 06/12/2024 3:36 AM EDT 06/12/2024 3:42 AM EDT us Samreen VILLAGOMEZ LAB BLOOD ORDERABLES Fi nal Result Performing Organization Address City/[facility]/ZIP Co de Phone Number [facility] [address] [place] [address], [place] * (ABNORMAL) CBC Auto Differential (06/12/2024 3:36 AM EDT) Only the most recent of4 resultswithin the time period is included. WBC 7.2 3.8 - 10.8 10*3/uL 06/12/2024 4:12 AM EDT [facility] RBC 4.29 3.80 - 5.10 10*6/uL 06/12/2024 4:12 AM EDT [facility] Hemoglobin 11.9 11.7 - 15.5 g/dL 06/12/2024 4:12 AM EDT [facility] Hematocrit 38.3 35.0 - 45.0 % 06/12/2024 4:12 AM EDT [facility] MCV 89.3 80.0 - 100.0 fL 06/12/2024 4:12 AM EDT [facility] MCH 27.7 27.0 - 33.0 pg 06/12/2024 4:12 AM EDT [facility] MCHC 31.1(L) 32.0 - 36.0 g/dL 06/12/2024 4:12 AM EDT [facility] RDW 16.0(H) 11.0 - 15.0 % 06/12/2024 4:12 AM EDT [facility] Platelets 200 140 - 400 10*3/uL 06/12/2024 4:12 AM EDT [facility] MPV 9.9 7.5 - 12.5 fL 06/12/2024 4:12 AM EDT [facility] Neutrophil % 58.2 % 06/12/2024 4:12 AM EDT [facility] Immature Grans % 0.6 0.0 - 0.9 % 06/12/2024 4:12 AM EDT [facility] Lymphocyte % 31.6 % 06/12/2024 4:12 AM EDT [facility] Monocyte % 9.5 % 06/12/2024 4:12 AM EDT [facility] Eosinophil % 0.0 % 06/12/2024 4:12 AM EDT [facility] Basophil % 0.1 % 06/12/2024 4:12 AM EDT [facility] known [facility] Neutrophil # 4.19 1.50 - 7.80 10*3/uL 06/12/2024 4:12 AM EDT [facility] Immature Grans # 0.04(H) <=0.03 10*3/uL 06/12/2024 4:12 AM EDT [facility] Lymphocyte # 2.30 0.85 - 3.90 10*3/uL 06/12/2024 4:12 AM EDT [facility] (formerly known [facility] Monocyte # 0.70 0.20 - 0.95 10*3/uL 06/12/2024 4:12 AM EDT [facility] Eosinophil # <0.03 0.02 - 0.50 10*3/uL 06/12/2024 4:12 AM EDT [facility] ([facility] known [facility] Basophil # <0.03 0.00 - 0.20 10*3/uL 06/12/2024 4:12 AM EDT [facility] (formerly known as [facility]) [facility] nRBC % 0.0 /100 WBCs 06/12/2024 4:12 AM EDT [facility] nRBC # <0.01 <0.01 10*3/uL 06/12/2024 4:12 AM EDT [facility] Blood Structure of peripheral vein / Unknown Venipuncture / Unknown 06/12/2024 3:36 AM EDT 06/12/2024 3:42 AM EDT us Samreen VILLAGOMEZ LAB BLOOD ORDERABLES Fi nal Result [facility] ([facility] [address] [place] [address], [place] * Phosphorus (06/12/2024 3:36 AM EDT) Only the most recent of3 resultswithin the time period is included. Phosphorus 2.6 2.5 - 4.5 mg/dL 06/12/2024 4:11 AM EDT [facility] Blood Structure of peripheral vein / Unknown Venipuncture / Unknown 06/12/2024 3:36 AM EDT 06/12/2024 3:44 AM EDT Diamond Jerome MD LAB BLOOD ORDERABLES Final Res ult Performing Organization Address City/[facility] Co de Phone Number [facility] [address] [place] [address], * Magnesium (06/12/2024 3:36 AM EDT) Only the most recent of4 resultswithin the time period is included. MG 2.0 1.6 - 2.4 mg/dL 06/12/2024 4:11 AM EDT [facility] Blood Structure of peripheral vein / Unknown Venipuncture / Unknown 06/12/2024 3:36 AM EDT 06/12/2024 3:44 AM EDT Diamond Jerome MD LAB BLOOD ORDERABLES Final Res ult Performing Organization Address [facility] Co de Phone Number [facility] [address] [place] [address], * (ABNORMAL) Basic metabolic panel (06/12/2024 3:36 AM EDT) Only the most recent of4 resultswithin the time period is included. NA 141 135 - 145 mmol/L 06/12/2024 4:11 AM EDT [facility] K 4.0 3.5 - 5.3 mmol/L 06/12/2024 4:11 AM EDT [facility] Cl 107 98 - 107 mmol/L 06/12/2024 4:11 AM EDT [facility] CO2 24 22 - 32 mmol/L 06/12/2024 4:11 AM EDT [facility] BUN 15 7 - 23 mg/dL 06/12/2024 4:11 AM EDT [facility] Creatinine 0.71 0.50 - 1.20 mg/dL 06/12/2024 4:11 AM EDT [facility] Glucose 140(H) 65 - 99 mg/dL 06/12/2024 4:11 AM EDT [facility] Calcium 9.1 8.6 - 10.5 mg/dL 06/12/2024 4:11 AM EDT [facility] Anion Gap 10 5 - 15 06/12/2024 4:11 AM EDT [facility] eGFR >90 >=60 mL/min/1. 73m2 06/12/2024 4:11 AM EDT [facility] Comment:The estimated glomer ular filtration rate (eGFR) is calculated using a new formula developed by the NKF-ASN task force to eliminate race-based correction factors. The new formula uses serum/plasma creatinine, age, and gender to determine eGFR. A value below 60mls/min might indicate kidney disease and will be flagged. For additional information, see Margaux et al, Am J Kidney Dis. 2021;79(2):268- 288, A Unifying Approach for GFR estimation: Recommendations of the NKF-ASN Task Force on Reassessing the Inclusion of Race in Diagnosing Kidney Disease . Blood Structure of peripheral vein / Unknown Venipuncture / Unknown 06/12/2024 3:36 AM EDT 06/12/2024 3:44 AM EDT us Diamond Jerome MD LAB BLOOD ORDERABLES Final Res ult [facility] [address] [place] [address], * Vancomycin, Trough (06/11/2024 8:10 PM EDT) Vancomycin Trough 12.5 10.0 - 20.0 ug/mL 06/11/2024 8:44 PM EDT [facility] Comment: Before interpreting a drug level, check the time the dose was given in the MAR to ensure the level was drawn appropriately. 10-15 ug/mL: Empiric/Mild infections 15-20 ug/mL: Severe MRSA infection (pneumonia, meningitis, endocarditis) Blood Structure of peripheral vein / Unknown Venipuncture / Unknown 06/11/2024 8:10 PM EDT 06/11/2024 8:16 PM EDT us Diamond Jerome MD LAB BLOOD ORDERABLES Final Res ult [facility] [address] [place] [address], [place] * TRANSTHORACIC ECHO (TTE) COMPLETE (06/11/2024 9:35 [...] obtain the completed interpretation. ? Workstation ID: [id number] Up-to-date CT equipment and radiation dose reduction [...] anterior discectomy, arthrodesis, and implantation cage at [facility]. 06/09/24 wash out of post op hematom [...] C8 neural foramen (6:41). Resulting Agency Comment [id number] Procedure Note Milo Carrillo MD - 06/10/2024 EXAMINATION: CT of cervical spine without contrast TECHNIQUE: Helical volumetric CT acquisition of the cervical spine was performedwithout IV contrast. Multiplanar sagittal and coronal reformats performedon the acquisition console.. CLINICAL INFORMATION: 63 year old female reassess posterior mediastinalhematoma. Status post 06/04/24 C7-T1 anterior discectomy, arthrodesis, andimplantation cage at [facility]. 06/09/24 wash out of post ophematom COMPARISON: [...] possible to obtain thecompleted interpretation. Workstation ID: [id number] Up-to-date CT equipment and radiation dose reduction techniques wereemployed. CTDIvol: 21.4 mGy. DLP: 541 mGy-cm. Diamond Jerome MD IM CT PROCEDURES Final Result * MRSA/S aureus PCR, Nasal (06/10/2024 3:00 AM EDT) MRSA PCR, Nasal NOT DETECTED NOT DETECTED 06/10/2024 3:58 PM EDT [facility] S. aureus PCR, Nasal NOT DETECTED NOT DETECTED 06/10/2024 3:58 PM EDT [facility] Swab Nasal structure / Unknown Non-Blood Collection / Unknown 06/10/2024 3:00 AM EDT 06/10/2024 3:11 AM EDT [facility] - 06/10/2024 3:58 PM EDT [facility] Received Date:[id number] us Alla Bernard HEAD OF HISTORY LAB BODY FLUIDS AND STOOLS O RDERABLES Final Result [facility]AD[facility] WHITAKER [address], [place] [address], [place] [phone] Branded Online [facility] [address], [place] [address], [place] [phone] * ECG 12 lead (06/10/2024 2:15 AM EDT) Only the most recent of2 resultswithin the time period is included. Ventricular Rate EKG 44 BPM MUSE EKG Atrial Rate 44 BPM MUSE EKG IL Interval 134 ms MUSE EKG QRS Interval 84 ms MUSE EKG QT Interval 534 ms MUSE EKG QTC Interval 456 ms MUSE EKG P Dunlap 47 degrees MUSE EKG R Dunlap 19 degrees MUSE EKG T Wave Dunlap 39 degrees MUSE EKG 06/10/2024 2:15 AM EDT 06/18/2024 11:39 AM EDT Impressions MUSE EKG - 06/18/2024 11:39 AM EDT MARKED SINUS BRADYCARDIA ABNORMAL ECG WHEN COMPARED WITH ECG OF 09-JUN-2024 16:52, (UNCONFIRMED) VENT. RATE HAS DECREASED BY ??54 BPM Confirmed by Hira Garcia ([id number]) on 06/18/2024 11:39:10 AM Firearms Expert Dali FISCHER ECG ORDERABLES Final Resu lt MUSE EKG * X-Ray Chest 1 View [...] obtain the completed interpretation. ? Workstation ID: [id number] Narrative 06/10/2024 9:05 AM EDT COMPARISON: ??None FINDINGS AND Resulting Agency Comment [id number] Procedure Note Heriberto Johnston MD - 06/10/2024 [...] possible to obtain thecompleted interpretation. Workstation ID: [id number] us Alla Bernard HEAD OF HISTORY IMG XR PROCEDURES Final Resu lt * Tissue Exam (06/09/2024 8:09 PM EDT) Final Diagnosis Post Surgical Hematoma: - Organizing hemorrhage, consistent with clot. [facility] MANUAL 06/12/2024 9:18 AM EDT [facility] at 0918 EDT Clinical History Pre-op diagnosis: Disorder of mediastinum [J98.59] [facility] MANUAL 06/12/2024 9:18 AM EDT [facility] Gross Description 1. Other Received in formalin, labeled the patient's name, MRN, date of , and postsurgical hematoma , are multiple pink-red, irregular soft tissue fragments (5.0 x 4.5 x 1.5 cm in aggregate). The specimen is serially section, revealing a dark red, congealed cut surface, consistent with congealed blood clot. Rehab/Pre Vocational Counselor sections are submitted in cassette 1A. [facility] MANUAL 06/12/2024 9:18 AM EDT [facility] Gross Description User Grossing complete by Mayte Alas on 06/10/2024 10:01 AM [employer] MANUAL 06/12/2024 9:18 AM EDT [facility] Embedded Images [facility] MANUAL 06/12/2024 9:18 AM EDT [facility] (formerly known [facility] Resulting Agency Case was signed out at [facility], Department of Pathology, [employer] 3 CLIA [id number] [facility] MANUAL 06/12/2024 9:18 AM EDT [facility] (formerly known as [facility] Report Header Surgical Pathology Report ? Case: [id number] ? Authorizing Provider: ??Kofi Gaytan MD ? Collected: ? 06/09/2024 2009 ? Ordering Location: ? [facility] ? Received: ?06/10/2024914 ? [place] [place] ? Operating Room ? Pathologist: ? Kerry Rizvi MD ? Specimen: ?Other, Post surgical hematoma, Neck ? 06/12/2024 9:18 AM EDT [facility] Tissue Other / Unknown 06/09/2024 8 :09 PM EDT 06/10/2024 9:15 AM EDT Comment:Pre-op diagnosis: Disorder of mediastinum [J98.59] Kofi Gaytan MD LAB PATHOLOGY/CYTOLOGY ORDER LOULOU Final Result Performing Organization Address [facility] de Phone Number [facility] [address] [place] [address] AN[facility] PATH[facility] LABORATORY [address] [place] [address] * Type and Screen (06/09/2024 6:16 PM EDT) ABO Blood Type O 06/09/2024 7:02 PM EDT [facility] RH Type Positive 06/09/2024 7:02 PM EDT [facility] Expiration Date/Time 2024-06-12 23:59 06/09/2024 7:02 PM EDT [facility] Antibody Screen Negative 06/09/2024 7:02 PM EDT [facility] Blood Structure of peripheral vein / Unknown Venipuncture / Unknown 06/09/2024 6:16 PM EDT 06/09/2024 6:16 PM EDT Arie Fernandez MD LAB BLOOD BANK TEST ORDERABLES Edited Result - Final Performing Organization Address [facility] Co de Phone Number [facility] [address] [place] [address], * Concepcion Top (06/09/2024 5:17 PM EDT) Extra Tube Hold for add-ons. 06/09/2024 10:05 PM EDT [facility] Comment:Auto resulted. Blood Structure of peripheral vein / Unknown 06/09/2024 5:17 PM EDT 06/09/2024 5:17 PM EDT us Protocol Unv Adult Treatment LAB BLOOD ORDERA BLES Final Result [facility] [address] [place] [address], [place] * Protime-INR (06/09/2024 5:17 PM EDT) PT 12.3 9.6 - 12.4 Seconds 06/09/2024 5:57 PM EDT [facility] INR 1.2 0.9 - 1.1 06/09/2024 5:57 PM EDT [facility] Comment:The optimal therapeu tic INR range for patients treated with Vitamin K antagonists (VKAS, e.g., Warfarin) is 2.0 to 3.5. Discuss the desired range with your doctor/care team. Blood Structure of peripheral vein / Unknown 06/09/2024 5:17 PM EDT 06/09/2024 5:17 PM EDT us Arie Fernandez MD LAB BLOOD ORDERABLES Final Res ult [facility] [address] [place] [address], [place] * HEART & VASCULAR - SCANNED (06/09/2024) Anatomical Region Laterality Modality Other us Onbase Scan Suzi SCANNED PROCEDURES Final Resu lt from Last 3 Months Insurance [facility] [employer] [place] [id number] Advance Directives Documents on File Type Date Recorded Patient Rehab/Pre Vocational Counselor Expl anation Health Care Proxy 06/10/2024 12:45 PM - * Presumed Full Code (Latest Code Status on File) Date Activated Date Inactivated Comments 06/12/2024 2:57 AM 06/13/2024 4:32 PM * Presumed Full Code Date Activated Date Inactivated Comments 06/09/2024 9:26 PM 06/12/2024 2:57 AM Healthcare Agents on File Name Relationship Healthcare Agent Relationship Communication Farajamee Aguirre Daughter Next of Kin Aby Salmeron Spouse Health Care Agent Care Teams Acid Correction Hand Relationship Specialty Start Date End Date Mason Ashanti [address] [place] [id number] PCP - General 06/09/24
--- NOTE | 2024-07-12 07:25 | MHC.OFFVIS ---
Vital Signs 07/12/24 07:26 07/12/24 07:29 Height 5 ft 3 in 5 ft 3 in Weight 165 lb 165 lb BMI 29.2 29.2 BP 109/55 L Blood Pressure Location Lt brachial Lt brachial Position Sitting Sitting Pulse 87 Pulse Oximetry (%) 95 Oxygen Delivery Method Room Air Room Air Intake Visit Reasons: 3 month follow up cirrhosis Intake Note: Patient follow up for abdominal bloating and lab results. Patient cc: abdominal pain/bloating, acid reflux, constipation. Denies any other GI issues for today. 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 Accompanied by: Self / Same As Patient Allergies oxycodone [Percocet] Allergy (Intermediate, Verified 07/12/24 07:28) Itching Vicodin Allergy (Intermediate, Uncoded 05/01/24 13:53) itching Medication List - Last Reconciled 07/12/24 by Holland Bautista MD albuterol sulfate 90 mcg/actuation 2 puffs inhalation Q4-6H PRN atorvastatin 80 mg PO BEDTIME blood sugar diagnostic As directed blood-glucose meter (FreeStyle [place] Lite kit) As directed bupropion HCl XL 150 mg PO QAM cholecalciferol (vitamin D3) (Vitamin D3) 50 mcg PO DAILY clonidine HCl 0.1 mg PO BID docusate sodium (Colace) 100 mg PO BID dulaglutide (Trulicity) 0.75 mg subcut QWEEK duloxetine 60 mg PO DAILY 30 days uwxteawmqhi-cceqpnkhq-lppiekfr 200-62.5-25 mcg (Trelegy Ellipta) 1 inh inhalation DAILY 30 days hydromorphone (Dilaudid) 1/2 tablet po q4 hours prn pain; Partial Fill upon patient request. hydroxyzine HCl 10 mg PO TID PRN inhalational spacing device (Compact Space Chamber) As directed lancets (TRUEplus Lancets) As directed omeprazole 20 mg PO BID 90 days ondansetron 4 mg PO Q8H PRN 30 days quetiapine 100 mg PO BEDTIME risperidone 1 mg PO BEDTIME simethicone (Gas Relief (simethicone)) 125 mg PO BID-QID PRN 30 days vitamin E (dl, acetate) 45 mg PO DAILY HPI HPI 3 month follow up cirrhosis: Details: GI CLINIC VISIT FOR THIS 63-YEAR-OLD FEMALE FOR FOLLOW-UP OF GERD, HEPATIC STEATOSIS COMPLICATED BY EARLY CIRRHOSIS AND DIVERTICULOSIS. CHRONIC ILLNESSES: Fibromyalgia, DJD, cervical spondylosis, depression and DM. ? TODAY'S VISIT Patient cc: Patient cc: abdominal pain/bloating, acid reflux, constipation. Had neck surgery end of June at [facility] for a herniated disc which was complicated by a hematoma requiring a 2nd surgery. Still has trouble speaking and symptoms are slowly improving Denies any change in symptoms - has been following a FODMAP diet. Pt avoids milk products - likely has lactose intolerance Continues to have constipation and taking senna twice daily with partial improvement. Abd pain has improved. PAST VISIT: Complains of intermittent 8/10 lower abdominal pain radiating to the back No change in abd pain after eating or after she has a BM. Appetite fluctuates depending on the day. Wt has been stable over the past 6 weeks. Has been eating poorly - will take a few spoonfuls and unable to eat and starts gagging - lost 30 lbs since Apr, 2023 Constipation is good - taking Linzess. Intermittent diarrhea. Stopped taking muscle relaxant (tizanidine) Continues to have dysphagia and waiting for EGD and Colon appt. Constipation is OK and having a BM every other day to every 2 days Has gained 25 lbs - has ankle edema. 11/2021 Pt seen at [facility] and transferred to [facility] for bowel ischemia: CT scan showed: 1. Findings compatible with ischemia of the rectosigmoid colon evidence by pneumatosis, adjacent pericolonic venous gas, and portal venous gas. No intra-abdominal free air is suggest perforation. 2. Multiple mildly dilated small bowel loops throughout the abdomen without discrete transition consistent with ileus. 3. Hepatomegaly and findings suggesting underlying hepatic fibrosis/cirrhosis. Had a lousy summer - two surgeries on the lower back (cyst on the right side in September and 4 cysts on the right side in Feb) Transferred to [facility] for urgent exploratory lap for bacteria in the intestine - per patient - everything was dying No intestinal resection was performed. Is feeling better and lost some weight. Complains of constipation - BM every 3 days. Continues to have intermittent heartburn and dysphagia to solid food every other day. Hospitalized x 2 in jan and Feb, 2021 - diagnosed with COPD and on Home O2 (2 litres/min) and doing pulmonary rehab. Heartburn and nausea is still making her sick. Doing Ok - continues to have gas, bloating, abdominal pain 4-5 days/week and lasts 1/2 a day. Has diarrhea 4 days per week and constipation 2 days per week Notes more pain when she has diarrhea Denies change in abdominal pain with BM or passage of gas. Started seeing Dr Boone since she has trouble peeing - started on a medication which did not work. Now on a 2nd medication which is helping partially. Lab results were reviewed with the patient Intentional wt loss of 12 lbs followed by improvement in LFTs. Planning to celebrate her Mom's 80th BD this year with sister from [place]. And plans to travel to [place] next year LABS IN [place]:?05/18/19 reviewed, inr 1.1 ? 12/19 liver fibrosis score was 0.50 and liver fibrosis stage was F2 ? IMAGING STUDIES: 01/22 ABD US SHOWED: LIVER: The liver is normal in size. There is prominence of the left lobe and caudate lobe and slightly irregular contour of the liver suggestive of mild cirrhosis. Parenchymal echogenicity is normal. No focal hepatic lesion. There is no intrahepatic biliary duct dilatation seen. The main portal vein is patent with appropriate hepatopedal flow. GALLBLADDER: Surgically absent. 08/06/[address] SCAN SHOWED: ? Enlarged fatty liver with changes of mild cirrhosis. Diverticulosis and ? large amount of stool in the colon suggestive of constipation. ? Prominent pelvic vessels questionable for pelvic congestion. Abdominal wall hernias. 09/24/19 Gastric Emptying Study showed: ? Retention in the stomach at each time interval was: ? 1 hour 74% (normal 37%-90%) ? 2 hours 32% (normal 30%-60%) ? 3 hours 5% ? 4 hours (Not Obtained) (normal 0%-10%) ?06/19 ABD US SHOWED: ? IMPRESSION: ? 1. There is generalized increase in hepatic echotexture, consistent with fatty infiltration or hepatocellular disease. ? Please correlate clinically. ? No focal hepatic mass or intrahepatic biliary dilatation is seen. ? 2. There is a diminished periportal lymph node, as above. ?ENDOSCOPIC PROCEDURES: 10/18/22 EGD AND COLON SHOWED: ESOPHAGUS: Tortuous esophagus with increased tertiary contractions without stricture or ring. GE junction at 38 cms. A 1 cms tongue of possible Jackson's - biopsies were obtained. Esophageal balloon dilation was performed with a 20 mm (60 F) CRE balloon x 60 seconds. STOMACH: Mild gastritis Colonoscopy Findings: One medium sized polyp removed Random biopsies were obtained from right and left colon to check for microscopic colitis Moderate diverticulosis seen in the entire colon, left > right Moderate hemorrhoids on retroflexed exam. Plan: Patient has an appointment on 12/29/22 in the GI Clinic with Holland Bautista M.D. Repeat Colonoscopy interval based on path results - in 3 years if polyps are adenomatous and 10 years if polyps are hyperplastic BIOPSIES SHOWED: A. Gastroesophageal junction, biopsy: Squamocolumnar mucosa with mild acute and chronic inflammation; negative for intestinal metaplasia and dysplasia. B. Colon, ascending, polyp: Tubular adenoma; negative for high-grade dysplasia and carcinoma. C. Colon, right, biopsy: Colonic mucosa with scattered pigmented lamina propria macrophages suggesting melanosis coli, otherwise no specific change; no evidence of microscopic colitis. D. Colon, left, biopsy: Colonic mucosa with scattered pigmented lamina propria macrophages suggesting melanosis coli, otherwise no specific change; no evidence of microscopic colitis. 03/30/21 EGD SHOWED: STOMACH: Antral gastritis with a single 1-2 mm pre-pyloric erosion DUODENUM: Normal -biopsied to check for celiac sprue biopsies showed: A.? Small bowel, biopsy:? Small intestinal mucosa within normal limits; negative for celiac disease. B.? Stomach, biopsy:? Reactive gastropathy with background chronic active inflammation; no Helicobacter organisms seen. 07/30/19 EGD AND COLONOSCOPY SHOWED: ? ESOPHAGUS: Changes suggestive of esophageal motility disorder ? STOMACH: Gastritis ? Colonoscopy Findings: ? No polyps were detected, random biopsies were obtained from the colon. ? Moderate diverticulosis seen in the entire colon ? Moderate hemorrhoids on retroflexed exam. ? Plan: ? Patient has an appointment on 08/15/19 in the GI Clinic with Holland Bautista M.D. ? Repeat Colonoscopy interval based on path results - in 3 years due to past history of ? multiple adenomatous polyps. ?BIOPSIES SHOWED: ? A. Small bowel, biopsy: Duodenal mucosa with focal mildly increased ? intraepithelial lymphocytes and perserved villous architecture. See comment. ? B. Stomach, antrum, biopsy: Antral-type mucosa with mild chronic inactive ? inflammation; no Helicobacter organisms seen. ? C. Esophagus, proximal, biopsy: Squamous epithelium within normal limits; no ? inflammation seen; diagnostic features of eosinophilic esophagitis not seen. ? D. Colon, random, biopsy: Colonic mucosa within normal limiTS PFSH Medical History Cervical cancer Back pain GERD (gastroesophageal reflux disease) Seizures Oxygen dependent Murmur HTN (hypertension) Witnessed seizure-like activity Dysuria Memory impairment Sleep apnea Ischemic colitis Hyperkalemia Frequent falls Dysphagia Arthritis Tremor of both hands Aortic valve stenosis Kidney disease Hyperlipidemia Fatty liver CHF (congestive heart failure) Obesity Bacteremia ELIZABET (acute kidney injury) Encephalopathy UTI (urinary tract infection) Frequent falls Acute exacerbation of chronic obstructive airways disease Urinary retention with incomplete bladder emptying Steatohepatitis IBS (irritable bowel syndrome) History of colon polyps Dysphagia, pharyngoesophageal phase GERD without esophagitis Hx of hereditary disease Diabetes mellitus Depression Fibromyalgia Surgical History Hx of fusion of cervical spine Hx of abdominal surgery History of back surgery History of esophagogastroduodenoscopy (EGD) S/p total knee replacement, bilateral Hx of tubal ligation Hx of cholecystectomy Hx of endoscopy History of colonoscopy Family History Father History of heart attack Hx of type 1 diabetes mellitus Mother Alive and well Social History Household Members: Significant Other Housing: Apartment Are you a primary resident care coordinator to a significant other at home: No Do you presently have visiting nurse or other home services: 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) Alcohol intake: former Patient Tobacco Use Status: Former Tobacco user Tobacco use type: Cigarette Cigarette Packs Per Day: 0.5 Cigarettes Per Day: 10.0 Years Smoked: 25 yrs Second Hand Smoke Exposure: No Advance Directives Date on File: 10/20/20 service: No Current occupational status: unemployed Review of Systems Const All systems reviewed & are unremarkable except as noted in HPI and below Physical Exam Vital Signs: Last Vital Signs Pulse 87 07/12/24 07:29 BP 109/55 L 07/12/24 07:29 Pulse Ox 95 07/12/24 07:29 Oxygen Delivery Method Room Air 07/12/24 07:29 BMI result Body Mass Index 29.2 Const General: healthy appearing and no acute distress Nutritional Appearance: overweight Orientation/consciousness: patient oriented x3 Limitations: ambulation with cane HEENT Head: Yes normal to inspection Ears: hearing grossly normal bilaterally Eyes Sclerae: sclerae normal Pupils: Equal, round and reactive pupils present Neck Neck: Yes normal visual inspection Chest Chest palpation & inspection: normal inspection of the chest Resp Effort & Inspection: normal respiratory effort Auscultation: clear to auscultation bilaterally Cardio Palpation: normal PMI Rate: regular rate Rhythm: regular rhythm Heart sounds: S1 normal heart sound present, S2 normal heart sound present and no murmurs GI Palpation (GI): Soft to palpation, nontender and No hepatosplenomegaly present Auscultation: normal bowel sounds Rectal Exam - Female: deferred Skin General skin exam: no rashes or lesions noted Neuro General: patient oriented x3, gait normal and moves all extremities Cranial nerves: Yes Equal, round and reactive pupils present Psych Appearance: grossly normal Mental Status: mental status grossly normal Assessment & Plan Assessment & Plan (1) GERD without esophagitis: Code(s): K21.9 - Gastro-esophageal reflux disease without esophagitis Category: Medical (2) Dysphagia, pharyngoesophageal phase: Comment: No stricture or ring noted on EGD - likely due to esophageal motility disorder Code(s): R13.14 - Dysphagia, pharyngoesophageal phase Category: Medical (3) History of colon polyps: Comment: 07/21 Colonoscopy showed moderate diverticulosis in the entire colon and hemorrhoids and no polyps. Repeat colonoscopy in 3 years - due July 2022 Code(s): Z86.010 - Personal history of colon polyps Category: Medical (4) IBS (irritable bowel syndrome): Comment: With diarrhea and constipation Code(s): K58.9 - Irritable bowel syndrome, unspecified Category: Medical (5) Cirrhosis: Code(s): K74.60 - Unspecified cirrhosis of liver Category: Medical (6) Nausea: Code(s): R11.0 - Nausea Category: Medical (7) Abdominal bloating: Code(s): R14.0 - Abdominal distension (gaseous) Category: Medical Plan 63 YF with fibromyalgia, DJD, cervical spondylosis, depression and DM followed in GI for GERD, dysphagia and a history of adenomatous colon polyps. Patient had a fatty liver on past ultrasound. 12/19 liver fibrosis score was 0.50 and liver fibrosis stage was F2. 07/21 EGD showed gastritis and changes suggestive of esophageal motility disorder Colonoscopy showed moderate diverticulosis in the entire colon and hemorrhoids and no polyps 09/2019 A gastric emptying study was normal. Patient was advised to continue omeprazole 20 mg twice daily and dicyclomine 20 mg twice daily. She was advised a trial of gluten free diet for symptoms of IBS with partial improvement in her symptoms. Patient was advised further evaluation with lab and stool tests and an abdominal CT scan to rule out IBD causing abdominal pain and diarrhea. 11/2021 CT scan showed early cirrhosis. Patient was started on linaclotide 145 mcg daily for constipation and advised to stop dicyclomine since it was not helpful REDUCING THE RISK OF LIVER PROGRESSION:??patient was advised to completely avoid use of alcohol and lose weight. Being obese puts her at risk of progressive steatotic liver injury and she needs to try to lose 10% of her body weight. She should restrict the calorie intake, most importantly intake of sugar /sucrose/fructose ?HCC SURVEILLANCE:?? the patient is at risk of developing hepatocellular carcinoma given the presence of cirrhosis and need 6 monthly imaging surveillance with either abdominal ultrasound (US) or multiphase cross-sectional imaging (CT or MRI).? Last Abd CT SCAN in 02/2024 had shown no focal liver lesions suspicious of HCC.? She will be scheduled for follow-up? liver ultrasound in 6 months for ongoing surveillance.? QUESTION OF LIVER TRANSPLANTATION:?? As pt has never had any hepatic decompensation, and continues to have good hepatic synthetic function with meld score of 9, liver transplantation does not need to be considered at this?time 10/18/22 EGD (dysphagia) and colonoscopy was performed and results as noted. Repeat colon advised in 3 yrs (due 10/2025) 02/16/24 Complains of nausea, lower abdominal pain and wt loss Constipation is good - taking Linzess. Intermittent diarrhea. Pt advised trail of simethicone and ondansetron 04/05/24 Pt advised to check a UA to rule out UTI causing nausea [employer] of FODMAP diet for bloating 07/12/24 Denies any change in symptoms - has been following a FODMAP diet. Pt avoids milk products - likely has lactose intolerance Abd pain has improved. Schedule an abd us for HCC surveillance Start Linzess 72 mcg daily for constipation FU in 3 months Orders: Orders US abdomen limited Today K74.60 - Unspecified cirrhosis of liver Vitamin B12 and Folate Today K74.60 - Unspecified cirrhosis of liver Bilirubin Total Today K74.60 - Unspecified cirrhosis of liver Bilirubin Direct Today K74.60 - Unspecified cirrhosis of liver Immunoglobulin A Today K74.60 - Unspecified cirrhosis of liver Medications: New sennosides-docusate sodium 8.6-50 mg (Senna with Docusate Sodium) Please take every other day at bedtime 1 tab-cap PO BID 90 days 180 tabs 1RF linaclotide (Linzess) 72 mcg PO QAM 30 days 30 caps 3RF K59.09 - Other constipation Refilled omeprazole 20 mg PO BID 90 days 180 tabs 1RF K21.9 - Gastro-esophageal reflux disease without esophagitis simethicone (Gas Relief (simethicone)) 125 mg PO BID-QID 30 days PRN 90 caps 1RF abdominal distention R14.0 - Abdominal distension (gaseous) ondansetron 4 mg PO Q8H 30 days PRN 60 tabs 3RF nausea and vomiting R11.0 - Nausea Coding Level of Care Code Est Pt Level 4 (54764) Diagnoses GERD without esophagitis K21.9 Dysphagia, pharyngoesophageal phase R13.14 History of colon polyps Z86.010 IBS (irritable bowel syndrome) K58.9 Cirrhosis K74.60 Nausea R11.0 Abdominal bloating R14.0 Time Spent (min) 22
[2024-07-12 07:26] VITALS: BMI 29.2
[2024-07-12 07:29] VITALS: BP 109/55; PULSE 87; O2SAT 95; BMI 29.2
== END 2024-07-12 08:04 | disposition home or self-care (01) ==
LOC: HO.HGI 07:11
PROVIDERS: PCP Registered Nurse; Visit Provider Internal Medicine Gastroenterology
DX: K21.9 Gastro-esophageal reflux disease without esophagitis (principal); R13.14 Dysphagia, pharyngoesophageal phase; Z86.0100 Personal history of colon polyps, unspecified; K58.9 Irritable bowel syndrome, unspecified; K74.60 Unspecified cirrhosis of liver; R11.0 Nausea; R14.0 Abdominal distension (gaseous)
CPT/HCPCS: 99214

== ENCOUNTER → 2024-07-12 07:10 | Outpatient (BNVA) | payer OTHER, SELFPAY | PROVIDERS: PCP Registered Nurse; Visit Provider Internal Medicine Gastroenterology | DX: K21.9 Gastro-esophageal reflux disease without esophagitis (principal); K58.9 Irritable bowel syndrome, unspecified; K74.60 Unspecified cirrhosis of liver; R13.14 Dysphagia, pharyngoesophageal phase; R11.0 Nausea; R14.0 Abdominal distension (gaseous); Z86.0100 Personal history of colon polyps, unspecified | CPT/HCPCS: 99212 ==

== ENCOUNTER 2024-08-08 20:45 | Emergency (ER) | payer OTHER, SELFPAY ==
--- NOTE | ~2024-08-08 | CT_ITS ---
CLINICAL HISTORY: lower abdominal pain? diverticulitis enteritis CT abdomen and pelvis without contrast Comparison: CT/SR - CT ABDOMEN PELVIS WO IV CON - 02/07/24 19:01 EST Findings: No consolidation or effusion. Nodular contour of the liver consistent with hepatic cirrhosis. Status post cholecystectomy. The kidneys, spleen, adrenals and pancreas are normal. Severe diffuse colonic diverticulosis. Significant wall thickening in the splenic flexure with adjacent fat stranding. No abscess. No intraperitoneal free air. Pelvic contents unremarkable. Normal appendix. Chronic T8 compression fracture. Prior L2 vertebral augmentation. Posterior fusion hardware spanning L4-L5. IMPRESSION: 1. Acute uncomplicated diverticulitis in the splenic flexure. 2. Hepatic cirrhosis. This document has been electronically signed by: Milo Gillette MD on 08/08/2024 22:38:44
[2024-08-08 20:52] VITALS: BP 112/75; BP 98/48; PULSE 101; PULSE 112; RESP 16; TEMP 36.9; O2SAT 92; BMI 30.1
--- NOTE | 2024-08-08 21:03 | ED_ITS ---
HPI - Abdominal Pain General Chief Complaint: Abdominal Pain Stated Complaint: nausea, diarrhea, abd pain Time Seen by Provider: 08/08/24 21:03 Source: patient Mode of arrival: ambulatory Limitations: no limitations History of Present Illness ED Provider: HPI narrative: patient comes here for lower abdominal pain for last 2 days with nausea vomiting and diarrhea had 4 5 times of vomiting about 8 times of watery stool today no fever no chills, stools were watery no blood in stool Related Data Home Medications ?Medication ?Instructions ?Recorded ?Confirmed blood sugar diagnostic #10 ea 06/25/20 07/12/24 blood-glucose meter (FreeStyle #1 ea 03/02/21 07/12/24 Lucinda Lite kit) inhalational spacing device #1 ea 03/02/21 07/12/24 (Compact Space Chamber) lancets 33 gauge (TRUEplus Lancets) #100 ea 03/02/21 07/12/24 bupropion HCl 150 mg 24 hr tablet, 150 mg PO QAM 04/19/23 07/12/24 extended release atorvastatin 80 mg tablet 80 mg PO BEDTIME 01/30/24 07/12/24 clonidine HCl 0.1 mg tablet 0.1 mg PO BID 01/30/24 07/12/24 quetiapine 100 mg tablet 100 mg PO BEDTIME 01/30/24 07/12/24 risperidone 0.25 mg tablet 1 mg PO BEDTIME 01/30/24 07/12/24 vitamin E (dl, acetate) 45 mg (100 45 mg PO DAILY 01/30/24 07/12/24 unit) capsule dulaglutide 0.75 mg/0.5 mL 0.75 mg subcut QWEEK 05/01/24 07/12/24 subcutaneous pen injector (Trulicity) cholecalciferol (vitamin D3) 50 50 mcg PO DAILY 05/23/24 07/12/24 mcg (2,000 unit) capsule (Vitamin D3) hydroxyzine HCl 10 mg tablet 10 mg PO TID PRN Anxiety 05/23/24 07/12/24 Previous Rx's ?Medication ?Instructions ?Recorded albuterol sulfate 90 mcg/actuation 2 puff inhalation Q4-6H PRN 10/07/20 aerosol inhaler shortness of breath or wheezing #8.5 grams fluticasone fur. 200 mcg-umeclid 1 inh inhalation DAILY 30 days #1 01/19/21 62.5 mcg-vilant 25 mcg ea inhalat.powder (Trelegy Ellipta) duloxetine 60 mg capsule,delayed 60 mg PO DAILY 30 days #30 caps 07/25/23 release docusate sodium 100 mg capsule 100 mg PO BID #20 caps 06/04/24 (Colace) hydromorphone 4 mg tablet See Rx Instructions .Route 06/04/24 (Dilaudid) .COMPLEX PRN pain #20 tabs linaclotide 72 mcg capsule 72 mcg PO QAM 30 days #30 caps 07/12/24 (Linzess) omeprazole 20 mg tablet,delayed 20 mg PO BID 90 days #180 tabs 07/12/24 release ondansetron 4 mg disintegrating 4 mg PO Q8H PRN nausea and 07/12/24 tablet vomiting 30 days #60 tabs sennosides 8.6 mg-docusate sodium 1 tab-cap PO BID 90 days #180 tabs 07/12/24 50 mg tablet (Senna with Docusate Sodium) simethicone 125 mg capsule (Gas 125 mg PO BID-QID PRN abdominal 07/12/24 Relief (simethicone)) distention 30 days #90 caps ciprofloxacin HCl 500 mg tablet 500 mg PO BID #20 tabs 08/09/24 (Cipro) metronidazole 500 mg tablet 500 mg PO TID #30 tabs 08/09/24 ondansetron 4 mg disintegrating 4 mg PO Q6-8H PRN nausea and 08/09/24 tablet vomiting #7 tabs Allergies Allergy/AdvReac Type Severity Reaction Status Date / Time oxycodone [Percocet] Allergy Intermediate Itching Verified 08/08/24 20:53 Vicodin Allergy Intermediate itching Uncoded 08/08/24 20:53 [facility] Past Medical History Medical History Cervical cancer Back pain GERD (gastroesophageal reflux disease) Seizures Oxygen dependent Murmur HTN (hypertension) Witnessed seizure-like activity Dysuria Memory impairment Sleep apnea Ischemic colitis Hyperkalemia Frequent falls Dysphagia Arthritis Tremor of both hands Aortic valve stenosis Kidney disease Hyperlipidemia Fatty liver CHF (congestive heart failure) Obesity Bacteremia ELIZABET (acute kidney injury) Encephalopathy UTI (urinary tract infection) Frequent falls Acute exacerbation of chronic obstructive airways disease Urinary retention with incomplete bladder emptying Steatohepatitis IBS (irritable bowel syndrome) History of colon polyps Dysphagia, pharyngoesophageal phase GERD without esophagitis Hx of hereditary disease Diabetes mellitus Depression Fibromyalgia Surgical History Hx of fusion of cervical spine Hx of abdominal surgery History of back surgery History of esophagogastroduodenoscopy (EGD) S/p total knee replacement, bilateral Hx of tubal ligation Hx of cholecystectomy Hx of endoscopy History of colonoscopy Family History Family History Father History of heart attack Hx of type 1 diabetes mellitus Mother Alive and well Social History Social History Household Members: Significant Other Housing: Apartment Are you a primary direct care provider to a significant other at home: No Do you presently have visiting nurse or other home services: Yes ([employer]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) Alcohol intake: former Patient Tobacco Use Status: Former Tobacco user Tobacco use type: Cigarette Cigarette Packs Per Day: 0.5 Cigarettes Per Day: 10.0 Years Smoked: 25 yrs Smoked in Last 30 Days: No Second Hand Smoke Exposure: No Use of substances other than those prescribed or required for medical reasons: No Advance Directives: Yes Advance Directives on File: Yes Advance Directives Date on File: 10/20/20 Do you have a plan to hurt others: No Plan Patient : No service: No Current occupational status: unemployed Physical Exam ED Vital Signs: Vital Signs - 24 hr 08/09/24 00:34 08/09/24 00:36 Temperature 98.6 F 98.6 F Pulse Rate 99 99 Respiratory Rate 20 20 Blood Pressure 97/59 L 97/59 L Pulse Oximetry 92 92 Oxygen Delivery Method Room Air Room Air BMI result Body Mass Index 30.1 Appearance: Alert. Oriented X3. No acute distress. Eyes: no pallor or icterus ENT: Pharynx normal. Oral Mucosa moist Neck: Normal inspection. Neck supple. CVS: Normal heart rate and rhythm. Pulses normal. Respiratory: No respiratory distress. Equal air entry bilateral, no wheezing/rales/rhonchi Abdomen: Soft and diffuse lower abdominal tenderness left more than the right slight guarding no rebound tenderness Bowel sounds are present, no mass palpable, no CVA tenderness Skin: Skin warm and dry. Normal skin color. Normal skin turgor. Extremities: No lower extremity edema. No calf tenderness Neuro: Oriented X 3. No motor deficit. No sensory deficit.No cerebellar signs , cranial nerves II-XII intact Medical Decision Making Medical Decision Making [facility] Narrative: Patient's lower abdominal pain with nausea vomiting and diarrhea workup showed uncomplicated diverticulitis stable labs will prescribe patient Flagyl and Cipro advised clear liquids advanced slowly Lab Data [facility] Lab Attestation statement: I reviewed the patient's lab results. 08/08/24 21:16 08/08/24 21:16 Labs: Lab Results 08/08/24 08/08/24 Range/Units 21:16 21:41 WBC 10.9 H (4.8-10.8) X10*3/uL RBC 4.42 (4.20-5.50) X10*6/uL Hgb 12.3 (12.0-16.0) g/dl Hct 37.6 (37.0-47.0) % MCV 85.1 (80.0-98.0) fL MCH 27.8 (27.0-33.0) pg MCHC 32.7 (31.0-35.0) g/dl RDW 15.8 (11.0-16.0) % Plt Count 230 (160-400) X10*3/uL MPV 9.4 (9.4-12.3) fL Immature Gran % (Auto) 0.4 (0.0-0.4) % Neut % (Auto) 57.0 (45-73) % Lymph % (Auto) 27.5 (20-40) % Bollinger % (Auto) 14.2 H (2-11) % Eos % (Auto) 0.4 (0-4) % Baso % (Auto) 0.5 (0-2) % Lymph # (Auto) 3.0 (1.2-4.9) X10*3/uL Bollinger # (Auto) 1.5 H (0.1-1.2) X10*3/uL Eos # (Auto) 0.0 (0.0-0.4) X10*3/uL Baso # (Auto) 0.1 (0.0-0.2) X10*3/uL Abs Immat Gran (auto) 0.04 H (0.00-0.03) X10*3/uL Absolute Neuts (auto) 6.2 (2.0-8.3) x10*3/uL Absolute Nucleated RBC 0.000 (0.0-0.012) X10*3/uL Nucleated RBC % (auto) 0.0 (0.0-0.2) /100WBC Smear Tech's Comments VERIFIED Sodium 138 (135-145) mmol/L Potassium 3.3 (3.3-5.1) mmol/L Chloride 103 (96-108) mmol/L Carbon Dioxide 22 (22-29) mmol/L Anion Gap 16 (12-20) BUN 21 H (9-16) mg/dL Creatinine 0.63 (0.5-1.4) mg/dL Estim Creat Clear Calc 91.0 Estimated GFR > 60 Random Glucose 127 H (60-115) mg/dL Lactic Acid 1.2 (0.5-2.0) mmol/L Calcium 10.1 (8.4-10.2) mg/dL Total Bilirubin 1.3 H (0.0-1.0) mg/dL AST 25 (5-31) U/L ALT 15 (0-31) U/L Alkaline Phosphatase 133 H (39-117) U/L Total Protein 8.1 H (6.5-8.0) g/dL Albumin 4.1 (3.5-5.0) g/dL Lipase 20 (8-78) U/L Radiology Impression Discussion of test interpretation with radiology: I have reviewed the radiologist's reading. Medications Administered Discontinued Medications Generic Name Dose Route Start Last Admin Trade Name Freq PRN Reason Stop Dose Admin Sodium Chloride 1,000 mls @ 999 mls/hr 08/08/24 21:24 08/08/24 23:30 Ns IV 08/08/24 22:24 Infused .Q1H1M ONE Infusion Piperacillin Sod/Tazobactam 50 mls @ 100 mls/hr 08/08/24 23:22 08/09/24 00:32 Sod 3.375 gm/ Sodium Chloride IV 08/08/24 23:51 Infused ONCE ONE Infusion Morphine Sulfate 4 mg 08/08/24 21:24 08/08/24 21:49 Morphine Sulfate 4 Mg/Ml Cartridge IVPUSH 08/08/24 21:25 4 mg ONCE ONE Administration Protocol Ondansetron HCl 4 mg 08/08/24 21:24 08/08/24 21:48 Ondansetron Hcl 4 Mg/2 Ml Vial IVPUSH 08/08/24 21:25 4 mg ONCE ONE Administration Discharge Plan Discharge Clinical Impression: Acute diverticulitis Patient Disposition: Home, Self-Care Instructions: Diverticulitis (ED) Additional Instructions: drink plenty of fluids Antibiotic as prescribed have clear liquids advanced slowly as tolerated report to the ER if worsening of the pain/fever / blood in his stool Prescriptions: New ciprofloxacin HCl [Cipro] 500 mg tablet 500 mg PO BID Qty: 20 0RF metronidazole 500 mg tablet 500 mg PO TID Qty: 30 0RF ondansetron 4 mg tablet,disintegrating 4 mg PO Q6-8H PRN (Reason: nausea and vomiting) Qty: 7 0RF No Action albuterol sulfate 90 mcg/actuation HFA aerosol inhaler 2 puff inhalation Q4-6H PRN (Reason: shortness of breath or wheezing) Qty: 8.5 0RF cholecalciferol (vitamin D3) [Vitamin D3] 50 mcg (2,000 unit) Capsule 50 mcg PO DAILY hydroxyzine HCl 10 mg Tablet 10 mg PO TID PRN (Reason: Anxiety) docusate sodium [Colace] 100 mg capsule 100 mg PO BID Qty: 20 0RF hydromorphone [Dilaudid] 4 mg tablet See Rx Instructions .ROUTE .COMPLEX PRN (Reason: pain) Qty: 20 0RF Rx Instructions: 1/2 tablet po q4 hours prn pain; Partial Fill upon patient request. bupropion HCl 150 mg tablet extended release 24 hr 150 mg PO QAM duloxetine 60 mg Capsule,Delayed Release(Dr/Ec) 60 mg PO DAILY 30 Days Qty: 30 0RF (DME) blood sugar diagnostic Strip See Rx Instructions Not Applicable BID Qty: 10 Rx Instructions: As directed (DME) blood-glucose meter [FreeStyle Lucinda Lite] Kit See Rx Instructions .ROUTE .MEDSUPPLY Qty: 1 Rx Instructions: As directed (DME) Compact Space Chamber Spacer See Rx Instructions .ROUTE .MEDSUPPLY Qty: 1 Rx Instructions: As directed (DME) lancets [TRUEplus Lancets] 33 gauge misc See Rx Instructions Not Applicable BID Qty: 100 Rx Instructions: As directed Trelegy Ellipta 200-62.5-25 mcg blister with device 1 inh inhalation DAILY 30 Days Qty: 1 6RF atorvastatin 80 mg tablet 80 mg PO BEDTIME clonidine HCl 0.1 mg tablet 0.1 mg PO BID risperidone 0.25 mg tablet 1 mg PO BEDTIME quetiapine 100 mg tablet 100 mg PO BEDTIME vitamin E (dl, acetate) 45 mg (100 unit) capsule 45 mg PO DAILY omeprazole 20 mg tablet,delayed release (DR/EC) 20 mg PO BID 90 Days Qty: 180 1RF ondansetron 4 mg tablet,disintegrating 4 mg PO Q8H PRN (Reason: nausea and vomiting) 30 Days Qty: 60 3RF simethicone [Gas Relief (simethicone)] 125 mg capsule 125 mg PO BID-QID PRN (Reason: abdominal distention) 30 Days Qty: 90 1RF sennosides-docusate sodium [Senna with Docusate Sodium] 8.6-50 mg tablet 1 tab-cap PO BID 90 Days Qty: 180 1RF Rx Instructions: Please take every other day at bedtime Linzess 72 mcg capsule 72 mcg PO QAM 30 Days Qty: 30 3RF Trulicity 0.75 mg/0.5 mL pen injector 0.75 mg subcut QWEEK Patient Comments: patient takes on Sundays Interventions: ED Discharge Assessment Last Done: 08/09/24 00:36 Discharge Date/Time: 08/09/24 00:53 Print Language: Malagasy
[2024-08-08 21:25] LABS: Basophils Absolute Auto 0.1 X10*3/uL (0.0-0.2); Basophils Percent Auto 0.5 % (0-2); Eosinophils Percent Auto 0.4 % (0-4); Hematocrit 37.6 % (37.0-47.0); Hemoglobin 12.3 g/dl (12.0-16.0); Imm Gran Abs Auto 0.04 X10*3/uL (0.00-0.03); Imm Gran Pct Auto 0.4 % (0.0-0.4); Lymphocytes Percent Auto 27.5 % (20-40); MANUAL DIFF FLAG SCAN; Mean Corpuscular HGB Conc 32.7 g/dl (31.0-35.0); Mean Corpuscular Hemoglobin 27.8 pg (27.0-33.0); Mean Corpuscular Volume 85.1 fL (80.0-98.0); Mean Platelet Volume 9.4 fL (9.4-12.3); Monocytes Absolute Auto 1.5 X10*3/uL (0.1-1.2); Monocytes Percent Auto 14.2 % (2-11); Neutrophils Absolute Auto 6.2 x10*3/uL (2.0-8.3); Platelet Count 230 X10*3/uL (160-400); Red Blood Count 4.42 X10*6/uL (4.20-5.50); Red Cell Distribution Width 15.8 % (11.0-16.0); SCAN SMEAR FLAG 1; White Blood Count 10.9 X10*3/uL (4.8-10.8)
[2024-08-08 21:38] LABS: Alanine Aminotransferase 15 U/L (0-31); Albumin Level 4.1 g/dL (3.5-5.0); Alkaline Phosphatase 133 U/L (39-117); Anion Gap 16 (12-20); Aspartate Amino Transferase 25 U/L (5-31); Bilirubin Total 1.3 mg/dL (0.0-1.0); Blood Urea Nitrogen 21 mg/dL (9-16); Calcium 10.1 mg/dL (8.4-10.2); Carbon Dioxide 22 mmol/L (22-29); Chloride 103 mmol/L (96-108); Estimated Glomerular Filt Rate > 60; Glucose Random 127 mg/dL (60-115); Lipase 20 U/L (8-78); Potassium 3.3 mmol/L (3.3-5.1); Sodium 138 mmol/L (135-145); Total Protein 8.1 g/dL (6.5-8.0)
[2024-08-08 21:46] LABS: SLIDE REVIEW VERIFIED
[2024-08-08] MEDS: ondansetron HCL 4 MG/2 ML VIAL IVPUSH (21:48)
[2024-08-08 21:49] VITALS: RESP 18
[2024-08-08] MEDS: Morphine Sulfate 4 MG/ML CARTRIDGE IVPUSH (21:49)
[2024-08-08] MEDS: 0.9 % Sodium Chloride 1,000 ML 999 ML IV (21:49)
[2024-08-08 22:03] LABS: Lactic Acid 1.2 mmol/L (0.5-2.0)
[2024-08-08 22:06] VITALS: BP 122/73; PULSE 101; RESP 18; TEMP 36.2; O2SAT 92
--- OUTSIDE RECORDS SUMMARY | 2024-08-08 22:08 | XMS_ITS | Encounter Summary ---
Author Organization [employer] Address [address] [place] [address] 7[address] [place] [address] Care Team Providers Care Apartment Locator Name Role Phone Ashanti August [facility] Primary Care Provider [phone] Jeff Villarreal Unavailable Unavailable Encounter Details Date Type Department Care Team ([facility] Contact Info) Description 09/20/2022 Orders Only [facility] CH[facility] MED & PEDS [address] [place] [address] Elizabeth Meadows LPN Social History Tobacco Use [...] 1:15 PM EDT Office Visit [facility] MEDICINE [address] [place] [address] Ashanti August FNP [address] [place] [address] documented as of this encounter Visit Diagnoses Not on filedocumented in this encounter Additional Health Concerns Assessment Noted Time PHQ-9 Depression Total Score: 13 023 2:44 PM EST documented as of this encounter Care Teams Apartment Locator Relationship Specialty Start Date End Date Ashanti August FNP [address] [place] [phone] PCP - General Family Medicine 11/24/21 Jeff Villarreal FNP [address] [place] [address] Nurse Practitioner Family Medicine 02/20/23 documented as of this encounter
--- OUTSIDE RECORDS SUMMARY | 2024-08-08 22:08 | XMS_ITS | Encounter Summary ---
Author Organization [employer] Address [address] [place] [address] 7t [place] [address] Care Team Providers Care Fiber Product Cutting Machine Operator Name Role Phone [facility] Primary Care Provider [phone] Jeff Villarreal [facility] Unavailable Unavailable Reason for Visit * Reason Comments Med Refill Encounter Details Date Type Department Care Team ([facility] st Contact Info) Description 03/29/2024 Refill [facility] MEDICINE [address] [place] [address] [employer] [address] [place] [address] Primary hypertension Social History Tobacco Use Types [...] 1:15 PM EDT Office Visit [facility] MED[facility]INE [address] [place] [address] Ashanti August FNP [address] [place] [address] documented as of this encounter Visit Diagnoses Diagnosis Primary hypertension Unspecified essential hypertension documented in this encounter Additional Health Concerns Assessment Noted Time PHQ-9 Depression Total Score: 0 12/20/19 10:36 AM EDT documented as of this encounter Care Teams Fiber Product Cutting Machine Operator Relationship Specialty Start Date End Date Ashanti August FNP [address] [place] [address] PCP - General Family Medicine 11/24/21 Jeff Villarreal FNP [address] [place] [address] Nurse Practitioner Family Medicine 02/20/23 documented as of this encounter
--- OUTSIDE RECORDS SUMMARY | 2024-08-08 22:08 | XMS_ITS | Encounter Summary ---
Author Organization [employer] Address [address] [place] [address] 7t [place] [address] Care Team Providers Care Implementation Advisor Name Role Phone [facility] Primary Care Provider [phone] Jeff Villarreal Unavailable Unavailable Encounter Details Date Type Department Care Team (Late st Contact Info) Description 07/22/2022 Orders Only [facility] CHC MED & PEDS [address] [place], [place] [phone] Elizabeth Meadows LPN Social History Tobacco Use [...] Description 09/20/2024 1:15 PM EDT Office Visit [facility] MEDICINE [address] [place], [place] [phone] Ashanti August FNP [address] [place], [place] [phone] documented as of this encounter Visit Diagnoses Not on filedocumented in this encounter Additional Health Concerns Assessment Noted Time PHQ-9 Depression Total Score: 13 023 2:44 PM EST documented as of this encounter Care Teams Implementation Advisor Relationship Specialty Start Date End Date Ashanti August FNP [address] [place] [address] PCP - General Family Medicine 11/24/21 Jeff Villarreal FNP [address] [place] [address] Nurse Practitioner Family Medicine 02/20/23 documented as of this encounter
--- OUTSIDE RECORDS SUMMARY | 2024-08-08 22:08 | XMS_ITS | Encounter Summary ---
Author Organization [employer] Address [address] [place] [address] 7 [place] [address] Care Team Providers Care Book Binder Name Role Phone [facility] Primary Care Provider [phone] Jeff Villarreal [facility] Unavailable Unavailable Encounter Details Date Type Department Care Team (Late st Contact Info) Description 05/24/2023 Orders Only [facility] MEDICINE [address] [place] [address] [facility] [address] [place] [address] Social History Tobacco Use Types Packs/Day Years [...] Visit [facility] MEDICINE [address] [place] [address] [facility] [address] [place] [address] documented as of this encounter Procedures Procedure [...] EST Narrative 05/24/2023 2:51 PM EST ? [facility] ?[address] ?[place] [address] ? CT Scan Report ? Signed ? Patient: Salmeron,Sharri ?MR#: [id number] ?? 703 ? : 1960 ?Acct:[id number] ? Age/Sex: 62 / F ?ADM Date: 02/21/24 ? Loc: HO.ED ? Attending Dr: ? Ordering Physician: Tanmay Alvarado MD ?? Date of Service: 05/24/23 ?? Procedure(s): CT cervical spine wo IV con ?? Accession Number(s): [id number] ? cc: Tanmay Alvarado MD; Ashanti August [...] ? Signed By: ?<Electronically signed by Price Schililng MD in OV> ? 05/24/23 1447 ? DD/ 1331 ? TD/TT: ? Dry Kiln Worker: ? Procedure Note Gerson Carrion - 05/24/[address] [place] [address] [address] Scan Report Signed Patient: Allyson Salmeron#: [id number] 703 : 2Acct:[id number] Age/Sex: 62 / FADM Date: 05/24/23 Loc: HO.ED Attending Dr: Ordering Physician: Tanmay Alvarado MD Date of Service: 05/24/23 Procedure(s): CT cervical spine wo IV con Accession Number(s): [id number] cc: Tanmay Alvarado MD; TalentAshanti [facility] EXAMINATION: CT HEAD WITHOUT CONTRAST CLINICAL INFORMATION: [...] in OV> 05/24/23 1447 DD/ 1331 TD/TT: Dry Kiln Worker: [facility] External Provider IMG CT PROCEDURES Final Result * CT Head w/o Contrast (05/24/2023 1:31 PM EST) Anatomical Region Laterality Modality Head, Neck Computed Tomogra phy 05/24/2023 1:31 PM EST Narrative 05/24/2023 2:51 PM EST ? [facility] ?[address] ?[place] [address] ? CT Scan Report ? Signed ? Patient: Salmeron,Sharri ?MR#: [id number] ?? 703 ? : 1960 ?Acct:[id number] ? Age/Sex: 62 / F ?ADM Date: 05/24/23 ? Loc: HO.ED ? Attending Dr: ? Ordering Physician: Tanmay Alvarado MD ?? Date of Service: 05/24/23 ?? Procedure(s): CT head/brain wo IV con ?? Accession Number(s): [id number] ? cc: Tanmay Alvarado MD; Ashanti August [...] 1447 ? DD/ 1331 ? TD/TT: ? Dry Kiln Worker: ? Procedure Note Sheyla, Image - 05/24/[address] [address] [address] Scan Report Signed Patient: Allyson Salmeron#: [id number] 703 : 2Acct:[id number] Age/Sex: 62 / FADM Date: 05/24/23 Loc: HO.ED Attending Dr: Ordering Physician: Tanmay Alvarado MD Date of Service: 05/24/23 Procedure(s): CT head/brain wo IV con Accession Number(s): [id number] cc: Tanmay Alvarado MD; [facility] EXAMINATION: CT HEAD WITHOUT CONTRAST [...] in OV> 05/24/23 1447 DD/ 1331 TD/TT: Dry Kiln Worker: [facility] External Provider IMG CT PROCEDURES Final Result documented in this encounter Visit Diagnoses Not on filedocumented in this encounter Additional Health Concerns Assessment Noted Time PHQ-9 Depression Total Score: 7 04/13/19 8:57 AM EST documented as of this encounter Care Teams Book Binder Relationship Specialty Start Date End Date Ashanti August FNP [address] [place] [address] PCP - General Family Medicine 11/24/21 Jeff Villarreal FNP [address] [place] [address] Nurse Practitioner Family Medicine 02/20/23 documented as of this encounter
--- OUTSIDE RECORDS SUMMARY | 2024-08-08 22:08 | XMS_ITS | Encounter Summary ---
Author Organization [employer] Address [address] [place] [address] [address] [place] [address] Care Team Providers Care Broadcast Meteorologist Name Role Phone Ashanti August [facility] Primary Care Provider Jeff Villarreal Unavailable Unavailable Encounter Details Date Type Department Care Team (Late st Contact Info) Description 05/24/2022 Orders Only [facility] MEDICINE [address] [place] [phone] Isabel Escalante LPN Social History Tobacco Use [...] Description 09/20/2024 1:15 PM EDT Office Visit [facility] [address] [place] [phone] Ashanti August FNP [address] [place], [place] [phone] documented as of this encounter Visit Diagnoses Not on filedocumented in this encounter Additional Health Concerns Assessment Noted Time PHQ-9 Depression Total Score: 13 023 2:44 PM EST documented as of this encounter Care Teams Broadcast Meteorologist Relationship Specialty Start Date End Date Ashanti August FNP [address] [place] [address] PCP - General Family Medicine 11/24/21 Jeff Villarreal FNP [address] [place] [address] Nurse Practitioner Family Medicine 02/20/23 documented as of this encounter
--- OUTSIDE RECORDS SUMMARY | 2024-08-08 22:08 | XMS_ITS | Clinical Summary ---
Author Organization [facility] Address [address] [place] [address] Care Team Providers Care Personal Property Assessor Name Role Phone Ashanti August Primary Care Provider [phone] Surgical History Surgery Date Site/Laterality Comments TOTAL KNEE ARTHROPLASTY Bilateral PROCEDURE: NH ARTHRP KNE CONDYLE&PLATU MEDIAL&LAT COMPARTMENTS BLADDER SURGERY PROCEDURE: HISTORICAL BLADDER SURGERY OTHER SURGICAL HISTORY 09/21/2021 PROCEDURE: NH PATRICIO FACETECTOMY & FORAMOTOMY 1 VRT SGM LUMBAR; COMMENT: L4-5 decompression, resection of left synovial cyst, placement of Coflex device, Dr. Trinidad CHOLECYSTECTOMY PROCEDURE: HISTORICAL CHOLECYSTECTOMY TUBAL LIGATION PROCEDURE: HISTORICAL TUBAL LIGATION OTHER SURGICAL HISTORY 01/24/2022 PROCEDURE: NH ARTHRODESIS POSTERIOR INTERBODY 1 NTRSPC LUMBAR; COMMENT: Removal of Coflex device L4-5, L4-5 resection of bilateral synovial cysts and fusion, Dr. Trinidad OTHER SURGICAL HISTORY 02/20/2023 PROCEDURE: NH PERQ VERT AGMNTJ CAVITY CRTJ UNI/BI CANNULJ LMBR; COMMENT: L2 kyphoplasty, Dr. Trinidad Medical History Medical History Date Comments Bronchitis DX:Bronchitis Diabetes mellitus type 2, co ntrolled, with complications ([facility] V24, [facility] V28) DX:Diabetes mellitus type 2, controlled, with complications ([facility]) Fibromyalgia DX:Fibromyalgia Hx of neck surgery DX:Hx of neck surgery; COMMENT: x 3 COPD (chronic obstructive pu lmonary disease) ([facility] V24, [facility] V28) DX:COPD (chronic o bstructive pulmonary disease) ([facility]) GERD (gastroesophageal reflux disease) DX:GERD (gastroesophageal reflux [...] Documents on File Type Date Recorded Patient Marine Engineer Expl anation Health Care Decision (hx) 10/02/2021 AD EMERY DIRECTIVE Health Care Decision (hx) 10/02/2021 AD EMERY DIRECTIVE Health Care Decision (hx) 10/02/2021 AD EMERY DIRECTIVE Health Care Decision (hx) 10/02/2021 AD EMERY DIRECTIVE Health Care Decision (hx) 10/02/2021 AD EMERY DIRECTIVE Health Care Decision (hx) 10/02/2021 AD EMERY DIRECTIVE Care Teams Personal Property Assessor Relationship Specialty Start Date End Date [facility] [address] [place] [phone] PCP - General 10/06/23
--- OUTSIDE RECORDS SUMMARY | 2024-08-08 22:08 | XMS_ITS | Encounter Summary ---
Author Organization [employer] Address [address] [place] [address] 7 [place] [address] Care Team Providers Care Optical Laboratory Manager Name Role Phone [facility] Primary Care Provider [phone] Jeff Villarreal [facility] Unavailable Unavailable Reason for Visit * Reason Onset Date Comments Hospital Follow-up 06/14/2024 Encounter Details Date Type Department Care Team (Late st Contact Info) Description 06/14/2024 Telephone [facility] [address] [place], [place] [phone] [facility] [address] [place] [address] Hospital Follow-up Social History Tobacco Use Types [...] from pt requesting a HDF appt. Hospital: [facility] Date of admission: 06/09/24 Discharge date: 06/13/24 Diagnosed: Hemotma *Send message to [place] Clinical Care Coordinators documented in this encounter Plan of Treatment Upcoming Encounters Date Type Department Care Team (Late st Contact Info) Description 09/20/2024 1:15 PM EDT Office Visit [facility] [address] [place], [place] [phone] Underwood, Ashanti, TOWER CLEANER [address] [place], [place] [phone] documented as of this encounter Visit Diagnoses Not on filedocumented in this encounter Additional Health Concerns Assessment Noted Time PHQ-9 Depression Total Score: 0 04/24/19 25 10:11 AM EST documented as of this encounter Care Teams Optical Laboratory Manager Relationship Specialty Start Date End Date Ashanti August FNP [address] [place] [id number] PCP - General Family Medicine 11/24/21 Jeff Villarreal FNP [address] [place] [address] Nurse Practitioner Family Medicine 02/20/23 documented as of this encounter
--- OUTSIDE RECORDS SUMMARY | 2024-08-08 22:08 | XMS_ITS | Clinical Summary ---
Author Organization [facility] Address [address] [place] [address] Care Team Providers Care Title I Teacher Name Role Phone Suri Diamond [facility] Primary Care Provider [phone] Source Comments PLEASE NOTE, if this patient [...] Plan of Treatment Not on file Insurance [facility] [employer] PLAN Member Subscriber Plan / Payer (Ef fective 2013-Present) Name:Rusty Salmeronlia Relation to Subscriber:Self Name:Rusty Salmeronlia Payer ID:[id number] Group ID:[id number] Type:Medicaid Address: [facility] [address] [place] [address] Care Teams Title I Teacher Relationship Specialty Start Date End Date Suri Diamond NP PCP - General Family Medicine [facility] REPRESENTATIVE 12/17/12
--- OUTSIDE RECORDS SUMMARY | 2024-08-08 22:08 | XMS_ITS | Encounter Summary ---
Author Organization [employer] Address [address] [place] [address] [address] [place] [address] Care Team Providers Care Gravel Screener Name Role Phone [facility] Primary Care Provider [phone] Jeff Villarreal [facility] Unavailable Unavailable Reason for Visit * Reason Onset Date Comments Nurse Triage 02/07/2024 Encounter Details Date Type Department Care Team (Late st Contact Info) Description 02/07/2024 Telephone [facility] [address] [place] [address] [facility] [address] [place] [address] Nurse Triage Social History Tobacco Use Types [...] advised to come to WIC at the [facility] today for provider to check urine [...] caller accepted this outcome. Contact pt at [phone] documented in this encounter Plan of Treatment Upcoming Encounters Date Type Department Care Team ([facility] st Contact Info) Description 09/20/2024 1:15 PM EDT Office Visit [facility] [address] [place] [address] Ashanti August FNP [address] [place] [address] documented as of this encounter Visit Diagnoses Not on filedocumented in this encounter Additional Health Concerns Assessment Noted Time PHQ-9 Depression Total Score: 0 12/20/19 24 10:36 AM EDT documented as of this encounter Care Teams Gravel Screener Relationship Specialty Start Date End Date Ashanti August FNP [address] [place] [id number] PCP - General Family Medicine 11/24/21 Jeff Villarreal FNP [address] [place] [address] Nurse Practitioner Family Medicine 02/20/23 documented as of this encounter
--- OUTSIDE RECORDS SUMMARY | 2024-08-08 22:08 | XMS_ITS | Encounter Summary ---
Author Organization [employer] Address [address] [place] [address] [address] [place] [address] Care Team Providers Care Potato Loader Name Role Phone [facility] Primary Care Provider [phone] Jeff Villarreal Unavailable Unavailable Encounter Details Date Type Department Care Team ([facility] Contact Info) Description 05/03/2022 Orders Only [facility] [address] [place], [place] [phone] Elizabeth Meadows LPN Social History Tobacco Use [...] Upcoming Encounters Date Type Department Care Team ([facility] Contact Info) Description 09/20/2024 1:15 PM EDT Office Visit [facility] [address] [place], [place] [phone] Ashanti August [facility] [address] [place] [address] documented as of this encounter Visit Diagnoses Not on filedocumented in this encounter Additional Health Concerns Assessment Noted Time PHQ-9 Depression Total Score: 13 023 2:44 PM EST documented as of this encounter Care Teams Potato Loader Relationship Specialty Start Date End Date Ashanti August FNP [address] [place] [address] PCP - General Family Medicine 11/24/21 Jeff Villarreal FNP [address] [place] [address] Nurse Practitioner Family Medicine 02/20/23 documented as of this encounter
--- OUTSIDE RECORDS SUMMARY | 2024-08-08 22:08 | XMS_ITS | Encounter Summary ---
Author Organization [employer] Address [address] [place] [address] [address] [address] Care Team Providers Care Mechanic'S Assistant Name Role Phone Ashanti August Primary Care Provider [phone] Jeff Villarreal Unavailable Unavailable Encounter Details Date Type Department Care Team (Late st Contact Info) Description 03/24/2022 Orders Only [facility] [address] [place] [address] Isabel Escalante LPN Social History Tobacco Use [...] Description 09/20/2024 1:15 PM EDT Office Visit [facility] [address] [place] [address] Ashanti August FNP [address] [place] [address] documented as of this encounter Visit Diagnoses Not on filedocumented in this encounter Care Teams Mechanic'S Assistant Relationship Specialty Start Date End Date Ashanti August FNP [address] [place] [address] PCP - General Family Medicine 11/24/21 Jeff Villarreal FNP [address] [place] [address] Nurse Practitioner Family Medicine 02/20/23 documented as of this encounter
--- OUTSIDE RECORDS SUMMARY | 2024-08-08 22:08 | XMS_ITS | Clinical Summary ---
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 Spacer/Aero-Holdi ng Chambers (Pro Comfort Spacer Adult) miscIndications:C OPD exacerbation ([facility]) Use qid prn sob/cough with inhaler 1 each 3 Active albuterol 108 (90 Base) MCG/ACT inhalerIndication s:COPD exacerbation ([facility]) Inhale 2 puffs every 6 (six) hours if needed for wheezing. 18 g 1 3 Active Alcohol Swabs (Alcohol Prep) 70 % pads USE DIRECTED TWICE DAILY 3 Active omeprazole (PriLOSEC) [address] capsule TAKE 1 CAPSULE BY MOUTH TWICE DAILY IN THE MORNING AND AT BEDTIME 4 Active Senna-Time 8.6 MG tablet Take 1 tablet by mouth Once per day. 3 Active glucose blood (FREESTYLE LITE) test stripIndications: Type 2 diabetes mellitus with other specified complication, without long-term current use of insulin ([facility]) USE TO TEST BLOOD SUGAR TWICE DAILY 100 each 11 4 Active TRUEplus Lancets 33G miscIndications:T ype 2 diabetes mellitus with other specified complication, without long-term current use of insulin ([facility]) USE TO TEST BLOOD SUGAR TWICE DAILY 100 each 11 4 Active buPROPion XL (Wellbutrin XL) 150 MG 24 hr tablet Take 1 tablet (150 mg) by mouth in the morning. Do not crush, chew, or split. 90 tablet 3 4 Active DULoxetine (Cymbalta) [address] capsuleIndication s:Depression, unspecified depression type Take 1 capsule (60 mg) by mouth Once per day. 90 capsule 3 4 Active traZODone (Desyrel) 100 MG tablet Take 2 tablets (200 mg) by mouth at bedtime. 180 tablet 3 4 Active D3 Super Strength 50 MCG (2000 UT) capsuleIndication s:Vitamin D deficiency TAKE 2 CAPSULES BY MOUTH ONCE DAILY IN THE MORNING 180 capsule 3 4 Active glucose 4 g chewable tabletIndications :Type 2 diabetes mellitus with stage 4 chronic kidney disease, without long-term current use of insulin ([facility]) Chew 4 tablets (16 g) if needed for low blood sugar. 50 tablet 12 4 01/31/20 25 Active lidocaine (Lidoderm) 5 % patchIndications: Cervical radiculopathy Apply 1 patch topically Once per day. Remove & discard patch within 12 hours or as directed by MD. 30 patch 3 4 Active gabapentin (Neurontin) 100 MG capsuleIndication s:Cervical radiculopathy Take 1 capsule three times daily for chronic. May self increase evening dose up to 3 capsules (300mg) if needed for symptom relief. 90 capsule 11 5 Active cloNIDine (Catapres) 0.1 MG tablet Take 0.1 mg by mouth 2 times daily. 5 Active hydrOXYzine HCl (Atarax) 50 MG tablet Take 1 tablet by mouth Once per day. 5 Active ipratropium-albut dougie (Duo-Neb) 0.5-2.5 mg/3 mL nebulizer solution Inhale 3 mL every 4 (four) hours if needed. 5 Active methocarbamol (Robaxin) 500 MG tablet Take 1 tablet by mouth 4 times daily. 5 Active QUEtiapine (SEROquel) 100 MG tablet Take 1 tablet by mouth at bedtime. 5 Active risperiDONE (RisperDAL) 0.5 MG tablet Take 1 tablet by mouth Once per day. 5 Active atorvastatin (Lipitor) 80 MG tablet TAKE 1 TABLET BY MOUTH AT BEDTIME 90 tablet 5 Active Vitamin E 45 MG (100 UNIT) capsule TAKE 1 CAPSULE BY MOUTH EVERY MORNING 90 capsule 5 Active Dulaglutide (Trulicity) 1.5 MG/0.5ML solution auto-injectorIndi cations:Type 2 diabetes mellitus with stage 3a chronic kidney disease, without long-term current use of insulin (CMS/HCC) Inject 1.5 mg under the skin 1 (one) time per week. 2 mL 3 5 Active aspirin 81 MG chewable tabletIndications :Type 2 diabetes mellitus with stage 3a chronic kidney disease, without long-term current use of insulin (CMS/HCC) Chew 1 tablet (81 mg) Once per day. 30 tablet 11 5 06/25/19 26 Active Docusate Sodium (DSS) 100 MG capsule Take 100 mg by mouth if needed in the morning and at bedtime (constipation ). 5 07/14/19 25 Active Problems Problem Noted Date Diagnosed Date [...] continuous 2l O2.Has lung CT screening pending [facility] Pulm Dr. Lam Assessment & Plan (05/29/2024 [...] and drug-disease interactions. This provider has consulted [facility] clinical pharmacist regarding medication safety. Patient had EKG at ED on 2023 which was normal. She will F/U with therapist at [facility] and has discussed the possibility of referral to their prescriber when this provider leaves the practice. However, since this provider will be retiring, patient will be referred to new psychiatric prescriber from [facility], contracted with [facility]. Reviewed with patient that new provider will be outside the [facility] organization and patient gives verbal consent to share information with provider. Any issues or concerns contact [facility]. All her questions were answered and [...] q8 h prn anxiety. This provider consulted [facility] clinical pharmacist regarding medication safety. Patient had EKG at ED on 2023 which was normal. Provider will also consult patient's PCP about possibly changing her Atorvastatin 80 mg to alternative lipid med, as Atorvastatin can be associated with nightmares. She has started with new therapist at [facility] and has discussed the possibility of [...] She has started with new therapist at [facility] and has discussed the possibility of [...] 2019-NIL HPV neg-->repeat 2024 C-scope: Followed by [facility] GI BMD: Routine age 66 Memory impairment [...] Overview (06/24/2024): Early REAL cirrhosis Followed by [facility] GI GI follow up 04/05/24. EGD showed [...] (10/28/2022): ?? S/p multiple spinal surgeries through [facility] 09/2021 for cyst removal ?? Followed by [facility] pain mngmt NIURKA (obstructive sleep apnea) 10/25/2022 Assessment & Plan (05/29/2024 9:29 AM EST): Resolved, in care with pulmonary, Supplemental oxygen prn at night Former smoker Pulmonary nodules 10/25/2022 Supplemental oxygen dependent 10/25/2022 Weak urinary stream 10/25/2022 Overview (10/28/2022): ?? Followed by [facility] urology ?? Bethanechol Tremor of both hands [...] 01/31/2024 Overview (10/28/2022): ?? S/p emergency surgery Anabella 11/2021 ?? Now followed by [facility] GI Vascular insufficiency of intestine 11/24/2021 01/31/2024 Renal function test abnormal 02/11/2021 10/28/2022 Chronic obstructive lung disease 01/17/2021 12/19/2023 Overview (05/15/2023): ?? Trelegy ellipta ?? Albuterol PRN ?? Supplemental 02 ?? 35 pack year smoking hx ?? [facility] pulmonology History of total knee arthroplasty 02/09/2017 10/28/2022 Depressive disorder 02/20/2013 10/29/19 Assessment & Plan (09/20/2022 12:01 PM EDT): She's doing well, no panic attacks at this time, seems to be dealing well with her son's addiction. FU closely with psycho pharacology clinic. Current smoker 12/17/2012 10/28/2022 Encounters Date Type Department Care Team Description 07/05/2024 Telephone [facility] MEDICINE [address] [place] [address] Ashanti August FNP Care Coordination 06/25/2024 Telephone [facility] [address] [place] [address] Ashanti August FNP PCP's message 06/21/2024 1:30 PM EDT Office Visit [facility] [address] [place] [address] Ashanti August FNP Postoperative hematoma involving circulatory system following non-circulatory system procedure (Primary Dx); Memory impairment; Type 2 diabetes mellitus with stage 3a chronic kidney disease, without long-term current use of insulin ([facility]); Primary hypertension 06/21/2024 Travel 06/19/2024 Refill [facility] [address] [place] [address] Kirsten Page MD 06/14/2024 Patient Outreach [facility] MED[facility] [address] [place] [address] Ashanti Augsut FNP Transition Of Care (Tcm) (HDF unscheduled) 06/14/[address] [address] [facility] Hospital Follow-up 06/09/2024 Orders Only GENERIC EXTERNAL DATA DEPARTMENT Provider, Generic External Data 06/04/2024 Orders Only GENERIC EXTERNAL DATA DEPARTMENT Provider, Generic External Data 05/29/[address] [phone] Fátima Jimenes [place] Fax 05/28/2024 3:30 PM EST Office Visit [address] [phone] Anu Romero NP Preop examination (Primary Dx); Cervical radiculopathy; NIURKA (obstructive sleep apnea); Supplemental oxygen dependent; Chronic obstructive pulmonary disease, unspecified COPD type ([facility]); Aortic valve sclerosis; Congestive heart failure, unspecified HF chronicity, unspecified heart failure type ([facility]); Primary hypertension; Cirrhosis of liver without ascites, unspecified hepatic cirrhosis type ([facility]); Stage 3b chronic kidney disease ([facility]); Type 2 diabetes mellitus with stage 3a chronic kidney disease, without long-term current use of insulin ([facility]); ELIZABET (acute kidney injury) ([facility]) 05/28/2024 Travel 05/23/[address] [address] [facility] fyi 05/16/2024 Telephone [facility] PEDS [address] [place], [place] [phone] [facility] appointment cx from Last 3 Months Immunizations Name Administration [...] the past 12 months, has t he [place], oil or water [employer] threatened to shut off services in your [...] EDT Office Visit [facility] MEDICINE [address] [place] [address] [facility] [address] [place] [address] Health Maintenance Due Date Last Done Comments [...] 05/11/2025 05/11/2023, 11/2023, 05/11/2023, Additional history exists Tobacco Screening [...] disease, without long-term current use of insulin ([facility]) POCT GLUCOSE Routine 06/21/2024 1:43 PM EDT Type 2 diabetes mellitus with stage 3a chronic kidney disease, without long-term current use of insulin ([facility]) TYPE AND SCREEN Routine 06/09/2024 3:16 PM [...] Routine 05/29/2024 9:28 AM EST Preop examination BI MAMMOGRAM SCREENING TOMOSYNTHESIS BILATERAL Routine 09/01/2023 [...] POCT HGB A1C (06/21/2024 1:43 PM EDT) Hemoglobin A1C 6.9(A) 4.0 - 6.0 % Blood 06/21/2024 1:43 PM EDT [facility] CLOTH TESTER POINT OF CARE TEST ENTER/EDIT ORDERABLES Final Result * (ABNORMAL) POCT Glucose (06/21/2024 1:43 PM EDT) Glucose Blood, POC 232(A) 60 - 200 mg/dL Blood Capillary blood specimen / Unknown 06/21/2024 1:43 PM EDT [facility] CLOTH TESTER POINT OF CARE TEST ENTER/EDIT ORDERABLES Final Result * (ABNORMAL) Prothrombin Time-INR (06/09/2024 3:16 PM EDT) Only the most recent of2 resultswithin the time period is included. Prothrombin Time 15.6(H) 10.9 - 12.4 SEC [facility] INTERNATIONAL NORM RATIO 1.3(H) 0.9 - 1.1 [facility] Comment:INTERNATIONAL NORMAL IZED RATIO (INR) REFERENCE [...] 3:16 PM EDT 06/09/2024 3:22 PM EDT Generic External Data Provider LAB BLOOD ORDERAB LES Final Result [facility] [address] [place] [phone] * Type and screen (06/09/2024 3:16 PM EDT) Blood Type OP [facility] Antibody Screen NEGATIVE [facility] 06/09/2024 3:16 PM EDT 06/09/2024 3:23 PM EDT us Generic External Data Provider LAB BLOOD BANK TE ST ORDERABLES Final Result Performing Organization Address [facility]/State/ZIP Co de Phone Number [facility] [address] [facility] [place] [phone] * CT Soft Tissue Neck w/ Contrast (06/09/2024 1:53 PM EDT) Anatomical Region Laterality Modality Head, Neck Computed Tomogra phy 06/09/2024 1:53 PM EDT Narrative 06/09/2024 1:54 PM EDT ? [facility] ?[address] ?[place] [address] ? CT Scan Report ? Signed ? Patient: Salmeron,Sharri ?MR#: [id number] ?? 703 ? : 1960 ?Acct:[id number] ? Age/Sex: 63 / F ?ADM Date: 06/09/24 ? Loc: HO.ED ? Attending Dr: ? Ordering Physician: Jessica Gore ?? Date of Service: 06/09/24 ?? Procedure(s): CT soft tissue neck w IV con ?? Accession Number(s): [id number] ? cc: Jessica Gore; Ashanti August CLOTH TESTER ? Report Number: ?? [id number]: Total DLP = ??461.00 mGy-cm ? CLINICAL [...] DD/ 1353 ? TD/TT: 06/09/24 1353 ? Electrician Office: ? Procedure Note Sheyla, Gerson - 06/09/[address] [place] [address] [address] Scan Report Signed Patient: Allyson Salmeron#: [id number] 703 : 2Acct:[id number] Age/Sex: 63 / FADM Date: 06/09/24 Loc: HO.ED Attending Dr: Ordering Physician: Jessica Gore Date of Service: 06/09/24 Procedure(s): CT soft tissue neck w IV con Accession Number(s): [id number] cc: Jessica Gore; [employer] Report Number: [id number]: Total DLP = 461.00 mGy-cm CLINICAL HISTORY: [...] 06/09/24 1354 DD/ 1353 TD/TT: 06/09/24 1353 Electrician Office: [facility] External Provider IMG CT PROCEDURES Edited Result - Final * CT Chest w/ Contrast (06/09/2024 1:49 PM EDT) Anatomical Region Laterality Modality Body, Chest Computed Tomogra phy 06/09/2024 1:49 PM EDT Narrative 06/09/2024 1:51 PM EDT ? [facility] ?[address] ?[place] [address] ? CT Scan Report ? Signed with Addenda ? Patient: Emery Salmerondalia ?MR#: [id number] ?? 703 ? : 1960 ?Acct:[id number] ? Age/Sex: 63 / F ?ADM Date: 06/09/24 ? Loc: HO.ED ? Attending Dr: ? Ordering Physician: Jessica Gore ?? Date of Service: 06/09/24 ?? Procedure(s): CT chest w IV con ?? Accession Number(s): [id number] ? cc: Jessica Gore; Ashanti August ? Report Number: ?? [id number]: Total DLP = ??462.93 mGy-cm ?ADDENDUM ?? This document has been electronically signed by: Anabelle Hurst MD on ?? 06/09/2024 13:49:23 ? ADDENDUM: ?? This report was discussed with DAHLIA Wolfe on Jun 09, 2024 ?? 13:52:00 [...] DD/ 1349 ? TD/TT: 06/09/24 1349 ? Electrician Office: ? Procedure Note Sheyla, Image - 06/09/[address] [place] [address] [address] Scan Report Signed with Makayla Patient: Allyson Salmeron#: [id number] 703 : 2Acct:[id number] Age/Sex: 63 / FADM Date: 06/09/24 Loc: HO.ED Attending Dr: Ordering Physician: Jessica Gore Date of Service: 06/09/24 Procedure(s): CT chest w IV con Accession Number(s): [id number] cc: Jessica Gore; [place] CLOTH TESTER Report Number: [id number]: Total DLP = 462.93 mGy-cm ADDENDUM This [...] OV> 06/09/24 1351 DD/ 1349 TD/TT: 06/09/24 134 Electrician Office: [facility] External Provider IMG CT PROCEDURES Edited Result - Final * Blood Culture (First) (06/09/2024 12:36 PM EDT) Blood Venous blood specimen / Unknown 06/09/2024 12:36 PM EDT 06/09/2024 12:41 PM EDT Comment:Blood Narrative [facility] - 06/14/2024 2:41 PM EDT Blood Culture (First) No growth after 5 days. Specimen Source: Blood Generic External Data Provider LAB MICROBIOLOGY - GENERAL ORDERABLES Final Result Performing Organization Address [facility] Co de Phone Number [facility] [address] [place] [phone] * Blood Culture (Second) (06/09/2024 12:36 PM EDT) Blood Venous blood specimen / Unknown 06/09/2024 12:36 PM EDT 06/09/2024 12:41 PM EDT Comment:Blood Narrative [facility] - 06/14/2024 2:41 PM EDT Blood Culture (Second) No growth after 5 days. Specimen Source: Blood Generic External Data Provider LAB MICROBIOLOGY - GENERAL ORDERABLES Final Result Performing Organization Address [facility] Co de Phone Number [facility] [address] [place] [phone] * Lactic Acid (06/09/2024 12:36 PM EDT) Lactic Acid 1.4 0.5 - 2.0 mmol/L [facility] 06/09/2024 12:3 6 PM EDT 06/09/2024 12:41 PM EDT Generic External Data Provider LAB BLOOD ORDERAB LES Final Result Performing Organization Address [facility] Co de Phone Number [facility] [address] [place] [phone] * Slide Review (06/09/2024 11:42 AM EDT) Slide Review VERIFIED [facility] 06/09/2024 11:4 2 AM EDT 06/09/2024 11:48 AM EDT us Generic External Data Provider LAB BLOOD ORDERAB LES Final Result Performing Organization Address [facility] Co de Phone Number [facility] [address] [place] [phone] * High Sensitivity Troponin I (06/09/2024 11:42 AM EDT) Pathologist [facility] TROPONIN I HIGH SENSITIVITY <2.7 <3.5 - 17.0 ng/L [facility] Comment:The Dawson high sens itivity Troponin-I results should beused in conjunction with other diagnostic information suchas ECG, clinical observations and information, and patientsymptoms to aid in the diagnosis of [place]. 06/09/2024 11:4 2 AM EDT 06/09/2024 11:48 AM EDT Generic External Data Provider LAB BLOOD ORDERAB LES Final Result Performing Organization Address [facility] de Phone Number [facility] [address] [place] [phone] * SARS-CoV-2 RNA, Influenza A/B, and RSV RNA, Ql NAAT (06/09/2024 11:42 AM EDT) [facility] Influenza A PCR NEGATIVE Negative [facility] Influenza B PCR NEGATIVE Negative [facility] Resp Syncy Virus RNA Qual PCR NEGATIVE Negative [facility] SARS COV2 PCR NEGATIVE Negative [facility] Comment:All test results mus t [...] use by authorized laboratories.Testing performed on the [employer] GeneXpert utilizingreal-time RT-PCR.All SARS CoV2 and positive influenza A/B results arereported to [facility]. 06/09/2024 11:4 2 AM EDT 06/09/2024 11:47 AM EDT us Generic External Data Provider LAB MICROBIOLOGY - GENERAL ORDERABLES Final Result [facility] [address] [place] [phone] [phone] * (ABNORMAL) CBC auto differential (06/09/2024 11:42 AM EDT) White Blood Count 14.7(H) 4.8 - 10.8 X10*3/uL [facility] Red Blood Count 5.03 4.20 - 5.50 X10*6/uL [facility] Hemoglobin 14.2 12.0 - 16.0 g/dl [facility] Hematocrit 43.8 37.0 - 47.0 % [facility] Mean Corpuscular Volume 87.1 80.0 - 98.0 fL [facility] Mean Corpuscular Hemoglobin 28.2 27.0 - 33.0 pg [facility] Mean Corpuscular HGB Conc 32.4 31.0 - 35.0 g/dl [facility] Red Cell Distribution Width 16.3(H) 11.0 - 16.0 % [facility] Platelet Count 275 160 - 400 X10*3/uL [facility] Mean Platelet Volume 9.4 9.4 - 12.3 fL [facility] Neutrophils Percent Auto 68.4 45 - 73 % [facility] Imm Gran Pct Auto 0.7(H) 0.0 - 0.4 % [facility] Lymphocytes Percent Auto 19.0(L) 20 - 40 % [facility] Monocytes Percent Auto 11.3(H) 2 - 11 % [facility] Eosinophils Percent Auto 0.1 0 - 4 % [facility] Basophils Percent Auto 0.5 0 - 2 % [facility] NRBC Pct Auto 0.0 0.0 - 0.2 /100WBC [facility] Neutrophils Absolute Auto 10.0(H) 2.0 - 8.3 x10*3/uL [facility] Imm Gran Abs Auto 0.10(H) 0.00 - 0.03 X10*3/uL [facility] Lymphocytes Absolute Auto 2.8 1.2 - 4.9 X10*3/uL [facility] Monocytes Absolute Auto 1.7(H) 0.1 - 1.2 X10*3/uL [facility] Eosinophils Absolute Auto 0.0 0.0 - 0.4 X10*3/uL [facility] Basophils Absolute Auto 0.1 0.0 - 0.2 X10*3/uL [facility] NRBC Abs Auto 0.000 0.0 - 0.012 X10*3/uL [facility] 06/09/2024 11:4 2 AM EDT 06/09/2024 11:48 AM EDT Generic External Data Provider LAB BLOOD ORDERAB LES Edited Result - Final Performing Organization Address [facility] Co de Phone Number [facility] [address] [place] [phone] * Partial Thromboplastin Time, Activated (APTT) (06/09/2024 11:42 AM EDT) Partial Thromboplastin Time 34.1 26.0 - 36.8 SEC [facility] Comment:For information rega rding the monitoring of direct thrombininhibitors, please refer to Pharmacy. 06/09/2024 11:4 2 AM EDT 06/09/2024 11:48 AM EDT us Generic External Data Provider LAB BLOOD ORDERAB LES Final Result Performing Organization Address [facility]/ZIP Co de Phone Number [facility] [address] [place] [phone] * (ABNORMAL) Sed Rate by Meenu Silver (06/09/2024 11:42 AM EDT) Pathologist [facility] Erythrocyte Sedimentation Rate 59(H) 0 - 20 MM/HR [facility] Comment:Patients with polycy themia and many hemoglobin abnormalitiesmay have depressed sed rates whereas patients with anemiamay have elevated sed rates. 06/09/2024 11:4 2 AM EDT 06/09/2024 12:20 PM EDT us Generic External Data Provider LAB BLOOD ORDERAB LES Final Result Performing Organization Address [facility] Co de Phone Number [facility] [address] [place] [phone] * (ABNORMAL) C-reactive Protein (06/09/2024 11:42 AM EDT) Pathologist [facility] C Reactive Protein 8.97(H) < or = 0.50 mg/dL [facility] 06/09/2024 11:4 2 AM EDT 06/09/2024 11:48 AM EDT us Generic External Data Provider LAB BLOOD ORDERAB LES Final Result Performing Organization Address [facility] de Phone Number [facility] [address] [place] [phone] * B Type Natriuretic Peptide (BNP) (06/09/2024 11:42 AM EDT) Pathologist [facility] [facility] Type Natriuretic Peptide <10 <100 pg/mL [facility] Comment:For those patients w ho are being treated with Natrecor(nesiritide, recombinant BNP), BNP testing should beperformed at least two hours post treatment in order toensure that only endogenous levels of BNP are detected. 06/09/2024 11:4 2 AM EDT 06/09/2024 11:48 AM EDT us Generic External Data Provider LAB BLOOD ORDERAB LES Final Result Performing Organization Address [facility] Co de Phone Number [facility] [address] [place] [address] [phone] * (ABNORMAL) Comprehensive Metabolic Panel (06/09/2024 11:42 AM EDT) Sodium 141 135 - 145 mmol/L [facility] Potassium 4.0 3.3 - 5.1 mmol/L [facility] Chloride 101 96 - 108 mmol/L [facility] Carbon Dioxide 25 22 - 29 mmol/L [facility] Anion Gap 19 12 - 20 [facility] Urea Nitrogen (BUN) 19(H) 9 - 16 mg/dL [facility] Creatinine, Serum 0.81 0.5 - 1.4 mg/dL [facility] Creatinine Clr Calc Pharmacy 69.4 [facility] Comment:Provided height and weight: 160.02 cm,73.936 kg.eGFR (calculated from the MDRD study equation) and eCrCl(calculated from the Cockcroft-Gault equation) are based ondifferent parameters and may not yield comparable results.If eCrCl result is absurd, please check patient'sheight/weight. Estimated Glomerular Filt Rate >60 [facility] Comment:Chronic Kidney Disea se: Estimated GFR < 60 mL/min/1.46x7Fzdlol Kidney Disease: Estimated GFR < 15 mL/min/1.73m2 Glucose 148(H) 60 - 115 mg/dL [facility] Calcium 10.5(H) 8.4 - 10.2 mg/dL [facility] Bilirubin, Total 2.8(H) 0.0 - 1.0 mg/dL [facility] Comment:Slight Icterus. Aspartate Amino Transferase 39(H) 5 - 31 U/L [facility] Alanine Aminotransferase 31 0 - 31 U/L [facility] Total Protein 9.3(H) 6.5 - 8.0 g/dL [facility] Albumin Level 4.5 3.5 - 5.0 g/dL [facility] Alkaline Phosphatase 216(H) 39 - 117 U/L [facility] 06/09/2024 11:4 2 AM EDT 06/09/2024 11:48 AM EDT us Generic External Data Provider LAB BLOOD ORDERAB LES Final Result [facility] [address] [place] [address] [phone] * FL Guidance in OR (06/04/2024 7:39 AM EST) Anatomical Region Laterality Modality X-Ray Angiograph y 06/04/2024 7:39 AM EST Narrative 06/07/2024 9:06 AM EST ? [facility] ?[address] ?[place] [address] ? Fluoroscopy Report ? Signed ? Patient: Salmeron,Sharri ?MR#: [id number] ?? 703 ? : 1960 ?Acct:[id number] ? Age/Sex: 63 / F ?ADM Date: 06/04/24 ? Loc: HO.SSS ? Attending Dr: Regulo Dsouza MD, PhD ? Ordering Physician: Regulo Dsouza MD, PhD ?? Date of Service: 06/04/24 ?? Procedure(s): FL guidance in OR ?? Accession Number(s): [id number] ? cc: Regulo Dsouza MD, PhD; Ashanti August [facility] ? EXAMINATION: ??FL GUIDANCE ONLY ? HISTORY: [...] ??Neville Waters MD ??06/07/2024 09:02 AM EST ?? RP ? Dictated By: ?Neville Waters MD ? Signed By: ?<Electronically signed by Neville Waters MD in OV> ?06/07/24901 ? DD/ 8 ? TD/TT: 06/04/24937 ? Electrician Office: ? Procedure Note Doncorneliater, Image - 06/07/[address] [address] Fluoroscopy Report Signed Patient: Allyson Salmeron#: [id number] 703 : 1960cct:[id number] Age/Sex: 63 / FADM Date: 06/04/24 Loc: HO.SSS Attending Dr: Regulo Dsouza MD, PhD Ordering Physician: Regulo Dsouza MD, PhD Date of Service: 06/04/24 Procedure(s): FL guidance in OR Accession Number(s): [id number] cc: Regulo Dsouza MD, PhD; [employer] EXAMINATION: FL GUIDANCE ONLY HISTORY: C6-C7, C7-T1 [...] Neville Waters MD in OV> 06/07/24901 DD/ 0739 TD/TT: 06/04/24937 Electrician Office: us [facility] External Provider IMG IR PROCEDURES Final Result * (ABNORMAL) Glucose, Whole Blood (06/04/2024 6:48 AM EST) Glucose, Whole Blood 154(H) 60 - 115 mg/dL [facility] Comment:METER #: [id number] 06/04/2024 6:48 AM EST 06/04/2024 6:51 AM EST us Generic External Data Provider LAB BLOOD ORDERAB LES Final Result [facility] [address] [place] [address] [phone] * ECG 12 lead (05/29/2024 9:28 AM EST) Narrative Anu Romero NP - 05/29/2024 9:28 AM EST 68 bpm Qt/qtc 456/[address] elevation us Anu Romero NP ECG ORDERABLES Final Result * BI Mammogram Screening Tomosynthesis Bilateral (09/01/2023 8:16 AM EDT) Anatomical Region Laterality Modality Breast Bilateral Mammography 09/01/2023 8:16 AM EDT Narrative 09/26/2023 4:37 PM EDT ? [facility] ? [address] ?[place] [address] ? Mammography Report ? Signed ? Patient: Salmeron,Sharri ?MR#: [id number] ?? 703 ? : 1960 ?Acct:[id number] ? Age/Sex: 63 / F ?ADM Date: 05/31/24 ? Loc: HO.MAMMO ? Attending Dr: Ashanti Mata CLOTH TESTER ? Ordering Physician: Mata,Ashanti CLOTH TESTER ?Results: 1Nega ?? tive ? Date of Service: 09/01/23 ?Follow Up: 1 Year From Orig ?? inal Mammogram ? Procedure(s): MM tomosynthesis screening BI ?? Accession Number(s): [id number] ? cc: Mata,Ashanti CLOTH TESTER ? EXAMINATION: ?? MM SCREENING DIGITAL BREAST [...] 1634 ? DD/ 0816 ? TD/TT: ? Electrician Office: ? Procedure Note Sheyla, Gerson - 09/26/2023 [facility] [address] [place] [address] Dr. [place], [place] [address] Mammography Report Signed Patient: Erilnda SalmeronR#: [id number] 703 : 2Acct:[id number] Age/Sex: 63 / FADM Date: 09/01/23 Loc: [facility] Attending Dr: Ashanti August CLOTH TESTER Ordering Physician: Ashanti August FNPResults: 1Nega tive Date of Service: 09/01/23Follow Up: 1 Year From Orig inal Mammogram Procedure(s): MM tomosynthesis screening BI Accession Number(s): [id number] cc: Ashanti August CLOTH TESTER EXAMINATION: MM SCREENING DIGITAL BREAST TOMOSYNTHESIS, BILATERAL [...] in OV> 09/26/23 1634 DD/ 0816 TD/TT: Electrician Office: [facility] IMG BI PROCEDURES Final Resul t * (ABNORMAL) Lipid Panel, Standard (05/08/2023 11:13 AM EST) Triglycerides 274(H) <150 mg/dL [facility] Comment:Desirable Triglyceri de: less than 150 mg/dLBorderline High Triglyceride 150-199 mg/dLHigh Triglyceride: 200-499 mg/dLVery High Triglyceride: greater than or equal to 5OO mg/dL Cholesterol 230(H) <200 mg/dL [facility] Comment:Desirable Cholestero l: less than 200 mg/dLBorderline High Cholesterol: 200-239 mg/dLHigh Cholesterol: greater than 239 mg/dL LDL Cholesterol Calculated 130(H) <100 mg/dL [facility] Comment:Desirable LDL: less than 100 mg/dLNear Optimal/Above Optimal LDL: 110- 129 mg/dLBorderline High LDL: 130-159 mg/dLHigh LDL: 160-189 mg/dLVery High LDL: greater than or equal to 190 mg/dL HDL Cholesterol 46 >40 mg/dL [facility] Comment:Desirable HDL: great er than 40 mg/dL Note: This HDL assay may give artificially low results in patients with liver disease. Blood Venous blood specimen / Unknown 05/08/2023 11:13 AM EST 05/08/2023 1:10 PM EST [facility] LAB BLOOD ORDERABLES Final Re sult Performing Organization Address [facility] Co de Phone Number [facility] [address] [place] [phone] * HEPATITIS C AB W/REFL TO HCV RNA, QN, PCR (09/08/2021 9:52 AM EDT) HEPATITIS C ANTIBODY NON-REACT [place] NON-REACT [place] [facility] INDEX 0.04 <1.00 [facility] Comment: ?? HCV antibody was non-reactive. There is no laboratory ?? evidence of HCV infection. ?? In most cases, no further action is required. However, if recent HCV exposure is suspected, a test for HCV RNA (test code 57292) is suggested. ?? For additional information please refer to http://education.[employer]/faq/EHD46z5 (This link is being provided for informational/ educational purposes only.) ?? 09/08/2021 9:52 AM EDT Micaela Hernandez FEED HANDLER HISTORICAL/NON ORDERABLE LABS F inal Result Performing Organization Address [facility]/ZIP Co de Phone Number [facility] [address] * HIV 1/2 ANTIGEN/ANTIBODY,FOURTH GENERATION W/RFL (09/08/2021 9:52 AM EDT) Pathologist [facility] HIV-1/2 ANTIGEN AND ANTIBODIES, 4TH GENERATION W/ REFLEX NON-REACT [place] NON-REACT [place] [facility] Comment: HIV-1 antigen and HIV-1/HIV-2 [...] ? For additional information please refer to http://education.[employer]/faq/FRW057 (This link is being provided for informational/ educational purposes only.) ? The performance of this assay has not been clinically validated in patients less than 2 years old. ?? 09/08/2021 9:52 AM EDT Micaela Hernandez FEED HANDLER LAB BLOOD ORDERABLES Final Resu lt Performing Organization Address [facility] Co de Phone Number [facility] [address] [place] [address], * Hm Colonoscopy (07/30/2019) [facility] Colonoscopy Normal Normal Narrative Marta Adam - 07/30/2019 Repeat in 3 years Historical Provider HEALTH MAINTENANCE Final Result * HPV mRNA E6/E7 (05/16/2019 10:37 AM EST) [facility] HPV mRNA E6/E7 Not Detected NOT DETECTED [facility] Comment: This test was performed using the APTIMA(R) HPV Assay ([employer] This assay detects E6/E7 viral messenger RNA (mRNA) from 14 high-risk HPV types (16,18,31,33,35,39,45,51, 52,56,58,59,66,68). For additional information please refer to: http://education.[employer]/faq/YBN167x6 (This link is being provided for informational/ educational purposes only.) The analytical performance characteristics of this assay have been determined by [employer] [place], [place]. The modifications have not been cleared or approved by the FDA. This assay has been validated pursuant to the CLIA regulations and is used for clinical purposes. Test Performed by [employer], [facility] [facility], [address] [place] [address] Bird Barber M.D., Ph.D., Director of Laboratories , CLIA [id number] Please note: ??Effective 12/14/2015, HPV testing will be performed using [employer]'s APTIMA test which targets mRNA. Detecting mRNA instead of DNA, as in older methods, offers significant improvements in specificity. 05/16/2019 10:3 7 AM EST Lexi Thomson CNM HISTORICAL/NON ORDERABLE LABS Final Result [facility] [address] from Last 3 Months or Most Recently Relevant to Health Maintenance Insurance [employer] CARE < [address] [place] [id number] Care Teams Power Plant Operations Manager Relationship Specialty Start Date End Date Ashanti August FNP [address] [place] [address] PCP - General Family Medicine 11/24/21 Jeff Villarreal FNP [address] [place] [address] Nurse Practitioner Family Medicine 02/20/23
--- OUTSIDE RECORDS SUMMARY | 2024-08-08 22:09 | XMS_ITS | Encounter Summary ---
Author Organization [employer] Address [address] [facility] 7t [place] [address] Care Team Providers Care It Teacher Name Role Phone Ashanti August TEACHER CCLC Primary Care Provider [phone] Jeff Villarreal TEACHER CCLC Unavailable Unavailable Encounter Details Date Type Department Care Team (Late st Contact Info) Description 02/16/2023 Abstract [facility] MEDICINE [address] [place] [address] Marta Adam Social History Tobacco Use Types [...] 1:15 PM EDT Office Visit [facility] MEDICINE [address] [place] [address] Ashanti August FNP [address] [place] [address] documented as of this encounter Procedures Procedure [...] documented as of this encounter Care Teams It Teacher Relationship Specialty Start Date End Date Ashanti August FNP [address] [place] [address] PCP - General Family Medicine 11/24/21 Jeff Villarreal FNP [address] [place] [address] Nurse Practitioner Family Medicine 02/20/23 documented as of this encounter
--- OUTSIDE RECORDS SUMMARY | 2024-08-08 22:09 | XMS_ITS | Encounter Summary ---
Author Organization [employer] Address [address] [place] [address] 7 [place] [address] Care Team Providers Care Privacy Compliance Manager Name Role Phone [facility] Primary Care Provider [phone] Jeff Villarreal [facility] Unavailable Unavailable Reason for Visit * Reason Onset Date Comments ER Follow-up 04/25/2023 Encounter Details Date Type Department Care Team (Late st Contact Info) Description 04/25/2023 Telephone [facility] MEDICINE [address] [place], [place] [phone] [facility] [address] [place] [address] ER Follow-up Social History Tobacco Use Types [...] EST Pt. Admitted to [facility] 04/19-04/21 for acute hyperkalemia, UTI and metabolic encephalopathy. Please contact for HDF, thank you! * Telephone Encounter - Kem Carrillo - 04/25/2023 9:24 AM EST Patient calling to report ED visit on : Date: 04/19/23 Hospital: [facility] Seen for: UTI Patient advised will forward to team nurse for follow up documented in this encounter Plan of Treatment Upcoming Encounters Date Type Department Care Team (Late st Contact Info) Description 09/20/2024 1:15 PM EDT Office Visit [facility] MED[facility]INE [address] [place] [address] [place] Ashanti, [facility] [address] [place] [address] documented as of this encounter Visit Diagnoses Not on filedocumented in this encounter Additional Health Concerns Assessment Noted Time PHQ-9 Depression Total Score: 7 04/13/19 24 8:57 AM EST documented as of this encounter Care Teams Privacy Compliance Manager Relationship Specialty Start Date End Date Ashanti August FNP [address] [place] [address] PCP - General Family Medicine 11/24/21 Jeff Villarreal FNP [address] [place] [address] Nurse Practitioner Family Medicine 02/20/23 documented as of this encounter
--- OUTSIDE RECORDS SUMMARY | 2024-08-08 22:09 | XMS_ITS | Encounter Summary ---
Author Organization [employer] Address [address] [place] [address] 7 [place] [address] Care Team Providers Care Parachute Harness Rigger Name Role Phone [facility] Primary Care Provider [phone] Jeff Villarreal [facility] Unavailable Unavailable Reason for Visit * Reason Onset Date Comments Hospital Follow-up 07/28/2023 Encounter Details Date Type Department Care Team ([facility] st Contact Info) Description 07/28/2023 Telephone [facility] MEDICINE [address] [place], [place] [phone] [facility] [address] [place] [address] Hospital Follow-up Social History Tobacco Use Types [...] from pt requesting a HDF appt. Hospital: [facility] Date of admission: 07/19 Discharge date: 07/25 Diagnosed: Massive UTI documented in this encounter Plan of Treatment Upcoming Encounters Date Type Department Care Team (Late st Contact Info) Description 09/20/2024 1:15 PM EDT Office Visit [facility] MEDICINE [address] [place] [address] Ashanti August FNP [address] [place] [address] documented as of this encounter Visit Diagnoses Not on filedocumented in this encounter Additional Health Concerns Assessment Noted Time PHQ-9 Depression Total Score: 9 07/05/19 24 4:20 PM EDT documented as of this encounter Care Teams Parachute Harness Rigger Relationship Specialty Start Date End Date Ashanti August FNP [address] [place] [address] PCP - General Family Medicine 11/24/21 Jeff Villarreal FNP [address] [place] [address] Nurse Practitioner Family Medicine 02/20/23 documented as of this encounter
--- OUTSIDE RECORDS SUMMARY | 2024-08-08 22:09 | XMS_ITS | Encounter Summary ---
Author Organization [employer] Address [address] [facility] 7t [place] [address] Care Team Providers Care Circle Beveler Name Role Phone Ashanti August WIRE COILER MACHINE OPERATOR Primary Care Provider [phone] Jeff Villarreal WIRE COILER MACHINE OPERATOR Unavailable Unavailable Encounter Details Date Type Department Care Team (Late st Contact Info) Description 02/21/2023 Orders Only [facility] [address] [place] [address] Isabel Escalante LPN Social History Tobacco Use [...] 09/20/2024 1:15 PM EDT Office Visit [facility] MEDICINE [address] [place] [address] Ashanti August FNP [address] [place] [address] documented as of this encounter Visit Diagnoses Not on filedocumented in this encounter Additional Health Concerns Assessment Noted Time PHQ-9 Depression Total Score: 14 023 9:52 AM EDT documented as of this encounter Care Teams Circle Beveler Relationship Specialty Start Date End Date Ashanti August FNP [address] [place] [address] PCP - General Family Medicine 11/24/21 Jeff Villarreal FNP [address] [place] [address] Nurse Practitioner Family Medicine 02/20/23 documented as of this encounter
--- OUTSIDE RECORDS SUMMARY | 2024-08-08 22:09 | XMS_ITS | Clinical Summary ---
Author Organization [facility] Address [address] [address] Phone Care Team Providers Care Gis Software Engineer Name Role Phone Unavailable Primary Care Provider [...] ?? Early REAL cirrhosis ?? Followed by [facility] GI Aortic valve sclerosis 10/25/2022 Anemia [...] results. ?? S/p multiple spinal surgeries through [facility] 09/2021 for cyst removal ?? 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 Followed by [facility] urology ?? Bethanechol Finding of hand region 09/20/2022 Overview (03/07/2023): Last Assessment & Plan: Due to increased albuterol use, trest of neurological exam is normal. No evidence of other EPS. Vascular insufficiency of intestine 11/24/2021 Ischemic colitis 11/24/2021 Overview (02/21/2022): Added automatically from request for surgery [id number] Congestive heart failure 02/27/2021 023 Overview (03/07/2023): [...] ?? Trelegy ellipta ?? Albuterol PRN ?? [facility] pulmonology Fibromyalgia 12/08/2020 03/07/2023 Overview (03/07/2023): [...] Visit [facility] [address] [place] [address] Nguyễn Baird MD [address] [facility] [address] [place] [address] Health Maintenance Due Date Last Done Comments [...] 01/31/2024, 01/02/2023, Additional history exists Pneumococcal Vaccine: 50+ Years Completed Pneumococcal Vaccine: Peds ( 0 to 5 Years) and At-Risk Patients (6 to 49 Years) Discontinued 11/17/2021 Influenza Vaccine Completed 12/20/2023, , 12/24/2021, [...] mmol/L PVNMA 12/17/2019 us [facility] Conversion LAB [id number] LICITED RESULTS Final Result PVNMA from Last 3 Months or Most Recently Relevant to Health Maintenance Insurance [facility] ([id number]) [facility] ([id number])
--- OUTSIDE RECORDS SUMMARY | 2024-08-08 22:09 | XMS_ITS | Encounter Summary ---
Author Organization [employer] Address [address] [place] [address] 7 [place] [address] Care Team Providers Care Manufacturing Systems Engineer Name Role Phone [facility] Primary Care Provider [phone] Jeff Villarreal [facility] Unavailable Unavailable Reason for Visit * Reason Onset Date Comments Med Refill 04/04/2023 Encounter Details Date Type Department Care Team (Late st Contact Info) Description 04/04/2023 Telephone [facility] MEDICINE [address] [place], [place] [phone] [facility] [address] [place], [place] [phone] Med Refill Social History Tobacco Use Types [...] 2 MG tablet To be sent to: [facility] [place], [place] - [address] [facility] documented in this encounter Plan of Treatment Upcoming Encounters Date Type Department Care Team (Late st Contact Info) Description 09/20/2024 1:15 PM EDT Office Visit [facility] MEDICINE [address] [place] [address] Chill[place]otheAshanti FNP [address] [place] [address] documented as of this encounter Visit Diagnoses Not on filedocumented in this encounter Additional Health Concerns Assessment Noted Time PHQ-9 Depression Total Score: 0 03/06/20 12:04 PM EST documented as of this encounter Care Teams Manufacturing Systems Engineer Relationship Specialty Start Date End Date Ashanti August FNP [address] [place] [address] PCP - General Family Medicine 11/24/21 Jeff Villarreal FNP [address] [place] [address] Nurse Practitioner Family Medicine 02/20/23 documented as of this encounter
--- OUTSIDE RECORDS SUMMARY | 2024-08-08 22:09 | XMS_ITS | Encounter Summary ---
Author Organization [employer] Address [address] [place] [address] 7t [place] [address] Care Team Providers Care Ssn/Ssbn Assistant Navigator Name Role Phone Ashanti August Primary Care Provider [phone] Jeff Villarreal Unavailable Unavailable Reason for Visit * Reason Comments Med Refill Encounter Details Date Type Department Care Team ([facility] Contact Info) Description 10/16/2022 Refill [facility] MED[facility]INE [address] [place] [address] Jeff Villarreal FNP Depression, unspecified depression type [...] Upcoming Encounters Date Type Department Care Team ([facility] Contact Info) Description 09/20/2024 1:15 PM EDT Office Visit [facility] MEDICINE [address] [place] [address] Ashanti August FNP [address] [place] [address] documented as of this encounter Visit Diagnoses Diagnosis Depression, unspecified depression type documented in this encounter Additional Health Concerns Assessment Noted Time PHQ-9 Depression Total Score: 13 023 2:44 PM EST documented as of this encounter Care Teams Ssn/Ssbn Assistant Navigator Relationship Specialty Start Date End Date Ashanti August FNP [address] [place] [address] PCP - General Family Medicine 11/24/21 Jeff Villarreal FNP [address] [place] [address] Nurse Practitioner Family Medicine 02/20/23 documented as of this encounter
--- OUTSIDE RECORDS SUMMARY | 2024-08-08 22:09 | XMS_ITS | Data Portability ---
Author Organization [facility] [employer] [place], [place] in - [facility] Address [address] [place] [id number] Care Team Providers Care Medical Office Receptionist Name Role Phone FIDELIA DELGADO Primary Care Provider [phone] HIM [facility] OTHER Assessment No assessment recorded. Plan of Treatment Reminders Order Date Submit Date Provider Last Modified By Organization Details Last Modified Time Details Appointments Urgent Care 2024 07:03P Judy Longoria MD Not available Not available Not available Lab rapid flu (A+B) [address], [phone] 08/08/2024 21:54:24 rapid SARS CoV 2 Ag, QL IA, respirato ry specimen [address], [id number] 08/08/2024 21:55:09 Referral None recorded. Procedures None recorded. Surgeries None recorded. Imaging None recorded. Medication Orders None recorded. Patient TargetsNo targets recorded. Patient InstructionsNo instructions recorded. Reason for Referral None Reported. Results Created Date Observation Date Name Description Value Unit Range Abnormal Flag Note LastModifiedBy Organization Detail LastModifiedTime Result Notes None recorded. Medical Equipment None Reported. Allergies Allergen ID Allergen Name Allergen Category Reaction Reaction Severity Criticality Documentation Date Start Date Code Code System Note Provider Name and Address Organization Details Recorded Time 83525 acetamino phen / hydrocodo ne medicatio n Not available Not available Not available 08/08/2024 61829 2 RxNorm Not Available [facility] - production 17:52:11 40043 oxycodone medicatio n Not available Not available Not available 08/08/2024 7804 RxNorm Not Available [facility] - production 17:52:11 Medications Name Sig Start Date Stop Date Status Note LastModified by Organization Details LastModified Time atorvastatin 80 mg tablet TAKE 1 TABLET BY MOUTH AT BEDTIME active Not Available Not Available No t Available clonidine HCl 0.1 mg tablet TAKE 1 TABLET BY MOUTH TWICE DAILY IN THE MORNING AND AT BEDTIME active Not Available Not Available No t Available tizanidine 2 mg tablet TAKE 1 TABLET BY MOUTH IN THE MORNING and TAKE 2 TABLETS BY MOUTH EVERY DAY IN THE EVENING NEEDED. DO NOT EXCEED 3 DOSES PER 24 HOURS. active Not Available Not Available No t Available theophylline ER 400 mg tablet,exten ded release 24 hr TAKE 1 TABLET BY MOUTH EVERY MORNING active Not Available Not Available No t Available quetiapine 200 mg tablet TAKE 1 TABLET BY MOUTH AT BEDTIME active Not Available Not Available No t Available hydroxyzine pamoate 50 mg capsule TAKE 1 CAPSULE BY MOUTH EVERY DAY NEEDED active Not Available Not Available No t Available risperidone 0.25 mg tablet TAKE 1 TABLET BY MOUTH AT BEDTIME active Not Available Not Available No t Available amlodipine 5 mg tablet TAKE 1 TABLET BY MOUTH EVERY MORNING active Not Available Not Available No t Available quetiapine 100 mg tablet TAKE 1 TABLET BY MOUTH AT BEDTIME active Not Available Not Available No t Available trazodone 100 mg tablet TAKE 2 TABLETS BY MOUTH EVERY DAY AT BEDTIME active Not Available Not Available No t Available lidocaine 5 % topical patch APPLY 1 PATCH TOPICALLY TO SKIN, LEAVE ON FOR 12 HOURS AND OFF FOR 12 HOURS DIRECTED active Not Available Not Available No t Available Gas Relief Extra Strength 125 mg capsule TAKE 1 CAPSULE BY MOUTH 2 TO 4 TIMES DAILY NEEDED active Not Available Not Available No t Available omeprazole 20 mg capsule,verena yed release TAKE 1 CAPSULE BY MOUTH TWICE DAILY IN THE MORNING AND IN THE EVENING active Not Available Not Available No t Available aspirin 81 mg chewable tablet TAKE 1 TABLET BY MOUTH EVERY MORNING (CHEW) active Not Available Not Available No t Available furosemide 20 mg tablet TAKE 1 TABLET BY MOUTH EVERY MORNING active Not Available Not Available No t Available gabapentin 100 mg capsule TAKE 1 CAPSULE BY MOUTH THREE TIMES DAILY, MAY INCREASE TO 3 CAPSULES AT BEDTIME IF NEEDED FOR SYMPTOMS RELIEF active Not Available Not Available No t Available cefuroxime axetil 500 mg tablet TAKE 1 TABLET BY MOUTH TWICE DAILY UNTIL FINISHED active Not Available Not Available No t Available ondansetron 4 mg disintegrati ng tablet TAKE 1 TABLET BY MOUTH EVERY 6 HOURS NEEDED FOR NAUSEA AND VOMITING active Not Available Not Available No t Available risperidone 1 mg tablet TAKE 1 TABLET BY MOUTH AT BEDTIME active Not Available Not Available No t Available risperidone 0.5 mg tablet TAKE 1 TABLET BY MOUTH AT BEDTIME active Not Available Not Available No t Available bupropion HCl XL 150 mg 24 hr tablet, extended release TAKE 1 TABLET BY MOUTH EVERY MORNING active Not Available Not Available No t Available Alcohol Prep Pads USE DIRECTED TWICE DAILY active Not Available Not Available Not Available duloxetine 60 mg capsule,verena yed release TAKE 1 CAPSULE BY MOUTH EVERY MORNING active Not Available Not Available No t Available vitamin E (dl, acetate) 45 mg (100 unit) capsule TAKE 1 CAPSULE BY MOUTH EVERY MORNING active Not Available Not Available No t Available quetiapine 400 mg tablet TAKE 1 TABLET BY MOUTH AT BEDTIME active Not Available Not Available No t Available Januvia 50 mg tablet TAKE 1 TABLET BY MOUTH EVERY MORNING active Not Available Not Available No t Available FreeStyle Lite Strips USE DIRECTED TO TEST BLOOD SUGAR TWICE DAILY active Not Available Not Available No t Available Vitamin D3 50 mcg (2,000 unit) capsule TAKE 2 CAPSULES BY MOUTH ONCE DAILY IN THE MORNING active Not Available Not Available Not Available TRUEplus Lancets 33 gauge USE DIRECTED TO TEST BLOOD SUGAR TWICE DAILY active Not Available Not Available No t Available Trulicity 1.5 mg/0.5 mL subcutaneous pen injector INJECT ONE PEN (=1.5MG) SUBCUTANEOU SLY ONCE A WEEK DIRECTED active Not Available Not Available No t Available Trulicity 0.75 mg/0.5 mL subcutaneous pen injector INJECT ONE PEN (=0.75MG) SUBCUTANEOU SLY ONCE A WEEK DIRECTED active Not Available Not Available No t Available Trelegy Ellipta 200 mcg-62.5 mcg-25 mcg powder for inhalation INHALE 1 PUFF BY MOUTH EVERY DAY AT THE SAME TIME active Not Available Not Available No t Available glucose 3.75 gram chewable tablet CHEW 4 TABLETS NEEDED FOR low blood sugar (LESS THAN 70mg/dL) active Not Available Not Available No t Available Vitals Date Recorded Body temperature Heart rate Respiratory rate Oxygen saturation Oxygen saturation in Arterial blood by Pulse oximetry Heart rate Systolic blood pressure Diastolic blood pressure Systolic blood pressure Diastolic blood pressure Provider Name and Address Organization Details Last Updated DateTime 5 98.2 [degF] 116 /min 20 /min 96 % 96 % 128 /min 128 mm[Hg] 80 mm[Hg] 86 mm[Hg] 60 mm[Hg] Not Available [facility] - production 20:13:03 Social History None recorded. Functional Status None recorded. Mental Status None recorded. Family History Nothing Reported. Medical History No medical history recorded. Gynecological HistoryNo gynecological history recorded. Obstetrics History GPAL:G 0 P 0 0 0 0 Past Encounters Encounter ID Performer Location Encounter Start Date Encounter Closed Date Diagnosis/Indication Diagnosis SNOMED-CT Code Diagnosis ICD10 Code Diagnosis Note [id number] SABRA LONGORIA MD [facility] [address] [place] [phone] 08/08/2024 20:03:23 08/08/2024 21:20:30 Nausea, vomiting and diarrhea 2821320 R11.2 R19.7 Evaluation in the field was performed by my engineering administrator colleague, as noted above, I provided real-time direction and supervisio n for this visit. The evaluation revealed 63-year-ol d female with a history of hypertensi on and type 2 diabetes mellitus presents with nausea, vomiting, abdominal pain, and diarrhea for the past 3 days. The abdominal pain is diffuse, with associated abdominal distension . She reports inability to tolerate oral intake over the past couple of days. Diarrhea is non-bloody . She denies fever or chills. She has a history of diverticul itis, but notes that the current pain is different in character and location from previous episodes. The patient was recently hospitaliz ed for internal bleeding following neck surgery. Vital Signs: BP: 120/80 mmHg initially; 86/60 mmHg while standingHR : 128 , RR: 20 , SpO? : 96% on room air, Temp: 98.2? ? ?FPhysical Exam: Alert, appears uncomforta bleLungs: Clear to auscultati on bilaterall yAbdomen: Firm, distended, tenderness to palpation in all quadrants; notable firm mass in RLQ and LLQ, positive guarding per engineering administrator examSkin: [place], warm, dryCOVID and flu tests: NegativeAl lergies: Reviewed Impression :Acute abdominal pain with distension and guarding, concerning for surgical abdomen (e.g., bowel obstructio n, perforatio n, abscess, or mass)Hemod ynamic instabilit y (hypotensi on + tachycardi a), possible early sepsis or volume depletionH istory of diverticul itis, but current symptoms are atypical in presentati on and severity Plan:Initi al plan included IV placement, initiation of intravenou s fluids, and transport to the emergency department for further evaluation and management given the patient? s persisten t abdominal pain, abdominal distension , hypotensio n, and inability to tolerate oral intake, raising concern for a potential surgical abdomen or evolving intra-abdo opal process.Pa ramedics were unable to establish IV access in the field.The patient was transporte d to the [facility] Emergency Department for urgent evaluation , imaging, and management , including IV resuscitat ion, laboratory workup, and possible surgical consultati on. Expect called. Primary care, consider__ _ Dispositio n:We discussed the situation and I recommende d referral to the emergency department . [facility]. Health Concerns Section Related Observation LastModified by Organization Detai ls LastModified Time None Recorded Concern Status LastModified by Organization Details LastModified Time None Recorded Advance Directives Directive None Recorded Payers Insurance Date Sequence Insurance Name Policy Number Policy Cuevas Covered Member ID Cuevas Member ID Guarantor Name 08/08/2024 1 [facility] - DOS ON OR AFTER 2022 - DUAL ELIGIBLE - NURSING HOME OPTIONS AND ONE CARE (MEDICARE REPLACEMENT/ADV ANTAGE - HMO) Sharri Salmeron [id number] Sharri Salmeron Notes Date Note Type Note Provider Name and Address Organization Details Recorded Time 08/08/2024 text/html [facility] Nurse Triage Notes (Malini Ball): Reason For Request: nausea/abdominal pain Patient Reports: Sharp focal or diffuse abdominal pain ; Diarrhea ? no blood in stool Denies: Vomiting blood/coffee ground material Bloating, jaundice new onset with pain Nausea and vomiting greater than 2 hours with abdominal pain Tearing pain that radiates to back Food Impaction Chief Complaints: Nausea / Vomiting, Abdominal Pain PMH: Diabetes Mellitus Type 2, Hypertension PMH Reviewed at 08/08/2024 - :52 Allergies Reviewed at 08/08/2024 - :52 Comments: 63 y.o female complains of Nausea / Vomiting, Abdominal Pain For the past 3 days patient with nausea and abdominal pain. Pain is generalized, appears distended. + diarrhea. No blood in stool. Unable to tolerate PO intake for the past couple of days. Denies fever/chills. Patient was recently hospitalized for internal bleeding after having neck surgery. I provided information on the mobile health provider response time and advised the patient and/or caregiver to monitor reported signs and symptoms. I discussed the warning signs of when to seek emergency care. [employer] Organization Information for [employer] Legal Name: [employer]? Address: [address] [place] [address], Regional Dedicated Truck Driver: Cy Barber MD [facility] No.: [id number] [employer] POC Test Results from [employer] [facility] Rapid COVID antigen (20:07:11) COVID: - Attachments uploaded as part of this test result can be found under Documents section. Rapid influenza antigen (20:07:12) Flu: +A Attachments uploaded as part of this test result can be found under Documents section. .................. .................. .................. .................. .................. .................. .................. ............... [employer] Note From [employer]: Dispatched to above address for abdominal pain. On arrival patient 63 y/o F, found sitting in chair, AOX4, airway patent, speaking in full sentences, good color, in no apparent distress. Patient reports x3 days severe worsening abdominal pain, nausea, vomiting, diarrhea, reports unable to eat for 3 days, drinking water. Patients vital signs checked. Secondary assessment, pupils PERRL, airway patent, no JVD, trachea midline, equal chest rise and fall, lungs clear all delvalle, abdomen firm distended tenderness to palpation in all quadrants firm mass in RLQ LLQ, no signs of trauma, good radial pulse, skin pink warm and dry. Orthostatic vital signs checked. Covid-19 and Flu test preformed, both negative, results uploaded. [facility] contacted, spoke with Dr. Longoria, advised of patient complaints, exam findings and test results. [facility] recommends transport to ER for further evaluation. Patient agrees with this plan. IV access was attempted but unsuccessful. [facility] ambulance responded. Verbal report given to [facility] [employer], took over patient care, will transport to [facility]. SC8 clear. [place]. [facility] Lab Orders: rapid flu (A+B): Performed rapid SARS CoV 2 Ag, QL IA, respiratory specimen: Performed .................. .................. .................. .................. .................. .................. .................. ............... [facility] Consulted: Sabra Longoria .................. .................. .................. .................. .................. .................. .................. ............... Disposition: Fulfilled SABRA LONGORIA MD [address], [place], [address], JESSI WALTON 08/08/2024 21:20:27 OBGyn Episode No OBEpisode recorded.
--- OUTSIDE RECORDS SUMMARY | 2024-08-08 22:09 | XMS_ITS | Encounter Summary ---
Author Organization [employer] Address [address] [place] [address] [address] [place] [address] Care Team Providers Care Touring Production Manager Name Role Phone [place] [facility] Primary Care Provider [phone] Jeff Villarreal [employer] SUPERINTEND[employer] Unavailable Unavailable Encounter Details Date Type Department Care Team (Late Contact Info) Description 11/07/2022 Orders Only [facility] [address] [place], [place] [id number] Elizabeth Meadows LPN Social History Tobacco Use [...] Description 09/20/2024 1:15 PM EDT Office Visit [facility] MED[facility]INE [address] [place], [place] [phone] [place] [facility] [address] [place], [place] [phone] documented as of this encounter Visit Diagnoses Not on filedocumented in this encounter Additional Health Concerns Assessment Noted Time PHQ-9 Depression Total Score: 24 023 10:26 AM EDT documented as of this encounter Care Teams Touring Production Manager Relationship Specialty Start Date End Date Ashanti August FNP [address] [place] [address] PCP - General Family Medicine 11/24/21 Jeff Villarreal FNP [address] [place] [address] Nurse Practitioner Family Medicine 02/20/23 documented as of this encounter
--- OUTSIDE RECORDS SUMMARY | 2024-08-08 22:09 | XMS_ITS | Encounter Summary ---
Author Organization [employer] Address [address] [place] [address] [address] [place] [address] Care Team Providers Care Casting Machine Control Board Operator Name Role Phone [facility] Primary Care Provider [phone] Jeff Villarreal [facility] Unavailable Unavailable Reason for Visit * Reason Comments Med Refill Encounter Details Date Type Department Care Team ([facility] st Contact Info) Description 03/29/2024 Refill [facility] [address] [place] [address] [facility] [address] [place] [address] Primary hypertension Social History Tobacco Use Types [...] 1:15 PM EDT Office Visit [facility] [address] [place] [address] Ashanti August FNP [address] [place] [address] documented as of this encounter Visit Diagnoses Diagnosis Primary hypertension Unspecified essential hypertension documented in this encounter Additional Health Concerns Assessment Noted Time PHQ-9 Depression Total Score: 0 12/20/19 10:36 AM EDT documented as of this encounter Care Teams Casting Machine Control Board Operator Relationship Specialty Start Date End Date Ashanti August FNP [address] [place] [address] PCP - General Family Medicine 11/24/21 Jeff Villarreal FNP [address] [place] [address] Nurse Practitioner Family Medicine 02/20/23 documented as of this encounter
--- OUTSIDE RECORDS SUMMARY | 2024-08-08 22:09 | XMS_ITS | Encounter Summary ---
Author Organization [employer] Address [address] [place] [address] [address] [place] [address] Care Team Providers Care Technology Lead Name Role Phone [facility] Primary Care Provider [phone] Jeff Villarreal [facility] Unavailable Unavailable Reason for Visit * Reason Comments Med Refill Encounter Details Date Type Department Care Team ([facility] st Contact Info) Description 03/20/[address] [facility] [address] [place] [address] [facility] [address] [place] [address] Primary hypertension Social History Tobacco Use Types [...] 09/20/2024 1:15 PM EDT Office Visit [facility] [address] [place] [address] Ashanti August FNP [address] [place] [address] documented as of this encounter Visit Diagnoses Diagnosis Primary hypertension Unspecified essential hypertension documented in this encounter Additional Health Concerns Assessment Noted Time PHQ-9 Depression Total Score: 0 12/20/19 10:36 AM EDT documented as of this encounter Care Teams Technology Lead Relationship Specialty Start Date End Date Ashanti August FNP [address] [place] [id number] PCP - General Family Medicine 11/24/21 Jeff Villarreal FNP [address] [place] [address] Nurse Practitioner Family Medicine 02/20/23 documented as of this encounter
--- OUTSIDE RECORDS SUMMARY | 2024-08-08 22:09 | XMS_ITS | Encounter Summary ---
Author Organization [employer] Address [address] [place] [address] [address] [place] [address] Care Team Providers Care Endbander Name Role Phone [facility] Primary Care Provider [phone] Jeff Villarreal [facility] Unavailable Unavailable Reason for Visit * Reason Comments Med Refill Encounter Details Date Type Department Care Team ([facility] st Contact Info) Description 03/28/2024 Refill [facility] MEDICINE [address] [place] [address] [facility] [address] [place] [address] Primary hypertension Social History Tobacco Use Types [...] Description 09/20/2024 1:15 PM EDT Office Visit [facility]INE [address] [place] [address] Ashanti August FNP [address] [place] [address] documented as of this encounter Visit Diagnoses Diagnosis Primary hypertension Unspecified essential hypertension documented in this encounter Additional Health Concerns Assessment Noted Time PHQ-9 Depression Total Score: 0 12/20/19 10:36 AM EDT documented as of this encounter Care Teams Endbander Relationship Specialty Start Date End Date sAhanti August FNP [address] [place] [address] PCP - General Family Medicine 11/24/21 Jeff Villarreal FNP [address] [place] [address] Nurse Practitioner Family Medicine 02/20/23 documented as of this encounter
--- OUTSIDE RECORDS SUMMARY | 2024-08-08 22:09 | XMS_ITS | Encounter Summary ---
Author Organization [employer] Address [address] [facility] [address]t [place] [address] Care Team Providers Care Parts Analyst Name Role Phone Ashanti August INVENTORY CHECKER Primary Care Provider [phone] Jeff Villarreal INVENTORY CHECKER Unavailable Unavailable Encounter Details Date Type Department Care Team (Late st Contact Info) Description 03/29/2024 Telephone [facility] MED[facility]INE [address] [place] [address] Heriberto العراقي, KeithD Social History Tobacco Use [...] 1:15 PM EDT Office Visit [facility] MED[facility] [address] [place] [address] SolonAshanti garcia FNP [address] [place] [address] documented as of this encounter Visit Diagnoses Not on filedocumented in this encounter Additional Health Concerns Assessment Noted Time PHQ-9 Depression Total Score: 0 12/20/19 24 10:36 AM EDT documented as of this encounter Care Teams Parts Analyst Relationship Specialty Start Date End Date Ashanti August FNP [address] [place] [address] PCP - General Family Medicine 11/24/21 Jeff Villarreal FNP [address] [place] [address] Nurse Practitioner Family Medicine 02/20/23 documented as of this encounter
--- OUTSIDE RECORDS SUMMARY | 2024-08-08 22:09 | XMS_ITS | Clinical Summary ---
Author Organization [facility] Address [address] [place] [address] Care Team Providers Care Malted Milk Masher Name Role Phone Pcp, No Primary Care Provider Unavailabl e Allergies Active Allergy Reactions Criticality Noted Date Comments Hydrocodone-Acetaminophen Itching Low 12/17/2012 Oxycodone Rash/Dermatitis High 02/11/2021 Zolpidem Rash/Dermatitis High 02/11/2021 Medications acetaminophen (TYLENOL) 325 MG tabletIndicatio ns:Ischemic colitis Take 2 tablets (650 mg total) by mouth 4 times daily (every 6 hours) as needed for mild pain. 240 tablet 2 Active HYDROmorphone (DILAUDID) 2 MG tabletIndicatio ns:Ischemic colitis Take 1 tablet (2 mg total) by mouth every 4 (four) hours as needed for severe pain. Max Daily Amount: 12 mg 20 tablet 2 Active docusate sodium (COLACE) 100 MG capsuleIndicati ons:Ischemic colitis Take 1 capsule (100 mg total) by mouth 2 (two) times a day as needed for constipation. Take for prevention of narcotic induced constipation, hold for loose stools. 60 capsule 2 Active Active Problems Problem Noted Date Diagnosed Date Ischemic colitis 11/24/2021 Overview (11/24/2021): Added automatically from request for surgery [id number] Ischemic bowel disease 11/24/2021 Social History Tobacco Use Types Packs/Day Years Used Date Smoking Tobacco: Never Assessed Tobacco Cessation:Counseling Given: No Comments Unknown Sex and Gender Information Value Date Recorded Sex Assigned at Female 11/28/2021 11:10 AM EDT Legal Sex Female 6:29 PM EST Gender Identity Female 11/28/2021 11:10 AM EDT [...] Zoster (Shingles) Vaccine (1 of 2) 08/24/2011 COVID-19 Vaccine ( - 2023-2 5 season) 2023 Influenza Vaccine 11/01/2024 12/17/2012 RSV Vaccine 60 years and old er [...] Nonreactive Nonreactive S/CO 11/24/2021 11:21 AM EDT [facility] Hepatitis B Core Antibody IgM Nonreactive Nonreactive 11/24/2021 11:21 AM EDT t-Art [facility] Hepatitis B Surface Ag Screen Nonreactive Nonreactive 11/24/2021 11:21 AM EDT t-Art [facility] Hepatitis C Antibody 0.54 0.00 - 0.79 S/CO ratio 11/24/2021 11:21 AM EDT t-Art [facility] Hepatitis C Antibody Interpretation Nonreactive Nonreactive 11/24/2021 11:21 AM EDT t-Art [facility] Hepatitis Interpretation: Results inconsistent with acute Hepatitis A, B or C Virus infection. 11/24/2021 11:21 AM EDT t-Art [facility] Blood specimen (specimen) Serum specimen / Unknown 11/24/2021 6:13 AM EDT 11/24/2021 6:40 AM EDT us Mary Grace Huerta [employer] LAB BLOOD ORDERABLES Final R [facility]ult [facility] [place] [employer] [facility] [address] [place] [address] from Last 3 Months or Most Recently Relevant to Health Maintenance Insurance MEDICAID OUT OF STATE [facility] MEDICARE OUT OF [facility] Advance Directives * Full Code (Latest Code Status on File) Date Activated Date Inactivated Comments 11/24/2021 3:35 AM 12/15/2021 3:20 PM Care Teams Malted Milk Masher Relationship Specialty Start Date End Date Pcp, No PCP - General General Medicine 11/28/21
--- OUTSIDE RECORDS SUMMARY | 2024-08-08 22:09 | XMS_ITS | Encounter Summary ---
Author Organization [employer] Address [address] [place] [address] [address] [place] [address] Care Team Providers Care Sterilization Technician Name Role Phone Ashanti August DISPLAY CARVER Primary Care Provider [phone] Jeff Villarreal Unavailable Unavailable Reason for Visit * Reason Comments Med Refill Encounter Details Date Type Department Care Team ([facility] st Contact Info) Description 04/28/2023 Refill [facility] [address] [place] [address] Jeff Villarreal FNP Social History Tobacco Use [...] Description 09/20/2024 1:15 PM EDT Office Visit [facility] [address] [place] [address] Ashanti August FNP [address] [place] [address] documented as of this encounter Visit Diagnoses Not on filedocumented in this encounter Additional Health Concerns Assessment Noted Time PHQ-9 Depression Total Score: 7 04/13/19 24 8:57 AM EST documented as of this encounter Care Teams Sterilization Technician Relationship Specialty Start Date End Date Ashanti August FNP [address] [place] [id number] PCP - General Family Medicine 11/24/21 Jeff Villarreal FNP [address] [place] [phone] Nurse Practitioner Family Medicine 02/20/23 documented as of this encounter
--- OUTSIDE RECORDS SUMMARY | 2024-08-08 22:09 | XMS_ITS | Encounter Summary ---
Author Organization [employer] Address [address] [place] [address] [address] [place] [address] Care Team Providers Care Hand Reamer Name Role Phone Ashanti August Primary Care Provider [phone] Jeff Villarreal Unavailable Unavailable Reason for Visit * Reason Comments Med Refill Encounter Details Date Type Department Care Team ([facility] st Contact Info) Description 07/30/2023 Refill [facility] [address] [place] [address] Jeff Villarreal FNP Depression, unspecified depression type [...] Description 09/20/2024 1:15 PM EDT Office Visit [facility] [address] [place] [address] Ashanti August FNP [address] [place] [address] documented as of this encounter Visit Diagnoses Diagnosis Depression, unspecified depression type documented in this encounter Additional Health Concerns Assessment Noted Time PHQ-9 Depression Total Score: 9 07/05/19 24 4:20 PM EDT documented as of this encounter Care Teams Hand Reamer Relationship Specialty Start Date End Date Ashanti August FNP [address] [place] [phone] PCP - General Family Medicine 11/24/21 Jeff Villarreal FNP [address] [place] [phone] Nurse Practitioner Family Medicine 02/20/23 documented as of this encounter
--- OUTSIDE RECORDS SUMMARY | 2024-08-08 22:09 | XMS_ITS | Referral Summary ---
Author Organization [facility] Address [address] [place] [address] Care Team Providers Care Tile Shader Name Role Phone Ashanti August Primary Care Provider [phone] Encounters Date Type Department Care Team Description 06/09/2024 4:50 PM EDT - 06/13/2024 2:26 PM EDT Hospital Encounter [facility] [address] [place] [address] Arie Fernandez MD Sungarian, Arno S, MD Faris, Khaldoun, MD Disorder of mediastinum (Primary Dx) Discharge Disposition: Home or Self Care (01) 06/09/2024 Orders Only [facility] - External Imaging [address] [place] [address] Radiology, External 06/09/2024 Orders Only [facility] - External Imaging [address] [place] [address] Radiology, External 06/09/2024 7:19 PM EDT Anesthesia Event [facility] Operating Room [address] [place] [address] Shannen Mejia MD [place]adonna, Antonino V., 06/09/2024 7:00 PM EDT - 06/09/2024 8:24 PM EDT Surgery [facility] Operating Room [address] [place] [address] Kofi Gaytan MD INCISION AND DRAINAGE OF INFECTED POSTOPERATIVE WOUND, COMPLEX [61264 (CPT??)] from Last 3 Months Allergies Active Allergy Reactions Criticality Noted Date Comments Codeine Unknown 06/09/2024 Medications acetaminophen (TYLENOL) 325 mg tablet Take 2 tablets (650 mg total) by mouth every 6 hours as needed for pain. 240 tablet 06/13/2024 1:54 PM EDT 5 Active atorvastatin (LIPITOR) 80 mg tablet Take 1 tablet (80 mg total) by mouth once a day. 30 tablet 06/13/2024 1:54 PM EDT 5 Active buPROPion XL (WELLBUTRIN XL) 150 mg tablet Take 1 tablet (150 mg total) by mouth once a day. 30 tablet 5 Active cloNIDine (CATAPRES) 0.1 mg tablet Take 1 tablet (0.1 mg total) by mouth 2 times a day. 60 tablet 5 Active docusate sodium (COLACE) 100 mg capsule Take 1 capsule (100 mg total) by mouth 2 times a day as needed (Constipation from Opioid). 60 capsule 06/13/2024 1:54 PM EDT [address] (CYMBALTA) 60 mg capsule Take 1 capsule (60 mg total) by mouth once a day. 30 capsule 5 Active gabapentin (NEURONTIN) 100 mg capsule Take 1 capsule (100 mg total) by mouth every 8 hours. 90 capsule 5 Active hydrOXYzine (ATARAX) 50 mg tablet Take 1 tablet (50 mg total) by mouth once a day. 30 tablet 06/13/2024 1:54 PM EDT 5 Active traZODone (DESYREL) 100 mg tablet Take 2 tablets (200 mg total) by mouth nightly. 60 tablet 06/13/2024 1:54 PM EDT 5 Active senna (SENOKOT) 8.6 mg tablet Take 1 tablet (8.6 mg total) by mouth once a day. 30 tablet 06/13/2024 1:54 PM EDT 5 Active QUEtiapine (SEROquel) 100 mg tablet Take 1 tablet (100 mg total) by mouth nightly. 30 tablet 03/13/202 5 Active methocarbamoL (ROBAXIN) 500 mg tablet Take 1 tablet (500 mg total) by mouth 4 times a day. 120 tablet 06/13/2024 1:54 PM EDT Active ipratropium-alb uteroL (DUO-NEB) 0.5-2.5 mg/3 mL nebulizer solution Inhale 1 vial (3 mL) via nebulizer every 4 hours as needed for wheezing or shortness of breath. 180 mL 06/13/2024 1:54 PM EDT Active risperiDONE (RisperDAL) 0.5 mg tablet Take 1 tablet (0.5 mg total) by mouth once a day. 30 tablet 06/13/2024 1:54 PM EDT Active polyethylene glycol 3350 (MIRALAX) 17 gram packet Take 1 packet (17 g total) by mouth daily as needed for constipation. Mix powder in 4 to 8 oz of water, juice, coffee, or tea prior to administration . 30 packet 06/13/2024 1:54 PM EDT 07/14/19 25 Active Problems Problem Noted Date [...] Not on file Procedures * Due to [place] state law, this organization might not be [...] 06/09/2024 8:09 PM EDT Disorder of mediastinum [place] COMPLEX DRAINAGE, WOUND 06/09/2024 7:14 PM EDT [...] Last 3 Months Results * Due to [place] state law, this organization might not be sharing negative HIV tests. * (ABNORMAL) POCT Glucose, interfaced (06/13/2024 12:41 PM EDT) Only the most recent of17 resultswithin the time period is included. Glucose, POCT 148(H) 70 - 99 mg/dL 06/13/2024 12:42 PM EDT [facility] Comment: The commercial helicopter pilot has not determined the efficacy of this test in Critically ill patients. ??[facility] defines Critically ill patients for the [...] LAB POCT ORDERABLES - DEVICE Final Result [facility] [address] [place] [address], * (ABNORMAL) Smear Review (06/12/2024 3:36 AM EDT) Platelet Estimate Adequate Adequate 06/12/2024 4:12 AM EDT [facility] CL[facility]ICAL PATHOLOGY LABORATORY RBC Morphology Present(A) Normal, No clinically significant RBC morphology present (ICSH guidelines, 2015). 06/12/2024 4:[address] [facility] [facility] CL[facility] PATH[facility] LAB[facility] Anisocytosis 2+(A) Not Present 06/12/2024 4:12 AM EDT [facility] [employer] [facility] CLINICAL PATHOLOG[facility] LABOR[facility]ORY Hypochromia 2+(A) Not Present 06/12/2024 4:[address] [facility]ENTERDraytek TechnologiesC[facility] Ovalocytes 2+(A) Not Present 06/12/2024 4:12 AM EDT [facility] Blood Structure of peripheral vein / Unknown Venipuncture / Unknown 06/12/2024 3:36 AM EDT 06/12/2024 3:42 AM EDT us Samreen VILLAGOMEZ LAB BLOOD ORDERABLES Fi nal Result [facility] CL[facility] LAB[facility]ORY [address] [place] [id number], [place] * (ABNORMAL) CBC Auto Differential (06/12/2024 3:36 AM EDT) Only the most recent of4 resultswithin the time period is included. WBC 7.2 3.8 - 10.8 10*3/uL 06/12/2024 4:[address] [facility]ENTERDraytek TechnologiesC[facility] RBC 4.29 3.80 - 5.10 10*6/uL 06/12/2024 4:[address] [facility]ENTERDray[facility] TechnologiesC[facility] Hemoglobin 11.9 11.7 - 15.5 g/dL 06/12/2024 4:[address] [facility]ENTERDraytek TechnologiesC[facility] Hematocrit 38.3 35.0 - 45.0 % 06/12/2024 4:12 AM EDT [facility] MCV 89.3 80.0 - 100.0 fL 06/12/2024 4:12 AM EDT [facility] MCH 27.7 27.0 - 33.0 pg 06/12/2024 4:12 AM EDT [facility] LAB[facility] MCHC 31.1(L) 32.0 - 36.0 g/dL 06/12/2024 4:12 AM EDT [facility] RDW 16.0(H) 11.0 - 15.0 % 06/12/2024 4:12 AM EDT [facility] Platelets 200 140 - 400 10*3/uL 06/12/2024 4:12 AM EDT [facility] MPV 9.9 7.5 - 12.5 fL 06/12/2024 4:12 AM EDT [facility] Neutrophil % 58.2 % 06/12/2024 4:12 AM EDT [facility] Immature Grans % 0.6 0.0 - 0.9 % 06/12/2024 4:12 AM EDT [facility] Lymphocyte % 31.6 % 06/12/2024 4:12 AM EDT [facility] Monocyte % 9.5 % 06/12/2024 4:12 AM EDT [facility] Eosinophil % 0.0 % 06/12/2024 4:12 AM EDT [facility] Basophil % 0.1 % 06/12/2024 4:12 AM EDT [facility] Neutrophil # 4.19 1.50 - 7.80 10*3/uL 06/12/2024 4:12 AM EDT [facility] Immature Grans # 0.04(H) <=0.03 10*3/uL 06/12/2024 4:12 AM EDT [facility] Lymphocyte # 2.30 0.85 - 3.90 10*3/uL 06/12/2024 4:12 AM EDT [facility] Monocyte # 0.70 0.20 - 0.95 10*3/uL 06/12/2024 4:12 AM EDT [facility] Eosinophil # <0.03 0.02 - 0.50 10*3/uL 06/12/2024 4:12 AM EDT [facility] Basophil # <0.03 0.00 - 0.20 10*3/uL 06/12/2024 4:12 AM EDT [facility] CL[facility] PATHOLOGY LAB[facility] nRBC % 0.0 /100 WBCs 06/12/2024 4:12 AM EDT [facility] CL[facility] PATHOLOG[facility] LAB[facility] nRBC # <0.01 <0.01 10*3/uL 06/12/2024 4:12 AM EDT [facility] Blood Structure of peripheral vein / Unknown Venipuncture / Unknown 06/12/2024 3:36 AM EDT 06/12/2024 3:42 AM EDT Samreen VILLAGOMEZ LAB BLOOD ORDERABLES Fi nal Result Performing Organization Address City/[facility]/ZIP Co de Phone Number [facility] LAB[facility] [address] [place] [address], [place] * Phosphorus (06/12/2024 3:36 AM EDT) Only the most recent of3 resultswithin the time period is included. Phosphorus 2.6 2.5 - 4.5 mg/dL 06/12/2024 4:11 AM EDT [facility] Blood Structure of peripheral vein / Unknown Venipuncture / Unknown 06/12/2024 3:36 AM EDT 06/12/2024 3:44 AM EDT us Diamond Jerome MD LAB BLOOD ORDERABLES Final Res ult [facility]ENTERDraytek TechnologiesMARIETTA [facility] [employer] CL[facility] PATHOLOG[facility] LABORATORY [address] [place] [address], [place] * Magnesium (06/12/2024 3:36 AM EDT) Only the most recent of4 resultswithin the time period is included. MG 2.0 1.6 - 2.4 mg/dL 06/12/2024 4:11 AM EDT [facility] Blood Structure of peripheral vein / Unknown Venipuncture / Unknown 06/12/2024 3:36 AM EDT 06/12/2024 3:44 AM EDT us Diamond Jerome MD LAB BLOOD ORDERABLES Final Res ult [facility] [address] [place] [address], * (ABNORMAL) Basic metabolic panel (06/12/2024 3:36 AM EDT) Only the most recent of4 resultswithin the time period is included. NA 141 135 - 145 mmol/L 06/12/2024 4:11 AM EDT [facility] K 4.0 3.5 - 5.3 mmol/L 06/12/2024 4:11 AM EDT [facility] Cl 107 98 - 107 mmol/L 06/12/2024 4:11 AM EDT [facility] CO2 24 22 - 32 mmol/L 06/12/2024 4:11 AM EDT [facility] BUN 15 7 - 23 mg/dL 06/12/2024 4:11 AM EDT [facility] Creatinine 0.71 0.50 - 1.20 mg/dL 06/12/2024 4:11 AM EDT [facility] Glucose 140(H) 65 - 99 mg/dL 06/12/2024 4:11 AM EDT [facility] Calcium 9.1 8.6 - 10.5 mg/dL 06/12/2024 4:11 AM EDT [facility] Anion Gap 10 5 - 15 06/12/2024 4:11 AM EDT [facility] eGFR >90 >=60 mL/min/1. 73m2 06/12/2024 4:11 AM EDT [facility] Comment:The estimated glomer ular [...] ORDERABLES Final Res ult Performing Organization Address City/[facility]/ZIP Co de Phone Number [facility] [address] [place] [address], * Vancomycin, Trough (06/11/2024 8:10 PM EDT) Vancomycin Trough 12.5 10.0 - 20.0 ug/mL 06/11/2024 8:44 PM EDT [facility] Comment: Before interpreting a [...] ORDERABLES Final Res ult Performing Organization Address [facility]/ZIP Co de Phone Number [facility] [address] [place] [address], [place] * TRANSTHORACIC ECHO (TTE) COMPLETE (06/11/2024 [...] obtain the completed interpretation. ? Workstation ID: [id number] Up-to-date CT equipment and radiation dose reduction [...] anterior discectomy, arthrodesis, and implantation cage at [facility]. 06/09/24 wash out of post op [...] C8 neural foramen (6:41). Resulting Agency Comment [id number] Procedure Note Milo Carrillo MD - 06/10/2024 EXAMINATION: CT of cervical spine without contrast TECHNIQUE: Helical volumetric CT acquisition of the cervical spine was performedwithout IV contrast. Multiplanar sagittal and coronal reformats performedon the acquisition console.. CLINICAL INFORMATION: 63 year old female reassess posterior mediastinalhematoma. Status post 06/04/24 C7-T1 anterior discectomy, arthrodesis, andimplantation cage at [facility]. 06/09/24 wash out of post ophematom [...] possible to obtain thecompleted interpretation. Workstation ID: [id number] Up-to-date CT equipment and radiation dose reduction techniques wereemployed. CTDIvol: 21.4 mGy. DLP: 541 mGy-cm. Diamond Jerome MD IMG CT PROCEDURES Final Result * MRSA/S aureus PCR, Nasal (06/10/2024 3:00 AM EDT) [facility] MRSA PCR, Nasal NOT DETECTED NOT DETECTED 06/10/2024 3:58 PM EDT [facility] S. aureus PCR, Nasal NOT DETECTED NOT DETECTED 06/10/2024 3:58 PM EDT [facility] Swab Nasal structure / Unknown Non-Blood Collection / Unknown 06/10/2024 3:00 AM EDT 06/10/2024 3:11 AM EDT [facility] - 06/10/2024 3:58 PM EDT [facility] Received Date:[id number] Alla Bernard NP LAB BODY FLUIDS AND STOOLS O RDERABLES Final Result [facility] [address] [facility] [address] Floor, [place] [address], [place] [phone] [facility] [address] [facility] [address] Floor, [place] [address], [place] [phone] * ECG 12 lead (06/10/2024 2:15 AM EDT) Only the most recent of2 resultswithin the time period is included. [facility] Ventricular Rate EKG 44 BPM MUSE EKG Atrial Rate 44 BPM MUSE EKG WI Interval 134 ms MUSE EKG QRS Interval 84 ms MUSE EKG QT Interval 534 ms MUSE EKG QTC Interval 456 ms MUSE EKG P [place] 47 degrees MUSE EKG R [place] 19 degrees MUSE EKG T Wave [place] 39 degrees MUSE EKG 06/10/2024 2:15 AM EDT 06/18/2024 11:39 AM EDT Impressions MUSE EKG - 06/18/2024 11:39 AM EDT MARKED SINUS BRADYCARDIA ABNORMAL ECG WHEN COMPARED WITH ECG OF 09-JUN-2024 16:52, (UNCONFIRMED) VENT. RATE HAS DECREASED BY ??54 BPM Confirmed by Hira Garcia ([id number]) on 06/18/2024 11:39:10 AM us Rx Specialist Dali FISCHER ECG ORDERABLES Final Resu lt [...] obtain the completed interpretation. ? Workstation ID: [id number] Narrative 06/10/2024 9:05 AM EDT COMPARISON: ??None FINDINGS AND Resulting Agency Comment [id number] Procedure Note Heriberto Johnston MD - 06/10/2024 [...] possible to obtain thecompleted interpretation. Workstation ID: [id number] us Alla Bernard SUPERVISOR PATCHING IMG XR PROCEDURES Final Resu lt * Tissue Exam (06/09/2024 8:09 PM EDT) Final Diagnosis Post Surgical Hematoma: - Organizing hemorrhage, consistent with clot. [facility] MANUAL 06/12/2024 9:18 AM EDT [facility] ANATOMIC PATHOLOGY LABORATORY at 0918 EDT Clinical History Pre-op diagnosis: Disorder of mediastinum [J98.59] [facility] MANUAL 06/12/2024 9:18 AM EDT [facility] ANATOM[facility] PATHOLOGY LABORATORY Gross Description 1. Other Received in formalin, labeled the patient's name, MRN, date of , and postsurgical hematoma , are multiple pink-red, irregular soft tissue fragments (5.0 x 4.5 x 1.5 cm in aggregate). The specimen is serially section, revealing a dark red, congealed cut surface, consistent with congealed blood clot. Electromagnet Crane Operator sections are submitted in cassette 1A. [facility] MANUAL 06/12/2024 9:18 AM EDT [facility] PATHOLOGY LABORATORY Gross Description User Grossing complete by Mayte Alas on 06/10/2024 10:01 AM [facility] MANUAL 06/12/2024 9:18 AM EDT [facility] PATHOLOGY LABORATORY Embedded Images [facility] MANUAL 06/12/2024 9:18 AM EDT [facility] ANATOMIC PATHOLOGY LABORATORY Resulting Agency Case was signed out at [facility], Department of Pathology, [employer] 3 CLIA [id number] [facility] MANUAL 06/12/2024 9:18 AM EDT [facility] ANATOM[facility] PATHOLOGY LABORATORY Report Header Surgical Pathology Report ? Case: [id number] ? Authorizing Provider: ??Kofi Gaytan MD ? Collected: ? 06/09/20242008 ? Ordering Location: ? [facility] ? Received: ?06/10/2024 0915 ? [facility] ? Operating Room ? Pathologist: ? Kerry Rizvi MD ? Specimen: ?Other, Post surgical hematoma, Neck ? 06/12/2024 9:18 AM EDT [facility] ANATOM[facility] PATHOLOG[facility] LABORAT[facility] Tissue Other / Unknown 06/09/2024 8 :09 PM EDT 06/10/2024 9:15 AM EDT Comment:Pre-op diagnosis: Disorder of mediastinum [J98.59] us Kofi Gaytan MD LAB PATHOLOGY/CYTOLOGY ORDER LOULOU Final Result [facility] ANATOM[facility] PATHOLOGY LABORATORY [address] [place] [id number], [facility] ANATOMIC PATHOLOG[facility] LABORATORY [address] [place] [address], [place] * Type and Screen (06/09/2024 6:16 PM EDT) ABO Blood Type O 06/09/2024 7:02 PM EDT [facility] RH Type Positive 06/09/2024 7:02 PM EDT [facility] Expiration Date/Time 2024-06-12 23:59 06/09/2024 7:02 PM EDT [facility] Antibody Screen Negative 06/09/2024 7:02 PM EDT [facility] Blood Structure of peripheral vein / Unknown Venipuncture / Unknown 06/09/2024 6:16 PM EDT 06/09/2024 6:16 PM EDT Arie Fernandez MD LAB BLOOD BANK TEST ORDERABLES Edited Result - Final Performing Organization Address [facility]/ZIP Co de Phone Number [facility] [address] [place] [address], * Concepcion Top (06/09/2024 5:17 PM EDT) Extra Tube Hold for add-ons. 06/09/2024 10:05 PM EDT [facility] CL[facility] PATHOLOGY LABORAT[facility] Comment:Auto resulted. Blood Structure of peripheral vein / Unknown 06/09/2024 5:17 PM EDT 06/09/2024 5:17 PM EDT Protocol Unv Adult Treatment LAB BLOOD ORDERA BLES Final Result [facility] PATHOLOGY LAB[facility]ATORY [address] [place] [address], [place] * Protime-INR (06/09/2024 5:17 PM EDT) PT 12.3 9.6 - 12.4 Seconds 06/09/2024 5:57 PM EDT [facility] CLINICAL PATHOLOGY LABORATORY INR 1.2 0.9 - 1.1 06/09/2024 5:57 PM EDT [facility] Comment:The optimal therapeu tic INR range for patients treated with Vitamin K antagonists (VKAS, e.g., Warfarin) is 2.0 to 3.5. Discuss the desired range with your doctor/care team. Blood Structure of peripheral vein / Unknown 06/09/2024 5:17 PM EDT 06/09/2024 5:17 PM EDT us Arie Fernandez MD LAB BLOOD ORDERABLES Final Res ult [facility] LAB[facility] [address] [place] [address], * HEART & VASCULAR - SCANNED (06/09/2024) Anatomical Region Laterality Modality Other us Onbase Scan Suzi SCANNED PROCEDURES Final Resu lt from Last [address] [place] [place] [address] Advance Directives Documents on File Type Date Recorded Patient Electromagnet Crane Operator Expl anation Health Care Proxy 06/10/2024 12:45 PM - * Presumed Full Code (Latest Code Status on File) Date Activated Date Inactivated Comments 06/12/2024 2:57 AM 06/13/2024 4:32 PM * Presumed Full Code Date Activated Date Inactivated Comments 06/09/2024 9:26 PM 06/12/2024 2:57 AM Healthcare Agents on File Name Relationship Healthcare Agent Relationship Communication Fara Aguirre Daughter Next of Kin Aby Salmeron Spouse Health Care Agent Care Teams Tile Shader Relationship Specialty Start Date End Date [facility] [address] [place] [id number] PCP - General 06/09/24
--- OUTSIDE RECORDS SUMMARY | 2024-08-08 22:09 | XMS_ITS | Clinical Summary ---
Author Organization [facility] Address [address] [place] [address] Care Team Providers Care Engine Lathe Tender Name Role Phone [facility] Primary Care Provider [phone] Allergies Active Allergy Reactions Criticality Noted Date [...] 30 tablet 06/13/2024 1:54 PM EDT Active traZODone (DESYREL) 100 mg tablet Take 2 tablets (200 mg total) by mouth nightly. 60 tablet 06/13/2024 1:54 PM EDT Active senna (SENOKOT) 8.6 mg tablet Take 1 tablet (8.6 mg total) by mouth once a day. 30 tablet 06/13/2024 1:54 PM EDT Active QUEtiapine (SEROquel) 100 mg tablet Take 1 tablet (100 mg total) by mouth nightly. 30 tablet Active methocarbamoL (ROBAXIN) 500 mg tablet Take [...] Description 06/09/2024 7:19 PM EDT Anesthesia Event [facility] Operating Room [address] [place] [address] Shannen Mejia MD Altadonna, Antonino V., 06/09/2024 7:00 PM EDT - 06/09/2024 8:24 PM EDT Surgery [facility] Operating Room [address] [place] [address] Kofi Gaytan MD INCISION AND DRAINAGE OF INFECTED POSTOPERATIVE WOUND, COMPLEX [[id number] (CPT??)] 06/09/2024 4:50 PM EDT - 06/13/2024 2:26 PM EDT Hospital Encounter [facility] [address] [place] [address] Arie Fernandez MD Sungarian, Arno S, MD Faris, Khaldoun, MD Disorder of mediastinum (Primary Dx) Discharge Disposition: Home or Self Care (01) 06/09/2024 Orders Only [facility] - External Imaging [address] [place] [address] Radiology, External 06/09/2024 Orders Only [facility] - External Imaging [address] [place] [address] Radiology, External from Last 3 Months Social [...] Additional history exists Procedures * Due to [place] state law, this organization might not be [...] 06/09/2024 8:09 PM EDT Disorder of mediastinum NM COMPLEX DRAINAGE, WOUND 06/09/2024 7:14 PM EDT [...] Last 3 Months Results * Due to [place] state law, this organization might not be sharing negative HIV tests. * (ABNORMAL) POCT Glucose, interfaced (06/13/2024 12:41 PM EDT) Only the most recent of17 resultswithin the time period is included. Glucose, POCT 148(H) 70 - 99 mg/dL 06/13/2024 12:42 PM EDT [facility] Comment: The marble polisher has not determined the efficacy of this test in Critically ill patients. ??[facility] defines Critically ill patients for the purpose [...] LAB POCT ORDERABLES - DEVICE Final Result [facility], POC [address] [place] [address], * (ABNORMAL) Smear Review (06/12/2024 3:36 AM EDT) [facility] Platelet Estimate Adequate Adequate 06/12/2024 4:12 AM EDT [facility] CLINICAL PATHOLOGY LABORATORY RBC Morphology Present(A) Normal, No clinically significant RBC morphology present (ICSH guidelines, 2015). 06/12/2024 4:12 AM EDT [facility] CLINICAL PATHOLOGY LABORATORY Anisocytosis 2+(A) Not Present 06/12/2024 4:12 AM EDT [facility] SYSTEMDevcon Security ServicesTN [facility]aysim CLINICAL PATHOLOGY LABORATORY Hypochromia 2+(A) Not Present 06/12/2024 4:12 AM EDT [facility] Ovalocytes 2+(A) Not Present 06/12/2024 4:12 AM EDT [facility] [employer] CLIN[facility]OLOG[facility] LABOR[facility] Blood Structure of peripheral vein / Unknown Venipuncture / Unknown 06/12/2024 3:36 AM EDT 06/12/2024 3:42 AM EDT Samreen VILLAGOMEZ LAB BLOOD ORDERABLES Fi nal Result [facility] LAB[facility] [address] [place] [address], [place] * (ABNORMAL) CBC Auto Differential (06/12/2024 3:36 AM EDT) Only the most recent of4 resultswithin the time period is included. WBC 7.2 3.8 - 10.8 10*3/uL 06/12/2024 4:12 AM EDT [facility] CL[facility] RBC 4.29 3.80 - 5.10 10*6/uL 06/12/2024 4:12 AM EDT [facility] Hemoglobin 11.9 11.7 - 15.5 g/dL 06/12/2024 4:12 AM EDT [facility] Hematocrit 38.3 35.0 - 45.0 % 06/12/2024 4:12 AM EDT [facility] LAB[facility] MCV 89.3 80.0 - 100.0 fL 06/12/2024 4:12 AM EDT [facility] LABOR[facility] MCH 27.7 27.0 - 33.0 pg 06/12/2024 4:12 AM EDT [facility]OLOG[facility] LABORAT[facility] MCHC 31.1(L) 32.0 - 36.0 g/dL 06/12/2024 4:12 AM EDT [facility] LAB[facility] RDW 16.0(H) 11.0 - 15.0 % 06/12/2024 4:12 AM EDT [facility] Platelets 200 140 - 400 10*3/uL 06/12/2024 4:12 AM EDT [facility] [employer] MPV 9.9 7.5 - 12.5 fL 06/12/2024 4:12 AM EDT [facility] Neutrophil % 58.2 % 06/12/2024 4:12 AM EDT [facility] Immature Grans % 0.6 0.0 - 0.9 % 06/12/2024 4:12 AM EDT [facility] Lymphocyte % 31.6 % 06/12/2024 4:12 AM EDT [facility] Monocyte % 9.5 % 06/12/2024 4:12 AM EDT [facility] Eosinophil % 0.0 % 06/12/2024 4:12 AM EDT [facility] LAB[facility] Basophil % 0.1 % 06/12/2024 4:12 AM EDT [facility] [employer] LAB[facility] Neutrophil # 4.19 1.50 - 7.80 10*3/uL 06/12/2024 4:12 AM EDT [facility] [employer] CL[facility] LABOR[facility] Immature Grans # 0.04(H) <=0.03 10*3/uL 06/12/2024 4:12 AM EDT [facility] [employer] CL[facility] LABOR[facility] Lymphocyte # 2.30 0.85 - 3.90 10*3/uL 06/12/2024 4:12 AM EDT [facility] LAB[facility] Monocyte # 0.70 0.20 - 0.95 10*3/uL 06/12/2024 4:12 AM EDT [facility] LABOR[facility] Eosinophil # <0.03 0.02 - 0.50 10*3/uL 06/12/2024 4:12 AM EDT [facility] CL[facility]OLOG[facility] LABOR[facility] Basophil # <0.03 0.00 - 0.20 10*3/uL 06/12/2024 4:12 AM EDT [facility] [employer] [facility] CL[facility] PATHOLOG[facility] LABORAT[facility] nRBC % 0.0 /100 WBCs 06/12/2024 4:12 AM EDT [facility] CLINICAL PATHOLOGY LABORATORY nRBC # <0.01 <0.01 10*3/uL 06/12/2024 4:12 AM EDT [facility] CLINICAL PATHOLOGY LABORATORY Blood Structure of peripheral vein / Unknown Venipuncture / Unknown 06/12/2024 3:36 AM EDT 06/12/2024 3:42 AM EDT Samreen VILLAGOMEZ LAB BLOOD ORDERABLES Fi nal Result [facility] [employer] CLINICAL PATHOLOGY LABORATORY [address] [place] [address], [place] * Phosphorus (06/12/2024 3:36 AM EDT) Only the most recent of3 resultswithin the time period is included. Phosphorus 2.6 2.5 - 4.5 mg/dL 06/12/2024 4:11 AM EDT [facility] [employer] CLINICAL PATHOLOGY LABORATORY Blood Structure of peripheral vein / Unknown Venipuncture / Unknown 06/12/2024 3:36 AM EDT 06/12/2024 3:44 AM EDT Diamond Jerome MD LAB BLOOD ORDERABLES Final Res ult [facility] CLINICAL PATHOLOGY LABORATORY [address] [place] [address], [place] * Magnesium (06/12/2024 3:36 AM EDT) Only the most recent of4 resultswithin the time period is included. MG 2.0 1.6 - 2.4 mg/dL 06/12/2024 4:11 AM EDT [facility] [employer] CLINICAL PATHOLOGY LABORATORY Blood Structure of peripheral vein / Unknown Venipuncture / Unknown 06/12/2024 3:36 AM EDT 06/12/2024 3:44 AM EDT us Diamond Jerome MD LAB BLOOD ORDERABLES Final Res ult [facility]ITALwebtideTN [facility] CLINICAL PATHOLOGY LABORATORY [address] [place] [address], * (ABNORMAL) Basic metabolic panel (06/12/2024 3:36 AM EDT) Only the most recent of4 resultswithin the time period is included. NA 141 135 - 145 mmol/L 06/12/2024 4:11 AM EDT [facility]ENTERChinac.comTN [facility] CLINICAL PATHOLOGY LABORATORY K 4.0 3.5 - 5.3 mmol/L 06/12/2024 4:11 AM EDT [facility]ENTERMiracleCordADAMS [facility] amaysim CLINICAL PATHOLOGY LABORATORY Cl 107 98 - 107 mmol/L 06/12/2024 4:11 AM EDT [facility] CLINICAL PATHOLOGY LABORATORY CO2 24 22 - 32 mmol/L 06/12/2024 4:11 AM EDT [facility] CLINICAL PATHOLOGY LABORATORY BUN 15 7 - 23 mg/dL 06/12/2024 4:11 AM EDT [facility] Royal[facility]TN [facility] CLINICAL PATHOLOGY LABORATORY Creatinine 0.71 0.50 - 1.20 mg/dL 06/12/2024 4:11 AM EDT [facility] SYSTEMBourbon & BootsADAMS [facility] am[facility] CLINICAL PATHOLOGY LABORATORY Glucose 140(H) 65 - 99 mg/dL 06/12/2024 4:11 AM EDT [facility] CLINICAL PATHOLOGY LABORATORY Calcium 9.1 8.6 - 10.5 mg/dL 06/12/2024 4:11 AM EDT [facility] CLINICAL PATHOLOGY LABORATORY Anion Gap 10 5 - 15 06/12/2024 4:11 AM EDT [facility] CL[facility]ICAL PATHOLOGY LABORATORY eGFR >90 >=60 mL/min/1. 73m2 06/12/2024 4:11 AM EDT [facility] SYSTEMBourbon & BootsADAMS [facility] am[facility] CLINICAL PATHOLOGY LABORATORY Comment:The estimated glomer ular [...] ORDERABLES Final Res ult Performing Organization Address [facility] de Phone Number [facility] CLINICAL PATHOLOG[facility] LABORATORY [address] [place] [address], * Vancomycin, Trough (06/11/2024 8:10 PM EDT) Vancomycin Trough 12.5 10.0 - 20.0 ug/mL 06/11/2024 8:44 PM EDT [facility] CLINICAL PATHOLOGY LABORATORY Comment: Before interpreting a [...] ORDERABLES Final Res ult Performing Organization Address [facility] Co de Phone Number [facility] CLINICAL PATHOLOGY LABORATORY [address] [place] [address], [place] * TRANSTHORACIC ECHO (TTE) COMPLETE (06/11/2024 [...] obtain the completed interpretation. ? Workstation ID: [id number] Up-to-date CT equipment and radiation dose reduction [...] discectomy, arthrodesis, and implantation cage at [facility]. 06/09/24 wash out of post op [...] C8 neural foramen (6:41). Resulting Agency Comment [id number] Procedure Note Milo Carrillo MD - 06/10/2024 EXAMINATION: CT of cervical spine without contrast TECHNIQUE: Helical volumetric CT acquisition of the cervical spine was performedwithout IV contrast. Multiplanar sagittal and coronal reformats performedon the acquisition console.. CLINICAL INFORMATION: 63 year old female reassess posterior mediastinalhematoma. Status post 06/04/24 C7-T1 anterior discectomy, arthrodesis, andimplantation cage at [facility]. 06/09/24 wash out of post ophematom [...] possible to obtain thecompleted interpretation. Workstation ID: [id number] Up-to-date CT equipment and radiation dose reduction techniques wereemployed. CTDIvol: 21.4 mGy. DLP: 541 mGy-cm. Diamond Jerome MD IMG CT PROCEDURES Final Result * MRSA/S aureus PCR, Nasal (06/10/2024 3:00 AM EDT) Pathologist [facility] MRSA PCR, Nasal NOT DETECTED NOT DETECTED 06/10/2024 3:58 PM EDT [employer] [facility] S. aureus PCR, Nasal NOT DETECTED NOT DETECTED 06/10/2024 3:58 PM EDT [employer] [facility] Swab Nasal structure / Unknown Non-Blood Collection / Unknown 06/10/2024 3:00 AM EDT 06/10/2024 3:11 AM EDT Narrative [facility] JULIANNE - 06/10/2024 3:58 PM EDT [facility] Received Date:[id number] Alla Bernard PM TECHNICIAN LAB BODY FLUIDS AND STOOLS O RDERABLES Final Result [facility] [address], [place] [address], [employer] [facility] [address], [place] [address], * ECG 12 lead (06/10/2024 2:15 AM EDT) Only the most recent of2 resultswithin the time period is included. Pathologist [facility] Ventricular Rate EKG 44 BPM MUSE EKG Atrial Rate 44 BPM MUSE EKG NM Interval 134 ms MUSE EKG QRS Interval 84 ms MUSE EKG QT Interval 534 ms MUSE EKG QTC Interval 456 ms MUSE EKG P [place] 47 degrees MUSE EKG R [place] 19 degrees MUSE EKG T Wave [place] 39 degrees MUSE EKG 06/10/2024 2:15 AM EDT 06/18/2024 11:39 AM EDT Impressions MUSE EKG - 06/18/2024 11:39 AM EDT MARKED SINUS BRADYCARDIA ABNORMAL ECG WHEN COMPARED WITH ECG OF 09-JUN-2024 16:52, (UNCONFIRMED) VENT. RATE HAS DECREASED BY ??54 BPM Confirmed by iHra Garcia ([id number]) on 06/18/2024 11:39:10 AM Telephone Solicitor Dali FISCHER ECG ORDERABLES Final Resu lt [...] obtain the completed interpretation. ? Workstation ID: [id number] Narrative 06/10/2024 9:05 AM EDT COMPARISON: ??None FINDINGS AND Resulting Agency Comment [id number] Procedure Note Heriberto Johnston MD - 06/10/2024 [...] possible to obtain thecompleted interpretation. Workstation ID: [id number] Alla Bernard NP IMG XR PROCEDURES Final Resu lt * Tissue Exam (06/09/2024 8:09 PM EDT) Final Diagnosis Post Surgical Hematoma: - Organizing hemorrhage, consistent with clot. [facility] MANUAL 06/12/2024 9:18 AM EDT [facility] SYSTEMDevcon Security ServicesTN amaysim [facility] ANATOMIC PATHOLOGY LABORATORY at 0918 EDT Clinical History Pre-op diagnosis: Disorder of mediastinum [J98.59] [facility] MANUAL 06/12/2024 9:18 AM EDT [facility] ANATOMIC PATHOLOGY LABORATORY Gross Description 1. Other Received in formalin, labeled the patient's name, MRN, date of , and postsurgical hematoma , are multiple pink-red, irregular soft tissue fragments (5.0 x 4.5 x 1.5 cm in aggregate). The specimen is serially section, revealing a dark red, congealed cut surface, consistent with congealed blood clot. It Operations Manager sections are submitted in cassette 1A. [facility] MANUAL 06/12/2024 9:18 AM EDT [facility] ANATOMIC PATHOLOGY LABORATORY Gross Description User Grossing complete by Mayte Alas on 06/10/2024 10:01 AM [facility] MANUAL 06/12/2024 9:18 AM EDT [facility] ANATOMIC PATHOLOGY LABORATORY Embedded Images [facility] MANUAL 06/12/2024 9:18 AM EDT [facility] SYSTEMDevcon Security ServicesTN [facility] THREE ANATOMIC PATHOLOGY LABORATORY Resulting Agency Case was signed out at [facility], Department of Pathology, [employer] 3 [place] [id number] [facility] MANUAL 06/12/2024 9:18 AM EDT [facility] SYSTEMBourbon & BootsAD[facility] amaysim THREE ANATOMIC PATHOLOGY LABORATORY Report Header Surgical Pathology Report ? Case: [id number] ? Authorizing Provider: ??Kofi Gaytan MD ? Collected: ? 06/09/20242008 ? Ordering Location: ? [facility] ? Received: ?06/10/2024914 ? [facility] ? Operating Room ? Pathologist: ? Kerry Rizvi MD ? Specimen: ?Other, Post surgical hematoma, Neck ? 06/12/2024 9:18 AM EDT [facility] ANATOMIC PATHOLOGY LABORATORY Tissue Other / Unknown 06/09/2024 8 :09 PM EDT 06/10/2024 9:15 AM EDT Comment:Pre-op diagnosis: Disorder of mediastinum [J98.59] us Kofi Gaytan MD LAB PATHOLOGY/CYTOLOGY ORDER LOULOU Final Result [facility] ANATOMIC PATHOLOGY LABORATORY [address] [place] [address], [place] [facility] ANATOMIC PATHOLOGY LABORATORY [address] [place] [address], * Type and Screen (06/09/2024 6:16 PM EDT) ABO Blood Type O 06/09/2024 7:02 PM EDT [facility] RH Type Positive 06/09/2024 [...] Result - Final [facility] [address] [place] [address], * Concepcion Top (06/09/2024 5:17 PM EDT) Extra Tube Hold for add-ons. 06/09/2024 10:05 PM EDT [facility] CLIN[facility] PATHOLOG[facility] LABORAT[facility] Comment:Auto resulted. Blood Structure of peripheral vein / Unknown 06/09/2024 5:17 PM EDT 06/09/2024 5:17 PM EDT Protocol Unv Adult Treatment LAB BLOOD ORDERA BLES Final Result [facility] CLINICAL PATHOLOGY LABORATORY [address] [place] [address], [place] * Protime-INR (06/09/2024 5:17 PM EDT) PT 12.3 9.6 - 12.4 Seconds 06/09/2024 5:57 PM EDT [facility] CL[facility] PATHOLOG[facility] LABOR[facility] INR 1.2 0.9 - 1.1 06/09/2024 5:57 PM EDT [facility] LABOR[facility] Comment:The optimal therapeu tic INR range for patients treated with Vitamin K antagonists (VKAS, e.g., Warfarin) is 2.0 to 3.5. Discuss the desired range with your doctor/care team. Blood Structure of peripheral vein / Unknown 06/09/2024 5:17 PM EDT 06/09/2024 5:17 PM EDT us Arie Fernandez MD LAB BLOOD ORDERABLES Final Res ult [facility] CL[facility]ICAL PATHOLOGY LABORATORY [address] [place] [address], [place] * HEART & VASCULAR - SCANNED (06/09/2024) Anatomical Region Laterality Modality Other us Onbase Scan Suzi SCANNED PROCEDURES Final Resu lt from Last 3 Months Insurance [facility] DAHLIA WOO [id number] Advance Directives Documents on File Type Date Recorded Patient It Operations Manager Expl anation Health Care Proxy 06/10/2024 12:45 PM 07- * Presumed Full Code (Latest Code Status on File) Date Activated Date Inactivated Comments 06/12/2024 2:57 AM 06/13/2024 4:32 PM * Presumed Full Code Date Activated Date Inactivated Comments 06/09/2024 9:26 PM 06/12/2024 2:57 AM Healthcare Agents on File Name Relationship Healthcare Agent Relationship Communication Faraedwin Aguirre Daughter Next of Kin Aby Salmeron Spouse Health Care Agent Care Teams Engine Lathe Tender Relationship Specialty Start Date End Date [facility] [address] [place] [address] PCP - General 06/09/24
--- OUTSIDE RECORDS SUMMARY | 2024-08-08 22:09 | XMS_ITS | Encounter Summary ---
Author Organization [employer] Address [address] [place] [address] 7t [place] [address] Care Team Providers Care Body Painter Name Role Phone [facility] Primary Care Provider [phone] Jeff Villarreal [facility] Unavailable Unavailable Reason for Visit * Reason Comments Med Refill Encounter Details Date Type Department Care Team ([facility] st Contact Info) Description 11/01/2023 Refill [facility] [address] [place] [address] [facility] [address] [place] [address] Chronic obstructive pulmonary disease, unspecified COPD type ([facility]/HCC) Social History Tobacco Use Types Packs/Day Years [...] Description 09/20/2024 1:15 PM EDT Office Visit [facility] [address] [place] [address] [place] Ashanti [facility] [address] [place] [address] documented as of this encounter Visit Diagnoses Diagnosis Chronic obstructive pulmonary disease, unspecified COPD type (CMS/HCC) documented in this encounter Additional Health Concerns Assessment Noted Time PHQ-9 Depression Total Score: 15 024 10:15 AM EDT documented as of this encounter Care Teams Body Painter Relationship Specialty Start Date End Date MelbourneAshanti garcia FNP [address] [place] [address] PCP - General Family Medicine 11/24/21 Jeff Villarreal FNP [address] [place] [address] Nurse Practitioner Family Medicine 02/20/23 documented as of this encounter
--- OUTSIDE RECORDS SUMMARY | 2024-08-08 22:09 | XMS_ITS | Continuity of Care Document ---
Author Organization [facility] [employer] [place], [place] in - [facility] Address [address] [place] [phone] Care Team Providers Care Spinning Mule Tender Name Role Phone FIDELIA DELGADO Primary Care Provider HIM CCA OTHER Assessment No assessment recorded. Plan of Treatment Reminders Order Date Submit Date Provider Last Modified By Organization Details Last Modified Time Details Appointments Urgent Care 2024 07:03P Judy Longoria MD Not available Not available Not available Lab rapid flu (A+B) [address], [phone] 08/08/2024 21:54:24 rapid SARS CoV 2 Ag, QL [place], respirato ry specimen [address], [phone] 08/08/2024 21:55:09 Referral None recorded. Procedures None [...] Name and Address Organization Details Recorded Time 40724 acetamino phen / hydrocodo ne medicatio n Not available Not available Not available 08/08/2024 57369 2 RxNorm Not Available [facility] - production 17:52:11 83565 oxycodone medicatio n Not available Not available [...] SNOMED-CT Code Diagnosis ICD10 Code Diagnosis Note [id number] SABRA LONGORIA MD Main - [facility] [address] [place] [phone] 08/08/2024 20:03:23 08/08/2024 21:20:30 Nausea, vomiting and diarrhea [id number] R11.2 R19.7 Evaluation in the field was performed by my truck loader and unloader colleague, as noted above, I provided real-time [...] in RLQ and LLQ, positive guarding per truck loader and unloader examSkin: Goddard, warm, dryCOVID and flu tests: NegativeAl lergies: [...] field.The patient was transporte d to the [facility] Emergency Department for urgent evaluation , imaging, and management , including IV resuscitat ion, laboratory workup, and possible surgical consultati on. Expect called. Primary care, consider__ _ Dispositio n:We discussed the situation and I recommende d referral to the emergency department . [facility]. Health Concerns Section Related Observation LastModified by Organization Detai ls LastModified Time None Recorded Concern Status LastModified by Organization Details LastModified Time None Recorded Payers Encounter Date Sequence Insurance Name Policy Number Policy Cuevas Covered Member ID Cuevas Member ID Guarantor Name 08/08/2024 1 [facility] - DOS ON OR AFTER 2022 - DUAL ELIGIBLE - RESIDENTIAL OPTIONS AND ONE CARE (MEDICARE REPLACEMENT/ADV ANTAGE - HMO) Sharri Salmeron [id number] Sharri Salmeron Notes Date Note Type Note [...] 2, Hypertension PMH Reviewed at 08/08/2024 - 17:52 Allergies Reviewed at 08/08/2024 - :52 Comments: [...] signs of when to seek emergency care. Post Acute Care Nurse Practitioner Organization Information for [facility] Business Legal Name: [employer]? Address: [address] [place] [address], Packaging Design Engineer: Cy Barber MD ALLEY No.: [id number] Post Acute Care Nurse Practitioner POC Test Results from [facility] Rapid COVID antigen (20:07:11) COVID: - Attachments uploaded as part of this test result can be found under Documents section. Rapid influenza antigen (20:07:12) Flu: +A Attachments uploaded as part of this test result can be found under Documents section. .................. .................. .................. .................. .................. .................. .................. ............... Post Acute Care Nurse Practitioner Note From [facility]: Dispatched to above [...] Flu test preformed, both negative, results uploaded. [facility] contacted, spoke with Dr. Longoria, advised of patient complaints, exam findings and test results. [facility] recommends transport to ER for further evaluation. Patient agrees with this plan. IV access was attempted but unsuccessful. [facility] responded. Verbal report given to [facility] Post Acute Care Nurse Practitioner, took over patient care, will transport to [facility]. SC8 clear. EOR. [facility] Lab Orders: rapid flu (A+B): Performed rapid SARS CoV 2 Ag, QL IA, respiratory specimen: Performed .................. .................. .................. .................. .................. .................. .................. ............... [facility] Consulted: Sabra Longoria .................. .................. .................. .................. .................. .................. .................. ............... Disposition: Fulfilled SABRA LONGORIA MD [address] [facility], [place], [address], [employer] 08/08/2024 21:20:27 OBGyn Episode No OBEpisode recorded.
[2024-08-08 22:19] VITALS: RESP 18
[2024-08-08] MEDS: Piperacillin Sodium/Tazobactam 3.375 GM in 0.9 % Sodium Chloride 50 ML IV (23:42)
[2024-08-09 00:34] VITALS: BP 97/59; PULSE 99; RESP 20; TEMP 37; O2SAT 92
[2024-08-09 00:36] VITALS: BP 97/59; PULSE 99; RESP 20; TEMP 37; O2SAT 92
--- NOTE | 2024-08-09 00:43 | PC.NURSE ---
UA not needed per MD
== END 2024-08-09 00:53 | disposition home or self-care (01) ==
PROVIDERS: Emergency Provider Internal Medicine
DX: K57.32 Diverticulitis of large intestine without perforation or abscess without bleeding (principal); R10.9 Unspecified abdominal pain
CPT/HCPCS: 36415; 74176; 80053; 83605; 83690; 85025; 96361; 96365; 96375; 99284; J2270; J2405; J2543

== ENCOUNTER → 2024-08-08 21:24 | Outpatient (BNV) | payer OTHER, SELFPAY | PROVIDERS: Emergency Provider Internal Medicine; Visit Provider Student in an Organized Health Care Education/Training Program | DX: K74.60 Unspecified cirrhosis of liver (principal); K57.32 Diverticulitis of large intestine without perforation or abscess without bleeding | CPT/HCPCS: 74176 ==

== ENCOUNTER 2025-01-06 | Outpatient (REF) | payer OTHER, SELFPAY ==
--- OUTSIDE RECORDS SUMMARY | 2025-01-13 11:16 | XMS_ITS | Clinical Summary ---
Author Organization [facility] Address [address] [place] [address] Care Team Providers Care Stock Mixer Name Role Phone Suri Diamond GABBY Primary [...] 90 07/18/2013 9:23 AM EDT Temperature 36.7 C (98 F) 07/18/2013 9:23 AM EDT Respiratory Rate 16 07/18/2013 9:23 AM EDT Oxygen Saturation - - Inhaled Oxygen Concentration - - Weight 85.7 kg (188 lb 14.4 oz) 07/18/2013 9:23 AM EDT Height 154.9 cm (5' 1 ) 07/18/2013 9:23 AM EDT Body Mass Index 35.69 07/18/2013 9:23 AM EDT Plan of Treatment Not on file Insurance [facility] [employer] PLAN Member Subscriber Plan / Payer (Ef fective 2013-Present) Name:Faviola Sharri Relation to Subscriber:Self Name:Faviola Sharri Payer ID:[id number] Group ID:[id number] Type:Medicaid Address: [facility] [address] [place] [address] Care Teams Stock Mixer Relationship Specialty Start Date End Date Suri Diamond NP PCP - General Family Medicine, WHITE WASHER PILER 12/17/12
--- OUTSIDE RECORDS SUMMARY | 2025-01-13 11:16 | XMS_ITS | Encounter Summary ---
Author Organization [employer] Address [address] [place] [address] [address] [place] [address] Care Team Providers Care Radar Operator Name Role Phone Ashanti August Primary Care Provider [phone] Jeff Villarreal Unavailable Unavailable Encounter Details Date Type Department Care Team (Late st Contact Info) Description 05/24/2022 Orders Only [facility] MEDICINE [address] [place] [address] Isabel Escalante LPN Social History Tobacco Use [...] as of this encounter Plan of Treatment Not on file documented as of this encounter Visit Diagnoses Not on filedocumented in this encounter Additional Health Concerns Assessment Noted Time PHQ-9 Depression Total Score: 13 023 2:44 PM EST documented as of this encounter Care Teams Radar Operator Relationship Specialty Start Date End Date Ashanti August FNP [address] [place] [address] PCP - General Family Medicine 11/24/21 Jeff Villarreal FNP [address] [place] [address] Nurse Practitioner Family Medicine 02/20/23 documented as of this encounter
--- OUTSIDE RECORDS SUMMARY | 2025-01-13 11:16 | XMS_ITS | Encounter Summary ---
Author Organization [employer] Address [address] [place] [address] 7t [place] [address] Care Team Providers Care Manager Budget Name Role Phone Ashanti August Primary Care Provider [phone] Jeff Villarreal Unavailable Unavailable Encounter Details Date Type Department Care Team ([facility] st Contact Info) Description 05/03/2022 Orders Only [facility] MED & PEDS [address] [place] [address] Elizabeth Meadows LPN Social History Tobacco Use [...] as of this encounter Care Teams Manager Budget Relationship Specialty Start Date End Date Ashanti August FNP [address] [place] [address] PCP - General Family Medicine 11/24/21 Jeff Villarreal FNP [address] [place] [address] Nurse Practitioner Family Medicine 02/20/23 documented as of this encounter
--- OUTSIDE RECORDS SUMMARY | 2025-01-13 11:16 | XMS_ITS | Encounter Summary ---
Author Organization [employer] Address [address] [place] [address] [address] [address] Care Team Providers Care Coal Feeder Operator Name Role Phone Ashanti August Primary Care Provider [phone] Jeff Villarreal Unavailable Unavailable Encounter Details Date Type Department Care Team (Late st Contact Info) Description 07/22/2022 Orders Only [facility] MED & PEDS [address] [place] [address] Elizabeth Meadows LPN Social History Tobacco Use [...] documented as of this encounter Care Teams Coal Feeder Operator Relationship Specialty Start Date End Date Ashanti August FNP [address] [place] [address] PCP - General Family Medicine 11/24/21 Jeff Villarreal FNP [address] [place] [address] Nurse Practitioner Family Medicine 02/20/23 documented as of this encounter
--- OUTSIDE RECORDS SUMMARY | 2025-01-13 11:16 | XMS_ITS ---
Author Name [facility] Organization Unknown Problems Problem Status Onset Date Problem Type Date of Resoluti on Source Ischemic colitis active 2021-11-24 ProblemAct H HCCT Encounters Encounter Type Encounter Reason Primary Diagnosis Location Date Emergency Anorexia Anorexia [facility] 12/15/2021 Ambulatory Vascular disorde r of intestine, unspecified [facility] 12/15/2021 Inpatient Vascular disorde r of intestine, unspecified [facility] 11/24/2021 Care Team Organization Name Specialty Phone Email Start Date End Da te [facility] PCP,No Primary Care 12/15/2021 [facility] NO PCP Primary Care 11/24/2021 12/15/2021
--- OUTSIDE RECORDS SUMMARY | 2025-01-13 11:16 | XMS_ITS | Encounter Summary ---
Author Organization [employer] Address [address] [place] [address] [address]t [place] [address] Care Team Providers Care Provider Scribe Name Role Phone Ashanti August Primary Care Provider [phone] Jeff Villarreal Unavailable Unavailable Encounter Details Date Type Department Care Team ([facility] st Contact Info) Description 09/20/2022 Orders Only [facility] MED & PEDS [address] [place] [address] Elizabeth Meadows LPN Social History Tobacco Use [...] documented as of this encounter Care Teams Provider Scribe Relationship Specialty Start Date End Date Ashanti August FNP [address] [place] [address] PCP - General Family Medicine 11/24/21 Jeff Villarreal FNP [address] [place] [address] Nurse Practitioner Family Medicine 02/20/23 documented as of this encounter
--- OUTSIDE RECORDS SUMMARY | 2025-01-13 11:17 | XMS_ITS | Encounter Summary ---
Author Organization [employer] Address [address] [place] [address] 7t [place] [address] Care Team Providers Care Nut Sorter Operator Name Role Phone [place] [facility] Primary Care Provider [phone] Jeff Villarreal MARKETING AUTOMATION ANALYST Unavailable Unavailable Reason for Visit * Reason Comments Med Refill Encounter Details Date Type Department Care Team (Late st Contact Info) Description 01/09/2025 Refill [facility] MED & PEDS [address] [place] [address] [facility] [address] [place] [address] Social History Tobacco Use Types Packs/Day Years [...] Answer Date Recorded Patient Health Questionnaire-9 Score 8 11/06/2024 Patient Health Questionnaire-9 Score 8 11/06/2024 Last PHQ-9: Questionnaire Data Not on file 0 11/06/2024 Housing Stability Answer Date Recorded What is [...] Date Recorded Patient Health Questionnaire-2 Score 2 11/06/2024 Internet Access Answer Date Recorded Internet Access [...] Assessment Noted Time PHQ-9 Depression Total Score: 8 11/07/19 25 11:00 AM EDT documented as of this encounter Care Teams Nut Sorter Operator Relationship Specialty Start Date End Date Ashanti Aguust FNP [address] [place] [address] PCP - General Family Medicine 11/24/21 Jeff Villarreal FNP [address] [place] [address] Nurse Practitioner Family Medicine 02/20/23 documented as of this encounter
--- OUTSIDE RECORDS SUMMARY | 2025-01-13 11:17 | XMS_ITS | Encounter Summary ---
Author Organization [employer] Address [address] [place] [address] 7t [place] [address] Care Team Providers Care Data Recovery Planner Name Role Phone [facility] Primary Care Provider [phone] Jeff Villarreal HAND SPRING REPAIRER Unavailable Unavailable Encounter Details Date Type Department Care Team (Late st Contact Info) Description 05/24/2023 Orders Only [facility] MEDICINE [address] [place] [address] [place] [facility] [address] [place] [address] Social History Tobacco Use Types Packs/Day Years [...] AM EDT documented as of this encounter Functional Status * Over the past 2 weeks, how often have you been bothered by any of the following problems? Question Answer Date of Assessment Author Patient Health Questionnaire -2 Score 3 05/25/2023 1:52 PM Alise Maciel MA * If you checked off any problems on this questionnaire so far, Question Answer Date of Assessment Author How difficult have these problems made it for you to do your work, take care of things at home, or get along with other people? Very difficult 05/25/2023 1:52 PM Alise Maciel MA * Over the past 2 weeks, how often have you been bothered by any of the following problems? Question Answer Date of Assessment Author Little interest or pleasure in doing things More than half the days 05/25/2023 1:52 PM Ewa Maciel MA Feeling down, depressed, or hopeless Several days 05/25/2023 1:52 PM Ewa Maciel MA Trouble falling or staying asleep, or sleeping too much Nearly every day 05/25/2023 1:52 PM Ewa Maciel [place] Feeling tired or having little energy More than half the days 05/25/2023 1:52 PM Ewa Maciel [place] Poor appetite or overeating More than half the days 05/25/2023 1:52 PM Ewa Maciel MA Feeling bad about yourself - or that you are a failure or have let yourself or your family down Several days 05/25/2023 1:52 PM Ewa Maciel MA Trouble concentrating on things, such as reading the newspaper or watching television Several days 05/25/2023 1:52 PM Ewa Maciel MA Moving or speaking so slowly that other people could have noticed? Or the opposite - being so fidgety or restless that you have been moving around a lot more than usual. Several days 05/25/2023 1:52 PM Ewa Maciel MA Thoughts that you would be better off or hurting yourself in some way Not at all 05/25/2023 1:52 PM Ewa Maciel MA Patient Health Questionnaire-9 Score 13 05/25/2023 1:52 PM Ewa Maciel MA documented as of this encounter Plan of Treatment Not on file documented as of this encounter Procedures Procedure [...] PM EST Narrative 05/24/2023 2:51 PM EST [address] [address] [address] Scan Report Signed Patient: Sharri Salmeron MR#: [id number] 703 : 1960 Acct:[id number] Age/Sex: 62 / F ADM Date: 05/24/23 Loc: HO.ED Attending Dr: Ordering Physician: Tanmay Alvarado MD Date of Service: 05/24/23 Procedure(s): CT cervical spine wo IV con Accession Number(s): [id number] cc: Tanmay Alvarado MD; [facility] EXAMINATION: CT HEAD WITHOUT CONTRAST CLINICAL INFORMATION: [...] in OV> 05/24/23 1447 DD/ 1331 TD/TT: Dumpman: Procedure Note Donotlenoter, Image - 05/24/[address] [place] [address] [address] Scan Report Signed Patient: Allyson Salmeron#: [id number] 703 : 1960cct:[id number] Age/Sex: 62 / FADM Date: 05/24/23 Loc: HO.ED Attending Dr: Ordering Physician: Tanmay Alvarado MD Date of Service: 05/24/23 Procedure(s): CT cervical spine wo IV con Accession Number(s): [id number] cc: Tanmay Alvarado MD; [facility] EXAMINATION: CT HEAD WITHOUT CONTRAST CLINICAL INFORMATION: [...] in OV> 05/24/23 1447 DD/ 1331 TD/TT: Dumpman: [facility] External Provider IMG CT PROCEDURES Final Result * CT Head w/o Contrast (05/24/2023 1:31 PM EST) Anatomical Region Laterality Modality Head, Neck Computed Tomogra phy 05/24/2023 1:31 PM EST Narrative 05/24/2023 2:51 PM EST [place] [address] CT Scan Report Signed Patient: Sharri Salmeron MR#: [id number] 703 : 1960 Acct:[id number] Age/Sex: 62 / F ADM Date: 05/24/23 Loc: HO.ED Attending Dr: Ordering Physician: Tanmay Alvarado MD Date of Service: 05/24/23 Procedure(s): CT head/brain wo IV con Accession Number(s): [id number] cc: Tanmay Alvarado MD; [facility] EXAMINATION: CT HEAD WITHOUT CONTRAST CLINICAL INFORMATION: [...] in OV> 05/24/23 1447 DD/ 1331 TD/TT: Dumpman: Procedure Note Donotuseinterpreter, Image - 05/24/[address] [address] [address] Scan Report Signed Patient: Allyson Salmeron#: [id number] 703 : 1960cct:[id number] Age/Sex: 62 / FADM Date: 05/24/23 Loc: HO.ED Attending Dr: Ordering Physician: Tanmay Alvarado MD Date of Service: 05/24/23 Procedure(s): CT head/brain wo IV con Accession Number(s): [id number] cc: [facility]ado [facility]; [facility] CT HEAD WITHOUT CONTRAST [...] in OV> 05/24/23 1447 DD/ 1331 TD/TT: Dumpman: [facility] External Provider IMG CT PROCEDURES Final Result documented in this encounter Visit Diagnoses Not on filedocumented in this encounter Additional Health Concerns Assessment Noted Time PHQ-9 Depression Total Score: 7 04/13/19 8:57 AM EST documented as of this encounter Care Teams Data Recovery Planner Relationship Specialty Start Date End Date Ashanti August FNP [address] [place] [address] PCP - General Family Medicine 11/24/21 Jeff Villarreal FNP [address] [place] [address] Nurse Practitioner Family Medicine 02/20/23 documented as of this encounter
--- OUTSIDE RECORDS SUMMARY | 2025-01-13 11:17 | XMS_ITS | Clinical Summary ---
Author Organization [employer] Address [address] [place] [address] [address] [place] [address] Care Team Providers Care Call Center Receptionist Name Role Phone Ashanti August MINE ANALYST Primary Care Provider [phone] Jeff Villarreal MINE ANALYST Unavailable Unavailable Allergies Active Allergy Reactions Criticality Noted Date Comments Hydrocodone-Acetaminophen Itching High 12/17/2012 Oxycodone Rash,Itching High 07/13/2016 Other reaction(s): Rash Oxycodone-Acetaminophen Itching 12/17/2012 Zolpidem Rash High 07/13/2016 Medications * This document contains information received from the source organization and may not represent a complete record from that organization. Spacer/Aero-Hold ing Chambers (Pro Comfort Spacer Adult) miscIndications: COPD exacerbation ([facility]) ([facility]) Use qid prn sob/cough with inhaler 1 each 09/21/19 23 Active albuterol 108 (90 Base) MCG/ACT inhalerIndicatio ns:COPD exacerbation ([facility]) ([facility]) Inhale 2 puffs every 6 (six) hours if needed for wheezing. 18 g 1 09/21/19 23 Active omeprazole (PriLOSEC) [address] capsule TAKE 1 CAPSULE BY MOUTH TWICE DAILY IN THE MORNING AND AT BEDTIME 04/20/19 24 Active Senna-Time 8.6 MG tablet Take 1 tablet by mouth Once per day. 03/31/20 23 Active traZODone (Desyrel) 100 MG tablet Take 2 tablets (200 mg) by mouth at bedtime. 180 tablet 3 08/31/19 24 Active glucose 4 g chewable tabletIndication s:Type 2 diabetes mellitus with stage 4 chronic kidney disease, without long-term current use of insulin ([facility]) Chew 4 tablets (16 g) if needed for low blood sugar. 50 tablet 12 01/31/20 24 025 Active lidocaine (Lidoderm) 5 % patchIndications :Cervical radiculopathy Apply 1 patch topically Once per day. Remove & discard patch within 12 hours or as directed by MD. 30 patch 3 01/31/20 24 Active gabapentin (Neurontin) 100 MG capsuleIndicatio ns:Cervical radiculopathy Take 1 capsule three times daily for chronic. May self increase evening dose up to 3 capsules (300mg) if needed for symptom relief. 90 capsule 11 04/24/19 25 Active cloNIDine (Catapres) 0.1 MG tablet Take 0.1 mg by mouth 2 times daily. 06/14/19 25 Active hydrOXYzine HCl (Atarax) 50 MG tablet Take 1 tablet by mouth Once per day. 06/14/19 25 Active ipratropium-albu terol (Duo-Neb) 0.5-2.5 mg/3 mL nebulizer solution Inhale 3 mL every 4 (four) hours if needed. 06/14/19 25 Active methocarbamol (Robaxin) 500 MG tablet Take 1 tablet by mouth 4 times daily. 06/14/19 25 Active QUEtiapine (SEROquel) 100 MG tablet Take 1 tablet by mouth at bedtime. 05/29/19 25 Active risperiDONE (RisperDAL) 0.5 MG tablet Take 1 tablet by mouth Once per day. 06/14/19 25 Active aspirin 81 MG chewable tabletIndication s:Type 2 diabetes mellitus with stage 3a chronic kidney disease, without long-term current use of insulin ([facility]) Chew 1 tablet (81 mg) Once per day. 30 tablet 11 06/25/19 25 026 Active buPROPion XL (Wellbutrin XL) 150 MG 24 hr tablet Take 1 tablet (150 mg) by mouth in the morning. Do not crush, chew, or split. 90 tablet 3 08/13/19 25 Active metFORMIN XR (Glucophage-XR) 500 MG 24 hr tabletIndication s:Type 2 diabetes mellitus with stage 3a chronic kidney disease, without long-term current use of insulin ([facility]) Take 1 tablet (500 mg) by mouth with evening meal. If tolerating well increase to twice daily Do not crush, chew, or split. 30 tablet 09/21/19 25 026 Active Alpha-Lipoic Acid 600 MG capsuleIndicatio ns:Neuropathy Take 1 capsule (600 mg) by mouth Once per day. 30 capsule 3 09/21/19 25 Active DULoxetine (Cymbalta) [address] capsuleIndicatio ns:Depression, unspecified depression type Take 1 capsule (60 mg) by mouth Once per day. 90 capsule 3 10/19/19 25 Active Dulaglutide (Trulicity) 3 MG/0.5ML solution auto-injectorInd ications:Type 2 diabetes mellitus with stage 3a chronic kidney disease, without long-term current use of insulin (HCC) Inject 3 mg under the skin 1 (one) time per week. 2 mL 11/07/19 25 Active Blood Glucose Monitoring Suppl (GNP Easy Touch Glucose Meter) deviceIndication s:Type 2 diabetes mellitus with stage 3a chronic kidney disease, without long-term current use of insulin (HCC) Use as directed to check blood sugar four times daily 1 each 11/07/19 25 Active Alcohol Swabs (Alcohol Prep) 70 % padsIndications: Type 2 diabetes mellitus with stage 3a chronic kidney disease, without long-term current use of insulin (HCC) Use as directed to check blood sugar twice daily 100 each 11/07/19 25 Active TRUEplus Lancets 33G miscIndications: Type 2 diabetes mellitus with stage 3a chronic kidney disease, without long-term current use of insulin (HCC) USE TO TEST BLOOD SUGAR TWICE DAILY 100 each 11/07/19 25 Active glucose blood (FREESTYLE LITE) test stripIndications :Type 2 diabetes mellitus with stage 3a chronic kidney disease, without long-term current use of insulin (HCC) USE TO TEST BLOOD SUGAR TWICE DAILY 100 each 11/07/19 25 Active Vitamin E 45 MG (100 UNIT) capsule TAKE 1 CAPSULE BY MOUTH EVERY MORNING 90 capsule 12/17/19 25 Active D3 Super Strength 50 MCG (2000 UT) capsuleIndicatio ns:Vitamin D deficiency TAKE 2 CAPSULES BY MOUTH ONCE DAILY IN THE MORNING 180 capsule 3 01/09/20 25 Active atorvastatin (Lipitor) 80 MG tablet TAKE 1 TABLET BY MOUTH AT BEDTIME 90 tablet 01/11/20 25 Active D3 Super Strength 50 MCG (2000 UT) capsuleIndicatio ns:Vitamin D deficiency TAKE 2 CAPSULES BY MOUTH ONCE DAILY IN THE MORNING 180 capsule 3 01/17/20 24 025 Discontinued Vitamin E 45 MG (100 UNIT) capsule TAKE 1 CAPSULE BY MOUTH EVERY MORNING 90 capsule 09/19/19 25 025 Discontinued atorvastatin (Lipitor) 80 MG tablet TAKE 1 TABLET BY MOUTH AT BEDTIME 90 tablet 10/19/19 25 025 Discontinued Active Problems Problem Noted Date Diagnosed Date Cervical radiculopathy 05/28/2024 Overview (09/24/2024): S/p surgery Chronic obstructive pulmonary disease 01/31/2024 Overview (01/31/2024): Theophylline added to regimen. Continue trelegy. Continue continuous 2l O2.Has lung CT screening pending [facility] Pulm [facility]. Lam Assessment & Plan (05/29/2024 9:29 AM EST): Stable, prn supplemental o2. Witnessed seizure-like activity (CMS/HCC) 2023 Major depressive disorder, r ecurrent, severe with psychotic features (CMS/HCC) 05/25/2023 Assessment & Plan (08/31/2023 3:47 PM [...] and drug-disease interactions. This provider has consulted [facility] clinical pharmacist regarding medication safety. Patient had EKG at ED on 2023 which was normal. She will F/U with therapist at [facility] and has discussed the possibility of referral to their prescriber when this provider leaves the practice. However, since this provider will be retiring, patient will be referred to new psychiatric prescriber from [facility], contracted with [facility]. Reviewed with patient that new provider will be outside the [facility] organization and patient gives verbal consent to share information with provider. Any issues or concerns contact [facility]. All her questions were answered and [...] q8 h prn anxiety. This provider consulted [facility] clinical pharmacist regarding medication safety. Patient had EKG at ED on 2023 which was normal. Provider will also consult patient's PCP about possibly changing her Atorvastatin 80 mg to alternative lipid med, as Atorvastatin can be associated with nightmares. She has started with new therapist at [facility] and has discussed the possibility of referral [...] She has started with new therapist at [facility] and has discussed the possibility of referral [...] Assessment & Plan (05/15/2023 4:54 PM EST): START amlodipine 5mg daily. Reviewed administration, risks, side effects Reviewed ED precautions to include chest pain, shortness of breath, severe headache, sudden vision changes or BP >=180/>=120 mmHg. Contact HC if three or more BP readings >140/90. Healthcare maintenance 01/15/2023 Overview (08/18/2023): Mammo: 08/2021-->repeat screening ordered today Pap: 2019-NIL HPV neg-->repeat 2024 C-scope: Followed by [facility] GI BMD: Routine age 66 Memory impairment [...] Assessment & Plan (01/15/2023 11:58 AM EDT): Discussed MRI findings with patient Evaluation negative for dementia or MCI thus far, suspect pt report of memory impairment s/t increased stress and chronic health conditions Will continue to monitor sx Hx of ischemic bowel disease 10/28/2022 Anemia 10/25/2022 Aortic valve sclerosis 10/25/2022 ELIZABET (acute kidney injury) 10/25/2022 Overview (05/15/2023): Follow up as scheduled with nephrology Avoid NSAID's and maintain hydration Assessment & Plan (05/29/2024 9:30 AM EST): Hx of, recent labs: Lab Results Component Value Date GLUCOSE 113 02/16/2024 NA 138 02/16/2024 K 3.4 02/16/2024 CO2 28 02/16/2024 CL 102 02/16/2024 BUN 9 02/16/2024 CREATININE 0.89 02/16/2024 Cirrhosis (CMS/HCC) 10/25/2022 Overview (09/24/2024): Dx MAFLD 2018, follows with [facility] GI Dr. Bautista 07/2019 EGD showed gastritis and changes suggestive of esophageal motility disorder .Colonoscopy showed moderate diverticulosis in the entire colon and hemorrhoids and no polyps 09/2019 A gastric emptying study was normal. 11/2021 CT scan showed early cirrhosis. 10/18/22 EGD (dysphagia) and colonoscopy was performed--Repeat colon advised in 3 yrs (due 10/2025) 02/[address] with no focal liver lesions F2, MELD 9 Continue liver surveillance imaging q. 6 months Dysphagia, pharyngoesophageal phase 10/25/2022 Overview (09/24/2024): 07/21 EGD showed gastritis and changes suggestive of esophageal motility disorder Colonoscopy showed moderate diverticulosis in the entire colon and hemorrhoids and no polyps 09/2019 A gastric emptying study was normal. Follows with [facility], repeat EGD 2022 Frequent falls 10/25/2022 Hyperkalemia 10/25/2022 Overview (05/15/2023): Lisinopril discontinued 04/2022 Lumbar radiculopathy 10/25/2022 Overview (10/28/2022): S/p multiple spinal surgeries through [facility] 09/2021 for cyst removal Followed by [facility] pain mngmt NIURKA (obstructive sleep apnea) 10/25/2022 Assessment & Plan (05/29/2024 9:29 AM EST): Resolved, in care with pulmonary, Supplemental oxygen prn at night Former smoker Pulmonary nodules 10/25/2022 Supplemental oxygen dependent 10/25/2022 Weak urinary stream 10/25/2022 Overview (10/28/2022): Followed by [facility] urology Bethanechol Tremor of both hands 09/20/2022 Assessment [...] Component Value Date HGBA1C 6.4 (A) 01/02/2023 Update labs prior to follow up Continue current regimen Assessment & Plan (03/08/2023 3:05 PM EST): Lab Results Component Value Date HGBA1C 6.4 (A) 01/02/2023 Well controlled Continue current regimen Assessment & Plan (01/15/2023 12:01 PM EDT): Lab Results Component Value Date HGBA1C 6.4 (A) 01/02/2023 Well controlled Continue current regimen Assessment & Plan (10/28/2022 10:33 AM EDT): Lab Results Component Value Date HGBA1C 6.3 (A) 10/25/2022 Well controlled Continue current regimen Assessment & Plan (09/20/2022 11:55 AM EDT): On Jardiance 10mg for now. Schedule an appt with PCP and told her to fu with Dr Maddox (renal). Counseled re more frequent low calorie/carb meals. Check fgstk 2x daily Encouraged physical activity as tolerated. Stage 3 chronic kidney disease (CMS/HCC) 021 Overview (10/28/2022): Followed by Dr. Baird, nephrology IBS (irritable bowel syndrome) 01/20/2021 Steatohepatitis 01/20/2021 Fibromyalgia 12/08/2020 Overview (10/28/2022): Lyrica 75mg t.i.d Followed by rheumatology Hyperlipidemia 02/09/2017 Overview (05/15/2023): Atorvastatin 80mg daily Arthritis 06/06/2013 Resolved Problems Problem Noted Date Diagnosed Date Resolved Date Preop examination 05/28/2024 09/24/2024 Assessment & Plan (05/29/2024 9:34 AM EST): EKG 05/29/24, no change from prior of note mildly prolonged QT, likely attributed to current medication regimen. Pt risk is acceptable for cervical discectomy and fusion scheduled for 05/30/24. Dysuria 09/12/2023 01/31/2024 Assessment & Plan (09/12/2023 [...] -Apt w PCP 10/13/2023 Acute respiratory failure wi th hypoxia (CMS/HCC) 08/18/2023 12/19/2023 COPD with acute exacerbation ([facility]) 02/14/2023 12/19/2023 Assessment & Plan (02/14/2023 1:54 [...] 10/28/2022 Urinary hesitancy 10/25/2022 10/28/2022 COPD exacerbation ([facility]) 09/20/2022 10/28/2022 Assessment & Plan (09/20/2022 11:54 AM EDT): She's clinically stable, no RD Increased Albuterol to quid and use the spacer. Continue Trelegy. I explained that albuterol may increase shakiness , palpitations and a bit of restlessness for few hours while using it. Recommended to increase water intake. Reconsult prn Ischemic colitis 11/24/2021 01/31/2024 Overview (10/28/2022): S/p emergency surgery Anabella 11/2021 Now followed by [facility] Vascular insufficiency of intestine 11/24/2021 01/31/2024 Renal function test abnormal 02/11/2021 10/28/2022 Chronic obstructive lung disease 01/17/2021 12/19/2023 Overview (05/15/2023): Trelegy ellipta Albuterol PRN Supplemental 02 35 pack year smoking hx [facility] pulmonology History of total knee arthroplasty 02/09/2017 10/28/2022 Depressive disorder 02/20/2013 10/29/19 23 Assessment & Plan (09/20/2022 12:01 PM EDT): She's doing well, no panic attacks at this time, seems to be dealing well with her son's addiction. FU closely with psycho pharacology clinic. Current smoker 12/17/2012 10/28/2022 Encounters Date Type Department Care Team Description 01/10/2025 Results Follow-Up [facility] [address] [place] [address] Ashanti August FNP POCT Glucose, POCT Hgb A1c, Pap Smear 01/09/2025 Refill [facility] [address] [place] [address] Ashanti August FNP 01/08/2025 Refill [facility] [address] [place] [address] Ashanti August FNP Vitamin D deficiency 01/06/2025 9:15 AM EDT Procedure Visit [facility] [address] [place] [phone] Ashanti August FNP Encounter for Papanicolaou smear for cervical cancer screening (Primary Dx); Type 2 diabetes mellitus with stage 3a chronic kidney disease, without long-term current use of insulin ([facility]); Encounter for immunization; Encounter for vaccination 01/06/2025 Orders Only [facility] [address] [place] [phone] Ashanti August FNP 01/06/2025 Travel 12/16/2024 Refill [facility] [address] [place] [address] [place] F[place] 11/06/2024 11:30 AM EDT Telemedicine [facility] [address] [place] [phone] Ashanti August FNP Type 2 diabetes mellitus with stage 3a chronic kidney disease, without long-term current use of insulin ([facility]/HCC) (Primary Dx) 10/18/2024 Refill [facility] [address] [place] [address] MataAshanti garcia, MINE ANALYST Depression, unspecified depression type 10/17/2024 Refill [facility] [address] [place] [phone] Ashanti August, MINE ANALYST Depression, unspecified depression type from Last 3 Months Immunizations Immunization Administration Dates Next Due Influenza Injectable Quadriv alant Preservative Free IIV4 MDCK 12/24/2021,01/10/2019 Influenza injectable quadriv alent IIV4 with preservative 02/09/2017,04/08/2016 Influenza injectable quadriv alent preservative free 01/02/2023,12/22/2020,11/27/2019,2017 Influenza, IIV3, injectable 12/22/2020,0 11/27/2019,03/22/2018,2016,04/08/2016,01/28/2015,12/17/2012 Influenza, seasonal, injecta ble, preservative free 01/06/2025,12/20/2023,01/04/2017 Pfizer Covid-19 Vaccine 12+ 01/06/2025,,02/14/2023 Pfizer Covid-19 Vaccine 12+ Bivalent 02/28/2022 Pfizer [...] Sign Reading Time Taken Comments Blood Pressure 126/72 01/06/2025 9:22 AM EDT Pulse 90 01/06/2025 9:22 AM EDT Temperature 36.3 C (97.3 F) 01/06/2025 9:22 AM EDT Respiratory Rate 20 01/06/2025 9:22 AM EDT Oxygen Saturation 96% 06/21/2024 1:22 PM EDT Inhaled Oxygen Concentration - - Weight 78.5 kg (173 lb) 01/06/2025 9:22 AM EDT Height 160 cm (5' 3 ) 01/06/2025 9:22 AM EDT Body Mass Index 30.65 01/06/2025 9:22 AM EDT Plan of Treatment Health Maintenance Due Date Last Done Comments CT Colonography 1960 FIT DNA/Cologuard 1960 FIT 1960 FOBT 1960 Sigmoidoscopy 1960 Alcohol/Substance Use Screening 1973 Lipid Panel 05/08/2024 05/08/2023, 07/2 08/2022, 03/02/2022, Additional history exists Diabetes: Foot Exam 08/13/2024 08/14/2023, 08/14/2023, 08/14/2023, Additional history exists SDOH Screening 04/12/2025 04/12/2024 Colonoscopy 05/04/2025 07/30/2019 Colorectal Cancer Screening 05/04/2025 Eye Exam 05/11/2025 05/11/2023, 11/2023, 05/11/2023, Additional history exists Diabetes: Hemoglobin A1C 07/07/2025 025, 09/20/2024, 06/21/2024, Additional history exists Mammogram 08/31/2025 09/01/2023, 08/20/2021 Disability Screening 09/20/2025 09/20/2024 Depression Screening 11/06/2025 11/06/2024, 11/07/19 25 Tobacco Screening 01/08/2026 01/08/2025 DTaP/Tdap/Td Vaccines (3 - Td or Tdap) 01/17/2029 01/17/2019, 11/05/2014 Cervical Cancer Screening 01/06/2030 HPV/Cotest 01/06/2030 01/06/2025, 05/04, 05/11/2016 Pap Smear 01/06/2030 01/06/2025 Zoster Vaccines Completed 02/23/2021, 12/16/2020 HIV Screening Completed 09/08/2021 Hepatitis C Screening Completed 09/08/2021 Pneumococcal Vaccine: 50+ Years Completed 11/17/2021 RSV Patients and Patients Aged 60 years or older Completed 07/02/2024 COVID-19 Vaccine Completed 01/06/2025, , 02/14/2023, Additional history exists Influenza Vaccine Completed 01/06/2025, , 01/02/2023, Additional history exists HIB Vaccines Aged Out [...] Procedure Name Priority Date/Time Associated Diagnosis Comments PAP SMEAR Routine 01/06/2025 9:36 AM EDT Encounter for Papanicolaou smear for cervical cancer screening HPV DNA, LOW/HIGH RISK Routine 01/06/2025 9:36 AM EDT POCT GLYCATED HEMOGLOBIN, TOTAL Routine 01/06/2025 9:24 AM EDT Type 2 diabetes mellitus with stage 3a chronic kidney disease, without long-term current use of insulin (HCC) POCT GLUCOSE Routine 01/06/2025 9:23 AM EDT Type 2 diabetes mellitus with stage 3a chronic kidney disease, without long-term current use of insulin (HCC) BI MAMMOGRAM SCREENING TOMOSYNTHESIS BILATERAL Routine 09/01/2023 [...] 9:52 AM EDT HM COLONOSCOPY Routine 07/30/2019 from Last 3 Months or Most Recently Relevant to Health Maintenance Results * (ABNORMAL) HPV DNA, Low/High Risk (01/06/2025 9:36 AM EDT) HPV High Risk Positive(A) Negative [facility] HPV Genotype 16 Negative Negative [facility] HPV Genotype 18 Negative Negative [facility] Comment:HPV testing performe d at [facility] (CLIA#[id number]), [address] [place] [id number].Testing for HPV was performed using the Kayden KOURTNEY 6800system. The presence of HPV in the female genital tract isassociated with a number of diseases, including cervicalcarcinoma. The HPV DNA high risk pool tests for HPV 31, 33,35, 39, 45, 51, 52, 56, 58, 59, 66 and 68. The testing forHPV 16 and 18 genotypes has also been performed. A positiveresult indicates detection of nucleic acid sequences fromone or more subtypes, whereas a negative result indicatessuch sequences were not detected. 01/06/2025 9:36 AM EDT 01/07/2025 6:04 AM EDT [facility] LAB BLOOD ORDERABLES Final Re sult [facility] [address] [place] [phone] * Pap Smear (01/06/2025 9:36 AM EDT) Swab Cervical swab / Unknown 01/06/2025 9:36 AM EDT 01/07/2025 6:00 AM EDT Narrative [facility] - 01/10/2025 2:24 PM EDT ----- ------- Name: Sharri Salmeron Age/Sex: 64/F : 1960 Unit#: [id number] Attend Dr: Re01/06/25 Status: PRE REF Location: [facility] Disch: ----- ------- SPEC : [id number] RECD: 01/07/25 STATUS: NANCY VENEGAS NUM: [id number] KARRIE: 01/06/[address]: Ashanti August MINE ANALYST ENTERED: 01/07/25 SP TYPE: Pap Smr [facility] DR: ORDERED: Pap Smear Interpretation Satisfactory for evaluation. Negative for intraepithelial lesion or malignancy. Mild inflammation. HPV High Risk: Positive HPV Genotyping 16: Negative HPV Genotyping 18: Negative Clinical Information LMP: Post menopausal Previous PAP test: NIL HPV negative Other surgery: Other history: Material Received ThinPrep-Cervical ----- ------- Signed (signature on file) JOSELO Burnham (ASC) 01/10/25 1424 ----- ------- END OF REPORT [facility] LAB CYTOLOGY ORDERABLES Final Result [facility] [address] [place] [address] [phone] * (ABNORMAL) POCT Hgb A1c (01/06/2025 9:24 AM EDT) Hemoglobin A1C 6.8(A) 4.0 - 5.7 % Blood 01/06/2025 9:24 AM EDT [facility] POINT OF CARE TEST ENTER/EDIT ORDERABLES Final Result * (ABNORMAL) POCT Glucose (01/06/2025 9:23 AM EDT) Glucose Blood, POC 207(A) 60 - 200 mg/dL Blood Capillary blood specimen / Unknown 01/06/2025 9:23 AM EDT [facility] POINT OF CARE TEST ENTER/EDIT ORDERABLES Final Result * BI Mammogram Screening Tomosynthesis Bilateral (09/01/2023 8:16 AM EDT) Anatomical Region Laterality Modality Breast Bilateral Mammography 09/01/2023 8:16 AM EDT Narrative 09/26/2023 4:37 PM EDT [facility] [address] [place] [address] Mammography Report Signed Patient: Sharri Salmeron MR#: [id number] : 1960 Acct:[id number] Age/Sex: 63 / F ADM Date: 09/01/23 Loc: [facility] Attending Dr: Ashanti August [facility] Ordering Physician: Ashanti August Results: 1Nega tive Date of Service: 09/01/23 Follow Up: 1 Year From Orig inal Mammogram Procedure(s): MM tomosynthesis screening BI Accession Number(s): [id number] cc: Ashanti August MINE ANALYST EXAMINATION: MM SCREENING DIGITAL BREAST TOMOSYNTHESIS, BILATERAL [...] in OV> 09/26/23 1634 DD/ 0816 TD/TT: Land Surveying Manager: Procedure Note Donotuseinterpreter, Image - 09/26/2023 [facility] [address] [place] [address] Mammography Report Signed Patient: Allyson Salmeron#: [id number] : 2Acct:[id number] Age/Sex: 63 / FADM Date: 09/01/23 Loc: [facility] Attending Dr: Ashanti August MINE ANALYST Ordering Physician: Ashanti August FNPResults: 1Nega tive Date of Service: 09/01/23Follow Up: 1 Year From Orig inal Mammogram Procedure(s): MM tomosynthesis screening BI Accession Number(s): [id number] cc: Ashanti August MINE ANALYST EXAMINATION: MM SCREENING DIGITAL BREAST TOMOSYNTHESIS, BILATERAL [...] in OV> 09/26/23 1634 DD/ 0816 TD/TT: Land Surveying Manager: [facility] MINE ANALYST IMG BI PROCEDURES Final Resul t * (ABNORMAL) Lipid Panel, Standard (05/08/2023 11:13 AM EST) Triglycerides 274(H) <150 mg/dL [facility] Comment:Desirable Triglyceri de: less than 150 mg/dLBorderline High Triglyceride 150-199 mg/dLHigh Triglyceride: 200-499 mg/dLVery High Triglyceride: greater than or equal to 5OO mg/dL Cholesterol 230(H) <200 mg/dL [facility] Comment:Desirable Cholestero l: less than 200 mg/dLBorderline High Cholesterol: 200-239 mg/dLHigh Cholesterol: greater than 239 mg/dL LDL Cholesterol Calculated 130(H) <100 mg/dL [facility] Comment:Desirable LDL: less than 100 mg/dLNear Optimal/Above Optimal LDL: 110- 129 mg/dLBorderline High LDL: 130-159 mg/dLHigh LDL: 160-189 mg/dLVery High LDL: greater than or equal to 190 mg/dL HDL Cholesterol 46 >40 mg/dL [facility] Comment:Desirable HDL: great er than 40 mg/dL Note: This HDL assay may give artificially low results in patients with liver disease. Blood Venous blood specimen / Unknown 05/08/2023 11:13 AM EST 05/08/2023 1:10 PM EST [facility] MINE ANALYST LAB BLOOD ORDERABLES Final Re sult Performing Organization Address City/[facility]/ZIP Co de Phone Number [facility] [address] [place] [address] [phone] * HEPATITIS C AB W/REFL TO HCV RNA, QN, PCR (09/08/2021 9:52 AM EDT) HEPATITIS C ANTIBODY NON-REACT [place] NON-REACT [place] [facility] INDEX 0.04 <1.00 [facility] Comment: HCV antibody was non-reactive. There is no laboratory evidence of HCV infection. In most cases, no further action is required. However, if recent HCV exposure is suspected, a test for HCV RNA (test code 31082) is suggested. For additional information please refer to http://education.SkillPages/faq/SNM60i8 (This link is being provided for informational/ educational purposes only.) 09/08/2021 9:52 AM EDT Micaela Hernandez NP HISTORICAL/NON ORDERABLE LABS F inal Result Performing Organization Address City/[facility]/ZIP Co de Phone Number [facility] [address] * HIV 1/2 ANTIGEN/ANTIBODY,FOURTH GENERATION W/RFL (09/08/2021 9:52 AM EDT) HIV-1/2 ANTIGEN AND ANTIBODIES, 4TH GENERATION W/ REFLEX NON-REACT [place] NON-REACT [place] [facility] Comment: HIV-1 antigen and HIV-1/HIV-2 antibodies were not detected. There is no laboratory evidence of HIV infection. PLEASE NOTE: This information has been disclosed to you from records whose confidentiality may be protected by state law. If your state requires such protection, then the state law prohibits you from making any further disclosure of the information without the specific written consent of the person to whom it pertains, or as otherwise permitted by law. A general authorization for the release of medical or other information is NOT sufficient for this purpose. For additional information please refer to http://education.SkillPages/faq/YXV027 (This link is being provided for informational/ educational purposes only.) The performance of this assay has not been clinically validated in patients less than 2 years old. 09/08/2021 9:52 AM EDT Micaela Hernandez DIRECTOR OF VOCATIONAL TRAINING LAB BLOOD ORDERABLES Final Resu lt [facility]ly [facility] [address] * Colonoscopy (07/30/2019) Colonoscopy Normal Normal Narrative KiaMarta recinos - 07/30/2019 Repeat in 3 years Historical Provider MD HEALTH MAINTENANCE Final Result from Last 3 Months or Most Recently Relevant to Health Maintenance Insurance [facility] < 65 [place] [id number] Care Teams Call Center Receptionist Relationship Specialty Start Date End Date Ashanti August FNP [address] [place] [address] PCP - General Family Medicine 11/24/21 Jeff Villarreal FNP [address] [place] [address] Nurse Practitioner Family Medicine 02/20/23
--- OUTSIDE RECORDS SUMMARY | 2025-01-13 11:17 | XMS_ITS | Encounter Summary ---
Author Organization [employer] Address [address] [place] [address] 7t [place] [address] Care Team Providers Care Motion Picture Photographer Name Role Phone Carmen [facility] Primary Care Provider [phone] Jeff Villarreal CLINICAL DATA ASSISTANT Unavailable Unavailable Encounter Details Date Type Department Care Team ([facility] st Contact Info) Description 01/06/2025 Orders Only [facility] [address] [place] [address] [facility] [address] [place] [address] Social History Tobacco Use Types Packs/Day Years [...] the past 12 months, has t he [employer]ner, gas, oil or water [employer] threatened to shut off services in your [...] Procedure Name Priority Date/Time Associated Diagnosis Comments HPV DNA, LOW/HIGH RISK Routine 01/06/2025 9:36 AM EDT documented in this encounter Results * (ABNORMAL) HPV DNA, Low/High Risk (01/06/2025 9:36 AM EDT) HPV High Risk Positive(A) Negative [facility] HPV Genotype 16 Negative Negative [facility] HPV Genotype 18 Negative Negative [facility] Comment:HPV testing performe d at [facility] (CLIA#[id number]), [address] [place] [address].Testing for HPV was performed using the Kayden [...] 9:36 AM EDT 01/07/2025 6:04 AM EDT [facility] BLOOD ORDERABLES Final Re sult [facility] [address] [place] [address] [phone] documented in this encounter Visit Diagnoses Not on filedocumented in this encounter Additional Health Concerns Assessment Noted Time PHQ-9 Depression Total Score: 8 11/07/19 25 11:00 AM EDT documented as of this encounter Care Teams Motion Picture Photographer Relationship Specialty Start Date End Date Ashanti August FNP [address] [place] [address] PCP - General Family Medicine 11/24/21 Jeff Villarreal FNP [address] [place] [address] Nurse Practitioner Family Medicine 02/20/23 documented as of this encounter
--- OUTSIDE RECORDS SUMMARY | 2025-01-13 11:17 | XMS_ITS | Encounter Summary ---
Author Organization [employer] Address [address] [place] [address] 7t [place] [address] Care Team Providers Care Computing Services Director Name Role Phone [facility] Primary Care Provider [phone] Jeff Villarreal Unavailable Unavailable Reason for Visit * Reason Onset Date Comments Results 01/10/2025 Encounter Details Date Type Department Care Team (Late st Contact Info) Description 01/10/2025 Results Follow-Up [facility] [address] [place] [address] [facility] [address] [place] [address] POCT Glucose, POCT Hgb A1c, Pap Smear Social History Tobacco Use Types Packs/Day Years [...] encounter Miscellaneous Notes * Telephone Encounter - Rebeca Fraser RN - 01/13/2025 10:58 AM EDT TC placed to patient [phone] regarding below message. RN left an VM for the patient to Red team nurses. RN will re-attempt. ----- Message from [facility] sent at 01/10/2025 3:57 PM EDT ----- Please let patient know that her pap was positive for HPV but the cells of her cervix appeared normal. Sometimes the body will clear HPV on it's own--we will repeat in 1 year. If she has questions or concerns I can give her a call. Thanks! ----- Message ----- From: Krystal Dockery [place] Sent: 01/06/2025 9:24 AM EDT To: Ashanti [place], NOTCH GRINDER documented in this encounter Plan of Treatment Not on file documented as of this encounter Visit Diagnoses Not on filedocumented in this encounter Additional Health Concerns Assessment Noted Time PHQ-9 Depression Total Score: 8 11/07/19 25 11:00 AM EDT documented as of this encounter Care Teams Computing Services Director Relationship Specialty Start Date End Date Ashanti August FNP [address] [place] [address] PCP - General Family Medicine 11/24/21 Jeff Villarreal FNP [address] [place] [address] Nurse Practitioner Family Medicine 02/20/23 documented as of this encounter
--- OUTSIDE RECORDS SUMMARY | 2025-01-13 11:17 | XMS_ITS | Encounter Summary ---
Author Organization [employer] Address [address] [place] [address] 7t [place] [address] Care Team Providers Care Agricultural Research Technician Name Role Phone [facility] Primary Care Provider [phone] Jeff Villarreal [facility] Unavailable Unavailable Reason for Visit * Reason Comments Med Refill Encounter Details Date Type Department Care Team (Late st Contact Info) Description 03/29/2024 Refill [facility] [address] [place] [address] [facility] [address] [place] [address] Primary hypertension Social History Tobacco Use Types [...] documented as of this encounter Care Teams Agricultural Research Technician Relationship Specialty Start Date End Date Ashanti August FNP [address] [place] [address] PCP - General Family Medicine 11/24/21 Jeff Villarreal FNP [address] [place] [address] Nurse Practitioner Family Medicine 02/20/23 documented as of this encounter
--- OUTSIDE RECORDS SUMMARY | 2025-01-13 11:17 | XMS_ITS | Encounter Summary ---
Author Organization [employer] Address [address] [place] [address] 7t [place] [address] Care Team Providers Care Nurses' Aide Name Role Phone [facility] Primary Care Provider [phone] Jeff Villarreal [facility] Unavailable Unavailable Reason for Visit * Reason Comments Med Refill Encounter Details Date Type Department Care Team (Late st Contact Info) Description 03/29/[address] [facility] [address] [place] [address] [facility] [address] [place] [address] Primary hypertension Social History Tobacco Use Types [...] documented as of this encounter Care Teams Nurses' Aide Relationship Specialty Start Date End Date Ashanti August FNP [address] [place] [address] PCP - General Family Medicine 11/24/21 Jeff Villarreal FNP [address] [place] [address] Nurse Practitioner Family Medicine 02/20/23 documented as of this encounter
--- OUTSIDE RECORDS SUMMARY | 2025-01-13 11:17 | XMS_ITS | Encounter Summary ---
Author Organization [employer] Address [address] [place] [address] [address] [place] [address] Care Team Providers Care Manufacturing Quality Inspector Name Role Phone [facility] Primary Care Provider [phone] Jeff Villarreal Unavailable Unavailable Reason for Visit * Reason Onset Date Comments Hospital Follow-up 06/14/2024 Encounter Details Date Type Department Care Team ([facility] st Contact Info) Description 06/14/2024 Telephone [facility] [address] [place] [address] [facility] [address] [place] [address] Hospital Follow-up Social History Tobacco Use Types [...] from pt requesting a HDF appt. Hospital: [facility] Date of admission: 06/09/24 Discharge date: 06/13/24 Diagnosed: Hemotma *Send message to [place] [facility] Care Coordinators documented in this encounter Plan of Treatment Not on file documented as of this encounter Visit Diagnoses Not on filedocumented in this encounter Additional Health Concerns Assessment Noted Time PHQ-9 Depression Total Score: 0 04/24/19 10:11 AM EST documented as of this encounter Care Teams Manufacturing Quality Inspector Relationship Specialty Start Date End Date Ashanti August FNP [address] [place] [address] PCP - General Family Medicine 11/24/21 Jeff Villarreal FNP [address] [place] [address] Nurse Practitioner Family Medicine 02/20/23 documented as of this encounter
--- OUTSIDE RECORDS SUMMARY | 2025-01-13 11:17 | XMS_ITS | Encounter Summary ---
Author Organization [employer] Address [address] [place] [address] 7t [place] [address] Care Team Providers Care Territory Account Representative Name Role Phone [facility] Primary Care Provider [phone] Jeff Villarreal [facility] Unavailable Unavailable Reason for Visit * Reason Comments Med Refill Encounter Details Date Type Department Care Team (Late st Contact Info) Description 03/20/2024 Refill [facility] [address] [place] [address] [facility] [address] [place] [address] Primary hypertension Social History Tobacco Use Types [...] documented as of this encounter Care Teams Territory Account Representative Relationship Specialty Start Date End Date Ashanti August FNP [address] [place] [address] PCP - General Family Medicine 11/24/21 Jeff Villarreal FNP [address] [place] [address] Nurse Practitioner Family Medicine 02/20/23 documented as of this encounter
--- OUTSIDE RECORDS SUMMARY | 2025-01-13 11:17 | XMS_ITS | Encounter Summary ---
Author Organization [employer] Address [address] [place] [address] 7[address] [place] [address] Care Team Providers Care Aircraft Charter Dispatcher Name Role Phone Ashanti August INSPECTOR WATCH TRAIN Primary Care Provider [phone] Jeff Villarreal INSPECTOR WATCH TRAIN Unavailable Unavailable Encounter Details Date Type Department Care Team (Late st Contact Info) Description 03/29/2024 Telephone [facility] MEDICINE [address] [place] [address] Heriberto العراقي, KeithD Social History Tobacco Use [...] documented as of this encounter Care Teams Aircraft Charter Dispatcher Relationship Specialty Start Date End Date Ashanti August FNP [address] [place] [address] PCP - General Family Medicine 11/24/21 Jfef Villarreal FNP [address] [place] [address] Nurse Practitioner Family Medicine 02/20/23 documented as of this encounter
--- OUTSIDE RECORDS SUMMARY | 2025-01-13 11:17 | XMS_ITS | Clinical Summary ---
Author Organization [facility] Address [address] [place] [address] Care Team Providers Care Regrinder Operator Name Role Phone Mata Ashnati Primary Care Provider Surgical History Surgery Date Site/Laterality Comments TOTAL KNEE ARTHROPLASTY Bilateral PROCEDURE: [place] ARTHRP KNE CONDYLE&PLATU MEDIAL&LAT COMPARTMENTS BLADDER SURGERY PROCEDURE: HISTORICAL BLADDER SURGERY OTHER SURGICAL HISTORY 09/21/2021 PROCEDURE: [place] PATRICIO FACETECTOMY & FORAMOTOMY 1 VRT SGM LUMBAR; COMMENT: L4-5 decompression, resection of left synovial cyst, placement of Coflex device, Dr. Trinidad CHOLECYSTECTOMY PROCEDURE: HISTORICAL CHOLECYSTECTOMY TUBAL LIGATION PROCEDURE: HISTORICAL TUBAL LIGATION OTHER SURGICAL HISTORY 01/24/2022 PROCEDURE: [place] ARTHRODESIS POSTERIOR INTERBODY 1 NTRSPC LUMBAR; COMMENT: Removal of Coflex device L4-5, L4-5 resection of bilateral synovial cysts and fusion, Dr. Trinidad OTHER SURGICAL HISTORY 02/20/2023 PROCEDURE: [place] PERQ VERT AGMNTJ CAVITY CRTJ UNI/BI CANNULJ LMBR; COMMENT: L2 kyphoplasty, Dr. Trinidad Medical History Medical History Date Comments Bronchitis DX:Bronchitis Diabetes mellitus type 2, co ntrolled, with complications ([facility] V24, [facility] V28) DX:Diabetes mellitus type 2, controlled, with complications ([facility]) Fibromyalgia DX:Fibromyalgia Hx of neck surgery DX:Hx of neck surgery; COMMENT: x 3 COPD (chronic obstructive pu lmonary disease) ([facility] V24, [facility] V28) DX:COPD (chronic o bstructive pulmonary disease) ([facility]) GERD (gastroesophageal reflux disease) DX:GERD (gastroesophageal reflux [...] Breast Cancer Screening 1961 Colorectal Cancer Screening: Colonoscopy 1961 Cervical Cancer Screening: Pap Smear 1982 Pneumococcal Vaccine: 50+ Years (1 of 1 - PCV) 08/24/2011 HIV Screening 03/13/2022 Hepatitis C Screening 03/13/2022 Social Influencers of Health Screening 03/13/2022 Depression Screening 04/03/2024 COVID-19 Vaccine ( season) 2024 02/23/2021, 07/08/2020, 06/10/2020 Influenza Vaccine (#1) 2024 , 11/27/2019, 01/10/2019, Additional history exists DTaP,Tdap,and [...] Documents on File Type Date Recorded Patient Underwriting Analyst Expl anation Health Care Decision (hx) 10/02/2021 AD EMERY DIRECTIVE Health Care Decision (hx) 10/02/2021 AD EMERY DIRECTIVE Health Care Decision (hx) 10/02/2021 AD EMERY DIRECTIVE Health Care Decision (hx) 10/02/2021 AD EMERY DIRECTIVE Health Care Decision (hx) 10/02/2021 AD EMERY DIRECTIVE Health Care Decision (hx) 10/02/2021 AD EMERY DIRECTIVE Care Teams Regrinder Operator Relationship Specialty Start Date End Date [facility] [address] [place] [phone] PCP - General 10/06/23
--- OUTSIDE RECORDS SUMMARY | 2025-01-13 11:17 | XMS_ITS | Encounter Summary ---
Author Organization [employer] Address [address] [place] [address] 7 [place] [address] Care Team Providers Care Optometry Professor Name Role Phone Ashanti August PROCEDURES ANALYST Primary Care Provider [phone] Jeff Villarreal Unavailable Unavailable Encounter Details Date Type Department Care Team (Late st Contact Info) Description 03/24/2022 Orders Only [facility] [address] [place] [address] Isabel Escalante LPN Social History Tobacco Use [...] on filedocumented in this encounter Care Teams Optometry Professor Relationship Specialty Start Date End Date Ashanti August FNP [address] [place] [address] PCP - General Family Medicine 11/24/21 Jeff Villarreal FNP [address] [place] [address] Nurse Practitioner Family Medicine 02/20/23 documented as of this encounter
--- OUTSIDE RECORDS SUMMARY | 2025-01-13 11:17 | XMS_ITS | Encounter Summary ---
Author Organization [employer] Address [address] [place] [address] 7t [place] [address] Care Team Providers Care Motor Vehicle License Clerk Name Role Phone [facility] Primary Care Provider [phone] Jeff Villarreal RESIDENT PHYSICIAN IN RADIOLOGY Unavailable Unavailable Reason for Visit * Reason Comments Med Refill Encounter Details Date Type Department Care Team (Late st Contact Info) Description 01/08/2025 Refill [facility] [address] [place] [address] [facility] [address] [place] [address] Vitamin D deficiency Social History Tobacco Use Types Packs/Day Years [...] as of this encounter Visit Diagnoses Diagnosis Vitamin D deficiency documented in this encounter Additional Health Concerns Assessment Noted Time PHQ-9 Depression Total Score: 8 11/07/19 25 11:00 AM EDT documented as of this encounter Care Teams Motor Vehicle License Clerk Relationship Specialty Start Date End Date Ashanti August FNP [address] [place] [address] PCP - General Family Medicine 11/24/21 Jeff Villarreal FNP [address] [place] [address] Nurse Practitioner Family Medicine 02/20/23 documented as of this encounter
--- OUTSIDE RECORDS SUMMARY | 2025-01-13 11:17 | XMS_ITS | Encounter Summary ---
Author Organization [employer] Address [address] [place] [address] 7t [place] [address] Care Team Providers Care Section Leader Screen Printing Name Role Phone [facility] Primary Care Provider [phone] Jeff Villarreal [facility] Unavailable Unavailable Reason for Visit * Reason Comments Med Refill Encounter Details Date Type Department Care Team (Late st Contact Info) Description 03/28/2024 Refill [facility] [address] [place] [address] [facility] [address] [place] [address] Primary hypertension Social History Tobacco Use Types [...] documented as of this encounter Care Teams Section Leader Screen Printing Relationship Specialty Start Date End Date Ashanti August FNP [address] [place] [address] PCP - General Family Medicine 11/24/21 Jeff Villarreal FNP [address] [place] [address] Nurse Practitioner Family Medicine 02/20/23 documented as of this encounter
--- OUTSIDE RECORDS SUMMARY | 2025-01-13 11:17 | XMS_ITS | Clinical Summary ---
Author Organization [facility] Address [address] [address] Phone Care Team Providers Care Financial Services Officer Name Role Phone Unavailable Primary Care [...] MRI 12/29/22 negative Last Assessment & Plan: Discussed MRI findings with patient Evaluation negative for dementia or MCI thus far, suspect pt report of memory impairment s/t increased stress and chronic health conditions Will continue to monitor sx H/O: gastrointestinal disease 10/28/2022 Cirrhosis 10/25/2022 03/07/2023 Overview (03/07/2023): Early REAL cirrhosis Followed by [facility] GI Aortic valve sclerosis [...] I will contact her with the results. S/p multiple spinal surgeries through [facility] 09/2021 for cyst removal Followed by [facility] pain mngmt Hyperkalemia 10/25/2022 03/07/2023 Obstructive sleep apnea syndrome 10/25/2022 03/07/2023 Multiple nodules of lung 10/25/2022 023 Sacroiliac disorder 10/25/2022 03/07/2023 Recurrent falls 10/25/2022 03/07/2023 Poor stream of urine 10/25/2022 03/07/2023 Overview (03/07/2023): Followed by [facility] urology Bethanechol Finding of hand region 09/20/2022 Overview (03/07/2023): Last Assessment & Plan: Due to increased albuterol use, trest of neurological exam is normal. No evidence of other EPS. Vascular insufficiency of intestine 11/24/2021 Ischemic colitis 11/24/2021 Overview (02/21/2022): Added automatically from request for surgery [id number] Congestive heart failure 02/27/2021 023 Overview (03/07/2023): [...] fu with surgeon and probably with PCP Jus mcknight Albuterol PRN [facility] pulmonology Fibromyalgia 12/08/2020 03/07/2023 Overview (03/07/2023): Lyrica 75mg t.i.d Followed by rheumatology Pain in left knee [...] Visit [facility] [address] [place] [address] Nguyễn Baird MD [address] [facility] [address] [place] [address] Health Maintenance Due Date Last Done Comments Breast Cancer Screening 1961 Colorectal Cancer Screening: Annual FOBT 2010 Colorectal Cancer Screening: Colonoscopy 2010 Colorectal Cancer Screening: Sigmoidoscopy 2010 Diabetes: Ophthalmology Exam 05/03/2020 Diabetes: Pedal Pulse Checked 05/03/2020 Diabetes: Sensory Foot Exam 05/03/2020 Diabetes: Visual Foot Exam 05/03/2020 Hepatitis B Vaccine (1 of 3 - Risk 3-dose series) 2021 Influenza Vaccine (#1) 2024 4, 01/02/2023, 12/24/2021, Additional history exists Diabetes: Hemoglobin A1C 12/21/20242 025, 04/24/2024, 01/31/2024, Additional history exists Pneumococcal Vaccine: 50+ Years Completed Pneumococcal Vaccine: Peds ( 0 to 5 Years) and At-Risk Patients (6 to 49 Years) Discontinued 11/17/2021 Procedures Procedure Name Priority Date/Time Associated Diagnosis [...] mmol/L PVNMA 12/17/2019 us [facility] Conversion LAB [id number] LICITED RESULTS Final Result PVNMA from Last 3 Months or Most Recently Relevant to Health Maintenance Insurance [facility] ([id number]) [place] [id number] [facility] ([id number])
--- OUTSIDE RECORDS SUMMARY | 2025-01-13 11:18 | XMS_ITS | Encounter Summary ---
Author Organization [employer] Address [address] [place] [address] 7 [place] [address] Care Team Providers Care Air Analyst Name Role Phone [facility] Primary Care Provider [phone] Jeff Villarreal Unavailable Unavailable Reason for Visit * Reason Onset Date Comments ER Follow-up 04/25/2023 Encounter Details Date Type Department Care Team ([facility] st Contact Info) Description 04/25/2023 Telephone [facility] MEDICINE [address] [place] [address] [facility] [address] [place] [address] ER Follow-up Social History Tobacco Use Types [...] 04/25/2023 9:39 AM EST Pt. Admitted to [facility] 04/19-04/21 for acute hyperkalemia, UTI and metabolic encephalopathy. Please contact for HDF, thank you! * Telephone Encounter - Kem Carrillo - 04/25/2023 9:24 AM EST Patient calling to report ED visit on : Date: 04/19/23 Hospital: [facility] Seen for: UTI Patient advised will forward to team nurse for follow up documented in this encounter Plan of Treatment Not on file documented as of this encounter Visit Diagnoses Not on filedocumented in this encounter Additional Health Concerns Assessment Noted Time PHQ-9 Depression Total Score: 7 04/13/19 8:57 AM EST documented as of this encounter Care Teams Air Analyst Relationship Specialty Start Date End Date Ashanti August FNP [address] [place] [address] PCP - General Family Medicine 11/24/21 Jeff Villarreal FNP [address] [place] [address] Nurse Practitioner Family Medicine 02/20/23 documented as of this encounter
--- OUTSIDE RECORDS SUMMARY | 2025-01-13 11:18 | XMS_ITS | Encounter Summary ---
Author Organization [employer] Address [address] [place] [address] 7 [place] [address] Care Team Providers Care Officer Captain Name Role Phone Mata, [facility] Primary Care Provider [phone] Jeff Villarreal Unavailable Unavailable Reason for Visit * Reason Onset Date Comments Hospital Follow-up 07/28/2023 Encounter Details Date Type Department Care Team ([facility] st Contact Info) Description 07/28/2023 Telephone [facility] MEDICINE 230 [place] [address] [facility] [facility] [address] [place], [place] [phone] Hospital Follow-up Social History Tobacco Use Types [...] AM EDT Tc from pt requesting a F appt. [place] [facility] Date of admission: 07/19 Discharge date: 07/25 Diagnosed: Massive UTI documented in this encounter Plan of Treatment Not on file documented as of this encounter Visit Diagnoses Not on filedocumented in this encounter Additional Health Concerns Assessment Noted Time PHQ-9 Depression Total Score: 9 07/05/19 24 4:20 PM EDT documented as of this encounter Care Teams Officer Captain Relationship Specialty Start Date End Date Ashanti August FNP [address] [place] [address] PCP - General Family Medicine 11/24/21 Jeff Villarreal FNP [address] [place] [address] Nurse Practitioner Family Medicine 02/20/23 documented as of this encounter
--- OUTSIDE RECORDS SUMMARY | 2025-01-13 11:18 | XMS_ITS | Encounter Summary ---
Author Organization [employer] Address [address] [facility] 7t [place] [address] Care Team Providers Care Ammonia Solution Preparer Name Role Phone [place] [facility] Primary Care Provider [phone] Jeff Villarreal [facility] Unavailable Unavailable Encounter Details Date Type Department Care Team (Late st Contact Info) Description 09/17/2024 Refill [facility] MED & PEDS [address] [place], [place] [phone] [facility] [address] [facility] [place] [address] Social History Tobacco Use Types Packs/Day Years [...] documented as of this encounter Care Teams Ammonia Solution Preparer Relationship Specialty Start Date End Date Ashanti August FNP 230 [place] [address] PCP - General Family Medicine 11/24/21 Jeff Villarreal FNP [address] [place] [address] Nurse Practitioner Family Medicine 02/20/23 documented as of this encounter
--- OUTSIDE RECORDS SUMMARY | 2025-01-13 11:18 | XMS_ITS | Encounter Summary ---
Author Organization [employer] Address [address] [facility] 7t [place] [address] Care Team Providers Care Home Planning Consultant Salesperson Name Role Phone Ashanti August LIVESTOCK NUTRITION TERRITORY MANAGER Primary Care Provider [phone] Jeff Villarreal Unavailable Unavailable Reason for Visit * Reason Comments Med Refill Encounter Details Date Type Department Care Team (Late st Contact Info) Description 04/28/2023 Refill [facility] MEDICINE [address] [place] [address] Jeff Villarreal FNP Social History Tobacco Use [...] documented as of this encounter Care Teams Home Planning Consultant Salesperson Relationship Specialty Start Date End Date Ashanti August FNP [address] [place] [address] PCP - General Family Medicine 11/24/21 Jeff Villarreal FNP [address] [place] [address] Nurse Practitioner Family Medicine 02/20/23 documented as of this encounter
--- OUTSIDE RECORDS SUMMARY | 2025-01-13 11:18 | XMS_ITS | Encounter Summary ---
Author Organization [employer] Address [address] [place] [address] 7t [place] [address] Care Team Providers Care Supervisor Brooder Farm Name Role Phone Ashanti August COSTUME SHOP MANAGER Primary Care Provider [phone] Jeff Villarreal Unavailable Unavailable Encounter Details Date Type Department Care Team (Late st Contact Info) Description 11/07/2022 Orders Only [facility] CH[facility] MED & PEDS [address] [place], [place] [phone] Elizabeth Meadows LPN Social History Tobacco Use [...] Noted Time PHQ-9 Depression Total Score: 24 10/25/ 023 10:26 AM EDT documented as of this encounter Care Teams Supervisor Brooder Farm Relationship Specialty Start Date End Date Ashanti August FNP [address] [place] [address] [phone] PCP - General Family Medicine 11/24/21 Jeff Villarreal FNP [address] [place] [address] Nurse Practitioner Family Medicine 02/20/23 documented as of this encounter
--- OUTSIDE RECORDS SUMMARY | 2025-01-13 11:18 | XMS_ITS | Clinical Summary ---
Author Organization [facility] Address [address] [place] [address] Care Team Providers Care Veterans Service Representative Name Role Phone [facility] Primary Care Provider [phone] Allergies Active Allergy Reactions Criticality Noted Date [...] 30 tablet 06/13/2024 1:54 PM EDT Active Active Problems Problem Noted Date Diagnosed [...] Tobacco Cessation:Counseling Given: Not Answered Comments:Quit smoking 2017 Alcohol Use Standard Drinks/Week Comments Not Currently [...] 69 06/13/2024 11:54 AM EDT Temperature 36.7 C (98.1 F) 06/13/2024 11:54 AM EDT Respiratory Rate 18 06/13/2024 11:54 AM EDT [...] ual Screening 04/03/2024 Hemoglobin A1C 10/22/2024 04/24/2024 Influenza Vaccine (#1) 2024 , 01/02/2023, 12/24/2021, Additional history exists CT Lung Cancer Screening (Baseline) 06/09/2025 06/09/2024 Basic Metabolic Panel 06/12/2025 06/12/2024 , 06/11/2024, 06/10/2024, Additional history exists DTaP,Tdap,and Td Vaccines (3 - Td or Tdap) 01/17/2029 01/17/2019, 11/05/2014 Zoster Vaccines Completed 02/23/2021, 12/16/2020 HIV Screening Completed 09/08/2021, 09/08/2021 Pneumococcal Vaccine: 50+ Years Completed Hepatitis C Screening Completed 11/24/2021 COVID-19 Vaccine Completed 01/31/2024, , 02/28/2022, Additional history exists Procedures * Due to [place] [employer] law, this organization might not be sharing negative HIV tests. Procedure Name Priority Date/Time Associated Diagnosis Comments BASIC METABOLIC PANEL Routine 06/12/2024 3:36 AM EDT from Last 3 Months or Most Recently Relevant to Health Maintenance Results * Due to [facility] law, this organization might not be sharing negative HIV tests. * (ABNORMAL) Basic metabolic panel (06/12/2024 3:36 AM EDT) NA 141 135 - 145 mmol/L 06/12/2024 4:11 AM EDT [facility] K 4.0 3.5 - 5.3 mmol/L 06/12/2024 4:11 AM EDT [facility] Cl 107 98 - 107 mmol/L 06/12/2024 4:11 AM EDT [facility] CO2 24 22 - 32 mmol/L 06/12/2024 4:11 AM EDT [facility] BUN 15 7 - 23 mg/dL 06/12/2024 4:11 AM EDT [facility] Creatinine 0.71 0.50 - 1.20 mg/dL 06/12/2024 4:11 AM EDT [facility] Glucose 140(H) 65 - 99 mg/dL 06/12/2024 4:11 AM EDT [facility] Calcium 9.1 8.6 - 10.5 mg/dL 06/12/2024 4:11 AM EDT [facility] Anion Gap 10 5 - 15 06/12/2024 4:11 AM EDT [facility] eGFR >90 >=60 mL/min/1. 73m2 06/12/2024 4:11 AM EDT [facility] Comment:The estimated glomer ular [...] MD LAB BLOOD ORDERABLES Final Res ult [employer] [facility] [address] [place] [address], from Last 3 Months or Most Recently Relevant to Health Maintenance Insurance [facility] Advance Directives Documents on File Type Date Recorded Patient Ball Mill Mixer Expl anation Health Care Proxy 06/10/2024 12:45 PM 07-1 * Presumed Full Code (Latest Code Status on File) Date Activated Date Inactivated Comments 06/12/2024 2:57 AM 06/13/2024 4:32 PM * Presumed Full Code Date Activated Date Inactivated Comments 06/09/2024 9:26 PM 06/12/2024 2:57 AM Healthcare Agents on File Name Relationship Healthcare Agent Relationship Communication Fara Aguirre Daughter Next of Kin Aby Salmeron Spouse Health Care Agent Care Teams Veterans Service Representative Relationship Specialty Start Date End Date [place] Ashanti [address] [place] [address] PCP - General 06/09/24
--- OUTSIDE RECORDS SUMMARY | 2025-01-13 11:18 | XMS_ITS | Encounter Summary ---
Author Organization [employer] Address [address] [facility] 7t [place] [address] Care Team Providers Care Filenet P8 Developer Name Role Phone Ashanti August [employer] Primary Care Provider [phone] Jeff Villarreal [employer] Unavailable Unavailable Encounter Details Date Type Department Care Team (Late st Contact Info) Description 02/16/2023 Abstract [facility] MEDICINE [address] [place] [address] Marta Adam Social History Tobacco Use Types [...] documented as of this encounter Care Teams Filenet P8 Developer Relationship Specialty Start Date End Date Ashanti August FNP [address] [place] [address] PCP - General Family Medicine 11/24/21 Jeff Villarreal FNP [address] [place] [address] Nurse Practitioner Family Medicine 02/20/23 documented as of this encounter
--- OUTSIDE RECORDS SUMMARY | 2025-01-13 11:18 | XMS_ITS | Clinical Summary ---
Author Organization [facility] Address [address] [place] [address] Care Team Providers Care Information Technology Consultant Name Role Phone Pcp, No Primary Care [...] (11/24/2021): Added automatically from request for surgery [id number] Ischemic bowel disease 11/24/2021 Social History Tobacco [...] 79 12/15/2021 3:45 PM EDT Temperature 35.5 C (95.9 F) 12/15/2021 3:45 PM EDT Respiratory Rate 16 12/15/2021 3:45 PM EDT [...] Zoster (Shingles) Vaccine (1 of 2) 08/24/2011 RSV Vaccine 60 years and old er and Patients (1 - Risk 60-74 years 1-dose series) 2021 Influenza Vaccine 11/01/2024 12/17/2012 COVID-19 Vaccine (1 - 2023-2 5 season) 2024 Hepatitis C Virus Screening Completed 11/24/2021 Hepatitis [...] Nonreactive Nonreactive S/CO 11/24/2021 11:21 AM EDT [facility] , [facility] Hepatitis B Core Antibody IgM Nonreactive Nonreactive 11/24/2021 11:21 AM EDT [facility] , [facility] Hepatitis B Surface Ag Screen Nonreactive Nonreactive 11/24/2021 11:21 AM EDT [facility] Hepatitis C Antibody 0.54 0.00 - 0.79 S/CO ratio 11/24/2021 11:21 AM EDT [facility] Hepatitis C Antibody Interpretation Nonreactive Nonreactive 11/24/2021 11:21 AM EDT [facility] Hepatitis Interpretation: Results inconsistent with acute Hepatitis A, B or C Virus infection. 11/24/2021 11:21 AM EDT [facility] Blood specimen (specimen) Serum specimen / Unknown 11/24/2021 6:13 AM EDT 11/24/2021 6:40 AM EDT us Mary Grace Huerta ACCOUNTING SUPPORT SPECIALIST LAB BLOOD ORDERABLES Final R [facility] [place] Mayomi [facility] [address] [place] [address] from Last 3 Months or Most Recently Relevant to Health Maintenance Insurance MEDICAID OUT OF [facility] [place] MEDICARE OUT OF [facility] Advance Directives * Full Code (Latest Code Status on File) Date Activated Date Inactivated Comments 11/24/2021 3:35 AM 12/15/2021 3:20 PM Care Teams Information Technology Consultant Relationship Specialty Start Date End Date Pcp, No PCP - General General Medicine 11/28/21
--- OUTSIDE RECORDS SUMMARY | 2025-01-13 11:18 | XMS_ITS | Encounter Summary ---
Author Organization [employer] Address [address] [place] [address] 7[address] [place] [address] Care Team Providers Care Addiction Professional Name Role Phone [facility] Primary Care Provider [phone] Jeff Villarreal [facility] Unavailable Unavailable Reason for Visit * Reason Comments Med Refill Encounter Details Date Type Department Care Team ([facility] st Contact Info) Description 11/01/2023 Refill [facility] MEDICINE [address] [place] [address] [facility] [address] [place] [address] Chronic obstructive pulmonary disease, unspecified COPD type [...] obstructive pulmonary disease, unspecified COPD type (CMS/HCC) (HCC) documented in this encounter Additional Health Concerns Assessment Noted Time PHQ-9 Depression Total Score: 15 024 10:15 AM EDT documented as of this encounter Care Teams Addiction Professional Relationship Specialty Start Date End Date Ashanti August FNP [address] [place] [address] PCP - General Family Medicine 11/24/21 Jeff Villarreal FNP [address] [place] [address] Nurse Practitioner Family Medicine 02/20/23 documented as of this encounter
--- OUTSIDE RECORDS SUMMARY | 2025-01-13 11:18 | XMS_ITS | Encounter Summary ---
Author Organization [employer] Address [address] [facility] 7t [place] [address] Care Team Providers Care Lead Laying And Gluing Machine Operator Name Role Phone Ashanti August Primary Care Provider [phone] Jeff Villarreal Unavailable Unavailable Reason for Visit * Reason Comments Med Refill Encounter Details Date Type Department Care Team (Late st Contact Info) Description 07/30/2023 Refill [facility] MEDICINE [address] [place] [address] Jeff Villarreal FNP Depression, unspecified depression type [...] documented as of this encounter Care Teams Lead Laying And Gluing Machine Operator Relationship Specialty Start Date End Date Ashanti August FNP [address] [place] [address] PCP - General Family Medicine 11/24/21 Jeff Villarreal FNP [address] [place] [address] Nurse Practitioner Family Medicine 02/20/23 documented as of this encounter
--- OUTSIDE RECORDS SUMMARY | 2025-01-13 11:18 | XMS_ITS | Encounter Summary ---
Author Organization [employer] Address [address] [place] [address] [address] [place] [address] Care Team Providers Care Harbor Pilot Name Role Phone [place] Primary Care Provider [phone] Jeff Villarreal Unavailable Unavailable Reason for Visit * Reason Onset Date Comments Med Refill 04/04/2023 Encounter Details Date Type Department Care Team ([facility] st Contact Info) Description 04/04/2023 Telephone [facility] MEDICINE [address] [place] [address] [place] [facility] [address] [place], [place] [phone] Med Refill Social History Tobacco Use Types [...] 2 MG tablet To be sent to: [facility] [place], [place] - [address] [place] [address] documented in this encounter Plan of Treatment Not on file documented as of this encounter Visit Diagnoses Not on filedocumented in this encounter Additional Health Concerns Assessment Noted Time PHQ-9 Depression Total Score: 0 03/06/20 23 12:04 PM EST documented as of this encounter Care Teams Harbor Pilot Relationship Specialty Start Date End Date Ashanti August FNP 230 [facility] [place] [address] PCP - General Family Medicine 11/24/21 Jeff Villarreal FNP [address] [place] [address] Nurse Practitioner Family Medicine 02/20/23 documented as of this encounter
--- OUTSIDE RECORDS SUMMARY | 2025-01-13 11:18 | XMS_ITS | Encounter Summary ---
Author Organization [employer] Address [address] [place] [address] [address] [address] Care Team Providers Care Peer Health Promoter Name Role Phone Ashanti August Primary Care Provider [phone] Jeff Villarreal Unavailable Unavailable Reason for Visit * Reason Comments Med Refill Encounter Details Date Type Department Care Team (Late st Contact Info) Description 10/16/2022 Refill [facility] MEDICINE [address] [place] [address] Jeff Villarreal FNP Depression, unspecified depression type [...] documented as of this encounter Care Teams Peer Health Promoter Relationship Specialty Start Date End Date Ashanti August FNP [address] [place] [address] PCP - General Family Medicine 11/24/21 Jeff Villarreal FNP [address] [place] [address] Nurse Practitioner Family Medicine 02/20/23 documented as of this encounter
--- OUTSIDE RECORDS SUMMARY | 2025-01-13 11:18 | XMS_ITS | Encounter Summary ---
Author Organization [employer] Address [address] [facility] 7t [place] [address] Care Team Providers Care Concrete Mixer Loader Truck Mounted Name Role Phone Ashanti August PHOTOCOMPOSING MACHINE OPERATOR Primary Care Provider [phone] Jeff Villarreal PHOTOCOMPOSING MACHINE OPERATOR Unavailable Unavailable Encounter Details Date Type Department Care Team ([facility] st Contact Info) Description 02/21/2023 Orders Only [facility] CHC MED & PEDS [address] [place] [address] Isabel Escalante LPN Social History Tobacco Use [...] documented as of this encounter Care Teams Concrete Mixer Loader Truck Mounted Relationship Specialty Start Date End Date Ashanti August FNP [address] [place] [address] PCP - General Family Medicine 11/24/21 Jeff Villarreal FNP [address] [place] [address] Nurse Practitioner Family Medicine 02/20/23 documented as of this encounter
== END 2025-01-06 00:01 | disposition home or self-care (01) ==
LOC: HO.LNP
PROVIDERS: Visit Provider Registered Nurse
DX: Z12.4 Encounter for screening for malignant neoplasm of cervix (principal); Z11.51 Encounter for screening for human papillomavirus (HPV)
CPT/HCPCS: 87626; 88175

== ENCOUNTER 2025-03-10 10:51 | Outpatient (REF) | payer OTHER, SELFPAY ==
[2025-03-10 13:43] LABS: Appearance Urine Clear; Glucose Urine UA Negative (Negative); PH 6.0 (5.0-9.0); Specific Gravity - Urine 1.020 (1.005-1.025); UMIC TRIGGER UACC YES
[2025-03-10 13:46] LABS: MANUAL DIFF FLAG NO
[2025-03-10 13:58] LABS: UACC Culture Trigger YES
[2025-03-10 14:01] LABS: Hematocrit 28.1 % (37.0-47.0); Imm Gran Abs Auto 0.01 X10*3/uL (0.00-0.03); Imm Gran Pct Auto 0.2 % (0.0-0.4); Lymphocytes Absolute Auto 1.9 X10*3/uL (1.2-4.9); Mean Corpuscular HGB Conc 29.2 g/dl (31.0-35.0); Mean Corpuscular Hemoglobin 21.1 pg (27.0-33.0); Mean Corpuscular Volume 72.2 fL (80.0-98.0); NRBC Abs Auto 0.000 X10*3/uL (0.0-0.012); NRBC Pct Auto 0.0 /100WBC (0.0-0.2); Platelet Count 291 X10*3/uL (160-400); Red Blood Count 3.89 X10*6/uL (4.20-5.50); White Blood Count 6.4 X10*3/uL (4.8-10.8)
[2025-03-10 14:03] LABS: Hemoglobin 8.2 g/dl (12.0-16.0)
[2025-03-10 14:11] LABS: Alanine Aminotransferase 31 U/L (0-31); Albumin Level 4.4 g/dL (3.5-5.0); Alkaline Phosphatase 149 U/L (39-117); Anion Gap 12 (12-20); Aspartate Amino Transferase 60 U/L (5-31); Blood Urea Nitrogen 13 mg/dL (9-16); Calcium 9.8 mg/dL (8.4-10.2); Carbon Dioxide 26 mmol/L (22-29); Chloride 107 mmol/L (96-108); Cholesterol 86 mg/dL (<200); Estimated Glomerular Filt Rate > 60; HDL Cholesterol 31 mg/dL (>40); Potassium 4.2 mmol/L (3.3-5.1); Sodium 141 mmol/L (135-145); Total Protein 7.9 g/dL (6.5-8.0); Triglycerides 69 mg/dL (<150)
[2025-03-10 14:37] LABS: Microalbum/Creatinine Ratio Ur 17.8 ug/mg cr (<30)
[2025-03-10 21:04] LABS: Folate 5.2 ng/mL (> or = 4.0); Vitamin B12 533 pg/mL (200-900)
[2025-03-11 04:48] LABS: HBS Num1 21.30 mIU/mL (0-7.99); HBsAGNum1 0.37 S/CO (0.00-0.99); Hepatitis B Surface Antigen Negative (Negative); ~HepC Num1 0.26 S/CO (0.00-0.79); ~Hepatitis B Surface Antibody REACTIVE (Nonreactive); ~Hepatitis C Antibody Nonreactive (Nonreactive)
[2025-03-11 06:59] LABS: Immunoglobulin A 436 mg/dL (70-320)
== END 2025-03-10 10:52 | disposition home or self-care (01) ==
LOC: HO.HHCL 10:51
PROVIDERS: Internal Medicine Gastroenterology; PCP Registered Nurse; Visit Provider Registered Nurse
DX: Z01.84 Encounter for antibody response examination (principal); E11.22 Type 2 diabetes mellitus with diabetic chronic kidney disease; N18.31 Chronic kidney disease, stage 3a; I97.621 Postprocedural hematoma of a circulatory system organ or structure following other procedure; K74.60 Unspecified cirrhosis of liver
CPT/HCPCS: 36415; 80053; 80061; 80076; 81001; 82043; 82248; 82306; 82570; 82607; 82746; 82784; 85025; 86140; 86364; 86381; 86706; 86708; 86803; 87086; 87340

== ENCOUNTER 2025-03-19 11:18 | Outpatient (REF) | payer OTHER, SELFPAY ==
[2025-03-19 12:30] LABS: MANUAL DIFF FLAG NO
[2025-03-19 13:03] LABS: Hematocrit 28.4 % (37.0-47.0); Hemoglobin 8.2 g/dl (12.0-16.0); Imm Gran Abs Auto 0.02 X10*3/uL (0.00-0.03); Imm Gran Pct Auto 0.3 % (0.0-0.4); Lymphocytes Absolute Auto 1.8 X10*3/uL (1.2-4.9); Mean Corpuscular HGB Conc 28.9 g/dl (31.0-35.0); Mean Corpuscular Hemoglobin 21.1 pg (27.0-33.0); Mean Corpuscular Volume 73.2 fL (80.0-98.0); NRBC Abs Auto 0.000 X10*3/uL (0.0-0.012); NRBC Pct Auto 0.0 /100WBC (0.0-0.2); Platelet Count 263 X10*3/uL (160-400); Red Blood Count 3.88 X10*6/uL (4.20-5.50); Reticulocytes Absolute 0.119 X10*6/uL (0.026-0.095); White Blood Count 6.1 X10*3/uL (4.8-10.8)
[2025-03-19 13:33] LABS: Iron 31 mcg/dL (30-160); Percent Iron Saturation 6 % (15-50); Total Iron Binding Capacity 516 mcg/dL (228-428); Unsaturated Iron Binding 485 ug/dL
[2025-03-19 13:57] LABS: Ferritin 20 ng/mL (10-250)
[2025-03-19 14:08] LABS: Folate 5.5 ng/mL (> or = 4.0)
--- OUTSIDE RECORDS SUMMARY | 2025-03-19 14:59 | XMS_ITS | Clinical Summary ---
Author Organization [facility] Address [address] [place] [address] Care Team Providers Care Split And Drum Room Supervisor Name Role Phone Mata Ashanti Primary Care Provider [phone] Surgical History Surgery Date Site/Laterality Comments TOTAL KNEE ARTHROPLASTY Bilateral PROCEDURE: [facility] ARTHRP KNE CONDYLE&PLATU MEDIAL&LAT COMPARTMENTS BLADDER SURGERY PROCEDURE: HISTORICAL BLADDER SURGERY OTHER SURGICAL HISTORY 09/21/2021 PROCEDURE: [facility] PATRICIO FACETECTOMY & FORAMOTOMY 1 VRT SGM LUMBAR; COMMENT: L4-5 decompression, resection of left synovial cyst, placement of Coflex device, Dr. Trinidad CHOLECYSTECTOMY PROCEDURE: HISTORICAL CHOLECYSTECTOMY TUBAL LIGATION PROCEDURE: HISTORICAL TUBAL LIGATION OTHER SURGICAL HISTORY 01/24/2022 PROCEDURE: [facility] ARTHRODESIS POSTERIOR INTERBODY 1 NTRSPC LUMBAR; COMMENT: Removal of Coflex device L4-5, L4-5 resection of bilateral synovial cysts and fusion, Dr. Trinidad OTHER SURGICAL HISTORY 02/20/2023 PROCEDURE: [facility] PERQ VERT AGMNTJ CAVITY CRTJ UNI/BI CANNULJ LMBR; COMMENT: L2 kyphoplasty, Dr. Trinidad Medical History Medical History Date Comments Bronchitis DX:Bronchitis Diabetes mellitus type 2, co ntrolled, with complications ([facility] V24, [facility] V28) DX:Diabetes mellitus type 2, controlled, with complications ([facility]) Fibromyalgia DX:Fibromyalgia Hx of neck surgery DX:Hx of neck surgery; COMMENT: x 3 COPD (chronic obstructive pu lmonary disease) ([facility] V24, [facility] V28) DX:COPD (chronic o bstructive pulmonary disease) ([facility]) GERD (gastroesophageal reflux disease) DX:GERD (gastroesophageal reflux disease) Steatohepatitis DX:Steatohepatit is Essential (primary) hypertension DX:Essential (primary) hypertension Mixed hyperlipidemia DX:Mixed hy perlipidemia Depression with anxiety DX:Depre ssion with anxiety Peripheral neuropathy DX:Periphe ral neuropathy Social History Tobacco Use Types Packs/Day Years Used Date Smoking Tobacco: Former Cigarettes 0 Q uit: 04/03/2011 Smokeless Tobacco: Never Alcohol [...] Documents on File Type Date Recorded Patient Manager Product Design Expl anation Health Care Decision (hx) 10/02/2021 AD EMERY DIRECTIVE Health Care Decision (hx) 10/02/2021 AD EMERY DIRECTIVE Health Care Decision (hx) 10/02/2021 AD EMERY DIRECTIVE Health Care Decision (hx) 10/02/2021 AD EMERY DIRECTIVE Health Care Decision (hx) 10/02/2021 AD EMERY DIRECTIVE Health Care Decision (hx) 10/02/2021 AD EMERY DIRECTIVE Care Teams Split And Drum Room Supervisor Relationship Specialty Start Date End Date [facility] [address] [place] [phone] PCP - General 10/06/23
--- OUTSIDE RECORDS SUMMARY | 2025-03-19 14:59 | XMS_ITS | Encounter Summary ---
Author Organization [employer] Address [address] [place] [address] 7[address] [place] [address] Care Team Providers Care Technology Applications Consultant Name Role Phone [facility] Primary Care Provider [phone] Jeff Villarreal RETIREMENT MANAGER Unavailable Unavailable Juan Holbrook PharmD Unavailable [phone] Encounter Details Date Type Department Care Team (Late st Contact Info) Description 05/24/[address] [facility] [address] [place] [address] [facility] [address] [place] [address] Social History Tobacco Use Types Packs/Day Years [...] 05/25/2023 1:52 PM Alise Maciel MA * How difficult have these problems made it for you to do your work, take care of things at home, or get along with other people? Answer Date of Assessment Author Very difficult 05/25/2023 1:52 PM Ewa Maciel MA * Over the past 2 [...] than half the days 05/25/2023 1:52 PM EST Ewa Campa [place] Feeling bad about yourself - or that you are a failure or have let yourself or your family down Several days 05/25/2023 1:52 PM EST Ewa Campa [place] Trouble concentrating on things, such as reading the newspaper or watching television Several days 05/25/2023 1:52 PM EST Ewa Campa [place] Moving or speaking so slowly that other people could have noticed? Or the opposite - being so fidgety or restless that you have been moving around a lot more than usual. Several days 05/25/2023 1:52 PM Ewa Maciel MA Thoughts that you would be better off or hurting yourself in some way Not at all 05/25/2023 1:52 PM EST Ewa Campa MA Patient Health Questionnaire-9 Score 13 05/25/2023 1:52 PM Ewa Maciel [place] documented as of this encounter Plan of Treatment Upcoming Encounters Date Type Department Care Team (Late st Contact Info) Description 04/14/2025 11:00 AM EST Medication Management [facility] [address] [place] [address] Juan Holbrook, PharmD [address] [place] [address] documented as of this encounter Procedures Procedure [...] PM EST Narrative 05/24/2023 2:51 PM EST [facility] [address] [place] [address] [address] Scan Report Signed Patient: Sharri Salmeron MR#: [id number] 703 : 1960 Acct:[id number] Age/Sex: 62 / F ADM Date: 05/24/23 Loc: HO.ED Attending Dr: Ordering Physician: Tanmay Alvarado MD Date of Service: 05/24/23 Procedure(s): CT cervical spine wo IV con Accession Number(s): [id number] cc: Tanmay Alvarado MD; [facility] EXAMINATION: CT HEAD WITHOUT CONTRAST CLINICAL [...] in OV> 05/24/23 1447 DD/ 1331 TD/TT: Harvesting Supervisor: Procedure Note Donotuseinterpreter, Image - 05/24/[address] [place] [address] [address] Scan Report Signed Patient: Allyson Salmeron#: [id number] 703 : 1960cct:[id number] Age/Sex: 62 / FADM Date: 05/24/23 Loc: HO.ED Attending Dr: Ordering Physician: Tanmay Alvarado MD Date of Service: 05/24/23 Procedure(s): CT cervical spine wo IV con Accession Number(s): [id number] cc: Tanmay Alvarado MD; [facility] EXAMINATION: CT HEAD WITHOUT CONTRAST CLINICAL [...] in OV> 05/24/23 1447 DD/ 1331 TD/TT: Harvesting Supervisor: [facility] External Provider IMG CT PROCEDURES Final Result * CT Head w/o Contrast (05/24/2023 1:31 PM EST) Anatomical Region Laterality Modality Head, Neck Computed Tomogra phy 05/24/2023 1:31 PM EST Narrative 05/24/2023 2:51 PM EST [address] [address] [address] Scan Report Signed Patient: Sharri Salmeron MR#: [id number] 703 : 1960 Acct:[id number] Age/Sex: 62 / F ADM Date: 05/24/23 Loc: HO.ED Attending Dr: Ordering Physician: Tanmay Alvarado MD Date of Service: 05/24/23 Procedure(s): CT head/brain wo IV con Accession Number(s): [id number] cc: Tanmay Alvarado MD; [facility] EXAMINATION: CT HEAD WITHOUT CONTRAST CLINICAL [...] in OV> 05/24/23 1447 DD/ 1331 TD/TT: Harvesting Supervisor: Procedure Note Donotuseinterpreter, Image - 05/24/[address] [address] [address] Scan Report Signed Patient: Allyson Salmeron#: [id number] 703 : 2Acct:[id number] Age/Sex: 62 / FADM Date: 05/24/23 Loc: HO.ED Attending Dr: Ordering Physician: Tanmay Alvarado MD Date of Service: 05/24/23 Procedure(s): CT head/brain wo IV con Accession Number(s): [id number] cc: Tanmay Alvarado MD; [facility] EXAMINATION: CT HEAD WITHOUT CONTRAST CLINICAL [...] in OV> 05/24/23 1447 DD/ 1331 TD/TT: Harvesting Supervisor: [facility] External Provider IMG CT PROCEDURES Final Result documented in this encounter Visit Diagnoses Not on filedocumented in this encounter Additional Health Concerns Assessment Noted Time PHQ-9 Depression Total Score: 7 04/13/19 8:57 AM EST documented as of this encounter Care Teams Technology Applications Consultant Relationship Specialty Start Date End Date Ashanti August FNP [address] [place] [address] PCP - General Family Medicine 11/24/21 Jeff Villarreal FNP [address] [place] [address] Nurse Practitioner Family Medicine 02/20/23 Juan Holbrook, Karin [address] [place] [address] Pharmacist Pharmacy 03/10/25 documented as of this encounter
--- OUTSIDE RECORDS SUMMARY | 2025-03-19 14:59 | XMS_ITS | Encounter Summary ---
Author Organization [employer] Address [address] [place] [address] [address] [place] [address] Care Team Providers Care Saw Boss Name Role Phone Ashanti August BUSINESS RECORDS MANAGER Primary Care Provider Jeff Villarreal BUSINESS RECORDS MANAGER Unavailable Unavailable Juan Holbrook PharmD Unavailable [phone] Encounter Details Date Type Department Care Team (Late st Contact Info) Description 07/22/2022 Orders Only [facility] PEDS [address] [place], [place] [phone] Elizabeth Meadows LPN Social History Tobacco Use [...] Description 04/14/2025 11:00 AM EST Medication Management [facility] [address] [place], [place] [phone] Juan Holbrook, PharmD [address] [place], [place] [phone] documented as of this encounter Visit Diagnoses Not on filedocumented in this encounter Additional Health Concerns Assessment Noted Time PHQ-9 Depression Total Score: 13 023 2:44 PM EST documented as of this encounter Care Teams Saw Boss Relationship Specialty Start Date End Date Ashanti August FNP [address] [place] [address] PCP - General Family Medicine 11/24/21 Jeff Villarreal FNP [address] [place] [address] Nurse Practitioner Family Medicine 02/20/23 Juan Holbrook, PharmD [address] [place] [address] Pharmacist Pharmacy 03/10/25 documented as of this encounter
--- OUTSIDE RECORDS SUMMARY | 2025-03-19 14:59 | XMS_ITS | Encounter Summary ---
Author Organization [employer] Address [address] [place] [address] 7t [place] [address] Care Team Providers Care Veterinary Nurse Name Role Phone [place], [facility] Primary Care Provider [phone] Jeff Villarreal TOUR GUIDE Unavailable Unavailable Juan Holbrook PharmD Unavailable [phone] Reason for Visit * Reason Comments Med Refill Encounter Details Date Type Department Care Team (Late st Contact Info) Description 03/20/2024 Refill [facility] [address] [place], [place] [phone] [facility] [address] [place] [address] Primary hypertension Social History Tobacco Use Types [...] Description 04/14/2025 11:00 AM EST Medication Management [facility] [address] [place] [address] Juan Holbrook, PharmD [address] [place] [address] documented as of this encounter Visit Diagnoses Diagnosis Primary hypertension Unspecified essential hypertension documented in this encounter Additional Health Concerns Assessment Noted Time PHQ-9 Depression Total Score: 0 12/20/19 24 10:36 AM EDT documented as of this encounter Care Teams Veterinary Nurse Relationship Specialty Start Date End Date Ashanti August FNP [address] [place] [phone] PCP - General Family Medicine 11/24/21 Jeff Villarreal FNP [address] [place] [address] Nurse Practitioner Family Medicine 02/20/23 Juan Holbrook, PharmD [address] [place] [address] Pharmacist Pharmacy 03/10/25 documented as of this encounter
--- OUTSIDE RECORDS SUMMARY | 2025-03-19 14:59 | XMS_ITS | Encounter Summary ---
Author Organization [employer] Address [address] [place] [address] [address] [place] [address] Care Team Providers Care Farm Technician Name Role Phone Ashanti August UNIFIED COMMUNICATIONS ARCHITECT Primary Care Provider [phone] Jeff Villarreal UNIFIED COMMUNICATIONS ARCHITECT Unavailable Unavailable Juan Holbrook PharmD Unavailable [phone] Encounter Details Date Type Department Care Team (Late st Contact Info) Description 05/24/2022 Orders Only [facility] [address] [place] [phone] Isabel Escalante LPN Social History Tobacco Use [...] Description 04/14/2025 11:00 AM EST Medication Management [facility] [address] [place] [phone] Juan Holbrook, PharmD [address] [place], [place] [phone] documented as of this encounter Visit Diagnoses Not on filedocumented in this encounter Additional Health Concerns Assessment Noted Time PHQ-9 Depression Total Score: 13 023 2:44 PM EST documented as of this encounter Care Teams Farm Technician Relationship Specialty Start Date End Date Ashanti August FNP [address] [place] [address] PCP - General Family Medicine 11/24/21 Jeff Villarreal FNP [address] [place] [address] Nurse Practitioner Family Medicine 02/20/23 Juan Holbrook, KeithD [address] [place] [phone] Pharmacist Pharmacy 03/10/25 documented as of this encounter
--- OUTSIDE RECORDS SUMMARY | 2025-03-19 14:59 | XMS_ITS | Encounter Summary ---
Author Organization [employer] Address [address] [place] [address] [address] [address] Care Team Providers Care Bit Tripoler Name Role Phone Ashanti August [employer] Primary Care Provider [phone] Jeff Villarreal [employer] Unavailable Unavailable Juan Holbrook PharmD Unavailable [phone] Encounter Details Date Type Department Care Team ([facility] Contact Info) Description 09/20/2022 Orders Only [facility] MED [facility] PEDS [address] [place], [place] [phone] Elizabeth Meadows LPN Social History Tobacco Use [...] Department Care Team (Late Contact Info) Description 04/14/2025 11:00 AM EST Medication Management [facility] [address] [place], [place] [phone] Juan Holbrook, PharmD [address] [place] [address] documented as of this encounter Visit Diagnoses Not on filedocumented in this encounter Additional Health Concerns Assessment Noted Time PHQ-9 Depression Total Score: 13 023 2:44 PM EST documented as of this encounter Care Teams Bit Tripoler Relationship Specialty Start Date End Date Ashanti August FNP [address] [place] [phone] PCP - General Family Medicine 11/24/21 Jeff Villarreal FNP [address] [place] [address] Nurse Practitioner Family Medicine 02/20/23 Juan Holbrook, PharmD [address] [place] [phone] Pharmacist Pharmacy 03/10/25 documented as of this encounter
--- OUTSIDE RECORDS SUMMARY | 2025-03-19 14:59 | XMS_ITS | Clinical Summary ---
Author Organization [employer] Address [address] [place] [address] [address] [place] [address] Care Team Providers Care Patient Account Liaison Name Role Phone Ashanti August BREAD BAKER Primary Care Provider [phone] Jeff Villarreal BREAD BAKER Unavailable Unavailable Juan Holbrook PharmD Unavailable [phone] Allergies Active Allergy Reactions Criticality Noted Date Comments Hydrocodone-Acetaminophen Itching High 12/17/2012 Oxycodone Rash,Itching High 07/13/2016 Other reaction(s): Rash Oxycodone-Acetaminophen Itching 12/17/2012 Zolpidem Rash High 07/13/2016 Medications * This document contains information received from the source organization and may not represent a complete record from that organization. Spacer/Aero-Hold ing Chambers (Pro Comfort Spacer Adult) miscIndications: COPD exacerbation ([facility]) ([facility]) Use qid prn sob/cough with inhaler 1 each 023 Active albuterol 108 (90 Base) MCG/ACT inhalerIndicatio ns:COPD exacerbation ([facility]) ([facility]) Inhale 2 puffs every 6 (six) hours if needed for wheezing. 18 g 1 023 Active omeprazole (PriLOSEC) [address] capsule TAKE 1 CAPSULE BY MOUTH TWICE DAILY IN THE MORNING AND AT BEDTIME 024 Active Senna-Time 8.6 MG tablet Take 1 tablet by mouth Once per day. 023 Active glucose 4 g chewable tabletIndication s:Type 2 diabetes mellitus with stage 4 chronic kidney disease, without long-term current use of insulin ([facility]) Chew 4 tablets (16 g) if needed for low blood sugar. 50 tablet 12 Active lidocaine (Lidoderm) 5 % patchIndications :Cervical [...] needed for symptom relief. 90 capsule 11 02/22/20 25 11:39 AM EST Active cloNIDine (Catapres) 0.1 MG tablet Take 0.1 mg by mouth 2 times daily. Active QUEtiapine (SEROquel) 100 MG tablet Take 1 tablet by mouth at bedtime. Active aspirin 81 MG chewable tabletIndication s:Type 2 diabetes mellitus with stage 3a chronic kidney disease, without long-term current use of insulin ([facility]) Chew 1 tablet (81 mg) Once per day. 30 tablet 11 02/22/20 25 11:39 AM EST 025 2025 Active buPROPion XL (Wellbutrin XL) 150 MG 24 hr tablet Take 1 tablet (150 mg) by mouth in the morning. Do not crush, chew, or split. 90 tablet 3 Active metFORMIN XR (Glucophage-XR) 500 MG 24 hr tabletIndication s:Type 2 diabetes mellitus with stage 3a chronic kidney disease, without long-term current use of insulin ([facility]) Take 1 tablet (500 mg) by mouth with evening meal. If tolerating well increase to twice daily Do not crush, chew, or split. 30 tablet 11 02/22/20 25 11:39 AM EST 025 2025 Active Alpha-Lipoic Acid 600 MG capsuleIndicatio ns:Neuropathy Take 1 capsule (600 mg) by mouth Once per day. 30 capsule 3 Active Additional Information Patient not taking.Reason: Cost (Not covered by insurance), Reported on 03/10/2025 Blood Glucose Monitoring Suppl (GNP Easy Touch Glucose Meter) deviceIndication s:Type 2 diabetes mellitus with stage 3a chronic kidney disease, without long-term current use of insulin ([facility]) Use as directed to check blood sugar four times daily 1 each 025 Active Alcohol Swabs (Alcohol Prep) 70 % padsIndications: Type 2 diabetes mellitus with stage 3a chronic kidney disease, without long-term current use of insulin ([facility]) Use as directed to check blood sugar twice daily 100 each 11 03/19/20 25 11:47 AM EST 025 Active TRUEplus Lancets 33G miscIndications: Type 2 diabetes mellitus with stage 3a chronic kidney disease, without long-term current use of insulin ([facility]) USE TO TEST BLOOD SUGAR TWICE DAILY 100 each 03/19/20 25 11:47 AM EST 025 Active glucose blood (FREESTYLE LITE) test stripIndications :Type 2 diabetes mellitus with stage 3a chronic kidney disease, without long-term current use of insulin ([facility]) USE TO TEST BLOOD SUGAR TWICE DAILY 100 each 03/19/20 25 11:47 AM EST 025 Active Vitamin E 45 MG (100 UNIT) capsule TAKE 1 CAPSULE BY MOUTH EVERY MORNING 90 capsule 025 Active D3 Super Strength 50 MCG (2000 UT) capsuleIndicatio ns:Vitamin D deficiency TAKE 2 CAPSULES BY MOUTH ONCE DAILY IN THE MORNING 180 capsule 3 Active atorvastatin (Lipitor) 80 MG tablet TAKE 1 TABLET BY MOUTH AT BEDTIME 90 tablet Active Trulicity 3 MG/0.5ML solution auto-injectorInd ications:Type 2 diabetes mellitus with stage 3a chronic kidney disease, without long-term current use of insulin ([facility]) INJECT ONE PEN (= 3MG) SUBCUTANEOUSLY ONCE A WEEK DIRECTED 2 mL 3 03/11/20 25 4:20 PM EST 025 Active ondansetron ODT (Zofran-ODT) 4 MG disintegrating tablet Take 4 mg by mouth every 8 (eight) hours if needed. Active sertraline (Zoloft) 100 MG tablet Take 100 mg by mouth in the morning. 025 Active GAS RELIEF 125 MG capsule Take 125 mg by mouth every 6 (six) hours if needed for flatulence. Active ferrous sulfate 324 MG EC tabletIndication s:Black tarry stools Take 1 tablet (324 mg) by mouth with breakfast. 30 tablet 3 03/13/20 25 12:50 PM EST Active pantoprazole (ProtoNix) 40 MG EC tabletIndication s:Black tarry stools Take 1 tablet (40 mg) by mouth before breakfast and before evening meal. Do not crush, chew, or split. 60 tablet 11 03/13/20 25 12:50 PM EST 025 2025 Active traZODone (Desyrel) 100 MG tablet Take 2 tablets (200 mg) by mouth at bedtime. 180 tablet 3 024 2024 Discontinued(M ed list cleanup (will not trigger notification to Pharmacy)) hydrOXYzine HCl (Atarax) 50 MG tablet Take 1 tablet by mouth Once per day. 2024 Discontinued(M ed list cleanup (will not trigger notification to Pharmacy)) ipratropium-albu terol (Duo-Neb) 0.5-2.5 mg/3 mL nebulizer solution Inhale 3 mL every 4 (four) hours if needed. 2024 Discontinued(M ed list cleanup (will not trigger notification to Pharmacy)) methocarbamol (Robaxin) 500 MG tablet Take 1 tablet by mouth 4 times daily. 025 2024 Discontinued(M ed list cleanup (will not trigger notification to Pharmacy)) risperiDONE (RisperDAL) 0.5 MG tablet Take 1 tablet by mouth Once per day. 025 2024 Discontinued(M ed list cleanup (will not trigger notification to Pharmacy)) DULoxetine (Cymbalta) [address] capsuleAndrew ns:Depression, unspecified depression type Take 1 capsule (60 mg) by mouth Once per day. 90 capsule 3 025 2024 Discontinued(M ed list cleanup (will not trigger notification to Pharmacy)) Dulaglutide (Trulicity) 3 MG/0.5ML solution auto-injectorInd ications:Type 2 diabetes mellitus with stage 3a chronic kidney disease, without long-term current use of insulin (HCC) Inject 3 mg under the skin 1 (one) time per week. 2 mL 3 02/13/20 25 2:58 PM EST 025 2024 Discontinued Active Problems Problem Noted Date Diagnosed Date Cervical radiculopathy 05/28/2024 Overview (09/24/2024): S/p surgery Chronic obstructive pulmonary disease 01/31/2024 Overview (01/31/2024): Theophylline added to regimen. Continue trelegy. Continue continuous 2l O2.Has lung CT screening pending [facility]. Lam Assessment & Plan (05/29/2024 9:29 AM EST): Stable, prn supplemental o2. Witnessed seizure-like activity ([facility]) 2023 Major depressive disorder, r ecurrent, severe [...] and drug-disease interactions. This provider has consulted [facility] clinical pharmacist regarding medication safety. Patient had EKG at ED on 2023 which was normal. She will F/U with therapist at [facility] and has discussed the possibility of referral to their prescriber when this provider leaves the practice. However, since this provider will be retiring, patient will be referred to new psychiatric prescriber from [facility], contracted with [facility]. Reviewed with patient that new provider will be outside the [facility] organization and patient gives verbal consent to share information with provider. Any issues or concerns contact [facility]. All her questions were answered [...] q8 h prn anxiety. This provider consulted [facility] clinical pharmacist regarding medication safety. Patient had EKG at ED on 2023 which was normal. Provider will also consult patient's PCP about possibly changing her Atorvastatin 80 mg to alternative lipid med, as Atorvastatin can be associated with nightmares. She has started with new therapist at [facility] and has discussed the possibility of referral [...] She has started with new therapist at [facility] and has discussed the possibility of referral [...] HPV neg-->repeat 2024 C-scope: Followed by [facility] BMD: Routine age 66 Memory impairment [...] Cirrhosis (CMS/HCC) 10/25/2022 Overview (09/24/2024): Dx MAFLD 2017, follows with [facility]. Bautista 07/2019 EGD showed gastritis [...] gastric emptying study was normal. Follows with [facility], repeat EGD 2022 Frequent falls 10/25/2022 Hyperkalemia 10/25/2022 Overview (05/15/2023): Lisinopril discontinued 04/2022 Lumbar radiculopathy 10/25/2022 Overview (10/28/2022): S/p multiple spinal surgeries through [facility] 09/2021 for cyst removal Followed by [facility] pain mngmt NIURKA (obstructive sleep apnea) 10/25/2022 Assessment & Plan (05/29/2024 9:29 AM EST): Resolved, in care with pulmonary, Supplemental oxygen prn at night Former smoker Pulmonary nodules 10/25/2022 Supplemental oxygen dependent 10/25/2022 Weak urinary stream 10/25/2022 Overview (10/28/2022): Followed by [facility] urology Bethanechol Tremor of both hands 09/20/2022 [...] (CMS/HCC) 08/18/2023 12/19/2023 COPD with acute exacerbation (CMS/HCC) 02/14/2023 12/19/2023 Assessment & Plan (02/14/2023 1:54 [...] 10/28/2022 Urinary hesitancy 10/25/2022 10/28/2022 COPD exacerbation (CMS/HCC) 09/20/2022 10/28/2022 Assessment & Plan (09/20/2022 11:54 AM EDT): She's clinically stable, no RD Increased Albuterol to quid and use the spacer. Continue Trelegy. I explained that albuterol may increase shakiness , palpitations and a bit of restlessness for few hours while using it. Recommended to increase water intake. Reconsult prn Ischemic colitis 11/24/2021 01/31/2024 Overview (10/28/2022): S/p emergency surgery Kenvir 11/2021 Now followed by [facility] Vascular insufficiency of intestine 11/24/2021 01/31/2024 Renal function test abnormal 02/11/2021 10/28/2022 Chronic obstructive lung disease 01/17/2021 12/19/2023 Overview (05/15/2023): Trelegy ellipta Albuterol PRN Supplemental 02 35 pack year smoking hx [facility] pulmonology History of total knee arthroplasty 02/09/2017 10/28/2022 Depressive disorder 02/20/2013 10/29/19 23 Assessment & Plan (09/20/2022 12:01 PM EDT): She's doing well, no panic attacks at this time, seems to be dealing well with her son's addiction. FU closely with psycho pharacology clinic. Current smoker 12/17/2012 10/28/2022 Encounters Date Type Department Care Team Description 03/19/2025 Orders Only GENERIC EXTERNAL DATA DEPARTMENT Provider, Generic External Data 03/10/2025 Results Follow-Up [facility] [address] [place] [phone] Ashanti August FNP CBC auto differential, Comprehensive Metabolic Panel 03/10/2025 Telephone [facility] [address] [place] [phone] Ashanti August FNP Labs results-drop in hgb 03/10/2025 Orders Only GENERIC EXTERNAL DATA DEPARTMENT Provider, Generic External Data 03/10/2025 Travel 03/05/[address] [address] Ashanti August FNP Type 2 diabetes mellitus with stage 3a chronic kidney disease, without long-term current use of insulin (HCC) 02/24/2025 Orders Only [address] [address] Kirsten Page MD Type 2 diabetes mellitus with stage 3a chronic kidney disease, without long-term current use of insulin (HCC) (Primary Dx) 02/24/2025 Telephone [facility] [address] [place] [address] Mary Cruz, PharmD 01/10/2025 Results Follow-Up [facility] [address] [address] Ashanti August FNP POCT Glucose, POCT Hgb A1c, Pap Smear 01/09/2025 Refill [facility] [address] [place] [address] Ashanti August FNP 01/08/2025 Refill [facility] [address] [place] [address] MataAshanti garcia FNP Vitamin D deficiency 01/06/2025 9:15 AM EDT Procedure Visit [address] [address] Ashanti August FNP Encounter for Papanicolaou smear for cervical cancer screening (Primary Dx); Type 2 diabetes mellitus with stage 3a chronic kidney disease, without long-term current use of insulin (HCC); Encounter for immunization; Encounter for vaccination 01/06/2025 Orders Only [facility] [address] [place] [address] Jones Ashanti, BREAD BAKER 01/06/2025 Travel from Last 3 Months Immunizations Immunization Administration [...] Sign Reading Time Taken Comments Blood Pressure 108/60 03/10/2025 10:20 AM EST Pulse 81 03/10/2025 10:20 AM EST Temperature 36.3 C (97.3 F) 01/06/2025 9:22 AM EDT Respiratory Rate 20 01/06/2025 9:22 AM EDT Oxygen Saturation 96% 06/21/2024 1:22 PM EDT Inhaled Oxygen Concentration - - Weight 78.5 kg (173 lb) 01/06/2025 9:22 AM EDT Height 160 cm (5' 3 ) 01/06/2025 9:22 AM EDT Body Mass Index 30.65 01/06/2025 9:22 AM EDT Plan of Treatment Upcoming Encounters Date Type Department Care Team (Late st Contact Info) Description 04/14/2025 11:00 AM EST Medication Management [facility] [address] [place] [address] Juan Holbrook, PharmD [address] [place] [address] Health Maintenance Due Date Last Done Comments CT Colonography 1961 FIT DNA/Cologuard 1961 FIT 1961 FOBT 1961 Sigmoidoscopy 1961 Alcohol/Substance Use Screening 1973 Diabetes: Foot Exam 08/13/2024 08/14/2023, 08/14/2023, 08/14/2023, Additional history exists SDOH Screening 04/12/2025 04/12/2024 Colonoscopy 05/04/2025 07/30/2019 Colorectal Cancer Screening 05/04/2025 Eye Exam 05/11/2025 05/11/2023, 020 11/2023, 05/11/2023, Additional history exists Diabetes: Hemoglobin A1C 07/07/2025 025, 09/20/2024, 06/21/2024, Additional history exists Mammogram 08/31/2025 09/01/2023, 08/20/2021 Disability Screening 09/20/2025 09/20/2024 Depression Screening 11/06/2025 11/06/2024, 11/07/19 25 Tobacco Screening 01/08/2026 01/08/2025 Lipid Panel 03/10/2026 03/10/2025, 02/0 08/2023, 10/25/2022, Additional history exists DTaP/Tdap/Td Vaccines (3 - Td or Tdap) 01/17/2029 01/17/2019, 11/05/2014 Cervical Cancer Screening 01/06/2030 HPV/Cotest 01/06/2030 01/06/2025, 05/04, 05/11/2016 Pap Smear 01/06/2030 01/06/2025 Zoster Vaccines Completed 02/23/2021, 12/16/2020 HIV Screening Completed 09/08/2021 Pneumococcal Vaccine: 50+ Years Completed 11/17/2021 RSV Patients and Patients Aged 60 years or older Completed 07/02/2024 COVID-19 Vaccine Completed 01/06/2025, , 02/14/2023, Additional history exists Influenza Vaccine Completed 01/06/2025, , 01/02/2023, Additional history exists Hepatitis C Screening Completed 03/10/2025, 022 HIB Vaccines Aged Out No longer eligi [...] on patient's age to complete this topic Goals Goal Patient Goal Type Associated Problems Recent Progress Patient-Stated? Author Help patients manage their type 2 diabetes Care Plan Help patients manage their type 2 diabetes No Mary Cruz, PharmD Weekly blood pressure task Care Plan Weekly blood pressure task No Mary Cruz, PharmD Help patients manage their type 2 diabetes Care Plan Help patients manage their type 2 diabetes No Mary Cruz, PharmD Patient has chronic kidney disease Care Plan Patient has chronic kidney disease No Mary Cruz, PharmD Weekly blood pressure task Care Plan Weekly blood pressure task No Emy Cruza, PharmD Patient has chronic kidney disease Care Plan Patient has chronic kidney disease No Mary Cruz, PharmD Weekly blood pressure task Care Plan Weekly blood pressure task No Kirsten Page MD Weekly blood pressure task Care Plan Weekly blood pressure task No Kirsten Page MD Patient has chronic kidney disease Care Plan Patient has chronic kidney disease No Kirsten Page MD Patient has chronic kidney disease Care Plan Patient has chronic kidney disease No Kirsten Page MD Weekly blood pressure task Care Plan Weekly blood pressure task No Juan Holbrook, PharmD Weekly blood pressure task Care Plan Weekly blood pressure task No Juan Holbrook PharmD Patient has chronic kidney disease Care Plan Patient has chronic kidney disease No Juan Holbrook PharmD Patient has chronic kidney disease Care Plan Patient has chronic kidney disease No Juan Holbrook PharmD Weekly blood pressure task Care Plan Weekly blood pressure task No Jones, Ashanti, BREAD BAKER Weekly blood pressure task Care Plan Weekly blood pressure task No Jones, Ashanti, BREAD BAKER Patient has chronic kidney disease Care Plan Patient has chronic kidney disease No Jones, Ashanti, BREAD BAKER Patient has chronic kidney disease Care Plan Patient has chronic kidney disease No Jones, Ashanti, BREAD BAKER Weekly blood pressure task Care Plan Weekly blood pressure task No Jones, Ashanti, BREAD BAKER Weekly blood pressure task Care Plan Weekly blood pressure task No Mata, Ashanti, BREAD BAKER Patient has chronic kidney disease Care Plan Patient has chronic kidney disease No Mata, Ashanti, BREAD BAKER Patient has chronic kidney disease Care Plan Patient has chronic kidney disease No Jones, Ashanti, BREAD BAKER Weekly blood pressure task Care Plan Weekly blood pressure task No Reina France Weekly blood pressure task Care Plan Weekly blood pressure task No Reina France Patient has chronic kidney disease Care Plan Patient has chronic kidney disease No Reina France Patient has chronic kidney disease Care Plan Patient has chronic kidney disease No eRina France Procedures Procedure Name Priority Date/Time Associated Diagnosis Comments FOLATE, SERUM Routine 03/19/2025 12:27 PM EST BILIRUBIN, DIRECT Routine 03/19/2025 12: 27 PM EST BILIRUBIN, TOTAL Routine 03/19/2025 12:2 7 PM EST RETICULOCYTE COUNT Routine 03/19/2025 12 :27 PM EST Microcytic anemia IRON AND TOTAL IRON BINDING CAPACITY Routine 03/19/2025 12:27 PM EST Microcytic anemia FERRITIN Routine 03/19/2025 12:27 PM EST Microcytic anemia CBC WITH AUTO DIFFERENTIAL Routine 03/19/2025 12:27 PM EST Microcytic anemia VITAMIN B12/FOLATE, SERUM PANEL Routine 03/10/2025 11:42 AM EST MITOCHONDRIAL ANTIBODY WITH REFLEX TO TITER Routine 03/10/2025 10:59 AM EST HEPATITIS A ANTIBODY, TOTAL Routine 03/10/2025 10:59 AM EST TISSUE TRANSGLUTAMINASE AB, IGA Routine 03/10/2025 10:59 AM EST IMMUNOGLOBULIN A Routine 03/10/2025 10:5 9 AM EST HEPATITIS B SURFACE ANTIGEN, EIA Routine 03/10/2025 10:59 AM EST HEPATITIS C ANTIBODY Routine 03/10/2025 10:59 AM EST HEPATITIS B SURFACE ANTIBODY, QUALITATIVE Routine 03/10/2025 10:59 AM EST VITAMIN D,25-OH,TOTAL,IA Routine 025 10:59 AM EST ALBUMIN, RANDOM URINE W/CREATININE Routine 03/10/2025 10:59 AM EST LIPID PANEL, STANDARD Routine 03/10/2025 10:59 AM EST C-REACTIVE PROTEIN Routine 03/10/2025 10 :59 AM EST HEPATIC FUNCTION PANEL Routine 10:59 AM EST URINALYSIS, COMPLETE, WITH REFLEX TO CULTURE Routine 03/10/2025 10:59 AM EST URINALYSIS WITH REFLEX MICROSCOPIC Routine 03/10/2025 10:59 AM EST COMPREHENSIVE METABOLIC PANEL Routine 03/10/2025 10:59 AM EST Postoperative hematoma involving circulatory system following non-circulatory system procedure CBC WITH AUTO DIFFERENTIAL Routine 03/10/2025 10:59 AM EST Postoperative hematoma involving circulatory system following non-circulatory system procedure CULTURE, URINE, ROUTINE Routine 03/10/20 25 12:00 AM EST AMB REFERRAL TO NEUROLOGY Routine 02/03/2025 Memory impairment PAP SMEAR Routine 01/06/2025 9:36 AM EDT Encounter for Papanicolaou smear for cervical cancer screening HPV DNA, LOW/HIGH RISK Routine 9:36 AM EDT POCT GLYCATED HEMOGLOBIN, TOTAL Routine 01/06/2025 9:24 AM EDT Type 2 diabetes mellitus with stage 3a chronic kidney disease, without long-term current use of insulin (HCC) POCT GLUCOSE Routine 01/06/2025 9:23 AM EDT Type 2 diabetes mellitus with stage 3a chronic kidney disease, without long-term current use of insulin (HCC) BI MAMMOGRAM SCREENING TOMOSYNTHESIS BILATERAL Routine 09/01/2023 8:16 AM EDT HIV 1/2 ANTIGEN/ANTIBODY, FOURTH GENERATION W/RFL Routine 09/08/2021 9:52 AM EDT HM COLONOSCOPY Routine 07/30/2019 from Last 3 Months or Most Recently Relevant to Health Maintenance Results * (ABNORMAL) CBC auto differential (03/19/2025 12:27 PM EST) Only the most recent of2 resultswithin the time period is included. White Blood Count 6.1 4.8 - 10.8 X10*3/uL [facility] Red Blood Count 3.88(L) 4.20 - 5.50 X10*6/uL [facility] Hemoglobin 8.2(L) 12.0 - 16.0 g/dl [facility] Hematocrit 28.4(L) 37.0 - 47.0 % [facility] Mean Corpuscular Volume 73.2(L) 80.0 - 98.0 fL [facility] Mean Corpuscular Hemoglobin 21.1(L) 27.0 - 33.0 pg [facility] Mean Corpuscular HGB Conc 28.9(L) 31.0 - 35.0 g/dl [facility] Red Cell Distribution Width 19.8(H) 11.0 - 16.0 % [facility] Platelet Count 263 160 - 400 X10*3/uL [facility] Mean Platelet Volume 10.1 9.4 - 12.3 fL [facility] Neutrophils Percent Auto 56.8 45 - 73 % [facility] Imm Gran Pct Auto 0.3 0.0 - 0.4 % [facility] Lymphocytes Percent Auto 29.9 20 - 40 % [facility] Monocytes Percent Auto 9.5 2 - 11 % [facility] Eosinophils Percent Auto 2.5 0 - 4 % [facility] Basophils Percent Auto 1.0 0 - 2 % [facility] NRBC Pct Auto 0.0 0.0 - 0.2 /100WBC [facility] Neutrophils Absolute Auto 3.5 2.0 - 8.3 x10*3/uL [facility] Imm Gran Abs Auto 0.02 0.00 - 0.03 X10*3/uL [facility] Lymphocytes Absolute Auto 1.8 1.2 - 4.9 X10*3/uL [facility] Monocytes Absolute Auto 0.6 0.1 - 1.2 X10*3/uL [facility] Eosinophils Absolute Auto 0.2 0.0 - 0.4 X10*3/uL [facility] Basophils Absolute Auto 0.1 0.0 - 0.2 X10*3/uL [facility] NRBC Abs Auto 0.000 0.0 - 0.012 X10*3/uL [facility] Blood Venous blood specimen / Unknown 03/19/2025 12:27 PM EST 03/19/2025 12:27 PM EST [facility] BREAD [facility]AKER LAB BLOOD ORDERABLES Final Re sult [facility] [address] [place] [phone] * (ABNORMAL) Iron And Total Iron Binding Capacity (03/19/2025 12:27 PM EST) [facility] Iron 31 30 - 160 mcg/dL [facility] Total Iron Binding Capacity 516(H) 228 - 428 mcg/dL [facility] Percent Iron Saturation 6(L) 15 - 50 % [facility] Unsaturated Iron Binding 485 ug/dL [facility] Blood Venous blood specimen / Unknown 03/19/2025 12:27 PM EST 03/19/2025 12:27 PM EST [facility] LAB BLOOD ORDERABLES Final Re sult Performing Organization Address [facility]/ZIP Co de Phone Number [facility] [address] [place] [phone] * (ABNORMAL) Reticulocyte Count (03/19/2025 12:27 PM EST) [facility] Reticulocytes Absolute 0.119(H) 0.026 - 0.095 X10*6/uL [facility] Immature Retic Fraction 29.0(H) 3.0 - 15.9 % [facility] Retic HGB Equivalent 23.7(L) 30.0 - 35.0 pg [facility] Reticulocyte Percent 3.1(H) 0.5 - 1.8 % [facility] Blood Venous blood specimen / Unknown 03/19/2025 12:27 PM EST 03/19/2025 12:27 PM EST [facility] LAB BLOOD ORDERABLES Final Re sult Performing Organization Address City/[facility]/ZIP Co de Phone Number [facility] [address] [place] [address] [phone] * Folate, Serum (03/19/2025 12:27 PM EST) [facility] Folate 5.5 > or = 4.0 ng/mL [facility] Comment:Reference Values:> o r = 4.0 ng/mL< 4.0 ng/mL suggests folate deficiency Methotrexate, aminopterin and folinic acid(leucovorin) are chemotherapeutic agents whose molecularstructures are similar to folate; therefore, the Architectfolate assay cannot be used for patients using these drugs. 03/19/2025 12:2 7 PM EST 03/19/2025 12:27 PM EST Generic External Data Provider LAB BLOOD ORDERAB LES Final Result Performing Organization Address City/[facility]/ZIP Co de Phone Number [facility] [address] [place] [address] [phone] * Ferritin (03/19/2025 12:27 PM EST) Ferritin 20 10 - 250 ng/mL [facility] Blood Venous blood specimen / Unknown 03/19/2025 12:27 PM EST 03/19/2025 12:27 PM EST [facility] LAB BLOOD ORDERABLES Final Re sult Performing Organization Address [facility] Co de Phone Number [facility] [address] [place] [address] [phone] * (ABNORMAL) Bilirubin, Direct (03/19/2025 12:27 PM EST) Bilirubin, Direct 0.6(H) 0.0 - 0.5 mg/dL [facility] 03/19/2025 12:2 7 PM EST 03/19/2025 12:27 PM EST Generic External Data Provider LAB BLOOD ORDERAB LES Final Result Performing Organization Address [facility] Co de Phone Number [facility] [address] [place] [address] [phone] * (ABNORMAL) Bilirubin, Total (03/19/2025 12:27 PM EST) Pathologist [facility] [place] Bilirubin, Total 1.3(H) 0.0 - 1.0 mg/dL [facility] 03/19/2025 12:2 7 PM EST 03/19/2025 12:27 PM EST Generic External Data Provider LAB BLOOD ORDERAB LES Final Result Performing Organization Address [facility] de Phone Number [facility] [address] [place] [address] [phone] * Vitamin B12 (Cobalamin) and Folate Panel, Serum (03/10/2025 11:42 AM EST) [facility] Vitamin B12 533 200 - 900 pg/mL [facility] Comment:NORMAL 200-900 PG/ML INDETERMINATE 160-199 PG/ML DEFICIENT < 160 PG/ML Folate 5.2 > or = 4.0 ng/mL [facility] Comment:Reference Values:> o r = 4.0 ng/mL< 4.0 ng/mL suggests folate deficiency Methotrexate, aminopterin and folinic acid(leucovorin) are chemotherapeutic agents whose molecularstructures are similar to folate; therefore, the Architectfolate assay cannot be used for patients using these drugs. 03/10/2025 11:4 2 AM EST 03/10/2025 1:35 PM EST Generic External Data Provider LAB BLOOD ORDERAB LES Final Result Performing Organization Address [facility] de Phone Number [facility] [address] [place] [address] [phone] * Hepatitis C Ab (03/10/2025 10:59 AM EST) [facility] Hepatitis C Antibody Nonreactive Nonreactive [facility] Comment:Antibodies to HCV no t detected; does not exclude early acuteHCV infection. 03/10/2025 10:5 9 AM EST 03/10/2025 1:35 PM EST Generic External Data Provider LAB BLOOD ORDERAB LES Final Result Performing Organization Address [facility]/ZIP Co de Phone Number [facility] [address] [place] [phone] * Vitamin D, 25-Hydroxy, Total, Immunoassay (03/10/2025 10:59 AM EST) Vitamin D 25-OH Total 71.1 >30 ng/mL [facility] Comment: Health Based Reference Values*< 20 ng/mL Sslitldzm16-17 ng/mL Insufficient> 30 ng/mL Sufficient*Carlos MOODY. N Engl J Med. 2007;357:266-280There is no well-established upper level of normal vitamin Dlevels. Some laboratories use 50 ng/mL as an upper limit ofnormal. However, toxicity is patient-dependent and may occurat any level. Careful correlation with the patient'spresentation is necessary and, if there is concern forvitamin D toxicity, treatment should be consideredirrespective of the serum level.Care must be taken in interpreting Vitamin D results fromdifferent laboratories and methodologies. Published datademonstrated that results from patients undergoinghemodialysis may show a negative bias when tested withvarious automated 25-OH vitamin D assays when compared toLC-MS/MS.When testing samples from patients whose predominant form ofVitamin D is Vitamin D2, such as patients receiving VitaminD2 supplementation, results that are subtherapeutic shouldbe confirmed with another method such as LC-MS/MS. 03/10/2025 10:5 9 AM EST 03/10/2025 1:35 PM EST us Generic External Data Provider LAB BLOOD ORDERAB LES Final Result Performing Organization Address [facility]/ZIP Co de Phone Number [facility] [address] [place] [phone] * (ABNORMAL) Urinalysis, Complete, with Reflex to Culture (03/10/2025 10:59 AM EST) Color Urine Dark Yellow [facility] Appearance Urine Clear [facility] PH 6.0 5.0 - 9.0 [facility] Glucose Urine UA Negative Negative mg/dL [facility] Urine Blood Negative Negative [facility] Specific [place] - Urine 1.020 1.005 - 1.025 [facility] Urine Protein Trace Neg-Trace mg/dL [facility] Urine Ketones Trace Negative mg/dL [facility] Nitrite Urine Negative Negative [facility] Leukocyte Esterase Urine Moderate (2+)(A) Negative [facility] RBC Urine 0-2 0 - 2 /HPF [facility] Urine WBC 11-20(A) 0 - 5 /HPF [facility] Urine Squamous Epithelial Cell 0-2 0 - 2 /HPF [facility] Urine Bacteria None Seen None Seen [facility] Hyaline Casts, Urine 0-2 0 - 2 /LPF [facility] 03/10/2025 10:5 9 AM EST 03/10/2025 1:26 PM EST Narrative [facility] - 03/10/2025 1:59 PM EST Urine, Clean Catch us Generic External Data Provider LAB URINE ORDERAB LES Final Result Performing Organization Address City/[facility] Co de Phone Number [facility] [address] [place] [address] [phone] * Albumin, Random Urine W/Creatinine (03/10/2025 10:59 AM EST) Creatinine, Urine 173.98 mg/dL [facility] Microalbumin Urine 31.0 mg/L [facility] Microalbum Creatinine Ratio Ur 17.8 <30 ug/mg cr [facility] Comment:Albumin/Creatinine R atio Reference Ranges: Normal: < 30 ug/mg creatinine Microalbuminuria: 30 - 300 ug/mg creatinineClinical Albuminuria: > 300 ug/mg creatinine 03/10/2025 10:5 9 AM EST 03/10/2025 1:26 PM EST [facility] LAB URINE ORDERABLES Final Re sult Performing Organization Address City/[facility]/ZIP Co de Phone Number [facility] [address] [place] [address] [phone] * Hepatitis A Antibody, Total (03/10/2025 10:59 AM EST) Hepatitis A Antibody IgG REACTIVE Nonreactive [facility] Comment:The presence of IgG anti-HAV implies past HAV infection(recent or distant) or vaccination against HAV. 03/10/2025 10:5 9 AM EST 03/10/2025 1:35 PM EST Generic External Data Provider LAB BLOOD ORDERAB LES Final Result Performing Organization Address [facility] de Phone Number [facility] [address] [place] [address] [phone] * Tissue Transglutaminase Antibody, IgA (03/10/2025 10:59 AM EST) Pathologist [facility] [place] Transglutaminase IgA <1.0 U/mL [facility] Comment:Value Interpretation ----- <15.0 Antibody not detected> or = 15.0 Antibody detectedTHIS TEST WAS PERFORMED AT:[facility] [place] [phone] WEBB MD 03/10/2025 10:5 9 AM EST 03/10/2025 1:35 PM EST Generic External Data Provider LAB BLOOD ORDERAB LES Final Result Performing Organization Address [facility] Co de Phone Number [facility] [address] [place] [address] [phone] * Hepatitis B surface antigen, EIA (03/10/2025 10:59 AM EST) Pathologist [facility] [place] Hepatitis B Surface Ag Negative Negative [facility] 03/10/2025 10:5 9 AM EST 03/10/2025 1:35 PM EST us Generic External Data Provider LAB BLOOD ORDERAB LES Final Result Performing Organization Address [facility] Co de Phone Number [facility] [address] [place] [address] [phone] * (ABNORMAL) Mitochondrial Antibody with Reflex to Titer (03/10/2025 10:59 AM EST) Mitochondrial Antibodies POSITIVE( A) NEGATIVE [facility] Comment:THIS TEST WAS PERFOR MED AT:[facility] [place] [phone] WEBB MD Mitochondrial Ab Titer 1:20(A) <1:20 titer [facility] Comment:THIS TEST WAS PERFOR MED AT:[facility] [place] [phone] WEBB MD 03/10/2025 10:5 9 AM EST 03/10/2025 1:35 PM EST us Generic External Data Provider LAB BLOOD ORDERAB LES Final Result Performing Organization Address [facility] de Phone Number [facility] [address] [place] [address] [phone] * Hepatitis B Surface Antibody, Qualitative (03/10/2025 10:59 AM EST) Pathologist [facility] [place] ~Hepatitis B Surface Antibody REACTIVE Nonreactive [facility] Comment:REACTIVE: > 11.99 mI U/mL 03/10/2025 10:5 9 AM EST 03/10/2025 1:35 PM EST us Generic External Data Provider LAB BLOOD ORDERAB LES Final Result Performing Organization Address [facility] Co de Phone Number [facility] [address] [place] [address] [phone] * (ABNORMAL) Urinalysis w/reflex microscopic (03/10/2025 10:59 AM EST) Pathologist [facility] [place] Color Urine Dark Yellow [facility] Appearance Urine Clear [facility] PH 6.0 5.0 - 9.0 [facility] Glucose Urine UA Negative Negative mg/dL [facility] Urine Blood Negative Negative [facility] Specific [place] - Urine 1.020 1.005 - 1.025 [facility] Urine Protein Trace Neg-Trace mg/dL [facility] Urine Ketones Trace Negative mg/dL [facility] Nitrite Urine Negative Negative [facility] Leukocyte Esterase Urine Moderate (2+)(A) Negative [facility] 03/10/2025 10:5 9 AM EST 03/10/2025 1:26 PM EST Narrative [facility] - 03/10/2025 1:44 PM EST Urine, Clean Catch Generic External Data Provider LAB URINE ORDERAB LES Final Result Performing Organization Address [facility] Co de Phone Number [facility] [address] [place] [address] [phone] * C-reactive Protein (03/10/2025 10:59 AM EST) C Reactive Protein 0.39 < or = 0.50 mg/dL [facility] 03/10/2025 10:5 9 AM EST 03/10/2025 1:35 PM EST Generic External Data Provider LAB BLOOD ORDERAB LES Final Result Performing Organization Address [facility] Co de Phone Number [facility] [address] [place] [address] [phone] * (ABNORMAL) Immunoglobulin A (03/10/2025 10:59 AM EST) Immunoglobulin A, Qn, Serum 436(A) 70 - 320 mg/dL [facility] Comment:THIS TEST WAS PERFOR MED AT:[facility] [place] [phone] WEBB MD 03/10/2025 10:5 9 AM EST 03/10/2025 1:35 PM EST us Generic External Data Provider LAB BLOOD ORDERAB LES Final Result Performing Organization Address City/[facility]/ZIP Co de Phone Number [facility] [address] [place] [address] [phone] * (ABNORMAL) Hepatic Function Panel (03/10/2025 10:59 AM EST) Bilirubin, Direct 0.6(H) 0.0 - 0.5 mg/dL [facility] 03/10/2025 10:5 9 AM EST 03/10/2025 1:35 PM EST us Generic External Data Provider LAB BLOOD ORDERAB LES Final Result Performing Organization Address City/[facility] Co de Phone Number [facility] [address] [place] [address] [phone] * (ABNORMAL) Lipid Panel, Standard (03/10/2025 10:59 AM EST) Triglycerides 69 <150 mg/dL [facility] Comment:Desirable Triglyceri de: less than 150 mg/dLBorderline High Triglyceride 150-199 mg/dLHigh Triglyceride: 200-499 mg/dLVery High Triglyceride: greater than or equal to 5OO mg/dL Cholesterol 86 <200 mg/dL [facility] Comment:Desirable Cholestero l: less than 200 mg/dLBorderline High Cholesterol: 200-239 mg/dLHigh Cholesterol: greater than 239 mg/dL LDL Cholesterol Calculated 42 <100 mg/dL [facility] Comment:Desirable LDL: less than 100 mg/dLNear Optimal/Above Optimal LDL: 110- 129 mg/dLBorderline High LDL: 130-159 mg/dLHigh LDL: 160-189 mg/dLVery High LDL: greater than or equal to 190 mg/dL HDL Cholesterol 31(L) >40 mg/dL [facility] Comment:Desirable HDL: great er than 40 mg/dL Note: This HDL assay may give artificially low results in patients with liver disease. 03/10/2025 10:5 9 AM EST 03/10/2025 1:35 PM EST [facility] LAB BLOOD ORDERABLES Final Re sult [facility] [address] [place] [phone] * (ABNORMAL) Comprehensive Metabolic Panel (03/10/2025 10:59 AM EST) Sodium 141 135 - 145 mmol/L [facility] Potassium 4.2 3.3 - 5.1 mmol/L [facility] Chloride 107 96 - 108 mmol/L [facility] Carbon Dioxide 26 22 - 29 mmol/L [facility] Anion Gap 12 12 - 20 [facility] Urea Nitrogen (BUN) 13 9 - 16 mg/dL [facility] Creatinine, Serum 0.68 0.5 - 1.4 mg/dL [facility] Estimated Glomerular Filt Rate >60 [facility] Comment:Chronic Kidney Disea se: Estimated GFR < 60 mL/min/1.34f9Hatywv Kidney Disease: Estimated GFR < 15 mL/min/1.73m2 Glucose 98 60 - 115 mg/dL [facility] Calcium 9.8 8.4 - 10.2 mg/dL [facility] Bilirubin, Total 1.2(H) 0.0 - 1.0 mg/dL [facility] Aspartate Amino Transferase 60(H) 5 - 31 U/L [facility] Alanine Aminotransferase 31 0 - 31 U/L [facility] Total Protein 7.9 6.5 - 8.0 g/dL [facility] Albumin Level 4.4 3.5 - 5.0 g/dL [facility] Alkaline Phosphatase 149(H) 39 - 117 U/L [facility] Blood Venous blood specimen / Unknown 03/10/2025 10:59 AM EST 03/10/2025 1:35 PM EST [facility] LAB BLOOD ORDERABLES Final Re sult [facility] [address] [place] [phone] * Culture, Urine, Routine (03/10/2025 12:00 AM EST) Urine Urine specimen obtained by clean catch procedure / Unknown 03/10/2025 03/10/2025 Comment:UACC Narrative [facility] - 03/11/2025 11:04 AM EST Urine Culture Report Result Urine Culture < 10,000 cfu/ml Specimen Source: Urine clean catch Generic External Data Provider LAB MICROBIOLOGY - GENERAL ORDERABLES Final Result Performing Organization Address City/[facility]/ZIP Co de Phone Number [facility] [address] [place] [phone] * Referral to Neurology (02/03/2025) [facility] OUTPATIENT REFERRAL ORDERABLE S Final Result * (ABNORMAL) HPV DNA, Low/High Risk (01/06/2025 9:36 AM EDT) HPV High Risk Positive(A) Negative [facility] HPV Genotype 16 Negative Negative [facility] HPV Genotype 18 Negative Negative [facility] Comment:HPV testing performe d at [facility] (CLIA#[id number]), [address] [place] [address].Testing for HPV was performed using the Kayden [...] 9:36 AM EDT 01/07/2025 6:04 AM EDT [facility] LAB BLOOD ORDERABLES Final Re sult [facility] [address] [place] [address] [phone] * Pap Smear (01/06/2025 9:36 AM EDT) Swab Cervical swab / Unknown 01/06/2025 9:36 AM EDT 01/07/2025 6:00 AM EDT Narrative [facility] - 01/10/2025 2:24 PM EDT ----- ------- Name: Rusty Salmeronlia Age/Sex: 64/F : 1960 Unit#: [id number] Kayla Dr: Re01/06/25 Status: PRE REF Location: [facility] Disch: ----- ------- SPEC : [id number] RECD: 01/07/25 STATUS: NANCY VENEGAS NUM: [id number] KARRIE: 01/06/[address]: Ashanti August BREAD BAKER ENTERED: 01/07/25 SP TYPE: Pap Smr OTHR DR: ORDERED: Pap Smear Interpretation Satisfactory for evaluation. Negative for intraepithelial lesion or malignancy. Mild inflammation. HPV High Risk: Positive HPV Genotyping 16: Negative HPV Genotyping 18: Negative Clinical Information LMP: Post menopausal Previous PAP test: NIL HPV negative Other surgery: Other history: Material Received ThinPrep-Cervical ----- ------- Signed (signature on file) JOSELO Burnham (ASCP) 01/10/25 1424 ----- ------- END OF REPORT [facility] CYTOLOGY ORDERABLES Final Result [facility] [address] [place] [address] [phone] * (ABNORMAL) POCT Hgb A1c (01/06/2025 9:24 AM EDT) Pathologist [facility] [place] Hemoglobin A1C 6.8(A) 4.0 - 5.7 % Blood 01/06/2025 9:24 AM EDT [facility] POINT OF CARE TEST ENTER/EDIT ORDERABLES Final Result * (ABNORMAL) POCT Glucose (01/06/2025 9:23 AM EDT) Pathologist [facility] [place] Glucose Blood, POC 207(A) 60 - 200 mg/dL Blood Capillary blood specimen / Unknown 01/06/2025 9:23 AM EDT [facility] POINT OF CARE TEST ENTER/EDIT ORDERABLES Final Result * BI Mammogram Screening Tomosynthesis Bilateral (09/01/2023 8:16 AM EDT) Anatomical Region Laterality Modality Breast Bilateral Mammography 09/01/2023 8:16 AM EDT Narrative 09/26/2023 4:37 PM EDT [facility] [address] [place], [place] [address] Mammography Report Signed Patient: Sharri Salmeron MR#: [id number] : 1960 Acct:[id number] Age/Sex: 63 / F ADM Date: 09/01/23 Loc: [facility] Attending Dr: Ashanti August BREAD BAKER Ordering Physician: Ashanti August Results: 1Nega tive Date of Service: 09/01/23 Follow Up: 1 Year From [facility] Mammogram Procedure(s): MM tomosynthesis screening BI Accession Number(s): [id number] cc: Ashanti AugustP EXAMINATION: MM SCREENING DIGITAL BREAST TOMOSYNTHESIS, BILATERAL [...] in OV> 09/26/23 1634 DD/ 0816 TD/TT: Endoscopy Specialty Technician: Procedure Note Donotuseinterpreter, Image - 09/26/2023 [facility] [address] [place] [address] Mammography Report Signed Patient: Allyson Salmeron#: [id number] : 2Acct:[id number] Age/Sex: 63 / FADM Date: 09/01/23 Loc: HO.MAMMO Attending Dr: Ashanti August BREAD BAKER Ordering Physician: Ashanti August FNPResults: 1Nega tive Date of Service: 09/01/23Follow Up: 1 Year From Orig inal Mammogram Procedure(s): MM tomosynthesis screening BI Accession Number(s): [id number] cc: Ashanti August BREAD BAKER EXAMINATION: MM SCREENING DIGITAL BREAST TOMOSYNTHESIS, BILATERAL [...] in OV> 09/26/23 1634 DD/ 0816 TD/TT: [facility]oscopy [facility] IMG BI PROCEDURES Final Resul t * HIV 1/2 ANTIGEN/ANTIBODY,FOURTH GENERATION W/RFL (09/08/2021 9:52 AM EDT) HIV-1/2 ANTIGEN AND ANTIBODIES, 4TH GENERATION W/ REFLEX NON-REACT [place] NON-REACT [place] [facility] Comment: HIV-1 antigen and HIV-1/HIV-2 [...] purpose. For additional information please refer to http://education.Lesson Prep/faq/CEE962 (This link is being provided for informational/ educational purposes only.) The performance of this assay has not been clinically validated in patients less than 2 years old. 09/08/2021 9:52 AM EDT Micaela Hernandez NP LAB BLOOD ORDERABLES Final Resu lt [facility] [address] [place] [address], * Colonoscopy (07/30/2019) Colonoscopy Normal Normal Narrative Marta Adam - 07/30/2019 Repeat in 3 years Historical Provider MD HEALTH MAINTENANCE Final Result from Last 3 Months or Most Recently Relevant to Health Maintenance Additional Health Concerns Active Problems Noted Date Diagnosed Date Help patients manage their type 2 diabetes 02/24 Weekly blood pressure task 02/24/2025 Help patients manage their type 2 diabetes 02/24 Patient has chronic kidney disease 02/24/2025 Weekly blood pressure task 02/24/2025 Patient has chronic kidney disease 02/24/2025 Weekly blood pressure task 02/24/2025 Weekly blood pressure task 02/24/2025 Patient has chronic kidney disease 02/24/2025 Patient has chronic kidney disease 02/24/2025 Weekly blood pressure task 03/10/2025 Weekly blood pressure task 03/10/2025 Patient has chronic kidney disease 03/10/2025 Patient has chronic kidney disease 03/10/2025 Weekly blood pressure task 03/10/2025 Weekly blood pressure task 03/10/2025 Patient has chronic kidney disease 03/10/2025 Patient has chronic kidney disease 03/10/2025 Weekly blood pressure task 03/10/2025 Weekly blood pressure task 03/10/2025 Patient has chronic kidney disease 03/10/2025 Patient has chronic kidney disease 03/10/2025 Weekly blood pressure task 03/11/2025 Weekly blood pressure task 03/11/2025 Patient has chronic kidney disease 03/11/2025 Patient has chronic kidney disease 03/11/2025 Insurance [facility] [address] [id number] Care Teams Patient Account Liaison Relationship Specialty Start Date End Date Ashanti August BREAD BAKER [address] [place] [phone] PCP - General Family Medicine 11/24/21 Jeff Villarreal FNP [address] [place] [phone] Nurse Practitioner Family Medicine 02/20/23 Juan Holbrook, PharmD [address] [place] [phone] Pharmacist Pharmacy 03/10/25
--- OUTSIDE RECORDS SUMMARY | 2025-03-19 14:59 | XMS_ITS | Encounter Summary ---
Author Organization [employer] Address [address] [place] [address] 7 [place] [address] Care Team Providers Care Flight Operation Coordinator Name Role Phone Ashanti August COATING TECHNICIAN Primary Care Provider [phone] Jeff Villarreal Unavailable Unavailable Juan Holbrook PharmD Unavailable [phone] Encounter Details Date Type Department Care Team (Late st Contact Info) Description 03/24/2022 Orders Only [facility] [address] [place], [place] [phone] Isabel Escalante LPN Social History Tobacco Use [...] Description 04/14/2025 11:00 AM EST Medication Management [facility] [address] [place], [place] [phone] Juan Holbrook, PharmD 230 [place] [address] documented as of this encounter Visit Diagnoses Not on filedocumented in this encounter Care Teams Flight Operation Coordinator Relationship Specialty Start Date End Date Ashanti August FNP [address] [place] [address] PCP - General Family Medicine 11/24/21 Jeff Villarreal FNP [address] [place] [address] Nurse Practitioner Family Medicine 02/20/23 Juan Holbrook, KeithD [address] [place] [address] Pharmacist Pharmacy 03/10/25 documented as of this encounter
--- OUTSIDE RECORDS SUMMARY | 2025-03-19 14:59 | XMS_ITS | Encounter Summary ---
Author Organization [employer] Address [address] [facility] 7t [place] [address] Care Team Providers Care Pickling Tank Operator Name Role Phone Ashanti August BOXCAR WEIGHER Primary Care Provider [phone] Jeff Villarreal BOXCAR WEIGHER Unavailable Unavailable Juan Holbrook PharmD Unavailable [phone] Encounter Details Date Type Department Care Team (Late st Contact Info) Description 03/29/2024 Telephone [facility] [address] [place] [address] Heriberto العراقي PharmD Social History Tobacco Use Types Packs/Day Years [...] Description 04/14/2025 11:00 AM EST Medication Management [facility] [address] [place], [place] [phone] Juan Holbrook, Karin [address] [place], [place] documented as of this encounter Visit Diagnoses Not on filedocumented in this encounter Additional Health Concerns Assessment Noted Time PHQ-9 Depression Total Score: 0 12/20/19 24 10:36 AM EDT documented as of this encounter Care Teams Pickling Tank Operator Relationship Specialty Start Date End Date Ashanti August FNP [address] [place] [address] PCP - General Family Medicine 11/24/21 Jeff Villarreal FNP [address] [place] [address] Nurse Practitioner Family Medicine 02/20/23 Juan Holbrook, PharmD [address] [place] [address] Pharmacist Pharmacy 03/10/25 documented as of this encounter
--- OUTSIDE RECORDS SUMMARY | 2025-03-19 14:59 | XMS_ITS | Encounter Summary ---
Author Organization [employer] Address [address] [place] [address] 7[address] [place] [address] Care Team Providers Care Model Builder Name Role Phone Ashanti August [facility] Primary Care Provider [phone] Jeff Villarreal SOLAR PROJECT ENGINEER Unavailable Unavailable Juan Holbrook PharmD Unavailable [phone] Reason for Visit * Reason Onset Date Comments Hospital Follow-up 06/14/2024 Encounter Details Date Type Department Care Team (Late st Contact Info) Description 06/14/2024 Telephone [facility] MEDICINE 230 [place], [place] [phone] [place] [facility] [address] [place], [place] [phone] Hospital Follow-up Social History Tobacco Use Types [...] from pt requesting a HDF appt. Hospital: [facility] Date of admission: 06/09/24 Discharge date: 06/13/24 Diagnosed: Hemotma *Send message to [facility] Clinical Care Coordinators documented in this encounter Plan of Treatment Upcoming Encounters Date Type Department Care Team (Late st Contact Info) Description 04/14/2025 11:00 AM EST Medication Management [facility] 230 [place] [address] Juan Holbrook, PharmD 230 [place] [address] documented as of this encounter Visit Diagnoses Not on filedocumented in this encounter Additional Health Concerns Assessment Noted Time PHQ-9 Depression Total Score: 0 04/24/19 10:11 AM EST documented as of this encounter Care Teams Model Builder Relationship Specialty Start Date End Date Ashanti August FNP [address] [place] [address] PCP - General Family Medicine 11/24/21 Jeff Villarreal FNP [address] [place] [address] Nurse Practitioner Family Medicine 02/20/23 Juan Holbrook, KeithD [address] [place] [address] Pharmacist Pharmacy 03/10/25 documented as of this encounter
--- OUTSIDE RECORDS SUMMARY | 2025-03-19 14:59 | XMS_ITS | Encounter Summary ---
Author Organization [employer] Address [address] [place] [address] 7[address] [place] [address] Care Team Providers Care Bone Char Puller Name Role Phone Asahnti August CUT AND PRINT MACHINE OPERATOR Primary Care Provider [phone] Jeff Villarreal CUT AND PRINT MACHINE OPERATOR Unavailable Unavailable Juan Holbrook PharmD Unavailable [phone] Encounter Details Date Type Department Care Team ([facility] Contact Info) Description 05/03/2022 Orders Only [facility] [address] [place], [place] [phone] Elizabeth Meadows LPN Social History Tobacco Use [...] Upcoming Encounters Date Type Department Care Team ([facility] Contact Info) Description 04/14/2025 11:00 AM EST Medication Management [facility] [address] [place], [place] [phone] Juan Holbrook, PharmD [address] [place] [address] documented as of this encounter Visit Diagnoses Not on filedocumented in this encounter Additional Health Concerns Assessment Noted Time PHQ-9 Depression Total Score: 13 023 2:44 PM EST documented as of this encounter Care Teams Bone Char Puller Relationship Specialty Start Date End Date Ashanti August FNP [address] [place] [address] PCP - General Family Medicine 11/24/21 Jeff Villarreal FNP [address] [place] [address] Nurse Practitioner Family Medicine 02/20/23 Juan Holbrook, PharmD [address] [place] [address] Pharmacist Pharmacy 03/10/25 documented as of this encounter
--- OUTSIDE RECORDS SUMMARY | 2025-03-19 14:59 | XMS_ITS | Encounter Summary ---
Author Organization [employer] Address [address] [place] [address] 7t [place] [address] Care Team Providers Care Leaf Stamper Name Role Phone [place], [facility] Primary Care Provider [phone] Jeff Villarreal MONOMER RECOVERY OPERATOR Unavailable Unavailable Juan Holbrook PharmD Unavailable [phone] Reason for Visit * Reason Comments Med Refill Encounter Details Date Type Department Care Team (Late st Contact Info) Description 03/29/2024 Refill [facility] MEDICINE 230 [place], [place] [phone] [facility] 230 [place] [address] Primary hypertension Social History Tobacco Use Types [...] Description 04/14/2025 11:00 AM EST Medication Management [facility] [address] [place] [address] Juan Holbrook, PharmD [address] [place] [address] documented as of this encounter Visit Diagnoses Diagnosis Primary hypertension Unspecified essential hypertension documented in this encounter Additional Health Concerns Assessment Noted Time PHQ-9 Depression Total Score: 0 12/20/19 24 10:36 AM EDT documented as of this encounter Care Teams Leaf Stamper Relationship Specialty Start Date End Date Ashanti August FNP [address] [place] [address] PCP - General Family Medicine 11/24/21 Jeff Villarreal FNP [address] [place] [address] Nurse Practitioner Family Medicine 02/20/23 Juan Holbrook, PharmD [address] [place] [address] Pharmacist Pharmacy 03/10/25 documented as of this encounter
--- OUTSIDE RECORDS SUMMARY | 2025-03-19 15:00 | XMS_ITS | Encounter Summary ---
Author Organization [employer] Address [address] [place] [address] 7[address] [place] [address] Care Team Providers Care Estimator Project Manager Name Role Phone Ashanti August CYBER WORKFORCE DEVELOPER AND MANAGER Primary Care Provider [phone] Jeff Villarreal Unavailable Unavailable Juan Holbrook PharmD Unavailable [phone] Reason for Visit * Reason Comments Med Refill Encounter Details Date Type Department Care Team (Late st Contact Info) Description 10/16/2022 Refill [facility] MEDIC[facility] [address] [place] [address] Jeff Villarreal FNP Depression, unspecified depression type [...] Description 04/14/2025 11:00 AM EST Medication Management [facility] [address] [place] [address], [place] [address] Juan Holbrook, PharmD 230 [place] [address] documented as of this encounter Visit Diagnoses Diagnosis Depression, unspecified depression type documented in this encounter Additional Health Concerns Assessment Noted Time PHQ-9 Depression Total Score: 13 023 2:44 PM EST documented as of this encounter Care Teams Estimator Project Manager Relationship Specialty Start Date End Date MataAshanti garcia FNP [address] [place] [address] PCP - General Family Medicine 11/24/21 Jeff Villarreal FNP [address] [place] [address] Nurse Practitioner Family Medicine 02/20/23 Juan Holbrook, PharmD [address] [place] [address] Pharmacist Pharmacy 03/10/25 documented as of this encounter
--- OUTSIDE RECORDS SUMMARY | 2025-03-19 15:00 | XMS_ITS | Encounter Summary ---
Author Organization [employer] Address [address] [place] [address] 7 [place] [address] Care Team Providers Care Carpet Installation Specialist Name Role Phone Ashanti August REGISTERED NURSE CARDIAC TELEMETRY Primary Care Provider [phone] Jeff Villarreal REGISTERED NURSE CARDIAC TELEMETRY Unavailable Unavailable Juan Holbrook PharmD Unavailable [phone] Reason for Visit * Reason Onset Date Comments ER Follow-up 04/25/2023 Encounter Details Date Type Department Care Team (Late st Contact Info) Description 04/25/2023 Telephone [facility] MEDICINE [address] [place], [place] [phone] Mata Ashanti [facility] 230 [place], [place] [phone] ER Follow-up Social History Tobacco Use Types [...] 04/25/2023 9:39 AM EST Pt. Admitted to [facility] 04/19-04/21 for acute hyperkalemia, UTI and metabolic encephalopathy. Please contact for HDF, thank you! * Telephone Encounter - Kem Carrillo - 04/25/2023 9:24 AM EST Patient calling to report ED visit on : Date: 04/19/23 Hospital: [facility] Seen for: UTI Patient advised will forward to team nurse for follow up documented in this encounter Plan of Treatment Upcoming Encounters Date Type Department Care Team (Late st Contact Info) Description 04/14/2025 11:00 AM EST Medication Management [facility] MEDIC[facility] [address] [place] [address] Juan Holbrook, PharmD 230 [place], [place] [phone] documented as of this encounter Visit Diagnoses Not on filedocumented in this encounter Additional Health Concerns Assessment Noted Time PHQ-9 Depression Total Score: 7 04/13/19 24 8:57 AM EST documented as of this encounter Care Teams Carpet Installation Specialist Relationship Specialty Start Date End Date Ashanti August FNP [address] [place] [address] PCP - General Family Medicine 11/24/21 Jeff Villarreal FNP [address] [place] [address] Nurse Practitioner Family Medicine 02/20/23 Juan Holbrook, KeithD [address] [place] [phone] Pharmacist Pharmacy 03/10/25 documented as of this encounter
--- OUTSIDE RECORDS SUMMARY | 2025-03-19 15:00 | XMS_ITS | Encounter Summary ---
Author Organization [employer] Address [address] [place] [address] 7t [place] [address] Care Team Providers Care Nursing Consultant Name Role Phone Ashanti August CONTINUITY MANAGER Primary Care Provider [phone] Jeff Villarreal CONTINUITY MANAGER Unavailable Unavailable Juan Holbrook PharmD Unavailable [phone] Encounter Details Date Type Department Care Team (Late st Contact Info) Description 03/19/2025 Orders Only [facility] EXTERNAL DATA DEPARTMENT Provider, Generic External Data Social History Tobacco Use Types Packs/Day Years [...] Description 04/14/2025 11:00 AM EST Medication Management [facility] 230 [place] [address] Juan Holbrook, KeithD [address] [place] [address] documented as of this encounter Goals Goal Patient Goal Type Associated Problems Recent Progress Patient-Stated? Author Help patients manage their type 2 diabetes Care Plan Help patients manage their type 2 diabetes No Mary Cruz PharmDinah Weekly blood pressure task Care Plan Weekly blood pressure task No Mary Cruz, PharmD Help patients manage their type 2 diabetes Care Plan Help patients manage their type 2 diabetes No Mary Cruz, PharmD Patient has chronic kidney disease Care Plan Patient has chronic kidney disease No Mary Cruz, PharmDinah Weekly blood pressure task Care Plan Weekly blood pressure task No Mary Cruz, PharmD Patient has chronic [...] blood pressure task No Juan Holbrook PharmD Weekly blood pressure task Care Plan Weekly blood pressure task No Juan Holbrook PharmDinah Patient has chronic kidney disease Care Plan Patient has chronic kidney disease No Juan Holbrook PharmDinah Patient has chronic kidney disease Care Plan Patient has chronic kidney disease No Juan Holbrook PharmDinah Weekly blood pressure task Care Plan Weekly blood pressure task No [place], Ashanti, CONTINUITY MANAGER Weekly blood pressure task Care Plan Weekly blood pressure task No Mata, Ashanti, CONTINUITY MANAGER Patient has chronic kidney disease Care Plan Patient has chronic kidney disease No Mata, Ashanti, CONTINUITY MANAGER Patient has chronic kidney disease Care Plan Patient has chronic kidney disease No [place], Ashanti, CONTINUITY MANAGER Weekly blood pressure task Care Plan Weekly blood pressure task No Mata, Ashanti, CONTINUITY MANAGER Weekly blood pressure task Care Plan Weekly blood pressure task No Mata, Ashanti, CONTINUITY MANAGER Patient has chronic kidney disease Care Plan Patient has chronic kidney disease No [place], Ashanti, CONTINUITY MANAGER Patient has chronic kidney disease Care Plan Patient has chronic kidney disease No Mata, Ashanti, CONTINUITY MANAGER Weekly blood pressure task Care Plan Weekly blood pressure task No Reina France Weekly blood pressure task Care Plan Weekly blood pressure task No Reina France Patient has chronic kidney disease Care Plan Patient has chronic kidney disease No Reina France Patient has chronic kidney disease Care Plan Patient has chronic kidney disease No Reina France documented as of this encounter Procedures Procedure Name Priority Date/Time Associated Diagnosis Comments FOLATE, SERUM Routine 03/19/2025 12:27 PM EST BILIRUBIN, DIRECT Routine 03/19/2025 12: 27 PM EST BILIRUBIN, TOTAL Routine 03/19/2025 12:2 7 PM EST documented in this encounter Results * Folate, Serum (03/19/2025 12:27 PM EST) Folate 5.5 > or = 4.0 ng/mL [facility] Comment:Reference Values:> o r = 4.0 ng/mL< 4.0 ng/mL suggests folate deficiency Methotrexate, aminopterin and folinic acid(leucovorin) are chemotherapeutic agents whose molecularstructures are similar to folate; therefore, the Architectfolate assay cannot be used for patients using these drugs. 03/19/2025 12:2 7 PM EST 03/19/2025 12:27 PM EST Generic External Data Provider LAB BLOOD ORDERAB LES Final Result Performing Organization Address [facility] Co de Phone Number [facility] [address] [place] [phone] * (ABNORMAL) Bilirubin, Direct (03/19/2025 12:27 PM EST) Bilirubin, Direct 0.6(H) 0.0 - 0.5 mg/dL [facility] 03/19/2025 12:2 7 PM EST 03/19/2025 12:27 PM EST Generic External Data Provider LAB BLOOD ORDERAB LES Final Result Performing Organization Address [facility] Phone Number [facility] [address] [place] [phone] * (ABNORMAL) Bilirubin, Total (03/19/2025 12:27 PM EST) Bilirubin, Total 1.3(H) 0.0 - 1.0 mg/dL [facility] 03/19/2025 12:2 7 PM EST 03/19/2025 12:27 PM EST Generic External Data Provider LAB BLOOD ORDERAB LES Final Result Performing Organization Address [facility] Phone Number [facility] [address] [place] [phone] documented in this encounter Visit Diagnoses Not on filedocumented in this encounter Additional Health Concerns Active Problems Noted Date [...] 03/11/2025 Patient has chronic kidney disease 03/11/2025 Assessment Noted Time PHQ-9 Depression Total Score: 8 11/07/19 11:00 AM EDT documented as of this encounter Care Teams Nursing Consultant Relationship Specialty Start Date End Date [facility] [address] [place] [address] PCP - General Family Medicine 11/24/21 Jeff Villarreal FNP [address] [place] [address] Nurse Practitioner Family Medicine 02/20/23 Juan Holbrook, KeithD [address] [place] [address] Pharmacist Pharmacy 03/10/25 documented as of this encounter
--- OUTSIDE RECORDS SUMMARY | 2025-03-19 15:00 | XMS_ITS | Encounter Summary ---
Author Organization [employer] Address [address] [place] [address] 7t [place] [address] Care Team Providers Care Household Cook Name Role Phone Ashanti August SPECIAL EDUCATION SUPERINTENDENT Primary Care Provider [phone] Jeff Villarreal Unavailable Unavailable Juan Holbrook PharmD Unavailable [phone] Reason for Visit * Reason Comments Med Refill Encounter Details Date Type Department Care Team (Late st Contact Info) Description 07/30/2023 Refill [facility] MEDICINE 230 [place] [address] Jeff Villarreal FNP Depression, unspecified depression type [...] Description 04/14/2025 11:00 AM EST Medication Management [facility] MEDICINE 230 [place] [address] Juan Holbrook, PharmD [address] [place] [address] documented as of this encounter Visit Diagnoses Diagnosis Depression, unspecified depression type documented in this encounter Additional Health Concerns Assessment Noted Time PHQ-9 Depression Total Score: 9 07/05/19 24 4:20 PM EDT documented as of this encounter Care Teams Household Cook Relationship Specialty Start Date End Date Ashanti August FNP [address] [place] [address] PCP - General Family Medicine 11/24/21 Jeff Villarreal FNP [address] [place] [address] Nurse Practitioner Family Medicine 02/20/23 Juan Holbrook, PharmD [address] [place] [address] Pharmacist Pharmacy 03/10/25 documented as of this encounter
--- OUTSIDE RECORDS SUMMARY | 2025-03-19 15:00 | XMS_ITS | Encounter Summary ---
Author Organization [employer] Address [address] [place] [address] 7 [place] [address] Care Team Providers Care Special Effects Technician Name Role Phone Ashanti August CLOTHING PATTERNMAKER Primary Care Provider [phone] Jeff Villarreal CLOTHING PATTERNMAKER Unavailable Unavailable Juan Holbrook PharmD Unavailable [phone] Reason for Referral * Consultation (Routine) - Authorized Specialty Diagnoses / Procedures Referred By Vidhya pritchard Referred To Contact Pharmacy Diagnoses Type 2 diabetes mellitus with stage 3a chronic kidney disease, without long-term current use of insulin (HCC) Kirsten Page MD [address] [place] [address] Phone: tel: fax: Referral ID Status Reason Start Date Expiration Date Visits Requested Visits Authorized [id number] Authorized Consult and Treat 02/24/2025 02/24/2026 6 6 Encounter Details Date Type Department Care Team (Late st Contact Info) Description 02/24/2025 Orders Only [facility] MEDICINE [address] [place] [address] [phone] Kirsten Page MD [address] [place], [place] [phone] Type 2 diabetes mellitus with stage 3a chronic kidney disease, without long-term current use of insulin (HCC) (Primary Dx) Social History Tobacco Use Types Packs/Day Years [...] Description 04/14/2025 11:00 AM EST Medication Management [facility] [address] [place] [address] [phone] Juan Holbrook, KeithD [address] [place] [address] Scheduled Referrals Name Type Priority Associated Diagnoses Orde r Schedule Referral to Pharmacy CDTM Outpatient Referral Routine Type 2 diabetes mellitus with stage 3a chronic kidney disease, without long-term current use of insulin (HCC) Ordered: 02/24/2025 documented as of this encounter Goals Goal Patient Goal Type Associated Problems Recent Progress Patient-Stated? Author Help patients manage their type 2 diabetes Care Plan Help patients manage their type 2 diabetes No Mary Cruz PharmD Weekly blood pressure task Care Plan Weekly blood pressure task No Mary Cruz PharmDinah Help patients manage their type 2 diabetes Care Plan Help patients manage their type 2 diabetes No Mary Cruz PharmDinah Patient has chronic kidney disease Care Plan Patient has chronic kidney disease No Mary Cruz PharmD Weekly blood pressure task Care Plan Weekly blood pressure task No Mary Cruz PharmDinah Patient has chronic kidney disease Care Plan Patient has chronic kidney disease No Mary Cruz PharmD Weekly blood pressure task Care Plan Weekly blood pressure task No Kirsten Page MD Weekly blood pressure task Care Plan Weekly blood pressure task No Kirsten Page MD Patient has chronic kidney disease Care Plan Patient has chronic kidney disease No Kirsten Page MD Patient has chronic kidney disease Care Plan Patient has chronic kidney disease No Kirsten Page MD documented as of this encounter Visit Diagnoses Diagnosis Type 2 diabetes mellitus with stage 3a chronic kidney disease, without long-term current use of insulin (HCC)- Primary documented in this encounter Additional Health Concerns Active [...] 02/24/2025 Patient has chronic kidney disease 02/24/2025 Assessment Noted Time PHQ-9 Depression Total Score: 8 11/07/19 25 11:00 AM EDT documented as of this encounter Care Teams Special Effects Technician Relationship Specialty Start Date End Date [facility] [address] [place] [address] PCP - General Family Medicine 11/24/21 Jeff Villarreal FNP [address] [place] [address] Nurse Practitioner Family Medicine 02/20/23 Juan Holbrook, KeithD [address] [place] [phone] Pharmacist Pharmacy 03/10/25 documented as of this encounter
--- OUTSIDE RECORDS SUMMARY | 2025-03-19 15:00 | XMS_ITS | Encounter Summary ---
Author Organization [email or web address] Address [address] [place] [address] 7t [place] [address] Care Team Providers Care Aquatic Scientist Name Role Phone Mata [facility] Primary Care Provider Jeff Villarreal ELECTROLOG OPERATOR Unavailable Unavailable Juan Holbrook PharmD Unavailable [phone] Reason for Visit * Reason Comments Med Refill Encounter Details Date Type Department Care Team (Late st Contact Info) Description 11/01/2023 Refill [facility] [address] [place], [place] [phone] [place] [facility] 230 [place], [place] [phone] Chronic obstructive pulmonary disease, unspecified COPD type [...] Description 04/14/2025 11:00 AM EST Medication Management [facility] [address] [place] [address] Juan Holbrook, Karin 230 [place] [address] documented as of this encounter Visit Diagnoses Diagnosis Chronic obstructive pulmonary disease, unspecified COPD type (CMS/HCC) (HCC) documented in this encounter Additional Health Concerns Assessment Noted Time PHQ-9 Depression Total Score: 15 024 10:15 AM EDT documented as of this encounter Care Teams Aquatic Scientist Relationship Specialty Start Date End Date Ashanti August FNP [address] [place] [address] PCP - General Family Medicine 11/24/21 Jeff Villarreal FNP [address] [place] [address] Nurse Practitioner Family Medicine 02/20/23 Juan Holbrook, PharmD [address] [place] [address] Pharmacist Pharmacy 03/10/25 documented as of this encounter
--- OUTSIDE RECORDS SUMMARY | 2025-03-19 15:00 | XMS_ITS | Encounter Summary ---
Author Organization [employer] Address [address] [place] [address] 7t [place] [address] Care Team Providers Care Flanging Operator Name Role Phone [place], [facility] Primary Care Provider [phone] Jeff Villarreal EXHAUST EMISSIONS INSPECTOR Unavailable Unavailable Juan Holbrook PharmD Unavailable [phone] Reason for Visit * Reason Comments Med Refill Encounter Details Date Type Department Care Team (Late st Contact Info) Description 03/28/[address] [facility] [address] [place], [place] [phone] [facility] 230 [place] [address] Primary hypertension Social History Tobacco Use Types [...] Description 04/14/2025 11:00 AM EST Medication Management [facility] [address] [place] [address] Juan Holbrook, PharmD 230 [place] [address] documented as of this encounter Visit Diagnoses Diagnosis Primary hypertension Unspecified essential hypertension documented in this encounter Additional Health Concerns Assessment Noted Time PHQ-9 Depression Total Score: 0 12/20/19 24 10:36 AM EDT documented as of this encounter Care Teams Flanging Operator Relationship Specialty Start Date End Date Ashanti August FNP [address] [place] [address] PCP - General Family Medicine 11/24/21 Jeff Villarreal FNP [address] [place] [address] Nurse Practitioner Family Medicine 02/20/23 Juan Holbrook, PharmD 230 [place] [address] Pharmacist Pharmacy 03/10/25 documented as of this encounter
--- OUTSIDE RECORDS SUMMARY | 2025-03-19 15:00 | XMS_ITS | Encounter Summary ---
Author Organization [employer] Address [address] [facility] 7t [place] [address] Care Team Providers Care Disbursement Clerk Name Role Phone [place] [facility] Primary Care Provider [phone] Jeff Villarreal HUMAN DEVELOPMENT PROFESSOR Unavailable Unavailable Juan Holbrook PharmD Unavailable [phone] Encounter Details Date Type Department Care Team (Late st Contact Info) Description 09/17/2024 Refill [facility] [address] [place], [place] [phone] [facility] 230 [place] [address] Social History Tobacco Use Types Packs/Day Years [...] Description 04/14/2025 11:00 AM EST Medication Management [facility] 230 [place] [address] Juan Holbrook, PharmD 230 [place] [address] documented as of this encounter Visit Diagnoses Not on filedocumented in this encounter Additional Health Concerns Assessment Noted Time PHQ-9 Depression Total Score: 0 04/24/19 25 10:11 AM EST documented as of this encounter Care Teams Disbursement Clerk Relationship Specialty Start Date End Date Ashanti August FNP [address] [place] [address] PCP - General Family Medicine 11/24/21 Jeff Villarreal FNP [address] [place] [address] Nurse Practitioner Family Medicine 02/20/23 Juan Holbrook, PharmD 230 [place] [address] Pharmacist Pharmacy 03/10/25 documented as of this encounter
--- OUTSIDE RECORDS SUMMARY | 2025-03-19 15:00 | XMS_ITS | Encounter Summary ---
Author Organization [employer] Address [address] [place] [address] 7t [place] [address] Care Team Providers Care Ring Striker Name Role Phone Ashanti August BANK COMPLIANCE OFFICER Primary Care Provider [phone] Jeff Villarreal Unavailable Unavailable Juan Holbrook PharmD Unavailable [phone] Reason for Visit * Reason Comments Med Refill Encounter Details Date Type Department Care Team (Late st Contact Info) Description 04/28/2023 Refill [facility] 230 [place] [address] Jeff Villarreal FNP Social History Tobacco Use [...] 04/14/2025 11:00 AM EST Medication Management [facility] 230 [place] [address] Juan Holbrook, PharmD 230 [place] [address] documented as of this encounter Visit Diagnoses Not on filedocumented in this encounter Additional Health Concerns Assessment Noted Time PHQ-9 Depression Total Score: 7 04/13/19 24 8:57 AM EST documented as of this encounter Care Teams Ring Striker Relationship Specialty Start Date End Date Ashanti August FNP 230 [place] [address] PCP - General Family Medicine 11/24/21 Jeff Villarreal FNP [address] [place] [address] Nurse Practitioner Family Medicine 02/20/23 Juan Holbrook, PharmD [address] [place] [address] Pharmacist Pharmacy 03/10/25 documented as of this encounter
--- OUTSIDE RECORDS SUMMARY | 2025-03-19 15:00 | XMS_ITS | Encounter Summary ---
Author Organization [employer] Address [address] [place] [address] 7 [place] [address] Care Team Providers Care Concrete Truck Driver Name Role Phone Ashanti August PLANNING CONSULTANT Primary Care Provider [phone] Jeff Villarreal PLANNING CONSULTANT Unavailable Unavailable Juan Holbrook PharmD Unavailable [phone] Reason for Visit * Reason Onset Date Comments Hospital Follow-up 07/28/2023 Encounter Details Date Type Department Care Team (Late st Contact Info) Description 07/28/2023 Telephone [facility] 230 [place], [place] [phone] [facility] [facility] 230 [place], [place] [phone] Hospital Follow-up Social History Tobacco Use Types [...] from pt requesting a HDF appt. Hospital: [facility] Date of admission: 07/19 Discharge date: 07/25 Diagnosed: Massive UTI documented in this encounter Plan of Treatment Upcoming Encounters Date Type Department Care Team (Late st Contact Info) Description 04/14/2025 11:00 AM EST Medication Management [facility] 230 [place] [address] Juan Holbrook, PharmD 230 [place] [address] documented as of this encounter Visit Diagnoses Not on filedocumented in this encounter Additional Health Concerns Assessment Noted Time PHQ-9 Depression Total Score: 9 07/05/19 24 4:20 PM EDT documented as of this encounter Care Teams Concrete Truck Driver Relationship Specialty Start Date End Date Ashanti August FNP 230 [place] [address] PCP - General Family Medicine 11/24/21 Jeff Villarreal FNP 230 [place] [address] Nurse Practitioner Family Medicine 02/20/23 Juan Holbrook, PharmD 230 [place] [address] Pharmacist Pharmacy 03/10/25 documented as of this encounter
--- OUTSIDE RECORDS SUMMARY | 2025-03-19 15:00 | XMS_ITS | Encounter Summary ---
Author Organization [employer] Address [address] [place] [address] 7t [place] [address] Care Team Providers Care Mica Splitter Name Role Phone [place], [facility] Primary Care Provider [phone] Jeff Villarreal AIR TRAFFIC CONTROL OPERATOR Unavailable Unavailable Juan Holbrook PharmD Unavailable [phone] Reason for Visit * Reason Comments Med Refill Encounter Details Date Type Department Care Team (Late st Contact Info) Description 03/29/2024 Refill [facility] 230 [place], [place] [phone] [facility] 230 [place] [address] Primary hypertension Social History Tobacco Use Types [...] Description 04/14/2025 11:00 AM EST Medication Management [facility] 230 [place] [address] Juan Holbrook, PharmD 230 [place] [address] documented as of this encounter Visit Diagnoses Diagnosis Primary hypertension Unspecified essential hypertension documented in this encounter Additional Health Concerns Assessment Noted Time PHQ-9 Depression Total Score: 0 12/20/19 24 10:36 AM EDT documented as of this encounter Care Teams Mica Splitter Relationship Specialty Start Date End Date Ashanti August FNP [address] [place] [address] PCP - General Family Medicine 11/24/21 Jeff Villarreal FNP [address] [place] [address] Nurse Practitioner Family Medicine 02/20/23 Juan Holbrook, PharmD 230 [place] [address] Pharmacist Pharmacy 03/10/25 documented as of this encounter
--- OUTSIDE RECORDS SUMMARY | 2025-03-19 15:00 | XMS_ITS | Encounter Summary ---
Author Organization [employer] Address [address] [place] [address] 7 [place] [address] Care Team Providers Care Cannery Tender Engineer Name Role Phone Ashanti August [facility] Primary Care Provider Jeff Villarreal PLATFORM SUPERVISOR Unavailable Unavailable Juan Holbrook PharmD Unavailable [phone] Reason for Visit * Reason Onset Date Comments Med Refill 04/04/2023 Encounter Details Date Type Department Care Team (Late st Contact Info) Description 04/04/2023 Telephone [facility] 230 [place], [place] [phone] MataAshanti [facility] 230 [place], [place] [phone] Med Refill Social History Tobacco Use Types [...] pended to PCP. * Telephone Encounter - [facility] [place] - 04/04/2023 10:21 AM EST TC from pt requesting medication refill. Medications needing refill : tiZANidine (Zanaflex) 2 MG tablet To be sent to: [facility] - [place], [place] - [address] [facility] documented in this encounter Plan of Treatment Upcoming Encounters Date Type Department Care Team ([facility] st Contact Info) Description 04/14/2025 11:00 AM EST Medication Management [facility] 230 [place] [address] Juan Holbrook, PharmD 230 [place] [address] documented as of this encounter Visit Diagnoses Not on filedocumented in this encounter Additional Health Concerns Assessment Noted Time PHQ-9 Depression Total Score: 0 03/06/20 23 12:04 PM EST documented as of this encounter Care Teams Cannery Tender Engineer Relationship Specialty Start Date End Date Ashanti August FNP [address] [place] [address] PCP - General Family Medicine 11/24/21 Jeff Villarreal FNP [address] [place] [address] Nurse Practitioner Family Medicine 02/20/23 Juan Holbrook, KeithD [address] [place] [address] Pharmacist Pharmacy 03/10/25 documented as of this encounter
--- OUTSIDE RECORDS SUMMARY | 2025-03-19 15:00 | XMS_ITS | Encounter Summary ---
Author Organization [employer] Address [address] [place] [address] 7t [place] [address] Care Team Providers Care Ballaster Name Role Phone Ashanti August BRAKE ADJUSTER Primary Care Provider Jeff Villarreal BRAKE ADJUSTER Unavailable Unavailable Juan Holbrook PharmD Unavailable [phone] Encounter Details Date Type Department Care Team (Late Contact Info) Description 11/07/2022 Orders Only [facility] CH[facility] MED & PEDS [address] [place] [address] Elizabeth Meadows LPN Social History Tobacco Use [...] Description 04/14/2025 11:00 AM EST Medication Management [facility] MEDICINE 230 [place], [place] [phone] Juan Holbrook, PharmD 230 [place], [place] [phone] documented as of this encounter Visit Diagnoses Not on filedocumented in this encounter Additional Health Concerns Assessment Noted Time PHQ-9 Depression Total Score: 10/25/ 023 10:26 AM EDT documented as of this encounter Care Teams Ballaster Relationship Specialty Start Date End Date Ashanti August FNP [address] [place] [address] PCP - General Family Medicine 11/24/21 Jeff Villarreal FNP [address] [place] [address] Nurse Practitioner Family Medicine 02/20/23 Juan Holbrook, KeithD [address] [place] [address] Pharmacist Pharmacy 03/10/25 documented as of this encounter
--- OUTSIDE RECORDS SUMMARY | 2025-03-19 15:00 | XMS_ITS | Clinical Summary ---
Author Organization [facility] Address [address] [place] [address] Care Team Providers Care Hotel Maintenance Technician Name Role Phone Pcp, No Primary Care [...] (11/24/2021): Added automatically from request for surgery [id number] Ischemic bowel disease 11/24/2021 Social History Tobacco [...] 50+ (1 of 1 - PCV) 08/24/2011 RSV Vaccine 50 years and old er and Patients (1 - Risk 50-74 years 1-dose series) 08/24/2011 Zoster (Shingles) Vaccine (1 of 2) 08/24/2011 Influenza Vaccine 11/01/2024 12/17/2012 COVID-19 Vaccine (1 - 2024-2 6 season) 2024 Hepatitis C Virus Screening Completed [...] Nonreactive Nonreactive S/CO 11/24/2021 11:21 AM EDT [facility] Hepatitis B Core Antibody IgM Nonreactive Nonreactive 11/24/2021 11:[address] [facility] Hepatitis B Surface Ag Screen Nonreactive Nonreactive 11/24/2021 11:[address] [facility] [facility] Hepatitis C Antibody 0.54 0.00 - 0.79 S/CO ratio 11/24/2021 11:[address] [facility] Hepatitis C Antibody Interpretation Nonreactive Nonreactive 11/24/2021 11:[address] [facility] Hepatitis Interpretation: Results inconsistent with acute Hepatitis A, B or C Virus infection. 11/24/2021 11:[address] [facility] Blood specimen (specimen) Serum specimen / Unknown 11/24/2021 6:13 AM EDT 11/24/2021 6:40 AM EDT us Mary Grace Huerta SENIOR LINUX SYSTEMS ENGINEER LAB BLOOD ORDERABLES Final R esult [facility] [address] [place] [address] from Last 3 Months or Most Recently Relevant to Health Maintenance Insurance MEDICAID OUT OF STATE [facility] MEDICARE OUT OF [facility] Advance Directives * Full Code (Latest Code Status on File) Date Activated Date Inactivated Comments 11/24/2021 3:35 AM 12/15/2021 3:20 PM Care Teams Hotel Maintenance Technician Relationship Specialty Start Date End Date Pcp, No PCP - General General Medicine 11/28/21
--- OUTSIDE RECORDS SUMMARY | 2025-03-19 15:00 | XMS_ITS | Encounter Summary ---
Author Organization [employer] Address [address] [facility] 7t [place] [address] Care Team Providers Care Global Clinical Leader Name Role Phone Ashanti August CABIN MAN Primary Care Provider [phone] Jeff Villarreal CABIN MAN Unavailable Unavailable Juan Holbrook PharmD Unavailable [phone] Encounter Details Date Type Department Care Team ([facility] st Contact Info) Description 02/21/2023 Orders Only [facility] MED & PEDS [address] [place] [address] Isabel Escalante LPN Social History Tobacco Use [...] 04/14/2025 11:00 AM EST Medication Management [facility]INE [address] [place] [address] Juan Holbrook, PharmD 230 [place] [address] documented as of this encounter Visit Diagnoses Not on filedocumented in this encounter Additional Health Concerns Assessment Noted Time PHQ-9 Depression Total Score: 14 023 9:52 AM EDT documented as of this encounter Care Teams Global Clinical Leader Relationship Specialty Start Date End Date Ashanti August FNP [address] [place] [address] PCP - General Family Medicine 11/24/21 Jeff Villarreal FNP [address] [place] [address] Nurse Practitioner Family Medicine 02/20/23 Juan Holbrook, PharmD [address] [place] [address] Pharmacist Pharmacy 03/10/25 documented as of this encounter
--- OUTSIDE RECORDS SUMMARY | 2025-03-19 15:00 | XMS_ITS | Clinical Summary ---
Author Organization [facility] Address [address] [place] [address] Care Team Providers Care Department Secretary Name Role Phone [facility] Primary Care Provider [phone] Allergies Active Allergy Reactions Criticality Noted Date [...] Exam 08/24/1971 Urine Microalbumin 08/24/1971 Mammogram 2001 RSV Vaccine (60+ years old a nd patients) (1 - Risk 50-74 years 1-dose series) 08/24/2011 Hepatitis B Vaccines (1 of 3 - Risk 3-dose series) 2021 Alcohol/Substance Use Screening 04/03/2024 Depression Screening and Follow-Up 04/03/2024 Social Drivers of Health April ual Screening 04/03/2024 Hemoglobin A1C 10/22/2024 04/24/2024 Influenza Vaccine (#1) 2024 , 01/02/2023, 12/24/2021, Additional history exists COVID-19 Vaccine (2024-2 6 season) 2024 01/31/2024, 02/14/2023, 02/28/2022, Additional history exists CT Lung Cancer Screening (Baseline) 06/09/2025 06/09/2024 Basic Metabolic Panel 06/12/2025 06/12/2024 , 06/11/2024, 06/10/2024, Additional history exists DTaP,Tdap,and Td Vaccines (3 - Td or Tdap) 01/17/2029 01/17/2019, 11/05/2014 Zoster Vaccines Completed 02/23/2021, 12/16/2020 HIV Screening Completed 09/08/2021, 09/08/2021 Pneumococcal Vaccine: 50+ Years Completed Hepatitis C Screening Completed 11/24/2021 Procedures * Due to [place] [employer] law, this organization might not be sharing negative HIV tests. Procedure Name Priority Date/Time Associated Diagnosis Comments BASIC METABOLIC PANEL Routine 06/12/2024 3:36 AM EDT from Last 3 Months or Most Recently Relevant to Health Maintenance Results * Due to [facility] law, this organization might not be sharing negative HIV tests. * (ABNORMAL) Basic metabolic panel (06/12/2024 3:36 AM EDT) NA 141 135 - 145 mmol/L 06/12/2024 4:11 AM EDT [facility] K 4.0 3.5 - 5.3 mmol/L 06/12/2024 4:11 AM EDT [facility] Cl 107 98 - 107 mmol/L 06/12/2024 4:11 AM EDT [facility] CO2 24 22 - 32 mmol/L 06/12/2024 4:11 AM EDT [facility] BUN 15 7 - 23 mg/dL 06/12/2024 4:11 AM EDT [facility] Creatinine 0.71 0.50 - 1.20 mg/dL 06/12/2024 4:11 AM EDT [facility] Glucose 140(H) 65 - 99 mg/dL 06/12/2024 4:11 AM EDT [facility] Calcium 9.1 8.6 - 10.5 mg/dL 06/12/2024 4:11 AM EDT [facility] Anion Gap 10 5 - 15 06/12/2024 4:11 AM EDT [facility] eGFR >90 >=60 mL/min/1. 73m2 06/12/2024 4:11 AM EDT [facility] Comment:The estimated glomer ular [...] MD LAB BLOOD ORDERABLES Final Res ult [facility] [address] [place] [address], [place] from Last 3 Months or Most Recently Relevant to Health Maintenance Insurance [facility] Advance Directives Documents on File Type Date Recorded Patient Gambling Broker Expl anation Health Care Proxy 06/10/2024 12:45 [...] Salmeron Spouse Health Care Agent Care Teams Department Secretary Relationship Specialty Start Date End Date [facility] [address] [place] [address] PCP - General 06/09/24
--- OUTSIDE RECORDS SUMMARY | 2025-03-19 15:00 | XMS_ITS | Encounter Summary ---
Author Organization [employer] Address [address] [facility] 7t [place] [address] Care Team Providers Care Vehicle Monitor Technician Name Role Phone Ashanti August BOILER SERVICE TECHNICIAN Primary Care Provider [phone] Jeff Villarreal BOILER SERVICE TECHNICIAN Unavailable Unavailable Juan Holbrook PharmD Unavailable [phone] Encounter Details Date Type Department Care Team (Late st Contact Info) Description 02/16/2023 Abstract [facility] [address] [place] [address] Marta Adam Social History Tobacco Use Types [...] 11:00 AM EST Medication Management [facility] [address] [place] [address] Juan Holbrook, Karin 230 [place] [address] documented as of this encounter Procedures Procedure [...] documented as of this encounter Care Teams Vehicle Monitor Technician Relationship Specialty Start Date End Date Ashanti August FNP 230 [place] [address] PCP - General Family Medicine 11/24/21 Jeff Villarreal FNP [address] [place] [address] Nurse Practitioner Family Medicine 02/20/23 Juan Holbrook, KeithD [address] [place] [address] Pharmacist Pharmacy 03/10/25 documented as of this encounter
== END 2025-03-19 11:19 | disposition home or self-care (01) ==
LOC: HO.HHCL 11:18
PROVIDERS: PCP Registered Nurse; Referring Provider Registered Nurse; Visit Provider Internal Medicine Gastroenterology
DX: D50.9 Iron deficiency anemia, unspecified (principal); K74.60 Unspecified cirrhosis of liver
CPT/HCPCS: 36415; 82247; 82248; 82728; 82746; 83540; 84630; 85025; 85045